=== PATIENT | female | born 1945 ===

== ENCOUNTER 2020-02-24 16:09 | Outpatient (REF) | payer MEDICARE, SELFPAY | END 2020-02-24 16:10 | disposition home or self-care (01) | LOC: HO.LAB 16:09 | PROVIDERS: PCP Internal Medicine; Visit Provider Internal Medicine | DX: Z20.828 Contact with and (suspected) exposure to other viral communicable diseases (principal) | CPT/HCPCS: U0003 ==

== ENCOUNTER 2020-03-01 10:38 | Outpatient (REF) | payer MEDICARE, SELFPAY ==
[2020-03-01 11:53] LABS: MANUAL DIFF FLAG NO
[2020-03-01 12:01] LABS: Basophils Percent Auto 0.2 % (0-2); Eosinophils Absolute Auto 0.1 X10*3/uL (0.0-0.4); Hematocrit 40.3 % (37-47); Hemoglobin 12.7 g/dl (12.0-16.0); Imm Gran Abs Auto 0.02 X10*3/uL (0.00-0.03); Imm Gran Pct Auto 0.4 % (0.0-0.4); Lymphocytes Absolute Auto 1.1 X10*3/uL (1.2-4.9); Lymphocytes Percent Auto 22.3 % (20-40); Mean Corpuscular HGB Conc 31.5 g/dl (31.0-35.0); Mean Corpuscular Hemoglobin 28.8 pg (27.0-33.0); Mean Corpuscular Volume 91.4 fL (80-98); Monocytes Absolute Auto 0.5 X10*3/uL (0.1-1.2); Monocytes Percent Auto 10.5 % (2-11); Neutrophils Absolute Auto 3.2 X10*3/uL (2.0-8.3); Neutrophils Percent Auto 65.6 % (45-73); Platelet Count 231 X10*3/uL (160-400); Red Blood Count 4.41 X10*6/uL (4.20-5.50); Red Cell Distribution Width 14.6 % (11.0-16.0); White Blood Count 4.9 X10*3/uL (4.8-10.8)
[2020-03-01 12:32] LABS: Alanine Aminotransferase 20 U/L (0-31); Albumin Level 4.2 g/dL (3.5-5.0); Alkaline Phosphatase 101 U/L (39-117); Anion Gap 11 (12-20); Aspartate Amino Transferase 21 U/L (5-31); Bilirubin Total 0.3 mg/dL (0.0-1.0); Blood Urea Nitrogen 26 mg/dL (9-16); C Reactive Protein 0.32 mg/dL (< or = 0.50); Calcium 9.2 mg/dL (8.4-10.2); Carbon Dioxide 29 mmol/L (22-29); Chloride 103 mmol/L (96-108); Estimated Glomerular Filt Rate 36; Glucose Random 77 mg/dL (60-115); Potassium 4.9 mmol/l (3.3-5.1); Sodium 138 mmol/L (135-145); Total Protein 7.8 g/dL (6.5-8.0)
[2020-03-01 12:57] LABS: Erythrocyte Sedimentation Rate 30 MM/HR (0-20)
[2020-03-02 11:56] LABS: Complement C3 107 mg/dL (83-193)
[2020-03-02 16:36] LABS: IgA 487 mg/dL (70-320); IgG 1626 mg/dL (600-1540); IgM 116 mg/dL (50-300)
[2020-03-03 08:47] LABS: Prot Elec - Albumin 3.9 g/dL (3.8-4.8); Prot Elec - Alpha1 0.3 g/dL (0.2-0.3); Prot Elec - Alpha2 0.7 g/dL (0.5-0.9); Prot Elec - Beta 1 0.5 g/dL (0.4-0.6); Prot Elec - Beta 2 0.5 g/dL (0.2-0.5); Prot Elec - Gamma 1.5 g/dL (0.8-1.7); Prot Elec - Total Protein 7.3 g/dL (6.1-8.1)
[2020-03-03 09:11] LABS: Anti DNA DS Antibody 3 IU/mL
== END 2020-03-01 10:39 | disposition home or self-care (01) ==
LOC: HO.LAB 10:38
PROVIDERS: PCP Internal Medicine; Visit Provider Student in an Organized Health Care Education/Training Program
DX: M35.00 Sjogren syndrome, unspecified (principal); R76.8 Other specified abnormal immunological findings in serum; I73.00 Raynaud's syndrome without gangrene
CPT/HCPCS: 36415; 80053; 82784; 84155; 84165; 85025; 85652; 86140; 86160; 86225; 86334

== ENCOUNTER → 2020-03-04 09:54 | Outpatient (BNVA) | payer MEDICARE, SELFPAY | PROVIDERS: PCP Internal Medicine; Referring Provider Internal Medicine; Visit Provider Student in an Organized Health Care Education/Training Program | DX: M35.00 Sjogren syndrome, unspecified (principal); R76.8 Other specified abnormal immunological findings in serum; I73.00 Raynaud's syndrome without gangrene | CPT/HCPCS: 99212 ==

== ENCOUNTER 2020-03-12 13:02 | Outpatient (REF) | payer MEDICARE, SELFPAY | END 2020-03-12 13:03 | disposition home or self-care (01) | LOC: HO.LAB 13:02 | PROVIDERS: Visit Provider Internal Medicine | DX: Z20.828 Contact with and (suspected) exposure to other viral communicable diseases (principal) | CPT/HCPCS: C9803; U0003 ==

== ENCOUNTER 2020-03-22 10:27 | Outpatient (REF) | payer MEDICARE, SELFPAY ==
[2020-03-22 11:58] LABS: MANUAL DIFF FLAG NO
[2020-03-22 12:00] LABS: Basophils Percent Auto 0.2 % (0-2); Eosinophils Absolute Auto 0.1 X10*3/uL (0.0-0.4); Hematocrit 38.7 % (37-47); Hemoglobin 12.2 g/dl (12.0-16.0); Imm Gran Abs Auto 0.01 X10*3/uL (0.00-0.03); Imm Gran Pct Auto 0.2 % (0.0-0.4); Lymphocytes Percent Auto 19.6 % (20-40); Mean Corpuscular HGB Conc 31.5 g/dl (31.0-35.0); Mean Corpuscular Hemoglobin 28.6 pg (27.0-33.0); Mean Corpuscular Volume 90.6 fL (80-98); Mean Platelet Volume 11.2 fL (9.4-12.3); Monocytes Absolute Auto 0.5 X10*3/uL (0.1-1.2); Monocytes Percent Auto 9.4 % (2-11); Neutrophils Absolute Auto 3.4 X10*3/uL (2.0-8.3); Neutrophils Percent Auto 69.6 % (45-73); Platelet Count 228 X10*3/uL (160-400); Red Blood Count 4.27 X10*6/uL (4.20-5.50); Red Cell Distribution Width 13.9 % (11.0-16.0); White Blood Count 4.9 X10*3/uL (4.8-10.8)
[2020-03-22 12:24] LABS: Alanine Aminotransferase 15 U/L (0-31); Albumin Level 3.9 g/dL (3.5-5.0); Alkaline Phosphatase 81 U/L (39-117); Anion Gap 13 (12-20); Aspartate Amino Transferase 21 U/L (5-31); Bilirubin Total 0.4 mg/dL (0.0-1.0); Blood Urea Nitrogen 24 mg/dL (9-16); C Reactive Protein 0.32 mg/dL (< or = 0.50); Calcium 9.1 mg/dL (8.4-10.2); Carbon Dioxide 28 mmol/L (22-29); Chloride 102 mmol/L (96-108); Estimated Glomerular Filt Rate 42; Glucose Random 78 mg/dL (60-115); Potassium 4.8 mmol/l (3.3-5.1); Sodium 138 mmol/L (135-145); Total Protein 7.6 g/dL (6.5-8.0)
[2020-03-22 12:48] LABS: Glucose Urine UA NEG (NEG); Leukocyte Esterase Urine NEG (NEG); Nitrite Urine NEG (NEG); Specific Gravity - Urine <= 1.005 (1.005-1.025); Urine Blood NEG (NEG); Urine Ketones NEG (NEG); Urine Protein NEG (NEG-TRACE)
[2020-03-22 12:49] LABS: Appearance Urine CLEAR; Color Urine YELLOW
[2020-03-22 12:56] LABS: Erythrocyte Sedimentation Rate 31 MM/HR (0-20)
[2020-03-22 13:00] LABS: Mucus Urine TRACE /LPF; RBC Urine 0 /HPF (0); Squamous Epithelial Cell Urine 2+ /LPF; WBC Urine 0 /HPF (0-4)
[2020-03-23 12:08] LABS: Complement C3 115 mg/dL (83-193)
[2020-03-23 12:33] LABS: Anti DNA DS Antibody 3 IU/mL
== END 2020-03-22 10:28 | disposition home or self-care (01) ==
LOC: HO.LAB 10:27
PROVIDERS: PCP Internal Medicine; Visit Provider Student in an Organized Health Care Education/Training Program
DX: M35.00 Sjogren syndrome, unspecified (principal)
CPT/HCPCS: 36415; 80053; 81001; 85025; 85652; 86140; 86160; 86225

== ENCOUNTER → 2020-03-25 09:08 | Outpatient (BNVA) | payer MEDICARE, SELFPAY | PROVIDERS: PCP Internal Medicine; Referring Provider Internal Medicine; Visit Provider Student in an Organized Health Care Education/Training Program | DX: M17.11 Unilateral primary osteoarthritis, right knee (principal) | CPT/HCPCS: 20610; 99211 ==

== ENCOUNTER → 2020-06-09 08:39 | Outpatient (BNVA) | payer MEDICARE, SELFPAY | PROVIDERS: PCP Internal Medicine; Referring Provider Internal Medicine; Visit Provider Student in an Organized Health Care Education/Training Program | DX: M35.00 Sjogren syndrome, unspecified (principal); R76.8 Other specified abnormal immunological findings in serum; I73.00 Raynaud's syndrome without gangrene; M70.61 Trochanteric bursitis, right hip | CPT/HCPCS: 20610; 99212 ==

== ENCOUNTER 2020-06-28 10:07 | Outpatient (REF) | payer MEDICARE, SELFPAY ==
[2020-06-28 10:40] LABS: MANUAL DIFF FLAG NO
[2020-06-28 10:57] LABS: Basophils Percent Auto 0.2 % (0-2); Eosinophils Percent Auto 0.6 % (0-4); Hematocrit 39.2 % (37-47); Hemoglobin 12.3 g/dl (12.0-16.0); Imm Gran Abs Auto 0.01 X10*3/uL (0.00-0.03); Imm Gran Pct Auto 0.2 % (0.0-0.4); Lymphocytes Absolute Auto 1.3 X10*3/uL (1.2-4.9); Lymphocytes Percent Auto 24.6 % (20-40); Mean Corpuscular HGB Conc 31.4 g/dl (31.0-35.0); Mean Corpuscular Hemoglobin 28.1 pg (27.0-33.0); Mean Corpuscular Volume 89.5 fL (80-98); Mean Platelet Volume 10.6 fL (9.4-12.3); Monocytes Absolute Auto 0.7 X10*3/uL (0.1-1.2); Monocytes Percent Auto 12.2 % (2-11); Neutrophils Absolute Auto 3.4 X10*3/uL (2.0-8.3); Neutrophils Percent Auto 62.2 % (45-73); Platelet Count 226 X10*3/uL (160-400); Red Blood Count 4.38 X10*6/uL (4.20-5.50); Red Cell Distribution Width 13.7 % (11.0-16.0); White Blood Count 5.4 X10*3/uL (4.8-10.8)
[2020-06-28 11:59] LABS: Erythrocyte Sedimentation Rate 30 MM/HR (0-20)
[2020-06-28 12:16] LABS: Alanine Aminotransferase 17 U/L (0-31); Albumin Level 4.1 g/dL (3.5-5.0); Alkaline Phosphatase 104 U/L (39-117); Anion Gap 12 (12-20); Aspartate Amino Transferase 19 U/L (5-31); Bilirubin Total 0.4 mg/dL (0.0-1.0); Blood Urea Nitrogen 26 mg/dL (9-16); C Reactive Protein 0.17 mg/dL (< or = 0.50); Calcium 9.4 mg/dL (8.4-10.2); Carbon Dioxide 29 mmol/L (22-29); Chloride 101 mmol/L (96-108); Estimated Glomerular Filt Rate 39; Glucose Random 76 mg/dL (60-115); Potassium 5.3 mmol/L (3.3-5.1); Sodium 137 mmol/L (135-145); Total Protein 7.7 g/dL (6.5-8.0)
== END 2020-06-28 10:08 | disposition home or self-care (01) ==
LOC: HO.LAB 10:07
PROVIDERS: PCP Internal Medicine; Visit Provider Student in an Organized Health Care Education/Training Program
DX: M35.00 Sjogren syndrome, unspecified (principal)
CPT/HCPCS: 36415; 80053; 85025; 85652; 86140

== ENCOUNTER → 2020-06-29 12:04 | Outpatient (BNVA) | payer MEDICARE, SELFPAY | PROVIDERS: PCP Internal Medicine; Visit Provider Internal Medicine Cardiovascular Disease | DX: I10 Essential (primary) hypertension (principal); I49.1 Atrial premature depolarization; Z79.899 Other long term (current) drug therapy | CPT/HCPCS: 99212 ==

== ENCOUNTER 2020-09-08 11:26 | Outpatient (REF) | payer MEDICARE, SELFPAY | END 2020-09-08 11:27 | disposition home or self-care (01) | LOC: HO.LAB 11:26 | PROVIDERS: Visit Provider Internal Medicine | DX: Z20.822 Contact with and (suspected) exposure to COVID-19 (principal) | CPT/HCPCS: C9803; U0003; U0005 ==

== ENCOUNTER 2020-10-18 06:42 | Day surgery (SDC) | payer MEDICARE, SELFPAY ==
[2020-10-11 14:37] VITALS: BMI 34.8
--- NOTE | 2020-10-14 07:46 | MHC.SHP ---
Pre-Procedural Eval Section A The patient is an INPATIENT: No The History & Physical has been completed within 30 days and I have reviewed it.: Yes Section B Chief Complaint: Cataract Left eye Allergies: Allergies Allergy/AdvReac Type Severity Reaction Status Date / Time Penicillins [PENICILLINS] Allergy Intermediate rash Verified 10/12/20 08:43 senna Allergy Intermediate rash Verified 10/12/20 08:43 amoxicillin Allergy Hives Verified 10/12/20 08:43 lisinopril Allergy Swelling Verified 10/12/20 08:43 hydroxychloroquine AdvReac Blurry Verified 10/12/20 08:43 [From Plaquenil] Vision Plan Diagnosis/Plan: Unchanged I have reviewed the history and physical and performed a pertinent physical examination on my patient. No changes have occurred unless specified.
--- NOTE | 2020-10-18 07:30 | HO.ANESPROP2 ---
[facility] Active Problems Active Problems: All Active Problems (Updated 10/12/20 @ 08:28 by Shyla Orellana) Sjogrens syndrome (Acute) Primary osteoarthritis of right knee (Acute) Trochanteric bursitis, right hip (Acute) PAC (premature atrial contraction) (Acute) HTN (hypertension) (Acute) Past Medical History Medical History (Updated 10/12/20 @ 08:28 by Shyla Orellana) SAMARA positive Breast cancer CKD (chronic kidney disease) Connective tissue disease COVID-19 vaccine series completed GERD (gastroesophageal reflux disease) HTN (hypertension) Hypothyroid Interstitial lung disease Osteoarthritis Osteopenia PAC (premature atrial contraction) Raynauds disease Sjogrens syndrome Family History Family History Father Cancer Emphysema of lung Brother Emphysema of lung Mother Arthritis Bone cancer Surgical History Surgical History (Updated 10/12/20 @ 08:28 by Shyla Orellana) H/O lumpectomy History of back surgery Hx of cholecystectomy Social History Social History Are you a primary acute care nursing assistant to a significant other at home: No Do you presently have visiting nurse or other home services: No Alcohol intake: never Patient Tobacco Use Status: Never used Tobacco Use of substances other than those prescribed or required for medical reasons: No Have you been hit, kicked, punched, or otherwise hurt by someone within the past year? If so, by whom?: No Are you DNR?: No Advance Directives: No Advance Directives Information Provided: No Advance Directives on File: No Recently lost weight without trying: No Eating poorly because of decreased appetite: No Nutrition Risks: No Nutritional Risk Patient : No Meds Allergies Allergy/AdvReac Type Severity Reaction Status Date / Time Penicillins [PENICILLINS] Allergy Intermediate rash Verified 10/12/20 08:43 senna Allergy Intermediate rash Verified 10/12/20 08:43 amoxicillin Allergy Hives Verified 10/12/20 08:43 lisinopril Allergy Swelling Verified 10/12/20 08:43 hydroxychloroquine AdvReac Blurry Verified 10/12/20 08:43 [From Plaquenil] Vision Active Medications: Current Medications Generic Name Dose Route Start Last Admin Trade Name Freq PRN Reason Stop Dose Admin Povidone Iodine 1 appl 10/18/20 07:06 Povidone Iodine 5 % Ophth Soln 30 Ml Bottle EYE-LEFT PREOP PRN Pre-Op Surgical Implant Prophy Home Medications Medication Instructions Recorded Confirmed Last Taken Type amlodipine 10 mg tablet 10 mg PO DAILY 03/04/20 10/11/20 Unknown History bisacodyl 5 mg tablet,delayed 5 mg PO BEDTIME 03/04/20 10/11/20 Unknown History release calcitriol 0.5 mcg capsule 0.5 mcg PO 3XW 03/04/20 10/11/20 Unknown History docusate sodium 100 mg capsule 100 mg PO BID 03/04/20 10/11/20 Unknown History folic acid 1 mg tablet 1 mg PO DAILY 03/04/20 10/11/20 Unknown History levothyroxine 125 mcg tablet 125 mcg PO DAILY 03/04/20 10/11/20 Unknown History omeprazole 20 mg capsule,delayed 20 mg PO DAILY 03/04/20 10/11/20 Unknown History release spironolactone 25 mg tablet 25 mg PO DAILY 06/29/20 10/11/20 Unknown History Exam Exam Date and Time: October 18, 2020 0730 Height,Weight and Vital Signs: Height 5 ft 10 in Weight 110.223 kg Airway Mallampati Class: II TM Dist: >3cm Denture: Upper Partial: Upper Heart: rrr Lungs: cta Assessment and Plan Assessment Anesthesia Assessment: Anesthesia Plan Discussed and Chart Reviewed Final Anesthetic Review NPO: Yes ASA Class: III Final Preanesthetic Review: No Changes in Pt Med Stat and Consent Obtained/Reviewed Patient Risk: Intermediate Procedure Risk: Intermediate Anesthetic Plan Anesthetic Plan: MAC: Disposition: Standard PACU
[2020-10-18 07:31] VITALS: BP 151/51; PULSE 64; RESP 16; TEMP 36.4; O2SAT 98
[2020-10-18] MEDS: Tetracaine HCl/PF 0.5% Oph Sol 4 ML DROPS 1 DROP EYE-LEFT (07:44)
[2020-10-18] MEDS: Tropicamide 1 % Ophth Sol 3 ML BTL 1 DROP EYE-LEFT ×3 (07:46→07:53)
[2020-10-18] MEDS: Phenylephrine HCL 2.5% Oph SoL 2 ML BOTTLE 1 DROP EYE-LEFT ×3 (07:48→07:55)
[2020-10-18] MEDS: Lactated Ringers 500 ML 50 ML IV (07:56)
--- NOTE | 2020-10-18 08:51 | HO.PNOPHT ---
Ophthalmology Procedure Procedure Date of Service: 10/18/20 Ophthalmology Viscoelastic: Healon Duet Dual Pack Pro Ophthalmology Lenses: TECSHAYY [id number] (22) Procedure Notes: PREOPERATIVE DIAGNOSIS: Decreased visual acuity left eye secondary to cataract POSTOPERATIVE DIAGNOSIS: Same PROCEDURE: Left cataract extraction with intraocular lens insertion SURGEON: Angus Jennings M.D. ANESTHESIA: Topical/MAC ESTIMATED BLOOD LOSS: None COMPLICATIONS: None After obtaining informed consent, the patient was brought to the operation room suite and placed in the supine position. After adequate sedation per anesthesia, topical drops of Tetracaine were given to the left eye. The eye was then prepped and draped in the usual sterile fashion. The operating room microscope was then positioned over the operative eye and a lid speculum placed. A paracentesis was created. Viscoelastic was then instilled into the anterior chamber. A three plane incision was then created temporally, utilizing a 2.85 mm keratome. Capsulotomy forceps were then utilized to create a circular tear capsulotomy. Hydrodissection and hydrodelineation were carried out until adequate mobilization of the nucleus occurred. Phacoemulsification was then utilized to remove the dense central nucleus followed by removal of the cortical material utilizing the automated aspiration irrigation unit. Viscoat elastic was instilled into the posterior capsular bag followed by placement of a posterior chamber intraocular lens without difficulty. The residual Viscoat elastic was then removed utilizing the automated IA machine. The wound was check and found to be watertight. The patient tolerated the procedure well and the lid speculum was removed. Intracameral injection of Vigamox 0.1 mL followed by a subtenon injection of Kenalog-40 0.2 mL were administered. The patient will be seen in the a.m.
[2020-10-18 09:21] VITALS: BP 164/60; PULSE 53; RESP 16; TEMP 36.2; O2SAT 98
[2020-10-18] MEDS: Acetaminophen 325 MG TABLET 650 MG PO (09:25)
== END 2020-10-18 09:29 | disposition home or self-care (01) ==
PROVIDERS: PCP Internal Medicine; Visit Provider Ophthalmology
PROC: (CPT 66985; principal; 2020-10-18 08:40)
DX: H25.12 Age-related nuclear cataract, left eye (principal); H52.4 Presbyopia; I10 Essential (primary) hypertension; E03.9 Hypothyroidism, unspecified; M06.9 Rheumatoid arthritis, unspecified; C50.912 Malignant neoplasm of unspecified site of left female breast; Z79.810 Long term (current) use of selective estrogen receptor modulators (SERMs); Z79.899 Other long term (current) drug therapy; Z88.0 Allergy status to penicillin
CPT/HCPCS: 66984; J2250; J3010; J3300; V2632

== ENCOUNTER 2020-10-22 15:30 | Outpatient (REF) | payer MEDICARE, SELFPAY ==
[2020-10-22 16:33] LABS: MANUAL DIFF FLAG NO
[2020-10-22 16:37] LABS: Basophils Percent Auto 0.2 % (0-2); Eosinophils Absolute Auto 0.1 X10*3/uL (0.0-0.4); Eosinophils Percent Auto 1.4 % (0-4); Hematocrit 36.9 % (37-47); Hemoglobin 11.8 g/dl (12.0-16.0); Imm Gran Abs Auto 0.02 X10*3/uL (0.00-0.03); Imm Gran Pct Auto 0.4 % (0.0-0.4); Lymphocytes Absolute Auto 1.3 X10*3/uL (1.2-4.9); Lymphocytes Percent Auto 27.2 % (20-40); Mean Corpuscular Hemoglobin 28.9 pg (27.0-33.0); Mean Corpuscular Volume 90.2 fL (80-98); Mean Platelet Volume 10.6 fL (9.4-12.3); Monocytes Absolute Auto 0.5 X10*3/uL (0.1-1.2); Monocytes Percent Auto 9.5 % (2-11); Neutrophils Percent Auto 61.3 % (45-73); Platelet Count 225 X10*3/uL (160-400); Red Blood Count 4.09 X10*6/uL (4.20-5.50); Red Cell Distribution Width 13.6 % (11.0-16.0); White Blood Count 4.9 X10*3/uL (4.8-10.8)
[2020-10-22 16:47] LABS: Glucose Urine UA NEG (NEG); Leukocyte Esterase Urine 1+ (NEG); Nitrite Urine NEG (NEG); Specific Gravity - Urine <= 1.005 (1.005-1.025); Urine Blood NEG (NEG); Urine Ketones NEG (NEG); Urine Protein NEG (NEG-TRACE)
[2020-10-22 16:48] LABS: Appearance Urine CLEAR; Color Urine YELLOW
[2020-10-22 16:55] LABS: Bacteria Urine TRACE /LPF; RBC Urine 0-2 /HPF (0); Squamous Epithelial Cell Urine TRACE /LPF
[2020-10-22 17:06] LABS: Alanine Aminotransferase 39 U/L (0-31); Albumin Level 4.1 g/dL (3.5-5.0); Alkaline Phosphatase 97 U/L (39-117); Anion Gap 12 (12-20); Aspartate Amino Transferase 31 U/L (5-31); Bilirubin Total 0.4 mg/dL (0.0-1.0); Blood Urea Nitrogen 27 mg/dL (9-16); C Reactive Protein 0.19 mg/dL (< or = 0.50); Calcium 9.7 mg/dL (8.4-10.2); Carbon Dioxide 29 mmol/L (22-29); Chloride 100 mmol/L (96-108); Estimated Glomerular Filt Rate 44; Glucose Random 78 mg/dL (60-115); Potassium 5.3 mmol/L (3.3-5.1); Sodium 136 mmol/L (135-145); Total Protein 8.1 g/dL (6.5-8.0)
[2020-10-22 17:15] LABS: Erythrocyte Sedimentation Rate 40 MM/HR (0-20)
[2020-10-26 10:42] LABS: Complement C3 61 mg/dL (83-193)
[2020-10-27 15:27] LABS: Anti DNA DS Antibody 4 IU/mL
== END 2020-10-22 15:31 | disposition home or self-care (01) ==
LOC: HO.LAB 15:30
PROVIDERS: PCP Internal Medicine; Visit Provider Student in an Organized Health Care Education/Training Program
DX: M35.00 Sjogren syndrome, unspecified (principal); Z79.899 Other long term (current) drug therapy; R76.8 Other specified abnormal immunological findings in serum; I73.00 Raynaud's syndrome without gangrene; M54.41 Lumbago with sciatica, right side
CPT/HCPCS: 36415; 80053; 81001; 85025; 85652; 86140; 86160; 86225; 99212

== ENCOUNTER → 2020-11-01 07:44 | Day surgery (SDC) | payer MEDICARE, SELFPAY ==
[2020-10-11 14:42] VITALS: BMI 34.8
--- NOTE | 2020-10-28 07:43 | MHC.SHP ---
Pre-Procedural Eval Section A Date of Service: 10/28/20 The patient is an INPATIENT: No The History & Physical has been completed within 30 days and I have reviewed it.: Yes Section B Chief Complaint: Cataract Right Eye Allergies: Allergies Allergy/AdvReac Type Severity Reaction Status Date / Time Penicillins [PENICILLINS] Allergy Intermediate rash Verified 10/22/20 15:34 senna Allergy Intermediate rash Verified 10/22/20 15:34 amoxicillin Allergy Hives Verified 10/22/20 15:34 lisinopril Allergy Swelling Verified 10/22/20 15:34 hydroxychloroquine AdvReac Blurry Verified 10/22/20 15:34 [From Plaquenil] Vision Plan Diagnosis/Plan: Unchanged I have reviewed the history and physical and performed a pertinent physical examination on my patient. No changes have occurred unless specified.
--- NOTE | 2020-10-29 09:54 | P.CONAN_ITS ---
Documented by User: Dawn Trammell 10/29/20 10:05 HPI - Anesthesia Eval Consult details Narrative: 75yo F for Right Cataract Extraction IOL Insertion PCP cleared Left eye 10/18: Fent 25, Midaz 1 PMFSH Active Problems Active Problems: All Active Problems (Updated 10/22/20 @ 15:38 by Barb Parry MD) Low back pain with right-sided sciatica (Acute) Sjogrens syndrome (Acute) Primary osteoarthritis of right knee (Acute) Trochanteric bursitis, right hip (Acute) PAC (premature atrial contraction) (Acute) HTN (hypertension) (Acute) Past Medical History Medical History SAMARA positive Breast cancer CKD (chronic kidney disease) Connective tissue disease COVID-19 vaccine series completed GERD (gastroesophageal reflux disease) HTN (hypertension) Hypothyroid Interstitial lung disease Osteoarthritis Osteopenia PAC (premature atrial contraction) Raynauds disease Sjogrens syndrome Family History Family History Father Cancer Emphysema of lung Brother Emphysema of lung Mother Arthritis Bone cancer Surgical History Surgical History H/O lumpectomy History of back surgery Hx of cholecystectomy Social History Social History Are you a primary childcare provider to a significant other at home: No Do you presently have visiting nurse or other home services: No Alcohol intake: never Patient Tobacco Use Status: Never used Tobacco Use of substances other than those prescribed or required for medical reasons: No Have you been hit, kicked, punched, or otherwise hurt by someone within the past year? If so, by whom?: No Are you DNR?: No Advance Directives: No Advance Directives Information Provided: No Advance Directives on File: No Recently lost weight without trying: No Eating poorly because of decreased appetite: No Nutrition Risks: No Nutritional Risk Patient : No Meds Allergies Allergy/AdvReac Type Severity Reaction Status Date / Time Penicillins [PENICILLINS] Allergy Intermediate rash Verified 10/22/20 15:34 senna Allergy Intermediate rash Verified 10/22/20 15:34 amoxicillin Allergy Hives Verified 10/22/20 15:34 lisinopril Allergy Swelling Verified 10/22/20 15:34 hydroxychloroquine AdvReac Blurry Verified 10/22/20 15:34 [From Plaquenil] Vision Home Medications Medication Instructions Recorded Confirmed Last Taken Type amlodipine 10 mg tablet 10 mg PO DAILY 03/04/20 10/11/20 11/01/20 History bisacodyl 5 mg tablet,delayed 5 mg PO BEDTIME 03/04/20 10/11/20 Unknown History release calcitriol 0.5 mcg capsule 0.5 mcg PO 3XW 03/04/20 10/11/20 Unknown History docusate sodium 100 mg capsule 100 mg PO BID 03/04/20 10/11/20 Unknown History folic acid 1 mg tablet 1 mg PO DAILY 03/04/20 10/11/20 Unknown History levothyroxine 125 mcg tablet 125 mcg PO DAILY 03/04/20 10/11/20 Unknown History omeprazole 20 mg capsule,delayed 20 mg PO DAILY 03/04/20 10/11/20 11/01/20 History release spironolactone 25 mg tablet 25 mg PO DAILY 06/29/20 10/11/20 Unknown History Exam Exam Date and Time: October 29, 2020 0954 Height,Weight and Vital Signs: Height 5 ft 10 in Weight 110.223 kg Assessment and Plan Assessment Anesthesia Assessment: Chart Reviewed Documented by User: Drake Chow 11/01/20 09:01 [facility] Past Medical History Medical History SAMARA positive Breast cancer CKD (chronic kidney disease) Connective tissue disease COVID-19 vaccine series completed GERD (gastroesophageal reflux disease) HTN (hypertension) Hypothyroid Interstitial lung disease Osteoarthritis Osteopenia PAC (premature atrial contraction) Raynauds disease Sjogrens syndrome Family History Family History Father Cancer Emphysema of lung Brother Emphysema of lung Mother Arthritis Bone cancer Surgical History Surgical History H/O lumpectomy History of back surgery Hx of cholecystectomy Social History Social History Are you a primary childcare provider to a significant other at home: No Do you presently have visiting nurse or other home services: No Alcohol intake: never Patient Tobacco Use Status: Never used Tobacco Use of substances other than those prescribed or required for medical reasons: No Have you been hit, kicked, punched, or otherwise hurt by someone within the past year? If so, by whom?: No Are you DNR?: No Advance Directives: No Advance Directives Information Provided: No Advance Directives on File: No Recently lost weight without trying: No Eating poorly because of decreased appetite: No Nutrition Risks: No Nutritional Risk Patient : No Meds Allergies Allergy/AdvReac Type Severity Reaction Status Date / Time Penicillins [PENICILLINS] Allergy Intermediate rash Verified 10/22/20 15:34 senna Allergy Intermediate rash Verified 10/22/20 15:34 amoxicillin Allergy Hives Verified 10/22/20 15:34 lisinopril Allergy Swelling Verified 10/22/20 15:34 hydroxychloroquine AdvReac Blurry Verified 10/22/20 15:34 [From Plaquenil] Vision Home Medications Medication Instructions Recorded Confirmed Last Taken Type amlodipine 10 mg tablet 10 mg PO DAILY 03/04/20 10/11/20 11/01/20 History bisacodyl 5 mg tablet,delayed 5 mg PO BEDTIME 03/04/20 10/11/20 Unknown History release calcitriol 0.5 mcg capsule 0.5 mcg PO 3XW 03/04/20 10/11/20 Unknown History docusate sodium 100 mg capsule 100 mg PO BID 03/04/20 10/11/20 Unknown History folic acid 1 mg tablet 1 mg PO DAILY 03/04/20 10/11/20 Unknown History levothyroxine 125 mcg tablet 125 mcg PO DAILY 03/04/20 10/11/20 Unknown History omeprazole 20 mg capsule,delayed 20 mg PO DAILY 03/04/20 10/11/20 11/01/20 History release spironolactone 25 mg tablet 25 mg PO DAILY 06/29/20 10/11/20 Unknown History Exam Airway Mallampati Class: II TM Dist: >3cm Neck ROM: Full Partial: Upper and Lower Heart: rrr+[id number] Lungs: cta b/l Assessment and Plan Assessment Anesthesia Assessment: Anesthesia Plan Discussed, PAT Visit and Chart Reviewed Final Anesthetic Review NPO: Yes ASA Class: III Final Preanesthetic Review: No Changes in Pt Med Stat, Meds/Allgs Chart Reviewed, Consent Obtained/Reviewed and Anes Risks/Benef Reviewed Patient Risk: Intermediate Procedure Risk: Low Assessment/Block/Sedation in SS: Assess/Block/Sedation-SS Anesthetic Plan Anesthetic Plan: MAC: and Agree w/ Assess. and Plan Disposition: Standard PACU
[2020-11-01 08:51] VITALS: BP 164/75; PULSE 58; RESP 18; TEMP 36.6; O2SAT 96
[2020-11-01] MEDS: Tetracaine HCl/PF 0.5% Oph Sol 4 ML DROPS 1 DROP EYE-RIGHT (08:54)
[2020-11-01] MEDS: Phenylephrine HCL 2.5% Oph SoL 2 ML BOTTLE 1 DROP EYE-RIGHT ×3 (08:54→08:56)
[2020-11-01] MEDS: Tropicamide 1 % Ophth Sol 3 ML BTL 1 DROP EYE-RIGHT ×3 (08:54→08:56)
[2020-11-01] MEDS: Lactated Ringers 500 ML 50 ML IV (08:57)
--- NOTE | 2020-11-01 10:30 | P.PCNO_ITS ---
Ophthalmology Procedure Procedure Date of Service: 11/01/20 Ophthalmology Viscoelastic: Healon Duet Dual Pack Pro Ophthalmology Lenses: TECSHAYY [id number] (22) Procedure Notes: PREOPERATIVE DIAGNOSIS: Decreased visual acuity right eye secondary to cataract POSTOPERATIVE DIAGNOSIS: Same PROCEDURE: Right cataract extraction with intraocular lens insertion and Vitrectomy SURGEON: Angus Jennings M.D. ANESTHESIA: Topical/MAC ESTIMATED BLOOD LOSS: None COMPLICATIONS: Capsular Rupture After obtaining informed consent, the patient was brought to the operating room suite and placed in the supine position. After adequate sedation per anesthesia, topical drops of Tetracaine were given to the right eye. The eye was then prepped and draped in the usual sterile fashion. The operating room microscope was then positioned over the operative eye and a lid speculum placed. A paracentesis was created. Viscoelastic was then instilled into the anterior chamber. A three plane incision was then created temporally, utilizing a 2.85 mm keratome. Capsulotomy forceps were then utilized to create a circular tear capsulotomy. Hydrodissection and hydrodelineation were carried out until adequate mobilization of the nucleus occurred. Phacoemulsification was then utilized to remove the dense central nucleus. A Capsular Rupture was moted. Phacoemulsafication was halted. Viscoaelastic weas placed and the nuclus was noted to be unstable. Lidocaine was given subcon junctivally followed by creating a sclerostomy 2.5 mm posterior to the limbus. The vitrector was used to remove the remaining lens material.Viscoelastic was instilled ifollowed by placement of a posterior chamber intraocular lens into the sulcus.The residual Viscoelastic was then removed utilizing the vitrector.machine. The wound was checked and found to be watertight. The sclerostomy and conunctiva was closed with 9-0 Vicryl suture.The patient tolerated the procedure well and the lid speculum was removed. Intracameral injection of Vigamox 0.1 mL followed by a subtenon injection of Kenalog-40 0.2 mL were administered. The patient will be seen in the a.m.
[2020-11-01 11:51] VITALS: BP 149/57; PULSE 53; RESP 16; TEMP 36.3; O2SAT 98
[2020-11-01 12:05] VITALS: BP 157/55; PULSE 51; RESP 16; O2SAT 98
[2020-11-01] MEDS: Acetaminophen 325 MG TABLET 650 MG PO (12:06)
== END | disposition home or self-care (01) ==
PROVIDERS: PCP Internal Medicine; Visit Provider Ophthalmology
PROC: (CPT 66985; principal; 2020-11-01 10:30)
DX: H25.11 Age-related nuclear cataract, right eye (principal); H59.211 Accidental puncture and laceration of right eye and adnexa during an ophthalmic procedure; H54.7 Unspecified visual loss; I12.9 Hypertensive chronic kidney disease with stage 1 through stage 4 chronic kidney disease, or unspecified chronic kidney disease; N18.30 Chronic kidney disease, stage 3 unspecified; I49.1 Atrial premature depolarization; E03.9 Hypothyroidism, unspecified; M19.90 Unspecified osteoarthritis, unspecified site; M35.00 Sjogren syndrome, unspecified; I73.00 Raynaud's syndrome without gangrene; Z79.899 Other long term (current) drug therapy; Z88.0 Allergy status to penicillin; Z88.8 Allergy status to other drugs, medicaments and biological substances; Y65.8 Other specified misadventures during surgical and medical care; Y92.234 Operating room of hospital as the place of occurrence of the external cause
CPT/HCPCS: 66984; 67036; J3010; J3300; V2632

== ENCOUNTER → 2020-11-15 12:59 | Outpatient (BNVA) | payer MEDICARE, SELFPAY | PROVIDERS: PCP Internal Medicine; Visit Provider Internal Medicine | DX: M54.41 Lumbago with sciatica, right side (principal) | CPT/HCPCS: 99202 ==

== ENCOUNTER → 2020-12-17 11:36 | Outpatient (BNVA) | payer MEDICARE, SELFPAY | PROVIDERS: PCP Internal Medicine; Visit Provider Internal Medicine | DX: M96.1 Postlaminectomy syndrome, not elsewhere classified (principal) | CPT/HCPCS: 99212 ==

== ENCOUNTER 2021-01-12 06:41 | Outpatient (REF) | payer MEDICARE, SELFPAY ==
--- NOTE | ~2021-01-12 | FL_ITS ---
EXAMINATION: XR FLUOROSCOPY WITH IMAGES CLINICAL INFORMATION: Post laminectomy syndrome. COMPARISON: None TECHNIQUE: Fluoroscopy performed by Taylor Swain. Fluoroscopy time: 0.7 minutes DAP: 8.17 Gycm2 Images: 5 FINDINGS: There is a needle placement along the posterior sacral foramina with a tiny catheter extending into the right epidural space and opacity in the right S1 and S2 epidural space along the nerve root. There is extension of contrast in the right L5 -S1 epidural space. FL/FL guidance in treatment room IMPRESSION: Fluoroscopy was provided to the referring physician for pain management.
== END 2021-01-12 06:42 | disposition home or self-care (01) ==
LOC: HO.RADIR 06:41
PROVIDERS: Visit Provider Internal Medicine
DX: M96.1 Postlaminectomy syndrome, not elsewhere classified (principal); M54.41 Lumbago with sciatica, right side
CPT/HCPCS: 62323; J1040; Q9967

== ENCOUNTER → 2021-02-11 09:05 | Outpatient (BNVA) | payer MEDICARE, SELFPAY | PROVIDERS: PCP Internal Medicine; Visit Provider Internal Medicine | DX: M96.1 Postlaminectomy syndrome, not elsewhere classified (principal); M85.80 Other specified disorders of bone density and structure, unspecified site; I12.9 Hypertensive chronic kidney disease with stage 1 through stage 4 chronic kidney disease, or unspecified chronic kidney disease; I73.00 Raynaud's syndrome without gangrene; M35.00 Sjogren syndrome, unspecified | CPT/HCPCS: 99212 ==

== ENCOUNTER 2021-03-16 06:04 | Outpatient (REF) | payer MEDICARE, SELFPAY ==
--- NOTE | ~2021-03-16 | FL_ITS ---
EXAMINATION: XR FLUOROSCOPY WITH IMAGES CLINICAL INFORMATION: M54.41 - Lumbago with sciatica, right side COMPARISON: Outside MR lumbar spine 12/09/2020 ([facility]). TECHNIQUE: Fluoroscopy performed by Dr. Jon Deluna. Fluoroscopy time: 0.6 minutes DAP: 5.56 Gycm2 Images: 1 FINDINGS: There there is a spinal needle overlying the outer right L4 neural foramen. There is contrast seen in the respective nerve sheath along with transforaminal epidural extension. No visible vascular communication. There are degenerative changes lumbosacral spine with multilevel vertebral spurring. Disc narrowing present L4-L5 and L5-S1. FL/FL guidance in treatment room IMPRESSION: Fluoroscopy for pain management procedures.
== END 2021-03-16 06:05 | disposition home or self-care (01) ==
LOC: HO.RADIR 06:04
PROVIDERS: Visit Provider Internal Medicine
DX: M54.41 Lumbago with sciatica, right side (principal); Z79.899 Other long term (current) drug therapy
CPT/HCPCS: 64483; J1100; Q9967

== ENCOUNTER → 2021-05-09 15:19 | Outpatient (BNVA) | payer MEDICARE, SELFPAY | PROVIDERS: PCP Internal Medicine; Visit Provider Internal Medicine | DX: M96.1 Postlaminectomy syndrome, not elsewhere classified (principal); Z98.890 Other specified postprocedural states | CPT/HCPCS: 99212 ==

== ENCOUNTER 2021-05-10 13:16 | Outpatient (REF) | payer MEDICARE, SELFPAY ==
[2021-05-10 15:53] LABS: Binax Now Covid-19 Ag Negative (Negative)
[2021-05-10 15:54] LABS: Binax Internal Control QC Valid
== END 2021-05-10 13:17 | disposition home or self-care (01) ==
LOC: HO.LAB 13:16
PROVIDERS: Visit Provider Internal Medicine
DX: Z20.822 Contact with and (suspected) exposure to COVID-19 (principal)
CPT/HCPCS: C9803

== ENCOUNTER 2021-06-22 06:02 | Outpatient (REF) | payer MEDICARE, SELFPAY ==
--- NOTE | ~2021-06-22 | FL_ITS ---
EXAMINATION: XR FLUOROSCOPY WITH IMAGES CLINICAL INFORMATION: Right-sided pain post laminectomy syndrome. COMPARISON: 03/16/2021 TECHNIQUE: Fluoroscopy performed by Dr. Kate Mckinney Fluoroscopy time: 0.4 minutes DAP: 6.06 Gy-cm2 Images: 5 FINDINGS: Needle placement for what appears to be foraminal epidural injection is seen at L4 and L5. Contrast injected appears to be in the epidural space. FL/FL guidance in treatment room IMPRESSION: Spot films and fluoroscopy provided for pain management procedure. Please see the full operative report of Dr. Kate Mckinney for details.
== END 2021-06-22 06:03 | disposition home or self-care (01) ==
LOC: HO.RADIR 06:02
PROVIDERS: Visit Provider Internal Medicine
DX: M47.816 Spondylosis without myelopathy or radiculopathy, lumbar region (principal); M54.41 Lumbago with sciatica, right side; M96.1 Postlaminectomy syndrome, not elsewhere classified
CPT/HCPCS: 64493; 64494; Q9967

== ENCOUNTER → 2021-06-24 10:52 | Outpatient (BNVA) | payer MEDICARE, SELFPAY | PROVIDERS: PCP Internal Medicine; Visit Provider Internal Medicine | DX: M47.816 Spondylosis without myelopathy or radiculopathy, lumbar region (principal) | CPT/HCPCS: 99212 ==

== ENCOUNTER → 2021-07-04 10:06 | Outpatient (BNVA) | payer MEDICARE, SELFPAY | PROVIDERS: PCP Internal Medicine; Referring Provider Internal Medicine; Visit Provider Internal Medicine Cardiovascular Disease | DX: I49.1 Atrial premature depolarization (principal); I10 Essential (primary) hypertension | CPT/HCPCS: 93005; 99212 ==

== ENCOUNTER 2021-08-31 06:01 | Outpatient (REF) | payer OTHER, SELFPAY ==
--- NOTE | ~2021-08-31 | FL_ITS ---
EXAMINATION: XR FLUOROSCOPY WITH IMAGES CLINICAL INFORMATION: M47.816 - Spondylosis without myelopathy or radiculopathy COMPARISON: Fluoroscopic spot views 06/22/2021 TECHNIQUE: Fluoroscopy performed by Dr. Jon Deluna. Fluoroscopy time: 0.2 minutes DAP: 2.63 Gycm2 Images: 2 FINDINGS: There are spinal needles overlying the outer right L3, L4, and L5 neural foramen. There is contrast seen in the respective nerve sheaths. Some early transforaminal epidural extension is suggested. No visible vascular communication. There are multilevel degenerative disc changes and vertebral body spurring again seen. FL/FL guidance in treatment room IMPRESSION: Fluoroscopy for pain management procedures.
== END 2021-08-31 06:02 | disposition home or self-care (01) ==
LOC: HO.RADIR 06:01
PROVIDERS: Visit Provider Internal Medicine
DX: M47.816 Spondylosis without myelopathy or radiculopathy, lumbar region (principal)
CPT/HCPCS: 64493; 64494; J2795; Q9967

== ENCOUNTER → 2021-09-05 11:25 | Outpatient (BNVA) | payer OTHER, SELFPAY | PROVIDERS: PCP Internal Medicine; Visit Provider Internal Medicine | DX: Z48.89 Encounter for other specified surgical aftercare (principal); M96.1 Postlaminectomy syndrome, not elsewhere classified | CPT/HCPCS: 99212 ==

== ENCOUNTER 2022-02-20 08:29 | Outpatient (REF) | payer OTHER, SELFPAY ==
[2022-02-20 08:44] LABS: MANUAL DIFF FLAG NO
[2022-02-20 09:18] LABS: Basophils Percent Auto 0.2 % (0-2); Eosinophils Absolute Auto 0.1 X10*3/uL (0.0-0.4); Eosinophils Percent Auto 2.3 % (0-4); Hemoglobin 11.7 g/dl (12.0-16.0); Imm Gran Abs Auto 0.02 X10*3/uL (0.00-0.03); Imm Gran Pct Auto 0.4 % (0.0-0.4); Lymphocytes Absolute Auto 1.3 X10*3/uL (1.2-4.9); Lymphocytes Percent Auto 27.6 % (20-40); Mean Corpuscular HGB Conc 31.6 g/dl (31.0-35.0); Mean Corpuscular Hemoglobin 28.1 pg (27.0-33.0); Mean Corpuscular Volume 88.7 fL (80.0-98.0); Mean Platelet Volume 10.3 fL (9.4-12.3); Monocytes Absolute Auto 0.4 X10*3/uL (0.1-1.2); Neutrophils Percent Auto 61.5 % (45-73); Platelet Count 297 X10*3/uL (160-400); Red Blood Count 4.17 X10*6/uL (4.20-5.50); Red Cell Distribution Width 14.5 % (11.0-16.0); White Blood Count 4.9 X10*3/uL (4.8-10.8)
[2022-02-20 09:23] LABS: Appearance Urine Clear; Color Urine Yellow; Glucose Urine UA Negative (Negative); Leukocyte Esterase Urine Moderate (2+) (Negative); Nitrite Urine Negative (Negative); PH 5.5 (5.0-9.0); Specific Gravity - Urine 1.015 (1.005-1.025); UMIC TRIGGER UACC YES; Urine Blood Negative (Negative); Urine Ketones Negative (Negative); Urine Protein Negative (Neg-Trace)
[2022-02-20 09:26] LABS: Estimated Average Glucose 108 mg/dL; Hemoglobin A1c % 5.4 %
[2022-02-20 09:35] LABS: Bacteria Urine None Seen (None Seen); Hyaline Casts Urine 0-2 /LPF (0-2); RBC Urine 0-2 /HPF (0-2); UACC Culture Trigger YES
[2022-02-20 09:57] LABS: Alanine Aminotransferase 13 U/L (0-31); Alkaline Phosphatase 97 U/L (39-117); Anion Gap 15 (12-20); Aspartate Amino Transferase 20 U/L (5-31); Bilirubin Total 0.3 mg/dL (0.0-1.0); Blood Urea Nitrogen 27 mg/dL (9-16); Carbon Dioxide 28 mmol/L (22-29); Chloride 103 mmol/L (96-108); Cholesterol 169 mg/dL; Estimated Glomerular Filt Rate 41; Glucose Fasting 91 mg/dL (60-99); HDL Cholesterol 40 mg/dL; LDL Cholesterol Calculated 95 mg/dl; Potassium 5.3 mmol/L (3.3-5.1); Sodium 141 mmol/L (135-145); Total Protein 8.4 g/dL (6.5-8.0); Triglycerides 171 mg/dL
[2022-02-20 10:11] LABS: Free T4 (Free Thyroxine) 1.11 ng/dL (0.71-1.85); Thyroid Stimulating Hormone 1.45 uIU/mL (0.32-4.0); Vitamin D 25-OH Total 49.7 ng/mL (>30)
== END 2022-02-20 08:30 | disposition home or self-care (01) ==
LOC: HO.LAB 08:29
PROVIDERS: PCP Internal Medicine; Visit Provider Internal Medicine
DX: Z00.00 Encounter for general adult medical examination without abnormal findings (principal); E78.00 Pure hypercholesterolemia, unspecified; I10 Essential (primary) hypertension; E03.9 Hypothyroidism, unspecified; E55.9 Vitamin D deficiency, unspecified; R73.01 Impaired fasting glucose
CPT/HCPCS: 36415; 80053; 80061; 81001; 82306; 83036; 84439; 84443; 85025; 87086

== ENCOUNTER 2022-02-22 11:08 | Day surgery (SDC) | payer OTHER, SELFPAY ==
[2022-02-17 14:05] VITALS: BMI 34.4
--- NOTE | 2022-02-21 09:30 | P.CONAN_ITS ---
Documented by User: Dawn Trammell NP 02/21/22 09:34 HPI - Anesthesia Eval Consult details Narrative: 76yo F for Lumbar Spinal Cord Stimulation Trial stable at 06/2021 yearly cardiology visit [facility] Active Problems Active Problems: All Active Problems (Updated 02/19/22 @ 03:05 by Truong Colon MD) Obesity (BMI 30-39.9) (Acute) Gastritis (Acute) Benign essential hypertension (Acute) Annual physical exam (Acute) GERD without esophagitis (Acute) Acquired hypothyroidism (Acute) Constipation (Acute) Thrombophlebitis of right leg (Acute) Lumbar spondylosis (Acute) Post laminectomy syndrome (Acute) Low back pain with right-sided sciatica (Acute) Sjogrens syndrome (Acute) Primary osteoarthritis of right knee (Acute) Trochanteric bursitis, right hip (Acute) PAC (premature atrial contraction) (Acute) HTN (hypertension) (Acute) Past Medical History Medical History (Updated 02/19/22 @ 03:05 by Truong Colon MD) Acquired hypothyroidism SAMARA positive Benign essential hypertension Breast cancer CKD (chronic kidney disease) Connective tissue disease Constipation COVID-19 vaccine series completed Gastritis GERD (gastroesophageal reflux disease) GERD without esophagitis HTN (hypertension) Hypothyroid Interstitial lung disease Lumbar spondylosis Obesity (BMI 30-39.9) Osteoarthritis Osteopenia PAC (premature atrial contraction) Post laminectomy syndrome Raynauds disease Sjogrens syndrome Family History Family History Father Cancer Emphysema of lung Brother Emphysema of lung Mother Arthritis Bone cancer Surgical History Surgical History H/O lumpectomy History of back surgery Hx of cholecystectomy Social History Social History Are you a primary family member caretaker to a significant other at home: No Do you presently have visiting nurse or other home services: No Alcohol intake: never Patient Tobacco Use Status: Never used Tobacco Use of substances other than those prescribed or required for medical reasons: No Are you DNR?: No Advance Directives: No Advance Directives Information Provided: Yes Meds Allergies Allergy/AdvReac Type Severity Reaction Status Date / Time Penicillins [PENICILLINS] Allergy Intermediate rash Verified 02/17/22 17:00 senna Allergy Intermediate rash Verified 02/17/22 17:00 Home Medications Medication Instructions Recorded Confirmed Last Taken Type calcitriol 0.5 mcg capsule 0.5 mcg PO 3XW 03/04/20 02/17/22 Unknown History multivitamin 1 tab PO DAILY 11/15/20 02/17/22 Unknown History Exam Exam Date and Time: February 21, 2022 0930 Height,Weight and Vital Signs: Height 5 ft 10 in Weight 108.862 kg Pertinent Lab Results Pertinent Lab Results: Laboratory Tests 02/20/22 02/20/22 08:42 08:42 WBC 4.9 Hgb 11.7 L Hct 37.0 Plt Count 297 Sodium 141 Potassium 5.3 H Chloride 103 Carbon Dioxide 28 BUN 27 H Creatinine 1.25 Narrative Narrative: EKG 06/2021 normal sinus rhythm with PACs with no significant ST T wave changes Assessment and Plan Assessment Anesthesia Assessment: Chart Reviewed Documented by User: Holli Rashid MD 02/22/22 12:00 [facility] Past Medical History Medical History (Updated 02/19/22 @ 03:05 by Truong Colon MD) Acquired hypothyroidism SAMARA positive Benign essential hypertension Breast cancer CKD (chronic kidney disease) Connective tissue disease Constipation COVID-19 vaccine series completed Gastritis GERD (gastroesophageal reflux disease) GERD without esophagitis HTN (hypertension) Hypothyroid Interstitial lung disease Lumbar spondylosis Obesity (BMI 30-39.9) Osteoarthritis Osteopenia PAC (premature atrial contraction) Post laminectomy syndrome Raynauds disease Sjogrens syndrome Family History Family History Father Cancer Emphysema of lung Brother Emphysema of lung Mother Arthritis Bone cancer Family history of problems with anesthesia: No Surgical History Surgical History H/O lumpectomy History of back surgery Hx of cholecystectomy History of Problems with Anesthesia: No Social History Social History Are you a primary family member caretaker to a significant other at home: No Do you presently have visiting nurse or other home services: No Alcohol intake: never Patient Tobacco Use Status: Never used Tobacco Use of substances other than those prescribed or required for medical reasons: No Are you DNR?: No Advance Directives: No Advance Directives Information Provided: Yes Meds Allergies Allergy/AdvReac Type Severity Reaction Status Date / Time Penicillins [PENICILLINS] Allergy Intermediate rash Verified 02/17/22 17:00 senna Allergy Intermediate rash Verified 02/17/22 17:00 Home Medications Medication Instructions Recorded Confirmed Last Taken Type calcitriol 0.5 mcg capsule 0.5 mcg PO 3XW 03/04/20 02/17/22 Unknown History multivitamin 1 tab PO DAILY 11/15/20 02/17/22 Unknown History Exam Airway Mallampati Class: II TM Dist: >3cm Neck ROM: Full Heart: rrr Lungs: cta Assessment and Plan Assessment Anesthesia Assessment: Anesthesia Plan Discussed and Chart Reviewed Final Anesthetic Review Family History of Problems with Anesthesia: No History of Problems with Anesthesia: No NPO: Yes ASA Class: III Final Preanesthetic Review: No Changes in Pt Med Stat, Meds/Allgs Chart Reviewed and Consent Obtained/Reviewed Patient Risk: Intermediate Procedure Risk: Intermediate Anesthetic Plan Anesthetic Plan: MAC: Disposition: Standard PACU
--- NOTE | ~2022-02-22 | FL_ITS ---
EXAMINATION: XR FLUOROSCOPY WITH IMAGES CLINICAL INFORMATION: Lumbar spinal cord stimulator trial. COMPARISON: Fluoroscopic spot views 08/31/2021 TECHNIQUE: Fluoroscopy performed by Dr. Jon Deluna. Fluoroscopy time: 5.9 minutes. Cumulative Dose: 234 mGy. DAP: 27.5 Gycm2. Images: 2. FINDINGS: There are 2 spinal stimulator electrodes seen ascending the posterior spinal canal. The electrode tips are at level of mid thoracic spine. Exact level of the electrode tips is difficult given the small [id number]. There is no visible kinking or defect of the leads. There are multilevel degenerative changes thoracic spine with bridging osteophytes. FL/FL guidance in OR IMPRESSION: Fluoroscopy for pain management procedure.
[2022-02-22 11:53] VITALS: BP 151/71; PULSE 71; RESP 18; TEMP 36.9; O2SAT 97
[2022-02-22] MEDS: Lactated Ringers 1,000 ML 100 ML IVCONT (12:02)
--- NOTE | 2022-02-22 12:33 | P.OP_ITS ---
Operative Note Operative Note Date of Service: 02/22/22 Narrative: Percutaneous Spinal Cord Stimulator Trial, Lumbar After obtaining written consent, pre-procedure blood pressure and heart rate were recorded and are in the nursing record for review. A peripheral IV was started. Antibiotics, cefazolin 2 gram, were given intraoperatively. The patient was placed in a prone position.? The patient was sedated by the anesthesiologist. The thoracolumbar area was widely prepped with ChloraPrep, allowed to dry and draped in sterile fashion. Fluoroscopy was used to identify the T12/L1 interlaminar spaces and appropriate needle insertion sites. The skin and subcutaneous tissue was anesthetized with 0.5% lidocaine. Two separate 14 gauge Tuohy epidural needles were then advanced from this point in a paramedian approach to the epidural space opening at T12/L1 interspace, where lost of resistance was found using air. No paresthesias were elicited with needle placement. No CSF or heme was present upon needle placement. A guide wire was then used to confirm placement into the epidural space at each level under live fluoroscopy. The 1x8 stimulator lead wire was then threaded to the top of T8 in the left parasagittal position and top of of T9 in the right parasagittal posit ion under live fluoroscopy. The leads advanced midline and posteriorly.? The Tuohy needles were then completely removed under live fluoroscopy. The stimulator wires were then secured with 2-0 Tycron sutures to the skin, and reinforced with sterile strips and gauze and tegaderm for skin dressing. The patient tolerated the procedure well and no complications were encountered. Following the procedure the patient's vital signs were stable. The patient was discharged home in good condition after being given discharge instructions. Time Out: Immediately prior to the procedure, the following was verbally confirmed that there is a signed consent form and that the correct patient, planned procedure, site and side are consistent with documentation and that necessary equipment and/or blood products are available prior to the start of the case. Complications: none EBL: <2 cc
--- NOTE | 2022-02-22 12:33 | P.BOP_ITS ---
Brief Operative Note Date of Service: 02/22/22 Pre-op diagnosis: Lumbar postlaminectomy syndrome Post-op diagnosis: same Procedure: Lumbar spinal cord stimulation trial Implants: Nevro HFX spinal cord stimulator leads Surgeon: Jon Deluna MD Anesthesia: MAC Was an Technical Business Analyst used for this Procedure?: No Estimated blood loss (mL): 3 Pathology: none sent Condition: stable Disposition: PACU
--- NOTE | 2022-02-22 12:33 | MHC.SHP ---
Pre-Procedural Eval Section A Date of Service: 02/22/22 The patient is an INPATIENT: No Changes since office visit: Yes Patient answered all questions The History & Physical has been completed within 30 days and I have reviewed it.: No Section B Chief Complaint: Postlaminectomy syndrome, not elsewhere classified Relevant Family History (Specify if Yes): No Relevant Social History: None Present Medications: None Medical History: No relevant PMH History of Previous Operations: Relevant previous surgery/procedure and date(s) (back surgery) Allergies: Allergies Allergy/AdvReac Type Severity Reaction Status Date / Time Penicillins [PENICILLINS] Allergy Intermediate rash Verified 02/17/22 17:00 senna Allergy Intermediate rash Verified 02/17/22 17:00 Review of Systems Sugical H&P ROS: Negative: Constitution, Cardiovascular and Respiratory Exam Surgical H&P Exam: Normal: HEENT, Normal: Heart and Normal: Lungs Plan Diagnosis/Plan: Unchanged I have reviewed the history and physical and performed a pertinent physical examination on my patient. No changes have occurred unless specified.
[2022-02-22 13:46] LABS: MRSA Nasal PCR POSITIVE (Negative); SA Nasal PCR POSITIVE (Negative)
[2022-02-22 14:47] VITALS: BP 143/56; PULSE 53; RESP 16; TEMP 36.2; O2SAT 96
[2022-02-22 15:02] VITALS: BP 114/97; PULSE 49; RESP 16; TEMP 36.1; O2SAT 96
[2022-02-22 15:17] VITALS: BP 158/61; PULSE 48; RESP 18; TEMP 36.1; O2SAT 96
== END 2022-02-22 16:13 | disposition home or self-care (01) ==
PROVIDERS: Nurse Practitioner Family; PCP Internal Medicine; Visit Provider Internal Medicine
PROC: (CPT 63650; principal; 2022-02-22 12:30)
DX: M96.1 Postlaminectomy syndrome, not elsewhere classified (principal); M47.816 Spondylosis without myelopathy or radiculopathy, lumbar region; M85.80 Other specified disorders of bone density and structure, unspecified site; M19.90 Unspecified osteoarthritis, unspecified site; M35.00 Sjogren syndrome, unspecified; I12.9 Hypertensive chronic kidney disease with stage 1 through stage 4 chronic kidney disease, or unspecified chronic kidney disease; N18.30 Chronic kidney disease, stage 3 unspecified; Z79.899 Other long term (current) drug therapy; Z88.0 Allergy status to penicillin; Z88.8 Allergy status to other drugs, medicaments and biological substances
CPT/HCPCS: 63650 ×2; 87640; 87641; C1897; J2250; J2405; J2795; J3010; Q9965

== ENCOUNTER → 2022-02-28 09:18 | Outpatient (BNVA) | payer OTHER, SELFPAY | PROVIDERS: PCP Internal Medicine; Visit Provider Nurse Practitioner Family | DX: M47.816 Spondylosis without myelopathy or radiculopathy, lumbar region (principal); M96.1 Postlaminectomy syndrome, not elsewhere classified; M54.41 Lumbago with sciatica, right side | CPT/HCPCS: 99212 ==

== ENCOUNTER 2022-06-05 13:20 | Outpatient (REF) | payer OTHER, SELFPAY ==
[2022-06-05 14:33] LABS: Alanine Aminotransferase 14 U/L (0-31); Albumin Level 3.8 g/dL (3.5-5.0); Alkaline Phosphatase 103 U/L (39-117); Anion Gap 12 (12-20); Aspartate Amino Transferase 18 U/L (5-31); Bilirubin Total 0.5 mg/dL (0.0-1.0); Blood Urea Nitrogen 19 mg/dL (9-16); Calcium 9.5 mg/dL (8.4-10.2); Carbon Dioxide 27 mmol/L (22-29); Chloride 105 mmol/L (96-108); Estimated Glomerular Filt Rate 48; Glucose Random 72 mg/dL (60-115); Potassium 5.2 mmol/L (3.3-5.1); Sodium 139 mmol/L (135-145); Total Protein 7.4 g/dL (6.5-8.0)
== END 2022-06-05 13:21 | disposition home or self-care (01) ==
LOC: HO.LAB 13:20
PROVIDERS: PCP Internal Medicine; Visit Provider Internal Medicine
DX: I12.9 Hypertensive chronic kidney disease with stage 1 through stage 4 chronic kidney disease, or unspecified chronic kidney disease (principal); N18.32 Chronic kidney disease, stage 3b
CPT/HCPCS: 36415; 80053

== ENCOUNTER → 2022-08-14 14:52 | Outpatient (BNVA) | payer OTHER, SELFPAY | PROVIDERS: PCP Internal Medicine; Referring Provider Internal Medicine; Visit Provider Internal Medicine Cardiovascular Disease | DX: I49.1 Atrial premature depolarization (principal); I10 Essential (primary) hypertension | CPT/HCPCS: 93005; 99212 ==

== ENCOUNTER 2022-09-25 14:03 | Outpatient (AMB) | payer OTHER, SELFPAY ==
[2022-09-25 14:24] VITALS: BP 142/78; PULSE 54; O2SAT 97; BMI 33.9
--- NOTE | 2022-09-25 14:24 | MHC.PC.OV ---
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 Allergies Penicillins [PENICILLINS] Allergy (Intermediate, Verified 01/10/23 11:27) rash senna Allergy (Intermediate, Verified 01/10/23 11:27) rash Medication List - Last Reconciled 09/25/22 by Truong Colon MD amlodipine 10 mg PO DAILY bisacodyl 5 mg PO BEDTIME 90 days calcitriol 0.5 mcg PO 3XW carvedilol 12.5 mg PO BID 90 days [Commode As directed] docusate sodium 100 mg PO DAILY PRN 90 days levothyroxine 125 mcg PO DAILY 90 days multivitamin 1 tab PO DAILY omeprazole 40 mg PO DAILY 90 days topiramate 25 mg PO BEDTIME 30 days Tobacco use date assessed: 05/29/22 Fall risk assessment: No Falls in past year Last assessed Fall Risk: 09/25/22 HPI hypothyroidism, HTN HPI Details Patient comes in today for her follow up visit States that she continues to have trouble with her mobility - she feels very unsteady often when she is walking and moving about and is often afraid that she will fall and end up getting hurt badly She was previously referred to physical therapy but states that she was never contacted regarding this nor scheduled for an appointment Still has on and off dizziness and headaches lately Also relates experiencing symptoms of dry mouth and dry eyes often lately She denies any sore throat but reports experiencing some problems with swallowing lately - is not sure if these are related to her dry mouth or not Denies any chest pains, no SOB No nausea/vomiting, no abdominal pain or any increase in reflux symptoms or heartburns lately No change in bowel habits noted Had some follow up labs done a few months ago - to discuss her results [facility] Medical History (Updated 01/30/23 @ 19:34 by Truong Colon MD) Chronic kidney disease, stage III (moderate) Obesity (BMI 30-39.9) Gastritis Benign essential hypertension GERD without esophagitis Acquired hypothyroidism Constipation Lumbar spondylosis Post laminectomy syndrome Connective tissue disease CKD (chronic kidney disease) Interstitial lung disease Osteopenia COVID-19 vaccine series completed PAC (premature atrial contraction) Sjogrens syndrome GERD (gastroesophageal reflux disease) Hypothyroid Breast cancer Osteoarthritis Raynauds disease SAMARA positive HTN (hypertension) Surgical History H/O lumpectomy Hx of cholecystectomy History of back surgery Family History (Updated 01/10/23 @ 11:31 by MARIANO Okeefe) Father Cancer Emphysema of lung Brother Emphysema of lung Mother Bone cancer Other Arthritis Social History (Updated 01/10/23 @ 11:32 by MARIANO Okeefe) Household Members: Spouse and Children Are you a primary insurance healthcare consultant to a significant other at home: No Do you presently have visiting nurse or other home services: No Alcohol intake: never Patient Tobacco Use Status: Never used Tobacco Current occupational status: retired Cognitive needs: No Hearing needs: No Vision needs: No Questionnaire Thrive Questionnaire Date Thrive assessed: 05/29/22 AUDIT C Alcohol Use Questionnaire (AUDIT-C) 1. How often do you have a drink containing alcohol?: Never Total Score: 0 Score Reviewed/Action Taken: Yes MO-7 AMB Questionnaire MO-7 Date MO - 7 assessed: 05/29/22 Source: Developed by Drs. Timoteo Covington, Lucy Arndt, Guevara Jewell and colleagues, with an educational tere from [employer]. Review of Systems Const Denies chills, Denies fatigue, Denies fever(s) and Reports headache(s) (recurrent) Eyes Reports dry eyes ENT Reports dysphagia (reports (+) problems with swallowing at times lately), Reports dizziness (on and off), Reports dry mouth, Denies otalgia, Reports headache(s) (recurrent), Denies neck pain, Denies odynophagia and Denies sore throat Card Denies chest pain, Denies rapid heart rate, Denies irregular heart rhythm, Denies palpitations and Denies dyspnea Resp Denies chest congestion, Denies cough, Denies dyspnea and Denies wheezing GI Denies abdominal pain, Denies constipation, Reports dysphagia (reports (+) problems with swallowing at times lately), Denies diarrhea, Denies nausea, Denies odynophagia and Denies vomiting Denies hematuria, Denies urinary frequency, Denies dysuria and Denies urinary urgency Musc Reports abnormal gait (unsteady), Reports back pain (over the lower back - chronic), Denies arthralgias, Denies muscle weakness and Denies neck pain Skin/Breast Denies rash Neuro Reports abnormal gait (unsteady), Reports dizziness (on and off), Reports headache(s) (recurrent) and Denies paresthesias Psych Denies anxiety Endo Denies fatigue and Denies palpitations Rogelio/Lymph Denies easy bruising Aller/Immun Denies wheezing Physical exam (Primary Care) Vital Signs: Last Vital Signs Pulse 54 09/25/22 14:24 BP 142/78 H 09/25/22 14:24 Pulse Ox 97 09/25/22 14:24 Oxygen Delivery Method Room Air 09/25/22 14:24 BMI result Body Mass Index 33.9 Tobacco/Smoking Status: Tobacco use Status Tobacco use date assessed 05/29/22 09/25/22 14:30 Patient Tobacco Use Status Never used Tobacco 09/25/22 14:30 Thrive Assessment: Date of Thrive Assessment Date Thrive assessed 05/29/22 09/25/22 14:30 Const General: no acute distress and alert HENMT Ears: TM's normal bilaterally and EAC's normal Throat: Yes posterior oropharynx normal and Yes tonsils normal (no TP congestion) Neck Neck: Yes no lymphadenopathy and Yes supple Thyroid: Thyroid normal Resp Auscultation: clear to auscultation bilaterally, no rales and no wheezes Cardio Rate: regular rate Rhythm: regular rhythm Heart sounds: no murmurs GI Palpation (GI): Soft to palpation and nontender Auscultation: normal bowel sounds Back/Spine/Pelvis Thoracic/Lumbar Spine: lumbar spinal tenderness Skin Rashes: no rashes Extrem General: Yes no clubbing, cyanosis or edema Results Reviewed Results Reviewed: Laboratory Tests 06/05/22 13:27 Sodium 139 Potassium 5.2 H Creatinine 1.10 Estimated GFR 48 Random Glucose 72 Calcium 9.5 AST 18 ALT 14 Assessment and Plan Assessment & Plan (1) Gait instability: Code(s): R26.81 - Unsteadiness on feet Plan: Will refer her to neurology for further evaluation and management of her gait instability and recurrent dizziness Was referred for physical therapy evaluation and intervention a few months ago but states that she was never seen or scheduled for an appointment by PT (2) Dizziness of unknown etiology: Code(s): R42 - Dizziness and giddiness Plan: Will refer her to neurology for further evaluation and management (3) Frequent headaches: Code(s): R51.9 - Headache, unspecified Plan: Suspect either tension headaches or migraine She was started on a trial of low dose Topiramate 25 mg Q HS for headache prophylaxis a few months ago that she states did not help and she self-discontinued taking the medication after a while Will refer her now to neurology for further evaluation and management (4) Benign essential hypertension: Code(s): I10 - Essential (primary) hypertension Plan: Reinforced low sodium diet - goal is systolic BP of at least 130 to 140 mm or less Continue Amlodipine 10 mg QD and Carvedilol 12.5 mg BID Results of her labs done back in May 2022 reviewed and discussed with patient (5) Acquired hypothyroidism: Code(s): E03.9 - Hypothyroidism, unspecified Plan: TFTs were normal on her most recent labs Continue Levothyroxine 125 mcg QD Will have patient recheck her labs in 4 months for follow up (6) Gastritis: Code(s): K29.70 - Gastritis, unspecified, without bleeding Qualifiers: Chronicity: chronic Gastritis bleeding: without bleeding Gastritis type: unspecified gastritis Qualified Code(s): K29.50 - Unspecified chronic gastritis without bleeding Plan: Dietary restrictions reinforced Continue Omeprazole 40 mg QD Follow up with GI as scheduled (7) Chronic kidney disease, stage III (moderate): Code(s): N18.30 - Chronic kidney disease, stage 3 unspecified Qualifiers: Chronic kidney disease stage 3 subtype: stage 3b (GFR 30-44) Qualified Code(s): N18.32 - Chronic kidney disease, stage 3b Plan: Will continue to monitor her renal function closely Follow up with nephrology (Dr. Meza) as scheduled (8) Sjogrens syndrome: Code(s): M35.00 - Sjogren syndrome, unspecified Qualifiers: Sjogren's organ involvement: without extraglandular involvement Qualified Code(s): M35.00 - Sicca syndrome, unspecified Plan: Will refer her back to rheumatology for further evaluation and management (9) Dysphagia: Code(s): R13.10 - Dysphagia, unspecified Qualifiers: Dysphagia type: unspecified Qualified Code(s): R13.10 - Dysphagia, unspecified Plan: Will send her for a barium swallow ÁNGEL for further evaluation (10) Constipation: Code(s): K59.00 - Constipation, unspecified Qualifiers: Constipation type: unspecified constipation type Qualified Code(s): K59.00 - Constipation, unspecified Plan: Reinforced increased oral fluids and dietary fiber Continue Bisacodyl 5 mg QD PRN (11) Lumbar spondylosis: Code(s): M47.816 - Spondylosis without myelopathy or radiculopathy, lumbar region Plan: Reinforced activity and weight-lifting restrictions Has failed back injections in the past Was successfully trialed on SCS a couple of months ago and she is now awaiting scheduling for a permanent SCS implantation Follow up with Pain Management as scheduled (12) Primary osteoarthritis of right knee: Code(s): M17.11 - Unilateral primary osteoarthritis, right knee Plan: Continue Acetaminophen ER 650 mg Q 12 hours PRN Follow up with orthopedics as scheduled (13) Obesity (BMI 30-39.9): Code(s): E66.9 - Obesity, unspecified Plan: Reinforced diet/exercise as tolerated/lose weight (14) Cervical cancer screening: Code(s): Z12.4 - Encounter for screening for malignant neoplasm of cervix Plan: Will refer her to gynecology for 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 intern exam and pap smear Plan Follow up in 4 months Orders: Orders FL barium swallow 09/25/22 R13.10 - Dysphagia, unspecified, R09.89 - Other specified symptoms and signs involving the circulatory and respiratory systems Free T4 (Free Thyroxine) 4 Months E03.9 - Hypothyroidism, unspecified Vitamin D 25-OH Total 4 Months E55.9 - Vitamin D deficiency, unspecified UA CC w/rflx Micro + Cult 4 Months R30.0 - Dysuria Erythrocyte Sedimentation Rate 4 Months I73.00 - Raynaud's syndrome without gangrene, M35.00 - Sjogren syndrome, unspecified C Reactive Protein 4 Months I73.00 - Raynaud's syndrome without gangrene, M35.00 - Sjogren syndrome, unspecified Complete Blood Count Auto Diff 4 Months I10 - Essential (primary) hypertension Lipid Panel 4 Months E78.00 - Pure hypercholesterolemia, unspecified Comprehensive [place]. Panel Fast 4 Months E78.00 - Pure hypercholesterolemia, unspecified Thyroid Stimulating Hormone 4 Months E03.9 - Hypothyroidism, unspecified Vitamin B12 and Folate 4 Months E53.8 - Deficiency of other specified B group vitamins Referrals Neurology Referral R26.81 - Unsteadiness on feet, R42 - Dizziness and giddiness, R51.9 - Headache, unspecified Rheumatology Referral M35.00 - Sjogren syndrome, unspecified, I73.00 - Raynaud's syndrome without gangrene SEO MANAGER Referral Z12.4 - Encounter for screening for malignant neoplasm of cervix Coding Level of Care Code Est Pt Level 4 (44446) Diagnoses Gait instability R26.81 Dizziness of unknown etiology R42 Frequent headaches R51.9 Benign essential hypertension I10 Acquired hypothyroidism E03.9 Chronic gastritis without bleeding, unspecified gastritis type K29.50 Chronicity: chronic Gastritis bleeding: without bleeding Gastritis type: unspecified gastritis Stage 3b chronic kidney disease N18.32 Chronic kidney disease stage 3 subtype: stage 3b (GFR 30-44) Sjogren's syndrome without extraglandular involvement M35.00 Sjogren's organ involvement: without extraglandular involvement Dysphagia, unspecified type R13.10 Dysphagia type: unspecified Constipation, unspecified constipation type K59.00 Constipation type: unspecified constipation type Lumbar spondylosis M47.816 Primary osteoarthritis of right knee M17.11 Obesity (BMI 30-39.9) E66.9 Cervical cancer screening Z12.4
== END 2022-09-25 14:59 | disposition home or self-care (01) ==
LOC: HO.HMGH 14:03
PROVIDERS: PCP Internal Medicine; Visit Provider Internal Medicine
DX: I12.9 Hypertensive chronic kidney disease with stage 1 through stage 4 chronic kidney disease, or unspecified chronic kidney disease (principal); N18.32 Chronic kidney disease, stage 3b; M35.00 Sjogren syndrome, unspecified; R26.81 Unsteadiness on feet; R42 Dizziness and giddiness; R51.9 Headache, unspecified; E03.9 Hypothyroidism, unspecified; K29.50 Unspecified chronic gastritis without bleeding; R13.10 Dysphagia, unspecified; K59.00 Constipation, unspecified; M47.816 Spondylosis without myelopathy or radiculopathy, lumbar region; M17.11 Unilateral primary osteoarthritis, right knee
CPT/HCPCS: 99214

== ENCOUNTER 2022-12-20 09:46 | Outpatient (REF) | payer OTHER, SELFPAY ==
--- NOTE | ~2022-12-20 | FL_ITS ---
EXAMINATION: FL BARIUM SWALLOW CLINICAL INFORMATION: Dysphagia. COMPARISON: None available. TECHNIQUE: Barium swallow examination is performed using fluoroscopic evaluation in addition to multiple fluoroscopic spot views. The patient is imaged both upright and prone and using both thick and thin sulfate along with effervescent granules. Fluoroscopy time: 1.7 minutes DAP: 7.929 Gycm2 Images: 54 FINDINGS: Patient swallowed thin and thick barium without difficulty. No nasopharyngeal reflux or tracheal aspiration was identified. No Zenker's diverticulum. No cricopharyngeal hypertrophy. There is noted to be distention of the distal half of the thoracic esophagus without mucosal abnormality identified. Half-inch diameter barium tablet lodged at the gastroesophageal junction for approximately 10 minutes before passing including with multiples swallows of water and barium. No long stricture is appreciated. No tertiary contractions were identified. No hiatal hernia was identified. No gastroesophageal reflux was elicited including with water siphon test. There is noted to be essentially nonmotility of the esophagus while prone. 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
== END 2022-12-20 09:47 | disposition home or self-care (01) ==
LOC: HO.XRAY 09:46
PROVIDERS: PCP Internal Medicine; Visit Provider Internal Medicine
DX: R13.10 Dysphagia, unspecified (principal); R09.89 Other specified symptoms and signs involving the circulatory and respiratory systems
CPT/HCPCS: 74220

== ENCOUNTER → 2022-12-20 09:48 | Outpatient (BNV) | payer OTHER, SELFPAY | PROVIDERS: PCP Internal Medicine; Visit Provider Radiology Diagnostic Radiology | DX: K22.0 Achalasia of cardia (principal) | CPT/HCPCS: 74221 ==

== ENCOUNTER 2023-01-10 10:48 | Outpatient (AMB) | payer OTHER, SELFPAY ==
--- NOTE | 2023-01-10 11:04 | A.OFFVIS_ITS ---
Intake Vital Signs 01/10/23 11:22 Height 5 ft 10 in Weight 236 lb 1.841 oz BMI 33.9 BP 124/66 Blood Pressure Location Lt brachial Position Sitting Pulse 72 Pulse Source Pulse Oximeter Temp 98 F Temp Source Skin Comment unable to obtain o2, fingers too cold Intake Visit Reasons: SS/Raynauds Intake Note: New patient/established patient here for Raynaud's and SS. Recreation Technician Required: Yes Recreation Technician Language: Bit Sharpener Name: Donte Titus Information Interpreted: clinical only Accompanied by: Son Allergies Penicillins [PENICILLINS] Allergy (Intermediate, Verified 01/10/23 11:27) rash senna Allergy (Intermediate, Verified 01/10/23 11:27) rash HPI HPI Comments History of Present Illness Details The patient presents for evaluation of widespread pain. Her son accompanies her. We utilized the [employer] service to facilitate the visit. Basically she says she has pain all over her body. It has been going on for 10 years. Most problematic in terms of walking has been knee pain, particularly the right knee. There is also lower back pain when she is standing. The back is only occasionally bothersome at night. It is definitely worse with more physical activity. She has had injections of corticosteroid apparently in the back and in the knee with transient benefit. She says she can not walk very far because of the pain. She takes acetaminophen, as much as 1500 mg at a time without much improvement. NSAIDs have been avoided because she has mild CKD and hypertension. Her chart here is reviewed. She has a Sjogren's antibody and with the sicca symptoms was thought to have Sjogren's syndrome but she never had any inflammatory arthritis symptoms or signs. No other extra granular manifestations of Sjogren's have been detected. [facility] Medical History (Updated 01/10/23 @ 13:38 by Gutierrez Duke MD) Chronic kidney disease, stage III (moderate) Obesity (BMI 30-39.9) Gastritis Benign essential hypertension GERD without esophagitis Acquired hypothyroidism Constipation Lumbar spondylosis Post laminectomy syndrome Connective tissue disease CKD (chronic kidney disease) Interstitial lung disease Osteopenia COVID-19 vaccine series completed PAC (premature atrial contraction) Sjogrens syndrome GERD (gastroesophageal reflux disease) Hypothyroid Breast cancer Osteoarthritis Raynauds disease SAMARA positive HTN (hypertension) Surgical History H/O lumpectomy Hx of cholecystectomy History of back surgery Family History (Updated 01/10/23 @ 11:31 by MARIANO Okeefe) Father Cancer Emphysema of lung Brother Emphysema of lung Mother Bone cancer Other Arthritis Social History (Updated 01/10/23 @ 11:32 by MARIANO Okeefe) Household Members: Spouse and Children Are you a primary pharmacy customer care specialist to a significant other at home: No Do you presently have visiting nurse or other home services: No Alcohol intake: never Patient Tobacco Use Status: Never used Tobacco Current occupational status: retired Cognitive needs: No Hearing needs: No Vision needs: No Review of Systems Const Details: Negative for appetite change, weight change, fever, chills, malaise and fatigue Eyes Details: Dry eyes. Some itchiness in the eyes as well. Occasional headache. Negative for vision change, and dizziness ENT Details: Some oral dryness, helped with Biotene. She has difficulty swallowing solids at times. Her chart indicates she was on pilocarpine in the past but does not think it helped much. She had in that showed some esophageal dysmotility. Negative for hearing change, tinnitus, oral ulcer, nose bleeds Card Details: Negative chest pain, edema and syncope Resp Details: Negative for SOB, cough and wheezing GI Details: Negative indigestion/heartburn, nausea, abdominal pain, bowel changes, diarrhea, constipation and bloody stool. Details: Negative for dysuria, hematuria, nocturia, decreased force/flow and genital discharge Skin/Breast Details: She does have purplish color changes in the fingers when it is cold. No cutaneous ulcerations. Negative for itching, rash, hives, sun sensitivity, and skin cancer Neuro Details: Negative for epilepsy, palsy, stroke, changes in speech, tingling and weakness Psych Details: Trouble sleeping at night. Negative for anxiety, depression and stress Endo Details: Negative for polyuria and polydypsia Rogelio/Lymph Details: Negative for excessive bruising or bleeding. Physical Exam Vital Signs: Last Vital Signs Temp 98 F 01/10/23 11:22 Pulse 72 01/10/23 11:22 BP 124/66 01/10/23 11:22 BMI result Body Mass Index 33.9 APPEARANCE: Patient in no acute distress EYES no redness, pupils equal and reactive to light, eyelids normal EARS: External ear normal, canal clear and tympanic membrane normal. NOSE/SINUS: Airflow through both nares, no nasal discharge, no bleeding THROAT: Oral mucosa moist, no ulcerations NECK: No thyromegaly or masses, no adenopathy, trachea midline. HEART: Regulrar rhythm, S1-S2 heard, no murmurs, rubs or gallops. LUNG: Clear to percussion and auscultation ABD: Normal bowel sounds, no organomegaly, masses or tenderness. EXTREMITIES: No edema, no calf tenderness, normal peripheral pulses. NEURO: Oriented and alert x3. No focal weakness. Reflexes symmetric. She walks slowly. SKIN: No inflammatory or neoplastic lesions. Normal color and turgor JOINT EXAM:.?? Cervical Spine:.? Full range of motion without pain; no tenderness. Thoracic Spine:.? No scoliosis.? No tenderness on palpation. Lumbar Spine:.? Alignment normal.? Mild to moderate pain with flexion of 45 degrees with some paraspinal muscle tenderness. Chest Wall:.? No tenderness, swelling, increased warmth or erythema. Hands:. Right:? Normal pain-free range of motion with some slight swelling at the MCPs 1 through 3 but these are not tender. There is some slight bony thickening at the thumb IP but it is not tender. There is no flexor tendon triggering or tenderness, there is no tenderness in the PIP joints. There is no thenar atrophy or sensory loss. Left: Normal pain-free range of motion. Slight thickening at the 1st 2 MCP joints without tenderness. Mild nontender bony enlargement at the thumb IP. Elsewhere there is no tenderness, swelling, increased warmth or erythema. There is no flexor tendon triggering, thenar atrophy or sensory loss. Wrists: Left: There is normal pain-free range of motion without tenderness. There is a firm soft tissue lump on the dorsum of the hand consistent with a ganglion cyst. It is not tender. Right:? Normal pain-free range of motion without tenderness, swelling, increased warmth or erythema. Elbows:. Normal pain-free range of motion without tenderness, swelling, increased warmth or erythema. Shoulders:.?? Full range of motion with mild discomfort at the extremes of normal range of motion. There is mild anterior and trapezial tenderness without adenopathy, weakness, swelling, increased warmth or erythema. Hips:.? Right: Lumbar, lateral, and groin pain with full flexion. There is similar discomfort at the extremes of internal or external rotation. Left: Slight lumbar pain with extremes of rotation. No groin pain with motion.. Hip bursa:.? Mild bilateral trochanteric tenderness. Knees:.? Right: Mild pain with extremes of flexion or extension. There is [id number] medial and slight lateral tenderness. There is mild patellofemoral crepitus without redness, warmth or effusion. Left: Slight pain with extremes of flexion or extension with some minimal medial compartment tenderness but no effusion, redness or warmth. There is mild patellofemoral crepitus. Ankles:.? Normal pain-free range of motion without tenderness, swelling, increased warmth or erythema. Feet:.? Normal pain-free range of motion with some mild tenderness over the instep with there is a bony prominence it. There is also some 1st MTP bony enlargement, tenderness, hallux valgus deformity bilaterally. Other areas are without tenderness, swelling, increased warmth or erythema. Tender points: Mild tenderness to digital palpation at the occiput, trapezius, second rib, lateral epicondyle, knees, greater trochanter and gluteal area bilaterally. ? Results Reviewed Results Reviewed: Laboratory Tests 10/22/20 10/22/20 02/20/22 16:02 16:02 08:42 Hgb 11.7 L ESR 40 H Creatinine C-Reactive Protein 0.19 06/05/22 13:27 Hgb ESR Creatinine 1.10 C-Reactive Protein Laboratory Tests 10/22/20 16:02 Double Strand DNA Ab 4 Complement C3 61 L Complement C4 12 L Assessment & Plan Assessment & Plan (1) Raynauds disease: Code(s): I73.00 - Raynaud's syndrome without gangrene Qualifiers: Raynaud?s-associated gangrene presence: without gangrene Qualified Code(s): I73.00 - Raynaud's syndrome without gangrene (2) Primary osteoarthritis of right knee: Code(s): M17.11 - Unilateral primary osteoarthritis, right knee (3) Sjogrens syndrome: Code(s): M35.00 - Sjogren syndrome, unspecified Qualifiers: Sjogren's organ involvement: without extraglandular involvement Qualified Code(s): M35.00 - Sicca syndrome, unspecified (4) Fibromyalgia: Code(s): M79.7 - Fibromyalgia Plan The patient has longstanding and widespread pains. There are no signs of an active inflammatory arthritis presently. However with her age she certainly has evidence for osteoarthritis in the knees, LS spine, and likely the hands. She does have a Sjogren's antibody and sicca symptoms so probably does have some degree of Sjogren's disease. I do not find any extraglandular manifestations. Most likely with all the tender points and longstanding pains her symptoms are enhanced also by fibromyalgia. I told her she had fibromyalgia and osteoarthritis. I gave her some written information on those disorders to review. At this point she will stay with the acetaminophen. I will check markers of inflammation, further serologic studies for SLE and Sjogren's disease, right knee x-ray and LS spine films. We will review possible treatment options when she returns although there is a limited amount of options for her. Review of her old chart, today's history, exam took 52 minutes. Orders: Orders Anti DNA DS Antibody Today I73.00 - Raynaud's syndrome without gangrene, M17.11 - Unilateral primary osteoarthritis, right knee Anti Extractable Nuclear Ag Today I73.00 - Raynaud's syndrome without gangrene, M17.11 - Unilateral primary osteoarthritis, right knee Complete Blood Count Auto Diff Today I73.00 - Raynaud's syndrome without gangrene, M17.11 - Unilateral primary osteoarthritis, right knee C Reactive Protein Today I73.00 - Raynaud's syndrome without gangrene, M17.11 - Unilateral primary osteoarthritis, right knee Sjogren's Antibodies Today I73.00 - Raynaud's syndrome without gangrene, M17.11 - Unilateral primary osteoarthritis, right knee XR lumbar spine 2-3V Today M17.11 - Unilateral primary osteoarthritis, right knee, M54.50 - Low back pain, unspecified XR knee RT 3V Today M17.11 - Unilateral primary osteoarthritis, right knee Erythrocyte Sedimentation Rate Today I73.00 - Raynaud's syndrome without gangrene, M17.11 - Unilateral primary osteoarthritis, right knee Comprehensive Met. Panel Today I73.00 - Raynaud's syndrome without gangrene, M17.11 - Unilateral primary osteoarthritis, right knee Rheumatoid Factor Today I73.00 - Raynaud's syndrome without gangrene Cyclic Citrullinated Peptide Today I73.00 - Raynaud's syndrome without gangrene Coding Level of Care Code Est Pt Level 5 (99755) Diagnoses Raynaud's disease without gangrene I73.00 Raynaud?s-associated gangrene presence: without gangrene Primary osteoarthritis of right knee M17.11 Sjogren's syndrome without extraglandular involvement M35.00 Sjogren's organ involvement: without extraglandular involvement Fibromyalgia M79.7
[2023-01-10 11:22] VITALS: BP 124/66; PULSE 72; TEMP 36.6; BMI 33.9
== END 2023-01-10 11:50 | disposition home or self-care (01) ==
PROVIDERS: PCP Internal Medicine; Visit Provider Internal Medicine Rheumatology
DX: I73.00 Raynaud's syndrome without gangrene (principal); M17.11 Unilateral primary osteoarthritis, right knee; M35.00 Sjogren syndrome, unspecified; M79.7 Fibromyalgia
CPT/HCPCS: 99215

== ENCOUNTER → 2023-01-10 10:48 | Outpatient (BNVA) | payer OTHER, SELFPAY | PROVIDERS: PCP Internal Medicine; Visit Provider Internal Medicine Rheumatology | DX: I73.00 Raynaud's syndrome without gangrene (principal); M35.00 Sjogren syndrome, unspecified; M17.11 Unilateral primary osteoarthritis, right knee; M79.7 Fibromyalgia | CPT/HCPCS: 99212 ==

== ENCOUNTER 2023-01-29 11:35 | Outpatient (REF) | payer OTHER, SELFPAY ==
--- NOTE | ~2023-01-29 | XR_ITS ---
EXAMINATION: XR KNEE, RIGHT CLINICAL INFORMATION: Right knee osteoarthritis. COMPARISON: Radiographs dated 08/14/2018. TECHNIQUE: AP, lateral and sunrise views of the right knee are submitted. FINDINGS: Bony alignment and mineralization are normal. The lateral and medial joint space compartments are well-maintained. There is mild peripheral osteophyte formation of the lateral joint space compartment. There is marked narrowing of the patellofemoral compartment laterally. There is chondrocalcinosis. No fracture, dislocation or significant joint effusion is seen. There is no foreign body. XR/XR knee RT 3V IMPRESSION: 1. There is marked osteoarthritic change of the right patellofemoral compartment, and mild osteoarthritic change is seen of the lateral joint space compartment. The appearance is similar to 08/14/2018. 2. No fracture, dislocation or significant joint effusion is seen. 3. There is chondrocalcinosis, which can be associated with CPPD.
--- NOTE | ~2023-01-29 | XR_ITS ---
EXAMINATION: XR LUMBOSACRAL SPINE CLINICAL INFORMATION: Lower back pain. COMPARISON: Portions of the MRI lumbar spine dated 12/09/2020. TECHNIQUE: AP and lateral views of the lumbar spine and lateral view of the lumbosacral junction. FINDINGS: There is bony demineralization. At L2-L3 through L5-S1, there is moderate disc space narrowing, with vacuum disc phenomenon. The remaining disc spaces are relatively well-maintained. No acute fracture or spondylolisthesis seen. There is multi-level mild to moderate lumbar spondylosis. There is facet arthropathy, most pronounced at L4-L5 and L5-S1. The paravertebral soft tissues are unremarkable. There is retained contrast within colonic diverticula. There are right upper quadrant surgical clips. XR/XR lumbar spine 2-3V IMPRESSION: 1. There is moderately severe degenerative disc disease extending from L2-L3 through L5-S1, with spondylosis. 2. There is lumbar facet arthropathy, most pronounced at L4-L5 and L5-S1.
[2023-01-29 12:41] LABS: Alanine Aminotransferase 11 U/L (0-31); Albumin Level 3.9 g/dL (3.5-5.0); Alkaline Phosphatase 95 U/L (39-117); Anion Gap 15 (12-20); Aspartate Amino Transferase 21 U/L (5-31); Bilirubin Total 0.4 mg/dL (0.0-1.0); Blood Urea Nitrogen 22 mg/dL (9-16); C Reactive Protein 0.37 mg/dL (< or = 0.50); Calcium 9.9 mg/dL (8.4-10.2); Carbon Dioxide 26 mmol/L (22-29); Chloride 105 mmol/L (96-108); Cholesterol 165 mg/dL (<200); Estimated Glomerular Filt Rate 51; Glucose Fasting 84 mg/dL (60-99); Glucose Random 84 mg/dL (60-115); HDL Cholesterol 38 mg/dL (>40); LDL Cholesterol Calculated 89 mg/dL (<100); Potassium 4.6 mmol/L (3.3-5.1); Sodium 141 mmol/L (135-145); Triglycerides 191 mg/dL (<150)
[2023-01-29 12:56] LABS: Free T4 (Free Thyroxine) 1.11 ng/dL (0.71-1.85); Thyroid Stimulating Hormone 0.59 uIU/mL (0.32-4.0); Vitamin D 25-OH Total 46.9 ng/mL (>30)
== END 2023-01-29 11:36 | disposition home or self-care (01) ==
LOC: HO.LAB 11:35
PROVIDERS: PCP Internal Medicine; Visit Provider Internal Medicine Rheumatology
DX: M17.11 Unilateral primary osteoarthritis, right knee (principal); M54.50 Low back pain, unspecified; I73.00 Raynaud's syndrome without gangrene; E55.9 Vitamin D deficiency, unspecified; E53.8 Deficiency of other specified B group vitamins; E03.9 Hypothyroidism, unspecified; E78.00 Pure hypercholesterolemia, unspecified; R30.0 Dysuria
CPT/HCPCS: 36415; 72100; 73562; 80053; 80061; 81001; 82306; 82607; 82746; 84439; 84443; 85025; 85652; 86140; 86200; 86225; 86235; 86431; 87086

== ENCOUNTER 2023-02-01 08:44 | Outpatient (AMB) | payer OTHER, SELFPAY ==
--- NOTE | 2023-02-01 08:47 | A.OFFVIS_ITS ---
Intake Vital Signs 02/01/23 08:56 Height 5 ft 10 in Weight 239 lb 6.752 oz BMI 34.3 BP 120/68 Blood Pressure Location Lt brachial Position Sitting Pulse 84 Pulse Source Pulse Oximeter Temp 97.2 F Temp Source Skin Pulse Oximetry (%) 97 Oxygen Delivery Method Room Air Intake Visit Reasons: fm.OA Intake Note: Patient presents today to follow up on OA and fibromyalgia. c/o right low back pain radiating down leg causing trouble walking and waking her up at night. Feels that the hip gives out. Platform Loader Required: Yes Platform Loader Language: Lecturer Of Portuguese Name: Zahida [id number] Information Interpreted: clinical only Accompanied by: Son Allergies Penicillins [PENICILLINS] Allergy (Intermediate, Verified 02/01/23 08:57) rash senna Allergy (Intermediate, Verified 02/01/23 08:57) rash Medication List - Last Reconciled 02/01/23 by Gutierrez Duke MD amlodipine 10 mg PO DAILY ammonium lactate 12% 1 appl topical BID bisacodyl 5 mg PO BEDTIME 90 days bisacodyl 10 mg PO QAM calcitriol 1 mcg orally weekly; administer after dialysis on dialysis days carvedilol 12.5 mg PO BID 90 days [Commode As directed] [DISPOSABLE BED PADS Use as directed ONCE A DAY] [DISPOSABLE GLOVES - LARGE (1 box/month) Use as directed] docusate sodium 100 mg PO DAILY PRN 90 days levothyroxine 125 mcg PO DAILY 90 days multivitamin 1 tab PO DAILY omeprazole 20 mg PO DAILY HPI HPI Comments History of Present Illness Details The patient presents with her son for evaluation of multiple joint complaints. We use the [employer] translating service to facilitate the visit. She reports continued problems with low back pain, mostly on the right. At times the pain radiates to the right buttock down into the right thigh and posterior knee. When that occurs it is extremely disabling and she has trouble walking. She has not had any falls but feels unsteady on her feet at times. She has a positive SAMARA with slightly low complements but other serologies were negative including anti DNA and anti LEAH. She did have recent lumbar spine and knee x-ra ys. She takes acetaminophen currently for her symptoms. [facility] Medical History (Updated 01/30/23 @ 19:34 by Truong Colon MD) Chronic kidney disease, stage III (moderate) Obesity (BMI 30-39.9) Gastritis Benign essential hypertension GERD without esophagitis Acquired hypothyroidism Constipation Lumbar spondylosis Post laminectomy syndrome Connective tissue disease CKD (chronic kidney disease) Interstitial lung disease Osteopenia COVID-19 vaccine series completed PAC (premature atrial contraction) Sjogrens syndrome GERD (gastroesophageal reflux disease) Hypothyroid Breast cancer Osteoarthritis Raynauds disease SAMARA positive HTN (hypertension) Surgical History H/O lumpectomy Hx of cholecystectomy History of back surgery Family History Father Cancer Emphysema of lung Brother Emphysema of lung Mother Bone cancer Other Arthritis Social History Household Members: Spouse and Children Are you a primary geriatric care manager to a significant other at home: No Do you presently have visiting nurse or other home services: No Alcohol intake: never Patient Tobacco Use Status: Never used Tobacco Current occupational status: retired Cognitive needs: No Hearing needs: No Vision needs: No Review of Systems Const Details: Negative for appetite change, weight change, fever, chills, malaise and fatigue Eyes Details: Negative for vision change, dry eyes,headaches and dizziness ENT Details: Negative for hearing change, tinnitus, oral ulcer, nose bleeds and oral dryness. Card Details: Negative chest pain, edema and syncope Resp Details: Negative for SOB, cough and wheezing GI Details: Negative indigestion/heartburn, nausea, abdominal pain, bowel changes, diarrhea, constipation and bloody stool. Skin/Breast Details: Negative for itching, rash, hives, Raynaud's symptoms, sun sensitivity, and skin cancer Neuro Details: Negative for epilepsy, palsy, stroke, changes in speech, tingling and weakness Psych Details: Negative for anxiety, depression and stress Rogelio/Lymph Details: Negative for excessive bruising or bleeding. Physical Exam Vital Signs: Last Vital Signs Temp 97.2 F 02/01/23 08:56 Pulse 84 02/01/23 08:56 BP 120/68 02/01/23 08:56 Pulse Ox 97 02/01/23 08:56 Oxygen Delivery Method Room Air 02/01/23 08:56 BMI result Body Mass Index 34.3 APPEARANCE: Patient looks very uncomfortable moving about the room and lying down. She complains of back pain that radiates down the right leg. EYES no redness, pupils equal and reactive to light, eyelids normal. No temporal artery tenderness, redness or swelling. EXTREMITIES: No edema, no calf tenderness, normal peripheral pulses. NEURO: Oriented and alert x3. No focal weakness. Reflexes symmetric. JOINT EXAM: Cervical Spine:.? Full range of motion without pain; no tenderness. Thoracic Spine:.? No scoliosis.? No tenderness on palpation. Lumbar Spine:.? Alignment normal.? Moderate pain with flexion of 45 degrees with some paraspinal muscle tenderness. Chest Wall:.? No tenderness, swelling, increased warmth or erythema. Hands:. Right:? Normal pain-free range of motion with some slight swelling at the MCPs 1 through 3 but these are not tender. There is some slight bony thickening at the thumb IP but it is not tender. There is no flexor tendon triggering or tenderness, there is no tenderness in the PIP joints. There is no thenar atrophy or sensory loss. Left: Normal pain-free range of motion. S light thickening at the 1st 2 MCP joints without tenderness. Mild nontender bony enlargement at the thumb IP. Elsewhere there is no tenderness, swelling, increased warmth or erythema. There is no flexor tendon triggering, thenar atrophy or sensory loss. Wrists: Left: There is normal pain-free range of motion without tenderness. There is a firm soft tissue lump on the dorsum of the hand consistent with a ganglion cyst. It is not tender. Right:? Normal pain-free range of motion without tenderness, swelling, increased warmth or erythema. Elbows:. Normal pain-free range of motion without tenderness, swelling, increased warmth or erythema. Shoulders: Left: Mild pain with extremes of normal range of motion. Mild anterior tenderness with questionable abductor weakness but no adenopathy or swelling. Right:?? Full range of motion with mild discomfort at the extremes of normal range of motion. There is mild anterior and trapezial tenderness without adenopathy, weakness, swelling, increased warmth or erythema. Hips:.? Right: Lumbar, lateral, and groin pain with full flexion or more than 10 degrees of internal or external rotation.. Left: Slight lumbar pain with extremes of rotation. No groin pain with motion.. Hip bursa:.? Mild bilateral trochanteric tenderness. Knees:.? Right: Mild pain with extremes of flexion or extension. There is mild medial and slight lateral tenderness. There is mild patellofemoral crepitus wit hout redness, warmth or effusion. Left: Slight pain with extremes of flexion or extension with some minimal medial compartment tenderness but no effusion, redness or warmth. There is mild patellofemoral crepitus. Ankles:.? Normal pain-free range of motion without tenderness, swelling, increased warmth or erythema. Feet:.? Normal pain-free range of motion with some mild tenderness over the instep with there is a bony prominence it. There is also some 1st MTP bony enlargement, tenderness, hallux valgus deformity bilaterally. Other areas are without tenderness, swelling, increased warmth or erythema. Tender points: Mild tenderness to digital palpation at the occiput, trapezius, second rib, lateral epicondyle, knees, greater trochanter and gluteal area bilaterally. ? Results Reviewed Results Reviewed: Laboratory Tests 01/29/23 11:51 WBC 4.8 Hgb 12.0 ESR 50 H Creatinine 1.04 C-Reactive Protein 0.37 January 29 x-rays of the lumbar spine and knees show mild OA in the knees with some chondrocalcinosis. There is lumbar osteoarthritis at multiple levels. Assessment & Plan Assessment & Plan (1) Low back pain with right-sided sciatica: Code(s): M54.41 - Lumbago with sciatica, right side (2) Primary osteoarthritis of right knee: Code(s): M17.11 - Unilateral primary osteoarthritis, right knee Plan I do not see significant signs of any active inflammatory arthritis. The exam is consistent with osteoarthritis in the lumbar spine in the knees. Clearly the lower back issues are uncomfortable for her currently. She has been helped in the past with surgery and then some corticosteroid injection so I think she should go back to Pain Management to have another procedure considered. I will start her on some gabapentin at 100 mg at night to be increased slowly up to 300 mg as tolerated. This may help with some of the sciatica. She also has widely scattered tender points consistent with some fibromyalgia but the overwhelming symptoms at present look like they are mostly due to osteoarthritis. Follow-up in 4 months or so was recommended. Orders: Referrals Pain Management Referral M54.41 - Lumbago with sciatica, right side Medications: New gabapentin one at night for a week, then two at night for a week then 3 at night 90 caps 1RF M54.41 - Lumbago with sciatica, right side cane As directed - use when walking 1 ea 0RF M17.11 - Unilateral primary osteoarthritis, right knee Coding Level of Care Code Est Pt Level 3 (15192) Diagnoses Low back pain with right-sided sciatica M54.41 Primary osteoarthritis of right knee M17.11
[2023-02-01 08:56] VITALS: BP 120/68; PULSE 84; TEMP 36.2; O2SAT 97; BMI 34.3
== END 2023-02-01 09:21 | disposition home or self-care (01) ==
PROVIDERS: PCP Internal Medicine; Visit Provider Internal Medicine Rheumatology
DX: M54.41 Lumbago with sciatica, right side (principal); M17.11 Unilateral primary osteoarthritis, right knee
CPT/HCPCS: 99213

== ENCOUNTER → 2023-02-01 08:44 | Outpatient (BNVA) | payer OTHER, SELFPAY | PROVIDERS: PCP Internal Medicine; Visit Provider Internal Medicine Rheumatology | DX: M54.41 Lumbago with sciatica, right side (principal); M17.11 Unilateral primary osteoarthritis, right knee | CPT/HCPCS: 99212 ==

== ENCOUNTER 2023-02-06 10:27 | Outpatient (AMB) | payer OTHER, SELFPAY ==
--- NOTE | 2023-02-06 10:35 | A.OFFVIS_ITS ---
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 She also exeperiences transient pain in her right anterior thigh. Pain increases with walking, bending and movements. Denies any recent trauma, injury or falls. She was last seen in our office last February, with plans to proceed with SCS Implant but decided not to. She denies any injections since then and asking to repeat injections for her right leg pain. She also endorses significant pain in her lumbar and sacral regions. Patient reports she was recently prescribed gabapentin by Program Arranger but this causes her drowsiness and provides only mild benefit. Recent lumbar spine xray showed advanced degenerative disc disease extending from L2-L3 through L5-S1, with spondylosis and lumbar facet arthropathy, most pronounced at L4-L5 and L5-S1. Denies any recent cough, cold, infection, fever or other significant changes in medical history since last office visit. Patient denies any bladder or bowel incontinence or saddle anesthesia. Reports right lower exremity weakness. She was provided with script for cane on 01/29/23 but had no time yet to stop at [employer]. PRIOR 02/28/22: Patient is a pleasant 76 years old Khmer speaking female s/p Nevro HFX spinal cord stimulator trial on 02/22/[address] Deluna for post-laminectomy syndrome. She presents today for removal of her trial leads. Patient reports 100% pain relief for the first 5 days. She reports her right lower back pain with right lateral leg pain started to return on the 6th day with ongoing 30% pain relief today. Patient reports significant improvement in her mobility, functioning, social interaction, quality of life and better sleep during the first 5 days. Patient would like to discuss with her family the next steps for permanent SCS implant. The wound dressing was removed and the wound cleansed with ChloraPrep. The wounds are clean, no pathological discharge, no redness and no swelling. The sutures were removed today. There is no erythema or local temperature. Site dressed with bacitracin and Tegaderm following lead removal. Nohemi Seymour was present during today's encounter. Past Procedures: 02/22/22: Nevro HFX spinal cord stimulat or trial-100% pain relief for 5 days 08/31/21: Right Diagnostic L3-L4 and L4-L 5 MBBs ? No relief. 06/22/21: Right L3-L4-L5 MBBs ? 70% back p ain relief. No change in leg pain. 03/16/21: Right L4 TFESI ? 60% relief. L eg pain resolved. Back pain persisting. 01/12/21: Bilateral Caudal RAMONE with Katherine ter ? No relief. Addendum 03/20/23: Patient is interested to proceed with lumbar SCS implant after discussing this with her family and reaching out to Nohemi King for more questions. Patient reports she has noticed significant difference and increase in pain after SCS trial was completed and temporary leads were removed. The trialed and failed therapy has been reviewed with the patient and her family. The risks, consequences, alternatives, and benefits of various treatment options were discussed with the patient in great detail, including conservative management, injections and procedures. Plan to proceed with the SCS implant with the Nevro system under sedation and fluoroscopy. [facility] Medical History Chronic kidney disease, stage III (moderate) Obesity (BMI 30-39.9) Gastritis Benign essential hypertension GERD without esophagitis Acquired hypothyroidism Constipation Lumbar spondylosis Post laminectomy syndrome Connective tissue disease CKD (chronic kidney disease) Interstitial lung disease Osteopenia COVID-19 vaccine series completed PAC (premature atrial contraction) Sjogrens syndrome GERD (gastroesophageal reflux disease) Hypothyroid Breast cancer Osteoarthritis Raynauds disease SAMARA positive HTN (hypertension) Surgical History H/O lumpectomy Hx of cholecystectomy History of back surgery Family History Father Cancer Emphysema of lung Brother Emphysema of lung Mother Bone cancer Other Arthritis Social History Household Members: Spouse and Children Are you a primary date night caregiver to a significant other at home: No Do you presently have visiting nurse or other home services: No Alcohol intake: never Patient Tobacco Use Status: Never used Tobacco Current occupational status: retired Cognitive needs: No Hearing needs: No Vision needs: No Review of Systems Const All systems reviewed & are unremarkable except as noted in HPI and below Physical Exam Vital Signs: Last Vital Signs Pulse 66 02/06/23 10:41 BP 159/72 H 02/06/23 10:41 Pulse Ox 97 02/06/23 10:41 Oxygen Delivery Method Room Air 02/06/23 10:41 BMI result Body Mass Index 34.1 General: Appears afebrile. Alert and oriented. Mood and affect appropriate. Follows and participates in conversation appropriately. Respiratory effort is unlabored. Able to transition from sit to stand unassisted. Antalgic, slow gait. Ambulates with bilaterally normal heel strike and toe off, reports unsteadiness on the right. Low-Back: Extension and flexion reproduces pain. Seated SLR test positive on the right, pain worsened with dorsiflexion. Results Reviewed Results Reviewed: XR LUMBOSACRAL SPINE 01/29/23 CLINICAL INFORMATION: Lower back pain. COMPARISON: Portions of the MRI lumbar spine dated 12/09/2020. TECHNIQUE: AP and lateral views of the lumbar spine and lateral view of the lumbosacral junction. FINDINGS: There is bony demineralization. At L2-L3 through L5-S1, there is moderate disc space narrowing, with vacuum disc phenomenon. The remaining disc spaces are relatively well-maintained. No acute fracture or spondylolisthesis seen. There is multi-level mild to moderate lumbar spondylosis. There is facet arthropathy, most pronounced at L4-L5 and L5-S1. The paravertebral soft tissues are unremarkable. There is retained contrast within colonic diverticula. There are right upper quadrant surgical clips. IMPRESSION: 1. There is moderately severe degenerative disc disease extending from L2-L3 through L5-S1, with spondylosis. 2. There is lumbar facet arthropathy, most pronounced at L4-L5 and L5-S1. Assessment & Plan Assessment & Plan (1) Post laminectomy syndrome: Comment: Hx Spinal Cord Stimulator Trial 02/22/2022 Code(s): M96.1 - Postlaminectomy syndrome, not elsewhere classified (2) Low back pain with right-sided sciatica: Code(s): M54.41 - Lumbago with sciatica, right side (3) Lumbar spondylosis: Code(s): M47.816 - Spondylosis without myelopathy or radiculopathy, lumbar region Plan Schedule Right L4-L5 TFESI with local and fluoroscopy. Patient is not interested to proceed with SCS implant for post-laminectomy pain syndrome. Patient not on anticoagulant. All questions were answered and the patient is in agreement of plan. Follow-up after injections and sooner as needed. Justification for interventional therapy: ? Patient with average pain > 6/10 ? Patient has exhausted conservative therapy ? Patient unable to tolerate physical therapy due to pain The risks, consequences, alternatives, and benefits of various treatment options were discussed with the patient in great detail, including conservative management, injections and procedures. Patient is aware of hyperglycemic effects of steroids. Coding Level of Care Code Est Pt Level 4 (08442) Diagnoses Post laminectomy syndrome M96.1 Low back pain with right-sided sciatica M54.41 Lumbar spondylosis M47.816
[2023-02-06 10:41] VITALS: BP 159/72; PULSE 66; O2SAT 97; BMI 34.1
== END 2023-02-06 10:53 | disposition home or self-care (01) ==
PROVIDERS: PCP Internal Medicine; Visit Provider Nurse Practitioner Family
DX: M96.1 Postlaminectomy syndrome, not elsewhere classified (principal); M54.41 Lumbago with sciatica, right side; M47.816 Spondylosis without myelopathy or radiculopathy, lumbar region
CPT/HCPCS: 99214

== ENCOUNTER → 2023-02-06 10:27 | Outpatient (BNVA) | payer OTHER, SELFPAY | PROVIDERS: PCP Internal Medicine; Visit Provider Nurse Practitioner Family | DX: M54.41 Lumbago with sciatica, right side (principal); M96.1 Postlaminectomy syndrome, not elsewhere classified; M47.816 Spondylosis without myelopathy or radiculopathy, lumbar region | CPT/HCPCS: 99212 ==

== ENCOUNTER 2023-02-06 14:27 | Outpatient (AMB) | payer OTHER, SELFPAY ==
--- NOTE | 2023-02-06 14:29 | MHC.PC.OV ---
Vital Signs 02/06/23 14:30 Height 5 ft 10 in Weight 238 lb 8 oz BMI 34.2 BP 142/78 H Blood Pressure Location Lt brachial Position Sitting Pulse 78 Pulse Source Pulse Oximeter Pulse Oximetry (%) 98 Oxygen Delivery Method Room Air Intake Visit Reasons: hypothy,HTN,gaitinstability,Sjogren'ssyndrome,CKD Acquisitions Assistant Required: No Accompanied by: Self / Same As Patient Allergies Penicillins [PENICILLINS] Allergy (Intermediate, Verified 06/06/24 13:48) rash senna Allergy (Intermediate, Verified 06/06/24 13:48) rash Medication List - Last Reconciled 02/06/23 by Truong Colon MD amlodipine 10 mg PO DAILY ammonium lactate 12% 1 appl topical BID bisacodyl 5 mg PO BEDTIME 90 days bisacodyl 10 mg PO QAM calcitriol 1 mcg orally weekly; administer after dialysis on dialysis days cane As directed - use when walking carvedilol 12.5 mg PO BID 90 days [Commode As directed] [DISPOSABLE BED PADS Use as directed ONCE A DAY] [DISPOSABLE GLOVES - LARGE (1 box/month) Use as directed] docusate sodium 100 mg PO DAILY PRN 90 days gabapentin one at night for a week, then two at night for a week then 3 at night levothyroxine 125 mcg PO DAILY 90 days multivitamin 1 tab PO DAILY omeprazole 20 mg PO DAILY Tobacco use date assessed: 02/06/23 Fall risk assessment: No Falls in past year Last assessed Fall Risk: 02/06/23 Dental Screening Dental Screen Date: 02/06/23 Did you have a dental visit in the last 12 months?: Yes Did you have a dental problem in the last 6 months where you did not have access to dental care?: No Was dental information given to patient?: Patient has dentist HPI hypothy,HTN,gaitinstability,Sjogren'ssyndrome,CKD HPI Details Patient comes in today for her follow-up visit States that she has been experiencing a persistent ringing in both of her ears x 3 to 4 months at least She has an appt with neurology on 02/20/23 in [place] for further evaluation of this issue as well as for her recurrent headaches and dizziness Patient also continues to experience increased pain over her lower back and over multiple joints She is scheduled to see pain management for a trial of back injection in a couple weeks She denies any chest pains, no increased shortness of breath No nausea/vomiting, no abdominal pain No change in bowel habits noted She had her follow-up labs done last week - to discuss her results [facility] Medical History Ambulates with cane Difficulty swallowing Osteoarthritis of right knee BPV (benign positional vertigo) Gait instability Cervicogenic headache Cervicalgia Vertigo Chronic kidney disease, stage III (moderate) Obesity (BMI 30-39.9) Gastritis Benign essential hypertension GERD without esophagitis Acquired hypothyroidism Constipation Lumbar spondylosis Post laminectomy syndrome Connective tissue disease Interstitial lung disease Osteopenia PAC (premature atrial contraction) Sjogrens syndrome Hypothyroid Breast cancer Raynauds disease SAMARA positive Surgical History 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) Hx of colonoscopy Hx of tubal ligation H/O varicose vein stripping History of cataract surgery H/O lumpectomy Hx of cholecystectomy History of back surgery Family History Father Emphysema of lung Cancer Brother Emphysema of lung Mother Bone cancer Son PONV (postoperative nausea and vomiting) Other Arthritis Social History Household Members: Significant Other and Children Housing: Apartment Are you a primary wound care specialist to a significant other at home: No Do you presently have visiting nurse or other home services: No Alcohol intake: former Comment: pt reports this is her baseline pain Patient Tobacco Use Status: Never used Tobacco e-Cigarette/Vaping Use: Never Used Second Hand Smoke Exposure: No service: No Current occupational status: retired Cognitive needs: No Hearing needs: No Vision needs: Yes (Glasses) Questionnaire PHQ-9 Over the last 2 weeks, how often have you been bothered by any of the following problems? 1. Little interest or pleasure in doing things: not at all 2. Feeling down, depressed, or hopeless: not at all 3. Trouble falling or staying asleep, or sleeping too much: not at all 4. Feeling tired or having little energy: not at all 5. Poor appetite or overeating: not at all 6. Feeling bad about yourself - or that you are a failure or have let yourself or your family down: not at all 7. Trouble concentrating on things, such as reading the newspaper or watching television: not at all 8. Moving or speaking so slowly that other people could have noticed. Or the opposite - being so fidgety or restless that you have been moving around a lot more than usual: not at all 9. Thoughts that you would be better off or of hurting yourself in some way: not at all Total score: 0 Depression Screening Interpretation: Negative Depression Screening Done: Yes 18605 - PHQ-9 Billing: Yes Source: Developed by Drs. Timoteo Covington, Lucy Arndt, Guevara Jewell and colleagues, with an educational tere from [employer] ([employer] Thrive Questionnaire Date Thrive assessed: 02/06/23 I am a: Patient What is your living situation today?: I have a steady place to live Within the past 12 months, did the food you bought not last and you didn't have the money to get more?: Never true Within the past 12 months, did you worry whether your food would run out before you got money to buy more?: Never true Do you have trouble paying for medicines?: No Do you have trouble getting transportation to medical appointments?: No Do you have trouble paying your heating and electricity bill?: No Do you have trouble taking care of your child, family member or friend?: No Do you have trouble with day-to-day activities such as bathing, preparing meals, shopping, managing finances, etc.?: No Are you currently unemployed and looking for a job?: No Are you interested in more education?: No Please select the resources that you would like help with: None Currently or been in a relationship where the following occur: no concerns reported AUDIT C Alcohol Use Questionnaire (AUDIT-C) 1. How often do you have a drink containing alcohol?: Never Total Score: 0 Score Reviewed/Action Taken: Yes MO-7 AMB Questionnaire MO-7 Date MO - 7 assessed: 02/06/23 Feeling nervous, anxious, or on edge: 0 = Not at all Not being able to stop or control worryin = Not at all Worrying too much about different things: 0 = Not at all Trouble relaxin = Not at all Being so restless that it is hard to sit still: 0 = Not at all Becoming easily annoyed or irritable: 0 = Not at all Feeling afraid as if something awful might happen: 0 = Not at all Total MO-7 score (0-4 normal; 5-9 mild; 10-14 moderate; 15-21 severe): 0 Source: Developed by Drs. Timoteo Covington, Lucy Arndt, Guevara Jewell and colleagues, with an educational tere from [employer] ([employer] Physical exam (Primary Care) Vital Signs: Last Vital Signs Pulse 78 02/06/23 14:30 BP 142/78 H 02/06/23 14:30 Pulse Ox 98 02/06/23 14:30 Oxygen Delivery Method Room Air 02/06/23 14:30 BMI result Body Mass Index 34.2 Tobacco/Smoking Status: Tobacco use Status Tobacco use date assessed 02/06/23 02/06/23 14:37 Patient Tobacco Use Status Never used Tobacco 02/06/23 14:37 PHQ-9: PHQ-9 Score PHQ-9: Total score 0 02/06/23 15:04 Depression Screening Interpretation: Negative Thrive Assessment: Date of Thrive Assessment Date Thrive assessed 02/06/23 02/06/23 14:37 Currently or been in a relationship where the following occur: no concerns reported Results Reviewed Results Reviewed: Laboratory Tests 01/29/23 11:51 WBC 4.8 Hgb 12.0 Hct 37.8 Plt Count 212 D Sodium 141 Potassium 4.6 Creatinine 1.04 Estimated GFR 51 Fasting Glucose 84 Calcium 9.9 AST 21 ALT 11 Triglycerides 191 H Cholesterol 165 LDL Cholesterol, Calc 89 HDL Cholesterol 38 L Vitamin B12 385 25-OH Vitamin D Total 46.9 TSH 0.59 Free T4 1.11 Coding Level of Care Code Est Pt Level 4 (93505) Diagnoses Frequent headaches R51.9 Dizziness of unknown etiology R42 Tinnitus, bilateral H93.13 Benign essential hypertension I10 Acquired hypothyroidism E03.9 Chronic gastritis without bleeding, unspecified gastritis type K29.50 Gastritis type: unspecified gastritis Chronicity: chronic Gastritis bleeding: without bleeding Stage 3b chronic kidney disease N18.32 Chronic kidney disease stage 3 subtype: stage 3b (GFR 30-44) Sjogren's syndrome without extraglandular involvement M35.00 Sjogren's organ involvement: without extraglandular involvement Constipation, unspecified constipation type K59.00 Constipation type: unspecified constipation type Lumbar spondylosis M47.816 Primary osteoarthritis of right knee M17.11 Obesity (BMI 30-39.9) E66.9
[2023-02-06 14:30] VITALS: BP 142/78; PULSE 78; O2SAT 98; BMI 34.2
== END 2023-02-06 15:12 | disposition home or self-care (01) ==
PROVIDERS: PCP Internal Medicine; Visit Provider Internal Medicine
DX: R51.9 Headache, unspecified (principal); R42 Dizziness and giddiness; H93.13 Tinnitus, bilateral; I10 Essential (primary) hypertension; E03.9 Hypothyroidism, unspecified; K29.50 Unspecified chronic gastritis without bleeding; N18.32 Chronic kidney disease, stage 3b; M35.00 Sjogren syndrome, unspecified; K59.00 Constipation, unspecified; M47.816 Spondylosis without myelopathy or radiculopathy, lumbar region; M17.11 Unilateral primary osteoarthritis, right knee; E66.9 Obesity, unspecified
CPT/HCPCS: 99499

== ENCOUNTER 2023-02-20 14:26 | Outpatient (AMB) | payer OTHER, SELFPAY ==
--- NOTE | 2023-02-20 14:39 | MHC.OFFVIS ---
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 She is here with her son, Stanley. Pt reports she has been having dizzy spells and balance issues for about a year now. She also c/o ringing in both ears that is constant and she feels is contributing to her balance issues. She denies having ENT evaluation. Net Lead Architect Required: No Allergies Penicillins [PENICILLINS] Allergy (Intermediate, Verified 02/20/23 14:39) rash senna Allergy (Intermediate, Verified 02/20/23 14:39) rash Medication List - Last Reconciled 02/20/23 by Anna Gabriel MD amlodipine 10 mg PO DAILY ammonium lactate 12% 1 appl topical BID bisacodyl 5 mg PO BEDTIME 90 days bisacodyl 10 mg PO QAM calcitriol 1 mcg orally weekly; administer after dialysis on dialysis days cane As directed - use when walking carvedilol 12.5 mg PO BID 90 days [Commode As directed] [DISPOSABLE BED PADS Use as directed ONCE A DAY] [DISPOSABLE GLOVES - LARGE (1 box/month) Use as directed] docusate sodium 100 mg PO DAILY PRN 90 days gabapentin one at night for a week, then two at night for a week then 3 at night levothyroxine 125 mcg PO DAILY 90 days multivitamin 1 tab PO DAILY omeprazole 20 mg PO DAILY HPI HPI Comments History of Present Illness Details 77y/o female comes for evaluation of dizziness, feeling off balance, tinnitus, headaches and neck pain. She describes the dizziness as a spinning sensation and sensation of falling . This started about 1 year ago. It was mild initially but it is more frequent now. It is more when she turns her head. she also has tinnitus . she denies hearing problems or double vision. she denies any speech issues or weakness or swallowing issues. she also has frontal headaches for past 1 year which she describes as pressure. It is more when she wakes up at night and in the morning.she denies any nausea, light or noise sensitivity. The headaches lasts 4-5 hrs and she takes tylenol she has about 3-4 headaches a week. [facility] Medical History (Updated 02/20/23 @ 15:12 by Anna Gabriel MD) Gait instability Cervicogenic headache Cervicalgia Vertigo Gait instability Chronic kidney disease, stage III (moderate) Obesity (BMI 30-39.9) Gastritis Benign essential hypertension GERD without esophagitis Acquired hypothyroidism Constipation Lumbar spondylosis Post laminectomy syndrome Connective tissue disease CKD (chronic kidney disease) Interstitial lung disease Osteopenia COVID-19 vaccine series completed PAC (premature atrial contraction) Sjogrens syndrome GERD (gastroesophageal reflux disease) Hypothyroid Breast cancer Osteoarthritis Raynauds disease SAMARA positive HTN (hypertension) Surgical History H/O varicose vein stripping History of cataract surgery H/O lumpectomy Hx of cholecystectomy History of back surgery Family History Father Cancer Emphysema of lung Brother Emphysema of lung Mother Bone cancer Other Arthritis Social History Household Members: Spouse and Children Are you a primary resident caregiver to a significant other at home: No Do you presently have visiting nurse or other home services: No Alcohol intake: never Patient Tobacco Use Status: Never used Tobacco Current occupational status: retired Cognitive needs: No Hearing needs: No Vision needs: No Review of Systems Const Denies chills, Denies fatigue, Denies fever(s) and Reports headache(s) (recurrent) Eyes Reports dry eyes ENT Reports dysphagia (reports (+) problems with swallowing at times lately), Reports dizziness (on and off), Reports dry mouth, Denies otalgia, Reports headache(s) (recurrent), Denies neck pain, Denies odynophagia and Denies sore throat Card Denies chest pain, Denies rapid heart rate, Denies irregular heart rhythm, Denies palpitations and Denies dyspnea Resp Denies chest congestion, Denies cough, Denies dyspnea and Denies wheezing GI Denies abdominal pain, Denies constipation, Reports dysphagia (reports (+) problems with swallowing at times lately), Denies diarrhea, Denies nausea, Denies odynophagia and Denies vomiting Denies hematuria, Denies urinary frequency, Denies dysuria and Denies urinary urgency Musc Reports abnormal gait (unsteady), Reports back pain (over the lower back - chronic), Denies arthralgias, Denies muscle weakness and Denies neck pain Skin/Breast Denies rash Neuro Reports abnormal gait (unsteady), Reports dizziness (on and off), Reports headache(s) (recurrent) and Denies paresthesias Psych Denies anxiety Endo Denies fatigue and Denies palpitations Rogelio/Lymph Denies easy bruising Aller/Immun Denies wheezing Physical Exam Vital Signs: Last Vital Signs Pulse 68 02/20/23 14:40 Resp 17 02/20/23 14:40 BP 144/62 H 02/20/23 14:40 Pulse Ox 97 02/20/23 14:40 Oxygen Delivery Method Room Air 02/20/23 14:40 BMI result Body Mass Index 34.2 Const General: cooperative, healthy appearing and comfortable Nutritional Appearance: overweight Orientation/consciousness: patient oriented x3 Eyes Pupils: Equal, round and reactive pupils present Neuro Other: neck- restricted range of motion with tightness in bilateral splenius levator and posterior cervical muscles . Nystagmus and vertigo on lateral gaxe General: patient oriented x3, tone normal, moves all extremities and no focal motor deficits Cranial nerves: Yes Facial sensation intact/muscles of mastication intact, Yes Equal, round and reactive pupils present, No Bilaterally intact EOM present, Yes Normal facial strength present, Yes Midline tongue present and Yes Symmetric palate elevation present Cognition (Neuro): normal cognition Gait exam (Neuro): Antalgic gait present Motor exam (neuro): 5/5 motor strength present throughout and Normal motor muscle tone present throughout Deep tendon reflexes (DTR's): Right triceps reflex intensity grade: 1+, Left triceps reflex intensity grade: 1+, Rt Biceps (C5, C6): 1+, Left biceps reflex intensity grade: 1+, Right brachioradialis reflex intensity grade: 1+, Left brachioradialis reflex intensity grade: 1+, Right patellar reflex intensity grade: 1+ and Left patellar reflex intensity grade: 1+ Coordination: [id number] test normal Assessment & Plan Assessment & Plan (1) Vertigo: Comment: BPV Code(s): R42 - Dizziness and giddiness (2) Cervicalgia: Code(s): M54.2 - Cervicalgia (3) Cervicogenic headache: Code(s): G44.86 - Cervicogenic headache (4) Gait instability: Comment: musculoskeletal and related to vertigo Code(s): R26.81 - Unsteadiness on feet Plan I will trial her on flexeril 10mg qhs and refer her to PT for myofacsial release and gait training. D/C gabapentin Vestibular therapy for vertigo Orders: Orders PT Evaluation and Treatment Today G44.86 - Cervicogenic headache, M54.2 - Cervicalgia, R26.81 - Unsteadiness on feet, R42 - Dizziness and giddiness Medications: New cyclobenzaprine 10 mg PO BEDTIME 30 tabs 3RF Coding Level of Care Code Est Pt Level 4 (09516) Diagnoses Vertigo R42 Cervicalgia M54.2 Cervicogenic headache G44.86 Gait instability R26.81
[2023-02-20 14:40] VITALS: BP 144/62; PULSE 68; RESP 17; O2SAT 97; BMI 34.2
== END 2023-02-20 15:25 | disposition home or self-care (01) ==
PROVIDERS: PCP Internal Medicine; Visit Provider Psychiatry & Neurology Neurology
DX: R42 Dizziness and giddiness (principal); M54.2 Cervicalgia; G44.86 Cervicogenic headache; R26.81 Unsteadiness on feet
CPT/HCPCS: 99214

== ENCOUNTER → 2023-02-20 14:26 | Outpatient (BNVA) | payer OTHER, SELFPAY | PROVIDERS: PCP Internal Medicine; Visit Provider Psychiatry & Neurology Neurology | DX: M54.2 Cervicalgia (principal); R42 Dizziness and giddiness; G44.89 Other headache syndrome; R26.81 Unsteadiness on feet | CPT/HCPCS: 99212 ==

== ENCOUNTER 2023-02-22 10:31 | Outpatient (AMB) | payer OTHER, SELFPAY ==
[2023-02-22 10:35] VITALS: BP 138/76; BMI 34.2
--- NOTE | 2023-02-22 10:35 | MHC.OFFVIS ---
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 ingrown hair in pelvic area. Last colonoscopy 1 yr ago,normal per patient. Last pap 2 yrs ago,normal per patient. Experimental Assembler Required: Yes Experimental Assembler Language: South Sudanese Information Interpreted: non-clinical & clinical Wordpress Developer: Wordpress Developer Present Accompanied by: Self / Same As Patient Allergies Penicillins [PENICILLINS] Allergy (Intermediate, Verified 02/22/23 10:36) rash senna Allergy (Intermediate, Verified 02/22/23 10:36) rash Medication List - Last Reconciled 02/22/23 by Barbara Fried CNM amlodipine 10 mg PO DAILY bisacodyl 5 mg PO BEDTIME 90 days calcitriol 1 mcg orally weekly; administer after dialysis on dialysis days cane As directed - use when walking carvedilol 12.5 mg PO BID 90 days [Commode As directed] cyclobenzaprine 10 mg PO BEDTIME [DISPOSABLE BED PADS Use as directed ONCE A DAY] [DISPOSABLE GLOVES - LARGE (1 box/month) Use as directed] docusate sodium 100 mg PO DAILY PRN 90 days levothyroxine 125 mcg PO DAILY 90 days multivitamin 1 tab PO DAILY omeprazole 20 mg PO DAILY Post menopausal: Yes HPI 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 She used to go to [facility]. She said she had breast cancer in 2013 she had radiation therapy and the lumpectomy. She says that she had a Pap smear done last year with her doctor [facility] who said that she still should get checked for uterine ovarian and cervical cancer and did a Pap smear. She has not been sexually active for the last 20 years because of her 's health issues. She does have issues with her back and arthritis and if she slouches it really hurts her back. She has urinary incontinence and wears a pad for it. REPLACED BY [facility] Medical History (Updated 02/22/23 @ 11:41 by Barbara Fried CNM) Gait instability Cervicogenic headache Cervicalgia Vertigo Gait instability Chronic kidney disease, stage III (moderate) Obesity (BMI 30-39.9) Gastritis Benign essential hypertension GERD without esophagitis Acquired hypothyroidism Constipation Lumbar spondylosis Post laminectomy syndrome Connective tissue disease CKD (chronic kidney disease) Interstitial lung disease Osteopenia COVID-19 vaccine series completed PAC (premature atrial contraction) Sjogrens syndrome GERD (gastroesophageal reflux disease) Hypothyroid Breast cancer Osteoarthritis Raynauds disease SAMARA positive HTN (hypertension) Surgical History (Updated 02/22/23 @ 10:40 by Daphne Webster CMA) Hx of tubal ligation H/O varicose vein stripping History of cataract surgery H/O lumpectomy Hx of cholecystectomy History of back surgery Family History Father Cancer Emphysema of lung Brother Emphysema of lung Mother Bone cancer Other Arthritis Social History Household Members: Spouse and Children Are you a primary personal care service provider to a significant other at home: No Do you presently have visiting nurse or other home services: No Alcohol intake: never Patient Tobacco Use Status: Never used Tobacco Current occupational status: retired Cognitive needs: No Hearing needs: No Vision needs: No Female Reproductive History Menstrual control method: permanent sterilization Menopause type: natural Total pregnancies: 2 Full term: 2 Number of Living Children: 2 Physical Exam Vital Signs: Last Vital Signs BP 138/76 02/22/23 10:35 BMI result Body Mass Index 34.2 Const Other: PE findings consistent with postmenopausal female age 77. 5 ft 10. Scar from breast surgery no masses palpable scar from . Patient is not able to maneuver right leg out because of knee problems so speculum exam challenging vagina is pink and moist cervix multiparous high in vaginal vault uterus difficult to feel nontender absolutely no prolapse noted. Nontender exam patient not able to do a Kegel during the exam. (she says she is able to do it at home). Atrophic vaginal mucosa but no dryness. General: healthy appearing, comfortable, no acute distress, well developed and alert Nutritional Appearance: average body habitus Orientation/consciousness: patient oriented x3 Limitations: no limitations HEENT Head: Yes normocephalic Neck Neck: Yes normal visual inspection Chest Chest palpation & inspection: normal inspection of the chest Breast/axilla inspection: normal inspection of the breasts and normal inspection of the axillae Breast/axilla palpation: normal palpation of the breasts and normal palpation of the axillae Resp Effort & Inspection: normal respiratory effort GI Inspection: Yes normal to inspection, No Abdominal wall edema and No distended Palpation (GI): Soft to palpation and nontender General: Yes bladder normal to palpation External Female Exam: normal external appearance and normal appearance of the urethra Speculum Exam - Vagina: normal appearance of the vagina, normal palpation and normal vaginal discharge Speculum Exam - Cervix: normal appearance of the cervix, normal palpation and nontender Bimanual exam- vagina & uterus: normal bimanual exam, normal palpation, uterine size normal, bladder normal to palpation, consistency normal, normal palpation, uterine mobility normal, uterine shape normal, No Cervical tenderness present, non-tender and no cervical motion tenderness Bimanual Exam- Adnexa, other: normal adnexae, no masses, normal and No adnexal tenderness Neuro General: patient oriented x3 Assessment & Plan Assessment & Plan (1) Women's annual routine gynecological examination: Code(s): Z01.419 - Encounter for gynecological examination (general) (routine) without abnormal findings (2) Urinary incontinence: Comment: Declines PT referral for now states she had stable to do the Kegel's better at home. Given instructions en espanol. Code(s): R32 - Unspecified urinary incontinence Plan -----Discussed in this visit the following: healthy balanced diet, regular and consistent exercise, getting recommended health screens, doing the best she can for her particular health concerns, kegel exercises, pap smear screening and followup recommendations, mammography screening and SBE, normal changes in cycles in her life stage--- Discussed that Pap smears and not normally done after age 65. She states she has no history of abnormals. 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 Patient gets her mammograms yearly and has though scheduled already. I did offer her a PT referral for pelvic floor relaxation for her incontinence but she declined it for now but she did except Kegel instructions in [place]ese which I gave her to take home to clarified that she is doing the Kegel's correctly. I also told her she could discuss this with her primary care provider as well. RTC 1 year. . Coding Level of Care Code New Pt Prev Care >65yr (23144) Diagnoses Women's annual routine gynecological examination Z01.419 Urinary incontinence R32
== END 2023-02-22 11:42 | disposition home or self-care (01) ==
PROVIDERS: PCP Internal Medicine; Visit Provider Advanced Practice Midwife
DX: Z01.419 Encounter for gynecological examination (general) (routine) without abnormal findings (principal); R32 Unspecified urinary incontinence
CPT/HCPCS: 99387

== ENCOUNTER → 2023-02-22 10:31 | Outpatient (BNVA) | payer OTHER, SELFPAY | PROVIDERS: PCP Internal Medicine; Visit Provider Advanced Practice Midwife ==

== ENCOUNTER 2023-03-14 06:02 | Outpatient (REF) | payer OTHER, SELFPAY ==
--- NOTE | ~2023-03-14 | FL_ITS ---
EXAMINATION: XR FLUOROSCOPY WITH IMAGES CLINICAL INFORMATION: Lumbago with sciatica, right side. COMPARISON: None available. TECHNIQUE: Fluoroscopy Supervised By: Dr. Jon Deluna. Fluoroscopy Time: 0.3 minutes. Cumulative Dose: 15.8 mGy. DAP: 1.77 Gycm2. Images: 2. FINDINGS: Images demonstrate needle placement contrast adjacent to the right lateral L4 vertebrae FL/FL guidance in treatment room IMPRESSION: Fluoroscopy guidance for pain management procedure.
== END 2023-03-14 06:03 | disposition home or self-care (01) ==
LOC: CF 06:02
PROVIDERS: Visit Provider Internal Medicine
DX: M54.41 Lumbago with sciatica, right side (principal); G89.29 Other chronic pain
CPT/HCPCS: 64483; 64484; J1100; J2795; Q9967

== ENCOUNTER 2023-03-14 10:05 | Outpatient (AMB) | payer OTHER, SELFPAY ==
[2023-03-14 11:00] VITALS: BP 134/80; PULSE 80; RESP 16; O2SAT 97; BMI 34.1
--- NOTE | 2023-03-14 11:00 | MHC.OFFVIS ---
Intake Vital Signs 03/14/23 11:00 03/14/23 11:01 Height 5 ft 10 in 5 ft 10 in Weight 238 lb 238 lb BMI 34.1 34.1 BP 134/80 130/80 Blood Pressure Location Lt brachial Lt brachial Position Sitting Sitting Respiration 16 18 Pulse 80 88 Pulse Source Pulse Oximeter Pulse Oximeter Pulse Oximetry (%) 97 98 Oxygen Delivery Method Room Air Room Air Comment Pre-Op Post-Op Intake Visit Reasons: Right L4-L5 TFESI Allergies Penicillins [PENICILLINS] Allergy (Intermediate, Verified 02/22/23 10:36) rash senna Allergy (Intermediate, Verified 02/22/23 10:36) rash HPI Right L4-L5 TFESI HPI Details Patient presents for scheduled procedure. Denies any recent cough, cold, infection, fever or other significant changes in medical history since last office visit. [facility] Medical History (Updated 03/14/23 @ 17:09 by Jon Deluna MD) Gait instability Cervicogenic headache Cervicalgia Vertigo Gait instability Chronic kidney disease, stage III (moderate) Obesity (BMI 30-39.9) Gastritis Benign essential hypertension GERD without esophagitis Acquired hypothyroidism Constipation Lumbar spondylosis Post laminectomy syndrome Connective tissue disease CKD (chronic kidney disease) Interstitial lung disease Osteopenia COVID-19 vaccine series completed PAC (premature atrial contraction) Sjogrens syndrome GERD (gastroesophageal reflux disease) Hypothyroid Breast cancer Osteoarthritis Raynauds disease SAMARA positive HTN (hypertension) Surgical History (Updated 02/22/23 @ 10:40 by Daphne Webster CMA) Hx of tubal ligation H/O varicose vein stripping History of cataract surgery H/O lumpectomy Hx of cholecystectomy History of back surgery Family History Father Cancer Emphysema of lung Brother Emphysema of lung Mother Bone cancer Other Arthritis Household Members: Spouse and Children Are you a primary healthcare administrative assistant to a significant other at home: No Do you presently have visiting nurse or other home services: No Alcohol intake: never Patient Tobacco Use Status: Never used Tobacco Current occupational status: retired Cognitive needs: No Hearing needs: No Vision needs: No Physical Exam Vital Signs: Last Vital Signs Pulse 88 03/14/23 11:01 Resp 18 03/14/23 11:01 BP 130/80 03/14/23 11:01 Pulse Ox 98 03/14/23 11:01 Oxygen Delivery Method Room Air 03/14/23 11:01 BMI result Body Mass Index 34.1 Office Procedures Details: Transforaminal epidural steroid injection, right L4-5 After obtaining written consent, pre-procedure blood pressure and heart rate were stable and recorded in the nursing record. The patient was placed in the prone position on the fluoroscopy table. The lumbosacral area was prepped with chloraprep, allowed to dry and draped in sterile fashion. Using fluoroscopy, the skin overlying our target was anesthetized with 0.5% lidocaine. A 22 gauge 3.5 inch spinal needle was advanced to the safe triangle in the upper pole of the right L4 foramen. No paresthesias were elicited with needle placement and aspiration was negative for blood and CSF. Correct needle position was confirmed with approximately 1 ml contrast dye (Omnipaque 180 mg/ml) injected under real-time fluoroscopy. No evidence of vascular or intrathecal uptake was seen and there was both epidural and peripheral spread of the contrast agent. 10 mg dexamethasone plus 1 ml containing 0.5% lidocaine was slowly injected. The needle was flushed and removed. The skin was cleansed and a sterile bandages were applied. The patient tolerated the procedure well and no complications were encountered. Following the procedure the patient's vital signs were stable. The patient was discharged home in good condition with post-procedural instructions. Time Out: Immediately prior to the procedure, the following was verbally confirmed that there is a signed consent form and that the correct patient, planned procedure, site and side are consistent with documentation and that necessary equipment and/or blood products are available prior to the start of the case. Complications: none EBL: <5 cc [address]6481 - Lumbar/Sacral Procedure code (CPT) selection complete Assessment & Plan Assessment & Plan (1) Low back pain with right-sided sciatica: Code(s): M54.41 - Lumbago with sciatica, right side Qualifiers: Chronicity: chronic Back pain laterality: right Qualified Code(s): M54.41 - Lumbago with sciatica, right side; G89.29 - Other chronic pain Plan Patient is status post right L4-5 TFESI. Patient tolerated procedure well and was discharged home in stable condition with discharge instructions. All questions were answered. We will follow-up via telephone or in clinic to assess response to therapy. A follow-up appointment was made during today's visit. Orders: Orders FL guidance in treatment room Today M54.41 - Lumbago with sciatica, right side Coding Level of Care Code Procedure Only Diagnoses Chronic right-sided low back pain with right-sided sciatica M54.41; G89.29 Chronicity: chronic Back pain laterality: right CPT Codes Transforaminal Epidural Steroid Inj - TESI 3: 22709 - Lumbar/Sacral ([id number])
[2023-03-14 11:01] VITALS: BP 130/80; PULSE 88; RESP 18; O2SAT 98; BMI 34.1
== END 2023-03-14 11:04 | disposition home or self-care (01) ==
LOC: HO.PMCPRC 10:05
PROVIDERS: PCP Internal Medicine; Visit Provider Internal Medicine
DX: M54.41 Lumbago with sciatica, right side (principal); G89.29 Other chronic pain
CPT/HCPCS: 64483; 64484

== ENCOUNTER 2023-04-13 08:29 | Outpatient (AMB) | payer OTHER, SELFPAY ==
--- NOTE | 2023-04-13 08:35 | A.OFFVIS_ITS ---
Intake Vital Signs 04/13/23 08:36 Height 5 ft 10 in Weight 237 lb BMI 34.0 Blood Pressure Location Lt brachial Position Sitting Respiration 12 Pulse 88 Pulse Source Pulse Oximeter Intake Visit Reasons: s/p Right L4-L5 TFESI/lvm Electronic Warfare Linguist Required: Yes Electronic Warfare Linguist Name: Yessi #[id number] Allergies Penicillins [PENICILLINS] Allergy (Intermediate, Verified 04/13/23 08:38) rash senna Allergy (Intermediate, Verified 04/13/23 08:38) rash Medication List - Last Reconciled 04/13/23 by Sondra Ewing LPN amlodipine 10 mg PO DAILY bisacodyl 5 mg PO BEDTIME 90 days calcitriol 1 mcg orally weekly; administer after dialysis on dialysis days cane As directed - use when walking carvedilol 12.5 mg PO BID 90 days [Commode As directed] cyclobenzaprine 10 mg PO BEDTIME [DISPOSABLE BED PADS Use as directed ONCE A DAY] [DISPOSABLE GLOVES - LARGE (1 box/month) Use as directed] docusate sodium 100 mg PO DAILY PRN 90 days levothyroxine 125 mcg PO DAILY 90 days multivitamin 1 tab PO DAILY omeprazole 20 mg PO DAILY HPI s/p Right L4-L5 TFESI/lvm HPI Details 77-year-old female who presents today to the office for a status post right L4-L5 TFESI. A certified rail operator was present during the visit. The patient reports 90% relief following the procedure that lasted for two days. The patient is amenable to proceed with SCS implant. She had a trial of SCS last year, which provided excellent relief during the trial. Past procedure: 03/14/23: Transforaminal epidural steroi d injection, right L4-5: % relief. 02/22/22: Nevro HFX spinal cord stimulat or trial-100% pain relief for 5 days 08/31/21: Right Diagnostic L3-L4 and L4-L 5 MBBs ? No relief. 06/22/21: Right L3-L4-L5 MBBs ? 70% back p ain relief. No change in leg pain. 03/16/21: Right L4 TFESI ? 60% relief. L eg pain resolved. Back pain persisting. 01/12/21: Bilateral Caudal RAMONE with [facility] ter ? No relief. [facility] Medical History (Updated 03/14/23 @ 17:09 by Jon Deluna MD) Gait instability Cervicogenic headache Cervicalgia Vertigo Gait instability Chronic kidney disease, stage III (moderate) Obesity (BMI 30-39.9) Gastritis Benign essential hypertension GERD without esophagitis Acquired hypothyroidism Constipation Lumbar spondylosis Post laminectomy syndrome Connective tissue disease CKD (chronic kidney disease) Interstitial lung disease Osteopenia COVID-19 vaccine series completed PAC (premature atrial contraction) Sjogrens syndrome GERD (gastroesophageal reflux disease) Hypothyroid Breast cancer Osteoarthritis Raynauds disease SAMARA positive HTN (hypertension) Surgical History (Updated 02/22/23 @ 10:40 by Daphne Webster CMA) Hx of tubal ligation H/O varicose vein stripping History of cataract surgery H/O lumpectomy Hx of cholecystectomy History of back surgery Family History Father Cancer Emphysema of lung Brother Emphysema of lung Mother Bone cancer Other Arthritis Social History Household Members: Spouse and Children Are you a primary palliative care physician to a significant other at home: No Do you presently have visiting nurse or other home services: No Alcohol intake: never Comment: pt reports this is her baseline pain Patient Tobacco Use Status: Never used Tobacco Current occupational status: retired Cognitive needs: No Hearing needs: No Vision needs: No Review of Systems Const All systems reviewed & are unremarkable except as noted in HPI and below Physical Exam Vital Signs: Last Vital Signs Pulse 88 04/13/23 08:36 Resp 12 04/13/23 08:36 BMI result Body Mass Index 34.0 General: Appears afebrile. Alert and oriented. Mood and affect appropriate. Follows and participates in conversation appropriately. Respiratory effort is unlabored. Able to transition from sit to stand unassisted. Ambulates with bilaterally normal heel strike and toe off. Results Reviewed Results Reviewed: Plain film showing L4 laminectomy defect. Assessment & Plan Assessment & Plan (1) Post laminectomy syndrome: Comment: Hx Spinal Cord Stimulator Trial 02/22/2022 Code(s): M96.1 - Postlaminectomy syndrome, not elsewhere classified (2) Low back pain with right-sided sciatica: Code(s): M54.41 - Lumbago with sciatica, right side Qualifiers: Chronicity: chronic Back pain laterality: right Qualified Code(s): M54.41 - Lumbago with sciatica, right side; G89.29 - Other chronic pain Plan Will schedule her for a Nevro spinal cord stimulator implant. She did a trial of Nevro SCS implant on 02/22/22, which provided 100% pain relief for 5 days. Discussed the risks and benefits of the procedure with the patient in detail. All questions were answered. The patient is on board with the plan. Justification for interventional therapy: ? Patient with average pain > 6/10 ? Patient has exhausted conservative therapy ? Patient unable to tolerate physical therapy due to pain. Scribed for Dr. Deluna by Josh Rodrigues, medical office technician, on 04/13/2023. I, Dr. Deluna, have personally reviewed and agree with the information entered by the scribe. Coding Level of Care Code Est Pt Level 4 (88160) Diagnoses Post laminectomy syndrome M96.1 Chronic right-sided low back pain with right-sided sciatica M54.41; G89.29 Chronicity: chronic Back pain laterality: right
[2023-04-13 08:36] VITALS: PULSE 88; RESP 12; BMI 34.0
== END 2023-04-13 09:03 | disposition home or self-care (01) ==
PROVIDERS: PCP Internal Medicine; Visit Provider Internal Medicine
DX: M96.1 Postlaminectomy syndrome, not elsewhere classified (principal); M54.41 Lumbago with sciatica, right side; G89.29 Other chronic pain
CPT/HCPCS: 99214

== ENCOUNTER → 2023-04-13 08:29 | Outpatient (BNVA) | payer OTHER, SELFPAY | PROVIDERS: PCP Internal Medicine; Visit Provider Internal Medicine | DX: M96.1 Postlaminectomy syndrome, not elsewhere classified (principal); M54.41 Lumbago with sciatica, right side; G89.29 Other chronic pain | CPT/HCPCS: 99212 ==

== ENCOUNTER 2023-05-29 13:08 | Outpatient (AMB) | payer OTHER, SELFPAY ==
--- NOTE | 2023-05-29 13:11 | MHC.OFFVIS ---
Intake Vital Signs 05/29/23 13:18 Height 5 ft 10 in Weight 239 lb BMI 34.3 BP 134/70 Blood Pressure Location Lt brachial Position Sitting Pulse 73 Pulse Source Pulse Oximeter Pulse Oximetry (%) 93 Oxygen Delivery Method Room Air Intake Visit Reasons: 2m f/u for Unsteady feet/Dizzi&giddiness per MD-Co Intake Note: Patient presents for 2 month f/u still walking unsteady having trouble balancing and has a ringing to her ears still. Allergies Penicillins [PENICILLINS] Allergy (Intermediate, Verified 05/29/23 13:17) rash senna Allergy (Intermediate, Verified 05/29/23 13:17) rash HPI HPI Comments History of Present Illness Details 77 y/o female comes for evaluation of dizziness, feeling off balance, tinnitus, headaches and neck pain. Pt reports the neck pain has improved with flexiril 10 mg. Pt still has tinnitus, and it usually causes headache. She walks fine when she sees straight but feels off balance when she turns her head. Denies room spinning sensation, no falls reported. Pt referred to physical therapy for neck pain, and gait training. Pt tried to schedule physical therapy, but her insurance does not cover the physical therapy place. Pt continues to have pressure headache with tinnitus, light and sound sensitivity. It is more when she wakes up at night and in the morning. [facility] Medical History (Updated 05/22/23 @ 12:31 by Anna Gabriel MD) BPV (benign positional vertigo) Gait instability Cervicogenic headache Cervicalgia Vertigo Gait instability Chronic kidney disease, stage III (moderate) Obesity (BMI 30-39.9) Gastritis Benign essential hypertension GERD without esophagitis Acquired hypothyroidism Constipation Lumbar spondylosis Post laminectomy syndrome Connective tissue disease CKD (chronic kidney disease) Interstitial lung disease Osteopenia COVID-19 vaccine series completed PAC (premature atrial contraction) Sjogrens syndrome GERD (gastroesophageal reflux disease) Hypothyroid Breast cancer Osteoarthritis Raynauds disease SAMARA positive HTN (hypertension) Surgical History Hx of tubal ligation H/O varicose vein stripping History of cataract surgery H/O lumpectomy Hx of cholecystectomy History of back surgery Family History Father Cancer Emphysema of lung Brother Emphysema of lung Mother Bone cancer Other Arthritis Social History Household Members: Spouse and Children Are you a primary pet care worker to a significant other at home: No Do you presently have visiting nurse or other home services: No Alcohol intake: never Comment: pt reports this is her baseline pain Patient Tobacco Use Status: Never used Tobacco Current occupational status: retired Cognitive needs: No Hearing needs: No Vision needs: No Review of Systems Const All systems reviewed & are unremarkable except as noted in HPI and below Physical Exam Vital Signs: Last Vital Signs Pulse 73 05/29/23 13:18 BP 134/70 05/29/23 13:18 Pulse Ox 93 05/29/23 13:18 Oxygen Delivery Method Room Air 05/29/23 13:18 BMI result Body Mass Index 34.3 Const General: cooperative, healthy appearing and comfortable Nutritional Appearance: overweight Orientation/consciousness: patient oriented x3 Eyes Pupils: Equal, round and reactive pupils present Neuro Other: neck- restricted range of motion with tightness in bilateral splenius levator and posterior cervical muscles . Nystagmus and vertigo on lateral gaxe General: patient oriented x3, tone normal, moves all extremities and no focal motor deficits Cranial nerves: Yes Facial sensation intact/muscles of mastication intact, Yes Equal, round and reactive pupils present, No Bilaterally intact EOM present, Yes Normal facial strength present, Yes Midline tongue present and Yes Symmetric palate elevation present Cognition (Neuro): normal cognition Gait exam (Neuro): Antalgic gait present Motor exam (neuro): 5/5 motor strength present throughout and Normal motor muscle tone present throughout Deep tendon reflexes (DTR's): Right triceps reflex intensity grade: 1+, Left triceps reflex intensity grade: 1+, Rt Biceps (C5, C6): 1+, Left biceps reflex intensity grade: 1+, Right brachioradialis reflex intensity grade: 1+, Left brachioradialis reflex intensity grade: 1+, Right patellar reflex intensity grade: 1+ and Left patellar reflex intensity grade: 1+ Coordination: [id number] test normal Assessment & Plan Assessment & Plan (1) Vertigo: Comment: BPV Code(s): R42 - Dizziness and giddiness (2) Cervicalgia: Code(s): M54.2 - Cervicalgia (3) Cervicogenic headache: Code(s): G44.86 - Cervicogenic headache (4) Gait instability: Comment: musculoskeletal and related to vertigo Code(s): R26.81 - Unsteadiness on feet Plan Continue to take flexeril 10mg qhs and try magnesium 400 mg qHS. PT for myofacsial release and gait training. Physical therapy order given to patient. Advised patient to call her insurance to find the place that her insurance cover it. Vestibular therapy for vertigo. Monitor the headache frequency and intensity. Medications: New magnesium oxide 400 mg PO DAILY 30 days 30 tabs 6RF Coding Level of Care Code Est Pt Level 4 (54086) Diagnoses Vertigo R42 Cervicalgia M54.2 Cervicogenic headache G44.86 Gait instability R26.81
[2023-05-29 13:18] VITALS: BP 134/70; PULSE 73; O2SAT 93; BMI 34.3
== END 2023-05-29 13:46 | disposition home or self-care (01) ==
PROVIDERS: PCP Internal Medicine; Visit Provider Nurse Practitioner Family
DX: R42 Dizziness and giddiness (principal); M54.2 Cervicalgia; G44.86 Cervicogenic headache; R26.81 Unsteadiness on feet
CPT/HCPCS: 99214

== ENCOUNTER → 2023-05-29 13:08 | Outpatient (BNVA) | payer OTHER, SELFPAY | PROVIDERS: PCP Internal Medicine; Visit Provider Nurse Practitioner Family | DX: G44.86 Cervicogenic headache (principal); R42 Dizziness and giddiness; M54.2 Cervicalgia; R26.81 Unsteadiness on feet | CPT/HCPCS: 99212 ==

== ENCOUNTER 2023-06-19 14:24 | Outpatient (AMB) | payer OTHER, SELFPAY ==
[2023-06-19 14:27] VITALS: BP 122/70; PULSE 70; O2SAT 100; BMI 33.9
--- NOTE | 2023-06-19 14:27 | MHC.PC.OV ---
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 Environmental Scientists: Present Allergies Penicillins [PENICILLINS] Allergy (Intermediate, Verified 06/19/23 14:59) rash senna Allergy (Intermediate, Verified 06/19/23 14:59) rash Medication List - Last Reconciled 06/19/23 by Truong Colon MD amlodipine 10 mg PO DAILY bisacodyl 5 mg PO BEDTIME 90 days calcitriol 1 mcg orally weekly; administer after dialysis on dialysis days cane As directed - use when walking carvedilol 12.5 mg PO BID 90 days [Commode As directed] cyclobenzaprine 10 mg PO BEDTIME [DISPOSABLE BED PADS Use as directed ONCE A DAY] [DISPOSABLE GLOVES - LARGE (1 box/month) Use as directed] docusate sodium 100 mg PO DAILY PRN 90 days levothyroxine 125 mcg PO DAILY 90 days magnesium oxide 400 mg PO DAILY 30 days multivitamin 1 tab PO DAILY omeprazole 40 mg PO DAILY 30 days Tobacco use date assessed: 06/19/23 Fall risk assessment: No Falls in past year Last assessed Fall Risk: 06/19/23 Dental Screening Dental Screen Date: 06/19/23 Did you have a dental visit in the last 12 months?: Yes Did you have a dental problem in the last 6 months where you did not have access to dental care?: No Was dental information given to patient?: Patient has dentist HPI 4 month f/u HPI Details Patient comes in today for her follow up visit States that she continues to struggle with chronic low back pain Has been going to pain management next door and underwent right L4-L5 TFESI a couple of months ago with (+) symptomatic relief States that she feels okay otherwise Still has on and off headaches and dizziness but states that these have not gotten significantly worse lately She denies any chest pains, no increased SOB No nausea/vomiting, no abdominal pain No change in bowel habits noted Needs to get her Bed Pads and Disposable Gloves Rx refilled She was not able to get her follow up labs done prior to her appt today [facility] Medical History BPV (benign positional vertigo) Gait instability Cervicogenic headache Cervicalgia Vertigo Gait instability Chronic kidney disease, stage III (moderate) Obesity (BMI 30-39.9) Gastritis Benign essential hypertension GERD without esophagitis Acquired hypothyroidism Constipation Lumbar spondylosis Post laminectomy syndrome Connective tissue disease CKD (chronic kidney disease) Interstitial lung disease Osteopenia COVID-19 vaccine series completed PAC (premature atrial contraction) Sjogrens syndrome GERD (gastroesophageal reflux disease) Hypothyroid Breast cancer Osteoarthritis Raynauds disease SAMARA positive HTN (hypertension) Surgical History Hx of tubal ligation H/O varicose vein stripping History of cataract surgery H/O lumpectomy Hx of cholecystectomy History of back surgery Family History Father Cancer Emphysema of lung Brother Emphysema of lung Mother Bone cancer Other Arthritis Social History Household Members: Spouse and Children Are you a primary technical healthcare consultant to a significant other at home: No Do you presently have visiting nurse or other home services: No Alcohol intake: never Comment: pt reports this is her baseline pain Patient Tobacco Use Status: Never used Tobacco Current occupational status: retired Cognitive needs: No Hearing needs: No Vision needs: Yes Questionnaire PHQ-9 Over the last 2 weeks, how often have you been bothered by any of the following problems? 1. Little interest or pleasure in doing things: not at all 2. Feeling down, depressed, or hopeless: not at all 3. Trouble falling or staying asleep, or sleeping too much: not at all 4. Feeling tired or having little energy: not at all 5. Poor appetite or overeating: not at all 6. Feeling bad about yourself - or that you are a failure or have let yourself or your family down: not at all 7. Trouble concentrating on things, such as reading the newspaper or watching television: not at all 8. Moving or speaking so slowly that other people could have noticed. Or the opposite - being so fidgety or restless that you have been moving around a lot more than usual: not at all 9. Thoughts that you would be better off or of hurting yourself in some way: not at all Total score: 0 Depression Screening Interpretation: Negative Depression Screening Done: Yes 49481 - PHQ-9 Billing: Yes Source: Developed by Drs. Timoteo Covington, Lucy Arndt, Guevara Jewell and colleagues, with an educational tere from [employer]. Thrive Questionnaire Date Thrive assessed: 06/19/23 I am a: Patient What is your living situation today?: I have a steady place to live Within the past 12 months, did the food you bought not last and you didn't have the money to get more?: Never true Within the past 12 months, did you worry whether your food would run out before you got money to buy more?: Never true Do you have trouble paying for medicines?: No Do you have trouble getting transportation to medical appointments?: No Do you have trouble paying your heating and electricity bill?: No Do you have trouble taking care of your child, family member or friend?: No Do you have trouble with day-to-day activities such as bathing, preparing meals, shopping, managing finances, etc.?: No Are you currently unemployed and looking for a job?: No Are you interested in more education?: No Please select the resources that you would like help with: None Currently or been in a relationship where the following occur: no concerns reported THRIVE Score: 0 AUDIT C Alcohol Use Questionnaire (AUDIT-C) 1. How often do you have a drink containing alcohol?: Never Total Score: 0 Score Reviewed/Action Taken: Yes MO-7 AMB Questionnaire MO-7 Date MO - 7 assessed: 06/19/23 Feeling nervous, anxious, or on edge: 0 = Not at all Not being able to stop or control worryin = Not at all Worrying too much about different things: 0 = Not at all Trouble relaxin = Not at all Being so restless that it is hard to sit still: 0 = Not at all Becoming easily annoyed or irritable: 0 = Not at all Feeling afraid as if something awful might happen: 0 = Not at all Total MO-7 score (0-4 normal; 5-9 mild; 10-14 moderate; 15-21 severe): 0 Source: Developed by Drs. Timoteo Covington, Lucy Arndt, Guevara Jewell and colleagues, with an educational tere from [employer]. Review of Systems Const Denies chills, Denies fatigue, Denies fever(s) and Reports headache(s) (on and off) Eyes Reports dry eyes ENT Reports dysphagia (reports (+) problems with swallowing at times lately), Reports dizziness (on and off), Reports dry mouth, Denies otalgia, Reports headache(s) (on and off), Denies neck pain, Denies odynophagia and Denies sore throat Card Denies chest pain, Denies rapid heart rate, Denies irregular heart rhythm, Denies palpitations and Denies dyspnea Resp Denies chest congestion, Denies cough, Denies dyspnea and Denies wheezing GI Denies abdominal pain, Denies constipation, Reports dysphagia (reports (+) problems with swallowing at times lately), Denies diarrhea, Denies nausea, Denies odynophagia and Denies vomiting Denies hematuria, Denies urinary frequency, Denies dysuria and Denies urinary urgency Musc Reports abnormal gait (unsteady), Reports back pain (over the lower back - chronic), Denies arthralgias, Denies muscle weakness and Denies neck pain Skin/Breast Denies rash Neuro Reports abnormal gait (unsteady), Reports dizziness (on and off), Reports headache(s) (on and off) and Denies paresthesias Psych Denies anxiety Endo Denies fatigue and Denies palpitations Rogelio/Lymph Denies easy bruising Aller/Immun Denies wheezing Physical exam (Primary Care) Vital Signs: Last Vital Signs Pulse 70 06/19/23 14:27 BP 122/70 06/19/23 14:27 Pulse Ox 100 06/19/23 14:27 Oxygen Delivery Method Room Air 06/19/23 14:27 BMI result Body Mass Index 33.9 Tobacco/Smoking Status: Tobacco use Status Tobacco use date assessed 06/19/23 06/19/23 14:28 Patient Tobacco Use Status Never used Tobacco 06/19/23 14:28 PHQ-9: PHQ-9 Score PHQ-9: Total score 0 06/19/23 14:28 Depression Screening Interpretation: Negative Thrive Assessment: Date of Thrive Assessment Date Thrive assessed 06/19/23 06/19/23 14:28 Currently or been in a relationship where the following occur: no concerns reported Const General: no acute distress and alert HENMT Ears: TM's normal bilaterally and EAC's normal Throat: Yes posterior oropharynx normal and Yes tonsils normal (no TP congestion) Neck Neck: Yes no lymphadenopathy and Yes supple Thyroid: Thyroid normal Resp Auscultation: clear to auscultation bilaterally, no rales and no wheezes Cardio Rate: regular rate Rhythm: regular rhythm Heart sounds: no murmurs GI Palpation (GI): Soft to palpation and nontender Auscultation: normal bowel sounds General: Yes no CVA tenderness Back/Spine/Pelvis Back: no CVA tenderness Thoracic/Lumbar Spine: lumbar spinal tenderness (chronic) Skin Rashes: no rashes Extrem General: Yes no clubbing, cyanosis or edema Assessment and Plan Assessment & Plan (1) Frequent headaches: Code(s): R51.9 - Headache, unspecified Plan: Suspect either tension headaches or migraine She was started on a trial of low dose Topiramate 25 mg Q HS for headache prophylaxis a few months ago that she states did not help and she self-discontinued taking the medication after a while Follow up with neurology as scheduled (2) Dizziness of unknown etiology: Code(s): R42 - Dizziness and giddiness Plan: Patient was referred to neurology for further evaluation and she was seen a few weeks ago Was sent for PT and vestibular training and gait training at this time (3) Benign essential hypertension: Code(s): I10 - Essential (primary) hypertension Plan: Reinforced low sodium diet - goal is systolic BP of at least 130 to 140 mm or less Continue Amlodipine 10 mg QD and Carvedilol 12.5 mg BID She was not able to get her follow up labs done prior to her visit today (4) Acquired hypothyroidism: Code(s): E03.9 - Hypothyroidism, unspecified Plan: Continue Levothyroxine 125 mcg QD Will have patient recheck her labs in 4 months for follow up - will just have her use her current orders (updated) for her next lab draw (5) Gastritis: Code(s): K29.70 - Gastritis, unspecified, without bleeding Qualifiers: Gastritis type: unspecified gastritis Chronicity: chronic Gastritis bleeding: without bleeding Qualified Code(s): K29.50 - Unspecified chronic gastritis without bleeding Plan: Dietary restrictions reinforced Continue Omeprazole 40 mg QD Follow up with GI as scheduled (6) Chronic kidney disease, stage III (moderate): Code(s): N18.30 - Chronic kidney disease, stage 3 unspecified Qualifiers: Chronic kidney disease stage 3 subtype: stage 3b (GFR 30-44) Qualified Code(s): N18.32 - Chronic kidney disease, stage 3b Plan: Will continue to monitor her renal function closely Follow up with nephrology (Dr. Meza) as scheduled (7) Sjogrens syndrome: Code(s): M35.00 - Sjogren syndrome, unspecified Qualifiers: Sjogren's organ involvement: without extraglandular involvement Qualified Code(s): M35.00 - Sicca syndrome, unspecified Plan: She seen by rheumatology a few months ago for positive Sjogren's antibody and with sicca symptoms She was initially thought to have Sjogren's syndrome but patient has never had any inflammatory arthritis symptoms or signs and no other extraglandular manifestations of Sjogren's have been detected - was advised that her symptoms are more due to osteoarthritis and that she DOES NOT HAVE SJOGREN'S SYNDROME Follow up with rhuematology as scheduled (8) Dysphagia: Code(s): R13.10 - Dysphagia, unspecified Qualifiers: Dysphagia type: unspecified Qualified Code(s): R13.10 - Dysphagia, unspecified Plan: Her barium swallow done a few months ago came back showing findings consistent with achalasia / lower esophageal sphincter spasm with associated nonmotility Will refer her to GI for further evaluation and management (9) Constipation: Code(s): K59.00 - Constipation, unspecified Qualifiers: Constipation type: unspecified constipation type Qualified Code(s): K59.00 - Constipation, unspecified Plan: Reinforced increased oral fluids and dietary fiber Continue Bisacodyl 5 mg QD PRN (10) Lumbar spondylosis: Code(s): M47.816 - Spondylosis without myelopathy or radiculopathy, lumbar region Plan: Reinforced activity and weight-lifting restrictions Has failed back injections in the past Was successfully trialed on SCS a couple of months ago and she is now awaiting scheduling for a permanent SCS implantation Follow up with Pain Management as scheduled (11) Primary osteoarthritis of right knee: Code(s): M17.11 - Unilateral primary osteoarthritis, right knee Plan: Continue Acetaminophen ER 650 mg Q 12 hours PRN Follow up with orthopedics as scheduled (12) Obesity (BMI 30-39.9): Code(s): E66.9 - Obesity, unspecified Plan: Reinforced diet/exercise as tolerated/lose weight Plan Follow up in 4 months Orders: Referrals Gastroenterology Referral K22.0 - Achalasia of cardia, R13.10 - Dysphagia, unspecified Medications: Refilled [DISPOSABLE BED PADS] Use as directed ONCE A DAY 30 ea 5RF M96.1 - Postlaminectomy syndrome, not elsewhere classified, R32 - Unspecified urinary incontinence [DISPOSABLE GLOVES - LARGE (1 box/month)] Use as directed 1 ea 5RF M96.1 - Postlaminectomy syndrome, not elsewhere classified, R32 - Unspecified urinary incontinence Coding Level of Care Code Est Pt Level 4 (26051) Diagnoses Frequent headaches R51.9 Dizziness of unknown etiology R42 Benign essential hypertension I10 Acquired hypothyroidism E03.9 Chronic gastritis without bleeding, unspecified gastritis type K29.50 Gastritis type: unspecified gastritis Chronicity: chronic Gastritis bleeding: without bleeding Stage 3b chronic kidney disease N18.32 Chronic kidney disease stage 3 subtype: stage 3b (GFR 30-44) Sjogren's syndrome without extraglandular involvement M35.00 Sjogren's organ involvement: without extraglandular involvement Dysphagia, unspecified type R13.10 Dysphagia type: unspecified Constipation, unspecified constipation type K59.00 Constipation type: unspecified constipation type Lumbar spondylosis M47.816 Primary osteoarthritis of right knee M17.11 Obesity (BMI 30-39.9) E66.9
== END 2023-06-19 15:17 | disposition home or self-care (01) ==
PROVIDERS: PCP Internal Medicine; Visit Provider Internal Medicine
DX: R51.9 Headache, unspecified (principal); R42 Dizziness and giddiness; I12.9 Hypertensive chronic kidney disease with stage 1 through stage 4 chronic kidney disease, or unspecified chronic kidney disease; N18.32 Chronic kidney disease, stage 3b; E03.9 Hypothyroidism, unspecified; K29.50 Unspecified chronic gastritis without bleeding; R13.10 Dysphagia, unspecified; K59.00 Constipation, unspecified; M47.816 Spondylosis without myelopathy or radiculopathy, lumbar region; M17.11 Unilateral primary osteoarthritis, right knee; E66.9 Obesity, unspecified
CPT/HCPCS: 99214

== ENCOUNTER 2023-07-03 10:50 | Outpatient (AMB) | payer OTHER, SELFPAY ==
--- NOTE | 2023-07-03 11:06 | A.OFFVIS_ITS ---
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 Duke, presents today for follow up and test results. Reports back pain that radiates down right leg. Right hip/low back injection administered by Pain management without relief. Reports Tylenol has not helped. Patient did try Tramadol from one of her children which helped. Patient reports she had Tramadol in the past which she took PRN but was discontinued. Logistics Operations Manager Required: Yes Logistics Operations Manager Language: Senior Cytogenetic Technologist Name: Daughter Information Interpreted: non-clinical & clinical Accompanied by: Daughter Allergies Penicillins [PENICILLINS] Allergy (Intermediate, Verified 07/03/23 11:09) rash senna Allergy (Intermediate, Verified 07/03/23 11:09) rash Medication List - Last Reconciled 07/03/23 by LONNIE Esquivel- amlodipine 10 mg PO DAILY bisacodyl 5 mg PO BEDTIME 90 days calcitriol 1 mcg orally weekly; administer after dialysis on dialysis days cane As directed - use when walking carvedilol 12.5 mg PO BID 90 days clotrimazole 1% 1 appl topical BID 2 weeks [Commode As directed] [DISPOSABLE BED PADS Use as directed ONCE A DAY] [DISPOSABLE GLOVES - LARGE (1 box/month) Use as directed] docusate sodium 100 mg PO DAILY PRN 90 days levothyroxine 125 mcg PO DAILY 90 days magnesium oxide 400 mg PO DAILY 30 days multivitamin 1 tab PO DAILY omeprazole 40 mg PO DAILY 30 days valacyclovir (Valtrex) 500 mg PO BID 7 days HPI HPI Comments History of Present Illness Details Ms. Blancas 77yoF, accompanied by her daughter's partner Carmelita, presents with her follow-p evaluation of multiple joint complaints. She reports continued problems with low back pain, mostly on the right and sciatica. At crystal es the pain radiates to the right buttock down into the right thigh and posterior knee. When that occurs it is extremely disabling and she has trouble walking. She has not had any falls but feels unsteady on her feet at times. She has a positive SAMARA with slightly low complements but other serologies were negative including anti DNA and anti LEAH. She did have recent lumbar spine and knee x-rays. She takes acetaminophen currently for her symptoms. She is seeing Pain management and has had injections to the lower back. She was to be evaluated for a stimulator but was not contacted. She has seen multiple rheumatologists where she received tramadol, PFSH Medical History BPV (benign positional vertigo) Gait instability Cervicogenic headache Cervicalgia Vertigo Gait instability Chronic kidney disease, stage III (moderate) Obesity (BMI 30-39.9) Gastritis Benign essential hypertension GERD without esophagitis Acquired hypothyroidism Constipation Lumbar spondylosis Post laminectomy syndrome Connective tissue disease CKD (chronic kidney disease) Interstitial lung disease Osteopenia COVID-19 vaccine series completed PAC (premature atrial contraction) Sjogrens syndrome GERD (gastroesophageal reflux disease) Hypothyroid Breast cancer Osteoarthritis Raynauds disease SAMARA positive HTN (hypertension) Surgical History Hx of tubal ligation H/O varicose vein stripping History of cataract surgery H/O lumpectomy Hx of cholecystectomy History of back surgery Family History Father Cancer Emphysema of lung Brother Emphysema of lung Mother Bone cancer Other Arthritis Social History Household Members: Spouse and Children Are you a primary animal care technician to a significant other at home: No Do you presently have visiting nurse or other home services: No Alcohol intake: never Comment: pt reports this is her baseline pain Patient Tobacco Use Status: Never used Tobacco Current occupational status: retired Cognitive needs: No Hearing needs: No Vision needs: Yes Review of Systems Const All systems reviewed & are unremarkable except as noted in HPI and below Physical Exam Vital Signs: Last Vital Signs Temp 97.4 F 07/03/23 11:07 Pulse 66 07/03/23 11:07 BP 128/70 07/03/23 11:07 Pulse Ox 96 07/03/23 11:07 Oxygen Delivery Method Room Air 07/03/23 11:07 BMI result Body Mass Index 34.0 APPEARANCE: No acute distress, groomed, nourished EYES no redness, eyelids normal. No temporal artery tenderness, redness or swelling. HEART:? Regular rhythm, S1-S2 heard, no murmurs, rubs or gallops. LUNG:? Clear to percussion and auscultation EXTREMITIES: No edema, no calf tenderness, normal peripheral pulses. NEURO: Oriented and alert x3. No focal weakness. JOINT EXAM: Cervical Spine:.? Full range of motion without pain; no tenderness. Thoracic Spine:.? No scoliosis.? No tenderness on palpation. Lumbar Spine:.? Alignment normal.? Moderate pain with flexion of 45 degrees with some paraspinal muscle tenderness. Chest Wall:.? No tenderness, swelling, increased warmth or erythema. Hands:. Right:? Normal pain-free range of motion with some slight swelling at the MCPs 1 through 3 but these are not tender. There is some slight bony thickening at the thumb IP but it is not tender. There is no flexor tendon triggering or tenderness, there is no tenderness in the PIP joints. There is no thenar atrophy or sensory loss. Left: Normal pain-free range of motion. Slight thickening at the 1st 2 MCP joints without tenderness. Mild nontender bony enlargement at the thumb IP. Elsewhere there is no tenderness, swelling, increased warmth or erythema. There is no flexor tendon triggering, thenar atrophy or sensory loss. Wrists: Left: There is normal pain-free range of motion without tenderness. There is a firm soft tissue lump on the dorsum of the hand consistent with a ganglion cyst. It is not tender. Right:? Normal pain-free range of motion without tenderness, swelling, increased warmth or erythema. Elbows:. Normal pain-free range of motion without tenderness, swelling, increased warmth or erythema. Shoulders: Left: Mild pain with extremes of normal range of motion. Mild anterior tenderness with questionable abductor weakness but no adenopathy or swelling. Right:?? Full range of motion with mild discomfort at the extremes of normal range of motion. There is mild anterior and trapezial tenderness without adenopathy, weakness, swelling, increased warmth or erythema. Hips:.? Right: Lumbar, lateral, and groin pain with full flexion or more than 10 degrees of internal or external rotation.. Left: Slight lumbar pain with extremes of rotation. No groin pain with motion.. Hip bursa:.? Mild bilateral trochanteric tenderness. Knees:.? Right: Mild pain with extremes of flexion or extension. There is mild medial and slight lateral tenderness. There is mild patellofemoral crepitus without redness, warmth or effusion. Left: Slight pain with extremes of flexion or extension with some minimal medial compartment tenderness but no effusion, redness or warmth. There is mild patellofemoral crepitus. Ankles:.? Normal pain-free range of motion without tenderness, swelling, increased warmth or erythema. Feet:.? Normal pain-free range of motion with some mild tenderness over the instep with there is a bony prominence it. There is also some 1st MTP bony enlargement, tenderness, hallux valgus deformity bilaterally. Other areas are without tenderness, swelling, increased warmth or erythema. Tender points: Mild tenderness to digital palpation at the occiput, trapezius, second rib, lateral epicondyle, knees, greater trochanter and gluteal area bilaterally. ? Office Procedures Joint Injection/Drain Joint Injection/Drain Details: right knee injection Primary Site: right knee Prep: site was prepped using aseptic technique Injected: 40 mg of, Kenalog, with 1 mL of and 1% plain lidocaine Approach Used: anterolateral Procedure: The patient tolerated the procedure well Coding 27844 - Large joint Procedure code (CPT) selection complete Results Reviewed Results Reviewed: Laboratory Tests 01/29/23 11:51 WBC 4.8 Hgb 12.0 ESR 50 H Creatinine 1.04 C-Reactive Protein 0.37 January 29 x-rays of the lumbar spine and knees show mild OA in the knees with some chondrocalcinosis. There is lumbar osteoarthritis at multiple levels. Laboratory Tests 08/14/18 01/29/23 15:08 11:51 Rheumatoid Factor < 13.0 Cycl Citrul Peptide IgG <16 SAMARA Titer 1:80 H SS-A/Ro Antibody >8.0 POS A SS-B/La Antibody <1.0 NEG Sm (Em) Antibody <1.0 NEG SM/VIRTUAL OFFICE ASSISTANT IgG Antibody <1.0 NEG Double Strand DNA Ab 3 Thyroglobulin Antibody 33 H Thyroid Peroxidase Ab 2 Assessment & Plan Assessment & Plan (1) Low back pain with right-sided sciatica: Code(s): M54.41 - Lumbago with sciatica, right side Qualifiers: Back pain laterality: right Chronicity: chronic Qualified Code(s): M54.41 - Lumbago with sciatica, right side; G89.29 - Other chronic pain (2) Primary osteoarthritis of right knee: Code(s): M17.11 - Unilateral primary osteoarthritis, right knee Plan #Low Back Pain: Ms. Blancas is here to inquire if she can be treated for pain. The patient has been seeing pain management and is somewhat dissatisfied with the pace of her treatment. I recommend that she go back and inquire about back stimulator that was discussed. She did not start the gabapentin that ws prescribed by and seem unaware that it was sent to the pharmacy. I recommend that if gabapentin can be helpful that this can be managed by PCP. This may help with some of the sciatica. She also has widely scattered tender points consistent with some fibromyalgia but the overwhelming symptoms at present look like they are mostly due to osteoarthritis. She should also follow-thru with the PT prescribed. #Right Knee pain: I do not see significant signs of any active inflammatory arthritis. The exam is consistent with osteoarthritis in the the knees. I will give an injection at this visit and see if that helps. Follow-up in 6 months or so was recommended. I spent 35 minutes reviewing chart, evaluating and examining patient and documenting. Coding Level of Care Code Est Pt Level 4 (57531) Diagnoses Chronic right-sided low back pain with right-sided sciatica M54.41; G89.29 Back pain laterality: right Chronicity: chronic Primary osteoarthritis of right knee M17.11 CPT Codes Coding - 32856 Large joint: 11502 - Large joint ([id number])
[2023-07-03 11:07] VITALS: BP 128/70; PULSE 66; TEMP 36.3; O2SAT 96; BMI 34.0
== END 2023-07-03 12:06 | disposition home or self-care (01) ==
PROVIDERS: PCP Internal Medicine; Visit Provider Nurse Practitioner Family
DX: M54.41 Lumbago with sciatica, right side (principal); G89.29 Other chronic pain; M17.11 Unilateral primary osteoarthritis, right knee
CPT/HCPCS: 20610; 99214

== ENCOUNTER → 2023-07-03 10:50 | Outpatient (BNVA) | payer OTHER, SELFPAY | PROVIDERS: PCP Internal Medicine; Visit Provider Nurse Practitioner Family | DX: M17.11 Unilateral primary osteoarthritis, right knee (principal); M54.41 Lumbago with sciatica, right side; G89.29 Other chronic pain | CPT/HCPCS: 20610; 99212 ==

== ENCOUNTER 2023-09-26 08:08 | Outpatient (REF) | payer OTHER, SELFPAY ==
[2023-09-26 08:19] LABS: MANUAL DIFF FLAG NO
[2023-09-26 08:48] LABS: Basophils Percent Auto 0.2 % (0-2); Eosinophils Absolute Auto 0.1 X10*3/uL (0.0-0.4); Eosinophils Percent Auto 2.5 % (0-4); Hematocrit 41.5 % (37.0-47.0); Hemoglobin 13.1 g/dl (12.0-16.0); Imm Gran Abs Auto 0.01 X10*3/uL (0.00-0.03); Imm Gran Pct Auto 0.2 % (0.0-0.4); Lymphocytes Absolute Auto 1.6 X10*3/uL (1.2-4.9); Lymphocytes Percent Auto 36.8 % (20-40); Mean Corpuscular HGB Conc 31.6 g/dl (31.0-35.0); Mean Corpuscular Hemoglobin 28.1 pg (27.0-33.0); Mean Corpuscular Volume 89.1 fL (80.0-98.0); Mean Platelet Volume 10.4 fL (9.4-12.3); Monocytes Absolute Auto 0.5 X10*3/uL (0.1-1.2); Neutrophils Absolute Auto 2.1 x10*3/uL (2.0-8.3); Neutrophils Percent Auto 49.3 % (45-73); Platelet Count 252 X10*3/uL (160-400); Red Blood Count 4.66 X10*6/uL (4.20-5.50); Red Cell Distribution Width 13.9 % (11.0-16.0); White Blood Count 4.4 X10*3/uL (4.8-10.8)
[2023-09-26 09:18] LABS: Alanine Aminotransferase 14 U/L (0-31); Alkaline Phosphatase 101 U/L (39-117); Anion Gap 12 (12-20); Aspartate Amino Transferase 22 U/L (5-31); Bilirubin Total 0.3 mg/dL (0.0-1.0); Blood Urea Nitrogen 29 mg/dL (9-16); Calcium 10.2 mg/dL (8.4-10.2); Carbon Dioxide 29 mmol/L (22-29); Chloride 105 mmol/L (96-108); Cholesterol 180 mg/dL (<200); Estimated Glomerular Filt Rate 43; Glucose Fasting 85 mg/dL (60-99); HDL Cholesterol 41 mg/dL (>40); LDL Cholesterol Calculated 90 mg/dL (<100); Potassium 5.4 mmol/L (3.3-5.1); Sodium 141 mmol/L (135-145); Total Protein 8.2 g/dL (6.5-8.0); Triglycerides 246 mg/dL (<150)
[2023-09-26 09:37] LABS: Free T4 (Free Thyroxine) 1.06 ng/dL (0.71-1.85); Thyroid Stimulating Hormone 1.44 uIU/mL (0.32-4.0); Vitamin D 25-OH Total 37.7 ng/mL (>30)
[2023-09-26 09:46] LABS: Appearance Urine Clear; Color Urine Yellow; Glucose Urine UA Negative (Negative); Leukocyte Esterase Urine Moderate (2+) (Negative); Nitrite Urine Negative (Negative); PH 5.5 (5.0-9.0); Specific Gravity - Urine 1.015 (1.005-1.025); UMIC TRIGGER UACC YES; Urine Blood Negative (Negative); Urine Ketones Negative (Negative); Urine Protein Negative (Neg-Trace)
[2023-09-26 09:53] LABS: Bacteria Urine None Seen (None Seen); Hyaline Casts Urine 0-2 /LPF (0-2); RBC Urine 0-2 /HPF (0-2); UACC Culture Trigger YES
== END 2023-09-26 08:09 | disposition home or self-care (01) ==
LOC: HO.LAB 08:08
PROVIDERS: PCP Internal Medicine; Visit Provider Internal Medicine
DX: E03.9 Hypothyroidism, unspecified (principal); E55.9 Vitamin D deficiency, unspecified; R30.0 Dysuria; I10 Essential (primary) hypertension; E78.00 Pure hypercholesterolemia, unspecified
CPT/HCPCS: 36415; 80053; 80061; 81001; 82306; 84439; 84443; 85025; 87086

== ENCOUNTER 2023-10-01 14:28 | Outpatient (AMB) | payer OTHER, SELFPAY ==
--- NOTE | 2023-10-01 14:42 | MHC.PC.OV ---
Vital Signs 10/01/23 14:46 Height 5 ft 10 in Weight 233 lb 8 oz BMI 33.5 BP 112/62 Blood Pressure Location Lt brachial Position Sitting Pulse 52 Pulse Source Pulse Oximeter Pulse Oximetry (%) 95 Oxygen Delivery Method Room Air Intake Visit Reasons: 4mth f/u Intake Note: Patient is here to follow up on HTN, HLD, GERD, Hypothyroidism, Postlaminectomy syndrome. Visitor Information Assistant Required: Yes Visitor Information Assistant Language: Boom Stick Man Name: Carmelita (layla ramirez) Information Interpreted: non-clinical & clinical Central Supply Tech: Present Accompanied by: layla ramirez Allergies Penicillins [PENICILLINS] Allergy (Intermediate, Verified 10/01/23 15:32) rash senna Allergy (Intermediate, Verified 10/01/23 15:32) rash Medication List - Last Reconciled 10/01/23 by Truong Colon MD amlodipine 10 mg PO DAILY bisacodyl 5 mg PO BEDTIME 90 days calcitriol 1 mcg orally weekly; administer after dialysis on dialysis days cane As directed - use when walking carvedilol 12.5 mg PO BID 90 days clotrimazole 1% 1 appl topical BID 2 weeks [Commode As directed] [DISPOSABLE BED PADS Use as directed ONCE A DAY] [DISPOSABLE GLOVES - LARGE (1 box/month) Use as directed] docusate sodium 100 mg PO DAILY PRN 90 days [incontinent wipes As directed] levothyroxine 125 mcg PO DAILY 90 days magnesium oxide 400 mg PO DAILY 30 days multivitamin 1 tab PO DAILY omeprazole 40 mg PO DAILY 30 days valacyclovir (Valtrex) 500 mg PO BID 7 days Tobacco use date assessed: 10/01/23 Fall risk assessment: No Falls in past year Last assessed Fall Risk: 10/01/23 Dental Screening Dental Screen Date: 06/19/23 HPI 4mth f/u HPI Details Patient comes in today for her follow up visit States that she continues to struggle with chronic low back pain Has been going to pain management next door and underwent right L4-L5 TFESI a few months ago with (+) symptomatic relief She was recommended for a spinal cord stimulator implant but has not yet gone through the clearance that she needed prior to approval of the procedure States that pain management keeps sending her referral to the wrong place and she has to put up a co-pay before she will be seen States that she has checked with her insurance regarding this and was advised that pain management needs to send her referral through [facility] and they will make sure this gets processed to their facility of choice and she will not be charged a co-pay when it is reportedly processed this way States that she still has on and off headaches and dizziness but states that these have not gotten significantly worse lately She was seen by neurology a few months ago and sent for physical and vestibular therapy but patient did not get these done States that she was also tried on some Magnesium supplements but she felt that these did not help and she stopped taking them after a while She denies any chest pains, no increased SOB No nausea/vomiting, no abdominal pain No change in bowel habits noted Needs to get her Feminine Pads and Incontinent wipes Rx refilled and sent over to [facility] She had her follow up labs done a few days ago - to discuss her results [facility] Medical History BPV (benign positional vertigo) Gait instability Cervicogenic headache Cervicalgia Vertigo Gait instability Chronic kidney disease, stage III (moderate) Obesity (BMI 30-39.9) Gastritis Benign essential hypertension GERD without esophagitis Acquired hypothyroidism Constipation Lumbar spondylosis Post laminectomy syndrome Connective tissue disease CKD (chronic kidney disease) Interstitial lung disease Osteopenia COVID-19 vaccine series completed PAC (premature atrial contraction) Sjogrens syndrome GERD (gastroesophageal reflux disease) Hypothyroid Breast cancer Osteoarthritis Raynauds disease SAMARA positive HTN (hypertension) Surgical History Hx of tubal ligation H/O varicose vein stripping History of cataract surgery H/O lumpectomy Hx of cholecystectomy History of back surgery Family History Father Cancer Emphysema of lung Brother Emphysema of lung Mother Bone cancer Other Arthritis Social History Household Members: Spouse and Children Housing: Apartment Are you a primary health care facilities inspector to a significant other at home: No Do you presently have visiting nurse or other home services: No Alcohol intake: never Comment: pt reports this is her baseline pain Patient Tobacco Use Status: Never used Tobacco e-Cigarette/Vaping Use: Never Used Second Hand Smoke Exposure: No service: No Current occupational status: retired Cognitive needs: No Hearing needs: No Vision needs: Yes (Glasses) Questionnaire Thrive Questionnaire Date Thrive assessed: 06/19/23 MO-7 AMB Questionnaire MO-7 Date MO - 7 assessed: 06/19/23 Source: Developed by Drs. Timoteo Covington, Lucy Arndt, uGevara Jewell and colleagues, with an educational tere from [employer]. Review of Systems Const Denies chills, Denies fatigue, Denies fever(s) and Reports headache(s) (on and off) Eyes Reports dry eyes ENT Reports dysphagia (reports (+) problems with swallowing at times ), Reports dizziness (on and off), Reports dry mouth, Denies otalgia, Reports headache(s) (on and off), Denies neck pain, Denies odynophagia and Denies sore throat Card Denies chest pain, Denies rapid heart rate, Denies irregular heart rhythm, Denies palpitations and Denies dyspnea Resp Denies chest congestion, Denies cough, Denies dyspnea and Denies wheezing GI Denies abdominal pain, Denies constipation, Reports dysphagia (reports (+) problems with swallowing at times ), Denies diarrhea, Denies nausea, Denies odynophagia and Denies vomiting Denies hematuria, Denies urinary frequency, Denies dysuria and Denies urinary urgency Musc Reports abnormal gait (unsteady), Reports back pain (over the lower back - chronic), Denies arthralgias, Denies muscle weakness and Denies neck pain Skin/Breast Denies rash Neuro Reports abnormal gait (unsteady), Reports dizziness (on and off), Reports headache(s) (on and off) and Denies paresthesias Psych Denies anxiety Endo Denies fatigue and Denies palpitations Rogelio/Lymph Denies easy bruising Aller/Immun Denies wheezing Physical exam (Primary Care) Vital Signs: Last Vital Signs Pulse 52 10/01/23 14:46 BP 112/62 10/01/23 14:46 Pulse Ox 95 10/01/23 14:46 Oxygen Delivery Method Room Air 10/01/23 14:46 BMI result Body Mass Index 33.5 Tobacco/Smoking Status: Tobacco use Status Tobacco use date assessed 10/01/23 10/01/23 14:53 Patient Tobacco Use Status Never used Tobacco 10/01/23 14:53 e-Cigarette/Vaping Use Never Used 10/01/23 14:53 Thrive Assessment: Date of Thrive Assessment Date Thrive assessed 06/19/23 10/01/23 14:53 Const General: no acute distress and alert HENMT Ears: TM's normal bilaterally and EAC's normal Throat: Yes posterior oropharynx normal and Yes tonsils normal (no TP congestion) Neck Neck: Yes no lymphadenopathy and Yes supple Thyroid: Thyroid normal Resp Auscultation: clear to auscultation bilaterally, no rales and no wheezes Cardio Rate: regular rate Rhythm: regular rhythm Heart sounds: no murmurs GI Palpation (GI): Soft to palpation and nontender Auscultation: normal bowel sounds General: Yes no CVA tenderness Back/Spine/Pelvis Back: no CVA tenderness Thoracic/Lumbar Spine: lumbar spinal tenderness (chronic) Skin Rashes: no rashes Extrem General: Yes no clubbing, cyanosis or edema Results Reviewed Results Reviewed: Laboratory Tests 09/26/23 09/26/23 08:14 08:17 WBC 4.4 L Hgb 13.1 Hct 41.5 Plt Count 252 Sodium 141 Potassium 5.4 H Creatinine 1.20 Estimated GFR 43 Fasting Glucose 85 Calcium 10.2 AST 22 ALT 14 Triglycerides 246 H Cholesterol 180 LDL Cholesterol, Calc 90 HDL Cholesterol 41 25-OH Vitamin D Total 37.7 TSH 1.44 Free T4 1.06 Ur Specific [place] 1.015 Urine Protein Negative Urine Glucose (UA) Negative Urine Blood Negative Urine Nitrite Negative Ur Leukocyte Esterase Moderate (2+) H Assessment and Plan Assessment & Plan (1) Frequent headaches: Code(s): R51.9 - Headache, unspecified Plan: Suspect migraine headaches She was started on a trial of low dose Topiramate 25 mg Q HS for headache prophylaxis a few months ago that she states did not help and she self-discontinued taking the medication after a while She was also trialed on oral Magnesium supplements, which she states do not help as well Follow up with neurology as scheduled - her next appt is sometime in early January 2024 (2) Dizziness of unknown etiology: Code(s): R42 - Dizziness and giddiness Plan: Patient was referred to neurology for further evaluation and she was sent for vestibular therapy, which patient states did not help Follow up with neurology as scheduled (3) Benign essential hypertension: Code(s): I10 - Essential (primary) hypertension Plan: Reinforced low sodium diet - goal is systolic BP of at least 130 to 140 mm or less Continue Amlodipine 10 mg QD and Carvedilol 12.5 mg BID Results of her labs done a few days ago reviewed and discussed with patient (4) Acquired hypothyroidism: Code(s): E03.9 - Hypothyroidism, unspecified Plan: Her TFTs were normal on her recent labs done a few days ago Continue Levothyroxine 125 mcg QD Will have patient recheck her labs in 4 months for follow up (5) Gastritis: Code(s): K29.70 - Gastritis, unspecified, without bleeding Qualifiers: Gastritis type: unspecified gastritis Chronicity: chronic Gastritis bleeding: without bleeding Qualified Code(s): K29.50 - Unspecified chronic gastritis without bleeding Plan: Dietary restrictions reinforced Continue Omeprazole 40 mg QD Follow up with GI as scheduled (6) Chronic kidney disease, stage III (moderate): Code(s): N18.30 - Chronic kidney disease, stage 3 unspecified Qualifiers: Chronic kidney disease stage 3 subtype: stage 3b (GFR 30-44) Qualified Code(s): N18.32 - Chronic kidney disease, stage 3b Plan: Will continue to monitor her renal function closely Follow up with nephrology (Dr. Meza) as scheduled (7) Sjogrens syndrome: Code(s): M35.00 - Sjogren syndrome, unspecified Qualifiers: Sjogren's organ involvement: without extraglandular involvement Qualified Code(s): M35.00 - Sicca syndrome, unspecified Plan: She seen by rheumatology a few months ago for positive Sjogren's antibody and with sicca symptoms She was initially thought to have Sjogren's syndrome but patient has never had any inflammatory arthritis symptoms or signs and no other extraglandular manifestations of Sjogren's have been detected - was advised that her symptoms are more due to osteoarthritis and that she DOES NOT HAVE SJOGREN'S SYNDROME Follow up with rhuematology as scheduled (8) Dysphagia: Code(s): R13.10 - Dysphagia, unspecified Qualifiers: Dysphagia type: unspecified Qualified Code(s): R13.10 - Dysphagia, unspecified Plan: Her barium swallow done a few months ago came back showing findings consistent with achalasia / lower esophageal sphincter spasm with associated nonmotility Follow up with GI as scheduled (9) Constipation: Code(s): K59.00 - Constipation, unspecified Qualifiers: Constipation type: unspecified constipation type Qualified Code(s): K59.00 - Constipation, unspecified Plan: Reinforced increased oral fluids and dietary fiber Continue Bisacodyl 5 mg QD PRN (10) Lumbar spondylosis: Code(s): M47.816 - Spondylosis without myelopathy or radiculopathy, lumbar region Plan: Reinforced activity and weight-lifting restrictions Has failed back injections in the past Was successfully trialed on SCS a couple of months ago and she is now awaiting scheduling for a permanent SCS implantation Follow up with Pain Management as scheduled (11) Primary osteoarthritis of right knee: Code(s): M17.11 - Unilateral primary osteoarthritis, right knee Plan: Continue Acetaminophen ER 650 mg Q 12 hours PRN Follow up with orthopedics as scheduled (12) Obesity (BMI 30-39.9): Code(s): E66.9 - Obesity, unspecified Plan: Reinforced diet/exercise as tolerated/lose weight Plan Follow up in 4 months Orders: Orders Thyroid Stimulating Hormone 4 Months E03.9 - Hypothyroidism, unspecified Comprehensive [place]. Panel Fast 4 Months E78.00 - Pure hypercholesterolemia, unspecified Complete Blood Count Auto Diff 4 Months D64.9 - Anemia, unspecified Lipid Panel 4 Months E78.00 - Pure hypercholesterolemia, unspecified Free T4 (Free Thyroxine) 4 Months E03.9 - Hypothyroidism, unspecified Medications: New [FEMININE PADS] As directed 6 ea 12RF R32 - Unspecified urinary incontinence Refilled [MEDICATED INCONTINENCE WIPES] As directed 100 ea 12RF R32 - Unspecified urinary incontinence Coding Level of Care Code Est Pt Level 4 (34191) Diagnoses Frequent headaches R51.9 Dizziness of unknown etiology R42 Benign essential hypertension I10 Acquired hypothyroidism E03.9 Chronic gastritis without bleeding, unspecified gastritis type K29.50 Gastritis type: unspecified gastritis Chronicity: chronic Gastritis bleeding: without bleeding Stage 3b chronic kidney disease N18.32 Chronic kidney disease stage 3 subtype: stage 3b (GFR 30-44) Sjogren's syndrome without extraglandular involvement M35.00 Sjogren's organ involvement: without extraglandular involvement Dysphagia, unspecified type R13.10 Dysphagia type: unspecified Constipation, unspecified constipation type K59.00 Constipation type: unspecified constipation type Lumbar spondylosis M47.816 Primary osteoarthritis of right knee M17.11 Obesity (BMI 30-39.9) E66.9
[2023-10-01 14:46] VITALS: BP 112/62; PULSE 52; O2SAT 95; BMI 33.5
== END 2023-10-01 15:50 | disposition home or self-care (01) ==
PROVIDERS: PCP Internal Medicine; Visit Provider Internal Medicine
DX: I12.9 Hypertensive chronic kidney disease with stage 1 through stage 4 chronic kidney disease, or unspecified chronic kidney disease (principal); N18.32 Chronic kidney disease, stage 3b; R51.9 Headache, unspecified; M35.00 Sjogren syndrome, unspecified; R42 Dizziness and giddiness; E03.9 Hypothyroidism, unspecified; K29.50 Unspecified chronic gastritis without bleeding; R13.10 Dysphagia, unspecified; K59.00 Constipation, unspecified; M47.816 Spondylosis without myelopathy or radiculopathy, lumbar region; M17.11 Unilateral primary osteoarthritis, right knee; E66.9 Obesity, unspecified
CPT/HCPCS: 99214

== ENCOUNTER 2023-12-05 09:38 | Outpatient (AMB) | payer OTHER, SELFPAY ==
--- NOTE | 2023-12-05 09:43 | A.OFFVIS_ITS ---
Vital Signs 12/05/23 09:48 Height 5 ft 9 in Weight 232 lb BMI 34.3 BP 137/64 Blood Pressure Location Lt brachial Position Sitting Pulse 62 Intake Visit Reasons: Dysphagia Intake Note: Patient new consult for Dysphagia. Patient cc: difficulty to swallow sticky food as rice and bread, acid reflex with burning on esophagus, and constipation Field Marketing Team Leader Required: No Accompanied by: Son Allergies Penicillins [PENICILLINS] Allergy (Intermediate, Verified 12/05/23 09:43) rash senna Allergy (Intermediate, Verified 12/05/23 09:43) rash HPI Comments Details: 78 y.o F with PMH of who is here for difficulty swallowing. Pt accompanied by her son Stanley. Reports difficulty swallowing ongoing for almost 5 years at this point. Able to swallow thick liquids such as soups but has difficulty with solids or sticky textures such as rice or beans and has to gianna it with sips of water or juice. Sometimes also notices choking with water. No significant weight loss reported. Also has ? hx of sjogrens like sx such as sicca - see rheum note 2022 but pt not on therapy. Last EGD 2015 with HH - pt was not symptomatic at that time. Pt also reports constipation and has to take dulcolax to relieve this but when she does take it, has explosive diarrhea. Taking 10mg BID at present. Minimal fiber intake. Pt ambulatory. Last colo 2016 normal and repeat not recommended due to age. [facility] Medical History BPV (benign positional vertigo) Gait instability Cervicogenic headache Cervicalgia Vertigo Gait instability Chronic kidney disease, stage III (moderate) Obesity (BMI 30-39.9) Gastritis Benign essential hypertension GERD without esophagitis Acquired hypothyroidism Constipation Lumbar spondylosis Post laminectomy syndrome Connective tissue disease CKD (chronic kidney disease) Interstitial lung disease Osteopenia COVID-19 vaccine series completed PAC (premature atrial contraction) Sjogrens syndrome GERD (gastroesophageal reflux disease) Hypothyroid Breast cancer Osteoarthritis Raynauds disease SAMARA positive HTN (hypertension) Surgical History Hx of tubal ligation H/O varicose vein stripping History of cataract surgery H/O lumpectomy Hx of cholecystectomy History of back surgery Family History Father Cancer Emphysema of lung Brother Emphysema of lung Mother Bone cancer Other Arthritis Social History Household Members: Spouse and Children Housing: Apartment Are you a primary critical care transport nurse to a significant other at home: No Do you presently have visiting nurse or other home services: No Alcohol intake: never Comment: pt reports this is her baseline pain Patient Tobacco Use Status: Never used Tobacco e-Cigarette/Vaping Use: Never Used Second Hand Smoke Exposure: No service: No Current occupational status: retired Cognitive needs: No Hearing needs: No Vision needs: Yes (Glasses) Review of Systems Const All systems reviewed & are unremarkable except as noted in HPI and below Physical Exam Vital Signs: Last Vital Signs Pulse 62 12/05/23 09:48 BP 137/64 12/05/23 09:48 BMI result Body Mass Index 34.3 No apparent distress Nonicteric Abdomen soft, nondistended Alert and oriented x3, normal gait Gen appear: NAD HEENT: nonicteric, no cervical lymphadenopathy Chest: CTA CVS: Regular S1/S2 Abd: soft, nontender, nondistended, bowel sounds + Ext: no peripheral edema Neuro: A/Ox3, noted to move all extremities spontaneously Psych: interacting appropriately Results Reviewed Results Reviewed: Most recent imaging barium swalloq from 2022 was personally reviewed; and does not show typical ballooned up eso from achalasia but does have mild narrowing at LES. 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 Dysphagia Ddx include esop stricture, dysmotility, EoE, ring/web. Plan: - EGD - CT chest to r/o pseudoachalasia given her age - Decision for HREM contingent on results from above 2. CIC: No red flags to warrant colo at this time. Plan: - Increase hydration - Add fiber supplementation - Pt educated on judicious use of stimulant laxatives and to reduce amount and frequency Follow up after EGD Orders: Orders CT chest w IV con Today K22.0 - Achalasia of cardia Patient Instructions: - We are scheduling you for upper endoscopy to evaluate difficulty swallowing - A ct chest is also being ordered for the same reason - For constipation, take 1 tbsp of fiber (such as psyllium, citrucel, metamucil - can use generic versions as well) mixed in 8 oz of water or juice daily - If no BM for 3 days, take 2 tabs of dulcolax ONCE a day. Pls do not take this med on a daily basis. Coding Level of Care Code New Pt Level 4 (20987) Diagnoses Achalasia K22.0 Chronic idiopathic constipation K59.04
[2023-12-05 09:48] VITALS: BP 137/64; PULSE 62; BMI 34.3
== END 2023-12-05 10:14 | disposition home or self-care (01) ==
PROVIDERS: PCP Internal Medicine; Visit Provider Internal Medicine
DX: K22.0 Achalasia of cardia (principal); K59.04 Chronic idiopathic constipation
CPT/HCPCS: 99204

== ENCOUNTER → 2023-12-05 09:38 | Outpatient (BNVA) | payer OTHER, SELFPAY | PROVIDERS: PCP Internal Medicine; Visit Provider Internal Medicine | DX: K21.9 Gastro-esophageal reflux disease without esophagitis (principal); K22.0 Achalasia of cardia; K59.04 Chronic idiopathic constipation; R13.10 Dysphagia, unspecified | CPT/HCPCS: 99202 ==

== ENCOUNTER 2024-01-04 10:01 | Outpatient (AMB) | payer OTHER, SELFPAY ==
--- NOTE | 2024-01-04 10:02 | MHC.OFFVIS ---
Vital Signs 01/04/24 10:06 Height 5 ft 9 in Weight 230 lb BMI 34.0 BP 152/68 H Blood Pressure Location Lt brachial Position Sitting Pulse 63 Pulse Source Pulse Oximeter Pulse Oximetry (%) 96 Oxygen Delivery Method Room Air Intake Visit Reasons: F/U Back pain Intake Note: Pain today 01/30 Range Management Specialist Required: Yes Range Management Specialist Language: Paper Stripper Name: Adolfo Accompanied by: Self / Same As Patient Allergies Penicillins [PENICILLINS] Allergy (Intermediate, Verified 01/04/24 10:07) rash senna Allergy (Intermediate, Verified 01/04/24 10:07) rash HPI Comments Details: Patient presents today for follow up for increasing low back pain with radiation into her right lower extremity in L4-L5 distribution with intermittent weakness and heaviness.Denies any recent trauma, injury or falls.Pain increases with walking, bending and movements. Patient had good results with right L4-L5 TFESI last year in February and would like to repeat this. She is also interested to proceed with SCS implant but is not able to cover co-pay for [facility] behavioral assessment due to significant outpocket costs. Patient requests referral to [facility] for this. Denies any fever or chills, abdominal or groin pain, bladder or bowel dysfunction or saddle anesthesia. Reports right lower extremity weakness. Utilizes cane at home and has pending follow-up with her PCP to obtain walker with seat. PRIOR 04/13/23 Dr. Deluna: 77-year-old female who presents today to the office for a status post right L4-L5 TFESI. A certified vessel manager was present during the visit. The patient reports 90% relief following the procedure that lasted for two days. The patient is amenable to proceed with SCS implant. She had a trial of SCS last year, which provided excellent relief during the trial. Past procedure: 03/14/23: Transforaminal epidural steroid injection, right L4-5:90% relief. 02/22/22: Nevro HFX spinal cord stimulator trial-100% pain relief for 5 days 08/31/21: Right Diagnostic L3-L4 and L4-L5 MBBs ? No relief. 06/22/21: Right L3-L4-L5 MBBs ? 70% back pain relief. No change in leg pain. 03/16/21: Right L4 TFESI ? 60% relief. Leg pain resolved. Back pain persisting. 01/12/21: Bilateral Caudal RAMONE with Catheter ? No relief. PFSH Medical History BPV (benign positional vertigo) Gait instability Cervicogenic headache Cervicalgia Vertigo Gait instability Chronic kidney disease, stage III (moderate) Obesity (BMI 30-39.9) Gastritis Benign essential hypertension GERD without esophagitis Acquired hypothyroidism Constipation Lumbar spondylosis Post laminectomy syndrome Connective tissue disease CKD (chronic kidney disease) Interstitial lung disease Osteopenia COVID-19 vaccine series completed PAC (premature atrial contraction) Sjogrens syndrome GERD (gastroesophageal reflux disease) Hypothyroid Breast cancer Osteoarthritis Raynauds disease SAMARA positive HTN (hypertension) Surgical History Hx of tubal ligation H/O varicose vein stripping History of cataract surgery H/O lumpectomy Hx of cholecystectomy History of back surgery Family History Father Cancer Emphysema of lung Brother Emphysema of lung Mother Bone cancer Other Arthritis Social History Household Members: Spouse and Children Housing: Apartment Are you a primary clinical manager home care to a significant other at home: No Do you presently have visiting nurse or other home services: No Alcohol intake: never Comment: pt reports this is her baseline pain Patient Tobacco Use Status: Never used Tobacco e-Cigarette/Vaping Use: Never Used Second Hand Smoke Exposure: No service: No Current occupational status: retired Cognitive needs: No Hearing needs: No Vision needs: Yes (Glasses) Review of Systems Const All systems reviewed & are unremarkable except as noted in HPI and below Physical Exam Vital Signs: Last Vital Signs Pulse 63 01/04/24 10:06 BP 152/68 H 01/04/24 10:06 Pulse Ox 96 01/04/24 10:06 Oxygen Delivery Method Room Air 01/04/24 10:06 BMI result Body Mass Index 34.0 General: Appears afebrile. Alert and oriented. Mood and affect appropriate. Follows and participates in conversation appropriately. Respiratory effort is unlabored. Able to transition from sit to stand unassisted. Antalgic, slow gait. Ambulates with bilaterally normal heel strike and toe off, reports unsteadiness and weakness on the right. Low-Back: Extension and flexion reproduces pain. Seated SLR test positive on the right, pain worsened with dorsiflexion. Assessment & Plan Assessment & Plan (1) Low back pain with right-sided sciatica: Code(s): M54.41 - Lumbago with sciatica, right side Category: Medical Qualifiers: Chronicity: chronic Back pain laterality: right Qualified Code(s): M54.41 - Lumbago with sciatica, right side; G89.29 - Other chronic pain (2) Post laminectomy syndrome: Comment: Hx Spinal Cord Stimulator Trial 02/22/2022 Code(s): M96.1 - Postlaminectomy syndrome, not elsewhere classified Category: Medical (3) Chronic pain syndrome: Code(s): G89.4 - Chronic pain syndrome Category: Medical (4) Lumbar spondylosis: Code(s): M47.816 - Spondylosis without myelopathy or radiculopathy, lumbar region Category: Medical Plan Schedule repeat Right L4-L5 TFESI with local and fluoroscopy. Patient is interested to proceed with SCS implant for post-laminectomy pain syndrome once she passes Behavioral evaluation. Patient not on anticoagulant. All questions were answered and the patient is in agreement of plan. Follow-up after injections and sooner as needed. Justification for interventional therapy: ? Patient with average pain > 6/10 ? Patient has exhausted conservative therapy ? Patient unable to tolerate physical therapy due to pain The risks, consequences, alternatives, and benefits of various treatment options were discussed with the patient in great detail, including conservative management, injections and procedures. Patient is aware of hyperglycemic effects of steroids. Orders: Referrals Behavioral Health Referral G89.29 - Other chronic pain, G89.4 - Chronic pain syndrome, M54.41 - Lumbago with sciatica, right side, M96.1 - Postlaminectomy syndrome, not elsewhere classified Coding Level of Care Code Est Pt Level 4 (78609) Complex EM visit Add On G2211 Diagnoses Chronic right-sided low back pain with right-sided sciatica M54.41; G89.29 Chronicity: chronic Back pain laterality: right Post laminectomy syndrome M96.1 Chronic pain syndrome G89.4 Lumbar spondylosis M47.816
[2024-01-04 10:06] VITALS: BP 152/68; PULSE 63; O2SAT 96; BMI 34.0
== END 2024-01-04 10:19 | disposition home or self-care (01) ==
PROVIDERS: PCP Internal Medicine; Visit Provider Nurse Practitioner Family
DX: M54.41 Lumbago with sciatica, right side (principal); G89.29 Other chronic pain; M96.1 Postlaminectomy syndrome, not elsewhere classified; G89.4 Chronic pain syndrome; M47.816 Spondylosis without myelopathy or radiculopathy, lumbar region
CPT/HCPCS: 99214; G2211

== ENCOUNTER → 2024-01-04 10:01 | Outpatient (BNVA) | payer OTHER, SELFPAY | PROVIDERS: PCP Internal Medicine; Visit Provider Nurse Practitioner Family | DX: M54.41 Lumbago with sciatica, right side (principal); M96.1 Postlaminectomy syndrome, not elsewhere classified; G89.4 Chronic pain syndrome; M47.816 Spondylosis without myelopathy or radiculopathy, lumbar region | CPT/HCPCS: 99212 ==

== ENCOUNTER 2024-01-22 09:07 | Outpatient (REF) | payer OTHER, SELFPAY ==
[2024-01-22 09:35] LABS: MANUAL DIFF FLAG NO
[2024-01-22 10:00] LABS: Basophils Percent Auto 0.2 % (0-2); Eosinophils Absolute Auto 0.1 X10*3/uL (0.0-0.4); Eosinophils Percent Auto 2.3 % (0-4); Hematocrit 38.1 % (37.0-47.0); Imm Gran Abs Auto 0.02 X10*3/uL (0.00-0.03); Imm Gran Pct Auto 0.5 % (0.0-0.4); Lymphocytes Absolute Auto 1.2 X10*3/uL (1.2-4.9); Lymphocytes Percent Auto 26.1 % (20-40); Mean Corpuscular HGB Conc 31.5 g/dl (31.0-35.0); Mean Corpuscular Hemoglobin 28.3 pg (27.0-33.0); Mean Corpuscular Volume 89.9 fL (80.0-98.0); Mean Platelet Volume 10.9 fL (9.4-12.3); Monocytes Absolute Auto 0.4 X10*3/uL (0.1-1.2); Monocytes Percent Auto 9.2 % (2-11); Neutrophils Absolute Auto 2.7 x10*3/uL (2.0-8.3); Neutrophils Percent Auto 61.7 % (45-73); Platelet Count 210 X10*3/uL (160-400); Red Blood Count 4.24 X10*6/uL (4.20-5.50); Red Cell Distribution Width 13.2 % (11.0-16.0); White Blood Count 4.4 X10*3/uL (4.8-10.8)
[2024-01-22 10:54] LABS: Alanine Aminotransferase 21 U/L (0-31); Alkaline Phosphatase 106 U/L (39-117); Anion Gap 11 (12-20); Aspartate Amino Transferase 22 U/L (5-31); Bilirubin Total 0.4 mg/dL (0.0-1.0); Blood Urea Nitrogen 26 mg/dL (9-16); Carbon Dioxide 28 mmol/L (22-29); Chloride 108 mmol/L (96-108); Cholesterol 173 mg/dL (<200); Estimated Glomerular Filt Rate 46; Glucose Fasting 93 mg/dL (60-99); HDL Cholesterol 38 mg/dL (>40); LDL Cholesterol Calculated 96 mg/dL (<100); Potassium 5.1 mmol/L (3.3-5.1); Sodium 142 mmol/L (135-145); Total Protein 8.2 g/dL (6.5-8.0); Triglycerides 197 mg/dL (<150)
[2024-01-22 11:03] LABS: Free T4 (Free Thyroxine) 1.14 ng/dL (0.71-1.85)
[2024-01-22 11:14] LABS: Thyroid Stimulating Hormone 1.02 uIU/mL (0.32-4.0)
[2024-01-23 12:06] LABS: Iron 71 mcg/dL (30-160); Percent Iron Saturation 32 % (15-50); Total Iron Binding Capacity 223 mcg/dL (228-428); Unsaturated Iron Binding 152 ug/dL
[2024-01-23 12:20] LABS: Ferritin 281 ng/mL (10-250); Vitamin D 25-OH Total 54.3 ng/mL (>30)
== END 2024-01-22 09:08 | disposition home or self-care (01) ==
LOC: HO.LAB 09:07
PROVIDERS: Internal Medicine; PCP Internal Medicine; Referring Provider Physician Assistant; Visit Provider Internal Medicine
DX: E78.00 Pure hypercholesterolemia, unspecified (principal); E03.9 Hypothyroidism, unspecified; D64.9 Anemia, unspecified; I11.9 Hypertensive heart disease without heart failure; I73.9 Peripheral vascular disease, unspecified; N18.32 Chronic kidney disease, stage 3b; D63.1 Anemia in chronic kidney disease; K22.0 Achalasia of cardia
CPT/HCPCS: 36415; 80053; 80061; 82306; 82728; 83540; 84439; 84443; 85025

== ENCOUNTER 2024-01-28 14:03 | Outpatient (REF) | payer OTHER, SELFPAY ==
--- NOTE | ~2024-01-28 | CT_ITS ---
EXAMINATION: CT CHEST WITH CONTRAST CLINICAL INFORMATION: Achalasia COMPARISON: Barium swallow 12/20/2022 CT abdomen pelvis 07/20/2011 TECHNIQUE: Multidetector volumetric CT imaging of the chest was obtained after the administration of 65 mL of Omnipaque 350 intravenous contrast without immediate adverse reactions. Axial MIP volume rendering provided. Sagittal and coronal reformatted images were obtained. This CT examination was performed using dose optimization techniques as appropriate, variously including the following: *Automated exposure control *Adjustment of mA and/or kV according to patient size (this includes techniques or standardized protocols for targeted exams where dose is matched to indication/reason for exam; i.e. extremities or head) *Use of iterative reconstruction technique DLP: 149 mGy-cm FINDINGS: LUNGS: Some minimal emphysematous changes are seen. Suture line present at the left lung base. 3.3 cm ovoid pneumatocele/bolus left lower lobe. Calcified granuloma seen at the right lung base along with a calcified right infrahilar lymph node ( a Ghon Complex). Groundglass infiltrates seen in the right middle lobe and at the left lung base. In the right lower lobe, there are 2 areas of airspace opacity and cystic changes the largest measuring 2.5 x 1.8 cm (5:167). There is a nodular opacity in the posterior medial right costophrenic sulcus measuring 7.5 mm (9:67) unchanged from 2012 (prior 103:6). MEDIASTINUM: There is an anterior mediastinal mass seen measuring 2.1 x 1.2 x 2.6 cm. This measures 57 Hounsfield units. No other sizable mediastinal lymph nodes are seen. Heart size upper limits of normal. The esophagus contains air but is not unusually dilated. No significant fluid level is seen in the esophagus. PLEURA: There is no pleural effusion. No pleural mass or thickening. AXILLA: No lymphadenopathy. UPPER ABDOMEN: There is bilateral renal scarring. Patient status post cholecystectomy. There is colonic diverticulosis without diverticulitis. OSSEOUS STRUCTURES: Unremarkable. CT/CT chest w IV con IMPRESSION: 1. Anterior mediastinal mass. Differential diagnosis would include thymoma, lymphoma or germ cell tumor. Unfortunately, there are no prior chest CTs for comparison. 2. Groundglass infiltrates in the right middle lobe and left lung base. 3. Right lower lobe airspace opacities with cystic changes. 4. Long-term stability of 7.5 mm right lower lobe nodule. 5. Evidence of prior granulomatous disease. 6. Other incidental findings as described above. Fleischner guidelines were followed. Electronically signed by: Leonardo Louie MD 01/28/2024 05:20 PM EDT RP
[2024-01-28] MEDS: iohexoL 350 MG/ML 100 ML INFUS..BTL 65 ML IV (15:27)
== END 2024-01-28 14:04 | disposition home or self-care (01) ==
LOC: HO.CT 14:03
PROVIDERS: PCP Internal Medicine; Visit Provider Internal Medicine
DX: K22.0 Achalasia of cardia (principal)
CPT/HCPCS: 71260; Q9967

== ENCOUNTER 2024-01-30 13:48 | Outpatient (AMB) | payer OTHER, SELFPAY ==
[2024-01-30 13:51] VITALS: BP 122/64; PULSE 70; O2SAT 98; BMI 33.7
--- NOTE | 2024-01-30 13:51 | MHC.OFFVIS ---
Vital Signs 01/30/24 13:51 Height 5 ft 10 in Weight 235 lb BMI 33.7 BP 122/64 Blood Pressure Location Rt brachial Position Sitting Pulse 70 Pulse Source Doppler Pulse Oximetry (%) 98 Oxygen Delivery Method Room Air Intake Visit Reasons: Abnormal CT scan General Service Technician Required: Yes General Service Technician Name: Nikki Tab Sims Allergies Penicillins [PENICILLINS] Allergy (Intermediate, Verified 01/30/24 13:57) rash senna Allergy (Intermediate, Verified 01/30/24 13:57) rash HPI HPI Abnormal CT scan: Details: 78-year-old lady, nonsmoker who has had an incidental finding of anterior mediastinal substernal 2.[address] noted on [address] chest obtained for workup of achalasia. Patient denies any pulmonary related concerns or complaints. She denies family history of lung disease. [facility] Medical History (Updated 01/31/24 @ 08:25 by Heide Keller PA-C) BPV (benign positional vertigo) Gait instability Cervicogenic headache Cervicalgia Vertigo Chronic kidney disease, stage III (moderate) Obesity (BMI 30-39.9) Gastritis Benign essential hypertension GERD without esophagitis Acquired hypothyroidism Constipation Lumbar spondylosis Post laminectomy syndrome Connective tissue disease CKD (chronic kidney disease) Interstitial lung disease Osteopenia COVID-19 vaccine series completed PAC (premature atrial contraction) Sjogrens syndrome Hypothyroid Breast cancer Osteoarthritis Raynauds disease SAMARA positive Surgical History Hx of tubal ligation H/O varicose vein stripping History of cataract surgery H/O lumpectomy Hx of cholecystectomy History of back surgery Family History Father Cancer Emphysema of lung Brother Emphysema of lung Mother Bone cancer Other Arthritis Social History Household Members: Spouse and Children Housing: Apartment Are you a primary career advisor to a significant other at home: No Do you presently have visiting nurse or other home services: No Alcohol intake: never Comment: pt reports this is her baseline pain Patient Tobacco Use Status: Never used Tobacco e-Cigarette/Vaping Use: Never Used Second Hand Smoke Exposure: No service: No Current occupational status: retired Cognitive needs: No Hearing needs: No Vision needs: Yes (Glasses) Review of Systems Const Denies daytime sleepiness, Denies excessive sweating, Denies fatigue, Denies fever(s), Denies lethargy, Denies malaise, Denies night sweats, Denies snoring and Denies weight loss Eyes Denies blurry vision and Denies itchy eyes ENT Denies nasal congestion, Denies post nasal drip, Denies sinus pain, Denies sinus pressure and Denies other ( Thrush) Card Denies chest pain, Denies pedal edema, Denies dyspnea, Denies orthopnea and Denies paroxysmal nocturnal dyspnea Resp Denies cough, Denies hemoptysis, Denies excessive phlegm production, Denies dyspnea, Denies snoring and Denies wheezing GI Denies abdominal pain and Denies heartburn Musc Denies myalgias, Denies arthralgias and Denies joint swelling Skin/Breast Denies rash Neuro Denies memory loss and Denies seizure-like activity Psych Denies abnormal sleep pattern, Denies anxiety and Denies memory loss Endo Denies excessive sweating, Denies fatigue and Denies heat intolerance Rogelio/Lymph Denies easy bruising Aller/Immun Denies itchy eyes, Denies seasonal rhinorrhea and Denies wheezing Physical Exam Vital Signs: Last Vital Signs Pulse 70 01/30/24 13:51 BP 122/64 01/30/24 13:51 Pulse Ox 98 01/30/24 13:51 Oxygen Delivery Method Room Air 01/30/24 13:51 BMI result Body Mass Index 33.7 Const General: no acute distress and alert Nutritional Appearance: not obese Orientation/consciousness: Other orientation findings ( oriented) HEENT Head: Yes atraumatic Eyes General: appearance normal, both eyes and all related structures Sclerae: sclerae normal EOM: EOMs intact bilaterally Neck Neck: Yes supple Lymphatic: no lymphadenopathy noted Resp Effort & Inspection: normal respiratory effort and no use of accessory muscles Auscultation: clear to auscultation bilaterally Cardio Rate: regular rate Rhythm: regular rhythm Heart sounds: no gallops, no murmurs and no rubs Skin General skin exam: other ( warm) Extrem General: No clubbing, No cyanosis and No edema Assessment & Plan Assessment & Plan (1) Mediastinal mass: Code(s): J98.59 - Other diseases of mediastinum, not elsewhere classified Category: Medical Plan: Mediastinal mass, will refer to thoracic surgery. Orders: Referrals Thoracic/General Surgery Referral J98.59 - Other diseases of mediastinum, not elsewhere classified Coding Level of Care Code New Pt Level 3 (87572) Diagnoses 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
== END 2024-01-30 14:17 | disposition home or self-care (01) ==
PROVIDERS: PCP Internal Medicine; Referring Provider Internal Medicine; Visit Provider Internal Medicine Pulmonary Disease
DX: J98.59 Other diseases of mediastinum, not elsewhere classified (principal)
CPT/HCPCS: 99203

== ENCOUNTER → 2024-01-30 13:48 | Outpatient (BNVA) | payer OTHER, SELFPAY | PROVIDERS: PCP Internal Medicine; Referring Provider Internal Medicine; Visit Provider Internal Medicine Pulmonary Disease | DX: J98.59 Other diseases of mediastinum, not elsewhere classified (principal) | CPT/HCPCS: 99202 ==

== ENCOUNTER 2024-02-04 13:20 | Outpatient (AMB) | payer OTHER, SELFPAY ==
[2024-02-04 13:21] VITALS: BP 140/80; PULSE 76; O2SAT 97; BMI 33.3
--- NOTE | 2024-02-04 13:21 | MHC.PC.OV ---
Vital Signs 02/04/24 13:21 Height 5 ft 10 in Weight 232 lb 6 oz BMI 33.3 BP 140/80 H Blood Pressure Location Lt brachial Position Sitting Pulse 76 Pulse Source Pulse Oximeter Pulse Oximetry (%) 97 Oxygen Delivery Method Room Air Intake Visit Reasons: 4mof\u Hr Advisor Required: No Accompanied by: Self / Same As Patient Allergies Penicillins [PENICILLINS] Allergy (Intermediate, Verified 06/06/24 13:48) rash senna Allergy (Intermediate, Verified 06/06/24 13:48) rash Medication List - Last Reconciled 02/04/24 by Truong Colon MD amlodipine 10 mg PO DAILY bisacodyl 5 mg PO BEDTIME 90 days calcitriol 1 mcg orally weekly; administer after dialysis on dialysis days cane As directed - use when walking carvedilol 12.5 mg PO BID 90 days clotrimazole 1% 1 appl topical BID 2 weeks [Commode As directed] [DISPOSABLE BED PADS Use as directed ONCE A DAY] [DISPOSABLE GLOVES - LARGE (1 box/month) Use as directed] docusate sodium 100 mg PO DAILY PRN 90 days [FEMININE PADS As directed] levothyroxine 125 mcg PO DAILY 90 days magnesium oxide 400 mg PO DAILY [MEDICATED INCONTINENCE WIPES As directed] multivitamin 1 tab PO DAILY omeprazole TAKE 1 CAPSULE BY MOUTH EVERY DAY valacyclovir (Valtrex) 500 mg PO BID 7 days Tobacco use date assessed: 02/04/24 Fall risk assessment: No Falls in past year Last assessed Fall Risk: 02/04/24 Dental Screening Dental Screen Date: 02/04/24 Did you have a dental visit in the last 12 months?: Yes Did you have a dental problem in the last 6 months where you did not have access to dental care?: No Was dental information given to patient?: Patient has dentist HPI 4mof\u HPI Details Patient comes in today for her follow up visit States that she continues to experience increased pain over her lower back and she is scheduled to have back injections with pain management in a few days She is also still experiencing recurrent headaches and dizziness She was sent for physical therapy but has not been able to do so because her insurance does not cover physical therapy and she has to pay out a co-pay for each session She denies any chest pains, no shortness of breath No nausea/vomiting, no abdominal pain No change in bowel habits noted She had her follow up labs done a couple of weeks ago - to discuss her results [facility] Medical History Ambulates with cane Difficulty swallowing Osteoarthritis of right knee BPV (benign positional vertigo) Gait instability Cervicogenic headache Cervicalgia Vertigo Chronic kidney disease, stage III (moderate) Obesity (BMI 30-39.9) Gastritis Benign essential hypertension GERD without esophagitis Acquired hypothyroidism Constipation Lumbar spondylosis Post laminectomy syndrome Connective tissue disease Interstitial lung disease Osteopenia PAC (premature atrial contraction) Sjogrens syndrome Hypothyroid Breast cancer Raynauds disease SAMARA positive Surgical History 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) Hx of colonoscopy Hx of tubal ligation H/O varicose vein stripping History of cataract surgery H/O lumpectomy Hx of cholecystectomy History of back surgery Family History Father Emphysema of lung Cancer Brother Emphysema of lung Mother Bone cancer Son PONV (postoperative nausea and vomiting) Other Arthritis Social History Household Members: Significant Other and Children Housing: Apartment Are you a primary transitions rn care coordinator to a significant other at home: No Do you presently have visiting nurse or other home services: No Alcohol intake: former Comment: pt reports this is her baseline pain Patient Tobacco Use Status: Never used Tobacco e-Cigarette/Vaping Use: Never Used Second Hand Smoke Exposure: No service: No Current occupational status: retired Cognitive needs: No Hearing needs: No Vision needs: Yes (Glasses) Questionnaire PHQ-9 Over the last 2 weeks, how often have you been bothered by any of the following problems? 1. Little interest or pleasure in doing things: not at all 2. Feeling down, depressed, or hopeless: not at all 3. Trouble falling or staying asleep, or sleeping too much: not at all 4. Feeling tired or having little energy: not at all 5. Poor appetite or overeating: not at all 6. Feeling bad about yourself - or that you are a failure or have let yourself or your family down: not at all 7. Trouble concentrating on things, such as reading the newspaper or watching television: not at all 8. Moving or speaking so slowly that other people could have noticed. Or the opposite - being so fidgety or restless that you have been moving around a lot more than usual: not at all 9. Thoughts that you would be better off or of hurting yourself in some way: not at all Total score: 0 Depression Screening Interpretation: Negative Depression Screening Done: Yes 25845 - PHQ-9 Billing: Yes Source: Developed by Drs. Timoteo Covington, Lucy Arndt, Guevara Jewell and colleagues, with an educational tere from [employer]. Thrive Questionnaire Date Thrive assessed: 02/04/24 I am a: Patient What is your living situation today?: I have a steady place to live Within the past 12 months, did the food you bought not last and you didn't have the money to get more?: Never true Within the past 12 months, did you worry whether your food would run out before you got money to buy more?: Never true Do you have trouble paying for medicines?: No Do you have trouble getting transportation to medical appointments?: No Do you have trouble paying your heating and electricity bill?: No Do you have trouble taking care of your child, family member or friend?: No Do you have trouble with day-to-day activities such as bathing, preparing meals, shopping, managing finances, etc.?: No Are you currently unemployed and looking for a job?: No Are you interested in more education?: No Please select the resources that you would like help with: None Currently or been in a relationship where the following occur: No concerns reported THRIVE Score: 0 AUDIT C Alcohol Use Questionnaire (AUDIT-C) 1. How often do you have a drink containing alcohol?: Never Total Score: 0 Score Reviewed/Action Taken: Yes MO-7 AMB Questionnaire MO-7 Date MO - 7 assessed: 02/04/24 Feeling nervous, anxious, or on edge: 0 = Not at all Not being able to stop or control worryin = Not at all Worrying too much about different things: 0 = Not at all Trouble relaxin = Not at all Being so restless that it is hard to sit still: 0 = Not at all Becoming easily annoyed or irritable: 0 = Not at all Feeling afraid as if something awful might happen: 0 = Not at all Total MO-7 score (0-4 normal; 5-9 mild; 10-14 moderate; 15-21 severe): 0 Source: Developed by Drs. Timoteo Covington, Lucy Arndt, Guevara Jewell and colleagues, with an educational tere from [employer]. Review of Systems Const Denies chills, Denies fatigue, Denies fever(s) and Denies headache(s) ENT Reports dysphagia (reports (+) problems with swallowing at times ), Reports dizziness (on and off), Denies otalgia, Denies headache(s), Denies neck pain, Denies odynophagia and Denies sore throat Card Denies chest pain, Denies rapid heart rate, Denies irregular heart rhythm, Denies palpitations and Denies dyspnea Resp Denies chest congestion, Denies cough and Denies dyspnea GI Denies abdominal pain, Denies constipation, Reports dysphagia (reports (+) problems with swallowing at times ), Denies diarrhea, Denies nausea, Denies odynophagia and Denies vomiting Denies hematuria, Denies urinary frequency, Denies dysuria and Denies urinary urgency Musc Reports abnormal gait (unsteady), Reports back pain (over the lower back - chronic), Denies arthralgias and Denies neck pain Skin/Breast Denies rash Neuro Reports abnormal gait (unsteady), Reports dizziness (on and off), Denies headache(s) and Denies paresthesias Psych Reports anxiety (increasing) Endo Denies fatigue and Denies palpitations Rogelio/Lymph Denies easy bruising Physical exam (Primary Care) Vital Signs: Last Vital Signs Pulse 76 02/04/24 13:21 BP 140/80 H 02/04/24 13:21 Pulse Ox 97 02/04/24 13:21 Oxygen Delivery Method Room Air 02/04/24 13:21 BMI result Body Mass Index 33.3 Tobacco/Smoking Status: Tobacco use Status Tobacco use date assessed 02/04/24 02/04/24 13:26 Patient Tobacco Use Status Never used Tobacco 02/04/24 13:26 e-Cigarette/Vaping Use Never Used 02/04/24 13:26 PHQ-9: PHQ-9 Score PHQ-9: Total score 0 02/04/24 13:44 Depression Screening Interpretation: Negative Thrive Assessment: Date of Thrive Assessment Date Thrive assessed 02/04/24 02/04/24 13:26 Currently or been in a relationship where the following occur: No concerns reported Const General: no acute distress and alert HENMT Ears: TM's normal bilaterally and EAC's normal Throat: Yes posterior oropharynx normal and Yes tonsils normal (no TP congestion) Neck Neck: Yes supple and No lymphadenopathy Thyroid: Thyroid normal Resp Auscultation: clear to auscultation bilaterally (although there is some dullness noted at the left lung base), no rales and no wheezes Cardio Rate: regular rate Rhythm: regular rhythm Heart sounds: no murmurs GI Palpation (GI): Soft to palpation and nontender Auscultation: normal bowel sounds General: Yes no CVA tenderness Back/Spine/Pelvis Back: no CVA tenderness Thoracic/Lumbar Spine: lumbar spinal tenderness (chronic) Skin Rashes: no rashes Extrem General: Yes no clubbing, cyanosis or edema Right lower extremity: knee Details: tenderness; no swelling Results Reviewed Results Reviewed: Laboratory Tests 01/22/24 09:34 WBC 4.4 L Hgb 12.0 Hct 38.1 Plt Count 210 Sodium 142 Potassium 5.1 Creatinine 1.13 Estimated GFR 46 Fasting Glucose 93 Calcium 10.0 Iron 71 TIBC 223 L % Saturation 32 Unsat Iron Binding 152 Ferritin 281 H AST 22 ALT 21 Triglycerides 197 H Cholesterol 173 LDL Cholesterol, Calc 96 HDL Cholesterol 38 L 25-OH Vitamin D Total 54.3 TSH 1.02 Free T4 1.14 Coding Level of Care Code Est Pt Level 4 (44519) Diagnoses Benign essential hypertension I10 Cervicogenic headache G44.86 Vertigo R42 Acquired hypothyroidism E03.9 Stage 3b chronic kidney disease N18.32 Chronic kidney disease stage 3 subtype: stage 3b (GFR 30-44) Sjogren's syndrome without extraglandular involvement M35.00 Sjogren's organ involvement: without extraglandular involvement GERD without esophagitis K21.9 Dysphagia, unspecified type R13.10 Dysphagia type: unspecified Chronic idiopathic constipation K59.04 Lumbar spondylosis M47.816 Primary osteoarthritis of right knee M17.11 Obesity (BMI 30-39.9) E66.9 Assessment & Plan Assessment & Plan (1) Benign essential hypertension: Code(s): I10 - Essential (primary) hypertension Category: Medical Plan: Reinforced low sodium diet - goal is systolic BP of at least 130 to 140 mm or less Continue Amlodipine 10 mg QD and Carvedilol 12.5 mg BID (2) Cervicogenic headache: Code(s): G44.86 - Cervicogenic headache Category: Medical Plan: Patient was seen by Neurology a few months ago and was advised that her headaches are most likely related to her frequent neck pain She was sent for physical therapy further evaluation and management and myofascial release but patient did not go as her insurance does not cover physical therapy sessions and she has to pay a co-pay each time she goes She was also started on cyclobenzaprine at bedtime by Neurology, which patient states did not really help (3) Vertigo: Comment: BPV Code(s): R42 - Dizziness and giddiness Category: Medical Plan: Patient was also referred to physical therapy for canalith repositioning but she did not pursue this as her insurance did not cover physical therapy sessions Patient states that her dizziness seems to have subsided somewhat lately (4) Acquired hypothyroidism: Code(s): E03.9 - Hypothyroidism, unspecified Category: Medical Plan: Results of her labs done a couple of weeks ago reviewed and discussed with patient - her TFTs were normal on her recent labs Continue Levothyroxine 125 mcg QD Will have patient recheck her labs in 4 months for follow up (5) Chronic kidney disease, stage III (moderate): Code(s): N18.30 - Chronic kidney disease, stage 3 unspecified Category: Medical Qualifiers: Chronic kidney disease stage 3 subtype: stage 3b (GFR 30-44) Qualified Code(s): N18.32 - Chronic kidney disease, stage 3b Plan: Patient's renal function appears stable on her recent labs Ww will continue to monitor her renal function closely Follow up with nephrology (Dr. Meza) as scheduled (6) Sjogrens syndrome: Code(s): M35.00 - Sjogren syndrome, unspecified Category: Medical Qualifiers: Sjogren's organ involvement: without extraglandular involvement Qualified Code(s): M35.00 - Sicca syndrome, unspecified Plan: She seen by rheumatology for positive Sjogren's antibody and with sicca symptoms She was initially thought to have Sjogren's syndrome but patient has never had any inflammatory arthritis symptoms or signs and no other extraglandular manifestations of Sjogren's have been detected - was advised that her symptoms are more due to osteoarthritis and that she DOES NOT HAVE SJOGREN'S SYNDROME Follow up with rhuematology as scheduled (7) GERD without esophagitis: Code(s): K21.9 - Gastro-esophageal reflux disease without esophagitis Category: Medical Plan: Dietary restrictions reinforced Continue Omeprazole 40 mg QD Follow up with GI as scheduled (8) Dysphagia: Code(s): R13.10 - Dysphagia, unspecified Category: Medical Qualifiers: Dysphagia type: unspecified Qualified Code(s): R13.10 - Dysphagia, unspecified Plan: Her barium swallow done last year showed findings consistent with achalasia / lower esophageal sphincter spasm with associated nonmotility She was sent for a chest CT by GI for further evaluation, which she had done last week - 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 and she is being sent for additional workups for this Patient states that her symptoms of dysphagia have improved somewhat, likely from her PPI Rx Follow up with GI as scheduled (9) Chronic idiopathic constipation: Code(s): K59.04 - Chronic idiopathic constipation Category: Medical Plan: Reinforced increased oral fluids and dietary fiber Continue Bisacodyl 5 mg QD PRN (10) Lumbar spondylosis: Code(s): M47.816 - Spondylosis without myelopathy or radiculopathy, lumbar region Category: Medical Plan: Reinforced activity and weight-lifting restrictions Patient has failed back injections in the past She is scheduled to see pain management again in a few days for a Right L4-L5 TFESI trial (11) Primary osteoarthritis of right knee: Code(s): M17.11 - Unilateral primary osteoarthritis, right knee Category: Medical Plan: Continue Acetaminophen ER 650 mg Q 12 hours PRN Follow up with orthopedics as scheduled (12) Obesity (BMI 30-39.9): Code(s): E66.9 - Obesity, unspecified Category: Medical Plan: Reinforced diet; exercise and weight loss are not realistic at this time due to patient's chronic low back pain and physical issues Plan Follow up in 4 months Orders: Orders Comprehensive [place]. Panel Fast 4 Months E78.00 - Pure hypercholesterolemia, unspecified Complete Blood Count Auto Diff 4 Months D64.9 - Anemia, unspecified Lipid Panel 4 Months E78.00 - Pure hypercholesterolemia, unspecified Medications: New [ROLLATOR] As directed 1 ea 0RF M17.11 - Unilateral primary osteoarthritis, right knee, M54.41 - Lumbago with sciatica, right side, G89.29 - Other chronic pain, M70.61 - Trochanteric bursitis, right hip
== END 2024-02-04 14:03 | disposition home or self-care (01) ==
PROVIDERS: PCP Internal Medicine; Visit Provider Internal Medicine
DX: I10 Essential (primary) hypertension (principal); G44.86 Cervicogenic headache; R42 Dizziness and giddiness; E03.9 Hypothyroidism, unspecified; N18.32 Chronic kidney disease, stage 3b; M35.00 Sjogren syndrome, unspecified; K21.9 Gastro-esophageal reflux disease without esophagitis; R13.10 Dysphagia, unspecified; K59.04 Chronic idiopathic constipation; M47.816 Spondylosis without myelopathy or radiculopathy, lumbar region; M17.11 Unilateral primary osteoarthritis, right knee; E66.9 Obesity, unspecified

== ENCOUNTER → 2024-02-04 13:20 | Outpatient (BNVA) | payer OTHER, SELFPAY | PROVIDERS: PCP Internal Medicine; Visit Provider Internal Medicine ==

== ENCOUNTER 2024-02-07 06:03 | Outpatient (REF) | payer OTHER, SELFPAY | END 2024-02-07 06:04 | disposition home or self-care (01) | LOC: CF 06:03 | PROVIDERS: Visit Provider Internal Medicine | DX: M54.16 Radiculopathy, lumbar region (principal); G89.29 Other chronic pain | CPT/HCPCS: 64483; J1100; J2003; Q9967 ==

== ENCOUNTER 2024-02-07 09:43 | Outpatient (AMB) | payer OTHER, SELFPAY ==
--- NOTE | 2024-02-07 09:44 | MHC.OFFVIS ---
Vital Signs 02/07/24 09:48 02/07/24 10:37 BP 137/67 144/72 H Blood Pressure Location Lt brachial Lt brachial Position Sitting Sitting Pulse 64 75 Pulse Source Pulse Oximeter Pulse Oximeter Pulse Oximetry (%) 100 98 Oxygen Delivery Method Room Air Room Air Intake Visit Reasons: Right L4-L5 TFESI Allergies Penicillins [PENICILLINS] Allergy (Intermediate, Verified 02/04/24 13:42) rash senna Allergy (Intermediate, Verified 02/04/24 13:42) rash HPI HPI Right L4-L5 TFESI: Details: Patient presents for scheduled procedure. Denies any recent cough, cold, infection, fever or other significant changes in medical history since last office visit. [facility] Medical History (Updated 02/07/24 @ 13:17 by Jon Deluna MD) BPV (benign positional vertigo) Gait instability Cervicogenic headache Cervicalgia Vertigo Chronic kidney disease, stage III (moderate) Obesity (BMI 30-39.9) Gastritis Benign essential hypertension GERD without esophagitis Acquired hypothyroidism Constipation Lumbar spondylosis Post laminectomy syndrome Connective tissue disease CKD (chronic kidney disease) Interstitial lung disease Osteopenia COVID-19 vaccine series completed PAC (premature atrial contraction) Sjogrens syndrome Hypothyroid Breast cancer Osteoarthritis Raynauds disease SAMARA positive Surgical History Hx of tubal ligation H/O varicose vein stripping History of cataract surgery H/O lumpectomy Hx of cholecystectomy History of back surgery Family History Father Cancer Emphysema of lung Brother Emphysema of lung Mother Bone cancer Other Arthritis Social History Household Members: Spouse and Children Housing: Apartment Are you a primary health care facilities inspector to a significant other at home: No Do you presently have visiting nurse or other home services: No Alcohol intake: never Comment: pt reports this is her baseline pain Patient Tobacco Use Status: Never used Tobacco e-Cigarette/Vaping Use: Never Used Second Hand Smoke Exposure: No service: No Current occupational status: retired Cognitive needs: No Hearing needs: No Vision needs: Yes (Glasses) Physical Exam Vital Signs: Last Vital Signs Pulse 75 02/07/24 10:37 BP 144/72 H 02/07/24 10:37 Pulse Ox 98 02/07/24 10:37 Oxygen Delivery Method Room Air 02/07/24 10:37 Office Procedures Details: Transforaminal epidural steroid injection, Right L4/5 After obtaining written consent, pre-procedure blood pressure and heart rate were stable and recorded in the nursing record. The patient was placed in the prone position on the fluoroscopy table. The lumbosacral area was prepped with chloraprep, allowed to dry and draped in sterile fashion. Using fluoroscopy, the skin overlying our target was anesthetized with 0.5% lidocaine. A 22 gauge 3.5 inch spinal needle was advanced to the safe triangle in the upper pole of the right L4/5 foramen. No paresthesias were elicited with needle placement and aspiration was negative for blood and CSF. Correct needle position was confirmed with approximately 1 ml contrast dye (Omnipaque 180 mg/ml) injected under real-time fluoroscopy. No evidence of vascular or intrathecal uptake was seen and there was both epidural and peripheral spread of the contrast agent. 10 mg dexamethasone plus 1 ml containing 0.5% lidocaine was slowly injected. The needle was flushed and removed. The skin was cleansed and a sterile bandages were applied. The patient tolerated the procedure well and no complications were encountered. Following the procedure the patient's vital signs were stable. The patient was discharged home in good condition with post-procedural instructions. Time Out: Immediately prior to the procedure, the following was verbally confirmed that there is a signed consent form and that the correct patient, planned procedure, site and side are consistent with documentation and that necessary equipment and/or blood products are available prior to the start of the case. Complications: none EBL: <5 cc 91872 - Lumbar/Sacral Procedure code (CPT) selection complete Assessment & Plan Assessment & Plan (1) Lumbar radiculopathy: Code(s): M54.16 - Radiculopathy, lumbar region Category: Medical Plan Patient is status post right L4-5 TFESI. Patient tolerated procedure well and was discharged home in stable condition with discharge instructions. All questions were answered. We will follow-up via telephone or in clinic to assess response to therapy. A follow-up appointment was made during today's visit. Orders: Orders FL guidance in treatment room Today G89.29 - Other chronic pain, M54.41 - Lumbago with sciatica, right side Coding Level of Care Code Procedure Only Diagnoses Lumbar radiculopathy M54.16 CPT Codes Transforaminal Epidural Steroid Inj - TESI 3: 77889 - Lumbar/Sacral ([id number])
[2024-02-07 09:48] VITALS: BP 137/67; PULSE 64; O2SAT 100
[2024-02-07 10:37] VITALS: BP 144/72; PULSE 75; O2SAT 98
== END 2024-02-07 10:39 | disposition home or self-care (01) ==
LOC: HO.PMCPRC 09:43
PROVIDERS: PCP Internal Medicine; Visit Provider Internal Medicine
DX: M54.16 Radiculopathy, lumbar region (principal)
CPT/HCPCS: 64483

== ENCOUNTER → 2024-02-15 13:21 | Outpatient (BNV) | payer OTHER, SELFPAY | PROVIDERS: PCP Internal Medicine; Referring Provider Internal Medicine; Visit Provider Internal Medicine Medical Oncology | DX: J98.59 Other diseases of mediastinum, not elsewhere classified (principal) | CPT/HCPCS: 99204 ==

== ENCOUNTER 2024-02-18 10:06 | Outpatient (AMB) | payer OTHER, SELFPAY ==
--- NOTE | 2024-02-18 10:08 | MHC.OFFVIS ---
Vital Signs 02/18/24 10:13 Height 5 ft 10 in Weight 232 lb BMI 33.3 BP 141/63 H Blood Pressure Location Lt brachial Pulse 72 Intake Visit Reasons: Mediastinal mass Intake Note: Patient referred by Dr. Ardon for anterior mediastinal mass. Patient c/o: difficulty swallowing. On and off Rt chest pain that spreads to back but only lasts an hour or so. Chest CT; 01-28-2024. 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 She herself has no specific symptoms regarding this. She was being worked out for her esophageal symptoms. Patient has been seen by Oncology as well regarding this. Patient has no symptoms suggestive of myasthenia gravis. Chart was reviewed and patient evaluated [facility] Medical History BPV (benign positional vertigo) Gait instability Cervicogenic headache Cervicalgia Vertigo Chronic kidney disease, stage III (moderate) Obesity (BMI 30-39.9) Gastritis Benign essential hypertension GERD without esophagitis Acquired hypothyroidism Constipation Lumbar spondylosis Post laminectomy syndrome Connective tissue disease CKD (chronic kidney disease) Interstitial lung disease Osteopenia COVID-19 vaccine series completed PAC (premature atrial contraction) Sjogrens syndrome Hypothyroid Breast cancer Osteoarthritis Raynauds disease SAMARA positive Surgical History Hx of tubal ligation H/O varicose vein stripping History of cataract surgery H/O lumpectomy Hx of cholecystectomy History of back surgery Family History Father Cancer Emphysema of lung Brother Emphysema of lung Mother Bone cancer Other Arthritis Social History Household Members: Spouse and Children Housing: Apartment Are you a primary health care liaison to a significant other at home: No Do you presently have visiting nurse or other home services: No Alcohol intake: never Comment: pt reports this is her baseline pain Patient Tobacco Use Status: Never used Tobacco e-Cigarette/Vaping Use: Never Used Second Hand Smoke Exposure: No service: No Current occupational status: retired Cognitive needs: No Hearing needs: No Vision needs: Yes (Glasses) Physical Exam Vital Signs: Last Vital Signs Pulse 72 02/18/24 10:13 BP 141/63 H 02/18/24 10:13 BMI result Body Mass Index 33.3 HEENT Other: No obvious cervical, periclavicular, or axillary adenopathy bilaterally. Chest Other: Chest breath sounds bilaterally, HS 1 in 2 GI Other: Abdomen soft, benign Assessment & Plan Assessment & Plan (1) Mediastinal mass: Code(s): J98.59 - Other diseases of mediastinum, not elsewhere classified Category: Medical Plan I discussed with the patient various options which would include surveillance with periodic (six-month) CT scan follow-up, IR biopsy ( although I do not think this is amenable to IR biopsy because of its site and size), or last surgical excision. Will discuss with IR. Joao we will run it by his attending to see if it is amenable to biopsy or not. Coding Level of Care Code New Pt Level 5 (38278) Diagnoses 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
[2024-02-18 10:13] VITALS: BP 141/63; PULSE 72; BMI 33.3
== END 2024-02-18 10:30 | disposition home or self-care (01) ==
PROVIDERS: PCP Internal Medicine; Referring Provider Internal Medicine Pulmonary Disease; Visit Provider Surgery
DX: J98.59 Other diseases of mediastinum, not elsewhere classified (principal)
CPT/HCPCS: 99205

== ENCOUNTER → 2024-02-18 10:06 | Outpatient (BNVA) | payer OTHER, SELFPAY | PROVIDERS: PCP Internal Medicine; Referring Provider Internal Medicine Pulmonary Disease; Visit Provider Surgery | DX: J98.59 Other diseases of mediastinum, not elsewhere classified (principal) | CPT/HCPCS: 99202 ==

== ENCOUNTER 2024-02-19 14:04 | Outpatient (AMB) | payer OTHER, SELFPAY ==
[2024-02-19 14:06] VITALS: BP 138/76; PULSE 67; O2SAT 100; BMI 33.1
--- NOTE | 2024-02-19 14:06 | MHC.OFFVIS ---
Vital Signs 02/19/24 14:06 Height 5 ft 10 in Weight 231 lb BMI 33.1 BP 138/76 Blood Pressure Location Lt brachial Position Sitting Pulse 67 Pulse Source Pulse Oximeter Pulse Oximetry (%) 100 Oxygen Delivery Method Room Air Intake Visit Reasons: OA Right knee/CM Intake Note: Patient presents today for follow up on osteoarthritis in her right knee. She was last seen in the office by Veronica Beaver on 07/03/23. She states she has pain in her right hip, down her whole leg, she had injection, they helped, but did not take her pain away. Airport Ramp Attendant Required: Yes Airport Ramp Attendant Services: Airport Ramp Attendant Offered & Declined Airport Ramp Attendant Name: Daughter in law interpreting. Accompanied by: Family/Other Allergies Penicillins [PENICILLINS] Allergy (Intermediate, Verified 02/19/24 14:14) rash senna Allergy (Intermediate, Verified 02/19/24 14:14) rash Medication List - Last Reconciled 02/19/24 by Sravanthi Berger MD amlodipine 10 mg PO DAILY bisacodyl 5 mg PO BEDTIME 90 days calcitriol 1 mcg orally weekly; administer after dialysis on dialysis days cane As directed - use when walking carvedilol 12.5 mg PO BID 90 days [Commode As directed] [DISPOSABLE BED PADS Use as directed ONCE A DAY] [DISPOSABLE GLOVES - LARGE (1 box/month) Use as directed] docusate sodium 100 mg PO DAILY PRN [FEMININE PADS As directed] levothyroxine 125 mcg PO DAILY 90 days [MEDICATED INCONTINENCE WIPES As directed] multivitamin 1 tab PO DAILY omeprazole TAKE 1 CAPSULE BY MOUTH EVERY DAY [ROLLATOR As directed] HPI Comments Details: Patient is an 78-year-old female with hypertension, hypothyroidism, fibromyalgia and OA Interval History: Patient last seen 07/03/2023. At that time she was complaining of low back pain mostly on the right and sciatica. Today she complains of widespread pain particularly her right outer hip, right knee, left upper back and bilateral lower back. Patient denies inflammatory type back pain with prolonged morning stiffness. She denies sicca symptoms stating that she has a lot of tears. Rheumatologic History: Patient presented to this institution back in 2019. Was seen by Dermatology in June 2018 for a rash that developed in a photodistribution pattern. Rash developed approx 6 months prior to her Derm visit. Had a skin biopsy done and was started on a Prednisone taper which improved her symptoms. 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 She was previously on Plaquenil but self-discontinued. And has not restarted. Carries a diagnosis of Sjogren's on a background of positive SSA and sicca symptoms. Her main symptoms however have been osteoarthritis related. And since she never had any objective evidence of inflammatory arthritis or evidence of extraglandular Sjogren's the diagnosis was put into question. When she last saw Dr. Gutierrez Duke 02/01/2023 she was started on gabapentin and given a pain management referral for her sciatica. Unsure of when the gabapentin was stopped but at her follow-up visit in 07/11/2023 she was no longer on gabapentin. Likely self discontinued. They were again was no evidence of inflammatory arthritis and she had no evidence of sicca symptoms at that time. As of now she does not fully current diagnosis of Sjogren's. She mainly follows with Rheumatology for fibromyalgia and osteoarthritis. Current Rheumatology Medication(s): [facility] Medical History BPV (benign positional vertigo) Gait instability Cervicogenic headache Cervicalgia Vertigo Chronic kidney disease, stage III (moderate) Obesity (BMI 30-39.9) Gastritis Benign essential hypertension GERD without esophagitis Acquired hypothyroidism Constipation Lumbar spondylosis Post laminectomy syndrome Connective tissue disease CKD (chronic kidney disease) Interstitial lung disease Osteopenia COVID-19 vaccine series completed PAC (premature atrial contraction) Sjogrens syndrome Hypothyroid Breast cancer Osteoarthritis Raynauds disease SAMARA positive Surgical History Hx of tubal ligation H/O varicose vein stripping History of cataract surgery H/O lumpectomy Hx of cholecystectomy History of back surgery Family History Father Cancer Emphysema of lung Brother Emphysema of lung Mother Bone cancer Other Arthritis Social History Household Members: Spouse and Children Housing: Apartment Are you a primary customer care assistant to a significant other at home: No Do you presently have visiting nurse or other home services: No Alcohol intake: never Comment: pt reports this is her baseline pain Patient Tobacco Use Status: Never used Tobacco e-Cigarette/Vaping Use: Never Used Second Hand Smoke Exposure: No service: No Current occupational status: retired Cognitive needs: No Hearing needs: No Vision needs: Yes (Glasses) Review of Systems Const Details: Review of Systems Constitutional: Denies fever, chills, weight loss ENT: Denies vision changes, eye pain or eye redness, dental caries, dry mouth GI: Denies nausea, vomiting, diarrhea, abdominal pain, change in BM Pulm: Denies SOB, SHARIF, hemoptysis, wheezing Cards: Denies chest pain, palpitations Skin: Denies Raynaud's, rash, nail changes, photosensitivity, EXPORT PACKER: Denies headaches, weakness, paresthesias, recurrent falls MSK: as per HPI All other systems reviewed and are unremarkable except noted above Physical Exam Vital Signs: Last Vital Signs Pulse 67 02/19/24 14:06 BP 138/76 02/19/24 14:06 Pulse Ox 100 02/19/24 14:06 Oxygen Delivery Method Room Air 02/19/24 14:06 BMI result Body Mass Index 33.1 APPEARANCE: No acute distress, groomed, nourished EYES no redness, eyelids normal. No temporal artery tenderness, redness or swelling. HEART:? Regular rhythm, S1-S2 heard, no murmurs, rubs or gallops. LUNG:? Clear to percussion and auscultation EXTREMITIES: No edema, no calf tenderness, normal peripheral pulses. NEURO: Oriented and alert x3. No focal weakness. JOINT EXAM: Cervical Spine:.? Full range of motion without pain; no tenderness. Thoracic Spine:.? No scoliosis.? No tenderness on palpation. Lumbar Spine:.? Alignment normal.? Moderate pain with flexion of 45 degrees with some paraspinal muscle tenderness. Chest Wall:.? No tenderness, swelling, increased warmth or erythema. Hands:. Right:? Normal pain-free range of motion with some slight swelling at the MCPs 1 through 3 but these are not tender. There is some slight bony thickening at the thumb IP but it is not tender. There is no flexor tendon triggering or tenderness, there is no tenderness in the PIP joints. There is no thenar atrophy or sensory loss. Left: Normal pain-free range of motion. Slight thickening at the 1st 2 MCP joints without tenderness. Mild nontender bony enlargement at the thumb IP. Elsewhere there is no tenderness, swelling, increased warmth or erythema. There is no flexor tendon triggering, thenar atrophy or sensory loss. Wrists: Left: There is normal pain-free range of motion without tenderness. There is a firm soft tissue lump on the dorsum of the hand consistent with a ganglion cyst. It is not tender. Right:? Normal pain-free range of motion without tenderness, swelling, increased warmth or erythema. Elbows:. Normal pain-free range of motion without tenderness, swelling, increased warmth or erythema. Shoulders: Left: Mild pain with extremes of normal range of motion. Mild anterior tenderness with questionable abductor weakness but no adenopathy or swelling. Right:?? Full range of motion with mild discomfort at the extremes of normal range of motion. There is mild anterior and trapezial tenderness without adenopathy, weakness, swelling, increased warmth or erythema. Hips:.? Right: Lumbar, lateral, and groin pain with full flexion or more than 10 degrees of internal or external rotation.. Left: Slight lumbar pain with extremes of rotation. No groin pain with motion.. Hip bursa:.? Mild bilateral trochanteric tenderness. Right worse than left Knees:.? Right: Mild pain with extremes of flexion or extension. There is mild medial and slight lateral tenderness. There is mild patellofemoral crepitus without redness, warmth or effusion. Left: Slight pain with extremes of flexion or extension with some minimal medial compartment tenderness but no effusion, redness or warmth. There is mild patellofemoral crepitus. Ankles:.? Normal pain-free range of motion without tenderness, swelling, increased warmth or erythema. Feet:.? Normal pain-free range of motion with some mild tenderness over the instep with there is a bony prominence it. There is also some 1st MTP bony enlargement, tenderness, hallux valgus deformity bilaterally. Other areas are without tenderness, swelling, increased warmth or erythema. Tender points: Mild tenderness to digital palpation at the occiput, trapezius, second rib, lateral epicondyle, knees, greater trochanter and gluteal area bilaterally. ? Office Procedures Joint Injection/Aspiration Joint Injection/Aspiration Details: Procedure was explained to the patient and consent was obtained. ? The area of interest was identified and confirmed with patient. ?This was subsequently cleaned with chlorhexidine x3. ? The area was then anesthetized using ethyl chloride spray. 80 mg Kenalog with 1 cc 1% lidocaine was injected without issue. ?Minimal to no bleeding. ?Patient tolerated procedure. Primary Site: right knee Prep: site was prepped using aseptic technique and ethochloride spray was applied Injected: 80 mg of, Kenalog, with 1 mL of and 1% plain lidocaine Approach Used: medial parapatellar Procedure: The patient tolerated the procedure well Coding 92829 - Large joint Procedure code (CPT) selection complete Joint Injection/Aspiration Joint Injection/Aspiration Details: Procedure was explained to the patient and consent was obtained. ? The area of interest was identified and confirmed with patient. ?This was subsequently cleaned with chlorhexidine x3. ? The area was then anesthetized using ethyl chloride spray. 40 mg Kenalog with 1 cc 1% lidocaine was injected without issue. ?Minimal to no bleeding. ?Patient tolerated procedure. Primary Site: other (Right greater trochanter) Prep: site was prepped using aseptic technique and ethochloride spray was applied Injected: 40 mg of, Kenalog, with 1 mL of and 1% plain lidocaine Approach Used: other (At site of maximum tenderness) Procedure: The patient tolerated the procedure well Coding 87411 - Glenohumeral/Tronchanteric Bursa/Intraarticular Procedure code (CPT) selection complete Results Reviewed Results Reviewed: Laboratory Tests 10/22/20 01/29/23 16:02 11:51 Rheumatoid Factor < 13.0 Cycl Citrul Peptide IgG <16 SS-A/Ro Antibody >8.0 POS A SS-B/La Antibody <1.0 NEG Sm (Em) Antibody <1.0 NEG SM/PROCESS CONTROLLER IgG Antibody <1.0 NEG Double Strand DNA Ab 3 Complement C3 61 L Complement C4 12 L Assessment & Plan Assessment & Plan (1) Fibromyalgia: Code(s): M79.7 - Fibromyalgia Category: Medical Plan: #Fibromyalgia Positive tender points today consistent with fibromyalgia. Started on pregabalin we will reassess its efficacy in 6 months. (2) Trochanteric bursitis, right hip: Code(s): M70.61 - Trochanteric bursitis, right hip Category: Medical Plan: #Trochanteric bursitis Status post injection today (3) Low back pain with right-sided sciatica: Code(s): M54.41 - Lumbago with sciatica, right side Category: Medical Qualifiers: Chronicity: chronic Back pain laterality: right Qualified Code(s): M54.41 - Lumbago with sciatica, right side; G89.29 - Other chronic pain Plan: #Low back pain Continue follow up with pain management (4) Osteoarthritis of right knee: Code(s): M17.11 - Unilateral primary osteoarthritis, right knee Category: Medical Qualifiers: Osteoarthritis type: primary Qualified Code(s): M17.11 - Unilateral primary osteoarthritis, right knee Plan: #Knee OA Status post injection to the right knee today. Plan I spent 20 minutes reviewing the record and labs, seeing the patient, discussing the treatment plan and documenting in the medical record ? For next visit: Review efficacy of pregabalin Orders: Orders AMB Joint Injection/Aspiration Today M17.11 - Unilateral primary osteoarthritis, right knee AMB Joint Injection/Aspiration Today G89.29 - Other chronic pain, M54.41 - Lumbago with sciatica, right side Medications: New pregabalin 50 mg PO BEDTIME 90 days 90 caps 1RF M79.7 - Fibromyalgia Coding Level of Care Code Est Pt Level 3 (07523) Diagnoses Fibromyalgia M79.7 Trochanteric bursitis, right hip M70.61 Chronic right-sided low back pain with right-sided sciatica M54.41; G89.29 Chronicity: chronic Back pain laterality: right Primary osteoarthritis of right knee M17.11 Osteoarthritis type: primary CPT Codes Coding - 09658 Large joint: 18753 - Large joint ([id number]) Coding - Joint 7: 60040 - Glenohumeral/Tronchanteric Bursa/Intraarticular ([id number])
== END 2024-02-19 15:08 | disposition home or self-care (01) ==
LOC: HO.RHE 14:05
PROVIDERS: PCP Internal Medicine; Visit Provider Student in an Organized Health Care Education/Training Program
DX: M79.7 Fibromyalgia (principal); M70.61 Trochanteric bursitis, right hip; M54.41 Lumbago with sciatica, right side; G89.29 Other chronic pain; M17.11 Unilateral primary osteoarthritis, right knee
CPT/HCPCS: 20610; 99213

== ENCOUNTER → 2024-02-19 14:04 | Outpatient (BNVA) | payer OTHER, SELFPAY | PROVIDERS: PCP Internal Medicine; Visit Provider Student in an Organized Health Care Education/Training Program | DX: M79.7 Fibromyalgia (principal); M70.61 Trochanteric bursitis, right hip; M54.41 Lumbago with sciatica, right side; G89.29 Other chronic pain; M17.11 Unilateral primary osteoarthritis, right knee | CPT/HCPCS: 20610; 99212 ==

== ENCOUNTER → 2024-02-28 11:18 | Outpatient (BNV) | payer OTHER, SELFPAY | PROVIDERS: PCP Internal Medicine; Visit Provider Internal Medicine Cardiovascular Disease | DX: R00.1 Bradycardia, unspecified (principal) | CPT/HCPCS: 93010 ==

== ENCOUNTER 2024-03-03 13:17 | Outpatient (REF) | payer OTHER, SELFPAY ==
[2024-03-03 14:09] LABS: Blood Urea Nitrogen 27 mg/dL (9-16); Estimated Glomerular Filt Rate 45
== END 2024-03-03 13:18 | disposition home or self-care (01) ==
LOC: HO.LAB 13:17
PROVIDERS: PCP Internal Medicine; Visit Provider Internal Medicine
DX: K22.0 Achalasia of cardia (principal); N18.32 Chronic kidney disease, stage 3b
CPT/HCPCS: 36415; 82565; 84520

== ENCOUNTER 2024-03-05 09:28 | Outpatient (AMB) | payer OTHER, SELFPAY ==
--- NOTE | 2024-03-05 09:37 | A.OFFVIS_ITS ---
Vital Signs 03/05/24 09:39 Height 5 ft 10 in Weight 231 lb BMI 33.1 BP 152/70 H Blood Pressure Location Lt brachial Position Sitting Respiration 15 Pulse 75 Pulse Source Pulse Oximeter Pulse Oximetry (%) 99 Oxygen Delivery Method Room Air Intake Visit Reasons: s/p Right L4-L5 TFESI Electrical & Instrumentation Supervisor Required: Yes Electrical & Instrumentation Supervisor Name: Yessi Allergies Penicillins [PENICILLINS] Allergy (Intermediate, Verified 03/17/24 10:57) rash senna Allergy (Intermediate, Verified 03/17/24 10:57) rash Medication List - Last Reconciled 03/05/24 by Sondra Ewing LPN amlodipine 10 mg PO DAILY bisacodyl 5 mg PO BEDTIME 90 days calcitriol 1 mcg orally weekly; administer after dialysis on dialysis days cane As directed - use when walking carvedilol 12.5 mg PO BID 90 days [Commode As directed] [DISPOSABLE BED PADS Use as directed ONCE A DAY] [DISPOSABLE GLOVES - LARGE (1 box/month) Use as directed] docusate sodium 100 mg PO DAILY PRN [FEMININE PADS As directed] levothyroxine 125 mcg PO DAILY 90 days [MEDICATED INCONTINENCE WIPES As directed] multivitamin 1 tab PO DAILY omeprazole TAKE 1 CAPSULE BY MOUTH EVERY DAY pregabalin 50 mg PO BEDTIME 90 days [ROLLATOR As directed] HPI HPI s/p Right L4-L5 TFESI: Details: A certified joy operator was present during the visit. 78-year-old female who presents today to the office for a status post right L4- L5 TFESI. The patient reports no relief following the procedure. She reports mild improvement in the back; however, denies any improvement in the neck. She states she saw rheumatology here recently, and was prescribed medication. She reports she has issues getting an assessment done and is being held off on the SCS implant. She is now interested in proceeding with the SCS implant. She is currently not following up with a therapist. Past procedure: 02/23/24: Percutaneous Spinal Cord Stimulator Trial, Lumbar: % relief. 02/07/24: Transforaminal epidural steroid injection, Right L4/5: % relief. 03/14/23: Transforaminal epidural steroid injection, right L4-5: 90% relief. 02/22/22: Nevro HFX spinal cord stimulator trial-100% pain relief for 5 days 08/31/21: Right Diagnostic L3-L4 and L4-L5 MBBs ? No relief. 06/22/21: Right L3-L4-L5 MBBs ? 70% back pain relief. No change in leg pain. 03/16/21: Right L4 TFESI ? 60% relief. Leg pain resolved. Back pain persisting. 01/12/21: Bilateral Caudal RAMONE with Catheter ? No relief. [facility] Medical History Ambulates with cane Osteoarthritis Difficulty swallowing Balance problem Osteoarthritis of right knee BPV (benign positional vertigo) Gait instability Cervicogenic headache Cervicalgia Vertigo Chronic kidney disease, stage III (moderate) Obesity (BMI 30-39.9) Gastritis Benign essential hypertension GERD without esophagitis Acquired hypothyroidism Constipation Lumbar spondylosis Post laminectomy syndrome Connective tissue disease CKD (chronic kidney disease) Interstitial lung disease Osteopenia COVID-19 vaccine series completed PAC (premature atrial contraction) Sjogrens syndrome Hypothyroid Breast cancer Osteoarthritis Raynauds disease SAMARA positive Surgical History Hx of colonoscopy Hx of tubal ligation H/O varicose vein stripping History of cataract surgery H/O lumpectomy Hx of cholecystectomy History of back surgery Family History Father Emphysema of lung Cancer Brother Emphysema of lung Mother Bone cancer Son PONV (postoperative nausea and vomiting) Other Arthritis Social History Household Members: Significant Other and Children Housing: Apartment Are you a primary customer care professional to a significant other at home: No Do you presently have visiting nurse or other home services: No Alcohol intake: former Comment: pt reports this is her baseline pain Patient Tobacco Use Status: Never used Tobacco Smoked in Last 30 Days: No e-Cigarette/Vaping Use: Never Used Second Hand Smoke Exposure: No Use of substances other than those prescribed or required for medical reasons: No Advance Directives: No Advance Directives Information Provided: Yes Do you have a plan to hurt others: No Plan service: No Current occupational status: retired Cognitive needs: No Hearing needs: No Vision needs: Yes (Glasses) Review of Systems Const All systems reviewed & are unremarkable except as noted in HPI and below Physical Exam Vital Signs: Last Vital Signs Pulse 75 03/05/24 09:39 Resp 15 03/05/24 09:39 BP 152/70 H 03/05/24 09:39 Pulse Ox 99 03/05/24 09:39 Oxygen Delivery Method Room Air 03/05/24 09:39 BMI result Body Mass Index 33.1 General: Appears afebrile. Alert and oriented. Mood and affect appropriate. Follows and participates in conversation appropriately. Respiratory effort is unlabored. Able to transition from sit to stand unassisted. Ambulates with bilaterally normal heel strike and toe off. Results Reviewed Results Reviewed: 01/29/23: XR LUMBOSACRAL SPINE FINDINGS: There is bony demineralization. At L2-L3 through L5-S1, there is moderate disc space narrowing, with vacuum disc phenomenon. The remaining disc spaces are relatively well-maintained. No acute fracture or spondylolisthesis seen. There is multi-level mild to moderate lumbar spondylosis. There is facet arthropathy, most pronounced at L4-L5 and L5-S1. The paravertebral soft tissues are unremarkable. There is retained contrast within colonic diverticula. There are right upper quadrant surgical clips. IMPRESSION: 1. There is moderately severe degenerative disc disease extending from L2-L3 through L5-S1, with spondylosis. 2. There is lumbar facet arthropathy, most pronounced at L4-L5 and L5-S1. Assessment & Plan Assessment & Plan (1) Post laminectomy syndrome: Comment: Hx Spinal Cord Stimulator Trial 02/22/2022 Code(s): M96.1 - Postlaminectomy syndrome, not elsewhere classified Category: Medical Plan Previously had a successful trial with 100% relief for five days and had previously been approved for an SCS implant. At the time, she decided not to proceed with the implant. But she now wants to undergo the SCS implant surgery. We will request insurance authorization to be renewed for this procedure and inform her accordingly. She has previously cleared psychologic clearance for her trial. She has had no changes in her mental or social status since the last evaluation. She denies any new symptoms or psychological symptoms related to uncontrolled depression, anxiety, or psychosis. I believe she is a good candidate to proceed with an implant given the history of prior successful trial psychologic certification and no recent changes in her mental health. Scribed for Dr. Deluna by Karl certified court/medical interpreter, on 03/05/2024. I, Dr. Deluna, have personally reviewed and agree with the information entered by the scribe. Coding Level of Care Code Est Pt Level 3 (51952) Diagnoses Post laminectomy syndrome M96.1
[2024-03-05 09:39] VITALS: BP 152/70; PULSE 75; RESP 15; O2SAT 99; BMI 33.1
== END 2024-03-05 10:02 | disposition home or self-care (01) ==
PROVIDERS: PCP Internal Medicine; Visit Provider Internal Medicine
DX: M96.1 Postlaminectomy syndrome, not elsewhere classified (principal)
CPT/HCPCS: 99213

== ENCOUNTER → 2024-03-05 09:28 | Outpatient (BNVA) | payer OTHER, SELFPAY | PROVIDERS: PCP Internal Medicine; Visit Provider Internal Medicine | DX: M96.1 Postlaminectomy syndrome, not elsewhere classified (principal) | CPT/HCPCS: 99212 ==

== ENCOUNTER 2024-03-13 10:33 | Outpatient (BNV) | payer OTHER, SELFPAY | END 2024-03-14 07:00 | PROVIDERS: Admitting Provider Surgery; PCP Internal Medicine; Visit Provider Radiology Diagnostic Radiology | DX: J98.59 Other diseases of mediastinum, not elsewhere classified (principal) | CPT/HCPCS: 71045 ==

== ENCOUNTER 2024-03-13 10:33 | Outpatient (BNV) | payer OTHER, SELFPAY | END 2024-03-13 11:00 | PROVIDERS: Admitting Provider Surgery; PCP Internal Medicine; Visit Provider Radiology Diagnostic Radiology | DX: J98.59 Other diseases of mediastinum, not elsewhere classified (principal) | CPT/HCPCS: 71045 ==

== ENCOUNTER 2024-03-13 10:33 | Inpatient (IN) | payer OTHER, SELFPAY ==
--- NOTE | 2024-02-28 | ECG_ITS ---
Test Reason : pre op Blood Pressure : / mmHG Vent. Rate : 050 BPM Atrial Rate : 050 BPM P-R Int : 182 ms QRS Dur : 106 ms QT Int : 434 ms P-R-T Axes : 074 -16 065 degrees QTc Int : 395 ms Sinus bradycardia Minimal voltage criteria for LVH, may be normal variant ( [place] product ) Borderline ECG When compared with ECG of 24-MAY-2017 18:17, QT has shortened Referred By: Dawn Trammell Electronically Signed By:RONI KNIGHT MD
[2024-02-28 10:28] VITALS: BP 123/59; PULSE 69; RESP 16; O2SAT 99; BMI 33.2
--- NOTE | 2024-02-28 10:52 | P.CONAN_ITS ---
Documented by User: Dawn Trammell NP 03/12/24 09:51 HPI - Anesthesia Eval Consult details Narrative: 78yo F for Thoracoscopy w/Video Assist,Excision Anterior Mediastinal Mass, 03/13/24 No recent illness No CP/SOB with minimal activity, walking grocery store GERD: ppi controls CKD: Follows nephro Rheum: follows for fibromyalgia and OA, questionable hx sjogren's PACs: Follows [facility] [place] Cardiology. Stable at 2022 office visit with 2 year f/u. + STOP bang moderate risk PMFSH Active Problems Active Problems: All Active Problems Mediastinal mass (Acute) Lumbar radiculopathy (Acute) Mediastinal mass (Acute) Chronic pain syndrome (Acute) Chronic idiopathic constipation (Acute) Achalasia (Acute) Tinnitus, bilateral (Acute) Cervical cancer screening (Acute) Fibromyalgia (Acute) Low back pain (Acute) Urinary incontinence (Acute) Dysphagia (Acute) Thrombophlebitis of right leg (Acute) Low back pain with right-sided sciatica (Acute) Trochanteric bursitis, right hip (Acute) Primary osteoarthritis of right knee (Acute) Sjogrens syndrome (Acute) Osteoarthritis of right knee (Acute) BPV (benign positional vertigo) (Acute) Gait instability (Acute) Cervicogenic headache (Acute) Cervicalgia (Acute) Vertigo (Acute) Raynauds disease (Acute) Chronic kidney disease, stage III (moderate) (Acute) Obesity (BMI 30-39.9) (Acute) Benign essential hypertension (Acute) GERD without esophagitis (Acute) Acquired hypothyroidism (Acute) Lumbar spondylosis (Acute) Post laminectomy syndrome (Acute) PAC (premature atrial contraction) (Acute) Past Medical History Medical History Ambulates with cane Osteoarthritis Difficulty swallowing Balance problem Osteoarthritis of right knee BPV (benign positional vertigo) Gait instability Cervicogenic headache Cervicalgia Vertigo Chronic kidney disease, stage III (moderate) Obesity (BMI 30-39.9) Gastritis Benign essential hypertension GERD without esophagitis Acquired hypothyroidism Constipation Lumbar spondylosis Post laminectomy syndrome Connective tissue disease CKD (chronic kidney disease) Interstitial lung disease Osteopenia COVID-19 vaccine series completed PAC (premature atrial contraction) Sjogrens syndrome Hypothyroid Breast cancer Osteoarthritis Raynauds disease SAMARA positive Family History Family History Father Emphysema of lung Cancer Brother Emphysema of lung Mother Bone cancer Son PONV (postoperative nausea and vomiting) Other Arthritis Family history of problems with anesthesia: No (Son vomits) Surgical History Surgical History Hx of colonoscopy Hx of tubal ligation H/O varicose vein stripping History of cataract surgery H/O lumpectomy Hx of cholecystectomy History of back surgery History of Problems with Anesthesia: No Social History Social History Household Members: Spouse and Children Housing: Apartment Are you a primary lawn care specialist to a significant other at home: No Do you presently have visiting nurse or other home services: Yes (PERIODONTAL ASSISTANT 30 hours/bi-weekly) Alcohol intake: never Comment: pt reports this is her baseline pain Patient Tobacco Use Status: Never used Tobacco e-Cigarette/Vaping Use: Never Used Second Hand Smoke Exposure: No service: No Current occupational status: retired Cognitive needs: No Hearing needs: No Vision needs: Yes (Glasses) Meds Allergies Allergy/AdvReac Type Severity Reaction Status Date / Time Penicillins [PENICILLINS] Allergy Intermediate rash Verified 03/13/24 06:29 senna Allergy Intermediate rash Verified 03/13/24 06:29 Home Medications ?Medication ?Instructions ?Recorded ?Confirmed ?Last Taken ?Type multivitamin 1 tab PO DAILY 11/15/20 03/13/24 03/12/24 History calcitriol 0.5 mcg capsule 1 mcg PO .COMPLEX 01/10/23 03/13/24 03/12/24 History Exam Height,Weight and Vital Signs: Height 5 ft 10 in Weight 105.1 kg Last Vital Signs Pulse 69 02/28/24 10:28 Resp 16 02/28/24 10:28 BP 123/59 L 02/28/24 10:28 Pulse Ox 99 02/28/24 10:28 O2 Del Method Room Air 02/28/24 10:28 Pertinent Lab Results Pertinent Lab Results: Lab Results 02/28/24 Range/Units 11:35 Blood Type O Negative Antibody Screen NEGATIVE Laboratory Tests 02/15/24 14:08 WBC 5.4 Hgb 11.7 L Hct 37.1 Plt Count 215 Sodium 140 Potassium 5.1 Chloride 106 Carbon Dioxide 27 BUN 28 H Creatinine 1.33 Narrative Narrative: EKG 02/2024 Vent. Rate : 050 BPM Atrial Rate : 050 BPM P-R Int : 182 ms QRS Dur : 106 ms QT Int : 434 ms P-R-T Axes : 074 -16 065 degrees QTc Int : 395 ms Sinus bradycardia Minimal voltage criteria for LVH, may be normal variant ( [place] product ) Borderline ECG When compared with ECG of 24-MAY-2017 18:17, QT has shortened Airway Mallampati Class: II TM Dist: >3cm Neck ROM: Full Partial: Upper and Lower Heart: RRR Lungs: CTAB Assessment and Plan Assessment Anesthesia Assessment: Anesthesia Plan Discussed and PAT Visit Final Anesthetic Review Family History of Problems with Anesthesia: No (Son vomits) History of Problems with Anesthesia: No Documented by User: Gisselle Avelar MD 03/13/24 08:55 [facility] Active Problems Active Problems: All Active Problems Mediastinal mass (Acute) Lumbar radiculopathy (Acute) Mediastinal mass (Acute) Chronic pain syndrome (Acute) Chronic idiopathic constipation (Acute) Achalasia (Acute) Tinnitus, bilateral (Acute) Cervical cancer screening (Acute) Fibromyalgia (Acute) Low back pain (Acute) Urinary incontinence (Acute) Dysphagia (Acute) Thrombophlebitis of right leg (Acute) Low back pain with right-sided sciatica (Acute) Trochanteric bursitis, right hip (Acute) Primary osteoarthritis of right knee (Acute) Sjogrens syndrome (Acute) Osteoarthritis of right knee (Acute) BPV (benign positional vertigo) (Acute) Gait instability (Acute) Cervicogenic headache (Acute) Cervicalgia (Acute) Vertigo (Acute) Raynauds disease (Acute) Chronic kidney disease, stage III (moderate) (Acute) Obesity (BMI 30-39.9) (Acute) Benign essential hypertension (Acute) GERD without esophagitis (Acute) Acquired hypothyroidism (Acute) Lumbar spondylosis (Acute) Post laminectomy syndrome (Acute) PAC (premature atrial contraction) (Acute) Change in voice Denies SOB, orthopnea, ALYSA, wheezing Past Medical History Medical History Ambulates with cane Osteoarthritis Difficulty swallowing Balance problem Osteoarthritis of right knee BPV (benign positional vertigo) Gait instability Cervicogenic headache Cervicalgia Vertigo Chronic kidney disease, stage III (moderate) Obesity (BMI 30-39.9) Gastritis Benign essential hypertension GERD without esophagitis Acquired hypothyroidism Constipation Lumbar spondylosis Post laminectomy syndrome Connective tissue disease CKD (chronic kidney disease) Interstitial lung disease Osteopenia COVID-19 vaccine series completed PAC (premature atrial contraction) Sjogrens syndrome Hypothyroid Breast cancer Osteoarthritis Raynauds disease SAMARA positive Family History Family History Father Emphysema of lung Cancer Brother Emphysema of lung Mother Bone cancer Son PONV (postoperative nausea and vomiting) Other Arthritis Family history of problems with anesthesia: No Surgical History Surgical History Hx of colonoscopy Hx of tubal ligation H/O varicose vein stripping History of cataract surgery H/O lumpectomy Hx of cholecystectomy History of back surgery History of Problems with Anesthesia: No Social History Social History Household Members: Spouse and Children Housing: Apartment Are you a primary lawn care specialist to a significant other at home: No Do you presently have visiting nurse or other home services: Yes (PERIODONTAL ASSISTANT 30 hours/bi-weekly) Alcohol intake: never Comment: pt reports this is her baseline pain Patient Tobacco Use Status: Never used Tobacco e-Cigarette/Vaping Use: Never Used Second Hand Smoke Exposure: No service: No Current occupational status: retired Cognitive needs: No Hearing needs: No Vision needs: Yes (Glasses) Meds Allergies Allergy/AdvReac Type Severity Reaction Status Date / Time Penicillins [PENICILLINS] Allergy Intermediate rash Verified 03/13/24 06:29 senna Allergy Intermediate rash Verified 03/13/24 06:29 Home Medications ?Medication ?Instructions ?Recorded ?Confirmed ?Last Taken ?Type multivitamin 1 tab PO DAILY 11/15/20 03/13/24 03/12/24 History calcitriol 0.5 mcg capsule 1 mcg PO .COMPLEX 0903/13/24 03/12/24 History Exam Height,Weight and Vital Signs: Height 5 ft 10 in Weight 105.1 kg Last Vital Signs Pulse 69 02/28/24 10:28 Resp 16 02/28/24 10:28 BP 123/59 L 02/28/24 10:28 Pulse Ox 99 02/28/24 10:28 O2 Del Method Room Air 02/28/24 10:28 Vital Signs Temp Pulse Resp BP Pulse Ox O2 Del Method 03/13/24 06:42 98.3 F 70 16 148/74 H 98 Room Air Pertinent Lab Results Pertinent Lab Results: Lab Results 02/28/24 Range/Units 11:35 Blood Type O Negative Antibody Screen NEGATIVE Laboratory Tests 02/15/24 14:08 WBC 5.4 Hgb 11.7 L Hct 37.1 Plt Count 215 Sodium 140 Potassium 5.1 Chloride 106 Carbon Dioxide 27 BUN 28 H Creatinine 1.33 Lab Results 02/28/24 Range/Units 11:35 Blood Type O Negative Antibody Screen NEGATIVE Crossmatch See Detail Airway Mallampati Class: II TM Dist: >3cm Neck ROM: Full Partial: Upper and Lower Loose/Missing/Broken Teeth: Yes (Partials top and bottom. Denies broken or loose teeth) Heart: RRR Lungs: CTAB Assessment and Plan Assessment Anesthesia Assessment: Anesthesia Plan Discussed, PAT Visit and Chart Reviewed Final Anesthetic Review Family History of Problems with Anesthesia: No History of Problems with Anesthesia: No NPO: Yes ASA Class: III Final Preanesthetic Review: No Changes in Pt Med Stat, Meds/Allgs Chart Reviewed, Consent Obtained/Reviewed and Anes Risks/Benef Reviewed Patient Risk: Intermediate Procedure Risk: Intermediate Assessment/Block/Sedation in SS: Assess/Block/Sedation- Anesthetic Plan Anesthetic Plan: GA and Other (arterial line) Disposition: Standard PACU
--- NOTE | 2024-03-12 08:23 | MHC.SHP ---
Pre-Procedural Eval Section A - 24 Hr Update-Section A only Date of Service: 03/13/24 The patient is an INPATIENT: Yes Changes since office visit: No Cold of Flu in the past 2 weeks, No New Medical Problems, No Changes in Medication and No Patient answered all questions Section B - Complete if H&P > 30 days Chief Complaint: Other diseases of mediastinum, Allergies: Allergies Allergy/AdvReac Type Severity Reaction Status Date / Time Penicillins [PENICILLINS] Allergy Intermediate rash Verified 03/05/24 09:40 senna Allergy Intermediate rash Verified 03/05/24 09:40 Review of Systems Sugical H&P ROS: Negative: Constitution, Cardiovascular, Respiratory, Neurological, Psychiatric, Hem-Onc, Allergic/Immunologic, Gastrointestinal, Genitourinary, Musculoskeletal, Integumentary, Endocrine and Eyes/Ears/Nose/Throat Exam Surgical H&P Exam: Normal: HEENT, Normal: Heart, Normal: Lungs, Normal: Extremities, Normal: Abdomen, Normal: Skin and Normal: Neurological Plan I have reviewed the history and physical and performed a pertinent physical examination on my patient. No changes have occurred unless specified. Time Spent With Patient Time: Total time managing care of this patient today ____ minutes.
[2024-03-13] VITALS (17 sets, daily range): BP systolic 136–170; BP diastolic 51–76; PULSE 48–70; RESP 12–18; TEMP 36.1–37.1; O2SAT 97–99; BMI 33.1; BMI 36.3
--- NOTE | ~2024-03-13 | XR_ITS ---
EXAMINATION: XR CHEST CLINICAL INFORMATION: s/p left VATS COMPARISON: X-ray dated March 13, 2024. TECHNIQUE: Frontal view of the chest was obtained. FINDINGS: Meniscal shaped opacity left lower hemithorax. Linear opacity right lower hemithorax. Left-sided chest tube remains in the medial upper left hemithorax. No gross pneumothorax. Bilateral pulmonary reticular pattern. Cardiomediastinal silhouette is normal in size with a round apex. Calcified plaque aortic arch. Multilevel thoracic spondylosis. XR/XR chest 1V IMPRESSION: Increased left-sided pleural effusion, moderate volume. No gross pneumothorax. Electronically signed by: Peña Reis MD 03/14/2024 08:12 AM EST
--- NOTE | ~2024-03-13 | XR_ITS ---
EXAMINATION: XR CHEST PORTABLE X2 CLINICAL INFORMATION: Status post thymectomy. Left chest tube COMPARISON: Previous days exam. TECHNIQUE: 2 portable views at 11:16 AM and 5:55 AM FINDINGS: Sequential radiographs demonstrate initially the left apical directed chest tube in place and a moderate to large left-sided pleural effusion. No gross pneumothorax. Subsequent exam demonstrates decreasing now moderate to large left-sided pleural effusion and removal of the chest tube. There appears to be a left apical 03 small pneumothorax. Right lung clear. No other change. XR/XR chest 1V IMPRESSION: Moderate to large left-sided pleural effusion status post chest tube removal. Small left apical pneumothorax. Reading called at approximately 1:09 PM on the date of exam. Electronically signed by: Jerry Vital MD 03/15/2024 01:09 PM [facility]
--- NOTE | ~2024-03-13 | XR_ITS ---
EXAMINATION: XR CHEST PORTABLE X2 CLINICAL INFORMATION: Status post thymectomy. Left chest tube COMPARISON: Previous days exam. TECHNIQUE: 2 portable views at 11:16 AM and 5:55 AM FINDINGS: Sequential radiographs demonstrate initially the left apical directed chest tube in place and a moderate to large left-sided pleural effusion. No gross pneumothorax. Subsequent exam demonstrates decreasing now moderate to large left-sided pleural effusion and removal of the chest tube. There appears to be a left apical 03 small pneumothorax. Right lung clear. No other change. XR/XR chest 1V IMPRESSION: Moderate to large left-sided pleural effusion status post chest tube removal. Small left apical pneumothorax. Reading called at approximately 1:09 PM on the date of exam. Electronically signed by: Jerry Vital MD 03/15/2024 01:09 PM [facility]
--- NOTE | ~2024-03-13 | XR_ITS ---
EXAMINATION: XR CHEST CLINICAL INFORMATION: Status post vats thymectomy COMPARISON: X-ray dated May 24, 2017. Correlated to CT chest dated January 28, 2024. TECHNIQUE: Frontal view of the chest was obtained. FINDINGS: Left-sided chest tube tip ends in the upper medial left hemithorax. No gross pneumothorax. Linear opacity left lower hemithorax. Cardiomediastinal silhouette is normal in size. XR/XR chest 1V IMPRESSION: Left-sided chest tube placement at the upper medial left hemithorax without gross pneumothorax. Electronically signed by: Peña Reis MD 03/13/2024 11:48 AM EST
[2024-03-13] MEDS: Lactated Ringers 1,000 ML 100 ML IVCONT (06:44)
--- NOTE | 2024-03-13 10:37 | P.OP_ITS ---
Operative Note Operative Note Date of Service: 03/13/24 Narrative: Preoperative diagnosis: [] Anterior mediastinal mass/question thymoma Postop diagnosis: [] The same Procedure [] vats anterior mediastinal mass excision/thymectomy, bronchoscopy, pneumonolysis, intercostal nerve block with Exparel Surgeon: [] [employer] Representative: [] Eliana Banks Type of Anesthesia: [] Double-lumen general Indication for surgery: [] Anterior mediastinal cystic mass measuring roughly 2.5 cm in maximum diameter of ill-defined etiology. Bronchoscopy demonstrated no gross endoluminal pathology and was also used to assist anesthesia and placement of the double-lumen tube. Patient had an isolated anterior mediastinal mass/cyst type process along with significant hyperplasia of the thymic gland/thymic fat. All was excised and sent to pathology for permanent specimen . Adhesions of the left lung to the anterior mediastinum necessitated pneumonolysis to allow access to the upper mediastinum. Findings: [] Patient brought to the operating room, placed on operative table supine position, after an adequate level of double-lumen in greasy was induced, patient underwent bronchoscopy with findings as noted above. Patient was appropriately positioned with a left-sided shoulder roll, left arm position above the patient and secured and the left chest and abdomen were prepped and draped in usual sterile fashion. Commencing with an anterior left axillary line 6th intercostal space , 10 port placed under direct vision, posterior axillary line 4th interspace and subxiphoid working ports were placed under direct vision. Low-level CO2 insufflation was then undertaken. Findings were as noted above. Left upper lobe lung adhesions to the mediastinum were taken down using ligature device to allow access to the upper mediastinum. Dissection commenced along the left side where the left phrenic nerve was identified and the pleura entered and extended in the cephalad manner well away from the left phrenic nerve up to the substernal area. Neck substernal pleural plane was developed across to the right side. Mediastinal fat/thymic mass was sequentially taken off the pericardium using ligature. Next the right and left superior horns were swept into the field and taken down using ligature device. Several tributaries of the thymic mass to the left innominate vein were identified, clipped proximally x2, and transected using ligature. The mass /thymic process was then dissected free and sent to pathology for permanent specimen after being placed in the retrieval bag and removed. . Anterior mediastinal fat/thymic residual tissue was also excised from the anterior pe ricardium and sent to pathology in similar manner. Right phrenic nerve did not into the surgical field. At Completion of the procedure, chest cavity was irrigated and secured hemostasis. Through the camera port, 24 Greek straight chest tube was placed under direct vision and secured to the skin using 0 silk suture. Remaining ports were closed in the following manner; subxiphoid wound had its fascia reapproximated using [id number] 0 Vicryl suture. Working ports were then closed using deep followed by dermal interrupted 2-0 and 3-0 Vicryl sutures respectively. Chest tube was connected to Pleur-evac and lung re-expanded with no significant air leak appreciated. Steri-Strips and sterile dressings were applied. Intercostal nerve block at each working/port site was performed using Exparel. Sponge, needle, and instrument counts were reported correct. Patient tolerated the procedure well and emerged from anesthesia stable condition. EBL minimal
[2024-03-13] MEDS: HYDROmorphone HCl 0.5 MG/0.5 ML SYRINGE 0.25 MG IVPUSH ×4 (10:45→11:40)
--- NOTE | 2024-03-13 12:21 | PHA.MEDREC ---
Pharmacy Consult ? Medication Reconciliation Pharmacy has reviewed the medication reconciliation completed by nursing.
[2024-03-13] MEDS: Lactated Ringers 1,000 ML 50 ML IVCONT (13:21)
--- NOTE | 2024-03-13 13:56 | HO.PM.IMCN ---
History of Present Illness Data of Consult Service Date: 03/13/24 Requesting physician: Carlos Enrique Membreno Primary Care Provider: Truong Colon MD HPI Reason for consult: medical consult Patient is an 78 year old female with a past medical history significant for GERD, stage IIIB CKD followed by Nephrology, OA, ? Sjogren's, stable PACs followed by Cardiology, breast cancer status post lumpectomy and radiation in 2013, hypothyroidism and hypertension, status post left VATS anterior mediastinal mass excision and thymectomy, bronchoscopy, pneumolysis with intercostal nerve block today. She is having some chest pain but not worsened since arriving to the floor. No shortness of breath, abdominal pain, nausea or vomiting. No urine output yet. Review of Systems Constitutional: Constitutional: Denies chills, Denies fatigue, Denies fever(s) and Denies headache(s) Eyes: Eyes: Denies change in vision ENT: Denies headache(s), Denies nasal congestion, Denies nasal discharge and Denies sore throat Cardiovascular: Cardiovascular: Reports chest pain (post-op), Denies rapid heart rate and Denies dyspnea Respiratory: Respiratory: Denies dyspnea and Denies wheezing Gastrointestinal: Gastrointestinal: Denies diarrhea, Denies nausea and Denies vomiting Integumentary/Breasts: Skin/Breast: Denies rash Neurologic: Denies confusion and Denies headache(s) Psychiatric: Psychiatric: Denies confusion Endocrine: Endocrine: Denies fatigue Allergic/Immunologic: Allergic/Immunologic: Denies wheezing [facility] Medical History Ambulates with cane Osteoarthritis Difficulty swallowing Balance problem Osteoarthritis of right knee BPV (benign positional vertigo) Gait instability Cervicogenic headache Cervicalgia Vertigo Chronic kidney disease, stage III (moderate) Obesity (BMI 30-39.9) Gastritis Benign essential hypertension GERD without esophagitis Acquired hypothyroidism Constipation Lumbar spondylosis Post laminectomy syndrome Connective tissue disease CKD (chronic kidney disease) Interstitial lung disease Osteopenia COVID-19 vaccine series completed PAC (premature atrial contraction) Sjogrens syndrome Hypothyroid Breast cancer Osteoarthritis Raynauds disease SAMARA positive Family History Father Emphysema of lung Cancer Brother Emphysema of lung Mother Bone cancer Son PONV (postoperative nausea and vomiting) Other Arthritis Surgical History Hx of colonoscopy Hx of tubal ligation H/O varicose vein stripping History of cataract surgery H/O lumpectomy Hx of cholecystectomy History of back surgery Social History Household Members: Significant Other and Children Housing: Apartment Are you a primary child care team lead to a significant other at home: No Do you presently have visiting nurse or other home services: No Alcohol intake: never Comment: pt reports this is her baseline pain Patient Tobacco Use Status: Never used Tobacco Smoked in Last 30 Days: No e-Cigarette/Vaping Use: Never Used Patient Interested in Nicotine Replacement: No Patient Given Instructions on How to Stop Smoking: No Second Hand Smoke Exposure: No Use of substances other than those prescribed or required for medical reasons: No Currently Displaying Signs/Symptoms of Drug Intoxication Withdrawal: No Any prior treatment program specific to substance use: No Have you been hit, kicked, punched, or otherwise hurt by someone within the past year? If so, by whom?: No Do you feel safe in your current relationship?: Yes Is there a partner from a previous relationship who is making you feel unsafe now?: No Are you made to feel afraid or neglected: No Are you DNR?: No Advance Directives: No Advance Directives Information Provided: Yes Advance Directives on File: No Do you have a plan to hurt others: No Plan Recently lost weight without trying: No Eating poorly because of decreased appetite: No Nutrition Risks: No Nutritional Risk Patient : No : No Poor oral hygiene: No service: No Current occupational status: retired Cognitive needs: No Hearing needs: No Vision needs: Yes (Glasses) Meds Allergies Allergy/AdvReac Type Severity Reaction Status Date / Time Penicillins [PENICILLINS] Allergy Intermediate rash Verified 03/13/24 06:29 senna Allergy Intermediate rash Verified 03/13/24 06:29 Active Medications: Current Medications Amlodipine Besylate (Amlodipine Besylate 10 Mg Tablet) 10 mg PO DAILY MARYA; Protocol Calcium Carbonate (Calcium Carbonate 750 Mg Tab.Chew) 750 mg PO Q4H PRN PRN Reason: Heartburn Carvedilol (Carvedilol 12.5 Mg Tablet) 12.5 mg PO BID MARYA; Protocol Docusate Sodium (Docusate Sodium 100 Mg Capsule) 100 mg PO BID [facility] Hydromorphone HCl (Hydromorphone Hcl 0.5 Mg/0.5 Ml Syringe) 0.5 mg IVPUSH Q4H PRN; Protocol PRN Reason: Pain, Severe (Pain Scale 7-10) Acetaminophen (Ofirmev) 1,000 mg in 100 mls @ 400 mls/hr IV Q6H [facility] Lactated Ringer's (Lr) 1,000 mls @ 50 mls/hr IVCONT .Q20H [facility] Last Admin: 03/13/24 13:21 Dose: 50 mls/hr Levothyroxine Sodium (Levothyroxine Sodium 125 Mcg Tablet) 125 mcg PO DAILY@0600 [facility] Magnesium Hydroxide (Milk Of Magnesia 30 Ml Oral.Susp) 30 ml PO DAILY PRN PRN Reason: Constipation Melatonin (Melatonin 3 Mg Tablet) 6 mg PO BEDTIME PRN PRN Reason: Insomnia Omeprazole (Omeprazole 40 Mg Capsule.Dr) 40 mg PO DAILY@0630 [facility] Ondansetron HCl (Ondansetron Hcl 4 Mg/2 Ml Vial) 4 mg IVPUSH Q6H PRN PRN Reason: Nausea and Vomiting Oxycodone HCl (Oxycodone Hcl Immed Release 5 Mg Tablet) 5 mg PO Q4H PRN PRN Reason: Pain, Moderate(Pain Scale 4-6) Pregabalin (Pregabalin 50 Mg Capsule) 50 mg PO BEDTIME [facility] Sodium Chloride (0.9 % Sodium Chloride Flush 3 Ml Syringe) 3 ml IVFLUSH QSHIFT [facility] Home Medications ?Medication ?Instructions ?Recorded ?Confirmed ?Last Taken ?Type multivitamin 1 tab PO DAILY 11/15/20 03/13/24 03/12/24 History calcitriol 0.5 mcg capsule 1 mcg PO WE@1645 01/10/23 03/13/24 03/12/24 History levothyroxine 125 mcg tablet 125 mcg PO DAILY@0600 03/13/24 03/13/24 03/13/24 History omeprazole 40 mg capsule,delayed 40 mg PO DAILY@0630 03/13/24 03/13/24 03/13/24 History release Physical Exam Vital Signs and Narrative: Vital Signs: Last Vital Signs Temp 97.2 F 03/13/24 13:30 Pulse 53 03/13/24 13:30 Resp 18 03/13/24 13:30 BP 170/76 H 03/13/24 13:30 Pulse Ox 99 03/13/24 13:30 O2 Del Method Nasal Cannula 03/13/24 13:30 O2 Flow Rate 2.0 03/13/24 13:30 BMI result Body Mass Index 36.3 General: AOx3, no acute distress Resp: CTA bilaterally, exam limited due to pain with inspiration CVS: S1, S2, RRR GI: +BS, NT, no distention Skin: Warm, dry Extremities: No edema, pneumoboots on Psych: Appropriate affect Const: General: No confusion Orientation/consciousness: No confusion Neuro: General: No confusion Results Labs Labs: Laboratory Results - last 24 hr 02/28/24 11:35 Blood Type O Negative Antibody Screen NEGATIVE Crossmatch See Detail Imaging Radiologist's Impressions: Impressions Chest X-Ray 03/13/24 11:00 IMPRESSION: Left-sided chest tube placement at the upper medial left hemithorax without gross pneumothorax. Electronically signed by: Peña Reis MD 03/13/2024 11:48 AM [facility] Assessment and Plan (1) S/P thymectomy: Status: Acute Plan Patient is an 78 year old female with a past medical history significant for GERD, stage IIIB CKD followed by Nephrology, OA, ? Sjogren's, stable PACs followed by Cardiology, breast cancer status post lumpectomy and radiation in 2013, hypothyroidism and hypertension, status post left VATS anterior mediastinal mass excision and thymectomy, bronchoscopy, pneumolysis with intercostal nerve block today. s/p left VATS anterior mediastinal mass excision and thymectomy, bronchoscopy, pneumolysis - plan per surgery GERD - continue omeprazole Stage III CKD - followed by nephro, no acute MASHA hypothyroid - continue levothyroxine HTN - continue home meds: amlodipine, carvidelol full code VTE prophy: pneumoboots Thank you for allowing me to participate in the pt's care. Please contact the medical team if any questions or concerns.
--- NOTE | 2024-03-13 14:14 | PC.NURSE ---
Admission completed with Law from deaf interpreter services
[2024-03-13] MEDS: HYDROmorphone HCl 0.5 MG/0.5 ML SYRINGE IVPUSH (16:54)
[2024-03-13] MEDS: oxyCODONE HCl Immed Release 5 MG TABLET PO (19:57)
[2024-03-13] MEDS: Docusate Sodium 100 MG CAPSULE PO (21:42)
[2024-03-13] MEDS: Pregabalin 50 MG CAPSULE PO (21:42)
[2024-03-13] MEDS: carvediloL 12.5 MG TABLET PO (21:42)
[2024-03-13] MEDS: Acetaminophen 1,000 MG/100 ML PIGGYBACK 400 MG IV (21:43)
[2024-03-13] MEDS: Melatonin 3 MG TABLET 6 MG PO (21:43)
[2024-03-14 04:00] VITALS: BP 153/67; PULSE 55; RESP 16; TEMP 36.8; O2SAT 98
[2024-03-14] MEDS: Acetaminophen 1,000 MG/100 ML PIGGYBACK 400 MG IV ×4 (04:25→22:10)
[2024-03-14] MEDS: Levothyroxine Sodium 125 MCG TABLET PO (06:04)
[2024-03-14] MEDS: Omeprazole 40 MG CAPSULE.DR PO (06:04)
[2024-03-14 06:45] LABS: MANUAL DIFF FLAG NO
[2024-03-14 06:58] LABS: Anion Gap 13 (12-20); Blood Urea Nitrogen 14 mg/dL (9-16); Calcium 8.7 mg/dL (8.4-10.2); Carbon Dioxide 24 mmol/L (22-29); Chloride 106 mmol/L (96-108); Creatinine Clr Calc Pharmacy 67.7; Estimated Glomerular Filt Rate 59; Glucose Fasting 88 mg/dL (60-99); Potassium 4.1 mmol/L (3.3-5.1); Sodium 139 mmol/L (135-145)
[2024-03-14] MEDS: Docusate Sodium 100 MG CAPSULE PO ×2 (07:00→21:07)
[2024-03-14] MEDS: oxyCODONE HCl Immed Release 5 MG TABLET PO ×4 (07:00→22:17)
[2024-03-14] MEDS: amLODIPine Besylate 10 MG TABLET PO (07:01)
[2024-03-14] MEDS: carvediloL 12.5 MG TABLET PO ×2 (07:01→21:07)
[2024-03-14] MEDS: Lactated Ringers 1,000 ML 50 ML IVCONT (07:03)
[2024-03-14 07:07] LABS: Basophils Percent Auto 0.2 % (0-2); Eosinophils Absolute Auto 0.1 X10*3/uL (0.0-0.4); Eosinophils Percent Auto 1.1 % (0-4); Hematocrit 32.6 % (37.0-47.0); Hemoglobin 10.2 g/dl (12.0-16.0); Imm Gran Abs Auto 0.02 X10*3/uL (0.00-0.03); Imm Gran Pct Auto 0.4 % (0.0-0.4); Lymphocytes Percent Auto 19.2 % (20-40); Mean Corpuscular HGB Conc 31.3 g/dl (31.0-35.0); Mean Corpuscular Hemoglobin 28.3 pg (27.0-33.0); Mean Corpuscular Volume 90.3 fL (80.0-98.0); Mean Platelet Volume 11.3 fL (9.4-12.3); Monocytes Absolute Auto 0.6 X10*3/uL (0.1-1.2); Monocytes Percent Auto 10.5 % (2-11); Neutrophils Absolute Auto 3.6 x10*3/uL (2.0-8.3); Neutrophils Percent Auto 68.6 % (45-73); Platelet Count 156 X10*3/uL (160-400); Red Blood Count 3.61 X10*6/uL (4.20-5.50); Red Cell Distribution Width 14.6 % (11.0-16.0); White Blood Count 5.3 X10*3/uL (4.8-10.8)
[2024-03-14 07:30] VITALS: BP 167/77; PULSE 67; RESP 16; TEMP 36.4; O2SAT 97
[2024-03-14] MEDS: HYDROmorphone HCl 0.5 MG/0.5 ML SYRINGE IVPUSH ×2 (08:22→16:08)
--- NOTE | 2024-03-14 10:20 | PM.PNTS ---
Subjective Subjective Date of Service: 03/14/24 Interval history: Some mild incisional discomfort. OOB and ambulating to bathroom. Tolerating solid diet. Physical Exam Vital Signs: Vital Signs: Last Vital Signs Temp 97.6 F 03/14/24 07:30 Pulse 67 03/14/24 07:30 Resp 16 03/14/24 07:30 BP 167/77 H 03/14/24 07:30 Pulse Ox 97 03/14/24 07:30 O2 Del Method Nasal Cannula 03/14/24 07:30 O2 Flow Rate 2.0 03/14/24 07:30 BMI result Body Mass Index 36.3 Const: General: comfortable, no acute distress and alert Orientation/consciousness: patient oriented x3 Chest: Other: left chest tube in place, some serosanguineous output in pleurvac, small air leak VATS dressings intact Resp: Effort & Inspection: normal respiratory effort, able to speak in complete sentences, no respiratory distress and no use of accessory muscles Skin: General skin exam: no rashes or lesions noted Neuro: General: patient oriented x3 and moves all extremities Procedures Date of Service Date of Service: 03/14/24 Progress Note: A&P Assessment and plan (1) S/P thymectomy: Status: Acute (2) Mediastinal mass: Status: Acute Plan POD #1 s/p vats anterior mediastinal mass excision/thymectomy, bronchoscopy, pneumonolysis, intercostal nerve block with Exparel. Doing well post op. Hemodynamically stable. Dressings clean and intact, chest tube with some serosanguineous output and small air leak. CXR this am- no pneumo, small amt of fluid. Cont chest tube to water seal. Hopefully remove tomorrow. Increase ambulation. Time Spent With Patient Time: Total time managing care of this patient today ____ minutes. Quality Stroke Does the patient have a stroke diagnosis?: No VTE Prior VTE?: No VTE Risk Level:: Surgical - low VTE Device Contraindication: N/A - Device Ordered VTE Drug Contraindication: Treatment Not Indicated
--- NOTE | 2024-03-14 13:46 | HO.POSTANES ---
Post Anesthesia Evaluation Post Anesthesia Evaluation Date of Service: 03/13/24 Vital Signs: Vital Signs Temp Pulse Resp BP Pulse Ox O2 Del Method O2 Flow Rate 03/14/24 07:30 97.6 F 67 16 167/77 H 97 Nasal Cannula 2.0 03/14/24 04:00 98.2 F 55 16 153/67 H 98 Nasal Cannula 2 Anesthesia: General Endotracheal-GETA Mental Status: Awake Pain Control: Satisfactory Nausea/Vomiting: None Hydration: Adequate Anesthesia-Related Issues: No Anes. Related Issues
--- NOTE | 2024-03-14 14:15 | MHC.CM.PN ---
CM ASSESSMENT COMPLETED W/ [employer] INSURANCE CLAIM EXAMINER. IMM DELIVERED. PATIENT LIVES IN AN APARTMENT W/ AND SON. AMBULATES W/ A CANE. HAS A DAILY INDUSTRIAL ENG TO ASSIST W/ ADL'S. PCP ABRAN GALICIA MD NO HCP. CM PROVIDED EDUCATION AND OFFERED ASSISTANCE. PATIENT DECLINED. DP: PER , LIKELY DC TOMORROW W/ NEW [facility] FOR EVERY OTHER DAY DRESSING CHANGES POST CHEST TUBE REMOVAL. FAMILY TRANSPORT. CM WILL CONTINUE TO FOLLOW.
--- OUTSIDE RECORDS SUMMARY | 2024-03-14 14:42 | XMS_ITS ---
Author Organization [facility] Address [address] [address] Care Team Providers Care Media Buyer Name Role Phone Isaiah DURAN, [place] Primary Care Provider Boby Laguerre Unavailable [phone] Allergies Allergen (clinical drug ingredient) Drug/Non Drug Allergy documented on EMR Reaction Allergy Type Onset Date Status sennosides, ALF Senna rash and machado Drug Allergy Active Penicillin rash Drug Allergy Active REASON FOR VISIT At Risk Footcare, Painful Nail(s) aggravated by shoes and causing difficulty standing/walking., Wart(s), Skin problem(s) Medications Medication SIG (Take, Route, Frequency, Duration) Notes Start Date End Date Status Triamcinolone Acetonide Not-Taking Sulfamethoxazole-TMP DS Not-Taking Silver sulfADIAZINE Not-Taking Propranolol HCl ER N ot-Taking ProAir HFA Not-Takin g Lisinopril Not-Takin g Lidocaine Not-Taking Fluticasone Propionate Not-Taking Flovent HFA Not-Taki ng Ibuprofen Not-Taking Azithromycin Not-Cruz ing traMADol HCl Not-Cruz ing Losartan Potassium N ot-Taking [facility] Gentle Laxative Not-Taking [facility]S Calcium Not-Taki ng Ammonium Lactate 12 % 1 application Externally Twice a day for 30 days Active Orthopedic Extra Depth Shoes With Custom Heat Molded Multidensity Innersoles 1 Pair shoes with 3 Pair custom heat molded innersoles Wear Daily for 365 days 01/25/2023 Active Tamoxifen Citrate No t-Taking Omeprazole 20 MG 1 tablet Orally Once a day Active Mapap Not-Taking Ammonium Lactate 12 % 1 application to affected area Externally Twice a day to dry areas of skin on feet except between toes for 30 days 01/24/2024 Active hydroCHLOROthiazide Active Folic Acid Not-Takin g Docusate Sodium Acti ve Levothyroxine Sodium Not-Taking Carvedilol Active Calcitriol 0.5 MCG 1 capsule Orally Once a day Active Bisacodyl Active Aspirin 81 MG 1 tablet Orally Once a day Not-Taking amLODIPine Besylate Active zzzCompression Stockings 20-30mm Hg . . . for . Active Social History Tobacco Use: Social History Observation Description Date Details (start date - stop date) Never Smoker NA - NA Tobacco Use/Smoking Question Answer Notes Are you a: nonsmoker Additional Findings: Tobacco Non-User Current no n-smoker Alcohol Screen Question Answer Notes Did you have a drink containing alcohol in the p ast year? No Points 0 Interpretation Negative Tobacco use other than smoking: Question Answer Notes Are you an other tobacco user? No Procedures Procedure Date Ordered Date Performed Result Body Sit e 89199-DAOQAZC NAIL, 6 OR MORE 01/24/2024 N/A 06229-Ldgk Destruction, 1-14 01/24/2024 N/A 89733-JXVL SKIN LESIONS, OVER 4 01/24/2024 N/A Encounters Encounter Location Date Provider Diagnosis [facility] [address] [address] 01/24/2024 Boby Chapman Atherosclerosis of [place] artery of both lower extremities, with unspecified presence of clinical manifestation I70.203 ; Plantar wart B07.0 ; Tinea unguium B35.1 ; Pain in right toe(s) M79.674 ; Pain in left toe(s) M79.675 ; Left foot pain M79.672 and Xerosis of skin L85.3 Assessments Encounter Date Diagnosis (ICD Code) Assessment Notes Treat ment Notes Treatment Clinical Notes 01/24/2024 Atherosclerosis of [place] artery of both lower extremities, with unspecified presence of clinical manifestation (ICD-10 - I70.203) 01/24/2024 Plantar wart (ICD-10 - B07.0) 01/24/2024 Tinea unguium (ICD-1 0 - B35.1) 01/24/2024 Pain in right toe(s) (ICD-10 - M79.674) 01/24/2024 Pain in left toe(s) (ICD-10 - M79.675) 01/24/2024 Left foot pain (ICD- 10 - M79.672) 01/24/2024 Xerosis of skin (ICD-10 - L85.3) Plan Of Treatment Medication Medication Name Sig Start Date Stop Date Notes Ammonium Lactate 12 % 1 application to a ffected area Externally Twice a day to dry areas of skin on feet except between toes for 30 days 01/24/2024 Pending Test Test Name Order Date 09635-[id number] NAIL, 6 OR MORE 01/24/2024 09709-Rkqy Destruction, 1-14 01/24/2024 49055-EWXZ SKIN LESIONS, OVER 4 01/24/20 24 Next Appt Details Follow Up: 2 Months, Reason: Provider Name:Boby Chapman , 05/05/2024 01:45:00 PM, [address], [address], [place], [address], Procedure Notes * Category Sub-Category Detail Notes Wart Treatment Procedure Verrucae were de brided to pin-point bleeding margins with sterile 15 surgical blade, silver nitrate chemocautery applied, recomm. immune-boosting meds such as zinc, recomm. follow up with topical chemosurgical agents, Pt defers any other forms of tx - 68554 Debride Nail 6-10 Nail debridement Performance o f this nail treatment by a nonprofessional would put this patients foot and overall health at risk. Therefore, nail debridement was performed extensively to reduce/remove overall nail length, girth, thickness, subungual debris, and necrotic tissue, by manual and/or electrical means through the use of a nail nipper and/or dremel-type stand grinder, to a more viable healthy nail plate or bed tissue 6-10. Silver nitrate used for any petechial bleeding as necessary. Definitive antifungal treatment options have been reviewed and discussed with the patient. The patient chooses, no pharmaceutical tx - 84956 Keratoma Treatment Parring or Cutting o f Benign Hyperkeratotic Lesion(s) (-57) More than 4 Lesions - The Benign hyperkeratotic lesions, as described above were pared, and/or cut utilizing a sterile 15 blade, tissue nippers, and/or dremel - 38306 , Q8 Progress Notes * Tommie BLANCASOB:[birth year] (78 yo F)Acc No.[id number]:01/24/2024 Progress Note Patient:?Jacinda Blancsa Provider:?Boby Chapman DPM :1945???Age:78 Y???Sex:Female D ate:01/24/2024 Address:[address] [place] [address], [id number] Pcp:Truong Colon MD Subjective: * Chief Complaints: * ???At Risk FootcarePainful N ail(s) aggravated by shoes and causing difficulty standing/walking.Wart(s)Skin problem(s) * HPI: ???At Risk footcare:?Pt States Last PCP Visit:?Date?10/15/2023 ???Skin problems:?Treatments:?medication ( AM Lactin ).? * ROS:?General/Constitutional:?Nausea?denies.?Vomiting?admits.?Hunger Thirst?admits.?Loss appetite?denies, denies.?Chills?denies, denies.?Fatigue?denies, denies.?Fever?denies, denies.?Night Sweats?admits.?Unexplained weight loss?admits, loss .?Ophthalmologic:?Blurred vision?denies, denies.?Red eye?denies, denies.?HEENTM:?Dentures?denies.?Dizziness?admits.?Glasses/contacts?admits.?Retinopathy?de nies.?Blurred/double vision?admits-double vision.?TMJ?denies.?Discharge/drainage?denies, denies.?Implants?denies. Hard of hearing ?denies.?Difficulty chewing/swallowing/speaking?admits - swallowing.?Nose bleeds?denies.?Sore mouth?denies.?Swollen glands?denies.?Respiratory:?On Oxygen?denies.?Pneumonia/pleurisy?denies, denies.?Bronchitis?denies, denies.?Emphysema?denies, denies.?Coughing?denies.?Cough blood?denies.?Shortness of breath?admits.?Wheezing?denies.?Cardiovascular:?Pacemaker?denies.?MVP?denies.?WPW?denies.?CHF?denies, denies.?Heart attack?denies.?Septal defect?denies.?Rapid beat?denies.?Chest pain ?denies.?Atrial Fib.?denies, denies.?Murmur/Palpitations?denies.?Gastrointestinal:?Hemorrhoids?denies.?Stomach/Abdominal pain?admits.?Dark blood stool?denies.?Irritable bowel ?denies.?Constipation?admits.?Diarrhea?admits.?Vomiting?denies.?Hematology:?Swelling?admits.?Bruising?admits, on aspirin.?Bleeding problem?admits, on anticoagulants.?Genitourinary:?Blood urine?admits.?Frequent/Painfu/urination/bladder control?admits.?Kidney stones?denies.?Infection (UTI)?denies, denies.?Nephropathy?denies, denies.?Musculoskeletal:?Hammertoes?admits.?Bunions?admits.?Scoliosis/kyphosis?denies.?Muscle cramps / walking?admits.?Generalized aches and pains?denies.?Weakness?admits.?Integ.:?Machado?denies, denies.?Scars?denies, denies.?Corns/calluses?admits.?Ingrown nails?admits.?Painful nails?admits.?Rashes?denies, denies.?Neurologic:?Difficulty sleeping?admits.?Bipolar?admits.?Brain disorder?denies.?Balance trouble?admits.?Confusion?denies.?Fainting/blackouts?denies.?Headache?denies.?Tr emors?denies.? * Medical History:? * Surgical History:?gall bladd er 12/11/2014Unspecified Right Hand SX 03/13/17 * Hospitalization/Major Diagno stic Procedure:?Denies Past Hospitalization * Family History:?Mother: dece ased, diagnosed with Family history of arthritis, Other malignant neoplasm of unspecified site.?Father: , diagnosed with Other malignant neoplasm of unspecified site. Daughter(s): alive.?Son(s): alive.?Spouse: alive.?1 son(s) , 1 daughter(s) - healthy. .? * Social History:?Tobacco Use:?Tobacco Use/Smoking?Are you a:?nonsmoker ?Additional Findings: Tobacco Non-User?Current non-smoker ?Tobacco use other than smoking?Are you an other tobacco user??No ???Drugs/Alcohol:?Drugs?Have you used drugs other than those for medical reasons in the past 12 months??No ?Alcohol Screen?Did you have a drink containing alcohol in the past year??No ?Points?0 ?Interpretation?Negative ???Miscellaneous:?Caffeine: 2-3 cups per day. ?Children: yes, 2. ?no Exercise. ?Marital status: . ?Occupation: Retired. * Medications:?TakingzzzCompre ssion Stockings 20-30mm Hg 1 pair closed toe- knee high . . .amLODIPine Besylate Bisacodyl Calcitriol 0.5 MCG Capsule 1 capsule Orally Once a dayCarvedilol Docusate Sodium hydroCHLOROthiazide Omeprazole 20 MG Capsule Delayed Release 1 tablet Orally Once a dayOrthopedic Extra Depth Shoes With Custom Heat Molded Multidensity Innersoles 1 Pair shoes with 3 Pair custom heat molded innersoles Wear DailyAmmonium Lactate 12 % Cream 1 application Externally Twice a dayTaking zzzCompression Stockings 20-30mm Hg 1 pair closed toe- knee high . . .Taking amLODIPine Besylate Taking Bisacodyl Taking Calcitriol 0.5 MCG Capsule 1 capsule Orally Once a dayTaking Carvedilol Taking Docusate Sodium Taking hydroCHLOROthiazide Taking Omeprazole 20 MG Capsule Delayed Release 1 tablet Orally Once a dayTaking Orthopedic Extra Depth Shoes With Custom Heat Molded Multidensity Innersoles 1 Pair shoes with 3 Pair custom heat molded innersoles Wear DailyTaking Ammonium Lactate 12 % Cream 1 application Externally Twice a dayNot-Taking/PRNAspirin 81 MG Tablet 1 tablet Orally Once a dayFolic Acid Levothyroxine Sodium Mapap Tamoxifen Citrate CVS Calcium CVS Gentle Laxative Losartan Potassium traMADol HCl Azithromycin Ibuprofen Flovent HFA Fluticasone Propionate Lidocaine Lisinopril ProAir HFA Propranolol HCl ER Silver sulfADIAZINE Sulfamethoxazole-TMP DS Triamcinolone Acetonide Medication List reviewed and reconciled with the patientNot-Taking/PRN Aspirin 81 MG Tablet 1 tablet Orally Once a dayNot-Taking/PRN Folic Acid Not-Taking/PRN Levothyroxine Sodium Not-Taking/PRN Mapap Not-Taking/PRN Tamoxifen Citrate Not-Taking/PRN CVS Calcium Not-Taking/PRN CVS Gentle Laxative Not-Taking/PRN Losartan Potassium Not- Taking/PRN traMADol HCl Not-Taking/PRN Azithromycin Not-Taking/PRN Ibuprofen Not-Taking/PRN Flovent HFA Not-Taking/PRN Fluticasone Propionate Not-Taking/PRN Lidocaine Not-Taking/PRN Lisinopril Not-Taking/PRN ProAir HFA Not-Taking/PRN Propranolol HCl ER Not-Taking/PRN Silver sulfADIAZINE Not-Taking/PRN Sulfamethoxazole-TMP DS Not-Taking/PRN Triamcinolone Acetonide Medication List reviewed and reconciled with the patient * Allergies:?Senna: rash and b urnsPenicillin: rashyes[Allergies Verified] Objective: * Examination: ???Vascular: ?DP PULSES(B):? 1/4, B/L.?PT PULSES(B):? 0/4, B/L.?CAPILLARY FILL TIME:? delayed, all digits, B/L.?TROPHIC CONDITION-TEXTURE/ELASTICITY/TURGOR/HAIR GROWTH(B):? decreased, with sparse to absent hair growth, B/L.?TEMPERTURE GRADIENT(C):? decreased, cool to cool, proximal to distal, B/L.?PIGMENTATION:? mottled, B/L.?EDEMA(C):?1/4, non-pitting, without aching pain, B/L, Leg(s), Ankle(s).?CLAUDICATION(C):?denies, B/L.?REST PAIN:?denies, B/L.?Nails: ?NAILS are:?Elongated, overgrown, dystrophic, lytic, greater than 3mm thick, discolored and friable with crumbly malodorous subungual debris, with pain on palpation, TA, T1, T3, T4, T5, T6, T9, remaining nails are elongated, overgrown, dystrophic.?Dermatologic: ?SKIN FINDINGS:?Skin exam reveals Keratotic lesion(s) located at, Dorsal, PIPJ, T6, Dorsal, PIPJ, T8, SUB MTH (s), 1, Right, SUB MTH (s), 5, B/L , Dorsal, MTH (s), 5, B/L, Heel(s), B/L , Skin shows approximately 60-70% LESS, sign(s) of, dryness, scaling, in a stocking fashion, no fissure(s) present, B/L.?VERRUCA:? STILL, Reveals a Single , multi-loculated , mosaically patterned, round, raised, flat-topped, petechial bleeding papule(s), with cauliflower appearance and interruption of skin lines, pain to lateral compression, and size estimated at NOW, 2-3mm diameter, plantar Forefoot, LEFT.? Assessment: * Assessment: 1.?Plantar wart - B07.0 (Malka ngozi), LEFT?2.?Atherosclerosis of [place] artery of both lower extremities, with unspecified presence of clinical manifestation - I70.203?3.?Tinea unguium - B35.1?4.?Pain in right toe(s) - M79.674?5.?Pain in left toe(s) - M79.675?6.?Left foot pain - M79.672?7.?Xerosis of skin - L85.3, Acute problem, Stable (1=3),Response to treatment - Improvement? Plan: * Treatment: 2.?Atherosclerosis of [place] artery of both lower extremities, with unspecified presence of clinical manifestation?Procedure: 67190-PUDO SKIN LESIONS, OVER 4 3.?Tinea unguium?Procedure: 12089-NFMKLHJ NAIL, 6 OR MORE 4.?Xerosis of skin? Start Ammonium Lactate Cream, 12 %, 1 application to affected area, Externally, Twice a day to dry areas of skin on feet except between toes, 30 days, 140, Refills 2.?? * Procedures:?Debride Nail 6-10:?Nail debridement?Performance of this nail treatment by a nonprofessional would put this patients foot and overall health at risk. Therefore, nail debridement was performed extensively to reduce/remove overall nail length, girth, thickness, subungual debris, and necrotic tissue, by manual and/or electrical means through the use of a nail nipper and/or dremel-type stand grinder, to a more viable healthy nail plate or bed tissue 6-10. Silver nitrate used for any petechial bleeding as necessary. Definitive antifungal treatment options have been reviewed and discussed with the patient. The patient chooses, no pharmaceutical tx - 26542.?Keratoma Treatment:?Parring or Cutting of Benign Hyperkeratotic Lesion(s)?(-57) More than 4 Lesions - The Benign hyperkeratotic lesions, as described above were pared, and/or cut utilizing a sterile 15 blade, tissue nippers, and/or dremel - 93826 , Q8.?Wart Treatment:?Procedure?Verrucae were debrided to pin-point bleeding margins with sterile 15 surgical blade, silver nitrate chemocautery applied, recomm. immune-boosting meds such as zinc, recomm. follow up with topical chemosurgical agents, Pt defers any other forms of tx - 27054.? * Procedure Codes:?35164 DEBRI DE NAIL, 6 OR MORE, Modifiers: XS 51632 Wart Destruction, 1-14, Modifiers: XS 02019 TRIM SKIN LESIONS, OVER 4, Modifiers: XS , Q8 * Preventive Medicine:? ??Counseling:?Discussion:?-12: Office or other outpatient visit for the evaluation and management of an established patient, which required a medically appropriate history and/or examination and STRAIGHTFORWARD level of MEDICAL DECISION MAKING, 1 SELF-LIMITED OR MINOR PROBLEM, MINIMAL- NO AMOUNT/COMPLEXITY OF DATA TO BE REVIEWED/ANALYZED, AND MINIMAL RISK OF COMPLICATION/MORBIDITY. The visit on the day of the encounter encompassed interpreting the data and educating the patient as to the nature of their condition, treatment options available according to their individual PMH, meds, allergies, and overall health/living conditions, as well as any potential risks or complications that may occur from a failure to adhere to, and participate in, the recommended course of therapy. The discussion included a complete verbal, and/or written explanation of the examination results, any x-rays taken, the proposed diagnosis, and outline of the treatment plan. A schedule for future care needs was also explained. The patient verbalized an understanding of the instructions at this time and agreed to be an active participant in their treatment. If the patient should think of any questions or concerns after the visit, I have encouraged the patient to call the office.?Xerosis:?Given recent successful results to treatment, The patient is to cont the rx cream as directed.? * Follow Up:?2 Months * Images: * Sign off status: Completed true * Provider:?Boyb Chapman DPM Date:?2023 Generated for Yovanny toussaint/Leah/eTransmitting on:?03/14/2024 02:42 PM EST History and Physical Notes * HPI (History of Present Illness) Category Sub-Category Detail Notes Skin problems Treatments: medication ( AM Lactin ) At Risk footcare Pt States Last PCP Visit: Date: 10/14 Examination Category Sub-Category Detail Notes Dermatologic SKIN FINDINGS: Skin exam reveal s Keratotic lesion(s) located at, Dorsal, PIPJ, T6, Dorsal, PIPJ, T8, SUB MTH (s), 1, Right, SUB MTH (s), 5, B/L , Dorsal, MTH (s), 5, B/L, Heel(s), B/L , Skin shows approximately 60-70% LESS, sign(s) of, dryness, scaling, in a stocking fashion, no fissure(s) present, B/L VERRUCA: STILL, Reveals a Sin gle , multi-loculated , mosaically patterned, round, raised, flat-topped, petechial bleeding papule(s), with cauliflower appearance and interruption of skin lines, pain to lateral compression, and size estimated at NOW, 2-3mm diameter, plantar Forefoot, LEFT Vascular DP PULSES(B): 1/4, B/L PT PULSES(B): 0/4, B/L CAPILLARY FILL TIME: delayed, all digits , B/L TEMPERTURE GRADIENT(C): decreased, cool to cool, proximal to distal, B/L TROPHIC CONDITION-TEXTURE/ELASTICITY/TURGOR/HAIR GROWTH(B): decreased, with sparse to absent hair gr owth, B/L EDEMA(C): 1/4, non-pitting, wi thout aching pain, B/L, Leg(s), Ankle(s) CLAUDICATION(C): denies, B/L REST PAIN: denies, B/L PIGMENTATION: mottled, B/L Nails NAILS are: Elongated, overg rown, dystrophic, lytic, greater than 3mm thick, discolored and friable with crumbly malodorous subungual debris, with pain on palpation, TA, T1, T3, T4, T5, T6, T9, remaining nails are elongated, overgrown, dystrophic
--- OUTSIDE RECORDS SUMMARY | 2024-03-14 14:42 | XMS_ITS ---
Demographics Address [address] [facility] [address] [place] [address] Mobile Preferred Language Unknown Marital Status Scientology Affiliation Unknown Race Ethnic Group or Author Organization [facility] Jaylan sampson Bashir Address [address] [facility] [place] [address] Care Team Providers Care Physical Meteorologist Name Role Phone Isaiah DURAN, [place] Primary Care Provider Boby Laguerre Unavailable [phone] Allergies Allergen (clinical drug ingredient) Drug/Non Drug Allergy documented on EMR Reaction Allergy Type Onset Date Status sennosides, MCFP Senna rash and machado Drug Allergy Active Penicillin rash Drug Allergy Active REASON FOR VISIT At Risk Footcare, Painful Nail(s) aggravated by shoes and causing difficulty standing/walking., Ingrown nail(s), Wart(s), Skin problem(s) Medications Medication SIG (Take, Route, Frequency, Duration) Notes Start Date End Date Status Docusate Sodium Acti ve Carvedilol Active Calcitriol 0.5 MCG 1 capsule Orally Once a day Active hydroCHLOROthiazide Active Folic Acid Active Bisacodyl Active Aspirin 81 MG 1 tablet Orally Once a day Active amLODIPine Besylate Active zzzCompression Stockings 20-30mm Hg . . . for . Active Ammonium Lactate 12 % 1 application Externally Twice a day for 30 days Active Triamcinolone Acetonide Not-Taking Sulfamethoxazole-TMP DS Not-Taking Silver sulfADIAZINE Not-Taking Propranolol HCl ER N ot-Taking ProAir HFA Not-Takin g Lisinopril Not-Takin g Lidocaine Not-Taking Fluticasone Propionate Not-Taking Flovent HFA Not-Taki ng Ibuprofen Not-Taking traMADol HCl Not-Cruz ing Losartan Potassium N ot-Taking [facility] Gentle Laxative Not-Taking [facility] Calcium Not-Taki ng Azithromycin Not-Cruz ing Orthopedic Extra Depth Shoes With Custom Heat Molded Multidensity Innersoles 1 Pair shoes with 3 Pair custom heat molded innersoles Wear Daily for 365 days 01/25/2023 Active Tamoxifen Citrate Ac tive Omeprazole 20 MG 1 tablet Orally Once a day Active Mapap Active Levothyroxine Sodium Active Social History Tobacco Use: Social History [...] Are you an other tobacco user? No Vital Signs Height 5 ft 9in in 11/08/2023 Weight 233 lbs 11/08/2023 BMI 34.4 kg/m2 11/08/2023 Procedures Procedure Date Ordered Date Performed Result Body Sit e 01555-YFTIWMP NAIL, 6 OR MORE 11/08/2023 N/A 52178-Kzlu Destruction, 1-14 11/08/2023 N/A 53047-Dbbwpsyo Plate 11/08/2023 N/A 85593-Kifxrkjr Plate Each Additional 11/08/2023 N/A 25094-YXWP SKIN LESIONS, OVER 4 11/08/2023 N/A Encounters Encounter Location Date Provider Diagnosis [facility] [address] [address] 11/08/2023 Boby Chapman Atherosclerosis of greenville artery of both lower extremities, with unspecified presence of clinical manifestation I70.203 ; Plantar wart B07.0 ; Tinea unguium B35.1 ; Pain in right toe(s) M79.674 ; Pain in left toe(s) M79.675 ; Ingrown nail L60.0 ; Left foot pain M79.672 and Xerosis of skin L85.3 Assessments Encounter Date Diagnosis (ICD Code) Assessment Notes Treat ment Notes Treatment Clinical Notes 11/08/2023 Atherosclerosis of greenville artery of both lower extremities, with unspecified presence of clinical manifestation (ICD-10 - I70.203) 11/08/2023 Plantar wart (ICD-10 - B07.0) 11/08/2023 Tinea unguium (ICD-1 0 - B35.1) 11/08/2023 Pain in right toe(s) (ICD-10 - M79.674) 11/08/2023 Pain in left toe(s) (ICD-10 - M79.675) 11/08/2023 Ingrown nail (ICD-10 - L60.0) 11/08/2023 Left foot pain (ICD- 10 - M79.672) 11/08/2023 Xerosis of skin (ICD-10 - L85.3) Plan Of Treatment Medication Medication Name Sig Start Date Stop Date Notes Ammonium Lactate 12 % 1 application Exte rnally Twice a day for 30 days Pending Test Test Name Order Date 61633-YDGCFOE NAIL, 6 OR MORE 11/08/2023 35406-Tnjb Destruction, 1-14 11/08/2023 61013-Rkhdgrej Plate 11/08/2023 74654-Xjiifcds Plate Each Additional 31010-SKQA SKIN LESIONS, OVER 4 11/08/19 24 Next Appt Details Follow Up: 2 Months, Reason: Provider Name:Boby Chapman , 05/05/2024 01:45:00 PM, [address] [facility], [address], [place], [address], Procedure Notes * Category Sub-Category Detail Notes Wart Treatment Procedure Verrucae(s) were debrided to pin-point bleeding margins with sterile surgical blade, silver nitrate chemocautery applied, recomm. immune-boosting meds such as zinc, recomm. follow up with topical chemosurgical agents, Pt STILL defers any other forms of tx (44578), CONT, recomm. Wartstick 40% Salicylic acid application under occlusion as directed, CIRCULATION: Any more invasive procedure to wart deferred due to circulation risk Nail Avulsion Procedure A fine sterile e levator was placed between the eponychium, nail fold, and nail plate to separate the the structures. A sterile nail splitter, and/or sterile #316 blade, was then used to longitudinally section the nail along its entire length through the eponychium to the area under the nail fold. The offending portion of nail was from the nail bed with a rolling action and then removed with a hemostat. No underlying bone was identified. A bacitracin sterile dressing was applied. Local wound aftercare instructions were discussed and dispensed. The patient was informed of both conservative and future surgical procedures to prevent recurrence (00502/32), CIRCULATION: Pt was advised as to the risk of delayed or nonhealing due to circulation. Pt is to call the office with any questions, concerns, or complications, CIRCULATION: Matricectomy deferred due to compromised circulation risk Anesthesia was accomplished TOP ICALLY with Lidocaine Hydrochloride Jelly 2%, to each toe Location Medial nail border, TA, T5 Debride Nail 6-10 Nail debridement Nail debridem ent performed extensively to reduce/remove overall nail length, girth, thickness, subungual debris, and necrotic tissue, by manual and electrical means through the use of a nail nipper and/or dremel, to more viable healthy nail plate or bed tissue 1-5. Silver nitrate used for any petechial bleeding as necessary. Patient chooses, no pharmaceutical tx (66720) Keratoma Treatment Parring or Cutting o f Benign Hyperkeratotic Lesion(s) 92704 ( >4 Lesions) - The Benign hyperkeratotic lesions, as described above were pared, and/or cut utilizing a sterile #15 blade, tissue nippers, and/or dremel, Q8 Progress Notes * Tommie BLANCASOB:[birth year] (78 yo F)Acc No.[id number]:11/08/2023 Progress Note Patient:?Jacinda Blancas Provider:?Boby Chapman DPM :1945???Age:78 Y???Sex:Female D ate:11/08/2023 Address:[address] [place], [place] [id number] Pcp:Truong Colon MD Subjective: * Chief Complaints: * ???At Risk FootcarePainful N ail(s) aggravated by shoes and causing difficulty standing/walking.Ingrown nail(s)Wart(s)Skin problem(s) * HPI: ???At Risk footcare:?Pt States Last PCP Visit:?Date?10/15/2023 ???Skin problems:?Nature:?dryness , scaling.?Location:?B/L .?Duration:?several days.?Course:?worse.? * ROS:?General/Constitutional:?Nausea?denies.?Vomiting?admits.?Hunger Thirst?admits.?Loss appetite?denies, denies.?Chills?denies, denies.?Fatigue?denies, denies.?Fever?denies, [...] toe- knee high . . .amLODIPine Besylate Aspirin 81 MG Tablet 1 tablet Orally Once a dayBisacodyl Calcitriol 0.5 MCG Capsule 1 capsule Orally Once a dayCarvedilol Docusate Sodium Folic Acid hydroCHLOROthiazide Levothyroxine Sodium Mapap Omeprazole 20 MG Capsule Delayed Release 1 tablet Orally Once a dayTamoxifen Citrate Orthopedic Extra Depth Shoes With Custom Heat Molded Multidensity Innersoles 1 Pair shoes with 3 Pair custom heat molded innersoles Wear DailyTaking zzzCompression Stockings 20-30mm Hg 1 pair closed toe- knee high . . .Taking amLODIPine Besylate Taking Aspirin 81 MG Tablet 1 tablet Orally Once a dayTaking Bisacodyl Taking Calcitriol 0.5 MCG Capsule 1 capsule Orally Once a dayTaking Carvedilol Taking Docusate Sodium Taking Folic Acid Taking hydroCHLOROthiazide Taking Levothyroxine Sodium Taking Mapap Taking Omeprazole 20 MG Capsule Delayed Release 1 tablet Orally Once a dayTaking Tamoxifen Citrate Taking Orthopedic Extra Depth Shoes With Custom Heat Molded Multidensity Innersoles 1 Pair shoes with 3 Pair custom heat molded innersoles Wear DailyNot-Taking/PRNCVS Calcium CVS Gentle Laxative Losartan Potassium traMADol HCl Azithromycin Ibuprofen Flovent HFA Fluticasone Propionate Lidocaine Lisinopril ProAir HFA Propranolol HCl ER Silver sulfADIAZINE Sulfamethoxazole-TMP DS Triamcinolone Acetonide Medication List reviewed and reconciled with the patientNot-Taking/PRN CVS Calcium Not-Taking/PRN CVS Gentle Laxative Not-Taking/PRN Losartan Potassium Not-Taking/PRN traMADol HCl Not- Taking/PRN Azithromycin Not-Taking/PRN Ibuprofen Not-Taking/PRN Flovent HFA Not-Taking/PRN Fluticasone Propionate Not-Taking/PRN Lidocaine Not-Taking/PRN Lisinopril Not-Taking/PRN ProAir HFA Not-Taking/PRN Propranolol HCl ER Not-Taking/PRN Silver sulfADIAZINE Not-Taking/PRN Sulfamethoxazole-TMP DS Not-Taking/PRN Triamcinolone Acetonide Medication List reviewed and reconciled with the patient * Allergies:?Senna: rash and b urnsPenicillin: rashyes[Allergies Verified] Objective: * Vitals:?Ht: 5 ft 9in, Wt: 23 3, BMI: 34.4, Shoe size: 11W, Ht-cm: 175.26 cm, Wt- k.69 kg. * Examination: ???Vascular: ?DP PULSES:? 04/26, B/L.?PT PULSES:? 0, B/L.?CAPILLARY FILL TIME:? delayed, all digits, B/L.?SKIN TEMPERTURE GRADIENT OF THE LOWER EXTERMITIES:? decreased, cool to cool, proximal to distal, B/L.?HAIR GROWTH/TEXTURE/ELASTICITY/TURGOR:? decreased, B/L.?PIGMENTATION:? mottled, B/L.?EDEMA:?04/26, non-pitting, without aching pain, B/L, Leg(s), Ankle(s).?CLAUDICATION:?denies, B/L.?REST PAIN:?denies, B/L.?Nails: ?NAILS are:?Elongated, overgrown, dystrophic, lytic, greater than 3mm thick, discolored and friable with crumbly malodorous subungual debris, with pain on palpation, TA, T1, T3, T4, T5, T6, T9, remaining nails are elongated, overgrown, dystrophic.?Ingrown Nail: ?INSPECTION:?Reveals nail incurvation, pain on palpation, groove hypertrophy, Medial nail border, TA, T5.?Dermatologic: ?SKIN FINDINGS:?Skin exam reveals Keratotic lesion(s) located at, Dorsal, PIPJ, T6, Dorsal, PIPJ, T8, SUB MTH (s), 1, Right, SUB MTH (s), 5, B/L , Dorsal, MTH (s), 5, B/L, Heel(s), B/L , Skin shows sign(s) of, dryness, scaling, in a stocking fashion, no fissure(s) present, B/L.?VERRUCA:? STILL, Reveals a Single , multi-loculated , mosaically patterned, round, raised, flat-topped, petechial bleeding papulae(s), with cauliflower appearance and interrruption of skin lines, pain to lateral compression, and size estimated at 5-6mm diameter, plantar Forefoot, LEFT.? Assessment: * Assessment: 1.?Plantar wart - B07.0 (Malka ngozi), LEFT?2.?Atherosclerosis of greenville artery of both lower extremities, with unspecified presence of clinical manifestation - I70.203?3.?Tinea unguium - B35.1?4.?Pain in right toe(s) - M79.674?5.?Pain in left toe(s) - M79.675?6.?Ingrown nail - L60.0, Medial nail border, TA, T5?7.?Left foot pain - M79.672?8.?Xerosis of skin - L85.3, Acute problem, Uncomplicated (3),Rx Management (4)? Plan: * Treatment: 2.?Atherosclerosis of greenville artery of both lower extremities, with unspecified presence of clinical manifestation?Procedure: 91217-KJXU SKIN LESIONS, OVER 4 3.?Tinea unguium?Procedure: 83736-ABQZXOZ NAIL, 6 OR MORE 4.?Ingrown nail?Procedure: 89449-Pxqiyvfy Plate ?Procedure: 55871-Pkddbvvq Plate Each Additional 5.?Xerosis of skin? Start Ammonium Lactate Cream, 12 %, 1 application, Externally, Twice a day, 30 days, 60, Refills 2.?? * Procedures:?Debride Nail 6-10:?Nail debridement?Nail debridement performed extensively to reduce/remove overall nail length, girth, thickness, subungual debris, and necrotic tissue, by manual and electrical means through the use of a nail nipper and/or dremel, to more viable healthy nail plate or bed tissue 1-5. Silver nitrate used for any petechial bleeding as necessary. Patient chooses, no pharmaceutical tx (28896).?Keratoma Treatment:?Parring or Cutting of Benign Hyperkeratotic Lesion(s)?65944 ( >4 Lesions) - The Benign hyperkeratotic lesions, as described above were pared, and/or cut utilizing a sterile #15 blade, tissue nippers, and/or dremel, Q8.?Nail Avulsion:?Location?Medial nail border, TA, T5 .?Anesthesia?was accomplished TOPICALLY with Lidocaine Hydrochloride Jelly 2%, to each toe.?Procedure?A fine sterile elevator was placed between the eponychium, nail fold, and nail plate to separate the the structures. A sterile nail splitter, and/or sterile #316 blade, was then used to longitudinally section the nail along its entire length through the eponychium to the area under the nail fold. The offending portion of nail was from the nail bed with a rolling action and then removed with a hemostat. No underlying bone was identified. A bacitracin sterile dressing was applied. Local wound aftercare instructions were discussed and dispensed. The patient was informed of both conservative and future surgical procedures to prevent recurrence (33501/32), CIRCULATION: Pt was advised as to the risk of delayed or nonhealing due to circulation. Pt is to call the office with any questions, concerns, or complications, CIRCULATION: Matricectomy deferred due to compromised circulation risk.?Wart Treatment:?Procedure?Verrucae(s) were debrided to pin-point bleeding margins with sterile surgical blade, silver nitrate chemocautery applied, recomm. immune-boosting meds such as zinc, recomm. follow up with topical chemosurgical agents, Pt STILL defers any other forms of tx (81859), CONT, recomm. Wartstick 40% Salicylic acid application under occlusion as directed, CIRCULATION: Any more invasive procedure to wart deferred due to circulation risk.? * Procedure Codes:?26404 DEBRI DE NAIL, 6 OR MORE, Modifiers: XS 05358 Avulsion Plate, Modifiers: XS , [id number] Wart Destruction, 1-14, Modifiers: XS 95096 Avulsion Plate Each Additional, Modifiers: XS , [id number] TRIM SKIN LESIONS, OVER 4, Modifiers: XS , Q8 * Preventive Medicine:? ??Counseling:?Discussion:?-13: Office or other outpatient visit for the evaluation and management of an established patient, which required a medically appropriate history and/or examination and LOW level of DECISION MAKING for: 1 STABLE ACUTE UNCOMPLICATED PROBLEM, 2 OR MORE MINOR PROBLEMS, OR 1 STABLE CHRONIC PROBLEM, THAT POSE(S) A LOW RISK FOR MORBIDITY/MORTALITY. The visit on the day of the [...] have encouraged the patient to call the office.?Xerosis:?The patient was counseled on the diagnosis, potential etiologies, and treatment options for their skin condition. We discussed the risks and benefits of each option from performing no treatment, to utilizing OTC topical skin creams/ointments, to utilizing prescription topical creams/ointments, to utilizing customized compounded topical medications and use of nocturnal occlusion with any/all previously detailed therapies. We discussed the advantages and disadvantages of each possible treatment and importance for adherence to all the recommended therapies for optimum success and avoid potential complications such as open sore/infection/possible hospitalization. We discussed the potential effectiveness of each topical preparation as well as each ones possible side effects and/or patient medication interactions. Patient questions re: use, dosage, successful outcomes, and application consistency were reviewed and the patient verbalized that all answers were clearly understood. The patient has decided to apply Rx skin creams to their feet save the interspaces while paying special attention to the heels. Such was sent to their pharmacy at the time of visit.? * Follow Up:?2 Months * Images: * Sign off status: Completed Addendum: * ? true * Provider:?Boby Chapman DPM Date:?2023 Generated for Yovanny toussaint/Leah/Lois on:?03/14/2024 02:42 PM EST History and Physical Notes * HPI (History of Present Illness) Category Sub-Category Detail Notes Skin problems Nature: dryness , scalin g Location: B/L Duration: several days Course: worse At Risk footcare Pt States Last PCP Visit: Date: 10/14 Examination Category Sub-Category Detail Notes Ingrown Nail INSPECTION: Reveals nail inc urvation, pain on palpation, groove hypertrophy, Medial nail border, TA, T5 Dermatologic SKIN FINDINGS: Skin exam reveal s Keratotic lesion(s) located at, Dorsal, PIPJ, T6, Dorsal, PIPJ, T8, SUB MTH (s), 1, Right, SUB MTH (s), 5, B/L , Dorsal, MTH (s), 5, B/L, Heel(s), B/L , Skin shows sign(s) of, dryness, scaling, in a stocking fashion, no fissure(s) present, B/L VERRUCA: STILL, Reveals a Sin gle , multi-loculated , mosaically patterned, round, raised, flat-topped, petechial bleeding papulae(s), with cauliflower appearance and interrruption of skin lines, pain to lateral compression, and size estimated at 5-6mm diameter, plantar Forefoot, LEFT Vascular DP PULSES(B): 1/4, B/L PT PULSES(B): 0/4, B/L CAPILLARY FILL TIME: delayed, all digits , B/L TEMPERTURE GRADIENT(C): decreased, cool to cool, proximal to distal, B/L TROPHIC CONDITION-TEXTURE/ELASTICITY/TURGOR/HAIR GROWTH(B): decreased, B/L EDEMA(C): 1/4, non-pitting, wi thout aching [...]
--- OUTSIDE RECORDS SUMMARY | 2024-03-14 14:42 | XMS_ITS | Continuity of Care Document ---
Author Organization [facility] ter Address [address] [place] [address]- Care Team Providers Care Jewel Bearing Facer Name Role Phone María Lemus MD Primary Care Physician Encounter [facility] Date(s): 11/10/20 - 11/10/[address] [address]- Discharge Disposition: A-D/C Home Attending Physician: Tristin Fuentes MD Admitting Physician: Tristin Fuentes MD Referring Physician: Tristin Fuentes MD Allergies, Adverse Reactions, Alerts Substance Reaction Severity Status penicillins rash bruising Active Medications amLODIPine 5 mg oral tablet 5 mg, 1, tablet, By Mouth, Daily, # 30 tablet, Refills 0, Maintenance, 09/14/17 7:57:00 EDT Start Date: 09/14/17 Status: Ordered benzoyl peroxide 2.5% topical gel 1 application, Topically, 2 times a day, # 60 Gm, 0 Refills, Maintenance, 02/15/16 13:25:51, Gel, 1application Topically 2 times a day,x14 days Start Date: 02/15/16 Stop Date: 02/29/16 Status: Ordered calcitriol 0.5 mcg oral capsule 2 capsule = 1 mcg, By Mouth, Every , # 10 capsule, 11 Refills, Maintenance, 07/14/14 8:11:44, Capsule, 2 capsule By Mouth Every ,x30 days Start Date: 07/14/14 Stop Date: 07/09/15 Status: Ordered carvedilol 3.125 mg oral tablet 3.125 mg, 1, tablet, By Mouth, 2 times a day, # 60 tablet, Refills 0, Maintenance, 09/14/17 7:57:09EDT Start Date: 09/14/17 Status: Ordered Doc-Q-Lace sodium 100 mg oral capsule 1 capsule = 100 mg, By Mouth, 2 times a day, 0 Refills, Maintenance, 05/18/14 10:17:05 Start Date: 05/18/14 Status: Ordered Multivitamin By Mouth, Daily, 0 Refills, Maintenance, 10/12/15 16:51:01 Start Date: 10/12/15 Status: Ordered Prilosec OTC 20, mg, By Mouth, Daily, 0, 0, 08/26/07 11:25:36, Print BEATRIS Number, [id number], Constant Indicator Start Date: 08/26/07 Status: Ordered Synthroid 0.112 mg oral tablet 1 tablet = 112 mcg, By Mouth, Daily, 0 Refills, Maintenance Start Date: 02/07/12 Status: Ordered Problem List Condition Effective Dates Status Health Status Inform ant Anemia(Confirmed) Active Arthritis(Confirmed) Active CKD stage 3(Confirmed) Active GERD - Gastro-esophageal ref lux disease(Confirmed) Active HTN - Hypertension(Confirmed) Active Hypothyroid(Confirmed) Active Breast cancer, left(Confirmed) Active Urinary incontinence(Confirmed) Active Vitamin D Deficiency(Confirmed) Active Vital Signs Most recent to oldest [Reference Range]: 1 2 3 Weight 107.2 kg (11/10/20 3:43 PM) Oxygen Saturation [94-100 %] 81 % *L* (11/10/20 5:00 PM) 68 % *L* (11/10/20 4:45 PM) 56 % *L* (11/10/20 4:30 PM) Pulse Rate [55-90 bpm] 62 bpm (11/10/20 3:43 PM) Blood Pressure [90-138/55-84 mm Hg] 150/65mm Hg *H* (11/10/20 5:00 PM) 133/63mm Hg (11/10/20 4:45 PM) 136/74mm Hg (11/10/20 4:30 PM) Respiratory Rate [16-30 br/min] 11 br/min *L* (11/10/20 5:00 PM) 15 br/min *L* (11/10/20 4:45 PM) 50 br/min *H* (11/10/20 4:30 PM) Temperature [96.8-100.4 DegF] 98.5 DegF (11/10/20 4:45 PM) 98 DegF (11/10/20 4:30 PM) 98.2 DegF (11/10/20 3:43 PM) Mode of Delivery (Oxygen) Room air (11/10/20 5:00 PM) Room air (11/10/20 4:45 PM) Room air (11/10/20 4:30 PM) Blood pressure sites Arm, right (11/10/20 3:43 PM) Temperature Route Temporal (11/10/20 4:45 PM) Temporal (11/10/20 4:30 PM) Temporal (11/10/20 3:43 PM) Dry Weight 107.2 kg (11/10/20 3:43 PM) Weight Obtained Via Standing scale (11/10/20 3:43 PM) Dry Weight Obtained Via Standing scale (11/10/20 3:43 PM) Social History Social History Type Response Smoking Status Never smoker entered on: 02/15/15 Sex
--- OUTSIDE RECORDS SUMMARY | 2024-03-14 14:43 | XMS_ITS | Patient Health Record ---
Author Organization [facility] [place] Address [address] [place] [address] Care Team Providers Care Director Of Vendor Management Name Role Phone Isaiah DURAN, [place] Primary Care Provider Boby Laguerre Unavailable [phone] Allergies Allergen (clinical drug ingredient) Drug/Non Drug Allergy documented on EMR Reaction Allergy Type Onset Date Status sennosides, HALFWAY Senna rash and machado Drug Allergy Active Penicillin rash Drug Allergy Active Reason For Referral No Information Medications Medication SIG (Take, Route, Frequency, Duration) Notes Start Date End Date Status hydroCHLOROthiazide Active Folic Acid Not-Takin g Docusate Sodium Acti ve Sulfamethoxazole-TMP DS Not-Taking Triamcinolone Acetonide Not-Taking [facility] Gentle Laxative Not-Taking [facility] Calcium Not-Taki [...] Orally Once a day Active Mapap Not-Taking Levothyroxine Sodium Not-Taking traMADol HCl Not-Cruz ing Losartan Potassium N ot-Taking Azithromycin Not-Cruz ing Ammonium Lactate 12 % 1 application to affected area Externally Twice a day to dry areas of skin on feet except between toes for 30 days 01/24/2024 Active Carvedilol Active Silver sulfADIAZINE Not-Taking Calcitriol 0.5 MCG 1 capsule Orally Once a day Active Propranolol HCl ER N ot-Taking Bisacodyl Active ProAir HFA Not-Takin g Aspirin 81 MG 1 tablet Orally Once a day Not-Taking Lisinopril Not-Takin g amLODIPine Besylate Active Lidocaine Not-Taking zzzCompression Stockings 20-30mm Hg . . . for . Active Fluticasone Propionate Not-Taking Flovent HFA Not-Taki ng Ibuprofen Not-Taking Immunizations Vaccine Route Administration Date Status Comme nts COVID-19 Moderna Vaccine Unknown 07/20/2020 Administere d COVID-19 Moderna Vaccine Unknown 08/17/2020 Administere d Influenza Unknown 03/20/2018 Administered Influenza Unknown 03/20/2019 Administered Social History Tobacco Use: Social History Observation [...] Are you an other tobacco user? No Problems Problem Type SNOMED Code ICD Code Onset Dates Problem Status W/U Status Risk Notes Problem Acquired hammer toe of right foot (7238008163154707 ) Other hammer toe(s) (acquired), right foot (M20.41) Active confirmed Response to treatment, Improvemen t Problem Acquired hammer toe of left foot (5118420036920737 ) Other hammer toe(s) (acquired), left foot (M20.42) Active confirmed Response to treatment, Improvemen t Problem Plantar wart (10138071) Plantar wart (B07.0) Active confirmed Chronic Problem [id number] Atherosclerosis of torres [place]inez artery of both lower extremities, with unspecified presence of clinical manifestation (I70.203) Active confirmed Vital Signs Height 5 ft 9in in 11/08/2023 Weight 233 lbs 11/08/2023 BMI 34.4 kg/m2 11/08/2023 Procedures Procedure Date Ordered Date Performed Result Body Sit e 60194-ACIAMVD NAIL, 6 OR MORE 04/11/2023 N/A 71621-Ebef Destruction, 1-14 04/11/2023 N/A 83535-Gymueonn Plate 04/11/2023 N/A 09984-Sopmgroq Plate Each Additional 04/11/2023 N/A 42225-QXBZ SKIN LESIONS, OVER 4 04/11/2023 N/A 29844-THPOQZU NAIL, 6 OR MORE 06/27/2023 N/A 10804-Qxhj Destruction, 1-14 06/27/2023 N/A 84885-Uuetortl Plate 06/27/2023 N/A 04399-Pvilhlkr Plate Each Additional 06/27/2023 N/A 28094-KFDD SKIN LESIONS, OVER 4 06/27/2023 N/A 11557-PHLPAWE NAIL, 6 OR MORE 08/30/2023 N/A 39512-Zhwe Destruction, 1-14 08/30/2023 N/A 07866-Nkmbyzsc Plate 08/30/2023 N/A 48033-Rndgibdo Plate Each Additional 08/30/2023 N/A 87775-WIHE SKIN LESIONS, OVER 4 08/30/2023 N/A 20693-AWIBQOX NAIL, 6 OR MORE 11/08/2023 N/A 01359-Taoa Destruction, 1-14 11/08/2023 N/A 70400-Khabongy Plate 11/08/2023 N/A 27419-Fhfqtiyq Plate Each Additional 11/08/2023 N/A 62936-TKFC SKIN LESIONS, OVER 4 11/08/2023 N/A 96558-NHHPBSX NAIL, 6 OR MORE 01/24/2024 N/A 51535-Qhjj Destruction, 1-14 01/24/2024 N/A 03907-KQXG SKIN LESIONS, OVER 4 01/24/2024 N/A Encounters Encounter Location Date Provider Diagnosis [address] [address] 04/11/2023 Boby Chapman Atherosclerosis of torres martinez artery of both lower extremities, with unspecified presence of clinical manifestation I70.203 ; Ingrowing nail L60.0 ; Tinea unguium B35.1 ; Pain in right toe(s) M79.674 ; Pain in left toe(s) M79.675 ; Plantar wart B07.0 and Pain in left foot M79.[address] [address] 06/27/2023 Boby Chapman Atherosclerosis of torres martinez artery of both lower extremities, with unspecified presence of clinical manifestation I70.203 ; Plantar wart B07.0 ; Tinea unguium B35.1 ; Pain in right toe(s) M79.674 ; Pain in left toe(s) M79.675 ; Ingrown nail L60.0 ; Left foot pain M79.672 ; Other hammer toe(s) (acquired), right foot M20.41 and Other hammer toe(s) (acquired), left foot M20.[address] [address] 08/30/2023 Boby Chapman Atherosclerosis of torres [place]inez artery of both lower extremities, with unspecified presence of clinical manifestation I70.203 ; Plantar wart B07.0 ; Tinea unguium B35.1 ; Pain in right toe(s) M79.674 ; Pain in left toe(s) M79.675 ; Ingrown nail L60.0 and Left foot pain M79.[address] [address] 11/08/2023 Boby Chapman Atherosclerosis of torres [place]inez artery of both lower extremities, with unspecified presence of clinical manifestation I70.203 ; Plantar wart B07.0 ; Tinea unguium B35.1 ; Pain in right toe(s) M79.674 ; Pain in left toe(s) M79.675 ; Ingrown nail L60.0 ; Left foot pain M79.672 and Xerosis of skin L85.[address] [address] 01/24/2024 Boby Chapman Atherosclerosis of torres [place]inez artery of both lower extremities, with unspecified presence of clinical manifestation I70.203 ; Plantar wart B07.0 ; Tinea unguium B35.1 ; Pain in right toe(s) M79.674 ; Pain in left toe(s) M79.675 ; Left foot pain M79.672 and Xerosis of skin L85.3 Assessments Encounter Date Diagnosis (ICD Code) Assessment Notes Treat ment Notes Treatment Clinical Notes 04/11/2023 Ingrowing nail (ICD- 10 - L60.0) 04/11/2023 Atherosclerosis of torres martinez artery of both lower extremities, with unspecified presence of clinical manifestation (ICD-10 - I70.203) 06/27/2023 Plantar wart (ICD-10 - B07.0) 06/27/2023 Atherosclerosis of tor[place]inez artery of both lower extremities, with unspecified presence of clinical manifestation (ICD-10 - I70.203) 08/30/2023 Plantar wart (ICD-10 - B07.0) 08/30/2023 Atherosclerosis of tor[place] artery of both lower extremities, with unspecified presence of clinical manifestation (ICD-10 - I70.203) 11/08/2023 Plantar wart (ICD-10 - B07.0) 11/08/2023 Atherosclerosis of tor[place] artery of both lower extremities, with unspecified presence of clinical manifestation (ICD-10 - I70.203) 01/24/2024 Plantar wart (ICD-10 - B07.0) 01/24/2024 Atherosclerosis of torres [place] artery of both lower extremities, with unspecified presence of clinical manifestation (ICD-10 - I70.203) 01/24/2024 Tinea unguium (ICD-1 0 - B35.1) 11/08/2023 Tinea unguium (ICD-1 0 - B35.1) 08/30/2023 Tinea unguium (ICD-1 0 - B35.1) 06/27/2023 Tinea unguium (ICD-1 0 - B35.1) 04/11/2023 Tinea unguium (ICD-1 0 - B35.1) 04/11/2023 Pain in right toe(s) (ICD-10 - M79.674) 06/27/2023 Pain in right toe(s) (ICD-10 - M79.674) 08/30/2023 Pain in right toe(s) (ICD-10 - M79.674) 11/08/2023 Pain in right toe(s) (ICD-10 - M79.674) 01/24/2024 Pain in right toe(s) (ICD-10 - M79.674) 01/24/2024 Pain in left toe(s) (ICD-10 - M79.675) 11/08/2023 Pain in left toe(s) (ICD-10 - M79.675) 06/27/2023 Pain in left toe(s) (ICD-10 - M79.675) 08/30/2023 Pain in left toe(s) (ICD-10 - M79.675) 04/11/2023 Pain in left toe(s) (ICD-10 - M79.675) 04/11/2023 Plantar wart (ICD-10 - B07.0) 08/30/2023 Ingrown nail (ICD-10 - L60.0) 06/27/2023 Ingrown nail (ICD-10 - L60.0) 11/08/2023 Ingrown nail (ICD-10 - L60.0) 01/24/2024 Left foot pain (ICD- 10 - M79.672) 11/08/2023 Left foot pain (ICD- 10 - M79.672) 01/24/2024 Xerosis of skin (ICD-10 - L85.3) 06/27/2023 Left foot pain (ICD- 10 - M79.672) 08/30/2023 Left foot pain (ICD- 10 - M79.672) 04/11/2023 Pain in left foot (ICD-10 - M79.672) 06/27/2023 Other hammer toe(s) (acquired), right foot (ICD-10 - M20.41) Response to treatment,Improve ment 06/27/2023 Other hammer toe(s) (acquired), left foot (ICD-10 - M20.42) Response to treatment,Improve ment 11/08/2023 Xerosis of skin (ICD-10 - L85.3) Plan Of Treatment Pending Test Test Name Order Date 87636-KZMHCOD NAIL, 6 OR MORE 03/21/2017 15485-HXFZIJJ NAIL, 6 OR MORE 05/30/2017 08077-EIKOOEK NAIL, 6 OR MORE 08/06/2017 97342-WEATOML NAIL, 6 OR MORE 10/25/2017 64264-WYULEAL NAIL, 6 OR MORE 03/20/2018 58528-BXKAJNX NAIL, 6 OR MORE 06/13/2018 61398-IMFXHJL NAIL, 6 OR MORE 01/07/2018 63072-POGHNIY NAIL, 6 OR MORE 08/14/2018 93986-NXMAMVO NAIL, 6 OR MORE 10/17/2018 17387-JQZVNRW NAIL, 6 OR MORE 01/16/2019 05106-BPWIVQE NAIL, 6 OR MORE 04/03/2019 99554-IFTAODK NAIL, 6 OR MORE 06/16/2019 02658-IPUZUAQ NAIL, 6 OR MORE 08/27/2019 80957-KHAUZEL NAIL, 6 OR MORE 12/18/2019 40404-IRKMIPB NAIL, 6 OR MORE 05/06/2020 63943-QYPBCAV NAIL, 6 OR MORE 07/15/2020 42502-BNDGVAV NAIL, 6 OR MORE 09/29/2020 65155-EDLDJBN NAIL, 6 OR MORE 12/02/2020 04325-YBIFYVP NAIL, 6 OR MORE 02/17/2021 63626-TSJQEOS NAIL, 6 OR MORE 06/16/2021 45185-RLSVYCS NAIL, 6 OR MORE 08/29/2021 89248-NUCNGKV NAIL, 6 OR MORE 11/10/2021 28095-VKKUYZI NAIL, 6 OR MORE 01/19/2022 86581-XBXSUFA NAIL, 6 OR MORE 04/05/2022 65227-EGUFBKU NAIL, 6 OR MORE 06/15/2022 85484-IOUPNAE NAIL, 6 OR MORE 08/24/2022 38564-QAPLJJM NAIL, 6 OR MORE 11/16/2022 24696-LGFVQOB NAIL, 6 OR MORE 01/25/2023 08595-BLOVSIO NAIL, 6 OR MORE 04/11/2023 51160-JPVCVFT NAIL, 6 OR MORE 06/27/2023 64605-UFNGOFX NAIL, 6 OR MORE 08/30/2023 42348-IMOPOBC NAIL, 6 OR MORE 11/08/2023 34658-TTCGGKF NAIL, 6 OR MORE 01/24/2024 22952-JXBWFHB NAIL, 1-5 11/01/2016 65859-IHDRAEX NAIL, -5 01/03/2017 09889-DLCNZVU NAIL, -5 11/15/2015 70765-VIOIHNR NAIL, -5 01/24/2016 87891-UJQWJSN NAIL, -5 04/05/2016 33381-JRGQGOF NAIL, -06/14/2016 96866-YQIJKBD NAIL, -08/23/2016 84853-Mnmo Destruction, -11/01/2016 00144-Vzop Destruction, 05-0601/03/2017 21208-Vnqb Destruction, 05-0603/21/2017 47303-Hdxj Destruction, 05-0605/30/2017 47496-Ztaq Destruction, 05-0608/06/2017 48396-Rdhk Destruction, 05-0605/06/2020 20450-Qihg Destruction, 05-0612/18/2019 03175-Lrzb Destruction, 05-0608/27/2019 69094-Crkr Destruction, 05-0606/16/2019 36447-Zfla Destruction, 05-0604/03/2019 26739-Euxw Destruction, 05-0601/16/2019 97827-Yvfq Destruction, 05-0610/17/2018 57737-Ynbb Destruction, 05-0608/14/2018 76498-Mhur Destruction, 05-0606/13/2018 24047-Gkcy Destruction, 05-0610/25/2017 08881-Jjkj Destruction, 05-0601/07/2018 75342-Kboe Destruction, 05-0608/30/2023 30126-Fffy Destruction, 05-0606/27/2023 04842-Qquq Destruction, 05-0604/11/2023 06090-Bjtn Destruction, 05-0601/25/2023 02781-Dhdw Destruction, 05-0611/16/2022 47002-Rmuw Destruction, 05-0608/24/2022 11435-Rgur Destruction, 05-0606/15/2022 19416-Zguh Destruction, 05-0604/05/2022 68296-Fdbg Destruction, 05-0601/19/2022 97046-Oerv Destruction, 05-0606/16/2021 70763-Puii Destruction, 05-0603/20/2018 58926-Qmmt Destruction, 05-0611/10/2021 34449-Ircz Destruction, 05-0608/29/2021 42734-Qevg Destruction, 05-0602/17/2021 68552-Mibk Destruction, 05-0612/02/2020 53783-Kvkh Destruction, 05-0609/29/2020 71435-Hxcp Destruction, 05-0607/15/2020 52460-Vnak Destruction, 1-14 01/24/2024 62256-Muqz Destruction, 1-11/08/2023 72608-Chakxnhr Plate 11/08/2023 63250-Hfqmkcez Plate 09/29/2020 92225-Kpyzkyzu Plate 12/02/2020 52696-Yaccyqan Plate 02/17/2021 91475-Ahiadlhw Plate 06/16/2021 05887-Blvaglvo Plate 08/29/2021 94637-Myvpleal Plate 11/10/2021 68723-Cglksbur Plate 01/19/2022 83481-Zlmexzee Plate 04/05/2022 46525-Zvltnehr Plate 06/15/2022 22830-Ozcebovq Plate 08/24/2022 98092-Klexglov Plate 11/16/2022 20745-Opovudeo Plate 01/25/2023 83238-Pjlceomt Plate 04/11/2023 20305-Fllxckjf Plate 06/27/2023 33967-Sxjwokdl Plate 08/30/2023 06786-Wnirpjfu Plate 12/18/2019 63774-Ullcavro Plate 05/06/2020 68778-Uwlwmqnw Plate 07/15/2020 76082-Hnesusmx Plate 11/01/2016 20205-Knxcgiev Plate Each Additional 12/2023 86007-Jpdeeiui Plate Each Additional 09/2023 41093-Lqnzhoaf Plate Each Additional 57698-Pmzfcabs Plate Each Additional 08/2022 07325-Szkpvtol Plate Each Additional 47006-Ookzlhcn Plate Each Additional 07/2022 23474-Ajhywfxf Plate Each Additional 00207-Udgpjmgi Plate Each Additional 02925-Aqfagsxd Plate Each Additional 60910-Qcjfqgfk Plate Each Additional 77579-PQEF SKIN LESIONS, OVER 4 11/08/19 49344-ROWN SKIN LESIONS, OVER 4 01/24/20 91676-BOIO SKIN LESIONS, OVER 4 06/16/19 75773-AGEA SKIN LESIONS, OVER 4 01/20/20 74631-ZGZY SKIN LESIONS, OVER 4 11/11/19 84962-DJWD SKIN LESIONS, OVER 4 08/30/19 54251-RGLH SKIN LESIONS, OVER 4 02/18/20 21 49645-VYKW SKIN LESIONS, OVER 4 12/03/19 83336-BCVY SKIN LESIONS, OVER 4 09/30/19 21 82287-JFPJ SKIN LESIONS, OVER 4 07/16/19 75160-XNVI SKIN LESIONS, OVER 4 04/05/20 58080-ZLTO SKIN LESIONS, OVER 4 06/15/19 61185-NQRI SKIN LESIONS, OVER 4 08/25/19 06920-EYUS SKIN LESIONS, OVER 4 11/17/19 23 02233-KTTS SKIN LESIONS, OVER 4 01/26/20 53471-HSMI SKIN LESIONS, OVER 4 04/11/20 30483-NYWG SKIN LESIONS, OVER 4 06/27/19 24 13639-CSCA SKIN LESIONS, OVER 4 08/30/19 35329-ARNH SKIN LESIONS, OVER 4 03/21/20 17 33399-SQDA SKIN LESIONS, OVER 4 01/04/20 17 92880-HAFI SKIN LESIONS, OVER 4 10/26/19 18 60781-UWFI SKIN LESIONS, OVER 4 08/07/19 18 44538-FVYQ SKIN LESIONS, OVER 4 05/30/19 18 02778-LQXV SKIN LESIONS, OVER 4 11/02/19 17 47463-HKZU SKIN LESIONS, OVER 4 06/14/19 17 85074-SCNA SKIN LESIONS, OVER 4 04/05/20 16 12502-ROTO SKIN LESIONS, OVER 4 08/24/19 17 99669-BUDA SKIN LESIONS, OVER 4 01/24/20 16 18595-GORS SKIN LESIONS, OVER 4 11/15/19 16 68982-ZAZI SKIN LESIONS, OVER 4 08/16/19 16 18902-JIAM SKIN LESIONS, OVER 4 05/06/19 21 63542-BDJD SKIN LESIONS, OVER 4 12/18/19 20 07930-AJBE SKIN LESIONS, OVER 4 08/27/19 18922-GXNY SKIN LESIONS, OVER 4 04/03/20 01590-UZIN SKIN LESIONS, OVER 4 06/16/19 20 80891-NFMO SKIN LESIONS, OVER 4 01/08/20 18 70848-HJJI SKIN LESIONS, OVER 4 06/13/19 19 30759-XHZH SKIN LESIONS, OVER 4 08/15/19 17679-CYGI SKIN LESIONS, OVER 4 03/20/20 18 63858-MDBX SKIN LESIONS, OVER 4 06/27/20 19 39701-VCXI SKIN LESIONS, OVER 4 01/17/20 19 I7262-QLGBMXNR DYSTROPHIC NAILS ANY # X7458-JTZCEYGW DYSTROPHIC NAILS ANY # L0627-NEEAVCPV DYSTROPHIC NAILS ANY # A9980-ZBAAHDTK DYSTROPHIC NAILS ANY # V0201-LUEPOEPN DYSTROPHIC NAILS ANY # H3277-INXILXRY DYSTROPHIC NAILS ANY # X7084-ZXHBWKYS DYSTROPHIC NAILS ANY # Z5232-HKKMZLDB DYSTROPHIC NAILS ANY # Next Appt Details Provider Name:Boby Chapman , 05/05/2024 01:45:00 PM, [address] [facility], [facility] [address], [place], [address], Insurance Providers Payer Name Payer Address Payer Phone Subscriber Number Group Number Insured Name Patient Relationship to Insured Coverage Start Date Coverage End Date [facility] [employer] Claims [address] [place] [id number] Jacinda Benavidez Self - patient is the insured Medical (General) History Medical History History ICD Code Anemia Anxiety Arthritis Back,Hip,and Knee pain Cataracts High blood pressure Liver disease Reflux Thyroid disorder Surgical History Surgery Date(Month/Year) gall bladder 12/11/2014 Unspecified Right Hand SX 03/13/17
--- OUTSIDE RECORDS SUMMARY | 2024-03-14 14:43 | XMS_ITS ---
Author Organization [facility] Address [address] [facility] [place] [address] Care Team Providers Care Lead Loader Name Role Phone Isaiah DURAN, [place] Primary Care Provider Boby Laguerre Unavailable [phone] Allergies Allergen (clinical drug ingredient) Drug/Non Drug Allergy documented on EMR Reaction Allergy Type Onset Date Status sennosides, MCC Senna rash and machado Drug Allergy Active Penicillin rash Drug Allergy Active REASON FOR VISIT At Risk Footcare, Painful Nail(s) aggrevated by shoes and causing difficulty standing/walking., Ingrown nail(s), Wart(s) Medications Medication SIG (Take, Route, Frequency, Duration) Notes Start Date End Date Status Flovent HFA Not-Taki ng Fluticasone Propionate Not-Taking Lidocaine Not-Taking Lisinopril Not-Takin g ProAir HFA Not-Takin g Ibuprofen Not-Taking [facility] Gentle Laxative Not-Taking Losartan Potassium N ot-Taking traMADol HCl Not-Cruz ing Azithromycin Not-Cruz ing Omeprazole 20 MG 1 tablet Orally Once a day Active Tamoxifen Citrate Ac tive Ammonium Lactate 12 % 1 application to affected area Externally to feet Twice a day for 30 days Active Orthopedic Extra Depth Shoes With Custom Heat Molded Multidensity Innersoles 1 Pair shoes with 3 Pair custom heat molded innersoles Wear Daily for 365 days 01/25/2023 Active [facility] Calcium Not-Taki ng Levothyroxine Sodium Active Mapap Active Docusate Sodium Acti ve Folic Acid Active hydroCHLOROthiazide Active amLODIPine Besylate Active Aspirin 81 MG 1 tablet Orally Once a day Active Bisacodyl Active Calcitriol 0.5 MCG 1 capsule Orally Once a day Active Carvedilol Active zzzCompression Stockings 20-30mm Hg . . . for . Active Propranolol HCl ER N ot-Taking Silver sulfADIAZINE Not-Taking Sulfamethoxazole-TMP DS Not-Taking Triamcinolone Acetonide Not-Taking Social History Tobacco Use: Social History Observation [...] user? No Vital Signs Height 5 ft 10 in in 08/30/2023 Weight 238 lbs 08/30/2023 BMI 34.15 kg/m2 08/30/2023 Procedures Procedure Date Ordered Date Performed Result Body Sit e 41541-QHUYHMC NAIL, 6 OR MORE 08/30/2023 N/A 88770-Cfah Destruction, 1-14 08/30/2023 N/A 84889-Ontetoxr Plate 08/30/2023 N/A 09560-Pcgelieg Plate Each Additional 08/30/2023 N/A 94859-MEVU SKIN LESIONS, OVER 4 08/30/2023 N/A Encounters Encounter Location Date Provider Diagnosis [facility] [address] [address] 08/30/2023 Boby Chapman Atherosclerosis of nak[place] artery of both lower extremities, with unspecified presence of clinical manifestation I70.203 ; Plantar wart B07.0 ; Tinea unguium B35.1 ; Pain in right toe(s) M79.674 ; Pain in left toe(s) M79.675 ; Ingrown nail L60.0 and Left foot pain M79.672 Assessments Encounter Date Diagnosis (ICD Code) Assessment Notes Treat ment Notes Treatment Clinical Notes 08/30/2023 Atherosclerosis of nak[place] artery of both lower extremities, with unspecified presence of clinical manifestation (ICD-10 - I70.203) 08/30/2023 Plantar wart (ICD-10 - B07.0) 08/30/2023 Tinea unguium (ICD-1 0 - B35.1) 08/30/2023 Pain in right toe(s) (ICD-10 - M79.674) 08/30/2023 Pain in left toe(s) (ICD-10 - M79.675) 08/30/2023 Ingrown nail (ICD-10 - L60.0) 08/30/2023 Left foot pain (ICD- 10 - M79.672) Plan Of Treatment Pending Test Test Name Order Date 15821-PVTNWTW NAIL, 6 OR MORE 08/30/2023 94079-Iuqz Destruction, 1-14 08/30/2023 68134-Yurkwckh Plate 08/30/2023 72219-Ujdfosuv Plate Each Additional 12/2023 81835-ZUEQ SKIN LESIONS, OVER 4 08/30/19 24 Next Appt Details Follow Up: 2 Months, Reason: Provider Name:Boby Chapman , 05/05/2024 01:45:00 PM, [address] [facility], [address], [place], [address], Procedure Notes * Category Sub-Category Detail Notes Wart Treatment Procedure Verrucae(s) were debrided to pin-point bleeding margins with sterile surgical blade, silver nitrate chemocautery applied, recomm. immune-boosting meds such as zinc, recomm. follow up with topical chemosurgical agents, Pt STILL defers any other forms of tx (96611), CONT, recomm. Wartstick 40% Salicylic acid application [...] and future surgical procedures to prevent recurrence (59571/32), CIRCULATION: Pt was advised as to the [...] as necessary. Patient chooses, no pharmaceutical tx (73438) Keratoma Treatment Parring or Cutting o f Benign Hyperkeratotic Lesion(s) 97941 ( >4 Lesions) - The Benign hyperkeratotic lesions, as described above were pared, and/or cut utilizing a sterile #15 blade, tissue nippers, and/or dremel, Q8 Progress Notes * Tommie BLANCASOB:[birth year] (77 yo F)Acc No.[id number]:08/30/2023 Progress Note Patient:?Jacinda Blancas Provider:?Boby Chapman DPM :1945???Age:77 Y???Sex:Female D ate:08/30/2023 Address:[address] [place], [place] [id number] Pcp:Truong Colon MD Subjective: * Chief Complaints: * ???At Risk FootcarePainful N ail(s) aggrevated by shoes and causing difficulty standing/walking.Ingrown nail(s)Wart(s) * HPI: ???At Risk footcare:?Pt States Last PCP Visit:?Date?06/21/2023 * ROS:?General/Constitutional:?Nausea?denies.?Vomiting?admits.?Hunger Thirst?admits.?Loss appetite?denies, denies.?Chills?denies, denies.?Fatigue?denies, denies.?Fever?denies, [...] Hand SX 03/13/17 * Hospitalization/Major Diagno stic Procedure:?No Hospitalization History. * Family History:?Mother: dece ased, diagnosed with [...] 1 tablet Orally Once a dayTamoxifen Citrate Ammonium Lactate 12 % Cream 1 application to affected area Externally to feet Twice a dayOrthopedic Extra Depth Shoes With Custom [...] Orally Once a dayTaking Tamoxifen Citrate Taking Ammonium Lactate 12 % Cream 1 application to affected area Externally to feet Twice a dayTaking Orthopedic Extra Depth Shoes With [...] Laxative Not-Taking/PRN Losartan Potassium Not-Taking/PRN traMADol HCl Not-Taking/PRN Azithromycin Not-Taking/PRN Ibuprofen Not-Taking/PRN Flovent HFA Not-Taking/PRN Fluticasone Propionate Not-Taking/PRN Lidocaine Not-Taking/PRN Lisinopril Not-Taking/PRN ProAir HFA Not-Taking/PRN Propranolol HCl ER Not-Taking/PRN Silver sulfADIAZINE Not-Taking/PRN Sulfamethoxazole-TMP DS Not-Taking/PRN Triamcinolone Acetonide Medication List reviewed and reconciled with the patient * Allergies:?Senna: rash and b urnsPenicillin: rashyes[Allergies Verified] Objective: * Vitals:?Ht: 5 ft 10 in, Wt:2 38, BMI: 34.15, Shoe size:11W, Wt-k.95 kg. * Examination: ???Vascular: ?DP PULSES:? 1, B/L.?PT PULSES:? 04, B/L.?CAPILLARY FILL TIME:? delayed, all digits, B/L.?SKIN TEMPERTURE GRADIENT OF THE LOWER EXTERMITIES:? decreased, cool to cool, proximal to distal, B/L.?HAIR GROWTH/TEXTURE/ELASTICITY/TURGOR:? decreased, B/L.?PIGMENTATION:? mottled, B/L.?EDEMA:?1/, non-pitting, without aching pain, B/L, Leg(s), Ankle(s).?CLAUDICATION:?denies, [...] , Dorsal, MTH (s), 5, B/L, Heel(s), B/L.?VERRUCA:? STILL, Reveals a Single , multi-loculated , mosaically patterned, round, raised, flat-topped, petechial bleeding papulae(s), with cauliflower appearance and interrruption of skin lines, pain to lateral compression, and size estimated at 5-6mm diameter, plantar Forefoot, LEFT.? Assessment: * Assessment: 1.?Plantar wart - B07.0 (Malka ngozi), LEFT?2.?Atherosclerosis of naknek artery of both lower extremities, with unspecified presence of clinical manifestation - I70.203?3.?Tinea unguium - B35.1?4.?Pain in right toe(s) - M79.674?5.?Pain in left toe(s) - M79.675?6.?Ingrown nail - L60.0, Medial nail border, TA, T5?7.?Left foot pain - M79.672? Plan: * Treatment: 2.?Atherosclerosis of naknek artery of both lower extremities, with unspecified presence of clinical manifestation?Procedure: 53816-YDNH SKIN LESIONS, OVER 4 3.?Tinea unguium?Procedure: 77889-OLBPCBI NAIL, 6 OR MORE 4.?Ingrown nail?Procedure: 84164-Coqyazmd Plate ?Procedure: 63098-Fgkvupcm Plate Each Additional * Procedures:?Debride Nail 6-10:?Nail debridement?Nail debridement performed extensively to reduce/remove overall nail length, girth, thickness, subungual debris, and necrotic tissue, by manual and electrical means through the use of a nail nipper and/or dremel, to more viable healthy nail plate or bed tissue 1-5. Silver nitrate used for any petechial bleeding as necessary. Patient chooses, no pharmaceutical tx (01318).?Keratoma Treatment:?Parring or Cutting of Benign Hyperkeratotic Lesion(s)?32128 ( >4 Lesions) - The Benign hyperkeratotic [...] and future surgical procedures to prevent recurrence (09095/32), CIRCULATION: Pt was advised as to the [...] STILL defers any other forms of tx (84093), CONT, recomm. Wartstick 40% Salicylic acid application under occlusion as directed, CIRCULATION: Any more invasive procedure to wart deferred due to circulation risk.? * Procedure Codes:?79099 DEBRI DE NAIL, 6 OR MORE, Modifiers: XS 75498 Avulsion Plate, Modifiers: XS , [id number] Wart Destruction, 1-14, Modifiers: XS 93519 Avulsion Plate Each Additional, Modifiers: XS , [id number] TRIM SKIN LESIONS, OVER 4, Modifiers: XS , Q8 * Follow Up:?2 Months * Images: * Sign off status: Completed Addendum: * ? true * Provider:?Boby Chapman DPM Date:?2023 Generated for Yovanny toussaint/Leah/Lois on:?03/14/2024 02:42 PM EST History and Physical Notes * HPI (History of Present Illness) Category Sub-Category Detail Notes At Risk footcare Pt States Last PCP Visit: Date: Examination Category Sub-Category Detail Notes Ingrown Nail INSPECTION: Reveals nail inc urvation, pain on palpation, groove hypertrophy, Medial nail border, TA, T5 Dermatologic SKIN FINDINGS: Skin exam reveal s Keratotic lesion(s) located at, Dorsal, PIPJ, T6, Dorsal, PIPJ, T8, SUB MTH (s), 1, Right, SUB MTH (s), 5, B/L , Dorsal, MTH (s), 5, B/L, Heel(s), B/L VERRUCA: STILL, Reveals a Sin gle [...]
[2024-03-14] MEDS: 0.9 % Sodium Chloride Flush 3 ML SYRINGE IVFLUSH ×2 (15:37→21:08)
[2024-03-14 15:56] VITALS: BP 165/73; PULSE 66; RESP 14; TEMP 36.9; O2SAT 96
[2024-03-14 19:44] VITALS: BP 154/68; PULSE 77; RESP 20; TEMP 36.4; O2SAT 94
[2024-03-14 21:07] VITALS: BP 152/70; PULSE 78
[2024-03-14] MEDS: Pregabalin 50 MG CAPSULE PO (21:07)
[2024-03-14] MEDS: Melatonin 3 MG TABLET 6 MG PO (21:10)
[2024-03-15 03:39] VITALS: BP 127/57; PULSE 67; RESP 20; TEMP 36.4; O2SAT 92
[2024-03-15] MEDS: Acetaminophen 1,000 MG/100 ML PIGGYBACK 400 MG IV (03:48)
[2024-03-15] MEDS: oxyCODONE HCl Immed Release 5 MG TABLET PO (03:52)
[2024-03-15] MEDS: Omeprazole 40 MG CAPSULE.DR PO (05:44)
[2024-03-15] MEDS: Levothyroxine Sodium 125 MCG TABLET PO (05:44)
[2024-03-15 08:00] VITALS: BP 144/65; PULSE 64; RESP 18; TEMP 36.9; O2SAT 97
[2024-03-15] MEDS: Docusate Sodium 100 MG CAPSULE PO (09:00)
[2024-03-15] MEDS: carvediloL 12.5 MG TABLET PO (09:00)
[2024-03-15] MEDS: amLODIPine Besylate 10 MG TABLET PO (09:00)
[2024-03-15] MEDS: 0.9 % Sodium Chloride Flush 3 ML SYRINGE IVFLUSH (09:00)
--- NOTE | 2024-03-15 10:49 | P.PNGS_ITS ---
Subjective Subjective Date of Service: 03/15/24 Interval history: Uneventful evening. Some incisional discomfort. Chest tube minimal output. No air leak demonstrated. Physical Exam 2 Vital Signs: Vital Signs: Last Vital Signs Temp 98.5 F 03/15/24 08:00 Pulse 64 03/15/24 08:00 Resp 18 03/15/24 08:00 BP 144/65 H 03/15/24 08:00 Pulse Ox 97 03/15/24 08:00 O2 Del Method Nasal Cannula 03/15/24 08:00 O2 Flow Rate 2.0 03/15/24 08:00 BMI result Body Mass Index 36.3 Chest: Other: Dressings all clean dry and intact. Chest tube uneventfully removed with occlusive dressing. Well tolerated. Objective Data Active Medications Amlodipine Besylate (Amlodipine Besylate 10 Mg Tablet) 10 mg PO DAILY [facility]; Protocol Last Admin: 03/15/24 09:00 Dose: 10 mg Documented By: NIMCO Calcium Carbonate (Calcium Carbonate 750 Mg Tab.Chew) 750 mg PO Q4H PRN PRN Reason: Heartburn Carvedilol (Carvedilol 12.5 Mg Tablet) 12.5 mg PO BID [facility]; Protocol Last Admin: 03/15/24 09:00 Dose: 12.5 mg Documented By: NIMCO Docusate Sodium (Docusate Sodium 100 Mg Capsule) 100 mg PO BID [facility] Last Admin: 03/15/24 09:00 Dose: 100 mg Documented By: NIMCO Hydromorphone HCl (Hydromorphone Hcl 0.5 Mg/0.5 Ml Syringe) 0.5 mg IVPUSH Q4H PRN; Protocol PRN Reason: Pain, Severe (Pain Scale 7-10) Last Admin: 03/14/24 16:08 Dose: 0.5 mg Documented By: WENDY Acetaminophen (Ofirmev) 1,000 mg in 100 mls @ 400 mls/hr IV Q6H [facility] Last Infusion: 03/15/24 04:06 Dose: Infused Documented By: DEENA Levothyroxine Sodium (Levothyroxine Sodium 125 Mcg Tablet) 125 mcg PO DAILY@0600 [facility] Last Admin: 03/15/24 05:44 Dose: 125 mcg Documented By: DEENA Magnesium Hydroxide (Milk Of Magnesia 30 Ml Oral.Susp) 30 ml PO DAILY PRN PRN Reason: Constipation Melatonin (Melatonin 3 Mg Tablet) 6 mg PO BEDTIME PRN PRN Reason: Insomnia Last Admin: 03/14/24 21:10 Dose: 6 mg Documented By: DEENA Omeprazole (Omeprazole 40 Mg Capsule.) 40 mg PO DAILY@0630 [facility] Last Admin: 03/15/24 05:44 Dose: 40 mg Documented By: DEENA Ondansetron HCl (Ondansetron Hcl 4 Mg/2 Ml Vial) 4 mg IVPUSH Q6H PRN PRN Reason: Nausea and Vomiting Oxycodone HCl (Oxycodone Hcl Immed Release 5 Mg Tablet) 5 mg PO Q4H PRN PRN Reason: Pain, Moderate(Pain Scale 4-6) Last Admin: 03/15/24 03:52 Dose: 5 mg Documented By: DEENA Pregabalin (Pregabalin 50 Mg Capsule) 50 mg PO BEDTIME [facility] Last Admin: 03/14/24 21:07 Dose: 50 mg Documented By: DEENA Sodium Chloride (0.9 % Sodium Chloride Flush 3 Ml Syringe) 3 ml IVFLUSH [facility] Last Admin: 03/15/24 09:00 Dose: 3 ml Documented By: WILLISK [facility] 03/14/24 05:34 03/14/24 05:34 Procedures Date of Service Date of Service: 03/15/24 Progress Note: A&P Assessment and plan (1) S/P thymectomy: Status: Acute Plan Post chest tube removal x-ray pending. If all goes well, plan to discharge patient home. I call the patient's daughter and also discussed discharge instructions with her. All questions answered. Time Spent With Patient Time: Total time managing care of this patient today ____ minutes. Quality Stroke Does the patient have a stroke diagnosis?: No VTE Prior VTE?: No VTE Risk Level:: Surgical - low VTE Device Contraindication: N/A - Device Ordered VTE Drug Contraindication: Treatment Not Indicated
--- NOTE | 2024-03-15 12:13 | P.F2F_ITS ---
Service Date Service Date: 03/15/24 Encounter Date of encounter: 03/15/24 Reasons for Services Signs and symptoms assessed: incisional pain, incision appearance, chest tube removal, PO tolerance Reason for prison: wound care and postoperative assessment and/or care Homebound: Leaving the home is medically contraindicated at this time without the asist of a device and/or another person due th the listed conditions above and below. Reason homebound: weakness related to hospital stay and unable to drive Homebound supporting statement: Ms. Blancas had left VATs mediastinal mass excision. her chest tube was removed 03/15. She will need VNA services for every other day dressing changes with xeroform, 4x4 dressing and tape. Certification: Based on the above findings, I certify that this patient is confined to the home and needs intermittent prison care, physical therapy and/or speech therapy, or continues to need occupational therapy. The patient is under my care, and I have initiated the establishment of the plan of care. The patient will be followed by a physician who will periodically review the plan of care. Time Spent With Patient Time: Total time managing care of this patient today ____ minutes.
--- NOTE | 2024-03-15 12:57 | PM.DS ---
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 Her postoperative course has been exemplary. He has been afebrile stable vital signs. She had chest tube which was uneventfully removed on postoperative day 2. Postprocedure x-ray was within normal limits. Patient was a small effusion which is expected postoperatively. Her incisions were all clean dry and intact. She is tolerating a diet. Having regular bowel habits. She is ambulating with minimal assistance. Current plan is discharge patient home with follow-up with me in a proximally 1 week's time. She had has been given discharge instructions. Patient will also have VNA services. I spoke with her daughter and reviewed discharge instructions with her as well. All questions answered. Status at Discharge Functional status at discharge: independent ambulation Overall status at discharge: patient is progressing back to baseline Time Attestation Discharge Coordination Time (in mins): 35 Quality: Safe Use of Opioids Does Pt have an Active Cancer Diagnosis on the Problem List?: No Quality: Stroke Does the patient have a stroke diagnosis?: No Physical Exam Vital Signs: Vital Signs: Last Vital Signs Temp 98.5 F 03/15/24 08:00 Pulse 64 03/15/24 08:00 Resp 18 03/15/24 08:00 BP 144/65 H 03/15/24 08:00 Pulse Ox 97 03/15/24 08:00 O2 Del Method Nasal Cannula 03/15/24 08:00 O2 Flow Rate 2.0 03/15/24 08:00 BMI result Body Mass Index 36.3 Chest: Other: Chest breath sounds bilaterally. Incisions clean dry and intact. Chest tube site clean dry and intact DS: Data Data Completed and Pending Pending studies at discharge: Pending at discharge 03/13/24 09:46 Surgical [PTH] Stat Discharge Plan Discharge Anticipated Discharge Date/Time: 03/15/24 11:52 Patient Disposition: Home Health Service Discharge Diagnosis: mediastinal mass, s/p VATs Referrals: Anahi TERRELL [Outside] Truong Colon MD [Primary Care Provider] - 1 Week Carlos Enrique Membreno MD [Physician] - 1 Week Discharge Medications: New oxycodone 5 mg tablet 5 mg PO Q4H PRN (Reason: pain (scale score 7-10)) Qty: 24 0RF Rx Instructions: Partial Fill upon patient request. Continued (DME) Commode See Rx Instructions .Route .MEDSUPPLY Qty: 1 0RF Rx Instructions: As directed (DME) DISPOSABLE GLOVES - LARGE (1 box/month) LARGE See Rx Instructions .Route .MEDSUPPLY Qty: 1 5RF Rx Instructions: Use as directed (DME) DISPOSABLE BED PADS See Rx Instructions .Route .MEDSUPPLY Qty: 30 5RF Rx Instructions: Use as directed ONCE A DAY amlodipine 10 mg tablet 10 mg PO DAILY Qty: 90 3RF carvedilol 12.5 mg tablet 12.5 mg PO BID 90 Days Qty: 180 3RF docusate sodium 100 mg capsule 100 mg PO DAILY PRN (Reason: for constipation) Qty: 90 0RF bisacodyl 5 mg tablet,delayed release (DR/EC) 5 mg PO BEDTIME 90 Days Qty: 90 1RF omeprazole 40 mg capsule,delayed release(DR/EC) 40 mg PO DAILY@0630 Rx Instructions: TAKE 1 CAPSULE BY MOUTH EVERY DAY levothyroxine 125 mcg tablet 125 mcg PO DAILY@0600 (DME) FEMININE PADS See Rx Instructions .Route .MEDSUPPLY Qty: 6 12RF Rx Instructions: As directed (DME) MEDICATED INCONTINENCE WIPES See Rx Instructions .Route .MEDSUPPLY Qty: 100 12RF Rx Instructions: As directed multivitamin Tablet 1 tab PO DAILY calcitriol 0.5 mcg capsule 1 mcg PO WE@1645 Rx Instructions: 1 mcg orally weekly; administer after dialysis on dialysis days (DME) cane Device See Rx Instructions .Route Qty: 1 0RF Rx Instructions: As directed - use when walking pregabalin 50 mg capsule 50 mg PO BEDTIME 90 Days Qty: 90 1RF (DME) ROLLATOR See Rx Instructions .Route .MEDSUPPLY Qty: 1 0RF Rx Instructions: As directed Discharge Orders: Discharge Order (Routine); Ordered 03/15/24 Ordered By: Carlos Enrique Membreno Diet: Advance to usual diet Activity on Discharge: No heavy lifting Stand Alone Forms: Patient Portal Discharge page Print Language: Belarusian Activity Restrictions/Additional Instructions: Apply an ice pack for short intervals (20 minutes on, followed by at least 20 minutes off) for the first 2 days. Do not apply heat. Do not use creams, lotions, or topical antibiotics. These can cause infection or allergic reaction. Ok to shower 48 hours after your surgery. You have steri strips (small white cloth strips) covering your incision- these will fall off ~1 week. Xeroform and 4x4 to chest tube site, change every other day. Follow up in office with Dr. Membreno in 1 week. ([phone]) No heavy lifting (>10lbs) or strenuous activity! Call Your Doctor If: -Your temperature exceeds 101.5? F -You experience excessive pain or swelling -You have an unexpected reaction to medication -You have excessive bleeding -You experience continued vomiting/nausea -Your incision begins to separate -Your incision shows signs of infection such as increased redness, swelling, excessive pain, drainage (light blood or clear fluid is normal) or heat Care Plan Goals: Return to baseline health and resume normal activities following recovery period. Health Concerns: mediastinal mass CKD3 HTN Plan of Treatment: s/p VATs excision of mediastinal mass Assessment: Doing well post op.
--- NOTE | 2024-03-15 14:02 | MHC.CM.PN ---
PT TO DC HOME TODAY WITH [facility] FOR DRESSING CHANGES [facility] WILL PROVIDE SOC TOMORROW AND THEN SEE PT EVERY OTHER DAY SURGEON AWARE AND IN AGREEMENT WITH PLAN FAMILY PROVIDING TRANSPORT
== END 2024-03-15 13:44 | disposition home health service (06) | DRG 165 ==
LOC: HO.SSSA 10:39 → HO.S3 12:22
PROVIDERS: Pathology Anatomic Pathology & Clinical Pathology; Physician Assistant Surgical; Admitting Provider Surgery; PCP Internal Medicine; Visit Provider Surgery
PROC: 07TM4ZZ Resection of Thymus, Percutaneous Endoscopic Approach (ICD-10-PCS; principal; 2024-03-13 07:30)
DX: J98.59 Other diseases of mediastinum, not elsewhere classified (principal); D49.89 Neoplasm of unspecified behavior of other specified sites; N18.32 Chronic kidney disease, stage 3b; K21.9 Gastro-esophageal reflux disease without esophagitis; I49.1 Atrial premature depolarization; Z79.890 Hormone replacement therapy; Z79.899 Other long term (current) drug therapy
CPT/HCPCS: 36415; 71045; 80048; 85025; 86850; 86900; 86901; 86923; 88184; 88185; 88305; 88329; 93005; A7041; C9290; J0131; J0736; J1171; J1596; J2003; J2598; J2704; J2795; J3010; J7120

== ENCOUNTER → 2024-03-13 10:33 | Outpatient (BNV) | payer OTHER, SELFPAY | PROVIDERS: Admitting Provider Surgery; PCP Internal Medicine; Visit Provider Physician Assistant Surgical | DX: J98.59 Other diseases of mediastinum, not elsewhere classified (principal); Z09 Encounter for follow-up examination after completed treatment for conditions other than malignant neoplasm | CPT/HCPCS: 32662; 99024; G0180 ==

== ENCOUNTER → 2024-03-13 10:33 | Outpatient (BNV) | payer OTHER, SELFPAY | PROVIDERS: Admitting Provider Surgery; PCP Internal Medicine; Visit Provider Physician Assistant | DX: R07.9 Chest pain, unspecified (principal); N18.30 Chronic kidney disease, stage 3 unspecified; Z90.89 Acquired absence of other organs; E03.9 Hypothyroidism, unspecified | CPT/HCPCS: 99222 ==

== ENCOUNTER 2024-03-17 10:53 | Emergency (ER) | payer OTHER, SELFPAY ==
--- NOTE | ~2024-03-17 | XR_ITS ---
EXAMINATION: XR CHEST CLINICAL INFORMATION: Shortness of breath. COMPARISON: 03/15/2024 TECHNIQUE: AP upright portable chest of 03/17/2024 11:39 AM. FINDINGS: Tiny left apical pneumothorax redemonstrated. Persistent cjhnpzty-up-[id number] left pleural effusion with associated consolidation. Cardiomediastinal silhouette difficult to evaluate due to the persistent effusion/consolidation. No significant right pleural effusion appreciated. XR/XR chest 1V IMPRESSION: Tiny left apical pneumothorax redemonstrated. Persistent drapqred-eq-cudjb left pleural effusion with associated consolidation. This study was presented today March 17, 2024 for interpretation. Stat results provided at this time as requested by referring provider. Electronically signed by: Rica Odonnell MD 03/17/2024 01:14 PM ERIC MYRICK
[2024-03-17 10:57] VITALS: BP 126/45; PULSE 72; RESP 18; TEMP 36.6; O2SAT 95; BMI 33.9
--- NOTE | 2024-03-17 11:00 | ECG_ITS ---
Test Reason : SOB Blood Pressure : / mmHG Vent. Rate : 067 BPM Atrial Rate : 067 BPM P-R Int : 176 ms QRS Dur : 106 ms QT Int : 400 ms P-R-T Axes : 065 -38 046 degrees QTc Int : 422 ms Normal sinus rhythm with sinus arrhythmia Left axis deviation Minimal voltage criteria for LVH, may be normal variant ( Amaury product ) Nonspecific T wave abnormality Abnormal ECG When compared with ECG of 28-FEB-2024 11:18, No significant change was found Referred By: Generic ED Physician Electronically Signed By:ANTONIO MEHTA
[2024-03-17 11:49] VITALS: BP 127/52; PULSE 66; RESP 14; O2SAT 93
[2024-03-17 11:57] LABS: MANUAL DIFF FLAG NO
[2024-03-17 11:59] LABS: Basophils Percent Auto 0.3 % (0-2); Eosinophils Absolute Auto 0.2 X10*3/uL (0.0-0.4); Eosinophils Percent Auto 3.2 % (0-4); Hematocrit 32.2 % (37.0-47.0); Hemoglobin 10.4 g/dl (12.0-16.0); Imm Gran Abs Auto 0.03 X10*3/uL (0.00-0.03); Imm Gran Pct Auto 0.5 % (0.0-0.4); Mean Corpuscular HGB Conc 32.3 g/dl (31.0-35.0); Mean Corpuscular Hemoglobin 29.3 pg (27.0-33.0); Mean Corpuscular Volume 90.7 fL (80.0-98.0); Mean Platelet Volume 9.6 fL (9.4-12.3); Monocytes Absolute Auto 0.5 X10*3/uL (0.1-1.2); Monocytes Percent Auto 8.5 % (2-11); Neutrophils Absolute Auto 4.3 x10*3/uL (2.0-8.3); Neutrophils Percent Auto 71.5 % (45-73); Platelet Count 199 X10*3/uL (160-400); Red Blood Count 3.55 X10*6/uL (4.20-5.50); Red Cell Distribution Width 14.3 % (11.0-16.0)
[2024-03-17 12:15] LABS: Anion Gap 12 (12-20); Blood Urea Nitrogen 18 mg/dL (9-16); Calcium 9.6 mg/dL (8.4-10.2); Carbon Dioxide 27 mmol/L (22-29); Chloride 104 mmol/L (96-108); Creatinine Clr Calc Pharmacy 55.5; Estimated Glomerular Filt Rate 49; Glucose Random 105 mg/dL (60-115); Potassium 4.7 mmol/L (3.3-5.1); Sodium 138 mmol/L (135-145)
[2024-03-17 12:23] LABS: Troponin-I High Sensitivity 27.1 ng/L (<3.5-17.0)
--- NOTE | 2024-03-17 12:33 | ED_ITS ---
HPI - General Adult General Chief complaint: Dyspnea Stated complaint: CP Diff Beathing Lung Surgery 03/13/24 Time Seen by Provider: 03/17/24 12:02 Source: patient and family Mode of arrival: ambulatory Limitations: no limitations History of Present Illness ED Provider: Dr. Taylor Rawls HPI narrative: Patient comes to the emergency room complaining of chest pain and shortness of breath with coughing. 2 days ago patient was discharged from the hospital, patient was here seen by thoracic surgery for an elective thorascopic surgery of anterior mediastinal mass/thymectomy. Patient states that before she left the hospital, patient had the same symptoms that she is presenting today. Patient states that when she walks she feels well, it is just when she coughs that she feels uncomfortable. Patient states that the surgical wounds are healing well. Denies any infection or drainage. patient states that she is taking Tylenol and oxycodone for pain control, believes it is not working well. Related Data Home Medications ?Medication ?Instructions ?Recorded ?Confirmed multivitamin 1 tab PO DAILY 11/15/20 03/13/24 calcitriol 0.5 mcg capsule 1 mcg PO WE@1645 01/10/23 03/13/24 levothyroxine 125 mcg tablet 125 mcg PO DAILY@0600 03/13/24 03/13/24 omeprazole 40 mg capsule,delayed 40 mg PO DAILY@0630 03/13/24 03/13/24 release Previous Rx's ?Medication ?Instructions ?Recorded Commode #1 ea 05/11/22 cane #1 ea 02/01/23 DISPOSABLE BED PADS #30 ea 07/12/23 DISPOSABLE GLOVES - LARGE (1 #1 ea 07/12/23 box/month) FEMININE PADS #6 ea 10/01/23 MEDICATED INCONTINENCE WIPES #100 ea 10/01/23 amlodipine 10 mg tablet 10 mg PO DAILY #90 tabs 11/08/23 carvedilol 12.5 mg tablet 12.5 mg PO BID 90 days #180 tabs 11/27/23 ROLLATOR #1 ea 02/04/24 docusate sodium 100 mg capsule 100 mg PO DAILY PRN for 02/09/24 constipation #90 caps pregabalin 50 mg capsule 50 mg PO BEDTIME 90 days #90 caps 02/19/24 bisacodyl 5 mg tablet,delayed 5 mg PO BEDTIME 90 days #90 tabs 02/24/24 release oxycodone 5 mg tablet 5 mg PO Q4H PRN pain (scale score 03/14/24 7-10) #24 tabs azithromycin 250 mg tablet 250 mg PO DAILY 4 days #4 tabs 03/17/24 cefuroxime axetil 500 mg tablet 500 mg PO BID #9 tabs 03/17/24 Allergies Allergy/AdvReac Type Severity Reaction Status Date / Time Penicillins [PENICILLINS] Allergy Intermediate rash Verified 03/17/24 10:57 senna Allergy Intermediate rash Verified 03/17/24 10:57 Review of Systems 2 Review of Systems: Constitutional : No Weight loss, No Fever, No Chills, No Night Sweats, No Fatigue, No Malaise ENT/Mouth : No Hearing loss, No Ear Pain, No Nasal Congestion, No Sinus Pain, No Hoarseness, No sore throat, No Rhinorrhea, No Swallowing Difficulty Eyes: No Eye Pain, No Swelling, No Redness, No Foreign Body, No Discharge, No Vision Changes Cardiovascular : No Chest Pain, No SOB, No Dyspnea on Exertion, No Orthopnea, No Edema, No Palpitations Respiratory : complaining of left-sided chest pain and shortness of breath only with coughing Gastrointestinal : No Nausea, No Vomiting, No Diarrhea, No Constipation, No abdominal Pain, No Hematochezia, No Melena Genitourinary : no irregular bleeding, No Dysuria, No Urinary Frequency, No Hematuria, No Urinary Incontinence, No Urgency, No Flank Pain, No Urinary Flow Changes, No Hesitancy Musculoskeletal : No joint pain, No Myalgias, No Joint Swelling Skin : No Skin Lesions, No rash Neuro : No Weakness, No Numbness, No Paresthesias, No Loss of Consciousness, No Dizziness, No Headache Psych : No Anxiety/Panic, No Depression, No SI/HI/AH/VH, No Social Issues, Heme/Lymph: No Bruising, No Bleeding,No Lymphadenopathy Endocrine : No Polyuria, No Polydipsia, No Temperature Intolerance PMFSH Past Medical History Medical History Ambulates with cane Osteoarthritis Difficulty swallowing Balance problem Osteoarthritis of right knee BPV (benign positional vertigo) Gait instability Cervicogenic headache Cervicalgia Vertigo Chronic kidney disease, stage III (moderate) Obesity (BMI 30-39.9) Gastritis Benign essential hypertension GERD without esophagitis Acquired hypothyroidism Constipation Lumbar spondylosis Post laminectomy syndrome Connective tissue disease CKD (chronic kidney disease) Interstitial lung disease Osteopenia COVID-19 vaccine series completed PAC (premature atrial contraction) Sjogrens syndrome Hypothyroid Breast cancer Osteoarthritis Raynauds disease SAMARA positive Surgical History Hx of colonoscopy Hx of tubal ligation H/O varicose vein stripping History of cataract surgery H/O lumpectomy Hx of cholecystectomy History of back surgery Family History Family History Father Emphysema of lung Cancer Brother Emphysema of lung Mother Bone cancer Son PONV (postoperative nausea and vomiting) Other Arthritis Social History Social History Household Members: Significant Other and Children Housing: Apartment Are you a primary career resource specialist to a significant other at home: No Do you presently have visiting nurse or other home services: No Alcohol intake: former Comment: pt reports this is her baseline pain Patient Tobacco Use Status: Never used Tobacco Smoked in Last 30 Days: No e-Cigarette/Vaping Use: Never Used Second Hand Smoke Exposure: No Use of substances other than those prescribed or required for medical reasons: No Advance Directives: No Advance Directives Information Provided: Yes Do you have a plan to hurt others: No Plan service: No Current occupational status: retired Cognitive needs: No Hearing needs: No Vision needs: Yes (Glasses) Physical Exam ED Vital Signs: Vital Signs - 24 hr 03/17/24 10:57 03/17/24 11:49 Temperature 97.9 F Pulse Rate 72 66 Respiratory Rate 18 14 Blood Pressure 126/45 L 127/52 L Pulse Oximetry 95 93 Oxygen Delivery Method Room Air Room Air BMI result Body Mass Index 33.9 Const Other: Appearance: Alert. Oriented X3. No acute distress. Eyes: Pupils equal, round and reactive to light. ENT: Pharynx normal. Neck: Normal inspection. Neck supple. No lymph nodes noted. No crepitus CVS: Normal heart rate and rhythm. Pulses normal. Normal S1 and S2 Respiratory: No respiratory distress. Breath sounds normal. No Wheezing. No rales Abdomen: Soft and nontender. No rigidity. No distention. Skin: Skin warm and dry. Normal skin color. Normal skin turgor. surgical sites look clean, ecchymosis in the sternal area and under the left breast. no drainage Extremities: No lower extremity edema. No Lacerations. No Rash Neuro: Oriented X 3. No motor deficit. No sensory deficit. Moving all extremities. No slurred speech. CN 2 through 12 grossly intact Psych: calm, cooperative, normal affect Medical Decision Making Medical Decision Making [facility] Narrative: my interpretation of labs: Patient's hematology at baseline, chemistry within normal limits, troponin slightly bumped at 27.1 - my interpretation of chest x-ray, there is a moderate left-sided pleural effusion. seems a bit more prominent than previous x-ray on March 15. Radiology report pending. - Patient's vitals within normal limits, oxygen saturation 93% on room air. - with an ambulation trial, patient's oxygen saturation remained 91% and above, no chest pain or shortness of breath - chest x-ray report: Tiny left apical pneumothorax we demonstrated, persistent moderate to large left pleural effusion with associated consolidation. - Patient is not requiring additional supplemental oxygen, no O2 desaturations. Patient was given p.o. azithromycin and cefuroxime in the emergency room. - patient's vitals stable, no episodes of hypotension, no fever no tachycardia, sepsis not suspected - I discussed the patient with Dr. Membreno from thoracic surgery we evaluated the patient at bedside. Patient looks fairly well, can return home. Patient has a follow-up appointment pending. - Was discussed with the patient that if she has any new or worsening symptoms, to return to the emergency room. Differential Diagnosis Differential Diagnoses: The differential diagnosis associated with the presentation includes ( Pleural effusion, pneumonia, pneumothorax) Admission/Observation Consideration of admission/observation: Escalation of care including admission/observation considered Consult Healthcare Provider Management of the patient was discussed with: It Help Desk Manager Lab Data [facility] Lab Attestation statement: I reviewed the patient's lab results. 03/17/24 11:53 03/17/24 11:53 Labs: Lab Results 03/17/24 Range/Units 11:53 WBC 6.0 (4.8-10.8) X10*3/uL RBC 3.55 L (4.20-5.50) X10*6/uL Hgb 10.4 L (12.0-16.0) g/dl Hct 32.2 L (37.0-47.0) % MCV 90.7 (80.0-98.0) fL MCH 29.3 (27.0-33.0) pg MCHC 32.3 (31.0-35.0) g/dl RDW 14.3 (11.0-16.0) % Plt Count 199 D (160-400) X10*3/uL MPV 9.6 (9.4-12.3) fL Immature Gran % (Auto) 0.5 H (0.0-0.4) % Neut % (Auto) 71.5 (45-73) % Lymph % (Auto) 16.0 L (20-40) % Sterling % (Auto) 8.5 (2-11) % Eos % (Auto) 3.2 (0-4) % Baso % (Auto) 0.3 (0-2) % Lymph # (Auto) 1.0 L (1.2-4.9) X10*3/uL Sterling # (Auto) 0.5 (0.1-1.2) X10*3/uL Eos # (Auto) 0.2 (0.0-0.4) X10*3/uL Baso # (Auto) 0.0 (0.0-0.2) X10*3/uL Abs Immat Gran (auto) 0.03 (0.00-0.03) X10*3/uL Absolute Neuts (auto) 4.3 (2.0-8.3) x10*3/uL Absolute Nucleated RBC 0.000 (0.0-0.012) X10*3/uL Nucleated RBC % (auto) 0.0 (0.0-0.2) /100WBC Sodium 138 (135-145) mmol/L Potassium 4.7 (3.3-5.1) mmol/L Chloride 104 (96-108) mmol/L Carbon Dioxide 27 (22-29) mmol/L Anion Gap 12 (12-20) BUN 18 H (9-16) mg/dL Creatinine 1.07 (0.5-1.4) mg/dL Estim Creat Clear Calc 55.5 Estimated GFR 49 Random Glucose 105 (60-115) mg/dL Calcium 9.6 D (8.4-10.2) mg/dL Troponin I High Sens 27.1 H (<3.5-17.0) ng/L Independent Interpretation I performed an independent interpretation of an: Plain X-Ray Interpretation: Tiny left apical pneumothorax redemonstrated. Persistent faceifbm-ep-qwpil left pleural effusion with associated consolidation. Cardiomediastinal silhouette difficult to evaluate due to the persistent effusion/consolidation. No significant right pleural effusion appreciated. XR/XR chest 1V IMPRESSION: Tiny left apical pneumothorax redemonstrated. Persistent amnolrmn-wr-sknda left pleural effusion with associated consolidation. This study was presented today March 17, 2024 for interpretation. Stat results provided at this time as requested by referring provider. Critical Care Time Critical Care Time Critical Care Time: Yes Total Critical Care Time: 45 Attestation: I have personally provided critical care time. Time includes review of lab data, radiology results, discussion with consultants, and monitoring for potential decompensation. Intervention performed as documented. Discharge Plan Discharge Clinical Impression: Pleural effusion, Pneumonia Patient Disposition: Home, Self-Care Instructions: Pleural Effusion (ED), Pneumonia (ED) Additional Instructions: Please follow-up with your primary care physician tomorrow. If you have any worsening or new symptoms, please return to the emergency room or call 911 Prescriptions: New cefuroxime axetil 500 mg tablet 500 mg PO BID Qty: 9 0RF azithromycin 250 mg tablet 250 mg PO DAILY 4 Days Qty: 4 0RF Rx Instructions: start on day 2 of therapy No Action (DME) Commode See Rx Instructions .Route .MEDSUPPLY Qty: 1 0RF Rx Instructions: As directed (DME) DISPOSABLE GLOVES - LARGE (1 box/month) LARGE See Rx Instructions .Route .MEDSUPPLY Qty: 1 5RF Rx Instructions: Use as directed (DME) DISPOSABLE BED PADS See Rx Instructions .Route .MEDSUPPLY Qty: 30 5RF Rx Instructions: Use as directed ONCE A DAY amlodipine 10 mg tablet 10 mg PO DAILY Qty: 90 3RF carvedilol 12.5 mg tablet 12.5 mg PO BID 90 Days Qty: 180 3RF docusate sodium 100 mg capsule 100 mg PO DAILY PRN (Reason: for constipation) Qty: 90 0RF bisacodyl 5 mg tablet,delayed release (DR/EC) 5 mg PO BEDTIME 90 Days Qty: 90 1RF omeprazole 40 mg capsule,delayed release(DR/EC) 40 mg PO DAILY@0630 Rx Instructions: TAKE 1 CAPSULE BY MOUTH EVERY DAY levothyroxine 125 mcg tablet 125 mcg PO DAILY@0600 oxycodone 5 mg tablet 5 mg PO Q4H PRN (Reason: pain (scale score 7-10)) Qty: 24 0RF Rx Instructions: Partial Fill upon patient request. (DME) FEMININE PADS See Rx Instructions .Route .MEDSUPPLY Qty: 6 12RF Rx Instructions: As directed (DME) MEDICATED INCONTINENCE WIPES See Rx Instructions .Route .MEDSUPPLY Qty: 100 12RF Rx Instructions: As directed multivitamin Tablet 1 tab PO DAILY calcitriol 0.5 mcg capsule 1 mcg PO WE@1645 Rx Instructions: 1 mcg orally weekly; administer after dialysis on dialysis days (DME) cane Device See Rx Instructions .Route Qty: 1 0RF Rx Instructions: As directed - use when walking pregabalin 50 mg capsule 50 mg PO BEDTIME 90 Days Qty: 90 1RF (DME) ROLLATOR See Rx Instructions .Route .MEDSUPPLY Qty: 1 0RF Rx Instructions: As directed Print Language: Korean
--- NOTE | 2024-03-17 13:21 | PC.NURSE ---
Walking trial completed- sating between 95-99% on RA. No sob observed
--- NOTE | 2024-03-17 13:34 | MHC.CM.ED ---
Received notification from [facility] that patient is active with their agency. Return referral made in [facility] so they can follow for d/c needs.
[2024-03-17] MEDS: Azithromycin 500 MG TABLET PO (13:58)
[2024-03-17] MEDS: cefuroxime axetiL 500 MG TABLET PO (13:58)
[2024-03-17 14:02] VITALS: BP 127/52; PULSE 66; RESP 18; TEMP 36.6; O2SAT 98
== END 2024-03-17 14:04 | disposition home or self-care (01) ==
PROVIDERS: Emergency Provider Emergency Medicine; PCP Internal Medicine
DX: J18.9 Pneumonia, unspecified organism (principal); J90 Pleural effusion, not elsewhere classified; R05.9 Cough, unspecified; I12.9 Hypertensive chronic kidney disease with stage 1 through stage 4 chronic kidney disease, or unspecified chronic kidney disease; N18.30 Chronic kidney disease, stage 3 unspecified; Z79.899 Other long term (current) drug therapy
CPT/HCPCS: 36415; 71045; 80048; 84484; 85025; 93005; 99283; 99284

== ENCOUNTER → 2024-03-17 11:00 | Outpatient (BNV) | payer OTHER, SELFPAY | PROVIDERS: Emergency Provider Emergency Medicine; PCP Internal Medicine; Visit Provider Internal Medicine | DX: R06.02 Shortness of breath (principal); R94.31 Abnormal electrocardiogram [ECG] [EKG]; I44.4 Left anterior fascicular block | CPT/HCPCS: 93010 ==

== ENCOUNTER 2024-03-24 09:43 | Outpatient (AMB) | payer OTHER, SELFPAY ==
--- NOTE | 2024-03-24 09:44 | MHC.OFFVIS ---
Intake Visit Reasons: S/P VATS exc. anterior mediastinal mass Intake Note: Patient here s/p vats anterior mediastinal mass excision/thymectomy, bronchoscopy, pneumonolysis, intercostal nerve block with Exparel. Reports incision healing well. Patient c/o:mild pain tylenol helps. 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 Aside from incisional discomfort which is markedly improvement, patient was doing well. She has no respiratory issues. She is tolerating a diet. He is having regular bowel habits. She is slowly but steadily increasing her activity level. Pathology is benign [facility] Medical History (Updated 03/23/24 @ 00:02 by Lewis Foss) Ambulates with cane Osteoarthritis Difficulty swallowing Balance problem Osteoarthritis of right knee BPV (benign positional vertigo) Gait instability Cervicogenic headache Cervicalgia Vertigo Chronic kidney disease, stage III (moderate) Obesity (BMI 30-39.9) Gastritis Benign essential hypertension GERD without esophagitis Acquired hypothyroidism Constipation Lumbar spondylosis Post laminectomy syndrome Connective tissue disease CKD (chronic kidney disease) Interstitial lung disease Osteopenia COVID-19 vaccine series completed PAC (premature atrial contraction) Sjogrens syndrome Hypothyroid Breast cancer Osteoarthritis Raynauds disease SAMARA positive Surgical History (Updated 03/24/24 @ 09:58 by Carlos Enrique Membreno MD) 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) Hx of colonoscopy Hx of tubal ligation H/O varicose vein stripping History of cataract surgery H/O lumpectomy Hx of cholecystectomy History of back surgery Family History Father Emphysema of lung Cancer Brother Emphysema of lung Mother Bone cancer Son PONV (postoperative nausea and vomiting) Other Arthritis Social History Household Members: Significant Other and Children Housing: Apartment Are you a primary home child care provider to a significant other at home: No Do you presently have visiting nurse or other home services: No Alcohol intake: former Comment: pt reports this is her baseline pain Patient Tobacco Use Status: Never used Tobacco e-Cigarette/Vaping Use: Never Used Second Hand Smoke Exposure: No service: No Current occupational status: retired Cognitive needs: No Hearing needs: No Vision needs: Yes (Glasses) Physical Exam Chest Other: Chest breath sounds bilaterally, diminished left base. Incisions all clean dry and intact healing well Assessment & Plan Assessment & Plan (1) S/P thymectomy: Onset Date: 03/13/24 Comment: Dr. Haseeb Monaco Code(s): Z90.89 - Acquired absence of other organs Category: Surgical Plan Will obtain a chest x-ray to follow-up regarding the status of the left pleural effusion. Patient was also encouraged to follow-up with her oncologist, Dr. Knight as well and will follow-up with me p.r.n.. All questions answered. If there is an issue with the pleural effusion, patient will be contacted. Orders: Orders XR chest 2V Today Z90.89 - Acquired absence of other organs Coding Level of Care Code Global (29706) Diagnoses S/P thymectomy Z90.89
== END 2024-03-24 09:52 | disposition home or self-care (01) ==
PROVIDERS: PCP Internal Medicine; Visit Provider Surgery
DX: Z90.89 Acquired absence of other organs (principal)
CPT/HCPCS: 99024

== ENCOUNTER → 2024-03-24 09:43 | Outpatient (BNVA) | payer OTHER, SELFPAY | PROVIDERS: PCP Internal Medicine; Visit Provider Surgery | DX: J18.1 Lobar pneumonia, unspecified organism (principal); J90 Pleural effusion, not elsewhere classified; Z90.89 Acquired absence of other organs | CPT/HCPCS: 96127; 99212; 99495 ==

== ENCOUNTER 2024-03-24 16:54 | Outpatient (AMB) | payer OTHER, SELFPAY ==
--- NOTE | 2024-03-24 17:01 | MHC.PC.OV ---
Vital Signs 03/24/24 17:05 Height 5 ft 10 in Weight 233 lb BMI 33.4 BP 122/76 Blood Pressure Location Lt brachial Position Sitting Pulse 80 Pulse Source Pulse Oximeter Pulse Oximetry (%) 96 Oxygen Delivery Method Room Air Intake Visit Reasons: TCM [facility]MC removal L lung 03/13 [employer] Required: No Accompanied by: Self / Same As Patient Allergies Penicillins [PENICILLINS] Allergy (Intermediate, Verified 03/24/24 17:57) rash senna Allergy (Intermediate, Verified 03/24/24 17:57) rash Medication List - Last Reconciled 03/24/24 by Truong Colon MD amlodipine 10 mg PO DAILY bisacodyl 5 mg PO BEDTIME 90 days calcitriol 1 mcg PO WE@1645 cane As directed - use when walking carvedilol 12.5 mg PO BID 90 days [Commode As directed] [DISPOSABLE BED PADS Use as directed ONCE A DAY] [DISPOSABLE GLOVES - LARGE (1 box/month) Use as directed] docusate sodium 100 mg PO DAILY PRN [FEMININE PADS As directed] levothyroxine 125 mcg PO DAILY@0600 [MEDICATED INCONTINENCE WIPES As directed] multivitamin 1 tab PO DAILY omeprazole 40 mg PO DAILY@0630 pregabalin 50 mg PO BEDTIME 90 days [ROLLATOR As directed] Tobacco use date assessed: 03/24/24 Fall risk assessment: No Falls in past year Last assessed Fall Risk: 03/24/24 Dental Screening Dental Screen Date: 03/24/24 Did you have a dental visit in the last 12 months?: No Did you have a dental problem in the last 6 months where you did not have access to dental care?: No Was dental information given to patient?: Patient has dentist HPI TCM HMC removal L lung 03/13 HPI Details Patient comes in today for her HDF/TCM follow up visit She underwent elective thorascopic surgery for an anterior mediastinal mass/thymectomy with Dr. Membreno back on 03/13/2024 Her surgery reportedly went well and she had a relatively uncomplicated post op course except for a small pleural effusion, which was supposedly expected She was discharged home a couple of days after her surgery with instructions to follow up with her surgeon in a week's time but patient presented to the ER with symptoms of some chest pains and SOB that were more noticeable especially when she coughs She also reports feeling uncomfortable at the time of presentation to the ER Chest x-rays done at the ER revealed a moderate left-sided pleural effusion that appears to be more prominent that her x-ray findings a couple of days prior; there were also some consolidations noted suggestive of perhaps a pneumonic process Her labs came out okay with no acute abnormalities Patient at the time appears stable with oxygen saturation of around 93% on room air, with no symptoms of increasing SOB She was eventually discharged home with empiric Abx Tx including Cefuroxime 500 mg BID and Azithromycin, both for 4 to 5 days in total, and was instructed to follow up with surgery and with her PCP as scheduled in the next few days Patient states that she currently feels okay She denies any headaches or dizziness Denies any chest pains, no increased SOB No nausea/vomiting, no abdominal pain No change in bowel habits noted She was also seen earlier today by Dr. Membreno for follow up and is being sent for repeat chest x-rays to verify improvement or resolution of her pleural effusion TCM TCM Information Date of Discharge 03/17/24 Discharged From [facility] Interactive Contact Date (Reference documentation from this date) 03/18/24 [facility] Medical History Ambulates with cane Osteoarthritis Difficulty swallowing Balance problem Osteoarthritis of right knee BPV (benign positional vertigo) Gait instability Cervicogenic headache Cervicalgia Vertigo Chronic kidney disease, stage III (moderate) Obesity (BMI 30-39.9) Gastritis Benign essential hypertension GERD without esophagitis Acquired hypothyroidism Constipation Lumbar spondylosis Post laminectomy syndrome Connective tissue disease CKD (chronic kidney disease) Interstitial lung disease Osteopenia COVID-19 vaccine series completed PAC (premature atrial contraction) Sjogrens syndrome Hypothyroid Breast cancer Osteoarthritis Raynauds disease SAMARA positive Surgical History 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) Hx of colonoscopy Hx of tubal ligation H/O varicose vein stripping History of cataract surgery H/O lumpectomy Hx of cholecystectomy History of back surgery Family History Father Emphysema of lung Cancer Brother Emphysema of lung Mother Bone cancer Son PONV (postoperative nausea and vomiting) Other Arthritis Social History Household Members: Significant Other and Children Housing: Apartment Are you a primary childcare attendant to a significant other at home: No Do you presently have visiting nurse or other home services: No Alcohol intake: former Comment: pt reports this is her baseline pain Patient Tobacco Use Status: Never used Tobacco e-Cigarette/Vaping Use: Never Used Second Hand Smoke Exposure: No service: No Current occupational status: retired Cognitive needs: No Hearing needs: No Vision needs: Yes (Glasses) Questionnaire PHQ-9 Over the last 2 weeks, how often have you been bothered by any of the following problems? 1. Little interest or pleasure in doing things: not at all 2. Feeling down, depressed, or hopeless: not at all 3. Trouble falling or staying asleep, or sleeping too much: not at all 4. Feeling tired or having little energy: not at all 5. Poor appetite or overeating: not at all 6. Feeling bad about yourself - or that you are a failure or have let yourself or your family down: not at all 7. Trouble concentrating on things, such as reading the newspaper or watching television: not at all 8. Moving or speaking so slowly that other people could have noticed. Or the opposite - being so fidgety or restless that you have been moving around a lot more than usual: not at all 9. Thoughts that you would be better off or of hurting yourself in some way: not at all Total score: 0 Depression Screening Interpretation: Negative Depression Screening Done: Yes 89499 - PHQ-9 Billing: Yes Source: Developed by Drs. Timoteo Covington, Lucy Arndt, Guevara Jewell and colleagues, with an educational tere from [employer]. Thrive Questionnaire Date Thrive assessed: 03/24/24 I am a: Patient What is your living situation today?: I have a steady place to live Within the past 12 months, did the food you bought not last and you didn't have the money to get more?: Never true Within the past 12 months, did you worry whether your food would run out before you got money to buy more?: Never true Do you have trouble paying for medicines?: No Do you have trouble getting transportation to medical appointments?: No Do you have trouble paying your heating and electricity bill?: No Do you have trouble taking care of your child, family member or friend?: No Do you have trouble with day-to-day activities such as bathing, preparing meals, shopping, managing finances, etc.?: No Are you currently unemployed and looking for a job?: No Are you interested in more education?: No Please select the resources that you would like help with: None Currently or been in a relationship where the following occur: No concerns reported THRIVE Score: 0 AUDIT C Alcohol Use Questionnaire (AUDIT-C) 1. How often do you have a drink containing alcohol?: Never Total Score: 0 Score Reviewed/Action Taken: Yes MO-7 AMB Questionnaire MO-7 Date MO - 7 assessed: 03/24/24 Feeling nervous, anxious, or on edge: 0 = Not at all Not being able to stop or control worryin = Not at all Worrying too much about different things: 0 = Not at all Trouble relaxin = Not at all Being so restless that it is hard to sit still: 0 = Not at all Becoming easily annoyed or irritable: 0 = Not at all Feeling afraid as if something awful might happen: 0 = Not at all Total MO-7 score (0-4 normal; 5-9 mild; 10-14 moderate; 15-21 severe): 0 Source: Developed by Drs. Timoteo Covington, Lucy Arndt, Guevara Jewell and colleagues, with an educational tere from [employer]. Review of Systems Const Denies chills, Denies fatigue, Denies fever(s) and Denies headache(s) ENT Denies dysphagia, Denies dizziness, Denies otalgia, Denies headache(s), Denies neck pain, Denies odynophagia and Denies sore throat Card Denies chest pain, Denies irregular heart rhythm, Denies palpitations, Denies dyspnea and Denies dyspnea on exertion Resp Denies chest congestion, Denies cough, Denies dyspnea and Denies dyspnea on exertion GI Denies abdominal pain, Denies constipation, Denies dysphagia, Denies diarrhea, Denies nausea, Denies odynophagia and Denies vomiting Denies urinary frequency, Denies dysuria and Denies urinary urgency Musc Reports abnormal gait (unsteady), Reports back pain (over the lower back - chronic), Denies arthralgias and Denies neck pain Skin/Breast Denies rash Neuro Reports abnormal gait (unsteady), Denies dizziness, Denies headache(s) and Denies paresthesias Psych Denies anxiety Endo Denies fatigue and Denies palpitations Rogelio/Lymph Denies easy bruising Physical exam (Primary Care) Vital Signs: Last Vital Signs Pulse 80 03/24/24 17:05 BP 122/76 03/24/24 17:05 Pulse Ox 96 03/24/24 17:05 Oxygen Delivery Method Room Air 03/24/24 17:05 BMI result Body Mass Index 33.4 Tobacco/Smoking Status: Tobacco use Status Tobacco use date assessed 03/24/24 03/24/24 17:18 Patient Tobacco Use Status Never used Tobacco 03/24/24 17:01 e-Cigarette/Vaping Use Never Used 03/24/24 17:01 PHQ-9: PHQ-9 Score PHQ-9: Total score 0 03/24/24 21:51 Depression Screening Interpretation: Negative Thrive Assessment: Date of Thrive Assessment Date Thrive assessed 03/24/24 03/24/24 17:18 Currently or been in a relationship where the following occur: No concerns reported Const General: no acute distress and alert HENMT Throat: Yes posterior oropharynx normal and Yes tonsils normal (no TP congestion) Neck Neck: Yes no lymphadenopathy and Yes supple Thyroid: Thyroid normal Resp Auscultation: clear to auscultation bilaterally (although there is some dullness noted at the left lung base), no rales and no wheezes Cardio Rate: regular rate Rhythm: regular rhythm Heart sounds: no murmurs GI Palpation (GI): Soft to palpation and nontender Auscultation: normal bowel sounds General: Yes no CVA tenderness Back/Spine/Pelvis Back: no CVA tenderness Thoracic/Lumbar Spine: lumbar spinal tenderness (chronic) Skin Rashes: no rashes Extrem General: Yes no clubbing, cyanosis or edema Coding Level of Care Code TCM Mod MDM <= 7 Days Diagnoses Pleural effusion, left J90 Lung consolidation J18.1 S/P thymectomy Z90.89 Additional Codes PHQ-9 - 83879 - PHQ-9 Billing: Yes ([id number]) Assessment & Plan Assessment & Plan (1) Pleural effusion, left: Code(s): J90 - Pleural effusion, not elsewhere classified Category: Medical Plan: Patient apparently developed a moderate left-sided pleural effusion post-op - had elective thorascopic surgery for an anterior mediastinal mass/thymectomy with Dr. Membreno back on 03/13/2024 She currently has no significant symptoms of shortness of breath and does not appear hypoxic She will have her chest x-rays repeated tomorrow for follow-up to ensure resolution of her pleural effusion (2) Lung consolidation: Code(s): J18.1 - Lobar pneumonia, unspecified organism Category: Medical Plan: This was also noted on her recent chest x-rays and she has been started empirically on oral cefuroxime and azithromycin, which patient is still finishing up (3) S/P thymectomy: Onset Date: 03/13/24 Comment: Dr. Haseeb Monaco Code(s): Z90.89 - Acquired absence of other organs Category: Surgical Plan: Patient underwent elective thorascopic surgery for an anterior mediastinal mass/thymectomy with Dr. Membreno back on 03/13/2024 Her postop course was mostly uneventful until she recently developed a left-sided pleural effusion She was seen by surgery for follow-up earlier today and was advised to get her repeat chest x-rays done [facility] Plan Follow up as scheduled in May 2024 Orders: Orders XR chest 2V 03/24/24 Z90.89 - Acquired absence of other organs
[2024-03-24 17:05] VITALS: BP 122/76; PULSE 80; O2SAT 96; BMI 33.4
== END 2024-03-24 17:35 | disposition home or self-care (01) ==
PROVIDERS: PCP Internal Medicine; Visit Provider Internal Medicine
DX: J18.1 Lobar pneumonia, unspecified organism (principal); J90 Pleural effusion, not elsewhere classified; Z90.89 Acquired absence of other organs

== ENCOUNTER 2024-03-25 10:08 | Outpatient (REF) | payer OTHER, SELFPAY ==
--- NOTE | ~2024-03-25 | XR_ITS ---
EXAMINATION: XR CHEST CLINICAL INFORMATION: Z90.89 - Acquired absence of other organs. COMPARISON: 03/17/2024. TECHNIQUE: 2 views of the chest were obtained. FINDINGS: There is no gross pneumothorax. Persistent moderate left pleural effusion and left mid to lower lung opacity with decreased consolidative component and decreased pleural effusion. Imaged portion of cardiomediastinal silhouette appears stable. XR/XR chest 2V IMPRESSION: Persistent moderate left pleural effusion and left mid to lower lung opacity with decreased consolidative component and decreased pleural effusion. This study was presented today, March 25, 2024, for interpretation. Stat results provided at this time as requested by referring provider. Electronically signed by: Rica Odonnell MD 03/25/2024 12:46 PM [facility]
== END 2024-03-25 10:09 | disposition home or self-care (01) ==
LOC: HO.XRAY 10:08
PROVIDERS: PCP Internal Medicine; Visit Provider Internal Medicine
DX: Z90.89 Acquired absence of other organs (principal)
CPT/HCPCS: 71046

== ENCOUNTER 2024-04-02 11:09 | Outpatient (AMB) | payer OTHER, SELFPAY ==
--- NOTE | 2024-04-02 11:17 | A.OFFVIS_ITS ---
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 No complaints. Last Pap/HPV was many years ago no history of abnormal Pap smears Last Mammogram was in 07/14 [address] [facility] Last Colonoscopy was 5 years ago, the recommendation according to the patient was to repeat in 10 years, no reports available No previous screening DEXA scan PFSH Medical History Ambulates with cane Osteoarthritis Difficulty swallowing Balance problem Osteoarthritis of right knee BPV (benign positional vertigo) Gait instability Cervicogenic headache Cervicalgia Vertigo Chronic kidney disease, stage III (moderate) Obesity (BMI 30-39.9) Gastritis Benign essential hypertension GERD without esophagitis Acquired hypothyroidism Constipation Lumbar spondylosis Post laminectomy syndrome Connective tissue disease CKD (chronic kidney disease) Interstitial lung disease Osteopenia COVID-19 vaccine series completed PAC (premature atrial contraction) Sjogrens syndrome Hypothyroid Breast cancer Osteoarthritis Raynauds disease SAMARA positive Surgical History 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) Hx of colonoscopy Hx of tubal ligation H/O varicose vein stripping History of cataract surgery H/O lumpectomy Hx of cholecystectomy History of back surgery Family History Father Emphysema of lung Cancer Brother Emphysema of lung Mother Bone cancer Son PONV (postoperative nausea and vomiting) Other Arthritis Social History Household Members: Significant Other and Children Housing: Apartment Are you a primary care professionals to a significant other at home: No Do you presently have visiting nurse or other home services: No Alcohol intake: former Comment: pt reports this is her baseline pain Patient Tobacco Use Status: Never used Tobacco e-Cigarette/Vaping Use: Never Used Second Hand Smoke Exposure: No service: No Current occupational status: retired Cognitive needs: No Hearing needs: No Vision needs: Yes (Glasses) Female Reproductive History Menstrual Total pregnancies: 2 Full term: 2 Date of Mammogram: 06/25/23 (bi rad 2) Review of Systems Const All systems reviewed & are unremarkable except as noted in HPI and below Card Reports as per HPI Resp Reports as per HPI GI Reports as per HPI and Reports no additional complaints Reports as per HPI Physical Exam Vital Signs: Last Vital Signs BP 138/78 04/02/24 11:19 BMI result Body Mass Index 32.0 Const General: cooperative, healthy appearing and comfortable Chest Chest palpation & inspection: normal inspection of the chest and normal palpation of entire chest wall Breast/axilla inspection: normal inspection of the breasts and normal inspection of the axillae Breast/axilla palpation: normal palpation of the breasts, normal palpation of the axillae and no axillary lymphadenopathy Resp Effort & Inspection: normal respiratory effort Auscultation: clear to auscultation bilaterally Percussion: percussion normal Cardio Palpation: normal PMI Rate: regular rate Rhythm: regular rhythm Heart sounds: no murmurs and no rubs Peripheral pulses: Peripheral pulses 2+ throughout GI Inspection: Yes normal to inspection Palpation (GI): Soft to palpation, nontender, no guarding, not rigid and No hepatosplenomegaly present Percussion: Yes normal to percussion Auscultation: normal bowel sounds Rectal Exam - Female: deferred General: Yes bladder normal to palpation External Female Exam: No lesion Speculum Exam - Vagina: normal appearance of the vagina, normal palpation, normal vaginal discharge and not erythematous Speculum Exam - Cervix: normal appearance of the cervix and normal palpation Bimanual exam- vagina & uterus: normal bimanual exam, normal palpation, uterine size normal, bladder normal to palpation, consistency normal and normal palpation Bimanual Exam- Adnexa, other: normal adnexae, no masses and no tenderness Assessment & Plan Assessment & Plan (1) Well woman exam: Code(s): Z01.419 - Encounter for gynecological examination (general) (routine) without abnormal findings Category: Medical Plan: Co testing not indicated since the patient 's age is above 65 with no history of abnormal Pap smears last 25 years. Counseled the patient about the recommended dietary allowance of 1200 mg of Calcium & 800 IU of vitamin D. Instructions given the patient to schedule next screening Mammogram in 07/15. Will order DEXA scan . The patient was instructed to perform monthly self-breast exams and to schedule a 2 week DEXA scan follow-up appointment and an annual exam in a year; All questions answered and the patient verbalized understanding. Orders: Orders XR DEXA axial skeleton Today Z78.0 - Asymptomatic menopausal state Coding Level of Care Code New Pt Prev Care >65yr (00066) Diagnoses Well woman exam Z01.419
[2024-04-02 11:19] VITALS: BP 138/78; BMI 32.0
--- OUTSIDE RECORDS SUMMARY | 2024-04-03 01:31 | XMS_ITS ---
Author Organization [facility] [facility] Address [address] [facility] [place] [place] [address] Care Team Providers Care Gore Maker Name Role Phone Isaiah DURAN, [place] Primary Care Provider Boby Laguerre Unavailable [phone] Allergies Allergen (clinical drug ingredient) Drug/Non Drug Allergy documented on EMR Reaction Allergy Type Onset Date Status sennosides, FCI Senna rash and machado Drug Allergy Active [...] Ordered Date Performed Result Body Sit e 43915-SZPJSUS NAIL, 6 OR MORE 01/24/2024 N/A 12778-Qymp Destruction, 1-14 01/24/2024 N/A 20224-IXBN SKIN LESIONS, OVER 4 01/24/2024 N/A Encounters Encounter Location Date Provider Diagnosis [facility] [address] [address] 01/24/2024 Boby Chapman Atherosclerosis of nulato artery of both lower extremities, with unspecified presence of clinical manifestation I70.203 ; Plantar wart B07.0 ; Tinea unguium B35.1 ; Pain in right toe(s) M79.674 ; Pain in left toe(s) M79.675 ; Left foot pain M79.672 and Xerosis of skin L85.3 Assessments Encounter Date Diagnosis (ICD Code) Assessment Notes Treatment Notes Treatment Clinical Notes Section Notes 01/24/2024 Atherosclerosis of nulato artery of both lower extremities, with unspecified presence of clinical manifestation (ICD-10 - I70.203) 01/24/2024 Plantar wart (ICD-10 - B07.0) 01/24/2024 Tinea unguium (ICD-10 - B35.1) 01/24/2024 Pain in right toe(s) (ICD-10 - M79.674) 01/24/2024 Pain in left toe(s) (ICD-10 - M79.675) 01/24/2024 Left foot pain (ICD-10 - M79.672) 01/24/2024 Xerosis of skin (ICD-10 - L85.3) Plan Of Treatment Medication Medication Name Sig Start Date Stop Date Notes Ammonium Lactate 12 % 1 application to a ffected area Externally Twice a day to dry areas of skin on feet except between toes for 30 days 01/24/2024 Pending Test Test Name Order Date 21106-MSLVFQK NAIL, 6 OR MORE 01/24/2024 85697-Zndx Destruction, 1-14 01/24/2024 53518-MHVA SKIN LESIONS, OVER 4 01/24/20 24 Next Appt Details Follow Up: 2 Months, Reason: Provider Name:Boby Chapman , 05/05/2024 01:45:00 PM, [address], [address], [place], [address], Procedure Notes * Category Sub-Category Detail Notes Wart Treatment Procedure Verrucae were de brided to pin-point bleeding margins with sterile 15 surgical blade, silver nitrate chemocautery applied, recomm. immune-boosting meds such as zinc, recomm. follow up with topical chemosurgical agents, Pt defers any other forms of tx - 71051 Debride Nail 6-10 Nail debridement Performance o f this nail treatment by a nonprofessional would put this patients foot and overall health at risk. Therefore, nail debridement was performed extensively to reduce/remove overall nail length, girth, thickness, subungual debris, and necrotic tissue, by manual and/or electrical means through the use of a nail nipper and/or dremel-type stopper grinder, to a more viable healthy nail plate or bed tissue 6-10. Silver nitrate used for any petechial bleeding as necessary. Definitive antifungal treatment options have been reviewed and discussed with the patient. The patient chooses, no pharmaceutical tx - 73276 Keratoma Treatment Parring or Cutting o f Benign Hyperkeratotic Lesion(s) (-57) More than 4 Lesions - The Benign hyperkeratotic lesions, as described above were pared, and/or cut utilizing a sterile 15 blade, tissue nippers, and/or dremel - 92816 , Q8 Progress Notes * Tommie BLANCASOB:[birth year] (78 yo F)Acc No.[id number]:01/24/2024 Progress Note Patient:?Jacinda Blancas Provider:?Boby Chapman DPM :1945???Age:78 Y???Sex:Female D ate:01/24/2024 Address:[address] [place] [phone] Pcp:Truong Colon MD Subjective: * Chief Complaints: [...] wart - B07.0 (Malka ngozi), LEFT?2.?Atherosclerosis of nulato artery of both lower extremities, with unspecified presence of clinical manifestation - I70.203?3.?Tinea unguium - B35.1?4.?Pain in right toe(s) - M79.674?5.?Pain in left toe(s) - M79.675?6.?Left foot pain - M79.672?7.?Xerosis of skin - L85.3, Acute problem, Stable (1=3),Response to treatment - Improvement? Plan: * Treatment: 2.?Atherosclerosis of nulato artery of both lower extremities, with unspecified presence of clinical manifestation?Procedure: 48706-YUMP SKIN LESIONS, OVER 4 3.?Tinea unguium?Procedure: 60912-GVIJDYE NAIL, 6 OR MORE 4.?Xerosis of skin? [...] use of a nail nipper and/or dremel-type stopper grinder, to a more viable healthy nail plate or bed tissue 6-10. Silver nitrate used for any petechial bleeding as necessary. Definitive antifungal treatment options have been reviewed and discussed with the patient. The patient chooses, no pharmaceutical tx - 64855.?Keratoma Treatment:?Parring or Cutting of Benign Hyperkeratotic Lesion(s)?(-57) More than 4 Lesions - The Benign hyperkeratotic lesions, as described above were pared, and/or cut utilizing a sterile 15 blade, tissue nippers, and/or dremel - 91254 , Q8.?Wart Treatment:?Procedure?Verrucae were debrided to pin-point bleeding margins with sterile 15 surgical blade, silver nitrate chemocautery applied, recomm. immune-boosting meds such as zinc, recomm. follow up with topical chemosurgical agents, Pt defers any other forms of tx - 72366.? * Procedure Codes:?78587 DEBRI DE NAIL, 6 OR MORE, Modifiers: XS 27070 Wart Destruction, 1-14, Modifiers: XS 55918 TRIM SKIN LESIONS, OVER 4, Modifiers: XS [...] * Sign off status: Completed true * Provider:?Boby Chapman DPM Date:?2023 Generated for Yovanny toussaint/Leah/eTransmitting on:?04/03/2024 01:31 AM EST History and Physical Notes * HPI (History of Present Illness) Category Sub-Category Detail Notes Category Not es Skin problems Treatments: medication ( AM Lactin ) At Risk footcare Pt States Last PCP Visit: Date: 4 Examination Category Sub-Category Detail Notes Category Not es Dermatologic SKIN FINDINGS: Skin exam reveal s [...]
--- OUTSIDE RECORDS SUMMARY | 2024-04-03 01:32 | XMS_ITS | Patient Health Record ---
Author Organization [facility] [place] Address [address] [facility] [place] [address] Care Team Providers Care Forklift Technician Name Role Phone Isaiah DURAN, [place] Primary Care Provider Boby Laguerre Unavailable [phone] Allergies Allergen (clinical drug ingredient) Drug/Non Drug Allergy documented on EMR Reaction Allergy Type Onset Date Status sennosides, LONG TERM Senna rash and machado Drug Allergy Active [...] Problem Acquired hammer toe of right foot (3125646796415857 ) Other hammer toe(s) (acquired), right foot (M20.41) Active confirmed Response to treatment, Improvemen t Problem Acquired hammer toe of left foot (3883270832830577 ) Other hammer toe(s) (acquired), left foot (M20.42) Active confirmed Response to treatment, Improvemen t Problem Plantar wart (83418061) Plantar wart (B07.0) Active confirmed Chronic Problem [id number] Atherosclerosis of [place] artery of both lower extremities, with unspecified presence of clinical manifestation (I70.203) Active confirmed Vital Signs Height 5 ft 9in in 11/08/2023 Weight 233 lbs 11/08/2023 BMI 34.4 kg/m2 11/08/2023 Procedures Procedure Date Ordered Date Performed Result Body Sit e 79385-EGNJMQP NAIL, 6 OR MORE 04/11/2023 N/A 15240-Hlwz Destruction, 1-14 04/11/2023 N/A 04769-Elioswst Plate 04/11/2023 N/A 81898-Klwvoeeh Plate Each Additional 04/11/2023 N/A 08650-IWAR SKIN LESIONS, OVER 4 04/11/2023 N/A 58029-MTDXDUZ NAIL, 6 OR MORE 06/27/2023 N/A 70150-Ebcv Destruction, 1-14 06/27/2023 N/A 07294-Raddretn Plate 06/27/2023 N/A 59884-Awnrpdrc Plate Each Additional 06/27/2023 N/A 77362-SBJR SKIN LESIONS, OVER 4 06/27/2023 N/A 66570-BSEVPLC NAIL, 6 OR MORE 08/30/2023 N/A 49782-Uvfe Destruction, 1-14 08/30/2023 N/A 46173-Lpguapzf Plate 08/30/2023 N/A 82417-Nfjkfrwf Plate Each Additional 08/30/2023 N/A 14091-EPDB SKIN LESIONS, OVER 4 08/30/2023 N/A 90784-UAMUYCA NAIL, 6 OR MORE 11/08/2023 N/A 15150-Efdt Destruction, 1-14 11/08/2023 N/A 38066-Fzvxooun Plate 11/08/2023 N/A 11830-Jfnrkscg Plate Each Additional 11/08/2023 N/A 44022-HDTC SKIN LESIONS, OVER 4 11/08/2023 N/A 42493-IMFWREX NAIL, 6 OR MORE 01/24/2024 N/A 85360-Fenf Destruction, 1-14 01/24/2024 N/A 99227-YYTJ SKIN LESIONS, OVER 4 01/24/2024 N/A Encounters Encounter Location Date Provider Diagnosis [address] [address] 04/11/2023 Boby Chapman Atherosclerosis of [place] artery of both lower extremities, with unspecified presence of clinical manifestation I70.203 ; Ingrowing nail L60.0 ; Tinea unguium B35.1 ; Pain in right toe(s) M79.674 ; Pain in left toe(s) M79.675 ; Plantar wart B07.0 and Pain in left foot M79.[address] [address] 06/27/2023 Boby Chapman Atherosclerosis of [place] artery of both lower extremities, with unspecified presence of clinical manifestation I70.203 ; Plantar wart B07.0 ; Tinea unguium B35.1 ; Pain in right toe(s) M79.674 ; Pain in left toe(s) M79.675 ; Ingrown nail L60.0 ; Left foot pain M79.672 ; Other hammer toe(s) (acquired), right foot M20.41 and Other hammer toe(s) (acquired), left foot M20.[address] [address] 08/30/2023 Boby Chapman Atherosclerosis of [place] artery of both lower extremities, with unspecified presence of clinical manifestation I70.203 ; Plantar wart B07.0 ; Tinea unguium B35.1 ; Pain in right toe(s) M79.674 ; Pain in left toe(s) M79.675 ; Ingrown nail L60.0 and Left foot pain M79.[address] [address] 11/08/2023 Boby Chapman Atherosclerosis of [place] artery of both lower extremities, with unspecified presence of clinical manifestation I70.203 ; Plantar wart B07.0 ; Tinea unguium B35.1 ; Pain in right toe(s) M79.674 ; Pain in left toe(s) M79.675 ; Ingrown nail L60.0 ; Left foot pain M79.672 and Xerosis of skin L85.[address] [address] 01/24/2024 Boby Chapman Atherosclerosis of [place] artery of both lower extremities, with unspecified presence of clinical manifestation I70.203 ; Plantar wart B07.0 ; Tinea unguium B35.1 ; Pain in right toe(s) M79.674 ; Pain in left toe(s) M79.675 ; Left foot pain M79.672 and Xerosis of skin L85.3 Assessments Encounter Date Diagnosis (ICD Code) Assessment Notes Treatment Notes Treatment Clinical Notes Section Notes 04/11/2023 Ingrowing nail (ICD-10 - L60.0) 04/11/2023 Atherosclerosis of [place] artery of both lower extremities, with unspecified presence of clinical manifestation (ICD-10 - I70.203) 06/27/2023 Plantar wart (ICD-10 - B07.0) 06/27/2023 Atherosclerosis of [place] artery of both lower extremities, with unspecified presence of clinical manifestation (ICD-10 - I70.203) 08/30/2023 Plantar wart (ICD-10 - B07.0) 08/30/2023 Atherosclerosis of [place] artery of both lower extremities, with unspecified presence of clinical manifestation (ICD-10 - I70.203) 11/08/2023 Plantar wart (ICD-10 - B07.0) 11/08/2023 Atherosclerosis of [place] artery of both lower extremities, with unspecified presence of clinical manifestation (ICD-10 - I70.203) 01/24/2024 Plantar wart (ICD-10 - B07.0) 01/24/2024 Atherosclerosis of [place] artery of both lower extremities, with unspecified presence of clinical manifestation (ICD-10 - I70.203) 01/24/2024 Tinea unguium (ICD-10 - B35.1) 11/08/2023 Tinea unguium (ICD-10 - B35.1) 08/30/2023 Tinea unguium (ICD-10 - B35.1) 06/27/2023 Tinea unguium (ICD-10 - B35.1) 04/11/2023 Tinea unguium (ICD-10 - B35.1) 04/11/2023 Pain in right toe(s) [...] (ICD-10 - L60.0) 01/24/2024 Left foot pain (ICD-10 - M79.672) 11/08/2023 Left foot pain (ICD-10 - M79.672) 01/24/2024 Xerosis of skin (ICD-10 - L85.3) 06/27/2023 Left foot pain (ICD-10 - M79.672) 08/30/2023 Left foot pain (ICD-10 - M79.672) 04/11/2023 Pain in left foot (ICD-10 - M79.672) 06/27/2023 Other hammer toe(s) (acquired), right foot (ICD-10 - M20.41) Response to treatment,Impr ovement 06/27/2023 Other hammer toe(s) (acquired), left foot (ICD-10 - M20.42) Response to treatment,Impr ovement 11/08/2023 Xerosis of skin (ICD-10 - L85.3) Plan Of Treatment Pending Test Test Name Order Date 59844-EEXZJKD NAIL, 6 OR MORE 03/21/2017 55851-LWVKIJL NAIL, 6 OR MORE 05/30/2017 49261-QCQHRMO NAIL, 6 OR MORE 08/06/2017 31331-NJRCERF NAIL, 6 OR MORE 10/25/2017 51191-MXHGUIF NAIL, 6 OR MORE 03/20/2018 68853-GFPZEYI NAIL, 6 OR MORE 06/13/2018 96275-GIIYGEL NAIL, 6 OR MORE 01/07/2018 05393-MMUTZYW NAIL, 6 OR MORE 08/14/2018 00103-OGPSVOA NAIL, 6 OR MORE 10/17/2018 36460-DXFKZUA NAIL, 6 OR MORE 01/16/2019 61779-PIUJAPX NAIL, 6 OR MORE 04/03/2019 91829-BACVANP NAIL, 6 OR MORE 06/16/2019 52734-DLGGMEU NAIL, 6 OR MORE 08/27/2019 90285-PRMBAIG NAIL, 6 OR MORE 12/18/2019 48649-QKHZVSX NAIL, 6 OR MORE 05/06/2020 39534-YQNQWLP NAIL, 6 OR MORE 07/15/2020 10435-AMPDLAE NAIL, 6 OR MORE 09/29/2020 16091-EVCAYAR NAIL, 6 OR MORE 12/02/2020 39836-MXOPRIZ NAIL, 6 OR MORE 02/17/2021 70773-CBMRZVU NAIL, 6 OR MORE 06/16/2021 13196-VKUALVV NAIL, 6 OR MORE 08/29/2021 52727-PYMUOOM NAIL, 6 OR MORE 11/10/2021 82699-UONHGFM NAIL, 6 OR MORE 01/19/2022 70882-OJMRGMH NAIL, 6 OR MORE 04/05/2022 46637-RHOSCCV NAIL, 6 OR MORE 06/15/2022 60780-MOVJNOQ NAIL, 6 OR MORE 08/24/2022 51776-IZDQXXZ NAIL, 6 OR MORE 11/16/2022 21578-XTVNXMH NAIL, 6 OR MORE 01/25/2023 46939-PEVWVJH NAIL, 6 OR MORE 04/11/2023 11493-XVVWZWF NAIL, 6 OR MORE 06/27/2023 49637-YWDASCA NAIL, 6 OR MORE 08/30/2023 73563-EXZSWKB NAIL, 6 OR MORE 11/08/2023 20551-RSUYOOO NAIL, 6 OR MORE 01/24/2024 45705-ATELNTB NAIL, 1-5 11/01/2016 11789-EYASRRY NAIL, -5 01/03/2017 57738-WRYDYDR NAIL, -5 11/15/2015 72553-CGVQVHD NAIL, -5 01/24/2016 51050-IOETGRH NAIL, -5 04/05/2016 40124-VLWNLSP NAIL, -5 06/14/2016 46422-GWTRTLA NAIL, -5 08/23/2016 91052-Cxgx Destruction, -11/01/2016 76384-Cxmv Destruction, 05-0601/03/2017 18849-Rgge Destruction, 05-0603/21/2017 27852-Ojne Destruction, 05-0605/30/2017 22863-Zxiw Destruction, 05-0608/06/2017 23989-Gbsw Destruction, 05-0605/06/2020 14150-Kyzu Destruction, 05-0612/18/2019 91195-Hyqk Destruction, 05-0608/27/2019 71681-Izbj Destruction, 05-0606/16/2019 48765-Qubw Destruction, 05-0604/03/2019 11870-Crmm Destruction, 05-0601/16/2019 10144-Haef Destruction, 05-0610/17/2018 50397-Blbw Destruction, 05-0608/14/2018 20950-Dehm Destruction, 05-0606/13/2018 98648-Gvrs Destruction, 05-0610/25/2017 80833-Wtah Destruction, 05-0601/07/2018 69960-Scma Destruction, 05-0608/30/2023 93388-Mpbp Destruction, 05-0606/27/2023 99955-Ycpi Destruction, 05-0604/11/2023 71781-Ylzr Destruction, 05-0601/25/2023 05582-Lepr Destruction, 05-0611/16/2022 13074-Cboe Destruction, 05-0608/24/2022 79322-Fqzf Destruction, 05-0606/15/2022 78871-Igzt Destruction, 05-0604/05/2022 05986-Puid Destruction, 05-0601/19/2022 66359-Sagx Destruction, 05-0606/16/2021 87576-Pvta Destruction, 05-0603/20/2018 13850-Rxvn Destruction, 05-0611/10/2021 41900-Mrew Destruction, 05-0608/29/2021 15583-Rtnd Destruction, 05-0602/17/2021 13904-Dhyz Destruction, 05-0612/02/2020 32291-Nvet Destruction, 05-0609/29/2020 13281-Ylqz Destruction, 05-0607/15/2020 26428-Tmsb Destruction, 1-14 01/24/2024 92489-Rswu Destruction, 1-11/08/2023 53593-Mvedagdf Plate 11/08/2023 51553-Qwyasahd Plate 09/29/2020 65244-Dbpchkya Plate 12/02/2020 45005-Opxiqoqe Plate 02/17/2021 36387-Eaodgaus Plate 06/16/2021 52252-Ghetjozr Plate 08/29/2021 33705-Odnmsozr Plate 11/10/2021 09319-Lbqkhscw Plate 01/19/2022 53334-Kxyriitc Plate 04/05/2022 10843-Ymljelxm Plate 06/15/2022 17199-Bufoonri Plate 08/24/2022 79310-Kparmhmy Plate 11/16/2022 54209-Smqbzmvl Plate 01/25/2023 37814-Tocwcmky Plate 04/11/2023 51189-Igalzinf Plate 06/27/2023 68903-Scihweld Plate 08/30/2023 59321-Knmuhbdp Plate 12/18/2019 25515-Odxdocag Plate 05/06/2020 61559-Uuhcwiov Plate 07/15/2020 47347-Lhodjgom Plate 11/01/2016 84777-Xvqvhtwd Plate Each Additional 12/2023 05748-Puesvdax Plate Each Additional 09/2023 52492-Heslzjjf Plate Each Additional 97895-Bhzqqdhc Plate Each Additional 08/2022 03930-Fhlspbfq Plate Each Additional 26764-Zhlmzksj Plate Each Additional 07/2022 80019-Gwmyhlht Plate Each Additional 89183-Fnrulvoz Plate Each Additional 14766-Cfavinhr Plate Each Additional 62038-Puqkzkme Plate Each Additional 76264-VPHD SKIN LESIONS, OVER 4 11/08/19 75902-ZOII SKIN LESIONS, OVER 4 01/24/20 44802-DAOR SKIN LESIONS, OVER 4 06/16/19 65563-INAQ SKIN LESIONS, OVER 4 01/20/20 61286-LXTJ SKIN LESIONS, OVER 4 11/11/19 41563-EJCL SKIN LESIONS, OVER 4 08/30/19 06418-ILPK SKIN LESIONS, OVER 4 02/18/20 73922-KYIA SKIN LESIONS, OVER 4 12/03/19 79021-DJQW SKIN LESIONS, OVER 4 09/30/19 03321-HHCM SKIN LESIONS, OVER 4 07/16/19 66855-VANR SKIN LESIONS, OVER 4 04/05/20 53541-CWAL SKIN LESIONS, OVER 4 06/15/19 23 35631-EALX SKIN LESIONS, OVER 4 08/25/19 58960-NOIE SKIN LESIONS, OVER 4 11/17/19 23 17346-WKWC SKIN LESIONS, OVER 4 01/26/20 14256-KZAQ SKIN LESIONS, OVER 4 04/11/20 75810-OGKN SKIN LESIONS, OVER 4 06/27/19 43468-VRWP SKIN LESIONS, OVER 4 08/30/19 19471-XFGI SKIN LESIONS, OVER 4 03/21/20 17 97346-YATX SKIN LESIONS, OVER 4 01/04/20 17 20441-NYOX SKIN LESIONS, OVER 4 10/26/19 18 01728-VOLI SKIN LESIONS, OVER 4 08/07/19 18 19423-FJNY SKIN LESIONS, OVER 4 05/30/19 18 79029-NZED SKIN LESIONS, OVER 4 11/02/19 17 17856-QRUQ SKIN LESIONS, OVER 4 06/14/19 17 55517-BUSM SKIN LESIONS, OVER 4 04/05/20 16 15917-IATF SKIN LESIONS, OVER 4 08/24/19 17 88139-SXYQ SKIN LESIONS, OVER 4 01/24/20 16 19593-WPMA SKIN LESIONS, OVER 4 11/15/19 16 22494-FFST SKIN LESIONS, OVER 4 08/16/19 16 43046-NLNU SKIN LESIONS, OVER 4 05/06/19 21 46934-RNRH SKIN LESIONS, OVER 4 12/18/19 20 99248-IWOA SKIN LESIONS, OVER 4 08/27/19 06576-YIIL SKIN LESIONS, OVER 4 04/03/20 10022-NJNZ SKIN LESIONS, OVER 4 06/16/19 20 30253-IWMP SKIN LESIONS, OVER 4 01/08/20 18 78945-OFOI SKIN LESIONS, OVER 4 06/13/19 19 82869-ZWHI SKIN LESIONS, OVER 4 08/15/19 19 11615-DCOW SKIN LESIONS, OVER 4 03/20/20 18 30144-LTGB SKIN LESIONS, OVER 4 10/18/19 19 69329-QUIK SKIN LESIONS, OVER 4 01/17/20 19 S1269-EVWJQCYL DYSTROPHIC NAILS ANY # W4703-REHXDBMM DYSTROPHIC NAILS ANY # A6611-UMJDGTOX DYSTROPHIC NAILS ANY # F4056-PBPNHAOV DYSTROPHIC NAILS ANY # K7631-REAZTJPC DYSTROPHIC NAILS ANY # J3062-MECARNMM DYSTROPHIC NAILS ANY # K2131-VHFQFBVO DYSTROPHIC NAILS ANY # Z1238-TWORFMEE DYSTROPHIC NAILS ANY # Next Appt Details Provider Name:Boby Chapman , 05/05/2024 01:45:00 PM, [address] [facility] [facility] [address], [place], [address], Insurance Providers Payer Name Payer Address Payer Phone Subscriber Number Group Number Insured Name Patient Relationship to Insured Coverage Start Date Coverage End Date [facility] [employer] Claims [address] [place] [id number] Jacinda Benavidez Self - patient is the insured Medical (General) History Medical History History ICD Code Anemia Anxiety Arthritis Back,Hip,and Knee pain Cataracts High blood pressure Liver disease Reflux Thyroid disorder Surgical History Surgery Date(Month/Year) gall bladder 12/11/2014 Unspecified Right Hand SX 03/13/17
--- OUTSIDE RECORDS SUMMARY | 2024-04-03 01:32 | XMS_ITS ---
Author Organization [facility] Address [address] [place] [address] Care Team Providers Care Shampoo Person Name Role Phone Isaiah DURAN, [place] Primary Care Provider Boby Laguerre Unavailable [phone] Allergies Allergen (clinical drug ingredient) Drug/Non Drug [...] Ordered Date Performed Result Body Sit e 19631-NFKAVSC NAIL, 6 OR MORE 08/30/2023 N/A 86361-Zjtl Destruction, 1-14 08/30/2023 N/A 79830-Ppdwnayc Plate 08/30/2023 N/A 04179-Xhdgbbnl Plate Each Additional 08/30/2023 N/A 29363-MJVR SKIN LESIONS, OVER 4 08/30/2023 N/A Encounters Encounter Location Date Provider Diagnosis [facility] [address] [address] 08/30/2023 Boby Chapman Atherosclerosis of [place] artery of both lower extremities, with unspecified presence of clinical manifestation I70.203 ; Plantar wart B07.0 ; Tinea unguium B35.1 ; Pain in right toe(s) M79.674 ; Pain in left toe(s) M79.675 ; Ingrown nail L60.0 and Left foot pain M79.672 Assessments Encounter Date Diagnosis (ICD Code) Assessment Notes Treatment Notes Treatment Clinical Notes Section Notes 08/30/2023 Atherosclerosis of [place] artery of both lower extremities, with unspecified presence of clinical manifestation (ICD-10 - I70.203) 08/30/2023 Plantar wart (ICD-10 - B07.0) 08/30/2023 Tinea unguium (ICD-10 - B35.1) 08/30/2023 Pain in right toe(s) (ICD-10 - M79.674) 08/30/2023 Pain in left toe(s) (ICD-10 - M79.675) 08/30/2023 Ingrown nail (ICD-10 - L60.0) 08/30/2023 Left foot pain (ICD-10 - M79.672) Plan Of Treatment Pending Test Test Name Order Date 50897-TMVLTAE NAIL, 6 OR MORE 08/30/2023 65976-Xpay Destruction, 1-14 08/30/2023 50386-Bpzkggem Plate 08/30/2023 25315-Zuvaokmg Plate Each Additional 12/2023 49971-BYAD SKIN LESIONS, OVER 4 08/30/19 24 Next Appt Details Follow Up: 2 Months, Reason: Provider Name:Boby Chapman , 05/05/2024 01:45:00 PM, [address], [address], [place], [address], Procedure Notes * Category Sub-Category Detail Notes Wart Treatment Procedure Verrucae(s) were debrided to pin-point bleeding margins with sterile surgical blade, silver nitrate chemocautery applied, recomm. immune-boosting meds such as zinc, recomm. follow up with topical chemosurgical agents, Pt STILL defers any other forms of tx (84663), CONT, recomm. Wartstick 40% Salicylic acid application [...] and future surgical procedures to prevent recurrence (13321/32), CIRCULATION: Pt was advised as to the [...] as necessary. Patient chooses, no pharmaceutical tx (13942) Keratoma Treatment Parring or Cutting o f Benign Hyperkeratotic Lesion(s) 89702 ( >4 Lesions) - The Benign hyperkeratotic lesions, as described above were pared, and/or cut utilizing a sterile #15 blade, tissue nippers, and/or dremel, Q8 Progress Notes * Tommie BLANCASOB:[birth year] (77 yo F)Acc No.[id number]:08/30/2023 Progress Note Patient:?Jacinda Blancas Provider:?Boby Chapman DPM :1945???Age:77 Y???Sex:Female D ate:08/30/2023 Address:[address] [place], [place] [address] Pcp:Truong Colon MD Subjective: * Chief Complaints: [...] wart - B07.0 (Malka ngozi), LEFT?2.?Atherosclerosis of [place] artery of both lower extremities, with unspecified presence of clinical manifestation - I70.203?3.?Tinea unguium - B35.1?4.?Pain in right toe(s) - M79.674?5.?Pain in left toe(s) - M79.675?6.?Ingrown nail - L60.0, Medial nail border, TA, T5?7.?Left foot pain - M79.672? Plan: * Treatment: 2.?Atherosclerosis of [place] artery of both lower extremities, with unspecified presence of clinical manifestation?Procedure: 59895-YWLJ SKIN LESIONS, OVER 4 3.?Tinea unguium?Procedure: 40284-XGQQSAN NAIL, 6 OR MORE 4.?Ingrown nail?Procedure: 87660-Nxcoaons Plate ?Procedure: 69456-Lghfhbvp Plate Each Additional * Procedures:?Debride Nail 6-10:?Nail debridement?Nail debridement performed extensively to reduce/remove overall nail length, girth, thickness, subungual debris, and necrotic tissue, by manual and electrical means through the use of a nail nipper and/or dremel, to more viable healthy nail plate or bed tissue 1-5. Silver nitrate used for any petechial bleeding as necessary. Patient chooses, no pharmaceutical tx (06376).?Keratoma Treatment:?Parring or Cutting of Benign Hyperkeratotic Lesion(s)?33019 ( >4 Lesions) - The Benign hyperkeratotic [...] and future surgical procedures to prevent recurrence (66588/32), CIRCULATION: Pt was advised as to the [...] STILL defers any other forms of tx (62686), CONT, recomm. Wartstick 40% Salicylic acid application under occlusion as directed, CIRCULATION: Any more invasive procedure to wart deferred due to circulation risk.? * Procedure Codes:?41966 DEBRI DE NAIL, 6 OR MORE, Modifiers: XS 87396 Avulsion Plate, Modifiers: XS , [id number] Wart Destruction, 1-14, Modifiers: XS 98790 Avulsion Plate Each Additional, Modifiers: XS , [id number] TRIM SKIN LESIONS, OVER 4, Modifiers: XS , Q8 * Follow Up:?2 Months * Images: * Sign off status: Completed Addendum: * ? true * Provider:?Boby Chapman DPM Date:?2023 Generated for Yovanny toussaint/Leah/Lois on:?04/03/2024 01:31 AM EST History and Physical Notes * HPI (History of Present Illness) Category Sub-Category Detail Notes Category Not es At Risk footcare Pt States Last PCP Visit: Date: Examination Category Sub-Category Detail Notes Category Not es Ingrown Nail INSPECTION: Reveals nail inc urvation, [...]
--- OUTSIDE RECORDS SUMMARY | 2024-04-03 01:32 | XMS_ITS | Continuity of Care Document ---
Author Organization [facility] Address [address] [place] [address] Phone Care Team Providers Care Comic Illustrator Name Role Phone Amanuel DURAN FACS RVT [...] Providers Copied on Encounter [facility], [address] [address], [id number], [place] tel:[phone] [place] No Information 3 Amanuel DURAN FACS T SIMÓN Pinto. [address], [address], [place], [address], [place]. [phone] Referring Provider: Truong Colon MD, [address], [place], [address]. tel:[phone] Office/Outpt E&M Established 25 Mins [facility], [address] [place] [address] Dr [address], [id number], [place] tel:[phone] [place] Body mass index (BMI) 34.0-34.9, adultVenous insufficiency (chronic) (peripheral) 3 Amanuel DURAN FACS Yoni Pinto. [address] [place] [address], [place] [address], [place], [address], [place]. [phone] Referring Provider: Truong Colon MD, [address], [place], [address]. 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 [address] [place] [address], [address], [place], [address], [place]. [phone] Referring Provider: Truong Colon MD, [address], [place], [address]. 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 [facility] [facility] [address], [address], [place], [address], [place]. tel:[phone] Referring Provider: Truong Colon MD, [address], [place], [address]. tel:[phone] [place] [facility], [address] [place] [address] [address] [address], [id number], [place] tel:[phone] [place] Encntr for f/u exam aft trtmt for cond oth than malig neoplmVenous insufficiency (chronic) (peripheral) 3 Amanuel DURAN FACS RVT SIMÓN Pinto. [address], [facility] [address], [place], [address], [place]. tel:[phone] Referring Provider: Truong Colon MD, [address] [place] [address] Dr [address], [place], [address]. 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 [address], [facility] [address], [place], [address], [place]. [phone] Referring Provider: Truong Colon MD, [address] [place] [address] Dr [address], [place], [address]. 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 [address], [facility] [address], [place], [address], [place]. tel:[phone] Referring Provider: Truong Colon MD, [address], [place], [address]. tel:[phone] Family History Family Member Type Diagnosis Age At Onset No Information Payers Payer name Insurance type Covered constitution party ID Josefina haynes(s) [facility] [id number] Social History Type Description Quantity Date Captured [...] Information Instructions Date Instruction Additional Infor mation Patient education booklet given Related to Venous Insufficiency (Chronic / Peripheral) Diet education Related to Body mass index [BMI] 34.0-34.9, adult Giving Encouragement to Exercise Related to Body mass index [BMI] 34.0-34.9, adult Assessments Type Assessment Date No Information Patient Care Teams Name Effective Dates (start - stop) Status Members No Information
--- OUTSIDE RECORDS SUMMARY | 2024-04-03 01:32 | XMS_ITS ---
Author Organization [facility] [place] Address [address] [place] [address] Care Team Providers Care Coat Examiner Name Role Phone Isaiah DURAN, [place] Primary Care Provider Boby Laguerre Unavailable [phone] Allergies Allergen (clinical drug ingredient) Drug/Non Drug Allergy documented on EMR Reaction Allergy Type Onset Date Status sennosides, SENIOR CARE Senna rash and machado Drug Allergy Active [...] Ordered Date Performed Result Body Sit e 17518-LUXDZWA NAIL, 6 OR MORE 11/08/2023 N/A 13929-Nheb Destruction, 1-14 11/08/2023 N/A 27952-Vcjvaatt Plate 11/08/2023 N/A 68205-Lpsfvbec Plate Each Additional 11/08/2023 N/A 14743-YHDC SKIN LESIONS, OVER 4 11/08/2023 N/A Encounters Encounter Location Date Provider Diagnosis [facility] [address] [address] 11/08/2023 Boby Chapman Atherosclerosis of [place] artery of both lower extremities, with unspecified presence of clinical manifestation I70.203 ; Plantar wart B07.0 ; Tinea unguium B35.1 ; Pain in right toe(s) M79.674 ; Pain in left toe(s) M79.675 ; Ingrown nail L60.0 ; Left foot pain M79.672 and Xerosis of skin L85.3 Assessments Encounter Date Diagnosis (ICD Code) Assessment Notes Treatment Notes Treatment Clinical Notes Section Notes 11/08/2023 Atherosclerosis of [place] artery of both lower extremities, with unspecified presence of clinical manifestation (ICD-10 - I70.203) 11/08/2023 Plantar wart (ICD-10 - B07.0) 11/08/2023 Tinea unguium (ICD-10 - B35.1) 11/08/2023 Pain in right toe(s) (ICD-10 - M79.674) 11/08/2023 Pain in left toe(s) (ICD-10 - M79.675) 11/08/2023 Ingrown nail (ICD-10 - L60.0) 11/08/2023 Left foot pain (ICD-10 - M79.672) 11/08/2023 Xerosis of skin (ICD-10 - L85.3) Plan Of Treatment Medication Medication Name Sig Start Date Stop Date Notes Ammonium Lactate 12 % 1 application Exte rnally Twice a day for 30 days Pending Test Test Name Order Date 01942-OBTCXGY NAIL, 6 OR MORE 11/08/2023 53592-Yokh Destruction, 1-14 11/08/2023 10444-Mvdctwuv Plate 11/08/2023 97689-Nfmnbhgd Plate Each Additional 73186-KUDI SKIN LESIONS, OVER 4 11/08/19 24 Next Appt Details Follow Up: 2 Months, Reason: Provider Name:Boby Chapman , 05/05/2024 01:45:00 PM, [address], [address], [place], [address], Procedure Notes * Category Sub-Category Detail Notes Wart Treatment Procedure Verrucae(s) were debrided to pin-point bleeding margins with sterile surgical blade, silver nitrate chemocautery applied, recomm. immune-boosting meds such as zinc, recomm. follow up with topical chemosurgical agents, Pt STILL defers any other forms of tx (77028), CONT, recomm. Wartstick 40% Salicylic acid application [...] and future surgical procedures to prevent recurrence (36920/32), CIRCULATION: Pt was advised as to the [...] as necessary. Patient chooses, no pharmaceutical tx (73558) Keratoma Treatment Parring or Cutting o f Benign Hyperkeratotic Lesion(s) 43666 ( >4 Lesions) - The Benign hyperkeratotic lesions, as described above were pared, and/or cut utilizing a sterile #15 blade, tissue nippers, and/or dremel, Q8 Progress Notes * Tommie BLANCASOB:[birth year] (78 yo F)Acc No.[id number]:11/08/2023 Progress Note Patient:?Jacinda Blancas Provider:?Boby Chapman DPM :1945???Age:78 Y???Sex:Female D ate:11/08/2023 Address:[address] [place], [place] [address] Pcp:Truong Colon MD Subjective: * Chief Complaints: [...] wart - B07.0 (Malka ngozi), LEFT?2.?Atherosclerosis of [place] artery of both lower extremities, with unspecified presence of clinical manifestation - I70.203?3.?Tinea unguium - B35.1?4.?Pain in right toe(s) - M79.674?5.?Pain in left toe(s) - M79.675?6.?Ingrown nail - L60.0, Medial nail border, TA, T5?7.?Left foot pain - M79.672?8.?Xerosis of skin - L85.3, Acute problem, Uncomplicated (3),Rx Management (4)? Plan: * Treatment: 2.?Atherosclerosis of [place] artery of both lower extremities, with unspecified presence of clinical manifestation?Procedure: 14091-HKDN SKIN LESIONS, OVER 4 3.?Tinea unguium?Procedure: 14142-ULJUBMC NAIL, 6 OR MORE 4.?Ingrown nail?Procedure: 01535-Fbodmtui Plate ?Procedure: 90315-Sdknfkwp Plate Each Additional 5.?Xerosis of skin? Start [...] as necessary. Patient chooses, no pharmaceutical tx (58145).?Keratoma Treatment:?Parring or Cutting of Benign Hyperkeratotic Lesion(s)?54935 ( >4 Lesions) - The Benign hyperkeratotic [...] and future surgical procedures to prevent recurrence (99040/32), CIRCULATION: Pt was advised as to the [...] STILL defers any other forms of tx (83432), CONT, recomm. Wartstick 40% Salicylic acid application under occlusion as directed, CIRCULATION: Any more invasive procedure to wart deferred due to circulation risk.? * Procedure Codes:?92390 DEBRI DE NAIL, 6 OR MORE, Modifiers: XS 38022 Avulsion Plate, Modifiers: XS , [id number] Wart Destruction, 1-14, Modifiers: XS 35914 Avulsion Plate Each Additional, Modifiers: XS , [id number] TRIM SKIN LESIONS, OVER 4, Modifiers: XS [...] Detail Notes Category Not es Skin problems Nature: dryness , scaling Location: B/L Duration: several days Course: worse [...]
== END 2024-04-02 12:30 | disposition home or self-care (01) ==
LOC: HO.HWS 11:09
PROVIDERS: PCP Internal Medicine; Visit Provider Obstetrics & Gynecology
DX: Z01.419 Encounter for gynecological examination (general) (routine) without abnormal findings (principal)
CPT/HCPCS: 99387

== ENCOUNTER → 2024-04-02 11:09 | Outpatient (BNVA) | payer OTHER, SELFPAY | PROVIDERS: PCP Internal Medicine; Visit Provider Obstetrics & Gynecology | DX: Z01.419 Encounter for gynecological examination (general) (routine) without abnormal findings (principal); Z78.0 Asymptomatic menopausal state | CPT/HCPCS: 99387 ==

== ENCOUNTER 2024-04-24 13:19 | Outpatient (REF) | payer OTHER, SELFPAY ==
[2024-04-24 13:43] LABS: MANUAL DIFF FLAG NO
[2024-04-24 14:11] LABS: Basophils Percent Auto 0.2 % (0-2); Eosinophils Absolute Auto 0.1 X10*3/uL (0.0-0.4); Eosinophils Percent Auto 1.9 % (0-4); Hemoglobin 11.6 g/dl (12.0-16.0); Imm Gran Abs Auto 0.02 X10*3/uL (0.00-0.03); Imm Gran Pct Auto 0.5 % (0.0-0.4); Lymphocytes Absolute Auto 1.1 X10*3/uL (1.2-4.9); Lymphocytes Percent Auto 26.7 % (20-40); Mean Corpuscular HGB Conc 31.4 g/dl (31.0-35.0); Mean Corpuscular Hemoglobin 28.3 pg (27.0-33.0); Mean Corpuscular Volume 90.2 fL (80.0-98.0); Mean Platelet Volume 10.7 fL (9.4-12.3); Monocytes Absolute Auto 0.6 X10*3/uL (0.1-1.2); Monocytes Percent Auto 13.5 % (2-11); Neutrophils Absolute Auto 2.4 x10*3/uL (2.0-8.3); Neutrophils Percent Auto 57.2 % (45-73); Platelet Count 199 X10*3/uL (160-400); Red Cell Distribution Width 13.9 % (11.0-16.0); White Blood Count 4.2 X10*3/uL (4.8-10.8)
--- OUTSIDE RECORDS SUMMARY | 2024-04-24 14:29 | XMS_ITS | Continuity of Care Document ---
Author Organization [facility] Address [address] [place] [address] Phone Care Team Providers Care Freezing Machine Operator Name Role Phone Amanuel DURAN FACS RVT [...] Providers Copied on Encounter [facility], [address] [address], [id number], [place] tel:[phone] [place] No Information 3 Amanuel DURAN FACS T SIMÓN Pinto. [address], [address], [place], [address], [place]. [phone] Referring Provider: Truong Colon MD, [address], [place], [address]. tel:[phone] Office/Outpt E&M Established 25 Mins [facility], [address] [place] [address] Dr [address] [address] [place], [id number], [place] tel:[phone] [place] Body mass index (BMI) 34.0-34.9, adultVenous insufficiency (chronic) (peripheral) 3 Amanuel DURAN FACS Yoni Pinto. [address] [place] [address], [place] [address], [place], [address], [place]. [phone] Referring Provider: Truong Colon MD, [address], [place], [address]. 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 [address] [place] [address], [address], [place], [address], [place]. [phone] Referring Provider: Truong Colon MD, [address], [place], [address]. 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 [facility] [facility], [place], [address], [place]. tel:[phone] Referring Provider: Truong Colon MD, [address], [place], [address]. tel:[phone] [place] [facility], [address] [place] [address] [address] [address] [place], [id number], [place] tel:[phone] [place] Encntr for f/u exam aft trtmt for cond oth than malig neoplmVenous insufficiency (chronic) (peripheral) 3 Amanuel DURAN FACS RVT SIMÓN Pinto. [address], [facility] [address], [place], [address], [place]. [phone] Referring Provider: Truong Colon MD, [address] [place] [address] Dr [address], [place], [address]. 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 [address], [facility] [address], [place], [address], [place]. [phone] Referring Provider: Truong Colon MD, [address] [place] [address] Dr [address], [place], [address]. 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 [address], [facility] [address], [place], [address], [place]. tel:[phone] Referring Provider: Truong Colon MD, [address], [place], [address]. tel:[phone] Family History Family Member Type Diagnosis Age At Onset No Information Payers Payer name Insurance type Covered democrat ID Josefina haynes(s) [facility] [id number] Social History Type Description Quantity Date Captured [...]
--- OUTSIDE RECORDS SUMMARY | 2024-04-24 14:29 | XMS_ITS ---
Author Organization [facility] Jaylan Crenshawley Address [address] [facility] [place] [address] Care Team Providers Care Backup Operator Name Role Phone Isaiah DURAN, [place] Primary Care Provider Boby Laguerre Unavailable [phone] Allergies Allergen (clinical drug ingredient) Drug/Non Drug Allergy documented on EMR Reaction Allergy Type Onset Date Status sennosides, [facility] Senna rash and machado Drug Allergy Active [...] Ordered Date Performed Result Body Sit e 73864-QXBBEEF NAIL, 6 OR MORE 11/08/2023 N/A 43776-Xwjb Destruction, 1-14 11/08/2023 N/A 27137-Sdkkiqzd Plate 11/08/2023 N/A 56009-Nftsanrk Plate Each Additional 11/08/2023 N/A 81155-YFLN SKIN LESIONS, OVER 4 11/08/2023 N/A Encounters Encounter Location Date Provider Diagnosis [facility] [address] [address] 11/08/2023 Boby Chapman Atherosclerosis of wrang[place] artery of both lower extremities, with unspecified [...] Clinical Notes Section Notes 11/08/2023 Atherosclerosis of wrang[place] artery of both lower extremities, with unspecified [...] days Pending Test Test Name Order Date 46354-DDWDOES NAIL, 6 OR MORE 11/08/2023 81671-Ieeq Destruction, 1-14 11/08/2023 89750-Okpncdma Plate 11/08/2023 18162-Sphvmpbe Plate Each Additional 71198-SKWD SKIN LESIONS, OVER 4 11/08/19 24 Next Appt Details Follow Up: 2 Months, Reason: Provider Name:Boby Chapman , 05/05/2024 01:45:00 PM, [address] [facility], [address], [place], [address], Procedure Notes * Category Sub-Category Detail Notes Wart Treatment Procedure Verrucae(s) were debrided to pin-point bleeding margins with sterile surgical blade, silver nitrate chemocautery applied, recomm. immune-boosting meds such as zinc, recomm. follow up with topical chemosurgical agents, Pt STILL defers any other forms of tx (17354), CONT, recomm. Wartstick 40% Salicylic acid application [...] and future surgical procedures to prevent recurrence (35246/32), CIRCULATION: Pt was advised as to the [...] as necessary. Patient chooses, no pharmaceutical tx (44882) Keratoma Treatment Parring or Cutting o f Benign Hyperkeratotic Lesion(s) 18973 ( >4 Lesions) - The Benign hyperkeratotic lesions, as described above were pared, and/or cut utilizing a sterile #15 blade, tissue nippers, and/or dremel, Q8 Progress Notes * Tommie BLANCASOB:[birth year] (78 yo F)Acc No.[id number]:11/08/2023 Progress Note Patient:?Jacinda Blancas Provider:?Boby Chapman DPM :1945???Age:78 Y???Sex:Female D ate:11/08/2023 Address:[address] [place], [place] [address] Pcp:Truong Colon MD Subjective: * Chief Complaints: [...] wart - B07.0 (Malka ngozi), LEFT?2.?Atherosclerosis of wrangell artery of both lower extremities, with unspecified presence of clinical manifestation - I70.203?3.?Tinea unguium - B35.1?4.?Pain in right toe(s) - M79.674?5.?Pain in left toe(s) - M79.675?6.?Ingrown nail - L60.0, Medial nail border, TA, T5?7.?Left foot pain - M79.672?8.?Xerosis of skin - L85.3, Acute problem, Uncomplicated (3),Rx Management (4)? Plan: * Treatment: 2.?Atherosclerosis of wrang[place] artery of both lower extremities, with unspecified presence of clinical manifestation?Procedure: 43663-AANO SKIN LESIONS, OVER 4 3.?Tinea unguium?Procedure: 07694-BWPMPPP NAIL, 6 OR MORE 4.?Ingrown nail?Procedure: 86897-Nnxaoryj Plate ?Procedure: 09923-Vjfqueoi Plate Each Additional 5.?Xerosis of skin? Start [...] as necessary. Patient chooses, no pharmaceutical tx (97762).?Keratoma Treatment:?Parring or Cutting of Benign Hyperkeratotic Lesion(s)?69872 ( >4 Lesions) - The Benign hyperkeratotic [...] and future surgical procedures to prevent recurrence (04717/32), CIRCULATION: Pt was advised as to the [...] STILL defers any other forms of tx (49689), CONT, recomm. Wartstick 40% Salicylic acid application under occlusion as directed, CIRCULATION: Any more invasive procedure to wart deferred due to circulation risk.? * Procedure Codes:?13649 DEBRI DE NAIL, 6 OR MORE, Modifiers: XS 16658 Avulsion Plate, Modifiers: XS , [id number] Wart Destruction, 1-14, Modifiers: XS 55045 Avulsion Plate Each Additional, Modifiers: XS , [id number] TRIM SKIN LESIONS, OVER 4, Modifiers: XS [...] Chapman DPM Date:?2023 Generated for Yovanny toussaint/Leah/Lois on:?04/24/2024 02:28 PM EST History and Physical Notes * [...] 5-6mm diameter, plantar Forefoot, LEFT Vascular DP PULSES (B): 1/4, B/L PT PULSES (B): 0/4, B/L CAPILLARY FILL TIME: delayed, all digits , B/L TEMPERTURE GRADIENT (C): decreased, cool to cool, proximal to distal, B/L TROPHIC CONDITION-TEXTURE/ELASTICITY/TURGOR/HAIR GROWTH (B): decreased, B/L EDEMA (C): 1/4, non-pitting, wi thout aching pain, B/L, Leg(s), Ankle(s) CLAUDICATION (C): denies, B/L REST PAIN: denies, B/L PIGMENTATION: mottled, B/L Nails NAILS are: Elongated, overg rown, dystrophic, lytic, greater than 3mm thick, discolored and friable with crumbly malodorous subungual debris, with pain on palpation, TA, T1, T3, T4, T5, T6, T9, remaining nails are elongated, overgrown, dystrophic
--- OUTSIDE RECORDS SUMMARY | 2024-04-24 14:29 | XMS_ITS ---
Author Organization [facility] Jaylan [facility] Address [address] [facility] [place] [address] Care Team Providers Care Carpet Floor Layer Apprentice Name Role Phone Isaiah DURAN, [place] Primary Care Provider Boby Laguerre Unavailable [phone] Allergies Allergen (clinical drug ingredient) Drug/Non Drug Allergy documented on EMR Reaction Allergy Type Onset Date Status sennosides, [facility] Senna rash and machado Drug Allergy Active [...] Ordered Date Performed Result Body Sit e 38563-YUCNWAH NAIL, 6 OR MORE 08/30/2023 N/A 60406-Nttl Destruction, 1-14 08/30/2023 N/A 47374-Ddkqfrjs Plate 08/30/2023 N/A 46527-Eynindym Plate Each Additional 08/30/2023 N/A 35135-QGUN SKIN LESIONS, OVER 4 08/30/2023 N/A Encounters Encounter Location Date Provider Diagnosis [facility] [address] [address] 08/30/2023 Boby Chapman Atherosclerosis of [place] artery of both lower extremities, with unspecified presence of clinical manifestation I70.203 ; Plantar wart B07.0 ; Tinea unguium B35.1 ; Pain in right toe(s) M79.674 ; Pain in left toe(s) M79.675 ; Ingrown nail L60.0 and Left foot pain M79.672 Assessments Encounter Date Diagnosis (ICD Code) Assessment Notes Treatment Notes Treatment Clinical Notes Section Notes 08/30/2023 Atherosclerosis of [place] artery of both lower extremities, with unspecified [...] Treatment Pending Test Test Name Order Date 31315-LVZNPFS NAIL, 6 OR MORE 08/30/2023 52264-Clmo Destruction, 1-14 08/30/2023 85482-Izmwntmr Plate 08/30/2023 87329-Dxoenniy Plate Each Additional 12/2023 51720-EVYB SKIN LESIONS, OVER 4 08/30/19 24 Next Appt Details Follow Up: 2 Months, Reason: Provider Name:Boby Chapman , 05/05/2024 01:45:00 PM, [address] [facility], [address], [place], [address], Procedure Notes * Category Sub-Category Detail Notes Wart Treatment Procedure Verrucae(s) were debrided to pin-point bleeding margins with sterile surgical blade, silver nitrate chemocautery applied, recomm. immune-boosting meds such as zinc, recomm. follow up with topical chemosurgical agents, Pt STILL defers any other forms of tx (48170), CONT, recomm. Wartstick 40% Salicylic acid application [...] and future surgical procedures to prevent recurrence (80664/32), CIRCULATION: Pt was advised as to the [...] as necessary. Patient chooses, no pharmaceutical tx (22848) Keratoma Treatment Parring or Cutting o f Benign Hyperkeratotic Lesion(s) 67109 ( >4 Lesions) - The Benign hyperkeratotic lesions, as described above were pared, and/or cut utilizing a sterile #15 blade, tissue nippers, and/or dremel, Q8 Progress Notes * Tommie BLANCASOB:[birth year] (77 yo F)Acc No.[id number]:08/30/2023 Progress Note Patient:?Jacinda Blancas Provider:?Boby Chapman DPM :1945???Age:77 Y???Sex:Female D ate:08/30/2023 Address:[address] [place], [place] [address] Pcp:Truong Colon MD Subjective: * Chief Complaints: [...] wart - B07.0 (Malka ngozi), LEFT?2.?Atherosclerosis of [place]om[place] artery of both lower extremities, with unspecified presence of clinical manifestation - I70.203?3.?Tinea unguium - B35.1?4.?Pain in right toe(s) - M79.674?5.?Pain in left toe(s) - M79.675?6.?Ingrown nail - L60.0, Medial nail border, TA, T5?7.?Left foot pain - M79.672? Plan: * Treatment: 2.?Atherosclerosis of menom[place] artery of both lower extremities, with unspecified presence of clinical manifestation?Procedure: 69289-VXQQ SKIN LESIONS, OVER 4 3.?Tinea unguium?Procedure: 65769-HRHEPPB NAIL, 6 OR MORE 4.?Ingrown nail?Procedure: 67274-Wgvnaipd Plate ?Procedure: 03922-Bowjpthc Plate Each Additional * Procedures:?Debride Nail 6-10:?Nail debridement?Nail debridement performed extensively to reduce/remove overall nail length, girth, thickness, subungual debris, and necrotic tissue, by manual and electrical means through the use of a nail nipper and/or dremel, to more viable healthy nail plate or bed tissue 1-5. Silver nitrate used for any petechial bleeding as necessary. Patient chooses, no pharmaceutical tx (60216).?Keratoma Treatment:?Parring or Cutting of Benign Hyperkeratotic Lesion(s)?17381 ( >4 Lesions) - The Benign hyperkeratotic [...] and future surgical procedures to prevent recurrence (42902/32), CIRCULATION: Pt was advised as to the [...] STILL defers any other forms of tx (38802), CONT, recomm. Wartstick 40% Salicylic acid application under occlusion as directed, CIRCULATION: Any more invasive procedure to wart deferred due to circulation risk.? * Procedure Codes:?79840 DEBRI DE NAIL, 6 OR MORE, Modifiers: XS 50368 Avulsion Plate, Modifiers: XS , [id number] Wart Destruction, 1-14, Modifiers: XS 56981 Avulsion Plate Each Additional, Modifiers: XS , [id number] TRIM SKIN LESIONS, OVER 4, Modifiers: XS , Q8 * Follow Up:?2 Months * Images: * Sign off status: Completed Addendum: * ? true * Provider:?Boby Chapman DPM Date:?2023 Generated for Yovanny toussaint/Leah/Lois on:?04/24/2024 02:29 PM EST History and Physical Notes * [...]
--- OUTSIDE RECORDS SUMMARY | 2024-04-24 14:29 | XMS_ITS | Patient Health Record ---
Author Organization [facility] [place] Address [address] [facility] [place] [address] Care Team Providers Care Literacy Consultant Name Role Phone Isaiah DURAN, [place] Primary Care Provider Boby Laguerre Unavailable [phone] Allergies Allergen (clinical drug ingredient) Drug/Non Drug Allergy documented on EMR Reaction Allergy Type Onset Date Status sennosides, [facility] Senna rash and machado Drug Allergy Active [...] Problem Acquired hammer toe of right foot (0289623133489605 ) Other hammer toe(s) (acquired), right foot (M20.41) Active confirmed Response to treatment, Improvemen t Problem Acquired hammer toe of left foot (7916614123655590 ) Other hammer toe(s) (acquired), left foot (M20.42) Active confirmed Response to treatment, Improvemen t Problem Plantar wart (27016875) Plantar wart (B07.0) Active confirmed Chronic Problem [id number] Atherosclerosis of [place] artery of both lower extremities, with unspecified presence of clinical manifestation (I70.203) Active confirmed Vital Signs Height 5 ft 9in in 11/08/2023 Weight 233 lbs 11/08/2023 BMI 34.4 kg/m2 11/08/2023 Procedures Procedure Date Ordered Date Performed Result Body Sit e 63840-JNXPRLI NAIL, 6 OR MORE 06/27/2023 N/A 41454-Rfir Destruction, 1-14 06/27/2023 N/A 64125-Ruzxdyvn Plate 06/27/2023 N/A 10611-Evktivch Plate Each Additional 06/27/2023 N/A 46598-QLNC SKIN LESIONS, OVER 4 06/27/2023 N/A 23712-ABAKSED NAIL, 6 OR MORE 08/30/2023 N/A 59220-Udsv Destruction, 1-14 08/30/2023 N/A 54116-Gzyzetna Plate 08/30/2023 N/A 63784-Fwqhijex Plate Each Additional 08/30/2023 N/A 76603-XAGL SKIN LESIONS, OVER 4 08/30/2023 N/A 89735-UWPATDO NAIL, 6 OR MORE 11/08/2023 N/A 47678-Vaps Destruction, 1-14 11/08/2023 N/A 72754-Uzbjxzwa Plate 11/08/2023 N/A 14953-Xondeazz Plate Each Additional 11/08/2023 N/A 83699-VNQG SKIN LESIONS, OVER 4 11/08/2023 N/A 29706-FFQPBEL NAIL, 6 OR MORE 01/24/2024 N/A 65529-Gdgl Destruction, 1-14 01/24/2024 N/A 01082-NCWD SKIN LESIONS, OVER 4 01/24/2024 N/A Encounters Encounter Location Date Provider Diagnosis [facility] [address] 06/27/2023 Boby Chapman Atherosclerosis of [place] artery of both lower extremities, with unspecified presence of clinical manifestation I70.203 ; Plantar wart B07.0 ; Tinea unguium B35.1 ; Pain in right toe(s) M79.674 ; Pain in left toe(s) M79.675 ; Ingrown nail L60.0 ; Left foot pain M79.672 ; Other hammer toe(s) (acquired), right foot M20.41 and Other hammer toe(s) (acquired), left foot M20.42 [facility] [address] 08/30/2023 Boby Chapman Atherosclerosis of [place] artery of both lower extremities, with unspecified presence of clinical manifestation I70.203 ; Plantar wart B07.0 ; Tinea unguium B35.1 ; Pain in right toe(s) M79.674 ; Pain in left toe(s) M79.675 ; Ingrown nail L60.0 and Left foot pain M79.672 [facility] [address] [address] 11/08/2023 Boby Adela Atherosclerosis of [place] artery of both lower extremities, with unspecified presence of clinical manifestation I70.203 ; Plantar wart B07.0 ; Tinea unguium B35.1 ; Pain in right toe(s) M79.674 ; Pain in left toe(s) M79.675 ; Ingrown nail L60.0 ; Left foot pain M79.672 and Xerosis of skin L85.3 [place] [address] [address] 01/24/2024 Boby Adela Atherosclerosis of [place] artery of both lower extremities, with unspecified presence of clinical manifestation I70.203 ; Plantar wart B07.0 ; Tinea unguium B35.1 ; Pain in right toe(s) M79.674 ; Pain in left toe(s) M79.675 ; Left foot pain M79.672 and Xerosis of skin L85.3 Assessments Encounter Date Diagnosis (ICD Code) Assessment Notes Treatment Notes Treatment Clinical Notes Section Notes 06/27/2023 Plantar wart (ICD-10 - B07.0) 06/27/2023 Atherosclerosis of [place] artery of both lower extremities, with unspecified presence of clinical manifestation (ICD-10 - I70.203) 08/30/2023 Plantar wart (ICD-10 - B07.0) 08/30/2023 Atherosclerosis of [place] artery of both lower extremities, with unspecified presence of clinical manifestation (ICD-10 - I70.203) 11/08/2023 Plantar wart (ICD-10 - B07.0) 11/08/2023 Atherosclerosis of [place] artery of both lower extremities, with unspecified presence of clinical manifestation (ICD-10 - I70.203) 01/24/2024 Plantar wart (ICD-10 - B07.0) 01/24/2024 Atherosclerosis of [place] artery of both lower extremities, with unspecified presence of clinical manifestation (ICD-10 - I70.203) 01/24/2024 Tinea unguium (ICD-10 - B35.1) 11/08/2023 Tinea unguium (ICD-10 - B35.1) 08/30/2023 Tinea unguium (ICD-10 - B35.1) 06/27/2023 Tinea unguium (ICD-10 - B35.1) 06/27/2023 Pain in right toe(s) (ICD-10 - [...] M79.675) 08/30/2023 Ingrown nail (ICD-10 - L60.0) 06/27/2023 Ingrown nail (ICD-10 - L60.0) 11/08/2023 Ingrown nail (ICD-10 - L60.0) 01/24/2024 Left foot pain (ICD-10 - M79.672) 11/08/2023 Left foot pain (ICD-10 - M79.672) 01/24/2024 Xerosis of skin (ICD-10 - L85.3) 06/27/2023 Left foot pain (ICD-10 - M79.672) 08/30/2023 Left foot pain (ICD-10 - M79.672) 06/27/2023 Other hammer toe(s) (acquired), right foot (ICD-10 - M20.41) Response to treatment,Impr ovement 06/27/2023 Other hammer toe(s) (acquired), left foot (ICD-10 - M20.42) Response to treatment,Impr ovement 11/08/2023 Xerosis of skin (ICD-10 - L85.3) Plan Of Treatment Pending Test Test Name Order Date 26082-DHQIBWZ NAIL, 6 OR MORE 03/21/2017 80796-WDYTEHN NAIL, 6 OR MORE 05/30/2017 79811-WJGWUDT NAIL, 6 OR MORE 08/06/2017 30333-TXIJYTQ NAIL, 6 OR MORE 10/25/2017 45629-RPCIKWJ NAIL, 6 OR MORE 03/20/2018 43720-QXQCJLS NAIL, 6 OR MORE 06/13/2018 79121-QPYZREI NAIL, 6 OR MORE 01/07/2018 00040-OOOQMPM NAIL, 6 OR MORE 08/14/2018 22838-DUJCZCT NAIL, 6 OR MORE 10/17/2018 16512-TMOOLCT NAIL, 6 OR MORE 01/16/2019 21329-LWLPODU NAIL, 6 OR MORE 04/03/2019 58020-UYYJKSO NAIL, 6 OR MORE 06/16/2019 40144-NHLVSIX NAIL, 6 OR MORE 08/27/2019 86590-FEOWFKL NAIL, 6 OR MORE 12/18/2019 82233-LOTCBDF NAIL, 6 OR MORE 05/06/2020 82775-XJPTRFE NAIL, 6 OR MORE 07/15/2020 45182-LJISDHH NAIL, 6 OR MORE 09/29/2020 86022-IIGCTSI NAIL, 6 OR MORE 12/02/2020 52190-ECNRDDZ NAIL, 6 OR MORE 02/17/2021 72963-MAETXPH NAIL, 6 OR MORE 06/16/2021 82797-CLYAKGY NAIL, 6 OR MORE 08/29/2021 06887-ABWAOUC NAIL, 6 OR MORE 11/10/2021 45368-JODMTMD NAIL, 6 OR MORE 01/19/2022 96056-MDPNJOR NAIL, 6 OR MORE 04/05/2022 89785-PMPLFLM NAIL, 6 OR MORE 06/15/2022 71475-FWWNTPM NAIL, 6 OR MORE 08/24/2022 06416-CGUPSVZ NAIL, 6 OR MORE 11/16/2022 33760-HSRCLCS NAIL, 6 OR MORE 01/25/2023 49371-KZIRABI NAIL, 6 OR MORE 04/11/2023 11975-RZIGHLZ NAIL, 6 OR MORE 06/27/2023 15077-MPGCIHH NAIL, 6 OR MORE 08/30/2023 94331-SVAFNFM NAIL, 6 OR MORE 11/08/2023 83347-ARYLCIU NAIL, 6 OR MORE 01/24/2024 65399-EDEHLKP NAIL, -5 11/01/2016 13552-JQVTBZI NAIL, -01/03/2017 63696-QPFBXCV NAIL, -11/15/2015 46610-CZHBSQR NAIL, -5 01/24/2016 12406-VMGQRDO NAIL, -5 04/05/2016 97524-GAPZPYA NAIL, -06/14/2016 71405-QXIXVUK NAIL, -08/23/2016 55378-Bhij Destruction, 05-0611/01/2016 06073-Wluq Destruction, 05-0601/03/2017 06752-Ucvw Destruction, 05-0603/21/2017 26719-Blgi Destruction, 05-0605/30/2017 29806-Jhqe Destruction, 05-0608/06/2017 52817-Itca Destruction, 05-0605/06/2020 10248-Lorc Destruction, 05-0612/18/2019 87530-Ywsp Destruction, 05-0608/27/2019 05925-Zcfd Destruction, 05-0606/16/2019 03423-Uutd Destruction, 05-0604/03/2019 81320-Brnt Destruction, 05-0601/16/2019 37591-Lidk Destruction, 05-0610/17/2018 16552-Dsxj Destruction, 05-0608/14/2018 45604-Aepo Destruction, 05-0606/13/2018 02307-Idmz Destruction, 05-0610/25/2017 42379-Hqrb Destruction, 05-0601/07/2018 51448-Vjzk Destruction, 05-0608/30/2023 43423-Gtjn Destruction, 05-0606/27/2023 79297-Kcyj Destruction, 05-0604/11/2023 94658-Pmum Destruction, 05-0601/25/2023 45640-Nkpd Destruction, 05-0611/16/2022 92180-Zhec Destruction, 05-0608/24/2022 27171-Nqtv Destruction, 05-0606/15/2022 76271-Gtbb Destruction, 05-0604/05/2022 29658-Ladm Destruction, 05-0601/19/2022 92537-Gqzq Destruction, 1-14 06/16/2021 29131-Gmmc Destruction, 1-14 03/20/2018 79511-Kqcg Destruction, -14 11/10/2021 47423-Wypo Destruction, -14 08/29/2021 43957-Pqku Destruction, 1-14 02/17/2021 13597-Nsyj Destruction, 1-14 12/02/2020 61059-Uhuz Destruction, 1-14 09/29/2020 23623-Vkpg Destruction, 1-14 07/15/2020 67032-Ufqq Destruction, -14 01/24/2024 47719-Pdfd Destruction, -14 11/08/2023 18460-Rsserzbi Plate 11/08/2023 92490-Ivwqfurk Plate 09/29/2020 85814-Zzlamrgk Plate 12/02/2020 69392-Jyttqmus Plate 02/17/2021 10135-Qfxdckoo Plate 06/16/2021 18607-Jfahuxoq Plate 08/29/2021 64674-Ugbvcciq Plate 11/10/2021 53219-Qlxnxrem Plate 01/19/2022 28932-Sbzgnjea Plate 04/05/2022 07582-Myyestyi Plate 06/15/2022 34028-Zjoxgazh Plate 08/24/2022 54156-Iedxdvhw Plate 11/16/2022 55315-Oekhnxia Plate 01/25/2023 77614-Ifmiprlq Plate 04/11/2023 09698-Jyuvlply Plate 06/27/2023 59772-Wctjenrk Plate 08/30/2023 10405-Xswqhhmm Plate 12/18/2019 24420-Emtpyxrx Plate 05/06/2020 12201-Ddcsdcxl Plate 07/15/2020 71261-Porzdlqj Plate 11/01/2016 23324-Jnfcbxkl Plate Each Additional 12/2023 43298-Adiobstw Plate Each Additional 09/2023 53109-Ayrlczje Plate Each Additional 23409-Qienfhvu Plate Each Additional 08/2022 73714-Hznwsksx Plate Each Additional 84772-Sefxmlcq Plate Each Additional 07/2022 50323-Djxtsfit Plate Each Additional 57892-Jinzhlui Plate Each Additional 34626-Vduotpgx Plate Each Additional 42108-Gmkxhzvd Plate Each Additional 50274-TYUL SKIN LESIONS, OVER 4 11/08/19 88501-RDUJ SKIN LESIONS, OVER 4 01/24/20 21938-KAEM SKIN LESIONS, OVER 4 06/16/19 96193-IXGC SKIN LESIONS, OVER 4 01/20/20 55437-GGIU SKIN LESIONS, OVER 4 11/11/19 02931-SCIM SKIN LESIONS, OVER 4 08/30/19 98756-YBMI SKIN LESIONS, OVER 4 02/18/20 96867-IWUJ SKIN LESIONS, OVER 4 12/03/19 56181-FKRJ SKIN LESIONS, OVER 4 09/30/19 98621-EMBI SKIN LESIONS, OVER 4 07/16/19 37200-RLMO SKIN LESIONS, OVER 4 04/05/20 32095-QUZX SKIN LESIONS, OVER 4 06/15/19 45975-KDTZ SKIN LESIONS, OVER 4 08/25/19 23 81177-TTOT SKIN LESIONS, OVER 4 11/17/19 23 26124-PMLB SKIN LESIONS, OVER 4 01/26/20 73544-ZUTQ SKIN LESIONS, OVER 4 04/11/20 23 49997-QXQY SKIN LESIONS, OVER 4 06/27/19 24 10993-QGNA SKIN LESIONS, OVER 4 08/30/19 24 19602-HXRX SKIN LESIONS, OVER 4 03/21/20 17 75187-WDRK SKIN LESIONS, OVER 4 01/04/20 17 15772-HAXJ SKIN LESIONS, OVER 4 10/26/19 18 87066-KVBN SKIN LESIONS, OVER 4 08/07/19 18 17120-KKGF SKIN LESIONS, OVER 4 05/30/19 18 10697-GGKH SKIN LESIONS, OVER 4 11/02/19 17 07928-EBIQ SKIN LESIONS, OVER 4 06/14/19 17 32377-IVEV SKIN LESIONS, OVER 4 04/05/20 16 13518-OBYZ SKIN LESIONS, OVER 4 08/24/19 17 73375-HJFW SKIN LESIONS, OVER 4 01/24/20 16 91370-HPFN SKIN LESIONS, OVER 4 11/15/19 16 29403-HEBH SKIN LESIONS, OVER 4 08/16/19 16 73132-UGOY SKIN LESIONS, OVER 4 01/14/20 21 37338-LRYR SKIN LESIONS, OVER 4 12/18/19 20 94314-DNLX SKIN LESIONS, OVER 4 08/27/19 20 64750-CCPY SKIN LESIONS, OVER 4 04/03/20 19 98145-MGNJ SKIN LESIONS, OVER 4 06/16/19 20 13989-DBFI SKIN LESIONS, OVER 4 01/08/20 18 11581-YEHL SKIN LESIONS, OVER 4 06/13/19 19 74833-YURK SKIN LESIONS, OVER 4 08/15/19 19 13083-XTQL SKIN LESIONS, OVER 4 03/20/20 18 37971-PEBS SKIN LESIONS, OVER 4 10/18/19 19 97725-DNXX SKIN LESIONS, OVER 4 01/17/20 19 R3189-DMJNPZBZ DYSTROPHIC NAILS ANY # R0967-JRBKWQMX DYSTROPHIC NAILS ANY # Q3608-YALFMPUL DYSTROPHIC NAILS ANY # Y7546-XZOTZNWB DYSTROPHIC NAILS ANY # U2630-BSPSTDUT DYSTROPHIC NAILS ANY # A1586-QRKYFIGL DYSTROPHIC NAILS ANY # L1160-XLCKQWXK DYSTROPHIC NAILS ANY # H1790-GHDPURVQ DYSTROPHIC NAILS ANY # Next Appt Details Provider Name:Boby Chapman , 05/05/2024 01:45:00 PM, [address] [place] [address], [place] [address], [place], [address], Insurance Providers Payer Name Payer Address Payer Phone Subscriber Number Group Number Insured Name Patient Relationship to Insured Coverage Start Date Coverage End Date [facility] [employer] Claims [address] [place] [id number] Jacinda Benavidez Self - patient is the insured Medical (General) History Medical History History ICD Code Anemia Anxiety Arthritis Back,Hip,and Knee pain Cataracts High blood pressure Liver disease Reflux Thyroid disorder Surgical History Surgery Date(Month/Year) gall bladder 12/11/2014 Unspecified Right Hand SX 03/13/17
--- OUTSIDE RECORDS SUMMARY | 2024-04-24 14:29 | XMS_ITS ---
Author Organization [facility] Jaylan [facility] Address [address] [place] [address] Care Team Providers Care A P Manager Name Role Phone Isaiah DURAN, Senath Primary Care Provider Boby Laguerre Unavailable [phone] Allergies Allergen (clinical drug ingredient) Drug/Non Drug Allergy documented on EMR Reaction Allergy Type Onset Date Status sennosides, DETENTION Senna rash and machado Drug Allergy Active [...] Ordered Date Performed Result Body Sit e 79806-[id number] NAIL, 6 OR MORE 01/24/2024 N/A 22520-Ymhh Destruction, 1-14 01/24/2024 N/A 07108-FLIU SKIN LESIONS, OVER 4 01/24/2024 N/A Encounters Encounter Location Date Provider Diagnosis [facility] [address] [address] 01/24/2024 Boby Chapman Atherosclerosis of muscogee artery of both lower extremities, with unspecified presence of clinical manifestation I70.203 ; Plantar wart B07.0 ; Tinea unguium B35.1 ; Pain in right toe(s) M79.674 ; Pain in left toe(s) M79.675 ; Left foot pain M79.672 and Xerosis of skin L85.3 Assessments Encounter Date Diagnosis (ICD Code) Assessment Notes Treatment Notes Treatment Clinical Notes Section Notes 01/24/2024 Atherosclerosis of muscogee artery of both lower extremities, with unspecified [...] 01/24/2024 Pending Test Test Name Order Date 45404-[id number] NAIL, 6 OR MORE 01/24/2024 71425-Ylzp Destruction, 1-14 01/24/2024 49654-HNQY SKIN LESIONS, OVER 4 01/24/20 24 Next Appt Details Follow Up: 2 Months, Reason: Provider Name:Boby Chapman , 05/05/2024 01:45:00 PM, [address], [address], [place], [address], Procedure Notes * Category Sub-Category Detail Notes Wart Treatment Procedure Verrucae were de brided to pin-point bleeding margins with sterile 15 surgical blade, silver nitrate chemocautery applied, recomm. immune-boosting meds such as zinc, recomm. follow up with topical chemosurgical agents, Pt defers any other forms of tx - 00347 Debride Nail 6-10 Nail debridement Performance o f this nail treatment by a nonprofessional would put this patients foot and overall health at risk. Therefore, nail debridement was performed extensively to reduce/remove overall nail length, girth, thickness, subungual debris, and necrotic tissue, by manual and/or electrical means through the use of a nail nipper and/or dremel-type grinder outside diameter, to a more viable healthy nail plate or bed tissue 6-10. Silver nitrate used for any petechial bleeding as necessary. Definitive antifungal treatment options have been reviewed and discussed with the patient. The patient chooses, no pharmaceutical tx - 75218 Keratoma Treatment Parring or Cutting o f Benign Hyperkeratotic Lesion(s) (-57) More than 4 Lesions - The Benign hyperkeratotic lesions, as described above were pared, and/or cut utilizing a sterile 15 blade, tissue nippers, and/or dremel - 80994 , Q8 Progress Notes * Tommie BLANCASOB:[birth year] (78 yo F)Acc No.[id number]:01/24/2024 Progress Note Patient:?Jacinda Blancas Provider:?Boby Chapman DPM :1945???Age:78 Y???Sex:Female D ate:01/24/2024 Address:[address] [place] [address] Pcp:Truong Colon MD Subjective: * Chief Complaints: [...] wart - B07.0 (Malka ngozi), LEFT?2.?Atherosclerosis of muscogee artery of both lower extremities, with unspecified presence of clinical manifestation - I70.203?3.?Tinea unguium - B35.1?4.?Pain in right toe(s) - M79.674?5.?Pain in left toe(s) - M79.675?6.?Left foot pain - M79.672?7.?Xerosis of skin - L85.3, Acute problem, Stable (1=3),Response to treatment - Improvement? Plan: * Treatment: 2.?Atherosclerosis of muscogee artery of both lower extremities, with unspecified presence of clinical manifestation?Procedure: 65857-XIPV SKIN LESIONS, OVER 4 3.?Tinea unguium?Procedure: 95583-FHMRAPD NAIL, 6 OR MORE 4.?Xerosis of skin? [...] use of a nail nipper and/or dremel-type grinder outside diameter, to a more viable healthy nail plate or bed tissue 6-10. Silver nitrate used for any petechial bleeding as necessary. Definitive antifungal treatment options have been reviewed and discussed with the patient. The patient chooses, no pharmaceutical tx - 33083.?Keratoma Treatment:?Parring or Cutting of Benign Hyperkeratotic Lesion(s)?(-57) More than 4 Lesions - The Benign hyperkeratotic lesions, as described above were pared, and/or cut utilizing a sterile 15 blade, tissue nippers, and/or dremel - 86377 , Q8.?Wart Treatment:?Procedure?Verrucae were debrided to pin-point bleeding margins with sterile 15 surgical blade, silver nitrate chemocautery applied, recomm. immune-boosting meds such as zinc, recomm. follow up with topical chemosurgical agents, Pt defers any other forms of tx - 39989.? * Procedure Codes:?69569 DEBRI DE NAIL, 6 OR MORE, Modifiers: XS 81361 Wart Destruction, 1-14, Modifiers: XS 68317 TRIM SKIN LESIONS, OVER 4, Modifiers: XS [...] Chapman DPM Date:?2023 Generated for Yovanny toussaint/Leah/eTransmitting on:?04/24/2024 02:28 PM EST History and Physical [...] 2-3mm diameter, plantar Forefoot, LEFT Vascular DP PULSES (B): 1/4, B/L PT PULSES (B): 0/4, B/L CAPILLARY FILL TIME: delayed, all digits , B/L TEMPERTURE GRADIENT (C): decreased, cool to cool, proximal to distal, B/L TROPHIC CONDITION-TEXTURE/ELASTICITY/TURGOR/HAIR GROWTH (B): decreased, with sparse to absent hair gr owth, B/L EDEMA (C): 1/4, non-pitting, wi thout [...]
[2024-04-24 14:40] LABS: Anion Gap 11 (12-20); Blood Urea Nitrogen 26 mg/dL (9-16); Calcium 9.3 mg/dL (8.4-10.2); Carbon Dioxide 28 mmol/L (22-29); Chloride 105 mmol/L (96-108); Estimated Glomerular Filt Rate 45; Iron 84 mcg/dL (30-160); Percent Iron Saturation 35 % (15-50); Potassium 5.3 mmol/L (3.3-5.1); Sodium 139 mmol/L (135-145); Total Iron Binding Capacity 242 mcg/dL (228-428); Unsaturated Iron Binding 158 ug/dL
[2024-04-24 14:54] LABS: Ferritin 287 ng/mL (10-250)
== END 2024-04-24 13:20 | disposition home or self-care (01) ==
LOC: HO.LAB 13:19
PROVIDERS: Absent Provider Internal Medicine; PCP Internal Medicine; Visit Provider Internal Medicine Nephrology
DX: N18.31 Chronic kidney disease, stage 3a (principal); D63.1 Anemia in chronic kidney disease; D50.9 Iron deficiency anemia, unspecified
CPT/HCPCS: 36415; 80051; 82310; 82565; 82728; 83540; 84520; 85025

== ENCOUNTER 2024-05-13 10:22 | Outpatient (REF) | payer OTHER, SELFPAY ==
--- NOTE | ~2024-05-13 | MM_ITS ---
EXAMINATION: DXA BONE DENSITY AXIAL HISTORY: Estrogen deficiency TECHNIQUE: Happy Metrix Dual energy absorptiometry (DEXA) of the lumbar spine, total left hip, and femoral neck was performed. COMPARISON: There are no prior studies for comparison. FINDINGS: The bone mineral density of the lumbar spine is 1.306 with a T-score of 1.0, and a Z-score of 1.7. The bone mineral density of the left total hip is 0.903 with a T-score of -0.8, and a Z-score of 0.4. The bone mineral density of the left femoral neck is 0.910 with a T-score of -0.9, and a Z-score of 0.5. FRACTURE RISK: The FRAX index suggests a risk of major osteoporotic fracture of 82%, and of hip fracture 1.6%. MM/XR DEXA axial skeleton IMPRESSION: Based on bone mineral density, and according to World Health Organization (WHO) criteria, the diagnosis is consistent with normal bone mineral density. All bone density values are in grams per centimeter squared (g/cm2). Statistically, 68% of repeat scans fall within 1 SD (+/- 0.010 g/cm2 for AP spine L1-L4) and 1 SD (+/- 0.012 g/cm2 for femur total) Electronically signed by: Timoteo Levine MD 05/13/2024 01:05 PM ERIC
--- OUTSIDE RECORDS SUMMARY | 2024-05-13 11:42 | XMS_ITS | Encounter Summary ---
Author Organization [facility] Address [address] [place] [address] Phone Care Team Providers Care Cut Out Machine Operator Name Role Phone Truong Colon MD Primary Care Provider [phone]- [phone] Encounter Details Date Type Department Care Team (Late st Contact Info) Description 04/29/2024 Documentation Only [facility] [address] [place] [address] Britt Sol [address] [place] [address] Social History Tobacco Use Types Packs/Day Years Used Date Smoking Tobacco: Never Alcohol Use Standard Drinks/Week Comments No 0 (1 standard drink = 0.6 oz pur e alcohol) Comments Unknown Sex and Gender Information Value Date Recorded Sex Assigned at Not on file Legal Sex Female 4:33 PM EST Gender Identity Not on file Sexual Orientation Not on file documented as of this encounter Plan of Treatment Upcoming Encounters Date Type Department Care Team (Late Contact Info) Description 07/16/2024 3:45 PM EDT Office Visit [facility] [address] [place] [address] Dimitris Suarez PA [address] [place] [address] documented as of this encounter Visit Diagnoses Not on filedocumented in this encounter Care Teams Cut Out Machine Operator Relationship Specialty Start Date End Date Truong Colon MD [address] [place] [address] PCP - General Internal Medicine 03/06/23 documented as of this encounter
--- OUTSIDE RECORDS SUMMARY | 2024-05-13 11:42 | XMS_ITS | Clinical Summary ---
Author Organization [facility] [place] [address] Care Team Providers Care Blueprint Maker Name Role Phone Truong Colon MD Primary Care Provider Allergies Active Allergy Reactions Criticality Noted Date Comments Penicillins Rash Low 03/27/2017 Medications Medication Sig Dispensed Refills Start Date End Date Status acetaminophen (TYLENOL 8 HOUR) 650 mg 8 hr tablet Take 1 tablet (650 mg total) by mouth every 8 (eight) hours as needed for pain. Active amLODIPine (NORVASC) 5 mg tablet Take 2 tablets (10 mg total) by mouth 1 (one) time each day. Active bisacodyL 5 mg tablet Take 1 tablet (5 mg total) by mouth daily as needed for constipation. Active calcitrioL (ROCALTROL) 0.5 mcg capsule Take 1 capsule (0.5 mcg total) by mouth once a week. Active carvediloL (COREG) 3.125 mg tablet Take 4 tablets (12.5 mg total) by mouth 2 (two) times a day with meals. Active docusate sodium (COLACE) 100 mg capsule Take 1 capsule (100 mg total) by mouth 2 (two) times a day. Active apixaban (Eliquis) 2.5 mg tablet TAKE 1 TABLET BY MOUTH TWICE A DAY IN THE MORNING AND EVENING UNTIL DISCONTINUED 04/28/2022 Active ERGOCALCIFEROL, VITAMIN D2, ORAL Take by mouth. Acti ve levothyroxine (SYNTHROID, LEVOTHROID) 112 mcg tablet Take 1 tablet (112 mcg total) by mouth every morning on an empty stomach. Active omeprazole (PriLOSEC) [address] capsule Take 1 capsule (20 mg total) by mouth 1 (one) time each day. Active multivit-min/iron/fo lic acid/K (ADULTS MULTIVITAMIN ORAL) Take by mouth. 10/12/2015 Ac tive Active Problems Problem Noted Date Diagnosed Date Malignant neoplasm of upper- outer quadrant of left breast in female, estrogen receptor positive 07/03/2023 Iron deficiency anemia 05/18/2022 Acquired hypothyroidism 03/28/2017 Gastroesophageal reflux disease without esophagi tis 03/28/2017 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 Surgical History Surgery Date Site/Laterality Comments LUMBAR DISC SURGERY PROCEDURE:LUMBAR DISC SURGERY Medical History Medical History Date Comments Malignant neoplasm of upper- outer quadrant of left female breast (CMS/HCC) DX:Malignant neoplasm of upper-outer quadrant of left female breast (HCC) Hypertension DX:Hypertension Vitamin D deficiency DX:Vitamin D deficiency Hypothyroidism DX:Hypothyroidis m Social History Tobacco Use Types Packs/Day Years Used Date Smoking Tobacco: Never Smokeless Tobacco: Never Alcohol Use Standard Drinks/Week Comments No 0 (1 standard drink = 0.6 oz pur e alcohol) Sex and Gender Information Value Date Recorded Sex Assigned at Not on file Gender Identity Not on file Sexual Orientation Not on file Obstetrics History Last Filed Vital Signs Vital Sign Reading Time Taken Comments Blood Pressure 120/56 10/03/2023 11:30 AM EDT Sitting Left arm Pulse 62 10/03/2023 11:30 AM EDT Temperature - - Respiratory Rate - - Oxygen Saturation - - Inhaled Oxygen Concentration - - Weight 106 kg (233 lb 12.8 oz) 10/03/2023 11:30 AM EDT Height 177.8 cm (5' 10 ) 10/03/2023 11: 30 AM EDT Body Mass Index 33.55 10/03/2023 11:30 AM EDT Plan of Treatment Upcoming Encounters Date Type Department Care Team (Late st Contact Info) Description 10/02/2024 11:00 AM EDT Office Visit [facility] Hematology Oncology [address] [place] [id number] Jillian-Jennifer Gonzalez MD [address] [place] [id number] Health Maintenance Due Date Last Done Comments Zoster Vaccines (1 of 2) 03/23/2014 01/26/2014 RSV Immunization Patients 60+ Years Old (1 - 1-dose 75+ series) 08/30/2018 COVID-19 Vaccine (3 - Moderna risk series) 09/14/2020 08/17/2020, 07/20/2020 Cholesterol Screening (Lipid Panel) 03/31/2022 Colorectal Cancer Screening: Colonoscopy 03/31/2022 Depression Screening 03/31/2022 Falls Risk Assessment 03/31/2022 Social Influencers of Health Screening 03/31/2022 Hypertension/CHF/CAD Annual BMP Blood Test 04/07/2022 Influenza Vaccine (#1) 2023 2, 03/18/2019, 01/26/2014, Additional history exists DTaP,Tdap,and Td Vaccines (2 - Td or Tdap) 05/10/2031 05/10/2021 Osteoporosis Screening (Bone Density Screening) 10/08/2031 10/07/2021, 05/05/2019 Pneumococcal Vaccine: 65+ Years Completed 03/18/2019, 04/07/2016, 02/13/2014, Additional history exists HIB Vaccines Aged Out No longer eligi ble based on patient's age to complete this topic HPV Vaccines Aged Out No longer eligi ble based on patient's age to complete this topic Hepatitis A Vaccines Aged Out No long er eligible based on patient's age to complete this topic Hepatitis B Vaccines Aged Out No long er eligible based on patient's age to complete this topic IPV Vaccines Aged Out No longer eligi ble based on patient's age to complete this topic MMR Vaccines Aged Out No longer eligi ble based on patient's age to complete this topic Meningococcal ACWY Vaccine Aged Out N o longer eligible based on patient's age to complete this topic RSV Immunization Patients Under 20 months Aged Out No longer eligible based on patient's age to complete this topic Varicella Vaccines Aged Out No longer eligible based on patient's age to complete this topic Procedures Procedure Name Priority Date/Time Associated Diagnosis Comments DXA BONE DENSITY STUDY 1+ SITS AXIAL SKEL Routine 10/07/2021 10:23 AM EDT Other specified disorders of bone density and structure, left thigh from Last 3 Months or Most Recently Relevant to Health Maintenance Results * DXA BONE DENSITY STUDY 1+ SITS AXIAL SKEL (10/07/2021 10:23 AM EDT) Anatomical Region Laterality Modality Bone Densitometr y 05/10/2021 11:5 1 AM EST Narrative 10/07/2021 4:32 PM EDT Clinical history: other osteoporosis Scans of the lumbar spine and hips were performed on a [employer] fan beam bone densitometer. ? Bone mineral density measurements and associated T and Z scores respectively are as follows: Left Proximal Femur: Neck BMD: 0.736 g/cm2 ? T-Score: -1.0 ?? Z-Score: 1.0 Total BMD: 0.975 g/cm2 ? T-Score: 0.3 ?Z-Score: 2.1 Compared with the prior study the mean BMD reading in the total left hip has increased which is not statistically significant Compared with standards for the young adult, lowest measured bone density places the patient in the W.H.O. normal range. IMPRESSION: IMPRESSION: Normal bone density. The NOF guidelines recommend that FDA approved medical therapies be considered in postmenopausal women and men age >50 years with a: i. Hip or vertebral (clinical or morphometric) fracture ii. T score of < -2.5 at the spine or hip iii. 10 year fracture probability by FRAX of >3% for hip fracture, or >20% for major osteoporotic fracture PLEASE NOTE: ?? W.H.O. classification is based on lowest measured density at the spine, femoral neck, or total hip.This classification has prognostic significance when applied to post menopausal women and older men. 1) ??The World Health Organization defines low BMD as follows: ?T-score ? Normal ? at or > -1 Osteopenia ? < -1 and ??> - 2.5 Osteoporosis ? at or < -2.5 without fractures Established osteoporosis ? < -2.5 with fractures Procedure Note Pérez Ulloa MD - 04/11/2022 Clinical history: other osteoporosis Scans of the lumbar spine and hips were performed on a [employer] beam bone densitometer. Bone mineral density measurements and associated T and Z scoresrespectively are as follows: Left Proximal Femur: Neck BMD: 0.736 g/cm2 T-Score: -1.0 Z-Score: 1.0 Total BMD: 0.975 g/cm2 T-Score: 0.3 Z-Score: 2.1 Compared with the prior study the mean BMD reading in the total left hiphas increased which is not statistically significant Compared with standards for the young adult, lowest measured bone densityplaces the patient in the W.H.O. normal range. IMPRESSION: IMPRESSION: Normal bone density. The NOF guidelines recommend that FDA approved medical therapies beconsidered in postmenopausal women and men age >50 years with a: i. Hip or vertebral (clinical or morphometric) fracture ii. T score of < -2.5 at the spine or hip iii. 10 year fracture probability by FRAX of >3% for hip fracture, or >20%for major osteoporotic fracture PLEASE NOTE: W.H.O. classification is based on lowest measured density at the spine,femoral neck, or total hip.This classification has prognostic significance when applied to postmenopausal women and older men. 1) The World Health Organization defines low BMD as follows: T-score Normal at or > -1 Osteopenia < -1 and > -2.5 Osteoporosis at or < -2.5 withoutfractures Established osteoporosis < -2.5 with fractures Lorraine RODRIGUEZ DXA PROCEDURES from Last 3 Months or Most Recently Relevant to Health Maintenance Care Teams Blueprint Maker Relationship Specialty Start Date End Date Truong Colon MD [address] [place], [place] PCP - General 05/19/22
--- OUTSIDE RECORDS SUMMARY | 2024-05-13 11:42 | XMS_ITS | Encounter Summary ---
Author Organization [facility] Address [address] [place] [address] Phone Care Team Providers Care Mechanical Intern Name Role Phone Truong Colon MD Primary Care Provider [phone] Encounter Details Date Type Department Care Team (Late Contact Info) Description 04/10/2024 Documentation Only [facility] [address] [place] [address] Kylie Gabriel [address] [place] [address] Social History Tobacco Use Types [...] Visit [facility] [address] [place] [address] Dimitris Suarez PA [address] [place] [place] [address] documented as of this encounter Visit Diagnoses Not on filedocumented in this encounter Care Teams Mechanical Intern Relationship Specialty Start Date End Date Truong Colon MD [address] [place] [address] PCP - General Internal Medicine 03/06/23 documented as of this encounter
--- OUTSIDE RECORDS SUMMARY | 2024-05-13 11:42 | XMS_ITS | Continuity of Care Document ---
Author Organization [facility] Address [address] [place] [address] Phone Care Team Providers Care Dermatopathologist Name Role Phone Amanuel DURAN FACS RVT [...] Providers Copied on Encounter [facility], [address], [id number], [place] tel:[phone] [facility] [place] No Information 3 Amanuel DURAN FACS T SIMÓN Pinto. [address], [address], [place], [address], [place]. [phone] Referring Provider: Truong Colon MD, [address], [place], [address]. tel:[phone] Office/Outpt E&M Established 25 Mins [facility], [address] [place] [address] Dr [address] [place], [id number], [place] tel:[phone] [facility] [place] Body mass index (BMI) 34.0-34.9, adultVenous insufficiency (chronic) (peripheral) 3 Amanuel DURAN FACS Yoni Pinto. [address] [place] [address], [place] [address], [place], [address], [place]. [phone] Referring Provider: Truong Colon MD, [address], [place], [address]. 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 [address] [place] [address], [address], [place], [address], [place]. [phone] Referring Provider: Truong Colon MD, [address], [place], [address]. 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 [facility], [place], [address], [place]. tel:[phone] Referring Provider: Truong Colon MD, [address], [place], [address]. tel:[phone] [facility], [address] [place] [address] [address] [place], [id number], [place] tel:[phone] [facility] [place] Encntr for f/u exam aft trtmt for cond oth than malig neoplmVenous insufficiency (chronic) (peripheral) 3 Amanuel DURAN FACS RVT SIMÓN Pinto. [address], [place], [address], [place]. tel:[phone] Referring Provider: Truong Colon MD, [address] [place] [address] Dr [address], [place], [address]. 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 [address], [place], [address], [place]. [phone] Referring Provider: Truong Colon MD, [address] [place] [address] Dr [address], [place], [address]. 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 [address], [place], [address], [place]. tel:[phone] Referring Provider: Truong Colon MD, [address], [place], [address]. tel:[phone] Family History Family Member Type Diagnosis Age At Onset No Information Payers Payer name Insurance type Covered green party ID Josefina haynes(s) [facility] [id number] Social History Type Description Quantity Date Captured [...]
--- OUTSIDE RECORDS SUMMARY | 2024-05-13 11:42 | XMS_ITS | Encounter Summary ---
Author Organization [facility], Address [address] [place] [address] Phone Care Team Providers Care Water Gas Operator Name Role Phone Truong Colon MD Primary Care Provider [phone] Reason for Visit * Reason Onset Date Comments [facility] trying to schedule Retacrit injections 04/21 Encounter Details Date Type Department Care Team (Late Contact Info) Description 04/21/2024 Telephone [facility] - [facility] [address] [place] [address] [place] [address] Deisi Wakefield, RN [address] [place] [address] [place] [address] [facility] trying to schedule Retacrit injections Social History Tobacco Use Types Packs/Day Years [...] on file documented as of this encounter Miscellaneous Notes * Telephone Encounter - Deisi Wakefield, RN - 04/21/2024 12:51 PM EST [facility] called pt 3+ times to schedule Retacrit injections without success (no answer and no call back). I spoke to Jacinda and she will answer phone today for [facility] infusion to make Retacrit appointments. Luba at [facility] sent message via [employer]. documented in this encounter Plan of Treatment Upcoming Encounters Date Type Department Care Team (Late Contact Info) Description 07/16/2024 3:45 PM EDT Office Visit [facility], [address] [place] [address] Dimitris Suarez PA [address] [place] [address] documented as of this encounter Visit Diagnoses Not on filedocumented in this encounter Care Teams Water Gas Operator Relationship Specialty Start Date End Date Truong Colon MD [address] [place] [address] PCP - General Internal Medicine 03/06/23 documented as of this encounter
--- OUTSIDE RECORDS SUMMARY | 2024-05-13 11:42 | XMS_ITS ---
Author Organization [facility] [place], Address [address] [place] [address] [place] [address] Phone Care Team Providers Care Watch Leader Name Role Phone Truong Colon MD Primary Care Provider +1- [phone] Active Problems Problem Noted Date Diagnosed Date Peripheral vascular disease 05/02/2022 Iron deficiency anemia, not otherwise specified 04/07/2022 Stage 3b chronic kidney disease 01/26/2021 Renal osteodystrophy 09/16/2020 Anemia in chronic kidney disease 05/14/2019 Hypertensive heart disease without congestive he art failure 05/14/2019 Essential hypertension Current Oncology Plans No current plan information found. Past Plans Radiation Treatments * No radiation treatments are documented for this patient in [facility]. Treatments may have been administered in another system. 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
--- OUTSIDE RECORDS SUMMARY | 2024-05-13 11:42 | XMS_ITS | Encounter Summary ---
Author Organization [facility] Address [address] [place] [address] Phone Care Team Providers Care Life Insurance Salesperson Name Role Phone Truong Colon MD Primary Care Provider +1- [phone] Encounter Details Date Type Department Care Team (Late Contact Info) Description 04/24/2024 Documentation Only [facility] [address] [place] [address] Kylie Gabriel [address] [place] [address] Social History Tobacco Use Types [...] Visit [facility] [address] [place] [address] Dimitris Suarez PA [address] [place] [address] documented as of this encounter Visit Diagnoses Not on filedocumented in this encounter Care Teams Life Insurance Salesperson Relationship Specialty Start Date End Date Truong Colon MD [address] [place] [address] PCP - General Internal Medicine 03/06/23 documented as of this encounter
--- OUTSIDE RECORDS SUMMARY | 2024-05-13 11:42 | XMS_ITS | Clinical Summary ---
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 Medications acetaminophen (MAPAP ARTHRITIS PAIN) 650 MG 8 hr tablet Comments: Filled Date: Aug 08 2016 12:00AM Duration: 10 Active tamoxifen (NOLVADEX) 20 MG chemo tablet Comments: Filled Date: May 02 2016 12:00AM Patient Notes: TOME ASIA TABLETA POR VIA ORAL TODOS LOS TREVINO Duration: 90 03/22/20 16 Active amLODIPine (NORVASC) 10 MG tablet Take 10 mg by mouth 1 (one) time each day 03/25/20 20 Active carvedilol (COREG) 6.25 MG tablet Take 12.5 mg by mouth 2 (two) times a day with meals as directed 03/22/20 20 Active docusate sodium (COLACE) 100 MG capsule TOME ASIA C PSULA DOS VECES AL D A 02/25/20 20 Active levothyroxine (SYNTHROID, LEVOTHROID) 125 MCG tablet Take 125 mcg by mouth 1 (one) time each day 03/29/20 20 Active pregabalin (LYRICA) 75 MG capsule TOME 1 C PSULA POR V A ORAL AL ACOSTARSE 11/16/19 21 Active Eliquis 2.5 MG tablet TAKE 1 TABLET TWICE DAILY IN THE AM + EVENING START DAY BEFORE PROCEDURE +CONTINUE FOR 1 MONTH AFTER 10/13/19 22 Active omeprazole (PriLOSEC) [address] capsule TAKE 1 CAPSULE BY MOUTH DAILY FOR 180 DAYS. 10/25/19 22 Active magnesium oxide 400 (240 Mg) MG tablet Take 1 tablet by mouth 1 (one) time each day 08/24/19 24 Active valACYclovir (VALTREX) 500 MG tablet Take 500 mg by mouth in the morning and 500 mg in the evening. TWICE A DAY FOR 7 DAYS. 06/19/19 24 Active calcitriol (ROCALTROL) 0.5 MCG capsule TAKE 2 CAPSULES BY MOUTH CADA SEMANA 24 capsule 14 05/13/19 25 Active calcitriol (ROCALTROL) 0.5 MCG capsule TAKE 2 CAPSULES BY MOUTH CADA SEMANA 24 capsule 14 03/16/20 23 025 Discontinued Active Problems Problem Noted Date Diagnosed Date Peripheral vascular disease 05/02/2022 Iron deficiency anemia, not otherwise specified 04/07/2022 Stage 3b chronic kidney disease 01/26/2021 Renal osteodystrophy 09/16/2020 Anemia in chronic kidney disease 05/14/2019 Hypertensive heart disease without congestive he art failure 05/14/2019 Essential hypertension Resolved Problems Problem Noted Date Diagnosed Date Resolved Date Stage 3a chronic kidney disease 05/14/2019 09/20/2021 Overview (04/26/2020): Update for Diagnosis Load 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 05/14/2019 09/15/2020 Acquired hypothyroidism 03/28/201708/22 Gastro-esophageal reflux dis ease without esophagitis 03/28/2017 09/15/2020 Lipoma of forearm 03/28/2017 09/15/2020 Malignant neoplasm of upper- outer quadrant of left female breast 03/28/2017 09/15/2020 Encounters Date Type Department Care Team Description 05/11/2024 Refill [facility] [place], [address] [place] [address] Eligio Meza MD 04/29/2024 Documentation Only [facility] [address] [place] [address] Britt Sol 04/24/2024 Documentation Only [facility] [address] [place] [address] HarveyKylie tavarez 04/21/2024 Telephone [facility] [address] [place] [address] Deisi Wakefield, RN [facility] trying to schedule Retacrit injections 04/10/2024 Documentation Only [facility] [address] [place] [address] Harvey, Kylie 04/10/2024 Documentation Only [facility] [address] [place] [address] Harvey, Kylie 04/10/2024 Documentation Only [facility] [address] [place] [address] HarveyKylie tavarez Retacrit 04/09/2024 Office Communication [facility] [address] [place] [address] Deisi Wakefield, ROGELIO 04/04/2024 Documentation Only [facility] [address] [place] [address] Jasmin Dumont 04/04/2024 Office Communication [facility] [address] [place] [address] Harvey, Kylie 04/03/2024 Office Communication [facility] [address] [place] [address] Jasmin Dumont from Last 3 Months Immunizations Name Administration Dates Next Due Hepatitis B 08/30/2015,04/05/2015,03/01/2015 Influenza (IM) Preservative Free 03/20/2019,02/22 Influenza Split High Dose Pr eservative Free IM 03/18/2019,04/28/2015,01/21/2015 Influenza TIV (IM) 01/26/2014,02/04/2013 Influenza, MDCK, Quadrivalen t, with preservative 01/25/2018 Influenza, Recombinant, Quadrivalent, Pf 022,01/29/2020 Influenza, Unspecified 01/29/2020 Moderna SARS-COV-2 08/17/2020,07/20/2020 Pneumococcal Conjugate 13-Valent 04/07/2016 Pneumococcal Polysaccharide 03/18/2019, 4,02/25/2007 Zoster 01/26/2014 Family History Medical History Relation Comments Cancer Mother Relation Status Comments Father Mother Social History Tobacco Use Types Packs/Day Years Used Date Smoking Tobacco: Never Tobacco Cessation:Counseling Given: Not Answered Alcohol Use Standard Drinks/Week Comments No 0 (1 standard drink = 0.6 oz pur e alcohol) Comments Unknown Sex and Gender Information Value Date Recorded Sex Assigned at Not on file Legal Sex Female 4:33 PM EST Gender Identity Not on file Sexual Orientation Not on file Last Filed Vital Signs Vital Sign Reading Time Taken Comments Blood Pressure 122/67 10/17/2023 5:27 PM EDT Pulse 74 05/15/2019 3:54 PM EST Temperature - - Respiratory Rate 16 05/15/2019 3:54 PM EST Oxygen Saturation - - Inhaled Oxygen Concentration - - Weight 106 kg (234 lb 6.4 oz) 09/12/2023 2:52 PM EDT Height 175.3 cm (5' 9 ) 09/12/2023 2:52 PM EDT Body Mass Index 34.61 09/12/2023 2:52 PM EDT Plan of Treatment Upcoming Encounters Date Type Department Care Team (Late st Contact Info) Description 07/16/2024 3:45 PM EDT Office Visit [facility] [place], [address] [place] [address] Dimitris Suarez PA [address] [place] [address] Health Maintenance Due Date Last Done Comments Influenza Vaccine (#1) 2023 2, 05/10/2021, 01/29/2020, Additional history exists Hepatitis B Vaccine Aged Out 08/30/2015, 04/05/2015, 03/01/2015 No longer eligible based on patient's age to complete this topic Pneumococcal Vaccine: 65+ Years Completed 03/18/2019, 04/07/2016, 02/13/2014, Additional history exists Procedures Procedure Name Priority Date/Time Associated Diagnosis Comments POCT HEMOGLOBIN Routine 10/17/2023 5:28 PM EDT Stage 3a chronic kidney disease (HCC) Anemia in chronic kidney disease from Last 3 Months or Most Recently Relevant to Health Maintenance Results * POCT hemoglobin (10/17/2023 5:28 PM EDT) Hemoglobin 11.9 Blood 10/17/2023 5:28 PM EDT Eligio Meza MD POINT OF CARE TEST ORDERABLES Fi nal Result from Last 3 Months or Most Recently Relevant to Health Maintenance Insurance [facility] CARE DUAL SNP ([id number]) [place] [id number] Care Teams Station Cleaning Porter Relationship Specialty Start Date End Date Truong Colon MD [address] [place] [address] PCP - General Internal Medicine 03/06/23
--- OUTSIDE RECORDS SUMMARY | 2024-05-13 11:42 | XMS_ITS | Encounter Summary ---
Author Organization [facility] Address [address] [place] [address] Phone Care Team Providers Care Collar Turner Name Role Phone Truong Colon MD Primary Care Provider +1- [phone] Reason for Visit * Reason Comments Med Refill Encounter Details Date Type Department Care Team (Late Contact Info) Description 05/11/2024 Refill [facility] [address] [place] [address] Eligio Meza MD [address] [place] [address] [place] [address] Social History Tobacco Use Types Packs/Day Years [...] Visit [facility] [address] [place] [address] Dimitris Suarez PA [address] [place] [address] [place] [address] documented as of this encounter Visit Diagnoses Not on filedocumented in this encounter Care Teams Collar Turner Relationship Specialty Start Date End Date Truong Colon MD [address] [place], [place] [id number] PCP - General Internal Medicine 03/06/23 documented as of this encounter
--- OUTSIDE RECORDS SUMMARY | 2024-05-13 11:43 | XMS_ITS | Encounter Summary ---
Author Organization [facility] [place], Address [address] [place] [address] Phone Care Team Providers Care High Pressure Boiler Operator Name Role Phone Truong Colon MD Primary Care Provider +1- [phone] Encounter Details Date Type Department Care Team (Late st Contact Info) Description 01/21/2024 Orders Only [facility] [address] [place] [address] Dimitris Suarez PA [address] [place] [address] Stage 3a chronic kidney disease (HCC); Essential hypertension; Peripheral vascular disease (HCC); Renal osteodystrophy Social History Tobacco Use Types Packs/Day Years [...] Visit [facility] [address] [place] [address] Dimitris Suarez PA [address] [place] [address] documented as of this encounter Visit Diagnoses Diagnosis Stage 3a chronic kidney disease (HCC) Essential hypertension Peripheral vascular disease (HCC) Peripheral vascular disease Renal osteodystrophy documented in this encounter Care Teams High Pressure Boiler Operator Relationship Specialty Start Date End Date Truong Colon MD [address] [place] [address] PCP - General Internal Medicine 03/06/23 documented as of this encounter
--- OUTSIDE RECORDS SUMMARY | 2024-05-13 11:43 | XMS_ITS | Encounter Summary ---
Author Organization [facility] Address [address] [place] [address] Phone Care Team Providers Care Tax Clerk Name Role Phone Truong Colon MD Primary Care Provider +1- [phone] Encounter Details Date Type Department Care Team (Late st Contact Info) Description 01/23/2024 Telephone [facility] [place], [address] [place] [address] Rachel Garcia [address] [place] [address] Social History Tobacco Use Types [...] encounter Miscellaneous Notes * Telephone Encounter - Kylie Gabriel - 04/10/2024 1:50 PM EST Labs were collected 03/17/24. Report scanned to media. * Telephone Encounter - Kylie Gabriel - 01/23/2024 1:04 PM EDT Patients hemoglobin is 12.0, she is too high for a injection. * Telephone Encounter - Rachel Garcia - 01/23/2024 11:20 AM EDT Hi Kylie, pt called last week to inquire about procrit visit-- she had labs drawn yesterday [place] [facility] and I faxed over our order for add on. Please advise- thanks! documented in this encounter Plan of Treatment Upcoming Encounters Date Type Department Care Team (Late st Contact Info) Description 07/16/2024 3:45 PM EDT Office Visit [facility] [place], [address] [place] [address] Dimitris Suarez, LANA [address] [place] [address] documented as of this encounter Visit Diagnoses Not on filedocumented in this encounter Care Teams Tax Clerk Relationship Specialty Start Date End Date Truong Colon MD [address] [place] [address] [address] [place] [address] PCP - General Internal Medicine 03/06/23 documented as of this encounter
--- OUTSIDE RECORDS SUMMARY | 2024-05-13 11:43 | XMS_ITS | Encounter Summary ---
Author Organization [facility] Address [address] [place] [address] Phone Care Team Providers Care Armature Winder Repair Name Role Phone Truong Colon MD Primary Care Provider +1- [phone] Encounter Details Date Type Department Care Team (Late Contact Info) Description 04/04/2024 Documentation Only [facility] [address] [place] [address] [place] [address] Social History Tobacco Use Types Packs/Day [...] Visit [facility] [address] [place] [address] Dimitris Suarez PA [address] [place] [address] [place] [address] documented as of this encounter Visit Diagnoses Not on filedocumented in this encounter Care Teams Armature Winder Repair Relationship Specialty Start Date End Date rTuong Colon MD [address] [place] [address] PCP - General Internal Medicine 03/06/23 documented as of this encounter
--- OUTSIDE RECORDS SUMMARY | 2024-05-13 11:43 | XMS_ITS | Encounter Summary ---
Author Organization [facility] [place], Address [address] [place] [address] Phone Care Team Providers Care Line And Frame Poler Name Role Phone Truong Colon MD Primary Care Provider +1- [phone] Encounter Details Date Type Department Care Team (Late st Contact Info) Description 11/09/2021 Documentation Only [facility] [address] [place] [address] Dimitris Suarez PA [address] [place] [address] Social History Tobacco Use Types Packs/Day Years [...] Visit [facility] [address] [place] [address] Dimitris Suarez PA [address] [place] [address] documented as of this encounter Visit Diagnoses Not on filedocumented in this encounter Care Teams Line And Frame Poler Relationship Specialty Start Date End Date Truong Colon MD [address] [place], [place] [id number] PCP - General Internal Medicine 03/06/23 documented as of this encounter
--- OUTSIDE RECORDS SUMMARY | 2024-05-13 11:43 | XMS_ITS | Encounter Summary ---
Author Organization [facility] Address [address] [place] [address] Phone Care Team Providers Care Pari Mutuel Ticket Seller Name Role Phone Truong Colon MD Primary Care Provider +1- [phone] Encounter Details Date Type Department Care Team (Late Contact Info) Description 10/26/2023 Documentation Only [facility] [address] [place] [address] Kylie Gabriel [address] [place] [address] Social History Tobacco Use Types [...] Visit [facility] [address] [place] [address] Dimitris Suarez PA [address] [place] [address] documented as of this encounter Visit Diagnoses Not on filedocumented in this encounter Care Teams Pari Mutuel Ticket Seller Relationship Specialty Start Date End Date Truong Colon MD [address] [place] [address] PCP - General Internal Medicine 03/06/23 documented as of this encounter
--- OUTSIDE RECORDS SUMMARY | 2024-05-13 11:43 | XMS_ITS | Encounter Summary ---
Author Organization [facility] [place], Address [address] [place] [address] Phone Care Team Providers Care Collet Maker Name Role Phone Truong Colon MD Primary Care Provider +1- [phone] Encounter Details Date Type Department Care Team (Late st Contact Info) Description 12/21/2021 Documentation Only [facility] [address] [place] [address] Dimitris Suarez PA [address] [place] [address] Social History Tobacco Use Types [...] Visit [facility] [address] [place] [address] Dimitris Suarez PA [address] [place] [address] documented as of this encounter Visit Diagnoses Not on filedocumented in this encounter Care Teams Collet Maker Relationship Specialty Start Date End Date Truong Colon MD [address] [place], [place] [id number] PCP - General Internal Medicine 03/06/23 documented as of this encounter
--- OUTSIDE RECORDS SUMMARY | 2024-05-13 11:43 | XMS_ITS | Encounter Summary ---
Author Organization [facility] Address [address] [place] [address] Phone Care Team Providers Care Professor Of Industrial Technology Name Role Phone Truong Colon MD Primary Care Provider +1- [phone] Encounter Details Date Type Department Care Team (Late Contact Info) Description 01/31/2024 Documentation Only [facility] [address] [place] [address] Kylie Gabriel [address] [place] [address] Social History Tobacco Use Types [...] Visit [facility] [address] [place] [address] Dimitris Suarez PA [address] [place] [address] documented as of this encounter Visit Diagnoses Not on filedocumented in this encounter Care Teams Professor Of Industrial Technology Relationship Specialty Start Date End Date Truong Colon MD [address] [place] [address] PCP - General Internal Medicine 03/06/23 documented as of this encounter
--- OUTSIDE RECORDS SUMMARY | 2024-05-13 11:43 | XMS_ITS | Encounter Summary ---
Author Organization [facility] Address [address] [place] [address] Phone Care Team Providers Care Applied Computer Science Professor Name Role Phone Truong Colon MD Primary Care Provider +1- [phone] Encounter Details Date Type Department Care Team (Late Contact Info) Description 04/11/2022 Documentation Only [facility] [address] [place] [address] Kylie Gabriel [address] [place] [address] Social History Tobacco Use Types [...] Visit [facility] [address] [place] [address] Dimitris Suarez PA [address] [place] [address] documented as of this encounter Visit Diagnoses Not on filedocumented in this encounter Care Teams Applied Computer Science Professor Relationship Specialty Start Date End Date Truong Colon MD [address] [place] [address] PCP - General Internal Medicine 03/06/23 documented as of this encounter
--- OUTSIDE RECORDS SUMMARY | 2024-05-13 11:43 | XMS_ITS | Encounter Summary ---
Author Organization [facility] Address [address] [place] [address] Phone Care Team Providers Care Metal Furniture Panel Coverer Name Role Phone Truong Colon MD Primary Care Provider +1- [phone] Encounter Details Date Type Department Care Team (Late Contact Info) Description 04/10/2024 Documentation Only [facility] [address] [place] [address] Kylie Gabriel [address] [place] [address] Social History Tobacco Use Types [...] Visit [facility] [address] [place] [address] Dimitris Suarez PA [address] [place] [address] documented as of this encounter Visit Diagnoses Not on filedocumented in this encounter Care Teams Metal Furniture Panel Coverer Relationship Specialty Start Date End Date Truong Colon MD [address] [place] [address] PCP - General Internal Medicine 03/06/23 documented as of this encounter
--- OUTSIDE RECORDS SUMMARY | 2024-05-13 11:43 | XMS_ITS | Encounter Summary ---
Author Organization [facility] [place], Address [address] [place] [address] Phone Care Team Providers Care Superintendent Quarry Name Role Phone Truong Colon MD Primary Care Provider +1- [phone] Encounter Details Date Type Department Care Team (Late st Contact Info) Description 01/14/2024 Documentation Only [facility] [address] [place] [address] [place] [address] [place] [address] Social History Tobacco Use Types [...] Visit [facility] [address] [place] [address] Dimitris Suarez PA [address] [place] [address] [place] [address] documented as of this encounter Visit Diagnoses Not on filedocumented in this encounter Care Teams Superintendent Quarry Relationship Specialty Start Date End Date Truong Colon MD [address] [place] [address] PCP - General Internal Medicine 03/06/23 documented as of this encounter
--- OUTSIDE RECORDS SUMMARY | 2024-05-13 11:43 | XMS_ITS | Encounter Summary ---
Author Organization [facility] Address [address] [place] [address] Phone Care Team Providers Care Boom Operator Name Role Phone Truong Colon MD Primary Care Provider +1- [phone] Encounter Details Date Type Department Care Team (Late Contact Info) Description 10/26/2023 Documentation Only [facility] [address] [place] [address] Kylie Gabriel [address] [place] [address] Social History Tobacco Use Types [...] Visit [facility] [address] [place] [id number] Dimitris Suarez PA [address] [place] [address] documented as of this encounter Visit Diagnoses Not on filedocumented in this encounter Care Teams Boom Operator Relationship Specialty Start Date End Date Truong Colon MD [address] [place] [address] PCP - General Internal Medicine 03/06/23 documented as of this encounter
--- OUTSIDE RECORDS SUMMARY | 2024-05-13 11:43 | XMS_ITS | Encounter Summary ---
Author Organization [facility], Address [address] [place] [address] Phone Care Team Providers Care Genetic Technologist Name Role Phone Truong Colon MD Primary Care Provider +1- [phone] Encounter Details Date Type Department Care Team (Late st Contact Info) Description 01/23/2024 Documentation Only [facility], - Gloria BOONE [address] [place] [phone] Jasmin Dumont [address] [place] [address] Social History Tobacco Use Types [...] Visit [facility], [address] [place] [address] Dimitris Suarez PA [address] [place] [address] documented as of this encounter Visit Diagnoses Not on filedocumented in this encounter Care Teams Genetic Technologist Relationship Specialty Start Date End Date Truong Colon MD [address] [place] [address] PCP - General Internal Medicine 03/06/23 documented as of this encounter
--- OUTSIDE RECORDS SUMMARY | 2024-05-13 11:43 | XMS_ITS | Encounter Summary ---
Author Organization [facility] Address [address] [place] [address] Phone Care Team Providers Care Architectural Project Captain Name Role Phone Truong Colon MD Primary Care Provider +1- [phone] Encounter Details Date Type Department Care Team (Late Contact Info) Description 10/29/2023 Documentation Only [facility] [address] [place] [address] Kylie Gabriel [address] [place] [address] Social History Tobacco Use Types [...] Visit [facility] [address] [place] [phone] Dimitris Suarez PA [address] [place] [address] documented as of this encounter Visit Diagnoses Not on filedocumented in this encounter Care Teams Architectural Project Captain Relationship Specialty Start Date End Date Truong Colon MD [address] [place] [address] PCP - General Internal Medicine 03/06/23 documented as of this encounter
--- OUTSIDE RECORDS SUMMARY | 2024-05-13 11:43 | XMS_ITS | Encounter Summary ---
Author Organization [facility] Address [address] [place] [address] Phone Care Team Providers Care Director Private Music Therapy Agency Name Role Phone Truong Colon MD Primary Care Provider +1- [phone] Encounter Details Date Type Department Care Team (Late Contact Info) Description 05/04/2022 Documentation Only [facility] [address] [place] [address] Kylie Gabriel [address] [place] [address] Social History Tobacco Use Types [...] Visit [facility] [address] [place] [address] Dimitris Suarez PA [address] [place] [address] documented as of this encounter Visit Diagnoses Not on filedocumented in this encounter Care Teams Director Private Music Therapy Agency Relationship Specialty Start Date End Date Truong Colon MD [address] [place] [address] PCP - General Internal Medicine 03/06/23 documented as of this encounter
--- OUTSIDE RECORDS SUMMARY | 2024-05-13 11:43 | XMS_ITS | Encounter Summary ---
Author Organization [facility], Address [address] [place] [address] Phone Care Team Providers Care Pickling Solution Maker Name Role Phone Truong Colon MD Primary Care Provider +1- [phone] Encounter Details Date Type Department Care Team (Late st Contact Info) Description 05/12/2021 Documentation Only [facility] [address] [place] [place] [address] Eligio Meza MD [address] [place] [address] [place] [address] Social History Tobacco Use Types [...] Visit [facility] [address] [place] [place] [address] Dimitris Suarez PA [address] [place] [address] [place] [address] documented as of this encounter Visit Diagnoses Not on filedocumented in this encounter Care Teams Pickling Solution Maker Relationship Specialty Start Date End Date Truong Colon MD [address] [place] [address] PCP - General Internal Medicine 03/06/23 documented as of this encounter
--- OUTSIDE RECORDS SUMMARY | 2024-05-13 11:43 | XMS_ITS | Encounter Summary ---
Author Organization [facility] [place] [facility], Address [address] [place] [address] Phone Care Team Providers Care Gold Layer Name Role Phone Truong Colon MD Primary Care Provider +1- [phone] Encounter Details Date Type Department Care Team (Late st Contact Info) Description 04/14/2022 Documentation Only [facility] [address] [place] [address] Eligio Meza MD [address] [place] [address] [place] [address] Social History Tobacco Use Types [...] Visit [facility] [address] [place] [address] Dimitris Suarez PA [address] [place] [address] [place] [address] documented as of this encounter Visit Diagnoses Not on filedocumented in this encounter Care Teams Gold Layer Relationship Specialty Start Date End Date Truong Colon MD [address] [place] [address] PCP - General Internal Medicine 03/06/23 documented as of this encounter
== END 2024-05-13 10:23 | disposition home or self-care (01) ==
LOC: HO.MAMMO 10:22
PROVIDERS: PCP Internal Medicine; Visit Provider Obstetrics & Gynecology
DX: Z13.820 Encounter for screening for osteoporosis (principal); Z78.0 Asymptomatic menopausal state
CPT/HCPCS: 77080

== ENCOUNTER → 2024-05-13 10:30 | Outpatient (BNV) | payer OTHER, SELFPAY | PROVIDERS: PCP Internal Medicine; Visit Provider Radiology Diagnostic Radiology | DX: Z78.0 Asymptomatic menopausal state (principal) | CPT/HCPCS: 77080 ==

== ENCOUNTER 2024-06-06 13:26 | Outpatient (AMB) | payer OTHER, SELFPAY ==
[2024-06-06 13:28] VITALS: BP 120/76; BMI 33.0
--- NOTE | 2024-06-06 13:28 | MHC.PC.OV ---
Vital Signs 06/06/24 13:28 Height 5 ft 10 in Weight 230 lb BMI 33.0 BP 120/76 Blood Pressure Location Lt brachial Position Sitting Pulse Source Pulse Oximeter Oxygen Delivery Method Room Air Intake Visit Reasons: 4mt f/u Case Operator Required: No Accompanied by: Daughter Allergies Penicillins [PENICILLINS] Allergy (Intermediate, Verified 06/06/24 13:48) rash senna Allergy (Intermediate, Verified 06/06/24 13:48) rash Medication List - Last Reconciled 06/06/24 by Truong Colon MD amlodipine 10 mg PO DAILY bisacodyl 5 mg PO BEDTIME 90 days calcitriol 1 mcg PO WE@1645 cane As directed - use when walking carvedilol 12.5 mg PO BID 90 days [Commode As directed] [DISPOSABLE BED PADS Use as directed ONCE A DAY] [DISPOSABLE GLOVES - LARGE (1 box/month) Use as directed] docusate sodium 100 mg PO DAILY PRN [FEMININE PADS As directed] levothyroxine 125 mcg PO DAILY@0600 [MEDICATED INCONTINENCE WIPES As directed] multivitamin 1 tab PO DAILY omeprazole 40 mg PO DAILY@0630 pregabalin 50 mg PO BEDTIME 90 days [ROLLATOR As directed] Tobacco use date assessed: 06/06/24 Fall risk assessment: No Falls in past year Last assessed Fall Risk: 06/06/24 Dental Screening Dental Screen Date: 06/06/24 Did you have a dental visit in the last 12 months?: No Did you have a dental problem in the last 6 months where you did not have access to dental care?: No Was dental information given to patient?: No HPI 4mt f/u HPI Details Patient comes in today for her follow up visit Stats that she has been experiencing increased anxiety lately as one of her son is undergoing surgery next week for stage 3 gastric cancer and she is worried about how her son will do She would like to get something that she can take when needed to help calm her down as her daughter states that her anxiety has been bothering her a lot lately that she can hardly get any sleep at night at times She denies any headaches but still reports recurrent dizziness, especially after she takes her BP meds Notes that the dizziness tend to last for at least an hour or so before it will slowly subside She denies any chest pains, no increased SOB No nausea/vomiting, no abdominal pain but still reports that she is experiencing trouble swallowing often Describes that she often feels like whatever she swallows gets stuck in her chest for a while She was seeing Dr. Adam for this and is supposedly getting an EGD done in July 2024 although there does not appear to be anything scheduled in July at this time No change in bowel habits noted She had her follow up labs done last month - to discuss her results She is also asking for Rx for a Rollator as she continues to struggle with mobility - she has unsteady gait and has OA of the knees and is currently using a cane to help her move around [facility] Medical History Ambulates with cane Difficulty swallowing Osteoarthritis of right knee BPV (benign positional vertigo) Gait instability Cervicogenic headache Cervicalgia Vertigo Chronic kidney disease, stage III (moderate) Obesity (BMI 30-39.9) Gastritis Benign essential hypertension GERD without esophagitis Acquired hypothyroidism Constipation Lumbar spondylosis Post laminectomy syndrome Connective tissue disease Interstitial lung disease Osteopenia PAC (premature atrial contraction) Sjogrens syndrome Hypothyroid Breast cancer Raynauds disease SAMARA positive Surgical History 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) Hx of colonoscopy Hx of tubal ligation H/O varicose vein stripping History of cataract surgery H/O lumpectomy Hx of cholecystectomy History of back surgery Family History Father Emphysema of lung Cancer Brother Emphysema of lung Mother Bone cancer Son PONV (postoperative nausea and vomiting) Other Arthritis Social History Household Members: Significant Other and Children Housing: Apartment Are you a primary acute care occupational therapist to a significant other at home: No Do you presently have visiting nurse or other home services: No Alcohol intake: former Comment: pt reports this is her baseline pain Patient Tobacco Use Status: Never used Tobacco e-Cigarette/Vaping Use: Never Used Second Hand Smoke Exposure: No service: No Current occupational status: retired Cognitive needs: No Hearing needs: No Vision needs: Yes (Glasses) Questionnaire PHQ-9 Over the last 2 weeks, how often have you been bothered by any of the following problems? 1. Little interest or pleasure in doing things: not at all 2. Feeling down, depressed, or hopeless: not at all 3. Trouble falling or staying asleep, or sleeping too much: not at all 4. Feeling tired or having little energy: not at all 5. Poor appetite or overeating: not at all 6. Feeling bad about yourself - or that you are a failure or have let yourself or your family down: not at all 7. Trouble concentrating on things, such as reading the newspaper or watching television: not at all 8. Moving or speaking so slowly that other people could have noticed. Or the opposite - being so fidgety or restless that you have been moving around a lot more than usual: not at all 9. Thoughts that you would be better off or of hurting yourself in some way: not at all Total score: 0 Depression Screening Interpretation: Negative Depression Screening Done: Yes 11693 - PHQ-9 Billing: Yes Source: Developed by Drs. Timoteo Covington, Lucy Arndt, Guevara Jewell and colleagues, with an educational tere from [employer]. Thrive Questionnaire Date Thrive assessed: 06/06/24 I am a: Patient What is your living situation today?: I have a steady place to live Within the past 12 months, did the food you bought not last and you didn't have the money to get more?: Never true Within the past 12 months, did you worry whether your food would run out before you got money to buy more?: Never true Do you have trouble paying for medicines?: No Do you have trouble getting transportation to medical appointments?: No Do you have trouble paying your heating and electricity bill?: No Do you have trouble taking care of your child, family member or friend?: No Do you have trouble with day-to-day activities such as bathing, preparing meals, shopping, managing finances, etc.?: No Are you currently unemployed and looking for a job?: No Are you interested in more education?: No Please select the resources that you would like help with: None Currently or been in a relationship where the following occur: No concerns reported THRIVE Score: 0 AUDIT C Alcohol Use Questionnaire (AUDIT-C) 1. How often do you have a drink containing alcohol?: Never 3. How often do you have six or more drinks on one occasion?: Never Total Score: 0 Score Reviewed/Action Taken: Yes MO-7 AMB Questionnaire MO-7 Date MO - 7 assessed: 06/06/24 Feeling nervous, anxious, or on edge: 0 = Not at all Not being able to stop or control worryin = Not at all Worrying too much about different things: 0 = Not at all Trouble relaxin = Not at all Being so restless that it is hard to sit still: 0 = Not at all Becoming easily annoyed or irritable: 0 = Not at all Feeling afraid as if something awful might happen: 0 = Not at all Total MO-7 score (0-4 normal; 5-9 mild; 10-14 moderate; 15-21 severe): 0 Source: Developed by Drs. Timoteo Covington, Lucy Arndt, Guevara Jewell and colleagues, with an educational tere from [employer]. Review of Systems Const Denies chills, Denies fatigue, Denies fever(s) and Denies headache(s) ENT Reports dysphagia (reports (+) problems with swallowing at times ), Reports dizziness (on and off), Denies otalgia, Denies headache(s), Denies neck pain, Denies odynophagia and Denies sore throat Card Denies chest pain, Denies rapid heart rate, Denies irregular heart rhythm, Denies palpitations and Denies dyspnea Resp Denies chest congestion, Denies cough and Denies dyspnea GI Denies abdominal pain, Denies constipation, Reports dysphagia (reports (+) problems with swallowing at times ), Denies diarrhea, Denies nausea, Denies odynophagia and Denies vomiting Denies hematuria, Denies urinary frequency, Denies dysuria and Denies urinary urgency Musc Reports abnormal gait (unsteady), Reports back pain (over the lower back - chronic), Denies arthralgias and Denies neck pain Skin/Breast Denies rash Neuro Reports abnormal gait (unsteady), Reports dizziness (on and off), Denies headache(s) and Denies paresthesias Psych Reports anxiety (increasing) Endo Denies fatigue and Denies palpitations Rogelio/Lymph Denies easy bruising Physical exam (Primary Care) Vital Signs: Last Vital Signs BP 120/76 06/06/24 13:28 Oxygen Delivery Method Room Air 06/06/24 13:28 BMI result Body Mass Index 33.0 Tobacco/Smoking Status: Tobacco use Status Tobacco use date assessed 06/06/24 06/06/24 13:32 Patient Tobacco Use Status Never used Tobacco 06/06/24 13:32 e-Cigarette/Vaping Use Never Used 06/06/24 13:32 PHQ-9: PHQ-9 Score PHQ-9: Total score 0 06/06/24 13:58 Depression Screening Interpretation: Negative Thrive Assessment: Date of Thrive Assessment Date Thrive assessed 06/06/24 06/06/24 13:32 Currently or been in a relationship where the following occur: No concerns reported Const General: no acute distress and alert HENMT Ears: TM's normal bilaterally and EAC's normal Throat: Yes posterior oropharynx normal and Yes tonsils normal (no TP congestion) Neck Neck: Yes supple and No lymphadenopathy Thyroid: Thyroid normal Resp Auscultation: clear to auscultation bilaterally (although there is some dullness noted at the left lung base), no rales and no wheezes Cardio Rate: regular rate Rhythm: regular rhythm Heart sounds: no murmurs GI Palpation (GI): Soft to palpation and nontender Auscultation: normal bowel sounds General: Yes no CVA tenderness Back/Spine/Pelvis Back: no CVA tenderness Thoracic/Lumbar Spine: lumbar spinal tenderness (chronic) Skin Rashes: no rashes Extrem General: Yes no clubbing, cyanosis or edema Right lower extremity: knee Details: tenderness; no swelling Results Reviewed Results Reviewed: Laboratory Tests 01/22/24 05/07/24 09:34 09:56 WBC 4.4 L 4.1 L Hgb 12.0 12.2 Hct 38.1 38.5 Plt Count 210 189 Sodium 142 142 Potassium 5.1 5.4 H Creatinine 1.13 1.13 Estimated GFR 46 46 Fasting Glucose 93 89 Calcium 10.0 9.8 Ferritin 281 H AST 22 22 ALT 21 12 Triglycerides 197 H 178 H Cholesterol 173 187 LDL Cholesterol, Calc 96 109 H HDL Cholesterol 38 L 43 25-OH Vitamin D Total 54.3 TSH 1.02 Free T4 1.14 Coding Level of Care Code Est Pt Level 4 (07102) Diagnoses Benign essential hypertension I10 Cervicogenic headache G44.86 Vertigo R42 Acquired hypothyroidism E03.9 Stage 3b chronic kidney disease N18.32 Chronic kidney disease stage 3 subtype: stage 3b (GFR 30-44) Sjogren's syndrome without extraglandular involvement M35.00 Sjogren's organ involvement: without extraglandular involvement GERD without esophagitis K21.9 Dysphagia, unspecified type R13.10 Dysphagia type: unspecified 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 Chronic idiopathic constipation K59.04 Fibromyalgia M79.7 Lumbar spondylosis M47.816 Primary osteoarthritis of right knee M17.11 Anxiety F41.9 Obesity (BMI 30-39.9) E66.9 Additional Codes PHQ-9 - 22384 - PHQ-9 Billing: Yes ([id number]) Assessment & Plan Assessment & Plan (1) Benign essential hypertension: Code(s): I10 - Essential (primary) hypertension Category: Medical Plan: Reinforced low sodium diet - goal is systolic BP of at least 130 to 140 mm or less Continue Amlodipine 10 mg QD and Carvedilol 12.5 mg BID (2) Cervicogenic headache: Code(s): G44.86 - Cervicogenic headache Category: Medical Plan: Patient was seen by Neurology a few months ago and was advised that her headaches are most likely related to her frequent neck pain She was sent for physical therapy further evaluation and management and myofascial release but patient did not go to therapy as her insurance does not cover physical therapy sessions and she has to pay out a co-pay each time she goes She was also started on cyclobenzaprine at bedtime by Neurology, which patient states did not really help (3) Vertigo: Comment: BPV Code(s): R42 - Dizziness and giddiness Category: Medical Plan: Patient was also referred to physical therapy for canalith repositioning but she did not pursue this as her insurance did not cover physical therapy sessions Patient states that her dizziness seems to have subsided significantly recently (4) Acquired hypothyroidism: Code(s): E03.9 - Hypothyroidism, unspecified Category: Medical Plan: Results of her labs done last month reviewed and discussed with patient - her TFTs were normal on her recent labs Continue Levothyroxine 125 mcg QD Will have patient recheck her labs in 4 months for follow up (5) Chronic kidney disease, stage III (moderate): Code(s): N18.30 - Chronic kidney disease, stage 3 unspecified Category: Medical Qualifiers: Chronic kidney disease stage 3 subtype: stage 3b (GFR 30-44) Qualified Code(s): N18.32 - Chronic kidney disease, stage 3b Plan: Patient's renal function appears stable on her recent labs Ww will continue to monitor her renal function closely Follow up with nephrology (Dr. Meza) as scheduled (6) Sjogrens syndrome: Code(s): M35.00 - Sjogren syndrome, unspecified Category: Medical Qualifiers: Sjogren's organ involvement: without extraglandular involvement Qualified Code(s): M35.00 - Sicca syndrome, unspecified Plan: She seen by rheumatology for positive Sjogren's antibody and with sicca symptoms She was initially thought to have Sjogren's syndrome but patient has never had any inflammatory arthritis symptoms or signs and no other extraglandular manifestations of Sjogren's have been detected - was advised that her symptoms are more due to osteoarthritis and that she DOES NOT HAVE SJOGREN'S SYNDROME Follow up with rhuematology as scheduled (7) GERD without esophagitis: Code(s): K21.9 - Gastro-esophageal reflux disease without esophagitis Category: Medical Plan: Dietary restrictions reinforced Continue Omeprazole 40 mg QD Follow up with GI as scheduled (8) Dysphagia: Code(s): R13.10 - Dysphagia, unspecified Category: Medical Qualifiers: Dysphagia type: unspecified Qualified Code(s): R13.10 - Dysphagia, unspecified Plan: Her barium swallow done a couple of years ago showed findings consistent with achalasia / lower esophageal sphincter spasm with associated nonmotility She was sent for a chest CT by GI last year for further evaluation, which then revealed the 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 Membreno Code(s): J98.59 - Other diseases of mediastinum, not elsewhere classified Category: Medical Plan: Patient underwent elective thorascopic surgery for an anterior mediastinal mass/thymectomy with Dr. Membreno back on 03/13/2024 Her postop course was mostly uneventful except for a left-sided pleural effusion, which eventually resolved Her pathology came back benign - thymus gland with no malignancy noted (10) Chronic idiopathic constipation: Code(s): K59.04 - Chronic idiopathic constipation Category: Medical Plan: Reinforced increased oral fluids and dietary fiber Continue Bisacodyl 5 mg QD PRN (11) Fibromyalgia: Code(s): M79.7 - Fibromyalgia Category: Medical Plan: Patient was started on Pregabalin 50 mg daily at bedtime by rheumatology a few months ago Follow-up with rheumatology as scheduled (12) Lumbar spondylosis: Code(s): M47.816 - Spondylosis without myelopathy or radiculopathy, lumbar region Category: Medical Plan: Reinforced activity and weight-lifting restrictions Patient has failed back injections in the past She was successfully trialed on SCS a few months ago and she is now being planned for a permanent SCS implantation Follow up with Pain Management as scheduled Per request, a prescription for a Rollator was provided to the patient (13) Primary osteoarthritis of right knee: Code(s): M17.11 - Unilateral primary osteoarthritis, right knee Category: Medical Plan: Continue Acetaminophen ER 650 mg Q 12 hours PRN Follow up with orthopedics as scheduled (14) Anxiety: Code(s): F41.9 - Anxiety disorder, unspecified Category: Medical Plan: Will try starting her for now on Hydroxyzine 25 mg BID PRN to help with her anxiety (15) Obesity (BMI 30-39.9): Code(s): E66.9 - Obesity, unspecified Category: Medical Plan: Reinforced diet/exercise as tolerated/lose weight Plan Follow up in 4 months Orders: Orders Complete Blood Count Auto Diff 4 Months D64.9 - Anemia, unspecified Lipid Panel 4 Months E78.00 - Pure hypercholesterolemia, unspecified Vitamin D 25-OH Total 4 Months E55.9 - Vitamin D deficiency, unspecified UA CC w/rflx Micro + Cult 4 Months R30.0 - Dysuria Comprehensive [place]. Panel Fast 4 Months E78.00 - Pure hypercholesterolemia, unspecified Thyroid Stimulating Hormone 4 Months E03.9 - Hypothyroidism, unspecified Free T4 (Free Thyroxine) 4 Months E03.9 - Hypothyroidism, unspecified Medications: New hydroxyzine HCl 25 mg PO BID PRN 30 tabs 1RF anxiety [ROLLATOR] As directed 1 ea 0RF M17.11 - Unilateral primary osteoarthritis, right knee, M47.816 - Spondylosis without myelopathy or radiculopathy, lumbar region, M54.50 - Low back pain, unspecified, M96.1 - Postlaminectomy syndrome, not elsewhere classified, R26.81 - Unsteadiness on feet Changed From amlodipine 10 mg PO DAILY 90 tabs 3RF To amlodipine 5 mg PO DAILY 90 days 90 tabs 0RF
--- OUTSIDE RECORDS SUMMARY | 2024-06-06 13:36 | XMS_ITS | Encounter Summary ---
Author Organization [facility] Address [address] [place] [address] Phone Care Team Providers Care Sales And Support Center Agent Name Role Phone Truong Colon MD Primary Care Provider [phone] Reason for Visit * Reason Comments Med Refill Encounter Details Date Type Department Care Team (Late Contact Info) Description 05/11/2024 Refill [facility] [address] [place] [address] Eligio Meza MD [address] [place] [address] [place] [address] Social History Tobacco Use Types [...] Visit [facility] [address] [place] [address] Romero Jimenez MD [address] [place] [address] documented as of this encounter Visit Diagnoses Not on filedocumented in this encounter Care Teams Sales And Support Center Agent Relationship Specialty Start Date End Date Truong Colon MD [address] [place], [place] [id number] PCP - General Internal Medicine 03/06/23 documented as of this encounter
--- OUTSIDE RECORDS SUMMARY | 2024-06-06 13:37 | XMS_ITS ---
Author Organization [facility] Address [address] [place] [address] Care Team Providers Care Air Sealing Technician Name Role Phone Isaiah DURAN, [place] Primary Care Provider Boby Laguerre Unavailable [phone] Allergies Allergen (clinical drug ingredient) Drug/Non Drug Allergy documented on EMR Reaction Allergy Type Onset Date Status sennosides, SNF Senna rash and machado Drug Allergy Active [...] Ordered Date Performed Result Body Sit e 39831-SLWPKAT NAIL, 6 OR MORE 01/24/2024 N/A 30901-Fnek Destruction, 1-14 01/24/2024 N/A 61486-QYGC SKIN LESIONS, OVER 4 01/24/2024 N/A Encounters Encounter Location Date Provider Diagnosis [facility] [address] [address] 01/24/2024 Boby Chapman Atherosclerosis of ute artery of both lower extremities, with unspecified presence of clinical manifestation I70.203 ; Plantar wart B07.0 ; Tinea unguium B35.1 ; Pain in right toe(s) M79.674 ; Pain in left toe(s) M79.675 ; Left foot pain M79.672 and Xerosis of skin L85.3 Assessments Encounter Date Diagnosis (ICD Code) Assessment Notes Treatment Notes Treatment Clinical Notes Section Notes 01/24/2024 Atherosclerosis of ute artery of both lower extremities, with unspecified [...] 01/24/2024 Pending Test Test Name Order Date 38526-SAVXTEE NAIL, 6 OR MORE 01/24/2024 78971-Gvch Destruction, 1-14 01/24/2024 94190-FOXE SKIN LESIONS, OVER 4 01/24/20 24 Next Appt Details Follow Up: 2 Months, Reason: Provider Name:Boby Chapman , 07/31/2024 02:00:00 PM, [address] [facility], [address], [place], [address], Procedure Notes * Category Sub-Category Detail Notes Wart Treatment Procedure Verrucae were de brided to pin-point bleeding margins with sterile 15 surgical blade, silver nitrate chemocautery applied, recomm. immune-boosting meds such as zinc, recomm. follow up with topical chemosurgical agents, Pt defers any other forms of tx - 88965 Debride Nail 6-10 Nail debridement Performance o f this nail treatment by a nonprofessional would put this patients foot and overall health at risk. Therefore, nail debridement was performed extensively to reduce/remove overall nail length, girth, thickness, subungual debris, and necrotic tissue, by manual and/or electrical means through the use of a nail nipper and/or dremel-type inner diameter grinder tool, to a more viable healthy nail plate or bed tissue 6-10. Silver nitrate used for any petechial bleeding as necessary. Definitive antifungal treatment options have been reviewed and discussed with the patient. The patient chooses, no pharmaceutical tx - 46888 Keratoma Treatment Parring or Cutting o f Benign Hyperkeratotic Lesion(s) (-57) More than 4 Lesions - The Benign hyperkeratotic lesions, as described above were pared, and/or cut utilizing a sterile 15 blade, tissue nippers, and/or dremel - 25489 , Q8 Progress Notes * Tommie BLANCASOB:[birth year] (78 yo F)Acc No.[id number]:01/24/2024 Progress Note Patient:?Jacinda BLANCAS Provider:?Boby Chapman DPM :1945???Age:78 Y???Sex:Female D ate:01/24/2024 [address]:[address] [place] [address] Pcp:Truong Colon MD Subjective: * Chief Complaints: [...] trouble?admits.?Confusion?denies.?Fainting/blackouts?denies.?Headache?denies.?Tr emors?denies.? * Medical History:? * Surgical History:?monika bladd er 12/11/2014Unspecified Right Hand SX 03/13/17 [...] 2-3 cups per day. ?Children: yes, 2. ?Exercise: no. ?Marital status: . ?Occupation: Retired. * Medications:?TakingzzzCompre ssion Stockings 20-30mm Hg 1 pair closed toe- knee high . . . amLODIPine Besylate Bisacodyl Calcitriol 0.5 MCG Capsule 1 capsule Orally Once a day Carvedilol Docusate Sodium hydroCHLOROthiazide Omeprazole 20 MG Capsule Delayed Release 1 tablet Orally Once a day Orthopedic Extra Depth Shoes With Custom Heat Molded Multidensity Innersoles 1 Pair shoes with 3 Pair custom heat molded innersoles Wear Daily Ammonium Lactate 12 % Cream 1 application Externally Twice a day Taking zzzCompression Stockings 20-30mm Hg 1 pair closed toe- knee high . . . Taking amLODIPine Besylate Taking Bisacodyl Taking Calcitriol 0.5 MCG Capsule 1 capsule Orally Once a day Taking Carvedilol Taking Docusate Sodium Taking hydroCHLOROthiazide Taking Omeprazole 20 MG Capsule Delayed Release 1 tablet Orally Once a day Taking Orthopedic Extra Depth Shoes With Custom Heat Molded Multidensity Innersoles 1 Pair shoes with 3 Pair custom heat molded innersoles Wear Daily Taking Ammonium Lactate 12 % Cream 1 application Externally Twice a day Not-Taking/PRNAspirin 81 MG Tablet 1 tablet Orally Once a day Folic Acid Levothyroxine Sodium Mapap Tamoxifen Citrate CVS Calcium CVS Gentle Laxative Losartan Potassium traMADol HCl Azithromycin Ibuprofen Flovent HFA Fluticasone Propionate Lidocaine Lisinopril ProAir HFA Propranolol HCl ER Silver sulfADIAZINE Sulfamethoxazole-TMP DS Triamcinolone Acetonide Medication List reviewed and reconciled with the patientNot-Taking/PRN Aspirin 81 MG Tablet 1 tablet Orally Once a day Not-Taking/PRN Folic Acid Not-Taking/PRN Levothyroxine Sodium Not-Taking/PRN Mapap [...] and b urnsPenicillin: rashyes[Allergies Verified] Objective: * Vitals:? * Examination: ???Vascular: ?DP PULSES (B):? 1/4, B/L.?PT PULSES (B):? 0/4, B/L.?CAPILLARY FILL TIME:? delayed, all digits, B/L.?TROPHIC CONDITION-TEXTURE/ELASTICITY/TURGOR/HAIR GROWTH (B):? decreased, with sparse to absent hair growth, B/L.?TEMPERTURE GRADIENT (C):? decreased, cool to cool, proximal to distal, B/L.?PIGMENTATION:? mottled, B/L.?EDEMA (C):?1/4, non-pitting, without aching pain, B/L, Leg(s), Ankle(s).?CLAUDICATION (C):?denies, B/L.?REST PAIN:?denies, B/L.?Nails: ?NAILS are:?Elongated, overgrown, dystrophic, [...] * Assessment: 1.?Plantar wart - B07.0 (Malka ngozi)???Specify :LEFT???2.?Atherosclerosis of ute artery of both lower extremities, with unspecified presence of clinical manifestation - I70.203???3.?Tinea unguium - B35.1???4.?Pain in right toe(s) - M79.674???5.?Pain in left toe(s) - M79.675???6.?Left foot pain - M79.672???7.?Xerosis of skin - L85.3???Specify :Acute problem, Stable (1=3),Response to treatment - Improvement??? Plan: * Treatment: 2.?Atherosclerosis of ute artery of both lower extremities, with unspecified presence of clinical manifestation?Procedure: 26956-ZZHN SKIN LESIONS, OVER 4 3.?Tinea unguium?Procedure: 55607-WTKJEXZ NAIL, 6 OR MORE 4.?Xerosis of skin? [...] use of a nail nipper and/or dremel-type inner diameter grinder tool, to a more viable healthy nail plate or bed tissue 6-10. Silver nitrate used for any petechial bleeding as necessary. Definitive antifungal treatment options have been reviewed and discussed with the patient. The patient chooses, no pharmaceutical tx - 82715.?Keratoma Treatment:?Parring or Cutting of Benign Hyperkeratotic Lesion(s)?(-57) More than 4 Lesions - The Benign hyperkeratotic lesions, as described above were pared, and/or cut utilizing a sterile 15 blade, tissue nippers, and/or dremel - 96342 , Q8.?Wart Treatment:?Procedure?Verrucae were debrided to pin-point bleeding margins with sterile 15 surgical blade, silver nitrate chemocautery applied, recomm. immune-boosting meds such as zinc, recomm. follow up with topical chemosurgical agents, Pt defers any other forms of tx - 04000.? * Procedure Codes:?08065 DEBRI DE NAIL, 6 OR MORE, Modifiers: XS 77137 Wart Destruction, 1-14, Modifiers: XS 88043 TRIM SKIN LESIONS, OVER 4, Modifiers: XS [...] to cont the rx cream as directed.? ??Screening/Special Tests:?Fall Risk?Screening:?No falls in the past year ?FALLS: Screening for Future Fall Risk?Have you had any falls with injury in the past year??No * Follow Up:?2 Months * Images: * Sign off status: Completed true * Provider:?Boby Chapman DPM Date:?2023 Generated for Yovanny toussaint/Leah/eTrannadeen on:?06/06/2024 01:36 PM EST History and Physical Notes * [...]
--- OUTSIDE RECORDS SUMMARY | 2024-06-06 13:37 | XMS_ITS | Encounter Summary ---
Author Organization [facility] Address [address] [place] [address] Phone Care Team Providers Care Hospice Registered Nurse Name Role Phone Truong Colon MD Primary Care Provider +1- [phone] Encounter Details Date Type Department Care Team (Late Contact Info) Description 10/29/2023 Documentation Only [facility] [address] [place] [address] Kylie Gabriel [address] [place] [address] Social History Tobacco Use Types [...] Visit [facility] [address] [place] [address] Romero Jimenez MD [address] [place] [address] [place] [address] documented as of this encounter Visit Diagnoses Not on filedocumented in this encounter Care Teams Hospice Registered Nurse Relationship Specialty Start Date End Date Truong Colon MD [address] [place] [address] PCP - General Internal Medicine 03/06/23 documented as of this encounter
--- OUTSIDE RECORDS SUMMARY | 2024-06-06 13:37 | XMS_ITS | Encounter Summary ---
Author Organization [facility] Address [address] [place] [address] Phone Care Team Providers Care Proposal Review Analyst Name Role Phone Truong Colon MD Primary Care Provider +1- [phone] Encounter Details Date Type Department Care Team (Late st Contact Info) Description 04/14/2022 Documentation Only [facility] [address] [place] [address] Eligio Meza MD [address] [place] [address] [place] [address] Social History Tobacco Use Types [...] Visit [facility] [address] [place] [address] Romero Jimenez MD [address] [place] [address] documented as of this encounter Visit Diagnoses Not on filedocumented in this encounter Care Teams Proposal Review Analyst Relationship Specialty Start Date End Date Truong Colon MD [address] [place] [address] PCP - General Internal Medicine 03/06/23 documented as of this encounter
--- OUTSIDE RECORDS SUMMARY | 2024-06-06 13:37 | XMS_ITS | Encounter Summary ---
Author Organization [facility] Address [address] [place] [address] Phone Care Team Providers Care Gas Booster Engineer Name Role Phone Truong Colon MD Primary Care Provider +1- [phone] Encounter Details Date Type Department Care Team (Late st Contact Info) Description 05/16/2024 Orders Only [facility] [address] [place] [address] Kylie Gabriel [address] [place] [address] Anemia in chronic kidney disease; Stage 3b chronic kidney disease (HCC); Iron deficiency anemia, not otherwise specified Social History Tobacco Use Types Packs/Day Years [...] Visit [facility] [address] [place] [address] Romero Jimenez MD [address] [place] [address] [place] [address] documented as of this encounter Visit Diagnoses Diagnosis Anemia in chronic kidney disease Stage 3b chronic kidney disease (HCC) Iron deficiency anemia, not otherwise specified documented in this encounter Care Teams Gas Booster Engineer Relationship Specialty Start Date End Date Truong Colon MD [address] [place] [address] PCP - General Internal Medicine 03/06/23 documented as of this encounter
--- OUTSIDE RECORDS SUMMARY | 2024-06-06 13:37 | XMS_ITS | Encounter Summary ---
Author Organization [facility] Address [address] [place] [address] Phone Care Team Providers Care Media Analyst Name Role Phone Truong Colon MD Primary Care Provider +1- [phone] Encounter Details Date Type Department Care Team (Late Contact Info) Description 06/03/2024 Documentation Only [facility] [address] [place] [address] Kylie Gabriel [address] [place] [address] Social History Tobacco Use Types [...] Visit [facility] [address] [place] [address] Romero Jimenez MD [address] [place] [address] [place] [address] documented as of this encounter Visit Diagnoses Not on filedocumented in this encounter Care Teams Media Analyst Relationship Specialty Start Date End Date Truong Colon MD [address] [place] [address] PCP - General Internal Medicine 03/06/23 documented as of this encounter
--- OUTSIDE RECORDS SUMMARY | 2024-06-06 13:37 | XMS_ITS | Patient Health Record ---
Author Organization [facility] [place] Address [address] [place] [address] Care Team Providers Care Gas Meter Mechanic Name Role Phone Isaiah DURAN, [place] Primary Care Provider Boby Laguerre Unavailable [phone] Allergies Allergen (clinical drug ingredient) Drug/Non Drug Allergy documented on EMR Reaction Allergy Type Onset Date Status sennosides, HALFWAY Senna rash and machado Drug Allergy Active Penicillin rash Drug Allergy Active Reason For Referral No Information Medications Medication SIG (Take, Route, Frequency, Duration) Notes Start Date End Date Status Aspirin 81 MG 1 tablet Orally Once a day Not-Taking Folic Acid Not-Takin g zzzCompression Stockings 20-30mm Hg . . . for . Not-Taking Orthopedic Extra Depth Shoes With Custom Heat Molded Multidensity Innersoles 1 Pair shoes with 3 Pair custom heat molded innersoles Wear Daily for 365 days Active Tamoxifen Citrate No t-Taking [facility] Calcium Not-Taki ng Levothyroxine Sodium Not-Taking Mapap Not-Taking [facility] Gentle Laxative Not-Taking Sulfamethoxazole-TMP DS Not-Taking Ammonium Lactate 12 % 1 application to affected area Externally Twice a day to dry areas of skin on feet except between toes for 30 days 01/24/2024 Active Triamcinolone Acetonide Not-Taking Silver sulfADIAZINE Not-Taking Flovent HFA Not-Taki ng amLODIPine Besylate Active Fluticasone Propionate Not-Taking Azithromycin Not-Cruz ing Ibuprofen Not-Taking Carvedilol Active ProAir HFA Not-Takin g Docusate Sodium Acti ve Propranolol HCl ER N ot-Taking Bisacodyl Active Lidocaine Not-Taking Calcitriol 0.5 MCG 1 capsule Orally Once a day Active Lisinopril Not-Takin g hydroCHLOROthiazide Active Omeprazole 20 MG 1 tablet Orally Once a day Active Losartan Potassium N ot-Taking traMADol HCl Not-Cruz ing Immunizations Vaccine Route Administration Date Status Comme nts COVID-19 Moderna Vaccine Unknown 07/20/2020 Administere d COVID-19 Moderna Vaccine Unknown 08/17/2020 Administere d Influenza Unknown 03/20/2018 Administered Influenza Unknown 03/20/2019 Administered Social History Tobacco Use: Social History Observation Description Date Details (start date - stop date) Never Smoker NA - NA Alcohol Screen Question Answer Notes Did you have a drink containing alcohol in the p ast year? No Points 0 Interpretation Negative Tobacco use other than smoking: Question Answer Notes Are you an other tobacco user? No Tobacco Control (Standard) Question Answer Notes Tobacco use: Nonsmoker Additional Findings: Tobacco non-user Current no nsmoker Problems Problem Type SNOMED Code ICD Code Onset Dates Problem Status W/U Status Risk Notes Problem Acquired hammer toe of right foot (4349836406893837 ) Other hammer toe(s) (acquired), right foot (M20.41) Active confirmed Response to treatment, Improvemen t Problem Acquired hammer toe of left foot (1163777761455551 ) Other hammer toe(s) (acquired), left foot (M20.42) Active confirmed Response to treatment, Improvemen t Problem [id number] Atherosclerosis of [place] artery of both lower extremities, with unspecified presence of clinical manifestation (I70.203) Active confirmed Vital Signs Blood pressure diastolic 77 mm Hg 05/05/2024 Height 5 ft 9in in 05/05/2024 Blood pressure systolic 126 mm Hg 05/05/2024 Weight 233 lbs 05/05/2024 BMI 34.4 kg/m2 05/05/2024 Procedures Procedure Date Ordered Date Performed Result Body Sit e 87055-XKSOZKF NAIL, 6 OR MORE 06/27/2023 N/A 21718-Ladz Destruction, 1-14 06/27/2023 N/A 29781-Gjwyuqaz Plate 06/27/2023 N/A 29914-Hdvfwhef Plate Each Additional 06/27/2023 N/A 17394-GPTX SKIN LESIONS, OVER 4 06/27/2023 N/A 39053-JCBQYJY NAIL, 6 OR MORE 08/30/2023 N/A 78527-Bgzx Destruction, 1-14 08/30/2023 N/A 23450-Dncoozcx Plate 08/30/2023 N/A 74273-Zlxukxdt Plate Each Additional 08/30/2023 N/A 87892-YLQP SKIN LESIONS, OVER 4 08/30/2023 N/A 26646-JQQYXOU NAIL, 6 OR MORE 11/08/2023 N/A 62367-Vbfu Destruction, 1-14 11/08/2023 N/A 88675-Icpuwhxx Plate 11/08/2023 N/A 21250-Jzqsohbr Plate Each Additional 11/08/2023 N/A 67250-CIEL SKIN LESIONS, OVER 4 11/08/2023 N/A 79448-LQXCPBM NAIL, 6 OR MORE 01/24/2024 N/A 57487-Uyrp Destruction, 1-14 01/24/2024 N/A 47360-PTBA SKIN LESIONS, OVER 4 01/24/2024 N/A 33849-XTLOYXQ NAIL, 6 OR MORE 05/05/2024 N/A 78106-DWWH SKIN LESIONS, OVER 4 05/05/2024 N/A Encounters Encounter Location Date Provider Diagnosis [address] [address] 06/27/2023 Boby Chapman Atherosclerosis of [place] artery of both lower extremities, with unspecified presence of clinical manifestation I70.203 ; Plantar wart B07.0 ; Tinea unguium B35.1 ; Pain in right toe(s) M79.674 ; Pain in left toe(s) M79.675 ; Ingrown nail L60.0 ; Left foot pain M79.672 ; Other hammer toe(s) (acquired), right foot M20.41 and Other hammer toe(s) (acquired), left foot M20.[address] [address] 08/30/2023 Boby Chapman Atherosclerosis of [place] artery of both lower extremities, with unspecified presence of clinical manifestation I70.203 ; Plantar wart B07.0 ; Tinea unguium B35.1 ; Pain in right toe(s) M79.674 ; Pain in left toe(s) M79.675 ; Ingrown nail L60.0 and Left foot pain M79.[address] [address] 11/08/2023 Boby Chapman Atherosclerosis of [place] artery of both lower extremities, with unspecified presence of clinical manifestation I70.203 ; Plantar wart B07.0 ; Tinea unguium B35.1 ; Pain in right toe(s) M79.674 ; Pain in left toe(s) M79.675 ; Ingrown nail L60.0 ; Left foot pain M79.672 and Xerosis of skin L85.[address] [address] 01/24/2024 Boby Chapman Atherosclerosis of [place] artery of both lower extremities, with unspecified presence of clinical manifestation I70.203 ; Plantar wart B07.0 ; Tinea unguium B35.1 ; Pain in right toe(s) M79.674 ; Pain in left toe(s) M79.675 ; Left foot pain M79.672 and Xerosis of skin L85.[address] [address] 05/05/2024 Boby Chapman Atherosclerosis of [place] artery of both lower extremities, with unspecified presence of clinical manifestation I70.203 ; Tinea unguium B35.1 ; Pain in right toe(s) M79.674 ; Pain in left toe(s) M79.675 ; Other hammer toe(s) (acquired), right foot M20.41 and Other hammer toe(s) (acquired), left foot M20.42 Assessments Encounter Date Diagnosis (ICD Code) Assessment Notes Treatment Notes Treatment Clinical Notes Section Notes 06/27/2023 Plantar wart (ICD-10 - B07.0) 06/27/2023 Atherosclerosis of [place] artery of both lower extremities, with unspecified presence of clinical manifestation (ICD-10 - I70.203) 08/30/2023 Plantar wart (ICD-10 - B07.0) 08/30/2023 Atherosclerosis of [place] artery of both lower extremities, with unspecified presence of clinical manifestation (ICD-10 - I70.203) 11/08/2023 Plantar wart (ICD-10 - B07.0) 11/08/2023 Atherosclerosis of [place] artery of both lower extremities, with unspecified presence of clinical manifestation (ICD-10 - I70.203) 01/24/2024 Plantar wart (ICD-10 - B07.0) 01/24/2024 Atherosclerosis of [place] artery of both lower extremities, with unspecified presence of clinical manifestation (ICD-10 - I70.203) 05/05/2024 Tinea unguium (ICD-10 - B35.1) 05/05/2024 Atherosclerosis of [place] artery of both lower extremities, with unspecified presence of clinical manifestation (ICD-10 - I70.203) 05/05/2024 Pain in right toe(s) (ICD-10 - M79.674) 01/24/2024 Tinea unguium (ICD-10 - B35.1) 11/08/2023 Tinea unguium (ICD-10 - B35.1) 08/30/2023 Tinea unguium (ICD-10 - B35.1) 06/27/2023 Tinea unguium (ICD-10 - B35.1) 06/27/2023 Pain in right toe(s) (ICD-10 - M79.674) 08/30/2023 Pain in right toe(s) (ICD-10 - M79.674) 11/08/2023 Pain in right toe(s) (ICD-10 - M79.674) 01/24/2024 Pain in right toe(s) (ICD-10 - M79.674) 05/05/2024 Pain in left toe(s) (ICD-10 - M79.675) 05/05/2024 Other hammer toe(s) (acquired), right foot (ICD-10 - M20.41) 01/24/2024 Pain in left toe(s) (ICD-10 - M79.675) 11/08/2023 Pain in left toe(s) (ICD-10 - M79.675) 06/27/2023 Pain in left toe(s) (ICD-10 - M79.675) 08/30/2023 Pain in left toe(s) (ICD-10 - M79.675) 08/30/2023 Ingrown nail (ICD-10 - L60.0) 06/27/2023 Ingrown nail (ICD-10 - L60.0) 11/08/2023 Ingrown nail (ICD-10 - L60.0) 05/05/2024 Other hammer toe(s) (acquired), left foot (ICD-10 - M20.42) 01/24/2024 Left foot pain (ICD-10 - M79.672) [...] Treatment Pending Test Test Name Order Date 52061-GDHMOQO NAIL, 6 OR MORE 03/21/2017 29030-YWDEACU NAIL, 6 OR MORE 05/30/2017 70041-MQKMJBD NAIL, 6 OR MORE 08/06/2017 15260-YEENTYR NAIL, 6 OR MORE 10/25/2017 92223-JUCSXMG NAIL, 6 OR MORE 03/20/2018 22286-BSLFEXX NAIL, 6 OR MORE 06/13/2018 30560-TQDHRTD NAIL, 6 OR MORE 01/07/2018 78235-GTZBOQC NAIL, 6 OR MORE 08/14/2018 98841-LRPGTXR NAIL, 6 OR MORE 10/17/2018 60358-DUTVOTI NAIL, 6 OR MORE 01/16/2019 94029-IMEAUIU NAIL, 6 OR MORE 04/03/2019 57073-VUVXHHG NAIL, 6 OR MORE 06/16/2019 36369-XLQAOCX NAIL, 6 OR MORE 08/27/2019 30199-SMDSRTN NAIL, 6 OR MORE 12/18/2019 78452-VAHKMZL NAIL, 6 OR MORE 05/06/2020 41980-ZVKVCHB NAIL, 6 OR MORE 07/15/2020 96094-HXHZBDH NAIL, 6 OR MORE 09/29/2020 26242-XAOOMTQ NAIL, 6 OR MORE 12/02/2020 61267-BXFBSYB NAIL, 6 OR MORE 02/17/2021 69774-QSDSBLB NAIL, 6 OR MORE 06/16/2021 06740-EOYTSJX NAIL, 6 OR MORE 08/29/2021 10098-KNECCNE NAIL, 6 OR MORE 11/10/2021 67357-CFDOWAL NAIL, 6 OR MORE 01/19/2022 01784-BWHCCGZ NAIL, 6 OR MORE 04/05/2022 59723-EZTYDBG NAIL, 6 OR MORE 06/15/2022 05999-JOADAXD NAIL, 6 OR MORE 08/24/2022 23216-AJYFFAN NAIL, 6 OR MORE 11/16/2022 33667-NSJSVZQ NAIL, 6 OR MORE 01/25/2023 79984-JZOTSON NAIL, 6 OR MORE 04/11/2023 84046-SLFBPOB NAIL, 6 OR MORE 06/27/2023 30521-DSBYHNF NAIL, 6 OR MORE 08/30/2023 17061-SMFEVGS NAIL, 6 OR MORE 11/08/2023 79646-ZKLCCFR NAIL, 6 OR MORE 01/24/2024 32790-RSCYVDD NAIL, 6 OR MORE 05/05/2024 24639-SEQZWZM NAIL, 1-5 11/01/2016 88732-RWLIFWM NAIL, -5 01/03/2017 24314-KELDCFI NAIL, -5 11/15/2015 04851-QOZZNPU NAIL, -5 01/24/2016 97186-ZMKFMRK NAIL, -5 04/05/2016 36394-FIZOOFA NAIL, -5 06/14/2016 62781-YQIBGDK NAIL, -08/23/2016 96771-Lwlc Destruction, -14 11/01/2016 01574-Bovf Destruction, -14 01/03/2017 40702-Gjfk Destruction, -03/21/2017 56719-Cxoj Destruction, -05/30/2017 78530-Vtck Destruction, 05-0608/06/2017 31916-Zcfa Destruction, 05-0605/06/2020 06862-Vfaq Destruction, 05-0612/18/2019 08079-Dmvy Destruction, 05-0608/27/2019 76164-Lsdf Destruction, 05-0606/16/2019 14097-Ggwx Destruction, 05-0604/03/2019 53687-Ggqk Destruction, 05-0601/16/2019 42157-Kiqf Destruction, 05-0610/17/2018 44781-Wyfc Destruction, 05-0608/14/2018 61660-Vhav Destruction, 05-0606/13/2018 04296-Lgfi Destruction, 05-0610/25/2017 68191-Xdjf Destruction, 05-0601/07/2018 01620-Hdsh Destruction, 05-0608/30/2023 01776-Rhsj Destruction, 05-0606/27/2023 92164-Svhv Destruction, 05-0604/11/2023 02836-Bqfi Destruction, 05-0601/25/2023 76175-Kdfa Destruction, 05-0611/16/2022 52802-Vwfi Destruction, 05-0608/24/2022 78281-Thun Destruction, 05-0606/15/2022 42217-Rdjv Destruction, 05-0604/05/2022 91254-Cbvf Destruction, 05-0601/19/2022 13183-Aijv Destruction, 05-0606/16/2021 33018-Gqgb Destruction, 05-0603/20/2018 10022-Vqth Destruction, 05-0611/10/2021 53485-Zxcc Destruction, 05-0608/29/2021 27151-Uadu Destruction, 05-0602/17/2021 64611-Hlus Destruction, 05-0612/02/2020 01261-Vlbg Destruction, 05-0609/29/2020 09970-Gwty Destruction, 05-0607/15/2020 81858-Hadl Destruction, 05-0601/24/2024 92102-Ebaq Destruction, 05-0611/08/2023 98139-Xsfkwzcg Plate 11/08/2023 31496-Dnfyfdlh Plate 09/29/2020 49418-Meqxujiw Plate 12/02/2020 90065-Hieueuhb Plate 02/17/2021 99227-Ocgttbyo Plate 06/16/2021 21598-Nqhobqgl Plate 08/29/2021 64120-Sosqlwxp Plate 11/10/2021 88744-Otdwtdnc Plate 01/19/2022 31990-Noixxlyu Plate 04/05/2022 68969-Tnzytsid Plate 06/15/2022 34166-Kvyjeyjz Plate 08/24/2022 13400-Dtpppdxu Plate 11/16/2022 79048-Bnldqqhr Plate 01/25/2023 89253-Pkhzyobj Plate 04/11/2023 26759-Snkggouj Plate 06/27/2023 20349-Pidthpsf Plate 08/30/2023 36662-Ogdzmvip Plate 12/18/2019 77517-Kgaayemi Plate 05/06/2020 24904-Xwaanhsm Plate 07/15/2020 33463-Whewlepk Plate 11/01/2016 83737-Gauvzkpp Plate Each Additional 12/2023 77213-Canqgmve Plate Each Additional 09/2023 74230-Cogwlgsr Plate Each Additional 02593-Hdfutfyz Plate Each Additional 08/2022 12117-Ujkobpum Plate Each Additional 88319-Hncwtuqg Plate Each Additional 07/2022 09979-Kpiswtom Plate Each Additional 43982-Kqeuhaet Plate Each Additional 78881-Frtpfwcc Plate Each Additional 04345-Oiiyreof Plate Each Additional 63664-KISI SKIN LESIONS, OVER 4 11/08/19 99179-ILXE SKIN LESIONS, OVER 4 01/24/20 17104-RBFF SKIN LESIONS, OVER 4 05/05/19 84782-GPAQ SKIN LESIONS, OVER 4 06/16/19 77694-LCFC SKIN LESIONS, OVER 4 01/20/20 36306-NOSG SKIN LESIONS, OVER 4 11/11/19 07714-JABH SKIN LESIONS, OVER 4 08/30/19 39126-YFZB SKIN LESIONS, OVER 4 02/18/20 69047-TEEM SKIN LESIONS, OVER 4 12/03/19 56278-ELXB SKIN LESIONS, OVER 4 09/30/19 21 62719-DNBF SKIN LESIONS, OVER 4 07/16/19 21 14284-RRNN SKIN LESIONS, OVER 4 04/05/20 22 52310-KTSM SKIN LESIONS, OVER 4 06/15/19 23 04167-NHEE SKIN LESIONS, OVER 4 08/25/19 24477-FLAP SKIN LESIONS, OVER 4 11/17/19 23 59034-CGHF SKIN LESIONS, OVER 4 01/26/20 02765-MQVW SKIN LESIONS, OVER 4 04/11/20 23 76942-QOMH SKIN LESIONS, OVER 4 06/27/19 24 29861-TWHU SKIN LESIONS, OVER 4 08/30/19 24 49553-ZHLW SKIN LESIONS, OVER 4 03/21/20 17 76493-QOFB SKIN LESIONS, OVER 4 01/04/20 17 61343-DJEU SKIN LESIONS, OVER 4 10/26/19 18 41248-TGRH SKIN LESIONS, OVER 4 08/07/19 18 07076-OOJI SKIN LESIONS, OVER 4 05/30/19 18 61064-YTTH SKIN LESIONS, OVER 4 11/02/19 17 51601-BHPL SKIN LESIONS, OVER 4 06/14/19 17 01451-DRIQ SKIN LESIONS, OVER 4 04/05/20 16 50492-PKRX SKIN LESIONS, OVER 4 08/24/19 17 89252-OTYT SKIN LESIONS, OVER 4 01/24/20 16 90000-WRJN SKIN LESIONS, OVER 4 11/15/19 16 24940-EWJG SKIN LESIONS, OVER 4 08/16/19 16 32430-DPBI SKIN LESIONS, OVER 4 05/06/19 21 97627-JISE SKIN LESIONS, OVER 4 12/18/19 20 46422-AKCS SKIN LESIONS, OVER 4 08/27/19 20 36584-BNBS SKIN LESIONS, OVER 4 04/03/20 19 23112-VDEZ SKIN LESIONS, OVER 4 06/16/19 20 33102-GHOX SKIN LESIONS, OVER 4 01/08/20 18 08679-OFZJ SKIN LESIONS, OVER 4 06/13/19 19 65122-JLCL SKIN LESIONS, OVER 4 08/15/19 19 30653-ZENL SKIN LESIONS, OVER 4 03/20/20 18 17818-YGUP SKIN LESIONS, OVER 4 10/18/19 19 78076-IFUY SKIN LESIONS, OVER 4 01/17/20 19 Y3772-KNDRSEGV DYSTROPHIC NAILS ANY # R0219-GPMLYGPO DYSTROPHIC NAILS ANY # H5237-VQANPSFN DYSTROPHIC NAILS ANY # X3072-XKQTAONA DYSTROPHIC NAILS ANY # L0433-SADETRHN DYSTROPHIC NAILS ANY # G1063-RWRVTHAN DYSTROPHIC NAILS ANY # I6125-UDRYQWHD DYSTROPHIC NAILS ANY # A6273-JKBCTFKN DYSTROPHIC NAILS ANY # Next Appt Details Provider Name:Boby Gwendolyn Chapman , 07/31/2024 02:00:00 PM, [address], [address], [place], [address], Insurance Providers Payer Name Payer Address Payer Phone Subscriber Number Group Number Insured Name Patient Relationship to Insured Coverage Start Date Coverage End Date [facility] [employer] Claims [address] [place] [id number] Jacinda Benavidez Self - patient is the insured Medical (General) History Medical History History ICD Code Anemia Anxiety Arthritis Back,Hip,and Knee pain Cataracts High blood pressure Liver disease Reflux Thyroid disorder Surgical History Surgery Date(Month/Year) gall bladder 12/11/2014 Unspecified Right Hand SX 03/13/17
--- OUTSIDE RECORDS SUMMARY | 2024-06-06 13:37 | XMS_ITS | Encounter Summary ---
Author Organization [facility] Address [address] [place] [address] Phone Care Team Providers Care Child And Youth Program Assistant Name Role Phone Truong Colon MD Primary Care Provider +1- [phone] Encounter Details Date Type Department Care Team (Late Contact Info) Description 05/04/2022 Documentation Only [facility] [address] [place] [address] Kylie Gabriel [address] [place] [address] Social History Tobacco Use Types [...] Visit [facility] [address] [place] [address] Romero Jimenez MD [address] [place] [address] [place] [address] documented as of this encounter Visit Diagnoses Not on filedocumented in this encounter Care Teams Child And Youth Program Assistant Relationship Specialty Start Date End Date Truong Colon MD [address] [place] [address] PCP - General Internal Medicine 03/06/23 documented as of this encounter
--- OUTSIDE RECORDS SUMMARY | 2024-06-06 13:37 | XMS_ITS | Encounter Summary ---
Author Organization [facility] Address [address] [place] [address] Phone Care Team Providers Care Learning Support Resource Room Teacher Name Role Phone Truong Colon MD Primary Care Provider +1- [phone] Encounter Details Date Type Department Care Team (Late Contact Info) Description 05/27/2024 Documentation Only [facility] [address] [place] [address] Kylie Gabriel [address] [place] [address] Social History Tobacco Use Types [...] Visit [facility] [address] [place] [address] Romero Jimenez MD [address] [place] [address] [place] [address] documented as of this encounter Visit Diagnoses Not on filedocumented in this encounter Care Teams Learning Support Resource Room Teacher Relationship Specialty Start Date End Date Truong Colon MD [address] [place] [address] PCP - General Internal Medicine 03/06/23 documented as of this encounter
--- OUTSIDE RECORDS SUMMARY | 2024-06-06 13:37 | XMS_ITS | Encounter Summary ---
Author Organization [facility] Address [address] [place] [address] Phone Care Team Providers Care Plumbing Manager Name Role Phone Truong Colon MD Primary Care Provider +1- [phone] Encounter Details Date Type Department Care Team (Late st Contact Info) Description 05/31/2024 Office Communication [facility] [address] [place] [address] Deisi Wakefield RN [address] [place] [address] Social History Tobacco Use Types [...] Miscellaneous Notes * Telephone Encounter - Deisi Wakefield RN - 05/31/2024 12:06 PM EST Does [facility] have standing orders for lab drawn for Jacinda? I did fax orders today. documented in this encounter Plan of Treatment Upcoming Encounters Date Type Department Care Team (Late st Contact Info) Description 07/16/2024 3:45 PM EDT Office Visit [facility], [address] [place] [address] Romero Jimenez MD [address] [address] documented as of this encounter Visit Diagnoses Not on filedocumented in this encounter Care Teams Plumbing Manager Relationship Specialty Start Date End Date Truong Colon MD [address] [place] [address] [address] [place] [address] PCP - General Internal Medicine 03/06/23 documented as of this encounter
--- OUTSIDE RECORDS SUMMARY | 2024-06-06 13:37 | XMS_ITS | Encounter Summary ---
Author Organization [facility] Address [address] [place] [address] Phone Care Team Providers Care Robotics Mechanic Name Role Phone Truong Colon MD Primary Care Provider +1- [phone] Encounter Details Date Type Department Care Team (Late Contact Info) Description 10/26/2023 Documentation Only [facility] [address] [place] [address] Kylie Gabriel [address] [place] [address] Social History Tobacco Use Types [...] Visit [facility] [address] [place] [address] Romero Jimenez MD [address] [place] [address] [place] [address] documented as of this encounter Visit Diagnoses Not on filedocumented in this encounter Care Teams Robotics Mechanic Relationship Specialty Start Date End Date Truong Colon MD [address] [place] [address] PCP - General Internal Medicine 03/06/23 documented as of this encounter
--- OUTSIDE RECORDS SUMMARY | 2024-06-06 13:37 | XMS_ITS ---
Author Organization [facility] Address [address] [id number] Care Team Providers Care Occupational Therapy Teacher Name Role Phone Truong Colon MD Primary Care Provider +1- [phone] Active Problems Problem Noted Date Diagnosed Date Iron deficiency anemia 05/18/2022 Malignant neoplasm of upper- outer quadrant of left breast in female, estrogen receptor positive 03/28/2017 Gastroesophageal reflux disease without esophagi tis 03/28/2017 Acquired hypothyroidism 03/28/2017 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 Current Oncology Plans No current plan information found. Past Plans Radiation Treatments * No radiation treatments are documented for this patient in [facility]. Treatments may have been administered in another system.
--- OUTSIDE RECORDS SUMMARY | 2024-06-06 13:37 | XMS_ITS ---
Author Organization [facility] Address [address] [facility] [place] [address] Care Team Providers Care Load Manager Name Role Phone Isaiah DURAN, Truong Primary Care Provider Boby Laguerre Unavailable [phone] Allergies Allergen (clinical drug ingredient) Drug/Non Drug Allergy documented on EMR Reaction Allergy Type Onset Date Status sennosides, FPC Senna rash and machado Drug Allergy Active Penicillin rash Drug Allergy Active REASON FOR VISIT At Risk Footcare, Painful Nail(s) aggrevated by shoes and causing difficulty standing/walking., ToeIrritation Medications Medication SIG (Take, Route, Frequency, Duration) Notes Start Date End Date Status Flovent HFA Not-Taki ng Fluticasone Propionate Not-Taking Azithromycin Not-Cruz ing Ibuprofen Not-Taking traMADol HCl Not-Cruz ing Orthopedic Extra Depth Shoes With Custom Heat Molded Multidensity Innersoles 1 Pair shoes with 3 Pair custom heat molded innersoles Wear Daily for 365 days Active Tamoxifen Citrate No t-Taking [facility] Calcium Not-Taki ng [facility] Gentle Laxative Not-Taking Losartan Potassium N ot-Taking Aspirin 81 MG 1 tablet Orally Once a day Not-Taking Folic Acid Not-Takin g zzzCompression Stockings 20-30mm Hg . . . for . Not-Taking Levothyroxine Sodium Not-Taking Mapap Not-Taking Carvedilol Active Docusate Sodium Acti ve hydroCHLOROthiazide Active Omeprazole 20 MG 1 tablet Orally Once a day Active Ammonium Lactate 12 % 1 application to affected area Externally Twice a day to dry areas of skin on feet except between toes for 30 days 01/24/2024 Active amLODIPine Besylate Active Bisacodyl Active Calcitriol 0.5 MCG 1 capsule Orally Once a day Active Sulfamethoxazole-TMP DS Not-Taking Triamcinolone Acetonide Not-Taking ProAir HFA Not-Takin g Propranolol HCl ER N ot-Taking Lidocaine Not-Taking Lisinopril Not-Takin g Silver sulfADIAZINE Not-Taking Social History Tobacco Use: Social History [...] Additional Findings: Tobacco non-user Current no nsmoker Vital Signs Height 5 ft 9in in 05/05/2024 Weight 233 lbs 05/05/2024 BMI 34.4 kg/m2 05/05/2024 Blood pressure systolic 126 mm Hg 05/05/19 25 Blood pressure diastolic 77 mm Hg 025 Procedures Procedure Date Ordered Date Performed Result Body Sit e 99833-ZCRJNIJ NAIL, 6 OR MORE 05/05/2024 N/A 76243-HTUL SKIN LESIONS, OVER 4 05/05/2024 N/A Encounters Encounter Location Date Provider Diagnosis [facility] [address] [address] 05/05/2024 Boby Chapman Atherosclerosis of [place] artery of both lower extremities, with unspecified presence of clinical manifestation I70.203 ; Tinea unguium B35.1 ; Pain in right toe(s) M79.674 ; Pain in left toe(s) M79.675 ; Other hammer toe(s) (acquired), right foot M20.41 and Other hammer toe(s) (acquired), left foot M20.42 Assessments Encounter Date Diagnosis (ICD Code) Assessment Notes Treatment Notes Treatment Clinical Notes Section Notes 05/05/2024 Atherosclerosis of [place] artery of both lower extremities, with unspecified presence of clinical manifestation (ICD-10 - I70.203) 05/05/2024 Tinea unguium (ICD-10 - B35.1) 05/05/2024 Pain in right toe(s) (ICD-10 - M79.674) 05/05/2024 Pain in left toe(s) (ICD-10 - M79.675) 05/05/2024 Other hammer toe(s) (acquired), right foot (ICD-10 - M20.41) 05/05/2024 Other hammer toe(s) (acquired), left foot (ICD-10 - M20.42) Plan Of Treatment Medication Medication Name Sig Start Date Stop Date Notes Orthopedic Extra Depth Shoes With Custom Heat Molded Multidensity Innersoles 1 Pair shoes with 3 Pair custom heat molded innersoles Wear Daily for 365 days Pending Test Test Name Order Date 64852-GHNEXHM NAIL, 6 OR MORE 05/05/2024 54389-QGNU SKIN LESIONS, OVER 4 05/05/19 25 Next Appt Details Follow Up: 2 Months, Reason: Provider Name:Boby Chapman , 07/31/2024 02:00:00 PM, [address] [facility], [address], [place], [address], Procedure Notes * Category Sub-Category Detail Notes Debride Nail 6-10 Nail debridement Due to the cl inical pathology outlined in the exam findings, performance of this nail treatment is medically necessary as its management by an unskilled/untrained nonprofessional would put this patients foot and overall health at risk. Therefore, debridement to affected nail(s), as described in exam ( TA, T1, T3, T4, T5, T6, T9), was performed exclusively by the physician of record to reduce/remove overall nail length, girth, thickness, subungual debris, and necrotic tissue, by manual and/or electrical means through the use of a nail nipper and/or dremel-type grinder mill operator, to a more viable healthy nail plate or bed tissue 6-10 nails in total. Silver nitrate was used for any petechial bleeding as necessary. Definitive antifungal treatment options, both pharmaceutical and surgical, have been reviewed and discussed with the patient. The patient solely prefers the use of intermittent/as needed professional debridement services for their nail condition and understands the need for additional periodic treatments to maintain effectiveness in symptomatic relief - 51628 Keratoma Treatment Parring or Cutting o f Benign Hyperkeratotic Lesion(s) (-57) More than 4 Lesions - Due to the at risk nature of the patients medical condition as documented in the exam findings, performance of this keratoderma treatment is medically necessary as its management by an unskilled/untrained nonprofessional would put this patients foot and overall health at risk. Therefore, the benign hyperkeratotic lesions, ( 9) in total, locations as stated and described in the exam ( Dorsal, PIPJ, T6, Dorsal, PIPJ, T8, SUB MTH (s), 1, Right, SUB MTH (s), 5, B/L , Dorsal, MTH (s), 5, B/L, Plantar, Heel(s), B/L), were pared, and/or cut utilizing a sterile 15 blade, tissue nippers, and/or power dremel instrumentation by the physician of record - 99155, Q8 Progress Notes * Tommie BLANCASOB:[birth year] (78 yo F)Acc No.[id number]:05/05/2024 Progress Note Patient:?Jacinda BLANCAS Provider:?Boby Chapman DPM :1945???Age:78 Y???Sex:Female D ate:05/05/2024 Address:[address] [place], [place] [id number] Pcp:Truong Colon MD Subjective: * Chief Complaints: * ???At Risk FootcarePainful N ail(s) aggrevated by shoes and causing difficulty standing/walking.Toe Irritation * HPI: ???At Risk footcare:?Pt States Last PCP Visit:?Date?02/15/2024 ???Toe pain:?Location:?B/L feet.?Duration:?several years.?Course:?worse.?Aggravated by:?shoes, any pressure.?Treatments:?change in shoes.? * ROS:?General/Constitutional:?Nausea?denies.?Vomiting?admits.?Hunger Thirst?admits.?Loss appetite?denies, denies.?Chills?denies, denies.?Fatigue?denies, denies.?Fever?denies, [...] * Family History:?Mother: dece ased, diagnosed with Other malignant neoplasm of unspecified site, Family history of arthritis.?Father: , diagnosed with Other malignant neoplasm of unspecified site. Daughter(s): alive.?Son(s): alive.?Spouse: alive.?1 son(s) , 1 daughter(s) - healthy. .? * Social History:?Tobacco Use:?Tobacco use other than smoking?Are you an other tobacco user??No ?Tobacco Control (Standard)?Tobacco use:?Nonsmoker ?Additional Findings: Tobacco non-user?Current nonsmoker ???Drugs/Alcohol:?Drugs?Have you used drugs other than those for medical reasons in the past 12 months??No ?Alcohol Screen?Did you have a drink containing alcohol in the past year??No ?Points?0 ?Interpretation?Negative ???Miscellaneous:?Caffeine: 2-3 cups per day. ?Children: yes, 2. ?Exercise: no. ?Marital status: . ?Occupation: Retired. * Medications:?TakingamLODIPin e Besylate Bisacodyl Calcitriol 0.5 MCG Capsule 1 capsule Orally Once a day Carvedilol Docusate Sodium hydroCHLOROthiazide Omeprazole 20 MG Capsule Delayed Release 1 tablet Orally Once a day Ammonium Lactate 12 % Cream 1 application to affected area Externally Twice a day to dry areas of skin on feet except between toes Orthopedic Extra Depth Shoes With Custom Heat Molded Multidensity Innersoles 1 Pair shoes with 3 Pair custom heat molded innersoles Wear Daily Taking amLODIPine Besylate Taking Bisacodyl Taking Calcitriol 0.5 MCG Capsule 1 capsule Orally Once a day Taking Carvedilol Taking Docusate Sodium Taking hydroCHLOROthiazide Taking Omeprazole 20 MG Capsule Delayed Release 1 tablet Orally Once a day Taking Ammonium Lactate 12 % Cream 1 application to affected area Externally Twice a day to dry areas of skin on feet except between toes Taking Orthopedic Extra Depth Shoes With Custom Heat Molded Multidensity Innersoles 1 Pair shoes with 3 Pair custom heat molded innersoles Wear Daily Not-Taking/PRNzzzCompression Stockings 20-30mm Hg 1 pair closed toe- knee high . . . Aspirin 81 MG Tablet 1 tablet Orally Once a day Folic Acid Levothyroxine Sodium Mapap Tamoxifen Citrate CVS Calcium CVS Gentle Laxative Losartan Potassium traMADol HCl Azithromycin Ibuprofen Flovent HFA Fluticasone Propionate Lidocaine Lisinopril ProAir HFA Propranolol HCl ER Silver sulfADIAZINE Sulfamethoxazole-TMP DS Triamcinolone Acetonide Medication List reviewed and reconciled with the patientNot-Taking/PRN zzzCompression Stockings 20-30mm Hg 1 pair closed toe- knee high . . . Not-Taking/PRN Aspirin 81 MG Tablet 1 tablet Orally Once a day Not-Taking/PRN Folic Acid Not-Taking/PRN Levothyroxine Sodium Not- Taking/PRN Mapap Not-Taking/PRN Tamoxifen Citrate Not-Taking/PRN CVS Calcium Not-Taking/PRN CVS Gentle Laxative Not-Taking/PRN Losartan Potassium Not-Taking/PRN traMADol HCl Not-Taking/PRN Azithromycin Not-Taking/PRN Ibuprofen Not-Taking/PRN Flovent HFA Not-Taking/PRN Fluticasone Propionate Not-Taking/PRN Lidocaine Not-Taking/PRN Lisinopril Not-Taking/PRN ProAir HFA Not-Taking/PRN Propranolol HCl ER Not- Taking/PRN Silver sulfADIAZINE Not-Taking/PRN Sulfamethoxazole-TMP DS Not-Taking/PRN Triamcinolone Acetonide Medication List reviewed and reconciled with the patient * Allergies:?Senna: rash and b urnsPenicillin: rashyes[Allergies Verified] Objective: * Vitals:?Ht: 5 ft 9in, Wt: 23 3, BMI: 34.4, Shoe size: 11W, BP: 126/77 mm Hg, Ht- cm: 175.26 cm, Wt-k.69 kg. * Examination: ???Vascular: ?DP PULSES (B):? 1/4, [...] TA, T1, T3, T4, T5, T6, T9, all other nails not described with characteristics as possessing mycosis are elongated, overgrown, and dystrophic.?Dermatologic: ?SKIN FINDINGS:?Skin exam reveals Keratotic lesion(s) located at, Dorsal, PIPJ, T6, Dorsal, PIPJ, T8, SUB MTH (s), 1, Right, SUB MTH (s), 5, B/L , Dorsal, MTH (s), 5, B/L, Plantar, Heel(s), B/L.?VERRUCA:?NOW NO FURTHER SIGN of mosaic papule(s) with skin lines now evident and visible, plantar Forefoot, LEFT.?Orthopedic: ?MUSCLE STRENGTH:?5/5 all groups in a symmetrical fashion, B/L.?DIGITAL DEFORMITIES:?Digital contracture, PIPJ, 2-5 B/L, incompl- nonreducible to push-up test, medial under lapping - T3, T4, with evidence of shoe producing skin irritation.?FOOTWEAR:?worn, OT were inspected and noted to be severely worn , in poor condition not giving proper support at the present time, shoe gear properties exacerbate patients foot/toe deformity.?Neurological: ?SENSORY:?Neurological exam reveals intact sensorium, pain sensation normal, vibration sensation intact, pinprick sensation is normal in the lower extremities, Pt denies, anesthesia, burning, paresthesia, tingling, B/L.?General Examination: ?GENERAL APPEARANCE:?Reveals a pleasant, alert, well nourished, well- developed, well hydrated individual, who demonstrates proper attention to hygiene/body habitus, and is in no acute distress , Pt accompanied by , , who serves as , Drawer Fitter/Coremaker , additional Historian , and/who is physically present in exam room at time of visit.?ORIENTED:?person, place, and time.?FOOT EXAM:?Footwear Evaluation? Assessment: * Assessment: 1.?Tinea unguium - B35.1???2 .?Atherosclerosis of [place] artery of both lower extremities, with unspecified presence of clinical manifestation - I70.203 (Primary)???3.?Pain in right toe(s) - M79.674???4.?Pain in left toe(s) - M79.675 ??5.?Other hammer toe(s) (acquired), right foot - M20.41???Specify :Chronic problem, Worse (4),Rx Management (4)???6.?Other hammer toe(s) (acquired), left foot - M20.42???Specify :Chronic problem, Worse (4),Rx Management (4)??? Plan: * Treatment: 2.?Tinea unguium?Procedure: 21300-MYYRHXJ NAIL, 6 OR MORE 3.?Other hammer toe(s) (acqu ired), right foot? Start Orthopedic Extra Depth Shoes, With Custom Heat Molded Multidensity Innersoles, 1 Pair shoes with 3 Pair custom heat molded innersoles, Wear, Daily, 365 days, 2, Refills 0.?? * Procedures:?Debride Nail 6-10:?Nail debridement?Due to the clinical pathology outlined in the exam findings, performance of this nail treatment is medically necessary as its management by an unskilled/untrained nonprofessional would put this patients foot and overall health at risk. Therefore, debridement to affected nail(s), as described in exam (?TA,?T1,?T3,?T4,?T5,?T6,?T9), was performed exclusively by the physician of record to reduce/remove overall nail length, girth, thickness, subungual debris, and necrotic tissue, by manual and/or electrical means through the use of a nail nipper and/or dremel-type grinder mill operator, to a more viable healthy nail plate or bed tissue 6- 10 nails in total. Silver nitrate was used for any petechial bleeding as necessary. Definitive antifungal treatment options, both pharmaceutical and surgical, have been reviewed and discussed with the patient. The patient solely prefers the use of intermittent/as needed professional debridement services for their nail condition and understands the need for additional periodic treatments to maintain effectiveness in symptomatic relief - 24964.?Keratoma Treatment:?Parring or Cutting of Benign Hyperkeratotic Lesion(s)?(-57) More than 4 Lesions - Due to the at risk nature of the patients medical condition as documented in the exam findings, performance of this keratoderma treatment is medically necessary as its management by an unskilled/untrained nonprofessional would put this patients foot and overall health at risk. Therefore, the benign hyperkeratotic lesions, ( 9) in total, locations as stated and described in the exam (?Dorsal,?PIPJ,?T6,?Dorsal,?PIPJ,?T8,?SUB MTH (s),?1,?Right,?SUB MTH (s),?5,?B/L?,?Dorsal,?MTH (s),?5,?B/L,?Plantar,?Heel(s),?B/L), were pared, and/or cut utilizing a sterile 15 blade, tissue nippers, and/or power dremel instrumentation by the physician of record - 92797, Q8.? * Procedure Codes:?62001 DEBRI DE NAIL, 6 OR MORE, Modifiers: XS 36889 TRIM SKIN LESIONS, OVER 4, Modifiers: XS , Q8 * Preventive Medicine:? ??Counseling:?Discussion:?-14: Office or other outpatient visit for the evaluation and management of an established patient, which required a medically appropriate history and/or examination and MODERATE level of DECISION MAKING for: 1 OR MORE CHRONIC PROBLEM(S) THATS WORSENING, 2 STABLE CHRONIC PROBLEMS, A NEWLY DIAGNOSED PROBLEM WITH UNCERTAIN PROGNOSIS, AN ACUTE COMPLICATED INJURY WITH MULTIPLE TREATMENT OPTIONS, OR AN ACUTE PROBLEM WITH ACCOMPANYING SYSTEMIC SYMPTOMS, THAT POSE(S) A MODERATE RISK OF MORBIDITY. THIS CONDITION MAY ALSO INCLUDE RX DRUG MANAGEMENT, OR A DECISON FOR MINOR SURGERY. The visit on the day of the [...] have encouraged the patient to call the office.?Digital Surgery:?Digital surgery was discussed with the patient, We elected to try conservative treatment at the present time, due to the patients medical history and increased asssociated post-operative risks.?Digital Treatment:?HT- I explained to the patient the possible etiologies of Hammertoes, including genetics/foot type/shoegear/activity level/exercise routine and the risks/benefits of all the different treatment options for their pain including: No treatment at all, Rest, Ice, New/supportive/wider/deeper Shoegear, Digital Padding/Strapping/Taping/Bracing/Gel protective sleeves, Foot/Ankle AFO Bracing, Stretching exercises, Deep Tissue Massage, Arch support/shoe inserts with splay metatarsal padding, and Custom orthoses. I insisted that any digital devices be removed daily and not worn overnight for safety. The patient is to carefully examine the toes daily for any skin irritation while using any splinting or padding device. The advantages and disadvantages of each option were discussed and the patients questions re: shoegear, padding, custom vs prefabricated inserts, activity level, and consistency in home treatment regimens for optimal success were answered to their verbally confirmed satisfaction.?Shoe Gear Counseling:?SHOE Rx - The patient was counseled in great detail on their muscoloskeletal foot and toe deformities which coincided with the dermatological presentations visualized on exam. We discussed how their deformities put the integrity of their feet at risk for potential pedal complications which makes the accomidative diabetic shoes and cutomizable inserts medically necessary. We discussed the different shoe and insert treatment types and options, as well as the important advantages for adhering to regularly wearing these accomidative devices daily. The patient was made aware of the fact that a failure to abide by these recommedations may be deleterious to their foot health as they are able to prevent many pedal complications such as skin irritation, skin ulceration, infection, and even loss of toe/foot/leg/or life. Time was also spent with the patient dispensing and discussing proper diabetic footcare techniques including daily skin moisturization, daily foot inspection for any interruption in skin integrity including open lesions, or sign of infection such as redness/malodor/drainage/swelling. Also discussed and recommended were procedures regarding daily shoe inspection for the presence of internal foreign bodies as well as any visualized irregular shoe or insert wear. Patient questions re: shoes, inserts, and self foot inspections were answered to their satisfaction as the patient verbally confirmed a full understanding of the above information. A Rx for Extra Depth Orthopedic Shoes with 3 pair of custom heat-molded inserts was dispensed.? ??Screening/Special Tests:?Fall Risk?Screening:?No falls in the past year ?FALLS: Screening for Future Fall Risk?Have you had any falls with injury in the past year??No * Follow Up:?2 Months * Images: * Sign off status: Completed true * Provider:?Boby Chapman DPM Date:?2024 Generated for Yovanny toussaint/Leah/Lois on:?06/06/2024 01:37 PM EST History and Physical Notes * HPI (History of Present Illness) Category Sub-Category Detail Notes Category Not es Toe pain Location: B/L feet Duration: several years Course: worse Aggravated by: shoes, any pressure Treatments: change in shoes At Risk footcare Pt States Last PCP Visit: Date: 4 Examination Category Sub-Category Detail Notes Category Not es Neurological SENSORY: Neurological exa m reveals intact sensorium, pain sensation normal, vibration sensation intact, pinprick sensation is normal in the lower extremities, Pt denies, anesthesia, burning, paresthesia, tingling, B/L Dermatologic SKIN FINDINGS: Skin exam reveal s Keratotic lesion(s) located at, Dorsal, PIPJ, T6, Dorsal, PIPJ, T8, SUB MTH (s), 1, Right, SUB MTH (s), 5, B/L , Dorsal, MTH (s), 5, B/L, Plantar, Heel(s), B/L VERRUCA: NOW NO FURTHER SIGN of mosaic papule(s) with skin lines now evident and visible, plantar Forefoot, LEFT Orthopedic FOOTWEAR: worn, OT were in spected and noted to be severely worn , in poor condition not giving proper support at the present time, shoe gear properties exacerbate patients foot/toe deformity DIGITAL DEFORMITIES: Digital contracture , PIPJ, 2-5 B/L, incompl-nonreducible to push-up test, medial under lapping - T3, T4, with evidence of shoe producing skin irritation MUSCLE STRENGTH: 5/5 all groups in a symmetrical fashion, B/L General Examination GENERAL APPEARANCE: Reveals a pleasant, alert, well nourished, well-developed, well hydrated individual, who demonstrates proper attention to hygiene/body habitus, and is in no acute distress , Pt accompanied by , , who serves as , Drawer Fitter/Coremaker , additional Historian , and/who is physically present in exam room at time of visit FOOT EXAM: Lower Extremity Neurological Exa m performed:: Yes Visual exam of foot performed:: Yes Date: 05/05/2024 ORIENTED: person, place, and t tank Footwear Evaluation Footwear Evaluation performe d:: Yes Vascular DP PULSES (B): 1/4, B/L PT [...] TA, T1, T3, T4, T5, T6, T9, all other nails not described with characteristics as possessing mycosis are elongated, overgrown, and dystrophic
--- OUTSIDE RECORDS SUMMARY | 2024-06-06 13:37 | XMS_ITS | Encounter Summary ---
Author Organization [facility] Address [address] [place] [address] Phone Care Team Providers Care Competitive Athlete Name Role Phone Truong Colon MD Primary Care Provider [phone] Encounter Details Date Type Department Care Team (Late st Contact Info) Description 05/12/2021 Documentation Only [facility] [address] [place] [address] Eligio Meza MD [address] [place] [address] [place] [address] Social History Tobacco Use Types [...] Visit [facility] [address] [place] [address] Romero Jimenez MD [address] [facility] [place] [address] documented as of this encounter Visit Diagnoses Not on filedocumented in this encounter Care Teams Competitive Athlete Relationship Specialty Start Date End Date Truong Colon MD [address] [place] [address] PCP - General Internal Medicine 03/06/23 documented as of this encounter
--- OUTSIDE RECORDS SUMMARY | 2024-06-06 13:37 | XMS_ITS | Encounter Summary ---
Author Organization [facility] Address [address] [place] [address] Phone Care Team Providers Care Web Worker Name Role Phone Truong Colon MD Primary Care Provider [phone] Encounter Details Date Type Department Care Team (Late st Contact Info) Description 12/21/2021 Documentation Only [facility] [address] [place] [address] Dimitris Suarez PA Social History Tobacco Use Types Packs/Day Years [...] Visit [facility] [address] [place] [address] Romero Jimenez MD [address] [place] [address] [place] [id number] documented as of this encounter Visit Diagnoses Not on filedocumented in this encounter Care Teams Web Worker Relationship Specialty Start Date End Date Truong Colon MD [address] [place], [place] [id number] PCP - General Internal Medicine 03/06/23 documented as of this encounter
--- OUTSIDE RECORDS SUMMARY | 2024-06-06 13:37 | XMS_ITS | Continuity of Care Document ---
Author Organization [facility] Address [address] [place] [address] Phone Care Team Providers Care Administrative Medical Director Name Role Phone Amanuel DURAN FACS RVT [...] Providers Copied on Encounter [facility], [address]Jose [place], [id number], [place] tel:[phone] [place] - [place] No Information 3 Amanuel DURAN FACS T SIMÓN Pinto. [address] [facility], [address], [place], [address], [place]. [phone] Referring Provider: Truong Colon MD, [address], [place], [address]. tel:[phone] Office/Outpt E&M Established 25 Mins [facility], [address] [place] [address] Dr [address] [place], [id number], [place] tel:[phone] [place] Body mass index (BMI) 34.0-34.9, adultVenous insufficiency (chronic) (peripheral) 3 Amanuel DURAN FACS Yoni Pinto. [address] [place] [address], [place] [address], [place], [address], [place]. [phone] Referring Provider: Truong Colon MD, [address], [place], [address]. tel:[phone] 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 [address] [place] [address], [address], [place], [address], [place]. [phone] Referring Provider: Truong Colon MD, [address], [place], [address]. tel:[phone] 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 [facility], [address], [place], [address], [place]. tel:[phone] Referring Provider: Truong Colon MD, [address], [place], [address]. tel:[phone] [facility], [address] [place] [address] [address]Jose [place], [id number], [place] tel:[phone] [place] Encntr for f/u exam aft trtmt for cond oth than malig neoplmVenous insufficiency (chronic) (peripheral) 3 Amanuel DURAN FACS RVT SIMÓN Pinto. [address] [facility], [facility] [address], [place], [address], [place]. tel:[phone] Referring Provider: Truong Colon MD, [address] [place] [address] Dr [address], [place], [address]. tel:[phone] 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 [address] [facility], [facility] [address], [place], [address], [place]. [phone] Referring Provider: Truong Colon MD, [address] [place] [address] Dr [address], [place], [address]. tel:[phone] 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 [address] [facility], [facility] [address], [place], [address], [place]. tel:[phone] Referring Provider: Truong Colon MD, [address], [place], [address]. tel:[phone] Family History Family Member Type Diagnosis Age At Onset No Information Payers Payer name Insurance type Covered libertarian ID Josefina haynes(s) [facility] [id number] Social History Type Description Quantity Date Captured [...]
--- OUTSIDE RECORDS SUMMARY | 2024-06-06 13:37 | XMS_ITS | Encounter Summary ---
Author Organization [facility] [place], Address [address] [place] [address] Phone Care Team Providers Care Cupola Liner Name Role Phone Truong Colon MD Primary Care Provider +1- [phone] Encounter Details Date Type Department Care Team (Late st Contact Info) Description 01/14/2024 Documentation Only [facility] [address] [place] [address] Pricilla De [place], [place] [address] [place] [address] Social History Tobacco Use Types [...] Visit [facility] [address] [place] [address] Romero Jimenez MD [address] [place] [address] [place] [address] documented as of this encounter Visit Diagnoses Not on filedocumented in this encounter Care Teams Cupola Liner Relationship Specialty Start Date End Date Truong Colon MD [address] [place] [address] PCP - General Internal Medicine 03/06/23 documented as of this encounter
--- OUTSIDE RECORDS SUMMARY | 2024-06-06 13:37 | XMS_ITS | Encounter Summary ---
Author Organization [facility] Address [address] [place] [address] Phone Care Team Providers Care Refrigeration Engineer Name Role Phone Truong Colon MD Primary Care Provider +1- [phone] Encounter Details Date Type Department Care Team (Late st Contact Info) Description 01/21/2024 Orders Only [facility] [address] [place] [address] Dimitris Suarez PA Stage 3a chronic kidney disease (HCC); Essential [...] Visit [facility] [address] [place] [address] Romero Jimenez MD [address] [place] [address] [place] [address] documented as of this encounter Visit Diagnoses Diagnosis Stage 3a chronic kidney disease (HCC) Essential hypertension Peripheral vascular disease (HCC) Peripheral vascular disease Renal osteodystrophy documented in this encounter Care Teams Refrigeration Engineer Relationship Specialty Start Date End Date Truong Colon MD [address] [place] [address] PCP - General Internal Medicine 03/06/23 documented as of this encounter
--- OUTSIDE RECORDS SUMMARY | 2024-06-06 13:37 | XMS_ITS | Encounter Summary ---
Author Organization [facility], Address [address] [place] [address] Phone Care Team Providers Care Nutrition Services Manager Name Role Phone Truong Colon MD Primary Care Provider +1- [phone] Reason for Visit * Reason Onset Date Comments reminder for labs 06/05/2024 Encounter Details Date Type Department Care Team (Late Contact Info) Description 06/05/2024 Telephone [facility] [address] [place] [address] Deisi Wakefield RN [address] [place] [address] reminder for labs Social History Tobacco Use Types Packs/Day Years [...] Telephone Encounter - Deisi Wakefield RN - 06/05/2024 5:02 PM EST I spoke with pt granddaughter explaining pt needs to get her labs drawn q 28 days. I also told her pt has to remember this as her Retacrit appts have been canceled due to no current labs. Pt has standing orders at [facility]. Pt will go this week. documented in this encounter Plan of Treatment Upcoming Encounters Date Type Department Care Team (Late Contact Info) Description 07/16/2024 3:45 PM EDT Office Visit [facility] [place], [address] [place] [address] Romero Jimenez MD [address] [place] [id number] documented as of this encounter Visit Diagnoses Not on filedocumented in this encounter Care Teams Nutrition Services Manager Relationship Specialty Start Date End Date Truong Colon MD [address] [place] [address] DR[address] [place] [address] PCP - General Internal Medicine 03/06/23 documented as of this encounter
--- OUTSIDE RECORDS SUMMARY | 2024-06-06 13:37 | XMS_ITS | Encounter Summary ---
Author Organization [facility] Address [address] [place] [address] Phone Care Team Providers Care Heating Element Repairer Name Role Phone Truong Colon MD Primary Care Provider +1- [phone] Encounter Details Date Type Department Care Team (Late Contact Info) Description 04/11/2022 Documentation Only [facility] [address] [place] [address] Kylie Gabriel [address] [place] [address] Social History Tobacco Use Types [...] Visit [facility] [address] [place] [address] Romero Jimenez MD [address] [place] [address] [place] [address] documented as of this encounter Visit Diagnoses Not on filedocumented in this encounter Care Teams Heating Element Repairer Relationship Specialty Start Date End Date Truong Colon MD [address] [place] [address] PCP - General Internal Medicine 03/06/23 documented as of this encounter
--- OUTSIDE RECORDS SUMMARY | 2024-06-06 13:37 | XMS_ITS | Clinical Summary ---
Author Organization [facility] Address [address] [place] [address] Care Team Providers Care Truer Pinion And Wheel Name Role Phone Truong Colon MD Primary Care Provider +1- [phone] Allergies Active Allergy Reactions Criticality Noted Date Comments Penicillins Rash Low 03/27/2017 Medications Medication Sig Dispensed Refills Start Date End Date Status omeprazole (PRILOSEC) 20 MG capsule Take 1 capsule (20 mg total) by mouth daily. 0 Active Ergocalciferol (CALCIFEROL PO) Take by mouth. 0 Activ e levothyroxine (SYNTHROID) tablet 112 mcg Take 1 tablet (112 mcg total) by mouth every morning on an empty stomach. 0 Active amLODIPine (NORVASC) tablet 5 mg Take 2 tablets (10 mg total) by mouth daily. 0 Active carvedilol (COREG) 3.125 MG tablet Take 4 tablets (12.5 mg total) by mouth 2 (two) times a day with meals. 0 Active bisacodyl (DULCOLAX) 5 MG EC tablet Take 1 tablet (5 mg total) by mouth daily as needed for constipation. 0 Active docusate sodium (COLACE) 100 MG capsule Take 1 capsule (100 mg total) by mouth 2 (two) times a day. 0 Active acetaminophen (TYLENOL) 650 MG CR tablet Take 1 tablet (650 mg total) by mouth every 8 (eight) hours as needed for pain. 0 Active calcitriol (ROCALTROL) 0.5 MCG capsule Take 1 capsule (0.5 mcg total) by mouth once a week. 0 Active Eliquis 2.5 MG TABS tablet 0 04/28/2022 Active Multiple Vitamin (MULTIVITAMIN ADULT PO) Take by mouth. 0 10/12/2015 Active Active Problems Problem Noted Date Diagnosed Date Iron deficiency anemia 05/18/2022 Malignant neoplasm of upper- outer quadrant of left breast in female, estrogen receptor positive 03/28/2017 Gastroesophageal reflux disease without esophagi tis 03/28/2017 Acquired hypothyroidism 03/28/2017 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 Social History Tobacco Use Types Packs/Day Years Used Date Smoking Tobacco: Never Smokeless Tobacco: Never Alcohol Use Standard Drinks/Week Comments No 0 (1 standard drink = 0.6 oz pur e alcohol) Sex and Gender Information Value Date Recorded Sex Assigned at Not on file Gender Identity Not on file Sexual Orientation Not on file Job Start Date Occupation Industry Not on file Not on file Not on file Last Filed Vital Signs Vital Sign Reading Time Taken Comments Blood Pressure 120/56 10/03/2023 11:30 AM EDT Pulse 62 10/03/2023 11:30 AM EDT Temperature 36.8 ??C (98.2 ??F) 10/03/2023 1 1:30 AM EDT Respiratory Rate 20 05/19/2022 2:40 PM EST Oxygen Saturation 97% 10/03/2023 11: 30 AM EDT Inhaled Oxygen Concentration - - Weight 106.1 kg (233 lb 12.8 oz) 2023 11:30 AM EDT Height 177.8 cm (5' 10 ) 10/03/2023 11: 30 AM EDT Body Mass Index 33.55 10/03/2023 11:30 AM EDT Plan of Treatment Health Maintenance Due Date Last Done Comments COVID-19 Vaccine (#1) 08/30/1950 Depression Screening 1957 Preventative Health Evaluation 08/30/1961 DTap / Tdap / Td (1 - Tdap) 08/30/1962 Shingrix-Zoster Vaccine (1 of 2) 08/30/1962 Fall Risk Assessment 08/30/2008 Osteoporosis Screening (DEXA Scan) 08/30/2008 RSV Adult > 60+ Yrs or (1 - 1-dose 75+ series) 08/30/2018 Influenza Vaccine (#1) 2023 2, 05/10/2021, 01/29/2020, Additional history exists Hepatitis B Vaccines Completed 08/30/2015, 04/05/2015, 03/01/2015 Pneumococcal Vaccine Completed 03/18/2019, 04/07/2016, 02/13/2014, Additional history exists RSV Ped < 20 months Aged Out No longe r eligible based on patient's age to complete this topic Care Teams Truer Pinion And Wheel Relationship Specialty Start Date End Date Truong Colon MD [address] Parekh [facility] [place] [id number] PCP - General Internal Medicine 05/19/22
--- OUTSIDE RECORDS SUMMARY | 2024-06-06 13:37 | XMS_ITS | Encounter Summary ---
Author Organization [facility] Address [address] [place] [address] Phone Care Team Providers Care National Secretary Name Role Phone Truong Colon MD Primary Care Provider +1- [phone] Encounter Details Date Type Department Care Team (Late Contact Info) Description 01/31/2024 Documentation Only [facility] [address] [place] [address] Kylie Gabriel [address] [place] [address] Social History Tobacco Use Types [...] Visit [facility] [address] [place] [address] Romero Jimenez MD [address] [place] [address] [place] [address] documented as of this encounter Visit Diagnoses Not on filedocumented in this encounter Care Teams National Secretary Relationship Specialty Start Date End Date Truong Colon MD [address] [place] [address] PCP - General Internal Medicine 03/06/23 documented as of this encounter
--- OUTSIDE RECORDS SUMMARY | 2024-06-06 13:37 | XMS_ITS | Encounter Summary ---
Author Organization [facility] [place], Address [address] [place] [address] Phone Care Team Providers Care Media Planner Name Role Phone Truong Colon MD Primary Care Provider +1- [phone] Encounter Details Date Type Department Care Team (Late st Contact Info) Description 05/31/2024 Telephone [facility] [address] [place] [address] Deisi Wakefield RN [address] [place] [address] Social History Tobacco Use Types [...] Encounter - Deisi Wakefield RN - 05/31/2024 12:04 PM EST Pt Retacrit injection canceled due to not having labs drawn. I left VM reminding pt to get labs drawn. Lab orders faxed to [facility]. documented in this encounter Plan of Treatment Upcoming Encounters Date Type Department Care Team (Late st Contact Info) Description 07/16/2024 3:45 PM EDT Office Visit [facility], [address] [place] [address] Romero Jimenez MD [address] [place] [address] documented as of this encounter Visit Diagnoses Not on filedocumented in this encounter Care Teams Media Planner Relationship Specialty Start Date End Date Truong Colon MD [address] [place] [address] [address] [place], [place] [id number] PCP - General Internal Medicine 03/06/23 documented as of this encounter
--- OUTSIDE RECORDS SUMMARY | 2024-06-06 13:38 | XMS_ITS | Encounter Summary ---
Author Organization [facility] Address [address] [place] [address] Phone Care Team Providers Care 2Nd Pressman Name Role Phone Truong Colon MD Primary Care Provider +1- [phone] Encounter Details Date Type Department Care Team (Late Contact Info) Description 10/26/2023 Documentation Only [facility] [address] [place] [address] Kylie Gabriel [address] [place] [address] Social History Tobacco Use Types [...] Visit [facility] [address] [place] [address] Romero Jimenez MD [address] [place] [address] [place] [address] documented as of this encounter Visit Diagnoses Not on filedocumented in this encounter Care Teams 2Nd Pressman Relationship Specialty Start Date End Date Truong Colon MD [address] [place] [address] PCP - General Internal Medicine 03/06/23 documented as of this encounter
--- OUTSIDE RECORDS SUMMARY | 2024-06-06 13:38 | XMS_ITS | Encounter Summary ---
Author Organization [facility] Address [address] [place] [address] Phone Care Team Providers Care Plate Developer Name Role Phone Truong Colon MD Primary Care Provider +1- [phone] Encounter Details Date Type Department Care Team (Late Contact Info) Description 04/04/2024 Documentation Only [facility] [address] [place] [address] [place] [address] Social History Tobacco Use Types Packs/Day [...] Visit [facility] [address] [place] [address] Romero Jimenez MD [address] [place] [address] [place] [address] documented as of this encounter Visit Diagnoses Not on filedocumented in this encounter Care Teams Plate Developer Relationship Specialty Start Date End Date Truong Colon MD [address] [place] [address] PCP - General Internal Medicine 03/06/23 documented as of this encounter
--- OUTSIDE RECORDS SUMMARY | 2024-06-06 13:38 | XMS_ITS | Encounter Summary ---
Author Organization [facility] Address [address] [place] [address] Phone Care Team Providers Care Staff Nuclear Weapons Officer Name Role Phone Truong Colon MD Primary Care Provider +1- [phone] Encounter Details Date Type Department Care Team (Late Contact Info) Description 04/29/2024 Documentation Only [facility] [address] [place] [address] Britt Sol [address] [place] [address] Social History Tobacco Use Types [...] Visit [facility] [address] [place] [address] Romero Jimenez MD [address] [place] [address] [place] [address] documented as of this encounter Visit Diagnoses Not on filedocumented in this encounter Care Teams Staff Nuclear Weapons Officer Relationship Specialty Start Date End Date Truong Colon MD [address] [place] [address] PCP - General Internal Medicine 03/06/23 documented as of this encounter
--- OUTSIDE RECORDS SUMMARY | 2024-06-06 13:38 | XMS_ITS ---
Author Organization [facility] [place], Address [address] [place] [address] [place] [address] Phone Care Team Providers Care Prompt Care Rn Name Role Phone Truong Colon MD Primary Care Provider +1- [phone] Active Problems Problem Noted Date Diagnosed Date [...] treatments are documented for this patient in [facility]. Treatments may have been administered [...]
--- OUTSIDE RECORDS SUMMARY | 2024-06-06 13:38 | XMS_ITS | Clinical Summary ---
Author Organization [facility] [place], Address [address] [place] [address] [address] [place] [address] Phone Care Team Providers Care Environmental Science Instructor Name Role Phone Truong Colon MD Primary Care Provider +1- [phone] Allergies Active Allergy Reactions Criticality Noted Date [...] Encounters Date Type Department Care Team Description 06/05/2024 Telephone [facility] [address] [place] [address] Deisi Wakefield, RN reminder for labs 06/03/2024 Documentation Only [facility] [place], [address] [place] [address] Harvey, Kylie 05/31/2024 Office Communication [facility] [address] [place] [address] Deisi Wakefield, ROGELIO 05/31/2024 Telephone [facility] [address] [place] [address] Deisi Wakefield, RN 05/27/2024 Documentation Only [facility] [address] [place] [address] Harvey, Kylie 05/16/2024 Orders Only [facility] [address] [place] [address] Harvey, Kylie Anemia in chronic kidney disease; Stage 3b chronic kidney disease (HCC); Iron deficiency anemia, not otherwise specified 05/11/2024 Refill [facility] [address] [place] [address] Eligio Meza MD 04/29/2024 Documentation Only [facility] [address] [place] [address] Britt Sol 04/24/2024 Documentation Only [facility] [address] [place] [address] Harvey, Kylie 04/21/2024 Telephone [facility] [address] [place] [address] Deisi Wakefield, RN [facility] trying to schedule Retacrit injections 04/10/2024 Documentation Only [facility] [address] [address] Harvey, Kylie 04/10/2024 Documentation Only [facility] [address] [place] [address] Harvey, Kylie 04/10/2024 Documentation Only [facility] [address] [place] [address] Kylie Gabriel 04/09/2024 Office Communication [facility] [place] [facility] [address] [place] [address] Deisi Wakefield RN 04/04/2024 Documentation Only [facility] [address] [place] [address] Jasmin Dumont 04/04/2024 Office Communication [facility] [address] [place] [address] Kyile Gabriel 04/03/2024 Office Communication [facility] [address] [place] [address] Jasmin Dumont from Last 3 Months Immunizations [...] Visit [facility] [place], [address] [place] [address] Romero Jimenez MD [address] [facility] [place] [address] Health Maintenance Due Date Last Done Comments [...] Hemoglobin 11.9 Blood 10/17/2023 5:28 PM EDT us Eligio Meza MD POINT OF CARE TEST ORDERABLES Fi nal Result from Last 3 Months or Most Recently Relevant to Health Maintenance Insurance [facility] ONE CARE DUAL SNP ([id number]) [place] [id number] Care Teams Environmental Science Instructor Relationship Specialty Start Date End Date Truong Colon MD [address] [place] [address] PCP - General Internal Medicine 03/06/23
--- OUTSIDE RECORDS SUMMARY | 2024-06-06 13:38 | XMS_ITS | Encounter Summary ---
Author Organization [facility] Address [address] [place] [address] Phone Care Team Providers Care Wood Heel Flap Inserter Name Role Phone Truong Colon MD Primary Care Provider +1- [phone] Encounter Details Date Type Department Care Team (Late st Contact Info) Description 11/09/2021 Documentation Only [facility] [address] [place] [address] Dimitris Suarez PA Social History [...] Visit [facility] [address] [place] [address] Romero Jimenez MD [address] [place] [address] [place] [address] documented as of this encounter Visit Diagnoses Not on filedocumented in this encounter Care Teams Wood Heel Flap Inserter Relationship Specialty Start Date End Date Truong Colon MD [address] [place], [place] [id number] PCP - General Internal Medicine 03/06/23 documented as of this encounter
--- OUTSIDE RECORDS SUMMARY | 2024-06-06 13:38 | XMS_ITS | Clinical Summary ---
Author Organization [facility] [place] [address] Care Team Providers Care Insecticide Sprayer Name Role Phone Truong Colon MD Primary Care Provider Allergies Active Allergy Reactions Criticality Noted Date Comments Penicillins Rash Low 03/27/2017 Medications acetaminophen (TYLENOL 8 HOUR) 650 mg 8 [...] IN THE MORNING AND EVENING UNTIL DISCONTINUED 3 Active ERGOCALCIFEROL, VITAMIN D2, ORAL Take by mouth. Active levothyroxine (SYNTHROID, LEVOTHROID) 112 mcg tablet Take 1 tablet (112 mcg total) by mouth every morning on an empty stomach. Active omeprazole (PriLOSEC) [address] capsule Take 1 capsule (20 mg total) by mouth 1 (one) time each day. Active multivit-min/iro n/folic acid/K (ADULTS MULTIVITAMIN ORAL) Take by mouth. 6 Active Active Problems Problem Noted Date Diagnosed [...] at Not on file Legal Sex Female 7:32 PM EST Gender Identity Not on file [...] Description 10/02/2024 11:00 AM EDT Office Visit [facility] Hematology Oncology [address] [place] [address] Jillian-Jennifer Gonzalez MD [address] [place] [id number] Health Maintenance Due Date Last Done Comments [...] Density Screening) 10/08/2031 10/07/2021, 05/05/2019 Pneumococcal Vaccine: 50+ Years Completed 03/18/2019, 04/07/2016, 02/13/2014, Additional history [...] patient's age to complete this topic Meningococcal B Vacine Aged Out No lo nger eligible based on patient's age to complete [...] Maintenance Results * DXA BONE DENSITY STUDY Lisette+ LYLA DURON (10/07/2021 10:23 AM EDT) Anatomical Region Laterality Modality Bone Densitometr y 05/10/2021 11:5 1 AM EST Narrative 10/07/2021 4:32 PM EDT Clinical history: other osteoporosis Scans of the lumbar spine and hips were performed on a [employer] fan beam bone densitometer. ? Bone mineral [...] spine and hips were performed on a Teamer.netfan beam bone densitometer. Bone mineral density measurements [...] Established osteoporosis < -2.5 with fractures Lorraine SCHWARTZ IMG DXA PROCEDURES Final Resu lt from Last 3 Months or Most Recently Relevant to Health Maintenance Insurance [facility] Member Subscriber Plan / Payer (Ef fective 2024-Present) Name:Jacinda Blancas Relation to Subscriber:Spouse Name:JACINDA BLANCAS Date of :1943 (Home) Address: [address] [place] [address] Payer ID:[id number] Group ID:[id number] Type:Not on file Address: [place] [address] [place] [address] Care Teams Insecticide Sprayer Relationship Specialty Start Date End Date Truong Colon MD 2 [facility] [address] [place] [address] PCP - General 05/19/22
--- OUTSIDE RECORDS SUMMARY | 2024-06-06 13:38 | XMS_ITS | Encounter Summary ---
Author Organization [facility] Address [address] [place] [address] Phone Care Team Providers Care Switchboard Operator Name Role Phone Truong Colon MD Primary Care Provider +1- [phone] Encounter Details Date Type Department Care Team (Late st Contact Info) Description 01/23/2024 Telephone [facility] [place], [address] [place] [address] Rachel Garcia [address] [place] [address] Social History Tobacco Use Types [...] to media. * Telephone Encounter - Kylie aGbriel - 01/23/2024 1:04 PM EDT Patients hemoglobin is 12.0, she is too high for a injection. * Telephone Encounter - Rachel aGrcia - 01/23/2024 11:20 AM EDT Aston Espinal pt called last week to inquire about procrit visit-- she had labs drawn yesterday a [facility] and I faxed over our order for add on. Please advise- thanks! documented in this encounter Plan of Treatment Upcoming Encounters Date Type Department Care Team (Late st Contact Info) Description 07/16/2024 3:45 PM EDT Office Visit [facility] [place], [address] [place] [address] Romero Jimenez MD [address] [facility] [place] [phone] documented as of this encounter Visit Diagnoses Not on filedocumented in this encounter Care Teams Switchboard Operator Relationship Specialty Start Date End Date Truong Colon MD [address] [place], [place] [phone] PCP - General Internal Medicine 03/06/23 documented as of this encounter
--- OUTSIDE RECORDS SUMMARY | 2024-06-06 13:38 | XMS_ITS | Encounter Summary ---
Author Organization [facility] Address [address] [place] [address] Phone Care Team Providers Care Events Associate Name Role Phone Truong Colon MD Primary Care Provider +1- [phone] Encounter Details Date Type Department Care Team (Late Contact Info) Description 04/10/2024 Documentation Only [facility] [address] [place] [address] Kylie Gabriel [address] [place] [address] Social History Tobacco Use Types [...] Visit [facility] [address] [place] [address] Romero Jimenez MD [address] [place] [address] [place] [address] documented as of this encounter Visit Diagnoses Not on filedocumented in this encounter Care Teams Events Associate Relationship Specialty Start Date End Date Truong Colon MD [address] [place] [address] PCP - General Internal Medicine 03/06/23 documented as of this encounter
--- OUTSIDE RECORDS SUMMARY | 2024-06-06 13:38 | XMS_ITS | Encounter Summary ---
Author Organization [facility] Address [address] [place] [address] Phone Care Team Providers Care Systems Auditor Name Role Phone Truong Colon MD Primary Care Provider +1- [phone] Encounter Details Date Type Department Care Team (Late Contact Info) Description 04/24/2024 Documentation Only [facility] [address] [place] [address] Kylie Gabriel [address] [place] [address] Social History Tobacco Use Types [...] Visit [facility] [address] [place] [address] Romero Jimenez MD [address] [place] [address] [place] [address] documented as of this encounter Visit Diagnoses Not on filedocumented in this encounter Care Teams Systems Auditor Relationship Specialty Start Date End Date Truong Colon MD [address] [place] [address] PCP - General Internal Medicine 03/06/23 documented as of this encounter
--- OUTSIDE RECORDS SUMMARY | 2024-06-06 13:38 | XMS_ITS | Encounter Summary ---
Author Organization [facility] Address [address] [place] [address] Phone Care Team Providers Care Manager Technology Name Role Phone Truong Cloon MD Primary Care Provider +1- [phone] Encounter Details Date Type Department Care Team (Late Contact Info) Description 04/10/2024 Documentation Only [facility] [address] [place] [address] Kylie Gabriel [address] [place] [address] Social History Tobacco Use Types [...] Visit [facility] [address] [place] [address] Romero Jimenez MD [address] [place] [address] [place] [address] documented as of this encounter Visit Diagnoses Not on filedocumented in this encounter Care Teams Manager Technology Relationship Specialty Start Date End Date Truong Colon MD [address] [place] [address] PCP - General Internal Medicine 03/06/23 documented as of this encounter
--- OUTSIDE RECORDS SUMMARY | 2024-06-06 13:38 | XMS_ITS ---
Author Organization [facility] Jaylan sampson [place] Address [address] [facility] [place] [address] Care Team Providers Care Test Examiner Name Role Phone Isaiah DURAN, Ozan Primary Care Provider Boby Laguerre Unavailable [phone] Allergies Allergen (clinical drug ingredient) Drug/Non Drug Allergy documented on EMR Reaction Allergy Type Onset Date Status sennosides, RETIREMENT Senna rash and machado Drug Allergy Active [...] Ordered Date Performed Result Body Sit e 03670-QLTCYSH NAIL, 6 OR MORE 11/08/2023 N/A 87807-Esxm Destruction, 1-14 11/08/2023 N/A 95866-Aqyurbgt Plate 11/08/2023 N/A 29680-Uwcpskey Plate Each Additional 11/08/2023 N/A 14933-QQPW SKIN LESIONS, OVER 4 11/08/2023 N/A Encounters Encounter Location Date Provider Diagnosis [facility] [address] [address] 11/08/2023 Boby Chapman Atherosclerosis of [place] [...] days Pending Test Test Name Order Date 07023-METOCKL NAIL, 6 OR MORE 11/08/2023 99369-Yarp Destruction, 1-14 11/08/2023 11626-Jrzmnqrf Plate 11/08/2023 27880-Ixubfdpx Plate Each Additional 00322-GWSP SKIN LESIONS, OVER 4 11/08/19 24 Next Appt Details Follow Up: 2 Months, Reason: Provider Name:Boby Chapman , 07/31/2024 02:00:00 PM, [address] [facility], [address], [place], [address], Procedure Notes * Category Sub-Category Detail Notes Wart Treatment Procedure Verrucae(s) were debrided to pin-point bleeding margins with sterile surgical blade, silver nitrate chemocautery applied, recomm. immune-boosting meds such as zinc, recomm. follow up with topical chemosurgical agents, Pt STILL defers any other forms of tx (24633), CONT, recomm. Wartstick 40% Salicylic acid application [...] and future surgical procedures to prevent recurrence (54058/32), CIRCULATION: Pt was advised as to the [...] as necessary. Patient chooses, no pharmaceutical tx (76291) Keratoma Treatment Parring or Cutting o f Benign Hyperkeratotic Lesion(s) 73069 ( >4 Lesions) - The Benign hyperkeratotic lesions, as described above were pared, and/or cut utilizing a sterile #15 blade, tissue nippers, and/or dremel, Q8 Progress Notes * Tommie BLANCASOB:[birth year] (78 yo F)Acc No.[id number]:11/08/2023 Progress Note Patient:?Jacinda Blancas Provider:?Boby Chapman DPM :1945???Age:78 Y???Sex:Female D ate:11/08/2023 Address:[address] [place], [place] [address] Pcp:Truogn Colon MD Subjective: * Chief Complaints: * [...] denies.?Nephropathy?denies, denies.?Musculoskeletal:?Hammertoes?admits.?Bunions?admits.?Scoliosis/kyphosis?denies.?Muscle cramps / walking?admits.?Generalized aches and pains?denies.?Weakness?admits.?Integ.:?[place]?denies, denies.?Scars?denies, denies.?Corns/calluses?admits.?Ingrown nails?admits.?Painful nails?admits.?Rashes?denies, denies.?Neurologic:?Difficulty sleeping?admits.?Bipolar?admits.?Brain disorder?denies.?Balance [...] extremities, with unspecified presence of clinical manifestation?Procedure: 09873-EDNQ SKIN LESIONS, OVER 4 3.?Tinea unguium?Procedure: 72279-VJOMXMR NAIL, 6 OR MORE 4.?Ingrown nail?Procedure: 87666-Swqdxkyp Plate ?Procedure: 43079-Tvayhthw Plate Each Additional 5.?Xerosis of skin? Start [...] as necessary. Patient chooses, no pharmaceutical tx (61760).?Keratoma Treatment:?Parring or Cutting of Benign Hyperkeratotic Lesion(s)?30952 ( >4 Lesions) - The Benign hyperkeratotic [...] and future surgical procedures to prevent recurrence (96208/32), CIRCULATION: Pt was advised as to the [...] STILL defers any other forms of tx (46718), CONT, recomm. Wartstick 40% Salicylic acid application under occlusion as directed, CIRCULATION: Any more invasive procedure to wart deferred due to circulation risk.? * Procedure Codes:?72053 DEBRI DE NAIL, 6 OR MORE, Modifiers: XS 40142 Avulsion Plate, Modifiers: XS , [id number] Wart Destruction, 1-14, Modifiers: XS 95223 Avulsion Plate Each Additional, Modifiers: XS , [id number] TRIM SKIN LESIONS, OVER 4, Modifiers: XS [...] Chapman DPM Date:?2023 Generated for Yovanny toussaint/Leah/Lois on:?06/06/2024 01:38 PM EST History and Physical Notes * [...]
--- OUTSIDE RECORDS SUMMARY | 2024-06-06 13:38 | XMS_ITS | Encounter Summary ---
Author Organization [facility], Address [address] [place] [address] Phone Care Team Providers Care Fabric Normalizer Name Role Phone Truong Colon MD Primary Care Provider +1- [phone] Encounter Details Date Type Department Care Team (Late st Contact Info) Description 01/23/2024 Documentation Only [facility], - [address] [place] [address] Jasmin Dumont [address] [place] [address] Social History Tobacco Use Types [...] Visit [facility] [place], [address] [facility] [place] [address] Romero Jimenez MD [address] [facility] [place] [address] documented as of this encounter Visit Diagnoses Not on filedocumented in this encounter Care Teams Fabric Normalizer Relationship Specialty Start Date End Date Truong Colon MD [address] [place] [address] PCP - General Internal Medicine 03/06/23 documented as of this encounter
== END 2024-06-06 14:17 | disposition home or self-care (01) ==
PROVIDERS: PCP Internal Medicine; Visit Provider Internal Medicine
DX: I10 Essential (primary) hypertension (principal); G44.86 Cervicogenic headache; R42 Dizziness and giddiness; E03.9 Hypothyroidism, unspecified; N18.32 Chronic kidney disease, stage 3b; M35.00 Sjogren syndrome, unspecified; K21.9 Gastro-esophageal reflux disease without esophagitis; R13.10 Dysphagia, unspecified; J98.59 Other diseases of mediastinum, not elsewhere classified; K59.04 Chronic idiopathic constipation; M79.7 Fibromyalgia; M47.816 Spondylosis without myelopathy or radiculopathy, lumbar region; M17.11 Unilateral primary osteoarthritis, right knee; F41.9 Anxiety disorder, unspecified; E66.9 Obesity, unspecified

== ENCOUNTER → 2024-06-06 13:26 | Outpatient (BNVA) | payer OTHER, SELFPAY | PROVIDERS: PCP Internal Medicine; Visit Provider Internal Medicine | DX: I10 Essential (primary) hypertension (principal); G44.86 Cervicogenic headache; R42 Dizziness and giddiness; E03.9 Hypothyroidism, unspecified; N18.32 Chronic kidney disease, stage 3b; M35.00 Sjogren syndrome, unspecified; K21.9 Gastro-esophageal reflux disease without esophagitis; R13.10 Dysphagia, unspecified; J98.59 Other diseases of mediastinum, not elsewhere classified; K59.04 Chronic idiopathic constipation; M79.7 Fibromyalgia; M47.816 Spondylosis without myelopathy or radiculopathy, lumbar region; M17.11 Unilateral primary osteoarthritis, right knee; F41.9 Anxiety disorder, unspecified; E66.9 Obesity, unspecified | CPT/HCPCS: 96127; 99212 ==

== ENCOUNTER 2024-06-25 15:11 | Outpatient (REF) | payer OTHER, SELFPAY ==
[2024-06-25 15:27] LABS: MANUAL DIFF FLAG NO
[2024-06-25 17:20] LABS: Basophils Percent Auto 0.2 % (0-2); Eosinophils Percent Auto 0.9 % (0-4); Hematocrit 37.7 % (37.0-47.0); Imm Gran Abs Auto 0.01 X10*3/uL (0.00-0.03); Imm Gran Pct Auto 0.2 % (0.0-0.4); Lymphocytes Absolute Auto 1.5 X10*3/uL (1.2-4.9); Lymphocytes Percent Auto 31.6 % (20-40); Mean Corpuscular HGB Conc 31.8 g/dl (31.0-35.0); Mean Corpuscular Hemoglobin 28.3 pg (27.0-33.0); Mean Corpuscular Volume 88.9 fL (80.0-98.0); Mean Platelet Volume 11.5 fL (9.4-12.3); Monocytes Absolute Auto 0.5 X10*3/uL (0.1-1.2); Monocytes Percent Auto 10.9 % (2-11); Neutrophils Absolute Auto 2.6 x10*3/uL (2.0-8.3); Neutrophils Percent Auto 56.2 % (45-73); Platelet Count 213 X10*3/uL (160-400); Red Blood Count 4.24 X10*6/uL (4.20-5.50); Red Cell Distribution Width 13.8 % (11.0-16.0); White Blood Count 4.7 X10*3/uL (4.8-10.8)
[2024-06-25 18:23] LABS: Anion Gap 11 (12-20); Blood Urea Nitrogen 21 mg/dL (9-16); Calcium 9.4 mg/dL (8.4-10.2); Carbon Dioxide 26 mmol/L (22-29); Chloride 106 mmol/L (96-108); Estimated Glomerular Filt Rate 47; Iron 81 mcg/dL (30-160); Percent Iron Saturation 35 % (15-50); Potassium 5.1 mmol/L (3.3-5.1); Sodium 138 mmol/L (135-145); Total Iron Binding Capacity 230 mcg/dL (228-428); Unsaturated Iron Binding 149 ug/dL
--- OUTSIDE RECORDS SUMMARY | 2024-06-25 18:25 | XMS_ITS | Encounter Summary ---
Author Organization [facility] Address [address] [place] [address] Phone Care Team Providers Care Watershed Program Manager Name Role Phone Truong Colon MD Primary Care Provider +1- [phone] Encounter Details Date Type Department Care Team (Late st Contact Info) Description 05/16/2024 Orders Only [facility] [address] [place] [address] Kylie Gabriel [address] [place] [address] Anemia in chronic kidney disease; [...] Visit [facility] [address] [place] [address] Romero Jimenez MD [address] [place] [address] [place] [address] documented as of this encounter Visit Diagnoses Diagnosis Anemia in chronic kidney disease Stage 3b chronic kidney disease (HCC) Iron deficiency anemia, not otherwise specified documented in this encounter Care Teams Watershed Program Manager Relationship Specialty Start Date End Date Truong Colon MD [address] [address] [place] [address] PCP - General Internal Medicine 03/06/23 documented as of this encounter
--- OUTSIDE RECORDS SUMMARY | 2024-06-25 18:25 | XMS_ITS | Clinical Summary ---
Author Organization [facility] Address [address] [place] [address] Care Team Providers Care Manager Training And Development Name Role Phone Truong Colon MD Primary Care Provider +1- [phone] Allergies Active Allergy Reactions Criticality Noted Date [...] age to complete this topic Care Teams Manager Training And Development Relationship Specialty Start Date End Date Truong Colon MD [address] [facility] [address] Parekh [facility] [place] [id number] PCP - General Internal Medicine 05/19/22
--- OUTSIDE RECORDS SUMMARY | 2024-06-25 18:25 | XMS_ITS | Encounter Summary ---
Author Organization [facility] Address [address] [place] [address] Phone Care Team Providers Care Tubing Mill Setter Name Role Phone Truong Colon MD Primary Care Provider +1- [phone] Encounter Details Date Type Department Care Team (Late Contact Info) Description 05/27/2024 Documentation Only [facility] [address] [place] [address] Kylie Gabriel [address] [place] [address] Social History Tobacco Use Types [...] Visit [facility] [address] [place] [address] Romero Jmienez MD [address] [place] [address] [place] [address] documented as of this encounter Visit Diagnoses Not on filedocumented in this encounter Care Teams Tubing Mill Setter Relationship Specialty Start Date End Date Truong Colon MD [address] [place] [address] PCP - General Internal Medicine 03/06/23 documented as of this encounter
--- OUTSIDE RECORDS SUMMARY | 2024-06-25 18:25 | XMS_ITS ---
Author Organization [facility] Address [address] [place] [address] Care Team Providers Care Brand Specialist Name Role Phone Isaiah DURAN, [place] Primary Care Provider Boby Laguerre Unavailable [phone] Allergies Allergen (clinical drug ingredient) Drug/Non Drug [...] Ordered Date Performed Result Body Sit e 13540-GTKKNFL NAIL, 6 OR MORE 01/24/2024 N/A 74155-Sskb Destruction, 1-14 01/24/2024 N/A 40674-KNEZ SKIN LESIONS, OVER 4 01/24/2024 N/A Encounters Encounter Location Date Provider Diagnosis [facility] [address] [address] 01/24/2024 Boby Chapman Atherosclerosis of pamunkey artery of both lower extremities, with unspecified presence of clinical manifestation I70.203 ; Plantar wart B07.0 ; Tinea unguium B35.1 ; Pain in right toe(s) M79.674 ; Pain in left toe(s) M79.675 ; Left foot pain M79.672 and Xerosis of skin L85.3 Assessments Encounter Date Diagnosis (ICD Code) Assessment Notes Treatment Notes Treatment Clinical Notes Section Notes 01/24/2024 Atherosclerosis of pamunkey artery of both lower extremities, with unspecified [...] 01/24/2024 Pending Test Test Name Order Date 30206-RGRNGTY NAIL, 6 OR MORE 01/24/2024 98429-Zasn Destruction, 1-14 01/24/2024 71474-NCFB SKIN LESIONS, OVER 4 01/24/20 24 Next Appt Details Follow Up: 2 Months, Reason: Provider Name:Boby Chapman , 07/31/2024 02:00:00 PM, [address] [facility], [address], [place], [address], Procedure Notes * Category Sub-Category Detail Notes Wart Treatment Procedure Verrucae were de brided to pin-point bleeding margins with sterile 15 surgical blade, silver nitrate chemocautery applied, recomm. immune-boosting meds such as zinc, recomm. follow up with topical chemosurgical agents, Pt defers any other forms of tx - 24831 Debride Nail 6-10 Nail debridement Performance o f this nail treatment by a nonprofessional would put this patients foot and overall health at risk. Therefore, nail debridement was performed extensively to reduce/remove overall nail length, girth, thickness, subungual debris, and necrotic tissue, by manual and/or electrical means through the use of a nail nipper and/or dremel-type shot grinder operator, to a more viable healthy nail plate or bed tissue 6-10. Silver nitrate used for any petechial bleeding as necessary. Definitive antifungal treatment options have been reviewed and discussed with the patient. The patient chooses, no pharmaceutical tx - [address]5311 Keratoma Treatment Parring or Cutting o f Benign Hyperkeratotic Lesion(s) (-57) More than 4 Lesions - The Benign hyperkeratotic lesions, as described above were pared, and/or cut utilizing a sterile 15 blade, tissue nippers, and/or dremel - 72109 , Q8 Progress Notes * Tommie BLANCASOB:[birth year] (78 yo F)Acc No.[id number]:01/24/2024 Progress Note Patient:?Jacinda BLANCAS Provider:?Boby Chapman DPM :1945???Age:78 Y???Sex:Female D ate:01/24/2024 Address:[address] [place] [address] Pcp:Truong Colon MD Subjective: * Chief Complaints: [...] wart - B07.0 (Malka ngozi)???Specify :LEFT???2.?Atherosclerosis of pamunkey artery of both lower extremities, with unspecified presence of clinical manifestation - I70.203???3.?Tinea unguium - B35.1???4.?Pain in right toe(s) - M79.674???5.?Pain in left toe(s) - M79.675???6.?Left foot pain - M79.672???7.?Xerosis of skin - L85.3???Specify :Acute problem, Stable (1=3),Response to treatment - Improvement??? Plan: * Treatment: 2.?Atherosclerosis of pamunkey artery of both lower extremities, with unspecified presence of clinical manifestation?Procedure: 01450-ELPA SKIN LESIONS, OVER 4 3.?Tinea unguium?Procedure: 49350-BCJTSQR NAIL, 6 OR MORE 4.?Xerosis of skin? [...] use of a nail nipper and/or dremel-type shot grinder operator, to a more viable healthy nail plate or bed tissue 6-10. Silver nitrate used for any petechial bleeding as necessary. Definitive antifungal treatment options have been reviewed and discussed with the patient. The patient chooses, no pharmaceutical tx - 15108.?Keratoma Treatment:?Parring or Cutting of Benign Hyperkeratotic Lesion(s)?(-57) More than 4 Lesions - The Benign hyperkeratotic lesions, as described above were pared, and/or cut utilizing a sterile 15 blade, tissue nippers, and/or dremel - 48646 , Q8.?Wart Treatment:?Procedure?Verrucae were debrided to pin-point bleeding margins with sterile 15 surgical blade, silver nitrate chemocautery applied, recomm. immune-boosting meds such as zinc, recomm. follow up with topical chemosurgical agents, Pt defers any other forms of tx - 90276.? * Procedure Codes:?11195 DEBRI DE NAIL, 6 OR MORE, Modifiers: XS 43494 Wart Destruction, 1-14, Modifiers: XS 76760 TRIM SKIN LESIONS, OVER 4, Modifiers: XS [...] Chapman DPM Date:?2023 Generated for Yovanny toussaint/Leah/Lois on:?06/25/2024 06:25 PM EST History and Physical Notes * [...]
--- OUTSIDE RECORDS SUMMARY | 2024-06-25 18:25 | XMS_ITS ---
Author Organization [facility] Address [address] [place] [address] Care Team Providers Care Cook Cold Meat Name Role Phone Truong Colon MD Primary Care Provider +1- [phone] Active Problems Problem Noted Date Diagnosed Date Iron deficiency anemia 05/18/2022 Malignant neoplasm of upper- outer quadrant of left breast in female, estrogen receptor positive 03/28/2017 Gastroesophageal reflux disease without esophagi tis 03/28/2017 Acquired hypothyroidism 03/28/2017 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 Current Oncology Plans No current plan information found. Past Plans Radiation Treatments * No radiation treatments are documented for this patient in [facility]. Treatments may have been administered in another system.
--- OUTSIDE RECORDS SUMMARY | 2024-06-25 18:26 | XMS_ITS | Encounter Summary ---
Author Organization [facility] Address [address] [place] [address] Phone Care Team Providers Care Analysis Specialist Name Role Phone Truong Colon MD Primary Care Provider +1- [phone] Encounter Details Date Type Department Care Team (Late Contact Info) Description 10/26/2023 Documentation Only [facility] [address] [place] [address] Kylie Gabriel [address] [place] [address] Social History Tobacco Use Types [...] Visit [facility] [address] [place] [address] Romero Jimenez MD [address] [place] [address] [place] [address] documented as of this encounter Visit Diagnoses Not on filedocumented in this encounter Care Teams Analysis Specialist Relationship Specialty Start Date End Date Truong Colon MD [address] [place] [address] PCP - General Internal Medicine 03/06/23 documented as of this encounter
--- OUTSIDE RECORDS SUMMARY | 2024-06-25 18:26 | XMS_ITS | Encounter Summary ---
Author Organization [facility] Address [address] [place] [address] Phone Care Team Providers Care Polymerization Supervisor Name Role Phone Truong Colon MD Primary Care Provider +1- [phone] Encounter Details Date Type Department Care Team (Late st Contact Info) Description 04/14/2022 Documentation Only [facility] [address] [place] [address] Eligio Meza MD [address] [place] [address] [place] [address] Social History Tobacco Use Types [...] Visit [facility] [address] [place] [address] Romero Jimenez MD [address] [facility] [place] [place] [address] documented as of this encounter Visit Diagnoses Not on filedocumented in this encounter Care Teams Polymerization Supervisor Relationship Specialty Start Date End Date Truong Colon MD [address] [place] [address] PCP - General Internal Medicine 03/06/23 documented as of this encounter
--- OUTSIDE RECORDS SUMMARY | 2024-06-25 18:26 | XMS_ITS | Encounter Summary ---
Author Organization [facility] Address [address] [place] [address] Phone Care Team Providers Care Fitness Assistant Name Role Phone Truong Colon MD Primary Care Provider +1- [phone] Encounter Details Date Type Department Care Team (Late Contact Info) Description 06/03/2024 Documentation Only [facility] [address] [place] [address] Kylie Gabriel [address] [place] [address] Social History Tobacco Use Types [...] Visit [facility] [address] [place] [address] Romero Jimenez MD [address] [place] [address] [place] [address] documented as of this encounter Visit Diagnoses Not on filedocumented in this encounter Care Teams Fitness Assistant Relationship Specialty Start Date End Date Truong Colon MD [address] [place] [address] PCP - General Internal Medicine 03/06/23 documented as of this encounter
--- OUTSIDE RECORDS SUMMARY | 2024-06-25 18:26 | XMS_ITS | Encounter Summary ---
Author Organization [facility] Address [address] [place] [address] Phone Care Team Providers Care Exhauster Engineer Name Role Phone Truong Colon MD Primary Care Provider +1- [phone] Encounter Details Date Type Department Care Team (Late Contact Info) Description 10/29/2023 Documentation Only [facility] [address] [place] [address] Kylie Gabriel [address] [place] [address] Social History Tobacco Use Types [...] Visit [facility] [address] [place] [address] Romero Jimenez MD [address] [place] [address] [place] [address] documented as of this encounter Visit Diagnoses Not on filedocumented in this encounter Care Teams Exhauster Engineer Relationship Specialty Start Date End Date Truong Colon MD [address] [place] [address] PCP - General Internal Medicine 03/06/23 documented as of this encounter
--- OUTSIDE RECORDS SUMMARY | 2024-06-25 18:26 | XMS_ITS | Encounter Summary ---
Author Organization [facility] Address [address] [place] [address] Phone Care Team Providers Care Shell Assembler Name Role Phone Truong Colon MD Primary Care Provider +1- [phone] Encounter Details Date Type Department Care Team (Late st Contact Info) Description 01/14/2024 Documentation Only [facility] [address] [place] [address] [place] [address] [place] [address] Social History Tobacco Use Types [...] [facility] [address] [place] [address] Romero Jimenez MD [address] [place] [address] [place] [address] documented as of this encounter Visit Diagnoses Not on filedocumented in this encounter Care Teams Shell Assembler Relationship Specialty Start Date End Date Truong Colon MD [address] [place] [address] PCP - General Internal Medicine 03/06/23 documented as of this encounter
--- OUTSIDE RECORDS SUMMARY | 2024-06-25 18:26 | XMS_ITS | Encounter Summary ---
Author Organization [facility] Address [address] [place] [address] Phone Care Team Providers Care Mathematical Technician Name Role Phone Truong Colon MD Primary Care Provider +1- [phone] Encounter Details Date Type Department Care Team (Late Contact Info) Description 04/10/2024 Documentation Only [facility] [address] [place] [address] Kylie Gabriel [address] [place] [address] Social History Tobacco Use [...] Visit [facility] [address] [place] [address] Romero Jimenez MD [address] [place] [address] [place] [address] documented as of this encounter Visit Diagnoses Not on filedocumented in this encounter Care Teams Mathematical Technician Relationship Specialty Start Date End Date Truong Colon MD [address] [place] [address] PCP - General Internal Medicine 03/06/23 documented as of this encounter
--- OUTSIDE RECORDS SUMMARY | 2024-06-25 18:26 | XMS_ITS ---
Author Organization [facility] Address [address] [facility] [place] [address] Care Team Providers Care Manager Balance Name Role Phone Isaiah DURAN, Truong Primary Care Provider Boby Laguerre Unavailable [phone] Allergies Allergen (clinical drug ingredient) Drug/Non Drug [...] Ordered Date Performed Result Body Sit e 50760-MIFZAHQ NAIL, 6 OR MORE 05/05/2024 N/A 55149-SHAT SKIN LESIONS, OVER 4 05/05/2024 N/A Encounters Encounter Location Date Provider Diagnosis [facility] [address] [address] 05/05/2024 Boby Chapman Atherosclerosis of klamath artery of both lower extremities, with unspecified presence of clinical manifestation I70.203 ; Tinea unguium B35.1 ; Pain in right toe(s) M79.674 ; Pain in left toe(s) M79.675 ; Other hammer toe(s) (acquired), right foot M20.41 and Other hammer toe(s) (acquired), left foot M20.42 Assessments Encounter Date Diagnosis (ICD Code) Assessment Notes Treatment Notes Treatment Clinical Notes Section Notes 05/05/2024 Atherosclerosis of klamath artery of both lower extremities, with unspecified [...] days Pending Test Test Name Order Date 80013-WCEFYJP NAIL, 6 OR MORE 05/05/2024 76812-YGQO SKIN LESIONS, OVER 4 05/05/19 25 Next Appt Details Follow Up: 2 Months, Reason: Provider Name:Boby Chapman , 07/31/2024 02:00:00 PM, [address] [facility], [address], [place], [address], Procedure Notes * Category Sub-Category Detail Notes [...] use of a nail nipper and/or dremel-type mud grinder, to a more viable healthy nail [...] to maintain effectiveness in symptomatic relief - 71359 Keratoma Treatment Parring or Cutting o f [...] instrumentation by the physician of record - 13495, Q8 Progress Notes * Tommie BLANCASOB:[birth year] (78 yo F)Acc No.[id number]:05/05/2024 Progress Note Patient:?Jacinda BLANCAS Provider:?Boby Chapman DPM :1945???Age:78 Y???Sex:Female D ate:05/05/2024 Address:[address] [place], [place] [address] Pcp:Truong Colon MD Subjective: * Chief Complaints: [...] by , , who serves as , Contract Programmer/Jewelry Making Instructor , additional Historian , and/who is physically present in exam room at time of visit.?ORIENTED:?person, place, and time.?FOOT EXAM:?Lower Extremity Neurological Exam performed:?Yes ?Visual exam of foot performed:?Yes ?Date?05/05/2024 ?Footwear Evaluation?Footwear Evaluation performed:?Yes??? Assessment: * Assessment: 1.?Tinea unguium - B35.1???2 .?Atherosclerosis of klamath artery of both lower extremities, with unspecified presence of clinical manifestation - I70.203 (Primary)???3.?Pain in right toe(s) - M79.674???4.?Pain in left toe(s) - M79.675 ??5.?Other hammer toe(s) (acquired), right foot - M20.41???Specify :Chronic problem, Worse (4),Rx Management (4)???6.?Other hammer toe(s) (acquired), left foot - M20.42???Specify :Chronic problem, Worse (4),Rx Management (4)??? Plan: * Treatment: 2.?Tinea unguium?Procedure: 83602-CNTTFUK NAIL, 6 OR MORE 3.?Other hammer toe(s) [...] use of a nail nipper and/or dremel-type mud grinder, to a more viable healthy nail [...] to maintain effectiveness in symptomatic relief - 74215.?Keratoma Treatment:?Parring or Cutting of Benign Hyperkeratotic Lesion(s)?(-57) [...] instrumentation by the physician of record - 75000, Q8.? * Procedure Codes:?05525 DEBRI DE NAIL, 6 OR MORE, Modifiers: XS 40086 TRIM SKIN LESIONS, OVER 4, Modifiers: XS [...] Chapman DPM Date:?2024 Generated for Yovanny toussaint/Leah/Lois on:?06/25/2024 06:26 PM EST History and Physical Notes * [...] by , , who serves as , Contract Programmer/Jewelry Making Instructor , additional Historian , and/who is physically [...]
--- OUTSIDE RECORDS SUMMARY | 2024-06-25 18:26 | XMS_ITS | Patient Health Record ---
Author Organization [facility] [place] Address [address] [facility] [place] [address] Care Team Providers Care Set Off Press Operator Name Role Phone Isaiah DURAN, Lyndon Primary Care Provider Boby Laguerre Unavailable [phone] Allergies Allergen (clinical drug ingredient) Drug/Non Drug Allergy documented on EMR Reaction Allergy Type Onset Date Status sennosides, RESIDENTIAL Senna rash and machado Drug Allergy Active [...] Problem Acquired hammer toe of right foot (1850192649297243 ) Other hammer toe(s) (acquired), right foot (M20.41) Active confirmed Response to treatment, Improvemen t Problem Acquired hammer toe of left foot (9510032510938578 ) Other hammer toe(s) (acquired), left foot (M20.42) Active confirmed Response to treatment, Improvemen t Problem [id number] Atherosclerosis of cherokee artery of both lower extremities, with unspecified presence of clinical manifestation (I70.203) Active confirmed Vital Signs Blood pressure diastolic 77 mm Hg 05/05/2024 Height 5 ft 9in in 05/05/2024 Blood pressure systolic 126 mm Hg 05/05/2024 Weight 233 lbs 05/05/2024 BMI 34.4 kg/m2 05/05/2024 Procedures Procedure Date Ordered Date Performed Result Body Sit e 25175-WMCTHGB NAIL, 6 OR MORE 06/27/2023 N/A 62473-Chvv Destruction, 1-14 06/27/2023 N/A 76934-Serjsvtt Plate 06/27/2023 N/A 92227-Kieboxtf Plate Each Additional 06/27/2023 N/A 17449-NBWR SKIN LESIONS, OVER 4 06/27/2023 N/A 34588-EOPKOCB NAIL, 6 OR MORE 08/30/2023 N/A 19744-Kfln Destruction, 1-14 08/30/2023 N/A 02979-Sifqnpjy Plate 08/30/2023 N/A 26097-Scwvfdgx Plate Each Additional 08/30/2023 N/A 98676-BMUN SKIN LESIONS, OVER 4 08/30/2023 N/A 98708-EFBKKAP NAIL, 6 OR MORE 11/08/2023 N/A 84439-Tkue Destruction, 1-14 11/08/2023 N/A 81395-Vfjnzlpu Plate 11/08/2023 N/A 94788-Fsarobcd Plate Each Additional 11/08/2023 N/A 03822-WZHW SKIN LESIONS, OVER 4 11/08/2023 N/A 81271-RFTEUXW NAIL, 6 OR MORE 01/24/2024 N/A 40253-Nhgb Destruction, 1-14 01/24/2024 N/A 63875-DOCE SKIN LESIONS, OVER 4 01/24/2024 N/A 02455-HHMKIMQ NAIL, 6 OR MORE 05/05/2024 N/A 28506-YUKO SKIN LESIONS, OVER 4 05/05/2024 N/A Encounters Encounter Location Date Provider Diagnosis [address] [address] 06/27/2023 Boby Chapman Atherosclerosis of cherokee artery of both lower extremities, with unspecified presence of clinical manifestation I70.203 ; Plantar wart B07.0 ; Tinea unguium B35.1 ; Pain in right toe(s) M79.674 ; Pain in left toe(s) M79.675 ; Ingrown nail L60.0 ; Left foot pain M79.672 ; Other hammer toe(s) (acquired), right foot M20.41 and Other hammer toe(s) (acquired), left foot M20.[address] [address] 08/30/2023 Boby Chapman Atherosclerosis of cherokee artery of both lower extremities, with unspecified presence of clinical manifestation I70.203 ; Plantar wart B07.0 ; Tinea unguium B35.1 ; Pain in right toe(s) M79.674 ; Pain in left toe(s) M79.675 ; Ingrown nail L60.0 and Left foot pain M79.[address] [address] 11/08/2023 Boby Chapman Atherosclerosis of cherokee artery of both lower extremities, with unspecified presence of clinical manifestation I70.203 ; Plantar wart B07.0 ; Tinea unguium B35.1 ; Pain in right toe(s) M79.674 ; Pain in left toe(s) M79.675 ; Ingrown nail L60.0 ; Left foot pain M79.672 and Xerosis of skin L85.[address] [address] 01/24/2024 Boby Chapman Atherosclerosis of cherokee artery of both lower extremities, with unspecified presence of clinical manifestation I70.203 ; Plantar wart B07.0 ; Tinea unguium B35.1 ; Pain in right toe(s) M79.674 ; Pain in left toe(s) M79.675 ; Left foot pain M79.672 and Xerosis of skin L85.[address] [address] 05/05/2024 Boby Chapman Atherosclerosis of cherokee artery of both lower extremities, with unspecified [...] wart (ICD-10 - B07.0) 06/27/2023 Atherosclerosis of cherokee artery of both lower extremities, with unspecified presence of clinical manifestation (ICD-10 - I70.203) 08/30/2023 Plantar wart (ICD-10 - B07.0) 08/30/2023 Atherosclerosis of cherokee artery of both lower extremities, with unspecified presence of clinical manifestation (ICD-10 - I70.203) 11/08/2023 Plantar wart (ICD-10 - B07.0) 11/08/2023 Atherosclerosis of cherokee artery of both lower extremities, with unspecified presence of clinical manifestation (ICD-10 - I70.203) 01/24/2024 Plantar wart (ICD-10 - B07.0) 01/24/2024 Atherosclerosis of cherokee artery of both lower extremities, with unspecified presence of clinical manifestation (ICD-10 - I70.203) 05/05/2024 Tinea unguium (ICD-10 - B35.1) 05/05/2024 Atherosclerosis of cherokee artery of both lower extremities, with unspecified [...] Treatment Pending Test Test Name Order Date 49548-KDUVYWV NAIL, 6 OR MORE 03/21/2017 06122-VNVMRES NAIL, 6 OR MORE 05/30/2017 76079-FYZWNYJ NAIL, 6 OR MORE 08/06/2017 86926-DCPZNDI NAIL, 6 OR MORE 10/25/2017 36664-YHDPXIH NAIL, 6 OR MORE 03/20/2018 27070-IPDOLVQ NAIL, 6 OR MORE 06/13/2018 83175-HWPEKIW NAIL, 6 OR MORE 01/07/2018 87279-KDFRFVU NAIL, 6 OR MORE 08/14/2018 82098-NWKCJSV NAIL, 6 OR MORE 10/17/2018 74572-PICOKAF NAIL, 6 OR MORE 01/16/2019 55658-XMVHCKL NAIL, 6 OR MORE 04/03/2019 98090-YCVEXKX NAIL, 6 OR MORE 06/16/2019 32834-WHFFDWA NAIL, 6 OR MORE 08/27/2019 00475-NJYHFNM NAIL, 6 OR MORE 12/18/2019 15244-VCZYTFL NAIL, 6 OR MORE 05/06/2020 97194-QBRLDQY NAIL, 6 OR MORE 07/15/2020 88839-FYBTYAO NAIL, 6 OR MORE 09/29/2020 13587-MDMAMRT NAIL, 6 OR MORE 12/02/2020 19741-PBIPFPY NAIL, 6 OR MORE 02/17/2021 40604-EQBEMSQ NAIL, 6 OR MORE 06/16/2021 85644-MBODZEH NAIL, 6 OR MORE 08/29/2021 47437-MFETTQX NAIL, 6 OR MORE 11/10/2021 68150-VFPIPPV NAIL, 6 OR MORE 01/19/2022 89244-ENRRTQE NAIL, 6 OR MORE 04/05/2022 05515-LCOLVYV NAIL, 6 OR MORE 06/15/2022 44869-SIXOPMX NAIL, 6 OR MORE 08/24/2022 12392-WPPUBHV NAIL, 6 OR MORE 11/16/2022 01316-TNHQRJB NAIL, 6 OR MORE 01/25/2023 14714-PEFXLNM NAIL, 6 OR MORE 04/11/2023 78379-FRCQJJP NAIL, 6 OR MORE 06/27/2023 50952-ZYUCVCM NAIL, 6 OR MORE 08/30/2023 05714-OXOMWGP NAIL, 6 OR MORE 11/08/2023 17551-YGAOALP NAIL, 6 OR MORE 01/24/2024 84981-CFSEURJ NAIL, 6 OR MORE 05/05/2024 78440-GLKHIDK NAIL, 1-5 11/01/2016 40954-RNBHPMB NAIL, -5 01/03/2017 86156-MQKZLCE NAIL, -5 11/15/2015 41221-XARJMRC NAIL, -5 01/24/2016 80601-VEECYPJ NAIL, -5 04/05/2016 11357-NLEAKIE NAIL, -5 06/14/2016 51725-GFWZICF NAIL, -08/23/2016 01153-Aoqt Destruction, -14 11/01/2016 22931-Xyyb Destruction, -14 01/03/2017 76241-Rcyz Destruction, -03/21/2017 21029-Zcor Destruction, -05/30/2017 48790-Mkix Destruction, 05-0608/06/2017 24581-Wxay Destruction, 05-0605/06/2020 68599-Zadw Destruction, 05-0612/18/2019 01106-Audt Destruction, 05-0608/27/2019 47237-Xccm Destruction, 05-0606/16/2019 81232-Urjd Destruction, 05-0604/03/2019 26813-Vhtv Destruction, 05-0601/16/2019 24455-Dfnw Destruction, 05-0610/17/2018 23620-Pdrc Destruction, 05-0608/14/2018 40509-Adkp Destruction, 05-0606/13/2018 67904-Grgk Destruction, 05-0610/25/2017 17709-Ugmd Destruction, 05-0601/07/2018 59734-Kcfd Destruction, 05-0608/30/2023 29767-Axpd Destruction, 05-0606/27/2023 78449-Xqua Destruction, 05-0604/11/2023 65770-Wkdt Destruction, 05-0601/25/2023 49513-Eemo Destruction, 05-0611/16/2022 85332-Lfvp Destruction, 05-0608/24/2022 76385-Pkra Destruction, 05-0606/15/2022 19953-Zkgy Destruction, 05-0604/05/2022 76522-Lrto Destruction, 05-0601/19/2022 85473-Wpjt Destruction, 05-0606/16/2021 26541-Fhxf Destruction, 05-0603/20/2018 73979-Gzau Destruction, 05-0611/10/2021 73001-Wrtl Destruction, 05-0608/29/2021 76921-Ddjw Destruction, 05-0602/17/2021 13337-Fxwv Destruction, 05-0612/02/2020 91598-Iwbh Destruction, 05-0609/29/2020 55635-Cana Destruction, 05-0607/15/2020 36593-Akqr Destruction, 05-0601/24/2024 03033-Qppl Destruction, 05-0611/08/2023 90200-Phprpykp Plate 11/08/2023 48183-Aswgugbc Plate 09/29/2020 91053-Hhkpdjpb Plate 12/02/2020 20922-Kgbgczdd Plate 02/17/2021 97127-Llssbkas Plate 06/16/2021 85126-Ardtpvdu Plate 08/29/2021 71775-Jcpmvdog Plate 11/10/2021 98611-Ibwiutob Plate 01/19/2022 16872-Nnnqejwi Plate 04/05/2022 20463-Elpwprzv Plate 06/15/2022 13975-Rxvodyba Plate 08/24/2022 48980-Ajejsevo Plate 11/16/2022 90641-Nrckwwss Plate 01/25/2023 66896-Wraobrpv Plate 04/11/2023 17150-Hxajgjtz Plate 06/27/2023 76090-Gmfsbqpg Plate 08/30/2023 45550-Fjdunckc Plate 12/18/2019 33040-Wypmkjgo Plate 05/06/2020 11215-Qcthlamu Plate 07/15/2020 65633-Cjwjqbct Plate 11/01/2016 56052-Euzwbpvl Plate Each Additional 12/2023 94807-Ebrdewwx Plate Each Additional 09/2023 89138-Knkfkhyq Plate Each Additional 29745-Yhhjarxp Plate Each Additional 08/2022 74755-Aatarvot Plate Each Additional 80006-Iosloace Plate Each Additional 07/2022 45045-Ntvcddju Plate Each Additional 20090-Iqfpxvci Plate Each Additional 75334-Zdckdyqx Plate Each Additional 99343-Amtekaid Plate Each Additional 67784-RZBJ SKIN LESIONS, OVER 4 11/08/19 76399-KVWA SKIN LESIONS, OVER 4 01/24/20 98201-ZLGY SKIN LESIONS, OVER 4 05/05/19 51899-OMIU SKIN LESIONS, OVER 4 06/16/19 87413-SMUM SKIN LESIONS, OVER 4 01/20/20 00617-ZMTU SKIN LESIONS, OVER 4 11/11/19 64909-GAHM SKIN LESIONS, OVER 4 08/30/19 90674-RQGT SKIN LESIONS, OVER 4 02/18/20 78500-WBOX SKIN LESIONS, OVER 4 12/03/19 37394-UPCH SKIN LESIONS, OVER 4 09/30/19 21 22910-CGFH SKIN LESIONS, OVER 4 07/16/19 21 09439-AJDE SKIN LESIONS, OVER 4 04/05/20 22 97477-SCKY SKIN LESIONS, OVER 4 06/15/19 23 02079-PYEU SKIN LESIONS, OVER 4 08/25/19 81309-YKBH SKIN LESIONS, OVER 4 11/17/19 23 41432-GRBN SKIN LESIONS, OVER 4 01/26/20 30384-CXPW SKIN LESIONS, OVER 4 04/11/20 23 91577-WIIR SKIN LESIONS, OVER 4 06/27/19 24 90394-TZJE SKIN LESIONS, OVER 4 08/30/19 24 30963-WSET SKIN LESIONS, OVER 4 03/21/20 17 88698-ZKHJ SKIN LESIONS, OVER 4 01/04/20 17 40398-VHYU SKIN LESIONS, OVER 4 10/26/19 18 74164-JGWI SKIN LESIONS, OVER 4 08/07/19 18 88903-NDQN SKIN LESIONS, OVER 4 05/30/19 18 93431-YNVP SKIN LESIONS, OVER 4 11/02/19 17 00705-JEJF SKIN LESIONS, OVER 4 06/14/19 17 61814-LBXT SKIN LESIONS, OVER 4 04/05/20 16 85635-YAFP SKIN LESIONS, OVER 4 08/24/19 17 60325-CBBP SKIN LESIONS, OVER 4 01/24/20 16 09721-WVRX SKIN LESIONS, OVER 4 11/15/19 16 41495-EXGL SKIN LESIONS, OVER 4 08/16/19 16 65018-QBYD SKIN LESIONS, OVER 4 05/06/19 21 98852-ZEJV SKIN LESIONS, OVER 4 12/18/19 20 98722-JSOX SKIN LESIONS, OVER 4 08/27/19 20 41917-OCPG SKIN LESIONS, OVER 4 04/03/20 19 78202-ASCU SKIN LESIONS, OVER 4 06/16/19 20 02643-XPWV SKIN LESIONS, OVER 4 01/08/20 18 81865-RCIN SKIN LESIONS, OVER 4 06/13/19 19 74387-SPWL SKIN LESIONS, OVER 4 08/15/19 19 94197-WFBE SKIN LESIONS, OVER 4 03/20/20 18 21194-HSZY SKIN LESIONS, OVER 4 10/18/19 19 14835-SCVT SKIN LESIONS, OVER 4 01/17/20 19 P1210-ZQRQWSAO DYSTROPHIC NAILS ANY # I6209-FTRYUUAU DYSTROPHIC NAILS ANY # F0915-XKYNHWPQ DYSTROPHIC NAILS ANY # T7075-QMZOPXHD DYSTROPHIC NAILS ANY # P1286-OOBANLXD DYSTROPHIC NAILS ANY # K1433-CUUEDBHC DYSTROPHIC NAILS ANY # A8606-RXIKNOWP DYSTROPHIC NAILS ANY # Y7836-FHAWIVYN DYSTROPHIC NAILS ANY # Next Appt Details Provider Name:Boby Gwendolyn Chapman , 07/31/2024 02:00:00 PM, [address] [facility], [address], [place], [address], Insurance Providers Payer Name Payer Address Payer Phone Subscriber Number Group Number Insured Name Patient Relationship to Insured Coverage Start Date Coverage End Date [facility] [employer] Claims [address] [place] [phone] [id number] Jacinda Benavidez Self - patient is the insured Medical (General) History Medical History History ICD Code Anemia Anxiety Arthritis Back,Hip,and Knee pain Cataracts High blood pressure Liver disease Reflux Thyroid disorder Surgical History Surgery Date(Month/Year) gall bladder 12/11/2014 Unspecified Right Hand SX 03/13/17
--- OUTSIDE RECORDS SUMMARY | 2024-06-25 18:26 | XMS_ITS | Encounter Summary ---
Author Organization [facility] Address [address] [place] [address] Phone Care Team Providers Care Irrigation Tax Assessor Collector Name Role Phone Truong Colon MD Primary Care Provider +1- [phone] Encounter Details Date Type Department Care Team (Late st Contact Info) Description 05/12/2021 Documentation Only [facility] [address] [place] [address] Eligio Meza MD [address] [place] [address] [place] [address] Social History Tobacco Use Types [...] [facility] [address] [place] [address] Romero Jimenez MD [address] [facility] [place] [address] documented as of this encounter Visit Diagnoses Not on filedocumented in this encounter Care Teams Irrigation Tax Assessor Collector Relationship Specialty Start Date End Date Truong Colon MD [address] [place] [address] PCP - General Internal Medicine 03/06/23 documented as of this encounter
--- OUTSIDE RECORDS SUMMARY | 2024-06-25 18:26 | XMS_ITS | Encounter Summary ---
Author Organization [facility] [place] [address] Care Team Providers Care Oil Lease Operator Name Role Phone Truong Colon MD Primary Care Provider +1- [phone] Reason for Referral * Imaging (Routine) - Authorized Specialty Diagnoses / Procedures Referred By Contac t Referred To Contact Radiology Diagnoses Encounter for screening mammogram for malignant neoplasm of breast Procedures MG Mammo Digital Screening bilat Jennifer Ca MD [address] [place] [phone] Phone: tel: fax: [address] [address] Phone: tel: Referral ID Status Reason Start Date Expiration Date V isits Requested Visits Authorized [id number] Authorized 06/09/2024 06/09/2025 1 1 Encounter Details Date Type Department Care Team (Late st Contact Info) Description 06/09/2024 Telephone [facility] Hematology Oncology [address] [place] [address] Jennifer Ca MD [address] [place] [phone] Social History Tobacco Use Types Packs/Day Years [...] on file documented as of this encounter Progress Notes * Jennifer Ca MD - 06/09/2024 3:08 PM EST I ordered it please let her know * Albania Norris - 06/09/2024 1:56 PM EST Patient is requesting order for mammogram documented in this encounter Plan of Treatment Upcoming Encounters Date Type Department Care Team (Late st Contact Info) Description 07/17/2024 11:00 AM EDT [facility]oint[facility] [address] [phone] 10/02/2024 11:00 AM EDT Office Visit [facility] Hematology Oncology [address] [place] [phone] Jennifer Ca MD [address] [place] [phone] Scheduled Orders Name Type Priority Associated Diagnoses Orde r Schedule MG Mammo Digital Screening bilat Imaging Routine Encounter for screening mammogram for malignant neoplasm of breast Expected: 06/16/2024, Expires: 06/09/2025 documented as of this encounter Visit Diagnoses Diagnosis Encounter for screening for osteoporosis- Primary Encounter for screening mammogram for malignant neoplasm of breast documented in this encounter Care Teams Oil Lease Operator Relationship Specialty Start Date End Date Truong Colon MD [address] [place] [address] Dr [address] [place] PCP - General 05/19/22 documented as of this encounter
--- OUTSIDE RECORDS SUMMARY | 2024-06-25 18:26 | XMS_ITS | Encounter Summary ---
Author Organization [facility] [place], Address [address] [place] [address] Phone Care Team Providers Care Medical Collections Specialist Name Role Phone Truong Colon MD Primary Care Provider +1- [phone] Encounter Details Date Type Department Care Team (Late st Contact Info) Description 05/31/2024 Telephone [facility] [address] [address] Deisi Wakefield RN [address] [place] [address] Social History Tobacco Use Types [...] get labs drawn. Lab orders faxed to [facility]. documented in this encounter Plan of Treatment Upcoming Encounters Date Type Department Care Team (Late st Contact Info) Description 07/16/2024 3:45 PM EDT Office Visit [facility], [address] [place] [address] Romero Jimenez MD [address] [place] [address] documented as of this encounter Visit Diagnoses Not on filedocumented in this encounter Care Teams Medical Collections Specialist Relationship Specialty Start Date End Date Truong Colon MD [address] [place] [address] [address] [place], [place] [phone] PCP - General Internal Medicine 03/06/23 documented as of this encounter
--- OUTSIDE RECORDS SUMMARY | 2024-06-25 18:26 | XMS_ITS | Encounter Summary ---
Author Organization [facility] Address [address] [place] [address] Phone Care Team Providers Care Head Mixer Name Role Phone Truong Colon MD Primary Care Provider +1- [phone] Encounter Details Date Type Department Care Team (Late st Contact Info) Description 01/21/2024 Orders Only [facility] [address] [place] [address] Dimitris Suarez PA Stage 3a [...] Visit [facility] [address] [place] [address] Romero Jimenez MD [address] [place] [address] [place] [address] documented as of this encounter Visit Diagnoses Diagnosis Stage 3a chronic kidney disease (HCC) Essential hypertension Peripheral vascular disease (HCC) Peripheral vascular disease Renal osteodystrophy documented in this encounter Care Teams Head Mixer Relationship Specialty Start Date End Date Truong Colon MD [address] [place] [address] PCP - General Internal Medicine 03/06/23 documented as of this encounter
--- OUTSIDE RECORDS SUMMARY | 2024-06-25 18:26 | XMS_ITS | Encounter Summary ---
Author Organization [facility] Address [address] [place] [address] Phone Care Team Providers Care Rough Carpenter Name Role Phone Truong Colon MD Primary Care Provider +1- [phone] Encounter Details Date Type Department Care Team (Late st Contact Info) Description 12/21/2021 Documentation Only [facility] [address] [place] [address] Dimitris Suarez PA Social History [...] Visit [facility] [address] [place] [address] Romero Jimenez MD [address] [place] [address] [place] [phone] documented as of this encounter Visit Diagnoses Not on filedocumented in this encounter Care Teams Rough Carpenter Relationship Specialty Start Date End Date Truong Colon MD [address] [place], [place] [phone] PCP - General Internal Medicine 03/06/23 documented as of this encounter
--- OUTSIDE RECORDS SUMMARY | 2024-06-25 18:26 | XMS_ITS | Encounter Summary ---
Author Organization [facility] [place], Address [address] [place] [address] Phone Care Team Providers Care Black Top Machine Operator Name Role Phone Truong Colon MD Primary Care Provider +1- [phone] Encounter Details Date Type Department Care Team (Late st Contact Info) Description 01/23/2024 Documentation Only [facility] [place], - Gloria [address] [place] [address] Jasmin Dumont [address] [place] [address] Social History Tobacco Use Types [...] Visit [facility] [place], [address] [facility] [place] [address] Romero Jimenez MD [address] [facility] [place] [address] documented as of this encounter Visit Diagnoses Not on filedocumented in this encounter Care Teams Black Top Machine Operator Relationship Specialty Start Date End Date Truong Colon MD [address] [place] [address] PCP - General Internal Medicine 03/06/23 documented as of this encounter
--- OUTSIDE RECORDS SUMMARY | 2024-06-25 18:26 | XMS_ITS | Encounter Summary ---
Author Organization [facility] Address [address] [place] [address] Phone Care Team Providers Care Housing Specialist Name Role Phone Truong Colon MD Primary Care Provider +1- [phone] Encounter Details Date Type Department Care Team (Late Contact Info) Description 04/04/2024 Documentation Only [facility] [address] [place] [address] [place] [address] Social History Tobacco Use Types Packs/Day [...] Visit [facility] [address] [place] [address] Romero Jimenez MD [address] [place] [address] [place] [address] documented as of this encounter Visit Diagnoses Not on filedocumented in this encounter Care Teams Housing Specialist Relationship Specialty Start Date End Date Truong Colon MD [address] [place] [address] PCP - General Internal Medicine 03/06/23 documented as of this encounter
--- OUTSIDE RECORDS SUMMARY | 2024-06-25 18:26 | XMS_ITS | Encounter Summary ---
Author Organization [facility] Address [address] [place] [address] Phone Care Team Providers Care Drive In Teller Name Role Phone Truong Colon MD Primary Care Provider +1- [phone] Encounter Details Date Type Department Care Team (Late Contact Info) Description 04/11/2022 Documentation Only [facility] [address] [place] [address] Kylie Gabriel [address] [place] [address] Social History Tobacco Use Types [...] Visit [facility] [address] [place] [address] Romero Jimenez MD [address] [place] [address] [place] [address] documented as of this encounter Visit Diagnoses Not on filedocumented in this encounter Care Teams Drive In Teller Relationship Specialty Start Date End Date Truong Colon MD [address] [place] [address] PCP - General Internal Medicine 03/06/23 documented as of this encounter
--- OUTSIDE RECORDS SUMMARY | 2024-06-25 18:26 | XMS_ITS | Encounter Summary ---
Author Organization [facility] Address [address] [place] [address] Phone Care Team Providers Care Purchasing Internship Name Role Phone Truong Colon MD Primary Care Provider +1- [phone] Encounter Details Date Type Department Care Team (Late Contact Info) Description 04/10/2024 Documentation Only [facility] [address] [place] [address] Kylie Gabriel [address] [place] [address] Social History Tobacco Use Types [...] Visit [facility] [address] [place] [address] Romero Jimenez MD [address] [place] [address] [place] [address] documented as of this encounter Visit Diagnoses Not on filedocumented in this encounter Care Teams Purchasing Internship Relationship Specialty Start Date End Date Truong Colon MD [address] [place] [address] PCP - General Internal Medicine 03/06/23 documented as of this encounter
--- OUTSIDE RECORDS SUMMARY | 2024-06-25 18:26 | XMS_ITS | Encounter Summary ---
Author Organization [facility] Address [address] [place] [address] Phone Care Team Providers Care Blow Down Helper Name Role Phone Truong Colon MD Primary Care Provider +1- [phone] Encounter Details Date Type Department Care Team (Late Contact Info) Description 05/04/2022 Documentation Only [facility] [address] [place] [address] Kylie Gabriel [address] [place] [address] Social History Tobacco Use Types [...] Visit [facility] [address] [place] [address] Romero Jimenez MD [address] [place] [address] [place] [address] documented as of this encounter Visit Diagnoses Not on filedocumented in this encounter Care Teams Blow Down Helper Relationship Specialty Start Date End Date Truong Colon MD [address] [place] [address] PCP - General Internal Medicine 03/06/23 documented as of this encounter
--- OUTSIDE RECORDS SUMMARY | 2024-06-25 18:26 | XMS_ITS | Encounter Summary ---
Author Organization [facility], Address [address] [place] [address] Phone Care Team Providers Care Motorized Squad Commanding Officer Name Role Phone Truong Colon MD Primary Care Provider +1- [phone] Reason for Visit * Reason Onset Date Comments reminder for labs 06/05/2024 Encounter Details Date Type Department Care Team (Late Contact Info) Description 06/05/2024 Telephone [facility] [address] [place] [address] Deisi Wakefield RN [address] [facility] [place] [address] reminder for labs Social History [...] current labs. Pt has standing orders at [facility]. Pt will go this week. documented in this encounter Plan of Treatment Upcoming Encounters Date Type Department Care Team (Late Contact Info) Description 07/16/2024 3:45 PM EDT Office Visit [facility] [place], [address] [place] [address] Romero Jimenez MD [address] [facility] [place] [phone] documented as of this encounter Visit Diagnoses Not on filedocumented in this encounter Care Teams Motorized Squad Commanding Officer Relationship Specialty Start Date End Date Truong Colon MD [address] [place] [address] [address] [place] [address] PCP - General Internal Medicine 03/06/23 documented as of this encounter
--- OUTSIDE RECORDS SUMMARY | 2024-06-25 18:26 | XMS_ITS | Encounter Summary ---
Author Organization [facility] Address [address] [place] [address] Phone Care Team Providers Care Dermatology Nurse Practitioner Name Role Phone Truong Colon MD Primary Care Provider +1- [phone] Encounter Details Date Type Department Care Team (Late Contact Info) Description 04/24/2024 Documentation Only [facility] [address] [place] [address] Kylie Gabriel [address] [place] [address] Social History Tobacco Use Types [...] Visit [facility] [address] [place] [address] Romero Jimenez MD [address] [place] [address] [place] [address] documented as of this encounter Visit Diagnoses Not on filedocumented in this encounter Care Teams Dermatology Nurse Practitioner Relationship Specialty Start Date End Date Truong Colon MD [address] [place] [address] PCP - General Internal Medicine 03/06/23 documented as of this encounter
--- OUTSIDE RECORDS SUMMARY | 2024-06-25 18:26 | XMS_ITS | Encounter Summary ---
Author Organization [facility] Address [address] [place] [address] Phone Care Team Providers Care Sand Mixer Operator Name Role Phone Truong Colon MD Primary Care Provider +1- [phone] Encounter Details Date Type Department Care Team (Late st Contact Info) Description 11/09/2021 Documentation Only [facility] [address] [place] [address] Dimitris Suarez PA Social History [...] Visit [facility] [address] [place] [address] Romero Jimenez MD [address] [place] [address] [place] [address] documented as of this encounter Visit Diagnoses Not on filedocumented in this encounter Care Teams Sand Mixer Operator Relationship Specialty Start Date End Date Truong Colon MD [address] [place], [place] [id number] PCP - General Internal Medicine 03/06/23 documented as of this encounter
--- OUTSIDE RECORDS SUMMARY | 2024-06-25 18:26 | XMS_ITS | Encounter Summary ---
Author Organization [facility] Address [address] [place] [address] Phone Care Team Providers Care Rn Otolaryngology Name Role Phone Truong Colon MD Primary Care Provider +1- [phone] Encounter Details Date Type Department Care Team (Late Contact Info) Description 01/31/2024 Documentation Only [facility] [address] [place] [address] Kylie Gabriel [address] [place] [address] Social History Tobacco Use [...] [facility] [address] [place] [address] Romero Jimenez MD [address] [place] [address] [place] [address] documented as of this encounter Visit Diagnoses Not on filedocumented in this encounter Care Teams Rn Otolaryngology Relationship Specialty Start Date End Date Truong Colon MD [address] [place] [address] PCP - General Internal Medicine 03/06/23 documented as of this encounter
--- OUTSIDE RECORDS SUMMARY | 2024-06-25 18:26 | XMS_ITS | Encounter Summary ---
Author Organization [facility] Address [address] [place] [address] Phone Care Team Providers Care Ventilating Expert Name Role Phone Truong Colon MD Primary Care Provider +1- [phone] Encounter Details Date Type Department Care Team (Late st Contact Info) Description 01/23/2024 Telephone [facility] [place], [address] [place] [address] Rachel Garcia [address] [place] [address] Social History Tobacco Use Types [...] Rachel Garcia - 01/23/2024 11:20 AM EDT Aston Espinal pt called last week to inquire about procrit visit-- she had labs drawn yesterday a [facility] and I faxed over our order for add on. Please advise- thanks! documented in this encounter Plan of Treatment Upcoming Encounters Date Type Department Care Team (Late st Contact Info) Description 07/16/2024 3:45 PM EDT Office Visit [facility] [place], [address] [place] [address] Romero Jimenez MD [address] [facility] [place] [address] documented as of this encounter Visit Diagnoses Not on filedocumented in this encounter Care Teams Ventilating Expert Relationship Specialty Start Date End Date Truong Colon MD [address] [place], [place] [phone] PCP - General Internal Medicine 03/06/23 documented as of this encounter
--- OUTSIDE RECORDS SUMMARY | 2024-06-25 18:26 | XMS_ITS | Encounter Summary ---
Author Organization [facility] Address [address] [place] [address] Phone Care Team Providers Care Mason Tender Restoration Labor Name Role Phone Truong Colon MD Primary Care Provider +1- [phone] Encounter Details Date Type Department Care Team (Late st Contact Info) Description 05/31/2024 Office Communication [facility] [address] [place] [address] Deisi Wakefield RN [address] [place] [address] Social History Tobacco Use Types [...] RN - 05/31/2024 12:06 PM EST Does [facility] have standing orders for lab drawn for Jacinda? I did fax orders today. documented in this encounter Plan of Treatment Upcoming Encounters Date Type Department Care Team (Late st Contact Info) Description 07/16/2024 3:45 PM EDT Office Visit [facility], [address] [place] [address] Romero Jimenez MD [address] [place] [address] documented as of this encounter Visit Diagnoses Not on filedocumented in this encounter Care Teams Mason Tender Restoration Labor Relationship Specialty Start Date End Date Truong Colon MD [address] [place] [address] [address] [place] [address] PCP - General Internal Medicine 03/06/23 documented as of this encounter
--- OUTSIDE RECORDS SUMMARY | 2024-06-25 18:27 | XMS_ITS | Encounter Summary ---
Author Organization [facility] Address [address] [place] [address] Phone Care Team Providers Care Bariatric Coordinator Name Role Phone Truong Colon MD Primary Care Provider +1- [phone] Encounter Details Date Type Department Care Team (Late st Contact Info) Description 06/13/2024 Orders Only [facility] [address] [place] [address] Kylie Gabriel [address] [place] [address] Anemia in chronic kidney disease; [...] Visit [facility] [address] [place] [address] Romero Jimenez MD [address] [place] [address] [place] [address] documented as of this encounter Visit Diagnoses Diagnosis Anemia in chronic kidney disease Stage 3b chronic kidney disease (HCC) Iron deficiency anemia, not otherwise specified documented in this encounter Care Teams Bariatric Coordinator Relationship Specialty Start Date End Date Truong Colon MD [address] [place] [address] PCP - General Internal Medicine 03/06/23 documented as of this encounter
--- OUTSIDE RECORDS SUMMARY | 2024-06-25 18:27 | XMS_ITS | Clinical Summary ---
Author Organization [facility] [place] [facility], Address [address] [place] [address] [place] [address] Phone Care Team Providers Care Web Design Instructor Name Role Phone Truong Colon MD Primary Care Provider +1- [phone] Allergies Active Allergy Reactions Criticality Noted Date [...] VIA ORAL TODOS LOS TREVINO Duration: 90 6 Active amLODIPine (NORVASC) 10 MG tablet Take 10 mg by mouth 1 (one) time each day 0 Active carvedilol (COREG) 6.25 MG tablet Take 12.5 mg by mouth 2 (two) times a day with meals as directed 0 Active docusate sodium (COLACE) 100 MG capsule TOME ASIA C PSULA DOS VECES AL D A 0 Active levothyroxine (SYNTHROID, LEVOTHROID) 125 MCG tablet Take 125 mcg by mouth 1 (one) time each day 0 Active pregabalin (LYRICA) 75 MG capsule TOME 1 C PSULA POR V A ORAL AL ACOSTARSE 1 Active Eliquis 2.5 MG tablet TAKE 1 TABLET TWICE DAILY IN THE AM + EVENING START DAY BEFORE PROCEDURE +CONTINUE FOR 1 MONTH AFTER 2 Active omeprazole (PriLOSEC) [address] capsule TAKE 1 CAPSULE BY MOUTH DAILY FOR 180 DAYS. 2 Active magnesium oxide 400 (240 Mg) MG tablet Take 1 tablet by mouth 1 (one) time each day 4 Active valACYclovir (VALTREX) 500 MG tablet Take 500 mg by mouth in the morning and 500 mg in the evening. TWICE A DAY FOR 7 DAYS. 4 Active calcitriol (ROCALTROL) 0.5 MCG capsule TAKE 2 CAPSULES BY MOUTH CADA SEMANA 24 capsule 14 5 Active Active Problems Problem Noted Date Diagnosed [...] Encounters Date Type Department Care Team Description 06/13/2024 Orders Only [facility] [address] [place] [address] Kylie Gabriel Anemia in chronic kidney disease; Stage 3b chronic kidney disease (HCC); Iron deficiency anemia, not otherwise specified 06/05/2024 Telephone [facility] [address] [place] [address] Deisi Wakefield, RN reminder for labs 06/03/2024 Documentation Only [facility] [address] [place] [address] HarveyKylie johnson 05/31/2024 Office Communication [facility] [address] [place] [address] Deisi Wakefield, ROGELIO 05/31/2024 Telephone [facility] [address] [place] [address] Deisi Wakefield, ROGELIO 05/27/2024 Documentation Only [facility] [address] [place] [address] HarveyKylie johnson 05/16/2024 Orders Only [facility] [address] [place] [address] Kylie Gabriel Anemia in chronic kidney disease; Stage 3b chronic kidney disease (HCC); Iron deficiency anemia, not otherwise specified 05/11/2024 Refill [facility] [address] [place] [address] Eligio Meza MD 04/29/2024 Documentation Only [facility] [address] [place] [address] Britt Sol 04/24/2024 Documentation Only [facility] [address] [place] [place] [address] HarveyKylie johnson 04/21/2024 Telephone [facility] [address] [place] [address] Deisi [place], RN [facility] trying to schedule Retacrit injections 04/10/2024 Documentation Only [facility] [address] [place] [place] [address] HarveyKylie johnson 04/10/2024 Documentation Only [facility] [address] [place] [address] Kylie Gabriel 04/10/2024 Documentation Only [facility] [address] [place] [address] Kylie Gabriel 04/09/2024 Office Communication [facility] [place] - [address] [place] [address] Deisi Wakefield, ROGELIO 04/04/2024 Documentation Only [facility] [address] [place] [address] Jasmin Dumont 04/04/2024 Office Communication [facility] [address] [place] [address] Kylie Gabriel 04/03/2024 Office Communication [facility] [address] [place] [address] Jasmin Dumont from Last 3 Months [...] Visit [facility] [place], [address] [place] [address] Romero Jimenez MD [address] [facility] [place] [address] Health Maintenance Due Date Last Done Comments [...] Most Recently Relevant to Health Maintenance Insurance * Guarantor: Jacinda Blancas Account Type Relation to Patient Date of Phone Billing Address Personal/Family Self [address] [facility] DUAL SNP ([id number]) [address] Care Teams Web Design Instructor Relationship Specialty Start Date End Date Truong Colon MD [address] [place] [address] PCP - General Internal Medicine 03/06/23
--- OUTSIDE RECORDS SUMMARY | 2024-06-25 18:27 | XMS_ITS ---
Author Organization [facility] [place], Address [address] [place] [address] [place] [address] Phone Care Team Providers Care Superintendent Measurement Name Role Phone Truong Colon MD Primary Care Provider +1- [phone] Active Problems Problem Noted Date Diagnosed Date [...] treatments are documented for this patient in [facility]. Treatments may have been administered [...]
--- OUTSIDE RECORDS SUMMARY | 2024-06-25 18:27 | XMS_ITS | Encounter Summary ---
Author Organization [facility] Address [address] [place] [address] Phone Care Team Providers Care Dish Person Name Role Phone Truong Colon MD Primary Care Provider +1- [phone] Encounter Details Date Type Department Care Team (Late Contact Info) Description 04/29/2024 Documentation Only [facility] [address] [place] [address] Britt Sol [address] [place] [address] Social History Tobacco Use Types [...] Visit [facility] [address] [place] [address] Romero Jimenez MD [address] [place] [address] [place] [address] documented as of this encounter Visit Diagnoses Not on filedocumented in this encounter Care Teams Dish Person Relationship Specialty Start Date End Date Truong Colon MD [address] [place] [address] PCP - General Internal Medicine 03/06/23 documented as of this encounter
--- OUTSIDE RECORDS SUMMARY | 2024-06-25 18:27 | XMS_ITS ---
Author Organization [facility] Jaylan sampson Bashir Address [address] [facility] [place] [address] Care Team Providers Care Spinning Lathe Operator Hydraulic Name Role Phone Isaiah DURAN, [place] Primary Care Provider Boby Laguerre Unavailable [phone] Allergies Allergen (clinical drug ingredient) Drug/Non Drug [...] Ordered Date Performed Result Body Sit e 30986-HYNCMFV NAIL, 6 OR MORE 11/08/2023 N/A 06815-Heid Destruction, 1-14 11/08/2023 N/A 62303-Aqjnaozg Plate 11/08/2023 N/A 97148-Leolrnvs Plate Each Additional 11/08/2023 N/A 15912-LKYY SKIN LESIONS, OVER 4 11/08/2023 N/A Encounters Encounter Location Date Provider Diagnosis [facility] [address] [address] 11/08/2023 Boby Chapman 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, with unspecified [...] Clinical Notes Section Notes 11/08/2023 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, with unspecified [...] days Pending Test Test Name Order Date 79330-MKALTSA NAIL, 6 OR MORE 11/08/2023 00806-Qsok Destruction, 1-14 11/08/2023 35243-Oxdboxju Plate 11/08/2023 65142-Cvsstzeu Plate Each Additional 39901-YVFK SKIN LESIONS, OVER 4 11/08/19 24 Next Appt Details Follow Up: 2 Months, Reason: Provider Name:Boby Chapman , 07/31/2024 02:00:00 PM, [address] [facility], [address], [place], [address], Procedure Notes * Category Sub-Category Detail Notes Wart Treatment Procedure Verrucae(s) were debrided to pin-point bleeding margins with sterile surgical blade, silver nitrate chemocautery applied, recomm. immune-boosting meds such as zinc, recomm. follow up with topical chemosurgical agents, Pt STILL defers any other forms of tx (64436), CONT, recomm. Wartstick 40% Salicylic acid application [...] and future surgical procedures to prevent recurrence (59633/32), CIRCULATION: Pt was advised as to the [...] as necessary. Patient chooses, no pharmaceutical tx (76286) Keratoma Treatment Parring or Cutting o f Benign Hyperkeratotic Lesion(s) 16444 ( >4 Lesions) - The Benign hyperkeratotic lesions, as described above were pared, and/or cut utilizing a sterile #15 blade, tissue nippers, and/or dremel, Q8 Progress Notes * Tommie BLANCASOB:[birth year] (78 yo F)Acc No.[id number]:11/08/2023 Progress Note Patient:?Jacinda Blancas Provider:?Boby Chapman DPM :1945???Age:78 Y???Sex:Female D ate:11/08/2023 Address:[address] [place], [place] [address] Pcp:Truong Colon MD Subjective: * Chief Complaints: [...] wart - B07.0 (Malka ngozi), LEFT?2.?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 Start [...] as necessary. Patient chooses, no pharmaceutical tx (68194).?Keratoma Treatment:?Parring or Cutting of Benign Hyperkeratotic Lesion(s)?16406 ( >4 Lesions) - The Benign hyperkeratotic [...] and future surgical procedures to prevent recurrence (65344/32), CIRCULATION: Pt was advised as to the [...] STILL defers any other forms of tx (12725), CONT, recomm. Wartstick 40% Salicylic acid application under occlusion as directed, CIRCULATION: Any more invasive procedure to wart deferred due to circulation risk.? * Procedure Codes:?56782 DEBRI DE NAIL, 6 OR MORE, Modifiers: XS 79253 Avulsion Plate, Modifiers: XS , [id number] Wart Destruction, 1-14, Modifiers: XS 59625 Avulsion Plate Each Additional, Modifiers: XS , [id number] TRIM SKIN LESIONS, OVER 4, Modifiers: XS [...] DPM Date:?2023 Generated for Yovanny toussaint/Leah/Lois on:?06/25/2024 06:26 PM [...]
--- OUTSIDE RECORDS SUMMARY | 2024-06-25 18:27 | XMS_ITS | Encounter Summary ---
Author Organization [facility] Address [address] [place] [address] Phone Care Team Providers Care Internet Sales Representative Name Role Phone Truong Colon MD Primary Care Provider +1- [phone] Encounter Details Date Type Department Care Team (Late Contact Info) Description 10/26/2023 Documentation Only [facility] [address] [place] [address] Kylie Gabriel [address] [place] [address] Social History Tobacco Use Types [...] Visit [facility] [address] [place] [address] Romero Jimenez MD [address] [place] [address] [place] [address] documented as of this encounter Visit Diagnoses Not on filedocumented in this encounter Care Teams Internet Sales Representative Relationship Specialty Start Date End Date Truong Colon MD [address] [place] [address] PCP - General Internal Medicine 03/06/23 documented as of this encounter
--- OUTSIDE RECORDS SUMMARY | 2024-06-25 18:27 | XMS_ITS | Clinical Summary ---
Author Organization [facility] Address [address] [place] [address] Phone Care Team Providers Care Installation Engineer Name Role Phone Truong Colon MD [...] tis 03/28/2017 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 Encounters Date Type Department Care Team Description 06/09/2024 Telephone [facility] Hematology Oncology [address] [place] [address] Jillian-Jennifer Gonzalez MD from Last 3 Months Surgical History Surgery Date Site/Laterality Comments LUMBAR [...] AM EDT Appointment [facility] [address] [place] [phone] 10/02/2024 11:00 AM EDT Office Visit [facility] Hematology Oncology [address] [place] [address] Jennifer Ca MD [address] [place] [address] Health Maintenance Due Date Last Done Comments [...] spine and hips were performed on a [employer] fan beam bone densitometer. ? Bone mineral [...] spine and hips were performed on a [employer] beam bone densitometer. Bone mineral density measurements [...] Most Recently Relevant to Health Maintenance Insurance [facility] Member Subscriber Plan / Payer (Ef fective 2024-Present) Name:Yonny Jacinda Relation to Subscriber:Spouse Name:YONNYDANIELITOJACINDA Date of :1945 (Home) Address: [address] [place] [address] Payer ID:[id number] Group ID:[id number] Type:Not on file Address: [place] [address] [place] [address] Care Teams Installation Engineer Relationship Specialty Start Date End Date Truong Colon MD [address] [place] [address] [place] [address] PCP - General 05/19/22
[2024-06-25 18:42] LABS: Ferritin 350 ng/mL (10-250)
== END 2024-06-25 15:12 | disposition home or self-care (01) ==
LOC: HO.LAB 15:11
PROVIDERS: PCP Internal Medicine; Visit Provider Internal Medicine Nephrology
DX: N18.32 Chronic kidney disease, stage 3b (principal); D50.9 Iron deficiency anemia, unspecified; D63.1 Anemia in chronic kidney disease
CPT/HCPCS: 36415; 80051; 82310; 82565; 82728; 83540; 84520; 85025

== ENCOUNTER 2024-06-26 08:50 | Outpatient (AMB) | payer OTHER, SELFPAY ==
--- NOTE | 2024-06-26 09:03 | MHC.OFFVIS ---
Intake Visit Reasons: DEXA results Pro Shop Attendant Required: Yes Pro Shop Attendant Language: Mosaic Tile Maker Services: Pro Shop Attendant Present (in person) Pro Shop Attendant Name: Daphne QUINTANA Information Interpreted: non-clinical & clinical Sodium Chlorite Operator: Sodium Chlorite Operator Present (Daphne Webster MARIANO) Accompanied by: Self / Same As Patient Allergies Penicillins [PENICILLINS] Allergy (Intermediate, Verified 06/26/24 09:04) rash senna Allergy (Intermediate, Verified 06/26/24 09:04) rash HPI Comments Details: The patient is presenting for follow up regarding DEXA scan results. T score @ spine and femoral Neck respectively were=+1 /-0.9 and 10 year FRAX risk = 8.2/1.6 % for severe osteoporosis and fracture. [facility] Medical History (Updated 06/26/24 @ 09:16 by Miguel Amin MD) Ambulates with cane Difficulty swallowing Osteoarthritis of right knee BPV (benign positional vertigo) Gait instability Cervicogenic headache Cervicalgia Vertigo Chronic kidney disease, stage III (moderate) Obesity (BMI 30-39.9) Gastritis Benign essential hypertension GERD without esophagitis Acquired hypothyroidism Constipation Lumbar spondylosis Post laminectomy syndrome Connective tissue disease Interstitial lung disease Osteopenia PAC (premature atrial contraction) Sjogrens syndrome Hypothyroid Breast cancer Raynauds disease SAMARA positive Surgical History 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) Hx of colonoscopy Hx of tubal ligation H/O varicose vein stripping History of cataract surgery H/O lumpectomy Hx of cholecystectomy History of back surgery Family History Father Emphysema of lung Cancer Brother Emphysema of lung Mother Bone cancer Son PONV (postoperative nausea and vomiting) Other Arthritis Social History Household Members: Significant Other and Children Housing: Apartment Are you a primary acute care clinical nurse specialist to a significant other at home: No Do you presently have visiting nurse or other home services: No Alcohol intake: former Comment: pt reports this is her baseline pain Patient Tobacco Use Status: Never used Tobacco e-Cigarette/Vaping Use: Never Used Second Hand Smoke Exposure: No service: No Current occupational status: retired Cognitive needs: No Hearing needs: No Vision needs: Yes (Glasses) Review of Systems Const All systems reviewed & are unremarkable except as noted in HPI and below Reports as per HPI and Reports no additional complaints GI Reports no additional complaints Reports no additional complaints Assessment & Plan Assessment & Plan (1) Osteopenia: Code(s): M85.80 - Other specified disorders of bone density and structure, unspecified site Category: Medical Plan: Discussed with the patient the DEXA results and FRAX risk. FRAX risk and T score showed no evidence of osteoporosis. Discussed with the patient all the options for osteoporosis prevention including lifestyle modifications including Ca+D supplements 1200 mg po qd/800 MIU, Weight bearing exercises and proteine supplements. The patient verbalized understanding and agreed plan will repeat DEXA in 2 years. DEXA scan report states that FRAX risk is 82% for major osteoporosis, review of the technical sheet states 8.2%, message to the radiology commissioned defence force officer was sent to ask the radiologist to correct the report. Coding Level of Care Code Est Pt Level 3 (50074) Diagnoses Osteopenia M85.80
--- OUTSIDE RECORDS SUMMARY | 2024-06-26 09:32 | XMS_ITS ---
Author Organization [employer] [facility] Address [address] [id number] Care Team Providers Care Sumac Tanner Name Role Phone Truong Colon MD Primary Care Provider +1- [phone] Active Problems Problem Noted Date Diagnosed Date Iron deficiency anemia 05/18/2022 Malignant neoplasm of upper- outer quadrant of left breast in female, estrogen receptor positive 03/28/2017 Gastroesophageal reflux disease without esophagi tis 03/28/2017 Acquired hypothyroidism 03/28/2017 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 Current Oncology Plans No current plan information found. Past Plans Radiation Treatments * No radiation treatments are documented for this patient in [facility]. Treatments may have been administered in another system.
--- OUTSIDE RECORDS SUMMARY | 2024-06-26 09:32 | XMS_ITS | Encounter Summary ---
Author Organization [facility] Address [address] [place] [address] Phone Care Team Providers Care Structural Technician Name Role Phone Truong Colon MD Primary Care Provider +1- [phone] Encounter Details Date Type Department Care Team (Late Contact Info) Description 05/27/2024 Documentation Only [facility] [address] [place] [address] Kylie Gabriel [address] [place] [address] Social History Tobacco Use Types [...] [facility] [address] [place] [address] Romero Jimenez MD [address] [place] [address] [place] [address] documented as of this encounter Visit Diagnoses Not on filedocumented in this encounter Care Teams Structural Technician Relationship Specialty Start Date End Date Truong Colon MD [address] [place] [address] PCP - General Internal Medicine 03/06/23 documented as of this encounter
--- OUTSIDE RECORDS SUMMARY | 2024-06-26 09:32 | XMS_ITS | Encounter Summary ---
Author Organization [facility] Address [address] [place] [address] Phone Care Team Providers Care Country Printer Name Role Phone Truong Colon MD Primary Care Provider +1- [phone] Encounter Details Date Type Department Care Team (Late st Contact Info) Description 05/12/2021 Documentation Only [facility] [address] [place] [address] Eligio Meza MD [address] [place] [address] [place] [address] Social History Tobacco Use Types [...] [facility] [address] [place] [address] Romero Jimenez MD [address] [facility] [place] [address] documented as of this encounter Visit Diagnoses Not on filedocumented in this encounter Care Teams Country Printer Relationship Specialty Start Date End Date Truong Colon MD [address] [place] [address] PCP - General Internal Medicine 03/06/23 documented as of this encounter
--- OUTSIDE RECORDS SUMMARY | 2024-06-26 09:32 | XMS_ITS | Encounter Summary ---
Author Organization [facility] Address [address] [place] [address] Care Team Providers Care Architectural Design Professor Name Role Phone Truong Colon MD Primary Care Provider +1- [phone] Reason for Referral * Imaging (Routine) - Authorized Specialty Diagnoses / Procedures Referred By Contac t Referred To Contact Radiology Diagnoses Encounter for screening mammogram for malignant neoplasm of breast Procedures MG Mammo Digital Screening bilat Jennifer Ca MD [address] [place] [address] Phone: tel: fax: [address] [address] Phone: tel: Referral ID Status Reason Start Date Expiration Date V isits Requested Visits Authorized [id number] Authorized 06/09/2024 06/09/2025 1 1 Encounter Details Date Type Department Care Team (Late st Contact Info) Description 06/09/2024 Telephone [facility] Hematology Oncology [address] [place] [address] Jennifer Ca MD [address] [place] [address] Social History Tobacco Use Types Packs/Day [...] AM EDT Appointment [facility] [address] [address] 10/02/2024 11:00 AM EDT Office Visit [facility] Hematology Oncology [address] [place] [address] Jennifer Ca MD [address] [place] [address] Scheduled Orders Name Type Priority Associated Diagnoses Orde r Schedule MG Mammo Digital Screening bilat Imaging Routine Encounter for screening mammogram for malignant neoplasm of breast Expected: 06/16/2024, Expires: 06/09/2025 documented as of this encounter Visit Diagnoses Diagnosis Encounter for screening for osteoporosis- Primary Encounter for screening mammogram for malignant neoplasm of breast documented in this encounter Care Teams Architectural Design Professor Relationship Specialty Start Date End Date Truong Colon MD [address] [place] [address] [address] [place] PCP - General 05/19/22 documented as of this encounter
--- OUTSIDE RECORDS SUMMARY | 2024-06-26 09:32 | XMS_ITS | Encounter Summary ---
Author Organization [facility] Address [address] [place] [address] Phone Care Team Providers Care Senior Administrative Assistant Name Role Phone Truong Colon MD Primary Care Provider +1- [phone] Encounter Details Date Type Department Care Team (Late st Contact Info) Description 05/16/2024 Orders Only [facility] [address] [address] Kylie Gabriel [address] [place] [address] Anemia in chronic kidney disease; [...] Visit [facility] [address] [place] [place] [address] Romero Jimenez MD [address] [place] [address] [place] [address] documented as of this encounter Visit Diagnoses Diagnosis Anemia in chronic kidney disease Stage 3b chronic kidney disease (HCC) Iron deficiency anemia, not otherwise specified documented in this encounter Care Teams Senior Administrative Assistant Relationship Specialty Start Date End Date Truong Colon MD [address] [place] [address] PCP - General Internal Medicine 03/06/23 documented as of this encounter
--- OUTSIDE RECORDS SUMMARY | 2024-06-26 09:32 | XMS_ITS | Clinical Summary ---
Author Organization [facility] Address [address] [place] [address] Care Team Providers Care Paleology Professor Name Role Phone Truong Colon MD Primary Care Provider +1- [phone] Allergies Active Allergy Reactions Criticality Noted Date [...] age to complete this topic Care Teams Paleology Professor Relationship Specialty Start Date End Date Truong Colon MD [address] [facility] [address] [facility] [place] [id number] PCP - General Internal Medicine 05/19/22
--- OUTSIDE RECORDS SUMMARY | 2024-06-26 09:32 | XMS_ITS ---
Author Organization [facility] Address [address] [place] [address] Care Team Providers Care Dietary Worker Name Role Phone Isaiah DURAN, [place] Primary Care Provider Boby Laguerre Unavailable [phone] Allergies Allergen (clinical drug ingredient) Drug/Non Drug [...] Ordered Date Performed Result Body Sit e 99200-ADZVUVN NAIL, 6 OR MORE 01/24/2024 N/A 58046-Qcxm Destruction, 1-14 01/24/2024 N/A 38232-DMZE SKIN LESIONS, OVER 4 01/24/2024 N/A Encounters Encounter Location Date Provider Diagnosis [facility] [address] [address] 01/24/2024 Boby Chapman Atherosclerosis of fed[place] indians [place] artery of both lower extremities, with unspecified presence of clinical manifestation I70.203 ; Plantar wart B07.0 ; Tinea unguium B35.1 ; Pain in right toe(s) M79.674 ; Pain in left toe(s) M79.675 ; Left foot pain M79.672 and Xerosis of skin L85.3 Assessments Encounter Date Diagnosis (ICD Code) Assessment Notes Treatment Notes Treatment Clinical Notes Section Notes 01/24/2024 Atherosclerosis of federated indians [place] artery of both lower extremities, with unspecified [...] 01/24/2024 Pending Test Test Name Order Date 08043-RGCMHNY NAIL, 6 OR MORE 01/24/2024 84317-Zrof Destruction, 1-14 01/24/2024 16033-CGEI SKIN LESIONS, OVER 4 01/24/20 24 Next Appt Details Follow Up: 2 Months, Reason: Provider Name:Boby Chapman , 07/31/2024 02:00:00 PM, [address] [facility], [address], [place], [address], Procedure Notes * Category Sub-Category Detail Notes Wart Treatment Procedure Verrucae were de brided to pin-point bleeding margins with sterile 15 surgical blade, silver nitrate chemocautery applied, recomm. immune-boosting meds such as zinc, recomm. follow up with topical chemosurgical agents, Pt defers any other forms of tx - 52310 Debride Nail 6-10 Nail debridement Performance o f this nail treatment by a nonprofessional would put this patients foot and overall health at risk. Therefore, nail debridement was performed extensively to reduce/remove overall nail length, girth, thickness, subungual debris, and necrotic tissue, by manual and/or electrical means through the use of a nail nipper and/or dremel-type napper grinder, to a more viable healthy nail plate or bed tissue 6-10. Silver nitrate used for any petechial bleeding as necessary. Definitive antifungal treatment options have been reviewed and discussed with the patient. The patient chooses, no pharmaceutical tx - 31491 Keratoma Treatment Parring or Cutting o f Benign Hyperkeratotic Lesion(s) (-57) More than 4 Lesions - The Benign hyperkeratotic lesions, as described above were pared, and/or cut utilizing a sterile 15 blade, tissue nippers, and/or dremel - 94794 , Q8 Progress Notes * Tommie BLANCASOB:[birth year] (78 yo F)Acc No.[id number]:01/24/2024 Progress Note Patient:?Jacinda BLANCAS Provider:?Boby Chapman DPM :1945???Age:78 Y???Sex:Female D ate:01/24/2024 Address:[address] [place] [address] Pcp:Truong Colon MD Subjective: * Chief Complaints: [...] wart - B07.0 (Malka ngozi)???Specify :LEFT???2.?Atherosclerosis of [place] artery of both lower extremities, with unspecified presence of clinical manifestation - I70.203???3.?Tinea unguium - B35.1???4.?Pain in right toe(s) - M79.674???5.?Pain in left toe(s) - M79.675???6.?Left foot pain - M79.672???7.?Xerosis of skin - L85.3???Specify :Acute problem, Stable (1=3),Response to treatment - Improvement??? Plan: * Treatment: 2.?Atherosclerosis of fed[place] ind[place] artery of both lower extremities, with unspecified presence of clinical manifestation?Procedure: 66793-CBPX SKIN LESIONS, OVER 4 3.?Tinea unguium?Procedure: 54757-YXBQSQG NAIL, 6 OR MORE 4.?Xerosis of skin? [...] use of a nail nipper and/or dremel-type napper grinder, to a more viable healthy nail plate or bed tissue 6-10. Silver nitrate used for any petechial bleeding as necessary. Definitive antifungal treatment options have been reviewed and discussed with the patient. The patient chooses, no pharmaceutical tx - 41046.?Keratoma Treatment:?Parring or Cutting of Benign Hyperkeratotic Lesion(s)?(-57) More than 4 Lesions - The Benign hyperkeratotic lesions, as described above were pared, and/or cut utilizing a sterile 15 blade, tissue nippers, and/or dremel - 78189 , Q8.?Wart Treatment:?Procedure?Verrucae were debrided to pin-point bleeding margins with sterile 15 surgical blade, silver nitrate chemocautery applied, recomm. immune-boosting meds such as zinc, recomm. follow up with topical chemosurgical agents, Pt defers any other forms of tx - 33416.? * Procedure Codes:?74372 DEBRI DE NAIL, 6 OR MORE, Modifiers: XS 72261 Wart Destruction, 1-14, Modifiers: XS 17520 TRIM SKIN LESIONS, OVER 4, Modifiers: XS [...] Chapman DPM Date:?2023 Generated for Yovanny toussaint/Leah/eTrannadeen on:?06/26/2024 09:32 AM EST History and Physical Notes * [...]
--- OUTSIDE RECORDS SUMMARY | 2024-06-26 09:33 | XMS_ITS | Encounter Summary ---
Author Organization [facility] Address [address] [place] [address] Phone Care Team Providers Care Drilling Superintendent Name Role Phone Truong Colon MD Primary Care Provider +1- [phone] Encounter Details Date Type Department Care Team (Late st Contact Info) Description 01/14/2024 Documentation Only [facility] [address] [place] [address] Pricilla De LeonG[place]BY, [place] [address] [place] [address] Social History Tobacco Use Types [...] [facility] [address] [place] [address] Romero Jimenez MD [address] [place] [address] [place] [address] documented as of this encounter Visit Diagnoses Not on filedocumented in this encounter Care Teams Drilling Superintendent Relationship Specialty Start Date End Date Truong Colon MD [address] [place] [address] PCP - General Internal Medicine 03/06/23 documented as of this encounter
--- OUTSIDE RECORDS SUMMARY | 2024-06-26 09:33 | XMS_ITS | Encounter Summary ---
Author Organization [facility] Address [address] [place] [address] Phone Care Team Providers Care Coyote Hunter Name Role Phone Truong Colon MD Primary Care Provider +1- [phone] Encounter Details Date Type Department Care Team (Late st Contact Info) Description 12/21/2021 Documentation Only [facility] [address] [place] [address] Dimitris Suarez PA Social History [...] Visit [facility] [address] [place] [address] Romero Jimenez MD [address] [place] [address] [place] [address] documented as of this encounter Visit Diagnoses Not on filedocumented in this encounter Care Teams Coyote Hunter Relationship Specialty Start Date End Date Truong Colon MD [address] [place], [place] [id number] PCP - General Internal Medicine 03/06/23 documented as of this encounter
--- OUTSIDE RECORDS SUMMARY | 2024-06-26 09:33 | XMS_ITS | Encounter Summary ---
Author Organization [facility] Address [address] [place] [address] Phone Care Team Providers Care Outside Operator Name Role Phone Truong Colon MD Primary Care Provider +1- [phone] Encounter Details Date Type Department Care Team (Late Contact Info) Description 01/31/2024 Documentation Only [facility] [address] [place] [address] Kylie Gabriel [address] [place] [address] Social History Tobacco Use Types [...] Visit [facility] [address] [place] [address] Romero Jimenez MD [address] [place] [address] [place] [address] documented as of this encounter Visit Diagnoses Not on filedocumented in this encounter Care Teams Outside Operator Relationship Specialty Start Date End Date Truong Colon MD [address] [place] [address] PCP - General Internal Medicine 03/06/23 documented as of this encounter
--- OUTSIDE RECORDS SUMMARY | 2024-06-26 09:33 | XMS_ITS | Encounter Summary ---
Author Organization [facility] Address [address] [place] [address] Phone Care Team Providers Care Flotation Tender Name Role Phone Truong Colon MD Primary Care Provider +1- [phone] Encounter Details Date Type Department Care Team (Late st Contact Info) Description 01/23/2024 Telephone [facility] [place], [address] [place] [address] Rachel Garcia [address] [place] [address] Social History Tobacco Use Types [...] visit-- she had labs drawn yesterday a [facility] and I faxed over our order for add on. Please advise- thanks! documented in this encounter Plan of Treatment Upcoming Encounters Date Type Department Care Team (Late st Contact Info) Description 07/16/2024 3:45 PM EDT Office Visit [facility] [place], [address] [address] [address] Romero Jimenez MD [address] [facility] [place] [address] documented as of this encounter Visit Diagnoses Not on filedocumented in this encounter Care Teams Flotation Tender Relationship Specialty Start Date End Date Truong Colon MD [address] [place], [place] [id number] PCP - General Internal Medicine 03/06/23 documented as of this encounter
--- OUTSIDE RECORDS SUMMARY | 2024-06-26 09:33 | XMS_ITS | Encounter Summary ---
Author Organization [facility] Address [address] [place] [address] Phone Care Team Providers Care Pot Filler Name Role Phone Truong Colon MD Primary Care Provider +1- [phone] Encounter Details Date Type Department Care Team (Late Contact Info) Description 04/04/2024 Documentation Only [facility] [address] [place] [address] [place] [address] Social History Tobacco Use Types Packs/Day [...] Visit [facility] [address] [place] [address] Romero Jimenez MD [address] [place] [address] [place] [address] documented as of this encounter Visit Diagnoses Not on filedocumented in this encounter Care Teams Pot Filler Relationship Specialty Start Date End Date Truong Colon MD [address] [place] [address] PCP - General Internal Medicine 03/06/23 documented as of this encounter
--- OUTSIDE RECORDS SUMMARY | 2024-06-26 09:33 | XMS_ITS | Encounter Summary ---
Author Organization [facility] Address [address] [place] [address] Phone Care Team Providers Care Retail Advertising Sales Manager Name Role Phone Truong Colon MD Primary Care Provider +1- [phone] Encounter Details Date Type Department Care Team (Late st Contact Info) Description 04/14/2022 Documentation Only [facility] [address] [place] [address] Eligio Meza MD [address] [place] [address] [place] [address] Social History Tobacco Use Types [...] [facility] [address] [place] [address] Romero Jimenez MD [address] [facility] [place] [address] documented as of this encounter Visit Diagnoses Not on filedocumented in this encounter Care Teams Retail Advertising Sales Manager Relationship Specialty Start Date End Date Truong Colon MD [address] [place] [address] PCP - General Internal Medicine 03/06/23 documented as of this encounter
--- OUTSIDE RECORDS SUMMARY | 2024-06-26 09:33 | XMS_ITS | Encounter Summary ---
Author Organization [facility] Address [address] [place] [address] Phone Care Team Providers Care Agronomist Name Role Phone Truong Colon MD Primary Care Provider +1- [phone] Encounter Details Date Type Department Care Team (Late Contact Info) Description 06/03/2024 Documentation Only [facility] [address] [place] [address] Kylie Gabriel [address] [place] [address] Social History Tobacco Use Types [...] Visit [facility] [address] [place] [address] Romero Jimenez MD [address] [place] [address] [place] [address] documented as of this encounter Visit Diagnoses Not on filedocumented in this encounter Care Teams Agronomist Relationship Specialty Start Date End Date Truong Colon MD [address] [place] [address] PCP - General Internal Medicine 03/06/23 documented as of this encounter
--- OUTSIDE RECORDS SUMMARY | 2024-06-26 09:33 | XMS_ITS | Encounter Summary ---
Author Organization [facility] Address [address] [place] [address] Phone Care Team Providers Care Optical Goods Drilling Machine Operator Name Role Phone Truong Colon MD Primary Care Provider +1- [phone] Encounter Details Date Type Department Care Team (Late Contact Info) Description 04/10/2024 Documentation Only [facility] [address] [place] [address] Kylie Gabriel [address] [place] [address] Social History Tobacco Use Types [...] Visit [facility] [address] [place] [address] Romero Jimenez MD [address] [place] [address] [place] [address] documented as of this encounter Visit Diagnoses Not on filedocumented in this encounter Care Teams Optical Goods Drilling Machine Operator Relationship Specialty Start Date End Date Truong Colon MD [address] [place] [address] PCP - General Internal Medicine 03/06/23 documented as of this encounter
--- OUTSIDE RECORDS SUMMARY | 2024-06-26 09:33 | XMS_ITS | Encounter Summary ---
Author Organization [facility] Address [address] [place] [address] Phone Care Team Providers Care Freight Inspector Name Role Phone Truong Colon MD Primary Care Provider +1- [phone] Encounter Details Date Type Department Care Team (Late Contact Info) Description 04/11/2022 Documentation Only [facility] [address] [place] [address] Kylie Gabriel [address] [place] [address] Social History Tobacco Use Types [...] Visit [facility] [address] [place] [address] Romero Jimenez MD [address] [place] [address] [place] [address] documented as of this encounter Visit Diagnoses Not on filedocumented in this encounter Care Teams Freight Inspector Relationship Specialty Start Date End Date Truong Colon MD [address] [place] [address] PCP - General Internal Medicine 03/06/23 documented as of this encounter
--- OUTSIDE RECORDS SUMMARY | 2024-06-26 09:33 | XMS_ITS ---
Author Organization [facility] Address [address] [facility] [place] [address] Care Team Providers Care Liquor Bridge Operator Helper Name Role Phone Isaiah DURAN, Truong Primary Care Provider Boby Laguerre Unavailable [phone] Allergies Allergen (clinical drug ingredient) Drug/Non Drug [...] Ordered Date Performed Result Body Sit e 35389-IRGDGVU NAIL, 6 OR MORE 05/05/2024 N/A 74736-SJUA SKIN LESIONS, OVER 4 05/05/2024 N/A Encounters Encounter Location Date Provider Diagnosis [facility] [address] [address] 05/05/2024 Boby Champan Atherosclerosis of [place] artery of both lower extremities, with unspecified presence of clinical manifestation I70.203 ; Tinea unguium B35.1 ; Pain in right toe(s) M79.674 ; Pain in left toe(s) M79.675 ; Other hammer toe(s) (acquired), right foot M20.41 and Other hammer toe(s) (acquired), left foot M20.42 Assessments Encounter Date Diagnosis (ICD Code) Assessment Notes Treatment Notes Treatment Clinical Notes Section Notes 05/05/2024 Atherosclerosis of [place] artery of both lower extremities, with unspecified [...] days Pending Test Test Name Order Date 35961-ECZXQIH NAIL, 6 OR MORE 05/05/2024 94273-FCJC SKIN LESIONS, OVER 4 05/05/19 25 Next Appt Details Follow Up: 2 Months, Reason: Provider Name:Boby Chapman , 07/31/2024 02:00:00 PM, [address] [facility], [address], [place], [address], Procedure Notes * Category Sub-Category Detail Notes [...] use of a nail nipper and/or dremel-type rubber grinder, to a more viable healthy nail [...] to maintain effectiveness in symptomatic relief - 85686 Keratoma Treatment Parring or Cutting o f [...] instrumentation by the physician of record - 87080, Q8 Progress Notes * Tommie BLANCASOB:[birth year] (78 yo F)Acc No.[id number]:05/05/2024 Progress Note Patient:?Jacinda BLANCAS Provider:?Boby Chapman DPM :1945???Age:78 Y???Sex:Female D ate:05/05/2024 Address:[address] [place], [place] [address] Pcp:Truong Colon MD Subjective: * Chief Complaints: [...] by , , who serves as , Waste Recycler/Claims Support Specialist , additional Historian , and/who is physically present in exam room at time of visit.?ORIENTED:?person, place, and time.?FOOT EXAM:?Lower Extremity Neurological Exam performed:?Yes ?Visual exam of foot performed:?Yes ?Date?05/05/2024 ?Footwear Evaluation?Footwear Evaluation performed:?Yes??? Assessment: * Assessment: 1.?Tinea unguium - B35.1???2 .?Atherosclerosis of [place] artery of both lower extremities, with unspecified presence of clinical manifestation - I70.203 (Primary)???3.?Pain in right toe(s) - M79.674???4.?Pain in left toe(s) - M79.675 ??5.?Other hammer toe(s) (acquired), right foot - M20.41???Specify :Chronic problem, Worse (4),Rx Management (4)???6.?Other hammer toe(s) (acquired), left foot - M20.42???Specify :Chronic problem, Worse (4),Rx Management (4)??? Plan: * Treatment: 2.?Tinea unguium?Procedure: 27292-XHRADOK NAIL, 6 OR MORE 3.?Other hammer toe(s) [...] use of a nail nipper and/or dremel-type rubber grinder, to a more viable healthy nail [...] to maintain effectiveness in symptomatic relief - 87813.?Keratoma Treatment:?Parring or Cutting of Benign Hyperkeratotic Lesion(s)?(-57) [...] instrumentation by the physician of record - 50014, Q8.? * Procedure Codes:?81403 DEBRI DE NAIL, 6 OR MORE, Modifiers: XS 74309 TRIM SKIN LESIONS, OVER 4, Modifiers: XS [...] Chapman DPM Date:?2024 Generated for Yovanny toussaint/Leah/Lois on:?06/26/2024 09:32 AM EST History and Physical [...] by , , who serves as , Waste Recycler/Claims Support Specialist , additional Historian , and/who is physically [...]
--- OUTSIDE RECORDS SUMMARY | 2024-06-26 09:33 | XMS_ITS | Encounter Summary ---
Author Organization [facility], Address [address] [place] [address] Phone Care Team Providers Care Gear Repairer Name Role Phone Truong Colon MD Primary Care Provider +1- [phone] Encounter Details Date Type Department Care Team (Late st Contact Info) Description 01/23/2024 Documentation Only [facility], - Gloria [address] [place] [address] Jasmin Dumont [address] [place] [address] Social History Tobacco Use Types [...] Visit [facility], [address] [facility] [facility] [place] [address] Romero Jimenez MD [address] [facility] [place] [address] documented as of this encounter Visit Diagnoses Not on filedocumented in this encounter Care Teams Gear Repairer Relationship Specialty Start Date End Date Truong Colon MD [address] [place] [address] PCP - General Internal Medicine 03/06/23 documented as of this encounter
--- OUTSIDE RECORDS SUMMARY | 2024-06-26 09:33 | XMS_ITS | Encounter Summary ---
Author Organization [facility] Address [address] [place] [address] Phone Care Team Providers Care Councilman Name Role Phone Truong Colon MD Primary Care Provider +1- [phone] Encounter Details Date Type Department Care Team (Late st Contact Info) Description 05/31/2024 Office Communication [facility] [address] [place] [address] Deisi Wakefield RN [address] [facility] [place] [address] Social History Tobacco Use Types [...] RN - 05/31/2024 12:06 PM EST Does [facility] have standing orders for lab drawn for Jacinda? I did fax orders today. documented in this encounter Plan of Treatment Upcoming Encounters Date Type Department Care Team (Late st Contact Info) Description 07/16/2024 3:45 PM EDT Office Visit [facility], [address] [place] [address] Romero Jimenez MD [address] [facility] [place] [address] documented as of this encounter Visit Diagnoses Not on filedocumented in this encounter Care Teams Councilman Relationship Specialty Start Date End Date Truong Colon MD [address] [place] [address] [address] [place] [address] PCP - General Internal Medicine 03/06/23 documented as of this encounter
--- OUTSIDE RECORDS SUMMARY | 2024-06-26 09:33 | XMS_ITS | Encounter Summary ---
Author Organization [facility], Address [address] [place] [address] Phone Care Team Providers Care Toolroom Helper Name Role Phone Truong Colon MD Primary Care Provider +1- [phone] Reason for Visit * Reason Onset Date Comments reminder for labs 06/05/2024 Encounter Details Date Type Department Care Team (Late Contact Info) Description 06/05/2024 Telephone [facility] [address] [place] [address] Deisi Wakefield RN [address] [facility] [address] [place] [address] reminder for labs Social History [...] labs. Pt has standing orders at [facility]. Pt will go this week. documented in this encounter Plan of Treatment Upcoming Encounters Date Type Department Care Team (Late Contact Info) Description 07/16/2024 3:45 PM EDT Office Visit [facility] [place], [address] [facility] [address] [place] [address] Romero Jimenez MD [address] [facility] [place] [id number] documented as of this encounter Visit Diagnoses Not on filedocumented in this encounter Care Teams Toolroom Helper Relationship Specialty Start Date End Date Truong Colon MD [address] [place] [address] [address] [place] [address] PCP - General Internal Medicine 03/06/23 documented as of this encounter
--- OUTSIDE RECORDS SUMMARY | 2024-06-26 09:33 | XMS_ITS | Encounter Summary ---
Author Organization [facility] Address [address] [place] [address] Phone Care Team Providers Care Branch Service Representative Name Role Phone Truong Colon MD Primary Care Provider +1- [phone] Encounter Details Date Type Department Care Team (Late Contact Info) Description 10/29/2023 Documentation Only [facility] [address] [place] [address] Kylie Gabriel [address] [place] [address] Social History Tobacco Use Types [...] Visit [facility] [address] [place] [address] Romero Jimenez MD [address] [place] [address] [place] [address] documented as of this encounter Visit Diagnoses Not on filedocumented in this encounter Care Teams Branch Service Representative Relationship Specialty Start Date End Date Truong Colon MD [address] [place] [address] PCP - General Internal Medicine 03/06/23 documented as of this encounter
--- OUTSIDE RECORDS SUMMARY | 2024-06-26 09:33 | XMS_ITS | Encounter Summary ---
Author Organization [facility] Address [address] [place] [address] Phone Care Team Providers Care Plant Chief Name Role Phone Truong Colon MD Primary Care Provider +1- [phone] Encounter Details Date Type Department Care Team (Late st Contact Info) Description 11/09/2021 Documentation Only [facility] [address] [place] [address] Dimitris Suarez PA Social History [...] Visit [facility] [address] [place] [address] Romero Jimenez MD [address] [place] [address] [place] [address] documented as of this encounter Visit Diagnoses Not on filedocumented in this encounter Care Teams Plant Chief Relationship Specialty Start Date End Date Truong Colon MD [address] [place], [place] [id number] PCP - General Internal Medicine 03/06/23 documented as of this encounter
--- OUTSIDE RECORDS SUMMARY | 2024-06-26 09:33 | XMS_ITS | Patient Health Record ---
Author Organization [facility] [place] Address [address] [facility] [place] [address] Care Team Providers Care Clinical Laboratory Director Name Role Phone Isaiah DURAN, [place] Primary Care Provider Boby Laguerre Unavailable [phone] Allergies Allergen (clinical drug ingredient) Drug/Non Drug Allergy documented on EMR Reaction Allergy Type Onset Date Status sennosides, HALF-WAY Senna rash and machado Drug Allergy Active [...] Problem Acquired hammer toe of right foot ([id number] ) Other hammer toe(s) (acquired), right foot (M20.41) Active confirmed Response to treatment, Improvemen t Problem Acquired hammer toe of left foot ([id number] ) Other hammer toe(s) (acquired), left foot (M20.42) Active confirmed Response to treatment, Improvemen t Problem [id number] Atherosclerosis of hamilton artery of both lower extremities, with unspecified presence of clinical manifestation (I70.203) Active confirmed Vital Signs Blood pressure diastolic 77 mm Hg 05/05/2024 Height 5 ft 9in in 05/05/2024 Blood pressure systolic 126 mm Hg 05/05/2024 Weight 233 lbs 05/05/2024 BMI 34.4 kg/m2 05/05/2024 Procedures Procedure Date Ordered Date Performed Result Body Sit e 20502-HOQZPIJ NAIL, 6 OR MORE 06/27/2023 N/A 25738-Uuky Destruction, 1-14 06/27/2023 N/A 73679-Uiajjzgh Plate 06/27/2023 N/A 61570-Coytvkvq Plate Each Additional 06/27/2023 N/A 65636-OXBF SKIN LESIONS, OVER 4 06/27/2023 N/A 80566-JEVULHY NAIL, 6 OR MORE 08/30/2023 N/A 92091-Oeox Destruction, 1-14 08/30/2023 N/A 24049-Bczkzqwj Plate 08/30/2023 N/A 66549-Fhrgmmou Plate Each Additional 08/30/2023 N/A 92956-LJWU SKIN LESIONS, OVER 4 08/30/2023 N/A 48828-KUJCPIR NAIL, 6 OR MORE 11/08/2023 N/A 43242-Uvwp Destruction, 1-14 11/08/2023 N/A 15716-Gvwskkat Plate 11/08/2023 N/A 27291-Lkognivm Plate Each Additional 11/08/2023 N/A 74095-PGLT SKIN LESIONS, OVER 4 11/08/2023 N/A 14360-PAIPRDA NAIL, 6 OR MORE 01/24/2024 N/A 68527-Pabl Destruction, 1-14 01/24/2024 N/A 97607-WMPD SKIN LESIONS, OVER 4 01/24/2024 N/A 12108-PJMLJBI NAIL, 6 OR MORE 05/05/2024 N/A 50638-BAMT SKIN LESIONS, OVER 4 05/05/2024 N/A Encounters Encounter Location Date Provider Diagnosis [address] [address] 06/27/2023 Boby Chapman Atherosclerosis of hamilton artery of both lower extremities, with unspecified presence of clinical manifestation I70.203 ; Plantar wart B07.0 ; Tinea unguium B35.1 ; Pain in right toe(s) M79.674 ; Pain in left toe(s) M79.675 ; Ingrown nail L60.0 ; Left foot pain M79.672 ; Other hammer toe(s) (acquired), right foot M20.41 and Other hammer toe(s) (acquired), left foot M20.[address] [address] 08/30/2023 Boby Chapman Atherosclerosis of hamilton artery of both lower extremities, with unspecified presence of clinical manifestation I70.203 ; Plantar wart B07.0 ; Tinea unguium B35.1 ; Pain in right toe(s) M79.674 ; Pain in left toe(s) M79.675 ; Ingrown nail L60.0 and Left foot pain M79.[address] [address] 11/08/2023 Boby Chapman Atherosclerosis of hamilton artery of both lower extremities, with unspecified presence of clinical manifestation I70.203 ; Plantar wart B07.0 ; Tinea unguium B35.1 ; Pain in right toe(s) M79.674 ; Pain in left toe(s) M79.675 ; Ingrown nail L60.0 ; Left foot pain M79.672 and Xerosis of skin L85.[address] [address] 01/24/2024 Boby Chapman Atherosclerosis of hamilton artery of both lower extremities, with unspecified presence of clinical manifestation I70.203 ; Plantar wart B07.0 ; Tinea unguium B35.1 ; Pain in right toe(s) M79.674 ; Pain in left toe(s) M79.675 ; Left foot pain M79.672 and Xerosis of skin L85.[address] [address] 05/05/2024 Boby Chapman Atherosclerosis of hamilton artery of both lower extremities, with unspecified [...] wart (ICD-10 - B07.0) 06/27/2023 Atherosclerosis of hamilton artery of both lower extremities, with unspecified presence of clinical manifestation (ICD-10 - I70.203) 08/30/2023 Plantar wart (ICD-10 - B07.0) 08/30/2023 Atherosclerosis of hamilton artery of both lower extremities, with unspecified presence of clinical manifestation (ICD-10 - I70.203) 11/08/2023 Plantar wart (ICD-10 - B07.0) 11/08/2023 Atherosclerosis of hamilton artery of both lower extremities, with unspecified presence of clinical manifestation (ICD-10 - I70.203) 01/24/2024 Plantar wart (ICD-10 - B07.0) 01/24/2024 Atherosclerosis of hamilton artery of both lower extremities, with unspecified presence of clinical manifestation (ICD-10 - I70.203) 05/05/2024 Tinea unguium (ICD-10 - B35.1) 05/05/2024 Atherosclerosis of hamilton artery of both lower extremities, with unspecified [...] Treatment Pending Test Test Name Order Date 99397-RFSWVBU NAIL, 6 OR MORE 03/21/2017 76821-FBDEHUG NAIL, 6 OR MORE 05/30/2017 54565-ZMJYNGM NAIL, 6 OR MORE 08/06/2017 97433-XDYTHTY NAIL, 6 OR MORE 10/25/2017 67196-GLADDIW NAIL, 6 OR MORE 03/20/2018 92105-QNQXJNI NAIL, 6 OR MORE 06/13/2018 69125-AICLGZA NAIL, 6 OR MORE 01/07/2018 30045-WSCYOZK NAIL, 6 OR MORE 08/14/2018 55159-AVCJRCZ NAIL, 6 OR MORE 10/17/2018 95790-FNJKAGH NAIL, 6 OR MORE 01/16/2019 18899-EBNPUCQ NAIL, 6 OR MORE 04/03/2019 77540-PGMSXQQ NAIL, 6 OR MORE 06/16/2019 47792-TPKXMKT NAIL, 6 OR MORE 08/27/2019 25244-CMPESZZ NAIL, 6 OR MORE 12/18/2019 75639-VBWDRJK NAIL, 6 OR MORE 05/06/2020 44241-UUOZEZM NAIL, 6 OR MORE 07/15/2020 42312-FYVMOVN NAIL, 6 OR MORE 09/29/2020 65169-UYFVKEX NAIL, 6 OR MORE 12/02/2020 80828-WVJDOQV NAIL, 6 OR MORE 02/17/2021 29056-AVXHSSN NAIL, 6 OR MORE 06/16/2021 44327-OEIOLNN NAIL, 6 OR MORE 08/29/2021 26222-IIVVJDB NAIL, 6 OR MORE 11/10/2021 20586-PJLMGHL NAIL, 6 OR MORE 01/19/2022 48433-LPSATGU NAIL, 6 OR MORE 04/05/2022 08274-BXRODZR NAIL, 6 OR MORE 06/15/2022 27751-FQPLYZP NAIL, 6 OR MORE 08/24/2022 12106-EOGDKQY NAIL, 6 OR MORE 11/16/2022 22632-UOKIAON NAIL, 6 OR MORE 01/25/2023 83198-YPNFIIO NAIL, 6 OR MORE 04/11/2023 51134-MXVOJYH NAIL, 6 OR MORE 06/27/2023 00773-VXWLUJA NAIL, 6 OR MORE 08/30/2023 47128-CPERNPL NAIL, 6 OR MORE 11/08/2023 49119-CHXWTRI NAIL, 6 OR MORE 01/24/2024 23206-HCLFITJ NAIL, 6 OR MORE 05/05/2024 83980-HLOEMHR NAIL, 1-5 11/01/2016 45761-UFKFZDR NAIL, -5 01/03/2017 29605-JUCTPTD NAIL, -5 11/15/2015 19919-OGJRHYM NAIL, -5 01/24/2016 57418-SNTKEOW NAIL, -5 04/05/2016 57476-LECWUGV NAIL, -5 06/14/2016 94398-QHZZYJX NAIL, -08/23/2016 53312-Gzmu Destruction, -14 11/01/2016 33672-Uuwg Destruction, -14 01/03/2017 17172-Jpff Destruction, -03/21/2017 13171-Jwvm Destruction, -05/30/2017 35204-Pcyc Destruction, 05-0608/06/2017 12096-Zoqr Destruction, 05-0605/06/2020 07938-Bszd Destruction, 05-0612/18/2019 43539-Ejld Destruction, 05-0608/27/2019 16931-Inpb Destruction, 05-0606/16/2019 81444-Enyn Destruction, 05-0604/03/2019 73045-Yslc Destruction, 05-0601/16/2019 85151-Bdpz Destruction, 05-0610/17/2018 82515-Hgwk Destruction, 05-0608/14/2018 80763-Nllc Destruction, 05-0606/13/2018 90040-Drnm Destruction, 05-0610/25/2017 60156-Gtdy Destruction, 05-0601/07/2018 36812-Sggj Destruction, 05-0608/30/2023 80897-Iprf Destruction, 05-0606/27/2023 98291-Ipnx Destruction, 05-0604/11/2023 93884-Ohoh Destruction, 05-0601/25/2023 80519-Ipfq Destruction, 05-0611/16/2022 11680-Vlxo Destruction, 05-0608/24/2022 92980-Vghp Destruction, 05-0606/15/2022 40282-Xhur Destruction, 05-0604/05/2022 78604-Mnlm Destruction, 05-0601/19/2022 47566-Fwpb Destruction, 05-0606/16/2021 86923-Hdfo Destruction, 05-0603/20/2018 76535-Jhqv Destruction, 05-0611/10/2021 57730-Ktls Destruction, 05-0608/29/2021 77642-Caav Destruction, 05-0602/17/2021 28167-Rpex Destruction, 05-0612/02/2020 60559-Xwhs Destruction, 05-0609/29/2020 17309-Hicj Destruction, 05-0607/15/2020 64253-Jqcf Destruction, 05-0601/24/2024 26498-Srvp Destruction, 05-0611/08/2023 75549-Etkjmcjd Plate 11/08/2023 56508-Eclhkdry Plate 09/29/2020 98093-Gixdvtfu Plate 12/02/2020 86346-Tpxdsetb Plate 02/17/2021 76035-Fpyerzgs Plate 06/16/2021 96852-Acgaqcxw Plate 08/29/2021 87316-Dtudfsmb Plate 11/10/2021 84635-Zflkhfso Plate 01/19/2022 22630-Vspdihgd Plate 04/05/2022 39964-Fusaagzt Plate 06/15/2022 97873-Bjeuugkx Plate 08/24/2022 44871-Mhsbdvcn Plate 11/16/2022 41376-Obibftmj Plate 01/25/2023 77720-Hktsjmbe Plate 04/11/2023 92964-Oyvgivhf Plate 06/27/2023 78714-Lddsnbki Plate 08/30/2023 07216-Fhbhakvv Plate 12/18/2019 16214-Vcxuhmde Plate 05/06/2020 95203-Sqqyuldx Plate 07/15/2020 09274-Haticygn Plate 11/01/2016 37527-Ldkstkhg Plate Each Additional 12/2023 73169-Paggqpiy Plate Each Additional 09/2023 81072-Vpunvxmi Plate Each Additional 02704-Jwtqqrqm Plate Each Additional 08/2022 98250-Fygmzvbc Plate Each Additional 41738-Feigsmmc Plate Each Additional 07/2022 43705-Kbxxymis Plate Each Additional 73605-Jldjvlsc Plate Each Additional 16994-Sdscgmdf Plate Each Additional 49329-Ofeowmdg Plate Each Additional 85581-RQAK SKIN LESIONS, OVER 4 11/08/19 01855-KHWX SKIN LESIONS, OVER 4 01/24/20 97223-SSGD SKIN LESIONS, OVER 4 05/05/19 73225-ZMTQ SKIN LESIONS, OVER 4 06/16/19 52634-LYEK SKIN LESIONS, OVER 4 01/20/20 49037-FBKN SKIN LESIONS, OVER 4 11/11/19 39186-OPUN SKIN LESIONS, OVER 4 08/30/19 29321-JPUG SKIN LESIONS, OVER 4 02/18/20 10499-XNGZ SKIN LESIONS, OVER 4 12/03/19 00266-EVZP SKIN LESIONS, OVER 4 09/30/19 21 47643-GYEV SKIN LESIONS, OVER 4 07/16/19 21 85219-IEHD SKIN LESIONS, OVER 4 04/05/20 22 35691-EBPX SKIN LESIONS, OVER 4 06/15/19 23 37366-HBRJ SKIN LESIONS, OVER 4 08/25/19 11894-NLMW SKIN LESIONS, OVER 4 11/17/19 23 43257-TWVA SKIN LESIONS, OVER 4 01/26/20 26393-GHQB SKIN LESIONS, OVER 4 04/11/20 23 38342-JTUE SKIN LESIONS, OVER 4 06/27/19 24 95316-OAHP SKIN LESIONS, OVER 4 08/30/19 24 26815-PYWA SKIN LESIONS, OVER 4 03/21/20 17 44460-YYHQ SKIN LESIONS, OVER 4 01/04/20 17 27765-JAMM SKIN LESIONS, OVER 4 10/26/19 18 16940-UJII SKIN LESIONS, OVER 4 08/07/19 18 82299-EWPA SKIN LESIONS, OVER 4 05/30/19 18 15121-RVCB SKIN LESIONS, OVER 4 11/02/19 17 80218-MHEA SKIN LESIONS, OVER 4 06/14/19 17 25930-VYPN SKIN LESIONS, OVER 4 04/05/20 16 78030-UHIA SKIN LESIONS, OVER 4 08/24/19 17 56418-HCJR SKIN LESIONS, OVER 4 01/24/20 16 81811-BATB SKIN LESIONS, OVER 4 11/15/19 16 01029-SFAI SKIN LESIONS, OVER 4 08/16/19 16 35878-LXLL SKIN LESIONS, OVER 4 05/06/19 21 63349-VWIQ SKIN LESIONS, OVER 4 12/18/19 20 81386-DGOC SKIN LESIONS, OVER 4 08/27/19 20 10373-YXAO SKIN LESIONS, OVER 4 04/03/20 19 34504-PCIG SKIN LESIONS, OVER 4 06/16/19 20 15737-ZVFJ SKIN LESIONS, OVER 4 01/08/20 18 51595-RCGQ SKIN LESIONS, OVER 4 06/13/19 19 18879-HMUY SKIN LESIONS, OVER 4 08/15/19 19 14626-CKZD SKIN LESIONS, OVER 4 03/20/20 18 77784-VCHY SKIN LESIONS, OVER 4 10/18/19 19 24095-NCUX SKIN LESIONS, OVER 4 01/17/20 19 O5452-VOMXORPO DYSTROPHIC NAILS ANY # A7701-QGLLPAWQ DYSTROPHIC NAILS ANY # Y1534-JARCMVZC DYSTROPHIC NAILS ANY # R7864-LLUHGYNW DYSTROPHIC NAILS ANY # W4503-RJDKGRIN DYSTROPHIC NAILS ANY # J0788-JMWOYPAC DYSTROPHIC NAILS ANY # T5198-YELIOQTZ DYSTROPHIC NAILS ANY # M6306-RIGWLNNX DYSTROPHIC NAILS ANY # Next Appt Details Provider Name:Boby Gwendolyn Chapman , 07/31/2024 02:00:00 PM, [address] [facility], [address], [place], [address], Insurance Providers Payer Name Payer Address Payer Phone Subscriber Number Group Number Insured Name Patient Relationship to Insured Coverage Start Date Coverage End Date [facility] [employer] Claims [address] [place] [id number] Jacinda Benavidez Self - patient is the insured Medical (General) History Medical History History ICD Code Anemia Anxiety Arthritis Back,Hip,and Knee pain Cataracts High blood pressure Liver disease Reflux Thyroid disorder Surgical History Surgery Date(Month/Year) gall bladder 12/11/2014 Unspecified Right Hand SX 03/13/17
--- OUTSIDE RECORDS SUMMARY | 2024-06-26 09:33 | XMS_ITS | Encounter Summary ---
Author Organization [facility] Address [address] [place] [address] Phone Care Team Providers Care Communications Superintendent Name Role Phone Truong Colon MD Primary Care Provider +1- [phone] Encounter Details Date Type Department Care Team (Late Contact Info) Description 04/10/2024 Documentation Only [facility] [address] [place] [address] Kylie Gabriel [address] [place] [address] Social History Tobacco Use Types [...] Visit [facility] [address] [place] [address] Romero Jimenez MD [address] [place] [address] [place] [address] documented as of this encounter Visit Diagnoses Not on filedocumented in this encounter Care Teams Communications Superintendent Relationship Specialty Start Date End Date Truong Colon MD [address] [place] [address] PCP - General Internal Medicine 03/06/23 documented as of this encounter
--- OUTSIDE RECORDS SUMMARY | 2024-06-26 09:33 | XMS_ITS | Encounter Summary ---
Author Organization [facility] Address [address] [place] [address] Phone Care Team Providers Care Top Lift Scourer Name Role Phone Truong Colon MD Primary Care Provider +1- [phone] Encounter Details Date Type Department Care Team (Late st Contact Info) Description 01/21/2024 Orders Only [facility] [address] [place] [address] Dimitris Suarez PA Stage 3a [...] Visit [facility] [address] [place] [address] Romero Jimenez MD [address] [place] [address] [place] [address] documented as of this encounter Visit Diagnoses Diagnosis Stage 3a chronic kidney disease (HCC) Essential hypertension Peripheral vascular disease (HCC) Peripheral vascular disease Renal osteodystrophy documented in this encounter Care Teams Top Lift Scourer Relationship Specialty Start Date End Date Truong Colon MD [address] [place] [address] PCP - General Internal Medicine 03/06/23 documented as of this encounter
--- OUTSIDE RECORDS SUMMARY | 2024-06-26 09:33 | XMS_ITS | Encounter Summary ---
Author Organization [facility] Address [address] [place] [address] Phone Care Team Providers Care Button Puncher Name Role Phone Truong Colon MD Primary Care Provider +1- [phone] Encounter Details Date Type Department Care Team (Late Contact Info) Description 04/24/2024 Documentation Only [facility] [address] [place] [address] Kylie Gabriel [address] [place] [address] Social History Tobacco Use Types [...] [facility] [address] [place] [address] Romero Jimenez MD [address] [place] [address] [place] [address] documented as of this encounter Visit Diagnoses Not on filedocumented in this encounter Care Teams Button Puncher Relationship Specialty Start Date End Date Truong Colon MD [address] [place] [address] PCP - General Internal Medicine 03/06/23 documented as of this encounter
--- OUTSIDE RECORDS SUMMARY | 2024-06-26 09:33 | XMS_ITS | Encounter Summary ---
Author Organization [facility] Address [address] [place] [address] Phone Care Team Providers Care Guide Dog Instructor Name Role Phone Truong Colon MD Primary Care Provider +1- [phone] Encounter Details Date Type Department Care Team (Late Contact Info) Description 05/04/2022 Documentation Only [facility] [address] [place] [address] Kylie Gabriel [address] [place] [address] Social History Tobacco Use Types [...] Visit [facility] [address] [place] [address] Romero Jimenez MD [address] [place] [address] [place] [address] documented as of this encounter Visit Diagnoses Not on filedocumented in this encounter Care Teams Guide Dog Instructor Relationship Specialty Start Date End Date Truong Colon MD [address] [place] [address] PCP - General Internal Medicine 03/06/23 documented as of this encounter
--- OUTSIDE RECORDS SUMMARY | 2024-06-26 09:33 | XMS_ITS | Encounter Summary ---
Author Organization [facility] Address [address] [place] [address] Phone Care Team Providers Care Tub Wash Operator Name Role Phone Truong Colon MD Primary Care Provider +1- [phone] Encounter Details Date Type Department Care Team (Late Contact Info) Description 10/26/2023 Documentation Only [facility] [address] [place] [address] Kylie Gabriel [address] [place] [address] Social History Tobacco Use Types [...] Visit [facility] [address] [place] [address] Romero Jimenez MD [address] [place] [address] [place] [address] documented as of this encounter Visit Diagnoses Not on filedocumented in this encounter Care Teams Tub Wash Operator Relationship Specialty Start Date End Date Truong Colon MD [address] [place] [address] PCP - General Internal Medicine 03/06/23 documented as of this encounter
--- OUTSIDE RECORDS SUMMARY | 2024-06-26 09:33 | XMS_ITS | Encounter Summary ---
Author Organization [facility] [place], Address [address] [place] [address] Phone Care Team Providers Care Biofuels Technology Manager Name Role Phone Truong Colon MD Primary Care Provider +1- [phone] Encounter Details Date Type Department Care Team (Late st Contact Info) Description 05/31/2024 Telephone [facility] [address] [place] [address] Deisi Wakefield RN [address] [place] [address] Social History Tobacco Use Types [...] get labs drawn. Lab orders faxed to [facility]. documented in this encounter Plan of Treatment Upcoming Encounters Date Type Department Care Team (Late st Contact Info) Description 07/16/2024 3:45 PM EDT Office Visit [facility], [address] [place] [address] Romero Jimenez MD [address] [place] [address] documented as of this encounter Visit Diagnoses Not on filedocumented in this encounter Care Teams Biofuels Technology Manager Relationship Specialty Start Date End Date Truong Colon MD [address] [place] [address] [address] [place], [place] [id number] PCP - General Internal Medicine 03/06/23 documented as of this encounter
--- OUTSIDE RECORDS SUMMARY | 2024-06-26 09:34 | XMS_ITS | Clinical Summary ---
Author Organization [facility], Address [address] [place] [address] [place] [address] Phone Care Team Providers Care Assembly Line Leader Name Role Phone Truong Colon MD Primary Care Provider +1- [phone] Allergies Active Allergy Reactions Criticality Noted Date [...] Only [facility] [address] [place] [address] Kylie Gabriel Anemia in chronic kidney disease; Stage 3b chronic kidney disease (HCC); Iron deficiency anemia, not otherwise specified 06/05/2024 Telephone [facility] [address] [place] [address] Deisi [place], RN reminder for labs 06/03/2024 Documentation Only [facility] [address] [place] [address] HarveyKylie johnson 05/31/2024 Office Communication [facility] [address] [place] [address] Deisi Wakefield, ROGELIO 05/31/2024 Telephone [facility] [address] [place] [address] Deisi Wakefield, ROGELIO 05/27/2024 Documentation Only [facility] [address] [place] [address] HarveyKylie johnson 05/16/2024 Orders Only [facility] [address] [place] [address] Kylie Gabriel Anemia in chronic kidney disease; Stage 3b chronic kidney disease (HCC); Iron deficiency anemia, not otherwise specified 05/11/2024 Refill [facility] [address] [place] [address] Eligio Meza MD 04/29/2024 Documentation Only [facility] [address] [place] [place] [address] Britt Sol 04/24/2024 Documentation Only [facility] [address] [place] [address] HarveyKylie johnson 04/21/2024 Telephone [facility] [address] [place] [address] Deisi Wakefield, RN [facility] trying to schedule Retacrit injections 04/10/2024 Documentation Only [facility] [address] [place] [place] [address] HarveyKylie johnson 04/10/2024 Documentation Only [facility] [address] [place] [address] Kylie Gabriel 04/10/2024 Documentation Only [facility] [address] [place] [address] Kylie Gabriel 04/09/2024 Office Communication [facility] - [address] [place] [address] Deisi Wake[place], ROGELIO 04/04/2024 Documentation Only [facility] [address] [place] [address] Jasmin Dumont 04/04/2024 Office Communication [facility] [address] [place] [address] Kylie Garbiel 04/03/2024 Office Communication [facility] [address] [place] [address] Jasmin Dumont from Last 3 Months [...] Visit [facility], [address] [place] [address] Romero Jimenez MD [address] [facility] [place] [phone] Health Maintenance Due Date Last Done Comments [...] Phone Billing Address Personal/Family Self [address] [facility] DUAL SNP ([id number]) [address] Care Teams Assembly Line Leader Relationship Specialty Start Date End Date Truong Colon MD [address] [place] [address] PCP - General Internal Medicine 03/06/23
--- OUTSIDE RECORDS SUMMARY | 2024-06-26 09:34 | XMS_ITS | Encounter Summary ---
Author Organization [facility] Address [address] [place] [address] Phone Care Team Providers Care Site Acquisition Specialist Name Role Phone Truong Colon MD Primary Care Provider +1- [phone] Encounter Details Date Type Department Care Team (Late st Contact Info) Description 06/13/2024 Orders Only [facility] [address] [place] [address] Kylie Gabriel [address] [place] [address] Anemia in chronic kidney disease; [...] [facility] [address] [place] [address] Romero Jimenez MD [address] [place] [address] [place] [address] documented as of this encounter Visit Diagnoses Diagnosis Anemia in chronic kidney disease Stage 3b chronic kidney disease (HCC) Iron deficiency anemia, not otherwise specified documented in this encounter Care Teams Site Acquisition Specialist Relationship Specialty Start Date End Date Truong Colon MD [address] [place] [address] PCP - General Internal Medicine 03/06/23 documented as of this encounter
--- OUTSIDE RECORDS SUMMARY | 2024-06-26 09:34 | XMS_ITS ---
Author Organization [facility], Address [address] [place] [address] [place] [address] Phone Care Team Providers Care Laundry Machine Operator Name Role Phone Truong Colon MD Primary Care Provider +1- [phone] Active Problems Problem Noted Date Diagnosed Date [...] treatments are documented for this patient in [facility]. Treatments may have been administered in another [...]
--- OUTSIDE RECORDS SUMMARY | 2024-06-26 09:34 | XMS_ITS | Encounter Summary ---
Author Organization [facility] Address [address] [place] [address] Phone Care Team Providers Care Box Shook Patcher Name Role Phone Truong Colon MD Primary Care Provider +1- [phone] Encounter Details Date Type Department Care Team (Late Contact Info) Description 10/26/2023 Documentation Only [facility] [address] [place] [address] Kylie Gabriel [address] [place] [address] Social History Tobacco Use Types [...] [facility] [address] [place] [address] Romero Jimenez MD [address] [place] [address] [place] [address] documented as of this encounter Visit Diagnoses Not on filedocumented in this encounter Care Teams Box Shook Patcher Relationship Specialty Start Date End Date Truong Colon MD [address] [place] [address] PCP - General Internal Medicine 03/06/23 documented as of this encounter
--- OUTSIDE RECORDS SUMMARY | 2024-06-26 09:34 | XMS_ITS ---
Author Organization [facility] Jaylan sampson Rittman Address [address] [place] [address] Care Team Providers Care Team Primary Care Physician Name Role Phone Isaiah DURAN, [place] Primary Care Provider Boby Laguerre Unavailable [phone] Allergies Allergen (clinical drug ingredient) Drug/Non Drug Allergy documented on EMR Reaction Allergy Type Onset Date Status Senna rash and machado Drug Allergy Ac tive Penicillin rash Drug Allergy Active REASON FOR [...] Ordered Date Performed Result Body Sit e 68948-OSZUJHI NAIL, 6 OR MORE 11/08/2023 N/A 89275-Pusp Destruction, 1-14 11/08/2023 N/A 04015-Zxsfvgms Plate 11/08/2023 N/A 42963-Qezoiyvt Plate Each Additional 11/08/2023 N/A 90430-IHMI SKIN LESIONS, OVER 4 11/08/2023 N/A Encounters Encounter Location Date Provider Diagnosis [facility] [address] [place] [address] 11/08/2023 Boby Chapman Atherosclerosis of muscogee artery of [...] Clinical Notes Section Notes 11/08/2023 Atherosclerosis of muscogee artery of both lower [...] days Pending Test Test Name Order Date 08321-EMCUPKF NAIL, 6 OR MORE 11/08/2023 99116-Cswx Destruction, 1-14 11/08/2023 28176-Tbiqlznm Plate 11/08/2023 84704-Ogeeuikt Plate Each Additional 35634-ZWZA SKIN LESIONS, OVER 4 11/08/19 24 Next Appt Details Follow Up: 2 Months, Reason: Provider Name:Boby Chapman , 07/31/2024 02:00:00 PM, [address], [address], [place], [address], Procedure Notes * Category Sub-Category Detail Notes Wart Treatment Procedure Verrucae(s) were debrided to pin-point bleeding margins with sterile surgical blade, silver nitrate chemocautery applied, recomm. immune-boosting meds such as zinc, recomm. follow up with topical chemosurgical agents, Pt STILL defers any other forms of tx (35815), CONT, recomm. Wartstick 40% Salicylic acid application [...] and future surgical procedures to prevent recurrence (29565/32), CIRCULATION: Pt was advised as to the [...] as necessary. Patient chooses, no pharmaceutical tx (86731) Keratoma Treatment Parring or Cutting o f Benign Hyperkeratotic Lesion(s) 20609 ( >4 Lesions) - The Benign hyperkeratotic lesions, as described above were pared, and/or cut utilizing a sterile #15 blade, tissue nippers, and/or dremel, Q8 Progress Notes * Tommie BLANCASOB:[birth year] (78 yo F)Acc No.[id number]:11/08/2023 Progress Note Patient:?Jacinda Blancas Provider:?Boby Chapman DPM :1945???Age:78 Y???Sex:Female D ate:11/08/2023 Address:[address] [place], [place] [address] Pcp:Turong Colon MD Subjective: * Chief Complaints: * [...] Management (4)? 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 Start [...] as necessary. Patient chooses, no pharmaceutical tx (29372).?Keratoma Treatment:?Parring or Cutting of Benign Hyperkeratotic Lesion(s)?68334 ( >4 Lesions) - The Benign hyperkeratotic [...] and future surgical procedures to prevent recurrence (51714/32), CIRCULATION: Pt was advised as to the [...] STILL defers any other forms of tx (77487), CONT, recomm. Wartstick 40% Salicylic acid application under occlusion as directed, CIRCULATION: Any more invasive procedure to wart deferred due to circulation risk.? * Procedure Codes:?45715 DEBRI DE NAIL, 6 OR MORE, Modifiers: XS 75678 Avulsion Plate, Modifiers: XS , [id number] Wart Destruction, 1-14, Modifiers: XS 13986 Avulsion Plate Each Additional, Modifiers: XS , [id number] TRIM SKIN LESIONS, OVER 4, Modifiers: XS [...] Chapman DPM Date:?2023 Generated for Yovanny toussaint/Leah/Lois on:?06/26/2024 09:33 AM EST History and Physical Notes * [...]
--- OUTSIDE RECORDS SUMMARY | 2024-06-26 09:34 | XMS_ITS | Clinical Summary ---
Author Organization [facility] Address [address] [place] [address] Phone Care Team Providers Care Educational Aide Name Role Phone Truong Colon MD Primary Care Provider [phone] Allergies Active Allergy Reactions Criticality Noted Date [...] Type Department Care Team Description 06/09/2024 Telephone [facility] Hematology Oncology [address] [place] [address] Jlilian-Jennifer Gonzalez MD from Last 3 Months Surgical [...] AM EDT Appointment [facility] [address] [place] [phone] 10/02/2024 11:00 AM EDT Office Visit [facility] Hematology Oncology [address] [place] [phone] Jennifer Ca MD [address] [place] [phone] Health Maintenance Due Date Last Done Comments [...] spine and hips were performed on a TIME PLUS Q/Rong360 fan beam bone densitometer. ? Bone mineral [...] spine and hips were performed on a TIME PLUS Q/Rong360fan beam bone densitometer. Bone mineral density measurements [...] Most Recently Relevant to Health Maintenance Insurance [facility] Member Subscriber Plan / Payer (Ef fective 2024-Present) Name:Yonny Jacinda Relation to Subscriber:Spouse Name:YONNYDANIELITOJACINDA Date of :1945 (Home) Address: [address] [place] [address] Payer ID:[id number] Group ID:[id number] Type:Not on file Address: [place] [address] [place] [address] Care Teams Educational Aide Relationship Specialty Start Date End Date Truong Colon MD [address] [place] [address] [place] [address] PCP - General 05/19/22
--- OUTSIDE RECORDS SUMMARY | 2024-06-26 09:34 | XMS_ITS | Encounter Summary ---
Author Organization [facility] Address [address] [place] [address] Phone Care Team Providers Care Sales Representative Supervisor Name Role Phone Truong Colon MD Primary Care Provider +1- [phone] Encounter Details Date Type Department Care Team (Late Contact Info) Description 04/29/2024 Documentation Only [facility] [address] [place] [address] Britt Sol [address] [place] [address] Social History Tobacco Use Types [...] Visit [facility] [address] [place] [address] Romero Jimenez MD [address] [place] [address] [place] [address] documented as of this encounter Visit Diagnoses Not on filedocumented in this encounter Care Teams Sales Representative Supervisor Relationship Specialty Start Date End Date Truong Colon MD [address] [place] [address] PCP - General Internal Medicine 03/06/23 documented as of this encounter
== END 2024-06-26 09:23 | disposition home or self-care (01) ==
LOC: HO.HWS 08:50
PROVIDERS: PCP Internal Medicine; Visit Provider Obstetrics & Gynecology
DX: M85.80 Other specified disorders of bone density and structure, unspecified site (principal)
CPT/HCPCS: 99213

== ENCOUNTER → 2024-06-26 08:50 | Outpatient (BNVA) | payer OTHER, SELFPAY | PROVIDERS: PCP Internal Medicine; Visit Provider Obstetrics & Gynecology | DX: M85.80 Other specified disorders of bone density and structure, unspecified site (principal) | CPT/HCPCS: 99212 ==

== ENCOUNTER 2024-08-01 11:32 | Outpatient (AMB) | payer OTHER, SELFPAY ==
--- NOTE | 2024-08-01 11:40 | MHC.OFFVIS ---
Vital Signs 08/01/24 11:46 Height 5 ft 10 in BP 150/67 H Blood Pressure Location Lt brachial Position Sitting Respiration 16 Pulse 88 Pulse Source Pulse Oximeter Pulse Oximetry (%) 97 Oxygen Delivery Method Room Air Intake Visit Reasons: FU back pain radiating to her legs Bindery Operator Required: Yes Bindery Operator Services: Bindery Operator Present Bindery Operator Name: [id number] Allergies Penicillins [PENICILLINS] Allergy (Intermediate, Verified 08/01/24 11:48) rash senna Allergy (Intermediate, Verified 08/01/24 11:48) rash Medication List - Last Reconciled 08/01/24 by Sondra Ewing LPN amlodipine 5 mg PO DAILY 90 days bisacodyl 5 mg PO BEDTIME 90 days calcitriol 1 mcg PO WE@1645 cane As directed - use when walking carvedilol 12.5 mg PO BID 90 days [Commode As directed] [DISPOSABLE BED PADS Use as directed ONCE A DAY] [DISPOSABLE GLOVES - LARGE (1 box/month) Use as directed] docusate sodium 100 mg PO DAILY PRN [FEMININE PADS As directed] hydroxyzine HCl 25 mg PO BID PRN levothyroxine 125 mcg PO DAILY@0600 [MEDICATED INCONTINENCE WIPES As directed] multivitamin 1 tab PO DAILY omeprazole 40 mg PO DAILY@0630 pregabalin 50 mg PO BEDTIME 90 days [ROLLATOR As directed] [ROLLATOR As directed] HPI HPI FU back pain radiating to her legs: Details: History of Present Illness The patient is an 78-year-old female presenting with chronic hip and leg pain. The pain originates in the right hip and radiates down the leg, impacting her ability to sleep and necessitating the use of a walker due to severe pain when standing or walking. An injection in January previously provided only brief relief. The symptoms are indicative of right lumbar radiculopathy and existing MRI findings from 2020 showed moderate to severe spinal stenosis at the L2-3 level. The patient has not had success with a spinal cord stimulator trial due to unresolved approval issues following a psychological assessment. She expresses difficulty tolerating a closed MRI and requires further assessment with an open MRI to reassess any progression of her spinal condition. Pain Description - Onset: Chronic; initially treated with injections in January with minimal relief. - Quality: Persistent severe pain. - Primary Location: Right hip. - Radiation: Down the entire right leg. - Exacerbating Factors: Standing, walking. - Relieving Factors: None identified; previous injection offered three days of relief. - Interference: Impairs sleep strongly; requires use of a walker. Physical Exam - Appears afebrile. - Alert and oriented. - Mood and affect appropriate. - Follows and participates in conversation appropriately. - Respiratory effort is unlabored. - Able to transition from sit to stand unassisted. - Ambulates with bilaterally normal heel strike and toe off. - Able to stand and walk on toes and heels. Results - MRI (2020): Moderate to severe spinal stenosis at L2-3. Pain Management - Affect: Pain severely impacts sleep; causes weakness and need for a walker. - Analgesia: Previous injection provided only brief relief. - Adverse Effects: Not specified. - Activities of Daily Living: Impaired due to severe pain and leg weakness; requires use of a walker. - Aberrant Drug Related Behaviors: None mentioned. [facility] Medical History (Updated 06/26/24 @ 09:16 by Miguel Amin MD) Ambulates with cane Difficulty swallowing Osteoarthritis of right knee BPV (benign positional vertigo) Gait instability Cervicogenic headache Cervicalgia Vertigo Chronic kidney disease, stage III (moderate) Obesity (BMI 30-39.9) Gastritis Benign essential hypertension GERD without esophagitis Acquired hypothyroidism Constipation Lumbar spondylosis Post laminectomy syndrome Connective tissue disease Interstitial lung disease Osteopenia PAC (premature atrial contraction) Sjogrens syndrome Hypothyroid Breast cancer Raynauds disease SAMARA positive Surgical History 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) Hx of colonoscopy Hx of tubal ligation H/O varicose vein stripping History of cataract surgery H/O lumpectomy Hx of cholecystectomy History of back surgery Family History Father Emphysema of lung Cancer Brother Emphysema of lung Mother Bone cancer Son PONV (postoperative nausea and vomiting) Other Arthritis Social History Household Members: Significant Other and Children Housing: Apartment Are you a primary campground caretaker to a significant other at home: No Do you presently have visiting nurse or other home services: No Alcohol intake: former Comment: pt reports this is her baseline pain Patient Tobacco Use Status: Never used Tobacco e-Cigarette/Vaping Use: Never Used Second Hand Smoke Exposure: No service: No Current occupational status: retired Cognitive needs: No Hearing needs: No Vision needs: Yes (Glasses) Physical Exam Vital Signs: Last Vital Signs Pulse 88 08/01/24 11:46 Resp 16 08/01/24 11:46 BP 150/67 H 08/01/24 11:46 Pulse Ox 97 08/01/24 11:46 Oxygen Delivery Method Room Air 08/01/24 11:46 Assessment & Plan Assessment & Plan (1) Lumbar radiculopathy: Code(s): M54.16 - Radiculopathy, lumbar region Category: Medical Plan Plan An open MRI will be scheduled to further assess the spinal stenosis at the L2-3 and the progression of her lumbar condition. Following the MRI, the patient will be referred to a surgeon to explore surgical options such as decompression surgery. If surgery does not alleviate the symptoms, reconsideration for a spinal cord stimulator might be necessary. We will ensure all options are thoroughly considered to optimize her care plan, alleviating her persistent pain symptoms. Patient was informed and verbally consented to the use of an ambient scribe for clinic note documentation during this visit. Discussion Notes During this visit, we discussed the patient?s ongoing severe pain and the inadequate relief from previous interventions, including injections and consideration of a spinal cord stimulator. I outlined the benefits and rationale for performing an updated open MRI to evaluate the progression of her lumbar stenosis. We reviewed the possibility of surgical intervention and its potential benefits versus risks. Surgical decompression was proposed as a likely course of action post-MRI. The necessity for follow-up post-imaging and the assessment for potential surgery was also communicated. The patient understands and agrees to the outlined steps. Patient Instructions - Await scheduling for an open MRI to evaluate spinal stenosis. - Anticipate a call to schedule an MRI in [place]. - Inform the surgeon?s office that an MRI is pending and book any potential consultations post-MRI completion. - Use a walker to aid mobility and reduce pain while awaiting further evaluation. - Contact the office or seek care if pain worsens significantly or new symptoms arise. Orders: Referrals Neurosurgery Referral M54.16 - Radiculopathy, lumbar region Coding Level of Care Code Est Pt Level 4 (13673) Diagnoses Lumbar radiculopathy M54.16
[2024-08-01 11:46] VITALS: BP 150/67; PULSE 88; RESP 16; O2SAT 97
--- OUTSIDE RECORDS SUMMARY | 2024-08-01 12:34 | XMS_ITS | Clinical Summary ---
Author Organization [facility] Address [address] [place] [address] Care Team Providers Care Loading Supervisor Name Role Phone Truong Colon MD Primary Care Provider +1- [phone] Allergies Active Allergy Reactions Criticality Noted Date [...] age to complete this topic Care Teams Loading Supervisor Relationship Specialty Start Date End Date Truong Colon MD [address] [facility] [place] [id number] PCP - General Internal Medicine 05/19/22
--- OUTSIDE RECORDS SUMMARY | 2024-08-01 12:34 | XMS_ITS | Encounter Summary ---
Author Organization [facility] Address [address] [place] [address] Phone Care Team Providers Care Sales Analytics Manager Name Role Phone Truong Colon MD Primary Care Provider +1- [phone] Encounter Details Date Type Department Care Team (Late Contact Info) Description 05/16/2024 Orders Only [facility] [address] [place] [address] Kylie Gabriel [address] [place] [address] Anemia in chronic kidney disease; [...] Care Team (Late st Contact Info) Description 08/13/2024 1:00 PM EDT Office Visit [facility] [address] [place] [address] Romero Jimenez MD [address] [place] [address] documented as of this encounter Visit Diagnoses Diagnosis Anemia in chronic kidney disease Stage 3b chronic kidney disease (HCC) Iron deficiency anemia, not otherwise specified documented in this encounter Care Teams Sales Analytics Manager Relationship Specialty Start Date End Date Truong Colon MD [address] [place] [address] PCP - General Internal Medicine 03/06/23 documented as of this encounter
--- OUTSIDE RECORDS SUMMARY | 2024-08-01 12:34 | XMS_ITS ---
Author Organization [facility] [facility] Address [address] [place] [address] Care Team Providers Care Jacket Changer Name Role Phone Truong Colon MD Primary Care Provider +1- [phone] Active Problems Problem Noted Date Diagnosed Date Iron deficiency anemia 05/18/2022 Malignant neoplasm of upper- outer quadrant of left breast in female, estrogen receptor positive 03/28/2017 Gastroesophageal reflux disease without esophagi tis 03/28/2017 Acquired hypothyroidism 03/28/2017 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 Current Oncology Plans No current plan information found. Past Plans Radiation Treatments * No radiation treatments are documented for this patient in [facility]. Treatments may have been administered in another system.
--- OUTSIDE RECORDS SUMMARY | 2024-08-01 12:34 | XMS_ITS | Encounter Summary ---
Author Organization [facility] Address [address] [place] [address] Phone Care Team Providers Care Malt Roaster Name Role Phone Truong Colon MD Primary Care Provider [phone] Encounter Details Date Type Department Care Team (Late Contact Info) Description 06/03/2024 Documentation Only [facility] [address] [place] [address] Kylie Gabriel [address] [place] [address] Social History Tobacco Use Types [...] Department Care Team (Late Contact Info) Description 08/13/2024 1:00 PM EDT Office Visit [facility] [address] [place] [address] Romero Jimenez MD [address] [place] [address] [place] [address] documented as of this encounter Visit Diagnoses Not on filedocumented in this encounter Care Teams Malt Roaster Relationship Specialty Start Date End Date Truong Colon MD [address] [place] [address] PCP - General Internal Medicine 03/06/23 documented as of this encounter
--- OUTSIDE RECORDS SUMMARY | 2024-08-01 12:34 | XMS_ITS | Patient Health Record ---
Author Organization [facility] [place] Address [address] [facility] [place] [address] Care Team Providers Care Principal Architectural Firm Name Role Phone Isaiah DURAN, Dewitt Primary Care Provider Boby Laguerre Unavailable [phone] Allergies Allergen (clinical drug ingredient) Drug/Non Drug Allergy documented on EMR Reaction Allergy Type Onset Date Status Senna rash and machado Drug Allergy Ac tive Penicillin rash Drug Allergy Active Reason For Referral No Information Medications Medication SIG (Take, Route, Frequency, Duration) Notes Start Date End Date Status Mapap Not-Taking Levothyroxine Sodium Not-Taking [facility] Calcium Not-Taki ng Tamoxifen Citrate No t-Taking zzzCompression Stockings 20-30mm Hg . . . for . Not-Taking Ammonium Lactate 12 % 1 application to affected area Externally Twice a day to dry areas of skin on feet except between toes for 30 days 01/24/2024 Active Folic Acid Not-Takin g Aspirin 81 MG 1 tablet Orally Once a day Not-Taking Silver sulfADIAZINE Not-Taking Propranolol HCl ER N ot-Taking Omeprazole 20 MG 1 tablet Orally Once a day Active Triamcinolone Acetonide Not-Taking hydroCHLOROthiazide Active Sulfamethoxazole-TMP DS Not-Taking Docusate Sodium Acti ve Bisacodyl Active Lisinopril Not-Takin g amLODIPine Besylate Active Lidocaine Not-Taking Carvedilol Active Calcitriol 0.5 MCG 1 capsule Orally Once a day Active ProAir HFA Not-Takin g Ibuprofen Not-Taking Azithromycin Not-Cruz ing Orthopedic Extra Depth Shoes With Custom Heat Molded Multidensity Innersoles 1 Pair shoes with 3 Pair custom heat molded innersoles Wear Daily for 365 days Active Fluticasone Propionate Not-Taking Flovent HFA Not-Taki ng [facility] Gentle Laxative Not-Taking traMADol HCl Not-Cruz ing Losartan Potassium N ot-Taking Immunizations Vaccine Route Administration Date Status Comme [...] Problem Acquired hammer toe of right foot ([id number] ) Other hammer toe(s) (acquired), right foot (M20.41) Active confirmed Response to treatment, Improvemen t Problem Acquired hammer toe of left foot (7086938174614965 ) Other hammer toe(s) (acquired), left foot (M20.42) Active confirmed Response to treatment, Improvemen t Problem Atherosclerosis of [place] arteries of the extremities (367325290126045) Atherosclerosis of [place] artery of both lower extremities, with unspecified presence of clinical manifestation (I70.203) Active confirmed Vital Signs Blood pressure diastolic 64 mm Hg 07/31/2024 Height 5 ft 9in in 07/31/2024 Blood pressure systolic 127 mm Hg 07/31/2024 Weight 233 lbs 07/31/2024 BMI 34.4 kg/m2 07/31/2024 Procedures Procedure Date Ordered Date Performed Result Body Sit e 27514-YKJZVGP NAIL, 6 OR MORE 08/30/2023 N/A 32880-Gghf Destruction, 1-14 08/30/2023 N/A 43423-Climzzar Plate 08/30/2023 N/A 43065-Dlagrscn Plate Each Additional 08/30/2023 N/A 37859-DCJA SKIN LESIONS, OVER 4 08/30/2023 N/A 96556-QCJMMQR NAIL, 6 OR MORE 11/08/2023 N/A 36691-Nlru Destruction, 1-14 11/08/2023 N/A 70441-Uqaugrbt Plate 11/08/2023 N/A 89591-Gnidgqev Plate Each Additional 11/08/2023 N/A 58259-XJQJ SKIN LESIONS, OVER 4 11/08/2023 N/A 80276-NTGEHRX NAIL, 6 OR MORE 01/24/2024 N/A 06124-Wdgq Destruction, 1-14 01/24/2024 N/A 46701-ZSSH SKIN LESIONS, OVER 4 01/24/2024 N/A 91395-OZOXVFN NAIL, 6 OR MORE 05/05/2024 N/A 61216-CMUB SKIN LESIONS, OVER 4 05/05/2024 N/A 51168-EBWPSMJ NAIL, 6 OR MORE 07/31/2024 N/A 31171-GFRA SKIN LESIONS, OVER 4 07/31/2024 N/A Encounters Encounter Location Date Provider Diagnosis [address] [address] 08/30/2023 Boby Chapman Atherosclerosis of [place] artery of both lower extremities, with unspecified presence of clinical manifestation I70.203 ; Plantar wart B07.0 ; Tinea unguium B35.1 ; Pain in right toe(s) M79.674 ; Pain in left toe(s) M79.675 ; Ingrown nail L60.0 and Left foot pain M79.[address] [address] 11/08/2023 Boby Chapman Atherosclerosis of [place] artery of both lower extremities, with unspecified presence of clinical manifestation I70.203 ; Plantar wart B07.0 ; Tinea unguium B35.1 ; Pain in right toe(s) M79.674 ; Pain in left toe(s) M79.675 ; Ingrown nail L60.0 ; Left foot pain M79.672 and Xerosis of skin L85.[address] [address] 01/24/2024 Boby Chapman Atherosclerosis of [place] artery of both lower extremities, with unspecified presence of clinical manifestation I70.203 ; Plantar wart B07.0 ; Tinea unguium B35.1 ; Pain in right toe(s) M79.674 ; Pain in left toe(s) M79.675 ; Left foot pain M79.672 and Xerosis of skin L85.[address] [address] 05/05/2024 Boby Chapman Atherosclerosis of [place] artery of both lower extremities, with unspecified presence of clinical manifestation I70.203 ; Tinea unguium B35.1 ; Pain in right toe(s) M79.674 ; Pain in left toe(s) M79.675 ; Other hammer toe(s) (acquired), right foot M20.41 and Other hammer toe(s) (acquired), left foot M20.[address] [address] 07/31/2024 Boby Chapman Atherosclerosis of [place] artery of both lower extremities, with unspecified presence of clinical manifestation I70.203 ; Tinea unguium B35.1 ; Pain in right toe(s) M79.674 ; Pain in left toe(s) M79.675 ; Other hammer toe(s) (acquired), right foot M20.41 and Other hammer toe(s) (acquired), left foot M20.42 Assessments Encounter Date Diagnosis (ICD Code) Assessment Notes Treatment Notes Treatment Clinical Notes Section Notes 08/30/2023 Plantar wart (ICD-10 - B07.0) 08/30/2023 Atherosclerosis of [place] artery of both lower extremities, with unspecified presence of clinical manifestation (ICD-10 - I70.203) 11/08/2023 Plantar wart (ICD-10 - B07.0) 11/08/2023 Atherosclerosis of [place] artery of both lower extremities, with unspecified presence of clinical manifestation (ICD-10 - I70.203) 01/24/2024 Plantar wart (ICD-10 - B07.0) 01/24/2024 Atherosclerosis of [place] artery of both lower extremities, with unspecified presence of clinical manifestation (ICD-10 - I70.203) 05/05/2024 Tinea unguium (ICD-10 - B35.1) 05/05/2024 Atherosclerosis of [place] artery of both lower extremities, with unspecified presence of clinical manifestation (ICD-10 - I70.203) 07/31/2024 Tinea unguium (ICD-10 - B35.1) 07/31/2024 Atherosclerosis of [place] artery of both lower extremities, with unspecified presence of clinical manifestation (ICD-10 - I70.203) 05/05/2024 Pain in right toe(s) (ICD-10 - M79.674) 07/31/2024 Pain in right toe(s) (ICD-10 - M79.674) 01/24/2024 Tinea unguium (ICD-10 - B35.1) 11/08/2023 Tinea unguium (ICD-10 - B35.1) 08/30/2023 Tinea unguium (ICD-10 - B35.1) 08/30/2023 Pain in right toe(s) (ICD-10 - M79.674) 11/08/2023 Pain in right toe(s) (ICD-10 - M79.674) 01/24/2024 Pain in right toe(s) (ICD-10 - M79.674) 05/05/2024 Pain in left toe(s) (ICD-10 - M79.675) 07/31/2024 Pain in left toe(s) (ICD-10 - M79.675) 07/31/2024 Other hammer toe(s) (acquired), right foot (ICD-10 - M20.41) 05/05/2024 Other hammer toe(s) (acquired), right foot (ICD-10 - M20.41) 01/24/2024 Pain in left toe(s) (ICD-10 - M79.675) 11/08/2023 Pain in left toe(s) (ICD-10 - M79.675) 08/30/2023 Pain in left toe(s) (ICD-10 - M79.675) 08/30/2023 Ingrown nail (ICD-10 - L60.0) 11/08/2023 Ingrown nail (ICD-10 - L60.0) 05/05/2024 Other hammer toe(s) (acquired), left foot (ICD-10 - M20.42) 01/24/2024 Left foot pain (ICD-10 - M79.672) 07/31/2024 Other hammer toe(s) (acquired), left foot (ICD-10 - M20.42) 11/08/2023 Left foot pain (ICD-10 - M79.672) 01/24/2024 Xerosis of skin (ICD-10 - L85.3) 08/30/2023 Left foot pain (ICD-10 - M79.672) 11/08/2023 Xerosis of skin (ICD-10 - L85.3) Plan Of Treatment Pending Test Test Name Order Date 83569-YEVMOMI NAIL, 6 OR MORE 03/21/2017 30402-RMAAIMX NAIL, 6 OR MORE 05/30/2017 14158-ODRVBGA NAIL, 6 OR MORE 08/06/2017 07258-UCVCVYV NAIL, 6 OR MORE 10/25/2017 89542-XZOQUED NAIL, 6 OR MORE 03/20/2018 19675-XGEHZDN NAIL, 6 OR MORE 06/13/2018 12132-VPYKVNH NAIL, 6 OR MORE 01/07/2018 55718-JTYNYYY NAIL, 6 OR MORE 08/14/2018 56465-QPBWCQX NAIL, 6 OR MORE 10/17/2018 31686-KJQDRZE NAIL, 6 OR MORE 01/16/2019 25936-VFNYQDE NAIL, 6 OR MORE 04/03/2019 73450-OSEHGSO NAIL, 6 OR MORE 06/16/2019 75773-YCQGMBD NAIL, 6 OR MORE 08/27/2019 83145-TYFVWVA NAIL, 6 OR MORE 12/18/2019 45538-ZPOUPAE NAIL, 6 OR MORE 05/06/2020 00889-NNCAKPG NAIL, 6 OR MORE 07/15/2020 59948-SDLVQQL NAIL, 6 OR MORE 09/29/2020 31826-IJDZWAG NAIL, 6 OR MORE 12/02/2020 32409-NHIIJSJ NAIL, 6 OR MORE 02/17/2021 49387-RBZDAAM NAIL, 6 OR MORE 06/16/2021 27217-OPIOMVE NAIL, 6 OR MORE 08/29/2021 64422-RSZCEHZ NAIL, 6 OR MORE 11/10/2021 16843-OQFRKEN NAIL, 6 OR MORE 01/19/2022 74065-KEPALCX NAIL, 6 OR MORE 04/05/2022 09701-RWBMFIJ NAIL, 6 OR MORE 06/15/2022 19990-VLNWEIL NAIL, 6 OR MORE 08/24/2022 68501-ZINUFFW NAIL, 6 OR MORE 11/16/2022 79536-JRKALEW NAIL, 6 OR MORE 01/25/2023 50372-PNNJDAK NAIL, 6 OR MORE 04/11/2023 71030-KYTMBZQ NAIL, 6 OR MORE 06/27/2023 74639-INJXFFE NAIL, 6 OR MORE 08/30/2023 47540-HYWRIBD NAIL, 6 OR MORE 11/08/2023 85460-VQUVCJG NAIL, 6 OR MORE 01/24/2024 24844-ETRJINU NAIL, 6 OR MORE 05/05/2024 23982-YEBWTOD NAIL, 6 OR MORE 07/31/2024 13921-JPADEFZ NAIL, 1-5 11/01/2016 59542-JLBFGLH NAIL, 1-5 01/03/2017 71957-CFFRTBT NAIL, 1-5 11/15/2015 08964-UDZUMQN NAIL, 1-5 01/24/2016 49136-STCDPTR NAIL, 1-5 04/05/2016 85063-NJPWYKS NAIL, 1-5 06/14/2016 26694-CNMFGLT NAIL, -5 08/23/2016 57608-Jncu Destruction, -14 11/01/2016 85349-Hndj Destruction, -14 01/03/2017 42587-Klla Destruction, -14 03/21/2017 91186-Rpgv Destruction, -14 05/30/2017 06034-Dnal Destruction, -14 08/06/2017 52314-Kicp Destruction, -14 05/06/2020 49751-Uwyj Destruction, -14 12/18/2019 34334-Rypx Destruction, 05-0608/27/2019 67235-Jetn Destruction, 05-0606/16/2019 89574-Hmkq Destruction, -14 04/03/2019 27465-Zoan Destruction, -14 01/16/2019 68628-Igls Destruction, -14 10/17/2018 16346-Xqog Destruction, 05-0608/14/2018 53377-Xnqo Destruction, 05-0606/13/2018 84896-Vcsx Destruction, 05-0610/25/2017 51896-Ibsq Destruction, 05-0601/07/2018 04595-Dobf Destruction, 05-0608/30/2023 03013-Xfft Destruction, 05-0606/27/2023 48651-Umti Destruction, 05-0604/11/2023 54681-Knzc Destruction, 05-0601/25/2023 56930-Oous Destruction, 05-0611/16/2022 81326-Tdau Destruction, 05-0608/24/2022 47493-Xluf Destruction, 05-0606/15/2022 63277-Zedi Destruction, 05-0604/05/2022 58369-Mnzi Destruction, 05-0601/19/2022 64680-Bjxk Destruction, 05-0606/16/2021 80257-Qrcf Destruction, 05-0603/20/2018 78696-Wymn Destruction, 05-0611/10/2021 32229-Brvq Destruction, 05-0608/29/2021 38229-Tync Destruction, 05-0602/17/2021 43372-Qdxh Destruction, 05-0612/02/2020 19106-Jrmx Destruction, 05-0609/29/2020 07465-Uttq Destruction, 05-0607/15/2020 08802-Vwrf Destruction, 05-0601/24/2024 25222-Atqn Destruction, 05-0611/08/2023 35812-Jjklbmfg Plate 11/08/2023 97925-Kljixfte Plate 09/29/2020 69582-Vruxwuvq Plate 12/02/2020 38773-Ogqnlwzy Plate 02/17/2021 33515-Zaxztonf Plate 06/16/2021 48817-Ohnqnjkj Plate 08/29/2021 87264-Bibcwfsp Plate 11/10/2021 59013-Qktatxqu Plate 01/19/2022 96752-Vnlzniuv Plate 04/05/2022 10161-Frggravw Plate 06/15/2022 17521-Bgjlyotr Plate 08/24/2022 45757-Ukpcqnfs Plate 11/16/2022 21680-Uiradqjr Plate 01/25/2023 75872-Lkcnotzx Plate 04/11/2023 58760-Njwcdvle Plate 06/27/2023 66530-Nztyvpei Plate 08/30/2023 52653-Cxyhkaep Plate 12/18/2019 08840-Jvfddcwu Plate 05/06/2020 03684-Oldxesqq Plate 07/15/2020 53150-Alabogko Plate 11/01/2016 06664-Slurgpht Plate Each Additional 12/2023 95106-Mqfqmqnl Plate Each Additional 09/2023 49050-Obuphoal Plate Each Additional 25252-Acrbvdot Plate Each Additional 08/2022 33467-Pasqtrle Plate Each Additional 50179-Thoaconp Plate Each Additional 07/2022 37870-Swzzdyho Plate Each Additional 51353-Drtfqwxb Plate Each Additional 76843-Hgpesicc Plate Each Additional 92571-Esqcfeaj Plate Each Additional 08355-SNXC SKIN LESIONS, OVER 4 11/08/19 24 65464-NDIQ SKIN LESIONS, OVER 4 01/24/20 24 73284-NMQO SKIN LESIONS, OVER 4 05/05/19 05910-LARH SKIN LESIONS, OVER 4 08/01/19 21430-GNNN SKIN LESIONS, OVER 4 06/16/19 13440-HYKE SKIN LESIONS, OVER 4 01/20/20 99253-WNKH SKIN LESIONS, OVER 4 11/11/19 98589-EMJC SKIN LESIONS, OVER 4 08/30/19 58218-WBNT SKIN LESIONS, OVER 4 02/18/20 21 49230-PMFP SKIN LESIONS, OVER 4 12/03/19 43707-IOKW SKIN LESIONS, OVER 4 09/30/19 21 07463-LFFH SKIN LESIONS, OVER 4 07/16/19 82064-ODPT SKIN LESIONS, OVER 4 04/05/20 79741-NCCN SKIN LESIONS, OVER 4 06/15/19 23 18183-ZAMO SKIN LESIONS, OVER 4 08/25/19 60555-OBEI SKIN LESIONS, OVER 4 11/17/19 23 95083-MBJD SKIN LESIONS, OVER 4 01/26/20 44635-YPOJ SKIN LESIONS, OVER 4 12/20/20 23 02823-YNXV SKIN LESIONS, OVER 4 06/27/19 24 09291-LLUU SKIN LESIONS, OVER 4 08/30/19 24 26824-CZPD SKIN LESIONS, OVER 4 03/21/20 17 76765-MJCZ SKIN LESIONS, OVER 4 01/04/20 17 31486-LQJV SKIN LESIONS, OVER 4 10/26/19 18 65956-DPGT SKIN LESIONS, OVER 4 08/07/19 18 34022-RFMC SKIN LESIONS, OVER 4 05/30/19 18 26935-JTKB SKIN LESIONS, OVER 4 11/02/19 17 34009-FHGP SKIN LESIONS, OVER 4 06/14/19 17 42210-AWST SKIN LESIONS, OVER 4 04/05/20 16 22031-CTTR SKIN LESIONS, OVER 4 08/24/19 17 59557-ERDN SKIN LESIONS, OVER 4 01/24/20 16 77585-FAOY SKIN LESIONS, OVER 4 11/15/19 16 43656-BRLP SKIN LESIONS, OVER 4 08/16/19 16 69552-TBUF SKIN LESIONS, OVER 4 05/06/19 21 26802-DSID SKIN LESIONS, OVER 4 12/18/19 20 18512-RYWE SKIN LESIONS, OVER 4 08/27/19 20 39957-BDQX SKIN LESIONS, OVER 4 04/03/20 19 65895-JRNX SKIN LESIONS, OVER 4 06/16/19 20 88556-DKGP SKIN LESIONS, OVER 4 01/08/20 18 14833-PMMI SKIN LESIONS, OVER 4 06/13/19 19 47988-RVGV SKIN LESIONS, OVER 4 08/15/19 19 50547-LNGK SKIN LESIONS, OVER 4 03/20/20 18 77443-EDZN SKIN LESIONS, OVER 4 10/18/19 19 97240-NRZM SKIN LESIONS, OVER 4 01/17/20 19 H6305-CFJJNWYR DYSTROPHIC NAILS ANY # U9824-MSFKBDFU DYSTROPHIC NAILS ANY # Y3674-UXGGZMKO DYSTROPHIC NAILS ANY # K4185-NNXGPSGP DYSTROPHIC NAILS ANY # Z5311-NOVXGUMP DYSTROPHIC NAILS ANY # H3427-TPTJMRGL DYSTROPHIC NAILS ANY # B8063-HIJKVJEB DYSTROPHIC NAILS ANY # F3916-QLCJASNT DYSTROPHIC NAILS ANY # Next Appt Details Provider Name:Boby Chapman , 10/30/2024 02:45:00 PM, [address] [facility], [address], [place], [address], Insurance Providers Payer Name Payer Address Payer Phone Subscriber Number Group Number Insured Name Patient Relationship to Insured Coverage Start Date Coverage End Date [facility] [employer] Claims [address] [place] [address] [phone] [id number] Jacinda Benavidez Self - patient is the insured Medical (General) History Medical History History ICD Code Anemia Anxiety Arthritis Back,Hip,and Knee pain Cataracts High blood pressure Liver disease Reflux Thyroid disorder Surgical History Surgery Date(Month/Year) gall bladder 12/11/2014 Unspecified Right Hand SX 03/13/17
--- OUTSIDE RECORDS SUMMARY | 2024-08-01 12:34 | XMS_ITS ---
Author Organization [facility] Address [address] [facility] [place] [address] Care Team Providers Care Dining Room Busser Name Role Phone Isaiah DURAN, Truong Primary Care Provider Boby Laguerre Unavailable [phone] Allergies Allergen (clinical drug ingredient) Drug/Non Drug Allergy documented on EMR Reaction Allergy Type Onset Date Status Senna rash and machado Drug Allergy Ac tive Penicillin rash Drug Allergy Active REASON FOR VISIT At Risk Footcare, Painful Nail(s) aggrevated by shoes and causing difficulty standing/walking., ToeIrritation Medications Medication SIG (Take, Route, Frequency, Duration) Notes Start Date End Date Status ProAir HFA Not-Takin g Silver sulfADIAZINE Not-Taking Propranolol HCl ER N ot-Taking Triamcinolone Acetonide Not-Taking Sulfamethoxazole-TMP DS Not-Taking Lisinopril Not-Takin g Lidocaine Not-Taking Ibuprofen Not-Taking Fluticasone Propionate Not-Taking Flovent HFA Not-Taki ng [facility] Calcium Not-Taki ng Azithromycin Not-Cruz ing [facility] Gentle Laxative Not-Taking traMADol HCl Not-Cruz ing Losartan Potassium N ot-Taking Mapap Not-Taking Levothyroxine Sodium Not-Taking Tamoxifen Citrate No t-Taking Folic Acid Not-Takin g Aspirin 81 MG 1 tablet Orally Once a day Not-Taking Docusate Sodium Acti ve zzzCompression Stockings 20-30mm Hg . . . for . Not-Taking Ammonium Lactate 12 % 1 application to affected area Externally Twice a day to dry areas of skin on feet except between toes for 30 days 01/24/2024 Active Omeprazole 20 MG 1 tablet Orally Once a day Active hydroCHLOROthiazide Active Bisacodyl Active amLODIPine Besylate Active Carvedilol Active Calcitriol 0.5 MCG 1 capsule Orally Once a day Active Orthopedic Extra Depth Shoes With Custom Heat Molded Multidensity Innersoles 1 Pair shoes with 3 Pair custom heat molded innersoles Wear Daily for 365 days Active Social History Tobacco Use: Social History [...] Vital Signs Height 5 ft 9in in 07/31/2024 Weight 233 lbs 07/31/2024 BMI 34.4 kg/m2 07/31/2024 Blood pressure systolic 127 mm Hg 08/01/19 25 Blood pressure diastolic 64 mm Hg 025 Procedures Procedure Date Ordered Date Performed Result Body Sit e 77701-VEWSSQF NAIL, 6 OR MORE 07/31/2024 N/A 64192-TLEG SKIN LESIONS, OVER 4 07/31/2024 N/A Encounters Encounter Location Date Provider Diagnosis [facility] [address] [address] 07/31/2024 Boby Chapman Atherosclerosis of chilkoot artery of both lower extremities, with unspecified presence of clinical manifestation I70.203 ; Tinea unguium B35.1 ; Pain in right toe(s) M79.674 ; Pain in left toe(s) M79.675 ; Other hammer toe(s) (acquired), right foot M20.41 and Other hammer toe(s) (acquired), left foot M20.42 Assessments Encounter Date Diagnosis (ICD Code) Assessment Notes Treatment Notes Treatment Clinical Notes Section Notes 07/31/2024 Atherosclerosis of chilkoot artery of both lower extremities, with unspecified presence of clinical manifestation (ICD-10 - I70.203) 07/31/2024 Tinea unguium (ICD-10 - B35.1) 07/31/2024 Pain in right toe(s) (ICD-10 - M79.674) 07/31/2024 Pain in left toe(s) (ICD-10 - M79.675) 07/31/2024 Other hammer toe(s) (acquired), right foot (ICD-10 - M20.41) 07/31/2024 Other hammer toe(s) (acquired), left foot (ICD-10 - M20.42) Plan Of Treatment Pending Test Test Name Order Date 54743-UDRKYEO NAIL, 6 OR MORE 07/31/2024 63996-NFDI SKIN LESIONS, OVER 4 08/01/19 25 Next Appt Details Follow Up: 2 Months, Reason: Provider Name:Boby Chapman , 10/30/2024 02:45:00 PM, [address], [place], [address], Procedure Notes * Category Sub-Category Detail Notes [...] ( TA, T1, T3, T4, T5, T6, T9 ), was performed exclusively by the physician of [...] to maintain effectiveness in symptomatic relief - Keratoma Treatment Parring or Cutting o f [...] MTH (s), 5, B/L, Plantar, Heel(s), B/L ), were pared, and/or cut utilizing a sterile 15 blade, tissue nippers, and/or power dremel instrumentation by the physician of record - 16492, Q8 Progress Notes * Tommie BLANCASOB:[birth year] (78 yo F)Acc No.[id number]:07/31/2024 Progress Note Patient:?Jacinda BLANCAS Provider:?Boby Chapman DPM :1945???Age:78 Y???Sex:Female D ate:07/31/2024 Address:[address] [place], [place] [address] Pcp:Truong Colon MD Subjective: * Chief Complaints: * ???At Risk FootcarePainful N ail(s) aggrevated by shoes and causing difficulty standing/walking.Toe Irritation * HPI: ???At Risk footcare:?Pt States Last PCP Visit:?Date?05/19/2024 ???Toe pain:?Treatments:?Rx shoes.? * ROS:?General/Constitutional:?Nausea?denies.?Vomiting?admits.?Hunger Thirst?admits.?Loss appetite?denies, denies.?Chills?denies, denies.?Fatigue?denies, [...] no. ?Marital status: . ?Occupation: Retired. * Medications:?TakingOrthopedi c Extra Depth Shoes With Custom Heat Molded Multidensity Innersoles 1 Pair shoes with 3 Pair custom heat molded innersoles Wear Daily amLODIPine Besylate Bisacodyl Calcitriol 0.5 MCG Capsule [...] of skin on feet except between toes Not-Taking/PRNzzzCompression Stockings 20- 30mm Hg 1 pair closed toe- knee high [...] 3, BMI: 34.4, Shoe size: 11W, BP: 127/64 mm Hg, Ht- cm: 175.26 cm, Wt-k.69 kg. * Examination: ???Vascular: ?DP PULSES (B):? 1/4, B/L.?PT PULSES (B):? 0/4, B/L.?CAPILLARY FILL TIME:? delayed, all digits, B/L.?TROPHIC CONDITION-TEXTURE/ELASTICITY/TURGOR/HAIR GROWTH (B):? decreased, with sparse to absent hair growth, B/L.?TEMPERTURE GRADIENT (C):? decreased, cool to cool, proximal to distal, B/L.?PIGMENTATION:? mottled, B/L.?EDEMA (C):?1/, non-pitting, without aching pain, B/L, Leg(s), Ankle(s).?CLAUDICATION [...] Dorsal, MTH (s), 5, B/L, Plantar, Heel(s), B/L.?Orthopedic: ?DIGITAL DEFORMITIES:?Digital contracture, PIPJ, 2-5 B/L, incompl- nonreducible to push-up test, medial under lapping - T3, T4, no longer, with evidence of shoe producing skin irritation.?FOOTWEAR EVALUATION:?good condition, exhibit proper fit and accommodation for pedal deformities. OT were inspected and noted to be worn, but in good condition giving proper support at the present time.? Assessment: * Assessment: 1.?Tinea unguium - B35.1???2 .?Atherosclerosis of chilkoot artery of both lower extremities, with unspecified presence of clinical manifestation - I70.203 (Primary)???Specify :Q8???3.?Pain in right toe(s) - M79.674???4.?Pain in left toe(s) - M79.675???5.?Other hammer toe(s) (acquired), right foot - M20.41???Specify :Chronic problem, Stable (1=3,2=4), Response to treatment - Improvement???6.?Other hammer toe(s) (acquired), left foot - M20.42???Specify :Chronic problem, Stable (1=3,2=4), Response to treatment - Improvement??? Plan: * Treatment: 2.?Tinea unguium?Procedure: 56212-OIPDVKK NAIL, 6 OR MORE * Procedures:?Debride Nail 6-10:?Nail debridement?Due to the clinical pathology outlined in the exam findings, performance of this nail treatment is medically necessary as its management by an unskilled/untrained nonprofessional would put this patients foot and overall health at risk. Therefore, debridement to affected nail(s), as described in exam (?TA,?T1,?T3,?T4,?T5,?T6,?T9?), was performed exclusively by the physician of [...] to maintain effectiveness in symptomatic relief - 32654.?Keratoma Treatment:?Parring or Cutting of Benign Hyperkeratotic Lesion(s)?(-57) [...] the exam (?Dorsal,?PIPJ,?T6,?Dorsal,?PIPJ,?T8,?SUB MTH (s),?1,?Right,?SUB MTH (s),?5,?B/L?,?Dorsal,?MTH (s),?5,?B/L,?Plantar,?Heel(s),?B/L?), were pared, and/or cut utilizing a sterile 15 blade, tissue nippers, and/or power dremel instrumentation by the physician of record - 32097, Q8.? * Procedure Codes:?40499 DEBRI DE NAIL, 6 OR MORE, Modifiers: XS 72222 TRIM SKIN LESIONS, OVER 4, Modifiers: XS [...] have encouraged the patient to call the office.?Shoe Gear Counseling:?A thorough inspection of the patients Rxed shoegear and inserts was performed and findings communicated. We reviewed the many important medical advantages for adhering to regularly wearing these shoe and insert accomidative devices daily as well as reviewed the fact that a failure in accepting these recommedations may be deleterious, unable to prevent, and disadvantagely result in, many pedal complications such as skin irritation, skin ulceration, infection, and even loss of toe/foot/leg/or even their life. Time was also spent reviewing the proper footcare techniques including daily skin moisturization, daily foot inspection for any interruption in skin integrity, open lesions, or sign of infection such as redness/malodor/drainage/swelling as well as daily shoe inspection for the presence of internal foreign bodies and shoe as well as insert wear. Patient questions re: shoes, inserts, and self foot inspections were answered to their satisfaction as the patient verbally confirmed a full understanding of the above information.? ??Screening/Special Tests:?Fall Risk?Screening:?No falls in the past year ?FALLS: Screening for Future Fall Risk?Have you had any falls with injury in the past year??No * Follow Up:?2 Months * Images: * Sign off status: Completed true * Provider:?Boby Chapman DPM Date:?2024 Generated for Yovanny toussaint/Leah/eTcalderon on:?08/01/2024 12:34 PM EDT History and Physical Notes * HPI (History of Present Illness) Category Sub-Category Detail Notes Category Not es Toe pain Treatments: Rx shoes At Risk footcare Pt States Last PCP Visit: Date: Examination Category Sub-Category Detail Notes Category Not es Dermatologic SKIN FINDINGS: Skin exam reveal s Keratotic lesion(s) located at, Dorsal, PIPJ, T6, Dorsal, PIPJ, T8, SUB MTH (s), 1, Right, SUB MTH (s), 5, B/L , Dorsal, MTH (s), 5, B/L, Plantar, Heel(s), B/L Orthopedic FOOTWEAR EVALUATION: good condit ion, exhibit proper fit and accommodation for pedal deformities. OT were inspected and noted to be worn, but in good condition giving proper support at the present time DIGITAL DEFORMITIES: Digital contracture , PIPJ, 2-5 B/L, incompl-nonreducible to push-up test, medial under lapping - T3, T4, no longer, with evidence of shoe producing skin irritation Vascular DP PULSES (B): 1/4, B/L PT [...]
--- OUTSIDE RECORDS SUMMARY | 2024-08-01 12:34 | XMS_ITS | Encounter Summary ---
Author Organization [facility] Address [address] [place] [address] Phone Care Team Providers Care Chef Broiler Or Fry Name Role Phone Truong Colon MD Primary Care Provider [phone] Encounter Details Date Type Department Care Team (Late Contact Info) Description 05/12/2021 Documentation Only [facility] [address] [place] [address] Eligio Meza MD [address] [place] [address] [place] [address] Social History Tobacco Use Types [...] Visit [facility] [address] [place] [address] Romero Jimenez MD [address] [place] [address] documented as of this encounter Visit Diagnoses Not on filedocumented in this encounter Care Teams Chef Broiler Or Fry Relationship Specialty Start Date End Date Truong Colon MD [address] [place] [address] PCP - General Internal Medicine 03/06/23 documented as of this encounter
--- OUTSIDE RECORDS SUMMARY | 2024-08-01 12:34 | XMS_ITS | Encounter Summary ---
Author Organization [facility] Address [address] [place] [address] Phone Care Team Providers Care Patient Representative Name Role Phone Truong Colon MD Primary Care Provider [phone]- [phone] Encounter Details Date Type Department Care Team (Late Contact Info) Description 05/27/2024 Documentation Only [facility] [address] [place] [address] Kylie Gabriel [address] [place] [address] Social History Tobacco Use Types [...] [facility] [address] [place] [address] Romero Jimenez MD [address] [place] [address] [place] [address] documented as of this encounter Visit Diagnoses Not on filedocumented in this encounter Care Teams Patient Representative Relationship Specialty Start Date End Date Truong Colon MD [address] [place] [address] PCP - General Internal Medicine 03/06/23 documented as of this encounter
--- OUTSIDE RECORDS SUMMARY | 2024-08-01 12:34 | XMS_ITS ---
Author Organization [facility] Address [address] [facility] [address] Care Team Providers Care Solar Photovoltaic Installer Name Role Phone Isaiah DURAN, [place] Primary Care Provider Boby Laguerre Unavailable [phone] Allergies Allergen (clinical drug ingredient) Drug/Non Drug [...] Ordered Date Performed Result Body Sit e 81287-RSUPIER NAIL, 6 OR MORE 01/24/2024 N/A 56758-Newz Destruction, 1-14 01/24/2024 N/A 87047-MJJV SKIN LESIONS, OVER 4 01/24/2024 N/A Encounters Encounter Location Date Provider Diagnosis [facility] [place] [address] [place] [address] 01/24/2024 Boby Chapman Atherosclerosis of [place] artery of both lower extremities, with unspecified presence of clinical manifestation I70.203 ; Plantar wart B07.0 ; Tinea unguium B35.1 ; Pain in right toe(s) M79.674 ; Pain in left toe(s) M79.675 ; Left foot pain M79.672 and Xerosis of skin L85.3 Assessments Encounter Date Diagnosis (ICD Code) Assessment Notes Treatment Notes Treatment Clinical Notes Section Notes 01/24/2024 Atherosclerosis of [place] artery of both lower extremities, with unspecified [...] 01/24/2024 Pending Test Test Name Order Date 51310-IZOERMY NAIL, 6 OR MORE 01/24/2024 40199-Oxnc Destruction, 1-14 01/24/2024 96801-LGPV SKIN LESIONS, OVER 4 01/24/20 24 Next Appt Details Follow Up: 2 Months, Reason: Provider Name:Boby Chapman , 10/30/2024 02:45:00 PM, [address], [place], [address], Procedure Notes * Category Sub-Category Detail Notes Wart Treatment Procedure Verrucae were de brided to pin-point bleeding margins with sterile 15 surgical blade, silver nitrate chemocautery applied, recomm. immune-boosting meds such as zinc, recomm. follow up with topical chemosurgical agents, Pt defers any other forms of tx - 41210 Debride Nail 6-10 Nail debridement Performance o f this nail treatment by a nonprofessional would put this patients foot and overall health at risk. Therefore, nail debridement was performed extensively to reduce/remove overall nail length, girth, thickness, subungual debris, and necrotic tissue, by manual and/or electrical means through the use of a nail nipper and/or dremel-type outer diameter grinder tool, to a more viable healthy nail plate or bed tissue 6-10. Silver nitrate used for any petechial bleeding as necessary. Definitive antifungal treatment options have been reviewed and discussed with the patient. The patient chooses, no pharmaceutical tx - 14201 Keratoma Treatment Parring or Cutting o f Benign Hyperkeratotic Lesion(s) (-57) More than 4 Lesions - The Benign hyperkeratotic lesions, as described above were pared, and/or cut utilizing a sterile 15 blade, tissue nippers, and/or dremel - 83151 , Q8 Progress Notes * Tommie BLANCASOB:[birth year] (78 yo F)Acc No.[id number]:01/24/2024 Progress Note Patient:?Jacinda BLANCAS Provider:?Boby Chapman DPM :1945???Age:78 Y???Sex:Female D ate:01/24/2024 Address:[address] [place] [address] Pcp:Truong Colon MD Subjective: * Chief Complaints: [...] Vitals:? * Examination: ???Vascular: ?DP PULSES (B):? 04/26, B/L.?PT PULSES (B):? 0/4, B/L.?CAPILLARY FILL TIME:? [...] wart - B07.0 (Malka ngozi)???Specify :LEFT???2.?Atherosclerosis of yering[place] artery of both lower extremities, with unspecified presence of clinical manifestation - I70.203???3.?Tinea unguium - B35.1???4.?Pain in right toe(s) - M79.674???5.?Pain in left toe(s) - M79.675???6.?Left foot pain - M79.672???7.?Xerosis of skin - L85.3???Specify :Acute problem, Stable (1=3),Response to treatment - Improvement??? Plan: * Treatment: 2.?Atherosclerosis of [place]ering[place] artery of both lower extremities, with unspecified presence of clinical manifestation?Procedure: 01563-SNTA SKIN LESIONS, OVER 4 3.?Tinea unguium?Procedure: 94796-TJBLZFA NAIL, 6 OR MORE 4.?Xerosis of skin? [...] use of a nail nipper and/or dremel-type outer diameter grinder tool, to a more viable healthy nail plate or bed tissue 6-10. Silver nitrate used for any petechial bleeding as necessary. Definitive antifungal treatment options have been reviewed and discussed with the patient. The patient chooses, no pharmaceutical tx - 58090.?Keratoma Treatment:?Parring or Cutting of Benign Hyperkeratotic Lesion(s)?(-57) More than 4 Lesions - The Benign hyperkeratotic lesions, as described above were pared, and/or cut utilizing a sterile 15 blade, tissue nippers, and/or dremel - 20781 , Q8.?Wart Treatment:?Procedure?Verrucae were debrided to pin-point bleeding margins with sterile 15 surgical blade, silver nitrate chemocautery applied, recomm. immune-boosting meds such as zinc, recomm. follow up with topical chemosurgical agents, Pt defers any other forms of tx - 43203.? * Procedure Codes:?61395 DEBRI DE NAIL, 6 OR MORE, Modifiers: XS 50522 Wart Destruction, 1-14, Modifiers: XS 54176 TRIM SKIN LESIONS, OVER 4, Modifiers: XS [...] Chapman DPM Date:?2023 Generated for Yovanny toussaint/Leah/Lois on:?08/01/2024 12:33 PM EDT History and Physical Notes * [...]
--- OUTSIDE RECORDS SUMMARY | 2024-08-01 12:35 | XMS_ITS | Encounter Summary ---
Author Organization [facility] Address [address] [place] [address] Phone Care Team Providers Care Spray Drier Name Role Phone Truong Colon MD Primary Care Provider [phone] Encounter Details Date Type Department Care Team (Late Contact Info) Description 01/14/2024 Documentation Only [facility] [address] [place] [place] [address] [place] [address] [place] [address] Social History Tobacco Use Types Packs/Day [...] Visit [facility] [address] [place] [place] [address] Romero Jimenez MD [address] [place] [address] documented as of this encounter Visit Diagnoses Not on filedocumented in this encounter Care Teams Spray Drier Relationship Specialty Start Date End Date Truong Colon MD [address] [place] [address] PCP - General Internal Medicine 03/06/23 documented as of this encounter
--- OUTSIDE RECORDS SUMMARY | 2024-08-01 12:35 | XMS_ITS | Continuity of Care Document ---
Author Organization [facility] Address [address] [place] [address] Phone Care Team Providers Care Pediatric Sports Medicine Specialist Name Role Phone Amanuel DURAN FACS RVT [...] Providers Copied on Encounter [facility], [address] [address], [id number], [place] tel:[phone] [facility] [place] No Information 3 Amanuel DURAN FACS T SIMÓN Pinto. [address] [facility] [address], [address], [place], [address], [place]. [phone] Referring Provider: Truong Colon MD, [address], [place], [address]. tel:[phone] Office/Outpt E&M Established 25 Mins [facility], [address] [place] [address] Dr [address] [address] [place], [id number], [place] tel:[phone] [facility] [place] Body mass index (BMI) 34.0-34.9, adultVenous insufficiency (chronic) (peripheral) 3 Amanuel DURAN FACS Yoni Pinto. [address] [place] [address], [place] [address], [place], [address], [place]. [phone] Referring Provider: Truong Colon MD, [address], [place], [address]. 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 [address] [place] [address], [address], [place], [address], [place]. [phone] Referring Provider: Truong Colon MD, [address], [place], [address]. 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 [facility] [facility], [address], [place], [address], [place]. tel:[phone] Referring Provider: Truong Colon MD, [address], [place], [address]. tel:[phone] [facility], [address] [place] [address] [address] [place], [id number], [place] tel:[phone] [facility] [place] Encntr for f/u exam aft trtmt for cond oth than malig neoplmVenous insufficiency (chronic) (peripheral) 3 Amanuel DURAN FACS RVT SIMÓN Pinto. [address] [facility] [address] [facility], [facility] [address], [place], [address], [place]. tel:[phone] Referring Provider: Truong Colon MD, [address] [place] [address] Dr [address], [place], [address]. 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 [address] [facility], [facility] [address], [place], [address], [place]. [phone] Referring Provider: Truong Colon MD, [address] [place] [address] Dr [address], [place], [address]. 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 [address] [facility], [facility] [address], [place], [address], [place]. tel:[phone] Referring Provider: Truong Colon MD, [address], [place], [address]. tel:[phone] Family History Family Member Type Diagnosis Age At Onset No Information Payers Payer name Insurance type Covered democrat ID Josefina haynes(s) [facility] [id number] Social History Type Description Quantity Date Captured [...]
--- OUTSIDE RECORDS SUMMARY | 2024-08-01 12:35 | XMS_ITS | Encounter Summary ---
Author Organization [facility] Address [address] [place] [address] Phone Care Team Providers Care Fountain Waitress/Waiter Name Role Phone Truong Colon MD Primary Care Provider +1- [phone] Encounter Details Date Type Department Care Team (Late Contact Info) Description 07/02/2024 Documentation Only [facility] [address] [place] [address] [place] [address] [place] [address] Social History Tobacco Use Types Packs/Day [...] [facility] [address] [place] [address] Romero Jimenez MD [address] [place] [address] [place] [address] documented as of this encounter Visit Diagnoses Not on filedocumented in this encounter Care Teams Fountain Waitress/Waiter Relationship Specialty Start Date End Date Truong Colon MD [address] [place] [address] PCP - General Internal Medicine 03/06/23 documented as of this encounter
--- OUTSIDE RECORDS SUMMARY | 2024-08-01 12:35 | XMS_ITS | Encounter Summary ---
Author Organization [facility] Address [address] [place] [address] Phone Care Team Providers Care Armed Custom Protection Officer Name Role Phone Truong Colon MD Primary Care Provider +1- [phone] Encounter Details Date Type Department Care Team (Late Contact Info) Description 06/13/2024 Orders Only [facility] [address] [place] [address] Kylie Gabriel [address] [place] [address] Anemia in chronic kidney disease; [...] Visit [facility] [address] [place] [address] Romero Jimenez MD [address] [facility] [address] [place] [address] documented as of this encounter Visit Diagnoses Diagnosis Anemia in chronic kidney disease Stage 3b chronic kidney disease (HCC) Iron deficiency anemia, not otherwise specified documented in this encounter Care Teams Armed Custom Protection Officer Relationship Specialty Start Date End Date Truong Colon MD [address] [place] [address] PCP - General Internal Medicine 03/06/23 documented as of this encounter
--- OUTSIDE RECORDS SUMMARY | 2024-08-01 12:35 | XMS_ITS ---
Author Organization [facility], Address [address] [place] [address] [place] [address] Phone Care Team Providers Care Door Maker Name Role Phone Truong Colon MD Primary Care Provider +1- [phone] Active Problems Problem Noted Date Diagnosed Date Peripheral vascular disease 05/02/2022 Iron deficiency anemia, not otherwise specified 04/07/2022 Stage 3b chronic kidney disease 01/26/2021 Renal osteodystrophy 09/16/2020 Anemia in chronic kidney disease 05/14/2019 Hypertensive heart disease without congestive he art failure 05/14/2019 Essential hypertension Current Treatment and Therapy Plans No current plan information found. Past Treatment and Therapy Plans Resolved Problems Problem Noted Date Diagnosed Date [...]
--- OUTSIDE RECORDS SUMMARY | 2024-08-01 12:35 | XMS_ITS | Encounter Summary ---
Author Organization [facility] Address [address] [place] [address] Phone Care Team Providers Care Clin Nurse Name Role Phone Truong Colon MD Primary Care Provider +1- [phone] Encounter Details Date Type Department Care Team (Late Contact Info) Description 10/26/2023 Documentation Only [facility] [address] [place] [address] Kylie Gabriel [address] [place] [address] Social History Tobacco Use Types [...] Visit [facility] [address] [place] [address] Romero Jimenez MD [address] [place] [address] [place] [address] documented as of this encounter Visit Diagnoses Not on filedocumented in this encounter Care Teams Clin Nurse Relationship Specialty Start Date End Date Truong Colon MD [address] [place] [address] PCP - General Internal Medicine 03/06/23 documented as of this encounter
--- OUTSIDE RECORDS SUMMARY | 2024-08-01 12:35 | XMS_ITS | Clinical Summary ---
Author Organization [facility] [place], Address [address] [place] [address] [place] [address] Phone Care Team Providers Care Home Visitor Home Base Head Start Name Role Phone Truong Colon MD Primary Care Provider +1- [phone] Allergies Active Allergy Reactions Criticality Noted Date [...] CADA SEMANA 24 capsule 14 5 Active gabapentin (Neurontin) 100 MG capsule Take 1 capsule (100 mg total) by mouth 1 (one) time each day 30 capsule 5 Active Active Problems Problem Noted Date [...] Encounters Date Type Department Care Team Description 07/31/2024 Documentation Only [facility] [address] [place] [address] Kylie Gabriel 07/31/2024 Office Communication [facility] [place] [facility] [address] [place] [address] Deisi Wakefield, RN 07/16/2024 3:45 PM EDT Office Visit [facility] [address] [place] [address] Romero Jimenez MD Stage 3b chronic kidney disease (HCC) (Primary Dx) 07/11/2024 Orders Only [facility] [address] [place] [address] Kylie Gabriel Anemia in chronic kidney disease; Stage 3b chronic kidney disease (HCC); Iron deficiency anemia, not otherwise specified 07/02/2024 Documentation Only [facility] [address] [place] [address] Sabrina Membreno MA 06/13/2024 Orders Only [facility] [address] [place] [address] Kylie Gabriel Anemia in chronic kidney disease; Stage 3b chronic kidney disease (HCC); Iron deficiency anemia, not otherwise specified 06/05/2024 Telephone [facility] [address] [place] [address] Deisi Wakefield, RN reminder for labs 06/03/2024 Documentation Only [facility] [address] [place] [address] Kylie Gabriel 05/31/2024 Office Communication [facility] [address] [address] Deisi Wakefield, RN 05/31/2024 Telephone [facility] [address] [address] Deisi Wakefield, RN 05/27/2024 Documentation Only [facility] [address] [place] [address] Kylie Gabriel 05/16/2024 Orders Only [facility] [address] [place] [address] Kylie Gabriel Anemia in chronic kidney disease; Stage 3b chronic kidney disease (HCC); Iron deficiency anemia, not otherwise specified 05/11/2024 Refill [facility] [address] [place] [address] Eligio Meza MD from Last 3 Months Immunizations Immunization Administration Dates Next Due Hepatitis B 08/30/2015,04/05/2015,03/01/2015 [...] Visit [facility] [place], [address] [place] [address] Romero Jimenez MD [address] [facility] [place] [address] Health Maintenance Due Date Last Done Comments Influenza Vaccine (Season Ended) 2024 02/27/2022, 05/10/2021, 01/29/2020, Additional history exists Hepatitis B Vaccine Aged Out 08/30/2015, 04/05/2015, 03/01/2015 No longer eligible based on patient's age to complete this topic Pneumococcal Vaccine: 50+ Years Completed 03/18/2019, 04/07/2016, 02/13/2014, Additional history exists Pneumococcal Vaccine: Peds (0 to 5 Years) and At-Risk Patients (6 to 49 Years) Discontinued 03/18/2019, 04/07/2016, 02/13/2014, Additional history exists Procedures [...] Most Recently Relevant to Health Maintenance Insurance [employer] Dual SNP ([id number]) [place] [id number] Care Teams Home Visitor Home Base Head Start Relationship Specialty Start Date End Date Truong Colon MD [address] [place] [address] PCP - General Internal Medicine 03/06/23
--- OUTSIDE RECORDS SUMMARY | 2024-08-01 12:35 | XMS_ITS | Encounter Summary ---
Author Organization [facility] Address [address] [place] [address] Phone Care Team Providers Care Special Needs Librarian Name Role Phone Truong Colon MD Primary Care Provider +1- [phone] Encounter Details Date Type Department Care Team (Late Contact Info) Description 05/04/2022 Documentation Only [facility] [address] [place] [address] Kylie Gabriel [address] [place] [address] Social History Tobacco Use Types [...] Visit [facility] [address] [place] [address] Romero Jimenez MD [address] [place] [address] [place] [address] documented as of this encounter Visit Diagnoses Not on filedocumented in this encounter Care Teams Special Needs Librarian Relationship Specialty Start Date End Date Truong Colon MD [address] [place] [address] PCP - General Internal Medicine 03/06/23 documented as of this encounter
--- OUTSIDE RECORDS SUMMARY | 2024-08-01 12:35 | XMS_ITS | Encounter Summary ---
Author Organization [facility] Address [address] [place] [address] Phone Care Team Providers Care Corporate Quality Assurance Manager Name Role Phone Truong Colon MD Primary Care Provider +1- [phone] Encounter Details Date Type Department Care Team (Late Contact Info) Description 10/26/2023 Documentation Only [facility] [address] [place] [address] Kylie Gabriel [address] [place] [address] Social History Tobacco Use Types [...] [facility] [address] [place] [address] Romero Jimenez MD [address] [place] [address] [place] [address] documented as of this encounter Visit Diagnoses Not on filedocumented in this encounter Care Teams Corporate Quality Assurance Manager Relationship Specialty Start Date End Date Truong Colon MD [address] [place] [address] PCP - General Internal Medicine 03/06/23 documented as of this encounter
--- OUTSIDE RECORDS SUMMARY | 2024-08-01 12:35 | XMS_ITS | Encounter Summary ---
Author Organization [facility] Address [address] [place] [address] Phone Care Team Providers Care Bench Repair Technician Name Role Phone Truong Colon MD Primary Care Provider +1- [phone] Encounter Details Date Type Department Care Team (Late Contact Info) Description 01/31/2024 Documentation Only [facility] [address] [place] [address] Kylie Gabriel [address] [place] [address] Social History Tobacco Use Types [...] [facility] [address] [place] [address] Romero Jimenez MD [address] [place] [address] [place] [address] documented as of this encounter Visit Diagnoses Not on filedocumented in this encounter Care Teams Bench Repair Technician Relationship Specialty Start Date End Date Truong Colon MD [address] [place] [address] PCP - General Internal Medicine 03/06/23 documented as of this encounter
--- OUTSIDE RECORDS SUMMARY | 2024-08-01 12:35 | XMS_ITS | Encounter Summary ---
Author Organization [facility] Address [address] [place] [address] Phone Care Team Providers Care Communications Tower Technician Name Role Phone Truong Colon MD Primary Care Provider +1- [phone] Encounter Details Date Type Department Care Team (Late Contact Info) Description 04/29/2024 Documentation Only [facility] [address] [place] [address] Britt Sol [address] [place] [address] Social History Tobacco Use Types [...] [facility] [address] [place] [address] Romero Jimenez MD [address] [place] [address] [place] [address] documented as of this encounter Visit Diagnoses Not on filedocumented in this encounter Care Teams Communications Tower Technician Relationship Specialty Start Date End Date Truong Colon MD [address] [place] [address] PCP - General Internal Medicine 03/06/23 documented as of this encounter
--- OUTSIDE RECORDS SUMMARY | 2024-08-01 12:35 | XMS_ITS | Encounter Summary ---
Author Organization [facility] Address [address] [place] [address] Phone Care Team Providers Care Hvac Technician Residential Name Role Phone Truong Colon MD Primary Care Provider +1- [phone] Encounter Details Date Type Department Care Team (Late Contact Info) Description 04/10/2024 Documentation Only [facility] [address] [place] [address] Kylie Gabriel [address] [place] [address] Social History Tobacco Use Types [...] [facility] [address] [place] [address] Romero Jimenez MD [address] [place] [address] [place] [address] documented as of this encounter Visit Diagnoses Not on filedocumented in this encounter Care Teams Hvac Technician Residential Relationship Specialty Start Date End Date Truong Colon MD [address] [place] [address] PCP - General Internal Medicine 03/06/23 documented as of this encounter
--- OUTSIDE RECORDS SUMMARY | 2024-08-01 12:35 | XMS_ITS | Encounter Summary ---
Author Organization [facility] Address [address] [place] [address] Phone Care Team Providers Care Assistant Vice President Name Role Phone Truong Colon MD Primary Care Provider +1- [phone] Encounter Details Date Type Department Care Team (Late Contact Info) Description 04/14/2022 Documentation Only [facility] [address] [place] [address] Eligio Meza MD [address] [place] [address] [place] [address] Social History Tobacco Use Types [...] Visit [facility] [address] [place] [address] Romero Jimenez MD [address] [facility] [place] [address] documented as of this encounter Visit Diagnoses Not on filedocumented in this encounter Care Teams Assistant Vice President Relationship Specialty Start Date End Date Truong Colon MD [address] [place] [address] PCP - General Internal Medicine 03/06/23 documented as of this encounter
--- OUTSIDE RECORDS SUMMARY | 2024-08-01 12:35 | XMS_ITS | Encounter Summary ---
Author Organization [facility] Address [address] [place] [address] Phone Care Team Providers Care Store Assistant Name Role Phone Truong Colon MD Primary Care Provider +1- [phone] Encounter Details Date Type Department Care Team (Late Contact Info) Description 04/04/2024 Documentation Only [facility] [address] [place] [address] Jasmin Dumont [address] [place] [address] Social History Tobacco Use Types [...] Visit [facility] [address] [place] [address] Romero Jimenez MD [address] [place] [address] [place] [address] documented as of this encounter Visit Diagnoses Not on filedocumented in this encounter Care Teams Store Assistant Relationship Specialty Start Date End Date Truong Colon MD [address] [place] [address] PCP - General Internal Medicine 03/06/23 documented as of this encounter
--- OUTSIDE RECORDS SUMMARY | 2024-08-01 12:35 | XMS_ITS | Encounter Summary ---
Author Organization [facility] Address [address] [place] [address] Phone Care Team Providers Care Guide Dog Trainer Name Role Phone Truong Colon MD Primary Care Provider +1- [phone] Encounter Details Date Type Department Care Team (Late Contact Info) Description 10/29/2023 Documentation Only [facility] [address] [place] [address] Kylie Gabriel [address] [place] [address] Social History Tobacco Use Types [...] Visit [facility] [address] [place] [address] Romero Jimenez MD [address] [place] [address] [place] [address] documented as of this encounter Visit Diagnoses Not on filedocumented in this encounter Care Teams Guide Dog Trainer Relationship Specialty Start Date End Date Truong Colon MD [address] [place] [address] PCP - General Internal Medicine 03/06/23 documented as of this encounter
--- OUTSIDE RECORDS SUMMARY | 2024-08-01 12:35 | XMS_ITS | Encounter Summary ---
Author Organization [facility] Address [address] [place] [address] Phone Care Team Providers Care Starch Dumper Name Role Phone Truong Colon MD Primary Care Provider +1- [phone] Encounter Details Date Type Department Care Team (Late Contact Info) Description 04/10/2024 Documentation Only [facility] [address] [place] [address] Kylie Gabriel [address] [place] [address] Social History Tobacco Use Types [...] [facility] [address] [place] [address] Romero Jimenez MD [address] [place] [address] [place] [address] documented as of this encounter Visit Diagnoses Not on filedocumented in this encounter Care Teams Starch Dumper Relationship Specialty Start Date End Date Truong Colon MD [address] [place] [address] PCP - General Internal Medicine 03/06/23 documented as of this encounter
--- OUTSIDE RECORDS SUMMARY | 2024-08-01 12:35 | XMS_ITS | Encounter Summary ---
Author Organization [facility], Address [address] [place] [address] Phone Care Team Providers Care Logistics Director Name Role Phone Truong Colon MD Primary Care Provider +1- [phone] Encounter Details Date Type Department Care Team (Late st Contact Info) Description 07/31/2024 Office Communication [facility] - [address] [place] [address] Deisi Wakefield, ROGELIO [address] [place] [address] [place] [address] Social History Tobacco Use Types [...] * Telephone Encounter - Kylie Gabriel - 08/01/2024 10:28 AM EDT Faxed letter to medical records asking for latest labs to be faxed to the office. * Telephone Encounter - Deisi Wakefield RN - 07/31/2024 11:12 AM EDT Can u check [facility] for labs that should have been drawn 07/21 please? documented in this encounter Plan of Treatment Upcoming Encounters Date Type Department Care Team (Late st Contact Info) Description 08/13/2024 1:00 PM EDT Office Visit [facility] [address] [place] [address] Romero Jimenez MD [address] [place] [address] [place] [address] documented as of this encounter Visit Diagnoses Not on filedocumented in this encounter Care Teams Logistics Director Relationship Specialty Start Date End Date Truong Colon MD [address] [place] [address] [address] [place] [address] PCP - General Internal Medicine 03/06/23 documented as of this encounter
--- OUTSIDE RECORDS SUMMARY | 2024-08-01 12:35 | XMS_ITS ---
Author Organization [facility] Address [address] [facility] [place] [address] Care Team Providers Care Arabic Teacher Name Role Phone Isaiah DURAN, Truong Primary Care Provider Boby Laguerre Unavailable [phone] Allergies Allergen (clinical drug ingredient) Drug/Non Drug [...] Ordered Date Performed Result Body Sit e 32039-ZNRMOYF NAIL, 6 OR MORE 05/05/2024 N/A 30190-REHL SKIN LESIONS, OVER 4 05/05/2024 N/A Encounters Encounter Location Date Provider Diagnosis [facility] [address] [address] 05/05/2024 Boby Chapman Atherosclerosis of cherokee artery [...] Clinical Notes Section Notes 05/05/2024 Atherosclerosis of cherokee artery of both [...] days Pending Test Test Name Order Date 37774-URYABPR NAIL, 6 OR MORE 05/05/2024 84163-VRYU SKIN LESIONS, OVER 4 05/05/19 25 Next Appt Details Follow Up: 2 Months, Reason: Provider Name:Boby Chapman , 10/30/2024 02:45:00 PM, [address], [place], [address], Procedure Notes * Category Sub-Category Detail Notes [...] use of a nail nipper and/or dremel-type surface grinder tender, to a more viable healthy nail plate [...] to maintain effectiveness in symptomatic relief - 10317 Keratoma Treatment Parring or Cutting o f [...] instrumentation by the physician of record - 36395, Q8 Progress Notes * Tommie BLANCASOB:[birth year] (78 yo F)Acc No.[id number]:05/05/2024 Progress Note Patient:?Jacinda BLANCAS Provider:?Boby Chapman DPM :1945???Age:78 Y???Sex:Female D ate:05/05/2024 Address:[address] [place], [place] [address] Pcp:Truong Colon MD Subjective: * Chief Complaints: [...] by , , who serves as , Plate Shear Operator/Seismograph Chief , additional Historian , and/who is physically present in exam room at time of visit.?ORIENTED:?person, place, and time.?FOOT EXAM:?Lower Extremity Neurological Exam performed:?Yes ?Visual exam of foot performed:?Yes ?Date?05/05/2024 ?Footwear Evaluation?Footwear Evaluation performed:?Yes??? Assessment: * Assessment: 1.?Tinea unguium - B35.1???2 .?Atherosclerosis of cherokee artery of both lower extremities, with unspecified presence of clinical manifestation - I70.203 (Primary)???3.?Pain in right toe(s) - M79.674???4.?Pain in left toe(s) - M79.675 ??5.?Other hammer toe(s) (acquired), right foot - M20.41???Specify :Chronic problem, Worse (4),Rx Management (4)???6.?Other hammer toe(s) (acquired), left foot - M20.42???Specify :Chronic problem, Worse (4),Rx Management (4)??? Plan: * Treatment: 2.?Tinea unguium?Procedure: 58531-HENEBES NAIL, 6 OR MORE 3.?Other hammer toe(s) [...] use of a nail nipper and/or dremel-type surface grinder tender, to a more viable healthy nail plate [...] to maintain effectiveness in symptomatic relief - 12540.?Keratoma Treatment:?Parring or Cutting of Benign Hyperkeratotic Lesion(s)?(-57) [...] instrumentation by the physician of record - 99528, Q8.? * Procedure Codes:?49583 DEBRI DE NAIL, 6 OR MORE, Modifiers: XS 06714 TRIM SKIN LESIONS, OVER 4, Modifiers: XS [...] Chapman DPM Date:?2024 Generated for Yovanny toussaint/Leah/Lois on:?08/01/2024 12:34 PM EDT History and Physical [...] evident and visible, plantar Forefoot, LEFT Orthopedic FOOTWEAR EVALUATION: worn, OT we re inspected and noted to be severely worn [...] by , , who serves as , Plate Shear Operator/Seismograph Chief , additional Historian , and/who is physically [...]
--- OUTSIDE RECORDS SUMMARY | 2024-08-01 12:35 | XMS_ITS | Encounter Summary ---
Author Organization [facility] Address [address] [place] [address] Phone Care Team Providers Care Manager Retirement Name Role Phone Truong Colon MD Primary Care Provider +1- [phone] Encounter Details Date Type Department Care Team (Late Contact Info) Description 07/31/2024 Documentation Only [facility] [address] [place] [address] Kylie Gabriel [address] [place] [address] Social History Tobacco Use Types [...] Visit [facility] [address] [place] [address] Romero Jimenez MD [address] [place] [address] [place] [address] documented as of this encounter Visit Diagnoses Not on filedocumented in this encounter Care Teams Manager Retirement Relationship Specialty Start Date End Date Truong Colon MD [address] [place] [address] PCP - General Internal Medicine 03/06/23 documented as of this encounter
--- OUTSIDE RECORDS SUMMARY | 2024-08-01 12:35 | XMS_ITS | Encounter Summary ---
Author Organization [facility] Address [address] [place] [address] Phone Care Team Providers Care Solid Waste Disposal Manager Name Role Phone Truong Colon MD Primary Care Provider +1- [phone] Encounter Details Date Type Department Care Team (Late Contact Info) Description 04/11/2022 Documentation Only [facility] [address] [place] [address] Kylie Gabriel [address] [place] [address] Social History Tobacco Use Types [...] Visit [facility] [address] [place] [address] Romero Jimenez MD [address] [place] [address] [place] [address] documented as of this encounter Visit Diagnoses Not on filedocumented in this encounter Care Teams Solid Waste Disposal Manager Relationship Specialty Start Date End Date Truong Colon MD [address] [place] [address] PCP - General Internal Medicine 03/06/23 documented as of this encounter
--- OUTSIDE RECORDS SUMMARY | 2024-08-01 12:35 | XMS_ITS | Encounter Summary ---
Author Organization [facility] Address [address] [place] [address] Phone Care Team Providers Care Account Development Associate Name Role Phone Truong Colon MD Primary Care Provider +1- [phone] Encounter Details Date Type Department Care Team (Late Contact Info) Description 12/21/2021 Documentation Only [facility] [address] [place] [address] Dimitris Suarez PA Social History [...] Upcoming Encounters Date Type Department Care Team ([facility] Contact Info) Description 08/13/2024 1:00 PM EDT Office Visit [facility] [address] [place] [address] Romero Jimenez MD [address] [place] [address] [place] [address] documented as of this encounter Visit Diagnoses Not on filedocumented in this encounter Care Teams Account Development Associate Relationship Specialty Start Date End Date Truong Colon MD [address] [place], [place] [id number] PCP - General Internal Medicine 03/06/23 documented as of this encounter
--- OUTSIDE RECORDS SUMMARY | 2024-08-01 12:35 | XMS_ITS | Encounter Summary ---
Author Organization [facility] Address [address] [place] [address] Phone Care Team Providers Care Musician Instrumental Name Role Phone Truong Colon MD Primary Care Provider +1- [phone] Encounter Details Date Type Department Care Team (Late Contact Info) Description 11/09/2021 Documentation Only [facility] [address] [place] [address] Dimitris Suarez PA Social History [...] Upcoming Encounters Date Type Department Care Team ([facility] Contact Info) Description 08/13/2024 1:00 PM EDT Office Visit [facility] [address] [place] [address] Romero Jimenez MD [address] [place] [address] [place] [address] documented as of this encounter Visit Diagnoses Not on filedocumented in this encounter Care Teams Musician Instrumental Relationship Specialty Start Date End Date Truong Colon MD [address] [place], [place] [id number] PCP - General Internal Medicine 03/06/23 documented as of this encounter
--- OUTSIDE RECORDS SUMMARY | 2024-08-01 12:35 | XMS_ITS | Encounter Summary ---
Author Organization [facility] Address [address] [place] [address] Phone Care Team Providers Care Automotive Repair Technician Name Role Phone Truong Colon MD Primary Care Provider +1- [phone] Encounter Details Date Type Department Care Team (Late Contact Info) Description 04/24/2024 Documentation Only [facility] [address] [place] [address] Kylie Gabriel [address] [place] [address] Social History Tobacco Use Types [...] [facility] [address] [place] [address] Romero Jimenez MD [address] [place] [address] [place] [address] documented as of this encounter Visit Diagnoses Not on filedocumented in this encounter Care Teams Automotive Repair Technician Relationship Specialty Start Date End Date Truong Colon MD [address] [place] [address] PCP - General Internal Medicine 03/06/23 documented as of this encounter
--- OUTSIDE RECORDS SUMMARY | 2024-08-01 12:35 | XMS_ITS | Encounter Summary ---
Author Organization [facility] Address [address] [place] [address] Phone Care Team Providers Care Processing Supervisor Name Role Phone Truong Colon MD Primary Care Provider +1- [phone] Encounter Details Date Type Department Care Team (Late Contact Info) Description 07/11/2024 Orders Only [facility] [address] [place] [address] Kylie Gabriel [address] [place] [address] Anemia in chronic kidney disease; [...] Visit [facility] [address] [place] [address] Romero Jimenez MD [address] [place] [address] documented as of this encounter Visit Diagnoses Diagnosis Anemia in chronic kidney disease Stage 3b chronic kidney disease (HCC) Iron deficiency anemia, not otherwise specified documented in this encounter Care Teams Processing Supervisor Relationship Specialty Start Date End Date Truong Colon MD [address] [place] [address] PCP - General Internal Medicine 03/06/23 documented as of this encounter
--- OUTSIDE RECORDS SUMMARY | 2024-08-01 12:35 | XMS_ITS | Encounter Summary ---
Author Organization [facility] Address [address] [place] [address] Phone Care Team Providers Care Expanded Duty Dental Assistant Name Role Phone Truong Colon MD Primary Care Provider +1- [phone] Encounter Details Date Type Department Care Team (Late Contact Info) Description 01/21/2024 Orders Only [facility] [address] [place] [address] Dimitris Suarez PA Stage 3a [...] [facility] [address] [place] [address] Romero Jimenez MD [address] [place] [address] [place] [address] documented as of this encounter Visit Diagnoses Diagnosis Stage 3a chronic kidney disease (HCC) Essential hypertension Peripheral vascular disease (HCC) Peripheral vascular disease Renal osteodystrophy documented in this encounter Care Teams Expanded Duty Dental Assistant Relationship Specialty Start Date End Date Truong Colon MD [address] [place] [address] PCP - General Internal Medicine 03/06/23 documented as of this encounter
--- OUTSIDE RECORDS SUMMARY | 2024-08-01 12:35 | XMS_ITS | Clinical Summary ---
Author Organization [facility] Address [address] [place] [address] Phone Care Team Providers Care Casino Assistant Manager Name Role Phone Truong Colon MD Primary Care Provider +1 [phone] Allergies Active Allergy Reactions Criticality Noted Date [...] left breast in female, estrogen receptor positive ([facility] V24, [facility] V28) 07/03/2023 Iron deficiency anemia 05/18/2022 Acquired hypothyroidism 03/28/2017 Gastroesophageal reflux disease without esophagi tis 03/28/2017 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 Encounters Date Type Department Care Team Description 07/17/2024 10:53 AM EDT - 07/17/2024 11:59 PM EDT Hospital [facility] [address] [id number] Encounter for screening mammogram for malignant neoplasm of breast Discharge Disposition: Home or Self Care 06/09/2024 Telephone [facility] Hematology Oncology [address] [place] [place] [phone] Jillian-Jennifer Brooks MD from Last 3 Months Surgical History Surgery Date Site/Laterality Comments LUMBAR DISC SURGERY PROCEDURE:LUMBAR DISC SURGERY Medical History Medical History Date Comments Malignant neoplasm of upper- outer quadrant of left female breast ([facility] V24, [facility] V28) DX:Malignant neoplasm of upp er-outer quadrant of left female breast (HCC) Hypertension DX:Hypertension Vitamin D deficiency DX:Vitamin D deficiency Hypothyroidism DX:Hypothyroidis m Family History Medical History Relation Name Comments Breast cancer Mother Relation Name Status Comments Mother Social History Tobacco Use Types Packs/Day Years Used Date Smoking Tobacco: Never Smokeless Tobacco: Never Alcohol Use Standard Drinks/Week Comments No 0 (1 standard drink = 0.6 oz pur e alcohol) Comments No Sex and Gender Information Value Date Recorded Sex Assigned at Not on file Legal Sex Female 7:32 PM EST Gender Identity Not on file Sexual Orientation Not on file Obstetrics History Para Term AB IAB SAB Ectopic Multiple Livin g Live Births 2 Last Filed Vital Signs Vital Sign Reading Time Taken Comments Blood Pressure 120/56 10/03/2023 11:30 AM EDT Sitting Left arm Pulse 62 10/03/2023 11:30 AM EDT Temperature - - Respiratory Rate - - Oxygen Saturation - - Inhaled Oxygen Concentration - - Weight 106 kg (233 lb) 07/17/2024 11:09 AM EDT Height 177.8 cm (5' 10 ) 07/17/2024 11: 09 AM EDT Body Mass Index 33.43 07/17/2024 11:09 AM EDT Plan of Treatment Upcoming Encounters Date Type Department Care Team (Late st Contact Info) Description 10/02/2024 11:00 AM EDT Office Visit [facility] Hematology Oncology [address] [place] [address] Jillian-Jennifer Gonzalez MD [address] [place] [address] Health Maintenance Due Date Last Done Comments Zoster Vaccines (1 of 2) 03/23/2014 01/26/2014 RSV Immunization Adult Patients (1 - 1-dose 75+ series) 08/30/2018 COVID-19 Vaccine (3 - Moderna risk series) 09/14/2020 08/17/2020, 07/20/2020 Cholesterol Screening (Lipid Panel) 03/31/2022 Colorectal Cancer Screening: Colonoscopy 03/31/2022 Depression Screening 03/31/2022 Falls Risk Assessment 03/31/2022 Medicare Annual Wellness Visit 03/31/2022 Social Influencers of Health Screening 03/31/2022 Hypertension/CHF/CAD Annual BMP Blood Test 04/07/2022 Influenza Vaccine (Season Ended) 2024 02/27/2022, 05/10/2021, 01/29/2020, Additional history exists DTaP,Tdap,and Td Vaccines (2 - Td or Tdap) 05/10/2031 05/10/2021 Osteoporosis Screening (Bone Density Screening) 10/08/2031 10/07/2021, 05/05/2019 Hepatitis B Vaccines Completed 08/30/2015, 04/05/2015, 03/01/2015 Pneumococcal Vaccine: 50+ Years Completed 03/18/2019, 04/07/2016, [...] age to complete this topic Meningococcal B Vaccine Aged Out No l onger eligible based on patient's age to complete this topic RSV Immunization Patients Under 20 months Aged Out No longer eligible based on patient's age to complete this topic Varicella Vaccines Aged Out No longer eligible based on patient's age to complete this topic Procedures Procedure Name Priority Date/Time Associated Diagnosis Comments MG MAMMO DIGITAL SCREENING W RODGER BILAT Routine 07/17/2024 11:15 AM EDT Encounter for screening mammogram for malignant neoplasm of breast DXA BONE DENSITY STUDY 1+ SITS AXIAL SKEL Routine 10/07/2021 10:23 AM EDT Other specified disorders of bone density and structure, left thigh from Last 3 Months or Most Recently Relevant to Health Maintenance Results * MG Mammo Digital Screening w Rodger bilat (07/17/2024 11:15 AM EDT) Anatomical Region Laterality Modality Breast Bilateral Mammography 07/22/2024 4:10 PM EDT Impressions 07/22/2024 4:14 PM EDT No evidence of breast malignancy. BI-RADS CATEGORY: 1 - NEGATIVE RECOMMENDATION: Screening bilateral mammogram is recommended in 1 year. Mammo Location: [facility], [address] [place] [address], [address], . -------- FINAL REPORT -------- Dictated By: Lilly Ayala Dictated Date: 07/22/2024 16:10 ET Assigned Physician: Lilly Ayala Reviewed and Electronically Signed By: Lilly Ayala Signed Date: 07/22/2024 16:14 ET Workstation ID: [id number] Transcribed By: Self Edit Transcribed Date: 07/22/2024 16:10 ET Narrative 07/22/2024 4:14 PM EDT CLINICAL: 78 years old, Female, routine annual exam. COMPARISON: 06/25/2023, 06/22/2022, 06/20/2021, 06/17/2020, 06/16/2019 ?? TECHNIQUE: Bilateral MLO and CC views were obtained digitally with 3-D mammogram (digital breast tomosynthesis). Computer-aided detection was utilized in evaluation of this exam (CAD). FINDINGS: There is no evidence of suspicious mass or architectural distortion. ??No worrisome calcifications are evident. ??There has been no significant change from prior exam(s). ? Stable postsurgical scar in the left breast. BREAST DENSITY: A - The breasts are almost entirely fatty. Procedure Note Lilly Ayala MD - 07/22/2024 CLINICAL: 78 years old, Female, routine annual exam. COMPARISON: 06/25/2023, 06/22/2022, 06/20/2021, 06/17/2020, 06/16/2019 TECHNIQUE: Bilateral MLO and CC views were obtained digitally with 3-Dmammogram (digital breast tomosynthesis). Computer-aided detection wasutilized in evaluation of this exam (CAD). FINDINGS: There is no evidence of suspicious mass or architectural distortion. Noworrisome calcifications are evident. There has been no significantchange from prior exam(s). Stable postsurgical scar in the leftbreast. BREAST DENSITY: A - The breasts are almost entirely fatty. IMPRESSION: No evidence of breast malignancy. BI-RADS CATEGORY: 1 - NEGATIVE RECOMMENDATION: Screening bilateral mammogram is recommended in 1 year. Mammo Location: [facility], [address] [place] [address], [address], . -------- FINAL REPORT -------- Dictated By: Lilly Ayala Dictated Date: 07/22/2024 16:10 ET Assigned Physician: Lilly Ayala Reviewed and Electronically Signed By: Lilly Ayala Signed Date: 07/22/2024 16:14 ET Workstation ID: [id number] Transcribed By: Self Edit Transcribed Date: 07/22/2024 16:10 ET Jennifer Ca MD IMG BI PROCEDURES F inal Result * DXA BONE DENSITY STUDY 1+ LYLA MANN SKEL (10/07/2021 10:23 AM EDT) Anatomical Region Laterality Modality Bone Densitometr y 05/10/2021 11:5 1 AM EST Narrative 10/07/2021 4:32 PM EDT Clinical history: other osteoporosis Scans of the lumbar spine and hips were performed on a Everyday.me/Eyeota fan beam bone densitometer. ? Bone mineral [...] spine and hips were performed on a Everyday.me/Eyeotafan beam bone densitometer. Bone mineral density measurements [...] Most Recently Relevant to Health Maintenance Insurance MEDICAID - [place] [employer] MEDICARE Member Subscriber Plan / Payer (Ef fective 2012-Present) Name:Jacinda Blancas Relation to Subscriber:Self Name:Jacinda Blancas Payer ID:[id number] Group ID:[id number] Type:Not on file Address: [address] [place] [address] Care Teams Casino Assistant Manager Relationship Specialty Start Date End Date Truong Colon MD [address] [place] [address] [address] [place], [place] PCP - General 05/19/22
--- OUTSIDE RECORDS SUMMARY | 2024-08-01 12:35 | XMS_ITS | Encounter Summary ---
Author Organization [facility], Address [address] [place] [address] Phone Care Team Providers Care Bushler Name Role Phone Truong Colon MD Primary Care Provider +1- [phone] Encounter Details Date Type Department Care Team (Late Contact Info) Description 01/23/2024 Documentation Only [facility], - [place] [address] [place] [address] Jasmin Dumont [address] [place] [address] Social History Tobacco Use Types Packs/Day [...] Visit [facility], [address] [place] [address] Romero Jimenez MD [address] [place] [address] documented as of this encounter Visit Diagnoses Not on filedocumented in this encounter Care Teams Bushler Relationship Specialty Start Date End Date Truong Colon MD [address] [place] [address] PCP - General Internal Medicine 03/06/23 documented as of this encounter
== END 2024-08-01 12:25 | disposition home or self-care (01) ==
LOC: HO.PMC 11:33
PROVIDERS: PCP Internal Medicine; Visit Provider Internal Medicine
DX: M54.16 Radiculopathy, lumbar region (principal)
CPT/HCPCS: 99214

== ENCOUNTER → 2024-08-01 11:32 | Outpatient (BNVA) | payer OTHER, SELFPAY | PROVIDERS: PCP Internal Medicine; Visit Provider Internal Medicine | DX: M54.16 Radiculopathy, lumbar region (principal) | CPT/HCPCS: 99212 ==

== ENCOUNTER 2024-08-11 12:13 | Outpatient (REF) | payer OTHER, SELFPAY ==
--- OUTSIDE RECORDS SUMMARY | 2024-08-11 12:19 | XMS_ITS | Clinical Summary ---
Author Organization [facility] Address [address] [place] [address] Care Team Providers Care Electric System Operator Name Role Phone Truong Colon MD Primary Care Provider +1- [phone] Allergies Active Allergy Reactions Criticality Noted Date [...] age to complete this topic Care Teams Electric System Operator Relationship Specialty Start Date End Date rTuong Colon MD [address] [place] [id number] PCP - General Internal Medicine 05/19/22
--- OUTSIDE RECORDS SUMMARY | 2024-08-11 12:19 | XMS_ITS | Encounter Summary ---
Author Organization [facility] Address [address] [place] [address] Phone Care Team Providers Care Rn Review Name Role Phone Truong Colon MD Primary Care Provider +1- [phone] Encounter Details Date Type Department Care Team (Late Contact Info) Description 06/03/2024 Documentation Only [facility] [address] [place] [address] Kylie Gabriel [address] [place] [address] Social History Tobacco Use Types [...] Department Care Team (Late Contact Info) Description 08/12/2024 1:30 PM EDT Office Visit [facility] [address] [place] [address] Romero Jimenez MD [address] [place] [address] [place] [address] documented as of this encounter Visit Diagnoses Not on filedocumented in this encounter Care Teams Rn Review Relationship Specialty Start Date End Date Truong Colon MD [address] [place] [address] PCP - General Internal Medicine 03/06/23 documented as of this encounter
--- OUTSIDE RECORDS SUMMARY | 2024-08-11 12:19 | XMS_ITS ---
Author Organization [facility] Address [address] [place] [address] Care Team Providers Care Cell Room Supervisor Name Role Phone Truong Colon MD Primary Care Provider +1- [phone] Active Problems Problem Noted Date Diagnosed Date Iron deficiency anemia 05/18/2022 Malignant neoplasm of upper- outer quadrant of left breast in female, estrogen receptor positive 03/28/2017 Gastroesophageal reflux disease without esophagi tis 03/28/2017 Acquired hypothyroidism 03/28/2017 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 Current Oncology Plans No current plan information found. Past Plans Radiation Treatments * No radiation treatments are documented [facility] this [facility]. Treatments may have been administered in another system.
--- OUTSIDE RECORDS SUMMARY | 2024-08-11 12:19 | XMS_ITS | Encounter Summary ---
Author Organization [facility] Address [address] [place] [address] Phone Care Team Providers Care Mortar Carrier Name Role Phone Truong Colon MD Primary Care Provider +1- [phone] Encounter Details Date Type Department Care Team (Late Contact Info) Description 05/27/2024 Documentation Only [facility] [address] [place] [address] Kylie Gabriel [address] [place] [address] Social History Tobacco Use Types [...] [facility] [address] [place] [address] Romero Jimenez MD [address] [place] [address] [place] [address] documented as of this encounter Visit Diagnoses Not on filedocumented in this encounter Care Teams Mortar Carrier Relationship Specialty Start Date End Date Truong Colon MD [address] [place] [address] PCP - General Internal Medicine 03/06/23 documented as of this encounter
--- OUTSIDE RECORDS SUMMARY | 2024-08-11 12:19 | XMS_ITS ---
Author Organization [facility] Address [address] [place] [address] Care Team Providers Care Railroad Brake Operator Name Role Phone Isaiah DURAN, [place] Primary Care Provider Boby Laguerre Unavailable [phone] Allergies Allergen (clinical drug ingredient) Drug/Non Drug [...] Ordered Date Performed Result Body Sit e 23810-FOQTSGE NAIL, 6 OR MORE 01/24/2024 N/A 40624-Bkzm Destruction, 1-14 01/24/2024 N/A 99371-XXTP SKIN LESIONS, OVER 4 01/24/2024 N/A Encounters Encounter Location Date Provider Diagnosis [facility] [place] [address] [place] [address] 01/24/2024 Boby Chapman Atherosclerosis of [place] artery of both lower extremities, with unspecified presence of clinical manifestation I70.203 ; Plantar wart B07.0 ; Tinea unguium B35.1 ; Pain in right toe(s) M79.674 ; Pain in left toe(s) M79.675 ; Left foot pain M79.672 and Xerosis of skin L85.3 Assessments Encounter Date Diagnosis (ICD Code) Assessment Notes Treatment Notes Treatment Clinical Notes Section Notes 01/24/2024 Atherosclerosis of [place] artery of both lower extremities, with unspecified [...] 01/24/2024 Pending Test Test Name Order Date 34759-EHSEOSJ NAIL, 6 OR MORE 01/24/2024 28999-Imhu Destruction, 1-14 01/24/2024 69201-AGRG SKIN LESIONS, OVER 4 01/24/20 24 Next Appt Details Follow Up: 2 Months, Reason: Provider Name:Boby Chapman , 10/30/2024 02:45:00 PM, [address], [place], [address], Procedure Notes * Category Sub-Category Detail Notes Wart Treatment Procedure Verrucae were de brided to pin-point bleeding margins with sterile 15 surgical blade, silver nitrate chemocautery applied, recomm. immune-boosting meds such as zinc, recomm. follow up with topical chemosurgical agents, Pt defers any other forms of tx - 08868 Debride Nail 6-10 Nail debridement Performance o f this nail treatment by a nonprofessional would put this patients foot and overall health at risk. Therefore, nail debridement was performed extensively to reduce/remove overall nail length, girth, thickness, subungual debris, and necrotic tissue, by manual and/or electrical means through the use of a nail nipper and/or dremel-type broach grinder, to a more viable healthy nail plate or bed tissue 6-10. Silver nitrate used for any petechial bleeding as necessary. Definitive antifungal treatment options have been reviewed and discussed with the patient. The patient chooses, no pharmaceutical tx - 91191 Keratoma Treatment Parring or Cutting o f Benign Hyperkeratotic Lesion(s) (-57) More than 4 Lesions - The Benign hyperkeratotic lesions, as described above were pared, and/or cut utilizing a sterile 15 blade, tissue nippers, and/or dremel - 19550 , Q8 Progress Notes * Tommie BLANCASOB:[birth year] (78 yo F)Acc No.[id number]:01/24/2024 Progress Note Patient:?Jacinda BLANCAS Provider:?Boby Chapman DPM :1945???Age:78 Y???Sex:Female D ate:01/24/2024 Address:[address] [place] [phone] Pcp:Truong Colon MD Subjective: * Chief Complaints: [...] wart - B07.0 (Malka ngozi)???Specify :LEFT???2.?Atherosclerosis of n[place] artery of both lower extremities, with unspecified presence of clinical manifestation - I70.203???3.?Tinea unguium - B35.1???4.?Pain in right toe(s) - M79.674???5.?Pain in left toe(s) - M79.675???6.?Left foot pain - M79.672???7.?Xerosis of skin - L85.3???Specify :Acute problem, Stable (1=3),Response to treatment - Improvement??? Plan: * Treatment: 2.?Atherosclerosis of [place] artery of both lower extremities, with unspecified presence of clinical manifestation?Procedure: 33896-VUMS SKIN LESIONS, OVER 4 3.?Tinea unguium?Procedure: 44476-XZRCYOV NAIL, 6 OR MORE 4.?Xerosis of skin? [...] use of a nail nipper and/or dremel-type broach grinder, to a more viable healthy nail plate or bed tissue 6-10. Silver nitrate used for any petechial bleeding as necessary. Definitive antifungal treatment options have been reviewed and discussed with the patient. The patient chooses, no pharmaceutical tx - 54251.?Keratoma Treatment:?Parring or Cutting of Benign Hyperkeratotic Lesion(s)?(-57) More than 4 Lesions - The Benign hyperkeratotic lesions, as described above were pared, and/or cut utilizing a sterile 15 blade, tissue nippers, and/or dremel - 19806 , Q8.?Wart Treatment:?Procedure?Verrucae were debrided to pin-point bleeding margins with sterile 15 surgical blade, silver nitrate chemocautery applied, recomm. immune-boosting meds such as zinc, recomm. follow up with topical chemosurgical agents, Pt defers any other forms of tx - 82270.? * Procedure Codes:?25144 DEBRI DE NAIL, 6 OR MORE, Modifiers: XS 11225 Wart Destruction, 1-14, Modifiers: XS 67219 TRIM SKIN LESIONS, OVER 4, Modifiers: XS [...] Chapman DPM Date:?2023 Generated for Yovanny toussaint/Leah/Lois on:?08/11/2024 12:19 PM EDT History and Physical Notes * [...]
--- OUTSIDE RECORDS SUMMARY | 2024-08-11 12:19 | XMS_ITS | Encounter Summary ---
Author Organization [facility] Address [address] [place] [address] Phone Care Team Providers Care Center Mgr Name Role Phone Truong Colon MD Primary Care Provider [phone] Encounter Details Date Type Department Care Team (Late Contact Info) Description 05/16/2024 Orders Only [facility] [address] [address] Kylie Gabriel [address] [place] [address] Anemia in chronic kidney disease; [...] Care Team (Late st Contact Info) Description 08/12/2024 1:30 PM EDT Office Visit [facility] [address] [place] [address] Romero Jimenez MD [address] [place] [address] documented as of this encounter Visit Diagnoses Diagnosis Anemia in chronic kidney disease Stage 3b chronic kidney disease (HCC) Iron deficiency anemia, not otherwise specified documented in this encounter Care Teams Center Mgr Relationship Specialty Start Date End Date Truong Colon MD [address] [place] [address] PCP - General Internal Medicine 03/06/23 documented as of this encounter
--- OUTSIDE RECORDS SUMMARY | 2024-08-11 12:19 | XMS_ITS | Encounter Summary ---
Author Organization [facility] Address [address] [place] [address] Phone Care Team Providers Care Business Practices Supervisor Name Role Phone Truong Colon MD Primary Care Provider [phone]- [phone] Encounter Details Date Type Department Care Team (Late Contact Info) Description 05/12/2021 Documentation Only [facility] [address] [place] [address] Eligio Meza MD [address] [place] [address] [place] [address] Social History Tobacco Use Types [...] [facility] [address] [place] [address] Romero Jimenez MD [address] [place] [address] documented as of this encounter Visit Diagnoses Not on filedocumented in this encounter Care Teams Business Practices Supervisor Relationship Specialty Start Date End Date Truong Colon MD [address] [place] [address] PCP - General Internal Medicine 03/06/23 documented as of this encounter
--- OUTSIDE RECORDS SUMMARY | 2024-08-11 12:19 | XMS_ITS | Patient Health Record ---
Author Organization [facility] [place] Address [address] [place] [address] Care Team Providers Care Property Adjuster Name Role Phone Isaiah DURAN, [place] Primary Care Provider Boby Laguerre Unavailable [phone] Allergies Allergen (clinical drug ingredient) Drug/Non Drug [...] Problem Acquired hammer toe of right foot (9293259829420232 ) Other hammer toe(s) (acquired), right foot (M20.41) Active confirmed Response to treatment, Improvemen t Problem Acquired hammer toe of left foot (3344879904411756 ) Other hammer toe(s) (acquired), left foot (M20.42) Active confirmed Response to treatment, Improvemen t Problem Atherosclerosis of [place] arteries of the extremities (208855741065573) Atherosclerosis of [place] artery of both lower extremities, with unspecified presence of clinical manifestation (I70.203) Active confirmed Vital Signs Blood pressure diastolic 64 mm Hg 07/31/2024 Height 5 ft 9in in 07/31/2024 Blood pressure systolic 127 mm Hg 07/31/2024 Weight 233 lbs 07/31/2024 BMI 34.4 kg/m2 07/31/2024 Procedures Procedure Date Ordered Date Performed Result Body Sit e 29088-VZCNFHS NAIL, 6 OR MORE 08/30/2023 N/A 25476-Kyys Destruction, 1-14 08/30/2023 N/A 23079-Drmkefgd Plate 08/30/2023 N/A 40818-Vgytsbkb Plate Each Additional 08/30/2023 N/A 10873-DDMD SKIN LESIONS, OVER 4 08/30/2023 N/A 05739-YENKRJR NAIL, 6 OR MORE 11/08/2023 N/A 03657-Ndnl Destruction, 1-14 11/08/2023 N/A 76619-[place] Plate 11/08/2023 N/A 57577-Jwwahruf Plate Each Additional 11/08/2023 N/A 08375-NMNP SKIN LESIONS, OVER 4 11/08/2023 N/A 11641-CURZMPA NAIL, 6 OR MORE 01/24/2024 N/A 73597-Izmx Destruction, 1-14 01/24/2024 N/A 76614-TNRB SKIN LESIONS, OVER 4 01/24/2024 N/A 00845-KDTPCWS NAIL, 6 OR MORE 05/05/2024 N/A 22408-EBQF SKIN LESIONS, OVER 4 05/05/2024 N/A 80704-ITISYOZ NAIL, 6 OR MORE 07/31/2024 N/A 61023-HCBK SKIN LESIONS, OVER 4 07/31/2024 N/A Encounters Encounter Location Date Provider Diagnosis [address] [address] 08/30/2023 Boby Chapman Atherosclerosis of [place] artery of both lower extremities, with unspecified presence of clinical manifestation I70.203 ; Plantar wart B07.0 ; Tinea unguium B35.1 ; Pain in right toe(s) M79.674 ; Pain in left toe(s) M79.675 ; Ingrown nail L60.0 and Left foot pain M79.[address] [address] 11/08/2023 Boby Chapman Atherosclerosis of [place] artery of both lower extremities, with unspecified presence of clinical manifestation I70.203 ; Plantar wart B07.0 ; Tinea unguium B35.1 ; Pain in right toe(s) M79.674 ; Pain in left toe(s) M79.675 ; Ingrown nail L60.0 ; Left foot pain M79.672 and Xerosis of skin L85.[address] [address] 01/24/2024 Boby Chapman Atherosclerosis of [place] artery of both lower extremities, with unspecified presence of clinical manifestation I70.203 ; Plantar wart B07.0 ; Tinea unguium B35.1 ; Pain in right toe(s) M79.674 ; Pain in left toe(s) M79.675 ; Left foot pain M79.672 and Xerosis of skin L85.[address] [address] 05/05/2024 Boby Chapman Atherosclerosis of [place] artery of both lower extremities, with unspecified presence of clinical manifestation I70.203 ; Tinea unguium B35.1 ; Pain in right toe(s) M79.674 ; Pain in left toe(s) M79.675 ; Other hammer toe(s) (acquired), right foot M20.41 and Other hammer toe(s) (acquired), left foot M20.[address] [address] 07/31/2024 Boby Chapman Atherosclerosis of [place] artery of both lower extremities, with unspecified [...] wart (ICD-10 - B07.0) 08/30/2023 Atherosclerosis of [place] artery of both lower extremities, with unspecified presence of clinical manifestation (ICD-10 - I70.203) 11/08/2023 Plantar wart (ICD-10 - B07.0) 11/08/2023 Atherosclerosis of [place] artery of both lower extremities, with unspecified presence of clinical manifestation (ICD-10 - I70.203) 01/24/2024 Plantar wart (ICD-10 - B07.0) 01/24/2024 Atherosclerosis of [place] artery of both lower extremities, with unspecified presence of clinical manifestation (ICD-10 - I70.203) 05/05/2024 Tinea unguium (ICD-10 - B35.1) 05/05/2024 Atherosclerosis of [place] artery of both lower extremities, with unspecified presence of clinical manifestation (ICD-10 - I70.203) 07/31/2024 Tinea unguium (ICD-10 - B35.1) 07/31/2024 Atherosclerosis of [place] artery of both lower extremities, with unspecified [...] Treatment Pending Test Test Name Order Date 47517-YLWIZPG NAIL, 6 OR MORE 03/21/2017 32100-BQRHKME NAIL, 6 OR MORE 05/30/2017 24627-KJCLWPK NAIL, 6 OR MORE 08/06/2017 18106-FTRNBBB NAIL, 6 OR MORE 10/25/2017 13821-TAGWHMX NAIL, 6 OR MORE 03/20/2018 85225-HHKMCLL NAIL, 6 OR MORE 06/13/2018 82673-FQLPRPR NAIL, 6 OR MORE 01/07/2018 45265-NLOHFAJ NAIL, 6 OR MORE 08/14/2018 89982-UXVHBTK NAIL, 6 OR MORE 10/17/2018 03649-HTEBRAD NAIL, 6 OR MORE 01/16/2019 41400-XRGWRXC NAIL, 6 OR MORE 04/03/2019 94566-DIBISIO NAIL, 6 OR MORE 06/16/2019 59120-FRMUZIB NAIL, 6 OR MORE 08/27/2019 35964-VVLQHNQ NAIL, 6 OR MORE 12/18/2019 14649-OGSGYCO NAIL, 6 OR MORE 05/06/2020 02860-BEIEHNW NAIL, 6 OR MORE 07/15/2020 77053-DWVPYFV NAIL, 6 OR MORE 09/29/2020 56965-OXEZEJA NAIL, 6 OR MORE 12/02/2020 13189-LOBNEVU NAIL, 6 OR MORE 02/17/2021 73551-JWCVJIA NAIL, 6 OR MORE 06/16/2021 48051-KMUEKYN NAIL, 6 OR MORE 08/29/2021 02397-VPOHXRF NAIL, 6 OR MORE 11/10/2021 37727-GDZCECA NAIL, 6 OR MORE 01/19/2022 72670-QFXPUZH NAIL, 6 OR MORE 04/05/2022 26535-XNEGPXE NAIL, 6 OR MORE 06/15/2022 76926-ZRYGYSX NAIL, 6 OR MORE 08/24/2022 92501-TINEFKP NAIL, 6 OR MORE 11/16/2022 95340-SYKIUZE NAIL, 6 OR MORE 01/25/2023 62625-VUKNIRE NAIL, 6 OR MORE 04/11/2023 86897-FTAHBPB NAIL, 6 OR MORE 06/27/2023 28005-UBUJDCN NAIL, 6 OR MORE 08/30/2023 59473-IFSZRBD NAIL, 6 OR MORE 11/08/2023 51187-NBTBXLB NAIL, 6 OR MORE 01/24/2024 22934-JQMKCQJ NAIL, 6 OR MORE 05/05/2024 23094-OIAPLPX NAIL, 6 OR MORE 07/31/2024 00699-CHXKYRT NAIL, 1-5 11/01/2016 27471-ZDUPKSA NAIL, 1-5 01/03/2017 94214-FSRGTOA NAIL, 1-5 11/15/2015 22068-YHBBSOL NAIL, 1-5 01/24/2016 56501-SXSPIDJ NAIL, 1-5 04/05/2016 13708-UXVWLVJ NAIL, 1-5 06/14/2016 21717-HASJXTX NAIL, -5 08/23/2016 08393-Cyqu Destruction, -14 11/01/2016 28637-Mjtr Destruction, -14 01/03/2017 27956-Qbse Destruction, -14 03/21/2017 91923-Cxxj Destruction, -14 05/30/2017 22332-Zcmd Destruction, -14 08/06/2017 63709-Rsqn Destruction, -14 05/06/2020 72103-Xmcm Destruction, -14 12/18/2019 46579-Jkry Destruction, 05-0608/27/2019 04183-Vwqe Destruction, 05-0606/16/2019 74782-Avem Destruction, -14 04/03/2019 27805-Tqlf Destruction, -14 01/16/2019 73453-Lobt Destruction, -14 10/17/2018 76287-Npyt Destruction, 05-0608/14/2018 63679-Pbya Destruction, 05-0606/13/2018 15599-Rcpd Destruction, 05-0610/25/2017 80387-Tybx Destruction, 05-0601/07/2018 71733-Mlzr Destruction, 05-0608/30/2023 66244-Msrk Destruction, 05-0606/27/2023 98067-Xabm Destruction, 05-0604/11/2023 96277-Kmxx Destruction, 05-0601/25/2023 85259-Ruld Destruction, 05-0611/16/2022 65291-Yhmc Destruction, 05-0608/24/2022 63967-Voce Destruction, 05-0606/15/2022 65672-Lqod Destruction, 05-0604/05/2022 20741-Vysi Destruction, 05-0601/19/2022 53647-Srpr Destruction, 05-0606/16/2021 14583-Hhjh Destruction, 05-0603/20/2018 84182-Lflw Destruction, 05-0611/10/2021 49265-Enhz Destruction, 05-0608/29/2021 12675-Urpe Destruction, 05-0602/17/2021 47677-Arfx Destruction, 05-0612/02/2020 86053-Iewy Destruction, 05-0609/29/2020 21418-Jyxc Destruction, 05-0607/15/2020 74207-Assc Destruction, 05-0601/24/2024 44811-Zlbv Destruction, 05-0611/08/2023 44765-Qhpwcjpa Plate 11/08/2023 77467-Xtqeaowj Plate 09/29/2020 49698-Aexacnsa Plate 12/02/2020 55657-Hzoomjrr Plate 02/17/2021 71904-Hypmekzl Plate 06/16/2021 04474-Hnfgeief Plate 08/29/2021 49328-Qdpxbuxh Plate 11/10/2021 97709-Einezemv Plate 01/19/2022 29265-Oytasein Plate 04/05/2022 84023-Cjdjszaq Plate 06/15/2022 43103-Ibpuyyyf Plate 08/24/2022 63425-Lkfgivjr Plate 11/16/2022 70814-Gtqdzhrl Plate 01/25/2023 93698-Dvpovspk Plate 04/11/2023 50577-Mmnljgkm Plate 06/27/2023 69071-Vkwgyimr Plate 08/30/2023 18941-Qtemtcev Plate 12/18/2019 27339-Bpgblraq Plate 05/06/2020 20878-Wuwwdmln Plate 07/15/2020 30901-Lwfroreo Plate 11/01/2016 00861-Tnbhkbbp Plate Each Additional 12/2023 34734-Ftjlxqel Plate Each Additional 09/2023 08564-Jrdpeimo Plate Each Additional 02003-Spleecty Plate Each Additional 08/2022 03391-Ixrmsccs Plate Each Additional 77500-Ymtvrnzj Plate Each Additional 07/2022 22227-Zgnutuim Plate Each Additional 66335-Pcobclxl Plate Each Additional 86328-Hmduwubv Plate Each Additional 80054-Qjwjfvpu Plate Each Additional 99519-ZFRD SKIN LESIONS, OVER 4 11/08/19 24 12493-YHXF SKIN LESIONS, OVER 4 01/24/20 24 28942-MHJW SKIN LESIONS, OVER 4 05/05/19 38938-CDUD SKIN LESIONS, OVER 4 08/01/19 50168-AVDO SKIN LESIONS, OVER 4 06/16/19 95617-KZTX SKIN LESIONS, OVER 4 01/20/20 57104-KEBS SKIN LESIONS, OVER 4 11/11/19 11673-IOPR SKIN LESIONS, OVER 4 08/30/19 88451-WPNX SKIN LESIONS, OVER 4 02/18/20 21 87204-ZVUY SKIN LESIONS, OVER 4 12/03/19 68324-QNXK SKIN LESIONS, OVER 4 09/30/19 21 65463-MDVE SKIN LESIONS, OVER 4 07/16/19 64911-SCLF SKIN LESIONS, OVER 4 04/05/20 50643-ORZB SKIN LESIONS, OVER 4 06/15/19 23 12191-BMXV SKIN LESIONS, OVER 4 08/25/19 92061-VWXR SKIN LESIONS, OVER 4 11/17/19 23 10291-QJYC SKIN LESIONS, OVER 4 01/26/20 71084-OYWY SKIN LESIONS, OVER 4 12/20/20 23 73834-WSRC SKIN LESIONS, OVER 4 06/27/19 24 35708-GLPM SKIN LESIONS, OVER 4 08/30/19 24 54283-SOIA SKIN LESIONS, OVER 4 03/21/20 17 38758-XKLG SKIN LESIONS, OVER 4 01/04/20 17 11683-WHJG SKIN LESIONS, OVER 4 10/26/19 18 65412-UJVB SKIN LESIONS, OVER 4 08/07/19 18 14793-JIET SKIN LESIONS, OVER 4 05/30/19 18 61787-OYSP SKIN LESIONS, OVER 4 11/02/19 17 44733-EJTI SKIN LESIONS, OVER 4 06/14/19 17 35306-XQDA SKIN LESIONS, OVER 4 04/05/20 16 95227-KKEY SKIN LESIONS, OVER 4 08/24/19 17 45890-QZTK SKIN LESIONS, OVER 4 01/24/20 16 59031-GGIP SKIN LESIONS, OVER 4 11/15/19 16 04879-POJM SKIN LESIONS, OVER 4 08/16/19 16 25762-ZWTJ SKIN LESIONS, OVER 4 05/06/19 21 57194-RLGY SKIN LESIONS, OVER 4 12/18/19 20 35874-IOFO SKIN LESIONS, OVER 4 08/27/19 20 22132-VQQW SKIN LESIONS, OVER 4 04/03/20 19 70197-BCWP SKIN LESIONS, OVER 4 06/16/19 20 33690-MMUC SKIN LESIONS, OVER 4 01/08/20 18 44570-IHKX SKIN LESIONS, OVER 4 06/13/19 19 20583-XJUA SKIN LESIONS, OVER 4 08/15/19 19 41758-UFEN SKIN LESIONS, OVER 4 03/20/20 18 69549-JHGF SKIN LESIONS, OVER 4 10/18/19 19 00112-CBFS SKIN LESIONS, OVER 4 01/17/20 19 T1835-OXARSPTJ DYSTROPHIC NAILS ANY # I8623-LRYGOGJD DYSTROPHIC NAILS ANY # G5602-KAMWRYSM DYSTROPHIC NAILS ANY # L1218-VFVQTVWX DYSTROPHIC NAILS ANY # E6607-XMWSLWXW DYSTROPHIC NAILS ANY # R7163-PXKSCBAV DYSTROPHIC NAILS ANY # J1827-HZHMFXZE DYSTROPHIC NAILS ANY # D5616-IANPVQST DYSTROPHIC NAILS ANY # Next Appt Details Provider Name:Boby Chapman , 10/30/2024 02:45:00 PM, [address], [address], [place], [address], Insurance Providers Payer Name Payer Address Payer Phone Subscriber Number Group Number Insured Name Patient Relationship to Insured Coverage Start Date Coverage End Date [facility] [employer] Claims [address] [place] [phone] [id number] Jacinda Benavidez Self - patient is the insured Medical (General) History Medical History History ICD Code Anemia Anxiety Arthritis Back,Hip,and Knee pain Cataracts High blood pressure Liver disease Reflux Thyroid disorder Surgical History Surgery Date(Month/Year) gall bladder 12/11/2014 Unspecified Right Hand SX 03/13/17
--- OUTSIDE RECORDS SUMMARY | 2024-08-11 12:20 | XMS_ITS | Continuity of Care Document ---
Author Organization [facility] Address [address] [place] [address] Phone Care Team Providers Care Printing Pressman Name Role Phone Amanuel DURAN FACS RVT [...] Providers Copied on Encounter [facility], [address], [id number], [place] tel:[phone] [place] No Information 3 Amanuel DURAN FACS T SIMÓN Pinto. [address], [address], [place], [address], [place]. [phone] Referring Provider: Truong Colon MD, [address], [place], [address]. tel:[phone] Office/Outpt E&M Established 25 Mins [facility], [address] [place] [address] [address] [place], [id number], [place] tel:[phone] [place] Body mass index (BMI) 34.0-34.9, adultVenous insufficiency (chronic) (peripheral) 3 Amanuel DURAN FACS Yoni Pinto. [address] [place] [address], [place] [address], [place], [address], [place]. [phone] Referring Provider: Truong Colon MD, [address], [place], [address]. 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 [address] [place] [address], [address], [place], [address], [place]. [phone] Referring Provider: Truong Colon MD, [address], [place], [address]. 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 [facility], [address], [place], [address], [place]. tel:[phone] Referring Provider: Truong Colon MD, [address], [place], [address]. tel:[phone] [facility], [address] [place] [address] [address] [place], [id number], [place] tel:[phone] [place] Encntr for f/u exam aft trtmt for cond oth than malig neoplmVenous insufficiency (chronic) (peripheral) 3 Amanuel DURAN FACS RVT SIMÓN Pinto. [address] [facility] [address], [place], [address], [place]. tel:[phone] Referring Provider: Truong Colon MD, [address] [place] [address] Dr [address], [place], [address]. 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 [address], [facility] [address], [place], [address], [place]. [phone] Referring Provider: Truong Colon MD, [address] [place] [address] Dr [address], [place], [address]. 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 [address], [facility] [address], [place], [address], [place]. tel:[phone] Referring Provider: Truong Colon MD, [address], [place], [address]. tel:[phone] Family History Family Member Type Diagnosis Age At Onset No Information Payers Payer name Insurance type Covered libertarian ID Josefina haynes(s) [facility] [id number] Social History Type Description Quantity Date Captured [...]
--- OUTSIDE RECORDS SUMMARY | 2024-08-11 12:20 | XMS_ITS ---
Author Organization [facility] Address [address] [facility] [place] [address] Care Team Providers Care Side Puller Name Role Phone Isaiah DURAN, Truong Primary Care Provider Boby Laguerre Unavailable [phone] Allergies Allergen (clinical drug ingredient) Drug/Non Drug [...] Tobacco non-user Current no nsmoker Vital Signs Blood pressure systolic 127 mm Hg 08/01/19 25 Blood pressure diastolic 64 mm Hg 025 Height 5 ft 9in in 07/31/2024 Weight 233 lbs 07/31/2024 BMI 34.4 kg/m2 07/31/2024 Procedures Procedure Date Ordered Date Performed Result Body Sit e 05036-IKHOXEI NAIL, 6 OR MORE 07/31/2024 N/A 68207-XLEH SKIN LESIONS, OVER 4 07/31/2024 N/A Encounters Encounter Location Date Provider Diagnosis [facility] [address] [address] 07/31/2024 Boby Chapman Atherosclerosis of peoria artery of both lower extremities, with unspecified presence of clinical manifestation I70.203 ; Tinea unguium B35.1 ; Pain in right toe(s) M79.674 ; Pain in left toe(s) M79.675 ; Other hammer toe(s) (acquired), right foot M20.41 and Other hammer toe(s) (acquired), left foot M20.42 Assessments Encounter Date Diagnosis (ICD Code) Assessment Notes Treatment Notes Treatment Clinical Notes Section Notes 07/31/2024 Atherosclerosis of peoria artery of both lower extremities, with unspecified [...] Treatment Pending Test Test Name Order Date 21774-FAMGSIT NAIL, 6 OR MORE 07/31/2024 59223-UHHG SKIN LESIONS, OVER 4 08/01/19 25 Next Appt Details Follow Up: 2 Months, Reason: Provider Name:Boby Chapman , 10/30/2024 02:45:00 PM, [address] , [address], [place], [address], Procedure Notes * Category Sub-Category Detail Notes [...] use of a nail nipper and/or dremel-type clay grinder, to a more viable healthy nail [...] instrumentation by the physician of record - 13699, Q8 Progress Notes * Tommie BLANCASOB:[birth year] (78 yo F)Acc No.[id number]:07/31/2024 Progress Note Patient:?Jacinda BLANCAS Provider:?Boby Chapman DPM :1945???Age:78 Y???Sex:Female D ate:07/31/2024 Address:[address] [place], [place] [address] Pcp:Truong Colon MD Subjective: * Chief Complaints: [...] Assessment: 1.?Tinea unguium - B35.1???2 .?Atherosclerosis of peoria artery of both lower extremities, with unspecified presence of clinical manifestation - I70.203 (Primary)???Specify :Q8???3.?Pain in right toe(s) - M79.674???4.?Pain in left toe(s) - M79.675???5.?Other hammer toe(s) (acquired), right foot - M20.41???Specify :Chronic problem, Stable (1=3,2=4), Response to treatment - Improvement???6.?Other hammer toe(s) (acquired), left foot - M20.42???Specify :Chronic problem, Stable (1=3,2=4), Response to treatment - Improvement??? Plan: * Treatment: 2.?Tinea unguium?Procedure: 59716-KBOGNKB NAIL, 6 OR MORE * Procedures:?Debride Nail [...] use of a nail nipper and/or dremel-type clay grinder, to a more viable healthy nail [...] to maintain effectiveness in symptomatic relief - 04706.?Keratoma Treatment:?Parring or Cutting of Benign Hyperkeratotic Lesion(s)?(-57) [...] instrumentation by the physician of record - 94925, Q8.? * Procedure Codes:?02900 DEBRI DE NAIL, 6 OR MORE, Modifiers: XS 50428 TRIM SKIN LESIONS, OVER 4, Modifiers: XS [...] Provider:?Boby Chapman DPM Date:?2024 Generated for Yovanny toussaint/Leah/eTransmitting on:?08/11/2024 12:19 PM EDT History and Physical [...]
--- OUTSIDE RECORDS SUMMARY | 2024-08-11 12:20 | XMS_ITS | Encounter Summary ---
Author Organization [facility] Address [address] [place] [address] Phone Care Team Providers Care Livestock Exhibitor Name Role Phone Truong Colon MD Primary Care Provider +1- [phone] Encounter Details Date Type Department Care Team (Late Contact Info) Description 11/09/2021 Documentation Only [facility] [address] [place] [address] Dimitris Suarez PA Social History [...] [facility] [address] [place] [address] Romero Jimenez MD [address] [place] [address] [place] [address] documented as of this encounter Visit Diagnoses Not on filedocumented in this encounter Care Teams Livestock Exhibitor Relationship Specialty Start Date End Date Truong Colon MD [address] [place], [place] [id number] PCP - General Internal Medicine 03/06/23 documented as of this encounter
--- OUTSIDE RECORDS SUMMARY | 2024-08-11 12:20 | XMS_ITS | Clinical Summary ---
Author Organization [facility] Address [address] [place] [address] Phone Care Team Providers Care Residential Support Specialist Name Role Phone Troung Colon MD Primary Care Provider +1 [phone] Allergies Active Allergy Reactions Criticality Noted Date [...] left breast in female, estrogen receptor positive ([facility] V24, 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 Encounters Date Type Department Care Team Description 07/17/2024 10:53 AM EDT - 07/17/2024 11:59 PM EDT Hospital [facility] [address] [id number] Encounter for screening mammogram for malignant neoplasm of breast Discharge Disposition: Home or Self Care 06/09/2024 Telephone [facility] Hematology Oncology [address] [place] [phone] Jillian-Jennifer Brooks MD from Last 3 Months Surgical History Surgery Date Site/Laterality Comments LUMBAR DISC SURGERY PROCEDURE:LUMBAR DISC SURGERY Medical History Medical History Date Comments Malignant neoplasm of upper- outer quadrant of left female breast ([facility] V24, [facility] V28) DX:Malignant neoplasm of upp er-outer quadrant [...] Description 10/02/2024 11:00 AM EDT Office Visit [facility] Hematology Oncology [address] [place] [address] Jillian-Jennifer Gonzalez MD [address] [place] [address] Health Maintenance Due Date Last [...] year. Mammo Location: [facility], [address] [place] [address], [address], . -------- FINAL REPORT -------- Dictated By: Lilly Ayala Dictated Date: 07/22/2024 16:10 ET Assigned Physician: Lilly Ayala Reviewed and Electronically Signed By: Lilly Ayala Signed Date: 07/22/2024 16:14 ET Workstation ID: [id number] Transcribed By: Self Edit Transcribed Date: 07/22/2024 [...] year. Mammo Location: [facility], [address] [place] [address], [address], . -------- FINAL REPORT -------- Dictated By: Lilly Ayala Dictated Date: 07/22/2024 16:10 ET Assigned Physician: Lilly Ayala Reviewed and Electronically Signed By: Lilly Ayala Signed Date: 07/22/2024 16:14 ET Workstation ID: [id number] Transcribed By: Self Edit Transcribed Date: 07/22/2024 16:10 ET Jennifer Ca MD IMG BI PROCEDURES F inal Result * DXA BONE DENSITY STUDY 1+ LYLA MANN SKEL (10/07/2021 10:23 AM EDT) Anatomical Region Laterality Modality Bone Densitometr y 05/10/2021 11:5 1 AM EST Narrative 10/07/2021 4:32 PM EDT Clinical history: other osteoporosis Scans of the lumbar spine and hips were performed on a [employer] fan beam bone densitometer. ? Bone mineral [...] spine and hips were performed on a [employer] beam bone densitometer. Bone mineral density measurements [...] Group ID:[id number] Type:Not on file Address: [address] [place] [address] Care Teams Residential Support Specialist Relationship Specialty Start Date End Date Truong Colon MD [address] [place] [address] [address] [place], [place] PCP - General 05/19/22
--- OUTSIDE RECORDS SUMMARY | 2024-08-11 12:20 | XMS_ITS | Encounter Summary ---
Author Organization [facility] Address [address] [place] [address] Phone Care Team Providers Care Stockbroking Dealer Name Role Phone Truong Colon MD Primary Care Provider +1- [phone] Encounter Details Date Type Department Care Team (Late Contact Info) Description 01/31/2024 Documentation Only [facility] [address] [place] [address] Kylie Gabriel [address] [place] [address] Social History Tobacco Use Types [...] [facility] [address] [place] [address] Romero Jimenez MD [address] [place] [address] [place] [address] documented as of this encounter Visit Diagnoses Not on filedocumented in this encounter Care Teams Stockbroking Dealer Relationship Specialty Start Date End Date Truong Colon MD [address] [place] [address] PCP - General Internal Medicine 03/06/23 documented as of this encounter
--- OUTSIDE RECORDS SUMMARY | 2024-08-11 12:20 | XMS_ITS | Encounter Summary ---
Author Organization [facility] Address [address] [place] [address] Phone Care Team Providers Care Salvage Supervisor Name Role Phone Truong Colon MD Primary Care Provider +1- [phone] Encounter Details Date Type Department Care Team (Late Contact Info) Description 04/11/2022 Documentation Only [facility] [address] [place] [address] Kylie Gabriel [address] [place] [address] Social History Tobacco Use Types [...] [facility] [address] [place] [address] Romero Jimenez MD [address] [place] [address] [place] [address] documented as of this encounter Visit Diagnoses Not on filedocumented in this encounter Care Teams Salvage Supervisor Relationship Specialty Start Date End Date Truong Colon MD [address] [place] [address] PCP - General Internal Medicine 03/06/23 documented as of this encounter
--- OUTSIDE RECORDS SUMMARY | 2024-08-11 12:20 | XMS_ITS | Encounter Summary ---
Author Organization [facility] Address [address] [place] [address] Phone Care Team Providers Care Millstone Cleaner Name Role Phone Truong Colon MD Primary Care Provider +1- [phone] Encounter Details Date Type Department Care Team (Late Contact Info) Description 04/04/2024 Documentation Only [facility] [address] [place] [address] Jasmin Dumont [address] [place] [address] Social History Tobacco Use [...] Visit [facility] [address] [place] [address] Romero Jimenez MD [address] [place] [address] [place] [address] documented as of this encounter Visit Diagnoses Not on filedocumented in this encounter Care Teams Millstone Cleaner Relationship Specialty Start Date End Date Truong Colon MD [address] [place] [address] PCP - General Internal Medicine 03/06/23 documented as of this encounter
--- OUTSIDE RECORDS SUMMARY | 2024-08-11 12:20 | XMS_ITS | Encounter Summary ---
Author Organization [facility] Address [address] [place] [address] Phone Care Team Providers Care Salesperson Flowers Name Role Phone Truong Colon MD Primary Care Provider +1- [phone] Encounter Details Date Type Department Care Team (Late Contact Info) Description 01/21/2024 Orders Only [facility] [address] [place] [address] Dimitris Suarez PA Stage 3a [...] Visit [facility] [address] [place] [address] Romero Jimenez MD [address] [place] [address] [place] [address] documented as of this encounter Visit Diagnoses Diagnosis Stage 3a chronic kidney disease (HCC) Essential hypertension Peripheral vascular disease (HCC) Peripheral vascular disease Renal osteodystrophy documented in this encounter Care Teams Salesperson Flowers Relationship Specialty Start Date End Date Truong Colon MD [address] [place] [address] PCP - General Internal Medicine 03/06/23 documented as of this encounter
--- OUTSIDE RECORDS SUMMARY | 2024-08-11 12:20 | XMS_ITS | Encounter Summary ---
Author Organization [facility] Address [address] [place] [address] Phone Care Team Providers Care Chucking And Sawing Machine Operator Name Role Phone Truong Colon MD Primary Care Provider +1- [phone] Encounter Details Date Type Department Care Team (Late Contact Info) Description 04/24/2024 Documentation Only [facility] [address] [place] [address] Kylie Gabriel [address] [place] [address] Social History Tobacco Use Types [...] [facility] [address] [place] [address] Romero Jimenez MD [address] [place] [address] [place] [address] documented as of this encounter Visit Diagnoses Not on filedocumented in this encounter Care Teams Chucking And Sawing Machine Operator Relationship Specialty Start Date End Date Truong Colon MD [address] [place] [address] PCP - General Internal Medicine 03/06/23 documented as of this encounter
--- OUTSIDE RECORDS SUMMARY | 2024-08-11 12:20 | XMS_ITS | Encounter Summary ---
Author Organization [facility] Address [address] [place] [address] Phone Care Team Providers Care Brand Planner Name Role Phone Truong Colon MD Primary Care Provider +1- [phone] Encounter Details Date Type Department Care Team (Late Contact Info) Description 04/10/2024 Documentation Only [facility] [address] [place] [address] Kylie Gabriel [address] [place] [address] Social History Tobacco Use Types [...] [facility] [address] [place] [address] Romero Jimenez MD [address] [place] [address] [place] [address] documented as of this encounter Visit Diagnoses Not on filedocumented in this encounter Care Teams Brand Planner Relationship Specialty Start Date End Date Truong Colon MD [address] [place] [address] PCP - General Internal Medicine 03/06/23 documented as of this encounter
--- OUTSIDE RECORDS SUMMARY | 2024-08-11 12:20 | XMS_ITS | Encounter Summary ---
Author Organization [facility] Address [address] [place] [address] Phone Care Team Providers Care Check Writer Name Role Phone Truong Colon MD Primary Care Provider +1- [phone] Encounter Details Date Type Department Care Team (Late Contact Info) Description 10/29/2023 Documentation Only [facility] [address] [place] [address] Kylie Gabriel [address] [place] [address] Social History Tobacco Use Types [...] [facility] [address] [place] [address] Romero Jimenez MD [address] [place] [address] [place] [address] documented as of this encounter Visit Diagnoses Not on filedocumented in this encounter Care Teams Check Writer Relationship Specialty Start Date End Date Truong Colon MD [address] [place] [address] PCP - General Internal Medicine 03/06/23 documented as of this encounter
--- OUTSIDE RECORDS SUMMARY | 2024-08-11 12:20 | XMS_ITS ---
Author Organization [facility] Address [address] [facility] [place] [address] Care Team Providers Care Applied Exercise Physiologist Name Role Phone Isaiah DURAN, Truong Primary Care Provider Boby Laguerre Unavailable [phone] Allergies Allergen (clinical drug ingredient) Drug/Non Drug [...] no nsmoker Vital Signs Blood pressure systolic 126 mm Hg 05/05/19 25 Blood pressure diastolic 77 mm Hg 025 Height 5 ft 9in in 05/05/2024 Weight 233 lbs 05/05/2024 BMI 34.4 kg/m2 05/05/2024 Procedures Procedure Date Ordered Date Performed Result Body Sit e 90060-RCFEIYE NAIL, 6 OR MORE 05/05/2024 N/A 47952-XKUJ SKIN LESIONS, OVER 4 05/05/2024 N/A Encounters Encounter Location Date Provider Diagnosis [facility] [address] [address] 05/05/2024 Boby Chapman Atherosclerosis of citizen [place] artery of both lower extremities, with unspecified presence of clinical manifestation I70.203 ; Tinea unguium B35.1 ; Pain in right toe(s) M79.674 ; Pain in left toe(s) M79.675 ; Other hammer toe(s) (acquired), right foot M20.41 and Other hammer toe(s) (acquired), left foot M20.42 Assessments Encounter Date Diagnosis (ICD Code) Assessment Notes Treatment Notes Treatment Clinical Notes Section Notes 05/05/2024 Atherosclerosis of citizen [place] artery of both lower extremities, with unspecified [...] days Pending Test Test Name Order Date 48257-YICIPZC NAIL, 6 OR MORE 05/05/2024 46162-GVMO SKIN LESIONS, OVER 4 05/05/19 25 Next Appt Details Follow Up: 2 Months, Reason: Provider Name:Boby Chapman , 10/30/2024 02:45:00 PM, [address], [place], [address], Procedure Notes * Category Sub-Category Detail Notes [...] use of a nail nipper and/or dremel-type cutlery grinder, to a more viable healthy nail [...] to maintain effectiveness in symptomatic relief - 87266 Keratoma Treatment Parring or Cutting o f [...] instrumentation by the physician of record - 24710, Q8 Progress Notes * Tommie BLANCASOB:[birth year] (78 yo F)Acc No.[id number]:05/05/2024 Progress Note Patient:?Jacinda BLANCAS Provider:?Boby Chapman DPM :1945???Age:78 Y???Sex:Female D ate:05/05/2024 Address:[address] [place], [place] [address] Pcp:Truong Colon MD Subjective: * Chief Complaints: [...] by , , who serves as , High School Math Tutor/Middle School Pe Teacher , additional Historian , and/who is physically present in exam room at time of visit.?ORIENTED:?person, place, and time.?FOOT EXAM:?Lower Extremity Neurological Exam performed:?Yes ?Visual exam of foot performed:?Yes ?Date?05/05/2024 ?Footwear Evaluation?Footwear Evaluation performed:?Yes??? Assessment: * Assessment: 1.?Tinea unguium - B35.1???2 .?Atherosclerosis of citizen [place] artery of both lower extremities, with unspecified presence of clinical manifestation - I70.203 (Primary)???3.?Pain in right toe(s) - M79.674???4.?Pain in left toe(s) - M79.675 ??5.?Other hammer toe(s) (acquired), right foot - M20.41???Specify :Chronic problem, Worse (4),Rx Management (4)???6.?Other hammer toe(s) (acquired), left foot - M20.42???Specify :Chronic problem, Worse (4),Rx Management (4)??? Plan: * Treatment: 2.?Tinea unguium?Procedure: 25111-QWLQDDW NAIL, 6 OR MORE 3.?Other hammer toe(s) [...] use of a nail nipper and/or dremel-type cutlery grinder, to a more viable healthy nail [...] to maintain effectiveness in symptomatic relief - 02653.?Keratoma Treatment:?Parring or Cutting of Benign Hyperkeratotic Lesion(s)?(-57) [...] instrumentation by the physician of record - 32474, Q8.? * Procedure Codes:?02119 DEBRI DE NAIL, 6 OR MORE, Modifiers: XS 88879 TRIM SKIN LESIONS, OVER 4, Modifiers: XS [...] Chapman DPM Date:?2024 Generated for Yovanny toussaint/Leah/Lois on:?08/11/2024 12:20 PM EDT History and Physical Notes * [...] by , , who serves as , High School Math Tutor/Middle School Pe Teacher , additional Historian , and/who is physically [...]
--- OUTSIDE RECORDS SUMMARY | 2024-08-11 12:20 | XMS_ITS | Encounter Summary ---
Author Organization [facility] Address [address] [place] [address] Phone Care Team Providers Care Art Educator Name Role Phone Truong Colon MD Primary Care Provider +1- [phone] Encounter Details Date Type Department Care Team (Late Contact Info) Description 10/26/2023 Documentation Only [facility] [address] [place] [address] Kylie Gabriel [address] [place] [address] Social History Tobacco Use Types [...] [facility] [address] [place] [address] Romero Jimenez MD [address] [place] [address] [place] [address] documented as of this encounter Visit Diagnoses Not on filedocumented in this encounter Care Teams Art Educator Relationship Specialty Start Date End Date Truong Colon MD [address] [place] [address] PCP - General Internal Medicine 03/06/23 documented as of this encounter
--- OUTSIDE RECORDS SUMMARY | 2024-08-11 12:20 | XMS_ITS | Encounter Summary ---
Author Organization [facility] Address [address] [place] [address] Phone Care Team Providers Care Technology Analyst Name Role Phone Truong Colon MD Primary Care Provider +1- [phone] Encounter Details Date Type Department Care Team (Late Contact Info) Description 10/26/2023 Documentation Only [facility] [address] [place] [address] Kylie Gabriel [address] [place] [address] Social History Tobacco Use Types [...] Visit [facility] [address] [place] [address] Romero Jimenez MD [address] [place] [address] [place] [address] documented as of this encounter Visit Diagnoses Not on filedocumented in this encounter Care Teams Technology Analyst Relationship Specialty Start Date End Date Truong Colon MD [address] [place] [address] PCP - General Internal Medicine 03/06/23 documented as of this encounter
--- OUTSIDE RECORDS SUMMARY | 2024-08-11 12:20 | XMS_ITS | Encounter Summary ---
Author Organization [facility] Address [address] [place] [address] Phone Care Team Providers Care Brass Pourer Name Role Phone Truong Colon MD Primary Care Provider +1- [phone] Encounter Details Date Type Department Care Team (Late Contact Info) Description 07/02/2024 Documentation Only [facility] [address] [place] [address] [place] [address] [place] [address] Social History Tobacco Use Types Packs/Day [...] [facility] [address] [place] [address] Romero Jimenez MD [address] [place] [address] [place] [address] documented as of this encounter Visit Diagnoses Not on filedocumented in this encounter Care Teams Brass Pourer Relationship Specialty Start Date End Date Truong Colon MD [address] [place] [address] PCP - General Internal Medicine 03/06/23 documented as of this encounter
--- OUTSIDE RECORDS SUMMARY | 2024-08-11 12:20 | XMS_ITS | Encounter Summary ---
Author Organization [facility] Address [address] [place] [address] Phone Care Team Providers Care Supervisor Instrument Repair Name Role Phone Truong Colon MD Primary Care Provider +1- [phone] Encounter Details Date Type Department Care Team (Late Contact Info) Description 04/10/2024 Documentation Only [facility] [address] [place] [address] Kylie Gabriel [address] [place] [address] Social History Tobacco Use Types [...] [facility] [address] [place] [address] Romero Jimenez MD [address] [place] [address] [place] [address] documented as of this encounter Visit Diagnoses Not on filedocumented in this encounter Care Teams Supervisor Instrument Repair Relationship Specialty Start Date End Date Truong Colon MD [address] [place] [address] PCP - General Internal Medicine 03/06/23 documented as of this encounter
--- OUTSIDE RECORDS SUMMARY | 2024-08-11 12:20 | XMS_ITS | Encounter Summary ---
Author Organization [facility] Address [address] [place] [address] Phone Care Team Providers Care Family Court Counsellor Name Role Phone Truong Colon MD Primary Care Provider +1- [phone] Encounter Details Date Type Department Care Team (Late Contact Info) Description 04/14/2022 Documentation Only [facility] [address] [place] [address] Eligio Meza MD [address] [place] [address] [place] [address] Social History Tobacco Use Types [...] Visit [facility] [address] [address] Romero Jimenez MD [address] [facility] [place] [address] documented as of this encounter Visit Diagnoses Not on filedocumented in this encounter Care Teams Family Court Counsellor Relationship Specialty Start Date End Date Truong Colon MD [address] [place] [address] PCP - General Internal Medicine 03/06/23 documented as of this encounter
--- OUTSIDE RECORDS SUMMARY | 2024-08-11 12:20 | XMS_ITS | Encounter Summary ---
Author Organization [facility] Address [address] [place] [address] Phone Care Team Providers Care Inspector Printed Circuit Boards Name Role Phone Truong Colon MD Primary Care Provider +1- [phone] Encounter Details Date Type Department Care Team (Late Contact Info) Description 08/08/2024 Orders Only [facility] [address] [place] [address] Kylie Gabriel [address] [place] [address] Anemia in chronic kidney disease; [...] Visit [facility] [address] [place] [address] Romero Jimenez MD [address] [facility] [place] [address] documented as of this encounter Visit Diagnoses Diagnosis Anemia in chronic kidney disease Stage 3b chronic kidney disease (HCC) Iron deficiency anemia, not otherwise specified documented in this encounter Care Teams Inspector Printed Circuit Boards Relationship Specialty Start Date End Date Truong Colon MD [address] [place] [address] PCP - General Internal Medicine 03/06/23 documented as of this encounter
--- OUTSIDE RECORDS SUMMARY | 2024-08-11 12:20 | XMS_ITS | Encounter Summary ---
Author Organization [facility] [place], Address [address] [place] [address] Phone Care Team Providers Care Identification Technician Name Role Phone Truong Colon MD Primary Care Provider +1- [phone] Encounter Details Date Type Department Care Team (Late Contact Info) Description 01/23/2024 Documentation Only [facility] [place], - [place] [address] [place] [address] Jasmin Dumont [address] [place] [address] Social History Tobacco Use Types Packs/Day [...] Visit [facility] [place], [address] [place] [address] Romero Jimenez MD [address] [facility] [place] [address] documented as of this encounter Visit Diagnoses Not on filedocumented in this encounter Care Teams Identification Technician Relationship Specialty Start Date End Date Truong Colon MD [address] [place] [address] PCP - General Internal Medicine 03/06/23 documented as of this encounter
--- OUTSIDE RECORDS SUMMARY | 2024-08-11 12:20 | XMS_ITS | Encounter Summary ---
Author Organization [facility] Address [address] [place] [address] Phone Care Team Providers Care Line Tender Flakeboard Name Role Phone Truong Colon MD Primary Care Provider +1- [phone] Encounter Details Date Type Department Care Team (Late Contact Info) Description 08/04/2024 Documentation Only [facility] [address] [place] [address] Kylie Gabriel [address] [place] [address] Social History Tobacco Use Types [...] [facility] [address] [place] [address] Romero Jimenez MD [address] [place] [address] [place] [address] documented as of this encounter Visit Diagnoses Not on filedocumented in this encounter Care Teams Line Tender Flakeboard Relationship Specialty Start Date End Date Truong Colon MD [address] [place] [address] PCP - General Internal Medicine 03/06/23 documented as of this encounter
--- OUTSIDE RECORDS SUMMARY | 2024-08-11 12:20 | XMS_ITS | Encounter Summary ---
Author Organization [facility] Address [address] [place] [address] Phone Care Team Providers Care Foot Drill Operator Name Role Phone Truong Colon MD Primary Care Provider +1- [phone] Encounter Details Date Type Department Care Team (Late Contact Info) Description 05/04/2022 Documentation Only [facility] [address] [place] [address] Kylie Gabriel [address] [place] [address] Social History Tobacco Use Types [...] [facility] [address] [place] [address] Romero Jimenez MD [address] [place] [address] [place] [address] documented as of this encounter Visit Diagnoses Not on filedocumented in this encounter Care Teams Foot Drill Operator Relationship Specialty Start Date End Date Truong Colon MD [address] [place] [address] PCP - General Internal Medicine 03/06/23 documented as of this encounter
--- OUTSIDE RECORDS SUMMARY | 2024-08-11 12:20 | XMS_ITS | Encounter Summary ---
Author Organization [facility] Address [address] [place] [address] Phone Care Team Providers Care Gear Cutter Name Role Phone Truong Colon MD Primary Care Provider +1- [phone] Encounter Details Date Type Department Care Team (Late Contact Info) Description 06/13/2024 Orders Only [facility] [address] [place] [address] Kylie Gabriel [address] [place] [address] Anemia in chronic kidney disease; [...] Visit [facility] [address] [place] [address] Romero Jimenez MD [address] [facility] [place] [address] documented as of this encounter Visit Diagnoses Diagnosis Anemia in chronic kidney disease Stage 3b chronic kidney disease (HCC) Iron deficiency anemia, not otherwise specified documented in this encounter Care Teams Gear Cutter Relationship Specialty Start Date End Date Truong Colon MD [address] [place] [address] PCP - General Internal Medicine 03/06/23 documented as of this encounter
--- OUTSIDE RECORDS SUMMARY | 2024-08-11 12:20 | XMS_ITS | Encounter Summary ---
Author Organization [facility] Address [address] [place] [address] Phone Care Team Providers Care Etl Database Developer Name Role Phone Truong Colon MD Primary Care Provider +1- [phone] Encounter Details Date Type Department Care Team (Late Contact Info) Description 07/31/2024 Documentation Only [facility] [address] [place] [address] Kylie Gabriel [address] [place] [address] Social History Tobacco Use Types [...] [facility] [address] [place] [address] Romero Jimenez MD [address] [place] [address] [place] [address] documented as of this encounter Visit Diagnoses Not on filedocumented in this encounter Care Teams Etl Database Developer Relationship Specialty Start Date End Date Truong Colon MD [address] [place] [address] PCP - General Internal Medicine 03/06/23 documented as of this encounter
--- OUTSIDE RECORDS SUMMARY | 2024-08-11 12:20 | XMS_ITS | Encounter Summary ---
Author Organization [facility] Address [address] [place] [address] Phone Care Team Providers Care Supervisor Wood Room Name Role Phone Truong Colon MD Primary Care Provider +1- [phone] Encounter Details Date Type Department Care Team (Late Contact Info) Description 01/14/2024 Documentation Only [facility] [address] [place] [address] [place] [address] [place] [address] Social History Tobacco Use Types Packs/Day [...] Visit [facility] [address] [place] [address] Romero Jimenez MD [address] [facility] [address] [place] [address] documented as of this encounter Visit Diagnoses Not on filedocumented in this encounter Care Teams Supervisor Wood Room Relationship Specialty Start Date End Date Truong Colon MD [address] [place] [address] PCP - General Internal Medicine 03/06/23 documented as of this encounter
--- OUTSIDE RECORDS SUMMARY | 2024-08-11 12:20 | XMS_ITS | Encounter Summary ---
Author Organization [facility] Address [address] [place] [address] Phone Care Team Providers Care Lighting Engineer Name Role Phone Truong Colon MD Primary Care Provider +1- [phone] Encounter Details Date Type Department Care Team (Late Contact Info) Description 12/21/2021 Documentation Only [facility] [address] [place] [address] Dimitris Suarez PA Social History [...] Upcoming Encounters Date Type Department Care Team ([facility] Contact Info) Description 08/12/2024 1:30 PM EDT Office Visit [facility] [address] [place] [address] Romero Jimenez MD [address] [place] [address] [place] [address] documented as of this encounter Visit Diagnoses Not on filedocumented in this encounter Care Teams Lighting Engineer Relationship Specialty Start Date End Date Truong Colon MD [address] [place], [place] [address] PCP - General Internal Medicine 03/06/23 documented as of this encounter
--- OUTSIDE RECORDS SUMMARY | 2024-08-11 12:20 | XMS_ITS | Encounter Summary ---
Author Organization [facility] [place], Address [address] [place] [address] Phone Care Team Providers Care Emergency Management Consultant Name Role Phone Truong Colon MD Primary Care Provider +1- [phone] Reason for Visit * Reason Onset Date Comments labs overdue 08/06/2024 Encounter Details Date Type Department Care Team (Late st Contact Info) Description 08/06/2024 Documentation Only [facility] [address] [place] [address] Deisi [place], RN [address] [place] [address] [place] [address] labs overdue Social History Tobacco Use Types Packs/Day Years [...] as of this encounter Progress Notes * Deisi [place], RN - 08/06/2024 2:05 PM EDT Pt was due for lab work on 07/26/24. I phoned pt to remind her she needs to get her blood drawn now and every 28 days (Calli Maravilla interpreted). Standing orders are in place at [facility]. Pt stated she understood and will get blood drawn. documented in this encounter Plan of Treatment Upcoming Encounters Date Type Department Care Team (Late st Contact Info) Description 08/12/2024 1:30 PM EDT Office Visit [facility] [place], [address] [place] [address] Romero Jimenez MD [address] [facility] [place] [address] documented as of this encounter Visit Diagnoses Not on filedocumented in this encounter Care Teams Emergency Management Consultant Relationship Specialty Start Date End Date Truong Colon MD [address] [place] [address] [address] [place] [address] PCP - General Internal Medicine 03/06/23 documented as of this encounter
--- OUTSIDE RECORDS SUMMARY | 2024-08-11 12:21 | XMS_ITS ---
Author Organization [facility] [place], Address [address] [place] [address] [place] [address] Phone Care Team Providers Care Facilities Administrator Name Role Phone Truong Colon MD Primary Care Provider +1- [phone] Active Problems Problem Noted Date Diagnosed Date [...]
--- OUTSIDE RECORDS SUMMARY | 2024-08-11 12:21 | XMS_ITS | Encounter Summary ---
Author Organization [facility] Address [address] [place] [address] Phone Care Team Providers Care Cafe Aide Name Role Phone Truong Colon MD Primary Care Provider +1- [phone] Encounter Details Date Type Department Care Team (Late Contact Info) Description 04/29/2024 Documentation Only [facility] [address] [place] [address] Britt Sol [address] [place] [address] Social History Tobacco Use Types [...] [facility] [address] [place] [address] Romero Jimenez MD [address] [place] [address] [place] [address] documented as of this encounter Visit Diagnoses Not on filedocumented in this encounter Care Teams Cafe Aide Relationship Specialty Start Date End Date Truong Colon MD [address] [place] [address] PCP - General Internal Medicine 03/06/23 documented as of this encounter
--- OUTSIDE RECORDS SUMMARY | 2024-08-11 12:21 | XMS_ITS | Encounter Summary ---
Author Organization [facility] Address [address] [place] [address] Phone Care Team Providers Care Lion Tamer Name Role Phone Truong Colon MD Primary Care Provider +1- [phone] Encounter Details Date Type Department Care Team (Late Contact Info) Description 07/11/2024 Orders Only [facility] [address] [place] [address] Kylie Gabriel [address] [place] [address] Anemia in chronic kidney disease; [...] Visit [facility] [address] [place] [place] [address] Romero Jimenez MD [address] [facility] [place] [address] documented as of this encounter Visit Diagnoses Diagnosis Anemia in chronic kidney disease Stage 3b chronic kidney disease (HCC) Iron deficiency anemia, not otherwise specified documented in this encounter Care Teams Lion Tamer Relationship Specialty Start Date End Date Truong Colon MD [address] [place] [address] PCP - General Internal Medicine 03/06/23 documented as of this encounter
--- OUTSIDE RECORDS SUMMARY | 2024-08-11 12:21 | XMS_ITS | Clinical Summary ---
Author Organization [facility] [place], Address [address] [place] [address] [place] [address] Phone Care Team Providers Care School Custodian Name Role Phone Truong Colon MD Primary Care Provider +1- [phone] Allergies Active Allergy Reactions Criticality Noted Date [...] Encounters Date Type Department Care Team Description 08/08/2024 Orders Only [facility] [address] [place] [address] Kylie Gabriel Anemia in chronic kidney disease; Stage 3b chronic kidney disease (HCC); Iron deficiency anemia, not otherwise specified 08/06/2024 Documentation Only [facility] [address] [address] Deisi Wakefield, RN labs overdue 08/04/2024 Documentation Only [facility] [address] [place] [address] Harvey, Kylie 07/31/2024 Documentation Only [facility] [address] [place] [address] Harvey, Kylie 07/31/2024 Office Communication [facility] [address] [place] [address] Deisi Wakefield, ROGELIO 07/16/2024 3:45 PM EDT Office Visit [facility] [address] [place] [address] Romero Jimenez MD Stage 3b chronic kidney disease (HCC) (Primary Dx) 07/11/2024 Orders Only [facility] [address] [place] [address] Harvey, Kylie Anemia in chronic kidney disease; Stage 3b chronic kidney disease (HCC); Iron deficiency anemia, not otherwise specified 07/02/2024 Documentation Only [facility] [address] [place] [address] Sabrina Membreno [place] 06/13/2024 Orders Only [facility] [address] [place] [address] Harvey, Kylie Anemia in chronic kidney disease; Stage 3b chronic kidney disease (HCC); Iron deficiency anemia, not otherwise specified 06/05/2024 Telephone [facility] [address] [place] [address] Deisi Wakefield, RN reminder for labs 06/03/2024 Documentation Only [facility] [address] [place] [address] Kylie Gabriel 05/31/2024 Office Communication [facility] [address] [place] [address] Deisi Wakefield, ROGELIO 05/31/2024 Telephone [facility] [address] [place] [address] Deisi Wakefield, RN 05/27/2024 Documentation Only [facility] [address] [place] [address] Kylie Gabriel 05/16/2024 Orders Only [facility] [address] [place] [address] Kylie Gabriel Anemia in chronic kidney disease; Stage 3b chronic kidney disease (HCC); Iron deficiency anemia, not otherwise specified from Last 3 Months Immunizations Immunization Administration [...] Visit [facility] [place], [address] [place] [address] Romero Jimenez MD [address] [place] [address] [place] [address] Health Maintenance Due Date Last Done Comments [...] Phone Billing Address Personal/Family Self [address] [employer] ([id number]) Care Teams School Custodian Relationship Specialty Start Date End Date Truong Colon MD [address] [place] [address] PCP - General Internal Medicine 03/06/23
[2024-08-11 12:30] LABS: MANUAL DIFF FLAG NO
[2024-08-11 12:51] LABS: Basophils Percent Auto 0.4 % (0-2); Eosinophils Absolute Auto 0.1 X10*3/uL (0.0-0.4); Eosinophils Percent Auto 2.4 % (0-4); Hematocrit 36.1 % (37.0-47.0); Hemoglobin 11.4 g/dl (12.0-16.0); Imm Gran Abs Auto 0.01 X10*3/uL (0.00-0.03); Imm Gran Pct Auto 0.2 % (0.0-0.4); Lymphocytes Absolute Auto 1.2 X10*3/uL (1.2-4.9); Lymphocytes Percent Auto 25.7 % (20-40); Mean Corpuscular HGB Conc 31.6 g/dl (31.0-35.0); Mean Corpuscular Volume 88.7 fL (80.0-98.0); Mean Platelet Volume 10.8 fL (9.4-12.3); Monocytes Absolute Auto 0.5 X10*3/uL (0.1-1.2); Monocytes Percent Auto 9.8 % (2-11); Neutrophils Absolute Auto 2.8 x10*3/uL (2.0-8.3); Neutrophils Percent Auto 61.5 % (45-73); Platelet Count 199 X10*3/uL (160-400); Red Blood Count 4.07 X10*6/uL (4.20-5.50); Red Cell Distribution Width 13.8 % (11.0-16.0); White Blood Count 4.6 X10*3/uL (4.8-10.8)
[2024-08-11 13:25] LABS: Anion Gap 12 (12-20); Blood Urea Nitrogen 23 mg/dL (9-16); Calcium 9.4 mg/dL (8.4-10.2); Carbon Dioxide 27 mmol/L (22-29); Chloride 105 mmol/L (96-108); Estimated Glomerular Filt Rate 42; Iron 81 mcg/dL (30-160); Percent Iron Saturation 35 % (15-50); Potassium 5.4 mmol/L (3.3-5.1); Sodium 139 mmol/L (135-145); Total Iron Binding Capacity 232 mcg/dL (228-428); Unsaturated Iron Binding 151 ug/dL
[2024-08-11 13:38] LABS: Ferritin 293 ng/mL (10-250)
== END 2024-08-11 12:14 | disposition home or self-care (01) ==
LOC: HO.LAB 12:13
PROVIDERS: PCP Internal Medicine; Visit Provider Internal Medicine Nephrology
DX: N18.32 Chronic kidney disease, stage 3b (principal); D63.1 Anemia in chronic kidney disease; D50.9 Iron deficiency anemia, unspecified
CPT/HCPCS: 36415; 80051; 82310; 82565; 82728; 83540; 84520; 85025

== ENCOUNTER 2024-08-13 15:29 | Emergency (ER) | payer OTHER, SELFPAY ==
--- NOTE | ~2024-08-13 | CT_ITS ---
CLINICAL HISTORY: fall c o pain to the lower back and bilateral hip CT of the abdomen and pelvis without contrast. No comparison. Findings: The liver is mildly lobulated. Cholecystectomy. No definite solid organ injury is seen. No abdominal aortic aneurysm. There is severe diverticulosis with moderate stool in the colon. No diverticulitis is identified. Mildly increased gas and fluid in the bowel is nonspecific. Bladder nondilated. No hemoperitoneum. Patchy densities in the lower lungs most likely represent scarring or atelectasis. There is a minimally displaced fracture through the lower portion of the sacrum. Impression: No definite solid organ injury. Fracture of the lower sacrum. This document has been electronically signed by: Surya Stanley MD on 08/13/2024 19:31:53
--- NOTE | ~2024-08-13 | CT_ITS ---
CLINICAL HISTORY: fall head injury CT of the head without contrast. No comparison. Findings: No acute hemorrhage or infarct is seen. There is no hydrocephalus or mass effect. There is a probable small arachnoid cyst in the right middle cranial fossa. Impression: No acute hemorrhage. This document has been electronically signed by: Surya Stanley MD on 08/13/2024 20:27:33
--- NOTE | ~2024-08-13 | XR_ITS ---
CLINICAL HISTORY: pain Three views of the right shoulder. Findings: No suspicious bony lesions are seen. There is moderate acromioclavicular and mild glenohumeral DJD. No dislocation. Impression: [id number] degenerative changes. This document has been electronically signed by: Suray Stanley MD on 08/13/2024 18:42:37
--- NOTE | ~2024-08-13 | CT_ITS ---
CLINICAL HISTORY: fall neck pain CT of the cervical spine without contrast. No comparison. Findings: No acute fractures are seen. There is no significant malalignment. There are multilevel degenerative changes. Impression: No acute fractures. This document has been electronically signed by: Surya Stanley MD on 08/13/2024 20:26:33
[2024-08-13 16:07] VITALS: BP 163/77; BP 168/82; PULSE 57; PULSE 68; RESP 18; TEMP 36.8; O2SAT 100; O2SAT 98; BMI 33.5
--- NOTE | 2024-08-13 17:03 | ED.GENADULT ---
HPI - General Adult General Chief complaint: General Medical Stated complaint: Fall w/ HS, cc of headache, -thinners Time Seen by Provider: 08/13/24 16:42 History of Present Illness HPI narrative: Patient is an 78-year-old female with a history of chronic back pain chronic hip pain baseline walks with a walker presented today after a fall. Patient had an MRI of her lower back done at another facility earlier. Complaining of pain persistent. Was using a walker when she slipped. There was no dizziness lightheadedness prior. Kit her head. But not on thinners. No nausea no vomiting. Complaining of pain to bilateral hip area. Back. Patient from home. There is no bowel urinary incontinence. There is no fever no chills. Related Data Home Medications ?Medication ?Instructions ?Recorded ?Confirmed multivitamin 1 tab PO DAILY 11/15/20 08/01/24 calcitriol 0.5 mcg capsule 1 mcg PO WE@1645 01/10/23 08/01/24 Previous Rx's ?Medication ?Instructions ?Recorded Commode #1 ea 05/11/22 cane #1 ea 02/01/23 DISPOSABLE BED PADS #30 ea 07/12/23 DISPOSABLE GLOVES - LARGE (1 #1 ea 07/12/23 box/month) FEMININE PADS #6 ea 10/01/23 MEDICATED INCONTINENCE WIPES #100 ea 10/01/23 carvedilol 12.5 mg tablet 12.5 mg PO BID 90 days #180 tabs 11/27/23 ROLLATOR #1 ea 02/04/24 docusate sodium 100 mg capsule 100 mg PO DAILY PRN for 02/09/24 constipation #90 caps pregabalin 50 mg capsule 50 mg PO BEDTIME 90 days #90 caps 02/19/24 bisacodyl 5 mg tablet,delayed 5 mg PO BEDTIME 90 days #90 tabs 02/24/24 release levothyroxine 125 mcg tablet 125 mcg PO DAILY@0600 #90 tabs 03/23/24 omeprazole 40 mg capsule,delayed 40 mg PO DAILY@0630 #90 caps 05/17/24 release ROLLATOR #1 ea 06/06/24 amlodipine 5 mg tablet 5 mg PO DAILY 90 days #90 tabs 06/06/24 hydroxyzine HCl 25 mg tablet 25 mg PO BID PRN anxiety #30 tabs 08/12/24 Allergies Allergy/AdvReac Type Severity Reaction Status Date / Time Penicillins [PENICILLINS] Allergy Intermediate rash Verified 08/13/24 16:08 senna Allergy Intermediate rash Verified 08/13/24 16:08 Review of Systems Review of Systems: Positive back pain positive hip pain positive head injury Yes all other systems are reviewed and are negative [facility] Past Medical History Attestation statement: The following information was validated with the patient. Medical History Ambulates with cane Difficulty swallowing Osteoarthritis of right knee BPV (benign positional vertigo) Gait instability Cervicogenic headache Cervicalgia Vertigo Chronic kidney disease, stage III (moderate) Obesity (BMI 30-39.9) Gastritis Benign essential hypertension GERD without esophagitis Acquired hypothyroidism Constipation Lumbar spondylosis Post laminectomy syndrome Connective tissue disease Interstitial lung disease Osteopenia PAC (premature atrial contraction) Sjogrens syndrome Hypothyroid Breast cancer Raynauds disease SAMARA positive Surgical History 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) Hx of colonoscopy Hx of tubal ligation H/O varicose vein stripping History of cataract surgery H/O lumpectomy Hx of cholecystectomy History of back surgery Family History Family History Father Emphysema of lung Cancer Brother Emphysema of lung Mother Bone cancer Son PONV (postoperative nausea and vomiting) Other Arthritis Social History Social History Household Members: Significant Other and Children Housing: Apartment Are you a primary summer child caregiver to a significant other at home: No Do you presently have visiting nurse or other home services: No Alcohol intake: never Comment: pt reports this is her baseline pain Patient Tobacco Use Status: Never used Tobacco e-Cigarette/Vaping Use: Never Used Second Hand Smoke Exposure: No Use of substances other than those prescribed or required for medical reasons: No Advance Directives: No Advance Directives Information Provided: No Do you have a plan to hurt others: No Plan service: No Current occupational status: retired Cognitive needs: No Hearing needs: No Vision needs: Yes (Glasses) Physical Exam ED Vital Signs: Vital Signs - 24 hr 08/13/24 16:07 08/13/24 18:00 Temperature 98.2 F 98.2 F Pulse Rate 57 57 Respiratory Rate 18 18 Blood Pressure 163/77 H 163/77 H Pulse Oximetry 100 100 Oxygen Delivery Method Room Air Room Air BMI result Body Mass Index 33.5 Appearance: Alert. Oriented X3. No acute distress. Eyes: Pupils equal, round and reactive to light. ENT: Pharynx normal. Neck: Normal inspection. Neck supple. No lymph nodes noted. No crepitus CVS: Normal heart rate and rhythm. Pulses normal. Normal S1 and S2 Respiratory: No respiratory distress. Breath sounds normal. No Wheezing. No rales Abdomen: Soft and nontender. No rigidity. No distention. good BS x4 Skin: Skin warm and dry. Normal skin color. Normal skin turgor. Extremities: No lower extremity edema. Neurovascular intact to all extremities. No Lacerations. No Rash Neuro: Oriented X 3. No motor deficit. No sensory deficit. Moving all extermities. No slurred speech Medications Administered Discontinued Medications Generic Name Dose Route Start Last Admin Trade Name Freq PRN Reason Stop Dose Admin Acetaminophen 975 mg 08/13/24 17:04 08/13/24 17:16 Acetaminophen 325 Mg Tablet PO 08/13/24 17:05 975 mg ONCE ONE Administration Medical Decision Making Medical Decision Making MDM Narrative: Patient is status post fall. There is no focal weakness. There is no bowel urinary incontinence suggest patient has cauda equinus syndrome. Patient fell when her legs give way. Complaining of pain to both hips and lower back. Question head injury. CT scan of the head was done my interpretation showed no acute fracture I reviewed radiology's reading of the CT head CT C-spine which were both grossly negative. I reviewed radiology's reading of the CT abdomen pelvis which was positive for a sacral fracture. There is a minimally displaced lower sacral fracture noted. It did not involve foramina it was in the level of the S5. The finding was discussed with orthopedic at [facility] felt it is beyond the capability of a hospital for sacral fracture. Patient's case discussed with orthopedics at [facility] in the setting of no signs of cauda equinus syndrome able to ambulate having a sacral fracture that is in the S5 area without any foramina involvement feel comfortable with patient following up on an outpatient basis. Patient is in stable condition. Differential Diagnosis Differential Diagnoses: The differential diagnosis associated with the presentation includes Sacral fracture Admission/Observation Consideration of admission/observation: Escalation of care including admission/observation considered Lab Data MDM Lab Attestation statement: I reviewed the patient's lab results. 08/13/24 17:14 08/13/24 17:14 Labs: Lab Results 08/13/24 Range/Units 17:14 WBC 11.2 H (4.8-10.8) X10*3/uL RBC 4.22 (4.20-5.50) X10*6/uL Hgb 11.8 L (12.0-16.0) g/dl Hct 36.7 L (37.0-47.0) % MCV 87.0 (80.0-98.0) fL MCH 28.0 (27.0-33.0) pg MCHC 32.2 (31.0-35.0) g/dl RDW 13.7 (11.0-16.0) % Plt Count 197 (160-400) X10*3/uL MPV 10.8 (9.4-12.3) fL Immature Gran % (Auto) 1.2 H (0.0-0.4) % Neut % (Auto) 87.2 H (45-73) % Lymph % (Auto) 8.0 L (20-40) % [facility] % (Auto) 2.9 (2-11) % Eos % (Auto) 0.5 (0-4) % Baso % (Auto) 0.2 (0-2) % Lymph # (Auto) 0.9 L (1.2-4.9) X10*3/uL [facility] # (Auto) 0.3 (0.1-1.2) X10*3/uL Eos # (Auto) 0.1 (0.0-0.4) X10*3/uL Baso # (Auto) 0.0 (0.0-0.2) X10*3/uL Abs Immat Gran (auto) 0.14 H (0.00-0.03) X10*3/uL Absolute Neuts (auto) 9.8 H (2.0-8.3) x10*3/uL Absolute Nucleated RBC 0.000 (0.0-0.012) X10*3/uL Nucleated RBC % (auto) 0.0 (0.0-0.2) /100WBC Sodium 137 (135-145) mmol/L Potassium 5.4 H (3.3-5.1) mmol/L Chloride 103 (96-108) mmol/L Carbon Dioxide 27 (22-29) mmol/L Anion Gap 12 (12-20) BUN 23 H (9-16) mg/dL Creatinine 1.08 (0.5-1.4) mg/dL Estim Creat Clear Calc 54.7 Estimated GFR 49 Random Glucose 103 (60-115) mg/dL Calcium 9.9 (8.4-10.2) mg/dL Independent Interpretation I performed an independent interpretation of an: CT Scan (CT head was negative) Radiology Impression Discussion of test interpretation with radiology: I have reviewed the radiologist's reading. External Record Review External record reviewed: Inpatient record Social Determinants Patient?s care significantly limited by Social Determinants of Health including: Problems related to primary support group Discharge Plan Discharge Clinical Impression: Sacral fracture Patient Disposition: Home, Self-Care Instructions: Sacral Fracture (ED) Prescriptions: No Action (DME) Commode See Rx Instructions .Route .MEDSUPPLY Qty: 1 0RF Rx Instructions: As directed (DME) DISPOSABLE GLOVES - LARGE (1 box/month) LARGE See Rx Instructions .Route .MEDSUPPLY Qty: 1 5RF Rx Instructions: Use as directed (DME) DISPOSABLE BED PADS See Rx Instructions .Route .MEDSUPPLY Qty: 30 5RF Rx Instructions: Use as directed ONCE A DAY carvedilol 12.5 mg tablet 12.5 mg PO BID 90 Days Qty: 180 3RF docusate sodium 100 mg capsule 100 mg PO DAILY PRN (Reason: for constipation) Qty: 90 0RF bisacodyl 5 mg tablet,delayed release (DR/EC) 5 mg PO BEDTIME 90 Days Qty: 90 1RF levothyroxine 125 mcg tablet 125 mcg PO DAILY@0600 Qty: 90 1RF omeprazole 40 mg capsule,delayed release(DR/EC) 40 mg PO DAILY@0630 Qty: 90 1RF Rx Instructions: TAKE 1 CAPSULE BY MOUTH EVERY DAY hydroxyzine HCl 25 mg tablet 25 mg PO BID PRN (Reason: anxiety) Qty: 30 1RF (DME) FEMININE PADS See Rx Instructions .Route .MEDSUPPLY Qty: 6 12RF Rx Instructions: As directed (DME) MEDICATED INCONTINENCE WIPES See Rx Instructions .Route .MEDSUPPLY Qty: 100 12RF Rx Instructions: As directed multivitamin Tablet 1 tab PO DAILY calcitriol 0.5 mcg capsule 1 mcg PO WE@1645 Rx Instructions: 1 mcg orally weekly; administer after dialysis on dialysis days (DME) cane Device See Rx Instructions .Route Qty: 1 0RF Rx Instructions: As directed - use when walking pregabalin 50 mg capsule 50 mg PO BEDTIME 90 Days Qty: 90 1RF amlodipine 5 mg tablet 5 mg PO DAILY 90 Days Qty: 90 0RF (DME) ROLLATOR See Rx Instructions .Route .MEDSUPPLY Qty: 1 0RF Rx Instructions: As directed (DME) ROLLATOR See Rx Instructions .Route .MEDSUPPLY Qty: 1 0RF Rx Instructions: As directed Referrals: Sg Mccann MD [Physician] - 08/18/24 Print Language: Portuguese
[2024-08-13] MEDS: Acetaminophen 325 MG TABLET 975 MG PO (17:16)
[2024-08-13 17:19] LABS: MANUAL DIFF FLAG NO
[2024-08-13 17:21] LABS: Basophils Percent Auto 0.2 % (0-2); Eosinophils Absolute Auto 0.1 X10*3/uL (0.0-0.4); Eosinophils Percent Auto 0.5 % (0-4); Hematocrit 36.7 % (37.0-47.0); Hemoglobin 11.8 g/dl (12.0-16.0); Imm Gran Abs Auto 0.14 X10*3/uL (0.00-0.03); Imm Gran Pct Auto 1.2 % (0.0-0.4); Lymphocytes Absolute Auto 0.9 X10*3/uL (1.2-4.9); Mean Corpuscular HGB Conc 32.2 g/dl (31.0-35.0); Mean Platelet Volume 10.8 fL (9.4-12.3); Monocytes Absolute Auto 0.3 X10*3/uL (0.1-1.2); Monocytes Percent Auto 2.9 % (2-11); Neutrophils Absolute Auto 9.8 x10*3/uL (2.0-8.3); Neutrophils Percent Auto 87.2 % (45-73); Platelet Count 197 X10*3/uL (160-400); Red Blood Count 4.22 X10*6/uL (4.20-5.50); Red Cell Distribution Width 13.7 % (11.0-16.0); White Blood Count 11.2 X10*3/uL (4.8-10.8)
[2024-08-13 17:33] LABS: Anion Gap 12 (12-20); Blood Urea Nitrogen 23 mg/dL (9-16); Calcium 9.9 mg/dL (8.4-10.2); Carbon Dioxide 27 mmol/L (22-29); Chloride 103 mmol/L (96-108); Creatinine Clr Calc Pharmacy 54.7; Estimated Glomerular Filt Rate 49; Glucose Random 103 mg/dL (60-115); Potassium 5.4 mmol/L (3.3-5.1); Sodium 137 mmol/L (135-145)
[2024-08-13 18:00] VITALS: BP 163/77; PULSE 57; RESP 18; TEMP 36.8; O2SAT 100
--- OUTSIDE RECORDS SUMMARY | 2024-08-13 18:29 | XMS_ITS | Encounter Summary ---
Author Organization [facility] Address [address] [place] [address] Phone Care Team Providers Care Rehab Liaison Name Role Phone Truong Colon MD Primary Care Provider [phone]- [phone] Encounter Details Date Type Department Care Team (Late Contact Info) Description 05/27/2024 Documentation Only [facility] [address] [place] [address] Kylie Gabriel [address] [place] [address] Social History Tobacco Use Types [...] Department Care Team (Late Contact Info) Description 12/02/2024 1:40 PM EDT Office Visit [facility] [address] [place] [address] Romero Jimenez MD [address] [place] [address] [place] [address] documented as of this encounter Visit Diagnoses Not on filedocumented in this encounter Care Teams Rehab Liaison Relationship Specialty Start Date End Date Truong Colon MD [address] [place] [address] PCP - General Internal Medicine 03/06/23 documented as of this encounter
--- OUTSIDE RECORDS SUMMARY | 2024-08-13 18:29 | XMS_ITS | Continuity of Care Document ---
Author Organization [facility] Address [address] [place] [address] Phone Care Team Providers Care Plastic Press Molder Name Role Phone Amanuel DURAN FACS RVT [...] Providers Copied on Encounter [facility], [address] [address], [id number], [place] tel:[phone] [place] No Information 3 Amanuel DURAN FACS T SIMÓN Pinto. [address], [address], [place], [address], [place]. [phone] Referring Provider: Truong Colon MD, [address], [place], [address]. tel:[phone] Office/Outpt E&M Established 25 Mins [facility], [address] [place] [address] Dr [address] [address] [place], [id number], [place] tel:[phone] [facility] Body mass index (BMI) 34.0-34.9, adultVenous insufficiency (chronic) (peripheral) 3 Amanuel DURAN FACS Yoni Pinto. [address] [place] [address], [place] [address], [place], [address], [place]. [phone] Referring Provider: Truong Colon MD, [address], [place], [address]. 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 [address] [place] [address], [address], [place], [address], [place]. [phone] Referring Provider: Truong Colon MD, [address], [place], [address]. 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 [facility], [address], [place], [address], [place]. tel:[phone] Referring Provider: Truong Colon MD, [address], [place], [address]. tel:[phone] [place] [facility], [address] [place] [address] [address] [place], [id number], [place] tel:[phone] [facility] Encntr for f/u exam aft trtmt for cond oth than malig neoplmVenous insufficiency (chronic) (peripheral) 3 Amanuel DURAN FACS RVT SIMÓN Pinto. [address], [address], [place], [address], [place]. tel:[phone] Referring Provider: Truong Colon MD, [address] [place] [address] Dr [address], [place], [address]. 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 [address], [facility] [address], [place], [address], [place]. [phone] Referring Provider: Truong Colon MD, [address] [place] [address] Dr [address], [place], [address]. 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 [address], [facility] [address], [place], [address], [place]. tel:[phone] Referring Provider: Truong Colno MD, [address], [place], [address]. tel:[phone] Family History Family Member Type Diagnosis Age At Onset No Information Payers Payer name Insurance type Covered constitution party ID Josefina haynes(s) [facility] [id number] Social History Type Description Quantity Date Captured [...]
--- OUTSIDE RECORDS SUMMARY | 2024-08-13 18:29 | XMS_ITS | Encounter Summary ---
Author Organization [facility] Address [address] [place] [address] Phone Care Team Providers Care Plastics Patternmaker Name Role Phone Truong Colon MD Primary Care Provider [phone]- [phone] Encounter Details Date Type Department Care Team (Late Contact Info) Description 08/12/2024 Documentation Only [facility] [address] [place] [address] [place] [address] [place] [address] Social History Tobacco Use Types Packs/Day [...] Services Of [address] [place] [address] Romero Jimenez MD [address] [place] [address] [place] [address] documented as of this encounter Visit Diagnoses Not on filedocumented in this encounter Care Teams Plastics Patternmaker Relationship Specialty Start Date End Date Truong Colon MD [address] [place] [address] PCP - General Internal Medicine 03/06/23 documented as of this encounter
--- OUTSIDE RECORDS SUMMARY | 2024-08-13 18:29 | XMS_ITS ---
Author Organization [facility] Address [address] [address] Care Team Providers Care Hide Inspector And Sorter Name Role Phone Isaiah DURAN, [place] Primary Care Provider Boby Laguerre Unavailable [phone] Allergies Allergen (clinical drug ingredient) Drug/Non Drug [...] Ordered Date Performed Result Body Sit e 31148-PGZWNYR NAIL, 6 OR MORE 01/24/2024 N/A 52365-Dzao Destruction, 1-14 01/24/2024 N/A 83966-WPFE SKIN LESIONS, OVER 4 01/24/2024 N/A Encounters Encounter Location Date Provider Diagnosis [facility] [place] [address] [place] [address] 01/24/2024 Boby Chapman Atherosclerosis of [place] artery of both lower extremities, with unspecified presence of clinical manifestation I70.203 ; Plantar wart B07.0 ; Tinea unguium B35.1 ; Pain in right toe(s) M79.674 ; Pain in left toe(s) M79.675 ; Left foot pain M79.672 and Xerosis of skin L85.3 Assessments Encounter Date Diagnosis (ICD Code) Assessment Notes Treatment Notes Treatment Clinical Notes Section Notes 01/24/2024 Atherosclerosis of [place] artery of both lower extremities, with unspecified [...] 01/24/2024 Pending Test Test Name Order Date 58343-GUQMWAN NAIL, 6 OR MORE 01/24/2024 96305-Hmce Destruction, 1-14 01/24/2024 07919-DOAA SKIN LESIONS, OVER 4 01/24/20 24 Next Appt Details Follow Up: 2 Months, Reason: Provider Name:Boby Chapman , 10/30/2024 02:45:00 PM, [address], [place], [address], Procedure Notes * Category Sub-Category Detail Notes Wart Treatment Procedure Verrucae were de brided to pin-point bleeding margins with sterile 15 surgical blade, silver nitrate chemocautery applied, recomm. immune-boosting meds such as zinc, recomm. follow up with topical chemosurgical agents, Pt defers any other forms of tx - 21000 Debride Nail 6-10 Nail debridement Performance o f this nail treatment by a nonprofessional would put this patients foot and overall health at risk. Therefore, nail debridement was performed extensively to reduce/remove overall nail length, girth, thickness, subungual debris, and necrotic tissue, by manual and/or electrical means through the use of a nail nipper and/or dremel-type precision jig grinder, to a more viable healthy nail plate or bed tissue 6-10. Silver nitrate used for any petechial bleeding as necessary. Definitive antifungal treatment options have been reviewed and discussed with the patient. The patient chooses, no pharmaceutical tx - 96285 Keratoma Treatment Parring or Cutting o f Benign Hyperkeratotic Lesion(s) (-57) More than 4 Lesions - The Benign hyperkeratotic lesions, as described above were pared, and/or cut utilizing a sterile 15 blade, tissue nippers, and/or dremel - 94597 , Q8 Progress Notes * Tommie BLANCASOB:[birth year] (78 yo F)Acc No.[id number]:01/24/2024 Progress Note Patient:?Jacinda BLANCAS Provider:?Boby Chapman DPM :1945???Age:78 Y???Sex:Female D ate:01/24/2024 Address:[address] [place] [phone] Pcp:Truong Colon MD Subjective: * Chief Complaints: [...] wart - B07.0 (Malka ngozi)???Specify :LEFT???2.?Atherosclerosis of [place] artery of both lower extremities, with unspecified presence of clinical manifestation - I70.203???3.?Tinea unguium - B35.1???4.?Pain in right toe(s) - M79.674???5.?Pain in left toe(s) - M79.675???6.?Left foot pain - M79.672???7.?Xerosis of skin - L85.3???Specify :Acute problem, Stable (1=3),Response to treatment - Improvement??? Plan: * Treatment: 2.?Atherosclerosis of [place] artery of both lower extremities, with unspecified presence of clinical manifestation?Procedure: 03175-DXPY SKIN LESIONS, OVER 4 3.?Tinea unguium?Procedure: 15450-BBFUZOG NAIL, 6 OR MORE 4.?Xerosis of skin? [...] use of a nail nipper and/or dremel-type precision jig grinder, to a more viable healthy nail plate or bed tissue 6-10. Silver nitrate used for any petechial bleeding as necessary. Definitive antifungal treatment options have been reviewed and discussed with the patient. The patient chooses, no pharmaceutical tx - 43824.?Keratoma Treatment:?Parring or Cutting of Benign Hyperkeratotic Lesion(s)?(-57) More than 4 Lesions - The Benign hyperkeratotic lesions, as described above were pared, and/or cut utilizing a sterile 15 blade, tissue nippers, and/or dremel - 89832 , Q8.?Wart Treatment:?Procedure?Verrucae were debrided to pin-point bleeding margins with sterile 15 surgical blade, silver nitrate chemocautery applied, recomm. immune-boosting meds such as zinc, recomm. follow up with topical chemosurgical agents, Pt defers any other forms of tx - 81325.? * Procedure Codes:?91545 DEBRI DE NAIL, 6 OR MORE, Modifiers: XS 62769 Wart Destruction, 1-14, Modifiers: XS 03228 TRIM SKIN LESIONS, OVER 4, Modifiers: XS [...] Chapman DPM Date:?2023 Generated for Yovanny toussaint/Leah/Lois on:?08/13/2024 06:29 PM EDT History and Physical Notes * [...]
--- OUTSIDE RECORDS SUMMARY | 2024-08-13 18:29 | XMS_ITS | Clinical Summary ---
Author Organization [facility] Address [address] [place] [address] Care Team Providers Care Marble Cleaner Name Role Phone Truong Colon MD Primary Care Provider +1- [phone] Allergies Active Allergy Reactions Criticality Noted Date [...] age to complete this topic Care Teams Marble Cleaner Relationship Specialty Start Date End Date Truong Colon MD [address] [place] [id number] PCP - General Internal Medicine 05/19/22
--- OUTSIDE RECORDS SUMMARY | 2024-08-13 18:29 | XMS_ITS | Encounter Summary ---
Author Organization [facility] Address [address] [place] [address] Phone Care Team Providers Care Brush Polisher Name Role Phone Truong Colon MD Primary Care Provider [phone]- [phone] Encounter Details Date Type Department Care Team (Late Contact Info) Description 05/12/2021 Documentation Only [facility] [address] [place] [address] Eligio Meza MD [address] [place] [address] [place] [address] Social History Tobacco Use Types [...] Visit [facility] [address] [place] [address] Romero Jimenez MD [address] [place] [address] documented as of this encounter Visit Diagnoses Not on filedocumented in this encounter Care Teams Brush Polisher Relationship Specialty Start Date End Date Truong Colon MD [address] [place] [address] PCP - General Internal Medicine 03/06/23 documented as of this encounter
--- OUTSIDE RECORDS SUMMARY | 2024-08-13 18:29 | XMS_ITS ---
Author Organization [facility] Address [address] [place] [address] Care Team Providers Care Speeder Worker Name Role Phone Truong Colon MD Primary Care Provider +1- [phone] Active Problems Problem Noted Date Diagnosed Date Iron deficiency anemia 05/18/2022 Malignant neoplasm of upper- outer quadrant of left breast in female, estrogen receptor positive 03/28/2017 Gastroesophageal reflux disease without esophagi tis 03/28/2017 Acquired hypothyroidism 03/28/2017 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 Current Oncology Plans No current plan information found. Past Plans Radiation Treatments * No radiation treatments are documented for this patient in [facility]. Treatments may have been administered in another system.
--- OUTSIDE RECORDS SUMMARY | 2024-08-13 18:29 | XMS_ITS | Encounter Summary ---
Author Organization [facility] Address [address] [place] [address] Phone Care Team Providers Care Assembly Line Supervisor Name Role Phone Truong Colon MD Primary Care Provider +1- [phone] Encounter Details Date Type Department Care Team (Late Contact Info) Description 05/16/2024 Orders Only [facility] [address] [place] [address] Kylie Gabriel [address] [place] [address] Anemia in chronic kidney disease; [...] Care Team (Late st Contact Info) Description 12/02/2024 1:40 PM EDT Office Visit [facility] [address] [place] [address] Romero Jimenez MD [address] [place] [address] documented as of this encounter Visit Diagnoses Diagnosis Anemia in chronic kidney disease Stage 3b chronic kidney disease (HCC) Iron deficiency anemia, not otherwise specified documented in this encounter Care Teams Assembly Line Supervisor Relationship Specialty Start Date End Date Turong Colon MD [address] [place] [address] PCP - General Internal Medicine 03/06/23 documented as of this encounter
--- OUTSIDE RECORDS SUMMARY | 2024-08-13 18:30 | XMS_ITS | Encounter Summary ---
Author Organization [facility] [place], Address [address] [place] [address] Phone Care Team Providers Care Lease Out Worker Name Role Phone Truong Colon MD Primary Care Provider +1- [phone] Encounter Details Date Type Department Care Team (Late Contact Info) Description 01/23/2024 Documentation Only [facility] [place], - [place] [address] [place] [address] Jasmin Dumont [address] [place] [address] Social History Tobacco Use Types Packs/Day [...] Visit [facility] [place], [address] [place] [address] Romero Jimenez MD [address] [place] [address] documented as of this encounter Visit Diagnoses Not on filedocumented in this encounter Care Teams Lease Out Worker Relationship Specialty Start Date End Date Truong Colon MD [address] [place] [address] PCP - General Internal Medicine 03/06/23 documented as of this encounter
--- OUTSIDE RECORDS SUMMARY | 2024-08-13 18:30 | XMS_ITS | Encounter Summary ---
Author Organization [facility] Address [address] [place] [address] Phone Care Team Providers Care Working Supervisor Name Role Phone Truong Colon MD Primary Care Provider +1- [phone] Encounter Details Date Type Department Care Team (Late Contact Info) Description 05/04/2022 Documentation Only [facility] [address] [place] [address] Kylie Gabriel [address] [place] [address] Social History Tobacco Use Types [...] [facility] [address] [place] [address] Romero Jimenez MD [address] [place] [address] [place] [address] documented as of this encounter Visit Diagnoses Not on filedocumented in this encounter Care Teams Working Supervisor Relationship Specialty Start Date End Date Truong Colon MD [address] [place] [address] PCP - General Internal Medicine 03/06/23 documented as of this encounter
--- OUTSIDE RECORDS SUMMARY | 2024-08-13 18:30 | XMS_ITS | Encounter Summary ---
Author Organization [facility] Address [address] [place] [address] Phone Care Team Providers Care Solder Making Supervisor Name Role Phone Truong Colon MD Primary Care Provider +1- [phone] Encounter Details Date Type Department Care Team (Late Contact Info) Description 04/04/2024 Documentation Only [facility] [address] [place] [address] Jasmin Dumont [address] [place] [address] Social History Tobacco Use Types [...] Visit [facility] [address] [place] [address] Romero Jimenez MD [address] [place] [address] [place] [address] documented as of this encounter Visit Diagnoses Not on filedocumented in this encounter Care Teams Solder Making Supervisor Relationship Specialty Start Date End Date Truong Colon MD [address] [place] [address] PCP - General Internal Medicine 03/06/23 documented as of this encounter
--- OUTSIDE RECORDS SUMMARY | 2024-08-13 18:30 | XMS_ITS | Encounter Summary ---
Author Organization [facility] Address [address] [place] [address] Phone Care Team Providers Care Flight Communications Officer Name Role Phone Truong Colon MD Primary Care Provider +1- [phone] Encounter Details Date Type Department Care Team (Late Contact Info) Description 01/14/2024 Documentation Only [facility] [address] [place] [address] [place] [address] [place] [address] Social History Tobacco Use Types Packs/Day [...] [facility] [address] [place] [address] Romero Jimenez MD [address] [place] [address] documented as of this encounter Visit Diagnoses Not on filedocumented in this encounter Care Teams Flight Communications Officer Relationship Specialty Start Date End Date Truong Colon MD [address] [place] [address] PCP - General Internal Medicine 03/06/23 documented as of this encounter
--- OUTSIDE RECORDS SUMMARY | 2024-08-13 18:30 | XMS_ITS | Encounter Summary ---
Author Organization [facility] Address [address] [place] [address] Phone Care Team Providers Care Pickle Solution Maker Name Role Phone Truong Colon MD Primary Care Provider +1- [phone] Encounter Details Date Type Department Care Team (Late Contact Info) Description 01/31/2024 Documentation Only [facility] [address] [place] [address] Kylie Gabriel [address] [place] [address] Social History Tobacco Use [...] [facility] [address] [place] [address] Romero Jimenez MD [address] [place] [address] [place] [address] documented as of this encounter Visit Diagnoses Not on filedocumented in this encounter Care Teams Pickle Solution Maker Relationship Specialty Start Date End Date Truong Colon MD [address] [place] [address] PCP - General Internal Medicine 03/06/23 documented as of this encounter
--- OUTSIDE RECORDS SUMMARY | 2024-08-13 18:30 | XMS_ITS | Encounter Summary ---
Author Organization [facility] Address [address] [place] [address] Phone Care Team Providers Care Reinforcing Steel Machine Operator Name Role Phone Truong Colon MD Primary Care Provider +1- [phone] Encounter Details Date Type Department Care Team (Late Contact Info) Description 04/24/2024 Documentation Only [facility] [address] [place] [address] Kylie Gabriel [address] [place] [address] Social History Tobacco Use Types [...] Visit [facility] [address] [place] [address] Romero Jimenez MD [address] [place] [address] [place] [address] documented as of this encounter Visit Diagnoses Not on filedocumented in this encounter Care Teams Reinforcing Steel Machine Operator Relationship Specialty Start Date End Date Truong Colon MD [address] [place] [address] PCP - General Internal Medicine 03/06/23 documented as of this encounter
--- OUTSIDE RECORDS SUMMARY | 2024-08-13 18:30 | XMS_ITS ---
Author Organization [facility] Address [address] [facility] [facility] [address] [place] [address] Care Team Providers Care Telephone Service Adviser Name Role Phone Isaiah DURAN, Truong Primary Care Provider Boby Laguerre Unavailable [phone] Allergies Allergen (clinical drug ingredient) Drug/Non Drug [...] Ordered Date Performed Result Body Sit e 52766-ZJKUCKK NAIL, 6 OR MORE 05/05/2024 N/A 77300-VDAQ SKIN LESIONS, OVER 4 05/05/2024 N/A Encounters Encounter Location Date Provider Diagnosis [facility] [address] [address] 05/05/2024 Boby Chapman Atherosclerosis of [place] artery of both lower extremities, with unspecified presence of clinical manifestation I70.203 ; Tinea unguium B35.1 ; Pain in right toe(s) M79.674 ; Pain in left toe(s) M79.675 ; Other hammer toe(s) (acquired), right foot M20.41 and Other hammer toe(s) (acquired), left foot M20.42 Assessments Encounter Date Diagnosis (ICD Code) Assessment Notes Treatment Notes Treatment Clinical Notes Section Notes 05/05/2024 Atherosclerosis of [place] artery of both lower extremities, with unspecified [...] days Pending Test Test Name Order Date 06255-[id number] NAIL, 6 OR MORE 05/05/2024 62591-WJDQ SKIN LESIONS, OVER 4 05/05/19 25 Next Appt Details Follow Up: 2 Months, Reason: Provider Name:Boby Chapman , 10/30/2024 02:45:00 PM, [address], [place], [address], Procedure Notes * Category Sub-Category Detail Notes [...] use of a nail nipper and/or dremel-type tankage grinder, to a more viable healthy nail [...] to maintain effectiveness in symptomatic relief - 58410 Keratoma Treatment Parring or Cutting o f [...] instrumentation by the physician of record - 92301, Q8 Progress Notes * Tommie BLANCASOB:[birth year] (78 yo F)Acc No.[id number]:05/05/2024 Progress Note Patient:?Jacinda BLANCAS Provider:?Boby Chapman DPM :1945???Age:78 Y???Sex:Female D ate:05/05/2024 Address:[address] [place], [place] [address] Pcp:Truong Colon MD Subjective: * Chief Complaints: [...] by , , who serves as , Bin Operator/Color Artist , additional Historian , and/who is physically present in exam room at time of visit.?ORIENTED:?person, place, and time.?FOOT EXAM:?Lower Extremity Neurological Exam performed:?Yes ?Visual exam of foot performed:?Yes ?Date?05/05/2024 ?Footwear Evaluation?Footwear Evaluation performed:?Yes??? Assessment: * Assessment: 1.?Tinea unguium - B35.1???2 .?Atherosclerosis of [place] artery of both lower extremities, with unspecified presence of clinical manifestation - I70.203 (Primary)???3.?Pain in right toe(s) - M79.674???4.?Pain in left toe(s) - M79.675 ??5.?Other hammer toe(s) (acquired), right foot - M20.41???Specify :Chronic problem, Worse (4),Rx Management (4)???6.?Other hammer toe(s) (acquired), left foot - M20.42???Specify :Chronic problem, Worse (4),Rx Management (4)??? Plan: * Treatment: 2.?Tinea unguium?Procedure: 43910-NWXTFBK NAIL, 6 OR MORE 3.?Other hammer toe(s) [...] use of a nail nipper and/or dremel-type tankage grinder, to a more viable healthy nail [...] to maintain effectiveness in symptomatic relief - 13037.?Keratoma Treatment:?Parring or Cutting of Benign Hyperkeratotic Lesion(s)?(-57) [...] instrumentation by the physician of record - 19585, Q8.? * Procedure Codes:?21491 DEBRI DE NAIL, 6 OR MORE, Modifiers: XS 09809 TRIM SKIN LESIONS, OVER 4, Modifiers: XS [...] Chapman DPM Date:?2024 Generated for Yovanny toussaint/Leah/Lois on:?08/13/2024 04:37 PM EDT History and Physical Notes * [...] by , , who serves as , Bin Operator/Color Artist , additional Historian , and/who is physically [...]
--- OUTSIDE RECORDS SUMMARY | 2024-08-13 18:30 | XMS_ITS | Encounter Summary ---
Author Organization [facility] [place], Address [address] [place] [address] Phone Care Team Providers Care Dredge Lever Operator Name Role Phone Truong Colon MD Primary Care Provider +1- [phone] Encounter Details Date Type Department Care Team (Late st Contact Info) Description 08/12/2024 1:30 PM EDT Office Visit [facility], [address] [place] [address] Romero Jimenez MD [address] [place] [address] [place] [address] Stage 3b chronic kidney disease (HCC) (Primary Dx) Social History Tobacco Use Types Packs/Day Years [...] as of this encounter Progress Notes * Romero Jimenez MD - 08/12/2024 1:30 PM EDT Images from the original note were not included. PATIENT: Jacinda Blancas : 1945 ENCOUNTER: 08/12/2024 PCP: Truong Colon MD HPI: Jacinda Blancas is a 78 y.o. 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 Her chief complaint is persistent back pain, which has not improved since her last visit. The patient reports that she still experiences significant back pain. She is scheduled for a scan to further evaluate this issue, after which her doctors will determine the next steps for pain management. At her previous visit, she was prescribed gabapentin 100mg daily for pain relief. However, shereports that this low dose doesn't do anything for her pain. She has been taking the medication as prescribed without any problems or unusual side effects. The patient denies feeling sleepy from the medication, which was a potential concern. In terms of overall health status, the patient reports good energy levels and adequate sleep. Her appetite appears to be stable. She has not experienced any new or concerning symptoms related to her chronic kidney disease. Medications and Supplements - Gabapentin 200 mg by mouth once daily at night - Recently started - No side effects reported - Patient reports it doesn't do anything ROS: Constitutional: No fever. Respiratory: No shortness of breath. Cardiovascular: No chest pain. Gastrointestinal: No abdominal pain, nausea or vomiting. Genitourinary: No hematuria. All other systems reviewed and are negative. PAST MEDICAL HISTORY: Patient Active Problem List Diagnosis Date Noted Peripheral vascular disease (HCC) 05/02/2022 Iron deficiency anemia, not otherwise specified 04/07/2022 Essential hypertension Stage 3b chronic kidney disease (HCC) 01/26/2021 Renal osteodystrophy 09/16/2020 Anemia in chronic kidney disease 05/14/2019 Hypertensive heart disease without congestive heart failure 05/14/2019 PAST SURGICAL HISTORY: Past Surgical History: Procedure Laterality Date BACK SURGERY BREAST LUMPECTOMY 05/2013 COLONOSCOPY 07/22/2004 ESOPHAGOGASTRODUODENOSCOPY 12/26/2007 GALLBLADDER SURGERY SOCIAL HISTORY: Social History Tobacco Use Smoking status: Never Smokeless tobacco: Not on file Substance Use Topics Alcohol use: No FAMILY HISTORY: Family History Problem Relation Age of Onset Cancer Mother MEDICATIONS: Outpatient Encounter Medications as of 08/12/2024 Medication Sig Dispense Refill acetaminophen (MAPAP ARTHRITIS PAIN) 650 MG 8 hr tablet Comments: Filled Date: Aug 08 2016 12:00AM Duration: 10 amLODIPine (NORVASC) 10 MG tablet Take 10 mg by mouth 1 (one) time each day calcitriol (ROCALTROL) 0.5 MCG capsule TAKE 2 CAPSULES BY MOUTH CADA SEMANA 24 capsule 14 carvedilol (COREG) 6.25 MG tablet Take 12.5 mg by mouth 2 (two) times a day with meals as directed docusate sodium (COLACE) 100 MG capsule TOME ASIA C PSULA DOS VECES AL D A Eliquis 2.5 MG tablet TAKE 1 TABLET TWICE DAILY IN THE AM + EVENING START DAY BEFORE PROCEDURE +CONTINUE FOR 1 MONTH AFTER gabapentin (Neurontin) 100 MG capsule Take 1 capsule (100 mg total) by mouth 1 (one) time each day 30 capsule 0 levothyroxine (SYNTHROID, LEVOTHROID) 125 MCG tablet Take 125 mcg by mouth 1 (one) time each day magnesium oxide 400 (240 Mg) MG tablet Take 1 tablet by mouth 1 (one) time each day omeprazole (PriLOSEC) [address] capsule TAKE 1 CAPSULE BY MOUTH DAILY FOR 180 DAYS. pregabalin (LYRICA) 75 MG capsule TOME 1 C PSULA POR V A ORAL AL ACOSTARSE tamoxifen (NOLVADEX) 20 MG chemo tablet Comments: Filled Date: May 02 2016 12:00AM Patient Notes: TOME ASIA TABLETA POR VIA ORAL TODOS LOS TREVINO Duration: 90 valACYclovir (VALTREX) 500 MG tablet Take 500 mg by mouth in the morning and 500 mg in the evening.TWICE A DAY FOR 7 DAYS. No facility-administered encounter medications on file as of 08/12/2024. MEDICATION REVIEW: I have reviewed the patient's current medications. ALLERGIES: is allergic to guaifenesin-codeine, penicillins, hydroxychloroquine, lisinopril, and senna. PHYSICAL EXAM: Vital Signs - Blood Pressure: 145/70 mmHg Laboratory, Imaging, and Diagnostic Test Results - Date: July 2024 - Creatinine: 1.23 mg/dL (normal < 1.0) - CBC: WBC normal, Hemoglobin normal, Platelets normal - Previous results: - Creatinine: ~1.3 mg/dL Constitutional: No apparent distress Cardiovascular: No friction rub. Pulmonary/Chest: No rales. Abdominal: Soft and non-tender. Extremities: Edema None LABS: Chemistry Lab Units 10/17/23 1728 10/15/23 1115 09/12/23 1651 09/10/23 1148 08/15/23 1456 06/20/23 1524 05/01/23 1341 05/01/23 1302 03/06/23 1104 03/06/23 1043 01/16/23 1430 01/16/23 1203 10/16/22 1130 10/16/22 1059 CREATININE mg/dL -- 1.36* -- 1.54* -- -- -- 1.0 -- -- -- 1.1* -- 1.3* BUN mg/dL -- 22 -- 28* -- -- -- 17 -- -- -- 22 -- 30* POTASSIUM mmol/L -- 4.9 -- 5.6* -- -- -- 5.1 -- -- -- 5.6* -- 5.2 SODIUM mmol/L -- 136 -- 138 -- -- -- 140 -- -- -- 137 -- 135 CO2 mmol/L -- 24 -- 24 -- -- -- 28 -- -- -- 29 -- 26 CHLORIDE mmol/L -- 100 -- 99 -- -- -- 103 -- -- -- 102 -- 100 ALBUMIN g/dL -- 4.0 -- 4.1 -- -- -- 4.1 -- -- -- 3.9 -- 4.0 EGFRNAFR ML/MIN/1.73 M2 -- -- -- -- -- -- -- 57 -- -- -- 51 -- 43 WBC AUTO x10E3/uL -- 4.5 -- 5.2 -- -- -- 5.5 -- 5.6 -- 4.4 -- 5.7 HEMATOCRIT % -- 37.0 -- 40.0 -- -- -- 37.5 -- 36.1 -- 36.9 -- 34.8* HEMOGLOBIN 11.9 12.0 11.2 12.4 11.9 10.3 < > 11.5* < > 11.3* < > 11.1* < > 10.7* PLATELETS AUTO x10E3/uL -- 195 -- 222 -- -- -- 218 -- 214 -- 229 -- 261 < > = values in this interval not displayed. Bone Mineral Lab Units 10/15/23 1115 09/10/23 1148 05/01/23 1302 01/16/23 1203 10/16/22 1059 CALCIUM mg/dL 9.5 10.0 9.6 9.6 9.7 PHOSPHORUS mg/dL 4.0 4.4* 4.1 4.0 4.2 PTH PG/ML -- -- -- 36 -- VITAMIN D NG/ML -- -- -- 35.4 -- LABORATORY REVIEW: I have reviewed the labs noted above as well as in the chart, in [facility] and in Care Everywhere. DOCUMENTATION REVIEW: I have reviewed the applicable outside notes located in the chart, in [facility]IS and in Care Everywhere. ASSESSMENT: 1. Stage 3b chronic kidney disease (HCC) Delightful lady with a history of longstanding CKD and baseline serum creatinine of 1 to 1.5 further evaluation of her stage IIIb CKD. At this point her current medical issues include 1. CKD- Patient's kidney function remains stable with a creatinine of 1.23 mg/dL in July, consistent with levels over the past 5 years. While not within normal range, this level of kidney function is reassuring and does not indicate a need for dialysis or transplant in the foreseeable future. Plan: - Continue current management - Reassess kidney function with labs in December-January Chronic Back Pain Assessment: Patient reports ongoing significant back pain. Previously prescribed gabapentin 100 mg daily has not provided adequate relief. Patient denies any adverse effects from the current dose. Plan: - Increase gabapentin to 300 mg PO daily, preferably at night - Titrate dose upwards every 1-2 weeks as tolerated - Follow up in 1 week to assess pain control and medication efficacy - Patient to undergo imaging scan (type not specified) for further evaluation Hypertension Assessment: Blood pressure elevated today at 145/70 mmHg. Patient reports occasional symptoms suggestive of hypotension at home, but measurements have been normal. Plan: - Patient to monitor blood pressure at home 2-3 times over the next week - Target blood pressure < 140 mmHg systolic - Follow up in 1 week to review home blood pressure readin No orders of the defined types were placed in this encounter. documented in this encounter Plan of Treatment Upcoming Encounters Date Type Department Care Team (Late st Contact Info) Description 12/02/2024 1:40 PM EDT Office Visit [facility] [place], [address] [place] [address] Romero Jimenez MD [address] [place] [address] documented as of this encounter Visit Diagnoses Diagnosis Stage 3b chronic kidney disease (HCC)- Primary documented in this encounter Care Teams Dredge Lever Operator Relationship Specialty Start Date End Date Truong Colon MD [address] [facility] [address] [place] [address] PCP - General Internal Medicine 03/06/23 documented as of this encounter
--- OUTSIDE RECORDS SUMMARY | 2024-08-13 18:30 | XMS_ITS | Encounter Summary ---
Author Organization [facility] Address [address] [place] [address] Phone Care Team Providers Care Saw Filer Name Role Phone Truong Colon MD Primary Care Provider +1- [phone] Encounter Details Date Type Department Care Team (Late Contact Info) Description 10/26/2023 Documentation Only [facility] [address] [place] [address] Kylie Gabriel [address] [place] [address] Social History Tobacco Use Types [...] [facility] [address] [place] [address] Romero Jimenez MD [address] [place] [address] [place] [address] documented as of this encounter Visit Diagnoses Not on filedocumented in this encounter Care Teams Saw Filer Relationship Specialty Start Date End Date Truong Colon MD [address] [place] [address] PCP - General Internal Medicine 03/06/23 documented as of this encounter
--- OUTSIDE RECORDS SUMMARY | 2024-08-13 18:30 | XMS_ITS | Encounter Summary ---
Author Organization [facility] Address [address] [place] [address] Phone Care Team Providers Care Slot Machine Mechanic Name Role Phone Truong Colon MD Primary Care Provider +1- [phone] Encounter Details Date Type Department Care Team (Late Contact Info) Description 04/14/2022 Documentation Only [facility] [address] [place] [address] Eligio Meza MD [address] [place] [address] [place] [address] Social History Tobacco Use Types [...] Visit [facility] [address] [place] [address] Romero Jimenez MD [address] [place] [address] documented as of this encounter Visit Diagnoses Not on filedocumented in this encounter Care Teams Slot Machine Mechanic Relationship Specialty Start Date End Date Truong Colon MD [address] [place] [address] PCP - General Internal Medicine 03/06/23 documented as of this encounter
--- OUTSIDE RECORDS SUMMARY | 2024-08-13 18:30 | XMS_ITS | Encounter Summary ---
Author Organization [facility] Address [address] [place] [address] Phone Care Team Providers Care Magazine Worker Name Role Phone Truong Colon MD Primary Care Provider +1- [phone] Encounter Details Date Type Department Care Team (Late Contact Info) Description 01/21/2024 Orders Only [facility] [address] [place] [address] Dimitris Suarez PA Stage 3a [...] [facility] [address] [place] [address] Romero Jimenez MD [address] [place] [address] [place] [address] documented as of this encounter Visit Diagnoses Diagnosis Stage 3a chronic kidney disease (HCC) Essential hypertension Peripheral vascular disease (HCC) Peripheral vascular disease Renal osteodystrophy documented in this encounter Care Teams Magazine Worker Relationship Specialty Start Date End Date Truong Colon MD [address] [place] [address] PCP - General Internal Medicine 03/06/23 documented as of this encounter
--- OUTSIDE RECORDS SUMMARY | 2024-08-13 18:30 | XMS_ITS | Encounter Summary ---
Author Organization [facility] Address [address] [place] [address] Phone Care Team Providers Care Tube Laser Operator Name Role Phone Truong Colon MD Primary Care Provider +1- [phone] Encounter Details Date Type Department Care Team (Late Contact Info) Description 08/04/2024 Documentation Only [facility] [address] [place] [address] Kylie Gabriel [address] [place], [...] Visit [facility] [address] [place] [address] Romero Jimenez MD [address] [place] [address] [place] [address] documented as of this encounter Visit Diagnoses Not on filedocumented in this encounter Care Teams Tube Laser Operator Relationship Specialty Start Date End Date Truong Colon MD [address] [place] [address] PCP - General Internal Medicine 03/06/23 documented as of this encounter
--- OUTSIDE RECORDS SUMMARY | 2024-08-13 18:30 | XMS_ITS | Encounter Summary ---
Author Organization [facility] Address [address] [place] [address] Phone Care Team Providers Care Correctional Supervisor Name Role Phone Truong Colon MD Primary Care Provider +1- [phone] Encounter Details Date Type Department Care Team (Late Contact Info) Description 04/11/2022 Documentation Only [facility] [address] [place] [address] Kylie Gabriel [address] [place] [address] Social History Tobacco Use Types [...] [facility] [address] [place] [address] Romero Jimenez MD [address] [place] [address] [place] [address] documented as of this encounter Visit Diagnoses Not on filedocumented in this encounter Care Teams Correctional Supervisor Relationship Specialty Start Date End Date Truong Colon MD [address] [place] [address] PCP - General Internal Medicine 03/06/23 documented as of this encounter
--- OUTSIDE RECORDS SUMMARY | 2024-08-13 18:30 | XMS_ITS | Encounter Summary ---
Author Organization [facility] Address [address] [place] [address] Phone Care Team Providers Care Tool Analyst Name Role Phone Truong Colon MD Primary Care Provider +1- [phone] Encounter Details Date Type Department Care Team (Late Contact Info) Description 06/13/2024 Orders Only [facility] [address] [place] [address] Kylie Gabriel [address] [place] [address] Anemia in chronic kidney disease; [...] Visit [facility] [address] [place] [address] Romero Jimenez MD [address] [place] [address] documented as of this encounter Visit Diagnoses Diagnosis Anemia in chronic kidney disease Stage 3b chronic kidney disease (HCC) Iron deficiency anemia, not otherwise specified documented in this encounter Care Teams Tool Analyst Relationship Specialty Start Date End Date Truong Colon MD [address] [place] [address] PCP - General Internal Medicine 03/06/23 documented as of this encounter
--- OUTSIDE RECORDS SUMMARY | 2024-08-13 18:30 | XMS_ITS | Encounter Summary ---
Author Organization [facility], Address [address] [place] [address] Phone Care Team Providers Care Patrol Judge Name Role Phone Truong Colon MD Primary Care Provider +1- [phone] Encounter Details Date Type Department Care Team (Late Contact Info) Description 08/11/2024 Office Communication [facility] [address] [place] [address] Deisi Wakefield, ROGELIO [address] [place] [address] Social History Tobacco Use Types [...] Telephone Encounter - Deisi Wakefield RN - 08/11/2024 2:36 PM EDT Please get lab results from [facility]. She was supposed to go last week. Thank you documented in this encounter Plan of Treatment Upcoming Encounters Date Type Department Care Team (Late Contact Info) Description 12/02/2024 1:40 PM EDT Office Visit [facility], [address] [place] [address] Romero Jimenez MD [address] [place] [id number] documented as of this encounter Visit Diagnoses Not on filedocumented in this encounter Care Teams Patrol Judge Relationship Specialty Start Date End Date Truong Colon MD [address] [place] [address] PCP - General Internal Medicine 03/06/23 documented as of this encounter
--- OUTSIDE RECORDS SUMMARY | 2024-08-13 18:30 | XMS_ITS | Patient Health Record ---
Author Organization [facility] camilla Broomall Address [address] [facility] [place] [address] Care Team Providers Care Risk Control Manager Name Role Phone Isaiah DURAN, [place] Primary Care Provider Boby Laguerre Unavailable [phone] Allergies Allergen (clinical drug ingredient) Drug/Non Drug [...] Problem Acquired hammer toe of right foot (5025620637338219 ) Other hammer toe(s) (acquired), right foot (M20.41) Active confirmed Response to treatment, Improvemen t Problem Acquired hammer toe of left foot (7522708543235363 ) Other hammer toe(s) (acquired), left foot (M20.42) Active confirmed Response to treatment, Improvemen t Problem Atherosclerosis of [place] arteries of the extremities ([id number]) Atherosclerosis of [place] artery of both lower extremities, with unspecified presence of clinical manifestation (I70.203) Active confirmed Vital Signs Blood pressure diastolic 64 mm Hg 07/31/2024 Height 5 ft 9in in 07/31/2024 Blood pressure systolic 127 mm Hg 07/31/2024 Weight 233 lbs 07/31/2024 BMI 34.4 kg/m2 07/31/2024 Procedures Procedure Date Ordered Date Performed Result Body Sit e 89675-AEZSZKB NAIL, 6 OR MORE 08/30/2023 N/A 74285-Hpbq Destruction, 1-14 08/30/2023 N/A 79590-Xmjxfswo Plate 08/30/2023 N/A 81335-Mzgxmilb Plate Each Additional 08/30/2023 N/A 05573-KDJF SKIN LESIONS, OVER 4 08/30/2023 N/A 75277-AHEAZBE NAIL, 6 OR MORE 11/08/2023 N/A 91677-Cjed Destruction, 1-14 11/08/2023 N/A 23175-Cxhzhvic Plate 11/08/2023 N/A 47059-Cyhswkrz Plate Each Additional 11/08/2023 N/A 28498-YYAE SKIN LESIONS, OVER 4 11/08/2023 N/A 60829-DSOOPYF NAIL, 6 OR MORE 01/24/2024 N/A 29659-Fkan Destruction, 1-14 01/24/2024 N/A 79674-BKLZ SKIN LESIONS, OVER 4 01/24/2024 N/A 30362-WZTAJFN NAIL, 6 OR MORE 05/05/2024 N/A 17782-GIBT SKIN LESIONS, OVER 4 05/05/2024 N/A 44584-BJDOAHB NAIL, 6 OR MORE 07/31/2024 N/A 82815-PMCQ SKIN LESIONS, OVER 4 07/31/2024 N/A Encounters Encounter Location Date Provider Diagnosis [address] [address] 08/30/2023 Boby Chapman Atherosclerosis of [place] artery of both lower extremities, with unspecified presence of clinical manifestation I70.203 ; Plantar wart B07.0 ; Tinea unguium B35.1 ; Pain in right toe(s) M79.674 ; Pain in left toe(s) M79.675 ; Ingrown nail L60.0 and Left foot pain M79.[address] [address] 11/08/2023 Boby Chapman Atherosclerosis of [place] artery of both lower extremities, with unspecified presence of clinical manifestation I70.203 ; Plantar wart B07.0 ; Tinea unguium B35.1 ; Pain in right toe(s) M79.674 ; Pain in left toe(s) M79.675 ; Ingrown nail L60.0 ; Left foot pain M79.672 and Xerosis of skin L85.[address] [address] 01/24/2024 Boby Chapman Atherosclerosis of [place] artery of both lower extremities, with unspecified presence of clinical manifestation I70.203 ; Plantar wart B07.0 ; Tinea unguium B35.1 ; Pain in right toe(s) M79.674 ; Pain in left toe(s) M79.675 ; Left foot pain M79.672 and Xerosis of skin L85.[address] [address] 05/05/2024 Boby Chapman Atherosclerosis of [place] artery of both lower extremities, with unspecified presence of clinical manifestation I70.203 ; Tinea unguium B35.1 ; Pain in right toe(s) M79.674 ; Pain in left toe(s) M79.675 ; Other hammer toe(s) (acquired), right foot M20.41 and Other hammer toe(s) (acquired), left foot M20.[address] [address] 07/31/2024 Boby Chapman Atherosclerosis of [place] artery of both lower extremities, [...] wart (ICD-10 - B07.0) 08/30/2023 Atherosclerosis of [place] artery of both lower extremities, with unspecified presence of clinical manifestation (ICD-10 - I70.203) 11/08/2023 Plantar wart (ICD-10 - B07.0) 11/08/2023 Atherosclerosis of [place] artery of both lower extremities, with unspecified presence of clinical manifestation (ICD-10 - I70.203) 01/24/2024 Plantar wart (ICD-10 - B07.0) 01/24/2024 Atherosclerosis of [place] artery of both lower extremities, with unspecified presence of clinical manifestation (ICD-10 - I70.203) 05/05/2024 Tinea unguium (ICD-10 - B35.1) 05/05/2024 Atherosclerosis of [place] artery of both lower extremities, with unspecified presence of clinical manifestation (ICD-10 - I70.203) 07/31/2024 Tinea unguium (ICD-10 - B35.1) 07/31/2024 Atherosclerosis of [place] artery of both lower extremities, [...] Treatment Pending Test Test Name Order Date 52619-BXELEDC NAIL, 6 OR MORE 03/21/2017 60297-KLQCKGV NAIL, 6 OR MORE 05/30/2017 32681-IUDOKGL NAIL, 6 OR MORE 08/06/2017 99034-CIFDYDA NAIL, 6 OR MORE 10/25/2017 01646-NUASFMM NAIL, 6 OR MORE 03/20/2018 72579-CBZPKXG NAIL, 6 OR MORE 06/13/2018 98125-IDHQDEO NAIL, 6 OR MORE 01/07/2018 50061-CCPVOAU NAIL, 6 OR MORE 08/14/2018 98635-QFAEYUO NAIL, 6 OR MORE 10/17/2018 90955-VJMYAJW NAIL, 6 OR MORE 01/16/2019 57587-ROTMNPI NAIL, 6 OR MORE 04/03/2019 68058-YBYYZSO NAIL, 6 OR MORE 06/16/2019 26261-VFXPGRW NAIL, 6 OR MORE 08/27/2019 26203-SHKUDSI NAIL, 6 OR MORE 12/18/2019 24668-JVMZUUJ NAIL, 6 OR MORE 05/06/2020 30143-MBHBTXL NAIL, 6 OR MORE 07/15/2020 64198-YLJLALN NAIL, 6 OR MORE 09/29/2020 88344-QIOALYX NAIL, 6 OR MORE 12/02/2020 36809-KQKNJEQ NAIL, 6 OR MORE 02/17/2021 41909-ZALHXJQ NAIL, 6 OR MORE 06/16/2021 58908-RFEWRZK NAIL, 6 OR MORE 08/29/2021 16662-PEZDSBO NAIL, 6 OR MORE 11/10/2021 73739-HAVVWDC NAIL, 6 OR MORE 01/19/2022 04315-XRVFGFZ NAIL, 6 OR MORE 04/05/2022 38119-QNZMDJT NAIL, 6 OR MORE 06/15/2022 64289-QITWMKU NAIL, 6 OR MORE 08/24/2022 27083-KMLZGHZ NAIL, 6 OR MORE 11/16/2022 43889-IXOZWCC NAIL, 6 OR MORE 01/25/2023 85318-BRCXIPH NAIL, 6 OR MORE 04/11/2023 75751-CRZXGYP NAIL, 6 OR MORE 06/27/2023 11101-NJRASOG NAIL, 6 OR MORE 08/30/2023 24486-GAGOGTO NAIL, 6 OR MORE 11/08/2023 46637-IRPJIKX NAIL, 6 OR MORE 01/24/2024 81911-ENGHUPQ NAIL, 6 OR MORE 05/05/2024 19844-DQFCIDG NAIL, 6 OR MORE 07/31/2024 07606-FQCLROC NAIL, 1-5 11/01/2016 78801-ACIHCLO NAIL, 1-5 01/03/2017 87698-QFOTTBR NAIL, 1-5 11/15/2015 33509-FFEZZWY NAIL, 1-5 01/24/2016 13000-KUXNTUZ NAIL, 1-5 04/05/2016 87289-JMPPWVD NAIL, 1-5 06/14/2016 12717-BQQOHLA NAIL, -5 08/23/2016 64424-Iyil Destruction, -14 11/01/2016 28298-Gjhn Destruction, -14 01/03/2017 85544-Seva Destruction, -14 03/21/2017 33789-Pjoe Destruction, -14 05/30/2017 40708-Tafn Destruction, -14 08/06/2017 84522-Gblh Destruction, -14 05/06/2020 13568-Vejh Destruction, -14 12/18/2019 28344-Shgs Destruction, 05-0608/27/2019 25623-Qhng Destruction, 05-0606/16/2019 39828-Umkg Destruction, -14 04/03/2019 64718-Odzv Destruction, -14 01/16/2019 80213-Jdlf Destruction, -14 10/17/2018 16433-Fkpp Destruction, 05-0608/14/2018 18786-Qrqu Destruction, 05-0606/13/2018 14998-Lofa Destruction, 05-0610/25/2017 68439-Tqal Destruction, 05-0601/07/2018 77093-Pyeo Destruction, 05-0608/30/2023 97654-Xzwm Destruction, 05-0606/27/2023 05123-Ygbu Destruction, 05-0604/11/2023 41984-Zkgm Destruction, 05-0601/25/2023 39424-Dpcm Destruction, 05-0611/16/2022 97679-Djzc Destruction, 05-0608/24/2022 90228-Rsky Destruction, 05-0606/15/2022 63984-Xkiv Destruction, 05-0604/05/2022 03818-Uyxq Destruction, 05-0601/19/2022 54323-Xnbi Destruction, 05-0606/16/2021 70654-Dqla Destruction, 05-0603/20/2018 39521-Lsiz Destruction, 05-0611/10/2021 34405-Nwnk Destruction, 05-0608/29/2021 09927-Uvrm Destruction, 05-0602/17/2021 81345-Dzpq Destruction, 05-0612/02/2020 03079-Uhze Destruction, 05-0609/29/2020 57741-Qqfc Destruction, 05-0607/15/2020 09954-Nefu Destruction, 05-0601/24/2024 05702-Jiic Destruction, 05-0611/08/2023 61969-Vkphtify Plate 11/08/2023 88278-Rurrkevi Plate 09/29/2020 66903-Rhyjuaeq Plate 12/02/2020 03305-Bbiegjep Plate 02/17/2021 85034-Gcjdvswj Plate 06/16/2021 54120-Jiyvvdkl Plate 08/29/2021 27295-Hzszazct Plate 11/10/2021 99948-Mljealgq Plate 01/19/2022 27583-Rhpikwup Plate 04/05/2022 50892-Qlrlaseh Plate 06/15/2022 02731-Tigruvsp Plate 08/24/2022 20535-Dfvnhbmz Plate 11/16/2022 22972-Vdpjzhlv Plate 01/25/2023 20596-Ojwadjvn Plate 04/11/2023 49545-Ohbvzpzv Plate 06/27/2023 71403-Gpcxfcvj Plate 08/30/2023 77488-Mchwkjcy Plate 12/18/2019 32061-Otqnbnbg Plate 05/06/2020 02324-Uqmhbhei Plate 07/15/2020 94457-Gzvyqtls Plate 11/01/2016 72888-Cmlzukxc Plate Each Additional 12/2023 75603-Mwgayobz Plate Each Additional 09/2023 32594-Wyrpyyab Plate Each Additional 04395-Euflncgz Plate Each Additional 08/2022 09232-Xhgqzmya Plate Each Additional 05689-Zntttflr Plate Each Additional 07/2022 03782-Vkvxipco Plate Each Additional 20317-Vwerumrd Plate Each Additional 47880-Evjpeyfz Plate Each Additional 10175-Wumdhydj Plate Each Additional 82521-ZSJR SKIN LESIONS, OVER 4 11/08/19 24 67366-RWAW SKIN LESIONS, OVER 4 01/24/20 24 31953-ZHVD SKIN LESIONS, OVER 4 05/05/19 67762-DVYF SKIN LESIONS, OVER 4 08/01/19 18359-YCFK SKIN LESIONS, OVER 4 06/16/19 63189-YBPS SKIN LESIONS, OVER 4 01/20/20 44328-RBGU SKIN LESIONS, OVER 4 11/11/19 40486-YPAX SKIN LESIONS, OVER 4 08/30/19 47559-ZBVX SKIN LESIONS, OVER 4 02/18/20 21 64345-SBKG SKIN LESIONS, OVER 4 12/03/19 42465-ORHH SKIN LESIONS, OVER 4 09/30/19 21 36949-XWIG SKIN LESIONS, OVER 4 07/16/19 20970-TDZD SKIN LESIONS, OVER 4 04/05/20 01292-DAIT SKIN LESIONS, OVER 4 06/15/19 23 39171-HGPU SKIN LESIONS, OVER 4 08/25/19 14364-ALAO SKIN LESIONS, OVER 4 11/17/19 23 07123-FHIN SKIN LESIONS, OVER 4 01/26/20 16340-OMKX SKIN LESIONS, OVER 4 12/20/20 23 50458-SHRH SKIN LESIONS, OVER 4 06/27/19 24 09267-IHJZ SKIN LESIONS, OVER 4 08/30/19 24 54594-QMZZ SKIN LESIONS, OVER 4 03/21/20 17 74356-IWUO SKIN LESIONS, OVER 4 01/04/20 17 47440-PLWI SKIN LESIONS, OVER 4 10/26/19 18 46817-VUZQ SKIN LESIONS, OVER 4 08/07/19 18 79176-DIDH SKIN LESIONS, OVER 4 05/30/19 18 84609-LVIH SKIN LESIONS, OVER 4 11/02/19 17 23120-PZJP SKIN LESIONS, OVER 4 06/14/19 17 46057-ZCBU SKIN LESIONS, OVER 4 04/05/20 16 65161-FZEE SKIN LESIONS, OVER 4 08/24/19 17 38786-LIXJ SKIN LESIONS, OVER 4 01/24/20 16 25635-AWDZ SKIN LESIONS, OVER 4 11/15/19 16 47600-JXUK SKIN LESIONS, OVER 4 08/16/19 16 17879-IPDW SKIN LESIONS, OVER 4 05/06/19 21 21364-TBRU SKIN LESIONS, OVER 4 12/18/19 20 87616-PRQX SKIN LESIONS, OVER 4 08/27/19 20 77532-GHKW SKIN LESIONS, OVER 4 04/03/20 19 55779-FSQW SKIN LESIONS, OVER 4 06/16/19 20 64421-WVCD SKIN LESIONS, OVER 4 01/08/20 18 07081-XLHB SKIN LESIONS, OVER 4 06/13/19 19 63227-STZR SKIN LESIONS, OVER 4 08/15/19 19 87108-AHVW SKIN LESIONS, OVER 4 03/20/20 18 98007-REMF SKIN LESIONS, OVER 4 10/18/19 19 60199-DLJL SKIN LESIONS, OVER 4 01/17/20 19 C0065-ZUEWNQXC DYSTROPHIC NAILS ANY # N5950-FAKOQBTA DYSTROPHIC NAILS ANY # G2362-ILAEYAQQ DYSTROPHIC NAILS ANY # T0962-NNXIZACR DYSTROPHIC NAILS ANY # A7735-QDNRUWPH DYSTROPHIC NAILS ANY # G0895-NCWBFLIM DYSTROPHIC NAILS ANY # Y1081-XNCJORQF DYSTROPHIC NAILS ANY # W6753-GFOLVQMZ DYSTROPHIC NAILS ANY # Next Appt Details Provider Name:Boby Chapman , 10/30/2024 02:45:00 PM, [address] [facility], [address], [place], [address], Insurance Providers Payer Name Payer Address Payer Phone Subscriber Number Group Number Insured Name Patient Relationship to Insured Coverage Start Date Coverage End Date [facility] [employer] Claims [address] [place] [address] [phone] [id number] Jacinda Benavidez Self - patient is the insured Medical (General) History Medical History History ICD Code Anemia Anxiety Arthritis Back,Hip,and Knee pain Cataracts High blood pressure Liver disease Reflux Thyroid disorder Surgical History Surgery Date(Month/Year) gall bladder 12/11/2014 Unspecified Right Hand SX 03/13/17
--- OUTSIDE RECORDS SUMMARY | 2024-08-13 18:30 | XMS_ITS | Encounter Summary ---
Author Organization [facility] Address [address] [place] [address] Phone Care Team Providers Care Mutual Fund Sales Agent Name Role Phone Truong Colon MD Primary Care Provider +1- [phone] Encounter Details Date Type Department Care Team (Late Contact Info) Description 11/09/2021 Documentation Only [facility] [address] [place] [address] Dimitris Suarez PA Social History [...] Upcoming Encounters Date Type Department Care Team ([facility] Contact Info) Description 12/02/2024 1:40 PM EDT Office Visit [facility] [address] [place] [address] Romero Jimenez MD [address] [place] [address] [place] [address] documented as of this encounter Visit Diagnoses Not on filedocumented in this encounter Care Teams Mutual Fund Sales Agent Relationship Specialty Start Date End Date Truong Colon MD [address] [place], [place] [id number] PCP - General Internal Medicine 03/06/23 documented as of this encounter
--- OUTSIDE RECORDS SUMMARY | 2024-08-13 18:30 | XMS_ITS | Encounter Summary ---
Author Organization [facility] Address [address] [place] [address] Phone Care Team Providers Care Service Mechanic Name Role Phone Truong Colon MD Primary Care Provider +1- [phone] Encounter Details Date Type Department Care Team (Late Contact Info) Description 06/03/2024 Documentation Only [facility] [address] [place] [address] Kylie Gabriel [address] [place] [address] Social History Tobacco Use Types [...] Visit [facility] [address] [place] [address] Romero Jimenez MD [address] [place] [address] [place] [address] documented as of this encounter Visit Diagnoses Not on filedocumented in this encounter Care Teams Service Mechanic Relationship Specialty Start Date End Date Truong Colon MD [address] [place] [address] PCP - General Internal Medicine 03/06/23 documented as of this encounter
--- OUTSIDE RECORDS SUMMARY | 2024-08-13 18:30 | XMS_ITS | Encounter Summary ---
Author Organization [facility] Address [address] [place] [address] Phone Care Team Providers Care Lab Animal Technologist Name Role Phone Truong Colon MD Primary Care Provider +1- [phone] Encounter Details Date Type Department Care Team (Late Contact Info) Description 12/21/2021 Documentation Only [facility] [address] [place] [address] Dimitris Suarez PA Social History [...] Upcoming Encounters Date Type Department Care Team ([facility] Contact Info) Description 12/02/2024 1:40 PM EDT Office Visit [facility] [address] [place] [address] Romero Jimenez MD [address] [place] [address] [place] [address] documented as of this encounter Visit Diagnoses Not on filedocumented in this encounter Care Teams Lab Animal Technologist Relationship Specialty Start Date End Date Truong Colon MD [address] [place], [place] [id number] PCP - General Internal Medicine 03/06/23 documented as of this encounter
--- OUTSIDE RECORDS SUMMARY | 2024-08-13 18:30 | XMS_ITS | Encounter Summary ---
Author Organization [facility] Address [address] [place] [address] Phone Care Team Providers Care Chemical Economist Name Role Phone Truong Colon MD Primary Care Provider +1- [phone] Encounter Details Date Type Department Care Team (Late Contact Info) Description 08/08/2024 Orders Only [facility] [address] [place] [address] Kylie Gabriel [address] [place] [address] Anemia in chronic kidney disease; [...] Visit [facility] [address] [place] [address] Romero Jimenez MD [address] [place] [address] documented as of this encounter Visit Diagnoses Diagnosis Anemia in chronic kidney disease Stage 3b chronic kidney disease (HCC) Iron deficiency anemia, not otherwise specified documented in this encounter Care Teams Chemical Economist Relationship Specialty Start Date End Date Truong Colon MD [address] [place] [address] PCP - General Internal Medicine 03/06/23 documented as of this encounter
--- OUTSIDE RECORDS SUMMARY | 2024-08-13 18:30 | XMS_ITS | Encounter Summary ---
Author Organization [facility] Address [address] [place] [address] Phone Care Team Providers Care Mud Analysis Operator Name Role Phone Truong Colon MD Primary Care Provider +1- [phone] Encounter Details Date Type Department Care Team (Late Contact Info) Description 04/10/2024 Documentation Only [facility] [address] [place] [address] Kylie Gabriel [address] [place] [address] Social History Tobacco Use Types [...] Visit [facility] [address] [place] [address] Romero Jimenez MD [address] [place] [address] [place] [address] documented as of this encounter Visit Diagnoses Not on filedocumented in this encounter Care Teams Mud Analysis Operator Relationship Specialty Start Date End Date Truong Colon MD [address] [place] [address] PCP - General Internal Medicine 03/06/23 documented as of this encounter
--- OUTSIDE RECORDS SUMMARY | 2024-08-13 18:30 | XMS_ITS | Clinical Summary ---
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 Encounters Date Type Department Care Team Description 07/17/2024 10:53 AM EDT - 07/17/2024 11:59 PM EDT Hospital [facility] [address] [id number] Encounter for screening mammogram for malignant neoplasm of breast Discharge Disposition: Home or Self Care 06/09/2024 Telephone [facility] Hematology Oncology [address] [place] [phone] Jillian-Jennifer Brooks MD from Last 3 Months Surgical History Surgery Date Site/Laterality Comments LUMBAR DISC SURGERY PROCEDURE:LUMBAR DISC SURGERY Medical History Medical History Date Comments Malignant neoplasm of upper- outer quadrant of left female breast ([facility] V24, [facility] V28) DX:Malignant neoplasm of upp er-outer quadrant [...] Description 10/02/2024 11:00 AM EDT Office Visit [facility] Hematology Oncology [address] [place] [address] Jillian-Jennifer Gonzalez MD [address] [place] [address] Health Maintenance Due Date Last [...] year. Mammo Location: [facility], [address] [place] [address], [address], . -------- FINAL REPORT -------- Dictated By: Lilly Ayala Dictated Date: 07/22/2024 16:10 ET Assigned Physician: Lilly Ayala Reviewed and Electronically Signed By: Lilly Ayala Signed Date: 07/22/2024 16:14 ET Workstation ID: [id number] Transcribed By: Self Edit Transcribed Date: 07/22/2024 [...] year. Mammo Location: [facility], [address] [place] [address], [address], . -------- FINAL REPORT -------- Dictated By: Lilly Ayala Dictated Date: 07/22/2024 16:10 ET Assigned Physician: Lilly Ayala Reviewed and Electronically Signed By: Lilly Ayala Signed Date: 07/22/2024 16:14 ET Workstation ID: [id number] Transcribed By: Self Edit Transcribed Date: 07/22/2024 16:10 ET Jennifer Ca MD IMG BI PROCEDURES F inal Result * DXA BONE DENSITY STUDY 1+ LYLA MANN SKEL (10/07/2021 10:23 AM EDT) Anatomical Region Laterality Modality Bone Densitometr y 05/10/2021 11:5 1 AM EST Narrative 10/07/2021 4:32 PM EDT Clinical history: other osteoporosis Scans of the lumbar spine and hips were performed on a [employer]ARED fan beam bone densitometer. ? Bone mineral [...] spine and hips were performed on a [employer]AREDfan beam bone densitometer. Bone mineral density measurements [...] Group ID:[id number] Type:Not on file Address: [address] [place] [address] Care Teams Jig Boring Machine Set Up Operator Relationship Specialty Start Date End Date Truong Colon MD [address] [place] [address] [address] [place], [place] PCP - General 05/19/22
--- OUTSIDE RECORDS SUMMARY | 2024-08-13 18:30 | XMS_ITS | Encounter Summary ---
Author Organization [facility] Address [address] [place] [address] Phone Care Team Providers Care Passenger Conductor Name Role Phone Truong Colon MD Primary Care Provider +1- [phone] Encounter Details Date Type Department Care Team (Late Contact Info) Description 10/26/2023 Documentation Only [facility] [address] [place] [address] Kylie Gabriel [address] [place] [address] Social History Tobacco Use Types [...] Visit [facility] [address] [place] [address] Romero Jimenez MD [address] [place] [address] [place] [address] documented as of this encounter Visit Diagnoses Not on filedocumented in this encounter Care Teams Passenger Conductor Relationship Specialty Start Date End Date Truong Colon MD [address] [place] [address] PCP - General Internal Medicine 03/06/23 documented as of this encounter
--- OUTSIDE RECORDS SUMMARY | 2024-08-13 18:30 | XMS_ITS ---
Author Organization [facility] Address [address] [facility] [place] [address] Care Team Providers Care Invasive Manager Name Role Phone Isaiah DURAN, Truong Primary Care Provider Boby Laguerre Unavailable [phone] Allergies Allergen (clinical drug ingredient) Drug/Non Drug [...] Ordered Date Performed Result Body Sit e 91983-YNVPXOO NAIL, 6 OR MORE 07/31/2024 N/A 40036-QOLO SKIN LESIONS, OVER 4 07/31/2024 N/A Encounters Encounter Location Date Provider Diagnosis [facility] [address] [address] 07/31/2024 Boby Chapman Atherosclerosis of [place] artery of both lower extremities, with unspecified presence of clinical manifestation I70.203 ; Tinea unguium B35.1 ; Pain in right toe(s) M79.674 ; Pain in left toe(s) M79.675 ; Other hammer toe(s) (acquired), right foot M20.41 and Other hammer toe(s) (acquired), left foot M20.42 Assessments Encounter Date Diagnosis (ICD Code) Assessment Notes Treatment Notes Treatment Clinical Notes Section Notes 07/31/2024 Atherosclerosis of [place] artery of both lower extremities, with unspecified [...] Treatment Pending Test Test Name Order Date 81937-MJOXRVD NAIL, 6 OR MORE 07/31/2024 73675-WNHU SKIN LESIONS, OVER 4 08/01/19 25 Next Appt Details Follow Up: 2 Months, Reason: Provider Name:Boby Chapman , 10/30/2024 02:45:00 PM, [address], [place], [address], Procedure Notes * Category Sub-Category Detail Notes [...] use of a nail nipper and/or dremel-type swing frame grinder operator, to a more viable healthy [...] instrumentation by the physician of record - 34355, Q8 Progress Notes * Tommie BLANCASOB:[birth year] (78 yo F)Acc No.[id number]:07/31/2024 Progress Note Patient:?Jacinda BLANCAS Provider:?Boby Chapman DPM :1945???Age:78 Y???Sex:Female D ate:07/31/2024 Address:[address] [place], [place] [address] Pcp:Truong Colon MD Subjective: * Chief Complaints: [...] Assessment: 1.?Tinea unguium - B35.1???2 .?Atherosclerosis of [place] artery of both lower extremities, with unspecified presence of clinical manifestation - I70.203 (Primary)???Specify :Q8???3.?Pain in right toe(s) - M79.674???4.?Pain in left toe(s) - M79.675???5.?Other hammer toe(s) (acquired), right foot - M20.41???Specify :Chronic problem, Stable (1=3,2=4), Response to treatment - Improvement???6.?Other hammer toe(s) (acquired), left foot - M20.42???Specify :Chronic problem, Stable (1=3,2=4), Response to treatment - Improvement??? Plan: * Treatment: 2.?Tinea unguium?Procedure: 05124-SVKFGHO NAIL, 6 OR MORE * Procedures:?Debride Nail [...] use of a nail nipper and/or dremel-type swing frame grinder operator, to a more viable healthy [...] to maintain effectiveness in symptomatic relief - 73868.?Keratoma Treatment:?Parring or Cutting of Benign Hyperkeratotic Lesion(s)?(-57) [...] instrumentation by the physician of record - 20429, Q8.? * Procedure Codes:?26319 DEBRI DE NAIL, 6 OR MORE, Modifiers: XS 22152 TRIM SKIN LESIONS, OVER 4, Modifiers: XS [...] Chapman DPM Date:?2024 Generated for Yovanny toussaint/Leah/eTcalderon on:?08/13/2024 04:37 PM EDT History and Physical [...]
--- OUTSIDE RECORDS SUMMARY | 2024-08-13 18:30 | XMS_ITS | Encounter Summary ---
Author Organization [facility] Address [address] [place] [address] Phone Care Team Providers Care Warehouse Receiver Name Role Phone Truong Colon MD Primary Care Provider +1- [phone] Encounter Details Date Type Department Care Team (Late Contact Info) Description 07/02/2024 Documentation Only [facility] [address] [place] [address] [place] [address] [place] [address] Social History Tobacco Use Types Packs/Day [...] [facility] [address] [place] [address] Romero Jimenez MD [address] [place] [address] [place] [address] documented as of this encounter Visit Diagnoses Not on filedocumented in this encounter Care Teams Warehouse Receiver Relationship Specialty Start Date End Date Truong Colon MD [address] [place] [address] PCP - General Internal Medicine 03/06/23 documented as of this encounter
--- OUTSIDE RECORDS SUMMARY | 2024-08-13 18:30 | XMS_ITS | Encounter Summary ---
Author Organization [facility] Address [address] [place] [address] Phone Care Team Providers Care Doweling Machine Operator Name Role Phone Truong Colon MD Primary Care Provider +1- [phone] Encounter Details Date Type Department Care Team (Late Contact Info) Description 04/10/2024 Documentation Only [facility] [address] [place] [address] Kylie Gabriel [address] [place] [address] Social History Tobacco Use Types [...] [facility] [address] [place] [place] [address] Romero Jimenez MD [address] [place] [address] [place] [address] documented as of this encounter Visit Diagnoses Not on filedocumented in this encounter Care Teams Doweling Machine Operator Relationship Specialty Start Date End Date Truong Colon MD [address] [place] [address] PCP - General Internal Medicine 03/06/23 documented as of this encounter
--- OUTSIDE RECORDS SUMMARY | 2024-08-13 18:30 | XMS_ITS | Encounter Summary ---
Author Organization [facility] Address [address] [place] [address] Phone Care Team Providers Care Wedding Makeup Artist Name Role Phone Truong Colon MD Primary Care Provider +1- [phone] Encounter Details Date Type Department Care Team (Late Contact Info) Description 10/29/2023 Documentation Only [facility] [address] [place] [place] [address] Kylie Gabriel [address] [place] [address] Social History Tobacco Use Types [...] Visit [facility] [address] [place] [address] Romero Jimenez MD [address] [place] [address] [place] [address] documented as of this encounter Visit Diagnoses Not on filedocumented in this encounter Care Teams Wedding Makeup Artist Relationship Specialty Start Date End Date Truong Colon MD [address] [place] [address] PCP - General Internal Medicine 03/06/23 documented as of this encounter
--- OUTSIDE RECORDS SUMMARY | 2024-08-13 18:30 | XMS_ITS | Encounter Summary ---
Author Organization [facility] Address [address] [place] [address] Phone Care Team Providers Care Window Treatment Installer Name Role Phone Truong Colon MD Primary Care Provider +1- [phone] Encounter Details Date Type Department Care Team (Late Contact Info) Description 07/31/2024 Documentation Only [facility] [address] [place] [address] Kylie Gabriel [address] [place] [address] Social History Tobacco Use Types [...] [facility] [address] [place] [address] Romero Jimenez MD [address] [place] [address] [place] [address] documented as of this encounter Visit Diagnoses Not on filedocumented in this encounter Care Teams Window Treatment Installer Relationship Specialty Start Date End Date Truong Colon MD [address] [place] [address] PCP - General Internal Medicine 03/06/23 documented as of this encounter
--- OUTSIDE RECORDS SUMMARY | 2024-08-13 18:31 | XMS_ITS | Clinical Summary ---
Author Organization [facility], Address [address] [place] [address] [place] [address] Phone Care Team Providers Care Mail Rider Name Role Phone Truong Colon MD Primary Care Provider +1- [phone] Allergies Active Allergy Reactions Criticality Noted Date [...] SEMANA 24 capsule 14 05/13/19 25 Active gabapentin (NEURONTIN) 300 MG capsule Take 1 capsule (300 mg total) by mouth 1 (one) time each day 30 capsule 3 08/13/19 25 Active gabapentin (Neurontin) 100 MG capsule Take 1 capsule (100 mg total) by mouth 1 (one) time each day 30 capsule 07/17/19 25 025 Discontinued Active Problems Problem Noted Date [...] Encounters Date Type Department Care Team Description 08/12/2024 1:30 PM EDT Office Visit [facility], [address] [place] [address] Romero Jimenez MD Stage 3b chronic kidney disease (HCC) (Primary Dx) 08/12/2024 Documentation Only [facility] [address] [place] [address] Sabrina Membreno [place] 08/11/2024 Office Communication [facility] [address] [place] [address] Deisi [place], RN 08/08/2024 Orders Only [facility] [address] [place] [address] Kylie Gabriel Anemia in chronic kidney disease; Stage 3b chronic kidney disease (HCC); Iron deficiency anemia, not otherwise specified 08/06/2024 Documentation Only [facility] [address] [place] [address] Deisi [place], RN labs overdue 08/04/2024 Documentation Only [facility] [address] [place] [address] Kylie Gabriel 07/31/2024 Documentation Only [facility] [address] [place] [address] Kylie Gabriel 07/31/2024 Office Communication [facility] [address] [place] [address] Deisi [place], RN 07/16/2024 3:45 PM EDT Office Visit [facility] [address] [place] [address] Romero Jimenez MD Stage 3b chronic kidney disease (HCC) (Primary Dx) 07/11/2024 Orders Only [facility] [address] [place] [address] Kylie Gabriel Anemia in chronic kidney disease; Stage 3b chronic kidney disease (HCC); Iron deficiency anemia, not otherwise specified 07/02/2024 Documentation Only [facility] [address] [place] [address] Sabrina Membreno [place] 06/13/2024 Orders Only [facility] [address] [place] [address] Kylie Gabriel Anemia in chronic kidney disease; Stage 3b chronic kidney disease (HCC); Iron deficiency anemia, not otherwise specified 06/05/2024 Telephone [facility] [address] [place] [address] Deisi [place], RN reminder for labs 06/03/2024 Documentation Only [facility] [address] [place] [address] Kylie Gabriel 05/31/2024 Office Communication [facility] [address] [place] [address] Deisi [place], RN 05/31/2024 Telephone [facility] [address] [place] [address] Deisi [place], RN 05/27/2024 Documentation Only [facility] [address] [place] [address] Kylie Gabriel 05/16/2024 Orders Only [facility] [address] [place] [address] Kylie Gabriel Anemia in chronic kidney disease; [...] Visit [facility], [address] [place] [address] Romero Jimenez MD [address] [place] [address] Health Maintenance Due Date Last Done Comments [...] Most Recently Relevant to Health Maintenance Insurance [facility] One [employer] Dual SNP ([id number]) Care Teams Mail Rider Relationship Specialty Start Date End Date Truong Colon MD [address] [place] [address] PCP - General Internal Medicine 03/06/23
--- OUTSIDE RECORDS SUMMARY | 2024-08-13 18:31 | XMS_ITS ---
Author Organization [facility], Address [address] [place] [address] [place] [address] Phone Care Team Providers Care Sales Incentive Analyst Name Role Phone Truong Colon MD Primary Care Provider +1- [phone] Active Problems Problem Noted Date Diagnosed Date [...]
--- OUTSIDE RECORDS SUMMARY | 2024-08-13 18:31 | XMS_ITS | Encounter Summary ---
Author Organization [facility] Address [address] [place] [address] Phone Care Team Providers Care Field Underwriter Name Role Phone Truong Colon MD Primary Care Provider +1- [phone] Encounter Details Date Type Department Care Team (Late Contact Info) Description 04/29/2024 Documentation Only [facility] [address] [place] [address] Britt Sol [address] [place] [address] Social History Tobacco Use [...] Visit [facility] [address] [place] [address] Romero Jimenez MD [address] [place] [address] [place] [address] documented as of this encounter Visit Diagnoses Not on filedocumented in this encounter Care Teams Field Underwriter Relationship Specialty Start Date End Date Truong Colon MD [address] [place] [address] PCP - General Internal Medicine 03/06/23 documented as of this encounter
--- OUTSIDE RECORDS SUMMARY | 2024-08-13 18:31 | XMS_ITS | Encounter Summary ---
Author Organization [facility] Address [address] [place] [address] Phone Care Team Providers Care Tape Recording Machine Operator Name Role Phone Truong Colon MD Primary Care Provider +1- [phone] Encounter Details Date Type Department Care Team (Late Contact Info) Description 07/11/2024 Orders Only [facility] [address] [facility] [address] [address] Kylie Gabriel [address] [place] [address] Anemia in chronic kidney disease; [...] Visit [facility] [address] [facility] [address] [place] [address] Romero Jimenez MD [address] [facility] [address] [place] [address] documented as of this encounter Visit Diagnoses Diagnosis Anemia in chronic kidney disease Stage 3b chronic kidney disease (HCC) Iron deficiency anemia, not otherwise specified documented in this encounter Care Teams Tape Recording Machine Operator Relationship Specialty Start Date End Date Truong Colon MD [address] [place] [address] PCP - General Internal Medicine 03/06/23 documented as of this encounter
[2024-08-13 20:00] VITALS: BP 163/77; PULSE 57; RESP 18; TEMP 36.8; O2SAT 100
[2024-08-13 21:21] VITALS: BP 163/77; PULSE 57; RESP 18; TEMP 36.8; O2SAT 100
== END 2024-08-13 21:22 | disposition home or self-care (01) ==
PROVIDERS: Emergency Provider Emergency Medicine Emergency Medical Services; PCP Internal Medicine
DX: S32.10XA Unspecified fracture of sacrum, initial encounter for closed fracture (principal); S09.90XA Unspecified injury of head, initial encounter; W18.30XA Fall on same level, unspecified, initial encounter; Y93.89 Activity, other specified; Y92.9 Unspecified place or not applicable; Y99.9 Unspecified external cause status; M25.559 Pain in unspecified hip; I12.9 Hypertensive chronic kidney disease with stage 1 through stage 4 chronic kidney disease, or unspecified chronic kidney disease; N18.30 Chronic kidney disease, stage 3 unspecified; Z79.899 Other long term (current) drug therapy
CPT/HCPCS: 36415; 70450; 72125; 73030; 74176; 80048; 85025; 99284

== ENCOUNTER → 2024-08-13 17:03 | Outpatient (BNV) | payer OTHER, SELFPAY | PROVIDERS: Emergency Provider Emergency Medicine Emergency Medical Services; PCP Internal Medicine; Visit Provider Radiology Diagnostic Radiology | DX: M25.511 Pain in right shoulder (principal); M54.2 Cervicalgia; S09.90XA Unspecified injury of head, initial encounter; W19.XXXA Unspecified fall, initial encounter; M54.50 Low back pain, unspecified; M16.0 Bilateral primary osteoarthritis of hip | CPT/HCPCS: 70450; 72125; 73030; 74176 ==

== ENCOUNTER 2024-08-19 13:29 | Outpatient (AMB) | payer OTHER, SELFPAY ==
--- NOTE | 2024-08-19 13:38 | A.OFFVIS_ITS ---
Vital Signs 08/19/24 13:39 Height 5 ft 10 in Weight 226 lb 10.163 oz BMI 32.5 BP 150/68 H Blood Pressure Location Lt brachial Position Sitting Respiration 18 Pulse 61 Pulse Source Pulse Oximeter Pulse Oximetry (%) 95 Oxygen Delivery Method Room Air Intake Visit Reasons: follow up Intake Note: Patient presents for follow up on fibromyalgia today. Patient thinks she may have arthritis, she had x-ray and MRI done so the doctor can look it over for her . She has paperwork from [facility] in [place]. Twisting Frame Changer Name: [id number] Kee Allergies Penicillins [PENICILLINS] Allergy (Intermediate, Verified 08/13/24 16:08) rash senna Allergy (Intermediate, Verified 08/13/24 16:08) rash Medication List - Last Reconciled 08/19/24 by Sravanthi Berger MD amlodipine 5 mg PO DAILY 90 days bisacodyl 5 mg PO BEDTIME 90 days calcitriol 1 mcg PO WE@1645 cane As directed - use when walking carvedilol 12.5 mg PO BID 90 days [Commode As directed] [DISPOSABLE BED PADS Use as directed ONCE A DAY] [DISPOSABLE GLOVES - LARGE (1 box/month) Use as directed] docusate sodium 100 mg PO DAILY PRN [FEMININE PADS As directed] hydroxyzine HCl 25 mg PO BID PRN levothyroxine 125 mcg PO DAILY@0600 [MEDICATED INCONTINENCE WIPES As directed] multivitamin 1 tab PO DAILY omeprazole 40 mg PO DAILY@0630 pregabalin 50 mg PO BEDTIME 90 days [ROLLATOR As directed] [ROLLATOR As directed] HPI Comments Details: Patient is an 78-year-old female with hypertension, hypothyroidism, fibromyalgia and OA Interval History: Patient last seen 02/19/2024 with me. At that time she was complaining of w idespread pain particularly her right outer hip, right knee, left upper back and bilateral lower back. She received a right knee injection and was started on pregabalin for fibromyalgia Since that visit patient stated that the injection did not help with her pain Had a fall 1 week ago but scans have been normal Had MRI of the lumbar spine 07/2024 which showed progression of her degenerative spondylolisthesis. However, the pregabalin has been helpful. Does not make her sleepy Rheumatologic History: Patient presented to this institution back in 2019. Was seen by Dermatology in June 2018 for a rash that developed in a photodistribution pattern. Rash developed approx 6 months prior to her Derm visit. Had a skin biopsy done and was started on a Prednisone taper which improved her symptoms. 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 She was previously on Plaquenil but self-discontinued. And has not restarted. Carries a diagnosis of Sjogren's on a background of positive SSA and sicca symptoms. Her main symptoms however have been osteoarthritis related. And since she never had any objective evidence of inflammatory arthritis or evidence of extraglandular Sjogren's the diagnosis was put into question. When she last saw Dr. Gutierrez Duke 02/01/2023 she was started on gabapentin and given a pain management referral for her sciatica. Unsure of when the gabapentin was stopped but at her follow-up visit in 07/11/2023 she was no longer on gabapentin. Likely self discontinued. They were again was no evidence of inflammatory arthritis and she had no evidence of sicca symptoms at that time. As of now she does not fully current diagnosis of Sjogren's. She mainly follows with Rheumatology for fibromyalgia and osteoarthritis. Current Rheumatology Medication(s): Pregabalin 50mg nightly PFSH Medical History Ambulates with cane Difficulty swallowing Osteoarthritis of right knee BPV (benign positional vertigo) Gait instability Cervicogenic headache Cervicalgia Vertigo Chronic kidney disease, stage III (moderate) Obesity (BMI 30-39.9) Gastritis Benign essential hypertension GERD without esophagitis Acquired hypothyroidism Constipation Lumbar spondylosis Post laminectomy syndrome Connective tissue disease Interstitial lung disease Osteopenia PAC (premature atrial contraction) Sjogrens syndrome Hypothyroid Breast cancer Raynauds disease SAMARA positive Surgical History 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) Hx of colonoscopy Hx of tubal ligation H/O varicose vein stripping History of cataract surgery H/O lumpectomy Hx of cholecystectomy History of back surgery Family History Father Emphysema of lung Cancer Brother Emphysema of lung Mother Bone cancer Son PONV (postoperative nausea and vomiting) Other Arthritis Social History Household Members: Significant Other and Children Housing: Apartment Are you a primary resident care aid to a significant other at home: No Do you presently have visiting nurse or other home services: No Alcohol intake: never Comment: pt reports this is her baseline pain Patient Tobacco Use Status: Never used Tobacco e-Cigarette/Vaping Use: Never Used Second Hand Smoke Exposure: No service: No Current occupational status: retired Cognitive needs: No Hearing needs: No Vision needs: Yes (Glasses) Review of Systems Const Details: Review of Systems Constitutional: Denies fever, chills, weight loss ENT: Denies vision changes, eye pain or eye redness, dental caries, dry mouth GI: Denies nausea, vomiting, diarrhea, abdominal pain, change in BM Pulm: Denies SOB, SHARIF, hemoptysis, wheezing Cards: Denies chest pain, palpitations Skin: Denies Raynaud's, rash, nail changes, photosensitivity, CAR SHAGGER: Denies headaches, weakness, paresthesias, recurrent falls MSK: as per HPI All other systems reviewed and are unremarkable except noted above Physical Exam Vital Signs: Last Vital Signs Pulse 61 08/19/24 13:39 Resp 18 08/19/24 13:39 BP 150/68 H 08/19/24 13:39 Pulse Ox 95 08/19/24 13:39 Oxygen Delivery Method Room Air 08/19/24 13:39 BMI result Body Mass Index 32.5 Vital signs reviewed Physical Examination CONSTITUITIONAL Patient alert and cooperative. Well appearing and in no apparent painful distress HEENT Conjunctiva and sclera clear. ?Pupils equal round and reactive to light. ?No lymphadenopathy. ? CHEST/RESPIRATORY SYSTEM Normal respiratory effort and able to speak in complete sentences. ?Clear to auscultation bilaterally. ?No crackles, rales, rhonchi, wheezes heard. CARDIAC SYSTEM Regular rate and rhythm. ?S1 and S2 heard no murmurs. ?Radial pulses intact bilaterally MSK Hands: ?Able to make a fist. No synovitis noted to the MCPs, PIPs or DIPs. ?No tenderness to palpation of these joints. No deformities noted. ? Wrists: ?Full range of motion at the wrists without pain. ?No tenderness to palpation or synovitis noted to the wrists. Elbows: Full range of motion without pain. No tenderness, weakness, swelling, increased warmth or erythema. Shoulders: Full range of active range of motion without pain. No tenderness, weakness, swelling, increased warmth or erythema. Knees: ?Full range of motion. Pain with ROM of the left knee but?No tenderness, swelling, increased warmth or erythema.?No effusion or crepitations Ankles: Full range of motion. ?No tenderness, swelling, increased warmth or erythema.? Feet: ?Negative squeeze test. ?No tenderness to palpation or swelling of the MTPs. Tender points:?Tenderness to palpation of the bilateral trapezius, supraspinatus, greater trochanters, anterior costochondral junctions, bilateral gluteal areas, bilateral suboccipital muscle insertions SKIN Skin intact without rashes. Results Reviewed Results Reviewed: Laboratory Tests 08/13/24 17:14 WBC 11.2 H RBC 4.22 Hgb 11.8 L Hct 36.7 L Plt Count 197 Sodium 137 Potassium 5.4 H Chloride 103 Carbon Dioxide 27 BUN 23 H Creatinine 1.08 Immunology labs 10/22/20 01/29/23 16:02 11:51 Rheumatoid Factor < 13.0 Cycl Citrul Peptide IgG <16 SS-A/Ro Antibody >8.0 POS A SS-B/La Antibody <1.0 NEG Sm (Em) Antibody <1.0 NEG SM/WARPING MACHINE OPERATOR IgG Antibody <1.0 NEG Double Strand DNA Ab 3 Complement C3 61 L Complement C4 12 L Assessment & Plan Assessment & Plan (1) Fibromyalgia: Code(s): M79.7 - Fibromyalgia Category: Medical Plan: #Fibromyalgia Patient is an 78-year-old female with fibromyalgia here today for follow up. Had improvement on the pregabalin 50 mg without drowsiness or any other side effects. We will slightly increase it to 75 to see if we can get more benefit. Plan - Pregabalin 75mg nightly - RTC 6 months (2) Low back pain with right-sided sciatica: Code(s): M54.41 - Lumbago with sciatica, right side Category: Medical Qualifiers: Chronicity: chronic Back pain laterality: right Qualified Code(s): M54.41 - Lumbago with sciatica, right side; G89.29 - Other chronic pain Plan: #Low back pain Continue follow up with pain management Plan I spent 20 minutes reviewing the record and labs, seeing the patient, discussing the treatment plan and documenting in the medical record Medications: Changed From pregabalin 50 mg PO BEDTIME 90 days 90 caps 1RF M79.7 - Fibromyalgia To pregabalin 75 mg PO BEDTIME 90 days 90 caps 1RF M79.7 - Fibromyalgia Coding Level of Care Code Est Pt Level 3 (19491) Diagnoses Fibromyalgia M79.7 Chronic right-sided low back pain with right-sided sciatica M54.41; G89.29 Chronicity: chronic Back pain laterality: right
[2024-08-19 13:39] VITALS: BP 150/68; PULSE 61; RESP 18; O2SAT 95; BMI 32.5
--- OUTSIDE RECORDS SUMMARY | 2024-08-19 15:31 | XMS_ITS ---
Author Organization [facility] Address [address] [place] [address] Care Team Providers Care Household Appliance Repairer Name Role Phone Isaiah DURAN, [place] Primary Care Provider Boby Laguerre Unavailable [phone] Allergies Allergen (clinical drug ingredient) Drug/Non Drug [...] Ordered Date Performed Result Body Sit e 10542-IMRZHDN NAIL, 6 OR MORE 01/24/2024 N/A 67177-Jmyq Destruction, 1-14 01/24/2024 N/A 21757-BHHW SKIN LESIONS, OVER 4 01/24/2024 N/A Encounters Encounter Location Date Provider Diagnosis [facility] [place] [address] [place] [id number] 01/24/2024 Boby Chapman Atherosclerosis of cherokee artery [...] Clinical Notes Section Notes 01/24/2024 Atherosclerosis of cherokee artery of both [...] 01/24/2024 Pending Test Test Name Order Date 58111-MQEDAME NAIL, 6 OR MORE 01/24/2024 64373-Ejhj Destruction, 1-14 01/24/2024 34980-PNNT SKIN LESIONS, OVER 4 01/24/20 24 Next Appt Details Follow Up: 2 Months, Reason: Provider Name:Boby Chapman , 10/30/2024 02:45:00 PM, [address], [place], [address], Procedure Notes * Category Sub-Category Detail Notes Wart Treatment Procedure Verrucae were de brided to pin-point bleeding margins with sterile 15 surgical blade, silver nitrate chemocautery applied, recomm. immune-boosting meds such as zinc, recomm. follow up with topical chemosurgical agents, Pt defers any other forms of tx - 12130 Debride Nail 6-10 Nail debridement Performance o f this nail treatment by a nonprofessional would put this patients foot and overall health at risk. Therefore, nail debridement was performed extensively to reduce/remove overall nail length, girth, thickness, subungual debris, and necrotic tissue, by manual and/or electrical means through the use of a nail nipper and/or dremel-type roll grinder operator, to a more viable healthy nail plate or bed tissue 6-10. Silver nitrate used for any petechial bleeding as necessary. Definitive antifungal treatment options have been reviewed and discussed with the patient. The patient chooses, no pharmaceutical tx - 83828 Keratoma Treatment Parring or Cutting o f Benign Hyperkeratotic Lesion(s) (-57) More than 4 Lesions - The Benign hyperkeratotic lesions, as described above were pared, and/or cut utilizing a sterile 15 blade, tissue nippers, and/or dremel - 07596 , Q8 Progress Notes * Tommie BLANCASOB:[birth year] (78 yo F)Acc No.[id number]:01/24/2024 Progress Note Patient:?Jacinda BLANCAS Provider:?Boby Chapman DPM :1945???Age:78 Y???Sex:Female D ate:01/24/2024 [facility] [place] [id number] Pcp:Truong Colon MD Subjective: * Chief Complaints: [...] wart - B07.0 (Malka ngozi)???Specify :LEFT???2.?Atherosclerosis of cherokee artery of both lower extremities, with unspecified presence of clinical manifestation - I70.203???3.?Tinea unguium - B35.1???4.?Pain in right toe(s) - M79.674???5.?Pain in left toe(s) - M79.675???6.?Left foot pain - M79.672???7.?Xerosis of skin - L85.3???Specify :Acute problem, Stable (1=3),Response to treatment - Improvement??? Plan: * Treatment: 2.?Atherosclerosis of cherokee artery of both lower extremities, with unspecified presence of clinical manifestation?Procedure: 72975-SPJI SKIN LESIONS, OVER 4 3.?Tinea unguium?Procedure: 71440-YMFKTLU NAIL, 6 OR MORE 4.?Xerosis of skin? [...] use of a nail nipper and/or dremel-type roll grinder operator, to a more viable healthy nail plate or bed tissue 6-10. Silver nitrate used for any petechial bleeding as necessary. Definitive antifungal treatment options have been reviewed and discussed with the patient. The patient chooses, no pharmaceutical tx - 11836.?Keratoma Treatment:?Parring or Cutting of Benign Hyperkeratotic Lesion(s)?(-57) More than 4 Lesions - The Benign hyperkeratotic lesions, as described above were pared, and/or cut utilizing a sterile 15 blade, tissue nippers, and/or dremel - 49078 , Q8.?Wart Treatment:?Procedure?Verrucae were debrided to pin-point bleeding margins with sterile 15 surgical blade, silver nitrate chemocautery applied, recomm. immune-boosting meds such as zinc, recomm. follow up with topical chemosurgical agents, Pt defers any other forms of tx - 90617.? * Procedure Codes:?89518 DEBRI DE NAIL, 6 OR MORE, Modifiers: XS 66680 Wart Destruction, 1-14, Modifiers: XS 32510 TRIM SKIN LESIONS, OVER 4, Modifiers: XS [...] Chapman DPM Date:?2023 Generated for Yovanny toussaint/Leah/Lois on:?08/19/2024 03:31 PM EDT History and Physical Notes * [...]
--- OUTSIDE RECORDS SUMMARY | 2024-08-19 15:31 | XMS_ITS | Encounter Summary ---
Author Organization [facility] Address [address] [place] [address] Phone Care Team Providers Care Chiropractic Doctor Name Role Phone Truong Cloon MD Primary Care Provider +1- [phone] Encounter Details Date Type Department Care Team (Late Contact Info) Description 05/27/2024 Documentation Only [facility] [address] [place] [address] Kylie Gabriel [address] [place] [address] Social History Tobacco Use Types [...] [facility] [address] [place] [address] Romero Jimenez MD [address] [place] [address] [place] [address] documented as of this encounter Visit Diagnoses Not on filedocumented in this encounter Care Teams Chiropractic Doctor Relationship Specialty Start Date End Date Truong Colon MD [address] [place] [address] PCP - General Internal Medicine 03/06/23 documented as of this encounter
--- OUTSIDE RECORDS SUMMARY | 2024-08-19 15:31 | XMS_ITS | Encounter Summary ---
Author Organization [facility] Address [address] [place] [address] Phone Care Team Providers Care Cleaning Associate Name Role Phone Truong Colon MD Primary Care Provider +1- [phone] Encounter Details Date Type Department Care Team (Late Contact Info) Description 05/12/2021 Documentation Only [facility] [address] [place] [address] Eligio Meza MD [address] [place] [address] [place] [address] Social History Tobacco Use Types [...] Visit [facility] [address] [place] [address] Romero Jimenez MD [address] [place] [address] documented as of this encounter Visit Diagnoses Not on filedocumented in this encounter Care Teams Cleaning Associate Relationship Specialty Start Date End Date Truong Colon MD [address] [place] [address] PCP - General Internal Medicine 03/06/23 documented as of this encounter
--- OUTSIDE RECORDS SUMMARY | 2024-08-19 15:31 | XMS_ITS | Clinical Summary ---
Author Organization [facility] Address [address] [place] [address] Care Team Providers Care Broomcorn Press Feeder Name Role Phone Truong Colon MD Primary Care Provider +1- [phone] Allergies Active Allergy Reactions Criticality Noted Date [...] age to complete this topic Care Teams Broomcorn Press Feeder Relationship Specialty Start Date End Date Truong Colon MD [address] [facility] [place] [id number] PCP - General Internal Medicine 05/19/22
--- OUTSIDE RECORDS SUMMARY | 2024-08-19 15:31 | XMS_ITS | Encounter Summary ---
Author Organization [facility] Address [address] [place] [address] Phone Care Team Providers Care Keymodule Assembly Machine Tender Name Role Phone Truong Colon MD Primary Care Provider +1- [phone] Encounter Details Date Type Department Care Team (Late Contact Info) Description 08/12/2024 Documentation Only [facility] [address] [place] [address] [place] [address] [place] [address] Social History Tobacco Use Types Packs/Day [...] [facility] [address] [place] [address] Romero Jimenez MD [address] [place] [address] [place] [address] documented as of this encounter Visit Diagnoses Not on filedocumented in this encounter Care Teams Keymodule Assembly Machine Tender Relationship Specialty Start Date End Date Truong Colon MD [address] [place] [address] PCP - General Internal Medicine 03/06/23 documented as of this encounter
--- OUTSIDE RECORDS SUMMARY | 2024-08-19 15:31 | XMS_ITS | Encounter Summary ---
Author Organization [facility] Address [address] [place] [address] Phone Care Team Providers Care Home Health Assistant Name Role Phone Truong Colon MD Primary Care Provider +1- [phone] Encounter Details Date Type Department Care Team (Late Contact Info) Description 05/16/2024 Orders Only [facility] [address] [place] [address] Kylie Gabriel [address] [place] [address] Anemia in chronic kidney disease; [...] Visit [facility] [address] [place] [address] Romero Jimenez MD [address] [place] [address] documented as of this encounter Visit Diagnoses Diagnosis Anemia in chronic kidney disease Stage 3b chronic kidney disease (HCC) Iron deficiency anemia, not otherwise specified documented in this encounter Care Teams Home Health Assistant Relationship Specialty Start Date End Date Truong Colon MD [address] [place] [address] PCP - General Internal Medicine 03/06/23 documented as of this encounter
--- OUTSIDE RECORDS SUMMARY | 2024-08-19 15:31 | XMS_ITS ---
Author Organization [employer] [facility] Address [address] [id number] Care Team Providers Care Welt Drawer Name Role Phone Truong Colon MD Primary Care Provider +1- [phone] Active Problems Problem Noted Date Diagnosed Date [...]
--- OUTSIDE RECORDS SUMMARY | 2024-08-19 15:32 | XMS_ITS | Encounter Summary ---
Author Organization [facility] Address [address] [place] [address] Phone Care Team Providers Care Special Needs Teacher Name Role Phone Truong Colon MD Primary Care Provider +1- [phone] Encounter Details Date Type Department Care Team (Late Contact Info) Description 12/21/2021 Documentation Only [facility] [address] [place] [address] Dimitris Suarez PA Social History [...] Upcoming Encounters Date Type Department Care Team ([facility] Contact Info) Description 12/02/2024 1:40 PM EDT Office Visit [facility] [address] [place] [address] Romero Jimenez MD [address] [place] [address] [place] [address] documented as of this encounter Visit Diagnoses Not on filedocumented in this encounter Care Teams Special Needs Teacher Relationship Specialty Start Date End Date Truong Colon MD [address] [place], [place] [id number] PCP - General Internal Medicine 03/06/23 documented as of this encounter
--- OUTSIDE RECORDS SUMMARY | 2024-08-19 15:32 | XMS_ITS | Encounter Summary ---
Author Organization [facility] Address [address] [place] [address] Phone Care Team Providers Care Screen Printing Paster Name Role Phone Truong Colon MD Primary Care Provider +1- [phone] Encounter Details Date Type Department Care Team (Late Contact Info) Description 10/26/2023 Documentation Only [facility] [address] [place] [address] Kylie Gabriel [address] [place] [address] Social History Tobacco Use Types [...] [facility] [address] [place] [address] Romero Jimenez MD [address] [place] [address] [place] [address] documented as of this encounter Visit Diagnoses Not on filedocumented in this encounter Care Teams Screen Printing Paster Relationship Specialty Start Date End Date Truong Colon MD [address] [place] [address] PCP - General Internal Medicine 03/06/23 documented as of this encounter
--- OUTSIDE RECORDS SUMMARY | 2024-08-19 15:32 | XMS_ITS | Encounter Summary ---
Author Organization [facility] Address [address] [place] [address] Phone Care Team Providers Care Scale Operator Name Role Phone Truong Colon MD Primary Care Provider +1- [phone] Encounter Details Date Type Department Care Team (Late Contact Info) Description 01/31/2024 Documentation Only [facility] [address] [place] [address] Kylie Gabriel [address] [place] [address] Social History Tobacco Use Types [...] [facility] [address] [place] [address] Romero Jimenez MD [address] [place] [address] [place] [address] documented as of this encounter Visit Diagnoses Not on filedocumented in this encounter Care Teams Scale Operator Relationship Specialty Start Date End Date Truong Colon MD [address] [place] [address] PCP - General Internal Medicine 03/06/23 documented as of this encounter
--- OUTSIDE RECORDS SUMMARY | 2024-08-19 15:32 | XMS_ITS | Encounter Summary ---
Author Organization [facility] Address [address] [place] [address] Phone Care Team Providers Care Duck Farmer Name Role Phone Truong Colon MD Primary Care Provider +1- [phone] Encounter Details Date Type Department Care Team (Late Contact Info) Description 04/11/2022 Documentation Only [facility] [address] [place] [address] Kylie Gabriel [address] [place] [address] Social History Tobacco Use Types [...] [facility] [address] [place] [address] Romero Jimenez MD [address] [place] [address] [place] [address] documented as of this encounter Visit Diagnoses Not on filedocumented in this encounter Care Teams Duck Farmer Relationship Specialty Start Date End Date Truong Colon MD [address] [place] [address] PCP - General Internal Medicine 03/06/23 documented as of this encounter
--- OUTSIDE RECORDS SUMMARY | 2024-08-19 15:32 | XMS_ITS | Encounter Summary ---
Author Organization [facility] Address [address] [place] [address] Phone Care Team Providers Care Online Producer Name Role Phone Truong Colon MD Primary Care Provider +1- [phone] Encounter Details Date Type Department Care Team (Late Contact Info) Description 10/26/2023 Documentation Only [facility] [address] [place] [address] Kylie Gabriel [address] [place], [place] [...] [facility] [address] [place] [address] Romero Jimenez MD [address] [place] [address] [place] [address] documented as of this encounter Visit Diagnoses Not on filedocumented in this encounter Care Teams Online Producer Relationship Specialty Start Date End Date Truong Colon MD [address] [place] [address] PCP - General Internal Medicine 03/06/23 documented as of this encounter
--- OUTSIDE RECORDS SUMMARY | 2024-08-19 15:32 | XMS_ITS | Encounter Summary ---
Author Organization [facility] Address [address] [place] [address] Phone Care Team Providers Care Instructor Modeling Name Role Phone Truong Colon MD Primary Care Provider +1- [phone] Encounter Details Date Type Department Care Team (Late Contact Info) Description 01/23/2024 Documentation Only [facility], - [address] [place] [address] Jasmin Dumont [address] [place] [address] Social History Tobacco Use Types Packs/Day [...] Visit [facility], [address] [place] [address] Romero Jimenez MD [address] [facility] [place] [address] documented as of this encounter Visit Diagnoses Not on filedocumented in this encounter Care Teams Instructor Modeling Relationship Specialty Start Date End Date Truong Colon MD [address] [place] [address] PCP - General Internal Medicine 03/06/23 documented as of this encounter
--- OUTSIDE RECORDS SUMMARY | 2024-08-19 15:32 | XMS_ITS | Encounter Summary ---
Author Organization [facility] Address [address] [place] [address] Phone Care Team Providers Care Child'S Nurse Name Role Phone Truong Colon MD Primary Care Provider +1- [phone] Encounter Details Date Type Department Care Team (Late Contact Info) Description 04/10/2024 Documentation Only [facility] [address] [place] [address] Kylie Gabriel [address] [place] [address] Social History Tobacco Use Types [...] [facility] [address] [place] [address] Romero Jimenez MD [address] [place] [address] [place] [address] documented as of this encounter Visit Diagnoses Not on filedocumented in this encounter Care Teams Child'S Nurse Relationship Specialty Start Date End Date Truong Colon MD [address] [place] [address] PCP - General Internal Medicine 03/06/23 documented as of this encounter
--- OUTSIDE RECORDS SUMMARY | 2024-08-19 15:32 | XMS_ITS ---
Author Organization [facility] Address [address] [place] [address] Care Team Providers Care Data Migration Lead Name Role Phone Isaiah DURAN, Truong Primary Care Provider Boby Laguerre Unavailable [phone] Allergies Allergen (clinical drug ingredient) Drug/Non Drug [...] Ordered Date Performed Result Body Sit e 08571-YOQZONR NAIL, 6 OR MORE 07/31/2024 N/A 88718-QEPI SKIN LESIONS, OVER 4 07/31/2024 N/A Encounters Encounter Location Date Provider Diagnosis [facility] [address] [address] 07/31/2024 Bboy Chapman Atherosclerosis of [place] artery [...] Clinical Notes Section Notes 07/31/2024 Atherosclerosis of [place] artery [...] Treatment Pending Test Test Name Order Date 96443-TFDVJDY NAIL, 6 OR MORE 07/31/2024 71239-LANF SKIN LESIONS, OVER 4 08/01/19 25 Next Appt Details Follow Up: 2 Months, Reason: Provider Name:Boby Chapman , 10/30/2024 02:45:00 PM, [address], [place], [address], Procedure Notes * Category Sub-Category Detail Notes [...] of a nail nipper and/or dremel-type precision lens grinder apprentice, to a more viable healthy nail plate [...] instrumentation by the physician of record - 53356, Q8 Progress Notes * Tommie BLANCASOB:[birth year] (78 yo F)Acc No.[id number]:07/31/2024 Progress Note Patient:?Jacinda BLANCAS Provider:?Boby Chapman DPM :1945???Age:78 Y???Sex:Female D ate:07/31/2024 Address:[address] [place], [place] [address] Pcp:Truong Colon MD Subjective: * Chief Complaints: [...] Assessment: 1.?Tinea unguium - B35.1???2 .?Atherosclerosis of [place] artery of both [...] - Improvement??? Plan: * Treatment: 2.?Tinea unguium?Procedure: 67286-JUVDVBL NAIL, 6 OR MORE * Procedures:?Debride Nail [...] of a nail nipper and/or dremel-type precision lens grinder apprentice, to a more viable healthy nail plate [...] to maintain effectiveness in symptomatic relief - 26794.?Keratoma Treatment:?Parring or Cutting of Benign Hyperkeratotic Lesion(s)?(-57) [...] instrumentation by the physician of record - 81410, Q8.? * Procedure Codes:?66089 DEBRI DE NAIL, 6 OR MORE, Modifiers: XS 44150 TRIM SKIN LESIONS, OVER 4, Modifiers: XS [...] Chapman DPM Date:?2024 Generated for Yovanny toussaint/Leah/eTcalderon on:?08/19/2024 03:32 PM EDT History and Physical Notes * [...]
--- OUTSIDE RECORDS SUMMARY | 2024-08-19 15:32 | XMS_ITS | Patient Health Record ---
Author Organization [facility] [place] Address [address] [place] [address] Care Team Providers Care Emergency Room Orderly Name Role Phone Isaiah DURAN, [place] Primary Care Provider Boby Laguerre Unavailable [phone] Allergies Allergen (clinical drug ingredient) Drug/Non Drug [...] Problem Acquired hammer toe of right foot ([id number] ) Other hammer toe(s) (acquired), right foot (M20.41) Active confirmed Response to treatment, Improvemen t Problem Acquired hammer toe of left foot ([id number] ) Other hammer toe(s) (acquired), left foot (M20.42) Active confirmed Response to treatment, Improvemen t Problem Atherosclerosis of twenty[place]nine [place] arteries of the extremities ([id number]) Atherosclerosis of [place]nine [place] artery of both lower extremities, with unspecified presence of clinical manifestation (I70.203) Active confirmed Vital Signs Blood pressure diastolic 64 mm Hg 07/31/2024 Height 5 ft 9in in 07/31/2024 Blood pressure systolic 127 mm Hg 07/31/2024 Weight 233 lbs 07/31/2024 BMI 34.4 kg/m2 07/31/2024 Procedures Procedure Date Ordered Date Performed Result Body Sit e 59892-GMJILQH NAIL, 6 OR MORE 08/30/2023 N/A 20810-Xthc Destruction, 1-14 08/30/2023 N/A 39350-Mwaniyev Plate 08/30/2023 N/A 67473-Soonzqbt Plate Each Additional 08/30/2023 N/A 40726-ZSPR SKIN LESIONS, OVER 4 08/30/2023 N/A 19237-YTOVFUK NAIL, 6 OR MORE 11/08/2023 N/A 93355-Mxbh Destruction, 1-14 11/08/2023 N/A 65136-Wdqvafqz Plate 11/08/2023 N/A 27637-Mqnqinbu Plate Each Additional 11/08/2023 N/A 72394-XYPE SKIN LESIONS, OVER 4 11/08/2023 N/A 61853-LIHRUXX NAIL, 6 OR MORE 01/24/2024 N/A 19411-Zfda Destruction, 1-14 01/24/2024 N/A 70471-MGXZ SKIN LESIONS, OVER 4 01/24/2024 N/A 92990-GHAHDQD NAIL, 6 OR MORE 05/05/2024 N/A 71733-XFRX SKIN LESIONS, OVER 4 05/05/2024 N/A 97626-WRIJPDK NAIL, 6 OR MORE 07/31/2024 N/A 81687-TEOY SKIN LESIONS, OVER 4 07/31/2024 N/A Encounters Encounter Location Date Provider Diagnosis [address] [address] 08/30/2023 Boby Chapman Atherosclerosis of [place] artery of both lower extremities, with unspecified presence of clinical manifestation I70.203 ; Plantar wart B07.0 ; Tinea unguium B35.1 ; Pain in right toe(s) M79.674 ; Pain in left toe(s) M79.675 ; Ingrown nail L60.0 and Left foot pain M79.[address] [address] 11/08/2023 Boby Chapman Atherosclerosis of [place] artery of both lower extremities, with unspecified presence of clinical manifestation I70.203 ; Plantar wart B07.0 ; Tinea unguium B35.1 ; Pain in right toe(s) M79.674 ; Pain in left toe(s) M79.675 ; Ingrown nail L60.0 ; Left foot pain M79.672 and Xerosis of skin L85.[address] [address] 01/24/2024 Boby Chapman Atherosclerosis of [place] artery of both lower extremities, with unspecified presence of clinical manifestation I70.203 ; Plantar wart B07.0 ; Tinea unguium B35.1 ; Pain in right toe(s) M79.674 ; Pain in left toe(s) M79.675 ; Left foot pain M79.672 and Xerosis of skin L85.[address] [address] 05/05/2024 Boby Chapman Atherosclerosis of [place] artery of both lower extremities, with unspecified presence of clinical manifestation I70.203 ; Tinea unguium B35.1 ; Pain in right toe(s) M79.674 ; Pain in left toe(s) M79.675 ; Other hammer toe(s) (acquired), right foot M20.41 and Other hammer toe(s) (acquired), left foot M20.[address] [address] 07/31/2024 Boby Chapman Atherosclerosis of [place] artery of both lower extremities, with unspecified [...] wart (ICD-10 - B07.0) 08/30/2023 Atherosclerosis of [place] artery of both lower extremities, with unspecified presence of clinical manifestation (ICD-10 - I70.203) 11/08/2023 Plantar wart (ICD-10 - B07.0) 11/08/2023 Atherosclerosis of [place]nine [place] artery of both lower extremities, with unspecified presence of clinical manifestation (ICD-10 - I70.203) 01/24/2024 Plantar wart (ICD-10 - B07.0) 01/24/2024 Atherosclerosis of [place] artery of both lower extremities, with unspecified presence of clinical manifestation (ICD-10 - I70.203) 05/05/2024 Tinea unguium (ICD-10 - B35.1) 05/05/2024 Atherosclerosis of [place]nine [place] artery of both lower extremities, with unspecified presence of clinical manifestation (ICD-10 - I70.203) 07/31/2024 Tinea unguium (ICD-10 - B35.1) 07/31/2024 Atherosclerosis of [place] artery of both lower extremities, with unspecified [...] Treatment Pending Test Test Name Order Date 73381-OOWQIQT NAIL, 6 OR MORE 03/21/2017 16987-BYPWAGM NAIL, 6 OR MORE 05/30/2017 46193-DPNYIZT NAIL, 6 OR MORE 08/06/2017 91633-QZJYYVG NAIL, 6 OR MORE 10/25/2017 94401-XBWCWAF NAIL, 6 OR MORE 03/20/2018 89930-WMPFDLP NAIL, 6 OR MORE 06/13/2018 27742-OQBBWBD NAIL, 6 OR MORE 01/07/2018 21476-TLPSKBD NAIL, 6 OR MORE 08/14/2018 88714-MRBZSUP NAIL, 6 OR MORE 10/17/2018 24092-MJDHUAY NAIL, 6 OR MORE 01/16/2019 79164-VTZEDPA NAIL, 6 OR MORE 04/03/2019 02475-ZNTPOQZ NAIL, 6 OR MORE 06/16/2019 06622-YGGIBMO NAIL, 6 OR MORE 08/27/2019 87017-DVYPIRG NAIL, 6 OR MORE 12/18/2019 46095-JQSRGRE NAIL, 6 OR MORE 05/06/2020 96122-UJRERWT NAIL, 6 OR MORE 07/15/2020 75898-FEUAOPR NAIL, 6 OR MORE 09/29/2020 95265-BLGZLWB NAIL, 6 OR MORE 12/02/2020 47416-WYHKKSF NAIL, 6 OR MORE 02/17/2021 81041-OIZAEWX NAIL, 6 OR MORE 06/16/2021 06839-HYXIOBI NAIL, 6 OR MORE 08/29/2021 85590-ULXGESX NAIL, 6 OR MORE 11/10/2021 81023-BJJAKOK NAIL, 6 OR MORE 01/19/2022 77095-VRZDDPX NAIL, 6 OR MORE 04/05/2022 84335-WMFQZMK NAIL, 6 OR MORE 06/15/2022 65654-OYJWSPT NAIL, 6 OR MORE 08/24/2022 51195-OMMVAEE NAIL, 6 OR MORE 11/16/2022 51129-EJEBZEE NAIL, 6 OR MORE 01/25/2023 13373-YFFGFWK NAIL, 6 OR MORE 04/11/2023 38179-XPWWXZK NAIL, 6 OR MORE 06/27/2023 53634-MHCQQWL NAIL, 6 OR MORE 08/30/2023 33131-HUPSWAO NAIL, 6 OR MORE 11/08/2023 56615-CWKXCAJ NAIL, 6 OR MORE 01/24/2024 52031-HYGFKYO NAIL, 6 OR MORE 05/05/2024 00577-VZLDXNW NAIL, 6 OR MORE 07/31/2024 83855-ANJQFWU NAIL, 1-5 11/01/2016 76969-WAEBSJD NAIL, 1-5 01/03/2017 44972-ASXRDBJ NAIL, 1-5 11/15/2015 22635-LLUMERQ NAIL, 1-5 01/24/2016 66148-XKMFLNM NAIL, 1-5 04/05/2016 27077-QVOAZSF NAIL, 1-5 06/14/2016 24309-RLPNLWG NAIL, -5 08/23/2016 71728-Yssq Destruction, -14 11/01/2016 72021-Rdvi Destruction, -14 01/03/2017 20566-Dapv Destruction, -14 03/21/2017 14127-Whcf Destruction, -14 05/30/2017 14783-Hiep Destruction, -14 08/06/2017 90422-Asvs Destruction, -14 05/06/2020 73622-Gxms Destruction, -14 12/18/2019 84147-Pwot Destruction, 05-0608/27/2019 39150-Jukh Destruction, 05-0606/16/2019 99388-Fatb Destruction, -14 04/03/2019 43209-Pxiw Destruction, -14 01/16/2019 11380-Mxvh Destruction, -14 10/17/2018 85098-Hezc Destruction, 05-0608/14/2018 22764-Cgsb Destruction, 05-0606/13/2018 71253-Oylk Destruction, 05-0610/25/2017 00164-Ynsi Destruction, 05-0601/07/2018 94807-Xbrn Destruction, 05-0608/30/2023 20713-Tdzt Destruction, 05-0606/27/2023 08476-Guwm Destruction, 05-0604/11/2023 72628-Knkt Destruction, 05-0601/25/2023 21157-Xllb Destruction, 05-0611/16/2022 70086-Razw Destruction, 05-0608/24/2022 98708-Lssg Destruction, 05-0606/15/2022 18745-Prmt Destruction, 05-0604/05/2022 67409-Pmuo Destruction, 05-0601/19/2022 95313-Gvxc Destruction, 05-0606/16/2021 94517-Lfyp Destruction, 05-0603/20/2018 18583-Hkqn Destruction, 05-0611/10/2021 06822-Amxl Destruction, 05-0608/29/2021 36070-Ehcx Destruction, 05-0602/17/2021 87645-Ryzr Destruction, 05-0612/02/2020 20315-Owze Destruction, 05-0609/29/2020 59840-Xssj Destruction, 05-0607/15/2020 52560-Nxyb Destruction, 05-0601/24/2024 63541-Nind Destruction, 05-0611/08/2023 98519-Rmctymut Plate 11/08/2023 49291-Wczpcxlz Plate 09/29/2020 59413-Uqstchjk Plate 12/02/2020 15690-Hmlhnrqw Plate 02/17/2021 61515-Isqhpcao Plate 06/16/2021 18625-Hdoxrmro Plate 08/29/2021 93978-Wzqgxzee Plate 11/10/2021 89981-Pizhatiw Plate 01/19/2022 65072-Ucqjmzij Plate 04/05/2022 75037-Snitfnqt Plate 06/15/2022 53898-Bmvjjhbb Plate 08/24/2022 26597-Otagoffw Plate 11/16/2022 77414-Njqsrtds Plate 01/25/2023 63910-Vhqbblpp Plate 04/11/2023 32393-Reizqhzo Plate 06/27/2023 40630-Ddpskdxu Plate 08/30/2023 46860-Vmlezisj Plate 12/18/2019 16907-Wgkgothd Plate 05/06/2020 26698-Pjjyjaba Plate 07/15/2020 43620-Gbxlmqxb Plate 11/01/2016 85172-Jervbcqg Plate Each Additional 12/2023 24580-Seylykry Plate Each Additional 09/2023 35373-Iihepywo Plate Each Additional 51212-Bgevonav Plate Each Additional 08/2022 12701-Lolwvyvv Plate Each Additional 65570-Ogcsgxgy Plate Each Additional 07/2022 81344-Radptgtc Plate Each Additional 91393-Dqvhjols Plate Each Additional 96668-Mfzkfntk Plate Each Additional 68181-Swaboczg Plate Each Additional 93855-ONEO SKIN LESIONS, OVER 4 11/08/19 24 43476-SQNB SKIN LESIONS, OVER 4 01/24/20 24 29868-KRVX SKIN LESIONS, OVER 4 05/05/19 79386-LXHQ SKIN LESIONS, OVER 4 08/01/19 23181-EHLG SKIN LESIONS, OVER 4 06/16/19 36870-GJBA SKIN LESIONS, OVER 4 01/20/20 55881-HTUK SKIN LESIONS, OVER 4 11/11/19 12281-THJJ SKIN LESIONS, OVER 4 08/30/19 93310-BCOV SKIN LESIONS, OVER 4 02/18/20 21 43867-OLHN SKIN LESIONS, OVER 4 12/03/19 28021-HUMV SKIN LESIONS, OVER 4 09/30/19 21 71098-RJEA SKIN LESIONS, OVER 4 07/16/19 82288-YIDD SKIN LESIONS, OVER 4 04/05/20 68547-WBQS SKIN LESIONS, OVER 4 06/15/19 23 47086-QXMW SKIN LESIONS, OVER 4 08/25/19 98227-BAOJ SKIN LESIONS, OVER 4 11/17/19 23 03232-SABK SKIN LESIONS, OVER 4 01/26/20 17352-AMCP SKIN LESIONS, OVER 4 12/20/20 23 89159-YZYF SKIN LESIONS, OVER 4 06/27/19 24 97489-VTHS SKIN LESIONS, OVER 4 08/30/19 24 26341-CONW SKIN LESIONS, OVER 4 03/21/20 17 72985-UHWV SKIN LESIONS, OVER 4 01/04/20 17 68465-VXYF SKIN LESIONS, OVER 4 10/26/19 18 37685-OTRN SKIN LESIONS, OVER 4 08/07/19 18 84308-LIYA SKIN LESIONS, OVER 4 05/30/19 18 99293-HACM SKIN LESIONS, OVER 4 11/02/19 17 40859-DELL SKIN LESIONS, OVER 4 06/14/19 17 06977-FJFZ SKIN LESIONS, OVER 4 04/05/20 16 78917-ULAU SKIN LESIONS, OVER 4 08/24/19 17 30433-ESIH SKIN LESIONS, OVER 4 01/24/20 16 68406-FBCF SKIN LESIONS, OVER 4 11/15/19 16 31043-DVGL SKIN LESIONS, OVER 4 08/16/19 16 00271-GKJN SKIN LESIONS, OVER 4 05/06/19 21 30883-TCIT SKIN LESIONS, OVER 4 12/18/19 20 81288-NRUV SKIN LESIONS, OVER 4 08/27/19 20 93643-FWPW SKIN LESIONS, OVER 4 04/03/20 19 65459-IWYC SKIN LESIONS, OVER 4 06/16/19 20 43466-OQGW SKIN LESIONS, OVER 4 01/08/20 18 35957-VBBD SKIN LESIONS, OVER 4 06/13/19 19 94899-TWEF SKIN LESIONS, OVER 4 08/15/19 19 57684-FWXO SKIN LESIONS, OVER 4 03/20/20 18 13872-UTVQ SKIN LESIONS, OVER 4 10/18/19 19 34135-FMPP SKIN LESIONS, OVER 4 01/17/20 19 P5422-YGUKEHVJ DYSTROPHIC NAILS ANY # G2503-BDTMQWBN DYSTROPHIC NAILS ANY # Q5836-QAWSTZMO DYSTROPHIC NAILS ANY # A3559-TQIZQHNY DYSTROPHIC NAILS ANY # K7183-STKBXKZV DYSTROPHIC NAILS ANY # T4828-LBSYMBPI DYSTROPHIC NAILS ANY # F2828-TWCXNPAW DYSTROPHIC NAILS ANY # K6554-XHPYTEEQ DYSTROPHIC NAILS ANY # Next Appt Details Provider Name:Boby Chapman , 10/30/2024 02:45:00 PM, [address], [address], [place], [address], Insurance Providers Payer Name Payer Address Payer Phone Subscriber Number Group Number Insured Name Patient Relationship to Insured Coverage Start Date Coverage End Date [facility] [employer] Claims [address] [place] [address] [phone] [id number] Jacinda Benavidez Self - patient is the insured Medical (General) History Medical History History ICD Code Anemia Anxiety Arthritis Back,Hip,and Knee pain Cataracts High blood pressure Liver disease Reflux Thyroid disorder Surgical History Surgery Date(Month/Year) gall bladder 12/11/2014 Unspecified Right Hand SX 03/13/17
--- OUTSIDE RECORDS SUMMARY | 2024-08-19 15:32 | XMS_ITS | Encounter Summary ---
Author Organization [facility] Address [address] [place] [address] Phone Care Team Providers Care Conservator Artifacts Name Role Phone Truong Colon MD Primary Care Provider +1- [phone] Encounter Details Date Type Department Care Team (Late Contact Info) Description 01/14/2024 Documentation Only [facility] [address] [place] [address] [place] [address] [place] [address] Social History Tobacco Use Types Packs/Day [...] [facility] [address] [place] [address] Romero Jimenez MD [address] [place] [address] documented as of this encounter Visit Diagnoses Not on filedocumented in this encounter Care Teams Conservator Artifacts Relationship Specialty Start Date End Date Truong Colon MD [address] [place] [address] PCP - General Internal Medicine 03/06/23 documented as of this encounter
--- OUTSIDE RECORDS SUMMARY | 2024-08-19 15:32 | XMS_ITS | Encounter Summary ---
Author Organization [facility] Address [address] [place] [address] Phone Care Team Providers Care Fur Scraper Name Role Phone Truong Colon MD Primary Care Provider +1- [phone] Encounter Details Date Type Department Care Team (Late Contact Info) Description 04/14/2022 Documentation Only [facility] [address] [place] [address] Eligio Meza MD [address] [place] [address] [place] [address] Social History Tobacco Use Types [...] Visit [facility] [address] [place] [address] Romero Jimenez MD [address] [place] [address] documented as of this encounter Visit Diagnoses Not on filedocumented in this encounter Care Teams Fur Scraper Relationship Specialty Start Date End Date Truong Colon MD [address] [place] [address] PCP - General Internal Medicine 03/06/23 documented as of this encounter
--- OUTSIDE RECORDS SUMMARY | 2024-08-19 15:32 | XMS_ITS ---
Author Organization [facility] Address [address] [facility] [place] [address] Care Team Providers Care Microwave Engineer Name Role Phone Isaiah DURAN, Truong Primary Care Provider Boby Laguerre Unavailable [phone] Allergies Allergen (clinical drug ingredient) Drug/Non Drug [...] Ordered Date Performed Result Body Sit e 26962-HODEJXS NAIL, 6 OR MORE 05/05/2024 N/A 05307-GCXQ SKIN LESIONS, OVER 4 05/05/2024 N/A Encounters Encounter Location Date Provider Diagnosis [facility] [address] [address] 05/05/2024 Boby Chapman Atherosclerosis of lummi artery of both lower extremities, with unspecified presence of clinical manifestation I70.203 ; Tinea unguium B35.1 ; Pain in right toe(s) M79.674 ; Pain in left toe(s) M79.675 ; Other hammer toe(s) (acquired), right foot M20.41 and Other hammer toe(s) (acquired), left foot M20.42 Assessments Encounter Date Diagnosis (ICD Code) Assessment Notes Treatment Notes Treatment Clinical Notes Section Notes 05/05/2024 Atherosclerosis of lummi artery of both lower extremities, with unspecified [...] days Pending Test Test Name Order Date [id number] NAIL, 6 OR MORE 05/05/2024 [id number] SKIN LESIONS, OVER 4 05/05/19 25 Next Appt Details Follow Up: 2 Months, Reason: Provider Name:Boby Chapman , 10/30/2024 02:45:00 PM, [address], [place], [address], Procedure Notes * Category Sub-Category Detail Notes [...] use of a nail nipper and/or dremel-type instrument lens grinder, to a more viable healthy nail [...] to maintain effectiveness in symptomatic relief - 83691 Keratoma Treatment Parring or Cutting o f [...] instrumentation by the physician of record - 90105, Q8 Progress Notes * Tommie BLANCASOB:[birth year] (78 yo F)Acc No.[id number]:05/05/2024 Progress Note Patient:?Jacinda BLANCAS Provider:?Boby Chapman DPM :1945???Age:78 Y???Sex:Female D ate:05/05/2024 Address:[address] [place], [place] [address] Pcp:Truong Colon MD Subjective: * Chief Complaints: [...] by , , who serves as , Garment Presser/Activity Manager , additional Historian , and/who is physically present in exam room at time of visit.?ORIENTED:?person, place, and time.?FOOT EXAM:?Lower Extremity Neurological Exam performed:?Yes ?Visual exam of foot performed:?Yes ?Date?05/05/2024 ?Footwear Evaluation?Footwear Evaluation performed:?Yes??? Assessment: * Assessment: 1.?Tinea unguium - B35.1???2 .?Atherosclerosis of lummi artery of both lower extremities, with unspecified presence of clinical manifestation - I70.203 (Primary)???3.?Pain in right toe(s) - M79.674???4.?Pain in left toe(s) - M79.675 ??5.?Other hammer toe(s) (acquired), right foot - M20.41???Specify :Chronic problem, Worse (4),Rx Management (4)???6.?Other hammer toe(s) (acquired), left foot - M20.42???Specify :Chronic problem, Worse (4),Rx Management (4)??? Plan: * Treatment: 2.?Tinea unguium?Procedure: 30205-HNGNYFV NAIL, 6 OR MORE 3.?Other hammer toe(s) [...] use of a nail nipper and/or dremel-type instrument lens grinder, to a more viable healthy nail [...] to maintain effectiveness in symptomatic relief - 47839.?Keratoma Treatment:?Parring or Cutting of Benign Hyperkeratotic Lesion(s)?(-57) [...] instrumentation by the physician of record - 36366, Q8.? * Procedure Codes:?93924 DEBRI DE NAIL, 6 OR MORE, Modifiers: XS 93063 TRIM SKIN LESIONS, OVER 4, Modifiers: XS [...] Chapman DPM Date:?2024 Generated for Yovanny toussaint/Leah/Lois on:?08/19/2024 03:32 PM EDT History and Physical [...] by , , who serves as , Garment Presser/Activity Manager , additional Historian , and/who is physically [...]
--- OUTSIDE RECORDS SUMMARY | 2024-08-19 15:32 | XMS_ITS | Encounter Summary ---
Author Organization [facility] Address [address] [place] [address] Phone Care Team Providers Care Towerman Name Role Phone Truong Colon MD Primary Care Provider +1- [phone] Encounter Details Date Type Department Care Team (Late Contact Info) Description 06/03/2024 Documentation Only [facility] [address] [place] [address] Kylie Gabriel [address] [place] [address] Social History Tobacco Use Types [...] [facility] [address] [place] [address] Romero Jimenez MD [address] [place] [address] [place] [address] documented as of this encounter Visit Diagnoses Not on filedocumented in this encounter Care Teams Towerman Relationship Specialty Start Date End Date Truong Colon MD [address] [place] [address] PCP - General Internal Medicine 03/06/23 documented as of this encounter
--- OUTSIDE RECORDS SUMMARY | 2024-08-19 15:32 | XMS_ITS | Encounter Summary ---
Author Organization [facility] Address [address] [place] [address] Phone Care Team Providers Care Shot Coat Tender Name Role Phone Truong Colon MD Primary Care Provider +1- [phone] Encounter Details Date Type Department Care Team (Late Contact Info) Description 11/09/2021 Documentation Only [facility] [address] [place] [address] Dimitris Suarez PA Social History [...] Upcoming Encounters Date Type Department Care Team ([facility] Contact Info) Description 12/02/2024 1:40 PM EDT Office Visit [facility] [address] [place] [address] Romero Jimenez MD [address] [place] [address] [place] [address] documented as of this encounter Visit Diagnoses Not on filedocumented in this encounter Care Teams Shot Coat Tender Relationship Specialty Start Date End Date Truong Colon MD [address] [place], [place] [address] PCP - General Internal Medicine 03/06/23 documented as of this encounter
--- OUTSIDE RECORDS SUMMARY | 2024-08-19 15:32 | XMS_ITS | Encounter Summary ---
Author Organization [facility] Address [address] [place] [address] Phone Care Team Providers Care Php Engineer Name Role Phone Truong Colon MD Primary Care Provider +1- [phone] Encounter Details Date Type Department Care Team (Late Contact Info) Description 04/24/2024 Documentation Only [facility] [address] [place] [address] Kylie Gabriel [address] [place] [address] Social History Tobacco Use Types [...] [facility] [address] [place] [address] Romero Jimenez MD [address] [place] [address] [place] [address] documented as of this encounter Visit Diagnoses Not on filedocumented in this encounter Care Teams Php Engineer Relationship Specialty Start Date End Date Truong Colon MD [address] [place] [address] PCP - General Internal Medicine 03/06/23 documented as of this encounter
--- OUTSIDE RECORDS SUMMARY | 2024-08-19 15:32 | XMS_ITS | Encounter Summary ---
Author Organization [facility] Address [address] [place] [address] Phone Care Team Providers Care Light Truck Driver Name Role Phone Truong Colon MD Primary Care Provider +1- [phone] Encounter Details Date Type Department Care Team (Late Contact Info) Description 10/29/2023 Documentation Only [facility] [address] [place] [address] Kylie Gabriel [address] [place] [address] Social History Tobacco Use Types [...] [facility] [address] [place] [address] Romero Jimenez MD [address] [place] [address] [place] [address] documented as of this encounter Visit Diagnoses Not on filedocumented in this encounter Care Teams Light Truck Driver Relationship Specialty Start Date End Date Truong Colon MD [address] [place] [address] PCP - General Internal Medicine 03/06/23 documented as of this encounter
--- OUTSIDE RECORDS SUMMARY | 2024-08-19 15:32 | XMS_ITS | Encounter Summary ---
Author Organization [facility] Address [address] [place] [address] Phone Care Team Providers Care Tube Cleaning Operator Name Role Phone Truong Colon MD Primary Care Provider +1- [phone] Encounter Details Date Type Department Care Team (Late Contact Info) Description 04/10/2024 Documentation Only [facility] [address] [place] [address] Kylie Gabriel [address] [place] [address] Social History Tobacco Use Types [...] Visit [facility] [address] [place] [place] [address] Romero Jimenez MD [address] [place] [address] [place] [address] documented as of this encounter Visit Diagnoses Not on filedocumented in this encounter Care Teams Tube Cleaning Operator Relationship Specialty Start Date End Date Truong Colon MD [address] [place] [address] PCP - General Internal Medicine 03/06/23 documented as of this encounter
--- OUTSIDE RECORDS SUMMARY | 2024-08-19 15:32 | XMS_ITS | Encounter Summary ---
Author Organization [facility] Address [address] [place] [address] Phone Care Team Providers Care Completion Supervisor Name Role Phone Truong Colon MD Primary Care Provider +1- [phone] Encounter Details Date Type Department Care Team (Late Contact Info) Description 04/04/2024 Documentation Only [facility] [address] [place] [address] Jasmin Dumont [address] [place] [address] Social History Tobacco Use Types [...] [facility] [address] [place] [address] Romero Jimenez MD [address] [place] [address] [place] [address] documented as of this encounter Visit Diagnoses Not on filedocumented in this encounter Care Teams Completion Supervisor Relationship Specialty Start Date End Date Truong Colon MD [address] [place] [address] PCP - General Internal Medicine 03/06/23 documented as of this encounter
--- OUTSIDE RECORDS SUMMARY | 2024-08-19 15:32 | XMS_ITS | Encounter Summary ---
Author Organization [facility] Address [address] [place] [address] Phone Care Team Providers Care Broodmare Foreman Name Role Phone Truong Colon MD Primary Care Provider +1- [phone] Encounter Details Date Type Department Care Team (Late Contact Info) Description 01/21/2024 Orders Only [facility] [address] [place] [address] Dimitris Suarez PA Stage 3a [...] [facility] [address] [place] [address] Romero Jimenez MD [address] [place] [address] [place] [address] documented as of this encounter Visit Diagnoses Diagnosis Stage 3a chronic kidney disease (HCC) Essential hypertension Peripheral vascular disease (HCC) Peripheral vascular disease Renal osteodystrophy documented in this encounter Care Teams Broodmare Foreman Relationship Specialty Start Date End Date Truong Colon MD [address] [place] [address] PCP - General Internal Medicine 03/06/23 documented as of this encounter
--- OUTSIDE RECORDS SUMMARY | 2024-08-19 15:32 | XMS_ITS | Encounter Summary ---
Author Organization [facility] Address [address] [place] [address] Phone Care Team Providers Care Automatic Cigar Wrapper Tender Name Role Phone Truong Colon MD Primary Care Provider +1- [phone] Encounter Details Date Type Department Care Team (Late Contact Info) Description 05/04/2022 Documentation Only [facility] [address] [place] [address] Kylie Gabriel [address] [place] [address] Social History Tobacco Use Types [...] [facility] [address] [place] [address] Roemro Jimenez MD [address] [place] [address] [place] [address] documented as of this encounter Visit Diagnoses Not on filedocumented in this encounter Care Teams Automatic Cigar Wrapper Tender Relationship Specialty Start Date End Date Truong Colon MD [address] [place] [address] PCP - General Internal Medicine 03/06/23 documented as of this encounter
--- OUTSIDE RECORDS SUMMARY | 2024-08-19 15:33 | XMS_ITS | Encounter Summary ---
Author Organization [facility] Address [address] [place] [address] Phone Care Team Providers Care Sql Server Developer Name Role Phone Truong Colon MD Primary Care Provider +1- [phone] Encounter Details Date Type Department Care Team (Late Contact Info) Description 04/29/2024 Documentation Only [facility] [address] [place] [address] Britt Sol [address] [place] [address] Social History Tobacco Use Types [...] [facility] [address] [place] [address] Romero Jimenez MD [address] [place] [address] [place] [address] documented as of this encounter Visit Diagnoses Not on filedocumented in this encounter Care Teams Sql Server Developer Relationship Specialty Start Date End Date Truong Colon MD [address] [place] [address] PCP - General Internal Medicine 03/06/23 documented as of this encounter
--- OUTSIDE RECORDS SUMMARY | 2024-08-19 15:33 | XMS_ITS ---
Author Organization [facility], Address [address] [place] [address] [place] [address] Phone Care Team Providers Care Cube Machine Tender Name Role Phone Truong Colon MD Primary Care Provider +1- [phone] Active Problems Problem Noted Date Diagnosed Date [...]
--- OUTSIDE RECORDS SUMMARY | 2024-08-19 15:33 | XMS_ITS | Encounter Summary ---
Author Organization [facility] Address [address] [place] [address] Phone Care Team Providers Care Solutions Consultant Name Role Phone Truong Colon MD Primary Care Provider +1- [phone] Encounter Details Date Type Department Care Team (Late Contact Info) Description 07/31/2024 Documentation Only [facility] [address] [place] [address] Kylie Gabriel [address] [place] [address] Social History Tobacco Use Types [...] [facility] [address] [place] [address] Romero Jimenez MD [address] [place] [address] [place] [address] documented as of this encounter Visit Diagnoses Not on filedocumented in this encounter Care Teams Solutions Consultant Relationship Specialty Start Date End Date Truong Colon MD [address] [place] [address] PCP - General Internal Medicine 03/06/23 documented as of this encounter
--- OUTSIDE RECORDS SUMMARY | 2024-08-19 15:33 | XMS_ITS | Encounter Summary ---
Author Organization [facility] Address [address] [place] [address] Phone Care Team Providers Care Block And Case Maker Name Role Phone Truong Colon MD Primary Care Provider +1- [phone] Encounter Details Date Type Department Care Team (Late Contact Info) Description 08/04/2024 Documentation Only [facility] [address] [place] [address] Kylie Gabriel [address] [place] [address] Social History Tobacco Use Types [...] [facility] [address] [place] [address] Romero Jimenez MD [address] [place] [address] [place] [address] documented as of this encounter Visit Diagnoses Not on filedocumented in this encounter Care Teams Block And Case Maker Relationship Specialty Start Date End Date Truong Colon MD [address] [place] [address] PCP - General Internal Medicine 03/06/23 documented as of this encounter
--- OUTSIDE RECORDS SUMMARY | 2024-08-19 15:33 | XMS_ITS | Clinical Summary ---
Author Organization [facility] Address [address] [place] [address] Phone Care Team Providers Care Parer Name Role Phone Truong Colon MD Primary Care Provider +1 [phone] Allergies Active Allergy Reactions Criticality Noted Date [...] left breast in female, estrogen receptor positive ([facility] V24, [facility] V28) 07/03/2023 Iron deficiency anemia 05/18/2022 Acquired hypothyroidism 03/28/2017 Gastroesophageal reflux disease without esophagi tis 03/28/2017 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 Encounters Date Type Department Care Team Description 07/17/2024 10:53 AM EDT - 07/17/2024 11:59 PM EDT Hospital En[facility] [address] [id number] Encounter for screening mammogram for malignant neoplasm of breast Discharge Disposition: Home or Self Care 06/09/2024 Telephone [facility] Hematology Oncology [address] [place] [phone] Jillian-Jennifer Brooks MD from Last 3 Months Surgical History Surgery Date Site/Laterality Comments LUMBAR DISC SURGERY PROCEDURE:LUMBAR DISC SURGERY Medical History Medical History Date Comments Malignant neoplasm of upper- outer quadrant of left female breast ([facility] V24, [facility] V28) DX:Malignant neoplasm of upp er-outer quadrant [...] Description 10/02/2024 11:00 AM EDT Office Visit [facility] Hematology Oncology [address] [place] [address] Jillian-Jennifer Gonzalez MD [address] [place] [address] Health Maintenance Due Date Last [...] year. Mammo Location: [facility], [address] [place] [address], [address], . -------- FINAL REPORT -------- Dictated By: Lilly Ayala Dictated Date: 07/22/2024 16:10 ET Assigned Physician: Lilly Ayala Reviewed and Electronically Signed By: Lilly Ayala Signed Date: 07/22/2024 16:14 ET Workstation ID: [id number] Transcribed By: Self Edit Transcribed Date: 07/22/2024 [...] year. Mammo Location: [facility], [address] [place] [address], [address], . -------- FINAL REPORT -------- Dictated By: Lilly Ayala Dictated Date: 07/22/2024 16:10 ET Assigned Physician: Lilly Ayala Reviewed and Electronically Signed By: Lilly Ayala Signed Date: 07/22/2024 16:14 ET Workstation ID: [id number] Transcribed By: Self Edit Transcribed Date: 07/22/2024 16:10 ET Jennifer Ca MD IMG BI PROCEDURES F inal Result * DXA BONE DENSITY STUDY 1+ LYLA MANN SKEL (10/07/2021 10:23 AM EDT) Anatomical Region Laterality Modality Bone Densitometr y 05/10/2021 11:5 1 AM EST Narrative 10/07/2021 4:32 PM EDT Clinical history: other osteoporosis Scans of the lumbar spine and hips were performed on a [employer] fan beam bone densitometer. ? Bone mineral [...] spine and hips were performed on a [employer] beam bone densitometer. Bone mineral density measurements [...] Group ID:[id number] Type:Not on file Address: [address] [place] [address] Care Teams Parer Relationship Specialty Start Date End Date Truong Colon MD [address] [place] [address] [address] [place], [place] PCP - General 05/19/22
--- OUTSIDE RECORDS SUMMARY | 2024-08-19 15:33 | XMS_ITS | Encounter Summary ---
Author Organization [facility] Address [address] [place] [address] Phone Care Team Providers Care Freezer Laboratory Technician Name Role Phone Truong Colon MD Primary Care Provider +1- [phone] Encounter Details Date Type Department Care Team (Late Contact Info) Description 07/02/2024 Documentation Only [facility] [address] [place] [address] [place] [address] [place] [address] Social History Tobacco Use Types Packs/Day [...] [facility] [address] [place] [address] Romero Jimenez MD [address] [place] [address] [place] [address] documented as of this encounter Visit Diagnoses Not on filedocumented in this encounter Care Teams Freezer Laboratory Technician Relationship Specialty Start Date End Date Truong Colon MD [address] [place] [address] PCP - General Internal Medicine 03/06/23 documented as of this encounter
--- OUTSIDE RECORDS SUMMARY | 2024-08-19 15:33 | XMS_ITS | Encounter Summary ---
Author Organization [facility] Address [address] [place] [address] Phone Care Team Providers Care Riveter Helper Name Role Phone Truong Colon MD Primary Care Provider +1- [phone] Encounter Details Date Type Department Care Team (Late Contact Info) Description 07/11/2024 Orders Only [facility] [address] [place] [address] Kylie Gabriel [address] [place] [address] Anemia in chronic kidney disease; [...] Visit [facility] [address] [place] [address] Romero Jimenez MD [address] [place] [address] documented as of this encounter Visit Diagnoses Diagnosis Anemia in chronic kidney disease Stage 3b chronic kidney disease (HCC) Iron deficiency anemia, not otherwise specified documented in this encounter Care Teams Riveter Helper Relationship Specialty Start Date End Date Truong Colon MD [address] [place] [address] PCP - General Internal Medicine 03/06/23 documented as of this encounter
--- OUTSIDE RECORDS SUMMARY | 2024-08-19 15:33 | XMS_ITS | Encounter Summary ---
Author Organization [facility] Address [address] [place] [address] Phone Care Team Providers Care Log Pond Worker Name Role Phone Truong Colon MD Primary Care Provider +1- [phone] Encounter Details Date Type Department Care Team (Late Contact Info) Description 08/08/2024 Orders Only [facility] [address] [place] [address] Kylie Gabriel [address] [place] [address] Anemia in chronic kidney disease; [...] Visit [facility] [address] [place] [address] Romero Jimenez MD [address] [place] [address] documented as of this encounter Visit Diagnoses Diagnosis Anemia in chronic kidney disease Stage 3b chronic kidney disease (HCC) Iron deficiency anemia, not otherwise specified documented in this encounter Care Teams Log Pond Worker Relationship Specialty Start Date End Date Truong Colon MD [address] [place] [address] PCP - General Internal Medicine 03/06/23 documented as of this encounter
--- OUTSIDE RECORDS SUMMARY | 2024-08-19 15:33 | XMS_ITS | Encounter Summary ---
Author Organization [facility] Address [address] [place] [address] Phone Care Team Providers Care Bearing Machine Operator Name Role Phone Truong Colon MD Primary Care Provider +1- [phone] Encounter Details Date Type Department Care Team (Late Contact Info) Description 06/13/2024 Orders Only [facility] [address] [place] [address] Kylei Gabriel [address] [place] [address] Anemia in chronic kidney disease; [...] Visit [facility] [address] [place] [address] Romero Jimenez MD [address] [place] [address] documented as of this encounter Visit Diagnoses Diagnosis Anemia in chronic kidney disease Stage 3b chronic kidney disease (HCC) Iron deficiency anemia, not otherwise specified documented in this encounter Care Teams Bearing Machine Operator Relationship Specialty Start Date End Date Truong Colon MD [address] [place] [address] PCP - General Internal Medicine 03/06/23 documented as of this encounter
--- OUTSIDE RECORDS SUMMARY | 2024-08-19 15:33 | XMS_ITS | Clinical Summary ---
Author Organization [facility], Address [address] [place] [address] [place] [address] Phone Care Team Providers Care Gelatin Dynamite Packing Operator Name Role Phone Truong Colon MD Primary Care Provider +1- [phone] Allergies Active Allergy Reactions Criticality Noted Date [...] ASIA TABLETA POR VIA ORAL TODOS LOS TREVION Duration: 90 03/22/20 16 Active amLODIPine (NORVASC) [...] Visit [facility], [address] [place] [address] Romero Jimenez MD Stage 3b chronic kidney disease (HCC) (Primary Dx) 08/12/2024 Documentation Only [facility] [address] [place] [address] Sabrina Membreno [place] 08/11/2024 Office Communication [facility] [address] [place] [address] Deisi [place]field, RN 08/08/2024 Orders Only [facility] [address] [place] [address] Kylie Gabriel Anemia in chronic kidney disease; Stage 3b chronic kidney disease (HCC); Iron deficiency anemia, not otherwise specified 08/06/2024 Documentation Only [facility] [address] [place] [address] Deisi Wakefield, RN labs overdue 08/04/2024 Documentation Only [facility] [address] [place] [address] Kylie Gabriel 07/31/2024 Documentation Only [facility] [address] [place] [address] Kylie Gabriel 07/31/2024 Office Communication [facility] [address] [place] [address] Deisi Wakefield, RN 07/16/2024 3:45 PM EDT Office Visit [facility] [address] [place] [place] [address] Romero Jimenez MD Stage 3b chronic kidney disease (HCC) (Primary Dx) 07/11/2024 Orders Only [facility] [address] [place] [address] Kylie Gabriel Anemia in chronic kidney disease; Stage 3b chronic kidney disease (HCC); Iron deficiency anemia, not otherwise specified 07/02/2024 Documentation Only [facility] [address] [place] [address] Sabrina Membreno [place] 06/13/2024 Orders Only [facility] [address] [place] [address] Kylie Gabriel Anemia in chronic kidney disease; Stage 3b chronic kidney disease (HCC); Iron deficiency anemia, not otherwise specified 06/05/2024 Telephone [facility] [address] [place] [address] Deisi Wakefield, RN reminder for labs 06/03/2024 Documentation Only [facility] [address] [place] [address] Kylie Gabriel 05/31/2024 Office Communication [facility] [address] [place] [address] Deisi Wakefield, ROGELIO 05/31/2024 Telephone [facility] [address] [place] [address] Deisi Wakefield, RN 05/27/2024 Documentation Only [facility] [address] [place] [address] Kylie Gabriel from Last 3 Months Immunizations Immunization Administration [...] Visit [facility], [address] [place] [address] Romero Jimenez MD [address] [place] [address] Health Maintenance Due Date Last Done Comments [...] Most Recently Relevant to Health Maintenance Insurance [facility] Care Dual SNP ([id number]) Care Teams Gelatin Dynamite Packing Operator Relationship Specialty Start Date End Date Truong Colon MD [address] [place] [address] PCP - General Internal Medicine 03/06/23
== END 2024-08-19 14:08 | disposition home or self-care (01) ==
LOC: HO.RHE 13:29
PROVIDERS: PCP Internal Medicine; Visit Provider Student in an Organized Health Care Education/Training Program
DX: M79.7 Fibromyalgia (principal); M54.41 Lumbago with sciatica, right side; G89.29 Other chronic pain
CPT/HCPCS: 99213

== ENCOUNTER → 2024-08-19 13:29 | Outpatient (BNVA) | payer OTHER, SELFPAY | PROVIDERS: PCP Internal Medicine; Visit Provider Student in an Organized Health Care Education/Training Program | DX: I49.1 Atrial premature depolarization (principal); I10 Essential (primary) hypertension; R00.1 Bradycardia, unspecified; M79.7 Fibromyalgia; M54.41 Lumbago with sciatica, right side; G89.29 Other chronic pain | CPT/HCPCS: 93005; 99212 ==

== ENCOUNTER 2024-08-19 14:55 | Outpatient (AMB) | payer OTHER, SELFPAY ==
--- NOTE | 2024-08-19 14:58 | A.OFFVIS_ITS ---
Vital Signs 08/19/24 14:59 Height 5 ft 10 in Weight 227 lb 1.218 oz BMI 32.6 BP 120/74 Blood Pressure Location Lt brachial Position Sitting Pulse 57 Intake Visit Reasons: 2 yrs followup w/ekg dx: htn Intake Note: 2 year follow-up with ekg dx htn hearts doing ok Chef'S Assistant Required: Yes Chef'S Assistant Services: Chef'S Assistant Present Chef'S Assistant Name: christiano Shearer Allergies Penicillins [PENICILLINS] Allergy (Intermediate, Verified 08/13/24 16:08) rash senna Allergy (Intermediate, Verified 08/13/24 16:08) rash Medication List - Last Reconciled 08/19/24 by Salomon Merrill MD amlodipine 5 mg PO DAILY 90 days bisacodyl 5 mg PO BEDTIME 90 days calcitriol 1 mcg PO WE@1645 cane As directed - use when walking carvedilol 12.5 mg PO BID 90 days [Commode As directed] [DISPOSABLE BED PADS Use as directed ONCE A DAY] [DISPOSABLE GLOVES - LARGE (1 box/month) Use as directed] docusate sodium 100 mg PO DAILY PRN [FEMININE PADS As directed] hydroxyzine HCl 25 mg PO BID PRN levothyroxine 125 mcg PO DAILY@0600 [MEDICATED INCONTINENCE WIPES As directed] multivitamin 1 tab PO DAILY omeprazole 40 mg PO DAILY@0630 pregabalin 75 mg PO BEDTIME 90 days [ROLLATOR As directed] [ROLLATOR As directed] HPI Comments Details: Jacinda comes for follow-up. History was obtained with help of doweling machine operator over the telephone. Since I saw 2 years ago she had a fall and currently walk with a walker. With a walker she was not had any significant fall issues. The fall was due to lack of balance. She has not had any. Denies any exertional chest pain or shortness of breath. Denies any orthopnea, PND, leg edema. No palpitations or prolonged irregular heartbeat or fast heart rate. REPLACED BY [facility] Medical History Ambulates with cane Difficulty swallowing Osteoarthritis of right knee BPV (benign positional vertigo) Gait instability Cervicogenic headache Cervicalgia Vertigo Chronic kidney disease, stage III (moderate) Obesity (BMI 30-39.9) Gastritis Benign essential hypertension GERD without esophagitis Acquired hypothyroidism Constipation Lumbar spondylosis Post laminectomy syndrome Connective tissue disease Interstitial lung disease Osteopenia PAC (premature atrial contraction) Sjogrens syndrome Hypothyroid Breast cancer Raynauds disease SAMARA positive Surgical History 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) Hx of colonoscopy Hx of tubal ligation H/O varicose vein stripping History of cataract surgery H/O lumpectomy Hx of cholecystectomy History of back surgery Family History Father Emphysema of lung Cancer Brother Emphysema of lung Mother Bone cancer Son PONV (postoperative nausea and vomiting) Other Arthritis Social History Household Members: Significant Other and Children Housing: Apartment Are you a primary child care cook to a significant other at home: No Do you presently have visiting nurse or other home services: No Alcohol intake: never Comment: pt reports this is her baseline pain Patient Tobacco Use Status: Never used Tobacco e-Cigarette/Vaping Use: Never Used Second Hand Smoke Exposure: No service: No Current occupational status: retired Cognitive needs: No Hearing needs: No Vision needs: Yes (Glasses) Review of Systems Const Denies chills, Denies fatigue, Denies fever(s), Denies frequent falls, Denies we akness, Denies weight gain and Denies weight loss ENT Denies dizziness Card Denies chest pain, Denies leg edema, Denies lightheadedness, Denies palpit ations, Denies dyspnea, Denies dyspnea on exertion, Denies orthopnea and Denies other (loss of consciousness) Resp Denies cough, Denies dyspnea and Denies dyspnea on exertion GI Denies hematochezia and Denies change in stool character Musc Denies abnormal gait, Denies muscle weakness, Denies numbness, Denies radiating pain into limb and Denies tingling Neuro Denies abnormal gait, Denies dizziness, Denies frequent falls, Denies numbness, Denies tingling and Denies weakness Endo Denies fatigue and Denies palpitations Physical Exam Vital Signs: Last Vital Signs Pulse 57 08/19/24 14:59 BP 120/74 08/19/24 14:59 BMI result Body Mass Index 32.6 Const General: cooperative, comfortable, no acute distress, alert and awake Nutritional Appearance: obese Orientation/consciousness: patient oriented x3 Limitations: no limitations Neck Neck: Yes trachea midline, Yes supple and Yes no JVD Resp Effort & Inspection: normal respiratory effort Auscultation: clear to auscultation bilaterally Cardio Jugular venous distension: no JVD Palpation: normal PMI Rate: regular rate Rhythm: regular rhythm Heart sounds: S1 normal heart sound present and S2 normal heart sound present Skin General skin exam: no rashes or lesions noted Neuro General: patient oriented x3 and no focal motor deficits Extrem General: Yes no clubbing, cyanosis or edema Psych Appearance: grossly normal Office Procedures EKG Details: EKG shows sinus rhythm with sinus arrhythmias 57 beats per minute 60829-Ejpqdugpwtqatpjhr, Complete Assessment & Plan Assessment & Plan (1) PAC (premature atrial contraction): Comment: Sees Dr. Merrill Code(s): I49.1 - Atrial premature depolarization Category: Medical Plan: Patient with prior cardiac arrhythmias with mostly PACs. No prolonged symptoms suggestive of atrial fibrillation. Risk of this was discussed. Advised to avoid stimulants. Continue carvedilol therapy. No other pharmacotherapy is recommended at this point time. (2) Benign essential hypertension: Code(s): I10 - Essential (primary) hypertension Category: Medical Plan: Blood pressure which has been very well controlled on current therapy with amlodipine and carvedilol. Has done well with blood pressure control. Importance of good blood pressure control was discussed. Importance of compliance with medication was discussed. She understands agrees. Low-salt diet was discussed. Advised to monitor blood pressure at home maintain a log. Will follow up in the clinic in 2 years time, sooner p.r.n.. Thank you for allowing me to partake in her care Coding Level of Care Code Est Pt Level 4 (49960) Complex EM visit Add On G2211 Diagnoses PAC (premature atrial contraction) I49.1 Benign essential hypertension I10 CPT Codes EKG - CPT: 35162-Yiappokqfxtlfzkoo, Complete ([id number])
[2024-08-19 14:59] VITALS: BP 120/74; PULSE 57; BMI 32.6
== END 2024-08-19 15:28 | disposition home or self-care (01) ==
LOC: HO.HCS 14:56
PROVIDERS: PCP Internal Medicine; Visit Provider Internal Medicine Cardiovascular Disease
DX: I49.1 Atrial premature depolarization (principal); I10 Essential (primary) hypertension
CPT/HCPCS: 93010; 99214; G2211

== ENCOUNTER 2024-08-29 10:17 | Outpatient (REF) | payer OTHER, SELFPAY ==
--- NOTE | ~2024-08-29 | XR_ITS ---
CLINICAL HISTORY: M54.50 - Low back pain, unspecified --- Additional Notes or Special Instructions: S tanding, AP and lateral with flexion-extension views Exam: AP, lateral, flexion lateral, and extension lateral views of the lumbar spine. Comparison: CT abdomen and pelvis August 13, 2024. Findings: Alignment is anatomic on the AP view. Neutral lateral view demonstrates 2 mm of anterolisthesis of L3 on L4. This is not significantly change with flexion or extension. No acute fracture. Multilevel degenerative disc disease and degenerative facet disease is not appreciably changed compared to the patient's abdominal CT from less than 1 month prior. There is disc space narrowing with osteophytic ridging and vacuum phenomenon at multiple levels. Impression: Multilevel degenerative change. No abnormal motion. This document has been electronically signed by: Romero Bo MD on 08/31/2024 06:54:16
--- OUTSIDE RECORDS SUMMARY | 2024-08-29 11:15 | XMS_ITS | Encounter Summary ---
Author Organization [facility] Address [address] [place] [address] Phone Care Team Providers Care Information Coder Name Role Phone Truong Colon MD Primary Care Provider +1- [phone] Encounter Details Date Type Department Care Team (Late Contact Info) Description 04/10/2024 Documentation Only [facility] [address] [place] [address] Kylie Gabriel [address] [place] [address] Social History Tobacco Use Types [...] [facility] [address] [place] [address] Romero Jimenez MD [address] [place] [address] [place] [address] documented as of this encounter Visit Diagnoses Not on filedocumented in this encounter Care Teams Information Coder Relationship Specialty Start Date End Date Truong Colon MD [address] [place] [address] PCP - General Internal Medicine 03/06/23 documented as of this encounter
--- OUTSIDE RECORDS SUMMARY | 2024-08-29 11:15 | XMS_ITS | Encounter Summary ---
Author Organization [facility] Address [address] [place] [address] Phone Care Team Providers Care Basketball Referee Name Role Phone Truong Colon MD Primary Care Provider +1- [phone] Encounter Details Date Type Department Care Team (Late Contact Info) Description 12/21/2021 Documentation Only [facility] [address] [place] [address] Dimitris Suarez PA Social History [...] Upcoming Encounters Date Type Department Care Team ([facility] Contact Info) Description 12/02/2024 1:40 PM EDT Office Visit [facility] [address] [place] [address] Romero Jimenez MD [address] [place] [address] [place] [address] documented as of this encounter Visit Diagnoses Not on filedocumented in this encounter Care Teams Basketball Referee Relationship Specialty Start Date End Date Truong Colon MD [address] [place], [place] [id number] PCP - General Internal Medicine 03/06/23 documented as of this encounter
--- OUTSIDE RECORDS SUMMARY | 2024-08-29 11:15 | XMS_ITS | Encounter Summary ---
Author Organization [facility] Address [address] [place] [address] Phone Care Team Providers Care Form Setter/Driver Name Role Phone Truong Colon MD Primary Care Provider +1- [phone] Encounter Details Date Type Department Care Team (Late Contact Info) Description 05/27/2024 Documentation Only [facility] [address] [place] [address] Kylie Gabriel [address] [place] [address] Social History Tobacco Use Types [...] Visit [facility] [address] [place] [address] Romero Jimenez MD [address] [place] [address] [place] [address] documented as of this encounter Visit Diagnoses Not on filedocumented in this encounter Care Teams Form Setter/Driver Relationship Specialty Start Date End Date Truong Colon MD [address] [place] [address] PCP - General Internal Medicine 03/06/23 documented as of this encounter
--- OUTSIDE RECORDS SUMMARY | 2024-08-29 11:15 | XMS_ITS | Clinical Summary ---
Author Organization [facility] Address [address] [place] [address] Care Team Providers Care Cargo Surveyor Name Role Phone Truong Colon MD Primary Care Provider +1- [phone] Allergies Active Allergy Reactions Criticality Noted Date [...] age to complete this topic Care Teams Cargo Surveyor Relationship Specialty Start Date End Date Truong Colon MD [address] [place] [id number] PCP - General Internal Medicine 05/19/22
--- OUTSIDE RECORDS SUMMARY | 2024-08-29 11:15 | XMS_ITS | Encounter Summary ---
Author Organization [facility] Address [address] [place] [address] Phone Care Team Providers Care Bond Broker Name Role Phone Truong Colon MD Primary Care Provider +1- [phone] Encounter Details Date Type Department Care Team (Late Contact Info) Description 05/16/2024 Orders Only [facility] [address] [place] [address] Kylie Gabriel [address] [place] [address] Anemia in chronic kidney disease; [...] Of [facility] [address] [place] [address] Romero Jimenez MD [address] [facility] [place] [address] documented as of this encounter Visit Diagnoses Diagnosis Anemia in chronic kidney disease Stage 3b chronic kidney disease (HCC) Iron deficiency anemia, not otherwise specified documented in this encounter Care Teams Bond Broker Relationship Specialty Start Date End Date Truong Colon MD [address] [place] [address] PCP - General Internal Medicine 03/06/23 documented as of this encounter
--- OUTSIDE RECORDS SUMMARY | 2024-08-29 11:15 | XMS_ITS | Encounter Summary ---
Author Organization [facility] Address [address] [place] [address] Phone Care Team Providers Care Quarry Extraction Worker Name Role Phone Truong Colon MD Primary Care Provider +1- [phone] Encounter Details Date Type Department Care Team (Late Contact Info) Description 06/03/2024 Documentation Only [facility] [address] [place] [address] Kylie Gabriel [address] [place] [address] Social History Tobacco Use Types [...] [facility] [address] [place] [address] Romero Jimenez MD [address] [place] [address] [place] [address] documented as of this encounter Visit Diagnoses Not on filedocumented in this encounter Care Teams Quarry Extraction Worker Relationship Specialty Start Date End Date Truong Colon MD [address] [place] [address] PCP - General Internal Medicine 03/06/23 documented as of this encounter
--- OUTSIDE RECORDS SUMMARY | 2024-08-29 11:15 | XMS_ITS ---
Author Organization [facility] Address [address] [place] [address] Care Team Providers Care Sustainability Project Manager Name Role Phone Truong Colon MD Primary Care Provider +1- [phone] Active Problems Problem Noted Date Diagnosed Date Iron deficiency anemia 05/18/2022 Malignant neoplasm of upper- outer quadrant of left breast in female, estrogen receptor positive 03/28/2017 Gastroesophageal reflux disease without esophagi tis 03/28/2017 Acquired hypothyroidism 03/28/2017 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 Current Oncology Plans No current plan information found. Past Plans Radiation Treatments * No radiation treatments are documented for this patient in [facility]. Treatments may have been administered in another system.
--- OUTSIDE RECORDS SUMMARY | 2024-08-29 11:15 | XMS_ITS | Encounter Summary ---
Author Organization [facility] Address [address] [place] [address] Phone Care Team Providers Care Automation Tester Name Role Phone Truong Colon MD Primary Care Provider +1- [phone] Encounter Details Date Type Department Care Team (Late Contact Info) Description 01/14/2024 Documentation Only [facility] [address] [place] [address] [place] [address] [place] [address] Social History Tobacco Use Types Packs/Day [...] Visit [facility] [address] [place] [address] Romero Jimenez MD [address] [facility] [place] [address] documented as of this encounter Visit Diagnoses Not on filedocumented in this encounter Care Teams Automation Tester Relationship Specialty Start Date End Date Truong Colon MD [address] [place] [address] PCP - General Internal Medicine 03/06/23 documented as of this encounter
--- OUTSIDE RECORDS SUMMARY | 2024-08-29 11:15 | XMS_ITS | Encounter Summary ---
Author Organization [facility] Address [address] [place] [address] Phone Care Team Providers Care Senior Teller Name Role Phone Truong Colon MD Primary Care Provider +1- [phone] Encounter Details Date Type Department Care Team (Late Contact Info) Description 10/26/2023 Documentation Only [facility] [address] [place] [address] Kylie Gabriel [address] [place] [address] Social History Tobacco Use Types [...] [facility] [address] [place] [address] Romero Jimenez MD [address] [place] [address] [place] [address] documented as of this encounter Visit Diagnoses Not on filedocumented in this encounter Care Teams Senior Teller Relationship Specialty Start Date End Date Truong Colon MD [address] [place] [address] PCP - General Internal Medicine 03/06/23 documented as of this encounter
--- OUTSIDE RECORDS SUMMARY | 2024-08-29 11:15 | XMS_ITS | Encounter Summary ---
Author Organization [facility] Address [address] [place] [address] Phone Care Team Providers Care President [employer] Name Role Phone Truong Colon MD Primary Care Provider +1- [phone] Encounter Details Date Type Department Care Team (Late Contact Info) Description 08/12/2024 Documentation Only [facility] [address] [place] [address] [place] [address] [place] [address] Social History Tobacco Use Types Packs/Day [...] [facility] [address] [place] [address] Romero Jimenez MD [address] [place] [address] [place] [address] documented as of this encounter Visit Diagnoses Not on filedocumented in this encounter Care Teams President [place] [employer] Relationship Specialty Start Date End Date Truong Colon MD [address] [place] [address] PCP - General Internal Medicine 03/06/23 documented as of this encounter
--- OUTSIDE RECORDS SUMMARY | 2024-08-29 11:15 | XMS_ITS | Encounter Summary ---
Author Organization [facility] Address [address] [place] [address] Phone Care Team Providers Care Inhalation Therapy Aide Name Role Phone Truong Colon MD Primary Care Provider +1- [phone] Encounter Details Date Type Department Care Team (Late Contact Info) Description 04/11/2022 Documentation Only [facility] [address] [place] [address] Kylie Gabriel [address] [place] [address] Social History Tobacco Use Types [...] [facility] [address] [place] [address] Romero Jimenez MD [address] [place] [address] [place] [address] documented as of this encounter Visit Diagnoses Not on filedocumented in this encounter Care Teams Inhalation Therapy Aide Relationship Specialty Start Date End Date Truong Colon MD [address] [place] [address] PCP - General Internal Medicine 03/06/23 documented as of this encounter
--- OUTSIDE RECORDS SUMMARY | 2024-08-29 11:15 | XMS_ITS | Encounter Summary ---
Author Organization [facility], Address [address] [place] [address] Phone Care Team Providers Care Physical Security Manager Name Role Phone Truong Colon MD Primary Care Provider +1- [phone] Encounter Details Date Type Department Care Team (Late Contact Info) Description 01/23/2024 Documentation Only [facility], - [address] [place] [address] Jasmin Dumont [address] [place] [address] Social History Tobacco Use Types Packs/Day [...] Visit [facility], [address] [place] [address] Romero Jimeenz MD [address] [facility] [place] [address] documented as of this encounter Visit Diagnoses Not on filedocumented in this encounter Care Teams Physical Security Manager Relationship Specialty Start Date End Date Truong Colon MD [address] [place] [address] PCP - General Internal Medicine 03/06/23 documented as of this encounter
--- OUTSIDE RECORDS SUMMARY | 2024-08-29 11:15 | XMS_ITS | Encounter Summary ---
Author Organization [facility] Address [address] [place] [address] Phone Care Team Providers Care Warehouse Sorter Name Role Phone Truong Colon MD Primary Care Provider +1- [phone] Encounter Details Date Type Department Care Team (Late Contact Info) Description 01/31/2024 Documentation Only [facility] [address] [place] [address] Kylie Gabriel [address] [place] [address] Social History Tobacco Use Types [...] [facility] [address] [place] [address] Romero Jimenez MD [address] [place] [address] [place] [address] documented as of this encounter Visit Diagnoses Not on filedocumented in this encounter Care Teams Warehouse Sorter Relationship Specialty Start Date End Date Truong Colon MD [address] [place] [address] PCP - General Internal Medicine 03/06/23 documented as of this encounter
--- OUTSIDE RECORDS SUMMARY | 2024-08-29 11:15 | XMS_ITS | Encounter Summary ---
Author Organization [facility] Address [address] [place] [address] Phone Care Team Providers Care Deckhand Oyster Dredge Name Role Phone Truong Colon MD Primary Care Provider +1- [phone] Encounter Details Date Type Department Care Team (Late Contact Info) Description 10/29/2023 Documentation Only [facility] [address] [place] [address] Kylie Gabriel [address] [place] [address] Social History Tobacco Use Types [...] [facility] [address] [place] [address] Romero Jimenez MD [address] [place] [address] [place] [address] documented as of this encounter Visit Diagnoses Not on filedocumented in this encounter Care Teams Deckhand Oyster Dredge Relationship Specialty Start Date End Date Truong Colon MD [address] [place] [address] PCP - General Internal Medicine 03/06/23 documented as of this encounter
--- OUTSIDE RECORDS SUMMARY | 2024-08-29 11:15 | XMS_ITS | Encounter Summary ---
Author Organization [facility] Address [address] [place] [address] Phone Care Team Providers Care Heel Sprayer Name Role Phone Truong Colon MD Primary Care Provider +1- [phone] Encounter Details Date Type Department Care Team (Late Contact Info) Description 04/24/2024 Documentation Only [facility] [address] [place] [address] Kylie Gabriel [address] [place] [address] Social History Tobacco Use Types [...] [facility] [address] [place] [address] Romero Jimenez MD [address] [place] [address] [place] [address] documented as of this encounter Visit Diagnoses Not on filedocumented in this encounter Care Teams Heel Sprayer Relationship Specialty Start Date End Date Truong Colon MD [address] [place] [address] PCP - General Internal Medicine 03/06/23 documented as of this encounter
--- OUTSIDE RECORDS SUMMARY | 2024-08-29 11:15 | XMS_ITS | Encounter Summary ---
Author Organization [facility] Address [address] [place] [address] Phone Care Team Providers Care Gastroenterology Nurse Name Role Phone Truong Colon MD Primary Care Provider +1- [phone] Encounter Details Date Type Department Care Team (Late Contact Info) Description 05/12/2021 Documentation Only [facility] [address] [place] [address] Eligio Meza MD [address] [place] [address] [place] [address] Social History Tobacco Use [...] Visit [facility] [address] [place] [address] Romero Jimenez MD [address] [place] [address] documented as of this encounter Visit Diagnoses Not on filedocumented in this encounter Care Teams Gastroenterology Nurse Relationship Specialty Start Date End Date Truong Colon MD [address] [place] [address] PCP - General Internal Medicine 03/06/23 documented as of this encounter
--- OUTSIDE RECORDS SUMMARY | 2024-08-29 11:15 | XMS_ITS | Encounter Summary ---
Author Organization [facility] Address [address] [place] [address] Phone Care Team Providers Care Customs Brokerage Agent Name Role Phone Truong Colon MD Primary Care Provider +1- [phone] Encounter Details Date Type Department Care Team (Late Contact Info) Description 01/21/2024 Orders Only [facility] [address] [place] [address] Dimitris Suarez PA Stage 3a [...] [facility] [address] [place] [address] Romero Jimenez MD [address] [place] [address] [place] [address] documented as of this encounter Visit Diagnoses Diagnosis Stage 3a chronic kidney disease (HCC) Essential hypertension Peripheral vascular disease (HCC) Peripheral vascular disease Renal osteodystrophy documented in this encounter Care Teams Customs Brokerage Agent Relationship Specialty Start Date End Date Truong Colon MD [address] [place] [address] PCP - General Internal Medicine 03/06/23 documented as of this encounter
--- OUTSIDE RECORDS SUMMARY | 2024-08-29 11:15 | XMS_ITS | Encounter Summary ---
Author Organization [facility] Address [address] [place] [address] Phone Care Team Providers Care Tongue Stitcher Name Role Phone Truong Colon MD Primary Care Provider +1- [phone] Encounter Details Date Type Department Care Team (Late Contact Info) Description 04/14/2022 Documentation Only [facility] [address] [place] [address] Eligio Meza MD [address] [place] [address] [place] [address] Social History Tobacco Use Types [...] Visit [facility] [address] [place] [address] Romero Jimenez MD [address] [place] [address] documented as of this encounter Visit Diagnoses Not on filedocumented in this encounter Care Teams Tongue Stitcher Relationship Specialty Start Date End Date Truong Colon MD [address] [place] [address] PCP - General Internal Medicine 03/06/23 documented as of this encounter
--- OUTSIDE RECORDS SUMMARY | 2024-08-29 11:15 | XMS_ITS | Encounter Summary ---
Author Organization [facility] Address [address] [place] [address] Phone Care Team Providers Care [employer] Executive Director Name Role Phone Truong Colon MD Primary Care Provider +1- [phone] Encounter Details Date Type Department Care Team (Late Contact Info) Description 05/04/2022 Documentation Only [facility] [address] [place] [address] Kylie Gabriel [address] [place] [address] Social History Tobacco Use Types [...] [facility] [address] [place] [address] Romero Jimenez MD [address] [place] [address] [place] [address] documented as of this encounter Visit Diagnoses Not on filedocumented in this encounter Care Teams [employer] Executive Director Relationship Specialty Start Date End Date Truong Colon MD [address] [place] [address] PCP - General Internal Medicine 03/06/23 documented as of this encounter
--- OUTSIDE RECORDS SUMMARY | 2024-08-29 11:16 | XMS_ITS | Encounter Summary ---
Author Organization [facility] Address [address] [place] [address] Phone Care Team Providers Care Rail Walker Name Role Phone Truong Colon MD Primary Care Provider +1- [phone] Encounter Details Date Type Department Care Team (Late Contact Info) Description 07/31/2024 Documentation Only [facility] [address] [place] [address] Kylie Gabriel [address] [place] [address] Social History Tobacco Use Types [...] [facility] [address] [place] [address] Romero Jimenez MD [address] [place] [address] [place] [address] documented as of this encounter Visit Diagnoses Not on filedocumented in this encounter Care Teams Rail Walker Relationship Specialty Start Date End Date Truong Colon MD [address] [place] [address] PCP - General Internal Medicine 03/06/23 documented as of this encounter
--- OUTSIDE RECORDS SUMMARY | 2024-08-29 11:16 | XMS_ITS | Clinical Summary ---
Author Organization [facility] Address [address] [place] [address] Phone Care Team Providers Care Scrap Drop Operator Name Role Phone Truong Colon MD Primary Care Provider +1 [phone] Allergies Active Allergy Reactions Criticality Noted Date [...] left breast in female, estrogen receptor positive ([facility] V24, [facility] V28) 07/03/2023 Iron deficiency anemia 05/18/2022 Acquired hypothyroidism 03/28/2017 Gastroesophageal reflux disease without esophagi tis 03/28/2017 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 Encounters Date Type Department Care Team Description 07/17/2024 10:53 AM EDT - 07/17/2024 11:59 PM EDT Hospital [facility] [address] [id number] Encounter for screening mammogram for malignant neoplasm of breast Discharge Disposition: Home or Self Care 06/09/[address] [facility] Hematology Oncology [address] [place] [phone] Jillian-Jennifer Brooks MD from Last 3 Months Surgical History Surgery Date Site/Laterality Comments LUMBAR DISC SURGERY PROCEDURE:LUMBAR DISC SURGERY Medical History Medical History Date Comments Malignant neoplasm of upper- outer quadrant of left female breast ([facility] V24, [facility] V28) DX:Malignant neoplasm of upp er-outer quadrant [...] Description 10/02/2024 11:00 AM EDT Office Visit [facility] Hematology Oncology [address] [place] [address] Jillian-Jennifer Gonzalez MD [address] [place] [address] Health Maintenance Due Date Last [...] year. Mammo Location: [facility], [address] [place] [address], [address], . -------- FINAL REPORT -------- Dictated By: Lilly Ayala Dictated Date: 07/22/2024 16:10 ET Assigned Physician: Lilly Ayala Reviewed and Electronically Signed By: Lilly Ayala Signed Date: 07/22/2024 16:14 ET Workstation ID: [id number] Transcribed By: Self Edit Transcribed Date: 07/22/2024 [...] year. Mammo Location: [facility], [address] [place] [address], [address], . -------- FINAL REPORT -------- Dictated By: Lilly Ayala Dictated Date: 07/22/2024 16:10 ET Assigned Physician: Lilly Ayala Reviewed and Electronically Signed By: Lilly Ayala Signed Date: 07/22/2024 16:14 ET Workstation ID: [id number] Transcribed By: Self Edit Transcribed Date: 07/22/2024 16:10 ET Jennifer Ca MD IMG BI PROCEDURES F inal Result * DXA BONE DENSITY STUDY 1+ LYLA MANN SKEL (10/07/2021 10:23 AM EDT) Anatomical Region Laterality Modality Bone Densitometr y 05/10/2021 11:5 1 AM EST Narrative 10/07/2021 4:32 PM EDT Clinical history: other osteoporosis Scans of the lumbar spine and hips were performed on a [employer] fan beam bone densitometer. ? Bone mineral [...] ? < -2.5 with fractures Procedure Note Péerz Ulloa MD - 04/11/2022 Clinical history: other osteoporosis Scans of the lumbar spine and hips were performed on a [employer] beam bone densitometer. Bone mineral density measurements [...] Group ID:SCO Type:Not on file Address: [address] [place] [address] Care Teams Scrap Drop Operator Relationship Specialty Start Date End Date Truong Colon MD [address] [place] [address] [address] [place], [place] PCP - General 05/19/22
--- OUTSIDE RECORDS SUMMARY | 2024-08-29 11:16 | XMS_ITS | Encounter Summary ---
Author Organization [facility] Address [address] [place] [address] Phone Care Team Providers Care Supervisor Steel Division Name Role Phone Truong Colon MD Primary Care Provider +1- [phone] Encounter Details Date Type Department Care Team (Late Contact Info) Description 11/09/2021 Documentation Only [facility] [address] [place] [address] Dimitris Suarez PA Social History [...] Upcoming Encounters Date Type Department Care Team ([facility] Contact Info) Description 12/02/2024 1:40 PM EDT Office Visit [facility] [address] [place] [address] Romero Jimenez MD [address] [place] [address] [place] [address] documented as of this encounter Visit Diagnoses Not on filedocumented in this encounter Care Teams Supervisor Steel Division Relationship Specialty Start Date End Date Truong Colon MD [address] [place], [place] [id number] PCP - General Internal Medicine 03/06/23 documented as of this encounter
--- OUTSIDE RECORDS SUMMARY | 2024-08-29 11:16 | XMS_ITS | Encounter Summary ---
Author Organization [facility] Address [address] [place] [address] Phone Care Team Providers Care Life Skills Worker Name Role Phone Truong Colon MD Primary Care Provider +1- [phone] Encounter Details Date Type Department Care Team (Late Contact Info) Description 04/04/2024 Documentation Only [facility] [address] [place] [address] Jasmin Dumont [address] [place] [address] Social History Tobacco Use Types [...] [facility] [address] [place] [address] Romero Jimenez MD [address] [place] [address] [place] [address] documented as of this encounter Visit Diagnoses Not on filedocumented in this encounter Care Teams Life Skills Worker Relationship Specialty Start Date End Date Truong Colon MD [address] [place] [address] PCP - General Internal Medicine 03/06/23 documented as of this encounter
--- OUTSIDE RECORDS SUMMARY | 2024-08-29 11:16 | XMS_ITS | Encounter Summary ---
Author Organization [facility] Address [address] [place] [address] Phone Care Team Providers Care House Player Name Role Phone Truong Colon MD Primary Care Provider +1- [phone] Encounter Details Date Type Department Care Team (Late Contact Info) Description 04/10/2024 Documentation Only [facility] [address] [place] [place] [address] Kylie Gabriel [address] [place] [address] Social History Tobacco Use Types [...] [facility] [address] [place] [place] [address] Romero Jimenez MD [address] [place] [address] [place] [address] documented as of this encounter Visit Diagnoses Not on filedocumented in this encounter Care Teams House Player Relationship Specialty Start Date End Date Truong Colon MD [address] [place] [address] PCP - General Internal Medicine 03/06/23 documented as of this encounter
--- OUTSIDE RECORDS SUMMARY | 2024-08-29 11:16 | XMS_ITS | Encounter Summary ---
Author Organization [facility] Address [address] [place] [address] Phone Care Team Providers Care Jig And Fixture Repairer Name Role Phone Truong Colon MD Primary Care Provider +1- [phone] Encounter Details Date Type Department Care Team (Late Contact Info) Description 08/08/2024 Orders Only [facility] [address] [address] Kylie Gabriel [address] [place] [address] Anemia in chronic kidney disease; [...] Services Of [facility] [address] [address] Romero Jimenez MD [address] [facility] [address] [place] [address] documented as of this encounter Visit Diagnoses Diagnosis Anemia in chronic kidney disease Stage 3b chronic kidney disease (HCC) Iron deficiency anemia, not otherwise specified documented in this encounter Care Teams Jig And Fixture Repairer Relationship Specialty Start Date End Date Truong Colon MD [address] [place] [address] PCP - General Internal Medicine 03/06/23 documented as of this encounter
--- OUTSIDE RECORDS SUMMARY | 2024-08-29 11:16 | XMS_ITS ---
Author Organization [facility] Address [address] [place] [address] [place] [address] Phone Care Team Providers Care Nurse Recruiter Name Role Phone Truong Colon MD Primary Care Provider +1- [phone] Active Problems Problem Noted Date Diagnosed Date [...]
--- OUTSIDE RECORDS SUMMARY | 2024-08-29 11:16 | XMS_ITS | Continuity of Care Document ---
Author Organization [facility] Address [address] [place] [address] Phone Care Team Providers Care Projection Printer Name Role Phone Amanuel DURAN FACS RVT [...] Providers Copied on Encounter [facility], [address], [id number], [place] tel:[phone] [facility] [place] No Information 3 Amanuel DURAN FACS T SIMÓN Pinto. [address] [facility] [address] [facility], [address], [place], [address], [place]. [phone] Referring Provider: Truong Colon MD, [address], [place], [address]. tel:[phone] Office/Outpt E&M Established 25 Mins [facility], [address] [place] [address] Dr [address], [id number], [place] tel:[phone] [facility] [place] Body mass index (BMI) 34.0-34.9, adultVenous insufficiency (chronic) (peripheral) 3 Amanuel DURAN FACS Yoni Pinto. [address] [place] [address], [place] [address], [place], [address], [place]. [phone] Referring Provider: Truong Colon MD, [address], [place], [address]. 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 [address] [place] [address], [address], [place], [address], [place]. [phone] Referring Provider: Truong Colon MD, [address], [place], [address]. 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 [facility] [facility], [address], [place], [address], [place]. tel:[phone] Referring Provider: Truong Colon MD, [address], [place], [address]. tel:[phone] [facility], [address] [place] [address] [address], [id number], [place] tel:[phone] [facility] [place] Encntr for f/u exam aft trtmt for cond oth than malig neoplmVenous insufficiency (chronic) (peripheral) 3 Amanuel DURAN FACS RVT SIMÓN Pinto. [address] [facility] [facility] [address], [place], [address], [place]. [phone] Referring Provider: Truong Colon MD, [address] [place] [address] Dr [address], [place], [address]. 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 [address] [facility], [facility] [address], [place], [address], [place]. [phone] Referring Provider: Truong Colon MD, [address] [place] [address] Dr [address], [place], [address]. 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 [address] [facility], [facility] [address], [place], [address], [place]. tel:[phone] Referring Provider: Truong Colon MD, [address] [facility] [address] [address], [place], [address]. tel:[phone] Family History Family Member Type Diagnosis Age At Onset No Information Payers Payer name Insurance type Covered constitution party ID Josefina haynes(s) [facility] [id number] Social History Type Description Quantity Date Captured [...]
--- OUTSIDE RECORDS SUMMARY | 2024-08-29 11:16 | XMS_ITS | Encounter Summary ---
Author Organization [facility] Address [address] [place] [address] Phone Care Team Providers Care Utility Division Project Manager Name Role Phone Truong Colon MD Primary Care Provider +1- [phone] Encounter Details Date Type Department Care Team (Late Contact Info) Description 04/29/2024 Documentation Only [facility] [address] [place] [address] Britt Sol [address] [place] [address] Social History Tobacco Use [...] Visit [facility] [address] [place] [address] Romero Jimenez MD [address] [place] [address] [place] [address] documented as of this encounter Visit Diagnoses Not on filedocumented in this encounter Care Teams Utility Division Project Manager Relationship Specialty Start Date End Date Truong Colon MD [address] [place] [address] PCP - General Internal Medicine 03/06/23 documented as of this encounter
--- OUTSIDE RECORDS SUMMARY | 2024-08-29 11:16 | XMS_ITS | Encounter Summary ---
Author Organization [facility] Address [address] [place] [address] Phone Care Team Providers Care Tire Inspector Name Role Phone Truong Colon MD Primary Care Provider +1- [phone] Encounter Details Date Type Department Care Team (Late Contact Info) Description 10/26/2023 Documentation Only [facility] [address] [place] [address] Kylie Gabriel [address] [place] [address] Social History Tobacco Use Types [...] [facility] [address] [place] [place] [address] Romero Jimenez MD [address] [place] [address] [place] [address] documented as of this encounter Visit Diagnoses Not on filedocumented in this encounter Care Teams Tire Inspector Relationship Specialty Start Date End Date Truong Colon MD [address] [place] [address] PCP - General Internal Medicine 03/06/23 documented as of this encounter
--- OUTSIDE RECORDS SUMMARY | 2024-08-29 11:16 | XMS_ITS | Encounter Summary ---
Author Organization [facility] Address [address] [place] [address] Phone Care Team Providers Care Magnetic Tester Name Role Phone Truong Colon MD Primary Care Provider +1- [phone] Encounter Details Date Type Department Care Team (Late Contact Info) Description 07/02/2024 Documentation Only [facility] [address] [place] [address] [place] [address] [place] [address] Social History Tobacco Use Types Packs/Day [...] [facility] [address] [place] [address] Romero Jimenez MD [address] [place] [address] [place] [address] documented as of this encounter Visit Diagnoses Not on filedocumented in this encounter Care Teams Magnetic Tester Relationship Specialty Start Date End Date Truong Colon MD [address] [place] [address] PCP - General Internal Medicine 03/06/23 documented as of this encounter
--- OUTSIDE RECORDS SUMMARY | 2024-08-29 11:16 | XMS_ITS | Encounter Summary ---
Author Organization [facility] Address [address] [place] [address] Phone Care Team Providers Care Horticultural Farmer Name Role Phone Truong Colon MD Primary Care Provider +1- [phone] Encounter Details Date Type Department Care Team (Late Contact Info) Description 06/13/2024 Orders Only [facility] [address] [place] [address] Kylie Gabriel [address] [place] [address] Anemia in chronic kidney disease; [...] Visit [facility] [address] [place] [address] Romero Jimenez MD [address] [facility] [place] [address] documented as of this encounter Visit Diagnoses Diagnosis Anemia in chronic kidney disease Stage 3b chronic kidney disease (HCC) Iron deficiency anemia, not otherwise specified documented in this encounter Care Teams Horticultural Farmer Relationship Specialty Start Date End Date Truong Colon MD [address] [place] [address] PCP - General Internal Medicine 03/06/23 documented as of this encounter
--- OUTSIDE RECORDS SUMMARY | 2024-08-29 11:16 | XMS_ITS | Encounter Summary ---
Author Organization [facility] Address [address] [place] [address] Phone Care Team Providers Care Blind Stitch Machine Operator Name Role Phone Truong Colon MD Primary Care Provider +1- [phone] Encounter Details Date Type Department Care Team (Late Contact Info) Description 07/11/2024 Orders Only [facility] [address] [place] [address] Kylie Gabriel [address] [place] [address] Anemia in chronic kidney disease; [...] Visit [facility] [address] [place] [address] Romero Jimenez MD [address] [place] [address] documented as of this encounter Visit Diagnoses Diagnosis Anemia in chronic kidney disease Stage 3b chronic kidney disease (HCC) Iron deficiency anemia, not otherwise specified documented in this encounter Care Teams Blind Stitch Machine Operator Relationship Specialty Start Date End Date Truong Colon MD [address] [place] [address] PCP - General Internal Medicine 03/06/23 documented as of this encounter
--- OUTSIDE RECORDS SUMMARY | 2024-08-29 11:16 | XMS_ITS | Clinical Summary ---
Author Organization [facility], Address [address] [place] [address] [place] [address] Phone Care Team Providers Care Keypunch Operators Supervisor Name Role Phone Truong Colon MD Primary Care Provider +1- [phone] Allergies Active Allergy Reactions Criticality Noted Date [...] Visit [facility], [address] [place] [address] Romero Jimenez MD Stage 3b chronic kidney disease (HCC) (Primary Dx) 08/12/2024 Documentation Only [facility] [address] [place] [address] Sabrina Membreno [place] 08/11/2024 Office Communication [facility] [address] [place] [address] Deisi Wakefield, RN 08/08/2024 Orders Only [facility] [address] [place] [address] Kylie Gabriel Anemia in chronic kidney disease; Stage 3b chronic kidney disease (HCC); Iron deficiency anemia, not otherwise specified 08/06/2024 Documentation Only [facility] [address] [place] [address] Deisi Wakefield, RN labs overdue 08/04/2024 Documentation Only [facility] [address] [place] [address] Kylie Gabriel 07/31/2024 Documentation Only [facility] [address] [place] [address] Kylie Gabriel 07/31/2024 Office Communication [facility] [address] [address] Deisi Wakefield, RN 07/16/2024 3:45 PM EDT Office Visit [facility] [address] [place] [address] Romero Jimenez MD Stage 3b chronic kidney disease (HCC) (Primary Dx) 07/11/2024 Orders Only [facility] [address] [place] [address] Kylie Gabriel Anemia in chronic kidney disease; Stage 3b chronic kidney disease (HCC); Iron deficiency anemia, not otherwise specified 07/02/2024 Documentation Only [facility] [address] [place] [address] Sabrina Membreno [place] 06/13/2024 Orders Only [facility] [address] [place] [address] Kylie Gabriel Anemia in chronic kidney disease; Stage 3b chronic kidney disease (HCC); Iron deficiency anemia, not otherwise specified 06/05/2024 Telephone [facility] [address] [place] [address] Deisi Wakefield, RN reminder for labs 06/03/2024 Documentation Only [facility] [address] [place] [address] Kylie Gabriel from Last 3 [...] Visit [facility], [address] [place] [address] Romero Jimenez MD [address] [facility] [place] [address] Health Maintenance Due Date Last Done Comments [...] Phone Billing Address Personal/Family Self [address] [facility] One [employer] Dual SNP ([id number]) Care Teams Keypunch Operators Supervisor Relationship Specialty Start Date End Date Truong Colon MD [address] [place] [address] PCP - General Internal Medicine 03/06/23
--- OUTSIDE RECORDS SUMMARY | 2024-08-29 11:16 | XMS_ITS | Encounter Summary ---
Author Organization [facility] Address [address] [place] [address] Phone Care Team Providers Care Cuff Stitcher Name Role Phone Truong Colon MD Primary Care Provider +1- [phone] Encounter Details Date Type Department Care Team (Late Contact Info) Description 08/04/2024 Documentation Only [facility] [address] [place] [address] Kylie Gabriel [address] [place] [address] Social History Tobacco Use Types [...] [facility] [address] [place] [address] Romero Jimenez MD [address] [place] [address] [place] [address] documented as of this encounter Visit Diagnoses Not on filedocumented in this encounter Care Teams Cuff Stitcher Relationship Specialty Start Date End Date Truong Colon MD [address] [place] [address] PCP - General Internal Medicine 03/06/23 documented as of this encounter
== END 2024-08-29 10:18 | disposition home or self-care (01) ==
LOC: HO.HOSX 10:17
PROVIDERS: PCP Internal Medicine; Referring Provider Internal Medicine; Visit Provider Physician Assistant
DX: M54.50 Low back pain, unspecified (principal); M54.16 Radiculopathy, lumbar region
CPT/HCPCS: 72110; 99202

== ENCOUNTER 2024-08-29 10:17 | Outpatient (AMB) | payer OTHER, SELFPAY ==
--- NOTE | 2024-08-29 10:29 | A.SPINEOV_ITS ---
Vital Signs 08/29/24 10:32 Height 5 ft 10 in Weight 233 lb BMI 33.4 Intake Visit Reasons: lumbar radiculopathy Intake Note: Ms. Blancas is here today c/o low back pain. Dobby Looms Pegger Required: Yes Dobby Looms Pegger Services: Dobby Looms Pegger Present Dobby Looms Pegger Name: Ally Awad LM Allergies Penicillins [PENICILLINS] Allergy (Intermediate, Verified 08/29/24 10:36) rash senna Allergy (Intermediate, Verified 08/29/24 10:36) rash Physical Exam Vital Signs: BMI result Body Mass Index 33.4 Assessment & Plan Assessment & Plan (1) Low back pain: Code(s): M54.50 - Low back pain, unspecified Category: Medical (2) Lumbar radiculopathy: Code(s): M54.16 - Radiculopathy, lumbar region Category: Medical Plan Dear Dr Deluna, Thank you for referring Mrs Blancas to our office today. She is a very nice 78-year-old female who presents to the office today for evaluation of chronic low back pain and right lower extremity pain which radiates down into her anterior thigh, posterior thigh going into her calf when she stands and walks. It gets better when she sits down but does not completely go away. She had a previous history of an L3-4, L4-5 laminectomy done in with good results. This most recent pain started a few years ago and has steadily gotten worse. She was seen at your office. She did undergo conservative treatment with injection and was considered for a spinal cord stimulator trial but she tells us that she was not all that interested in the idea of neuromodulation. She takes Tylenol every day to help with the pain. She has had 2 severely limit her ac tivities based on the discomfort. She has previously done physical therapy and has had no success with this whatsoever. She comes in today with an MRI done at [facility] showing advancing central canal stenosis at L2-3 amongst other degenerative changes. PMH: He is reasonably healthy for age, history of hypertension, arthritis. She has some degree of chronic kidney disease, but is followed at the kidney office in [place] in his told she is stable with no worsening of her kidney function in quite some time. 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 Denies any history of heart attacks, strokes, lung diseases, liver disease, bleeding disorders, cancer Social hx: She does not smoke, drink use any recreational drugs Medications: Gabapentin, carvedilol, amlodipine, calcitriol, levothyroxine, omeprazole, Colace, Tylenol Allergies: Penicillin Physical exam: Patient is awake alert oriented x3, I used Ally as my seasonal customer service associate for this visit. The patient is able to stand up on her own, walks in the hallway with a walker slowly, able to do turns with adequate stability. Strength is somewhat limited by pain in her right leg but there is no focal deficits. Reflexes diminished bilaterally at the patella and the Achilles. Imaging review: Lumbar MRI done at [facility] shows advanced degenerative disc disease at multiple levels of the lumbar spine with postsurgical changes at L3-4 and L4-5 with big laminectomy defect. There is advancing stenosis at L2-3 which I would rate as severe. Upright x-rays did not show any evidence of instability or scoliotic curvature. Impression: 78-year-old female presents today for chronic low back pain as well as right leg pain with standing and walking. The pain goes down the front of her thigh and the back of her thigh into her calf. It goes away when she sits down. She has failed conservative treatment as above. She does not wish to be considered for neuromodulation. I reviewed her imaging with Dr. Merino, he believes she would be a good candidate for a right L2-3 decompression. We did have a lengthy conversation about the distinction between back pain and leg pain in the setting of surgery. In order to treat back pain it would require a multilevel fusion in her bone quality is just not strong enough to support this. Therefore, we directed our conversation at improving her leg pain and not the back pain. Dr. Merino believes she would be a good candidate for the decompression, and the patient would like to proceed. Success rate quoted at 90% Pt was given risk and benefits of surgery including but not limited to infection, hematoma , nerve injury,durotomy, weakness,bowel/bladder injury, persistent pain, as well as the option to continue with conservative treatment and patient wishes to proceed with surgery. Pt is aware they should stop their motrin, aspirin 7 days prior to surgery. All questions were answered to the best of our ability. If there is anything about this patients medical history that we have overlooked or concerns you have about us proceeding with surgery we would appreciate any input you can offer. Thank you for allowing us to care for your patient. The total time spent with this visit with this patient was 45 minutes reviewing history, physical exam, lumbar imaging review, and implementation of treatment plan or further diagnostic testing Laith Merino MD,PhD [facility] Orders: Orders XR lumbar spine 4V min Today M54.50 - Low back pain, unspecified Coding Level of Care Code New Pt Level 4 (23829) Diagnoses Low back pain M54.50 Lumbar radiculopathy M54.16
[2024-08-29 10:32] VITALS: BMI 33.4
--- OUTSIDE RECORDS SUMMARY | 2024-08-29 10:45 | XMS_ITS ---
Author Organization [employer] [facility] Address [address] [place] [address] Care Team Providers Care Rasper Machine Operator Name Role Phone Truong Colon MD Primary Care Provider +1- [phone] Active Problems Problem Noted Date Diagnosed Date Iron deficiency anemia 05/18/2022 Malignant neoplasm of upper- outer quadrant of left breast in female, estrogen receptor positive 03/28/2017 Gastroesophageal reflux disease without esophagi tis 03/28/2017 Acquired hypothyroidism 03/28/2017 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 Current Oncology Plans No current plan information found. Past Plans Radiation Treatments * No radiation treatments are documented for this patient in [facility]. Treatments may have been administered in another system.
--- OUTSIDE RECORDS SUMMARY | 2024-08-29 10:45 | XMS_ITS | Encounter Summary ---
Author Organization [facility] Address [address] [place] [address] Phone Care Team Providers Care Cardiograph Operator Name Role Phone Truong Colon MD Primary Care Provider +1- [phone] Encounter Details Date Type Department Care Team (Late Contact Info) Description 10/29/2023 Documentation Only [facility] [address] [place] [address] Kylie Gabriel [address] [place] [address] Social History Tobacco Use Types [...] [facility] [address] [place] [address] Romero Jimenez MD [address] [place] [address] [place] [address] documented as of this encounter Visit Diagnoses Not on filedocumented in this encounter Care Teams Cardiograph Operator Relationship Specialty Start Date End Date Truong Colon MD [address] [place] [address] PCP - General Internal Medicine 03/06/23 documented as of this encounter
--- OUTSIDE RECORDS SUMMARY | 2024-08-29 10:45 | XMS_ITS ---
Author Organization [facility] Address [address] [facility] [place] [address] Care Team Providers Care Tube Coater Name Role Phone Isaiah DURAN, Truong Primary Care Provider Boby Laguerre Unavailable [phone] Allergies Allergen (clinical drug ingredient) Drug/Non Drug [...] Ordered Date Performed Result Body Sit e 31818-HCEMHXO NAIL, 6 OR MORE 05/05/2024 N/A 58916-AVYP SKIN LESIONS, OVER 4 05/05/2024 N/A Encounters Encounter Location Date Provider Diagnosis [facility] [address] [address] 05/05/2024 Boby Chapman Atherosclerosis of andreafski artery of both lower extremities, with unspecified presence of clinical manifestation I70.203 ; Tinea unguium B35.1 ; Pain in right toe(s) M79.674 ; Pain in left toe(s) M79.675 ; Other hammer toe(s) (acquired), right foot M20.41 and Other hammer toe(s) (acquired), left foot M20.42 Assessments Encounter Date Diagnosis (ICD Code) Assessment Notes Treatment Notes Treatment Clinical Notes Section Notes 05/05/2024 Atherosclerosis of andreafski artery of both lower extremities, with unspecified [...] days Pending Test Test Name Order Date 44458-SILFOBW NAIL, 6 OR MORE 05/05/2024 59512-RGLI SKIN LESIONS, OVER 4 05/05/19 25 Next Appt Details Follow Up: 2 Months, Reason: Provider Name:Boby Chapman , 10/30/2024 02:45:00 PM, [address], [place], [address], Procedure Notes * Category Sub-Category Detail Notes [...] use of a nail nipper and/or dremel-type crankshaft grinder, to a more viable healthy nail [...] to maintain effectiveness in symptomatic relief - 37158 Keratoma Treatment Parring or Cutting o f [...] instrumentation by the physician of record - 68014, Q8 Progress Notes * Tommie BLANCASOB:[birth year] (78 yo F)Acc No.[id number]:05/05/2024 Progress Note Patient:?Jacinda BLANCAS Provider:?Boby Chapman DPM :1945???Age:78 Y???Sex:Female D ate:05/05/2024 Address:[address] [place], [place] [address] Pcp:Truong Colon MD Subjective: * Chief Complaints: [...] by , , who serves as , Cnc Programmer/Search Engine Marketing Manager , additional Historian , and/who is physically present in exam room at time of visit.?ORIENTED:?person, place, and time.?FOOT EXAM:?Lower Extremity Neurological Exam performed:?Yes ?Visual exam of foot performed:?Yes ?Date?05/05/2024 ?Footwear Evaluation?Footwear Evaluation performed:?Yes??? Assessment: * Assessment: 1.?Tinea unguium - B35.1???2 .?Atherosclerosis of andreafski artery of both lower extremities, with unspecified presence of clinical manifestation - I70.203 (Primary)???3.?Pain in right toe(s) - M79.674???4.?Pain in left toe(s) - M79.675 ??5.?Other hammer toe(s) (acquired), right foot - M20.41???Specify :Chronic problem, Worse (4),Rx Management (4)???6.?Other hammer toe(s) (acquired), left foot - M20.42???Specify :Chronic problem, Worse (4),Rx Management (4)??? Plan: * Treatment: 2.?Tinea unguium?Procedure: 00287-YKGZKFX NAIL, 6 OR MORE 3.?Other hammer toe(s) [...] use of a nail nipper and/or dremel-type crankshaft grinder, to a more viable healthy nail [...] to maintain effectiveness in symptomatic relief - 44132.?Keratoma Treatment:?Parring or Cutting of Benign Hyperkeratotic Lesion(s)?(-57) [...] instrumentation by the physician of record - 31805, Q8.? * Procedure Codes:?53790 DEBRI DE NAIL, 6 OR MORE, Modifiers: XS 68706 TRIM SKIN LESIONS, OVER 4, Modifiers: XS [...] Chapman DPM Date:?2024 Generated for Yovanny toussaint/Leah/Lois on:?08/29/2024 10:45 AM EDT History and Physical Notes * HPI [...] by , , who serves as , Cnc Programmer/Search Engine Marketing Manager , additional Historian , and/who is [...]
--- OUTSIDE RECORDS SUMMARY | 2024-08-29 10:45 | XMS_ITS | Encounter Summary ---
Author Organization [facility] Address [address] [place] [address] Phone Care Team Providers Care Security Coordinator Name Role Phone Truong Colon MD Primary Care Provider +1- [phone] Encounter Details Date Type Department Care Team (Late Contact Info) Description 01/21/2024 Orders Only [facility] [address] [place] [address] Dimitris Suarez PA Stage 3a [...] Visit [facility] [address] [place] [address] Romero Jimenez MD [address] [place] [address] [place] [address] documented as of this encounter Visit Diagnoses Diagnosis Stage 3a chronic kidney disease (HCC) Essential hypertension Peripheral vascular disease (HCC) Peripheral vascular disease Renal osteodystrophy documented in this encounter Care Teams Security Coordinator Relationship Specialty Start Date End Date Truong Colon MD [address] [place] [address] PCP - General Internal Medicine 03/06/23 documented as of this encounter
--- OUTSIDE RECORDS SUMMARY | 2024-08-29 10:45 | XMS_ITS | Encounter Summary ---
Author Organization [facility] Address [address] [place] [address] Phone Care Team Providers Care Third Miller Name Role Phone Truong Colon MD Primary Care Provider +1- [phone] Encounter Details Date Type Department Care Team (Late Contact Info) Description 04/11/2022 Documentation Only [facility] [address] [place] [address] Kylie Gabriel [address] [place] [address] Social History Tobacco Use Types [...] [facility] [address] [place] [address] Romero Jimenez MD [address] [place] [address] [place] [address] documented as of this encounter Visit Diagnoses Not on filedocumented in this encounter Care Teams Third Miller Relationship Specialty Start Date End Date Truong Colon MD [address] [place] [address] PCP - General Internal Medicine 03/06/23 documented as of this encounter
--- OUTSIDE RECORDS SUMMARY | 2024-08-29 10:45 | XMS_ITS | Encounter Summary ---
Author Organization [facility] Address [address] [place] [address] Phone Care Team Providers Care Sap Bi Developer Name Role Phone Truong Colon MD Primary Care Provider +1- [phone] Encounter Details Date Type Department Care Team (Late Contact Info) Description 05/12/2021 Documentation Only [facility] [address] [place] [address] Eligio Meza MD [address] [place] [address] [place] [address] Social History Tobacco Use Types [...] [facility] [address] [place] [address] Romero Jimenez MD [address] [place] [address] documented as of this encounter Visit Diagnoses Not on filedocumented in this encounter Care Teams Sap Bi Developer Relationship Specialty Start Date End Date Truong Colon MD [address] [place] [address] PCP - General Internal Medicine 03/06/23 documented as of this encounter
--- OUTSIDE RECORDS SUMMARY | 2024-08-29 10:45 | XMS_ITS | Encounter Summary ---
Author Organization [facility] Address [address] [place] [address] Phone Care Team Providers Care Waste Machine Offbearer Name Role Phone Truong Colon MD Primary Care Provider +1- [phone] Encounter Details Date Type Department Care Team (Late Contact Info) Description 05/04/2022 Documentation Only [facility] [address] [place] [address] Kylie Gabriel [address] [place] [address] Social History Tobacco Use Types [...] [facility] [address] [place] [address] Romero Jimenez MD [address] [place] [address] [place] [address] documented as of this encounter Visit Diagnoses Not on filedocumented in this encounter Care Teams Waste Machine Offbearer Relationship Specialty Start Date End Date Truong Colon MD [address] [place] [address] PCP - General Internal Medicine 03/06/23 documented as of this encounter
--- OUTSIDE RECORDS SUMMARY | 2024-08-29 10:45 | XMS_ITS ---
Author Organization [facility] Jaylan sampson [place] Address [address] [place] [address] Care Team Providers Care Manufacturing Tech Name Role Phone Isaiah DURAN, [place] Primary Care Provider Boby Laguerre Unavailable [phone] Allergies Allergen (clinical drug ingredient) Drug/Non Drug [...] Ordered Date Performed Result Body Sit e 11846-VQVNGQB NAIL, 6 OR MORE 01/24/2024 N/A 02090-Phtc Destruction, 1-14 01/24/2024 N/A 83262-OZAK SKIN LESIONS, OVER 4 01/24/2024 N/A Encounters Encounter Location Date Provider Diagnosis [facility] [place] [address] [place] [address] 01/24/2024 Boby Chapman Atherosclerosis of [place] artery of both lower extremities, with unspecified presence of clinical manifestation I70.203 ; Plantar wart B07.0 ; Tinea unguium B35.1 ; Pain in right toe(s) M79.674 ; Pain in left toe(s) M79.675 ; Left foot pain M79.672 and Xerosis of skin L85.3 Assessments Encounter Date Diagnosis (ICD Code) Assessment Notes Treatment Notes Treatment Clinical Notes Section Notes 01/24/2024 Atherosclerosis of [place] artery of both lower extremities, with unspecified [...] 01/24/2024 Pending Test Test Name Order Date 15328-KLQDQIH NAIL, 6 OR MORE 01/24/2024 26060-Dugf Destruction, 1-14 01/24/2024 22942-GVNA SKIN LESIONS, OVER 4 01/24/20 24 Next Appt Details Follow Up: 2 Months, Reason: Provider Name:Boby Chapman , 10/30/2024 02:45:00 PM, [address] , [address], [place], [address], Procedure Notes * Category Sub-Category Detail Notes Wart Treatment Procedure Verrucae were de brided to pin-point bleeding margins with sterile 15 surgical blade, silver nitrate chemocautery applied, recomm. immune-boosting meds such as zinc, recomm. follow up with topical chemosurgical agents, Pt defers any other forms of tx - 20031 Debride Nail 6-10 Nail debridement Performance o f this nail treatment by a nonprofessional would put this patients foot and overall health at risk. Therefore, nail debridement was performed extensively to reduce/remove overall nail length, girth, thickness, subungual debris, and necrotic tissue, by manual and/or electrical means through the use of a nail nipper and/or dremel-type pulp grinder, to a more viable healthy nail plate or bed tissue 6-10. Silver nitrate used for any petechial bleeding as necessary. Definitive antifungal treatment options have been reviewed and discussed with the patient. The patient chooses, no pharmaceutical tx - 59953 Keratoma Treatment Parring or Cutting o f Benign Hyperkeratotic Lesion(s) (-57) More than 4 Lesions - The Benign hyperkeratotic lesions, as described above were pared, and/or cut utilizing a sterile 15 blade, tissue nippers, and/or dremel - 90036 , Q8 Progress Notes * Tommie BLANCASOB:[birth year] (78 yo F)Acc No.[id number]:01/24/2024 Progress Note Patient:?Jacinda BLANCAS Provider:?Boby Chapman DPM :1945???Age:78 Y???Sex:Female D ate:01/24/2024 Address:[address] [place] [address], [phone] Pcp:Truong Colon MD Subjective: * Chief Complaints: [...] wart - B07.0 (Malka ngozi)???Specify :LEFT???2.?Atherosclerosis of [place] artery of both lower extremities, with unspecified presence of clinical manifestation - I70.203???3.?Tinea unguium - B35.1???4.?Pain in right toe(s) - M79.674???5.?Pain in left toe(s) - M79.675???6.?Left foot pain - M79.672???7.?Xerosis of skin - L85.3???Specify :Acute problem, Stable (1=3),Response to treatment - Improvement??? Plan: * Treatment: 2.?Atherosclerosis of [place] artery of both lower extremities, with unspecified presence of clinical manifestation?Procedure: 93693-AYOH SKIN LESIONS, OVER 4 3.?Tinea unguium?Procedure: 49938-GBIDEED NAIL, 6 OR MORE 4.?Xerosis of skin? [...] use of a nail nipper and/or dremel-type pulp grinder, to a more viable healthy nail plate or bed tissue 6-10. Silver nitrate used for any petechial bleeding as necessary. Definitive antifungal treatment options have been reviewed and discussed with the patient. The patient chooses, no pharmaceutical tx - 55374.?Keratoma Treatment:?Parring or Cutting of Benign Hyperkeratotic Lesion(s)?(-57) More than 4 Lesions - The Benign hyperkeratotic lesions, as described above were pared, and/or cut utilizing a sterile 15 blade, tissue nippers, and/or dremel - 65321 , Q8.?Wart Treatment:?Procedure?Verrucae were debrided to pin-point bleeding margins with sterile 15 surgical blade, silver nitrate chemocautery applied, recomm. immune-boosting meds such as zinc, recomm. follow up with topical chemosurgical agents, Pt defers any other forms of tx - 20675.? * Procedure Codes:?82815 DEBRI DE NAIL, 6 OR MORE, Modifiers: XS 25428 Wart Destruction, 1-14, Modifiers: XS 05267 TRIM SKIN LESIONS, OVER 4, Modifiers: XS [...] Chapman DPM Date:?2023 Generated for Yovanny toussaint/Leah/Lois on:?08/29/2024 10:44 AM EDT History and Physical Notes * [...]
--- OUTSIDE RECORDS SUMMARY | 2024-08-29 10:45 | XMS_ITS | Patient Health Record ---
Author Organization [facility] [place] Address [address] [facility] [place] [address] Care Team Providers Care Occ Ther Name Role Phone Isaiah DURAN, [place] Primary Care Provider Boby Laguerre Unavailable [phone] Allergies Allergen (clinical drug ingredient) Drug/Non Drug [...] Problem Acquired hammer toe of right foot (7559303302710411 ) Other hammer toe(s) (acquired), right foot (M20.41) Active confirmed Response to treatment, Improvemen t Problem Acquired hammer toe of left foot (8804711222336098 ) Other hammer toe(s) (acquired), left foot (M20.42) Active confirmed Response to treatment, Improvemen t Problem Atherosclerosis of [place] arteries of the extremities (187631154570758) Atherosclerosis of [place] artery of both lower extremities, with unspecified presence of clinical manifestation (I70.203) Active confirmed Vital Signs Blood pressure diastolic 64 mm Hg 07/31/2024 Height 5 ft 9in in 07/31/2024 Blood pressure systolic 127 mm Hg 07/31/2024 Weight 233 lbs 07/31/2024 BMI 34.4 kg/m2 07/31/2024 Procedures Procedure Date Ordered Date Performed Result Body Sit e 99906-YUEIIIU NAIL, 6 OR MORE 08/30/2023 N/A 84127-Lpvk Destruction, 1-14 08/30/2023 N/A 55019-Nhrhvtdx Plate 08/30/2023 N/A 24487-Fjpnmyvm Plate Each Additional 08/30/2023 N/A 42733-TNTE SKIN LESIONS, OVER 4 08/30/2023 N/A 91735-GDEXKIM NAIL, 6 OR MORE 11/08/2023 N/A 41901-Dtou Destruction, 1-14 11/08/2023 N/A 47926-Apcmdvnh Plate 11/08/2023 N/A 85571-Haezmzxq Plate Each Additional 11/08/2023 N/A 82371-ZXHG SKIN LESIONS, OVER 4 11/08/2023 N/A 04784-CKCPFTD NAIL, 6 OR MORE 01/24/2024 N/A 81046-Gxbf Destruction, 1-14 01/24/2024 N/A 43294-WGEH SKIN LESIONS, OVER 4 01/24/2024 N/A 91349-GQZDHTQ NAIL, 6 OR MORE 05/05/2024 N/A 84147-MSKI SKIN LESIONS, OVER 4 05/05/2024 N/A 08834-EDCCMKO NAIL, 6 OR MORE 07/31/2024 N/A 55297-JTBM SKIN LESIONS, OVER 4 07/31/2024 N/A Encounters Encounter Location Date Provider Diagnosis [address] [address] 08/30/2023 Boby Chapman Atherosclerosis of [place] artery of both lower extremities, with unspecified presence of clinical manifestation I70.203 ; Plantar wart B07.0 ; Tinea unguium B35.1 ; Pain in right toe(s) M79.674 ; Pain in left toe(s) M79.675 ; Ingrown nail L60.0 and Left foot pain M79.[address] [address] 11/08/2023 Boby Chapman Atherosclerosis of [place] artery of both lower extremities, with unspecified presence of clinical manifestation I70.203 ; Plantar wart B07.0 ; Tinea unguium B35.1 ; Pain in right toe(s) M79.674 ; Pain in left toe(s) M79.675 ; Ingrown nail L60.0 ; Left foot pain M79.672 and Xerosis of skin L85.[address] [address] 01/24/2024 Boby Chapman Atherosclerosis of [place] artery of both lower extremities, with unspecified presence of clinical manifestation I70.203 ; Plantar wart B07.0 ; Tinea unguium B35.1 ; Pain in right toe(s) M79.674 ; Pain in left toe(s) M79.675 ; Left foot pain M79.672 and Xerosis of skin L85.[address] [address] 05/05/2024 Boby Chapman Atherosclerosis of [place] artery of both lower extremities, with unspecified presence of clinical manifestation I70.203 ; Tinea unguium B35.1 ; Pain in right toe(s) M79.674 ; Pain in left toe(s) M79.675 ; Other hammer toe(s) (acquired), right foot M20.41 and Other hammer toe(s) (acquired), left foot M20.[address] [address] 07/31/2024 Boby Chapman Atherosclerosis of [place] artery of both lower extremities, with unspecified [...] wart (ICD-10 - B07.0) 08/30/2023 Atherosclerosis of [place] artery of both lower extremities, with unspecified presence of clinical manifestation (ICD-10 - I70.203) 11/08/2023 Plantar wart (ICD-10 - B07.0) 11/08/2023 Atherosclerosis of [place] artery of both lower extremities, with unspecified presence of clinical manifestation (ICD-10 - I70.203) 01/24/2024 Plantar wart (ICD-10 - B07.0) 01/24/2024 Atherosclerosis of [place] artery of both lower extremities, with unspecified presence of clinical manifestation (ICD-10 - I70.203) 05/05/2024 Tinea unguium (ICD-10 - B35.1) 05/05/2024 Atherosclerosis of [place] artery of both lower extremities, with unspecified presence of clinical manifestation (ICD-10 - I70.203) 07/31/2024 Tinea unguium (ICD-10 - B35.1) 07/31/2024 Atherosclerosis of [place] artery of both lower extremities, with unspecified [...] Treatment Pending Test Test Name Order Date 48628-ZQNGDXM NAIL, 6 OR MORE 03/21/2017 24769-IYHQBLR NAIL, 6 OR MORE 05/30/2017 10522-VPPNIER NAIL, 6 OR MORE 08/06/2017 10138-KMCSAFO NAIL, 6 OR MORE 10/25/2017 15194-XKDBBDS NAIL, 6 OR MORE 03/20/2018 36919-PYPZGKO NAIL, 6 OR MORE 06/13/2018 73141-MBEKUUS NAIL, 6 OR MORE 01/07/2018 46594-JOJCKUW NAIL, 6 OR MORE 08/14/2018 88131-TBSXYES NAIL, 6 OR MORE 10/17/2018 64008-UNQAFIA NAIL, 6 OR MORE 01/16/2019 47012-TIPUSDF NAIL, 6 OR MORE 04/03/2019 63492-MKSVYTV NAIL, 6 OR MORE 06/16/2019 28511-UERDWFS NAIL, 6 OR MORE 08/27/2019 66355-JBOVBFV NAIL, 6 OR MORE 12/18/2019 45031-ESRYRGA NAIL, 6 OR MORE 05/06/2020 18338-TZGSYGU NAIL, 6 OR MORE 07/15/2020 84738-STKKMNS NAIL, 6 OR MORE 09/29/2020 48207-CKEFBJO NAIL, 6 OR MORE 12/02/2020 19309-JNLMATE NAIL, 6 OR MORE 02/17/2021 88179-FPSMAKB NAIL, 6 OR MORE 06/16/2021 97959-APVVVXJ NAIL, 6 OR MORE 08/29/2021 69386-RVOZGUV NAIL, 6 OR MORE 11/10/2021 98201-QVOLONL NAIL, 6 OR MORE 01/19/2022 74518-ECKPGIN NAIL, 6 OR MORE 04/05/2022 75631-SWKZNAR NAIL, 6 OR MORE 06/15/2022 73938-FCHMNPN NAIL, 6 OR MORE 08/24/2022 22772-AGHZBKU NAIL, 6 OR MORE 11/16/2022 16214-BXCCGYG NAIL, 6 OR MORE 01/25/2023 95748-THFAHIR NAIL, 6 OR MORE 04/11/2023 82768-BOHAASF NAIL, 6 OR MORE 06/27/2023 67274-FFMEQDS NAIL, 6 OR MORE 08/30/2023 59591-CZLAZRU NAIL, 6 OR MORE 11/08/2023 02175-MJVWIRB NAIL, 6 OR MORE 01/24/2024 28253-OBVXUSX NAIL, 6 OR MORE 05/05/2024 09376-HGUBVML NAIL, 6 OR MORE 07/31/2024 17825-DJDFXSQ NAIL, 1-5 11/01/2016 85068-RAYINNF NAIL, 1-5 01/03/2017 14358-WKXHPDU NAIL, 1-5 11/15/2015 95132-HWRYYVF NAIL, 1-5 01/24/2016 87689-VDBMSPX NAIL, 1-5 04/05/2016 02761-MODVJOP NAIL, 1-5 06/14/2016 66835-DDDUFUG NAIL, -5 08/23/2016 73129-Vtum Destruction, -14 11/01/2016 58488-Less Destruction, -14 01/03/2017 93726-Yxvo Destruction, -14 03/21/2017 30905-Wevv Destruction, -14 05/30/2017 57023-Amfg Destruction, -14 08/06/2017 09630-Xfwt Destruction, -14 05/06/2020 87257-Pnpn Destruction, -14 12/18/2019 88494-Hswt Destruction, 05-0608/27/2019 67475-Qujp Destruction, 05-0606/16/2019 57690-Opnj Destruction, -14 04/03/2019 94454-Liwe Destruction, -14 01/16/2019 38256-Grdy Destruction, -14 10/17/2018 57630-Qrca Destruction, 05-0608/14/2018 05567-Ulhe Destruction, 05-0606/13/2018 51174-Kmms Destruction, 05-0610/25/2017 26245-Jonc Destruction, 05-0601/07/2018 40132-Cwhj Destruction, 05-0608/30/2023 48520-Qxpw Destruction, 05-0606/27/2023 04708-Aqoc Destruction, 05-0604/11/2023 43249-Txoj Destruction, 05-0601/25/2023 59556-Kgap Destruction, 05-0611/16/2022 10845-Bhyf Destruction, 05-0608/24/2022 13231-Lkdm Destruction, 05-0606/15/2022 44721-Tpgl Destruction, 05-0604/05/2022 96901-Xswd Destruction, 05-0601/19/2022 97545-Bswe Destruction, 05-0606/16/2021 56336-Vits Destruction, 05-0603/20/2018 27124-Psjg Destruction, 05-0611/10/2021 99186-Sbhp Destruction, 05-0608/29/2021 09393-Udgj Destruction, 05-0602/17/2021 27943-Atks Destruction, 05-0612/02/2020 68754-Okpw Destruction, 05-0609/29/2020 97173-Jrme Destruction, 05-0607/15/2020 30076-Rgmp Destruction, 05-0601/24/2024 24077-Dnge Destruction, 05-0611/08/2023 33085-Ryzpevfi Plate 11/08/2023 11458-Hlzqtcnd Plate 09/29/2020 37704-Sywgjglx Plate 12/02/2020 62761-Bfhnguhv Plate 02/17/2021 77287-Kexmbdnk Plate 06/16/2021 14218-Depjcrmt Plate 08/29/2021 25182-Lsnikctq Plate 11/10/2021 61192-Yhuhxqff Plate 01/19/2022 82935-Prinnpgs Plate 04/05/2022 56881-Clurfxpa Plate 06/15/2022 11733-Jxhqafhd Plate 08/24/2022 46226-Gvmwgiig Plate 11/16/2022 57767-Xsrknimu Plate 01/25/2023 40343-Bpiqkpkm Plate 04/11/2023 58296-Jcvnenag Plate 06/27/2023 43677-Xnnociqu Plate 08/30/2023 69595-Rlvuvfwu Plate 12/18/2019 46988-Icgpnkzv Plate 05/06/2020 77454-Tlhypxwa Plate 07/15/2020 34712-Knnrbpjx Plate 11/01/2016 35882-Jgbpfyoz Plate Each Additional 12/2023 52890-Pghdnhva Plate Each Additional 09/2023 91152-Hdsfkjan Plate Each Additional 72244-Fijzmlgk Plate Each Additional 08/2022 69707-Oysfbvyd Plate Each Additional 29772-Xkpyjhvr Plate Each Additional 07/2022 94516-Ivdnriwc Plate Each Additional 10991-Fmphbebw Plate Each Additional 59243-Vcevqjop Plate Each Additional 33606-Ojsnrbsi Plate Each Additional 14644-GDQV SKIN LESIONS, OVER 4 11/08/19 24 07599-KWPF SKIN LESIONS, OVER 4 01/24/20 24 51123-AFUY SKIN LESIONS, OVER 4 05/05/19 40431-PXYE SKIN LESIONS, OVER 4 08/01/19 18792-NIGX SKIN LESIONS, OVER 4 06/16/19 90704-TAUI SKIN LESIONS, OVER 4 01/20/20 38962-TNBM SKIN LESIONS, OVER 4 11/11/19 43781-KWTB SKIN LESIONS, OVER 4 08/30/19 61953-ZNSO SKIN LESIONS, OVER 4 02/18/20 21 18260-SYTC SKIN LESIONS, OVER 4 12/03/19 14445-ICCG SKIN LESIONS, OVER 4 09/30/19 21 24094-XOEP SKIN LESIONS, OVER 4 07/16/19 34134-ZRJJ SKIN LESIONS, OVER 4 04/05/20 24578-RYYP SKIN LESIONS, OVER 4 06/15/19 23 38932-ZDAG SKIN LESIONS, OVER 4 08/25/19 13725-IRKY SKIN LESIONS, OVER 4 11/17/19 23 70317-RVTN SKIN LESIONS, OVER 4 01/26/20 94831-WKHR SKIN LESIONS, OVER 4 12/20/20 23 43085-NIQT SKIN LESIONS, OVER 4 06/27/19 24 51739-FBED SKIN LESIONS, OVER 4 08/30/19 24 89761-SBAI SKIN LESIONS, OVER 4 03/21/20 17 72406-TNSE SKIN LESIONS, OVER 4 01/04/20 17 54826-CGKX SKIN LESIONS, OVER 4 10/26/19 18 76160-VOBX SKIN LESIONS, OVER 4 08/07/19 18 48653-NYJY SKIN LESIONS, OVER 4 05/30/19 18 66285-TAOD SKIN LESIONS, OVER 4 11/02/19 17 67753-VEJP SKIN LESIONS, OVER 4 06/14/19 17 65710-LEOR SKIN LESIONS, OVER 4 04/05/20 16 66703-LTDD SKIN LESIONS, OVER 4 08/24/19 17 15603-DTFZ SKIN LESIONS, OVER 4 01/24/20 16 98868-VZUA SKIN LESIONS, OVER 4 11/15/19 16 09970-JEKE SKIN LESIONS, OVER 4 08/16/19 16 73053-SQBZ SKIN LESIONS, OVER 4 05/06/19 21 89992-FCGK SKIN LESIONS, OVER 4 12/18/19 20 45199-UAEB SKIN LESIONS, OVER 4 08/27/19 20 85799-TLJG SKIN LESIONS, OVER 4 04/03/20 19 50197-SRNI SKIN LESIONS, OVER 4 06/16/19 20 66524-EJSX SKIN LESIONS, OVER 4 01/08/20 18 04202-HCIT SKIN LESIONS, OVER 4 06/13/19 19 59777-SSWN SKIN LESIONS, OVER 4 08/15/19 19 44336-RGHU SKIN LESIONS, OVER 4 03/20/20 18 68790-GRVR SKIN LESIONS, OVER 4 10/18/19 19 71999-OWTH SKIN LESIONS, OVER 4 01/17/20 19 I2484-CQZEZGPL DYSTROPHIC NAILS ANY # P9330-RCZRWROL DYSTROPHIC NAILS ANY # E3163-YTAXFCAU DYSTROPHIC NAILS ANY # Z4832-HJWZZUUO DYSTROPHIC NAILS ANY # D3384-SUYMXXOR DYSTROPHIC NAILS ANY # U5794-OKNWKUQD DYSTROPHIC NAILS ANY # X6915-YTHNMPQO DYSTROPHIC NAILS ANY # D7469-PPATHWBZ DYSTROPHIC NAILS ANY # Next Appt Details Provider Name:Boby Chapman , 10/30/2024 02:45:00 PM, [address] [facility], [address], [place], [address], Insurance Providers Payer Name Payer Address Payer Phone Subscriber Number Group Number Insured Name Patient Relationship to Insured Coverage Start Date Coverage End Date [facility] [employer] Claims [address] [place] [id number] [phone] [id number] Jacinda Benavidez Self - patient is the insured Medical (General) History Medical History History ICD Code Anemia Anxiety Arthritis Back,Hip,and Knee pain Cataracts High blood pressure Liver disease Reflux Thyroid disorder Surgical History Surgery Date(Month/Year) gall bladder 12/11/2014 Unspecified Right Hand SX 03/13/17
--- OUTSIDE RECORDS SUMMARY | 2024-08-29 10:45 | XMS_ITS ---
Author Organization [facility] Address [address] [facility] [place] [address] Care Team Providers Care Human Resources Safety Manager Name Role Phone Isaiah DURAN, [place] Primary Care Provider Boby Laguerre Unavailable [phone] Allergies Allergen (clinical drug ingredient) Drug/Non Drug [...] Ordered Date Performed Result Body Sit e 94088-OFHQGYV NAIL, 6 OR MORE 07/31/2024 N/A 76817-DPDA SKIN LESIONS, OVER 4 07/31/2024 N/A Encounters Encounter Location Date Provider Diagnosis [facility] [address] [address] 07/31/2024 Boby Chapman Atherosclerosis of [place] artery of both lower extremities, with unspecified presence of clinical manifestation I70.203 ; Tinea unguium B35.1 ; Pain in right toe(s) M79.674 ; Pain in left toe(s) M79.675 ; Other hammer toe(s) (acquired), right foot M20.41 and Other hammer toe(s) (acquired), left foot M20.42 Assessments Encounter Date Diagnosis (ICD Code) Assessment Notes Treatment Notes Treatment Clinical Notes Section Notes 07/31/2024 Atherosclerosis of [place] artery of both lower extremities, with unspecified [...] Treatment Pending Test Test Name Order Date 50185-DSACSDQ NAIL, 6 OR MORE 07/31/2024 75586-BGGS SKIN LESIONS, OVER 4 08/01/19 25 Next Appt Details Follow Up: 2 Months, Reason: Provider Name:Boby Chapman , 10/30/2024 02:45:00 PM, [address] , [address], [place], [address], Procedure Notes * Category Sub-Category Detail Notes [...] use of a nail nipper and/or dremel-type finish grinder, to a more viable healthy nail [...] instrumentation by the physician of record - 95579, Q8 Progress Notes * Tommie BLANCASOB:[birth year] (78 yo F)Acc No.[id number]:07/31/2024 Progress Note Patient:?Jacinda BLANCAS Provider:?Boby Chapman DPM :1945???Age:78 Y???Sex:Female D ate:07/31/2024 Address:[address] [place], [place] [address] Pcp:Truong Colon MD Subjective: * Chief Complaints: [...] Assessment: 1.?Tinea unguium - B35.1???2 .?Atherosclerosis of [place] artery of both lower extremities, with unspecified presence of clinical manifestation - I70.203 (Primary)???Specify :Q8???3.?Pain in right toe(s) - M79.674???4.?Pain in left toe(s) - M79.675???5.?Other hammer toe(s) (acquired), right foot - M20.41???Specify :Chronic problem, Stable (1=3,2=4), Response to treatment - Improvement???6.?Other hammer toe(s) (acquired), left foot - M20.42???Specify :Chronic problem, Stable (1=3,2=4), Response to treatment - Improvement??? Plan: * Treatment: 2.?Tinea unguium?Procedure: 68607-ISSANCS NAIL, 6 OR MORE * Procedures:?Debride Nail [...] use of a nail nipper and/or dremel-type finish grinder, to a more viable healthy nail [...] to maintain effectiveness in symptomatic relief - 10235.?Keratoma Treatment:?Parring or Cutting of Benign Hyperkeratotic Lesion(s)?(-57) [...] instrumentation by the physician of record - 05787, Q8.? * Procedure Codes:?68604 DEBRI DE NAIL, 6 OR MORE, Modifiers: XS 88144 TRIM SKIN LESIONS, OVER 4, Modifiers: XS [...]
--- OUTSIDE RECORDS SUMMARY | 2024-08-29 10:45 | XMS_ITS | Encounter Summary ---
Author Organization [facility] Address [address] [place] [address] Phone Care Team Providers Care Enzyme Chemist Name Role Phone Truong Colon MD Primary Care Provider [phone]- [phone] Encounter Details Date Type Department Care Team (Late Contact Info) Description 04/14/2022 Documentation Only [facility] [address] [place] [address] Eligio Meza MD [address] [place] [address] [place] [address] Social History Tobacco Use Types [...] Visit [facility] [address] [place] [address] Romero Jimenez MD [address] [place] [address] documented as of this encounter Visit Diagnoses Not on filedocumented in this encounter Care Teams Enzyme Chemist Relationship Specialty Start Date End Date Truong Colon MD [address] [place] [address] PCP - General Internal Medicine 03/06/23 documented as of this encounter
--- OUTSIDE RECORDS SUMMARY | 2024-08-29 10:45 | XMS_ITS | Encounter Summary ---
Author Organization [facility] Address [address] [place] [address] Phone Care Team Providers Care Sawyer Cork Slabs Name Role Phone Truong Colon MD Primary Care Provider +1- [phone] Encounter Details Date Type Department Care Team (Late Contact Info) Description 05/27/2024 Documentation Only [facility] [address] [place] [address] Kylie Gabriel [address] [place] [address] Social History Tobacco Use Types [...] Visit [facility] [address] [place] [address] Romero Jimenez MD [address] [place] [address] [place] [address] documented as of this encounter Visit Diagnoses Not on filedocumented in this encounter Care Teams Sawyer Cork Slabs Relationship Specialty Start Date End Date Truong Colon MD [address] [place] [address] PCP - General Internal Medicine 03/06/23 documented as of this encounter
--- OUTSIDE RECORDS SUMMARY | 2024-08-29 10:45 | XMS_ITS | Encounter Summary ---
Author Organization [facility] Address [address] [place] [address] Phone Care Team Providers Care Bank Operations Officer Name Role Phone Truong Colon MD Primary Care Provider [phone]- [phone] Encounter Details Date Type Department Care Team (Late Contact Info) Description 08/12/2024 Documentation Only [facility] [address] [place] [address] [place] [address] [place] [address] Social History Tobacco Use Types Packs/Day [...] [facility] [address] [place] [address] Romero Jimenez MD [address] [place] [address] [place] [address] documented as of this encounter Visit Diagnoses Not on filedocumented in this encounter Care Teams Bank Operations Officer Relationship Specialty Start Date End Date Truong Colon MD [address] [place] [address] PCP - General Internal Medicine 03/06/23 documented as of this encounter
--- OUTSIDE RECORDS SUMMARY | 2024-08-29 10:45 | XMS_ITS | Encounter Summary ---
Author Organization [facility] Address [address] [place] [address] Phone Care Team Providers Care Color Paste Mixing Supervisor Name Role Phone Truong Colon MD Primary Care Provider +1- [phone] Encounter Details Date Type Department Care Team (Late Contact Info) Description 06/03/2024 Documentation Only [facility] [address] [place] [address] Kylie Gabriel [address] [place] [address] Social History Tobacco Use Types [...] Visit [facility] [address] [place] [address] Romero Jimenez MD [address] [place] [address] [place] [address] documented as of this encounter Visit Diagnoses Not on filedocumented in this encounter Care Teams Color Paste Mixing Supervisor Relationship Specialty Start Date End Date Truong Colon MD [address] [place] [address] PCP - General Internal Medicine 03/06/23 documented as of this encounter
--- OUTSIDE RECORDS SUMMARY | 2024-08-29 10:45 | XMS_ITS | Encounter Summary ---
Author Organization [facility] Address [address] [place] [address] Phone Care Team Providers Care State Trooper Name Role Phone Truong Colon MD Primary Care Provider +1- [phone] Encounter Details Date Type Department Care Team (Late Contact Info) Description 10/26/2023 Documentation Only [facility] [address] [place] [address] Kylie Gabriel [address] [place], [place] [...] [facility] [address] [place] [address] Romero Jimenez MD [address] [place] [address] [place] [address] documented as of this encounter Visit Diagnoses Not on filedocumented in this encounter Care Teams State Trooper Relationship Specialty Start Date End Date Truong Colon MD [address] [place] [address] PCP - General Internal Medicine 03/06/23 documented as of this encounter
--- OUTSIDE RECORDS SUMMARY | 2024-08-29 10:45 | XMS_ITS | Encounter Summary ---
Author Organization [facility] Address [address] [place] [address] Phone Care Team Providers Care Microfilming Document Preparer Name Role Phone Truong Colon MD Primary Care Provider +1- [phone] Encounter Details Date Type Department Care Team (Late Contact Info) Description 05/16/2024 Orders Only [facility] [address] [place] [address] Kylie Gabriel [address] [place] [address] Anemia in chronic kidney disease; [...] Visit [facility] [address] [address] Romero Jimenez MD [address] [facility] [place] [address] documented as of this encounter Visit Diagnoses Diagnosis Anemia in chronic kidney disease Stage 3b chronic kidney disease (HCC) Iron deficiency anemia, not otherwise specified documented in this encounter Care Teams Microfilming Document Preparer Relationship Specialty Start Date End Date Truong Colon MD [address] [place] [address] PCP - General Internal Medicine 03/06/23 documented as of this encounter
--- OUTSIDE RECORDS SUMMARY | 2024-08-29 10:45 | XMS_ITS | Clinical Summary ---
Author Organization [employer] [facility] Address [address] [place] [address] Care Team Providers Care Professor Of Political Science Name Role Phone Truong Colon MD Primary Care Provider +1- [phone] Allergies Active Allergy Reactions Criticality Noted Date [...] age to complete this topic Care Teams Professor Of Political Science Relationship Specialty Start Date End Date Truong Colon MD [address] [facility] [place] [id number] PCP - General Internal Medicine 05/19/22
--- OUTSIDE RECORDS SUMMARY | 2024-08-29 10:45 | XMS_ITS | Encounter Summary ---
Author Organization [facility] Address [address] [place] [address] Phone Care Team Providers Care Nipple Machine Operator Name Role Phone Truong Colon MD Primary Care Provider +1- [phone] Encounter Details Date Type Department Care Team (Late Contact Info) Description 12/21/2021 Documentation Only [facility] [address] [place] [address] Dimitris Suarez PA Social History [...] Type Department Care Team ([facility] Contact Info) Description 12/02/2024 1:40 PM EDT Office Visit [facility] [address] [place] [address] Romero Jimenez MD [address] [place] [address] [place] [address] documented as of this encounter Visit Diagnoses Not on filedocumented in this encounter Care Teams Nipple Machine Operator Relationship Specialty Start Date End Date Truong Colon MD [address] [place], [place] [id number] PCP - General Internal Medicine 03/06/23 documented as of this encounter
--- OUTSIDE RECORDS SUMMARY | 2024-08-29 10:46 | XMS_ITS | Encounter Summary ---
Author Organization [facility] Address [address] [place] [address] Phone Care Team Providers Care Biologics Specialist Name Role Phone Truong Colon MD Primary Care Provider +1- [phone] Encounter Details Date Type Department Care Team (Late Contact Info) Description 06/13/2024 Orders Only [facility] [address] [place] [address] Kylie Gabriel [address] [place] [address] Anemia in chronic kidney disease; [...] [facility] [address] [place] [address] Romero Jimenez MD [address] [facility] [place] [address] documented as of this encounter Visit Diagnoses Diagnosis Anemia in chronic kidney disease Stage 3b chronic kidney disease (HCC) Iron deficiency anemia, not otherwise specified documented in this encounter Care Teams Biologics Specialist Relationship Specialty Start Date End Date Truong Colon MD [address] [place] [address] PCP - General Internal Medicine 03/06/23 documented as of this encounter
--- OUTSIDE RECORDS SUMMARY | 2024-08-29 10:46 | XMS_ITS | Encounter Summary ---
Author Organization [facility] Address [address] [place] [address] Phone Care Team Providers Care Appraisal Coordinator Name Role Phone Truong Colon MD Primary Care Provider +1- [phone] Encounter Details Date Type Department Care Team (Late Contact Info) Description 08/08/2024 Orders Only [facility] [address] [place] [address] Kylie Gabriel [address] [place] [address] Anemia in chronic kidney disease; [...] Visit [facility] [address] [place] [address] Romero Jimenez MD [address] [facility] [place] [address] documented as of this encounter Visit Diagnoses Diagnosis Anemia in chronic kidney disease Stage 3b chronic kidney disease (HCC) Iron deficiency anemia, not otherwise specified documented in this encounter Care Teams Appraisal Coordinator Relationship Specialty Start Date End Date Truong Colon MD [address] [place] [address] PCP - General Internal Medicine 03/06/23 documented as of this encounter
--- OUTSIDE RECORDS SUMMARY | 2024-08-29 10:46 | XMS_ITS | Encounter Summary ---
Author Organization [facility] Address [address] [place] [address] Phone Care Team Providers Care Senior Clinical Data Manager Name Role Phone Truong Colon MD Primary Care Provider +1- [phone] Encounter Details Date Type Department Care Team (Late Contact Info) Description 10/26/2023 Documentation Only [facility] [address] [place] [address] Kylie Gabriel [address] [place] [address] Social History Tobacco Use Types [...] [facility] [address] [place] [address] Romero Jimenez MD [address] [place] [address] [place] [address] documented as of this encounter Visit Diagnoses Not on filedocumented in this encounter Care Teams Senior Clinical Data Manager Relationship Specialty Start Date End Date Truong Colon MD [address] [place] [address] PCP - General Internal Medicine 03/06/23 documented as of this encounter
--- OUTSIDE RECORDS SUMMARY | 2024-08-29 10:46 | XMS_ITS | Encounter Summary ---
Author Organization [facility] Address [address] [place] [address] Phone Care Team Providers Care Roving Carrier Name Role Phone Truong Colon MD Primary Care Provider +1- [phone] Encounter Details Date Type Department Care Team (Late Contact Info) Description 08/04/2024 Documentation Only [facility] [address] [place] [address] Kylie Gabriel [address] [place] [address] Social History Tobacco Use Types [...] Visit [facility] [address] [place] [address] Romero Jimenez MD [address] [place] [address] [place] [address] documented as of this encounter Visit Diagnoses Not on filedocumented in this encounter Care Teams Roving Carrier Relationship Specialty Start Date End Date Truong Colon MD [address] [place] [address] PCP - General Internal Medicine 03/06/23 documented as of this encounter
--- OUTSIDE RECORDS SUMMARY | 2024-08-29 10:46 | XMS_ITS | Encounter Summary ---
Author Organization [facility] Address [address] [place] [address] Phone Care Team Providers Care Telecommunications Administrator Name Role Phone Truong Colon MD Primary Care Provider +1- [phone] Encounter Details Date Type Department Care Team (Late Contact Info) Description 01/14/2024 Documentation Only [facility] [address] [place] [address] [place] [address] [place] [address] Social History Tobacco Use Types Packs/Day [...] Visit [facility] [address] [place] [address] Romero Jimenez MD [address] [facility] [place] [address] documented as of this encounter Visit Diagnoses Not on filedocumented in this encounter Care Teams Telecommunications Administrator Relationship Specialty Start Date End Date Truong Colon MD [address] [place] [address] PCP - General Internal Medicine 03/06/23 documented as of this encounter
--- OUTSIDE RECORDS SUMMARY | 2024-08-29 10:46 | XMS_ITS | Clinical Summary ---
Author Organization [facility], Address [address] [place] [address] [place] [address] Phone Care Team Providers Care Planning Supervisor Name Role Phone Truong Colon MD Primary Care Provider +1- [phone] Allergies Active Allergy Reactions Criticality Noted Date [...] Visit [facility], [address] [facility] [facility] [place] [address] Romero Jimenez MD Stage 3b chronic kidney disease (HCC) (Primary Dx) 08/12/2024 Documentation Only [facility] [address] [facility] [place] [address] Sabrina Membreno [place] 08/11/2024 Office Communication [facility] [address] [facility] [facility] [place] [address] Deisi Wakefield, RN 08/08/2024 Orders Only [facility] [address] [place] [address] Kylie Gabriel Anemia in chronic kidney disease; Stage 3b chronic kidney disease (HCC); Iron deficiency anemia, not otherwise specified 08/06/2024 Documentation Only [facility] [address] [facility] [place] [address] Deisi Wakefield, RN labs overdue 08/04/2024 Documentation Only [facility] [address] [place] [address] Kylie Gabriel 07/31/2024 Documentation Only [facility] [address] [place] [address] Kylie Gabriel 07/31/2024 Office Communication [facility] [address] [facility] [place] [address] Deisi Wakefield, RN 07/16/2024 3:45 PM EDT Office Visit [facility] [address] [facility] [address] [place] [address] Romero Jimenez MD Stage 3b chronic kidney disease (HCC) (Primary Dx) 07/11/2024 Orders Only [facility] [address] [facility] [place] [address] Kylie Gabriel Anemia in chronic kidney disease; Stage 3b chronic kidney disease (HCC); Iron deficiency anemia, not otherwise specified 07/02/2024 Documentation Only [facility] [address] [place] [address] Sabrina Membreno MA 06/13/2024 Orders Only [facility] [address] [place] [address] Kylie Gabriel Anemia in chronic kidney disease; Stage 3b chronic kidney disease (HCC); Iron deficiency anemia, not otherwise specified 06/05/2024 Telephone [facility] [address] [facility] [facility] [facility] [place] [address] Deisi Wakefield, RN reminder for labs 06/03/2024 Documentation Only [facility] [address] [place] [address] Kylie Gabriel from Last 3 Months Immunizations [...] Visit [facility], [address] [place] [address] Romero Jimenez MD [address] [facility] [place] [address] Health Maintenance Due Date Last Done Comments [...] Phone Billing Address Personal/Family Self [address] [facility] One [employer] Dual SNP ([id number]) Care Teams Planning Supervisor Relationship Specialty Start Date End Date Truong Colon MD [address] [place] [address] PCP - General Internal Medicine 03/06/23
--- OUTSIDE RECORDS SUMMARY | 2024-08-29 10:46 | XMS_ITS | Encounter Summary ---
Author Organization [facility] Address [address] [place] [address] Phone Care Team Providers Care Lap Runner Name Role Phone Truong Colon MD Primary Care Provider +1- [phone] Encounter Details Date Type Department Care Team (Late Contact Info) Description 07/11/2024 Orders Only [facility] [address] [place] [address] Kylie Gabriel [address] [place] [address] Anemia in chronic kidney disease; [...] Visit [facility] [address] [place] [address] Romero Jimenez MD [address] [facility] [place] [address] documented as of this encounter Visit Diagnoses Diagnosis Anemia in chronic kidney disease Stage 3b chronic kidney disease (HCC) Iron deficiency anemia, not otherwise specified documented in this encounter Care Teams Lap Runner Relationship Specialty Start Date End Date Truong Colon MD [address] [place] [address] PCP - General Internal Medicine 03/06/23 documented as of this encounter
--- OUTSIDE RECORDS SUMMARY | 2024-08-29 10:46 | XMS_ITS | Clinical Summary ---
Author Organization [facility] Address [address] [place] [address] Phone Care Team Providers Care Photogrammetric Stereo Compiler Name Role Phone Truong Colon MD Primary Care Provider +1 [phone] Allergies Active Allergy Reactions Criticality Noted Date [...] left breast in female, estrogen receptor positive ([facility] V24, [facility] V28) 07/03/2023 Iron deficiency anemia 05/18/2022 Acquired hypothyroidism 03/28/2017 Gastroesophageal reflux disease without esophagi tis 03/28/2017 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 Encounters Date Type Department Care Team Description 07/17/2024 10:53 AM EDT - 07/17/2024 11:59 PM EDT Hospital [facility] [address] [id number] Encounter for screening mammogram for malignant neoplasm of breast Discharge Disposition: Home or Self Care 06/09/2024 Telephone [facility] Hematology Oncology [address] [place] [phone] Jillian-Jennifer Brooks MD from Last 3 Months Surgical History Surgery Date Site/Laterality Comments LUMBAR DISC SURGERY PROCEDURE:LUMBAR DISC SURGERY Medical History Medical History Date Comments Malignant neoplasm of upper- outer quadrant of left female breast ([facility] V24, [facility] V28) DX:Malignant neoplasm of upp [...] Description 10/02/2024 11:00 AM EDT Office Visit [facility] Hematology Oncology [address] [place] [address] Jillian-Jennifer Gonazlez MD [address] [place] [address] Health Maintenance Due Date Last [...] year. Mammo Location: [facility], [address] [place] [address], [address], . -------- FINAL REPORT -------- Dictated By: Lilly Ayala Dictated Date: 07/22/2024 16:10 ET Assigned Physician: Lilly Ayala Reviewed and Electronically Signed By: Lilly Ayala Signed Date: 07/22/2024 16:14 ET Workstation ID: [id number] Transcribed By: Self Edit Transcribed Date: 07/22/2024 [...] year. Mammo Location: [facility], [address] [place] [address], [address], . -------- FINAL REPORT -------- Dictated By: Lilly Ayala Dictated Date: 07/22/2024 16:10 ET Assigned Physician: Lilly Ayala Reviewed and Electronically Signed By: Lilly Ayala Signed Date: 07/22/2024 16:14 ET Workstation ID: [id number] Transcribed By: Self Edit Transcribed Date: 07/22/2024 16:10 ET Jennifer Ca MD IMG BI PROCEDURES F inal Result * DXA BONE DENSITY STUDY 1+ LYLA MANN SKEL (10/07/2021 10:23 AM EDT) Anatomical Region Laterality Modality Bone Densitometr y 05/10/2021 11:5 1 AM EST Narrative 10/07/2021 4:32 PM EDT Clinical history: other osteoporosis Scans of the lumbar spine and hips were performed on a Shout/Atreaon fan beam bone densitometer. ? Bone mineral [...] spine and hips were performed on a Shout/Atreaonfan beam bone densitometer. Bone mineral density measurements [...] Group ID:[id number] Type:Not on file Address: [address] [place] [address] Care Teams Photogrammetric Stereo Compiler Relationship Specialty Start Date End Date Truong Colon MD [address] [place] [address] [address] [place], [place] PCP - General 05/19/22
--- OUTSIDE RECORDS SUMMARY | 2024-08-29 10:46 | XMS_ITS | Encounter Summary ---
Author Organization [facility] Address [address] [place] [address] Phone Care Team Providers Care Flour Blender Helper Name Role Phone Truong Colon MD Primary Care Provider +1- [phone] Encounter Details Date Type Department Care Team (Late Contact Info) Description 04/10/2024 Documentation Only [facility] [address] [place] [address] Kylie Gabriel [address] [place] [address] Social History Tobacco Use Types [...] [facility] [address] [place] [address] Romero Jimenez MD [address] [place] [address] [place] [address] documented as of this encounter Visit Diagnoses Not on filedocumented in this encounter Care Teams Flour Blender Helper Relationship Specialty Start Date End Date Truong Colon MD [address] [place] [address] PCP - General Internal Medicine 03/06/23 documented as of this encounter
--- OUTSIDE RECORDS SUMMARY | 2024-08-29 10:46 | XMS_ITS | Encounter Summary ---
Author Organization [facility] Address [address] [place] [address] Phone Care Team Providers Care Passenger Attendant Name Role Phone Truong Colon MD Primary Care Provider +1- [phone] Encounter Details Date Type Department Care Team (Late Contact Info) Description 04/10/2024 Documentation Only [facility] [address] [place] [address] Kylie Gabriel [address] [place] [address] Social History Tobacco Use Types [...] [facility] [address] [place] [address] Romero Jimenez MD [address] [place] [address] [place] [address] documented as of this encounter Visit Diagnoses Not on filedocumented in this encounter Care Teams Passenger Attendant Relationship Specialty Start Date End Date Truong Colon MD [address] [place] [address] PCP - General Internal Medicine 03/06/23 documented as of this encounter
--- OUTSIDE RECORDS SUMMARY | 2024-08-29 10:46 | XMS_ITS | Encounter Summary ---
Author Organization [facility] Address [address] [place] [address] Phone Care Team Providers Care Band Master Name Role Phone Truong Colon MD Primary Care Provider +1- [phone] Encounter Details Date Type Department Care Team (Late Contact Info) Description 01/31/2024 Documentation Only [facility] [address] [place] [address] Kylie Gabriel [address] [place] [address] Social History Tobacco Use Types [...] [facility] [address] [place] [address] Romero Jimenez MD [address] [place] [address] [place] [address] documented as of this encounter Visit Diagnoses Not on filedocumented in this encounter Care Teams Band Master Relationship Specialty Start Date End Date Truong Colon MD [address] [place] [address] PCP - General Internal Medicine 03/06/23 documented as of this encounter
--- OUTSIDE RECORDS SUMMARY | 2024-08-29 10:46 | XMS_ITS | Encounter Summary ---
Author Organization [facility] Address [address] [place] [address] Phone Care Team Providers Care President Ceo & Founder Name Role Phone Truong Colon MD Primary Care Provider +1- [phone] Encounter Details Date Type Department Care Team (Late Contact Info) Description 07/31/2024 Documentation Only [facility] [address] [place] [address] Kylie Gabriel [address] [place] [address] Social History Tobacco Use Types [...] [facility] [address] [place] [address] Romero Jimenez MD [address] [place] [address] [place] [address] documented as of this encounter Visit Diagnoses Not on filedocumented in this encounter Care Teams President Ceo & Founder Relationship Specialty Start Date End Date Truong Colon MD [address] [place] [address] PCP - General Internal Medicine 03/06/23 documented as of this encounter
--- OUTSIDE RECORDS SUMMARY | 2024-08-29 10:46 | XMS_ITS | Encounter Summary ---
Author Organization [facility] Address [address] [place] [address] Phone Care Team Providers Care Grinder Mill Operator Name Role Phone Truong Colon MD Primary Care Provider +1- [phone] Encounter Details Date Type Department Care Team (Late Contact Info) Description 04/04/2024 Documentation Only [facility] [address] [place] [address] Jasmin Dumont [address] [place] [address] Social History Tobacco [...] [facility] [address] [place] [address] Romero Jimenez MD [address] [place] [address] [place] [address] documented as of this encounter Visit Diagnoses Not on filedocumented in this encounter Care Teams Grinder Mill Operator Relationship Specialty Start Date End Date Truong Colon MD [address] [place] [address] PCP - General Internal Medicine 03/06/23 documented as of this encounter
--- OUTSIDE RECORDS SUMMARY | 2024-08-29 10:46 | XMS_ITS | Encounter Summary ---
Author Organization [facility], Address [address] [place] [address] Phone Care Team Providers Care High Pressure Kettle Operator Name Role Phone Truong Colon MD Primary Care Provider +1- [phone] Encounter Details Date Type Department Care Team (Late Contact Info) Description 01/23/2024 Documentation Only [facility], - [address] [place] [address] Jasmin Dumont [address] [place] [address] Social History Tobacco Use Types Packs/Day [...] Visit [facility], [address] [place] [address] Romero Jimenez MD [address] [place] [address] documented as of this encounter Visit Diagnoses Not on filedocumented in this encounter Care Teams High Pressure Kettle Operator Relationship Specialty Start Date End Date Truong Colon MD [address] [place] [address] PCP - General Internal Medicine 03/06/23 documented as of this encounter
--- OUTSIDE RECORDS SUMMARY | 2024-08-29 10:46 | XMS_ITS | Encounter Summary ---
Author Organization [facility] Address [address] [place] [address] Phone Care Team Providers Care Powertrain Engineer Name Role Phone Truong Colon MD Primary Care Provider +1- [phone] Encounter Details Date Type Department Care Team (Late Contact Info) Description 07/02/2024 Documentation Only [facility] [address] [place] [address] [place] [address] [place] [address] Social History Tobacco Use Types Packs/Day [...] [facility] [address] [place] [address] Romero Jimenez MD [address] [place] [address] [place] [address] documented as of this encounter Visit Diagnoses Not on filedocumented in this encounter Care Teams Powertrain Engineer Relationship Specialty Start Date End Date Truong Colon MD [address] [place] [address] PCP - General Internal Medicine 03/06/23 documented as of this encounter
--- OUTSIDE RECORDS SUMMARY | 2024-08-29 10:46 | XMS_ITS | Encounter Summary ---
Author Organization [facility] Address [address] [place] [address] Phone Care Team Providers Care Online Communications Specialist Name Role Phone Truong Colon MD Primary Care Provider +1- [phone] Encounter Details Date Type Department Care Team (Late Contact Info) Description 11/09/2021 Documentation Only [facility] [address] [place] [address] Dimitris Suarez PA Social History [...] Upcoming Encounters Date Type Department Care Team ([facility] Contact Info) Description 12/02/2024 1:40 PM EDT Office Visit [facility] [address] [place] [address] Romero Jimenez MD [address] [place] [address] [place] [address] documented as of this encounter Visit Diagnoses Not on filedocumented in this encounter Care Teams Online Communications Specialist Relationship Specialty Start Date End Date Truong Colon MD [address] [place], [place] [id number] PCP - General Internal Medicine 03/06/23 documented as of this encounter
--- OUTSIDE RECORDS SUMMARY | 2024-08-29 10:46 | XMS_ITS | Encounter Summary ---
Author Organization [facility] Address [address] [place] [address] Phone Care Team Providers Care Obstetrics Gyn Name Role Phone Truong Colon MD Primary Care Provider +1- [phone] Encounter Details Date Type Department Care Team (Late Contact Info) Description 04/29/2024 Documentation Only [facility] [address] [place] [address] Britt Sol [address] [place] [address] Social History Tobacco Use Types [...] [facility] [address] [place] [address] Romero Jimenez MD [address] [place] [address] [place] [address] documented as of this encounter Visit Diagnoses Not on filedocumented in this encounter Care Teams Obstetrics Gyn Relationship Specialty Start Date End Date Truong Colon MD [address] [place] [address] PCP - General Internal Medicine 03/06/23 documented as of this encounter
--- OUTSIDE RECORDS SUMMARY | 2024-08-29 10:46 | XMS_ITS | Encounter Summary ---
Author Organization [facility] Address [address] [place] [address] Phone Care Team Providers Care Emergency Service Worker Name Role Phone Truong Colon MD Primary Care Provider +1- [phone] Encounter Details Date Type Department Care Team (Late Contact Info) Description 04/24/2024 Documentation Only [facility] [address] [place] [address] Kylie Gabriel [address] [place] [address] Social History Tobacco Use Types [...] [facility] [address] [place] [address] Romero Jimenez MD [address] [place] [address] [place] [address] documented as of this encounter Visit Diagnoses Not on filedocumented in this encounter Care Teams Emergency Service Worker Relationship Specialty Start Date End Date Truong Colon MD [address] [place] [address] PCP - General Internal Medicine 03/06/23 documented as of this encounter
--- OUTSIDE RECORDS SUMMARY | 2024-08-29 10:46 | XMS_ITS ---
Author Organization [facility] [place], Address [address] [place] [address] [place] [address] Phone Care Team Providers Care Jewelry Internship Name Role Phone Truong Colon MD Primary Care Provider +1- [phone] Active Problems Problem Noted Date Diagnosed Date [...]
== END 2024-08-29 11:29 | disposition home or self-care (01) ==
LOC: HO.HNS 10:18
PROVIDERS: PCP Internal Medicine; Referring Provider Internal Medicine; Visit Provider Physician Assistant
DX: M54.50 Low back pain, unspecified (principal); M54.16 Radiculopathy, lumbar region
CPT/HCPCS: 99204

== ENCOUNTER → 2024-08-29 10:52 | Outpatient (BNV) | payer OTHER, SELFPAY | PROVIDERS: PCP Internal Medicine; Referring Provider Internal Medicine; Visit Provider Radiology Diagnostic Radiology | DX: M51.360 Other intervertebral disc degeneration, lumbar region with discogenic back pain only (principal) | CPT/HCPCS: 72110 ==

== ENCOUNTER 2024-10-02 06:28 | Day surgery (SDC) | payer OTHER, SELFPAY ==
--- OUTSIDE RECORDS SUMMARY | 2024-09-02 06:41 | XMS_ITS | Encounter Summary ---
Author Organization [facility] Address [address] [place] [address] Phone Care Team Providers Care Information Writer Name Role Phone Truong Colon MD Primary Care Provider +1- [phone] Encounter Details Date Type Department Care Team (Late Contact Info) Description 05/16/2024 Orders Only [facility] [address] [place] [address] Kylie Gabriel [address] [place] [address] Anemia in chronic kidney disease; [...] Of [facility] [address] [place] [address] Romero Jimenez MD [address] [place] [address] documented as of this encounter Visit Diagnoses Diagnosis Anemia in chronic kidney disease Stage 3b chronic kidney disease (HCC) Iron deficiency anemia, not otherwise specified documented in this encounter Care Teams Information Writer Relationship Specialty Start Date End Date Truong Colon MD [address] [place] [address] PCP - General Internal Medicine 03/06/23 documented as of this encounter
--- OUTSIDE RECORDS SUMMARY | 2024-09-02 06:41 | XMS_ITS ---
Author Organization [facility] Address [address] [place] [address] Care Team Providers Care Flash Oven Operator Name Role Phone Truong Colon MD Primary Care Provider +1- [phone] Active Problems Problem Noted Date Diagnosed Date [...] are documented for this patient in [facility]. Treatments may have been administered in another system.
--- OUTSIDE RECORDS SUMMARY | 2024-09-02 06:41 | XMS_ITS | Clinical Summary ---
Author Organization [facility] Address [address] [place] [address] Care Team Providers Care Crew Leader Gluing Name Role Phone Truong Colon MD Primary Care Provider +1- [phone] Allergies Active Allergy Reactions Criticality Noted Date [...] age to complete this topic Care Teams Crew Leader Gluing Relationship Specialty Start Date End Date Truong Colon MD [address] [place] [id number] PCP - General Internal Medicine 05/19/22
--- OUTSIDE RECORDS SUMMARY | 2024-09-02 06:41 | XMS_ITS ---
Author Organization [facility] Jaylan [facility]pson [place] Address [address] [facility] [place] [address] Care Team Providers Care Lease Broker Name Role Phone Isaiah DURAN, [place] Primary Care Provider Boby Laguerre Unavailable [phone] Allergies Allergen (clinical drug ingredient) Drug/Non Drug [...] Ordered Date Performed Result Body Sit e 44488-DCGONWN NAIL, 6 OR MORE 01/24/2024 N/A 95447-Dtnv Destruction, 1-14 01/24/2024 N/A 79461-KWYW SKIN LESIONS, OVER 4 01/24/2024 N/A Encounters Encounter Location Date Provider Diagnosis [facility] [place] [address] [place] [address] 01/24/2024 Boby Chapman Atherosclerosis of moapa artery [...] Clinical Notes Section Notes 01/24/2024 Atherosclerosis of moapa artery of both [...] 01/24/2024 Pending Test Test Name Order Date 54769-XLJAOYG NAIL, 6 OR MORE 01/24/2024 59550-Xarf Destruction, 1-14 01/24/2024 63876-XJEC SKIN LESIONS, OVER 4 01/24/20 24 Next Appt Details Follow Up: 2 Months, Reason: Provider Name:Boby Chapman , 10/30/2024 02:45:00 PM, [address], [place], [address], Procedure Notes * Category Sub-Category Detail Notes Wart Treatment Procedure Verrucae were de brided to pin-point bleeding margins with sterile 15 surgical blade, silver nitrate chemocautery applied, recomm. immune-boosting meds such as zinc, recomm. follow up with topical chemosurgical agents, Pt defers any other forms of tx - 34796 Debride Nail 6-10 Nail debridement Performance o f this nail treatment by a nonprofessional would put this patients foot and overall health at risk. Therefore, nail debridement was performed extensively to reduce/remove overall nail length, girth, thickness, subungual debris, and necrotic tissue, by manual and/or electrical means through the use of a nail nipper and/or dremel-type roll grinder, to a more viable healthy nail plate or bed tissue 6-10. Silver nitrate used for any petechial bleeding as necessary. Definitive antifungal treatment options have been reviewed and discussed with the patient. The patient chooses, no pharmaceutical tx - 22275 Keratoma Treatment Parring or Cutting o f Benign Hyperkeratotic Lesion(s) (-57) More than 4 Lesions - The Benign hyperkeratotic lesions, as described above were pared, and/or cut utilizing a sterile 15 blade, tissue nippers, and/or dremel - 93658 , Q8 Progress Notes * Tommie BLANCASOB:[birth year] (78 yo F)Acc No.[id number]:01/24/2024 Progress Note Patient:?Jacinda BLANCAS Provider:?Boby Chapman DPM :1945???Age:78 Y???Sex:Female D ate:01/24/2024 Address:[address] [place] [address] Pcp:Truong Colon MD Subjective: * Chief Complaints: [...] wart - B07.0 (Malka ngozi)???Specify :LEFT???2.?Atherosclerosis of moapa artery of both lower extremities, with unspecified presence of clinical manifestation - I70.203???3.?Tinea unguium - B35.1???4.?Pain in right toe(s) - M79.674???5.?Pain in left toe(s) - M79.675???6.?Left foot pain - M79.672???7.?Xerosis of skin - L85.3???Specify :Acute problem, Stable (1=3),Response to treatment - Improvement??? Plan: * Treatment: 2.?Atherosclerosis of moapa artery of both lower extremities, with unspecified presence of clinical manifestation?Procedure: 37891-SKYP SKIN LESIONS, OVER 4 3.?Tinea unguium?Procedure: 60933-SHVLMTH NAIL, 6 OR MORE 4.?Xerosis of skin? [...] of a nail nipper and/or dremel-type roll grinder, to a more viable healthy nail plate or bed tissue 6-10. Silver nitrate used for any petechial bleeding as necessary. Definitive antifungal treatment options have been reviewed and discussed with the patient. The patient chooses, no pharmaceutical tx - 67696.?Keratoma Treatment:?Parring or Cutting of Benign Hyperkeratotic Lesion(s)?(-57) More than 4 Lesions - The Benign hyperkeratotic lesions, as described above were pared, and/or cut utilizing a sterile 15 blade, tissue nippers, and/or dremel - 47281 , Q8.?Wart Treatment:?Procedure?Verrucae were debrided to pin-point bleeding margins with sterile 15 surgical blade, silver nitrate chemocautery applied, recomm. immune-boosting meds such as zinc, recomm. follow up with topical chemosurgical agents, Pt defers any other forms of tx - 72156.? * Procedure Codes:?32695 DEBRI DE NAIL, 6 OR MORE, Modifiers: XS 31999 Wart Destruction, 1-14, Modifiers: XS 36892 TRIM SKIN LESIONS, OVER 4, Modifiers: XS [...] Chapman DPM Date:?2023 Generated for Yovanny toussaint/Leah/Lois on:?09/02/2024 06:41 AM EDT History and Physical Notes * [...]
--- OUTSIDE RECORDS SUMMARY | 2024-09-02 06:41 | XMS_ITS | Encounter Summary ---
Author Organization [facility] Address [address] [place] [address] Phone Care Team Providers Care Horse Show Judge Name Role Phone Truong Colon MD Primary Care Provider +1- [phone] Encounter Details Date Type Department Care Team (Late Contact Info) Description 05/27/2024 Documentation Only [facility] [address] [place] [address] Kylie Gabriel [address] [place] [address] Social History Tobacco Use Types [...] [facility] [address] [place] [address] Romero Jimenez MD [address] [place] [address] [place] [address] documented as of this encounter Visit Diagnoses Not on filedocumented in this encounter Care Teams Horse Show Judge Relationship Specialty Start Date End Date Truong Colon MD [address] [place] [address] PCP - General Internal Medicine 03/06/23 documented as of this encounter
--- OUTSIDE RECORDS SUMMARY | 2024-09-02 06:41 | XMS_ITS | Encounter Summary ---
Author Organization [facility] Address [address] [place] [address] Phone Care Team Providers Care Television Equipment Operator Name Role Phone Truong Colon MD Primary Care Provider +1- [phone] Encounter Details Date Type Department Care Team (Late Contact Info) Description 08/12/2024 Documentation Only [facility] [address] [place] [address] [place] [address] [place] [address] Social History Tobacco Use Types Packs/Day [...] [facility] [address] [place] [address] Romero Jimenez MD [address] [place] [address] [place] [address] documented as of this encounter Visit Diagnoses Not on filedocumented in this encounter Care Teams Television Equipment Operator Relationship Specialty Start Date End Date Truong Colon MD [address] [place] [address] PCP - General Internal Medicine 03/06/23 documented as of this encounter
--- OUTSIDE RECORDS SUMMARY | 2024-09-02 06:42 | XMS_ITS | Encounter Summary ---
Author Organization [facility] Address [address] [place] [address] Phone Care Team Providers Care Cold Press Operator Name Role Phone Truong Colon MD Primary Care Provider +1- [phone] Encounter Details Date Type Department Care Team (Late Contact Info) Description 05/12/2021 Documentation Only [facility] [address] [place] [place] [address] Eligio Meza MD [address] [place] [address] [place] [address] Social History Tobacco Use Types [...] Services [facility] [address] [place] [place] [address] Romero Jimenez MD [address] [facility] [place] [address] documented as of this encounter Visit Diagnoses Not on filedocumented in this encounter Care Teams Cold Press Operator Relationship Specialty Start Date End Date Truong Colon MD [address] [place] [address] PCP - General Internal Medicine 03/06/23 documented as of this encounter
--- OUTSIDE RECORDS SUMMARY | 2024-09-02 06:42 | XMS_ITS | Encounter Summary ---
Author Organization [facility] Address [address] [place] [address] Phone Care Team Providers Care Office Administration Name Role Phone Truong Colon MD Primary Care Provider +1- [phone] Encounter Details Date Type Department Care Team (Late Contact Info) Description 04/24/2024 Documentation Only [facility] [address] [place] [address] Kylie Gabriel [address] [place] [address] Social History Tobacco Use Types [...] [facility] [address] [place] [address] Romero Jimenez MD [address] [place] [address] [place] [address] documented as of this encounter Visit Diagnoses Not on filedocumented in this encounter Care Teams Office Administration Relationship Specialty Start Date End Date Truong Colon MD [address] [place] [address] PCP - General Internal Medicine 03/06/23 documented as of this encounter
--- OUTSIDE RECORDS SUMMARY | 2024-09-02 06:42 | XMS_ITS | Encounter Summary ---
Author Organization [facility] Address [address] [place] [address] Phone Care Team Providers Care Visitor Services Technician Name Role Phone Truong Colon MD Primary Care Provider +1- [phone] Encounter Details Date Type Department Care Team (Late Contact Info) Description 06/13/2024 Orders Only [facility] [address] [place] [address] Kylie Gabriel [address] [place] [address] Anemia in chronic kidney disease; [...] Transplant [facility] [address] [place] [address] Romero Jimenez MD [address] [facility] [place] [address] documented as of this encounter Visit Diagnoses Diagnosis Anemia in chronic kidney disease Stage 3b chronic kidney disease (HCC) Iron deficiency anemia, not otherwise specified documented in this encounter Care Teams Visitor Services Technician Relationship Specialty Start Date End Date Truong Colon MD [address] [place] [address] PCP - General Internal Medicine 03/06/23 documented as of this encounter
--- OUTSIDE RECORDS SUMMARY | 2024-09-02 06:42 | XMS_ITS | Encounter Summary ---
Author Organization [facility] Address [address] [place] [address] Phone Care Team Providers Care Career Transition Specialist Name Role Phone Truong Colon MD Primary Care Provider +1- [phone] Encounter Details Date Type Department Care Team (Late Contact Info) Description 01/31/2024 Documentation Only [facility] [address] [place] [address] Kylie Gabriel [address] [place] [address] Social History Tobacco Use Types [...] [facility] [address] [place] [address] Romero Jimenez MD [address] [place] [address] [place] [address] documented as of this encounter Visit Diagnoses Not on filedocumented in this encounter Care Teams Career Transition Specialist Relationship Specialty Start Date End Date Truong Colon MD [address] [place] [address] PCP - General Internal Medicine 03/06/23 documented as of this encounter
--- OUTSIDE RECORDS SUMMARY | 2024-09-02 06:42 | XMS_ITS | Encounter Summary ---
Author Organization [facility], Address [address] [place] [address] Phone Care Team Providers Care Head Athletic Trainer Name Role Phone Truong Colon MD Primary Care Provider +1- [phone] Encounter Details Date Type Department Care Team (Late Contact Info) Description 01/23/2024 Documentation Only [facility], - [address] [place] [address] Jasmin Dumont [address] [place] [address] Social History Tobacco Use Types Packs/Day [...] Visit [facility], [address] [place] [address] Romero Jimenez MD [address] [facility] [place] [address] documented as of this encounter Visit Diagnoses Not on filedocumented in this encounter Care Teams Head Athletic Trainer Relationship Specialty Start Date End Date Truong Colon MD [address] [place] [address] PCP - General Internal Medicine 03/06/23 documented as of this encounter
--- OUTSIDE RECORDS SUMMARY | 2024-09-02 06:42 | XMS_ITS | Encounter Summary ---
Author Organization [facility] Address [address] [place] [address] Phone Care Team Providers Care Sheet Metal Fabricator Name Role Phone Truong Colon MD Primary Care Provider +1- [phone] Encounter Details Date Type Department Care Team (Late Contact Info) Description 06/03/2024 Documentation Only [facility] [address] [place] [address] Kylie Gabriel [address] [place] [address] Social History Tobacco Use [...] [facility] [address] [place] [address] Romero Jimenez MD [address] [place] [address] [place] [address] documented as of this encounter Visit Diagnoses Not on filedocumented in this encounter Care Teams Sheet Metal Fabricator Relationship Specialty Start Date End Date Truong Colon MD [address] [place] [address] PCP - General Internal Medicine 03/06/23 documented as of this encounter
--- OUTSIDE RECORDS SUMMARY | 2024-09-02 06:42 | XMS_ITS | Encounter Summary ---
Author Organization [facility] Address [address] [place] [address] Phone Care Team Providers Care Hospital Pharmacist Name Role Phone Truong Colon MD Primary Care Provider +1- [phone] Encounter Details Date Type Department Care Team (Late Contact Info) Description 10/26/2023 Documentation Only [facility] [address] [place] [address] Kylie Gabriel [address] [place] [address] Social History Tobacco Use Types [...] [facility] [address] [place] [address] Romero Jimenez MD [address] [place] [address] [place] [address] documented as of this encounter Visit Diagnoses Not on filedocumented in this encounter Care Teams Hospital Pharmacist Relationship Specialty Start Date End Date Truong Colon MD [address] [place] [address] PCP - General Internal Medicine 03/06/23 documented as of this encounter
--- OUTSIDE RECORDS SUMMARY | 2024-09-02 06:42 | XMS_ITS | Encounter Summary ---
Author Organization [facility] Address [address] [place] [address] Phone Care Team Providers Care Tenter Frame Back Tender Name Role Phone Truong Colon MD Primary Care Provider +1- [phone] Encounter Details Date Type Department Care Team (Late Contact Info) Description 01/14/2024 Documentation Only [facility] [address] [place] [address] [place] [address] [place] [address] Social History Tobacco Use Types Packs/Day [...] [facility] [address] [place] [address] Romero Jimenez MD [address] [facility] [place] [address] documented as of this encounter Visit Diagnoses Not on filedocumented in this encounter Care Teams Tenter Frame Back Tender Relationship Specialty Start Date End Date Truong Colon MD [address] [place] [address] PCP - General Internal Medicine 03/06/23 documented as of this encounter
--- OUTSIDE RECORDS SUMMARY | 2024-09-02 06:42 | XMS_ITS | Encounter Summary ---
Author Organization [facility] Address [address] [place] [address] Phone Care Team Providers Care Aerial Gunner Name Role Phone Truong Colon MD Primary Care Provider +1- [phone] Encounter Details Date Type Department Care Team (Late Contact Info) Description 05/04/2022 Documentation Only [facility] [address] [place] [address] Kylie Gabriel [address] [place] [address] Social History Tobacco Use Types [...] [facility] [address] [place] [address] Romero Jimenez MD [address] [place] [address] [place] [address] documented as of this encounter Visit Diagnoses Not on filedocumented in this encounter Care Teams Aerial Gunner Relationship Specialty Start Date End Date Truong Colon MD [address] [place] [address] PCP - General Internal Medicine 03/06/23 documented as of this encounter
--- OUTSIDE RECORDS SUMMARY | 2024-09-02 06:42 | XMS_ITS | Patient Health Record ---
Author Organization [facility] [place] Address [address] [place] [address] Care Team Providers Care Lead Sustainability Specialist Name Role Phone Isaiah DURAN, [place] Primary Care Provider Boby Laguerre Unavailable [phone] Allergies Allergen (clinical drug ingredient) Drug/Non Drug [...] Problem Acquired hammer toe of right foot (8020128419423124 ) Other hammer toe(s) (acquired), right foot (M20.41) Active confirmed Response to treatment, Improvemen t Problem Acquired hammer toe of left foot (7597852440660220 ) Other hammer toe(s) (acquired), left foot (M20.42) Active confirmed Response to treatment, Improvemen t Problem Atherosclerosis of moapa arteries of the extremities (753492119893579) Atherosclerosis of moapa artery of both lower extremities, with unspecified presence of clinical manifestation (I70.203) Active confirmed Vital Signs Blood pressure diastolic 64 mm Hg 07/31/2024 Height 5 ft 9in in 07/31/2024 Blood pressure systolic 127 mm Hg 07/31/2024 Weight 233 lbs 07/31/2024 BMI 34.4 kg/m2 07/31/2024 Procedures Procedure Date Ordered Date Performed Result Body Sit e 92815-BTMIYWO NAIL, 6 OR MORE 11/08/2023 N/A 26040-Abax Destruction, 1-14 11/08/2023 N/A 47392-Dzumffdz Plate 11/08/2023 N/A 44077-Poczxlws Plate Each Additional 11/08/2023 N/A 78360-VJKB SKIN LESIONS, OVER 4 11/08/2023 N/A 27899-YEORSGI NAIL, 6 OR MORE 01/24/2024 N/A 62053-Kevz Destruction, 1-14 01/24/2024 N/A 01758-MKCP SKIN LESIONS, OVER 4 01/24/2024 N/A 81364-JOSBXGJ NAIL, 6 OR MORE 05/05/2024 N/A 50836-UGUL SKIN LESIONS, OVER 4 05/05/2024 N/A 97104-OXWWNMT NAIL, 6 OR MORE 07/31/2024 N/A 25835-OZGB SKIN LESIONS, OVER 4 07/31/2024 N/A Encounters Encounter Location Date Provider Diagnosis [address] [address] 11/08/2023 Boby Chapman Atherosclerosis of moapa artery of both lower extremities, with unspecified presence of clinical manifestation I70.203 ; Plantar wart B07.0 ; Tinea unguium B35.1 ; Pain in right toe(s) M79.674 ; Pain in left toe(s) M79.675 ; Ingrown nail L60.0 ; Left foot pain M79.672 and Xerosis of skin L85.[address] [address] 01/24/2024 Boby Chapman Atherosclerosis of moapa artery of both lower extremities, with unspecified presence of clinical manifestation I70.203 ; Plantar wart B07.0 ; Tinea unguium B35.1 ; Pain in right toe(s) M79.674 ; Pain in left toe(s) M79.675 ; Left foot pain M79.672 and Xerosis of skin L85.[address] [address] 05/05/2024 Boby Chapman Atherosclerosis of moapa artery of both lower extremities, with unspecified presence of clinical manifestation I70.203 ; Tinea unguium B35.1 ; Pain in right toe(s) M79.674 ; Pain in left toe(s) M79.675 ; Other hammer toe(s) (acquired), right foot M20.41 and Other hammer toe(s) (acquired), left foot M20.[address] [place] [address] 07/31/2024 Bobysveta IvoryAdela Atherosclerosis of moapa artery of both lower extremities, with unspecified presence of clinical manifestation I70.203 ; Tinea unguium B35.1 ; Pain in right toe(s) M79.674 ; Pain in left toe(s) M79.675 ; Other hammer toe(s) (acquired), right foot M20.41 and Other hammer toe(s) (acquired), left foot M20.42 Assessments Encounter Date Diagnosis (ICD Code) Assessment Notes Treatment Notes Treatment Clinical Notes Section Notes 11/08/2023 Plantar wart (ICD-10 - B07.0) 11/08/2023 [...] B35.1) 11/08/2023 Tinea unguium (ICD-10 - B35.1) 11/08/2023 [...] M79.675) 11/08/2023 Ingrown nail (ICD-10 - L60.0) 05/05/2024 Other hammer toe(s) (acquired), left foot (ICD-10 - M20.42) 01/24/2024 Left foot pain (ICD-10 - M79.672) 07/31/2024 Other hammer toe(s) (acquired), left foot (ICD-10 - M20.42) 11/08/2023 Left foot pain (ICD-10 - M79.672) 01/24/2024 Xerosis of skin (ICD-10 - L85.3) 11/08/2023 Xerosis of skin (ICD-10 - L85.3) Plan Of Treatment Pending Test Test Name Order Date 02160-RXUCWDS NAIL, 6 OR MORE 03/21/2017 13123-BWLTLLL NAIL, 6 OR MORE 05/30/2017 75905-AJUSFES NAIL, 6 OR MORE 08/06/2017 80071-KDDTKUT NAIL, 6 OR MORE 10/25/2017 44979-FHIDNUO NAIL, 6 OR MORE 03/20/2018 38827-GJSTKYN NAIL, 6 OR MORE 06/13/2018 54948-IOCMDQI NAIL, 6 OR MORE 01/07/2018 12316-DRYSPAY NAIL, 6 OR MORE 08/14/2018 59564-CHBUYZN NAIL, 6 OR MORE 10/17/2018 55065-ERSGSGV NAIL, 6 OR MORE 01/16/2019 06077-CYUYKNL NAIL, 6 OR MORE 04/03/2019 10178-TEWBDPC NAIL, 6 OR MORE 06/16/2019 54863-SPSOIZO NAIL, 6 OR MORE 08/27/2019 26113-TKYMTKS NAIL, 6 OR MORE 12/18/2019 04246-TDIFQUK NAIL, 6 OR MORE 05/06/2020 68380-POFQRXO NAIL, 6 OR MORE 07/15/2020 66603-OOVEJZS NAIL, 6 OR MORE 09/29/2020 97820-NDYRDPQ NAIL, 6 OR MORE 12/02/2020 40682-EWNKSJH NAIL, 6 OR MORE 02/17/2021 95519-HCTETNH NAIL, 6 OR MORE 06/16/2021 64264-YZGSGHN NAIL, 6 OR MORE 08/29/2021 09650-WJIKNYY NAIL, 6 OR MORE 11/10/2021 33644-JIMZKRL NAIL, 6 OR MORE 01/19/2022 09925-GMFZUKR NAIL, 6 OR MORE 04/05/2022 51589-RXZDYLU NAIL, 6 OR MORE 06/15/2022 79883-SRFCKQL NAIL, 6 OR MORE 08/24/2022 24212-GPVGNSU NAIL, 6 OR MORE 11/16/2022 00546-MYUXXKQ NAIL, 6 OR MORE 01/25/2023 56413-IUEBZJT NAIL, 6 OR MORE 04/11/2023 14188-NMWCMCH NAIL, 6 OR MORE 06/27/2023 25501-XYCDEHD NAIL, 6 OR MORE 08/30/2023 72310-APXFPJI NAIL, 6 OR MORE 11/08/2023 93085-UOZTNKB NAIL, 6 OR MORE 01/24/2024 27755-JCEOZKT NAIL, 6 OR MORE 05/05/2024 23711-CMQKFAN NAIL, 6 OR MORE 07/31/2024 44464-FVICKBE NAIL, 1-5 11/01/2016 47092-LFQACBB NAIL, -5 01/03/2017 91503-UEPRVDE NAIL, -5 11/15/2015 93088-DVJZWIC NAIL, -5 01/24/2016 90533-QDKOOLG NAIL, -5 04/05/2016 19768-UFQVLCH NAIL, -06/14/2016 60359-MNXGMJC NAIL, -08/23/2016 36528-Bqsk Destruction, -14 11/01/2016 39014-Xqfe Destruction, -14 01/03/2017 07118-Ktyl Destruction, -03/21/2017 59232-Uyln Destruction, 05-0605/30/2017 63964-Bqtn Destruction, 05-0608/06/2017 85462-Erzt Destruction, 05-0605/06/2020 98607-Okdt Destruction, 05-0612/18/2019 06520-Ejgd Destruction, 05-0608/27/2019 10618-Uukt Destruction, 05-0606/16/2019 87833-Vscv Destruction, 05-0604/03/2019 30434-Sewr Destruction, 05-0601/16/2019 55257-Csqj Destruction, 05-0610/17/2018 39899-Eilv Destruction, 05-0608/14/2018 01082-Scdk Destruction, 05-0606/13/2018 26326-Ymcb Destruction, 05-0610/25/2017 10222-Noww Destruction, 05-0601/07/2018 45592-Wblm Destruction, 05-0608/30/2023 97953-Auly Destruction, 05-0606/27/2023 20148-Gpep Destruction, 05-0604/11/2023 66537-Ouql Destruction, 05-0601/25/2023 79614-Hepn Destruction, 05-0611/16/2022 74382-Lujt Destruction, 05-0608/24/2022 84836-Jhec Destruction, 05-0606/15/2022 96992-Qdun Destruction, 05-0604/05/2022 13124-Tnco Destruction, 05-0601/19/2022 56392-Ysaa Destruction, 05-0606/16/2021 01702-Nfje Destruction, 05-0603/20/2018 37546-Yokr Destruction, 05-0611/10/2021 07704-Qsla Destruction, 05-0608/29/2021 56340-Gbuo Destruction, 05-0602/17/2021 40785-Udnu Destruction, 05-0612/02/2020 28914-Dgzj Destruction, 05-0609/29/2020 36024-Gwhk Destruction, 05-0607/15/2020 05206-Puov Destruction, 05-0601/24/2024 99979-Kelp Destruction, 05-0611/08/2023 87700-Faiscxdg Plate 11/08/2023 37109-Ncmneyzc Plate 09/29/2020 50173-Mcaxtpwl Plate 12/02/2020 70305-Sxwxroyf Plate 02/17/2021 98276-Qkpzfmvf Plate 06/16/2021 24617-Gasxkzqq Plate 08/29/2021 22621-Ohjxmysx Plate 11/10/2021 55001-Wqwpdfmm Plate 01/19/2022 49409-Vbxoifhb Plate 04/05/2022 57659-Izbmdqfo Plate 06/15/2022 90038-Vhvruzgb Plate 08/24/2022 90813-Yalluzdj Plate 11/16/2022 87960-Hizgsxrn Plate 01/25/2023 95127-Pwvjbzgh Plate 04/11/2023 86341-Upxraqkd Plate 06/27/2023 35610-Mzuvysgp Plate 08/30/2023 74984-Qwpmvefi Plate 12/18/2019 22782-Angpukfa Plate 05/06/2020 71514-Shwpwutr Plate 07/15/2020 12432-Kmbunprg Plate 11/01/2016 97913-Xrzkgfbl Plate Each Additional 12/2023 09470-Wskwusqm Plate Each Additional 09/2023 63234-Nwlgcfjj Plate Each Additional 06080-Ewmqmtdt Plate Each Additional 08/2022 34623-Bvdauumj Plate Each Additional 54350-Cflhmncp Plate Each Additional 07/2022 50667-Yxxmyxws Plate Each Additional 41978-Zknvpcow Plate Each Additional 98477-Fdpwcnca Plate Each Additional 24744-Klfmbsqz Plate Each Additional 27046-ZXUY SKIN LESIONS, OVER 4 11/08/19 24 28146-DUHF SKIN LESIONS, OVER 4 01/24/20 24 77642-YOQW SKIN LESIONS, OVER 4 05/05/19 79369-IORB SKIN LESIONS, OVER 4 08/01/19 87749-JOEL SKIN LESIONS, OVER 4 06/16/19 47319-FUQY SKIN LESIONS, OVER 4 01/20/20 13102-BBSU SKIN LESIONS, OVER 4 11/11/19 34627-JZIO SKIN LESIONS, OVER 4 08/30/19 91873-MMOX SKIN LESIONS, OVER 4 02/18/20 83319-PTQI SKIN LESIONS, OVER 4 12/03/19 60310-KYUD SKIN LESIONS, OVER 4 09/30/19 39625-QYAI SKIN LESIONS, OVER 4 07/16/19 15007-YIBG SKIN LESIONS, OVER 4 04/05/20 52073-MNAP SKIN LESIONS, OVER 4 06/15/19 23 50068-DIMY SKIN LESIONS, OVER 4 08/25/19 50481-CFGK SKIN LESIONS, OVER 4 11/17/19 23 09340-MCYU SKIN LESIONS, OVER 4 01/26/20 02570-LMLF SKIN LESIONS, OVER 4 04/11/20 23 14906-TJHD SKIN LESIONS, OVER 4 06/27/19 07108-CREO SKIN LESIONS, OVER 4 08/30/19 24 56145-NGKL SKIN LESIONS, OVER 4 03/21/20 17 91325-RTLW SKIN LESIONS, OVER 4 01/04/20 17 75456-TROG SKIN LESIONS, OVER 4 10/26/19 18 10624-JFSS SKIN LESIONS, OVER 4 08/07/19 18 73601-JIGE SKIN LESIONS, OVER 4 05/30/19 18 11741-RKVZ SKIN LESIONS, OVER 4 11/02/19 17 46148-CZEL SKIN LESIONS, OVER 4 06/14/19 17 28498-DLLQ SKIN LESIONS, OVER 4 04/05/20 16 02683-MCAO SKIN LESIONS, OVER 4 08/24/19 17 94521-AOOM SKIN LESIONS, OVER 4 01/24/20 16 20218-GDYZ SKIN LESIONS, OVER 4 11/15/19 16 12303-JEST SKIN LESIONS, OVER 4 08/16/19 16 08011-FNAJ SKIN LESIONS, OVER 4 05/06/19 21 77902-DKWR SKIN LESIONS, OVER 4 12/18/19 20 76335-FWLD SKIN LESIONS, OVER 4 08/27/19 20 91887-VMMI SKIN LESIONS, OVER 4 04/03/20 19 63023-VAPU SKIN LESIONS, OVER 4 06/16/19 20 12373-RDGF SKIN LESIONS, OVER 4 01/08/20 18 57317-XMXS SKIN LESIONS, OVER 4 06/13/19 19 05160-ZDII SKIN LESIONS, OVER 4 08/15/19 19 86382-WLHY SKIN LESIONS, OVER 4 03/20/20 18 01231-JVQP SKIN LESIONS, OVER 4 10/18/19 19 78775-QCMR SKIN LESIONS, OVER 4 01/17/20 19 N7562-LNCKJFCT DYSTROPHIC NAILS ANY # R7078-XTMLUNCJ DYSTROPHIC NAILS ANY # H9621-JTLZXTZK DYSTROPHIC NAILS ANY # S5418-PELHKFMZ DYSTROPHIC NAILS ANY # A9968-DYTYIXZO DYSTROPHIC NAILS ANY # J6940-UKAUKJOO DYSTROPHIC NAILS ANY # X1251-JMMYYBAA DYSTROPHIC NAILS ANY # M1173-NZMWORFX DYSTROPHIC NAILS ANY # Next Appt Details Provider Name:Boby Chapman , 10/30/2024 02:45:00 PM, [address] [facility] [facility], [address], [place], [address], Insurance Providers Payer Name Payer Address Payer Phone Subscriber Number Group Number Insured Name Patient Relationship to Insured Coverage Start Date Coverage End Date [facility] [employer] Claims [address] [place] [id number] Jacinda Benavidez Self - patient is the insured Medical (General) History Medical History History ICD Code Anemia Anxiety Arthritis Back,Hip,and Knee pain Cataracts High blood pressure Liver disease Reflux Thyroid disorder Surgical History Surgery Date(Month/Year) gall bladder 12/11/2014 Unspecified Right Hand SX 03/13/17
--- OUTSIDE RECORDS SUMMARY | 2024-09-02 06:42 | XMS_ITS | Continuity of Care Document ---
Author Organization [facility] Address [address] [place] [address] Phone Care Team Providers Care Naprapath Name Role Phone Amanuel DURAN FACS RVT [...] Providers Copied on Encounter [facility], [address], [id number], [place] tel:[phone] [place] No Information 3 Amanuel DURAN FACS T SIMÓN Pinto. [address] [facility], [address], [place], [address], [place]. [phone] Referring Provider: Truong Colon MD, [address], [place], [address]. tel:[phone] Office/Outpt E&M Established 25 Mins [facility], [address] [place] [address] Dr [address], [id number], [place] tel:[phone] [facility] Body mass index (BMI) 34.0-34.9, adultVenous insufficiency (chronic) (peripheral) 3 Amanuel DURAN FACS Yoni Pinto. [address] [place] [address], [place] [address], [place], [address], [place]. [phone] Referring Provider: Truong Colon MD, [address], [place], [address]. 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 [address] [place] [address], [address], [place], [address], [place]. [phone] Referring Provider: Truong Colon MD, [address], [place], [address]. 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 [facility] [facility], [address], [place], [address], [place]. tel:[phone] Referring Provider: Truong Colon MD, [address], [place], [address]. tel:[phone] [place] [facility], [address] [place] [address] [address], [id number], [place] tel:[phone] [facility] Encntr for f/u exam aft trtmt for cond oth than malig neoplmVenous insufficiency (chronic) (peripheral) 3 Amanuel DURAN FACS RVT SIMÓN Pinto. [address] [facility], [facility] [address], [place], [address], [place]. tel:[phone] Referring Provider: Truong Colon MD, [address] [place] [address] Dr [address], [place], [address]. 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 [address] [facility], [facility] [address], [place], [address], [place]. [phone] Referring Provider: Truong Colon MD, [address] [place] [address] Dr [address], [place], [address]. 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 [address] [facility], [facility] [address], [place], [address], [place]. tel:[phone] Referring Provider: Truong Colon MD, [address], [place], [address]. tel:[phone] Family History Family Member Type Diagnosis Age At Onset No Information Payers Payer name Insurance type Covered libertarian ID Josefina haynes(s) [facility] [id number] Social History Type Description Quantity Date Captured [...]
--- OUTSIDE RECORDS SUMMARY | 2024-09-02 06:42 | XMS_ITS | Encounter Summary ---
Author Organization [facility] Address [address] [place] [address] Phone Care Team Providers Care Soil Checker Name Role Phone Truong Colon MD Primary Care Provider +1- [phone] Encounter Details Date Type Department Care Team (Late Contact Info) Description 07/31/2024 Documentation Only [facility] [address] [place] [address] Kylie Gabriel [address] [place] [address] Social History Tobacco Use Types [...] [facility] [address] [place] [address] Romero Jimenez MD [address] [place] [address] [place] [address] documented as of this encounter Visit Diagnoses Not on filedocumented in this encounter Care Teams Soil Checker Relationship Specialty Start Date End Date Truong Colon MD [address] [place] [address] PCP - General Internal Medicine 03/06/23 documented as of this encounter
--- OUTSIDE RECORDS SUMMARY | 2024-09-02 06:42 | XMS_ITS | Encounter Summary ---
Author Organization [facility] Address [address] [place] [address] Phone Care Team Providers Care Bottle Filler Name Role Phone Truong Colon MD Primary Care Provider +1- [phone] Encounter Details Date Type Department Care Team (Late Contact Info) Description 10/29/2023 Documentation Only [facility] [address] [place] [address] Kylie Gabriel [address] [place] [address] Social History [...] [facility] [address] [place] [address] Romero Jimenez MD [address] [place] [address] [place] [address] documented as of this encounter Visit Diagnoses Not on filedocumented in this encounter Care Teams Bottle Filler Relationship Specialty Start Date End Date Truong Colon MD [address] [place] [address] PCP - General Internal Medicine 03/06/23 documented as of this encounter
--- OUTSIDE RECORDS SUMMARY | 2024-09-02 06:42 | XMS_ITS | Encounter Summary ---
Author Organization [facility] Address [address] [place] [address] Phone Care Team Providers Care Stud Master/Mistress Name Role Phone Truong Colon MD Primary Care Provider +1- [phone] Encounter Details Date Type Department Care Team (Late Contact Info) Description 04/11/2022 Documentation Only [facility] [address] [place] [address] Kylie Gabriel [address] [place] [address] Social History Tobacco Use Types [...] [facility] [address] [place] [address] Romero Jimenez MD [address] [place] [address] [place] [address] documented as of this encounter Visit Diagnoses Not on filedocumented in this encounter Care Teams Stud Master/Mistress Relationship Specialty Start Date End Date Truong Colon MD [address] [place] [address] PCP - General Internal Medicine 03/06/23 documented as of this encounter
--- OUTSIDE RECORDS SUMMARY | 2024-09-02 06:42 | XMS_ITS | Encounter Summary ---
Author Organization [facility] Address [address] [place] [address] Phone Care Team Providers Care Compensation And Benefits Administrator Name Role Phone Truong Colon MD Primary Care Provider +1- [phone] Encounter Details Date Type Department Care Team (Late Contact Info) Description 10/26/2023 Documentation Only [facility] [address] [place] [address] Kylie Gabriel [address] [place] [address] Social History Tobacco Use Types [...] [facility] [address] [place] [address] Romero Jimenez MD [address] [place] [address] [place] [address] documented as of this encounter Visit Diagnoses Not on filedocumented in this encounter Care Teams Compensation And Benefits Administrator Relationship Specialty Start Date End Date Truong Colon MD [address] [place] [address] PCP - General Internal Medicine 03/06/23 documented as of this encounter
--- OUTSIDE RECORDS SUMMARY | 2024-09-02 06:42 | XMS_ITS | Encounter Summary ---
Author Organization [facility] Address [address] [place] [address] Phone Care Team Providers Care Pediatric Nurse Name Role Phone Truong Colon MD Primary Care Provider +1- [phone] Encounter Details Date Type Department Care Team (Late Contact Info) Description 08/08/2024 Orders Only [facility] [address] [place] [address] Kylie Gabriel [address] [place] [address] Anemia in chronic kidney disease; [...] Visit [facility] [address] [place] [address] Romero Jimenez MD [address] [place] [address] documented as of this encounter Visit Diagnoses Diagnosis Anemia in chronic kidney disease Stage 3b chronic kidney disease (HCC) Iron deficiency anemia, not otherwise specified documented in this encounter Care Teams Pediatric Nurse Relationship Specialty Start Date End Date Truong Colon MD [address] [place] [address] PCP - General Internal Medicine 03/06/23 documented as of this encounter
--- OUTSIDE RECORDS SUMMARY | 2024-09-02 06:42 | XMS_ITS | Encounter Summary ---
Author Organization [facility] Address [address] [place] [address] Phone Care Team Providers Care Cream Ripener Name Role Phone Truong Colon MD Primary Care Provider +1- [phone] Encounter Details Date Type Department Care Team (Late Contact Info) Description 01/21/2024 Orders Only [facility] [address] [place] [address] Dimitris Suarez PA Stage 3a [...] [facility] [address] [place] [address] Romero Jimenez MD [address] [place] [address] [place] [address] documented as of this encounter Visit Diagnoses Diagnosis Stage 3a chronic kidney disease (HCC) Essential hypertension Peripheral vascular disease (HCC) Peripheral vascular disease Renal osteodystrophy documented in this encounter Care Teams Cream Ripener Relationship Specialty Start Date End Date Truong Colon MD [address] [place] [address] PCP - General Internal Medicine 03/06/23 documented as of this encounter
--- OUTSIDE RECORDS SUMMARY | 2024-09-02 06:42 | XMS_ITS | Encounter Summary ---
Author Organization [facility] Address [address] [place] [address] Phone Care Team Providers Care Family Consultant Name Role Phone Truong Colon MD Primary Care Provider +1- [phone] Encounter Details Date Type Department Care Team (Late Contact Info) Description 04/10/2024 Documentation Only [facility] [address] [place] [address] Kylie Gabriel [address] [place] [address] Social History Tobacco Use Types [...] [facility] [address] [place] [address] Romero Jimenez MD [address] [place] [address] [place] [address] documented as of this encounter Visit Diagnoses Not on filedocumented in this encounter Care Teams Family Consultant Relationship Specialty Start Date End Date Truong Colon MD [address] [place] [address] PCP - General Internal Medicine 03/06/23 documented as of this encounter
--- OUTSIDE RECORDS SUMMARY | 2024-09-02 06:42 | XMS_ITS | Encounter Summary ---
Author Organization [facility] Address [address] [place] [address] Phone Care Team Providers Care Street Openings Inspector Name Role Phone Truong Colon MD Primary Care Provider +1- [phone] Encounter Details Date Type Department Care Team (Late Contact Info) Description 04/10/2024 Documentation Only [facility] [address] [place] [address] Kylie Gabriel [address] [...] [facility] [address] [place] [address] Romero Jimenez MD [address] [place] [address] [place] [address] documented as of this encounter Visit Diagnoses Not on filedocumented in this encounter Care Teams Street Openings Inspector Relationship Specialty Start Date End Date Truong Colon MD [address] [place] [address] PCP - General Internal Medicine 03/06/23 documented as of this encounter
--- OUTSIDE RECORDS SUMMARY | 2024-09-02 06:42 | XMS_ITS | Encounter Summary ---
Author Organization [facility] Address [address] [place] [address] Phone Care Team Providers Care Welding Technician Name Role Phone Truong Colon MD Primary Care Provider +1- [phone] Encounter Details Date Type Department Care Team (Late Contact Info) Description 04/04/2024 Documentation Only [facility] [address] [place] [address] Jasmin Dumont [address] [place] [address] Social History Tobacco Use Types [...] [facility] [address] [place] [address] Romero Jimenez MD [address] [place] [address] [place] [address] documented as of this encounter Visit Diagnoses Not on filedocumented in this encounter Care Teams Welding Technician Relationship Specialty Start Date End Date Truong Colon MD [address] [place] [address] PCP - General Internal Medicine 03/06/23 documented as of this encounter
--- OUTSIDE RECORDS SUMMARY | 2024-09-02 06:42 | XMS_ITS | Encounter Summary ---
Author Organization [facility] Address [address] [place] [address] Phone Care Team Providers Care Sales Promotion Representative Name Role Phone Truong Colon MD Primary Care Provider +1- [phone] Encounter Details Date Type Department Care Team (Late Contact Info) Description 08/04/2024 Documentation Only [facility] [address] [place] [address] Kylie Gabriel [address] [place] [address] Social History Tobacco Use Types [...] [facility] [address] [place] [address] Romero Jimenez MD [address] [place] [address] [place] [address] documented as of this encounter Visit Diagnoses Not on filedocumented in this encounter Care Teams Sales Promotion Representative Relationship Specialty Start Date End Date Truong Colon MD [address] [place] [address] PCP - General Internal Medicine 03/06/23 documented as of this encounter
--- OUTSIDE RECORDS SUMMARY | 2024-09-02 06:42 | XMS_ITS | Encounter Summary ---
Author Organization [facility] Address [address] [place] [address] Phone Care Team Providers Care Ux Engineer Name Role Phone Truong Colon MD Primary Care Provider +1- [phone] Encounter Details Date Type Department Care Team (Late Contact Info) Description 12/21/2021 Documentation Only [facility] [address] [place] [address] Dimitris Suarez PA Social History [...] Upcoming Encounters Date Type Department Care Team ([facility] Contact Info) Description 12/02/2024 1:40 PM EDT Office Visit [facility] [address] [place] [address] Romero Jimenez MD [address] [place] [address] [place] [address] documented as of this encounter Visit Diagnoses Not on filedocumented in this encounter Care Teams Ux Engineer Relationship Specialty Start Date End Date Truong Colon MD [address] [place], [place] [id number] PCP - General Internal Medicine 03/06/23 documented as of this encounter
--- OUTSIDE RECORDS SUMMARY | 2024-09-02 06:42 | XMS_ITS | Encounter Summary ---
Author Organization [facility] Address [address] [place] [address] Phone Care Team Providers Care Food Production Machine Operator Name Role Phone Truong Colon MD Primary Care Provider +1- [phone] Encounter Details Date Type Department Care Team (Late Contact Info) Description 04/14/2022 Documentation Only [facility] [address] [place] [address] Eligio Meza MD [address] [place] [address] [place] [address] Social History Tobacco Use Types [...] [facility] [address] [place] [address] Romero Jimenez MD [address] [address] [place] [address] documented as of this encounter Visit Diagnoses Not on filedocumented in this encounter Care Teams Food Production Machine Operator Relationship Specialty Start Date End Date Truong Colon MD [address] [place] [address] PCP - General Internal Medicine 03/06/23 documented as of this encounter
--- OUTSIDE RECORDS SUMMARY | 2024-09-02 06:42 | XMS_ITS | Encounter Summary ---
Author Organization [facility] Address [address] [place] [address] Phone Care Team Providers Care Safety Analyst Name Role Phone Truong Colon MD Primary Care Provider +1- [phone] Encounter Details Date Type Department Care Team (Late Contact Info) Description 11/09/2021 Documentation Only [facility] [address] [place] [address] Dimitris Suarez PA Social History [...] Upcoming Encounters Date Type Department Care Team ([facility] Contact Info) Description 12/02/2024 1:40 PM EDT Office Visit [facility] [address] [place] [address] Romero Jimenez MD [address] [place] [address] [place] [address] documented as of this encounter Visit Diagnoses Not on filedocumented in this encounter Care Teams Safety Analyst Relationship Specialty Start Date End Date Truong Colon MD [address] [place], [place] [address] PCP - General Internal Medicine 03/06/23 documented as of this encounter
--- OUTSIDE RECORDS SUMMARY | 2024-09-02 06:42 | XMS_ITS ---
Author Organization [facility] Address [address] [facility] [place] [address] Care Team Providers Care Mental Health Technician Name Role Phone Isaiah DURAN, Truong Primary Care Provider Boby Laguerre Unavailable [phone] Allergies Allergen (clinical drug ingredient) Drug/Non Drug [...] Ordered Date Performed Result Body Sit e 03903-NVJRCOD NAIL, 6 OR MORE 05/05/2024 N/A 06425-ADEY SKIN LESIONS, OVER 4 05/05/2024 N/A Encounters Encounter Location Date Provider Diagnosis [facility] [address] [address] 05/05/2024 Boby Chapman Atherosclerosis of [place] artery of both lower extremities, with unspecified presence of clinical manifestation I70.203 ; Tinea unguium B35.1 ; Pain in right toe(s) M79.674 ; Pain in left toe(s) M79.675 ; Other hammer toe(s) (acquired), right foot M20.41 and Other hammer toe(s) (acquired), left foot M20.42 Assessments Encounter Date Diagnosis (ICD Code) Assessment Notes Treatment Notes Treatment Clinical Notes Section Notes 05/05/2024 Atherosclerosis of [place] artery of both lower extremities, with unspecified [...] days Pending Test Test Name Order Date 89341-RWGJSFP NAIL, 6 OR MORE 05/05/2024 42605-ARTL SKIN LESIONS, OVER 4 05/05/19 25 Next Appt Details Follow Up: 2 Months, Reason: Provider Name:Boby Chapman , 10/30/2024 02:45:00 PM, [address], [place], [address], Procedure Notes * Category Sub-Category Detail Notes [...] use of a nail nipper and/or dremel-type pigment grinder, to a more viable healthy nail [...] to maintain effectiveness in symptomatic relief - 96435 Keratoma Treatment Parring or Cutting o f [...] instrumentation by the physician of record - 10925, Q8 Progress Notes * Tommie BLANCASOB:[birth year] (78 yo F)Acc No.[id number]:05/05/2024 Progress Note Patient:?Jcainda BLANCAS Provider:?Boby Chapman DPM :1945???Age:78 Y???Sex:Female D ate:05/05/2024 Address:[address] [place], [place] [address] Pcp:Truong Colon MD Subjective: * Chief Complaints: [...] by , , who serves as , Waterproof Bag Sewer/Water Supply Engineer , additional Historian , and/who is physically present in exam room at time of visit.?ORIENTED:?person, place, and time.?FOOT EXAM:?Lower Extremity Neurological Exam performed:?Yes ?Visual exam of foot performed:?Yes ?Date?05/05/2024 ?Footwear Evaluation?Footwear Evaluation performed:?Yes??? Assessment: * Assessment: 1.?Tinea unguium - B35.1???2 .?Atherosclerosis of [place] artery of both lower extremities, with unspecified presence of clinical manifestation - I70.203 (Primary)???3.?Pain in right toe(s) - M79.674???4.?Pain in left toe(s) - M79.675 ??5.?Other hammer toe(s) (acquired), right foot - M20.41???Specify :Chronic problem, Worse (4),Rx Management (4)???6.?Other hammer toe(s) (acquired), left foot - M20.42???Specify :Chronic problem, Worse (4),Rx Management (4)??? Plan: * Treatment: 2.?Tinea unguium?Procedure: 82685-DUJIIZG NAIL, 6 OR MORE 3.?Other hammer toe(s) [...] use of a nail nipper and/or dremel-type pigment grinder, to a more viable healthy nail [...] to maintain effectiveness in symptomatic relief - 98194.?Keratoma Treatment:?Parring or Cutting of Benign Hyperkeratotic Lesion(s)?(-57) [...] instrumentation by the physician of record - 78904, Q8.? * Procedure Codes:?58533 DEBRI DE NAIL, 6 OR MORE, Modifiers: XS 07797 TRIM SKIN LESIONS, OVER 4, Modifiers: XS [...] Provider:?Boby Chapman DPM Date:?2024 Generated for Yovanny toussaint/Leha/Lois on:?09/02/2024 06:42 AM EDT History and Physical Notes * [...] by , , who serves as , Waterproof Bag Sewer/Water Supply Engineer , additional Historian , and/who is physically [...]
--- OUTSIDE RECORDS SUMMARY | 2024-09-02 06:42 | XMS_ITS ---
Author Organization [facility] Address [address] [facility] [place] [address] Care Team Providers Care Director Of Learning Name Role Phone Isaiah DURAN, Truong Primary Care Provider Boby Laguerre Unavailable [phone] Allergies Allergen (clinical drug ingredient) Drug/Non Drug [...] Ordered Date Performed Result Body Sit e 42505-DLOWZWV NAIL, 6 OR MORE 07/31/2024 N/A 62714-AEBE SKIN LESIONS, OVER 4 07/31/2024 N/A Encounters Encounter Location Date Provider Diagnosis [facility] [address] [address] 07/31/2024 Boby Chapman Atherosclerosis of [place] artery of both lower extremities, with unspecified presence of clinical manifestation I70.203 ; Tinea unguium B35.1 ; Pain in right toe(s) M79.674 ; Pain in left toe(s) M79.675 ; Other hammer toe(s) (acquired), right foot M20.41 and Other hammer toe(s) (acquired), left foot M20.42 Assessments Encounter Date Diagnosis (ICD Code) Assessment Notes Treatment Notes Treatment Clinical Notes Section Notes 07/31/2024 Atherosclerosis of [place] artery of both lower extremities, with unspecified [...] Treatment Pending Test Test Name Order Date 23032-OUXWDQC NAIL, 6 OR MORE 07/31/2024 37723-BAMT SKIN LESIONS, OVER 4 08/01/19 25 Next Appt Details Follow Up: 2 Months, Reason: Provider Name:Boby Chapman , 10/30/2024 02:45:00 PM, [address], [place], [address], Procedure Notes * Category Sub-Category Detail Notes [...] use of a nail nipper and/or dremel-type glass grinder, to a more viable healthy nail [...] instrumentation by the physician of record - 97624, Q8 Progress Notes * Tommie BLANCASOB:[birth year] (78 yo F)Acc No.[id number]:07/31/2024 Progress Note Patient:?Jacinda BLANCAS Provider:?Boby Chapman DPM :1945???Age:78 Y???Sex:Female D ate:07/31/2024 Address:[address] [place], [place] [address] Pcp:Truong Colon MD Subjective: * Chief Complaints: [...] Assessment: 1.?Tinea unguium - B35.1???2 .?Atherosclerosis of [place] artery of both lower extremities, with unspecified presence of clinical manifestation - I70.203 (Primary)???Specify :Q8???3.?Pain in right toe(s) - M79.674???4.?Pain in left toe(s) - M79.675???5.?Other hammer toe(s) (acquired), right foot - M20.41???Specify :Chronic problem, Stable (1=3,2=4), Response to treatment - Improvement???6.?Other hammer toe(s) (acquired), left foot - M20.42???Specify :Chronic problem, Stable (1=3,2=4), Response to treatment - Improvement??? Plan: * Treatment: 2.?Tinea unguium?Procedure: 14387-MXXTVJN NAIL, 6 OR MORE * Procedures:?Debride Nail [...] use of a nail nipper and/or dremel-type glass grinder, to a more viable healthy nail [...] to maintain effectiveness in symptomatic relief - 46870.?Keratoma Treatment:?Parring or Cutting of Benign Hyperkeratotic Lesion(s)?(-57) [...] instrumentation by the physician of record - 67958, Q8.? * Procedure Codes:?98136 DEBRI DE NAIL, 6 OR MORE, Modifiers: XS 68450 TRIM SKIN LESIONS, OVER 4, Modifiers: XS [...] Chapman DPM Date:?2024 Generated for Yovanny toussaint/Leah/Lois on:?09/02/2024 06:41 AM [...]
--- OUTSIDE RECORDS SUMMARY | 2024-09-02 06:43 | XMS_ITS | Encounter Summary ---
Author Organization [facility] Address [address] [place] [address] Phone Care Team Providers Care Station Cashier Name Role Phone Truong Colon MD Primary Care Provider +1- [phone] Encounter Details Date Type Department Care Team (Late Contact Info) Description 07/02/2024 Documentation Only [facility] [address] [place] [address] [place] [address] [place] [address] Social History Tobacco Use Types Packs/Day [...] Visit [facility] [address] [place] [address] Romero Jimenez MD [address] [place] [address] [place] [address] documented as of this encounter Visit Diagnoses Not on filedocumented in this encounter Care Teams Station Cashier Relationship Specialty Start Date End Date Truong Colon MD [address] [place] [address] PCP - General Internal Medicine 03/06/23 documented as of this encounter
--- OUTSIDE RECORDS SUMMARY | 2024-09-02 06:43 | XMS_ITS | Clinical Summary ---
Author Organization 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 Encounters Date Type Department Care Team Description 07/17/2024 10:53 AM EDT - 07/17/2024 11:59 PM EDT Hospital Encounter [facility] [address] [id number] Encounter for screening mammogram for malignant neoplasm of breast Discharge Disposition: Home or Self Care 06/09/2024 Telephone [facility]cology [address] [place] [phone] Jillian-Jennifer Brooks MD from Last 3 Months Surgical History Surgery Date Site/Laterality Comments LUMBAR DISC SURGERY PROCEDURE:LUMBAR DISC SURGERY Medical History Medical History Date Comments Malignant neoplasm of upper- outer quadrant of left female breast ([facility] V24, [facility] V28) DX:Malignant neoplasm of upp er-outer quadrant [...] Description 10/02/2024 11:00 AM EDT Office Visit [facility]cology [address] [place] [address] Jillian-Jennifer Gonzalez MD [address] [place] [address] Health Maintenance Due Date Last [...] Diagnosis Comments MG MAMMO DIGITAL SCREENING W RDOGER BILAT Routine 07/17/2024 11:15 AM EDT Encounter [...] year. Mammo Location: [facility], [address] [place] [address], [address], . -------- FINAL REPORT -------- Dictated By: Lilly Ayala Dictated Date: 07/22/2024 16:10 ET Assigned Physician: Lilly Ayala Reviewed and Electronically Signed By: Lilyl Ayala Signed Date: 07/22/2024 16:14 ET Workstation ID: [id number] Transcribed By: Self Edit Transcribed Date: 07/22/2024 [...] year. Mammo Location: [facility], [address] [place] [address], [address], . -------- FINAL REPORT -------- Dictated By: Lilly Ayala Dictated Date: 07/22/2024 16:10 ET Assigned Physician: Lilly Ayala Reviewed and Electronically Signed By: Lilly Ayala Signed Date: 07/22/2024 16:14 ET Workstation ID: [id number] Transcribed By: Self Edit Transcribed Date: 07/22/2024 16:10 ET Jennifer Ca MD IMG BI PROCEDURES F inal Result * DXA BONE DENSITY STUDY 1+ LYLA MANN SKEL (10/07/2021 10:23 AM EDT) Anatomical Region Laterality Modality Bone Densitometr y 05/10/2021 11:5 1 AM EST Narrative 10/07/2021 4:32 PM EDT Clinical history: other osteoporosis Scans of the lumbar spine and hips were performed on a [employer]indie fan beam bone densitometer. ? Bone mineral [...] spine and hips were performed on a [employer] beam bone densitometer. Bone mineral density measurements [...] Group ID:[id number] Type:Not on file Address: [address] [place] [address] Care Teams Rn Office Relationship Specialty Start Date End Date Truong Colon MD [address] [place] [address] [address] [place], [place] PCP - General 05/19/22
--- OUTSIDE RECORDS SUMMARY | 2024-09-02 06:43 | XMS_ITS | Encounter Summary ---
Author Organization [facility] Address [address] [place] [address] Phone Care Team Providers Care Med Care Manager Name Role Phone Truong Colon MD Primary Care Provider +1- [phone] Encounter Details Date Type Department Care Team (Late Contact Info) Description 04/29/2024 Documentation Only [facility] [address] [place] [address] Britt Sol [address] [place] [address] Social History Tobacco Use Types [...] [facility] [address] [place] [address] Romero Jimenez MD [address] [place] [address] [place] [address] documented as of this encounter Visit Diagnoses Not on filedocumented in this encounter Care Teams Med Care Manager Relationship Specialty Start Date End Date Truong Colon MD [address] [place] [address] PCP - General Internal Medicine 03/06/23 documented as of this encounter
--- OUTSIDE RECORDS SUMMARY | 2024-09-02 06:43 | XMS_ITS | Encounter Summary ---
Author Organization [facility] Address [address] [place] [address] Phone Care Team Providers Care Powdered Metal Supervisor Name Role Phone Truong Colon MD Primary Care Provider +1- [phone] Encounter Details Date Type Department Care Team (Late Contact Info) Description 07/11/2024 Orders Only [facility] [address] [place] [address] Kylie Gabriel [address] [place] [address] Anemia in chronic kidney disease; [...] Services Of [facility] [address] [place] [address] Romero Jimenez MD [address] [facility] [place] [address] documented as of this encounter Visit Diagnoses Diagnosis Anemia in chronic kidney disease Stage 3b chronic kidney disease (HCC) Iron deficiency anemia, not otherwise specified documented in this encounter Care Teams Powdered Metal Supervisor Relationship Specialty Start Date End Date Truong Colon MD [address] [place] [address] PCP - General Internal Medicine 03/06/23 documented as of this encounter
--- OUTSIDE RECORDS SUMMARY | 2024-09-02 06:43 | XMS_ITS | Clinical Summary ---
Author Organization [facility], Address [address] [place] [address] [place] [address] Phone Care Team Providers Care Restaurant Inspector Name Role Phone Truong Colon MD Primary Care Provider [phone]- [phone] Allergies Active Allergy Reactions Criticality Noted Date [...] Visit [facility], [address] [place] [place] [address] Romero Jimenez MD Stage 3b chronic kidney disease (HCC) (Primary Dx) 08/12/2024 Documentation Only [facility] [address] [place] [place] [address] Sabrina Membreno MA 08/11/2024 Office Communication [facility] [address] [place] [address] Deisi Wakefield, RN 08/08/2024 Orders Only [facility] [address] [place] [address] Kylie Gabriel Anemia in chronic kidney disease; Stage 3b chronic kidney disease (HCC); Iron deficiency anemia, not otherwise specified 08/06/2024 Documentation Only [facility] [address] [place] [address] Deisi Wakefield, RN labs overdue 08/04/2024 Documentation Only [facility] [address] [place] [address] Kylie Gabriel 07/31/2024 Documentation Only [facility] [address] [place] [address] Kylie Gabriel 07/31/2024 Office Communication [facility] [address] [place] [place] [address] Deisi Wakefield, RN 07/16/2024 3:45 PM EDT Office Visit [facility] [address] [place] [address] Romero Jimenez MD Stage 3b chronic kidney disease (HCC) (Primary Dx) 07/11/2024 Orders Only [facility] [address] [place] [address] Kylie Gabriel Anemia in chronic kidney disease; Stage 3b chronic kidney disease (HCC); Iron deficiency anemia, not otherwise specified 07/02/2024 Documentation Only [facility] [address] [place] [place] [address] Sabrina Membreno MA 06/13/2024 Orders Only [facility] [address] [place] [place] [address] Kylie Gabriel Anemia in chronic kidney disease; Stage 3b chronic kidney disease (HCC); Iron deficiency anemia, not otherwise specified 06/05/2024 Telephone [facility] [address] [place] [place] [address] Deisi Wakefield, RN reminder for labs from Last 3 Months Immunizations Immunization Administration [...] Visit [facility], [address] [place] [address] Romero Jimenez MD [address] [place] [id number] Health Maintenance Due Date Last Done Comments [...] Most Recently Relevant to Health Maintenance Insurance [facility] [employer] ([id number]) [place] [id number] Care Teams Restaurant Inspector Relationship Specialty Start Date End Date Truong Colon MD [address] [place] [id number] PCP - General Internal Medicine 03/06/23
--- OUTSIDE RECORDS SUMMARY | 2024-09-02 06:43 | XMS_ITS ---
Author Organization [facility], Address [address] [place] [address] [place] [address] Phone Care Team Providers Care Customer Counter Representative Name Role Phone Truong Colon MD Primary Care Provider [phone]- [phone] Active Problems Problem Noted Date Diagnosed Date [...]
[2024-09-24 11:49] VITALS: BP 127/60; PULSE 59; RESP 16; O2SAT 99; BMI 32.6
--- NOTE | 2024-09-24 12:13 | P.CONAN_ITS ---
Documented by User: Dawn Trammell NP 09/30/24 15:27 HPI - Anesthesia Eval Consult details Narrative: 79yo F for L2-3 Lumbar Decompression s/p VATS 03/13/24 with GA-ETT 7 - no anesthetic issues per patient Post-op pleural effusion, tx'd with abx and resolution - now SOB resolved, O2 sat 99% RA No recent illness No CP/SOB with minimal activity, ambulates with walker GERD: ppi controls CKD: Follows nephro Rheum: follows for fibromyalgia and OA, questionable hx sjogren's PACs: Follows [facility]. Stable at 07/2024 office visit with 2 year f/u. + STOP bang low/mild risk Last K elevated @ 5.4. Repeat at PAT 09/24/2024: K remains mildly elevated at 5.4. Instruct patient to cut back any high K foods and will repeat draw DOS per LM. PMFSH Active Problems Active Problems: All Active Problems Anxiety (Acute) Well woman exam (Acute) Lung consolidation (Acute) Pleural effusion, left (Acute) Lumbar radiculopathy (Acute) Mediastinal mass (Acute) Chronic pain syndrome (Acute) Chronic idiopathic constipation (Acute) Achalasia (Acute) Tinnitus, bilateral (Acute) Cervical cancer screening (Acute) Fibromyalgia (Acute) Low back pain (Acute) Urinary incontinence (Acute) Dysphagia (Acute) Thrombophlebitis of right leg (Acute) Low back pain with right-sided sciatica (Acute) Trochanteric bursitis, right hip (Acute) Primary osteoarthritis of right knee (Acute) Sjogrens syndrome (Acute) Osteopenia (Acute) S/P thymectomy (Acute 03/13/24) Osteoarthritis of right knee (Acute) BPV (benign positional vertigo) (Acute) Gait instability (Acute) Cervicogenic headache (Acute) Cervicalgia (Acute) Vertigo (Acute) Raynauds disease (Acute) Chronic kidney disease, stage III (moderate) (Acute) Obesity (BMI 30-39.9) (Acute) Benign essential hypertension (Acute) GERD without esophagitis (Acute) Acquired hypothyroidism (Acute) Lumbar spondylosis (Acute) Post laminectomy syndrome (Acute) PAC (premature atrial contraction) (Acute) Past Medical History Medical History Ambulates with cane Difficulty swallowing Osteoarthritis of right knee BPV (benign positional vertigo) Gait instability Cervicogenic headache Cervicalgia Vertigo Chronic kidney disease, stage III (moderate) Obesity (BMI 30-39.9) Gastritis Benign essential hypertension GERD without esophagitis Acquired hypothyroidism Constipation Lumbar spondylosis Post laminectomy syndrome Connective tissue disease Interstitial lung disease Osteopenia PAC (premature atrial contraction) Sjogrens syndrome Hypothyroid Breast cancer Raynauds disease SAMARA positive Family History Family History Father Emphysema of lung Cancer Brother Emphysema of lung Mother Bone cancer Son PONV (postoperative nausea and vomiting) Other Arthritis Family history of problems with anesthesia: No Surgical History Surgical History (Updated 09/24/24 @ 12:05 by Ashely Peters RN) History of video-assisted thoracoscopic surgery (VATS) (03/13/24) 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) Hx of colonoscopy Hx of tubal ligation H/O varicose vein stripping History of cataract surgery H/O lumpectomy Hx of cholecystectomy History of back surgery History of Problems with Anesthesia: No Social History Social History Household Members: Significant Other and Children Housing: Apartment Are you a primary residential child care counselor to a significant other at home: No Do you presently have visiting nurse or other home services: Yes (HEAD WAITER/WAITRESS 4 days a week, 2.5 hours) Alcohol intake: never Comment: pt reports this is her baseline pain Patient Tobacco Use Status: Never used Tobacco e-Cigarette/Vaping Use: Never Used Second Hand Smoke Exposure: No Use of substances other than those prescribed or required for medical reasons: No Have you been hit, kicked, punched, or otherwise hurt by someone within the past year? If so, by whom?: No Are you DNR?: No Advance Directives: No Advance Directives Information Provided: Yes Advance Directives on File: No service: No Current occupational status: retired Cognitive needs: No Hearing needs: No Vision needs: Yes (Glasses) Meds Allergies Allergy/AdvReac Type Severity Reaction Status Date / Time Penicillins [PENICILLINS] Allergy Intermediate rash Verified 08/29/24 10:36 senna Allergy Intermediate rash Verified 08/29/24 10:36 Home Medications ?Medication ?Instructions ?Recorded ?Confirmed ?Last Taken ?Type multivitamin 1 tab PO DAILY 11/15/20 10/02/24 1 Day Ago History ~10/01/24 calcitriol 0.5 mcg capsule 1 mcg PO WE@1645 01/10/23 10/02/24 1 Day Ago History ~10/01/24 Exam Height,Weight and Vital Signs: Height 5 ft 10 in Weight 103 kg Last Vital Signs Pulse 59 09/24/24 11:49 Resp 16 09/24/24 11:49 BP 127/60 09/24/24 11:49 Pulse Ox 99 09/24/24 11:49 O2 Del Method Room Air 09/24/24 11:49 Pertinent Lab Results Pertinent Lab Results: Laboratory Tests 08/13/24 17:14 WBC 11.2 H Hgb 11.8 L Hct 36.7 L Plt Count 197 Sodium 137 Potassium 5.4 H Chloride 103 Carbon Dioxide 27 BUN 23 H Creatinine 1.08 Narrative Narrative: EKG 07/2024 EKG Details: EKG shows sinus rhythm with sinus arrhythmias 57 beats per minute Airway Mallampati Class: II TM Dist: >3cm Neck ROM: Full Partial: Upper and Lower Loose/Missing/Broken Teeth: Yes (Partials top and bottom. Denies broken or loose teeth) Heart: RRR Lungs: CTAB Assessment and Plan Assessment Anesthesia Assessment: Anesthesia Plan Discussed and PAT Visit Final Anesthetic Review Family History of Problems with Anesthesia: No History of Problems with Anesthesia: No Documented by User: Kevyn Gannon MD 10/02/24 08:12 [facility] Past Medical History Medical History Ambulates with cane Difficulty swallowing Osteoarthritis of right knee BPV (benign positional vertigo) Gait instability Cervicogenic headache Cervicalgia Vertigo Chronic kidney disease, stage III (moderate) Obesity (BMI 30-39.9) Gastritis Benign essential hypertension GERD without esophagitis Acquired hypothyroidism Constipation Lumbar spondylosis Post laminectomy syndrome Connective tissue disease Interstitial lung disease Osteopenia PAC (premature atrial contraction) Sjogrens syndrome Hypothyroid Breast cancer Raynauds disease SAMARA positive Functional capacity: uses cane/walker Patient : No Family History Family History Father Emphysema of lung Cancer Brother Emphysema of lung Mother Bone cancer Son PONV (postoperative nausea and vomiting) Other Arthritis Surgical History Surgical History (Updated 09/24/24 @ 12:05 by Ashely Peters RN) History of video-assisted thoracoscopic surgery (VATS) (03/13/24) 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) Hx of colonoscopy Hx of tubal ligation H/O varicose vein stripping History of cataract surgery H/O lumpectomy Hx of cholecystectomy History of back surgery Social History Social History Household Members: Significant Other and Children Housing: Apartment Are you a primary residential child care counselor to a significant other at home: No Do you presently have visiting nurse or other home services: Yes (HEAD WAITER/WAITRESS 4 days a week, 2.5 hours) Alcohol intake: never Comment: pt reports this is her baseline pain Patient Tobacco Use Status: Never used Tobacco e-Cigarette/Vaping Use: Never Used Second Hand Smoke Exposure: No Use of substances other than those prescribed or required for medical reasons: No Have you been hit, kicked, punched, or otherwise hurt by someone within the past year? If so, by whom?: No Are you DNR?: No Advance Directives: No Advance Directives Information Provided: Yes Advance Directives on File: No service: No Current occupational status: retired Cognitive needs: No Hearing needs: No Vision needs: Yes (Glasses) Meds Allergies Allergy/AdvReac Type Severity Reaction Status Date / Time Penicillins [PENICILLINS] Allergy Intermediate rash Verified 08/29/24 10:36 senna Allergy Intermediate rash Verified 08/29/24 10:36 Home Medications ?Medication ?Instructions ?Recorded ?Confirmed ?Last Taken ?Type multivitamin 1 tab PO DAILY 11/15/20 10/02/24 1 Day Ago History ~10/01/24 calcitriol 0.5 mcg capsule 1 mcg PO WE@1645 01/10/23 10/02/24 1 Day Ago History ~10/01/24 Assessment and Plan Final Anesthetic Review ASA Class: III Patient Risk: Intermediate Procedure Risk: Intermediate Anesthetic Plan Anesthetic Plan: GA Disposition: Standard PACU
[2024-09-24 13:20] LABS: Anion Gap 12 (12-20); Carbon Dioxide 29 mmol/L (22-29); Chloride 102 mmol/L (96-108); Potassium 5.4 mmol/L (3.3-5.1); Sodium 138 mmol/L (135-145)
[2024-10-02] VITALS (16 sets, daily range): BP systolic 83–165; BP diastolic 40–86; PULSE 48–64; RESP 10–17; TEMP 36.2–36.4; O2SAT 94–100; BMI 32.4
--- NOTE | ~2024-10-02 | FL_ITS ---
EXAMINATION: FL GUIDANCE ONLY HISTORY: L2-3 Decompression Right COMPARISON: Correlation is made to plain films of the lumbar spine dated 08/29/2024. TECHNIQUE: Fluoroscopy time: Less than 1 minute. Cumulative Dose: 3.30 mGy. DAP: 0.690 mGym2 Images: 2. FINDINGS: Fluoroscopic spot films of the lumbar spine in the lateral projection demonstrate a probe directed toward the L2-3 intervertebral disc space from a posterior approach. FL/FL guidance in OR IMPRESSION: Fluoroscopy during procedure. Please see procedure report for additional information. Electronically signed by: Timoteo Levine MD 10/02/2024 12:29 PM EDT
--- NOTE | 2024-10-02 07:03 | MHC.SHP ---
Pre-Procedural Eval Section A - 24 Hr Update-Section A only Date of Service: 10/02/24 The patient is an INPATIENT: No Changes since office visit: No Cold of Flu in the past 2 weeks, No New Medical Problems, No Changes in Medication and No Patient answered all questions The patient has been examined within 24 hours of the surgical procedure. The History & Physical has been completed within 30 days and I have reviewed it.: No Section B - Complete if H&P > 30 days Chief Complaint: Radiculopathy, lumbar region,low back pain Allergies: Allergies Allergy/AdvReac Type Severity Reaction Status Date / Time Penicillins [PENICILLINS] Allergy Intermediate rash Verified 08/29/24 10:36 senna Allergy Intermediate rash Verified 08/29/24 10:36 Review of Systems Sugical H&P ROS: Negative: Constitution, Cardiovascular, Respiratory, Neurological, Psychiatric, Hem-Onc, Allergic/Immunologic, Gastrointestinal, Genitourinary, Musculoskeletal, Integumentary, Endocrine and Eyes/Ears/Nose/Throat Exam Surgical H&P Exam: Normal: HEENT, Normal: Heart, Normal: Lungs, Normal: Extremities, Normal: Abdomen, Normal: Skin and Normal: Neurological (Awake alert oriented x3) Plan Diagnosis/Plan: Unchanged Right L2-3 decompression Time Spent With Patient Time: Total time managing care of this patient today _ 5 ___ minutes.
--- NOTE | 2024-10-02 07:05 | PM.DS ---
DS: Providers Provider Date of Service: 10/02/24 Date of discharge: 10/02/24 Primary care physician: Truong Colon MD Admitting clinician: Kota Merino DS: Diagnosis Discharge Diagnosis (1) Lumbar radiculopathy: Status: Acute DS: Summary Time Attestation Discharge Coordination Time (in mins): 6 Quality: Safe Use of Opioids Does Pt have an Active Cancer Diagnosis on the Problem List?: No Quality: Stroke Does the patient have a stroke diagnosis?: No Physical Exam Vital Signs: Vital Signs: Last Vital Signs Pulse 59 09/24/24 11:49 Resp 16 09/24/24 11:49 BP 127/60 09/24/24 11:49 Pulse Ox 99 09/24/24 11:49 O2 Del Method Room Air 09/24/24 11:49 BMI result Body Mass Index 32.4 DS: Data Data Completed and Pending Completed studies during hospitalization [Text1]: Procedures Drainage of Left Pleural Cavity with Drainage Device, Percutaneous Endoscopic Approach (03/13/24) Excision of Mediastinum, Percutaneous Endoscopic Approach (03/13/24) Release Left Lung, Percutaneous Endoscopic Approach (03/13/24) Resection of Thymus, Percutaneous Endoscopic Approach (03/13/24) Discharge Plan Discharge Patient Disposition: Home, Self-Care Referrals: Truong Colon MD [Primary Care Provider] - 1 Week Discharge Medications: New docusate sodium [Colace] 100 mg capsule 100 mg PO BID Qty: 20 0RF oxycodone 5 mg tablet 5 mg PO Q6H PRN (Reason: pain) Qty: 20 0RF Rx Instructions: Partial Fill upon patient request. Continued (DME) Commode See Rx Instructions .Route .MEDSUPPLY Qty: 1 0RF Rx Instructions: As directed (DME) DISPOSABLE GLOVES - LARGE (1 box/month) LARGE See Rx Instructions .Route .MEDSUPPLY Qty: 1 5RF Rx Instructions: Use as directed (DME) DISPOSABLE BED PADS See Rx Instructions .Route .MEDSUPPLY Qty: 30 5RF Rx Instructions: Use as directed ONCE A DAY carvedilol 12.5 mg tablet 12.5 mg PO BID 90 Days Qty: 180 3RF omeprazole 40 mg capsule,delayed release(DR/EC) 40 mg PO DAILY@0630 Qty: 90 1RF Rx Instructions: TAKE 1 CAPSULE BY MOUTH EVERY DAY hydroxyzine HCl 25 mg tablet 25 mg PO BID PRN (Reason: anxiety) Qty: 30 1RF docusate sodium 100 mg capsule 100 mg PO DAILY PRN (Reason: for constipation) Qty: 90 0RF bisacodyl 5 mg tablet,delayed release (DR/EC) 5 mg PO BEDTIME 90 Days Qty: 90 1RF (DME) ROLLATOR See Rx Instructions .Route .MEDSUPPLY Qty: 1 0RF Rx Instructions: As directed amlodipine 10 mg tablet 10 mg PO DAILY 90 Days Qty: 90 3RF Rx Instructions: Has been taking 10mg for a while now. levothyroxine 125 mcg tablet 125 mcg PO DAILY@0600 Qty: 90 1RF (DME) FEMININE PADS See Rx Instructions .Route .MEDSUPPLY Qty: 6 12RF Rx Instructions: As directed (DME) MEDICATED INCONTINENCE WIPES See Rx Instructions .Route .MEDSUPPLY Qty: 100 12RF Rx Instructions: As directed multivitamin Tablet 1 tab PO DAILY calcitriol 0.5 mcg capsule 1 mcg PO WE@1645 Rx Instructions: 1 mcg orally weekly; administer after dialysis on dialysis days (DME) cane Device See Rx Instructions .Route Qty: 1 0RF Rx Instructions: As directed - use when walking pregabalin 75 mg capsule 75 mg PO BEDTIME 90 Days Qty: 90 1RF (DME) ROLLATOR See Rx Instructions .Route .MEDSUPPLY Qty: 1 0RF Rx Instructions: As directed Discharge Orders: Discharge Order (Routine); Ordered 10/02/24 Ordered By: Laith Chadwick Diet: Advance to usual diet Activity on Discharge: As tolerated Activity Restrictions/Additional Instructions: After your spinal surgery we ask you to observe the following restrictions/guidelines: Activity: It is normal to feel some discomfort as you increase your activity, but that will improve with time. We ask you avoid heavy lifting or acitivities that cause pain. As a general rule, 8lbs is a safe limit for lifting right after surgery. Walk as much as you feel comfortable but not to exhaustion. You will feel extra tired the first few days after surgery. Stay well hydrated. It is OK to walk up and down stairs You may return to driving when you are off narcotics (such as vicodin, oxycodone, dilaudid, etc), and you are back to normal functional capacity. If you have any concerns please check with office before driving. Return to work is specific to each patient and each surgery, so please speak with your doctor/PA at first follow up. Please bring paperwork such as FMLA at that time if you need it filled out. Medications: For optimum pain control, it is best to start with a combination of 500 mg of Tylenol every 4 hours with 600 mg of Motrin every 8 hours, and use narcotics as needed in between for breakthrough pain. We will give you a short supply of narcotics after surgery (usually one weeks worth). If you need more please call the office but do not use more than prescribed. You will need to give our office 48 hours notice if you need narcotics refilled and we do not fill narcotics on weekends or evenings. If you are on a narcotic, it is a good idea to take a stool softener such as colace or senna to avoid constipation If you take blood thinner such as aspirin, Plavix, Coumadin, Effient, Eliquis etc for conditions such as Afib, DVT, Pulmonary embolus, coronary disease, stents etc please speak with your surgeon about specific details as to when you can resume these medications. You can resume NSAIDs on post op day 1 (eg: Motrin, Naproxen, etc). Follow up: Please call the office, , after surgery to arrange a 3 week follow up for wound check. Wound Care: You may remove your dressing on the first day after surgery. ?You may ?leave open to air. Please do not remove the steri strips underneath. they will fall off on their own in one week. IT IS NORMAL FOR THE WOUND TO OOZE OR BE BLOODY FOR A FEW DAYS AFTER SURGERY. ?IF THIS HAPPENS JUST PLACE NEW DRESSING OVER IT TO AVOID STAINING CLOTHES. You may shower on post op day # 1 We ask that you do not let the water soak the wound. If it does get wet, just towel dry lightly. Please do not scrub your incision or place any type of chemical/ointment on the wound. No tub baths, pools or jacuzzis for one month. If you have any leaking or redness from your wound, or fevers, please call office Print Language: Upper Sorbian
[2024-10-02] MEDS: vancomycin HCL 1,500 MG in 0.9 % Sodium Chloride 500 ML 333.33 MG IV (07:25)
[2024-10-02] MEDS: methocarbamoL 750 MG TABLET PO (07:31)
[2024-10-02] MEDS: Gabapentin 300 MG CAPSULE PO (07:32)
[2024-10-02 07:34] LABS: Anion Gap 11 (12-20); Carbon Dioxide 28 mmol/L (22-29); Chloride 105 mmol/L (96-108); Potassium 5.1 mmol/L (3.3-5.1); Sodium 139 mmol/L (135-145)
[2024-10-02] MEDS: Lactated Ringers 1,000 ML 100 ML IVCONT (07:37)
--- NOTE | 2024-10-02 08:13 | HO.ANESPROP2 ---
[facility] Active Problems Active Problems: All Active Problems Anxiety (Acute) Well woman exam (Acute) Lung consolidation (Acute) Pleural effusion, left (Acute) Lumbar radiculopathy (Acute) Mediastinal mass (Acute) Chronic pain syndrome (Acute) Chronic idiopathic constipation (Acute) Achalasia (Acute) Tinnitus, bilateral (Acute) Cervical cancer screening (Acute) Fibromyalgia (Acute) Low back pain (Acute) Urinary incontinence (Acute) Dysphagia (Acute) Thrombophlebitis of right leg (Acute) Low back pain with right-sided sciatica (Acute) Trochanteric bursitis, right hip (Acute) Primary osteoarthritis of right knee (Acute) Sjogrens syndrome (Acute) Osteopenia (Acute) S/P thymectomy (Acute 03/13/24) Osteoarthritis of right knee (Acute) BPV (benign positional vertigo) (Acute) Gait instability (Acute) Cervicogenic headache (Acute) Cervicalgia (Acute) Vertigo (Acute) Raynauds disease (Acute) Chronic kidney disease, stage III (moderate) (Acute) Obesity (BMI 30-39.9) (Acute) Benign essential hypertension (Acute) GERD without esophagitis (Acute) Acquired hypothyroidism (Acute) Lumbar spondylosis (Acute) Post laminectomy syndrome (Acute) PAC (premature atrial contraction) (Acute) Past Medical History Medical History Ambulates with cane Difficulty swallowing Osteoarthritis of right knee BPV (benign positional vertigo) Gait instability Cervicogenic headache Cervicalgia Vertigo Chronic kidney disease, stage III (moderate) Obesity (BMI 30-39.9) Gastritis Benign essential hypertension GERD without esophagitis Acquired hypothyroidism Constipation Lumbar spondylosis Post laminectomy syndrome Connective tissue disease Interstitial lung disease Osteopenia PAC (premature atrial contraction) Sjogrens syndrome Hypothyroid Breast cancer Raynauds disease SAMARA positive Functional capacity: uses cane/walker Family History Family History Father Emphysema of lung Cancer Brother Emphysema of lung Mother Bone cancer Son PONV (postoperative nausea and vomiting) Other Arthritis Family history of problems with anesthesia: No Surgical History Surgical History (Updated 09/24/24 @ 12:05 by Ashely Peters RN) History of video-assisted thoracoscopic surgery (VATS) (03/13/24) 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) Hx of colonoscopy Hx of tubal ligation H/O varicose vein stripping History of cataract surgery H/O lumpectomy Hx of cholecystectomy History of back surgery History of Problems with Anesthesia: No Social History Social History Household Members: Significant Other and Children Housing: Apartment Are you a primary reproductive healthcare assistant to a significant other at home: No Do you presently have visiting nurse or other home services: Yes ([employer] 4 days a week, 2.5 hours) Alcohol intake: never Comment: pt reports this is her baseline pain Patient Tobacco Use Status: Never used Tobacco e-Cigarette/Vaping Use: Never Used Second Hand Smoke Exposure: No Use of substances other than those prescribed or required for medical reasons: No Have you been hit, kicked, punched, or otherwise hurt by someone within the past year? If so, by whom?: No Are you DNR?: No Advance Directives: No Advance Directives Information Provided: Yes Advance Directives on File: No Patient : No service: No Current occupational status: retired Cognitive needs: No Hearing needs: No Vision needs: Yes (Glasses) Meds Allergies Allergy/AdvReac Type Severity Reaction Status Date / Time Penicillins [PENICILLINS] Allergy Intermediate rash Verified 08/29/24 10:36 senna Allergy Intermediate rash Verified 08/29/24 10:36 Active Medications: Current Medications Lactated Ringer's (Lr) 1,000 mls @ 100 mls/hr IVCONT .Q10H MARYA Last Admin: 10/02/24 07:37 Dose: 100 mls/hr Vancomycin HCl 1,500 mg/ (Sodium Chloride) 500 mls @ 333.333 mls/hr IV ONCE ONE Stop: 10/02/24 08:36 Last Admin: 10/02/24 07:25 Dose: 333.33 mls/hr Home Medications ?Medication ?Instructions ?Recorded ?Confirmed ?Last Taken ?Type multivitamin 1 tab PO DAILY 11/15/20 10/02/24 1 Day Ago History ~10/01/24 calcitriol 0.5 mcg capsule 1 mcg PO WE@1645 01/10/23 10/02/24 1 Day Ago History ~10/01/24 Exam Height,Weight and Vital Signs: Height 5 ft 10 in Weight 102.512 kg Last Vital Signs Pulse 59 09/24/24 11:49 Resp 16 09/24/24 11:49 BP 127/60 09/24/24 11:49 Pulse Ox 99 09/24/24 11:49 O2 Del Method Room Air 09/24/24 11:49 Pertinent Lab Results Pertinent Lab Results: Laboratory Tests 09/24/24 10/02/24 12:35 07:13 Sodium 138 139 Potassium 5.4 H 5.1 Chloride 102 105 Carbon Dioxide 29 28 Anion Gap 12 11 L Airway Mallampati Class: I TM Dist: >3cm Neck ROM: Full Assessment and Plan Assessment Anesthesia Assessment: Anesthesia Plan Discussed and Chart Reviewed Final Anesthetic Review Family History of Problems with Anesthesia: No History of Problems with Anesthesia: No NPO: Yes ASA Class: III Final Preanesthetic Review: No Changes in Pt Med Stat, Meds/Allgs Chart Reviewed, Consent Obtained/Reviewed and Anes Risks/Benef Reviewed Patient Risk: Intermediate Procedure Risk: Intermediate Anesthetic Plan Anesthetic Plan: GA Disposition: Standard PACU
[2024-10-02] MEDS: Acetaminophen 1,000 MG/100 ML PIGGYBACK 400 MG IV (09:30)
--- NOTE | 2024-10-02 09:30 | W.PM.OPN ---
Operative Note Operative Note Date of Service: 10/02/24 Narrative: Preoperative Diagnosis: L2-3 Spinal stenosis/lateral recess stenosis/neural foraminal stenosis Operation: Right L2-3 Laminotomy, Partial facetectomy and foraminotomy with use of microscope Consent Informed Consent was obtained for this operation. I have explained the nature, purpose and benefits of the operation. I have discussed the risks and benefit of the operation including possible complications or adverse events with patient/family. Alternative(s) were discussed with the patient with their relative benefits and risks as well as the consequences of not accepting the operation were included in obtaining consent. Surgeon: MARTHA HERNANDEZ MD, PHD Procedure Assisted By: priya Saldana Description of Procedure This 79-year-old female suffering from right thigh pain. MRI shows severe spinal stenosis L2-3. The patient was offered a decompression of the nervous structures on the right side. The procedure complications were explained. The patient was consented. The patient was brought to the operating room and endotracheally intubated. The patient was turned in prone position on the Irchie frame. Prep and drape was done followed by timeout. Physician mortgage loan assistant provided access. A mid lumbar incision was made followed by release of the paravertebral muscle on the right side to expose the right L2-3 lamina and facet joint. An intraoperative x-ray was obtained to confirm the correct level. The microscope was brought in. I took over the procedure. The high-speed drill was used to do a right L2 laminotomy. #2 Kerrison was used to further remove the lamina towards the L3 foramen. With a nerve hook the medial wall of the L3 pedicle was palpated as well as the beginning of the L3 foramen. The facet joint was partially drilled down after which with a #2 Kerrison the laminotomy was extended near flushed with the pedicle. Significant hypertrophied flavum ligament was resected further to decompress the thecal sac and exiting L3 nerve root. A long nerve hook could be easily passed along the trajectory of the nerve root. The microscope was removed. Hemostasis was done. Incision was closed in 2 layers. Steri-Strips were used to approximate incision. An OpSite with Tegaderm was used to cover the incision. All sponge needle counts were correct. Patient was extubated and transported in stable is to recovery room. Anesthesia: General Estimated Blood Loss (ml): Minimal Duration of Surgery: Under 60 Minutes Postoperative Plan: Discharge to home
[2024-10-02] MEDS: fentaNYL citrate/PF 100 MCG/2 ML VIAL 50 MCG IVPUSH ×3 (10:25→11:10)
[2024-10-02] MEDS: oxyCODONE HCl Immed Release 5 MG TABLET PO (11:00)
== END 2024-10-02 13:17 | disposition home or self-care (01) ==
PROVIDERS: Nurse Practitioner; PCP Internal Medicine; Visit Provider Neurological Surgery
PROC: (CPT 63047; principal; 2024-10-02 08:30)
DX: M48.061 Spinal stenosis, lumbar region without neurogenic claudication (principal); M54.16 Radiculopathy, lumbar region; G89.29 Other chronic pain; M54.50 Low back pain, unspecified; M79.651 Pain in right thigh; I12.9 Hypertensive chronic kidney disease with stage 1 through stage 4 chronic kidney disease, or unspecified chronic kidney disease; N18.9 Chronic kidney disease, unspecified; M35.00 Sjogren syndrome, unspecified; M19.90 Unspecified osteoarthritis, unspecified site; M85.80 Other specified disorders of bone density and structure, unspecified site; I49.1 Atrial premature depolarization; K21.9 Gastro-esophageal reflux disease without esophagitis; E03.9 Hypothyroidism, unspecified; Z79.899 Other long term (current) drug therapy; Z99.89 Dependence on other enabling machines and devices; Z88.0 Allergy status to penicillin; Z88.8 Allergy status to other drugs, medicaments and biological substances
CPT/HCPCS: 63047; 36415; 80051; J0131; J1100; J2003; J2250; J2405; J2704; J3010; J3371

== ENCOUNTER → 2024-10-02 06:28 | Outpatient (BNV) | payer OTHER, SELFPAY | PROVIDERS: PCP Internal Medicine; Visit Provider Neurological Surgery | DX: M54.16 Radiculopathy, lumbar region (principal) | CPT/HCPCS: 63047; 99499 ==

== ENCOUNTER → 2024-10-07 10:10 | Outpatient (BNV) | payer OTHER, SELFPAY | PROVIDERS: Emergency Provider Emergency Medicine Emergency Medical Services; Visit Provider Physician Assistant | DX: Z48.89 Encounter for other specified surgical aftercare (principal) | CPT/HCPCS: 99024 ==

== ENCOUNTER 2024-10-07 10:16 | Emergency (ER) | payer OTHER, SELFPAY ==
[2024-10-07] VITALS (10 sets, daily range): BP systolic 105–135; BP diastolic 37–86; PULSE 69–96; RESP 18; TEMP 36.7–37.2; O2SAT 95–100; BMI 32.0
--- NOTE | ~2024-10-07 | XR_ITS ---
EXAMINATION: XR KNEE, LEFT CLINICAL INFORMATION: pain COMPARISON: August 14, 2018. TECHNIQUE: AP and lateral views of the left knee. FINDINGS: Osteopenia versus osteoporosis. Joint space narrowing involving the medial lateral compartment. Chondrocalcinosis in the medial and lateral compartments/menisci. Exostosis in the posterior superior patella. Joint effusion, moderate volume. No acute cortical disruption or malalignment. No lytic or blastic lesions. XR/XR knee LT 2V IMPRESSION: Consider CPPD. Osteopenia versus osteoporosis. Mild tricompartmental osteoarthrosis. Suprapatellar bursa joint effusion. Electronically signed by: Peña Reis MD 10/07/2024 12:11 PM EDT
--- NOTE | ~2024-10-07 | US_ITS ---
EXAMINATION: US TRIPLEX LOWER EXTREMITY, LEFT CLINICAL INFORMATION: Left leg edema and pain. COMPARISON: None available. TECHNIQUE: Color-flow triplex imaging with spectral analysis and compression Doppler were performed on the left lower extremity. FINDINGS: Respiratory variation, normal compression and augmented flow are noted throughout the left lower extremity. The visualized common femoral vein, superficial femoral vein, profunda femoral vein, popliteal vein and midcalf peroneal and posterior tibial venous segments show no evidence of deep venous thrombosis. There is no Chavez's cyst. US/US venous duplex LE LT IMPRESSION: No evidence of deep venous thrombosis involving the left lower extremity. Electronically signed by: Moi Cast MD 10/07/2024 12:37 PM EDT
--- NOTE | ~2024-10-07 | XR_ITS ---
EXAMINATION: XR HIP, LEFT CLINICAL INFORMATION: pain COMPARISON: No priors are available on PACS system. TECHNIQUE: AP and cross lateral view of the left hip. AP view pelvis. FINDINGS: Subchondral cyst formation and sclerosis along the articular surface of the right and to a lesser extent left coxofemoral joint. Joint space narrowing, right hip. Mild asymmetric joint space narrowing, left hip. Bony pelvis is intact. Multilevel lower lumbar spondylosis. Limited cross lateral view of the left hip. No acute cortical disruption or gross malalignment. Unable to evaluate properly the femoral neck. No acute cortical disruption within the indeterminate the region of the left femur. XR/XR hip LT min 2V IMPRESSION: Moderate osteoarthrosis, left hip. Moderate to severe osteoarthrosis, right hip. No gross acute fracture or dislocation. Electronically signed by: Peña Reis MD 10/07/2024 12:14 PM EDT
--- NOTE | 2024-10-07 11:29 | ED_ITS ---
HPI - General Adult General Chief complaint: General Medical Stated complaint: BLE PAIN/SWELLING S/O BACK SURGERY 10/02 PER EMS Time Seen by Provider: 10/07/24 11:02 History of Present Illness HPI narrative: Right L2-3 Laminotomy, Partial facetectomy and foraminotomy on 10/02. This 79-year-old female suffering from right thigh pain. MRI shows severe spinal stenosis L2-3. The patient was offered a decompression of the nervous structures on the right side. Patient presented today with having pain to the left lower extremity. There is no fever no chills. There is no chest pain there is no shortness of breath there is no diaphoresis unable to bear weight due to the pain over the left knee area. There is swelling noted in the area. Patient is from home. Not on blood thinners. No discharge from the wound noted per patient. History of hypertension. History of back pain. Related Data Home Medications ?Medication ?Instructions ?Recorded ?Confirmed multivitamin 1 tab PO DAILY 11/15/2009/21 calcitriol 0.5 mcg capsule 1 mcg PO WE@1645 01/10/23 0 10/07/24 gabapentin 100 mg capsule 300 mg PO DAILY 10/08/24 Previous Rx's ?Medication ?Instructions ?Recorded Commode #1 ea 05/11/22 cane #1 ea 02/01/23 DISPOSABLE BED PADS #30 ea 07/12/23 DISPOSABLE GLOVES - LARGE (1 #1 ea 07/12/23 box/month) FEMININE PADS #6 ea 10/01/23 MEDICATED INCONTINENCE WIPES #100 ea 10/01/23 carvedilol 12.5 mg tablet 12.5 mg PO BID 90 days #180 tabs 11/27/23 ROLLATOR #1 ea 02/04/24 omeprazole 40 mg capsule,delayed 40 mg PO DAILY@0630 # 90 caps 05/17/24 release pregabalin 75 mg capsule 75 mg PO BEDTIME 90 days #90 caps 08/19/24 ROLLATOR #1 ea 08/21/24 amlodipine 10 mg tablet 10 mg PO DAILY 90 days #90 t abs 08/21/24 bisacodyl 5 mg tablet,delayed 5 mg PO BEDTIME 90 days #90 tabs 08/21/24 release levothyroxine 125 mcg tablet 125 mcg PO DAILY@0600 #90 tabs 09/26/24 docusate sodium 100 mg capsule 100 mg PO BID #20 caps 10/02/24 (Colace) oxycodone 5 mg tablet 5 mg PO Q6H PRN pain #20 tab s 10/02/24 methocarbamol 500 mg tablet 500 mg PO Q8H #30 tabs Allergies Allergy/AdvReac Type Severity Reaction Status Date / Time Penicillins (PENICILLINS) Allergy Intermediate rash Verified 10/07/24 10:33 senna Allergy Intermediate rash Verified 10/07/24 10:33 Review of Systems 2 Review of Systems: Positive back pain. Positive pain to the left lower extremity PMFSH Past Medical History Attestation statement: The following information was validated with the patient. Medical History Ambulates with cane Difficulty swallowing Osteoarthritis of right knee BPV (benign positional vertigo) Gait instability Cervicogenic headache Cervicalgia Vertigo Chronic kidney disease, stage III (moderate) Obesity (BMI 30-39.9) Gastritis Benign essential hypertension GERD without esophagitis Acquired hypothyroidism Constipation Lumbar spondylosis Post laminectomy syndrome Connective tissue disease Interstitial lung disease Osteopenia PAC (premature atrial contraction) Sjogrens syndrome Hypothyroid Breast cancer Raynauds disease SAMARA positive Surgical History History of video-assisted thoracoscopic surgery (VATS) (03/13/24) 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) Hx of colonoscopy Hx of tubal ligation H/O varicose vein stripping History of cataract surgery H/O lumpectomy Hx of cholecystectomy History of back surgery Family History Family History Father Emphysema of lung Cancer Brother Emphysema of lung Mother Bone cancer Son PONV (postoperative nausea and vomiting) Other Arthritis Social History Social History Household Members: Significant Other and Children Housing: Apartment Are you a primary care asst to a significant other at home: No Do you presently have visiting nurse or other home services: Yes (ATTENUATOR 4 days a week, 2.5 hours) Alcohol intake: never Comment: pt reports this is her baseline pain Patient Tobacco Use Status: Never used Tobacco Smoked in Last 30 Days: No e-Cigarette/Vaping Use: Never Used Second Hand Smoke Exposure: No Use of substances other than those prescribed or required for medical reasons: No Advance Directives: No Advance Directives Information Provided: Yes Do you have a plan to hurt others: No Plan service: No Current occupational status: retired Cognitive needs: No Hearing needs: No Vision needs: Yes (Glasses) Physical Exam ED Vital Signs: Vital Signs - 24 hr 10/08/24 12:00 10/08/24 16:00 10/08/24 19:59 Temperature 98.4 F 97.6 F 100.3 F Pulse Rate 78 83 80 Respiratory Rate 16 17 20 Blood Pressure 112/50 L 124/53 L 120/55 L Pulse Oximetry 94 93 95 Oxygen Delivery Method Room Air Room Air Room Air 10/09/24 06:25 10/09/24 08:24 10/09/24 08:26 Temperature 98.6 F 98.2 F Pulse Rate 60 69 Respiratory Rate 18 17 Blood Pressure 106/52 L 122/62 Pulse Oximetry 97 95 Oxygen Delivery Method Room Air Room Air 10/09/24 08:27 Temperature 98.2 F Pulse Rate 69 Respiratory Rate 17 Blood Pressure 122/62 Pulse Oximetry Oxygen Delivery Method BMI result Body Mass Index 32.0 Appearance: Alert. Oriented X3. No acute distress. Eyes: Pupils equal, round and reactive to light. ENT: Pharynx normal. Neck: Normal inspection. Neck supple. No lymph nodes noted. No crepitus CVS: Normal heart rate and rhythm. Pulses normal. Normal S1 and S2 Respiratory: No respiratory distress. Breath sounds normal. No Wheezing. No rales Abdomen: Soft and nontender. No rigidity. No distention. good BS x4 Skin: Skin warm and dry. Normal skin color. Normal skin turgor. Extremities: Positive left lower extremity swelling. There is mild pain on palpation of the area right above the knee. There is swelling in that area. There is no patellar tenderness. No gross joint effusion noted. More distally there is good sensation. There is good movement of the ankle. There is good movement of the toes. There is good pulses distally. Skin is grossly intact. Neuro: Oriented X 3. No motor deficit. No sensory deficit. Moving all extermities. No slurred speech Course Course Course Narrative: 10/08/24 10:13 FREDIS Hamilton: Physician observation continued, nurse reporting that patient feels urge to urinate but has been unable to go. Bladder scan ordered. 10/08/24 1302 FREDIS Hamilton: Patient was straight cathed as bladder scan >400mLs, but this was discontinued midway through procedure as patient stating that she felt she would be able to urinate if she was assisted up to a commode. Patient assisted to commode, but was not able to urinate or have bowel movement. Reached out to Pernell Martins neurosurg LANA to discuss. He notes that patient should be on oxycodone 5 mg Q 4-6 hours for pain. Patient has not had any oxycodone today, only Tylenol and Robaxin. Will order oxycodone as well as enema as patient has not had bowel movement and this may be causing her urinary retention or she may also not be urinating due to pain. 10/08/24 1730 FREDIS Hamilton: Patient medicated with oxycodone and given enema. Still has not urinated independently or had bowel movement. Case discussed with Dr. Lujan, hospitalist, who recommends placement of indwelling urinary catheter [facility], can have voiding trial there, feels her urinary retention is likely due to recent surgery. Unfortunately, patient unable to be transferred to [facility] if she has not had a bowel movement within the last 3 days. Constipation possibly due to oxycodone. Will observe overnight for independent voiding/BM and decision will be made in the am to admit/transfer. 10/09/2024 0800 Sondra Dobbs PA-C: Confirmed the patient had a bowel movement. Patient cleared to go to [facility]. Observation care revealed the the patient does not meet medical necessity for hospitalization. Final disposition discussed with the patient who verbalized understanding and agreement. Patient completed observation care at 0800 on 10/09/2024, total time spent in observation care was 1 day, 18 hours, and 46 minutes. Reevaluation(s) Reevaluation #1: I Cherri Espinoza have accepted care of the patient at signed out to monitor if she urinates and has a bowel movement. The patient has had to be straight catheterized, she continues to retain urine. An enema was given, she had minimal bowel movement. I performed a rectal exam, the patient required disimpaction. Reevaluation #2: [facility], the patient is still has not voided since her disimpaction, we will place a Espinoza. The patient can now be discharged tomorrow to a SNF with her Espinoza. Medications Administered Generic Name Dose Route Start Last Admin Trade Name Freq PRN Reason Stop Dose Admin Amlodipine Besylate 10 mg 10/08/24 09:00 10/09/24 08:31 Amlodipine Besylate 10 Mg Tablet PO 10 mg DAILY MARYA Administration Protocol Bisacodyl 5 mg 10/07/24 21:00 10/08/24 20:20 Bisacodyl 5 Mg Tablet.Dr PO 5 mg BEDTIME MARYA Administration Calcitriol 1 mcg 10/08/24 16:45 10/08/24 17:56 Calcitriol 0.25 Mcg Capsule PO 1 mcg WE@1645 MARYA Administration Carvedilol 12.5 mg 10/07/24 21:00 10/09/24 08:31 Carvedilol 12.5 Mg Tablet PO 12.5 mg BID MARYA Administration Protocol Docusate Sodium 100 mg 10/07/24 21:00 10/09/24 08:31 Docusate Sodium 100 Mg Capsule PO 100 mg BID MARYA Administration Gabapentin 300 mg 10/08/24 17:45 10/09/24 08:31 Gabapentin 300 Mg Capsule PO 300 mg DAILY MARYA Administration Levothyroxine Sodium 125 mcg 10/08/24 06:00 10/09/24 06:11 Levothyroxine Sodium 125 Mcg Tablet PO 125 mcg DAILY@0600 MARYA Administration Methocarbamol 500 mg 10/07/24 21:00 10/08/24 20:20 Methocarbamol 500 Mg Tablet PO 500 mg TID MARYA Administration Multivitamins/Vitamin C 1 tab 10/08/24 09:00 10/09/24 08:31 Multivitamin Tablet PO 1 tab DAILY MARYA Administration Omeprazole 40 mg 10/08/24 06:30 10/09/24 06:11 Omeprazole 40 Mg Capsule. PO 40 mg DAILY@0630 MARYA Administration Oxycodone HCl 5 mg 10/08/24 17:43 10/09/24 08:43 Oxycodone Hcl Immed Release 5 Mg Tablet PO 5 mg Q6H PRN Administration Pain, Severe (Pain Scale 7-10) Discontinued Medications Generic Name Dose Route Start Last Admin Trade Name Conchis PRN Reason Stop Dose Admin Acetaminophen 650 mg 10/08/24 06:04 10/08/24 06:11 Acetaminophen 325 Mg Tablet PO 10/08/24 06:05 650 mg ONCE ONE Administration Hydromorphone HCl 0.5 mg 10/07/24 12:18 10/07/24 12:21 Hydromorphone Hcl 0.5 Mg/0.5 Ml Syringe IVPUSH 10/07/24 12:19 0.5 mg ONCE ONE Administration Protocol Hydromorphone HCl 0.5 mg 10/07/24 16:06 10/07/24 16:16 Hydromorphone Hcl 0.5 Mg/0.5 Ml Syringe IVPUSH 10/07/24 16:07 0.5 mg ONCE ONE Administration Protocol Oxycodone HCl 5 mg 10/08/24 12:59 10/08/24 13:05 Oxycodone Hcl Immed Release 5 Mg Tablet PO 10/08/24 13:00 5 mg ONCE ONE Administration Medical Decision Making Medical Decision Making [facility] Narrative: Patient is 79 years old had a history of back surgery recently. Patient was evaluated by spine. Seymour this is not related. Complaining of pain down to the leg on the left side. Doppler of the left lower extremity showed no acute evidence of PVT. X-ray of the hip x-ray of the knee was grossly negative for any acute evidence of fracture. Physical therapy evaluated the patient felt patient needs additional help recommend the patient to be in a rehab unit. Case management was consulted. Patient's medication ordered. Because it is after 16:00. Can only be placed tomorrow. Currently in no distress. Differential Diagnosis Differential Diagnoses: The differential diagnosis associated with the presentation includes Back pain Admission/Observation Consideration of admission/observation: Escalation of care including admission/observation considered Consult Healthcare Provider Management of the patient was discussed with: Hand Stemmer (Neurosurgery) Lab Data [facility] Lab Attestation statement: I reviewed the patient's lab results. 10/07/24 12:12 10/07/24 12:12 Labs: Lab Results 10/07/24 10/07/24 10/07/24 Range/Units 12:12 14:43 20:32 WBC 11.8 H (4.8-10.8) X10*3/uL RBC 3.28 L D (4.20-5.50) X10*6/uL Hgb 9.4 L D (12.0-16.0) g/dl Hct 28.4 L D (37.0-47.0) % MCV 86.6 (80.0-98.0) fL MCH 28.7 (27.0-33.0) pg MCHC 33.1 (31.0-35.0) g/dl RDW 13.2 (11.0-16.0) % Plt Count 209 (160-400) X10*3/uL MPV 10.5 (9.4-12.3) fL Immature Gran % (Auto) 0.7 H (0.0-0.4) % Neut % (Auto) 83.1 H (45-73) % Lymph % (Auto) 5.4 L (20-40) % Thomas % (Auto) 10.5 (2-11) % Eos % (Auto) 0.1 (0-4) % Baso % (Auto) 0.2 (0-2) % Lymph # (Auto) 0.6 L (1.2-4.9) X10*3/uL Thomas # (Auto) 1.2 (0.1-1.2) X10*3/uL Eos # (Auto) 0.0 (0.0-0.4) X10*3/uL Baso # (Auto) 0.0 (0.0-0.2) X10*3/uL Abs Immat Gran (auto) 0.08 H (0.00-0.03) X10*3/uL Absolute Neuts (auto) 9.8 H (2.0-8.3) x10*3/uL Absolute Nucleated RBC 0.000 (0.0-0.012) X10*3/uL Nucleated RBC % (auto) 0.0 (0.0-0.2) /100WBC APTT 37.8 H (26.0-36.8) SEC Sodium 139 (135-145) mmol/L Potassium 4.5 (3.3-5.1) mmol/L Chloride 104 (96-108) mmol/L Carbon Dioxide 26 (22-29) mmol/L Anion Gap 14 (12-20) BUN 34 H (9-16) mg/dL Creatinine 1.15 (0.5-1.4) mg/dL Estim Creat Clear Calc 50.9 Estimated GFR 45 Random Glucose 126 H (60-115) mg/dL Calcium 9.3 D (8.4-10.2) mg/dL Total Bilirubin 0.7 (0.0-1.0) mg/dL Direct Bilirubin 0.3 (0.0-0.5) mg/dL AST 69 H (5-31) U/L ALT 45 H (0-31) U/L Alkaline Phosphatase 77 (39-117) U/L B-Natriuretic Peptide 348 H (<100) pg/mL Total Protein 7.2 (6.5-8.0) g/dL Albumin 3.5 (3.5-5.0) g/dL Urine Color Yellow Urine Appearance Clear Urine pH 5.5 (5.0-9.0) Ur Specific Ulysses 1.020 (1.005-1.025) Urine Protein 30 (1+) H (Neg-Trace) mg/dL Urine Glucose (UA) Negative (Negative) mg/dL Urine Ketones Negative (Negative) mg/dL Urine Blood Negative (Negative) Urine Nitrite Negative (Negative) Ur Leukocyte Esterase Negative (Negative) Urine RBC 0-2 (0-2) /HPF Urine WBC 0-5 (0-5) /HPF Ur Squamous Epith Cells 0-2 (0-2) /HPF Urine Bacteria None Seen (None Seen) Hyaline Casts 3-5 (0-2) /LPF Influenza Type A (PCR) NEGATIVE (Negative) Influenza Type B (PCR) NEGATIVE (Negative) RSV RNA Qual (PCR) NEGATIVE (Negative) SARS-CoV-2 RNA (RT-PCR) NEGATIVE (Negative) Independent Interpretation I performed an independent interpretation of an: Plain X-Ray Radiology Impression Discussion of test interpretation with radiology: I have reviewed the radiologist's reading. External Record Review External record reviewed: Inpatient record Previous surgical record reviewed Chronic Conditions History of back pain Discharge Plan Discharge Clinical Impression: Back pain, Acute pain of left lower extremity Patient Disposition: Xfer SNF Transfer Details: [facility] Prescriptions: No Action (DME) Commode See Rx Instructions .Route .MEDSUPPLY Qty: 1 0RF Rx Instructions: As directed (DME) DISPOSABLE GLOVES - LARGE (1 box/month) LARGE See Rx Instructions .Route .MEDSUPPLY Qty: 1 5RF Rx Instructions: Use as directed (DME) DISPOSABLE BED PADS See Rx Instructions .Route .MEDSUPPLY Qty: 30 5RF Rx Instructions: Use as directed ONCE A DAY carvedilol 12.5 mg tablet 12.5 mg PO BID 90 Days Qty: 180 3RF omeprazole 40 mg capsule,delayed release(DR/EC) 40 mg PO DAILY@0630 Qty: 90 1RF Rx Instructions: TAKE 1 CAPSULE BY MOUTH EVERY DAY bisacodyl 5 mg tablet,delayed release (DR/EC) 5 mg PO BEDTIME 90 Days Qty: 90 1RF (DME) ROLLATOR See Rx Instructions .Route .MEDSUPPLY Qty: 1 0RF Rx Instructions: As directed amlodipine 10 mg tablet 10 mg PO DAILY 90 Days Qty: 90 3RF Rx Instructions: Has been taking 10mg for a while now. levothyroxine 125 mcg tablet 125 mcg PO DAILY@0600 Qty: 90 1RF methocarbamol 500 mg tablet 500 mg PO Q8H Qty: 30 0RF docusate sodium [Colace] 100 mg capsule 100 mg PO BID Qty: 20 0RF oxycodone 5 mg tablet 5 mg PO Q6H PRN (Reason: pain) Qty: 20 0RF Rx Instructions: Partial Fill upon patient request. gabapentin 100 mg capsule 300 mg PO DAILY (DME) FEMININE PADS See Rx Instructions .Route .MEDSUPPLY Qty: 6 12RF Rx Instructions: As directed (DME) MEDICATED INCONTINENCE WIPES See Rx Instructions .Route .MEDSUPPLY Qty: 100 12RF Rx Instructions: As directed multivitamin Tablet 1 tab PO DAILY calcitriol 0.5 mcg capsule 1 mcg PO WE@1645 Rx Instructions: 1 mcg orally weekly; administer after dialysis on dialysis days (DME) cane Device See Rx Instructions .Route Qty: 1 0RF Rx Instructions: As directed - use when walking pregabalin 75 mg capsule 75 mg PO BEDTIME 90 Days Qty: 90 1RF Patient Comments: pt. states not taking medication (DME) ROLLATOR See Rx Instructions .Route .MEDSUPPLY Qty: 1 0RF Rx Instructions: As directed Referrals: Erica Bailey [Outside] Referral Note: [address] [place] [address] Interventions: ED Discharge Assessment Last Done: 10/09/24 08:27 Print Language: Uruguayan
--- NOTE | 2024-10-07 11:46 | HO.NEUROPN_ITS ---
Neurosurgery Operative Note Date of Service: 10/07/24 Narrative: Operation: Right L2-3 Laminotomy, Partial facetectomy and foraminotomy POD: 5 Jacinda is a pleasant 79 year old female who underwent L2-[address] Alexis on 10/02/24. She presented to the ED via EMS this morning for worsening bilateral lower extremity pain, and inability to ambulate since surgery. She reports that she has had worsening of her R sided anterior / lateral thigh pain since surgery, and also reports that she had some baseline left medial thigh pain that seems to have worsened since the surgery as well. In addition to this since yesterday she developed a edematous area above the left anterior knee, and reports fairly significant pain to touch over this area. She has attempted to utilize the Oxycodone 5mg that we sent in for after surgery, however feel as this is not helping get her pain under control enough to mobilize. Her daughter accompanies her to the ED today who also reports Ms. Blancas has been out of it and having trouble returning to her cognitive baseline since the surgery. She is unsure if this is related to her pain medication. On examination the patient is well appearing in no acute distress lying in hospital bed 14 in the ED. She is conversant and able to express her concerns clearly with the aid of a habitat management coordinator. She has maintained 5/5 strength with dorsiflexion / plantar flexion bilaterally, but is unable to lift her leg off of the examination table against gravity, and reports that it hurts too much to do so. Her Op-site bandage remained in place when examining her back, so I removed it to evaluate her incision. The incision is well approximated, clean, and dry with no notable erythema or edema. No drainage. Jacinda is a pleasant 79 year old female presenting to the emergency department today on POD:5 after L2-3 lumbar decompression. She is overall well appearing in NAD, but does elicit pain to even passive movement of her lower extremities. I spoke with Dr. Hancock who is overseeing her care in the ED at the moment. He is going to order her some basic labs, a knee/hip XR, and an ultrasound of the bilateral lower extremities. In the absence of an acute process such as DVT, I believe this patient would most benefit from a residential rehab transfer. She is likely suffering from some fairly significant postoperative inflammation, and would benefit from daily PT and nursing evaluation / care. She needs to mobilize and get her pain under control in a safe setting where she can be assisted regularly until she is back to baseline. I do not believe any additional spine imaging is of pertinent importance at this time, in the absence of motor deficit that is not pain limited, and profound hypoesthesia. We will discuss further with the ED medical team once her lab work and imaging is complete. This patient's presentation, examination findings, and plan was discussed with the attending Neurosurgeon Dr. Merino who understands and is in agreement. Pernell Merino MD,PhD [facility]
[2024-10-07 12:19] LABS: MANUAL DIFF FLAG NO
[2024-10-07 12:20] LABS: Basophils Percent Auto 0.2 % (0-2); Eosinophils Percent Auto 0.1 % (0-4); Hematocrit 28.4 % (37.0-47.0); Hemoglobin 9.4 g/dl (12.0-16.0); Imm Gran Abs Auto 0.08 X10*3/uL (0.00-0.03); Imm Gran Pct Auto 0.7 % (0.0-0.4); Lymphocytes Absolute Auto 0.6 X10*3/uL (1.2-4.9); Lymphocytes Percent Auto 5.4 % (20-40); Mean Corpuscular HGB Conc 33.1 g/dl (31.0-35.0); Mean Corpuscular Hemoglobin 28.7 pg (27.0-33.0); Mean Corpuscular Volume 86.6 fL (80.0-98.0); Mean Platelet Volume 10.5 fL (9.4-12.3); Monocytes Absolute Auto 1.2 X10*3/uL (0.1-1.2); Monocytes Percent Auto 10.5 % (2-11); Neutrophils Absolute Auto 9.8 x10*3/uL (2.0-8.3); Neutrophils Percent Auto 83.1 % (45-73); Platelet Count 209 X10*3/uL (160-400); Red Blood Count 3.28 X10*6/uL (4.20-5.50); Red Cell Distribution Width 13.2 % (11.0-16.0); White Blood Count 11.8 X10*3/uL (4.8-10.8)
[2024-10-07] MEDS: HYDROmorphone HCl 0.5 MG/0.5 ML SYRINGE IVPUSH ×2 (12:21→16:16)
[2024-10-07 12:32] LABS: Partial Thromboplastin Time 37.8 SEC (26.0-36.8)
[2024-10-07 12:33] LABS: Alanine Aminotransferase 45 U/L (0-31); Albumin Level 3.5 g/dL (3.5-5.0); Alkaline Phosphatase 77 U/L (39-117); Anion Gap 14 (12-20); Aspartate Amino Transferase 69 U/L (5-31); Bilirubin Direct 0.3 mg/dL (0.0-0.5); Bilirubin Total 0.7 mg/dL (0.0-1.0); Blood Urea Nitrogen 34 mg/dL (9-16); Calcium 9.3 mg/dL (8.4-10.2); Carbon Dioxide 26 mmol/L (22-29); Chloride 104 mmol/L (96-108); Creatinine Clr Calc Pharmacy 50.9; Estimated Glomerular Filt Rate 45; Glucose Random 126 mg/dL (60-115); Potassium 4.5 mmol/L (3.3-5.1); Sodium 139 mmol/L (135-145); Total Protein 7.2 g/dL (6.5-8.0)
[2024-10-07 12:38] LABS: B Type Natriuretic Peptide 348 pg/mL (<100)
--- OUTSIDE RECORDS SUMMARY | 2024-10-07 13:50 | XMS_ITS | Encounter Summary ---
Author Organization [facility] Address [address] [place] [address] Phone Care Team Providers Care Drip Molder Name Role Phone Truong Colon MD Primary Care Provider [phone] Encounter Details Date Type Department Care Team (Late Contact Info) Description 08/12/2024 Documentation Only [facility] [address] [place] [address] [place] [address] [place] [id number] Social History Tobacco Use Types Packs/Day [...] [facility] [address] [place] [address] Romero Jimenez MD [address] [place] [address] [place] [address] documented as of this encounter Visit Diagnoses Not on filedocumented in this encounter Care Teams Drip Molder Relationship Specialty Start Date End Date Truong Colon MD [address] [place] [address] PCP - General Internal Medicine 03/06/23 documented as of this encounter
--- NOTE | 2024-10-07 15:33 | MHC.EDTECH ---
pt changed into hospital gown, vitals obtained
[2024-10-07 15:49] LABS: Influenza A PCR NEGATIVE (Negative); Influenza B PCR NEGATIVE (Negative); Resp Syncy Virus RNA Qual PCR NEGATIVE (Negative); SARS COV2 PCR INHOUSE NEGATIVE (Negative)
--- NOTE | 2024-10-07 18:16 | PC.NURSE ---
Informed provider that medication rec. is completed with assistance from daughter., whom is at bedside.
--- NOTE | 2024-10-07 18:50 | MHC.EDTECH ---
pt bladder scanned d/t insufficient urine output. bladder scan measure 467. MD and RN made aware. Pt was advised to try to urinate if possible and if unable to, a catheter may need to be placed according to .
--- NOTE | 2024-10-07 19:34 | PC.NURSE ---
Bladder scan obtained by tech, informed provider, provider informed tech to inform primary RN, that if pt. does not urinated, purewick is in place, pt. may need to be straight cath. Verified medications and the straight cath information with pt. with staff medical photographer january Eddy. aware and okay with cath and certain medications.
[2024-10-07] MEDS: methocarbamoL 500 MG TABLET PO (20:23)
[2024-10-07] MEDS: bisacodyL 5 MG TABLET.DR PO (20:23)
[2024-10-07] MEDS: Docusate Sodium 100 MG CAPSULE PO (20:23)
[2024-10-07 20:46] LABS: Appearance Urine Clear; Color Urine Yellow; Glucose Urine UA Negative (Negative); Leukocyte Esterase Urine Negative (Negative); Nitrite Urine Negative (Negative); PH 5.5 (5.0-9.0); UMIC TRIGGER UACC YES; Urine Blood Negative (Negative); Urine Ketones Negative (Negative); Urine Protein 30 (1+) mg/dL (Neg-Trace)
[2024-10-07 20:48] LABS: Bacteria Urine None Seen (None Seen); RBC Urine 0-2 /HPF (0-2); Squamous Epithelial Cell Urine 0-2 /HPF (0-2); WBC Urine 0-5 /HPF (0-5)
--- NOTE | 2024-10-07 21:14 | PC.NURSE ---
Straight cath urine from providers request, drained 600 of urine and ua sample sent. Notified provider.
--- NOTE | 2024-10-07 21:25 | PC.NURSE ---
Report given to ROGELIO Barros.
[2024-10-08 00:08] VITALS: BP 134/57; PULSE 81; RESP 14; TEMP 36.4; O2SAT 96
--- NOTE | 2024-10-08 02:30 | PC.NURSE ---
Took over care from ROGELIO Harrington, pt placed in hospital bed, pt repositioned for comfort.
[2024-10-08 04:00] VITALS: BP 131/50; PULSE 65; RESP 14; TEMP 36.4; O2SAT 95
[2024-10-08] MEDS: Acetaminophen 325 MG TABLET 650 MG PO (06:11)
[2024-10-08] MEDS: Omeprazole 40 MG CAPSULE.DR PO (06:12)
[2024-10-08] MEDS: Levothyroxine Sodium 125 MCG TABLET PO (06:12)
--- NOTE | 2024-10-08 06:20 | PC.NURSE ---
Medicated per mar, pt repositioned, clean and dry, pure wick in place
[2024-10-08 07:50] VITALS: BP 110/40; PULSE 79; RESP 16; TEMP 36.9; O2SAT 94
--- NOTE | 2024-10-08 08:53 | MHC.CM.ED ---
Patient remains in ER overflow. [facility] is able to offer a bed and is in the process of obtaining ins auth. Continue to monitor for d/c needs.
--- NOTE | 2024-10-08 09:13 | PC.NURSE ---
Report received from ROGELIO Garcia. Taken over care at this time.
[2024-10-08] MEDS: methocarbamoL 500 MG TABLET PO ×3 (09:36→20:20)
[2024-10-08] MEDS: Multivitamin TABLET 1 TAB PO (09:37)
[2024-10-08] MEDS: Docusate Sodium 100 MG CAPSULE PO ×2 (09:37→20:20)
--- NOTE | 2024-10-08 10:19 | PC.NURSE ---
Spoke to Melany provider about pt. unable to urinate and had been cathed last night around 2029. Bladder scan ordered. Will f/u with provider.
--- NOTE | 2024-10-08 11:30 | PHA.MEDREC ---
Pharmacy Consult ? Medication Reconciliation Pharmacy reviewed med rec done by nursing. Spoke with pt and pt daughter at bedside, using shuttle operator (Sherrie Coates) and pt was able to confirm her medications. Pt confirmed she is now taking the Docusate 100mg capsule BID prn instead of QD. Pt and daughter confirmed the pt is not taking the Hydroxyzine anymore due to insurance not covering it anymore, I took that off the med rec. Pt also confirmed she is taking Gabapentin 300mg caps once daily in the morning, that was not on the med rec and looking in claims that was last filled 09/09 for 30 days.
--- NOTE | 2024-10-08 11:37 | PHA.MEDREC ---
Addendum entered by Adri Lantigua RPh 10/08/24 11:54: Reviewed by [facility] Original Note: Pharmacy Consult ? Medication Reconciliation Pharmacy has reviewed the medication reconciliation completed by nurse. Pharmacy spoke with patient and pt daughter at bedside, using product development scientist (Sherrie Coates) to confirm med rec was correct. Pt confirmed she is now taking the Docusate 100mg capsule BID prn instead of QD. Pt and daughter confirmed the pt is not taking the Hydroxyzine anymore due to insurance not covering it anymore, I took that off the med rec. Pt also confirmed she is taking Gabapentin 300mg caps once daily in the morning, I added that since it was not on the med rec and looking in claims that was last filled 09/09 for 30 days. Pt confirmed her Calcitriol 0.5mg cap once a week taken Sundays and confirmed she takes 2 capsules on Sundays. Pt confirmed she is taking the Pregabalin 75mg tab QDHS, I confirmed that since it was left unconfirmed by nursing. Per pt daughter, pt has not had any of her medications since Sunday, I updated that on the med rec.
[2024-10-08 12:00] VITALS: BP 112/50; PULSE 78; RESP 16; TEMP 36.9; O2SAT 94
--- NOTE | 2024-10-08 12:58 | PC.NURSE ---
Per provider Melany, pt. was cath to drain bladder, drained 400 ml of urine, then per provider, attempted to assist pt. to urinate on commode. Pt. was unsuccesful and informed provider of this.
[2024-10-08] MEDS: oxyCODONE HCl Immed Release 5 MG TABLET PO (13:05)
--- NOTE | 2024-10-08 13:50 | PC.NURSE ---
Pt. placed on commode, daughter at bedside.
--- NOTE | 2024-10-08 14:22 | PC.NURSE ---
Pt. unable to provide sample while on commode, pt. daughter does not want pt. to have enema, after talking to provider pt and daughter ookay with enema.
--- NOTE | 2024-10-08 14:36 | PC.NURSE ---
Soap suds enema infusing in pt.
--- NOTE | 2024-10-08 15:11 | PC.NURSE ---
Informed provider Melany that pt. hada small bowel movement prior to starting the enema. Pt. still unable to urinate. Charge made aware.
--- NOTE | 2024-10-08 15:30 | PC.NURSE ---
Report given to Waldo RN, Pt. going to overflow.
[2024-10-08 16:00] VITALS: BP 124/53; PULSE 83; RESP 17; TEMP 36.4; O2SAT 93
[2024-10-08] MEDS: calcitrioL 0.25 MCG CAPSULE 1 MCG PO (17:56)
[2024-10-08] MEDS: Gabapentin 300 MG CAPSULE PO (17:56)
--- NOTE | 2024-10-08 18:36 | PC.NURSE ---
pt on bedpan and attempting to void, also c/o constipation x 1 week, provider notes reviewed and Melany SITE INTERPRETER note at 1730 indicate that a coronado should be placed. coronado will be placed if unable to void
[2024-10-08 19:59] VITALS: BP 120/55; PULSE 80; RESP 20; TEMP 37.9; O2SAT 95
[2024-10-08] MEDS: carvediloL 12.5 MG TABLET PO (20:20)
[2024-10-08] MEDS: bisacodyL 5 MG TABLET.DR PO (20:20)
--- NOTE | 2024-10-09 03:49 | MHC.EVENTN ---
Patient unable to urinate. Patient experiencing issues with constipation, disimpacted by ED provider. Espinoza catheter placed per order obtained. Initially drained 850 ml of yellow urine. Patient sleeping throughout night . Safety measures in place , bed alarm on , call hawkins within reach.
[2024-10-09] MEDS: Levothyroxine Sodium 125 MCG TABLET PO (06:11)
[2024-10-09] MEDS: Omeprazole 40 MG CAPSULE.DR PO (06:11)
[2024-10-09 06:25] VITALS: BP 106/52; PULSE 60; RESP 18; TEMP 37; O2SAT 97
[2024-10-09 08:24] VITALS: BP 122/62; PULSE 69; RESP 17; O2SAT 95
[2024-10-09 08:26] VITALS: TEMP 36.8
[2024-10-09 08:27] VITALS: BP 122/62; PULSE 69; RESP 17; TEMP 36.8
[2024-10-09] MEDS: carvediloL 12.5 MG TABLET PO (08:31)
[2024-10-09] MEDS: Gabapentin 300 MG CAPSULE PO (08:31)
[2024-10-09] MEDS: Docusate Sodium 100 MG CAPSULE PO (08:31)
[2024-10-09] MEDS: Multivitamin TABLET 1 TAB PO (08:31)
[2024-10-09] MEDS: amLODIPine Besylate 10 MG TABLET PO (08:31)
[2024-10-09] MEDS: oxyCODONE HCl Immed Release 5 MG TABLET PO (08:43)
[2024-10-09] MEDS: methocarbamoL 500 MG TABLET PO (09:01)
--- NOTE | 2024-10-09 09:10 | PC.NURSE ---
iv removed. report given to facility. script with EMS. report given to EMS. ecg technician at bedside for assessment and med pass. md was informed of pt's BM yesterday and current pain prior to d/c.
== END 2024-10-09 09:10 | disposition skilled nursing facility (03) ==
PROVIDERS: Emergency Provider Emergency Medicine Emergency Medical Services; PCP Internal Medicine
DX: M79.605 Pain in left leg (principal); M54.9 Dorsalgia, unspecified; M79.89 Other specified soft tissue disorders; R33.9 Retention of urine, unspecified; M48.061 Spinal stenosis, lumbar region without neurogenic claudication; Z03.818 Encounter for observation for suspected exposure to other biological agents ruled out; I10 Essential (primary) hypertension
CPT/HCPCS: 0241U; 36415; 51702; 51798; 73502; 73560; 80048; 80076; 81001; 83880; 85025; 85730; 93971; 96374; 96376; 97162; 97530; 99285; J1171

== ENCOUNTER → 2024-10-07 11:35 | Outpatient (BNV) | payer OTHER, SELFPAY | PROVIDERS: Emergency Provider Emergency Medicine Emergency Medical Services; PCP Internal Medicine; Visit Provider Radiology Diagnostic Radiology | DX: R22.42 Localized swelling, mass and lump, left lower limb (principal); M16.12 Unilateral primary osteoarthritis, left hip; M17.12 Unilateral primary osteoarthritis, left knee | CPT/HCPCS: 73502; 73560; 93971 ==

== ENCOUNTER 2024-10-23 09:22 | Outpatient (AMB) | payer OTHER, SELFPAY ==
--- OUTSIDE RECORDS SUMMARY | 2023-03-07 08:36 | XMS_ITS | Continuity of Care Document ---
Author Organization [facility] Address [address] [place] [address] Phone Care Team Providers Care Well Logging Captain Name Role Phone Amanuel DURAN FACS RVT [...] Providers Copied on Encounter [facility], [address]Jose [place], [id number], [place] tel:[phone] [place] No Information 3 Amanuel DURAN FACS T SIMÓN Pinto. [address] [facility], [address], [place], [address], [place]. [phone] Referring Provider: Truong Colon MD, [address], [place], [address]. tel:[phone] Office/Outpt E&M Established 25 Mins [facility], [address] [place] [address] Dr [address]Jose [place], [id number], [place] tel:[phone] [place] Body mass index (BMI) 34.0-34.9, adultVenous insufficiency (chronic) (peripheral) 3 Amanuel DURAN FACS Yoni Pinto. [address] [place] [address], [place] [address], [place], [address], [place]. [phone] Referring Provider: Truong Colon MD, [address], [place], [address]. 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 [address] [place] [address], [address], [place], [address], [place]. [phone] Referring Provider: Truong Colon MD, [address], [place], [address]. 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 [facility] [facility], [address], [place], [address], [place]. tel:[phone] Referring Provider: Truong Colon MD, [address], [place], [address]. tel:[phone] [place] [facility], [address] [place] [address] [address]Jose [place], [id number], [place] tel:[phone] [place] Encntr for f/u exam aft trtmt for cond oth than malig neoplmVenous insufficiency (chronic) (peripheral) 3 Amanuel DURAN FACS RVT SIMÓN Pinto. [address] [facility], [facility] [address], [place], [address], [place]. [phone] Referring Provider: Truong Colon MD, [address] [place] [address] Dr [address], [place], [address]. 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 [address] [facility], [facility] [address], [place], [address], [place]. [phone] Referring Provider: Truong Colon MD, [address] [place] [address] Dr [address], [place], [address]. 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 [address] [facility], [facility] [address], [place], [address], [place]. tel:[phone] Referring Provider: Truong Colon MD, [address], [place], [address]. tel:[phone] Family History Family Member Type Diagnosis Age At Onset No Information Payers Payer name Insurance type Covered green party ID Josefina haynes(s) [facility] [id number] Social History Type Description Quantity Date Captured [...]
--- NOTE | 2024-10-23 09:29 | HO.SPINEOV ---
Intake Visit Reasons: 1st post op Intake Note: Ms. Blancas is here today for her 1st post op. Financial Associate Required: No Allergies Penicillins (PENICILLINS) Allergy (Intermediate, Verified 10/23/24 09:32) rash senna Allergy (Intermediate, Verified 10/23/24 09:32) rash Assessment & Plan Assessment & Plan (1) Low back pain: Code(s): M54.50 - Low back pain, unspecified Category: Medical Plan Operation: Right L2-3 Laminotomy, Partial facetectomy and foraminotomy Jacinda is a pleasant 79-year-old female who comes in today for her 1st postoperative visit after right-sided L2-3 lumbar decompression completed by Dr. Merino 10/02/24. To recap she had a somewhat complicated postoperative course and presented to the emergency department for worsening pain about 5 days after surgery. She was subsequently discharged to rehabilitation facility for continued pain control, fci services, and physical therapy. She reports that she has done very well since she was transferred to the rehabilitation facility. Over the course of the last week she has been up out of bed, walking around and working with physical therapy. She states that her right lower extremity pain has largely resolved, aside from some intermittent right-sided calf pain. She asked several questions regarding the postoperative healing course, all of which I answered to the best of my ability. No new neurological deficits. The patient was brought in today via big data analytics lead and arrived in a stretcher. Her posterior incision site is closed and well healing. No signs of erythema or drainage. Her bilateral lower extremities have no signs of notable edema pitting her otherwise. There is no change in color of the bilateral lower extremities. No pain elicited to palpation of calf / gastrocnemius. Distal pulses are intact. I would like the patient to follow up with us again in 6 weeks for his 2nd postoperative visit. If she is discharged from her rehabilitation facility before then, she should follow up when discharged. Pernell Merino MD,PhD [facility] Coding Level of Care Code Global (47553) Diagnoses Low back pain M54.50
--- OUTSIDE RECORDS SUMMARY | 2024-10-23 09:39 | XMS_ITS | Patient Health Record ---
Author Organization [facility] [place] Address [address] [facility] [facility] [place] [address] Care Team Providers Care Community Nutrition Educator Name Role Phone Isaiah DURAN, [place] Primary Care Provider Boby Laguerre Unavailable [phone] Allergies Allergen (clinical drug ingredient) Drug/Non Drug [...] t-Taking zzzCompression Stockings 20-30mm Hg . . .; Duration: . Not-Takin g Ammonium Lactate 12 % 1 application to affected area Externally Twice a day to dry areas of skin on feet except between toes; Duration: 30 days 01/24/2024 Active Folic Acid Not-Takin [...] 3 Pair custom heat molded innersoles Wear Daily; Duration: 365 days Active Fluticasone Propionate Not-Taking Flovent [...] Problem Acquired hammer toe of right foot (7511232465307210 ) Other hammer toe(s) (acquired), right foot (M20.41) Active confirmed Response to treatment, Improvemen t Problem Acquired hammer toe of left foot (1169387448554446 ) Other hammer toe(s) (acquired), left foot (M20.42) Active confirmed Response to treatment, Improvemen t Problem Bilateral atherosclerosis of arteries of lower limbs (disorder) (9518201906369213 7) Atherosclerosis of [place] artery of both lower extremities, with unspecified presence of clinical manifestation (I70.203) Active confirmed Vital Signs Blood pressure diastolic 64 mm Hg 07/31/2024 Height 5 ft 9in in 07/31/2024 Blood pressure systolic 127 mm Hg 07/31/2024 Weight 233 lbs 07/31/2024 BMI 34.4 kg/m2 07/31/2024 Procedures Procedure Date Ordered Date Performed Result Body Sit e 76119-IOESTQL NAIL, 6 OR MORE 11/08/2023 N/A 25324-Izdv Destruction, 1-14 11/08/2023 N/A 93424-Wksaadht Plate 11/08/2023 N/A 37211-Ofttsfxg Plate Each Additional 11/08/2023 N/A 07685-DDPJ SKIN LESIONS, OVER 4 11/08/2023 N/A 07313-ENOSQPB NAIL, 6 OR MORE 01/24/2024 N/A 31310-Dyfj Destruction, 1-14 01/24/2024 N/A 02579-QVBF SKIN LESIONS, OVER 4 01/24/2024 N/A 82102-IULRUXO NAIL, 6 OR MORE 05/05/2024 N/A 57061-SBBA SKIN LESIONS, OVER 4 05/05/2024 N/A 64453-APGJQOR NAIL, 6 OR MORE 07/31/2024 N/A 55582-GUPB SKIN LESIONS, OVER 4 07/31/2024 N/A Encounters Encounter Location Date Provider Diagnosis [address] [address] 11/08/2023 Boby Chapman Atherosclerosis of [place] artery of both lower extremities, with unspecified presence of clinical manifestation I70.203 ; Plantar wart B07.0 ; Tinea unguium B35.1 ; Pain in right toe(s) M79.674 ; Pain in left toe(s) M79.675 ; Ingrown nail L60.0 ; Left foot pain M79.672 and Xerosis of skin L85.[address] [address] 01/24/2024 Boby Chapman Atherosclerosis of [place] artery of both lower extremities, with unspecified presence of clinical manifestation I70.203 ; Plantar wart B07.0 ; Tinea unguium B35.1 ; Pain in right toe(s) M79.674 ; Pain in left toe(s) M79.675 ; Left foot pain M79.672 and Xerosis of skin L85.[address] [address] 05/05/2024 Boby Chapman Atherosclerosis of [place] artery of both lower extremities, with unspecified presence of clinical manifestation I70.203 ; Tinea unguium B35.1 ; Pain in right toe(s) M79.674 ; Pain in left toe(s) M79.675 ; Other hammer toe(s) (acquired), right foot M20.41 and Other hammer toe(s) (acquired), left foot M20.42 [facility] [place] [address] [facility] [address] [place] [address] 07/31/2024 Boby Chapman Atherosclerosis of [place] artery of both lower extremities, with unspecified [...] wart (ICD-10 - B07.0) 11/08/2023 Atherosclerosis of [place] artery of both lower extremities, with unspecified presence of clinical manifestation (ICD-10 - I70.203) 01/24/2024 Plantar wart (ICD-10 - B07.0) 01/24/2024 Atherosclerosis of [place] artery of both lower extremities, with unspecified presence of clinical manifestation (ICD-10 - I70.203) 05/05/2024 Tinea unguium (ICD-10 - B35.1) 05/05/2024 Atherosclerosis of [place] artery of both lower extremities, with unspecified presence of clinical manifestation (ICD-10 - I70.203) 07/31/2024 Tinea unguium (ICD-10 - B35.1) 07/31/2024 Atherosclerosis of [place] artery of both lower extremities, with unspecified [...] Treatment Pending Test Test Name Order Date 13957-EQUJSJY NAIL, 6 OR MORE 03/21/2017 67945-SQNILGI NAIL, 6 OR MORE 05/30/2017 39093-RVNLPYX NAIL, 6 OR MORE 08/06/2017 55021-ENPDOPN NAIL, 6 OR MORE 10/25/2017 25112-EWCIWZA NAIL, 6 OR MORE 03/20/2018 49849-GUYNRQC NAIL, 6 OR MORE 06/13/2018 19848-AFMIDYU NAIL, 6 OR MORE 01/07/2018 61171-OXHJRLG NAIL, 6 OR MORE 08/14/2018 14289-EFIEATA NAIL, 6 OR MORE 10/17/2018 32521-RJKCQRN NAIL, 6 OR MORE 01/16/2019 82918-TXUGGIV NAIL, 6 OR MORE 04/03/2019 72207-NSVDGIR NAIL, 6 OR MORE 06/16/2019 81047-LSINTIF NAIL, 6 OR MORE 08/27/2019 37030-TOTMFYP NAIL, 6 OR MORE 12/18/2019 27500-SNEENFJ NAIL, 6 OR MORE 05/06/2020 21718-JBOGFDH NAIL, 6 OR MORE 07/15/2020 17093-NSQXAJI NAIL, 6 OR MORE 09/29/2020 92519-YUTYPDU NAIL, 6 OR MORE 12/02/2020 60312-EJFCHNB NAIL, 6 OR MORE 02/17/2021 33473-RPHYPAY NAIL, 6 OR MORE 06/16/2021 65224-YCAQJDP NAIL, 6 OR MORE 08/29/2021 21558-AWCYEKN NAIL, 6 OR MORE 11/10/2021 40283-ZRTMXOP NAIL, 6 OR MORE 01/19/2022 15022-VPUVDSC NAIL, 6 OR MORE 04/05/2022 83822-KYAYQRX NAIL, 6 OR MORE 06/15/2022 65038-IUCXBLH NAIL, 6 OR MORE 08/24/2022 50322-GKWJRKZ NAIL, 6 OR MORE 11/16/2022 80782-UEPCSJK NAIL, 6 OR MORE 01/25/2023 47594-UPOZPQB NAIL, 6 OR MORE 04/11/2023 04457-DPKEQIO NAIL, 6 OR MORE 06/27/2023 58596-OUPZQEP NAIL, 6 OR MORE 08/30/2023 67481-SBHHCOD NAIL, 6 OR MORE 11/08/2023 67632-VZMOYGQ NAIL, 6 OR MORE 01/24/2024 18378-CSOMXUZ NAIL, 6 OR MORE 05/05/2024 18331-TDNCPZR NAIL, 6 OR MORE 07/31/2024 29123-DNOLBXF NAIL, -5 11/01/2016 34879-MSCAZWU NAIL, -01/03/2017 65390-UNWBKWW NAIL, -5 11/15/2015 73611-PHEQLGJ NAIL, -5 01/24/2016 11953-TZSOHCW NAIL, -04/05/2016 43427-SRZUGRQ NAIL, -06/14/2016 23682-WIHAIYT NAIL, -08/23/2016 23275-Nypq Destruction, -11/01/2016 89907-Pfqd Destruction, -01/03/2017 53680-Plha Destruction, 05-0603/21/2017 59625-Atli Destruction, 05-0605/30/2017 88423-Nzat Destruction, 05-0608/06/2017 45746-Ssph Destruction, 05-0605/06/2020 38937-Vjnc Destruction, 05-0612/18/2019 07651-Zzgn Destruction, 05-0608/27/2019 21079-Muwk Destruction, 05-0606/16/2019 06890-Pmgi Destruction, 05-0604/03/2019 63667-Bqet Destruction, 05-0601/16/2019 95676-Zjgv Destruction, 05-0610/17/2018 63251-Klzj Destruction, 05-0608/14/2018 29142-Rhve Destruction, 05-0606/13/2018 62120-Rigq Destruction, 05-0610/25/2017 16939-Gxds Destruction, 05-0601/07/2018 43803-Cuzv Destruction, 05-0608/30/2023 46050-Yrot Destruction, 05-0606/27/2023 53715-Yvxz Destruction, 05-0604/11/2023 16157-Sdub Destruction, 05-0601/25/2023 87514-Dilu Destruction, 05-0611/16/2022 14996-Eprb Destruction, 05-0608/24/2022 80785-Ogho Destruction, 05-0606/15/2022 47032-Psgb Destruction, 05-0604/05/2022 63220-Oxap Destruction, 05-0601/19/2022 39186-Ukvs Destruction, 05-0606/16/2021 32861-Gcbq Destruction, 05-0603/20/2018 88480-Nwrm Destruction, 05-0611/10/2021 26852-Xzmr Destruction, 05-0608/29/2021 52832-Bnwl Destruction, 05-0602/17/2021 23988-Nvlf Destruction, 05-0612/02/2020 21588-Nfip Destruction, 05-0609/29/2020 73709-Odsk Destruction, 05-0607/15/2020 19784-Utmz Destruction, 05-0601/24/2024 16226-Dwzc Destruction, 1-11/08/2023 51948-Ntqisogn Plate 11/08/2023 01902-Nqfdhabh Plate 09/29/2020 77243-Lcilcwoe Plate 12/02/2020 18636-Cuauzhwc Plate 02/17/2021 34844-Phvccljo Plate 06/16/2021 15929-Uqzsgceq Plate 08/29/2021 43864-Oiiojzbo Plate 11/10/2021 67818-Irxtnmpv Plate 01/19/2022 74135-Nrursigc Plate 04/05/2022 89527-Pgenmzme Plate 06/15/2022 14625-Xgnmqqjn Plate 08/24/2022 99742-Jnhwbpnp Plate 11/16/2022 21003-Wdzxxrhy Plate 01/25/2023 73198-Dkebvpju Plate 04/11/2023 27773-Tveeskdd Plate 06/27/2023 98573-Arkeumul Plate 08/30/2023 94010-Qltkayeu Plate 12/18/2019 01740-Mnzogisd Plate 05/06/2020 05914-Yjbdswar Plate 07/15/2020 34911-Gmwyaxhv Plate 11/01/2016 23648-Ojdxicoj Plate Each Additional 12/2023 87188-Gajfczwx Plate Each Additional 09/2023 43019-Fvztjegv Plate Each Additional 02068-Ugnhgwzx Plate Each Additional 08/2022 94547-Wizcrrct Plate Each Additional 43184-Rcrilxgl Plate Each Additional 07/2022 03413-Vafzueru Plate Each Additional 52204-Pmkrgfhd Plate Each Additional 33733-Mhwqhetd Plate Each Additional 07697-Uofkmsmt Plate Each Additional 72543-BOTR SKIN LESIONS, OVER 4 11/08/19 83129-IAPO SKIN LESIONS, OVER 4 01/24/20 43579-RQBF SKIN LESIONS, OVER 4 05/05/19 63576-FJWX SKIN LESIONS, OVER 4 08/01/19 04245-RACA SKIN LESIONS, OVER 4 06/16/19 91101-WMRL SKIN LESIONS, OVER 4 01/20/20 31320-VCHZ SKIN LESIONS, OVER 4 11/11/19 59605-CXNC SKIN LESIONS, OVER 4 08/30/19 65149-MBKI SKIN LESIONS, OVER 4 02/18/20 35442-YLSZ SKIN LESIONS, OVER 4 12/03/19 77235-AMQS SKIN LESIONS, OVER 4 09/30/19 01993-YQUO SKIN LESIONS, OVER 4 07/16/19 29408-ZLLJ SKIN LESIONS, OVER 4 04/05/20 97279-CWNJ SKIN LESIONS, OVER 4 06/15/19 26716-AQDM SKIN LESIONS, OVER 4 08/25/19 16976-ANGG SKIN LESIONS, OVER 4 11/17/19 23 80214-JNIV SKIN LESIONS, OVER 4 01/26/20 24769-HSGX SKIN LESIONS, OVER 4 04/11/20 99086-BUIU SKIN LESIONS, OVER 4 06/27/19 24 66351-NZXR SKIN LESIONS, OVER 4 08/30/19 24 35010-OFDF SKIN LESIONS, OVER 4 03/21/20 17 43617-ODVP SKIN LESIONS, OVER 4 01/04/20 17 16030-BPKF SKIN LESIONS, OVER 4 10/26/19 18 81155-VWNM SKIN LESIONS, OVER 4 08/07/19 18 13187-CZHI SKIN LESIONS, OVER 4 05/30/19 18 44052-SDEK SKIN LESIONS, OVER 4 11/02/19 17 68649-OQNS SKIN LESIONS, OVER 4 06/14/19 17 88176-OYXM SKIN LESIONS, OVER 4 04/05/20 16 89470-XBUB SKIN LESIONS, OVER 4 08/24/19 17 80487-FNAE SKIN LESIONS, OVER 4 01/24/20 16 63490-YNAK SKIN LESIONS, OVER 4 11/15/19 16 94148-DDXV SKIN LESIONS, OVER 4 08/16/19 16 68319-XFTD SKIN LESIONS, OVER 4 05/06/19 21 19210-AGHO SKIN LESIONS, OVER 4 12/18/19 20 52501-MXOQ SKIN LESIONS, OVER 4 08/27/19 74004-ZCRG SKIN LESIONS, OVER 4 04/03/20 19 88470-AXCC SKIN LESIONS, OVER 4 06/16/19 20 30725-ZVXI SKIN LESIONS, OVER 4 01/08/20 18 59429-JAVR SKIN LESIONS, OVER 4 06/13/19 19 98360-KFVR SKIN LESIONS, OVER 4 08/15/19 19 43480-PKNI SKIN LESIONS, OVER 4 03/20/20 18 22912-XSQT SKIN LESIONS, OVER 4 10/18/19 19 01385-TGGJ SKIN LESIONS, OVER 4 01/17/20 19 S6290-CJYPZQVH DYSTROPHIC NAILS ANY # D1055-LSACXOPK DYSTROPHIC NAILS ANY # V7917-VQPPXYTO DYSTROPHIC NAILS ANY # Z5813-ZTSGNIDE DYSTROPHIC NAILS ANY # X2805-LBRCRRPC DYSTROPHIC NAILS ANY # Z6177-FMPEEKMR DYSTROPHIC NAILS ANY # Y9136-VSCWPUGV DYSTROPHIC NAILS ANY # U9030-BPIIFWRF DYSTROPHIC NAILS ANY # Next Appt Details Provider Name:Boby Chapman , 10/30/2024 02:45:00 PM, [facility] [place] [address], [place], [address], Insurance Providers Payer Name Payer Address Payer Phone Subscriber Number Group Number Insured Name Patient Relationship to Insured Coverage Start Date Coverage End Date [facility] [employer] Claims [address] [place] [id number] Jacinda Benavidez Self - patient is the insured Medical (General) History Medical History History ICD Code Anemia Anxiety Arthritis Back,Hip,and Knee pain Cataracts High blood pressure Liver disease Reflux Thyroid disorder Surgical History Surgery Date(Month/Year) gall bladder 12/11/2014 Unspecified Right Hand SX 03/13/17
--- OUTSIDE RECORDS SUMMARY | 2024-10-23 09:39 | XMS_ITS | Encounter Summary ---
Author Organization [facility] Address [address] [place] [address] Phone Care Team Providers Care Trim Operator Name Role Phone Truong Colon MD Primary Care Provider [phone]- [phone] Encounter Details Date Type Department Care Team (Late Contact Info) Description 08/12/2024 Documentation Only [facility] [address] [place] [address] [place] [address] [place] [address] Social History Tobacco Use Types Packs/Day [...] [facility] [address] [place] [address] Romero Jimenez MD [address] [place] [address] [place] [address] documented as of this encounter Visit Diagnoses Not on filedocumented in this encounter Care Teams Trim Operator Relationship Specialty Start Date End Date Truong Colon MD [address] [place] [address] PCP - General Internal Medicine 03/06/23 documented as of this encounter
--- OUTSIDE RECORDS SUMMARY | 2024-10-23 09:39 | XMS_ITS | Patient Health Record ---
Author Organization [facility] Address [address] [place] [address] Care Team Providers Care Od Grinder Operator Name Role Phone Radha Pena Primary Care Provider Timoteo Schneider Unavailable [phone] Allergies Allergen (clinical drug ingredient) Drug/Non Drug Allergy documented on EMR Reaction Allergy Type Onset Date Status Penicillin Unknown Drug Allergy Active Reason For Referral No Information Medications Medication SIG (Take, Route, Frequency, Duration) Notes Start Date End Date Status Aspir-81 81 MG 1 tablet Orally Once a day Active Omeprazole 20 MG 2 capsules Orally On ce a day Active Levothyroxine Sodium 112 MCG 1 tablet Or ally Once a day Active Calcitriol 0.5 MCG 1 capsule Orally Onc e a day Active Tamoxifen Citrate 20 MG 1 tablet Orally Once a day Active Lisinopril 5 MG 1 tablet Orally Once a day Active Laxative Active Multi Vitamin/Minerals Orally Active traMADol HCl 50 MG Orally A ctive Problems Problem Type SNOMED Code ICD Code Onset Dates Problem Status W/U Status Risk Notes Problem 530098900 Encounter for screening for malignant neoplasm of colon (Z12.11) Active confirmed Problem Screening for malignant neoplasm of rectum (178386070) Encounter for screening for malignant neoplasm of rectum (Z12.12) Active confirmed Problem 853147388 Gastroesophageal reflux disease, esophagitis presence not specified (K21.9) Active confirmed Problem 61727593 Constipation, unspecified constipation type (K59.00) Active confirmed Plan Of Treatment Future Test Test Name Order Date UPPER GI ENDOSCOPY 11/30/2015 COLONOSCOPY 11/30/2015 Insurance Providers Payer Name Payer Address Payer Phone Subscriber Number Group Number Insured Name Patient Relationship to Insured Coverage Start Date Coverage End Date [facility] [address] [place] [address] [id number] NOE SALDIVAR Self - patient is the insured Medical (General) History Medical History History ICD Code Hypertension Kidney disease--mild renal insuffciency- -GFR of 40--Dr. Meza Denies PR,DM,CVA,Lung disease Neg. colonoscopy in 2004 exc ept for diverticulosis and internal hemorrhoids-- Neg. EGD in 2004--Dr. Bear Breast cancer on the left in 2013--lumpe ctomy and XRT Hypothyroidism GERD Surgical History Surgery Date(Month/Year) Cholecystectomy--Dr. Banks 2014 Bladder suspension Left lumpectomy for breast cancer in 4
--- OUTSIDE RECORDS SUMMARY | 2024-10-23 09:39 | XMS_ITS | Clinical Summary ---
Author Organization [facility] [employer] [facility] Address [address] [place] [address] Care Team Providers Care Certified Nurse Name Role Phone Truong Colon MD Primary Care Provider +1- [phone] Allergies Active Allergy Reactions Criticality Noted Date [...] 62 10/03/2023 11:30 AM EDT Temperature 36.8 C (98.2 F) 10/03/2023 11:30 AM EDT Respiratory Rate 20 05/19/2022 2:40 [...] - 1-dose 75+ series) 08/30/2018 Influenza Vaccine (Season Ended) 2024 02/27/2022, 05/10/2021, 01/29/2020, Additional history exists Hepatitis B Vaccines Completed 08/30/2015, 04/05/2015, 03/01/2015 Pneumococcal Vaccine Completed 03/18/2019, 04/07/2016, 02/13/2014, Additional history exists RSV Ped < 20 months Aged Out No longe r eligible based on patient's age to complete this topic Care Teams Certified Nurse Relationship Specialty Start Date End Date Truong Colon MD [address] [place] [address] PCP - General Internal Medicine 05/19/22
--- OUTSIDE RECORDS SUMMARY | 2024-10-23 09:39 | XMS_ITS | Clinical Summary ---
Author Organization [facility] Address [address] [place] [address] Phone Care Team Providers Care Mud Trucker Name Role Phone Truong Colon MD Primary Care Provider [phone] Allergies Active Allergy Reactions Criticality Noted Date [...] left breast in female, estrogen receptor positive ([facility] V24, 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 Encounters Date Type Department Care Team Description 10/22/2024 Lab Requisition [facility] [address] [place] [phone] Ally Castañeda MD Spinal stenosis, site unspecified; Chronic kidney disease, unspecified 10/22/2024 Lab Requisition [facility] [address] [place] [phone] Ally Castañeda MD Essential (primary) hypertension; Anemia, unspecified 10/16/2024 Lab Requisition [facility] [address] [place] [phone] Ally Castañeda MD Spinal stenosis, site unspecified; Chronic kidney disease, unspecified 10/10/2024 Lab Requisition [facility] [address] [place] [phone] Ally Castañeda MD Malignant neoplasm of unspecified site of unspecified female breast ([facility] V24, [facility] V28); Hypothyroidism, unspecified; Vitamin D deficiency, unspecified; Vitamin B12 deficiency anemia, unspecified; Spinal stenosis, site unspecified; Chronic kidney disease, stage 3 unspecified ([facility] V24, [facility] V28) from Last 3 Months Surgical History Surgery Date Site/Laterality Comments LUMBAR DISC SURGERY PROCEDURE:LUMBAR DISC SURGERY Medical History Medical History Date Comments Malignant neoplasm of upper- outer quadrant of left female breast (CMS/HCC V24, CMS/HCC V28) DX:Malignant neoplasm of upp er-outer quadrant [...] Care Team (Late st Contact Info) Description 11/04/2024 10:45 AM EDT Office Visit [facility] Hematology Oncology [address] [place] [phone] Jennifer Ca MD [address] [place] [phone] Health Maintenance Due Date Last Done Comments Zoster Vaccines (1 of 2) 03/23/2014 01/26/2014 RSV Immunization Adult Patients (1 - 1-dose 75+ series) 08/30/2018 COVID-19 Vaccine (3 - Moderna risk series) 09/14/2020 08/17/2020, 07/20/2020 Cholesterol Screening (Lipid Panel) 03/31/2022 Colorectal Cancer Screening: Colonoscopy 03/31/2022 Depression Screening 03/31/2022 Falls Risk Assessment 03/31/2022 Medicare Annual Wellness Visit 03/31/2022 Social Influencers of Health Screening 03/31/2022 Influenza Vaccine (#1) 2024 , 05/10/2021, 01/29/2020, Additional history exists Hypertension/CHF/CAD Annual BMP Blood Test 10/22/2025 10/22/2024, 10/17/2024, 10/10/2024 DTaP,Tdap,and Td Vaccines (2 - Td or [...] Procedure Name Priority Date/Time Associated Diagnosis Comments FERRITIN Routine 10/22/2024 5:26 AM EDT Essential (primary) hypertension Anemia, unspecified BASIC METABOLIC PANEL Routine 10/22/2024 5:26 AM EDT Essential (primary) hypertension Anemia, unspecified COMPLETE BLOOD COUNT Routine 10/22/2024 5:26 AM EDT Essential (primary) hypertension Anemia, unspecified BASIC METABOLIC PANEL Routine 10/17/2024 7:36 AM EDT Spinal stenosis, site unspecified Chronic kidney disease, unspecified COMPLETE BLOOD COUNT Routine 10/17/2024 7:36 AM EDT Spinal stenosis, site unspecified Chronic kidney disease, unspecified VITAMIN D 25 HYDROXY Routine 10/10/2024 5:37 AM EDT Malignant neoplasm of unspecified site of unspecified female breast (CMS/HCC V24, CMS/HCC V28) Hypothyroidism, unspecified Vitamin D deficiency, unspecified Vitamin B12 deficiency anemia, unspecified Spinal stenosis, site unspecified Chronic kidney disease, stage 3 unspecified (CMS/HCC V24, CMS/HCC V28) FOLATE Routine 10/10/2024 5:37 AM EDT Malignant neoplasm of unspecified site of unspecified female breast (CMS/HCC V24, CMS/HCC V28) Hypothyroidism, unspecified Vitamin D deficiency, unspecified Vitamin B12 deficiency anemia, unspecified Spinal stenosis, site unspecified Chronic kidney disease, stage 3 unspecified (CMS/HCC V24, CMS/HCC V28) VITAMIN B12 Routine 10/10/2024 5:37 AM EDT Malignant neoplasm of unspecified site of unspecified female breast (CMS/HCC V24, CMS/HCC V28) Hypothyroidism, unspecified Vitamin D deficiency, unspecified Vitamin B12 deficiency anemia, unspecified Spinal stenosis, site unspecified Chronic kidney disease, stage 3 unspecified (CMS/HCC V24, CMS/HCC V28) THYROID STIMULATING HORMONE WITH REFLEX TO FREE T4 AND FREE T3 Routine 10/10/2024 5:37 AM EDT Malignant neoplasm of unspecified site of unspecified female breast (CMS/HCC V24, CMS/HCC V28) Hypothyroidism, unspecified Vitamin D deficiency, unspecified Vitamin B12 deficiency anemia, unspecified Spinal stenosis, site unspecified Chronic kidney disease, stage 3 unspecified (CMS/HCC V24, CMS/HCC V28) COMPREHENSIVE METABOLIC PANEL Routine 10/10/2024 5:37 AM EDT Malignant neoplasm of unspecified site of unspecified female breast (CMS/HCC V24, CMS/[facility] V28) Hypothyroidism, unspecified Vitamin D deficiency, unspecified Vitamin B12 deficiency anemia, unspecified Spinal stenosis, site unspecified Chronic kidney disease, stage 3 unspecified ([facility] V24, [facility] V28) COMPLETE BLOOD COUNT Routine 10/10/2024 5:37 AM EDT Malignant neoplasm of unspecified site of unspecified female breast ([facility] V24, [facility] V28) Hypothyroidism, unspecified Vitamin D deficiency, unspecified Vitamin B12 deficiency anemia, unspecified Spinal stenosis, site unspecified Chronic kidney disease, stage 3 unspecified ([facility] V24, [facility] V28) DXA BONE DENSITY STUDY 1+ SITS AXIAL SKEL Routine 10/07/2021 10:23 AM EDT Other specified disorders of bone density and structure, left thigh from Last 3 Months or Most Recently Relevant to Health Maintenance Results * (ABNORMAL) Complete blood count (10/22/2024 5:26 AM EDT) Only the most recent of3 resultswithin the time period is included. WBC 5.7 4.8 - 10.8 K/mcL LAB HEMETOLOGY METHOD 10/22/2024 9:09 AM [facility] RBC 3.20(L) 3.80 - 4.80 M/mcL LAB HEMETOLOGY METHOD 10/22/2024 9:09 AM [facility] Hemoglobin 8.6(L) 11.5 - 16.0 g/dL LAB HEMETOLOGY METHOD 10/22/2024 9:09 AM [facility] Hematocrit 28.7(L) 35.0 - 47.0 % LAB HEMETOLOGY METHOD 10/22/2024 9:09 AM [facility] MCV 90.8 79.0 - 98.0 FL LAB HEMETOLOGY METHOD 10/22/2024 9:09 AM [facility] MCH 27.2 27.0 - 32.0 pcg LAB HEMETOLOGY METHOD 10/22/2024 9:09 AM EDT [facility] MCHC 30.0(L) 32.0 - 37.0 g/dL LAB HEMETOLOGY METHOD 10/22/2024 9:09 AM EDT [facility] RDW 13.4 11.0 - 15.0 % LAB HEMETOLOGY METHOD 10/22/2024 9:09 AM EDT [facility] Platelets 383 130 - 400 K/mcL LAB HEMETOLOGY METHOD 10/22/2024 9:09 AM EDT [facility] MPV 10.0 7.0 - 11.0 FL LAB HEMETOLOGY METHOD 10/22/2024 9:09 AM EDT [facility] NRBC 0.0 <1.0 % LAB HEMETOLOGY METHOD 10/22/2024 9:09 AM EDT [facility] NRBC Absolute 0.00 <0.10 K/mcL LAB HEMETOLOGY METHOD 10/22/2024 9:09 AM EDT [facility] Blood Venous blood specimen / Unknown Venipuncture / Unknown 10/22/2024 5:26 AM EDT 10/22/2024 8:36 AM EDT us Ally Castañeda MD LAB BLOOD ORDERABLES Final Resul t [facility] [address] [place] [address], * (ABNORMAL) Ferritin (10/22/2024 5:26 AM EDT) Ferritin 283(H) 8 - 252 ng/mL LAB CHEMISTRY METHOD 10/22/2024 9:41 AM EDT [facility] Blood Venous blood specimen / Unknown Venipuncture / Unknown 10/22/2024 5:26 AM EDT 10/22/2024 8:36 AM EDT us Ally Castañeda MD LAB BLOOD ORDERABLES Final Resul t [facility] [address] [place] [address], [place] [phone] * (ABNORMAL) Basic metabolic panel (10/22/2024 5:26 AM EDT) Only the most recent of2 resultswithin the time period is included. Sodium 140 133 - 145 mmol/L LAB CHEMISTRY METHOD 10/22/2024 9:41 AM [facility] Potassium 5.5 3.5 - 5.5 mmol/L LAB CHEMISTRY METHOD 10/22/2024 9:41 AM [facility] Chloride 107 96 - 110 mmol/L LAB CHEMISTRY METHOD 10/22/2024 9:41 AM [facility] CO2 30 21 - 32 mmol/L LAB CHEMISTRY METHOD 10/22/2024 9:41 AM [facility] Anion Gap 3 3 - 11 LAB CHEMISTRY METHOD 10/22/2024 9:41 AM [facility] Glucose 69(L) 70 - 100 mg/dL LAB CHEMISTRY METHOD 10/22/2024 9:41 AM [facility] BUN 21 5 - 25 mg/dL LAB CHEMISTRY METHOD 10/22/2024 9:41 AM [facility] Creatinine 0.90 0.50 - 1.10 mg/dL LAB CHEMISTRY METHOD 10/22/2024 9:41 AM [facility] eGFR 64 >=60 mL/min/1. 73m2 LAB CHEMISTRY METHOD 10/22/2024 9:41 AM [facility] Comment:Calculation based on the Chronic Kidney Disease Epidemiology Collaboration (CKD-EPI) equation refit without adjustment for race. BUN/Creatinine Ratio 23.3 LAB CHEMISTRY METHOD 10/22/2024 9:41 AM EDT [facility] Calcium 9.0 8.5 - 10.5 mg/dL LAB CHEMISTRY METHOD 10/22/2024 9:41 AM EDT [facility] Blood Venous blood specimen / Unknown Venipuncture / Unknown 10/22/2024 5:26 AM EDT 10/22/2024 8:36 AM EDT us Ally Castañeda MD LAB BLOOD ORDERABLES Final Resul t Performing Organization Address [facility] de Phone Number [facility] [address] [place] [address], [place] [phone] * Thyroid stimulating hormone with reflex to free t4 and free t3 (10/10/2024 5:37 AM EDT) TSH 2.96 0.40 - 4.00 mcIU/mL LAB CHEMISTRY METHOD 10/10/2024 1:01 PM EDT [facility] Blood Venous blood specimen / Unknown Venipuncture / Unknown 10/10/2024 5:37 AM EDT 10/10/2024 9:30 AM EDT us Ally Castañeda MD LAB BLOOD ORDERABLES Final Resul t Performing Organization Address [facility] de Phone Number [facility] [address] [place] [address], [place] [phone] * Vitamin D 25 hydroxy (10/10/2024 5:37 AM EDT) Vit D, 25-Hydroxy 52.0 30.0 - 80.0 ng/mL LAB CHEMISTRY METHOD 10/10/2024 1:00 PM EDT [facility] Blood Venous blood specimen / Unknown Venipuncture / Unknown 10/10/2024 5:37 AM EDT 10/10/2024 9:30 AM EDT us Ally Castañeda MD LAB BLOOD ORDERABLES Final Resul t Performing Organization Address [facility] de Phone Number [facility] [address] [place] [address], [place] [phone] * Folate (10/10/2024 5:37 AM EDT) [facility] Folate 12.9 2.8 - 17.0 ng/ml LAB CHEMISTRY METHOD 10/10/2024 11:35 AM EDT [facility] Blood Venous blood specimen / Unknown Venipuncture / Unknown 10/10/2024 5:37 AM EDT 10/10/2024 9:30 AM EDT us Ally Castañeda MD LAB BLOOD ORDERABLES Final Resul t Performing Organization Address [facility] de Phone Number [facility] [address] [place] [address], [place] [phone] * Vitamin B12 (10/10/2024 5:37 AM EDT) [facility] Vitamin B-12 371 250 - 900 pcg/mL LAB CHEMISTRY METHOD 10/10/2024 11:35 AM EDT [facility] Blood Venous blood specimen / Unknown Venipuncture / Unknown 10/10/2024 5:37 AM EDT 10/10/2024 9:30 AM EDT us Ally Castañeda MD LAB BLOOD ORDERABLES Final Resul t Performing Organization Address [facility]/ZIP Co de Phone Number [facility] [address] [place] [address], [place] [phone] * (ABNORMAL) Comprehensive metabolic panel (10/10/2024 5:37 AM EDT) [facility] Sodium 130(L) 133 - 145 mmol/L LAB CHEMISTRY METHOD 10/10/2024 11:35 AM EDT [facility] Potassium 4.9 3.5 - 5.5 mmol/L LAB CHEMISTRY METHOD 10/10/2024 11:35 AM [facility] Chloride 97 96 - 110 mmol/L LAB CHEMISTRY METHOD 10/10/2024 11:35 AM [facility] CO2 28 21 - 32 mmol/L LAB CHEMISTRY METHOD 10/10/2024 11:35 AM [facility] Anion Gap 5 3 - 11 LAB CHEMISTRY METHOD 10/10/2024 11:35 AM [facility] Glucose 82 70 - 100 mg/dL LAB CHEMISTRY METHOD 10/10/2024 11:35 AM [facility] BUN 37(H) 5 - 25 mg/dL LAB CHEMISTRY METHOD 10/10/2024 11:35 AM [facility] Creatinine 1.16(H) 0.50 - 1.10 mg/dL LAB CHEMISTRY METHOD 10/10/2024 11:35 AM [facility] eGFR 47(L) >=60 mL/min/1. 73m2 LAB CHEMISTRY METHOD 10/10/2024 11:35 AM [facility] Comment:Calculation based on the Chronic Kidney Disease Epidemiology Collaboration (CKD-EPI) equation refit without adjustment for race. BUN/Creatinine Ratio 31.9 LAB CHEMISTRY METHOD 10/10/2024 11:35 AM [facility] Calcium 8.9 8.5 - 10.5 mg/dL LAB CHEMISTRY METHOD 10/10/2024 11:35 AM [facility] AST (SGOT) 42 10 - 42 unit/L LAB CHEMISTRY METHOD 10/10/2024 11:35 AM [facility] ALT (SGPT) 48 10 - 60 unit/L LAB CHEMISTRY METHOD 10/10/2024 11:35 AM [facility] Alkaline Phosphatase 98 42 - 121 unit/L LAB CHEMISTRY METHOD 10/10/2024 11:35 AM [facility] Total Protein 6.3 6.0 - 8.0 g/dL LAB CHEMISTRY METHOD 10/10/2024 11:35 AM EDT [facility] Albumin 2.3(L) 3.2 - 5.0 g/dL LAB CHEMISTRY METHOD 10/10/2024 11:35 AM EDT [facility] Total Bilirubin 0.4 0.0 - 1.4 mg/dL LAB CHEMISTRY METHOD 10/10/2024 11:35 AM EDT [facility] Blood Venous blood specimen / Unknown Venipuncture / Unknown 10/10/2024 5:37 AM EDT 10/10/2024 9:30 AM EDT Ally Castañeda MD LAB BLOOD ORDERABLES Final Resul t [facility] [address] [place] [address], * DXA BONE DENSITY STUDY 1+ SITS AXIAL SKEL (10/07/2021 10:23 AM EDT) Anatomical Region Laterality Modality Bone Densitometr y 05/10/2021 11:5 1 AM EST Narrative 10/07/2021 4:32 PM EDT Clinical history: other osteoporosis Scans of the lumbar spine and hips were performed on a VetDC/Cliptone ProdigUltralife fan beam bone densitometer. Bone mineral density measurements [...] >20% for major osteoporotic fracture PLEASE NOTE: W.H.O. classification is based on lowest measured density at the spine, femoral neck, or total hip.This classification has prognostic significance when applied to post menopausal women and older men. 1) The World Health Organization defines low BMD as follows: T-score Normal at or > -1 Osteopenia < -1 and > -2.5 Osteoporosis at or < -2.5 without fractures Established osteoporosis < -2.5 with fractures Procedure Note Pérez Ulloa MD - 04/11/2022 Clinical history: other osteoporosis Scans of the lumbar spine and hips were performed on a VetDC/DAVIDsTEAfan beam bone densitometer. Bone mineral density measurements [...] withoutfractures Established osteoporosis < -2.5 with fractures us Lorraine SCHWARTZ IMG DXA PROCEDURES Final Resu lt from Last 3 Months or Most Recently Relevant to Health Maintenance Insurance MEDICAID - [place] [employer] MEDICARE Member Subscriber Plan / Payer (Ef fective 2012-Present) Name:Noe Blancas Relation to Subscriber:Self Name:Noe Blancas Payer ID:[id number] Group ID:[id number] Type:Not on file Address: [address] [place] [address] Care Teams Mud Trucker Relationship Specialty Start Date End Date Truong Colon MD [address] [place] [address] [address] [place], [place] PCP - General 05/19/22
== END 2024-10-23 10:21 | disposition home or self-care (01) ==
LOC: HO.HNS 09:22
PROVIDERS: PCP Internal Medicine; Visit Provider Physician Assistant
DX: M54.50 Low back pain, unspecified (principal)
CPT/HCPCS: 99024

== ENCOUNTER → 2024-10-23 09:22 | Outpatient (BNVA) | payer OTHER, SELFPAY | PROVIDERS: PCP Internal Medicine; Visit Provider Physician Assistant | DX: M54.50 Low back pain, unspecified (principal); Z98.890 Other specified postprocedural states | CPT/HCPCS: 99212 ==

== ENCOUNTER 2024-11-10 12:20 | Outpatient (AMB) | payer OTHER, SELFPAY ==
--- OUTSIDE RECORDS SUMMARY | 2023-03-07 08:36 | XMS_ITS | Continuity of Care Document ---
Author Organization [facility] Address [address] [place] [address] Phone Care Team Providers Care Patient Case Manager Name Role Phone Amanuel DURAN FACS RVT [...] Providers Copied on Encounter [facility], [address] [place], [id number], [place] tel:[phone] [place] No Information 3 Amanuel DURAN FACS T SIMÓN Pinto. [address] [facility] [address] [facility], [address], [place], [address], [place]. [phone] Referring Provider: Truong Colon MD, [address], [place], [address]. tel:[phone] Office/Outpt E&M Established 25 Mins [facility], [address] [place] [address] Dr [address]Jose [place], [id number], [place] tel:[phone] [place] Body mass index (BMI) 34.0-34.9, adultVenous insufficiency (chronic) (peripheral) 3 Amanuel DURAN FACS Yoni Pinto. [address] [place] [address], [place] [address], [place], [address], [place]. [phone] Referring Provider: Truong Colon MD, [address], [place], [address]. 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 [address] [place] [address], [address], [place], [address], [place]. [phone] Referring Provider: Truong Colon MD, [address], [place], [address]. 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 [facility] [facility], [address], [place], [address], [place]. tel:[phone] Referring Provider: Truong Colon MD, [address], [place], [address]. tel:[phone] [place] [facility], [address] [place] [address] [address]Jose [place], [id number], [place] tel:[phone] [place] Encntr for f/u exam aft trtmt for cond oth than malig neoplmVenous insufficiency (chronic) (peripheral) 3 Amanuel DURAN FACS RVT SIMÓN Pinto. [address] [facility], [facility] [address], [place], [address], [place]. [phone] Referring Provider: Truong Colon MD, [address] [place] [address] Dr [address], [place], [address]. 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 [address] [facility], [facility] [address], [place], [address], [place]. [phone] Referring Provider: Truong Colon MD, [address] [place] [address] Dr [address], [place], [address]. 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 [address] [facility], [facility] [address], [place], [address], [place]. [phone] Referring Provider: Truong Colon MD, [address], [place], [address]. tel:[phone] Family History Family Member Type Diagnosis Age At Onset No Information Payers Payer name Insurance type Covered alliance party ID Josefina haynes(s) [facility] [id number] Social History Type Description Quantity Date Captured [...]
--- OUTSIDE RECORDS SUMMARY | 2024-10-30 10:45 | XMS_ITS ---
Author Organization [facility] Address [address] [place] [address] Care Team Providers Care Edge Stitcher Name Role Phone Isaiah DURAN, Truong Primary Care Provider UnaBoby Bermudez Unavailable [phone] Encounters Encounter Location Date Provider Diagnosis [facility] [address] [address] 10/30/2024 Boby Chapman Plan Of Treatment Next Appt Details Provider Name:Boby Chapman , 12/15/2024 01:45:00 PM, [address] [facility], [place] [address], [place], [address], Progress Notes * Tommie BLANCASOB:[birth year] (79 yo F)Acc No.[id number]:10/30/2024 Progress Note Patient: Jacinda NUNEZ Provider: Alex Chapman DPM :1945 A ge:79 Y S ex:Female Date:10/30/2024 Address:[address] [place] [address], [place], [place] Pcp:Truong Colon MD Subjective: * Chief Complaints: [...] 10/30/2024 Generated for Yovanny toussaint/Daniel on: 0 11/10/2024 01:07 PM EDT
--- NOTE | 2024-11-10 12:29 | MHC.PC.OV ---
Vital Signs 11/10/24 12:30 Height 5 ft 11 in Weight 225 lb BMI 31.4 BP 148/70 H Blood Pressure Location Lt brachial Position Sitting Pulse 71 Pulse Source Pulse Oximeter Pulse Oximetry (%) 98 Oxygen Delivery Method Room Air Intake Visit Reasons: 4 month f/u, resched Study Abroad Coordinator Required: No Accompanied by: Self / Same As Patient Allergies Penicillins (PENICILLINS) Allergy (Intermediate, Verified 11/10/24 12:48) rash senna Allergy (Intermediate, Verified 11/10/24 12:48) rash Medication List - Last Reconciled 11/10/24 by Truong Colon MD amlodipine 10 mg PO DAILY 90 days bisacodyl 5 mg PO BEDTIME 90 days calcitriol 1 mcg PO WE@1645 cane As directed - use when walking carvedilol 12.5 mg PO BID [Commode As directed] [DISPOSABLE BED PADS Use as directed ONCE A DAY] [DISPOSABLE GLOVES - LARGE (1 box/month) Use as directed] docusate sodium (Colace) 100 mg PO BID [FEMININE PADS As directed] gabapentin 300 mg PO DAILY levothyroxine 125 mcg PO DAILY@0600 [MEDICATED INCONTINENCE WIPES As directed] methocarbamol 500 mg PO Q8H multivitamin 1 tab PO DAILY omeprazole 40 mg PO DAILY@0630 oxycodone 5 mg PO Q6H PRN pregabalin 75 mg PO BEDTIME 90 days [ROLLATOR As directed] [ROLLATOR As directed] Tobacco use date assessed: 11/10/24 Fall risk assessment: 1 Fall in past year Last assessed Fall Risk: 11/10/24 Dental Screening Dental Screen Date: 11/10/24 Did you have a dental visit in the last 12 months?: Yes Did you have a dental problem in the last 6 months where you did not have access to dental care?: No Was dental information given to patient?: Patient has dentist HPI 4 month f/u, resched HPI Details Patient comes in today for her follow up visit States that she currently feels okay She had right L2-L3 decompression surgery with Dr. Smyth last month Reports that she has experienced some relief of her right lower radicular pain from her recent back surgery but has been experiencing on and off swelling of her lower extremities since She is currently receiving home physical therapy twice a week She denies any headaches or dizziness Denies any chest pains, no increased shortness of breath No nausea/vomiting, no abdominal pain No change in bowel habits noted Adds that her right leg has been swollen for the past couple of days and her daughter is concerned about the possibility of a DVT and would like to have patient get a venous Doppler done for further evaluation She has a follow-up labs done last month - to discuss her results States that she also saw oncology for her routine follow-up of breast cancer last week PFS Medical History (Updated 11/17/24 @ 05:18 by Truong Colon MD) Ambulates with cane Difficulty swallowing Osteoarthritis of right knee BPV (benign positional vertigo) Gait instability Cervicogenic headache Cervicalgia Vertigo Chronic kidney disease, stage III (moderate) Obesity (BMI 30-39.9) Gastritis Benign essential hypertension GERD without esophagitis Acquired hypothyroidism Constipation Lumbar spondylosis Post laminectomy syndrome Connective tissue disease Interstitial lung disease Osteopenia PAC (premature atrial contraction) Sjogrens syndrome Hypothyroid Breast cancer Raynauds disease SAMARA positive Surgical History (Updated 11/10/24 @ 12:55 by Truong Colon MD) Status post lumbar spine surgery for decompression of spinal cord History of video-assisted thoracoscopic surgery (VATS) (03/13/24) 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) Hx of colonoscopy Hx of tubal ligation H/O varicose vein stripping History of cataract surgery H/O lumpectomy Hx of cholecystectomy History of back surgery Family History Father Emphysema of lung Cancer Brother Emphysema of lung Mother Bone cancer Son PONV (postoperative nausea and vomiting) Other Arthritis Social History Household Members: Significant Other and Children Housing: Apartment Are you a primary pet caregiver to a significant other at home: No Do you presently have visiting nurse or other home services: Yes (VOCATIONAL TECHNICAL EDUCATION TEACHER 4 days a week, 2.5 hours) Alcohol intake: never Comment: pt reports this is her baseline pain Patient Tobacco Use Status: Never used Tobacco e-Cigarette/Vaping Use: Never Used Second Hand Smoke Exposure: No service: No Current occupational status: retired Cognitive needs: No Hearing needs: No Vision needs: Yes (Glasses) Questionnaire PHQ-9 Over the last 2 weeks, how often have you been bothered by any of the following problems? 1. Little interest or pleasure in doing things: not at all 2. Feeling down, depressed, or hopeless: not at all 3. Trouble falling or staying asleep, or sleeping too much: not at all 4. Feeling tired or having little energy: not at all 5. Poor appetite or overeating: not at all 6. Feeling bad about yourself - or that you are a failure or have let yourself or your family down: not at all 7. Trouble concentrating on things, such as reading the newspaper or watching television: not at all 8. Moving or speaking so slowly that other people could have noticed. Or the opposite - being so fidgety or restless that you have been moving around a lot more than usual: not at all 9. Thoughts that you would be better off or of hurting yourself in some way: not at all Total score: 0 Depression Screening Interpretation: Negative Depression Screening Done: Yes 66735 - PHQ-9 Billing: Yes Source: Developed by Drs. Timoteo Covington, Lucy Arndt, Guevara Jewell and colleagues, with an educational tere from [employer]. Thrive Questionnaire Date Thrive assessed: 11/10/24 I am a: Patient What is your living situation today?: I have a place to live, but I am worried about losing it in the future Within the past 12 months, did the food you bought not last and you didn't have the money to get more?: I choose not to answer this question Within the past 12 months, did you worry whether your food would run out before you got money to buy more?: I choose not to answer this question Do you have trouble paying for medicines?: I choose not to answer this question Do you have trouble getting transportation to medical appointments?: I choose not to answer this question Do you have trouble paying your heating and electricity bill?: I choose not to answer this question Do you have trouble taking care of your child, family member or friend?: I choose not to answer this question Do you have trouble with day-to-day activities such as bathing, preparing meals, shopping, managing finances, etc.?: I choose not to answer this question Are you currently unemployed and looking for a job?: I choose not to answer this question Are you interested in more education?: I choose not to answer this question Please select the resources that you would like help with: None Currently or been in a relationship where the following occur: I choose not to answer THRIVE Score: 1 AUDIT C Alcohol Use Questionnaire (AUDIT-C) 1. How often do you have a drink containing alcohol?: Never 3. How often do you have six or more drinks on one occasion?: Never Total Score: 0 Score Reviewed/Action Taken: Yes MO-7 AMB Questionnaire MO-7 Date MO - 7 assessed: 11/10/24 Feeling nervous, anxious, or on edge: 0 = Not at all Not being able to stop or control worryin = Not at all Worrying too much about different things: 0 = Not at all Trouble relaxin = Not at all Being so restless that it is hard to sit still: 0 = Not at all Becoming easily annoyed or irritable: 0 = Not at all Feeling afraid as if something awful might happen: 0 = Not at all Total MO-7 score (0-4 normal; 5-9 mild; 10-14 moderate; 15-21 severe): 0 Source: Developed by Drs. Timoteo Covington, Lucy Arndt, Guevara Jewell and colleagues, with an educational tere from [employer]. Review of Systems Const Denies chills, Denies fatigue, Denies fever(s) and Denies headache(s) ENT Denies dysphagia, Denies dizziness, Denies otalgia, Denies headache(s), Denies neck pain, Denies odynophagia and Denies sore throat Card Denies chest pain, Denies rapid heart rate, Denies irregular heart rhythm, Denies palpitations and Denies dyspnea Resp Denies chest congestion, Denies cough and Denies dyspnea GI Denies abdominal pain, Denies constipation, Denies dysphagia, Denies diarrhea, Denies nausea, Denies odynophagia and Denies vomiting Denies hematuria, Denies difficulty voiding, Denies nocturia, Denies dysuria and Denies urinary urgency Musc Reports abnormal gait (unsteady), Reports back pain (over the lower back - chronic), Denies arthralgias and Denies neck pain Skin/Breast Denies rash Neuro Reports abnormal gait (unsteady), Denies dizziness, Denies headache(s) and Denies paresthesias Psych Reports anxiety (increasing) Endo Denies fatigue and Denies palpitations Rogelio/Lymph Details: (+) swelling of the right leg recently Denies easy bruising Physical exam (Primary Care) Vital Signs: Last Vital Signs Pulse 71 11/10/24 12:30 BP 148/70 H 11/10/24 12:30 Pulse Ox 98 11/10/24 12:30 Oxygen Delivery Method Room Air 11/10/24 12:30 BMI result Body Mass Index 31.4 Tobacco/Smoking Status: Tobacco use Status Tobacco use date assessed 11/10/24 11/10/24 12:36 Patient Tobacco Use Status Never used Tobacco 11/10/24 12:36 e-Cigarette/Vaping Use Never Used 11/10/24 12:36 PHQ-9: PHQ-9 Score PHQ-9: Total score 0 11/10/24 12:48 Depression Screening Interpretation: Negative Thrive Assessment: Date of Thrive Assessment Date Thrive assessed 11/10/24 11/10/24 12:36 Currently or been in a relationship where the following occur: I choose not to answer Const General: no acute distress and alert HENMT Ears: TM's normal bilaterally and EAC's normal Throat: Yes posterior oropharynx normal and Yes tonsils normal (no TP congestion) Neck Neck: Yes supple and No lymphadenopathy Thyroid: Thyroid normal Resp Auscultation: clear to auscultation bilaterally (although there is some dullness noted at the left lung base), no rales and no wheezes Cardio Rate: regular rate Rhythm: regular rhythm Heart sounds: no murmurs GI Palpation (GI): Soft to palpation and nontender Auscultation: normal bowel sounds General: Yes no CVA tenderness Back/Spine/Pelvis Back: no CVA tenderness Thoracic/Lumbar Spine: lumbar spinal tenderness (chronic) Skin Rashes: no rashes Extrem General: Yes edema (1+ edema of the right lower leg and foot) Right lower extremity: knee Details: tenderness; no swelling Results Reviewed Results Reviewed: Laboratory Tests 10/07/24 12:12 WBC 11.8 H Hgb 9.4 L D Hct 28.4 L D Plt Count 209 Sodium 139 Potassium 4.5 Creatinine 1.15 Estimated GFR 45 Random Glucose 126 H Calcium 9.3 D AST 69 H ALT 45 H Coding Level of Care Code Est Pt Level 4 (58926) Diagnoses Lumbar spondylosis M47.816 Benign essential hypertension I10 Cervicogenic headache G44.86 Acquired hypothyroidism E03.9 Stage 3b chronic kidney disease N18.32 Chronic kidney disease stage 3 subtype: stage 3b (GFR 30-44) Sjogren's syndrome without extraglandular involvement M35.00 Sjogren's organ involvement: without extraglandular involvement GERD without esophagitis K21.9 Dysphagia, unspecified type R13.10 Dysphagia type: unspecified Right leg swelling M79.89 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 Chronic idiopathic constipation K59.04 Fibromyalgia M79.7 Primary osteoarthritis of right knee M17.11 Anxiety F41.9 Obesity (BMI 30-39.9) E66.9 Additional Codes PHQ-9 - 80103 - PHQ-9 Billing: Yes ([id number]) Assessment & Plan Assessment & Plan (1) Lumbar spondylosis: Code(s): M47.816 - Spondylosis without myelopathy or radiculopathy, lumbar region Category: Medical Plan: Reinforced activity and weight-lifting restrictions Patient has failed back injections in the past She was successfully trialed on SCS a few months ago and was being planned for a permanent SCS implantation but she ended up undergoing back surgery (right L2-L3 decompression) with Dr. Merino last month and is now receiving home physical therapy twice a week Follow up with Pain Management as scheduled (2) Benign essential hypertension: Code(s): I10 - Essential (primary) hypertension Category: Medical Plan: Reinforced low sodium diet - goal is systolic BP of at least 130 to 140 mm or less Continue Amlodipine 10 mg QD and Carvedilol 12.5 mg BID (3) Cervicogenic headache: Code(s): G44.86 - Cervicogenic headache Category: Medical Plan: Patient was seen by Neurology a few months ago and was advised that her headaches are most likely related to her frequent neck pain She was sent for physical therapy further evaluation and management and myofascial release but patient did not go to therapy as her insurance does not cover physical therapy sessions and she has to pay out a co-pay each time she goes She was also started on Cyclobenzaprine at bedtime by Neurology, which patient states did not really help (4) Acquired hypothyroidism: Code(s): E03.9 - Hypothyroidism, unspecified Category: Medical Plan: Results of her labs done last month reviewed and discussed with patient but did not include TFTs Continue Levothyroxine 125 mcg QD Will have patient recheck her labs in 4 months for follow up (5) Chronic kidney disease, stage III (moderate): Code(s): N18.30 - Chronic kidney disease, stage 3 unspecified Category: Medical Qualifiers: Chronic kidney disease stage 3 subtype: stage 3b (GFR 30-44) Qualified Code(s): N18.32 - Chronic kidney disease, stage 3b Plan: Patient's renal function appears stable on her recent labs Ww will continue to monitor her renal function closely Follow up with nephrology (Dr. Meza) as scheduled (6) Sjogrens syndrome: Code(s): M35.00 - Sjogren syndrome, unspecified Category: Medical Qualifiers: Sjogren's organ involvement: without extraglandular involvement Qualified Code(s): M35.00 - Sicca syndrome, unspecified Plan: She seen by rheumatology for positive Sjogren's antibody and with sicca symptoms She was initially thought to have Sjogren's syndrome but patient has never had any inflammatory arthritis symptoms or signs and no other extraglandular manifestations of Sjogren's have been detected - was advised that her symptoms are more due to osteoarthritis and that she DOES NOT HAVE SJOGREN'S SYNDROME Follow up with rhuematology as scheduled (7) GERD without esophagitis: Code(s): K21.9 - Gastro-esophageal reflux disease without esophagitis Category: Medical Plan: Dietary restrictions reinforced Continue Omeprazole 40 mg QD Follow up with GI as scheduled (8) Dysphagia: Code(s): R13.10 - Dysphagia, unspecified Category: Medical Qualifiers: Dysphagia type: unspecified Qualified Code(s): R13.10 - Dysphagia, unspecified Plan: Her barium swallow done a couple of years ago showed findings consistent with achalasia / lower esophageal sphincter spasm with associated nonmotility She was sent for a chest CT by GI last year for further evaluation, which then revealed the 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 Membreno Code(s): J98.59 - Other diseases of mediastinum, not elsewhere classified Category: Medical Plan: Patient underwent elective thorascopic surgery for an anterior mediastinal mass/thymectomy with Dr. Membreno back on 03/13/2024 Her postop course was mostly uneventful except for a left-sided pleural effusion, which eventually resolved Her pathology came back benign - thymus gland with no malignancy noted (11) Chronic idiopathic constipation: Code(s): K59.04 - Chronic idiopathic constipation Category: Medical Plan: Reinforced increased oral fluids and dietary fiber Continue Bisacodyl 5 mg QD PRN (12) Fibromyalgia: Code(s): M79.7 - Fibromyalgia Category: Medical Plan: Continue Gabapentin 300 mg BID Follow-up with rheumatology as scheduled (13) Primary osteoarthritis of right knee: Code(s): M17.11 - Unilateral primary osteoarthritis, right knee Category: Medical Plan: Continue Acetaminophen ER 650 mg Q 12 hours PRN Follow up with orthopedics as scheduled (14) Anxiety: Code(s): F41.9 - Anxiety disorder, unspecified Category: Medical Plan: Continue Hydroxyzine 25 mg BID PRN to help with her anxiety (15) Obesity (BMI 30-39.9): Code(s): E66.9 - Obesity, unspecified Category: Medical Plan: Reinforced diet/exercise as tolerated/lose weight Plan Follow up in 4 months Orders: Orders US venous duplex LE RT 11/10/24 M79.661 - Pain in right lower leg, M79.89 - Other specified soft tissue disorders Medications: New gabapentin 300 mg PO BID 60 caps 3RF 30 days Discontinued pregabalin Discontinued Reason: Patient no longer taking 75 mg PO BEDTIME 90 days 90 caps 1RF M79.7 - Fibromyalgia
[2024-11-10 12:30] VITALS: BP 148/70; PULSE 71; O2SAT 98; BMI 31.4
--- OUTSIDE RECORDS SUMMARY | 2024-11-10 13:07 | XMS_ITS | Encounter Summary ---
Author Organization [facility] Address [address] [place] [address] Phone Care Team Providers Care Air Cargo Agent Name Role Phone Truong Colon MD Primary Care Provider [phone] Encounter Details Date Type Department Care Team (Late Contact Info) Description 08/12/2024 Documentation Only [facility] [address] [place] [address] [place] [address] [place] [phone] Social History Tobacco Use Types Packs/Day [...] Visit [facility] [address] [place] [address] Romero Jimenez MD [address] [place] [address] [place] [address] documented as of this encounter Visit Diagnoses Not on filedocumented in this encounter Care Teams Air Cargo Agent Relationship Specialty Start Date End Date Truong Colon MD [address] [place] [address] PCP - General Internal Medicine 03/06/23 documented as of this encounter
--- OUTSIDE RECORDS SUMMARY | 2024-11-10 13:08 | XMS_ITS | Clinical Summary ---
Author Organization [facility] Address [address] [place] [address] Phone Care Team Providers Care Crime Specialist Name Role Phone Truong Colon MD Primary Care Provider [phone] [phone] Allergies Active Allergy Reactions Criticality Noted Date [...] mouth 2 (two) times a day. Active ERGOCALCIFEROL, VITAMIN D2, ORAL Take by mouth. Activ e levothyroxine (SYNTHROID, LEVOTHROID) 112 mcg tablet Take 1 tablet (112 mcg total) by mouth every morning on an empty stomach. Active omeprazole (PriLOSEC) [address] capsule Take 1 capsule (20 mg total) by mouth 1 (one) time each day. Active multivit-min/ir on/folic acid/K (ADULTS MULTIVITAMIN ORAL) Take by mouth. 10/12/19 16 Active apixaban (Eliquis) 2.5 mg tablet TAKE 1 TABLET BY MOUTH TWICE A DAY IN THE MORNING AND EVENING UNTIL DISCONTINUED 04/28/19 23 2024 Discontinued Active Problems Problem Noted Date Diagnosed Date Malignant neoplasm of upper- outer quadrant of left breast in female, estrogen receptor positive ([facility] V24, [facility] V28) 07/03/2023 Iron deficiency anemia 05/18/2022 Acquired hypothyroidism 03/28/2017 Gastroesophageal reflux disease without esophagi tis 03/28/2017 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 Encounters Date Type Department Care Team Description 11/06/2024 Lab Requisition [facility] [address] [place] [phone] Ally Castañeda MD Spinal stenosis, site unspecified; Chronic kidney disease, unspecified 11/04/2024 10:45 AM EDT Office Visit [facility] Hematology Oncology [address] [place] [phone] Jillian-Jennifer Gonzalez MD Malignant neoplasm of upper-outer quadrant of left breast in female, estrogen receptor positive ([facility] V24, [facility] V28) (Primary Dx) 10/30/2024 Lab Requisition [facility] [address] [place] [phone] Ally Castañeda MD Spinal stenosis, site unspecified; Chronic kidney disease, unspecified 10/22/2024 Lab Requisition [facility] [address] [place] [phone] Ally Castañeda MD Spinal stenosis, site unspecified; Chronic kidney disease, unspecified 10/22/2024 Lab Requisition [facility] [address] [place] [phone] Ally Castañeda MD Essential (primary) hypertension; Anemia, unspecified 10/16/2024 Lab Requisition [facility] [address] [place] [address] Ally Catsañeda MD Spinal stenosis, site unspecified; Chronic kidney disease, unspecified 10/10/2024 Lab Requisition [facility] [address] [place] [phone] Ally Castañeda MD Malignant neoplasm of unspecified site of unspecified female breast ([facility] V24, [facility] V28); Hypothyroidism, unspecified; Vitamin D deficiency, unspecified; Vitamin B12 deficiency anemia, unspecified; Spinal stenosis, site unspecified; Chronic kidney disease, stage 3 unspecified ([facility] V24, [facility] V28) from Last 3 Months Surgical History Surgery Date Site/Laterality Comments LUMBAR DISC SURGERY PROCEDURE:LUMBAR DISC SURGERY Medical History Medical History Date Comments Malignant neoplasm of upper- outer quadrant of left female breast ([facility] V24, [facility] V28) DX:Malignant neoplasm of upp er-outer quadrant of left female breast (HCC) Hypertension DX:Hypertension Vitamin D deficiency DX:Vitamin D deficiency Hypothyroidism DX:Hypothyroidis m Family History Medical History Relation Name Comments Breast cancer Mother Relation Name Status Comments Mother Social History Tobacco Use Types Packs/Day Years Used Date Smoking Tobacco: Never Smokeless Tobacco: Never Tobacco Cessation:Counseling Given: Not Answered [...] Sign Reading Time Taken Comments Blood Pressure 130/55 11/04/2024 10:49 AM EDT Pulse 65 11/04/2024 10:49 AM EDT Temperature 36.8 C (98.2 F) 11/04/2024 10:49 AM EDT Respiratory Rate - - Oxygen Saturation - - Inhaled Oxygen Concentration - - Weight 103 kg (228 lb) 11/04/2024 10:49 AM EDT Height 177.8 cm (5' 10 ) 11/04/2024 10:49 AM EDT Body Mass Index 32.71 11/04/2024 10:49 AM EDT Plan of Treatment Upcoming Encounters Date Type Department Care Team (Late st Contact Info) Description 11/04/2025 10:30 AM EDT Office Visit [facility] Hematology Oncology [address] [place] [address] Jennifer Ca MD [address] [place] [address] Health Maintenance Due Date Last Done Comments Zoster Vaccines (1 of 2) 03/23/2014 01/26/2014 RSV Immunization Adult Patients (1 - 1-dose 75+ series) 08/30/2018 COVID-19 Vaccine (3 - Moderna risk series) 09/14/2020 08/17/2020, 07/20/2020 Cholesterol Screening (Lipid Panel) 03/31/2022 Colorectal Cancer Screening: Colonoscopy 03/31/2022 Falls Risk Assessment 03/31/2022 Medicare Annual Wellness Visit 03/31/2022 Social Influencers of Health Screening 03/31/2022 Depression Screening 04/23/2024 Influenza Vaccine (#1) 2024 , 05/10/2021, 01/29/2020, Additional history exists Hypertension/CHF/CAD Annual BMP Blood Test 10/31/2025 10/31/2024, 10/23/2024, 10/22/2024, Additional history exists DTaP,Tdap,and Td Vaccines (2 [...] Procedure Name Priority Date/Time Associated Diagnosis Comments BASIC METABOLIC PANEL Routine 10/31/2024 7:20 AM EDT Spinal stenosis, site unspecified Chronic kidney disease, unspecified COMPLETE BLOOD COUNT Routine 10/31/2024 7:20 AM EDT Spinal stenosis, site unspecified Chronic kidney disease, unspecified BASIC METABOLIC PANEL Routine 10/23/2024 5:09 AM EDT Spinal stenosis, site unspecified Chronic kidney disease, unspecified COMPLETE BLOOD COUNT Routine 10/23/2024 5:09 AM EDT Spinal stenosis, site unspecified Chronic kidney disease, unspecified FERRITIN Routine 10/22/2024 5:26 AM EDT Essential [...] stage 3 unspecified (CMS/HCC V24, CMS/HCC V28) COMPLETE BLOOD COUNT Routine 10/10/2024 5:37 AM EDT Malignant neoplasm of unspecified site of unspecified female breast (CMS/HCC V24, CMS/HCC V28) Hypothyroidism, unspecified Vitamin D deficiency, unspecified Vitamin B12 deficiency anemia, unspecified Spinal stenosis, site unspecified Chronic kidney disease, stage 3 unspecified ([facility] V24, [facility] V28) DXA BONE DENSITY STUDY 1+ SITS AXIAL SKEL Routine 10/07/2021 10:23 AM EDT Other specified disorders of bone density and structure, left thigh from Last 3 Months or Most Recently Relevant to Health Maintenance Results * (ABNORMAL) Complete blood count (10/31/2024 7:20 AM EDT) Only the most recent of5 resultswithin the time period is included. WBC 3.7(L) 4.8 - 10.8 K/mcL LAB HEMETOLOGY METHOD 10/31/2024 10:38 AM [facility] RBC 3.60(L) 3.80 - 4.80 M/mcL LAB HEMETOLOGY METHOD 10/31/2024 10:38 AM [facility] Hemoglobin 9.9(L) 11.5 - 16.0 g/dL LAB HEMETOLOGY METHOD 10/31/2024 10:38 AM [facility] Hematocrit 32.8(L) 35.0 - 47.0 % LAB HEMETOLOGY METHOD 10/31/2024 10:38 AM [facility] MCV 90.6 79.0 - 98.0 FL LAB HEMETOLOGY METHOD 10/31/2024 10:38 AM [facility] MCH 27.3 27.0 - 32.0 pcg LAB HEMETOLOGY METHOD 10/31/2024 10:38 AM [facility] MCHC 30.2(L) 32.0 - 37.0 g/dL LAB HEMETOLOGY METHOD 10/31/2024 10:38 AM [facility] RDW 15.1(H) 11.0 - 15.0 % LAB HEMETOLOGY METHOD 10/31/2024 10:38 AM EDT [facility] Platelets 239 130 - 400 K/mcL LAB HEMETOLOGY METHOD 10/31/2024 10:38 AM EDT [facility] MPV 10.6 7.0 - 11.0 FL LAB HEMETOLOGY METHOD 10/31/2024 10:38 AM EDT [facility] NRBC 0.0 <1.0 % LAB HEMETOLOGY METHOD 10/31/2024 10:38 AM EDT [facility] NRBC Absolute 0.00 <0.10 K/mcL [facility] 10/31/2024 10:38 AM EDT [facility] Blood Venous blood specimen / Unknown Venipuncture / Unknown 10/31/2024 7:20 AM EDT 10/31/2024 10:27 AM EDT Ally Castañeda MD LAB BLOOD ORDERABLES Final Resul t [facility] [address] [place] [address], * Basic metabolic panel (10/31/2024 7:20 AM EDT) Only the most recent of4 resultswithin the time period is included. Sodium 142 133 - 145 mmol/L LAB CHEMISTRY METHOD 10/31/2024 11:08 AM [facility] Potassium 4.7 3.5 - 5.5 mmol/L LAB CHEMISTRY METHOD 10/31/2024 11:08 AM [facility] Chloride 109 96 - 110 mmol/L LAB CHEMISTRY METHOD 10/31/2024 11:08 AM [facility] CO2 30 21 - 32 mmol/L LAB CHEMISTRY METHOD 10/31/2024 11:08 AM EDT [facility] Anion Gap 3 3 - 11 LAB CHEMISTRY METHOD 10/31/2024 11:08 AM [facility] Glucose 78 70 - 100 mg/dL LAB CHEMISTRY METHOD 10/31/2024 11:08 AM [facility] BUN 11 5 - 25 mg/dL LAB CHEMISTRY METHOD 10/31/2024 11:08 AM [facility] Creatinine 0.92 0.50 - 1.10 mg/dL LAB CHEMISTRY METHOD 10/31/2024 11:08 AM [facility] eGFR 63 >=60 mL/min/1. 73m2 LAB CHEMISTRY METHOD 10/31/2024 11:08 AM [facility] Comment:Calculation based on the Chronic Kidney Disease Epidemiology Collaboration (CKD-EPI) equation refit without adjustment for race. BUN/Creatinine Ratio 12.0 LAB CHEMISTRY METHOD 10/31/2024 11:08 AM [facility] Calcium 8.9 8.5 - 10.5 mg/dL LAB CHEMISTRY METHOD 10/31/2024 11:08 AM [facility] Blood Venous blood specimen / Unknown Venipuncture / Unknown 10/31/2024 7:20 AM EDT 10/31/2024 10:27 AM EDT us Ally Castañeda MD LAB BLOOD ORDERABLES Final Resul t [facility] [address] [place] [address], * (ABNORMAL) Ferritin (10/22/2024 5:26 AM EDT) Ferritin 283(H) 8 - 252 ng/mL LAB CHEMISTRY METHOD 10/22/2024 9:41 AM T [facility] Blood Venous blood specimen / Unknown Venipuncture / Unknown 10/22/2024 5:26 AM EDT 10/22/2024 8:36 AM EDT us Ally Castañeda MD LAB BLOOD ORDERABLES Final Resul t Performing Organization Address City/[facility]/ZIP Co de Phone Number [facility] [address] [place] [address], [place] [phone] * Thyroid stimulating hormone with reflex to free t4 and free t3 (10/10/2024 5:37 AM EDT) Pathologist [facility] TSH 2.96 0.40 - 4.00 mcIU/mL LAB CHEMISTRY METHOD 10/10/2024 1:01 PM EDT [facility] Blood Venous blood specimen / Unknown Venipuncture / Unknown 10/10/2024 5:37 AM EDT 10/10/2024 9:30 AM EDT us Ally Castañeda MD LAB BLOOD ORDERABLES Final Resul t Performing Organization Address [facility] de Phone Number [facility] [address] [place] [address], [place] [phone] * Vitamin D 25 hydroxy (10/10/2024 5:37 AM EDT) [facility] Vit D, 25-Hydroxy 52.0 30.0 - 80.0 ng/mL LAB CHEMISTRY METHOD 10/10/2024 1:00 PM EDT [facility] Blood Venous blood specimen / Unknown Venipuncture / Unknown 10/10/2024 5:37 AM EDT 10/10/2024 9:30 AM EDT us Ally Castañeda MD LAB BLOOD ORDERABLES Final Resul t Performing Organization Address [facility] Co de Phone Number [facility] [address] [place] [address], [place] [phone] * Folate (10/10/2024 5:37 AM EDT) [facility] Folate 12.9 2.8 - 17.0 ng/ml LAB CHEMISTRY METHOD 10/10/2024 11:35 AM EDT [facility] Blood Venous blood specimen / Unknown Venipuncture / Unknown 10/10/2024 5:37 AM EDT 10/10/2024 9:30 AM EDT us Ally Castañeda MD LAB BLOOD ORDERABLES Final Resul t [facility] [address] [place] [address], [place] [phone] * Vitamin B12 (10/10/2024 5:37 AM EDT) [facility] Vitamin B-12 371 250 - 900 pcg/mL LAB CHEMISTRY METHOD 10/10/2024 11:35 AM EDT [facility] Blood Venous blood specimen / Unknown Venipuncture / Unknown 10/10/2024 5:37 AM EDT 10/10/2024 9:30 AM EDT us Ally Castañeda MD LAB BLOOD ORDERABLES Final Resul t Performing Organization Address City/[facility]/ZIP Co de Phone Number [facility] [address] [place] [address], [place] [phone] * (ABNORMAL) Comprehensive metabolic panel (10/10/2024 5:37 AM EDT) [facility] Sodium 130(L) 133 - 145 mmol/L LAB CHEMISTRY METHOD 10/10/2024 11:35 AM EDT [facility] Potassium 4.9 3.5 - 5.5 mmol/L LAB CHEMISTRY METHOD 10/10/2024 11:35 AM EDT [facility] Chloride 97 96 - 110 mmol/L LAB CHEMISTRY METHOD 10/10/2024 11:35 AM EDT [facility] CO2 28 21 - 32 mmol/L LAB CHEMISTRY METHOD 10/10/2024 11:35 AM EDT [facility] Anion Gap 5 3 - 11 LAB CHEMISTRY METHOD 10/10/2024 11:35 AM [facility] Glucose 82 70 - 100 mg/dL LAB CHEMISTRY METHOD 10/10/2024 11:35 AM [facility] BUN 37(H) 5 - 25 mg/dL LAB CHEMISTRY METHOD 10/10/2024 11:35 AM [facility] Creatinine 1.16(H) 0.50 - 1.10 mg/dL LAB CHEMISTRY METHOD 10/10/2024 11:35 AM [facility] eGFR 47(L) >=60 mL/min/1. 73m2 LAB CHEMISTRY METHOD 10/10/2024 11:35 AM [facility] Comment:Calculation based on the Chronic Kidney Disease Epidemiology Collaboration (CKD-EPI) equation refit without adjustment for race. BUN/Creatinine Ratio 31.9 LAB CHEMISTRY METHOD 10/10/2024 11:35 AM [facility] Calcium 8.9 8.5 - 10.5 mg/dL LAB CHEMISTRY METHOD 10/10/2024 11:35 AM [facility] AST (SGOT) 42 10 - 42 unit/L LAB CHEMISTRY METHOD 10/10/2024 11:35 AM [facility] ALT (SGPT) 48 10 - 60 unit/L LAB CHEMISTRY METHOD 10/10/2024 11:35 AM [facility] Alkaline Phosphatase 98 42 - 121 unit/L LAB CHEMISTRY METHOD 10/10/2024 11:35 AM [facility] Total Protein 6.3 6.0 - 8.0 g/dL LAB CHEMISTRY METHOD 10/10/2024 11:35 AM [facility] Albumin 2.3(L) 3.2 - 5.0 g/dL LAB CHEMISTRY METHOD 10/10/2024 11:35 AM [facility] Total Bilirubin 0.4 0.0 - 1.4 mg/dL LAB CHEMISTRY METHOD 10/10/2024 11:35 AM EDT [facility] Blood Venous blood specimen / Unknown Venipuncture / Unknown 10/10/2024 5:37 AM EDT 10/10/2024 9:30 AM EDT Ally Castañeda MD LAB BLOOD ORDERABLES Final Resul t [facility] [address] [place] [address], * DXA BONE DENSITY STUDY 1+ SITS AXIAL SKEL (10/07/2021 10:23 AM EDT) Anatomical Region Laterality Modality Bone Densitometr y 05/10/2021 11:5 1 AM EST Narrative 10/07/2021 4:32 PM EDT Clinical history: other osteoporosis Scans of the lumbar spine and hips were performed on a [employer] fan beam bone densitometer. Bone mineral density [...] spine and hips were performed on a [employer] beam bone densitometer. Bone mineral density measurements [...] osteoporosis < -2.5 with fractures Lorraine SCHWARTZ [employer] DXA PROCEDURES Final Resu lt from Last 3 Months or Most Recently Relevant to Health Maintenance Insurance MEDICAID - [place] [employer] MEDICARE Member Subscriber Plan / Payer (Ef fective 2012-Present) Name:Jacinda Blancas Relation to Subscriber:Self Name:Jacinda Blancas Payer ID:[id number] Group ID:[id number] Type:Not on file Address: [address] [place] [address] Care Teams Crime Specialist Relationship Specialty Start Date End Date Truong Colon MD [address] [place] [address] Dr [address] [place] PCP - General 05/19/22
--- OUTSIDE RECORDS SUMMARY | 2024-11-10 13:08 | XMS_ITS | Patient Health Record ---
Author Organization [facility] Address [address] [place] [address] Care Team Providers Care District Administrative Assistant Name Role Phone Radha Pena Primary Care Provider Timoteo Schneider Unavailable [phone] Allergies Allergen (clinical drug ingredient) Drug/Non Drug [...] Problem Status W/U Status Risk Notes Problem [id number] Encounter for screening for malignant neoplasm of colon (Z12.11) Active confirmed Problem Encounter for screening for malignant neoplasm of rectum (Z12.12) Active confirmed Problem [id number] Gastroesophageal reflux disease, esophagitis presence not specified (K21.9) Active confirmed Problem [id number] Constipation, unspecified constipation type (K59.00) Active confirmed Plan Of Treatment Future Test Test Name Order Date UPPER GI ENDOSCOPY 11/30/2015 COLONOSCOPY 11/30/2015 Insurance Providers Payer Name Payer Address Payer Phone Subscriber Number Group Number Insured Name Patient Relationship to Insured Coverage Start Date Coverage End Date [facility] [address] [place] [phone] [phone] [id number] NOE SALDIVAR Self - patient is the insured Medical (General) History Medical History History ICD Code Hypertension Kidney disease--mild renal insuffciency- -GFR of 40--Dr. Meza Denies NE,DM,CVA,Lung disease Neg. colonoscopy in 2004 exc ept for diverticulosis and internal hemorrhoids-- Neg. EGD in 2004--Dr. Bear Breast cancer on the left in 2013--lumpe ctomy and XRT Hypothyroidism GERD Surgical History Surgery Date(Month/Year) Cholecystectomy--Dr. Banks 2015 Bladder suspension Left lumpectomy for breast cancer in 4
--- OUTSIDE RECORDS SUMMARY | 2024-11-10 13:08 | XMS_ITS | Clinical Summary ---
Author Organization [facility] Address [address] [place] [address] [address] [place] [address] Phone Care Team Providers Care Deputy Chief Magistrate Name Role Phone Dimple Vergara MD Primary Care Provider Allergies No known active allergies Immunizations Immunization Administration Dates Next Due Pneumococcal polysaccharide PPSV23 02/13/2014 Social History Tobacco Use Types Packs/Day Years Used Date Smoking Tobacco: Never Assessed Comments Unknown Sex and Gender Information Value Date Recorded Sex Assigned at Not on file Legal Sex Female 7:37 PM EST Gender Identity Not on file Sexual Orientation Not on file Last Filed Vital Signs Vital Sign Reading Time Taken Comments Blood Pressure 150/66 06/12/2014 9:44 AM EST Pulse 65 06/12/2014 9:44 AM EST Temperature 36.7 C (98.1 F) 06/12/2014 9:44 AM EST Respiratory Rate 16 06/12/2014 9:44 AM EST Oxygen Saturation - - Inhaled Oxygen Concentration - - Weight 118.8 kg (262 lb) 06/12/2014 9:44 AM EST Height 177.8 cm (5' 10 ) 06/12/2014 9:44 AM EST Body Mass Index 37.59 06/12/2014 9:44 AM EST Plan of Treatment Not on file Medical Devices Not on file Insurance [facility] MEDICARE REPLACEMENT [facility] RE[facility]ARE REPLACEMENT [facility] REPL[facility] REPL[facility]IC[facility] REPLACEMENT Care Teams Deputy Chief Magistrate Relationship Specialty Start Date End Date Dimple Vergara MD [address] [place] [id number] PCP - General 11/13/13 Additional Source Comments The information contained in this document represents components of the legal health record. It is not the complete legal health record.[facility]
--- OUTSIDE RECORDS SUMMARY | 2024-11-10 13:08 | XMS_ITS | Clinical Summary ---
Author Organization [employer] [facility] Address [address] [place] [address] Care Team Providers Care Reference Services Head Name Role Phone Truong Colon MD Primary Care Provider [phone]- [phone] Allergies Active Allergy Reactions Criticality Noted Date [...] 1-dose 75+ series) 08/30/2018 Influenza Vaccine (#1) 2024 2, 05/10/2021, 01/29/2020, Additional history exists Hepatitis B Vaccines Completed 08/30/2015, 04/05/2015, 03/01/2015 Pneumococcal Vaccine Completed 03/18/2019, 04/07/2016, 02/13/2014, Additional history exists RSV Ped < 20 months Aged Out No longe r eligible based on patient's age to complete this topic Care Teams Reference Services Head Relationship Specialty Start Date End Date Truong Colon MD [address] [place] [address] PCP - General Internal Medicine 05/19/22
== END 2024-11-10 13:17 | disposition home or self-care (01) ==
LOC: HO.HMCH 12:20
PROVIDERS: PCP Internal Medicine; Visit Provider Internal Medicine
DX: I12.9 Hypertensive chronic kidney disease with stage 1 through stage 4 chronic kidney disease, or unspecified chronic kidney disease (principal); N18.32 Chronic kidney disease, stage 3b; M47.816 Spondylosis without myelopathy or radiculopathy, lumbar region; G44.86 Cervicogenic headache; E03.9 Hypothyroidism, unspecified; M35.00 Sjogren syndrome, unspecified; K21.9 Gastro-esophageal reflux disease without esophagitis; R13.10 Dysphagia, unspecified; M79.89 Other specified soft tissue disorders; J98.59 Other diseases of mediastinum, not elsewhere classified; K59.04 Chronic idiopathic constipation; M79.7 Fibromyalgia

== ENCOUNTER → 2024-11-10 12:20 | Outpatient (BNVA) | payer OTHER, SELFPAY | PROVIDERS: PCP Internal Medicine; Visit Provider Internal Medicine | DX: M47.816 Spondylosis without myelopathy or radiculopathy, lumbar region (principal); G44.86 Cervicogenic headache; E03.9 Hypothyroidism, unspecified; I12.9 Hypertensive chronic kidney disease with stage 1 through stage 4 chronic kidney disease, or unspecified chronic kidney disease; N18.2 Chronic kidney disease, stage 2 (mild); M35.00 Sjogren syndrome, unspecified; K21.9 Gastro-esophageal reflux disease without esophagitis; R13.10 Dysphagia, unspecified; M79.89 Other specified soft tissue disorders; J98.59 Other diseases of mediastinum, not elsewhere classified; K59.04 Chronic idiopathic constipation; M79.7 Fibromyalgia; M17.11 Unilateral primary osteoarthritis, right knee; F41.9 Anxiety disorder, unspecified; E66.9 Obesity, unspecified; Z68.31 Body mass index [BMI] 31.0-31.9, adult | CPT/HCPCS: 96127; 99212 ==

== ENCOUNTER 2024-11-10 13:36 | Outpatient (REF) | payer OTHER, SELFPAY ==
--- NOTE | ~2024-11-10 | US_ITS ---
EXAMINATION: US TRIPLEX LOWER EXTREMITY, RIGHT CLINICAL INFORMATION: Right lower extremity pain. COMPARISON: None available. TECHNIQUE: Color-flow triplex imaging with spectral analysis and compression Doppler were performed on the right lower extremity. FINDINGS: Respiratory variation, normal compression and augmented flow are noted throughout the right lower extremity. The visualized common femoral vein, superficial femoral vein, profunda femoral vein, popliteal vein and midcalf posterior tibial venous segments show no evidence of deep venous thrombosis. The peroneal vein could not be visualized. There is no Chavez's cyst. US/US venous duplex LE RT IMPRESSION: No evidence of deep venous thrombosis involving the right lower extremity. Electronically signed by: Moi Cast MD 11/10/2024 04:07 PM EDT
== END 2024-11-10 13:37 | disposition home or self-care (01) ==
LOC: HO.US 13:36
PROVIDERS: PCP Internal Medicine; Visit Provider Internal Medicine
DX: M79.661 Pain in right lower leg (principal); M79.89 Other specified soft tissue disorders
CPT/HCPCS: 93971

== ENCOUNTER → 2024-11-10 13:40 | Outpatient (BNV) | payer OTHER, SELFPAY | PROVIDERS: PCP Internal Medicine; Visit Provider Radiology Diagnostic Radiology | DX: M79.604 Pain in right leg (principal) | CPT/HCPCS: 93971 ==

== ENCOUNTER 2024-11-19 14:57 | Outpatient (AMB) | payer OTHER, SELFPAY ==
--- OUTSIDE RECORDS SUMMARY | 2024-10-30 10:45 | XMS_ITS ---
Author Organization [facility] Address [address] [place] [address] Care Team Providers Care Gluing Machine Operator Electronic Name Role Phone Isiaah DURAN, Truong Primary Care Provider UnaBoby Bermudez Unavailable [phone] Encounters Encounter Location Date Provider Diagnosis [facility] [address] [address] 10/30/2024 Boby Chapman Plan Of Treatment Next Appt Details Provider Name:Boby Chapman , 12/15/2024 01:45:00 PM, [address] [facility], [place] [address], [place], [address], Progress Notes * Tommie BLANCASOB:[birth year] (79 yo F)Acc No.[id number]:10/30/2024 Progress Note Patient: Jacinda NUNEZ Provider: Alex Chapman DPM :1945 A ge:79 Y S ex:Female Date:10/30/2024 Address:[address] [place] [address], [place], [id number] Pcp:Truong Colon MD Subjective: * Chief Complaints: [...] 0 10/30/2024 Generated for Yovanny toussaint/Daniel on: 11/19/2024 03:42 PM EDT
--- NOTE | 2024-11-19 15:17 | HO.SPINEOV ---
Intake Visit Reasons: F/u after Rehab Intake Note: Ms. Blancas is here c/o discoloration of the legs and also for a F/u after Rehab. Supervisor [employer] Accounts Required: Yes Supervisor [employer] Accounts Name: Jessa (Daughter) Allergies Penicillins (PENICILLINS) Allergy (Intermediate, Verified 11/19/24 15:18) rash senna Allergy (Intermediate, Verified 11/19/24 15:18) rash Assessment & Plan Assessment & Plan (1) Lumbar radiculopathy: Code(s): M54.16 - Radiculopathy, lumbar region Category: Medical Plan Dear colleague, On 11/19/2024, I saw postoperative visit Jacinda Blancas. She is an 79-year-old female that underwent a left L2-3 decompression on 10/01/2024. Accordingly, she went to rehab for further recovery. She denies any left-sided symptoms. However, she has a painful swollen, warm and red right lower leg and foot. In a DVT was excluded. She states that the redness has developed in the last few days. The symptoms are suspicious for erysipelas. I notified you and I advised the patient to call your office tomorrow for further evaluation as she does not want to go to the emergency room right now. Thank you for allowing me take care of your patient. Kota Merino MD, PhD Spine Fellowship Trained Neurosurgeon Director, [facility] Coding Level of Care Code Global (92558) Diagnoses Lumbar radiculopathy M54.16
--- OUTSIDE RECORDS SUMMARY | 2024-11-19 15:42 | XMS_ITS | Encounter Summary ---
Author Organization [facility] Address [address] [place] [address] Phone Care Team Providers Care Thermal Cutting Tracer Machine Operator Name Role Phone Truong Colon MD Primary Care Provider [phone] Encounter Details Date Type Department Care Team (Late Contact Info) Description 08/12/2024 Documentation Only [facility] [address] [place] [address] [place] [address] [place] [phone] Social History Tobacco Use Types Packs/Day [...] Visit [facility] [address] [place] [address] Romero Jimenez MD [address] [place] [address] [place] [address] documented as of this encounter Visit Diagnoses Not on filedocumented in this encounter Care Teams Thermal Cutting Tracer Machine Operator Relationship Specialty Start Date End Date Truong Colon MD [address] [place] [address] PCP - General Internal Medicine 03/06/23 documented as of this encounter
--- OUTSIDE RECORDS SUMMARY | 2024-11-19 15:42 | XMS_ITS | Patient Health Record ---
Author Organization [employer] [facility] Address [address] [place] [address] Care Team Providers Care Production Inspector Name Role Phone Radha Pena Primary Care Provider Timoteo Schneider Unavailable [phone] Allergies Allergen (clinical drug ingredient) Drug/Non Drug [...] Problem Status W/U Status Risk Notes Problem [id number] Encounter for screening for malignant neoplasm of colon (Z12.11) Active confirmed Problem Screening for malignant neoplasm of rectum (862984524) Encounter for screening for malignant neoplasm of rectum (Z12.12) Active confirmed Problem [id number] Gastroesophageal reflux disease, esophagitis presence not specified (K21.9) Active confirmed Problem [id number] Constipation, unspecified constipation type (K59.00) Active confirmed Plan Of Treatment Future Test Test Name Order Date UPPER GI ENDOSCOPY 11/30/2015 COLONOSCOPY 11/30/2015 Insurance Providers Payer Name Payer Address Payer Phone Subscriber Number Group Number Insured Name Patient Relationship to Insured Coverage Start Date Coverage End Date [facility] [address] [place] [address] [id number] NOE SALDIVAR Self - patient is the insured Medical (General) History Medical History History ICD Code Hypertension Kidney disease--mild renal insuffciency- -GFR of 40--Dr. Meza Denies IN,DM,CVA,Lung disease Neg. colonoscopy in 2004 exc ept for diverticulosis and internal hemorrhoids-- Neg. EGD in 2004--Dr. Bear Breast cancer on the left in 2013--lumpe ctomy and XRT Hypothyroidism GERD Surgical History Surgery Date(Month/Year) Cholecystectomy--Dr. Banks 2014 Bladder suspension Left lumpectomy for breast cancer in 4
--- OUTSIDE RECORDS SUMMARY | 2024-11-19 15:43 | XMS_ITS | Clinical Summary ---
Author Organization [employer] [facility] Address [address] [place] [address] Care Team Providers Care Tax Form Preparer Name Role Phone Truong Colon MD Primary Care Provider +1- [phone] Allergies Active Allergy Reactions Criticality Noted Date [...] age to complete this topic Care Teams Tax Form Preparer Relationship Specialty Start Date End Date Truong Colon MD [address] [place] [address] PCP - General Internal Medicine 05/19/22
--- OUTSIDE RECORDS SUMMARY | 2024-11-19 15:43 | XMS_ITS | Clinical Summary ---
Author Organization [facility] Address [address] [place] [address] Phone Care Team Providers Care Brick Burner Head Name Role Phone Truong Colon MD Primary Care Provider [phone] Allergies Active Allergy Reactions Criticality Noted Date [...] left breast in female, estrogen receptor positive ([facility] V24, [facility] V28) 07/03/2023 Iron deficiency anemia 05/18/2022 Acquired hypothyroidism 03/28/2017 Gastroesophageal reflux disease without esophagi tis 03/28/2017 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 Encounters Date Type Department Care Team Description 11/06/2024 Lab Requisition [facility] [address] [place] [phone] Ally Castañeda MD Spinal stenosis, site unspecified; Chronic kidney disease, unspecified 11/04/2024 10:45 AM EDT Office Visit [facility] Hematology Oncology [address] [place] [phone] Jillian-Jennifer Gonzalez MD Malignant neoplasm of upper-outer quadrant of left breast in female, estrogen receptor positive ([facility] V24, [facility] V28) (Primary Dx) 10/30/2024 Lab Requisition [facility] [address] [place] [phone] Ally Castañeda MD Spinal stenosis, site unspecified; Chronic kidney disease, unspecified 10/22/2024 Lab Requisition [facility] [address] [place] [phone] Ally Castañeda MD Spinal stenosis, site unspecified; Chronic kidney disease, unspecified 10/22/2024 Lab Requisition [facility] [address] [place] [phone] Ally Castañeda MD Essential (primary) hypertension; Anemia, unspecified 10/16/[address] [facility] [address] [place] [address] Ally Castañeda MD Spinal stenosis, site unspecified; Chronic kidney disease, unspecified 10/10/[address] [facility] [address] [place] [phone] Ally Castañeda MD Malignant neoplasm of unspecified site of unspecified female breast ([facility] V24, [facility] V28); Hypothyroidism, unspecified; Vitamin D deficiency, unspecified; Vitamin B12 deficiency anemia, unspecified; Spinal stenosis, site unspecified; Chronic kidney disease, stage 3 unspecified ([facility], [facility] V28) from Last 3 Months Surgical History Surgery Date Site/Laterality Comments LUMBAR DISC SURGERY PROCEDURE:LUMBAR DISC SURGERY Medical History Medical History Date Comments Malignant neoplasm of upper- outer quadrant of left female breast ([facility] V24, [facility] V28) DX:Malignant neoplasm of upp er-outer [...] Description 11/04/2025 10:30 AM EDT Office Visit [facility] Hematology Oncology [address] [place] [address] Jennifer Ca MD [address] [place] [address] Health Maintenance Due Date Last [...] unspecified Chronic kidney disease, stage 3 unspecified ([facility] V24, [facility] V28) DXA BONE DENSITY STUDY 1+ SITS [...] K/mcL LAB HEMETOLOGY METHOD 10/31/2024 10:38 AM [facility] RBC 3.60(L) 3.80 - 4.80 M/mcL LAB HEMETOLOGY METHOD 10/31/2024 10:38 AM [facility] Hemoglobin 9.9(L) 11.5 - 16.0 g/dL LAB HEMETOLOGY METHOD 10/31/2024 10:38 AM [facility] Hematocrit 32.8(L) 35.0 - 47.0 % LAB HEMETOLOGY METHOD 10/31/2024 10:38 AM [facility] MCV 90.6 79.0 - 98.0 FL LAB HEMETOLOGY METHOD 10/31/2024 10:38 AM [facility] MCH 27.3 27.0 - 32.0 pcg LAB HEMETOLOGY METHOD 10/31/2024 10:38 AM [facility] MCHC 30.2(L) 32.0 - 37.0 g/dL LAB HEMETOLOGY METHOD 10/31/2024 10:38 AM [facility] RDW 15.1(H) 11.0 - 15.0 % LAB HEMETOLOGY METHOD 10/31/2024 10:38 AM EDT [facility] Platelets 239 130 - 400 K/mcL LAB HEMETOLOGY METHOD 10/31/2024 10:38 AM EDT [facility] MPV 10.6 7.0 - 11.0 FL LAB HEMETOLOGY METHOD 10/31/2024 10:38 AM EDT [facility] NRBC 0.0 <1.0 % LAB HEMETOLOGY METHOD 10/31/2024 10:38 AM EDT [facility] NRBC Absolute 0.00 <0.10 K/mcL [facility] 10/31/2024 10:38 AM EDT [facility] Blood Venous blood specimen / Unknown Venipuncture / Unknown 10/31/2024 7:20 AM EDT 10/31/2024 10:27 AM EDT Ally Castañeda MD LAB BLOOD ORDERABLES Final Resul t [facility] [address] [place] [address], * Basic metabolic panel (10/31/2024 7:20 AM EDT) Only the most recent of4 resultswithin the time period is included. Sodium 142 133 - 145 mmol/L LAB CHEMISTRY METHOD 10/31/2024 11:08 AM [facility] Potassium 4.7 3.5 - 5.5 mmol/L LAB CHEMISTRY METHOD 10/31/2024 11:08 AM [facility] Chloride 109 96 - 110 mmol/L LAB CHEMISTRY METHOD 10/31/2024 11:08 AM [facility] CO2 30 21 - 32 mmol/L LAB CHEMISTRY METHOD 10/31/2024 11:08 AM EDT [facility] Anion Gap 3 3 - 11 LAB CHEMISTRY METHOD 10/31/2024 11:08 AM [facility] Glucose 78 70 - 100 mg/dL LAB CHEMISTRY METHOD 10/31/2024 11:08 AM [facility] BUN 11 5 - 25 mg/dL LAB CHEMISTRY METHOD 10/31/2024 11:08 AM [facility] Creatinine 0.92 0.50 - 1.10 mg/dL LAB CHEMISTRY METHOD 10/31/2024 11:08 AM [facility] eGFR 63 >=60 mL/min/1. 73m2 LAB CHEMISTRY METHOD 10/31/2024 11:08 AM [facility] Comment:Calculation based on the Chronic Kidney Disease Epidemiology Collaboration (CKD-EPI) equation refit without adjustment for race. BUN/Creatinine Ratio 12.0 LAB CHEMISTRY METHOD 10/31/2024 11:08 AM [facility] Calcium 8.9 8.5 - 10.5 mg/dL LAB CHEMISTRY METHOD 10/31/2024 11:08 AM [facility] Blood Venous blood specimen / Unknown Venipuncture / Unknown 10/31/2024 7:20 AM EDT 10/31/2024 10:27 AM EDT us Ally Castañeda MD LAB BLOOD ORDERABLES Final Resul t [facility] [address] [place] [address], * (ABNORMAL) Ferritin (10/22/2024 5:26 AM EDT) Ferritin 283(H) 8 - 252 ng/mL LAB CHEMISTRY METHOD 10/22/2024 9:41 AM T [facility] Blood Venous blood specimen / Unknown Venipuncture / Unknown 10/22/2024 5:26 AM EDT 10/22/2024 8:36 AM EDT us Ally Castañeda MD LAB BLOOD ORDERABLES Final Resul t Performing Organization Address City/[facility]/ZIP Co de Phone Number [facility] [address] [place] [address], [place] [phone] * Thyroid stimulating hormone with reflex to free t4 and free t3 (10/10/2024 5:37 AM EDT) Pathologist [facility] TSH 2.96 0.40 - 4.00 mcIU/mL LAB CHEMISTRY METHOD 10/10/2024 1:01 PM EDT [facility] Blood Venous blood specimen / Unknown Venipuncture / Unknown 10/10/2024 5:37 AM EDT 10/10/2024 9:30 AM EDT us Ally Castañeda MD LAB BLOOD ORDERABLES Final Resul t Performing Organization Address [facility] de Phone Number [facility] [address] [place] [address], [place] [phone] * Vitamin D 25 hydroxy (10/10/2024 5:37 AM EDT) [facility] Vit D, 25-Hydroxy 52.0 30.0 - 80.0 ng/mL LAB CHEMISTRY METHOD 10/10/2024 1:00 PM EDT [facility] Blood Venous blood specimen / Unknown Venipuncture / Unknown 10/10/2024 5:37 AM EDT 10/10/2024 9:30 AM EDT us Ally Castañeda MD LAB BLOOD ORDERABLES Final Resul t Performing Organization Address [facility] Co de Phone Number [facility] [address] [place] [address], [place] [phone] * Folate (10/10/2024 5:37 AM EDT) [facility] Folate 12.9 2.8 - 17.0 ng/ml LAB CHEMISTRY METHOD 10/10/2024 11:35 AM EDT [facility] Blood Venous blood specimen / Unknown Venipuncture / Unknown 10/10/2024 5:37 AM EDT 10/10/2024 9:30 AM EDT us Ally Castañeda MD LAB BLOOD ORDERABLES Final Resul t [facility] [address] [place] [address], [place] [phone] * Vitamin B12 (10/10/2024 5:37 AM EDT) [facility] Vitamin B-12 371 250 - 900 pcg/mL LAB CHEMISTRY METHOD 10/10/2024 11:35 AM EDT [facility] Blood Venous blood specimen / Unknown Venipuncture / Unknown 10/10/2024 5:37 AM EDT 10/10/2024 9:30 AM EDT us Ally Castañeda MD LAB BLOOD ORDERABLES Final Resul t Performing Organization Address City/[facility]/ZIP Co de Phone Number [facility] [address] [place] [address], [place] [phone] * (ABNORMAL) Comprehensive metabolic panel (10/10/2024 5:37 AM EDT) [facility] Sodium 130(L) 133 - 145 mmol/L LAB CHEMISTRY METHOD 10/10/2024 11:35 AM EDT [facility] Potassium 4.9 3.5 - 5.5 mmol/L LAB CHEMISTRY METHOD 10/10/2024 11:35 AM EDT [facility] Chloride 97 96 - 110 mmol/L LAB CHEMISTRY METHOD 10/10/2024 11:35 AM EDT [facility] CO2 28 21 - 32 mmol/L LAB CHEMISTRY METHOD 10/10/2024 11:35 AM EDT [facility] Anion Gap 5 3 - 11 LAB CHEMISTRY METHOD 10/10/2024 11:35 AM [facility] Glucose 82 70 - 100 mg/dL LAB CHEMISTRY METHOD 10/10/2024 11:35 AM [facility] BUN 37(H) 5 - 25 mg/dL LAB CHEMISTRY METHOD 10/10/2024 11:35 AM [facility] Creatinine 1.16(H) 0.50 - 1.10 mg/dL LAB CHEMISTRY METHOD 10/10/2024 11:35 AM [facility] eGFR 47(L) >=60 mL/min/1. 73m2 LAB CHEMISTRY METHOD 10/10/2024 11:35 AM [facility] Comment:Calculation based on the Chronic Kidney Disease Epidemiology Collaboration (CKD-EPI) equation refit without adjustment for race. BUN/Creatinine Ratio 31.9 LAB CHEMISTRY METHOD 10/10/2024 11:35 AM [facility] Calcium 8.9 8.5 - 10.5 mg/dL LAB CHEMISTRY METHOD 10/10/2024 11:35 AM [facility] AST (SGOT) 42 10 - 42 unit/L LAB CHEMISTRY METHOD 10/10/2024 11:35 AM [facility] ALT (SGPT) 48 10 - 60 unit/L LAB CHEMISTRY METHOD 10/10/2024 11:35 AM [facility] Alkaline Phosphatase 98 42 - 121 unit/L LAB CHEMISTRY METHOD 10/10/2024 11:35 AM [facility] Total Protein 6.3 6.0 - 8.0 g/dL LAB CHEMISTRY METHOD 10/10/2024 11:35 AM [facility] Albumin 2.3(L) 3.2 - 5.0 g/dL LAB CHEMISTRY METHOD 10/10/2024 11:35 AM [facility] Total Bilirubin 0.4 0.0 - 1.4 mg/dL LAB CHEMISTRY METHOD 10/10/2024 11:35 AM EDT [facility] Blood Venous blood specimen / Unknown Venipuncture / Unknown 10/10/2024 5:37 AM EDT 10/10/2024 9:30 AM EDT Ally Castañeda MD LAB BLOOD ORDERABLES Final Resul t [facility] [address] [place] [address], * DXA BONE DENSITY STUDY 1+ SITS AXIAL SKEL (10/07/2021 10:23 AM EDT) Anatomical Region Laterality Modality Bone Densitometr y 05/10/2021 11:5 1 AM EST Narrative 10/07/2021 4:32 PM EDT Clinical history: other osteoporosis Scans of the lumbar spine and hips were performed on a [employer] fan beam bone densitometer. Bone mineral density [...] spine and hips were performed on a [employer]/B[employer]fan beam bone densitometer. Bone mineral density measurements [...] Group ID:[id number] Type:Not on file Address: [address] [place] [address] Care Teams Brick Burner Head Relationship Specialty Start Date End Date Truong Colon MD [address] [place] [address] Dr [address] [place] PCP - General 05/19/22
--- OUTSIDE RECORDS SUMMARY | 2024-11-19 15:43 | XMS_ITS | Clinical Summary ---
Author Organization [facility] Address [address] [place] [address] [address] [place] [address] Phone Care Team Providers Care Supervisor Microfilm Duplicating Unit Name Role Phone Dimple Vergara MD Primary [...] file Medical Devices Not on file Insurance [facility] MED[employer]ARE REPLACEMENT [facility] [employer]EMENT [facility] [employer] [facility] [facility] [employer] [facility]EMENT [facility] [employer]EMENT [facility] [employer] [facility]PL[employer]EMENT [facility] [employer] REPLACEMENT [facility] [employer] REPLACEMENT [facility] [employer] REPLACEMENT Care Teams Supervisor Microfilm Duplicating Unit Relationship Specialty Start Date End Date Dimple Vergara MD [address] [place] [id number] PCP - General 11/13/13 Additional Source Comments The information contained in this document represents components of the legal health record. It is not the complete legal health record.[facility]
== END 2024-11-19 16:17 | disposition home or self-care (01) ==
LOC: HO.HNS 14:58
PROVIDERS: PCP Internal Medicine; Visit Provider Neurological Surgery
DX: M54.16 Radiculopathy, lumbar region (principal)
CPT/HCPCS: 99024

== ENCOUNTER → 2024-11-19 14:57 | Outpatient (BNVA) | payer OTHER, SELFPAY | PROVIDERS: PCP Internal Medicine; Visit Provider Neurological Surgery | DX: Z09 Encounter for follow-up examination after completed treatment for conditions other than malignant neoplasm (principal); M54.16 Radiculopathy, lumbar region; M79.661 Pain in right lower leg; R22.41 Localized swelling, mass and lump, right lower limb | CPT/HCPCS: 99212 ==

== ENCOUNTER 2024-11-21 16:27 | Outpatient (AMB) | payer OTHER, SELFPAY ==
--- OUTSIDE RECORDS SUMMARY | 2024-10-30 10:45 | XMS_ITS ---
Author Organization [facility] Address [address] [place] [address] Care Team Providers Care Raw Hide Trimmer Name Role Phone Isaiah DURAN, Truong Primary Care Provider UnaBoby Bermudez Unavailable [phone] Encounters Encounter Location Date Provider Diagnosis [facility] [address] [address] 10/30/2024 Boby Chapman Plan Of Treatment Next Appt Details Provider Name:Boby Chapman , 12/15/2024 01:45:00 PM, [address] [facility], [place] [address], [place], [address], Progress Notes * Tommie BLANCASOB:[birth year] (79 yo F)Acc No.[id number]:10/30/2024 Progress Note Patient: Jacinda NUNEZ Provider: Alex Chapman DPM :1945 A ge:79 Y S ex:Female Date:10/30/2024 Address:[address] [place] [address], [place], [id number] Pcp:Truong Colon MD Subjective: * Chief Complaints: [...] 10/30/2024 Generated for Yovanny toussaint/Daniel on: 0 11/21/2024 04:30 PM EDT
--- NOTE | 2024-11-21 16:29 | MHC.PC.OV ---
Vital Signs 11/21/24 16:30 Height 5 ft 11 in Weight 233 lb 11.04 oz BMI 32.6 BP 130/62 Blood Pressure Location Lt brachial Position Sitting Respiration 18 Pulse 67 Pulse Source Pulse Oximeter Temp Source Temporal Artery Scan Pulse Oximetry (%) 94 Oxygen Delivery Method Room Air Intake Visit Reasons: infection in leg Production Utility Worker Required: No Accompanied by: Daughter Allergies Penicillins (PENICILLINS) Allergy (Intermediate, Verified 11/21/24 16:50) rash senna Allergy (Intermediate, Verified 11/21/24 16:50) rash Medication List - Last Reconciled 11/21/24 by GLORIA Mcdermott amlodipine 10 mg PO DAILY 90 days bisacodyl 5 mg PO BEDTIME 90 days calcitriol 1 mcg PO WE@1645 cane As directed - use when walking carvedilol 12.5 mg PO BID [Commode As directed] [DISPOSABLE BED PADS Use as directed ONCE A DAY] [DISPOSABLE GLOVES - LARGE (1 box/month) Use as directed] docusate sodium (Colace) 100 mg PO BID [FEMININE PADS As directed] gabapentin 300 mg PO BID 30 days levothyroxine 125 mcg PO DAILY@0600 [MEDICATED INCONTINENCE WIPES As directed] multivitamin 1 tab PO DAILY omeprazole 40 mg PO DAILY@0630 oxycodone 5 mg PO Q6H PRN [ROLLATOR As directed] [ROLLATOR As directed] tizanidine 2 mg PO TID PRN Tobacco use date assessed: 11/21/24 Fall risk assessment: 1 Fall in past year Dental Screening Dental Screen Date: 11/21/24 Did you have a dental visit in the last 12 months?: Yes Did you have a dental problem in the last 6 months where you did not have access to dental care?: No Was dental information given to patient?: Patient has dentist HPI infection in leg HPI Details The patient is a 79-year-old female with past medical history of benign essential hypertension, osteopenia, primary osteoarthritis of the right knee, Raynaud's disease, chronic kidney disease, acquired hypothyroidism and post laminectomy syndrome. The patient is coming in with concerns of right leg pain. She recently had a right L2-L3 decompression surgery with Dr. Merino. The patient was sent by his office to be evaluated for right leg with concerns of erysipelas infection. Patient right leg is swollen and warm to touch redness in the lower portion of the leg demarcated. Patient complained of pain in the leg and would like to get medication to help her with the swelling in her legs. She was already ruled out for DVT. Initially, ordered naproxen 500 mg b.i.d. p.r.n. for 14 days but after further review of the patient's chart the medication was discontinued and the patient was placed prednisone 20 mg x7 days instead to help with the inflammation. The patient is allergic to penicillin; clindamycin 300 mg q8H x 7 days ordered, with plans for the patient to return in 2 weeks for evaluation. [facility] Medical History Ambulates with cane Difficulty swallowing Osteoarthritis of right knee BPV (benign positional vertigo) Gait instability Cervicogenic headache Cervicalgia Vertigo Chronic kidney disease, stage III (moderate) Obesity (BMI 30-39.9) Gastritis Benign essential hypertension GERD without esophagitis Acquired hypothyroidism Constipation Lumbar spondylosis Post laminectomy syndrome Connective tissue disease Interstitial lung disease Osteopenia PAC (premature atrial contraction) Sjogrens syndrome Hypothyroid Breast cancer Raynauds disease SAMARA positive Surgical History Status post lumbar spine surgery for decompression of spinal cord History of video-assisted thoracoscopic surgery (VATS) (03/13/24) 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) Hx of colonoscopy Hx of tubal ligation H/O varicose vein stripping History of cataract surgery H/O lumpectomy Hx of cholecystectomy History of back surgery Family History Father Emphysema of lung Cancer Brother Emphysema of lung Mother Bone cancer Son PONV (postoperative nausea and vomiting) Other Arthritis Social History Household Members: Significant Other and Children Housing: Apartment Are you a primary acute care nurse to a significant other at home: No Do you presently have visiting nurse or other home services: Yes (ELECTRIC METER REPAIRER 4 days a week, 2.5 hours) Alcohol intake: never Comment: pt reports this is her baseline pain Patient Tobacco Use Status: Never used Tobacco e-Cigarette/Vaping Use: Never Used Second Hand Smoke Exposure: No service: No Current occupational status: retired Cognitive needs: No Hearing needs: No Vision needs: Yes (Glasses) Questionnaire PHQ-9 Over the last 2 weeks, how often have you been bothered by any of the following problems? 1. Little interest or pleasure in doing things: not at all 2. Feeling down, depressed, or hopeless: not at all 3. Trouble falling or staying asleep, or sleeping too much: not at all 4. Feeling tired or having little energy: not at all 5. Poor appetite or overeating: not at all 6. Feeling bad about yourself - or that you are a failure or have let yourself or your family down: not at all 7. Trouble concentrating on things, such as reading the newspaper or watching television: not at all 8. Moving or speaking so slowly that other people could have noticed. Or the opposite - being so fidgety or restless that you have been moving around a lot more than usual: not at all 9. Thoughts that you would be better off or of hurting yourself in some way: not at all Total score: 0 Depression Screening Interpretation: Negative Depression Screening Done: Yes Source: Developed by Drs. Timoteo Covington, Lucy Arndt, Guevara Jewell and colleagues, with an educational tere from [employer]. Thrive Questionnaire Date Thrive assessed: 11/21/24 I am a: Patient What is your living situation today?: I have a place to live, but I am worried about losing it in the future Within the past 12 months, did the food you bought not last and you didn't have the money to get more?: I choose not to answer this question Within the past 12 months, did you worry whether your food would run out before you got money to buy more?: I choose not to answer this question Do you have trouble paying for medicines?: I choose not to answer this question Do you have trouble getting transportation to medical appointments?: I choose not to answer this question Do you have trouble paying your heating and electricity bill?: I choose not to answer this question Do you have trouble taking care of your child, family member or friend?: I choose not to answer this question Do you have trouble with day-to-day activities such as bathing, preparing meals, shopping, managing finances, etc.?: I choose not to answer this question Are you currently unemployed and looking for a job?: I choose not to answer this question Are you interested in more education?: I choose not to answer this question Please select the resources that you would like help with: None Currently or been in a relationship where the following occur: I choose not to answer THRIVE Score: 1 AUDIT C Alcohol Use Questionnaire (AUDIT-C) 1. How often do you have a drink containing alcohol?: Never 3. How often do you have six or more drinks on one occasion?: Never Total Score: 0 Score Reviewed/Action Taken: Yes MO-7 AMB Questionnaire MO-7 Date MO - 7 assessed: 11/21/24 Worrying too much about different things: 1 = Several days Trouble relaxin = Several days Being so restless that it is hard to sit still: 1 = Several days Becoming easily annoyed or irritable: 0 = Not at all Feeling afraid as if something awful might happen: 0 = Not at all Source: Developed by Drs. Timoteo Covington, Lucy Arndt, Guevara Jewell and colleagues, with an educational tere from [employer]. Review of Systems Const Denies body aches, Denies chills, Denies fever(s), Denies headache(s) and Denies poor appetite Eyes Reports no additional complaints ENT Denies dysphagia, Denies dizziness, Denies headache(s) and Denies odynophagia Card Denies chest pain, Denies syncope, Denies edema, Denies irregular heart rhythm, Denies lightheadedness and Denies dyspnea Resp Denies cough and Denies dyspnea GI Denies abdominal pain, Denies constipation, Denies dysphagia, Denies diarrhea, Denies nausea, Denies odynophagia and Denies vomiting Reports no additional complaints Musc Reports no additional complaints and Denies abnormal gait Skin/Breast Reports other (Right leg skin infection) Neuro Denies abnormal gait, Denies dizziness, Denies syncope and Denies headache(s) Psych Reports no additional complaints Physical exam (Primary Care) Vital Signs: Last Vital Signs Pulse 67 11/21/24 16:30 Resp 18 11/21/24 16:30 BP 130/62 11/21/24 16:30 Pulse Ox 94 11/21/24 16:30 Oxygen Delivery Method Room Air 11/21/24 16:30 BMI result Body Mass Index 32.6 Tobacco/Smoking Status: Tobacco use Status Tobacco use date assessed 11/21/24 11/21/24 16:41 Patient Tobacco Use Status Never used Tobacco 11/21/24 16:41 e-Cigarette/Vaping Use Never Used 11/21/24 16:41 PHQ-9: PHQ-9 Score PHQ-9: Total score 0 11/21/24 16:41 Depression Screening Interpretation: Negative Thrive Assessment: Date of Thrive Assessment Date Thrive assessed 11/21/24 11/21/24 16:41 Currently or been in a relationship where the following occur: I choose not to answer Const General: cooperative, healthy appearing, comfortable and no acute distress Orientation/consciousness: patient oriented x3 HENMT Head: Yes normocephalic Ears: hearing grossly normal bilaterally General nose exam: Normal external nose present Eyes General: appearance normal, both eyes and all related structures Conjunctivae: conjunctivae normal Neck Neck: Yes full ROM and Yes no lymphadenopathy Resp Effort & Inspection: normal respiratory effort Auscultation: clear to auscultation bilaterally, no crackles, no rales, no rhonchi and no wheezes Cardio Rate: regular rate Rhythm: regular rhythm Skin General skin exam: erythema Full body images:  1. Right lower leg edematous, erythematous-demarcated and warmth/tender touch Neuro General: patient oriented x3 Gait exam (Neuro): Normal gait present Extrem General: Yes normal to inspection, Yes full ROM and No edema Psych Affect: normal affect Attitude: cooperative Insight: Good insight present (Psych) Judgement: Good judgement present (Psych) Coding Level of Care Code Est Pt Level 3 (09257) Diagnoses Erysipelas of right lower extremity A46 Time Spent (min) 31 Assessment & Plan Assessment & Plan (1) Erysipelas of right lower extremity: Code(s): A46 - Erysipelas Category: Medical Plan: Suspicion due to demarcated redness warmth, pain and swelling in the lower leg. The patient is allergic to penicillin, so clindamycin 300 mg Q 8 hours x7 days ordered. Prednisone 20 mg x 7 days ordered. The patient was encouraged to increase her fluids hydration. Patient to return in 2 weeks for re-evaluation of right lower leg. Medications: New prednisone 20 mg PO DAILY 7 tabs 0RF clindamycin HCl (Cleocin HCl) 300 mg PO Q8H 21 caps 0RF 7 days Discontinued methocarbamol Discontinued Reason: Insurance Denied 500 mg PO Q8H 30 tabs 0RF
[2024-11-21 16:30] VITALS: BP 130/62; PULSE 67; RESP 18; O2SAT 94; BMI 32.6
--- OUTSIDE RECORDS SUMMARY | 2024-11-21 16:30 | XMS_ITS | Patient Health Record ---
Author Organization [facility] Address [address] [place] [address] Care Team Providers Care Optical Glass Sawyer Name Role Phone Radha Pena Primary Care Provider Timoteo Schneider Unavailable [phone] Allergies Allergen (clinical drug ingredient) Drug/Non Drug [...] Problem Status W/U Status Risk Notes Problem 540410088 Encounter for screening for malignant neoplasm of colon (Z12.11) Active confirmed Problem Screening for malignant neoplasm of rectum (621974109) Encounter for screening for malignant neoplasm of rectum (Z12.12) Active confirmed Problem [id number] Gastroesophageal reflux disease, esophagitis presence not specified (K21.9) Active confirmed Problem [id number] Constipation, unspecified constipation type (K59.00) Active confirmed Plan Of Treatment Future Test Test Name Order Date UPPER GI ENDOSCOPY 11/30/2015 COLONOSCOPY 11/30/2015 Insurance Providers Payer Name Payer Address Payer Phone Subscriber Number Group Number Insured Name Patient Relationship to Insured Coverage Start Date Coverage End Date [facility] [address] [place] [address] [id number] NOE SALDIVAR Self - patient is the insured Medical (General) History Medical History History ICD Code Hypertension Kidney disease--mild renal insuffciency- -GFR of 40--Dr. Meza Denies TX,DM,CVA,Lung disease Neg. colonoscopy in 2004 exc ept for diverticulosis and internal hemorrhoids-- Neg. EGD in 2004--Dr. Bear Breast cancer on the left in 2013--lumpe ctomy and XRT Hypothyroidism GERD Surgical History Surgery Date(Month/Year) Cholecystectomy--Dr. Banks 2014 Bladder suspension Left lumpectomy for breast cancer in 4
--- OUTSIDE RECORDS SUMMARY | 2024-11-21 16:30 | XMS_ITS | Clinical Summary ---
Author Organization [facility] Address [address] [place] [address] Phone Care Team Providers Care E Learning Manager Name Role Phone Truong Colon MD Primary Care Provider [phone] Allergies Active Allergy Reactions Criticality Noted Date [...] left breast in female, estrogen receptor positive ([facility] V24, [facility] V28) 07/03/2023 Iron deficiency anemia 05/18/2022 Acquired hypothyroidism 03/28/2017 Gastroesophageal reflux disease without esophagi tis 03/28/2017 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 Encounters Date Type Department Care Team Description 11/06/2024 Lab Requisition [facility] [address] [place] [phone] Ally Castañeda MD Spinal stenosis, site unspecified; Chronic kidney disease, unspecified 11/04/2024 10:45 AM EDT Office Visit [facility] Hematology Oncology [address] [place] [phone] Jillian-Jennifer Gonzalez MD Malignant neoplasm of upper-outer quadrant of left breast in female, estrogen receptor positive ([facility] V24, [facility] V28) (Primary Dx) 10/30/2024 Lab Requisition [facility] [address] [place] [phone] Ally Castañeda MD Spinal stenosis, site unspecified; Chronic kidney disease, unspecified 10/22/2024 Lab Requisition [facility] [address] [place] [phone] Ally Castañeda MD Spinal stenosis, site unspecified; Chronic kidney disease, unspecified 10/22/2024 Lab Requisition [facility] [address] [place] [phone] Ally Castañeda MD Essential (primary) hypertension; Anemia, unspecified 10/16/2024 Lab Requisition [facility] [address] [place] [address] Ally Castañeda MD Spinal stenosis, site unspecified; Chronic kidney disease, unspecified 10/10/2024 Lab Requisition [facility] [address] [place] [phone] Ally Castañeda MD Malignant neoplasm of unspecified site of unspecified female breast ([facility] V24, [facility] V28); Hypothyroidism, unspecified; Vitamin D deficiency, unspecified; Vitamin B12 deficiency anemia, unspecified; Spinal stenosis, site unspecified; Chronic kidney disease, stage 3 unspecified ([facility], [facility] V28) from Last 3 Months Surgical History Surgery Date Site/Laterality Comments LUMBAR DISC SURGERY PROCEDURE:LUMBAR DISC SURGERY Medical History Medical History Date Comments Malignant neoplasm of upper- outer quadrant of left female breast ([facility] V24, [facility] V28) DX:Malignant neoplasm of upp [...] Description 11/04/2025 10:30 AM EDT Office Visit [facility] Hematology Oncology [address] [place] [address] Jennifer Ca MD [address] [place] [address] Health Maintenance Due Date Last [...] unspecified Chronic kidney disease, stage 3 unspecified ([facility] V24, [facility] V28) DXA BONE DENSITY STUDY [...] LAB HEMETOLOGY METHOD 10/31/2024 10:38 AM EDT [facility] Platelets 239 130 - 400 K/mcL LAB HEMETOLOGY METHOD 10/31/2024 10:38 AM EDT [facility] MPV 10.6 7.0 - 11.0 FL LAB HEMETOLOGY METHOD 10/31/2024 10:38 AM EDT [facility] NRBC 0.0 <1.0 % LAB HEMETOLOGY METHOD 10/31/2024 10:38 AM EDT [facility] NRBC Absolute 0.00 <0.10 K/mcL [facility] 10/31/2024 10:38 AM EDT [facility] Blood Venous blood specimen / Unknown Venipuncture / Unknown 10/31/2024 7:20 AM EDT 10/31/2024 10:27 AM EDT Ally Castañeda MD LAB BLOOD ORDERABLES Final Resul t [facility] [address] [place] [address], * Basic metabolic panel (10/31/2024 7:20 AM [...] LAB CHEMISTRY METHOD 10/31/2024 11:08 AM EDT [facility] Anion Gap 3 3 - 11 [...] MD LAB BLOOD ORDERABLES Final Resul t [facility] [address] [place] [address], * (ABNORMAL) Ferritin (10/22/2024 5:26 AM EDT) Ferritin 283(H) 8 - 252 ng/mL LAB CHEMISTRY METHOD 10/22/2024 9:41 AM T [facility] Blood Venous blood specimen / Unknown Venipuncture / Unknown 10/22/2024 5:26 AM EDT 10/22/2024 8:36 AM EDT us Ally Castañeda MD LAB BLOOD ORDERABLES Final Resul t Performing Organization Address City/[facility]/ZIP Co de Phone Number [facility] [address] [place] [address], [place] [phone] * Thyroid stimulating hormone with reflex to free t4 and free t3 (10/10/2024 5:37 AM EDT) Pathologist [facility] TSH 2.96 0.40 - 4.00 mcIU/mL LAB CHEMISTRY METHOD 10/10/2024 1:01 PM EDT [facility] Blood Venous blood specimen / Unknown Venipuncture / Unknown 10/10/2024 5:37 AM EDT 10/10/2024 9:30 AM EDT us Ally Castañeda MD LAB BLOOD ORDERABLES Final Resul t Performing Organization Address [facility] de Phone Number [facility] [address] [place] [address], [place] [phone] * Vitamin D 25 hydroxy (10/10/2024 5:37 AM EDT) [facility] Vit D, 25-Hydroxy 52.0 30.0 - 80.0 ng/mL LAB CHEMISTRY METHOD 10/10/2024 1:00 PM EDT [facility] Blood Venous blood specimen / Unknown Venipuncture / Unknown 10/10/2024 5:37 AM EDT 10/10/2024 9:30 AM EDT us Ally Castañeda MD LAB BLOOD ORDERABLES Final Resul t Performing Organization Address [facility] Co de Phone Number [facility] [address] [place] [address], [place] [phone] * Folate (10/10/2024 5:37 AM EDT) [facility] Folate 12.9 2.8 - 17.0 ng/ml LAB CHEMISTRY METHOD 10/10/2024 11:35 AM EDT [facility] Blood Venous blood specimen / Unknown Venipuncture / Unknown 10/10/2024 5:37 AM EDT 10/10/2024 9:30 AM EDT us Ally Castañeda MD LAB BLOOD ORDERABLES Final Resul t [facility] [address] [place] [address], [place] [phone] * Vitamin B12 (10/10/2024 5:37 AM EDT) [facility] Vitamin B-12 371 250 - 900 pcg/mL LAB CHEMISTRY METHOD 10/10/2024 11:35 AM EDT [facility] Blood Venous blood specimen / Unknown Venipuncture / Unknown 10/10/2024 5:37 AM EDT 10/10/2024 9:30 AM EDT us Ally Castañeda MD LAB BLOOD ORDERABLES Final Resul t Performing Organization Address City/[facility]/ZIP Co de Phone Number [facility] [address] [place] [address], [place] [phone] * (ABNORMAL) Comprehensive metabolic panel (10/10/2024 5:37 AM EDT) [facility] Sodium 130(L) 133 - 145 mmol/L LAB CHEMISTRY METHOD 10/10/2024 11:35 AM EDT [facility] Potassium 4.9 3.5 - 5.5 mmol/L LAB CHEMISTRY METHOD 10/10/2024 11:35 AM EDT [facility] Chloride 97 96 - 110 mmol/L LAB CHEMISTRY METHOD 10/10/2024 11:35 AM EDT [facility] CO2 28 21 - 32 mmol/L LAB CHEMISTRY METHOD 10/10/2024 11:35 AM EDT [facility] Anion Gap 5 3 - 11 [...] LAB CHEMISTRY METHOD 10/10/2024 11:35 AM EDT [facility] Blood Venous blood specimen / Unknown Venipuncture / Unknown 10/10/2024 5:37 AM EDT 10/10/2024 9:30 AM EDT Ally Castañeda MD LAB BLOOD ORDERABLES Final Resul t [facility] [address] [place] [address], * DXA BONE DENSITY STUDY 1+ SITS AXIAL SKEL (10/07/2021 10:23 AM EDT) Anatomical Region Laterality Modality Bone Densitometr y 05/10/2021 11:5 1 AM EST Narrative 10/07/2021 4:32 PM EDT Clinical history: other osteoporosis Scans of the lumbar spine and hips were performed on a [employer] fan beam bone densitometer. Bone mineral density [...] spine and hips were performed on a [employer] beam bone densitometer. Bone mineral density measurements [...] Group ID:[id number] Type:Not on file Address: [address] [place] [address] Care Teams E Learning Manager Relationship Specialty Start Date End Date Truong Colon MD [address] [place] [address] Dr [address] [place] PCP - General 05/19/22
--- OUTSIDE RECORDS SUMMARY | 2024-11-21 16:31 | XMS_ITS | Clinical Summary ---
Author Organization [facility] Address [address] [place] [address] [address] [place] [address] Phone Care Team Providers Care Simplex Operator Name Role Phone Dimple Vergara MD Primary [...] file Medical Devices Not on file Insurance [facility] [employer] [employer] [employer] [facility] [employer] [employer] [employer] [employer] [facility] [employer] [facility] Care Teams Simplex Operator Relationship Specialty Start Date End Date Dimple Vergara MD [address] [place] [address] PCP - General 11/13/13 Additional Source Comments The information contained in this document represents components of the legal health record. It is not the complete legal health record.[facility]
--- OUTSIDE RECORDS SUMMARY | 2024-11-21 16:31 | XMS_ITS | Clinical Summary ---
Author Organization [facility] Address [address] [place] [address] Care Team Providers Care System Technologist Name Role Phone Truong Colon MD Primary Care Provider [phone] Allergies Active Allergy Reactions Criticality Noted Date [...] age to complete this topic Care Teams System Technologist Relationship Specialty Start Date End Date Truong Colon MD [address] [place] [address] PCP - General Internal Medicine 05/19/22
== END 2024-11-21 17:14 | disposition home or self-care (01) ==
LOC: HO.HMCH 16:27
PROVIDERS: PCP Internal Medicine
DX: A46 Erysipelas (principal)

== ENCOUNTER → 2024-11-21 16:27 | Outpatient (BNVA) | payer OTHER, SELFPAY | PROVIDERS: PCP Internal Medicine | DX: A46 Erysipelas (principal); Z13.31 Encounter for screening for depression | CPT/HCPCS: 96127; 99212 ==

== ENCOUNTER 2024-12-05 13:15 | Outpatient (AMB) | payer OTHER, SELFPAY ==
--- OUTSIDE RECORDS SUMMARY | 2024-10-30 10:45 | XMS_ITS ---
Author Organization [facility] Address [address] [place] [address] Care Team Providers Care Dental Mechanic Name Role Phone Isaiah DURAN, Truong Primary Care Provider UnaBoby Bermudez Unavailable [phone] Encounters Encounter Location Date Provider Diagnosis [facility] [address] [address] 10/30/2024 Boby Chapman Plan Of Treatment Next Appt Details Provider Name:Boby Chapman , 12/15/2024 01:45:00 PM, [address] [facility], [place] [address], [place], [address], Progress Notes * Tommie BLANCASOB:[birth year] (79 yo F)Acc No.[id number]:10/30/2024 Progress Note Patient: Jacinda NUNEZ Provider: Alex Chapman DPM :1945 A ge:79 Y S ex:Female Date:10/30/2024 Address:[address] [place] [address], [place], [phone] Pcp:Truong Colon MD Subjective: * Chief Complaints: [...] 10/30/2024 Generated for Yovanny toussaint/Daniel on: 0 12/05/2024 01:17 PM EDT
--- OUTSIDE RECORDS SUMMARY | 2024-12-05 13:18 | XMS_ITS | Encounter Summary ---
Author Organization [facility] Address [address] [place] [address] Phone Care Team Providers Care Glass Production Machine Operator Name Role Phone Truong Colon MD Primary Care Provider +1- [phone] Encounter Details Date Type Department Care Team (Late Contact Info) Description 08/12/2024 Documentation Only [facility] [address] [place] [address] [place] [address] [place] [id number] Social History Tobacco Use Types Packs/Day [...] Department Care Team (Late Contact Info) Description 01/15/2025 11:50 AM EDT Office Visit [facility] [address] [place] [address] Romero Jimenez MD [address] [place] [address] [place] [address] documented as of this encounter Visit Diagnoses Not on filedocumented in this encounter Care Teams Glass Production Machine Operator Relationship Specialty Start Date End Date Truong Colon MD [address] [place] [address] PCP - General Internal Medicine 03/06/23 documented as of this encounter
--- OUTSIDE RECORDS SUMMARY | 2024-12-05 13:18 | XMS_ITS | Clinical Summary ---
Author Organization [facility] Address [address] [place] [address] Care Team Providers Care Spray Cementer Name Role Phone Truong Colon MD Primary Care Provider +1- [phone] Allergies Active Allergy Reactions Criticality Noted Date [...] age to complete this topic Care Teams Spray Cementer Relationship Specialty Start Date End Date Truong Colon MD [address] [place] [address] PCP - General Internal Medicine 05/19/22
--- OUTSIDE RECORDS SUMMARY | 2024-12-05 13:18 | XMS_ITS | Patient Health Record ---
Author Organization [facility] Address [address] [place] [address] Care Team Providers Care Hand Stemmer Name Role Phone Radha Pena Primary Care Provider Timoteo Schneider Unavailable [phone] Allergies Allergen (clinical drug ingredient) Drug/Non Drug [...] Problem Status W/U Status Risk Notes Problem [id number] Encounter for screening for malignant neoplasm of colon (Z12.11) Active confirmed Problem Screening for malignant neoplasm of rectum (428871328) Encounter for screening for malignant neoplasm of rectum (Z12.12) Active confirmed Problem [id number] Gastroesophageal reflux disease, esophagitis presence not specified (K21.9) Active confirmed Problem [id number] Constipation, unspecified constipation type (K59.00) Active confirmed Plan Of Treatment Future Test Test Name Order Date UPPER GI ENDOSCOPY 11/30/2015 COLONOSCOPY 11/30/2015 Insurance Providers Payer Name Payer Address Payer Phone Subscriber Number Group Number Insured Name Patient Relationship to Insured Coverage Start Date Coverage End Date [facility] [address] [place] [address] [id number] NOE SALDIVAR Self - patient is the insured Medical (General) History Medical History History ICD Code Hypertension Kidney disease--mild renal insuffciency- -GFR of 40--Dr. Meza Denies [place],DM,CVA,Lung disease Neg. colonoscopy in 2004 exc ept for diverticulosis and internal hemorrhoids-- Neg. EGD in 2004--Dr. Bear Breast cancer on the left in 2013--lumpe ctomy and XRT Hypothyroidism GERD Surgical History Surgery Date(Month/Year) Cholecystectomy--Dr. Banks 2014 Bladder suspension Left lumpectomy for breast cancer in 4
--- OUTSIDE RECORDS SUMMARY | 2024-12-05 13:18 | XMS_ITS | Clinical Summary ---
Author Organization [facility] Address [address] [place] [address] [address] [place] [address] Phone Care Team Providers Care Turntable Man Name Role Phone Dimple Vergara MD Primary [...] file Medical Devices Not on file Insurance [facility] MEDICARE REPLACEMENT [facility] MEDICARE REPLACEMENT [facility] MEDICARE [facility]PLACEMENT [facility] MEDICARE REPLACEMENT [facility] MEDICARE [facility]PLACEMENT [facility] MEDICARE [facility]PLACEMENT [facility] MEDICARE REPLACEMENT [facility] MEDICARE [facility]PLACEMENT [facility] MEDICARE REPLACEMENT Care Teams Turntable Man Relationship Specialty Start Date End Date Dimple Vergara MD [address] [place] [address] PCP - General 11/13/13 Additional Source Comments The information contained in this document represents components of the legal health record. It is not the complete legal health record.[facility]
[2024-12-05 13:20] VITALS: BP 120/62; PULSE 81; RESP 18; TEMP 36.2; O2SAT 95; BMI 32.0
--- NOTE | 2024-12-05 13:20 | MHC.PC.OV ---
Vital Signs 12/05/24 13:20 Height 5 ft 11 in Weight 229 lb 4.492 oz BMI 32.0 BP 120/62 Blood Pressure Location Lt brachial Position Sitting Respiration 18 Pulse 81 Pulse Source Pulse Oximeter Temp 97.1 F Temp Source Temporal Artery Scan Pulse Oximetry (%) 95 Oxygen Delivery Method Room Air Intake Visit Reasons: follow up on right leg Forging Dies Final Finisher Required: Yes Forging Dies Final Finisher Language: Health Information Technologist Name: [id number]/truman Accompanied by: Self / Same As Patient Allergies Penicillins (PENICILLINS) Allergy (Intermediate, Verified 12/05/24 13:32) rash senna Allergy (Intermediate, Verified 12/05/24 13:32) rash Medication List - Last Reconciled 12/05/24 by GLORIA Mcdermott amlodipine 10 mg PO DAILY 90 days bisacodyl 5 mg PO BEDTIME 90 days calcitriol 1 mcg PO WE@1645 cane As directed - use when walking carvedilol 12.5 mg PO BID clindamycin HCl (Cleocin HCl) 300 mg PO Q8H 7 days [Commode As directed] [DISPOSABLE BED PADS Use as directed ONCE A DAY] [DISPOSABLE GLOVES - LARGE (1 box/month) Use as directed] docusate sodium (Colace) 100 mg PO BID [FEMININE PADS As directed] gabapentin 300 mg PO BID 30 days levothyroxine 125 mcg PO DAILY@0600 [MEDICATED INCONTINENCE WIPES As directed] multivitamin 1 tab PO DAILY omeprazole 40 mg PO DAILY@0630 oxycodone 5 mg PO Q6H PRN prednisone 20 mg PO DAILY [ROLLATOR As directed] [ROLLATOR As directed] tizanidine 2 mg PO TID PRN Tobacco use date assessed: 12/05/24 Fall risk assessment: No Falls in past year Last assessed Fall Risk: 12/05/24 Dental Screening Dental Screen Date: 12/05/24 Did you have a dental visit in the last 12 months?: Yes Did you have a dental problem in the last 6 months where you did not have access to dental care?: No Was dental information given to patient?: Patient has dentist HPI follow up on right leg HPI Details The patient is a 79-year-old female with past medical history of benign essential hypertension, osteopenia, primary osteoarthritis of the right knee, Raynaud's disease, chronic kidney disease, acquired hypothyroidism and post laminectomy syndrome. The patient came in with concerns of right leg pain. She recently had a right L2-L3 decompression surgery with Dr. Merino. The patient was sent by his office to be evaluated for right leg with concerns of erysipelas infection. Patient right leg was swollen and warm to touch redness in the lower portion of the leg demarcated. Patient complained of pain in the leg and would like to get medication to help her with the swelling in her legs. She was already ruled out for DVT. Initially, ordered naproxen 500 mg b.i.d. p.r.n. for 14 days but after further review of the patient's chart the medication was discontinued and the patient was placed prednisone 20 mg x7 days instead to help with the inflammation. The patient is allergic to penicillin; clindamycin 300 mg q8H x 7 days was ordered, with plans for the patient to return in 2 weeks for evaluation. Patient is presenting today with noted improvement in leg. However, there is some continuation of redness and tenderness to palpation to the right lower extremity. The demarcation of the redness resolved, and the redness has faded some. The leg continue to be warm to touch. Positive pedal pulse remains. Patient is ambulating with walker as usual. We will order doxycycline 100 mg b.i.d. times 10 days to rule out any atypical bacterial causes, plus prednisone 20 mg x 3 days. We will have the patient return in 2 weeks for re-evaluation. ON LICENSE OF [facility] Medical History Ambulates with cane Difficulty swallowing Osteoarthritis of right knee BPV (benign positional vertigo) Gait instability Cervicogenic headache Cervicalgia Vertigo Chronic kidney disease, stage III (moderate) Obesity (BMI 30-39.9) Gastritis Benign essential hypertension GERD without esophagitis Acquired hypothyroidism Constipation Lumbar spondylosis Post laminectomy syndrome Connective tissue disease Interstitial lung disease Osteopenia PAC (premature atrial contraction) Sjogrens syndrome Hypothyroid Breast cancer Raynauds disease SAMARA positive Surgical History Status post lumbar spine surgery for decompression of spinal cord History of video-assisted thoracoscopic surgery (VATS) (03/13/24) 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) Hx of colonoscopy Hx of tubal ligation H/O varicose vein stripping History of cataract surgery H/O lumpectomy Hx of cholecystectomy History of back surgery Family History Father Emphysema of lung Cancer Brother Emphysema of lung Mother Bone cancer Son PONV (postoperative nausea and vomiting) Other Arthritis Social History Household Members: Significant Other and Children Housing: Apartment Are you a primary health care liaison to a significant other at home: No Do you presently have visiting nurse or other home services: Yes ([employer] 4 days a week, 2.5 hours) Alcohol intake: never Comment: pt reports this is her baseline pain Patient Tobacco Use Status: Never used Tobacco e-Cigarette/Vaping Use: Never Used Second Hand Smoke Exposure: No service: No Current occupational status: retired Cognitive needs: No Hearing needs: No Vision needs: Yes (Glasses) Questionnaire PHQ-9 Over the last 2 weeks, how often have you been bothered by any of the following problems? 1. Little interest or pleasure in doing things: not at all 2. Feeling down, depressed, or hopeless: not at all 3. Trouble falling or staying asleep, or sleeping too much: not at all 4. Feeling tired or having little energy: not at all 5. Poor appetite or overeating: not at all 6. Feeling bad about yourself - or that you are a failure or have let yourself or your family down: not at all 7. Trouble concentrating on things, such as reading the newspaper or watching television: not at all 8. Moving or speaking so slowly that other people could have noticed. Or the opposite - being so fidgety or restless that you have been moving around a lot more than usual: not at all 9. Thoughts that you would be better off or of hurting yourself in some way: not at all Total score: 0 Depression Screening Interpretation: Negative Depression Screening Done: Yes Source: Developed by Drs. Timoteo Covington, Lucy Arndt, Guevara Jewell and colleagues, with an educational tere from [employer] ([place]). Thrive Questionnaire Date Thrive assessed: 12/05/24 I am a: Patient What is your living situation today?: I have a place to live, but I am worried about losing it in the future Within the past 12 months, did the food you bought not last and you didn't have the money to get more?: I choose not to answer this question Within the past 12 months, did you worry whether your food would run out before you got money to buy more?: I choose not to answer this question Do you have trouble paying for medicines?: I choose not to answer this question Do you have trouble getting transportation to medical appointments?: I choose not to answer this question Do you have trouble paying your heating and electricity bill?: I choose not to answer this question Do you have trouble taking care of your child, family member or friend?: I choose not to answer this question Do you have trouble with day-to-day activities such as bathing, preparing meals, shopping, managing finances, etc.?: I choose not to answer this question Are you currently unemployed and looking for a job?: I choose not to answer this question Are you interested in more education?: I choose not to answer this question Please select the resources that you would like help with: None Currently or been in a relationship where the following occur: I choose not to answer THRIVE Score: 1 AUDIT C Alcohol Use Questionnaire (AUDIT-C) 1. How often do you have a drink containing alcohol?: Never 3. How often do you have six or more drinks on one occasion?: Never Total Score: 0 Score Reviewed/Action Taken: Yes MO-7 AMB Questionnaire MO-7 Date MO - 7 assessed: 12/05/24 Worrying too much about different things: 1 = Several days Trouble relaxin = Several days Being so restless that it is hard to sit still: 1 = Several days Becoming easily annoyed or irritable: 0 = Not at all Feeling afraid as if something awful might happen: 0 = Not at all Source: Developed by Drs. Timoteo Covington, Lucy Arndt, Guevara Jewell and colleagues, with an educational tere from [employer] ([place]). Review of Systems Const Denies body aches, Denies chills, Denies fever(s), Denies headache(s) and Denies poor appetite Eyes Reports no additional complaints ENT Denies dysphagia, Denies dizziness, Denies headache(s) and Denies odynophagia Card Denies chest pain, Denies syncope, Denies edema, Denies irregular heart rhythm, Denies lightheadedness and Denies dyspnea Resp Denies cough and Denies dyspnea GI Denies abdominal pain, Denies constipation, Denies dysphagia, Denies diarrhea, Denies nausea, Denies odynophagia and Denies vomiting Reports no additional complaints Skin/Breast Reports other (Lower Right leg red, swollen, and painful) Neuro Denies dizziness, Denies syncope and Denies headache(s) Psych Reports no additional complaints Physical exam (Primary Care) Vital Signs: Last Vital Signs Temp 97.1 F 12/05/24 13:20 Pulse 81 12/05/24 13:20 Resp 18 12/05/24 13:20 BP 120/62 12/05/24 13:20 Pulse Ox 95 12/05/24 13:20 Oxygen Delivery Method Room Air 12/05/24 13:20 BMI result Body Mass Index 32.0 Tobacco/Smoking Status: Tobacco use Status Tobacco use date assessed 12/05/24 12/05/24 13:30 Patient Tobacco Use Status Never used Tobacco 12/05/24 13:30 e-Cigarette/Vaping Use Never Used 12/05/24 13:30 PHQ-9: PHQ-9 Score PHQ-9: Total score 0 12/05/24 13:41 Depression Screening Interpretation: Negative Thrive Assessment: Date of Thrive Assessment Date Thrive assessed 12/05/24 12/05/24 13:30 Currently or been in a relationship where the following occur: I choose not to answer Const General: cooperative, healthy appearing, comfortable and no acute distress Orientation/consciousness: patient oriented x3 HENNE Head: Yes normocephalic Ears: hearing grossly normal bilaterally General nose exam: Normal external nose present Eyes General: appearance normal, both eyes and all related structures Conjunctivae: conjunctivae normal Neck Neck: Yes full ROM and Yes no lymphadenopathy Resp Effort & Inspection: normal respiratory effort Auscultation: clear to auscultation bilaterally, no crackles, no rales, no rhonchi and no wheezes Cardio Rate: regular rate Rhythm: regular rhythm Skin General skin exam: no rashes or lesions noted Full body images:  1. Erythema, warmth, mild swelling, tender to palpation area Neuro General: patient oriented x3 Gait exam (Neuro): Normal gait present Extrem General: Yes normal to inspection, Yes full ROM and No edema Psych Affect: normal affect Attitude: cooperative Insight: Good insight present (Psych) Judgement: Good judgement present (Psych) Coding Level of Care Code Est Pt Level 3 (83005) Diagnoses Erysipelas of right lower extremity A46 Time Spent (min) 29 Assessment & Plan Assessment & Plan (1) Erysipelas of right lower extremity: Code(s): A46 - Erysipelas Category: Medical Plan: Suspicion due to demarcated redness warmth, pain and swelling in the lower leg. The patient is allergic to penicillin, so clindamycin 300 mg Q 8 hours x7 days ordered. Prednisone 20 mg x 7 days ordered. The patient was encouraged to increase her fluids hydration. Patient to return in 2 weeks for re-evaluation of right lower leg. Patient follow up today with noted improvement in redness and swelling. There is an absence of demarcation in her right lower leg at this time. The redness has faded and appears more pink than red. Mild edema, warmth, tender to touch. Patient is ambulating with a walker without issues. She verbalized improvement in discomfort in the leg. As the leg has not been fully resolved. We will start the patient on doxycycline to rule out any atypical infection to her leg. We will also add prednisone 20 mg x 3 days. The patient to follow up in 2 weeks for re-evaluation. Medications: New doxycycline monohydrate 100 mg PO BID 20 tabs 0RF 10 days prednisone 20 mg PO DAILY 3 tabs 0RF 3 days
== END 2024-12-05 14:01 | disposition home or self-care (01) ==
LOC: HO.HMCH 13:15
PROVIDERS: PCP Internal Medicine
DX: A46 Erysipelas (principal)

== ENCOUNTER → 2024-12-05 13:15 | Outpatient (BNVA) | payer OTHER, SELFPAY | PROVIDERS: PCP Internal Medicine | DX: A46 Erysipelas (principal); I10 Essential (primary) hypertension; M17.11 Unilateral primary osteoarthritis, right knee; I73.00 Raynaud's syndrome without gangrene; N18.9 Chronic kidney disease, unspecified; E89.0 Postprocedural hypothyroidism | CPT/HCPCS: 96127; 99212 ==

== ENCOUNTER 2024-12-19 13:02 | Outpatient (AMB) | payer OTHER, SELFPAY ==
--- OUTSIDE RECORDS SUMMARY | 2023-03-07 08:36 | XMS_ITS | Continuity of Care Document ---
Author Organization [facility] Address [address] [place] [address] Phone Care Team Providers Care Puller Machine Name Role Phone Amanuel DURAN FACS RVT [...] Providers Copied on Encounter [facility], [address]Jose [place], [id number], [place] tel:[phone] [place] No Information 3 Amanuel DURAN FACS T SIMÓN Pinto. [address] [facility], [address], [place], [address], [place]. [phone] Referring Provider: Truong Colon MD, [address], [place], [address]. tel:[phone] Office/Outpt E&M Established 25 Mins [facility], [address] [place] [address] Dr [address] [place], [id number], [place] tel:[phone] [place] Body mass index (BMI) 34.0-34.9, adultVenous insufficiency (chronic) (peripheral) 3 Amanuel DURAN FACS Yoni Pinto. [address] [place] [address], [place] [address], [place], [address], [place]. [phone] Referring Provider: Truong Colon MD, [address], [place], [address]. 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 [address] [place] [address], [address], [place], [address], [place]. [phone] Referring Provider: Truong Colon MD, [address], [place], [address]. 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 [facility] [facility], [address], [place], [address], [place]. tel:[phone] Referring Provider: Truong Colon MD, [address], [place], [address]. tel:[phone] [facility], [address] [place] [address] [address]Jose [place], [id number], [place] tel:[phone] [place] Encntr for f/u exam aft trtmt for cond oth than malig neoplmVenous insufficiency (chronic) (peripheral) 3 Amanuel DURAN FACS RVT SIMÓN Pinto. [address] [facility] [address] [facility], [facility] [address], [place], [address], [place]. [phone] Referring Provider: Truong Colon MD, [address] [place] [address] Dr [address], [place], [address]. 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 [address] [facility] [address] [facility], [facility] [address], [place], [address], [place]. [phone] Referring Provider: Truong Colon MD, [address] [place] [address] Dr [address], [place], [address]. 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 [address] [facility] [address], [facility] [address], [place], [address], [place]. tel:[phone] Referring Provider: Truong Colon MD, [address], [place], [address]. tel:[phone] Family History Family Member Type Diagnosis Age At Onset No Information Payers Payer name Insurance type Covered democrat ID Josefina haynes(s) [facility] [id number] Social History Type Description Quantity Date Captured [...]
[2024-12-19 13:06] VITALS: BP 150/58; PULSE 55; RESP 18; TEMP 36.2; O2SAT 95; BMI 31.3
--- NOTE | 2024-12-19 13:06 | MHC.PC.OV ---
Vital Signs 12/19/24 13:06 Height 5 ft 11 in Weight 224 lb 6 oz BMI 31.3 BP 150/58 H Blood Pressure Location Lt brachial Position Sitting Respiration 18 Pulse 55 Pulse Source Pulse Oximeter Temp 97.1 F Temp Source Temporal Artery Scan Pulse Oximetry (%) 95 Oxygen Delivery Method Room Air Intake Visit Reasons: right leg infection Virtual Reality Specialist Required: Yes Virtual Reality Specialist Language: Senior Quality Assurance Analyst Name: [id number] Accompanied by: Self / Same As Patient Allergies Penicillins (PENICILLINS) Allergy (Intermediate, Verified 12/19/24 13:18) rash senna Allergy (Intermediate, Verified 12/19/24 13:18) rash Medication List - Last Reconciled 12/19/24 by GLORIA Mcdermott amlodipine 10 mg PO DAILY 90 days bisacodyl 5 mg PO BEDTIME 90 days calcitriol 1 mcg PO WE@1645 cane As directed - use when walking carvedilol 12.5 mg PO BID clindamycin HCl (Cleocin HCl) 300 mg PO Q8H 7 days [Commode As directed] [DISPOSABLE BED PADS Use as directed ONCE A DAY] [DISPOSABLE GLOVES - LARGE (1 box/month) Use as directed] docusate sodium (Colace) 100 mg PO BID doxycycline monohydrate 100 mg PO BID 10 days [FEMININE PADS As directed] gabapentin 300 mg PO BID 30 days levothyroxine 125 mcg PO DAILY@0600 [MEDICATED INCONTINENCE WIPES As directed] multivitamin 1 tab PO DAILY omeprazole 40 mg PO DAILY@0630 oxycodone 5 mg PO Q6H PRN prednisone 20 mg PO DAILY prednisone 20 mg PO DAILY 3 days [ROLLATOR As directed] [ROLLATOR As directed] tizanidine 2 mg PO TID PRN Tobacco use date assessed: 12/19/24 Fall risk assessment: No Falls in past year Last assessed Fall Risk: 12/19/24 Dental Screening Dental Screen Date: 12/19/24 Did you have a dental visit in the last 12 months?: Yes Did you have a dental problem in the last 6 months where you did not have access to dental care?: No Was dental information given to patient?: Patient has dentist HPI right leg infection HPI Details The patient is an 79-year-old female presenting for follow up appointment for right leg swelling and pain She reports improvement in her symptoms compared to previous conditions, but still experiences discomfort and warmth in the affected area. The swelling/pain is noted at the anterior aspect of right ankle, causing significant discomfort that she describes radiating up her andrews. The patient completed 2 courses of antibiotics previously prescribed, but the symptoms persist, indicating a need for further intervention. She was previously prescribed clindamycin first then followed by doxycycline. She was also given prednisone to help wiwht the inflammational process due to her risk of taking NSAIDs. Patient reports that the swollen improves slightly with compression stockings and elevation, but the pain remains. small amount of pinkness, tender to touch will do xray and refer to vascular [facility] Medical History Ambulates with cane Difficulty swallowing Osteoarthritis of right knee BPV (benign positional vertigo) Gait instability Cervicogenic headache Cervicalgia Vertigo Chronic kidney disease, stage III (moderate) Obesity (BMI 30-39.9) Gastritis Benign essential hypertension GERD without esophagitis Acquired hypothyroidism Constipation Lumbar spondylosis Post laminectomy syndrome Connective tissue disease Interstitial lung disease Osteopenia PAC (premature atrial contraction) Sjogrens syndrome Hypothyroid Breast cancer Raynauds disease SAMARA positive Surgical History Status post lumbar spine surgery for decompression of spinal cord History of video-assisted thoracoscopic surgery (VATS) (03/13/24) 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) Hx of colonoscopy Hx of tubal ligation H/O varicose vein stripping History of cataract surgery H/O lumpectomy Hx of cholecystectomy History of back surgery Family History Father Emphysema of lung Cancer Brother Emphysema of lung Mother Bone cancer Son PONV (postoperative nausea and vomiting) Other Arthritis Social History Household Members: Significant Other and Children Housing: Apartment Are you a primary early breastfeeding care specialist to a significant other at home: No Do you presently have visiting nurse or other home services: Yes ([employer] 4 days a week, 2.5 hours) Alcohol intake: never Comment: pt reports this is her baseline pain Patient Tobacco Use Status: Never used Tobacco e-Cigarette/Vaping Use: Never Used Second Hand Smoke Exposure: No service: No Current occupational status: retired Cognitive needs: No Hearing needs: No Vision needs: Yes (Glasses) Questionnaire PHQ-9 Over the last 2 weeks, how often have you been bothered by any of the following problems? 1. Little interest or pleasure in doing things: not at all 2. Feeling down, depressed, or hopeless: not at all 3. Trouble falling or staying asleep, or sleeping too much: not at all 4. Feeling tired or having little energy: not at all 5. Poor appetite or overeating: not at all 6. Feeling bad about yourself - or that you are a failure or have let yourself or your family down: not at all 7. Trouble concentrating on things, such as reading the newspaper or watching television: not at all 8. Moving or speaking so slowly that other people could have noticed. Or the opposite - being so fidgety or restless that you have been moving around a lot more than usual: not at all 9. Thoughts that you would be better off or of hurting yourself in some way: not at all Total score: 0 Depression Screening Interpretation: Negative Depression Screening Done: Yes Source: Developed by Drs. Timoteo Covington, Lucy Arndt, Guevara Jewell and colleagues, with an educational tere from [email or web address]. Thrive Questionnaire Date Thrive assessed: 12/19/24 I am a: Patient What is your living situation today?: I have a place to live, but I am worried about losing it in the future Within the past 12 months, did the food you bought not last and you didn't have the money to get more?: I choose not to answer this question Within the past 12 months, did you worry whether your food would run out before you got money to buy more?: I choose not to answer this question Do you have trouble paying for medicines?: I choose not to answer this question Do you have trouble getting transportation to medical appointments?: I choose not to answer this question Do you have trouble paying your heating and electricity bill?: I choose not to answer this question Do you have trouble taking care of your child, family member or friend?: I choose not to answer this question Do you have trouble with day-to-day activities such as bathing, preparing meals, shopping, managing finances, etc.?: I choose not to answer this question Are you currently unemployed and looking for a job?: I choose not to answer this question Are you interested in more education?: I choose not to answer this question Please select the resources that you would like help with: None Currently or been in a relationship where the following occur: I choose not to answer THRIVE Score: 1 AUDIT C Alcohol Use Questionnaire (AUDIT-C) 1. How often do you have a drink containing alcohol?: Never 3. How often do you have six or more drinks on one occasion?: Never Total Score: 0 Score Reviewed/Action Taken: Yes MO-7 AMB Questionnaire MO-7 Date MO - 7 assessed: 12/19/24 Worrying too much about different things: 1 = Several days Trouble relaxin = Several days Being so restless that it is hard to sit still: 1 = Several days Becoming easily annoyed or irritable: 0 = Not at all Feeling afraid as if something awful might happen: 0 = Not at all Source: Developed by Drs. Timoteo Covington, Lucy Arndt, Guevara Jewell and colleagues, with an educational tere from [email or web address]. Review of Systems Const Denies body aches, Denies chills, Denies fever(s), Denies headache(s) and Denies poor appetite Eyes Reports no additional complaints ENT Denies dysphagia, Denies dizziness, Denies headache(s) and Denies odynophagia Card Denies chest pain, Denies syncope, Denies edema, Denies irregular heart rhythm, Denies lightheadedness and Denies dyspnea Resp Denies cough and Denies dyspnea GI Denies abdominal pain, Denies constipation, Denies dysphagia, Denies diarrhea, Denies nausea, Denies odynophagia and Denies vomiting Reports no additional complaints Musc Reports arthralgias (Right ankle), Reports joint swelling (Right ankle) and Reports other (Pinkness noted to the right andrews) Skin/Breast Reports system reviewed and no additional complaints, except as documented Neuro Denies dizziness, Denies syncope and Denies headache(s) Psych Reports no additional complaints Physical exam (Primary Care) Vital Signs: Last Vital Signs Temp 97.1 F 12/19/24 13:06 Pulse 55 12/19/24 13:06 Resp 18 12/19/24 13:06 BP 150/58 H 12/19/24 13:06 Pulse Ox 95 12/19/24 13:06 Oxygen Delivery Method Room Air 12/19/24 13:06 BMI result Body Mass Index 31.3 Tobacco/Smoking Status: Tobacco use Status Tobacco use date assessed 12/19/24 12/19/24 13:14 Patient Tobacco Use Status Never used Tobacco 12/19/24 13:14 e-Cigarette/Vaping Use Never Used 12/19/24 13:14 PHQ-9: PHQ-9 Score PHQ-9: Total score 0 12/19/24 13:29 Depression Screening Interpretation: Negative Thrive Assessment: Date of Thrive Assessment Date Thrive assessed 12/19/24 12/19/24 13:14 Currently or been in a relationship where the following occur: I choose not to answer Const General: cooperative, healthy appearing, comfortable and no acute distress Orientation/consciousness: patient oriented x3 HENMT Head: Yes normocephalic Ears: hearing grossly normal bilaterally General nose exam: Normal external nose present Eyes General: appearance normal, both eyes and all related structures Conjunctivae: conjunctivae normal Neck Neck: Yes full ROM and Yes no lymphadenopathy Resp Effort & Inspection: normal respiratory effort Auscultation: clear to auscultation bilaterally, no crackles, no rales, no rhonchi and no wheezes Cardio Rate: regular rate Rhythm: regular rhythm Skin General skin exam: no rashes or lesions noted Neuro General: patient oriented x3 Gait exam (Neuro): Normal gait present Extrem General: Yes normal to inspection, Yes full ROM and No edema Right lower extremity: lower leg Details: tenderness and localized swelling (andrews area) and ankle Details: tenderness and swelling Details: anteriorly Psych Affect: normal affect Attitude: cooperative Insight: Good insight present (Psych) Judgement: Good judgement present (Psych) Coding Level of Care Code Est Pt Level 3 (24513) Diagnoses Right ankle pain, unspecified chronicity M25.571 Chronicity: unspecified Right ankle swelling M25.471 Right leg swelling M79.89 Time Spent (min) 31 Assessment & Plan Assessment & Plan (1) Right ankle pain: Code(s): M25.571 - Pain in right ankle and joints of right foot Category: Medical Qualifiers: Chronicity: unspecified Qualified Code(s): M25.571 - Pain in right ankle and joints of right foot (2) Right ankle swelling: Code(s): M25.471 - Effusion, right ankle Category: Medical (3) Right leg swelling: Code(s): M79.89 - Other specified soft tissue disorders Category: Medical Plan The patient leg does not look infected at this point. She was already treated with clindamycin and followed up with doxycycline. We will have the patient do an ankle x-ray and also have the patient see vascular for possible circulation issue. She reports that her legs get slightly better with the compression stockings and elevation; however, the tenderness remains. Orders: Orders XR ankle RT min 3V Today M25.471 - Effusion, right ankle, M25.571 - Pain in right ankle and joints of right foot Referrals Vascular Surgery Referral M79.604 - Pain in right leg, M79.89 - Other specified soft tissue disorders Patient Instructions: Patient to keep her appointment for February. However, depending on x-ray she might need a closer follow up appointment.
--- OUTSIDE RECORDS SUMMARY | 2024-12-19 13:24 | XMS_ITS | Encounter Summary ---
Author Organization [facility] Address [address] [place] [address] Phone Care Team Providers Care Process Maintenance Technician Name Role Phone Truong Colon MD Primary Care Provider +1- [phone] Encounter Details Date Type Department Care Team (Late Contact Info) Description 10/26/2023 Documentation Only [facility] [address] [place] [address] Kylie Gabriel [address] [place] [address] Social History Tobacco Use Types [...] [facility] [address] [place] [address] Romero Jimenez MD [address] [place] [address] [place] [address] documented as of this encounter Visit Diagnoses Not on filedocumented in this encounter Care Teams Process Maintenance Technician Relationship Specialty Start Date End Date Truong Colon MD [address] [place] [address] PCP - General Internal Medicine 03/06/23 documented as of this encounter
--- OUTSIDE RECORDS SUMMARY | 2024-12-19 13:24 | XMS_ITS | Encounter Summary ---
Author Organization [facility] Address [address] [place] [address] Phone Care Team Providers Care Political Theory Professor Name Role Phone Truong Colon MD Primary Care Provider +1- [phone] Encounter Details Date Type Department Care Team (Late Contact Info) Description 11/09/2021 Documentation Only [facility] [address] [place] [address] Dimitris Suarez PA [address] [place] [address] Social History Tobacco Use Types [...] Visit [facility] [address] [place] [address] Romero Jimenez MD [address] [place] [address] documented as of this encounter Visit Diagnoses Not on filedocumented in this encounter Care Teams Political Theory Professor Relationship Specialty Start Date End Date Truong Colon MD [address] [place] [address] PCP - General Internal Medicine 03/06/23 documented as of this encounter
--- OUTSIDE RECORDS SUMMARY | 2024-12-19 13:24 | XMS_ITS | Encounter Summary ---
Author Organization [facility] Address [address] [place] [address] Phone Care Team Providers Care Last Inserter Name Role Phone Truong Colon MD Primary Care Provider +1- [phone] Encounter Details Date Type Department Care Team (Late Contact Info) Description 04/24/2024 Documentation Only [facility] [address] [place] [address] Kylie Gabriel [address] [place] [address] Social History Tobacco Use Types [...] [facility] [address] [place] [address] Romero Jimenez MD [address] [place] [address] [place] [address] documented as of this encounter Visit Diagnoses Not on filedocumented in this encounter Care Teams Last Inserter Relationship Specialty Start Date End Date Truong Colon MD [address] [place] [address] PCP - General Internal Medicine 03/06/23 documented as of this encounter
--- OUTSIDE RECORDS SUMMARY | 2024-12-19 13:24 | XMS_ITS | Encounter Summary ---
Author Organization [facility] Address [address] [place] [address] Phone Care Team Providers Care Learning Facilitator Name Role Phone Truong Colon MD Primary Care Provider +1- [phone] Encounter Details Date Type Department Care Team (Late Contact Info) Description 05/16/2024 Orders Only [facility] [address] [place] [address] Kylie Gabriel [address] [place] [address] Anemia in chronic kidney disease; [...] Care Team (Late st Contact Info) Description 01/15/2025 11:50 AM EDT Office Visit [facility] [address] [place] [address] Romero Jimenez MD [address] [place] [address] documented as of this encounter Visit Diagnoses Diagnosis Anemia in chronic kidney disease Stage 3b chronic kidney disease (HCC) Iron deficiency anemia, not otherwise specified documented in this encounter Care Teams Learning Facilitator Relationship Specialty Start Date End Date Truong Colon MD [address] [place] [address] PCP - General Internal Medicine 03/06/23 documented as of this encounter
--- OUTSIDE RECORDS SUMMARY | 2024-12-19 13:24 | XMS_ITS | Encounter Summary ---
Author Organization [facility] Address [address] [place] [address] Phone Care Team Providers Care Rotary Dump Operator Name Role Phone Truong Colon MD Primary Care Provider +1- [phone] Encounter Details Date Type Department Care Team (Late Contact Info) Description 04/11/2022 Documentation Only [facility] [address] [place] [address] Kylie Gabriel [address] [place] [address] Social History Tobacco Use Types [...] [facility] [address] [place] [address] Romero Jimenez MD [address] [place] [address] [place] [address] documented as of this encounter Visit Diagnoses Not on filedocumented in this encounter Care Teams Rotary Dump Operator Relationship Specialty Start Date End Date Truong Colon MD [address] [place] [address] PCP - General Internal Medicine 03/06/23 documented as of this encounter
--- OUTSIDE RECORDS SUMMARY | 2024-12-19 13:24 | XMS_ITS | Clinical Summary ---
Author Organization [facility] Address [address] [place] [address] Phone Care Team Providers Care Yield Improvement Engineer Name Role Phone Truong Colon MD Primary Care Provider [phone] [phone] Allergies Active Allergy Reactions Criticality Noted Date [...] total) by mouth daily as needed for constipation . Active calcitrioL (ROCALTROL) 0.5 mcg capsule Take [...] mouth 1 (one) time each day. Active multivit-min/iron /folic acid/K (ADULTS MULTIVITAMIN ORAL) Take by mouth. 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 [address] [place] [phone] Ally Castañeda MD Spinal stenosis, site unspecified; Chronic kidney disease, unspecified 11/04/2024 10:45 AM EDT Office Visit [facility] Hematology Oncology [address] [place] [phone] Jennifer Ca MD Malignant neoplasm of upper-outer quadrant of left breast in female, estrogen receptor positive ([facility] V24, [facility] V28) (Primary Dx) 10/30/[address] [facility] Lab [address] [place] [phone] Ally Castañeda MD Spinal stenosis, site unspecified; Chronic kidney disease, unspecified 10/22/[address] [facility] [address] [place] [phone] Ally Castañeda MD Spinal stenosis, site unspecified; Chronic kidney disease, unspecified 10/22/[address] [facility] [address] [place] [phone] Ally Castañeda MD Essential (primary) hypertension; Anemia, unspecified 10/16/[address] [facility] [address] [place] [address] Ally Castañeda MD Spinal stenosis, site unspecified; Chronic kidney disease, unspecified 10/10/[address] [facility] [address] [facility] [place] [address] Ally Castañeda MD Malignant neoplasm of unspecified site of unspecified female breast ([facility] V24, [facility] V28); Hypothyroidism, unspecified; Vitamin D deficiency, unspecified; Vitamin B12 deficiency anemia, unspecified; Spinal stenosis, site unspecified; Chronic kidney disease, stage 3 unspecified ([facility] V24, [facility] V28) from Last 3 Months Surgical History Surgery Date Site/Laterality Comments LUMBAR DISC SURGERY PROCEDURE:LUMBAR DISC SURGERY Medical History Medical History Date Comments Malignant neoplasm of upper- outer quadrant of left female breast ([facility] V24, [facility] V28) DX:Malignant neoplasm of upp er-outer quadrant [...] Description 11/04/2025 10:30 AM EDT Office Visit [facility] Hematology Oncology [address] [place] [address] Jennifer Ca MD [address] [place] [address] Health Maintenance Due Date Last [...] of unspecified site of unspecified female breast ([facility] V24, [facility] V28) Hypothyroidism, unspecified Vitamin D deficiency, unspecified [...] stage 3 unspecified (CMS/HCC V24, CMS/HCC V28) DXA BONE DENSITY STUDY 1+ SITS [...] K/mcL LAB HEMETOLOGY METHOD 10/31/2024 10:38 AM [facility] RBC 3.60(L) 3.80 - 4.80 M/mcL LAB HEMETOLOGY METHOD 10/31/2024 10:38 AM [facility] Hemoglobin 9.9(L) 11.5 - 16.0 g/dL LAB HEMETOLOGY METHOD 10/31/2024 10:38 AM [facility] Hematocrit 32.8(L) 35.0 - 47.0 % LAB HEMETOLOGY METHOD 10/31/2024 10:38 AM [facility] MCV 90.6 79.0 - 98.0 FL LAB HEMETOLOGY METHOD 10/31/2024 10:38 AM [facility] MCH 27.3 27.0 - 32.0 pcg LAB HEMETOLOGY METHOD 10/31/2024 10:38 AM [facility] MCHC 30.2(L) 32.0 - 37.0 g/dL LAB HEMETOLOGY METHOD 10/31/2024 10:38 AM [facility] RDW 15.1(H) 11.0 - 15.0 % LAB HEMETOLOGY METHOD 10/31/2024 10:38 AM [facility] Platelets 239 130 - 400 K/mcL LAB HEMETOLOGY METHOD 10/31/2024 10:38 AM EDT [facility] MPV 10.6 7.0 - 11.0 FL LAB HEMETOLOGY METHOD 10/31/2024 10:38 AM EDT [facility] NRBC 0.0 <1.0 % LAB HEMETOLOGY METHOD 10/31/2024 10:38 AM EDT [facility] NRBC Absolute 0.00 <0.10 K/mcL LAB HEMETOLOGY METHOD 10/31/2024 10:38 AM EDT [facility] Blood Venous blood specimen / Unknown Venipuncture / Unknown 10/31/2024 7:20 AM EDT 10/31/2024 10:27 AM EDT us Ally Castañeda MD LAB BLOOD ORDERABLES Final Resul t [facility] [address] [place] [address], * Basic metabolic panel (10/31/2024 7:20 AM EDT) Only the most recent of4 resultswithin the time period is included. Sodium 142 133 - 145 mmol/L LAB CHEMISTRY METHOD 10/31/2024 11:08 AM [facility] Potassium 4.7 3.5 - 5.5 mmol/L LAB CHEMISTRY METHOD 10/31/2024 11:08 AM [facility] Chloride 109 96 - 110 mmol/L LAB CHEMISTRY METHOD 10/31/2024 11:08 AM [facility] CO2 30 21 - 32 mmol/L LAB CHEMISTRY METHOD 10/31/2024 11:08 AM [facility] Anion Gap 3 3 - 11 LAB CHEMISTRY METHOD 10/31/2024 11:08 AM [facility] Glucose 78 70 - 100 mg/dL LAB CHEMISTRY METHOD 10/31/2024 11:08 AM EDT [facility] BUN 11 5 - 25 mg/dL LAB CHEMISTRY METHOD 10/31/2024 11:08 AM EDT [facility] Creatinine 0.92 0.50 - 1.10 mg/dL LAB [facility]STR[facility] e[facility] 63 >=60 mL/min/1. 73m2 LAB CHEMISTRY METHOD 10/31/2024 11:08 AM EDT [facility] Comment:Calculation based on the Chronic Kidney Disease Epidemiology Collaboration (CKD-EPI) equation refit without adjustment for race. BUN/Creatinine Ratio 12.0 LAB CHEMISTRY METHOD 10/31/2024 11:08 AM EDT [facility] Calcium 8.9 8.5 - 10.5 mg/dL LAB CHEMISTRY METHOD [facility] Blood Venous blood specimen / Unknown Venipuncture / Unknown 10/31/2024 7:20 AM EDT 10/31/2024 10:27 AM EDT us lAly Castañeda MD LAB BLOOD ORDERABLES Final Resul t Performing Organization Address City/[facility]/ZIP Co de Phone Number [facility] [address] [place] [address], * (ABNORMAL) Ferritin (10/22/2024 5:26 AM EDT) Ferritin 283(H) 8 - 252 ng/mL LAB CHEMISTRY METHOD 10/22/2024 9:41 AM EDT [facility] Blood Venous blood specimen / Unknown Venipuncture / Unknown 10/22/2024 5:26 AM EDT 10/22/2024 8:36 AM EDT us Ally Castañeda MD LAB BLOOD ORDERABLES Final Resul t [facility] [address] [place] [address], [place] [phone] * Thyroid stimulating hormone with reflex to free t4 and free t3 (10/10/2024 5:37 AM EDT) [facility] TSH 2.96 0.40 - 4.00 mcIU/mL LAB CHEMISTRY METHOD 10/10/2024 1:01 PM EDT [facility] Blood Venous blood specimen / Unknown Venipuncture / Unknown 10/10/2024 5:37 AM EDT 10/10/2024 9:30 AM EDT us Ally Castañeda MD LAB BLOOD ORDERABLES Final Resul t Performing Organization Address City/[facility]/ZIP Co de Phone Number [facility] [address] [place] [address], [place] [phone] * Vitamin D 25 hydroxy (10/10/2024 5:37 AM EDT) [facility] Vit D, 25-Hydroxy 52.0 30.0 - 80.0 ng/mL LAB CHEMISTRY METHOD 10/10/2024 1:00 PM EDT [facility] Blood Venous blood specimen / Unknown Venipuncture / Unknown 10/10/2024 5:37 AM EDT 10/10/2024 9:30 AM EDT us Ally Csatañeda MD LAB BLOOD ORDERABLES Final Resul t [facility] [address] [place] [address], [place] [phone] * Folate (10/10/2024 5:37 AM EDT) [facility] Folate 12.9 2.8 - 17.0 ng/ml LAB CHEMISTRY METHOD 10/10/2024 11:35 AM EDT [facility] Blood Venous blood specimen / Unknown Venipuncture / Unknown 10/10/2024 5:37 AM EDT 10/10/2024 9:30 AM EDT us Ally Castañeda MD LAB BLOOD ORDERABLES Final Resul t Performing Organization Address City/[facility]/ZIP Co de Phone Number [facility] [address] [place] [address], [place] [phone] * Vitamin B12 (10/10/2024 5:37 AM EDT) [facility] Vitamin B-12 371 250 - 900 pcg/mL LAB CHEMISTRY METHOD 10/10/2024 11:35 AM EDT [facility] Blood Venous blood specimen / Unknown Venipuncture / Unknown 10/10/2024 5:37 AM EDT 10/10/2024 9:30 AM EDT us Ally Castañeda MD LAB BLOOD ORDERABLES Final Resul t Performing Organization Address City/[facility]/ZIP Co de Phone Number [facility] [address] [place] [address], [place] [phone] * (ABNORMAL) Comprehensive metabolic panel (10/10/2024 5:37 AM EDT) [facility] Sodium 130(L) 133 - 145 mmol/L LAB CHEMISTRY METHOD 10/10/2024 11:35 AM EDT [facility] Potassium 4.9 3.5 - 5.5 mmol/L LAB CHEMISTRY METHOD 10/10/2024 11:35 AM EDT [facility] Chloride 97 96 - 110 mmol/L LAB CHEMISTRY METHOD 10/10/2024 11:35 AM EDT [facility] CO2 28 21 - 32 mmol/L LAB CHEMISTRY METHOD 10/10/2024 11:35 AM EDT [facility] Anion Gap 5 3 - 11 LAB CHEMISTRY METHOD 10/10/2024 11:35 AM EDT [facility] Glucose 82 70 - 100 mg/dL LAB CHEMISTRY METHOD 10/10/2024 11:35 AM [facility] BUN 37(H) 5 - 25 mg/dL LAB CHEMISTRY METHOD 10/10/2024 11:35 AM [facility] Creatinine 1.16(H) 0.50 - 1.10 mg/dL LAB CHEMISTRY METHOD 10/10/2024 11:35 AM [facility] eGFR 47(L) >=60 mL/min/1. 73m2 LAB CHEMISTRY METHOD 10/10/2024 11:35 AM [facility] Comment:Calculation based on the Chronic Kidney Disease Epidemiology Collaboration (CKD-EPI) equation refit without adjustment for race. BUN/Creatinine Ratio 31.9 LAB CHEMISTRY METHOD 10/10/2024 11:35 AM [facility] Calcium 8.9 8.5 - 10.5 mg/dL LAB CHEMISTRY METHOD 10/10/2024 11:35 AM [facility] AST (SGOT) 42 10 - 42 unit/L LAB CHEMISTRY METHOD 10/10/2024 11:35 AM [facility] ALT (SGPT) 48 10 - 60 unit/L LAB CHEMISTRY METHOD 10/10/2024 11:35 AM [facility] Alkaline Phosphatase 98 42 - 121 unit/L LAB CHEMISTRY METHOD 10/10/2024 11:35 AM [facility] Total Protein 6.3 6.0 - 8.0 g/dL LAB CHEMISTRY METHOD 10/10/2024 11:35 AM [facility] Albumin 2.3(L) 3.2 - 5.0 g/dL LAB CHEMISTRY METHOD 10/10/2024 11:35 AM [facility] Total Bilirubin 0.4 0.0 - 1.4 mg/dL LAB CHEMISTRY METHOD 10/10/2024 11:35 AM [facility] Blood Venous blood specimen / Unknown Venipuncture / Unknown 10/10/2024 5:37 AM EDT 10/10/2024 9:30 AM EDT us Ally Castañeda MD LAB BLOOD ORDERABLES Final Resul t [facility] [address] [place] [address], * DXA BONE DENSITY STUDY 1+ SITS AXIAL SKEL (10/07/2021 10:23 AM EDT) Anatomical Region Laterality Modality Bone Densitometr y 05/10/2021 11:5 1 AM EST Narrative 10/07/2021 4:32 PM EDT Clinical history: other osteoporosis Scans of the lumbar spine and hips were performed on a AppEnsure/Integrated biometricsigBioStable fan beam bone densitometer. Bone mineral density [...] spine and hips were performed on a AppEnsure/MiniLuxefan beam bone densitometer. Bone mineral density measurements [...] Group ID:[id number] Type:Not on file Address: [address] [place] [address] Care Teams Yield Improvement Engineer Relationship Specialty Start Date End Date Truong Colon MD [address] [place] [address] Dr [address] [place] PCP - General 05/19/22
--- OUTSIDE RECORDS SUMMARY | 2024-12-19 13:24 | XMS_ITS | Encounter Summary ---
Author Organization [facility] Address [address] [place] [address] Phone Care Team Providers Care Foundry Engineer Name Role Phone Truong Colon MD Primary Care Provider +1- [phone] Encounter Details Date Type Department Care Team (Late Contact Info) Description 04/10/2024 Documentation Only [facility] [address] [place] [address] Kylie Gabriel [address] [place] [address] Social History Tobacco Use Types [...] [facility] [address] [place] [address] Romero Jimenez MD [address] [place] [address] [place] [address] documented as of this encounter Visit Diagnoses Not on filedocumented in this encounter Care Teams Foundry Engineer Relationship Specialty Start Date End Date Truong Colon MD [address] [place] [address] PCP - General Internal Medicine 03/06/23 documented as of this encounter
--- OUTSIDE RECORDS SUMMARY | 2024-12-19 13:24 | XMS_ITS | Encounter Summary ---
Author Organization [facility] Address [address] [place] [address] Phone Care Team Providers Care Belt Builder Helper Name Role Phone Truong Colon MD Primary Care Provider +1- [phone] Encounter Details Date Type Department Care Team (Late Contact Info) Description 04/10/2024 Documentation Only [facility] [address] [place] [address] Kylie Gabriel [address] [place] [address] Social History Tobacco Use Types [...] [facility] [address] [place] [address] Romero Jimenez MD [address] [place] [address] [place] [address] documented as of this encounter Visit Diagnoses Not on filedocumented in this encounter Care Teams Belt Builder Helper Relationship Specialty Start Date End Date Truong Colon MD [address] [place] [address] PCP - General Internal Medicine 03/06/23 documented as of this encounter
--- OUTSIDE RECORDS SUMMARY | 2024-12-19 13:24 | XMS_ITS | Encounter Summary ---
Author Organization [facility] Address [address] [place] [address] Phone Care Team Providers Care Sand Cutter Operator Name Role Phone Truong Colon MD Primary Care Provider +1- [phone] Encounter Details Date Type Department Care Team (Late Contact Info) Description 08/12/2024 Documentation Only [facility] [address] [place] [address] [place] [address] [place] [address] Social History Tobacco Use Types Packs/Day [...] Visit [facility] [address] [place] [address] Romero Jimenez MD [address] [place] [address] [place] [address] documented as of this encounter Visit Diagnoses Not on filedocumented in this encounter Care Teams Sand Cutter Operator Relationship Specialty Start Date End Date Truong Colon MD [address] [place] [address] PCP - General Internal Medicine 03/06/23 documented as of this encounter
--- OUTSIDE RECORDS SUMMARY | 2024-12-19 13:24 | XMS_ITS | Encounter Summary ---
Author Organization [facility] Address [address] [place] [address] Phone Care Team Providers Care Playground Worker Name Role Phone Truong Colon MD Primary Care Provider +1- [phone] Encounter Details Date Type Department Care Team (Late Contact Info) Description 08/08/2024 Orders Only [facility] [address] [place] [address] Kylie Gabriel [address] [place] [address] Anemia in chronic kidney disease; [...] Visit [facility] [address] [place] [address] Romero Jimenez MD [address] [place] [address] documented as of this encounter Visit Diagnoses Diagnosis Anemia in chronic kidney disease Stage 3b chronic kidney disease (HCC) Iron deficiency anemia, not otherwise specified documented in this encounter Care Teams Playground Worker Relationship Specialty Start Date End Date Truong Colon MD [address] [place] [address] PCP - General Internal Medicine 03/06/23 documented as of this encounter
--- OUTSIDE RECORDS SUMMARY | 2024-12-19 13:24 | XMS_ITS | Encounter Summary ---
Author Organization [facility] Address [address] [place] [address] Phone Care Team Providers Care Rolled Oats Mill Operator Name Role Phone Truong Colon MD Primary Care Provider +1- [phone] Encounter Details Date Type Department Care Team (Late Contact Info) Description 12/21/2021 Documentation Only [facility] [address] [place] [address] Dimitris Suarez PA [address] [place] [address] Social History Tobacco Use Types [...] Visit [facility] [address] [place] [address] Romero Jimenez MD [address] [place] [address] documented as of this encounter Visit Diagnoses Not on filedocumented in this encounter Care Teams Rolled Oats Mill Operator Relationship Specialty Start Date End Date Truong Colon MD [address] [place] [address] PCP - General Internal Medicine 03/06/23 documented as of this encounter
--- OUTSIDE RECORDS SUMMARY | 2024-12-19 13:24 | XMS_ITS | Encounter Summary ---
Author Organization [facility] Address [address] [place] [address] Phone Care Team Providers Care Line Appliance Assembler Name Role Phone Truong Colon MD Primary Care Provider +1- [phone] Encounter Details Date Type Department Care Team (Late Contact Info) Description 10/03/2024 Orders Only [facility] [address] [place] [place] [address] Kylie Gabriel [address] [place] [address] Anemia in chronic kidney disease; [...] Visit [facility] [address] [place] [address] Romero Jimenez MD [address] [place] [address] documented as of this encounter Visit Diagnoses Diagnosis Anemia in chronic kidney disease Stage 3b chronic kidney disease (HCC) Iron deficiency anemia, not otherwise specified documented in this encounter Care Teams Line Appliance Assembler Relationship Specialty Start Date End Date Truong Colon MD [address] [place] [address] PCP - General Internal Medicine 03/06/23 documented as of this encounter
--- OUTSIDE RECORDS SUMMARY | 2024-12-19 13:24 | XMS_ITS | Encounter Summary ---
Author Organization [facility] Address [address] [place] [address] Phone Care Team Providers Care Odd Piece Checker Name Role Phone Truong Colon MD Primary Care Provider +1- [phone] Encounter Details Date Type Department Care Team (Late Contact Info) Description 01/31/2024 Documentation Only [facility] [address] [place] [address] Kylie Gabriel [address] [place] [address] Social History Tobacco Use Types [...] [facility] [address] [place] [address] Romero Jimenez MD [address] [place] [address] [place] [address] documented as of this encounter Visit Diagnoses Not on filedocumented in this encounter Care Teams Odd Piece Checker Relationship Specialty Start Date End Date Turong Colon MD [address] [place] [address] PCP - General Internal Medicine 03/06/23 documented as of this encounter
--- OUTSIDE RECORDS SUMMARY | 2024-12-19 13:24 | XMS_ITS | Encounter Summary ---
Author Organization [facility] Address [address] [place] [address] Phone Care Team Providers Care Vertical Punch Operator Name Role Phone Truong Colon MD Primary Care Provider +1- [phone] Encounter Details Date Type Department Care Team (Late Contact Info) Description 06/03/2024 Documentation Only [facility] [address] [place] [address] Kylie Gabriel [address] [place] [address] Social History Tobacco Use Types [...] [facility] [address] [place] [address] Romero Jimenez MD [address] [place] [address] [place] [address] documented as of this encounter Visit Diagnoses Not on filedocumented in this encounter Care Teams Vertical Punch Operator Relationship Specialty Start Date End Date Truong Colon MD [address] [place] [address] PCP - General Internal Medicine 03/06/23 documented as of this encounter
--- OUTSIDE RECORDS SUMMARY | 2024-12-19 13:24 | XMS_ITS | Encounter Summary ---
Author Organization [facility] [place] [address] Care Team Providers Care Landscape Crew Leader Name Role Phone Truong Colon MD Primary Care Provider +1 [phone] Encounter Details Date Type Department Care Team (Late st Contact Info) Description 10/10/2024 Lab Requisition [facility] - Main Lab [address] [facility] [place] [id number] Ally Castañeda MD [address] [place] [address] Malignant neoplasm of unspecified site of unspecified female breast ([facility]/HCC V24, [facility] V28); Hypothyroidism, unspecified; Vitamin D deficiency, unspecified; Vitamin B12 deficiency anemia, unspecified; Spinal stenosis, site unspecified; Chronic kidney disease, stage 3 unspecified (CMS/HCC V24, CMS/HCC V28) Social History Tobacco Use Types Packs/Day Years [...] Description 11/04/2025 10:30 AM EDT Office Visit [facility] Hematology Oncology [address] [place] [id number] Jennifer Ca MD [address] [place] [phone] documented as of this encounter Procedures Procedure Name Priority Date/Time Associated Diagnosis Comments THYROID STIMULATING HORMONE WITH REFLEX TO FREE T4 AND FREE T3 Routine 10/10/2024 5:37 AM EDT Malignant neoplasm of unspecified site of unspecified female breast ([facility]/HCC V24, [facility]/HCC V28) Hypothyroidism, unspecified Vitamin D deficiency, unspecified Vitamin B12 deficiency anemia, unspecified Spinal stenosis, site unspecified Chronic kidney disease, stage 3 unspecified ([facility]/HCC V24, [facility]/HCC V28) VITAMIN D 25 HYDROXY Routine 10/10/2024 5:37 AM EDT Malignant neoplasm of unspecified site of unspecified female breast ([facility]/HCC V24, CMS/HCC V28) Hypothyroidism, unspecified Vitamin D [...] site of unspecified female breast (CMS/HCC V24, [facility]/HCC V28) Hypothyroidism, unspecified Vitamin D deficiency, unspecified Vitamin B12 deficiency anemia, unspecified Spinal stenosis, site unspecified Chronic kidney disease, stage 3 unspecified (CMS/HCC V24, CMS/HCC V28) VITAMIN B12 Routine 10/10/2024 5:37 AM EDT Malignant neoplasm of unspecified site of unspecified female breast ([facility] V24, [facility] V28) Hypothyroidism, unspecified Vitamin D deficiency, unspecified Vitamin B12 deficiency anemia, unspecified Spinal stenosis, site unspecified Chronic kidney disease, stage 3 unspecified ([facility] V24, [facility] V28) COMPREHENSIVE METABOLIC PANEL Routine 10/10/2024 5:37 AM EDT Malignant neoplasm of unspecified site of unspecified female breast ([facility] V24, [facility] V28) Hypothyroidism, unspecified Vitamin D deficiency, unspecified Vitamin B12 deficiency anemia, unspecified Spinal stenosis, site unspecified Chronic kidney disease, stage 3 unspecified ([facility] V24, [facility] V28) documented in this encounter Results * Vitamin D 25 hydroxy (10/10/2024 5:37 AM EDT) Vit D, 25-Hydroxy 52.0 30.0 - 80.0 ng/mL LAB CHEMISTRY METHOD 10/10/2024 1:[address] [facility] Blood Venous blood specimen / Unknown Venipuncture / Unknown 10/10/2024 5:37 AM EDT 10/10/2024 9:30 AM EDT us Ally Castañeda MD LAB BLOOD ORDERABLES Final Resul t [facility] [address] [place] [address], [place] [phone] * Folate (10/10/2024 5:37 AM EDT) Folate 12.9 2.8 - 17.0 ng/ml LAB CHEMISTRY METHOD 10/10/2024 11:[address] [facility] Blood Venous blood specimen / Unknown Venipuncture / Unknown 10/10/2024 5:37 AM EDT 10/10/2024 9:30 AM EDT us Ally Castañeda MD LAB BLOOD ORDERABLES Final Resul t Performing Organization Address [facility]/ZIP Co de Phone Number [facility] [address] [place] [address], [place] [phone] * Vitamin B12 (10/10/2024 5:37 AM EDT) Vitamin B-12 371 250 - 900 pcg/mL LAB CHEMISTRY METHOD 10/10/2024 11:[address] [facility] Blood Venous blood specimen / Unknown Venipuncture / Unknown 10/10/2024 5:37 AM EDT 10/10/2024 9:30 AM EDT us Ally Castañeda MD LAB BLOOD ORDERABLES Final Resul t Performing Organization Address [facility] de Phone Number [facility] [address] [place] [address], * Thyroid stimulating hormone with reflex to free t4 and free t3 (10/10/2024 5:37 AM EDT) Pathologist [facility] TSH 2.96 0.40 - 4.00 mcIU/mL LAB CHEMISTRY METHOD 10/10/2024 1:[address] [facility] Blood Venous blood specimen / Unknown Venipuncture / Unknown 10/10/2024 5:37 AM EDT 10/10/2024 9:30 AM EDT us Ally Castañeda MD LAB BLOOD ORDERABLES Final Resul t Performing Organization Address [facility]/ZIP Co de Phone Number [facility] [address] [place] [address], [place] [phone] * (ABNORMAL) Comprehensive metabolic panel (10/10/2024 5:37 AM EDT) Sodium 130(L) 133 - 145 mmol/L LAB CHEMISTRY METHOD 10/10/2024 11:[address] [facility] Potassium 4.9 3.5 - 5.5 mmol/L LAB CHEMISTRY METHOD 10/10/2024 11:35 AM [facility] Chloride 97 96 - 110 mmol/L LAB CHEMISTRY METHOD 10/10/2024 11:35 AM [facility] CO2 28 21 - 32 mmol/L LAB CHEMISTRY METHOD 10/10/2024 11:35 AM [facility] Anion Gap 5 3 - 11 LAB CHEMISTRY METHOD 10/10/2024 11:35 AM [facility] Glucose 82 70 - 100 mg/dL LAB CHEMISTRY METHOD 10/10/2024 11:35 AM [facility] BUN 37(H) 5 - 25 mg/dL LAB CHEMISTRY METHOD 10/10/2024 11:35 AM [facility] Creatinine 1.16(H) 0.50 - 1.10 mg/dL LAB CHEMISTRY METHOD 10/10/2024 11:35 AM [facility] eGFR 47(L) >=60 mL/min/1. 73m2 LAB CHEMISTRY METHOD 10/10/2024 11:35 AM [facility] Comment:Calculation based on the Chronic Kidney Disease Epidemiology Collaboration (CKD-EPI) equation refit without adjustment for race. BUN/Creatinine Ratio 31.9 LAB CHEMISTRY METHOD 10/10/2024 11:35 AM [facility] Calcium 8.9 8.5 - 10.5 mg/dL LAB CHEMISTRY METHOD 10/10/2024 11:35 AM [facility] AST (SGOT) 42 10 - 42 unit/L LAB CHEMISTRY METHOD 10/10/2024 11:35 AM [facility] ALT (SGPT) 48 10 - 60 unit/L LAB CHEMISTRY METHOD 10/10/2024 11:35 AM [facility] Alkaline Phosphatase 98 42 - 121 unit/L LAB CHEMISTRY METHOD 10/10/2024 11:35 AM [facility] Total Protein 6.3 6.0 - 8.0 g/dL LAB CHEMISTRY METHOD 10/10/2024 11:[address] [facility] Albumin 2.3(L) 3.2 - 5.0 g/dL LAB CHEMISTRY METHOD 10/10/2024 11:[address] [facility] Total Bilirubin 0.4 0.0 - 1.4 mg/dL LAB CHEMISTRY METHOD 10/10/2024 11:[address] [facility] Blood Venous blood specimen / Unknown Venipuncture / Unknown 10/10/2024 5:37 AM EDT 10/10/2024 9:30 AM EDT Ally Castañeda MD LAB BLOOD ORDERABLES Final Resul t [facility] [address] [place] [address], [place] [phone] * (ABNORMAL) Complete blood count (10/10/2024 5:37 AM EDT) WBC 9.2 4.8 - 10.8 K/mcL LAB HEMETOLOGY METHOD 10/10/2024 10:[address] [facility] RBC 3.10(L) 3.80 - 4.80 M/mcL LAB HEMETOLOGY METHOD 10/10/2024 10:[address] [facility] Hemoglobin 8.8(L) 11.5 - 16.0 g/dL LAB HEMETOLOGY METHOD 10/10/2024 10:[address] [facility] Hematocrit 28.0(L) 35.0 - 47.0 % LAB HEMETOLOGY METHOD 10/10/2024 10:[address] [facility] MCV 89.7 79.0 - 98.0 FL LAB HEMETOLOGY METHOD 10/10/2024 10:[address] [facility] MCH 28.2 27.0 - 32.0 pcg LAB HEMETOLOGY METHOD 10/10/2024 10:[address] [facility] MCHC 31.4(L) 32.0 - 37.0 g/dL LAB HEMETOLOGY METHOD 10/10/2024 10:[address] [facility] RDW 13.2 11.0 - 15.0 % LAB HEMETOLOGY METHOD 10/10/2024 10:[address] [facility] Platelets 261 130 - 400 K/mcL LAB HEMETOLOGY METHOD 10/10/2024 10:[address] [facility] MPV 11.0 7.0 - 11.0 FL LAB HEMETOLOGY METHOD 10/10/2024 10:[address] [facility] NRBC 0.0 <1.0 % LAB HEMETOLOGY METHOD 10/10/2024 10:[address] [facility] NRBC Absolute 0.00 <0.10 K/mcL LAB HEMETOLOGY METHOD 10/10/2024 10:[address] [facility] Blood Venous blood specimen / Unknown Venipuncture / Unknown 10/10/2024 5:37 AM EDT 10/10/2024 9:30 AM EDT us Ally Castañeda MD LAB BLOOD ORDERABLES Final Resul t [facility] [address] [place] [address], documented in this encounter Visit Diagnoses Diagnosis Malignant neoplasm of unspecified site of unspecified female breast (CMS/HCC V24, CMS/HCC V28) Hypothyroidism, unspecified Vitamin D deficiency, unspecified Vitamin B12 deficiency anemia, unspecified Spinal stenosis, site unspecified Chronic kidney disease, stage 3 unspecified (CMS/HCC V24, CMS/HCC V28) documented in this encounter Care Teams Landscape Crew Leader Relationship Specialty Start Date End Date Truong Colon MD [address] JAEL Christian PCP - General 05/19/22 documented as of this encounter
--- OUTSIDE RECORDS SUMMARY | 2024-12-19 13:24 | XMS_ITS | Encounter Summary ---
Author Organization [facility] Address [address] [place] [address] Phone Care Team Providers Care Film Inspector Name Role Phone Truong Colon MD Primary Care Provider +1- [phone] Encounter Details Date Type Department Care Team (Late Contact Info) Description 10/26/2023 Documentation Only [facility] [address] [place] [address] Kylie Gabriel [address] [place] [address] Social History Tobacco Use Types [...] [facility] [address] [place] [address] Romero Jimenez MD [address] [place] [address] [place] [address] documented as of this encounter Visit Diagnoses Not on filedocumented in this encounter Care Teams Film Inspector Relationship Specialty Start Date End Date Truong Colon MD [address] [place] [address] PCP - General Internal Medicine 03/06/23 documented as of this encounter
--- OUTSIDE RECORDS SUMMARY | 2024-12-19 13:24 | XMS_ITS | Encounter Summary ---
Author Organization [facility] Address [address] [place] [address] Phone Care Team Providers Care Outsole Handler Name Role Phone Truong Colon MD Primary Care Provider +1- [phone] Encounter Details Date Type Department Care Team (Late Contact Info) Description 11/28/2024 Orders Only [facility] [address] [place] [address] Kylie Gabriel [address] [place] [address] Anemia in chronic kidney disease; [...] Visit [facility] [address] [place] [address] Romero Jimenez MD [address] [place] [address] documented as of this encounter Visit Diagnoses Diagnosis Anemia in chronic kidney disease Stage 3b chronic kidney disease (HCC) Iron deficiency anemia, not otherwise specified documented in this encounter Care Teams Outsole Handler Relationship Specialty Start Date End Date Truong Colon MD [address] [place] [address] PCP - General Internal Medicine 03/06/23 documented as of this encounter
--- OUTSIDE RECORDS SUMMARY | 2024-12-19 13:24 | XMS_ITS | Encounter Summary ---
Author Organization [facility] Address [address] [place] [address] Phone Care Team Providers Care Mri Assistant Name Role Phone Truong Colon MD Primary Care Provider +1- [phone] Encounter Details Date Type Department Care Team (Late Contact Info) Description 10/29/2023 Documentation Only [facility] [address] [place] [address] Kylie Gabriel [address] [place] [address] Social History Tobacco Use Types [...] [facility] [address] [place] [address] Romero Jimenez MD [address] [place] [address] [place] [address] documented as of this encounter Visit Diagnoses Not on filedocumented in this encounter Care Teams Mri Assistant Relationship Specialty Start Date End Date Truong Colon MD [address] [place] [address] PCP - General Internal Medicine 03/06/23 documented as of this encounter
--- OUTSIDE RECORDS SUMMARY | 2024-12-19 13:24 | XMS_ITS | Encounter Summary ---
Author Organization [facility] Address [address] [place] [address] Phone Care Team Providers Care Bottom Sprayer Name Role Phone Truong Colon MD Primary Care Provider +1- [phone] Encounter Details Date Type Department Care Team (Late Contact Info) Description 05/12/2021 Documentation Only [facility] [address] [place] [address] Eligio Meza MD [address] [place] [address] [place] [address] Social History Tobacco Use Types [...] Visit [facility] [address] [place] [address] Romero Jimenez MD [address] [place] [address] documented as of this encounter Visit Diagnoses Not on filedocumented in this encounter Care Teams Bottom Sprayer Relationship Specialty Start Date End Date Truong Colon MD [address] [place] [address] PCP - General Internal Medicine 03/06/23 documented as of this encounter
--- OUTSIDE RECORDS SUMMARY | 2024-12-19 13:24 | XMS_ITS | Encounter Summary ---
Author Organization [facility] Address [address] [place] [address] Phone Care Team Providers Care Lockstitch Shoulder Joiner Name Role Phone Truong Colon MD Primary Care Provider +1- [phone] Encounter Details Date Type Department Care Team (Late Contact Info) Description 01/21/2024 Orders Only [facility] [address] [place] [address] Dimitris Suarez PA [address] [place] [address] [place] [address] Stage 3a chronic kidney disease [...] Visit [facility] [address] [place] [address] Romero Jimenez MD [address] [place] [address] [place] [address] documented as of this encounter Visit Diagnoses Diagnosis Stage 3a chronic kidney disease (HCC) Essential hypertension Peripheral vascular disease (HCC) Peripheral vascular disease Renal osteodystrophy documented in this encounter Care Teams Lockstitch Shoulder Joiner Relationship Specialty Start Date End Date Truong Colon MD [address] [place] [address] PCP - General Internal Medicine 03/06/23 documented as of this encounter
--- OUTSIDE RECORDS SUMMARY | 2024-12-19 13:24 | XMS_ITS | Encounter Summary ---
Author Organization [facility] Address [address] [place] [address] Phone Care Team Providers Care Maintenance Data Analyst Name Role Phone Truong Colon MD Primary Care Provider +1- [phone] Encounter Details Date Type Department Care Team (Late Contact Info) Description 04/04/2024 Documentation Only [facility] [address] [place] [address] Jasmin Dumont [address] [place] [address] Social History Tobacco Use Types [...] [facility] [address] [place] [address] Romero Jimenez MD [address] [place] [address] [place] [address] documented as of this encounter Visit Diagnoses Not on filedocumented in this encounter Care Teams Maintenance Data Analyst Relationship Specialty Start Date End Date Truong Colon MD [address] [place] [address] PCP - General Internal Medicine 03/06/23 documented as of this encounter
--- OUTSIDE RECORDS SUMMARY | 2024-12-19 13:24 | XMS_ITS | Encounter Summary ---
Author Organization [facility] Address [address] [place] [address] Phone Care Team Providers Care Transportation Planner Name Role Phone Truong Colon MD Primary Care Provider +1- [phone] Encounter Details Date Type Department Care Team (Late Contact Info) Description 09/05/2024 Orders Only [facility] [address] [place] [address] Kylie Gabriel [address] [place] [address] Anemia in chronic kidney disease; [...] Visit [facility] [address] [place] [address] Romero Jimenez MD [address] [facility] [place] [address] documented as of this encounter Visit Diagnoses Diagnosis Anemia in chronic kidney disease Stage 3b chronic kidney disease (HCC) Iron deficiency anemia, not otherwise specified documented in this encounter Care Teams Transportation Planner Relationship Specialty Start Date End Date Truong Colon MD [address] [place] [address] PCP - General Internal Medicine 03/06/23 documented as of this encounter
--- OUTSIDE RECORDS SUMMARY | 2024-12-19 13:24 | XMS_ITS | Encounter Summary ---
Author Organization [facility] Address [address] [place] [address] Phone Care Team Providers Care Fashion Illustrator Name Role Phone Truong Colon MD Primary Care Provider +1- [phone] Encounter Details Date Type Department Care Team (Late Contact Info) Description 05/27/2024 Documentation Only [facility] [address] [place] [address] Kylie Gabriel [address] [place] [address] Social History Tobacco Use Types [...] [facility] [address] [place] [address] Romero Jimenez MD [address] [place] [address] [place] [address] documented as of this encounter Visit Diagnoses Not on filedocumented in this encounter Care Teams Fashion Illustrator Relationship Specialty Start Date End Date Truong Colon MD [address] [place] [address] PCP - General Internal Medicine 03/06/23 documented as of this encounter
--- OUTSIDE RECORDS SUMMARY | 2024-12-19 13:24 | XMS_ITS | Encounter Summary ---
Author Organization [facility] Address [address] [place] [address] Phone Care Team Providers Care Rubber And Plastics Worker Name Role Phone Truong Colon MD Primary Care Provider +1- [phone] Encounter Details Date Type Department Care Team (Late Contact Info) Description 04/14/2022 Documentation Only [facility] [address] [place] [address] Eligio Meza MD [address] [place] [address] [place] [address] Social History Tobacco Use Types [...] [facility] / [facility] [address] [place] [address] Romero Jimenez MD [address] [facility] [place] [address] documented as of this encounter Visit Diagnoses Not on filedocumented in this encounter Care Teams Rubber And Plastics Worker Relationship Specialty Start Date End Date Truong Colon MD [address] [place] [address] PCP - General Internal Medicine 03/06/23 documented as of this encounter
--- OUTSIDE RECORDS SUMMARY | 2024-12-19 13:24 | XMS_ITS | Encounter Summary ---
Author Organization [facility] Address [address] [place] [address] Phone Care Team Providers Care Professor Of Chemistry Name Role Phone Truong Colon MD Primary Care Provider +1- [phone] Encounter Details Date Type Department Care Team (Late Contact Info) Description 01/23/2024 Documentation Only [facility], - [address] [place] [address] Jasmin Dumont [address] [place] [address] Social History Tobacco Use Types Packs/Day [...] Visit [facility] [place], [address] [place] [address] Romero Jimenez MD [address] [place] [address] documented as of this encounter Visit Diagnoses Not on filedocumented in this encounter Care Teams Professor Of Chemistry Relationship Specialty Start Date End Date Truong Colon MD [address] [place] [address] PCP - General Internal Medicine 03/06/23 documented as of this encounter
--- OUTSIDE RECORDS SUMMARY | 2024-12-19 13:24 | XMS_ITS | Clinical Summary ---
Author Organization [facility] [facility] Address [address] [place] [address] Care Team Providers Care Analytical Data Miner Name Role Phone Truong Colon MD Primary Care Provider +1- [phone] Allergies Active Allergy Reactions Criticality Noted Date [...] age to complete this topic Care Teams Analytical Data Miner Relationship Specialty Start Date End Date Truong Colon MD [address] [place] [address] PCP - General Internal Medicine 05/19/22
--- OUTSIDE RECORDS SUMMARY | 2024-12-19 13:24 | XMS_ITS | Encounter Summary ---
Author Organization [facility] Address [address] [place] [address] Phone Care Team Providers Care Electric Motor Analyst Name Role Phone Truong Colon MD Primary Care Provider +1- [phone] Encounter Details Date Type Department Care Team (Late Contact Info) Description 05/04/2022 Documentation Only [facility] [address] [place] [address] Kylie Gabriel [address] [place] [address] Social History Tobacco Use Types [...] [facility] [address] [place] [address] Romero Jimenez MD [address] [place] [address] [place] [address] documented as of this encounter Visit Diagnoses Not on filedocumented in this encounter Care Teams Electric Motor Analyst Relationship Specialty Start Date End Date Truong Colon MD [address] [place] [address] PCP - General Internal Medicine 03/06/23 documented as of this encounter
--- OUTSIDE RECORDS SUMMARY | 2024-12-19 13:24 | XMS_ITS ---
Author Organization [facility] Address [address] [place] [address] Care Team Providers Care Creative Technologist Name Role Phone Truong Colon MD Primary Care Provider +1- [phone] Active Problems Problem Noted Date Diagnosed Date [...]
--- OUTSIDE RECORDS SUMMARY | 2024-12-19 13:24 | XMS_ITS | Encounter Summary ---
Author Organization [facility] Address [address] [place] [address] Phone Care Team Providers Care Toll Line Inspector Name Role Phone Truong Colon MD Primary Care Provider +1- [phone] Encounter Details Date Type Department Care Team (Late Contact Info) Description 08/04/2024 Documentation Only [facility] [address] [place] [address] Kylie Gabriel [address] [place] [address] Social History Tobacco Use Types [...] [facility] [address] [place] [address] Romero Jimenez MD [address] [place] [address] [place] [address] documented as of this encounter Visit Diagnoses Not on filedocumented in this encounter Care Teams Toll Line Inspector Relationship Specialty Start Date End Date Truong Colon MD [address] [place] [address] PCP - General Internal Medicine 03/06/23 documented as of this encounter
--- OUTSIDE RECORDS SUMMARY | 2024-12-19 13:24 | XMS_ITS | Encounter Summary ---
Author Organization [facility] Address [address] [place] [address] Phone Care Team Providers Care Captain Fishing Vessel Name Role Phone Truong Colon MD Primary Care Provider +1- [phone] Encounter Details Date Type Department Care Team (Late Contact Info) Description 01/14/2024 Documentation Only [facility] [address] [place] [address] [place] [address] [place] [address] Social History Tobacco Use Types Packs/Day [...] Visit [facility] [address] [place] [address] Romero Jimenez MD [address] [place] [address] documented as of this encounter Visit Diagnoses Not on filedocumented in this encounter Care Teams Captain Fishing Vessel Relationship Specialty Start Date End Date Truong Colon MD [address] [place] [address] PCP - General Internal Medicine 03/06/23 documented as of this encounter
--- OUTSIDE RECORDS SUMMARY | 2024-12-19 13:24 | XMS_ITS | Encounter Summary ---
Author Organization [facility] [place] [address] Care Team Providers Care Technical Lead Name Role Phone Truong Colon MD Primary Care Provider [phone] Encounter Details Date Type Department Care Team (Late Contact Info) Description 10/30/2024 Lab Requisition [facility] - Main Lab [address] [facility] [place] [address] Ally Castañeda MD [address] [place] [address] Spinal stenosis, site unspecified; Chronic kidney disease, unspecified Social History Tobacco Use Types Packs/Day Years [...] Department Care Team (Late Contact Info) Description 11/04/2025 10:30 AM EDT Office Visit [facility] Hematology Oncology [address] [place] [address] Jennifer Ca MD [address] [place] [address] [phone] (work) documented as of this encounter Procedures Procedure Name Priority Date/Time Associated Diagnosis Comments COMPLETE BLOOD COUNT Routine 10/31/2024 7:20 AM EDT Spinal stenosis, site unspecified Chronic kidney disease, unspecified BASIC METABOLIC PANEL Routine 10/31/2024 7:20 AM EDT Spinal stenosis, site unspecified Chronic kidney disease, unspecified documented in this encounter Results * Basic metabolic panel (10/31/2024 7:20 AM EDT) Sodium 142 133 - 145 mmol/L LAB CHEMISTRY METHOD 10/31/2024 11:08 AM [facility] Potassium 4.7 3.5 - 5.5 mmol/L LAB CHEMISTRY METHOD 10/31/2024 11:08 AM [facility] Chloride 109 96 - 110 mmol/L LAB CHEMISTRY METHOD 10/31/2024 11:08 AM [facility] CO2 30 21 - 32 mmol/L LAB CHEMISTRY METHOD 10/31/2024 11:08 AM [facility] Anion Gap 3 3 - 11 LAB CHEMISTRY METHOD 10/31/2024 11:08 AM [facility] Glucose 78 70 - 100 mg/dL LAB CHEMISTRY METHOD 10/31/2024 11:08 AM [facility] BUN 11 5 - 25 mg/dL LAB CHEMISTRY METHOD 10/31/2024 11:08 AM [facility] Creatinine 0.92 0.50 - 1.10 mg/dL LAB CHEMISTRY METHOD 10/31/2024 11:08 AM [facility] eGFR 63 >=60 mL/min/1. 73m2 LAB CHEMISTRY METHOD 10/31/2024 11:08 AM [facility] Comment:Calculation based on the Chronic Kidney Disease Epidemiology Collaboration (CKD-EPI) equation refit without adjustment for race. BUN/Creatinine Ratio 12.0 LAB CHEMISTRY METHOD 10/31/2024 11:08 AM EDT [facility] Calcium 8.9 8.5 - 10.5 mg/dL LAB CHEMISTRY METHOD 10/31/2024 11:08 AM [facility] Blood Venous blood specimen / Unknown Venipuncture / Unknown 10/31/2024 7:20 AM EDT 10/31/2024 10:27 AM EDT us Ally Castañeda MD LAB BLOOD ORDERABLES Final Resul t [facility] [address] [place] [address], * (ABNORMAL) Complete blood count (10/31/2024 7:20 AM EDT) WBC 3.7(L) 4.8 - 10.8 K/mcL LAB HEMETOLOGY METHOD 10/31/2024 10:38 AM [facility] RBC 3.60(L) 3.80 - 4.80 M/mcL LAB HEMETOLOGY METHOD 10/31/2024 10:38 AM [facility] Hemoglobin 9.9(L) 11.5 - 16.0 g/dL LAB HEMETOLOGY METHOD 10/31/2024 10:38 AM [facility] Hematocrit 32.8(L) 35.0 - 47.0 % LAB HEMETOLOGY METHOD 10/31/2024 10:38 AM [facility] MCV 90.6 79.0 - 98.0 FL LAB HEMETOLOGY METHOD 10/31/2024 10:38 AM [facility] MCH 27.3 27.0 - 32.0 pcg LAB HEMETOLOGY METHOD 10/31/2024 10:38 AM [facility] MCHC 30.2(L) 32.0 - 37.0 g/dL LAB HEMETOLOGY METHOD 10/31/2024 10:38 AM EDT [facility] RDW 15.1(H) 11.0 - 15.0 % LAB HEMETOLOGY METHOD 10/31/2024 10:38 AM EDT [facility] Platelets 239 130 - 400 K/mcL LAB HEMETOLOGY METHOD 10/31/2024 10:38 AM EDT [facility] MPV 10.6 7.0 - 11.0 FL LAB HEMETOLOGY METHOD 10/31/2024 10:38 AM EDT [facility] NRBC 0.0 <1.0 % LAB HEMETOLOGY METHOD 10/31/2024 10:38 AM EDT [facility] NRBC Absolute 0.00 <0.10 K/mcL LAB HEMETOLOGY METHOD 10/31/2024 10:38 AM EDT [facility] Blood Venous blood specimen / Unknown Venipuncture / Unknown 10/31/2024 7:20 AM EDT 10/31/2024 10:27 AM EDT us Ally Castañeda MD LAB BLOOD ORDERABLES Final Resul t [facility] [address] [place] [address], documented in this encounter Visit Diagnoses Diagnosis Spinal stenosis, site unspecified Chronic kidney disease, unspecified documented in this encounter Care Teams Technical Lead Relationship Specialty Start Date End Date Truong Colon MD [address] [place] PCP - General 05/19/22 documented as of this encounter
--- OUTSIDE RECORDS SUMMARY | 2024-12-19 13:25 | XMS_ITS | Clinical Summary ---
Author Organization [facility] Address [address] [place] [address] [address] [place] [address] Phone Care Team Providers Care Restaurant Shift Supervisor Name Role Phone Dimple Vergara MD Primary [...] file Medical Devices Not on file Insurance [facility] MEDICARE REPLACEMENT [facility] MEDIC[facility]PLACEMENT [facility] MEDICARE [facility]PLACEMENT [facility] MEDICARE REPLACEMENT [facility] MEDICARE REPLACEMENT [facility] MEDICARE REPLACEMENT [facility] MEDICARE REPLACEMENT [facility] MEDICARE [facility]PLACEMENT [facility] MEDICARE REPLACEMENT Care Teams Restaurant Shift Supervisor Relationship Specialty Start Date End Date Dimple Vergara MD [address] [place] [address] PCP - General 11/13/13 Additional Source Comments The information contained in this document represents components of the legal health record. It is not the complete legal health record.[facility]
--- OUTSIDE RECORDS SUMMARY | 2024-12-19 13:25 | XMS_ITS | Encounter Summary ---
Author Organization [facility] [place] [address] Care Team Providers Care Certified Caregiver Name Role Phone Truong Colon MD Primary Care Provider Encounter Details Date Type Department Care Team (Late Contact Info) Description 11/06/2024 Lab Requisition [facility] - Main Lab 299 [facility] [place] [address] Ally Castañeda MD [address] [place] [address] Spinal stenosis, site unspecified; Chronic [...] Description 11/04/2025 10:30 AM EDT Office Visit [facility] Hematology Oncology [address] [place] [address] Jennifer Ca MD [address] [place] [address] documented as of this encounter Visit Diagnoses Diagnosis Spinal stenosis, site unspecified Chronic kidney disease, unspecified documented in this encounter Care Teams Certified Caregiver Relationship Specialty Start Date End Date Truong Colon MD [address] [place] [address] Dr [address] [place], [place] PCP - General 05/19/22 documented as of this encounter
--- OUTSIDE RECORDS SUMMARY | 2024-12-19 13:25 | XMS_ITS | Encounter Summary ---
Author Organization [facility] [place] [address] Care Team Providers Care Medicine Aide Name Role Phone Truong Colon MD Primary Care Provider +1 [phone] Encounter Details Date Type Department Care Team (Late Contact Info) Description 10/22/2024 Lab Requisition [facility] - Main Lab 299 [facility] [place] [address] Ally Castañeda MD [address] [place], [place] [id number] Essential (primary) hypertension; Anemia, unspecified Social History Tobacco Use Types Packs/Day [...] 11/04/2025 10:30 AM EDT Office Visit [facility] Hematology Oncology [address] [place] [address] Jennifer Ca MD [address] [place] [address] documented as of this encounter Procedures Procedure Name Priority Date/Time Associated Diagnosis Comments COMPLETE BLOOD COUNT Routine 10/22/2024 5:26 AM EDT Essential (primary) hypertension Anemia, unspecified FERRITIN Routine 10/22/2024 5:26 AM EDT Essential (primary) hypertension Anemia, unspecified BASIC METABOLIC PANEL Routine 10/22/2024 5:26 AM EDT Essential (primary) hypertension Anemia, unspecified documented in this encounter Results * (ABNORMAL) Ferritin (10/22/2024 5:26 AM EDT) Pathologist [facility] Ferritin 283(H) 8 - 252 ng/mL LAB CHEMISTRY METHOD 10/22/2024 9:41 AM EDT [facility] Blood Venous blood specimen / Unknown Venipuncture / Unknown 10/22/2024 5:26 AM EDT 10/22/2024 8:36 AM EDT us Ally Castañeda MD LAB BLOOD ORDERABLES Final Resul t [facility] [address] [place] [address], * (ABNORMAL) Basic metabolic panel (10/22/2024 5:26 AM EDT) Pathologist [facility] Sodium 140 133 - 145 mmol/L LAB CHEMISTRY METHOD 10/22/2024 9:41 AM EDT [facility] Potassium 5.5 3.5 - 5.5 mmol/L LAB CHEMISTRY METHOD 10/22/2024 9:41 AM EDT [facility] Chloride 107 96 - 110 mmol/L LAB CHEMISTRY METHOD 10/22/2024 9:41 AM EDT [facility] CO2 30 21 - 32 mmol/L LAB CHEMISTRY METHOD 10/22/2024 9:41 AM EDT [facility] Anion Gap 3 3 - 11 LAB CHEMISTRY METHOD 10/22/2024 9:41 AM EDT [facility] Glucose 69(L) 70 - 100 mg/dL LAB CHEMISTRY METHOD 10/22/2024 9:41 AM EDT [facility] BUN 21 5 - 25 mg/dL LAB CHEMISTRY METHOD 10/22/2024 9:41 AM EDT [facility] Creatinine 0.90 0.50 - 1.10 mg/dL LAB CHEMISTRY METHOD 10/22/2024 9:41 AM EDT [facility] eGFR 64 >=60 mL/min/1. 73m2 LAB CHEMISTRY METHOD 10/22/2024 9:41 AM EDT [facility] Comment:Calculation based on the Chronic Kidney Disease Epidemiology Collaboration (CKD-EPI) equation refit without adjustment for race. BUN/Creatinine Ratio 23.3 LAB CHEMISTRY METHOD 10/22/2024 9:[address] [facility] Calcium 9.0 8.5 - 10.5 mg/dL LAB CHEMISTRY METHOD 10/22/2024 9:[address] [facility] Blood Venous blood specimen / Unknown Venipuncture / Unknown 10/22/2024 5:26 AM EDT 10/22/2024 8:36 AM EDT us Ally Castañeda MD LAB BLOOD ORDERABLES Final Resul t [facility] [address] [place] [address], * (ABNORMAL) Complete blood count (10/22/2024 5:26 AM EDT) WBC 5.7 4.8 - 10.8 K/mcL LAB HEMETOLOGY METHOD 10/22/2024 9:09 AM EDT [facility] RBC 3.20(L) 3.80 - 4.80 M/mcL LAB HEMETOLOGY METHOD 10/22/2024 9:[address] [facility] Hemoglobin 8.6(L) 11.5 - 16.0 g/dL LAB HEMETOLOGY METHOD 10/22/2024 9:[address] [facility] Hematocrit 28.7(L) 35.0 - 47.0 % LAB HEMETOLOGY METHOD 10/22/2024 9:[address] [facility] MCV 90.8 79.0 - 98.0 FL LAB HEMETOLOGY METHOD 10/22/2024 9:[address] [facility] MCH 27.2 27.0 - 32.0 pcg LAB HEMETOLOGY METHOD 10/22/2024 9:[address] [facility] MCHC 30.0(L) 32.0 - 37.0 g/dL LAB HEMETOLOGY METHOD 10/22/2024 9:[address] [facility] RDW 13.4 11.0 - 15.0 % LAB HEMETOLOGY METHOD 10/22/2024 9:[address] [facility] Platelets 383 130 - 400 K/mcL LAB HEMETOLOGY METHOD 10/22/2024 9:[address] [facility] MPV 10.0 7.0 - 11.0 FL LAB HEMETOLOGY METHOD 10/22/2024 9:[address] [facility] NRBC 0.0 <1.0 % LAB HEMETOLOGY METHOD 10/22/2024 9:[address] [facility] NRBC Absolute 0.00 <0.10 K/mcL LAB HEMETOLOGY METHOD 10/22/2024 9:[address] [facility] Blood Venous blood specimen / Unknown Venipuncture / Unknown 10/22/2024 5:26 AM EDT 10/22/2024 8:36 AM EDT Ally Castañeda MD LAB BLOOD ORDERABLES Final Resul t [facility] [address] [place] [address], documented in this encounter Visit Diagnoses Diagnosis Essential (primary) hypertension Unspecified essential hypertension Anemia, unspecified documented in this encounter Care Teams Medicine Aide Relationship Specialty Start Date End Date Truong Cloon MD [address] [place] [address] Dr [address] [place], [place] PCP - General 05/19/22 documented as of this encounter
--- OUTSIDE RECORDS SUMMARY | 2024-12-19 13:25 | XMS_ITS | Encounter Summary ---
Author Organization [facility] [place] [address] Care Team Providers Care Business Administration Instructor Name Role Phone Truong Colon MD Primary Care Provider [phone] Encounter Details Date Type Department Care Team (Late Contact Info) Description 10/16/2024 Lab Requisition [facility] - Main Lab 299 [facility] [place] [address] Ally Castañeda MD [address] [place] [address] Spinal stenosis, site unspecified; Chronic [...] Description 11/04/2025 10:30 AM EDT Office Visit [facility] Hematology Oncology [address] [place] [address] Jennifer Ca MD [address] [place] [address] [phone] (work) documented as of this encounter Procedures Procedure Name Priority Date/Time Associated Diagnosis Comments COMPLETE BLOOD COUNT Routine 10/17/2024 7:36 AM EDT Spinal stenosis, site unspecified Chronic kidney disease, unspecified BASIC METABOLIC PANEL Routine 10/17/2024 7:36 AM EDT Spinal stenosis, site unspecified Chronic kidney disease, unspecified documented in this encounter Results * (ABNORMAL) Basic metabolic panel (10/17/2024 7:36 AM EDT) Sodium 136 133 - 145 mmol/L LAB CHEMISTRY METHOD 10/17/2024 12:13 PM [facility] Potassium 5.6(H) 3.5 - 5.5 mmol/L LAB CHEMISTRY METHOD 10/17/2024 12:13 PM [facility] Chloride 103 96 - 110 mmol/L LAB CHEMISTRY METHOD 10/17/2024 12:13 PM [facility] CO2 28 21 - 32 mmol/L LAB CHEMISTRY METHOD 10/17/2024 12:13 PM [facility] Anion Gap 5 3 - 11 LAB CHEMISTRY METHOD 10/17/2024 12:13 PM [facility] Glucose 77 70 - 100 mg/dL LAB CHEMISTRY METHOD 10/17/2024 12:13 PM [facility] BUN 23 5 - 25 mg/dL LAB CHEMISTRY METHOD 10/17/2024 12:13 PM [facility] Creatinine 1.02 0.50 - 1.10 mg/dL LAB CHEMISTRY METHOD 10/17/2024 12:13 PM [facility] eGFR 55(L) >=60 mL/min/1. 73m2 LAB CHEMISTRY METHOD 10/17/2024 12:13 PM [facility] Comment:Calculation based on the Chronic Kidney Disease Epidemiology Collaboration (CKD-EPI) equation refit without adjustment for race. BUN/Creatinine Ratio 22.5 LAB CHEMISTRY METHOD 10/17/2024 12:13 PM T [facility] Calcium 8.9 8.5 - 10.5 mg/dL LAB CHEMISTRY METHOD 10/17/2024 12:13 PM [facility] Blood Venous blood specimen / Unknown Venipuncture / Unknown 10/17/2024 7:36 AM EDT 10/17/2024 11:30 AM EDT us Ally Castañeda MD LAB BLOOD ORDERABLES Final Resul t [facility] [address] [place] [address], [place] [phone] * (ABNORMAL) Complete blood count (10/17/2024 7:36 AM EDT) WBC 6.5 4.8 - 10.8 K/mcL LAB HEMETOLOGY METHOD 10/17/2024 12:00 PM [facility] RBC 3.40(L) 3.80 - 4.80 M/mcL LAB HEMETOLOGY METHOD 10/17/2024 12:00 PM [facility] Hemoglobin 9.2(L) 11.5 - 16.0 g/dL LAB HEMETOLOGY METHOD 10/17/2024 12:00 PM [facility] Hematocrit 30.9(L) 35.0 - 47.0 % LAB HEMETOLOGY METHOD 10/17/2024 12:00 PM [facility] MCV 91.2 79.0 - 98.0 FL LAB HEMETOLOGY METHOD 10/17/2024 12:00 PM [facility] MCH 27.1 27.0 - 32.0 pcg LAB HEMETOLOGY METHOD 10/17/2024 12:00 PM [facility] MCHC 29.8(L) 32.0 - 37.0 g/dL LAB HEMETOLOGY METHOD 10/17/2024 12:00 PM EDT [facility] RDW 13.2 11.0 - 15.0 % LAB HEMETOLOGY METHOD 10/17/2024 12:00 PM EDT [facility] Platelets 495(H) 130 - 400 K/mcL LAB HEMETOLOGY METHOD 10/17/2024 12:00 PM EDT [facility] MPV 10.0 7.0 - 11.0 FL LAB HEMETOLOGY METHOD 10/17/2024 12:00 PM EDT [facility] NRBC 0.0 <1.0 % LAB HEMETOLOGY METHOD 10/17/2024 12:00 PM EDT [facility] NRBC Absolute 0.00 <0.10 K/mcL LAB HEMETOLOGY METHOD 10/17/2024 12:00 PM EDT [facility] Blood Venous blood specimen / Unknown Venipuncture / Unknown 10/17/2024 7:36 AM EDT 10/17/2024 11:30 AM EDT us Ally Castañeda MD LAB BLOOD ORDERABLES Final Resul t [facility] [address] [place] [address], documented in this encounter Visit Diagnoses Diagnosis Spinal stenosis, site unspecified Chronic kidney disease, unspecified documented in this encounter Care Teams Business Administration Instructor Relationship Specialty Start Date End Date Truong Colon MD [address] [place] [address] Dr Eric Christian [place] PCP - General 05/19/22 documented as of this encounter
--- OUTSIDE RECORDS SUMMARY | 2024-12-19 13:25 | XMS_ITS ---
Author Organization [facility], Address [address] [place] [address] [place] [address] Phone Care Team Providers Care Line Pilot Name Role Phone Truong Colon MD Primary Care Provider +1- [phone] Active Problems Problem Noted Date Diagnosed Date [...]
--- OUTSIDE RECORDS SUMMARY | 2024-12-19 13:25 | XMS_ITS | Encounter Summary ---
Author Organization [facility] Address [address] [place] [address] Phone Care Team Providers Care Operations And Intelligence Assistant Name Role Phone Truong Colon MD Primary Care Provider +1- [phone] Encounter Details Date Type Department Care Team (Late Contact Info) Description 07/11/2024 Orders Only [facility] [address] [place] [address] Kylie Gabriel [address] [place] [address] Anemia in chronic kidney disease; [...] [facility] [address] [place] [address] Romero Jimenez MD [address] [place] [address] documented as of this encounter Visit Diagnoses Diagnosis Anemia in chronic kidney disease Stage 3b chronic kidney disease (HCC) Iron deficiency anemia, not otherwise specified documented in this encounter Care Teams Operations And Intelligence Assistant Relationship Specialty Start Date End Date Truong Colon MD [address] [place] [address] PCP - General Internal Medicine 03/06/23 documented as of this encounter
--- OUTSIDE RECORDS SUMMARY | 2024-12-19 13:25 | XMS_ITS | Encounter Summary ---
Author Organization [facility] Address [address] [place] [address] Phone Care Team Providers Care Pricing/Signage Team Member Name Role Phone Truong Colon MD Primary Care Provider +1- [phone] Encounter Details Date Type Department Care Team (Late Contact Info) Description 10/31/2024 Orders Only [facility] [address] [place] [address] Kylie Gabriel [address] [place] [address] Anemia in chronic kidney disease; [...] Visit [facility] [address] [place] [address] Romero Jimenez MD [address] [place] [address] documented as of this encounter Visit Diagnoses Diagnosis Anemia in chronic kidney disease Stage 3b chronic kidney disease (HCC) Iron deficiency anemia, not otherwise specified documented in this encounter Care Teams Pricing/Signage Team Member Relationship Specialty Start Date End Date Truong Colon MD [address] [place] [address] PCP - General Internal Medicine 03/06/23 documented as of this encounter
--- OUTSIDE RECORDS SUMMARY | 2024-12-19 13:25 | XMS_ITS | Encounter Summary ---
Author Organization [facility] Address [address] [place] [address] Phone Care Team Providers Care Peoplesoft Crm Developer Name Role Phone Truong Colon MD Primary Care Provider +1- [phone] Encounter Details Date Type Department Care Team (Late Contact Info) Description 04/29/2024 Documentation Only [facility] [address] [place] [address] Britt Sol [address] [place] [address] Social History Tobacco Use Types [...] [facility] [address] [place] [address] Romero Jimenez MD [address] [place] [address] [place] [address] documented as of this encounter Visit Diagnoses Not on filedocumented in this encounter Care Teams Peoplesoft Crm Developer Relationship Specialty Start Date End Date Truong Colon MD [address] [place] [address] PCP - General Internal Medicine 03/06/23 documented as of this encounter
--- OUTSIDE RECORDS SUMMARY | 2024-12-19 13:25 | XMS_ITS | Encounter Summary ---
Author Organization [facility] Address [address] [place] [address] Phone Care Team Providers Care Gold Leaf Layer Name Role Phone Truong Colon MD Primary Care Provider +1- [phone] Encounter Details Date Type Department Care Team (Late Contact Info) Description 06/13/2024 Orders Only [facility] [address] [place] [address] Kylie Gabriel [address] [place] [address] Anemia in chronic kidney [...] Visit [facility] [address] [place] [address] Romero Jimenez MD [address] [place] [address] documented as of this encounter Visit Diagnoses Diagnosis Anemia in chronic kidney disease Stage 3b chronic kidney disease (HCC) Iron deficiency anemia, not otherwise specified documented in this encounter Care Teams Gold Leaf Layer Relationship Specialty Start Date End Date Truong Colon MD [address] [place] [address] PCP - General Internal Medicine 03/06/23 documented as of this encounter
--- OUTSIDE RECORDS SUMMARY | 2024-12-19 13:25 | XMS_ITS | Encounter Summary ---
Author Organization [facility] Address [address] [place] [address] Phone Care Team Providers Care Mortgage Loan Processing Clerk Name Role Phone Truong Colon MD Primary Care Provider +1- [phone] Encounter Details Date Type Department Care Team (Late Contact Info) Description 07/02/2024 Documentation Only [facility] [address] [place] [address] [place] [address] [place] [address] Social History Tobacco Use Types Packs/Day [...] [facility] [address] [place] [address] Romero Jimenez MD [address] [place] [address] [place] [address] documented as of this encounter Visit Diagnoses Not on filedocumented in this encounter Care Teams Mortgage Loan Processing Clerk Relationship Specialty Start Date End Date Truong Colon MD [address] [place] [address] PCP - General Internal Medicine 03/06/23 documented as of this encounter
--- OUTSIDE RECORDS SUMMARY | 2024-12-19 13:25 | XMS_ITS | Clinical Summary ---
Author Organization [facility] Address [address] [place] [address] [place] [address] Phone Care Team Providers Care Log Check Scaler Name Role Phone Truong Colon MD Primary Care Provider +1- [phone] Allergies Active Allergy Reactions Criticality Noted Date [...] SEMANA 24 capsule 14 5 Active gabapentin (NEURONTIN) 300 MG capsule Take 1 capsule (300 mg total) by mouth 1 (one) time each day 30 capsule 3 5 Active Active Problems Problem Noted Date [...] Encounters Date Type Department Care Team Description 12/02/2024 1:40 PM EDT Office Visit [facility], [address] [place] [place] [address] Romero Jimenez MD Stage 3b chronic kidney disease (HCC) (Primary Dx) 11/28/2024 Orders Only [facility] [address] [place] [address] Harvey, Kylie Anemia in chronic kidney disease; Stage 3b chronic kidney disease (HCC); Iron deficiency anemia, not otherwise specified 10/31/2024 Orders Only [facility] [address] [place] [address] Harvey, Kylie Anemia in chronic kidney disease; Stage 3b chronic kidney disease (HCC); Iron deficiency anemia, not otherwise specified 10/03/2024 Orders Only [facility] [address] [place] [address] Harvey, Kylie Anemia in chronic kidney disease; Stage 3b chronic kidney disease (HCC); Iron deficiency anemia, not otherwise specified 09/25/2024 Office Communication [facility] [address] [place] [address] Deisi Wakefield, ROGELIO 09/25/2024 Documentation Only [facility] [address] [place] [id number] Deisi [place], RN from Last 3 Months Immunizations Immunization Administration [...] Visit [facility], [address] [place] [address] Romero Jimenez MD [address] [place] [address] Health Maintenance Due Date Last Done Comments Influenza Vaccine (#1) 2024 2, 05/10/2021, 01/29/2020, [...] (10/17/2023 5:28 PM EDT) Hemoglobin 11.9 Blood specimen (specimen) 10/17/2023 5:28 PM EDT Eligio Meza MD POINT OF CARE TEST ORDERABLES Fi nal Result from Last 3 Months or Most Recently Relevant to Health Maintenance Insurance [facility] Care Dual SNP ([id number]) [place] [id number] Care Teams Log Check Scaler Relationship Specialty Start Date End Date Truong Colon MD [address] [place] [address] PCP - General Internal Medicine 03/06/23
--- OUTSIDE RECORDS SUMMARY | 2024-12-19 13:25 | XMS_ITS | Encounter Summary ---
Author Organization [facility] [place] [address] Care Team Providers Care Geophysics Scientist Name Role Phone Truong Colon MD Primary Care Provider [phone] Encounter Details Date Type Department Care Team (Late Contact Info) Description 10/22/2024 Lab Requisition [facility] Main Lab [address] [facility] [place] [address] Ally Castañeda MD [address] [place] [address] Spinal stenosis, site unspecified; Chronic [...] 11/04/2025 10:30 AM EDT Office Visit [facility] Hematology Oncology [address] [place] [address] Jennifer Ca MD [address] [place] [address] [phone] (work) documented as of this encounter Procedures Procedure Name Priority Date/Time Associated Diagnosis Comments COMPLETE BLOOD COUNT Routine 10/23/2024 5:09 AM EDT Spinal stenosis, site unspecified Chronic kidney disease, unspecified BASIC METABOLIC PANEL Routine 10/23/2024 5:09 AM EDT Spinal stenosis, site unspecified Chronic kidney disease, unspecified documented in this encounter Results * (ABNORMAL) Basic metabolic panel (10/23/2024 5:09 AM EDT) Sodium 140 133 - 145 mmol/L LAB CHEMISTRY METHOD 10/23/2024 11:28 AM [facility] Potassium 4.6 3.5 - 5.5 mmol/L LAB CHEMISTRY METHOD 10/23/2024 11:28 AM [facility] Chloride 107 96 - 110 mmol/L LAB CHEMISTRY METHOD 10/23/2024 11:28 AM [facility] CO2 29 21 - 32 mmol/L LAB CHEMISTRY METHOD 10/23/2024 11:28 AM [facility] Anion Gap 4 3 - 11 LAB CHEMISTRY METHOD 10/23/2024 11:28 AM [facility] Glucose 65(L) 70 - 100 mg/dL LAB CHEMISTRY METHOD 10/23/2024 11:28 AM [facility] BUN 17 5 - 25 mg/dL LAB CHEMISTRY METHOD 10/23/2024 11:28 AM [facility] Creatinine 0.87 0.50 - 1.10 mg/dL LAB CHEMISTRY METHOD 10/23/2024 11:28 AM [facility] eGFR 67 >=60 mL/min/1. 73m2 LAB CHEMISTRY METHOD 10/23/2024 11:28 AM [facility] Comment:Calculation based on the Chronic Kidney Disease Epidemiology Collaboration (CKD-EPI) equation refit without adjustment for race. BUN/Creatinine Ratio 19.5 LAB CHEMISTRY METHOD 10/23/2024 11:28 AM EDT [facility] Calcium 8.7 8.5 - 10.5 mg/dL LAB CHEMISTRY METHOD 10/23/2024 11:28 AM [facility] Blood Venous blood specimen / Unknown Venipuncture / Unknown 10/23/2024 5:09 AM EDT 10/23/2024 10:13 AM EDT us Ally Castañeda MD LAB BLOOD ORDERABLES Final Resul t [facility] [address] [place] [address], * (ABNORMAL) Complete blood count (10/23/2024 5:09 AM EDT) WBC 4.8 4.8 - 10.8 K/mcL LAB HEMETOLOGY METHOD 10/23/2024 10:31 AM [facility] RBC 3.10(L) 3.80 - 4.80 M/mcL LAB HEMETOLOGY METHOD 10/23/2024 10:31 AM [facility] Hemoglobin 8.3(L) 11.5 - 16.0 g/dL LAB HEMETOLOGY METHOD 10/23/2024 10:31 AM [facility] Hematocrit 27.9(L) 35.0 - 47.0 % LAB HEMETOLOGY METHOD 10/23/2024 10:31 AM [facility] MCV 90.3 79.0 - 98.0 FL LAB HEMETOLOGY METHOD 10/23/2024 10:31 AM [facility] MCH 26.9(L) 27.0 - 32.0 pcg LAB HEMETOLOGY METHOD 10/23/2024 10:31 AM [facility] MCHC 29.7(L) 32.0 - 37.0 g/dL LAB HEMETOLOGY METHOD 10/23/2024 10:31 AM EDT [facility] RDW 13.7 11.0 - 15.0 % LAB HEMETOLOGY METHOD 10/23/2024 10:31 AM EDT [facility] Platelets 342 130 - 400 K/mcL LAB HEMETOLOGY METHOD 10/23/2024 10:31 AM EDT [facility] MPV 10.0 7.0 - 11.0 FL LAB HEMETOLOGY METHOD 10/23/2024 10:31 AM EDT [facility] NRBC 0.0 <1.0 % LAB HEMETOLOGY METHOD 10/23/2024 10:31 AM EDT [facility] NRBC Absolute 0.00 <0.10 K/mcL LAB HEMETOLOGY METHOD 10/23/2024 10:31 AM EDT [facility] Blood Venous blood specimen / Unknown Venipuncture / Unknown 10/23/2024 5:09 AM EDT 10/23/2024 10:13 AM EDT us Ally Castañeda MD LAB BLOOD ORDERABLES Final Resul t [facility] [address] [place] [address], documented in this encounter Visit Diagnoses Diagnosis Spinal stenosis, site unspecified Chronic kidney disease, unspecified documented in this encounter Care Teams Geophysics Scientist Relationship Specialty Start Date End Date Truong Colon MD [address] [place] [address] Dr [address] JAEL Christian PCP - General 05/19/22 documented as of this encounter
--- OUTSIDE RECORDS SUMMARY | 2024-12-19 13:25 | XMS_ITS | Encounter Summary ---
Author Organization [facility] Address [address] [place] [address] Phone Care Team Providers Care Heavy Equipment Rental Associate Name Role Phone Truong Colon MD Primary Care Provider +1- [phone] Encounter Details Date Type Department Care Team (Late Contact Info) Description 07/31/2024 Documentation Only [facility] [address] [place] [address] Kylie Gabriel [address] [place] [address] Social History Tobacco Use Types [...] [facility] [address] [place] [address] Romero Jimenez MD [address] [place] [address] [place] [address] documented as of this encounter Visit Diagnoses Not on filedocumented in this encounter Care Teams Heavy Equipment Rental Associate Relationship Specialty Start Date End Date Truong Colon MD [address] [place] [address] PCP - General Internal Medicine 03/06/23 documented as of this encounter
== END 2024-12-19 15:09 | disposition home or self-care (01) ==
LOC: HO.HMCH 13:03
PROVIDERS: PCP Internal Medicine
DX: M25.571 Pain in right ankle and joints of right foot (principal); M25.471 Effusion, right ankle; M79.89 Other specified soft tissue disorders

== ENCOUNTER → 2024-12-19 13:02 | Outpatient (BNVA) | payer OTHER, SELFPAY | PROVIDERS: PCP Internal Medicine | DX: M25.571 Pain in right ankle and joints of right foot (principal); M79.604 Pain in right leg; M25.471 Effusion, right ankle; M79.89 Other specified soft tissue disorders | CPT/HCPCS: 96127; 99212 ==

== ENCOUNTER 2024-12-24 20:19 | Emergency (ER) | payer OTHER, SELFPAY ==
--- OUTSIDE RECORDS SUMMARY | 2023-03-07 08:36 | XMS_ITS | Continuity of Care Document ---
Author Organization [facility] Address [address] [place] [address] Phone Care Team Providers Care Damage Assessor Name Role Phone Amanuel DURAN FACS RVT [...] Providers Copied on Encounter [facility], [address] 1000Jose [place], [id number], [place] tel:[phone] [place] No Information 3 Amanuel DURAN FACS T SIMÓN Pinto. [address] [facility], [address], [place], [address], [place]. [phone] Referring Provider: Truong Colon MD, [address] [facility] [address], [place], [address]. tel:[phone] Office/Outpt E&M Established 25 Mins [facility], [address] [place] [address] Dr [address]Jose [place], [id number], [place] tel:[phone] [place] Body mass index (BMI) 34.0-34.9, adultVenous insufficiency (chronic) (peripheral) 3 Amanuel DURAN FACS Yoni Pinto. [address] [place] [address], [place] [address], [place], [address], [place]. [phone] Referring Provider: Truong Colon MD, [address] [facility] [address], [place], [address]. tel:[phone] 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 [address] [place] [address], [address], [place], [address], [place]. [phone] Referring Provider: Truong Colon MD, [address] [facility] [address], [place], [address]. tel:[phone] 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 [facility] [facility], [address], [place], [address], [place]. tel:[phone] Referring Provider: Truong Colon MD, [address] [facility] [address], [place], [address]. tel:[phone] [place] [facility], [address] [place] [address] [address] 1000Jose [place], [id number], [place] tel:[phone] [place] Encntr for f/u exam aft trtmt for cond oth than malig neoplmVenous insufficiency (chronic) (peripheral) 3 Amanuel DURAN FACS RVT SIMÓN Pinto. [address] [facility], [facility] [address], [place], [address], [place]. [phone] Referring Provider: Truong Colon MD, [address] [place] [address] Dr [address], [place], [address]. tel:[phone] [place] 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 [address] [facility], [facility] [address], [place], [address], [place]. [phone] Referring Provider: Truong Colon MD, [address] [place] [address] Dr [address], [place], [address]. tel:[phone] [place] 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 [address] [facility], [facility] [address], [place], [address], [place]. tel:[phone] Referring Provider: Truong Colon MD, [address] [facility] [address], [place], [address]. tel:[phone] Family History Family Member Type Diagnosis Age At Onset No Information Payers Payer name Insurance type Covered alliance party ID Josefina haynes(s) [facility] [id number] Social History Type Description Quantity Date Captured [...]
--- OUTSIDE RECORDS SUMMARY | 2024-10-30 10:45 | XMS_ITS ---
Author Organization [facility] Address [address] [place] [address] Care Team Providers Care Ethylene Plant Operator Name Role Phone Isaiah DURAN, Truong Primary Care Provider UnaBoby Bermudez Unavailable [phone] Encounters Encounter Location Date Provider Diagnosis [facility] [address] [address] 10/30/2024 Boby Chapman Plan Of Treatment Next Appt Details Provider Name:Boby Chapman , 03/30/2025 01:30:00 PM, [address] [facility], [place] [address], [place], [address], Progress Notes * Tommie BLANCASOB:[birth year] (79 yo F)Acc No.[id number]:10/30/2024 Progress Note Patient: Jacinda NUNEZ Provider: Alxe Chapman DPM :1945 A ge:79 Y S ex:Female Date:10/30/2024 Address:[address] [place] [address], [place], [id number] Pcp:Truong Colon MD Subjective: * Chief Complaints: [...] 0 10/30/2024 Generated for Yovanny toussaint/Daniel on: 0 12/24/2024 05:49 PM EDT
--- NOTE | 2024-12-24 20:28 | ECG_ITS ---
Test Reason : chest pain Blood Pressure : */* mmHG Vent. Rate : 49 BPM Atrial Rate : 49 BPM P-R Int : 178 ms QRS Dur : 128 ms QT Int : 488 ms P-R-T Axes : * -15 58 degrees QTcB Int : 440 ms Sinus bradycardia Non-specific intra-ventricular conduction block Minimal voltage criteria for LVH, may be normal variant ( [place] product ) Nonspecific T wave abnormality Abnormal ECG When compared with ECG of 17-Mar-2024 11:07, No significant change was found Referred By: Generic ED Physician Electronically Signed By: Lucien Olivares
[2024-12-24 20:31] VITALS: BP 184/67; PULSE 53; O2SAT 100
[2024-12-24 20:34] VITALS: BP 166/58; PULSE 50; RESP 13; TEMP 37.1; O2SAT 98; BMI 36.9
[2024-12-24 20:44] VITALS: BP 166/58; PULSE 49; RESP 14; TEMP 37.1; O2SAT 98
--- OUTSIDE RECORDS SUMMARY | 2024-12-24 20:51 | XMS_ITS | Encounter Summary ---
Author Organization [facility] Address [address] [place] [address] Phone Care Team Providers Care Maintenance Construction Helper Name Role Phone Truong Colon MD Primary Care Provider +1- [phone] Encounter Details Date Type Department Care Team (Late Contact Info) Description 04/10/2024 Documentation Only [facility] [address] [place] [address] Kylie Gabriel [address] [place] [address] Social History Tobacco Use Types [...] [facility] [address] [place] [address] Romero Jimenez MD [address] [place] [address] [place] [address] documented as of this encounter Visit Diagnoses Not on filedocumented in this encounter Care Teams Maintenance Construction Helper Relationship Specialty Start Date End Date Truong Colon MD [address] [place] [address] PCP - General Internal Medicine 03/06/23 documented as of this encounter
--- OUTSIDE RECORDS SUMMARY | 2024-12-24 20:51 | XMS_ITS | Encounter Summary ---
Author Organization [facility] Address [address] [place] [address] Phone Care Team Providers Care Electric Blanket Wirer Name Role Phone Truong Colon MD Primary Care Provider +1- [phone] Encounter Details Date Type Department Care Team (Late Contact Info) Description 05/04/2022 Documentation Only [facility] [address] [address] Kylie Gabriel [address] [place] [address] Social History Tobacco Use Types [...] [facility] [address] [place] [address] Romero Jimenez MD [address] [place] [address] [place] [address] documented as of this encounter Visit Diagnoses Not on filedocumented in this encounter Care Teams Electric Blanket Wirer Relationship Specialty Start Date End Date Truong Colon MD [address] [place] [address] PCP - General Internal Medicine 03/06/23 documented as of this encounter
--- OUTSIDE RECORDS SUMMARY | 2024-12-24 20:51 | XMS_ITS | Encounter Summary ---
Author Organization [facility] Address [address] [place] [address] Phone Care Team Providers Care Side Puller Name Role Phone Truong Colon MD Primary Care Provider +1- [phone] Encounter Details Date Type Department Care Team (Late Contact Info) Description 08/12/2024 Documentation Only [facility] [address] [place] [address] [place] [address] [place] [address] Social History Tobacco Use Types Packs/Day [...] [facility] [address] [place] [address] Romero Jimenez MD [address] [place] [address] [place] [address] documented as of this encounter Visit Diagnoses Not on filedocumented in this encounter Care Teams Side Puller Relationship Specialty Start Date End Date Truong Colon MD [address] [place] [address] PCP - General Internal Medicine 03/06/23 documented as of this encounter
--- OUTSIDE RECORDS SUMMARY | 2024-12-24 20:51 | XMS_ITS | Encounter Summary ---
Author Organization [facility] Address [address] [place] [address] Phone Care Team Providers Care Solution Mixer Name Role Phone Truong Colon MD Primary Care Provider +1- [phone] Encounter Details Date Type Department Care Team (Late Contact Info) Description 08/08/2024 Orders Only [facility] [address] [place] [address] Kylie Gabriel [address] [place] [address] Anemia in chronic kidney disease; [...] [facility] [address] [place] [address] Romero Jimenez MD [address] [facility] [facility] [place] [address] documented as of this encounter Visit Diagnoses Diagnosis Anemia in chronic kidney disease Stage 3b chronic kidney disease (HCC) Iron deficiency anemia, not otherwise specified documented in this encounter Care Teams Solution Mixer Relationship Specialty Start Date End Date Trunog Colon MD [address] [place] [address] PCP - General Internal Medicine 03/06/23 documented as of this encounter
--- OUTSIDE RECORDS SUMMARY | 2024-12-24 20:51 | XMS_ITS | Encounter Summary ---
Author Organization [facility] [place], Address [address] [place] [address] Phone Care Team Providers Care .Net Architect Name Role Phone Truong Colon MD Primary Care Provider +1- [phone] Encounter Details Date Type Department Care Team (Late Contact Info) Description 01/23/2024 Documentation Only [facility] [place], - [address] [place] [address] Jasmin Dumont [address] [place] [address] Social History Tobacco Use Types Packs/Day [...] Visit [facility] [place], [address] [place] [address] Romero Jimenez MD [address] [place] [address] documented as of this encounter Visit Diagnoses Not on filedocumented in this encounter Care Teams .Net Architect Relationship Specialty Start Date End Date Truong Colon MD [address] [place] [address] PCP - General Internal Medicine 03/06/23 documented as of this encounter
--- OUTSIDE RECORDS SUMMARY | 2024-12-24 20:51 | XMS_ITS | Encounter Summary ---
Author Organization [facility] Address [address] [place] [address] Phone Care Team Providers Care Smasher Name Role Phone Truong Colon MD Primary Care Provider +1- [phone] Encounter Details Date Type Department Care Team (Late Contact Info) Description 10/26/2023 Documentation Only [facility] [address] [place] [address] Kylie Gabriel [address] [place] [address] Social History Tobacco Use Types [...] [facility] [address] [place] [address] Romero Jimenez MD [address] [place] [address] [place] [address] documented as of this encounter Visit Diagnoses Not on filedocumented in this encounter Care Teams Smasher Relationship Specialty Start Date End Date Truong Colon MD [address] [place] [address] PCP - General Internal Medicine 03/06/23 documented as of this encounter
--- OUTSIDE RECORDS SUMMARY | 2024-12-24 20:51 | XMS_ITS | Clinical Summary ---
Author Organization [facility] Address [address] [place] [address] Phone Care Team Providers Care Social Media Content Specialist Name Role Phone Truong Colon MD Primary Care Provider [phone] Allergies Active Allergy Reactions Criticality Noted Date [...] left breast in female, estrogen receptor positive ([facility] V24, [facility] V28) 07/03/2023 Iron deficiency anemia 05/18/2022 Acquired hypothyroidism 03/28/2017 Gastroesophageal reflux disease without esophagi tis 03/28/2017 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 Encounters Date Type Department Care Team Description 11/06/2024 Lab Requisition [facility] Lab [address] [place] [phone] Ally Castañeda MD Spinal stenosis, site unspecified; Chronic kidney disease, unspecified 11/04/2024 10:45 AM EDT Office Visit [facility] Hematology Oncology [address] [place] [phone] Jennifer Ca MD Malignant neoplasm of upper-outer quadrant of left breast in female, estrogen receptor positive ([facility] V24, [facility] V28) (Primary Dx) 10/30/2024 Lab Requisition [facility] Lab [address] [place] [phone] Ally Castañeda MD Spinal stenosis, site unspecified; Chronic kidney disease, unspecified 10/22/2024 Lab Requisition [facility] Lab [address] [place] [phone] Ally Castañeda MD Spinal stenosis, site unspecified; Chronic kidney disease, unspecified 10/22/2024 Lab Requisition [facility] Lab [address] [place] [phone] Ally Castañeda MD Essential (primary) hypertension; Anemia, unspecified 10/16/2024 Lab Requisition [facility] Lab [address] [place] [address] Ally Castañeda MD Spinal stenosis, site unspecified; Chronic kidney disease, unspecified 10/10/2024 Lab Requisition [facility] [address] [facility] [place] [address] Ally Castañeda MD Malignant neoplasm of unspecified site of unspecified female breast ([facility] V24, [facility] V28); Hypothyroidism, unspecified; Vitamin D deficiency, unspecified; Vitamin B12 deficiency anemia, unspecified; Spinal stenosis, site unspecified; Chronic kidney disease, stage 3 unspecified ([facility] V24, [facility] V28) from Last 3 Months Surgical History Surgery Date Site/Laterality Comments LUMBAR DISC SURGERY PROCEDURE:LUMBAR DISC SURGERY Medical History Medical History Date Comments Malignant neoplasm of upper- outer quadrant of left female breast ([facility] V24, [facility] V28) DX:Malignant neoplasm of upp er-outer [...] 11/04/2025 10:30 AM EDT Office Visit [facility] Hematology Oncology [address] [place] [address] Jennifer Ca MD [address] [place] [address] Health Maintenance Due Date Last [...] of unspecified site of unspecified female breast ([facility] V24, [facility] V28) Hypothyroidism, unspecified Vitamin D deficiency, [...] K/mcL LAB HEMETOLOGY METHOD 10/31/2024 10:38 AM [facility] RBC 3.60(L) 3.80 - 4.80 M/mcL LAB HEMETOLOGY METHOD 10/31/2024 10:38 AM [facility] Hemoglobin 9.9(L) 11.5 - 16.0 g/dL LAB HEMETOLOGY METHOD 10/31/2024 10:38 AM [facility] Hematocrit 32.8(L) 35.0 - 47.0 % LAB HEMETOLOGY METHOD 10/31/2024 10:38 AM [facility] MCV 90.6 79.0 - 98.0 FL LAB HEMETOLOGY METHOD 10/31/2024 10:38 AM [facility] MCH 27.3 27.0 - 32.0 pcg LAB HEMETOLOGY METHOD 10/31/2024 10:38 AM [facility] MCHC 30.2(L) 32.0 - 37.0 g/dL LAB HEMETOLOGY METHOD 10/31/2024 10:38 AM [facility] RDW 15.1(H) 11.0 - 15.0 % LAB HEMETOLOGY METHOD 10/31/2024 10:38 AM [facility] Platelets 239 130 - 400 K/mcL LAB HEMETOLOGY METHOD 10/31/2024 10:38 AM EDT [facility] MPV 10.6 7.0 - 11.0 FL LAB HEMETOLOGY METHOD 10/31/2024 10:38 AM EDT [facility] NRBC 0.0 <1.0 % LAB HEMETOLOGY METHOD 10/31/2024 10:38 AM EDT [facility] NRBC Absolute 0.00 <0.10 K/mcL LAB HEMETOLOGY METHOD 10/31/2024 10:38 AM EDT [facility] Blood Venous blood specimen / Unknown Venipuncture / Unknown 10/31/2024 7:20 AM EDT 10/31/2024 10:27 AM EDT us Ally Castañeda MD LAB BLOOD ORDERABLES Final Resul t [facility] [address] [place] [address], * Basic metabolic panel (10/31/2024 7:20 AM EDT) Only the most recent of4 resultswithin the time period is included. Sodium 142 133 - 145 mmol/L LAB CHEMISTRY METHOD 10/31/2024 11:08 AM [facility] Potassium 4.7 3.5 - 5.5 mmol/L LAB CHEMISTRY METHOD 10/31/2024 11:08 AM [facility] Chloride 109 96 - 110 mmol/L LAB CHEMISTRY METHOD 10/31/2024 11:08 AM [facility] CO2 30 21 - 32 mmol/L LAB CHEMISTRY METHOD 10/31/2024 11:08 AM [facility] Anion Gap 3 3 - 11 LAB CHEMISTRY METHOD 10/31/2024 11:08 AM [facility] Glucose 78 70 - 100 mg/dL LAB CHEMISTRY METHOD 10/31/2024 11:08 AM EDT [facility] BUN 11 5 - 25 mg/dL LAB CHEMISTRY METHOD 10/31/2024 11:08 AM EDT [facility] Creatinine 0.92 0.50 - 1.10 mg/dL LAB CHEMISTR[facility] eGFR 63 >=60 mL/min/1. 73m2 LAB CHEMISTRY METHOD 10/31/2024 11:08 AM EDT [facility] Comment:Calculation based on the Chronic Kidney Disease Epidemiology Collaboration (CKD-EPI) equation refit without adjustment for race. BUN/Creatinine Ratio 12.0 LAB CHEMISTRY METHOD 10/31/2024 11:08 AM EDT [facility] Calcium 8.9 8.5 - 10.5 mg/dL LAB CHEMISTRY METHOD [facility]24 [facility] Blood Venous blood specimen / Unknown Venipuncture / Unknown 10/31/2024 7:20 AM EDT 10/31/2024 10:27 AM EDT us Ally Castañeda MD LAB BLOOD ORDERABLES Final Resul t Performing Organization Address City/[facility]/ZIP Co de Phone Number [facility] [address] [place] [address], * (ABNORMAL) Ferritin (10/22/2024 5:26 AM EDT) Ferritin 283(H) 8 - 252 ng/mL LAB CHEMISTRY METHOD 10/22/2024 9:41 AM EDT [facility] Blood Venous blood specimen / Unknown Venipuncture / Unknown 10/22/2024 5:26 AM EDT 10/22/2024 8:36 AM EDT us Ally Castañeda MD LAB BLOOD ORDERABLES Final Resul t [facility] [address] [place] [address], [place] [phone] * Thyroid stimulating hormone with reflex to free t4 and free t3 (10/10/2024 5:37 AM EDT) [facility] TSH 2.96 0.40 - 4.00 mcIU/mL LAB CHEMISTRY METHOD 10/10/2024 1:01 PM EDT [facility] Blood Venous blood specimen / Unknown Venipuncture / Unknown 10/10/2024 5:37 AM EDT 10/10/2024 9:30 AM EDT us Ally Castañeda MD LAB BLOOD ORDERABLES Final Resul t Performing Organization Address City/[facility]/ZIP Co de Phone Number [facility] [address] [place] [address], [place] [phone] * Vitamin D 25 hydroxy (10/10/2024 5:37 AM EDT) [facility] Vit D, 25-Hydroxy 52.0 30.0 - 80.0 ng/mL LAB CHEMISTRY METHOD 10/10/2024 1:00 PM EDT [facility] Blood Venous blood specimen / Unknown Venipuncture / Unknown 10/10/2024 5:37 AM EDT 10/10/2024 9:30 AM EDT us Ally Castañeda MD LAB BLOOD ORDERABLES Final Resul t [facility] [address] [place] [address], [place] [phone] * Folate (10/10/2024 5:37 AM EDT) [facility] Folate 12.9 2.8 - 17.0 ng/ml LAB CHEMISTRY METHOD 10/10/2024 11:35 AM EDT [facility] Blood Venous blood specimen / Unknown Venipuncture / Unknown 10/10/2024 5:37 AM EDT 10/10/2024 9:30 AM EDT us Ally Castañeda MD LAB BLOOD ORDERABLES Final Resul t Performing Organization Address City/[facility]/ZIP Co de Phone Number [facility] [address] [place] [address], [place] [phone] * Vitamin B12 (10/10/2024 5:37 AM EDT) [facility] Vitamin B-12 371 250 - 900 pcg/mL LAB CHEMISTRY METHOD 10/10/2024 11:35 AM EDT [facility] Blood Venous blood specimen / Unknown Venipuncture / Unknown 10/10/2024 5:37 AM EDT 10/10/2024 9:30 AM EDT us Ally Castañeda MD LAB BLOOD ORDERABLES Final Resul t Performing Organization Address City/[facility]/ZIP Co de Phone Number [facility] [address] [place] [address], [place] [phone] * (ABNORMAL) Comprehensive metabolic panel (10/10/2024 5:37 AM EDT) [facility] Sodium 130(L) 133 - 145 mmol/L LAB CHEMISTRY METHOD 10/10/2024 11:35 AM EDT [facility] Potassium 4.9 3.5 - 5.5 mmol/L LAB CHEMISTRY METHOD 10/10/2024 11:35 AM EDT [facility] Chloride 97 96 - 110 mmol/L LAB CHEMISTRY METHOD 10/10/2024 11:35 AM EDT [facility] CO2 28 21 - 32 mmol/L LAB CHEMISTRY METHOD 10/10/2024 11:35 AM EDT [facility] Anion Gap 5 3 - 11 LAB CHEMISTRY METHOD 10/10/2024 11:35 AM EDT [facility] Glucose 82 70 - 100 mg/dL LAB CHEMISTRY METHOD 10/10/2024 11:35 AM [facility] BUN 37(H) 5 - 25 mg/dL LAB CHEMISTRY METHOD 10/10/2024 11:35 AM [facility] Creatinine 1.16(H) 0.50 - 1.10 mg/dL LAB CHEMISTRY METHOD 10/10/2024 11:35 AM [facility] eGFR 47(L) >=60 mL/min/1. 73m2 LAB CHEMISTRY METHOD 10/10/2024 11:35 AM [facility] Comment:Calculation based on the Chronic Kidney Disease Epidemiology Collaboration (CKD-EPI) equation refit without adjustment for race. BUN/Creatinine Ratio 31.9 LAB CHEMISTRY METHOD 10/10/2024 11:35 AM [facility] Calcium 8.9 8.5 - 10.5 mg/dL LAB CHEMISTRY METHOD 10/10/2024 11:35 AM [facility] AST (SGOT) 42 10 - 42 unit/L LAB CHEMISTRY METHOD 10/10/2024 11:35 AM [facility] ALT (SGPT) 48 10 - 60 unit/L LAB CHEMISTRY METHOD 10/10/2024 11:35 AM [facility] Alkaline Phosphatase 98 42 - 121 unit/L LAB CHEMISTRY METHOD 10/10/2024 11:35 AM [facility] Total Protein 6.3 6.0 - 8.0 g/dL LAB CHEMISTRY METHOD 10/10/2024 11:35 AM [facility] Albumin 2.3(L) 3.2 - 5.0 g/dL LAB CHEMISTRY METHOD 10/10/2024 11:35 AM [facility] Total Bilirubin 0.4 0.0 - 1.4 mg/dL LAB CHEMISTRY METHOD 10/10/2024 11:35 AM [facility] Blood Venous blood specimen / Unknown Venipuncture / Unknown 10/10/2024 5:37 AM EDT 10/10/2024 9:30 AM EDT us Ally Castañeda MD LAB BLOOD ORDERABLES Final Resul t [facility] [address] [place] [address], * DXA BONE DENSITY STUDY 1+ SITS AXIAL SKEL (10/07/2021 10:23 AM EDT) Anatomical Region Laterality Modality Bone Densitometr y 05/10/2021 11:5 1 AM EST Narrative 10/07/2021 4:32 PM EDT Clinical history: other osteoporosis Scans of the lumbar spine and hips were performed on a Help[employer] fan beam bone densitometer. Bone mineral density [...] spine and hips were performed on a Help/Systems/[employer] beam bone densitometer. Bone mineral density [...] Group ID:[id number] Type:Not on file Address: [address] [place] [address] Care Teams Social Media Content Specialist Relationship Specialty Start Date End Date Truong Colon MD [address] [place] [address] Dr [address] [place] PCP - General 05/19/22
--- OUTSIDE RECORDS SUMMARY | 2024-12-24 20:51 | XMS_ITS | Encounter Summary ---
Author Organization [facility] Address [address] [place] [address] Phone Care Team Providers Care Telepathist Name Role Phone Truong Colon MD Primary Care Provider +1- [phone] Encounter Details Date Type Department Care Team (Late Contact Info) Description 05/27/2024 Documentation Only [facility] [address] [place] [address] Kylie Gabriel [address] [place] [address] Social History Tobacco Use Types [...] [facility] [address] [place] [address] Romero Jimenez MD [address] [place] [address] [place] [address] documented as of this encounter Visit Diagnoses Not on filedocumented in this encounter Care Teams Telepathist Relationship Specialty Start Date End Date Truong Colon MD [address] [place] [address] PCP - General Internal Medicine 03/06/23 documented as of this encounter
--- OUTSIDE RECORDS SUMMARY | 2024-12-24 20:51 | XMS_ITS | Encounter Summary ---
Author Organization [facility] Address [address] [place] [address] Phone Care Team Providers Care Clinical Neuropsychologist Name Role Phone Truong Colon MD Primary Care Provider +1- [phone] Encounter Details Date Type Department Care Team (Late Contact Info) Description 01/31/2024 Documentation Only [facility] [address] [place] [address] Kylie Gabriel [address] [place] [address] Social History Tobacco Use Types [...] [facility] [address] [place] [address] Romero Jimenez MD [address] [place] [address] [place] [address] documented as of this encounter Visit Diagnoses Not on filedocumented in this encounter Care Teams Clinical Neuropsychologist Relationship Specialty Start Date End Date Truong Colon MD [address] [place] [address] PCP - General Internal Medicine 03/06/23 documented as of this encounter
--- OUTSIDE RECORDS SUMMARY | 2024-12-24 20:51 | XMS_ITS | Clinical Summary ---
Author Organization [facility] Address [address] [place] [address] Care Team Providers Care Resourcing Advisor Name Role Phone Truong Colon MD Primary Care Provider +1- [phone] Allergies Active Allergy Reactions Criticality Noted Date [...] age to complete this topic Care Teams Resourcing Advisor Relationship Specialty Start Date End Date Truong Colon MD [address] [place] [address] PCP - General Internal Medicine 05/19/22
--- OUTSIDE RECORDS SUMMARY | 2024-12-24 20:51 | XMS_ITS | Patient Health Record ---
Author Organization [facility] camilla Exeland Address [address] [place] [address] Care Team Providers Care Sister Superior Name Role Phone Isaiah DURAN, [place] Primary Care Provider Boby Laguerre Unavailable [phone] Allergies Allergen (clinical drug ingredient) Drug/Non Drug Allergy documented on EMR Reaction Allergy Type Onset Date Status sennosides, LONGTERM Senna rash and machado Drug Allergy Active Penicillin rash Drug Allergy Active Reason For Referral No Information Medications Medication SIG (Take, Route, Frequency, Duration) Notes Start Date End Date Status traMADol HCl Not-Cruz ing [facility] Gentle Laxative Not-Taking Losartan Potassium N ot-Taking Tamoxifen Citrate No t-Taking [facility] Calcium Not-Taki ng Levothyroxine Sodium Not-Taking Mapap Not-Taking Aspirin 81 MG 1 tablet Orally Once a day Not-Taking Folic Acid Not-Takin g zzzCompression Stockings 20-30mm Hg . . .; Duration: . Not-Takin g Triamcinolone Acetonide Not-Taking Omeprazole 20 MG 1 tablet Orally Once a day Active Ammonium Lactate 12 % 1 application to affected area Externally Twice a day to dry areas of skin on feet except between toes; Duration: 30 days 01/24/2024 Active Docusate Sodium Acti ve Silver sulfADIAZINE Not-Taking hydroCHLOROthiazide Active Sulfamethoxazole-TMP DS Not-Taking Calcitriol 0.5 MCG 1 capsule Orally Once a day Active ProAir HFA Not-Takin g Carvedilol Active Propranolol HCl ER N ot-Taking amLODIPine Besylate Active Lidocaine Not-Taking Bisacodyl Active Lisinopril Not-Takin g Flovent HFA Not-Taki ng Orthopedic Extra Depth Shoes With Custom Heat Molded Multidensity Innersoles 1 Pair shoes with 3 Pair custom heat molded innersoles Wear Daily; Duration: 365 days Active Fluticasone Propionate Not-Taking Azithromycin Not-Cruz ing Ibuprofen Not-Taking Immunizations Vaccine Route Administration Date Status Comme nts Influenza Unknown 03/20/2018 Administered Influenza Unknown 03/20/2019 Administered Influenza Unknown 12/15/2024 Refused COVID-19 Moderna Vaccine Unknown 07/20/2020 Administere d COVID-19 Moderna Vaccine Unknown 08/17/2020 Administere d Social History Tobacco Use: Social History Observation [...] Additional Findings: Tobacco non-user Current no nsmoker AUDIT-C (Standard) Question Answer Notes Did you have a drink containing alcohol in the p ast year? No Points 0 Interpretation Negative Problems Problem Type SNOMED Code ICD Code Onset Dates Problem Status W/U Status Risk Notes Problem Acquired hammer toe of right foot (0649428051569530 ) Other hammer toe(s) (acquired), right foot (M20.41) Active confirmed Response to treatment, Improvemen t Problem Acquired hammer toe of left foot (8797739614119079 ) Other hammer toe(s) (acquired), left foot (M20.42) Active confirmed Response to treatment, Improvemen t Problem Bilateral atherosclerosis of arteries of lower limbs (disorder) (8203719226007411 7) Atherosclerosis of [place] artery of both lower extremities, with unspecified presence of clinical manifestation (I70.203) Active confirmed Vital Signs Blood pressure diastolic 64 mm Hg 12/15/2024 Height 5 ft 9in in 12/15/2024 Blood pressure systolic 127 mm Hg 12/15/2024 Weight 230 lbs 12/15/2024 BMI 33.96 kg/m2 12/15/2024 Procedures Procedure Date Ordered Date Performed Result Body Sit e 37306-FMSRFAO NAIL, 6 OR MORE 01/24/2024 N/A 07227-Ycbw Destruction, 1-14 01/24/2024 N/A 07029-ERVH SKIN LESIONS, OVER 4 01/24/2024 N/A 05178-LPAANFW NAIL, 6 OR MORE 05/05/2024 N/A 12555-TZLM SKIN LESIONS, OVER 4 05/05/2024 N/A 64425-RTGVXNN NAIL, 6 OR MORE 07/31/2024 N/A 44387-EXSC SKIN LESIONS, OVER 4 07/31/2024 N/A 96549-OSLRZTW NAIL, 6 OR MORE 12/15/2024 N/A 93702-DKLT SKIN LESIONS, OVER 4 12/15/2024 N/A Encounters Encounter Location Date Provider Diagnosis [address] [address] 01/24/2024 Boby Chapman Atherosclerosis of [place] artery of both lower extremities, with unspecified presence of clinical manifestation I70.203 ; Plantar wart B07.0 ; Tinea unguium B35.1 ; Pain in right toe(s) M79.674 ; Pain in left toe(s) M79.675 ; Left foot pain M79.672 and Xerosis of skin L85.[address] [address] 05/05/2024 Boby Chapman Atherosclerosis of [place] artery of both lower extremities, with unspecified presence of clinical manifestation I70.203 ; Tinea unguium B35.1 ; Pain in right toe(s) M79.674 ; Pain in left toe(s) M79.675 ; Other hammer toe(s) (acquired), right foot M20.41 and Other hammer toe(s) (acquired), left foot M20.[address] [address] 07/31/2024 Boby Chapman Atherosclerosis of [place] artery of both lower extremities, with unspecified presence of clinical manifestation I70.203 ; Tinea unguium B35.1 ; Pain in right toe(s) M79.674 ; Pain in left toe(s) M79.675 ; Other hammer toe(s) (acquired), right foot M20.41 and Other hammer toe(s) (acquired), left foot M20.[address] [place] [address] 12/15/2024 Boby Chapman Atherosclerosis of [place] artery of both lower extremities, with unspecified presence of clinical manifestation I70.203 ; Tinea unguium B35.1 ; Pain in right toe(s) M79.674 and Pain in left toe(s) M79.675 [facility] [address] [place] [address] 10/30/2024 Boby Chapman Assessments Encounter Date Diagnosis (ICD Code) Assessment Notes Treatment Notes Treatment Clinical Notes Section Notes 01/24/2024 Plantar wart (ICD-10 - B07.0) 01/24/[address] [place] artery of both lower extremities, with unspecified presence of clinical manifestation (ICD-10 - I70.203) 05/05/2024 Tinea unguium (ICD-10 - B35.1) 05/05/[address] [place] artery of both lower extremities, with unspecified presence of clinical manifestation (ICD-10 - I70.203) 07/31/2024 Tinea unguium (ICD-10 - B35.1) 07/31/[address] [place] artery of both lower extremities, with unspecified presence of clinical manifestation (ICD-10 - I70.203) 12/15/2024 Tinea unguium (ICD-10 - B35.1) 12/15/[address] [place] artery of both lower extremities, with unspecified presence of clinical manifestation (ICD-10 - I70.203) 12/15/2024 Pain in right toe(s) (ICD-10 - M79.674) 05/05/2024 Pain in right toe(s) (ICD-10 - M79.674) 07/31/2024 Pain in right toe(s) (ICD-10 - M79.674) 01/24/2024 Tinea unguium (ICD-10 - B35.1) 01/24/2024 Pain in right toe(s) (ICD-10 - M79.674) 05/05/2024 Pain in left toe(s) (ICD-10 - M79.675) 07/31/2024 Pain in left toe(s) (ICD-10 - M79.675) 12/15/2024 Pain in left toe(s) (ICD-10 - M79.675) 07/31/2024 Other hammer toe(s) (acquired), right foot (ICD-10 - M20.41) 05/05/2024 Other hammer toe(s) (acquired), right foot (ICD-10 - M20.41) 01/24/2024 Pain in left toe(s) (ICD-10 - M79.675) 05/05/2024 Other hammer toe(s) (acquired), left foot (ICD-10 - M20.42) 01/24/2024 Left foot pain (ICD-10 - M79.672) 07/31/2024 Other hammer toe(s) (acquired), left foot (ICD-10 - M20.42) 01/24/2024 Xerosis of skin (ICD-10 - L85.3) Plan Of Treatment Pending Test Test Name Order Date 59675-DGWVVLN NAIL, 6 OR MORE 03/21/2017 23713-XMWQYGW NAIL, 6 OR MORE 05/30/2017 36937-FHDEVFE NAIL, 6 OR MORE 08/06/2017 64247-ONOLJBZ NAIL, 6 OR MORE 10/25/2017 81064-MWBOOFH NAIL, 6 OR MORE 03/20/2018 28652-GWLQAKY NAIL, 6 OR MORE 06/13/2018 23160-JVQHZYH NAIL, 6 OR MORE 01/07/2018 15480-NBAVBWX NAIL, 6 OR MORE 08/14/2018 91099-GWTHCFF NAIL, 6 OR MORE 10/17/2018 84712-PPHQQUS NAIL, 6 OR MORE 01/16/2019 53649-UASPJVZ NAIL, 6 OR MORE 04/03/2019 12831-RUOWSWJ NAIL, 6 OR MORE 06/16/2019 75280-STSOBAY NAIL, 6 OR MORE 08/27/2019 15373-TOPCPTY NAIL, 6 OR MORE 12/18/2019 93197-SUTUWZX NAIL, 6 OR MORE 05/06/2020 69996-MEDAPEV NAIL, 6 OR MORE 07/15/2020 82050-GJDGVTE NAIL, 6 OR MORE 09/29/2020 78342-JSUEXNC NAIL, 6 OR MORE 12/02/2020 45940-FPNESUK NAIL, 6 OR MORE 02/17/2021 86776-MZBBRAY NAIL, 6 OR MORE 06/16/2021 69898-CYXJUAP NAIL, 6 OR MORE 08/29/2021 56184-UFEXMDU NAIL, 6 OR MORE 11/10/2021 02294-CZTQWTZ NAIL, 6 OR MORE 01/19/2022 09046-KITKJID NAIL, 6 OR MORE 04/05/2022 99658-TBPMWUB NAIL, 6 OR MORE 06/15/2022 44847-PENMSEI NAIL, 6 OR MORE 08/24/2022 32242-QLIXFNC NAIL, 6 OR MORE 11/16/2022 48954-CJAETPB NAIL, 6 OR MORE 01/25/2023 13514-LGAUNIK NAIL, 6 OR MORE 04/11/2023 01963-LXQYEFC NAIL, 6 OR MORE 06/27/2023 17052-LRXIREX NAIL, 6 OR MORE 08/30/2023 97016-OJFVFIK NAIL, 6 OR MORE 11/08/2023 42189-DIPVJAH NAIL, 6 OR MORE 01/24/2024 05619-XCFDPQI NAIL, 6 OR MORE 05/05/2024 74196-FSTOHHI NAIL, 6 OR MORE 07/31/2024 70881-EZBANOA NAIL, 6 OR MORE 12/15/2024 07336-NLGQPAV NAIL, 1-5 11/01/2016 01851-VTHKCRX NAIL, -5 01/03/2017 51312-SNDXQIO NAIL, 1-5 11/15/2015 79124-VVRKIBO NAIL, 1-5 01/24/2016 59060-HVWZMHR NAIL, 1-5 04/05/2016 69011-MIRDADB NAIL, -5 06/14/2016 96196-GBFANFO NAIL, -5 08/23/2016 71993-Ntlt Destruction, -14 11/01/2016 76927-Kbzu Destruction, -14 01/03/2017 96677-Eomp Destruction, -14 03/21/2017 52086-Dunh Destruction, -14 05/30/2017 84303-Fzey Destruction, -14 08/06/2017 25177-Acsj Destruction, -14 05/06/2020 73514-Maty Destruction, -14 12/18/2019 43738-Iess Destruction, 05-0608/27/2019 15725-Xzug Destruction, 05-0606/16/2019 96381-Vcao Destruction, 05-0604/03/2019 46695-Rygx Destruction, 05-0601/16/2019 34986-Ywhl Destruction, 05-0610/17/2018 84671-Orrz Destruction, 05-0608/14/2018 86305-Zpuo Destruction, 05-0606/13/2018 87109-Rlvf Destruction, 05-0610/25/2017 82343-Xjzm Destruction, 05-0601/07/2018 07286-Reoo Destruction, 05-0608/30/2023 81340-Nqfy Destruction, 05-0606/27/2023 05346-Jynb Destruction, 05-0604/11/2023 90231-Ssel Destruction, 05-0601/25/2023 22361-Otqy Destruction, 05-0611/16/2022 11393-Bzai Destruction, 05-0608/24/2022 52405-Wzcd Destruction, 05-0606/15/2022 63044-Hzmg Destruction, 05-0604/05/2022 60869-Mucy Destruction, 05-0601/19/2022 97808-Skgm Destruction, 05-0606/16/2021 99110-Wvdg Destruction, 05-0603/20/2018 29915-Rkhq Destruction, 05-0611/10/2021 23922-Xobr Destruction, 05-0608/29/2021 38040-Pysa Destruction, 05-0602/17/2021 37718-Vfzx Destruction, 05-0612/02/2020 13064-Ebpn Destruction, 05-0609/29/2020 55577-Gqmv Destruction, 05-0607/15/2020 30459-Pcgv Destruction, 05-0601/24/2024 67607-Cprm Destruction, 05-0611/08/2023 53084-Aurynxqu Plate 11/08/2023 48377-Ntsupgon Plate 09/29/2020 99047-Xbzqvwhq Plate 12/02/2020 76129-Jawsbims Plate 02/17/2021 88463-Gfpavwqp Plate 06/16/2021 59952-Sagnqxyj Plate 08/29/2021 55648-Lnhngmka Plate 11/10/2021 54151-Bufpczlt Plate 01/19/2022 51886-Resrwihm Plate 04/05/2022 81413-Ddtntguk Plate 06/15/2022 56702-Jzlqinba Plate 08/24/2022 23804-Cpwbvakw Plate 11/16/2022 27091-Hoxuunom Plate 01/25/2023 50751-Wnpribjv Plate 04/11/2023 10907-Xfuppclw Plate 06/27/2023 99063-Hjrknuyk Plate 08/30/2023 07194-Dejbdkwa Plate 12/18/2019 40191-Gfksjsgp Plate 05/06/2020 29209-Olnzgewd Plate 07/15/2020 89260-Nlpunemc Plate 11/01/2016 87816-Jszryolb Plate Each Additional 12/2023 48419-Mdujvnkw Plate Each Additional 09/2023 96635-Fdrnronm Plate Each Additional 25281-Jufnrgbc Plate Each Additional 08/2022 74890-Hifqldse Plate Each Additional 33901-Jkycirig Plate Each Additional 07/2022 87987-Sxlvqbli Plate Each Additional 59303-Vgacyozh Plate Each Additional 85542-Pgnsthpc Plate Each Additional 64433-Uxfagknp Plate Each Additional 47270-HERR SKIN LESIONS, OVER 4 11/08/19 24 33162-OWSK SKIN LESIONS, OVER 4 01/24/20 19966-QDQD SKIN LESIONS, OVER 4 05/05/19 89635-BHNK SKIN LESIONS, OVER 4 12/16/19 09123-HOAR SKIN LESIONS, OVER 4 08/01/19 18491-DEZU SKIN LESIONS, OVER 4 06/16/19 85634-IAPY SKIN LESIONS, OVER 4 01/20/20 19864-YMZT SKIN LESIONS, OVER 4 11/11/19 50452-NQIV SKIN LESIONS, OVER 4 08/30/19 49645-HCKM SKIN LESIONS, OVER 4 02/18/20 18186-LQHF SKIN LESIONS, OVER 4 12/03/19 18067-INEC SKIN LESIONS, OVER 4 09/30/19 04561-HHNR SKIN LESIONS, OVER 4 03/25/20 21 26300-IMAQ SKIN LESIONS, OVER 4 04/05/20 22 96288-KXRF SKIN LESIONS, OVER 4 06/15/19 23 75743-DIOX SKIN LESIONS, OVER 4 08/25/19 23 36088-ENFX SKIN LESIONS, OVER 4 11/17/19 23 45649-CAMI SKIN LESIONS, OVER 4 01/26/20 23 55638-CXTC SKIN LESIONS, OVER 4 04/11/20 23 57112-YPCI SKIN LESIONS, OVER 4 06/27/19 24 89283-PDGK SKIN LESIONS, OVER 4 08/30/19 24 59488-TTMC SKIN LESIONS, OVER 4 03/21/20 17 58571-IQEG SKIN LESIONS, OVER 4 01/04/20 09938-PPZW SKIN LESIONS, OVER 4 10/26/19 18 07008-OHOF SKIN LESIONS, OVER 4 08/07/19 18 50916-TCZG SKIN LESIONS, OVER 4 05/30/19 18 69545-KCTS SKIN LESIONS, OVER 4 11/02/19 17 05559-LYEF SKIN LESIONS, OVER 4 06/14/19 17 93686-HUSZ SKIN LESIONS, OVER 4 04/05/20 16 59437-BPQG SKIN LESIONS, OVER 4 08/24/19 17 68378-KAVK SKIN LESIONS, OVER 4 01/24/20 16 90771-VKNW SKIN LESIONS, OVER 4 11/15/19 16 55218-BRDQ SKIN LESIONS, OVER 4 08/16/19 16 75917-WWON SKIN LESIONS, OVER 4 05/06/19 21 83768-AQQY SKIN LESIONS, OVER 4 12/18/19 20 73578-QOTY SKIN LESIONS, OVER 4 08/27/19 20 01993-HDNC SKIN LESIONS, OVER 4 04/03/20 19 19258-KWKJ SKIN LESIONS, OVER 4 06/16/19 20 23130-DURS SKIN LESIONS, OVER 4 01/08/20 18 66691-UGUK SKIN LESIONS, OVER 4 06/13/19 19 39184-DVHK SKIN LESIONS, OVER 4 08/15/19 19 68301-ZOGZ SKIN LESIONS, OVER 4 03/20/20 18 69563-VOOZ SKIN LESIONS, OVER 4 10/18/19 19 73279-HNSB SKIN LESIONS, OVER 4 01/17/20 19 Y8524-SUARDUKH DYSTROPHIC NAILS ANY # F7058-ITQNNTKV DYSTROPHIC NAILS ANY # W7836-GOUBFYTB DYSTROPHIC NAILS ANY # T4385-YHQQZDZP DYSTROPHIC NAILS ANY # X8308-WUDDYQVU DYSTROPHIC NAILS ANY # H7912-MNJLAAXG DYSTROPHIC NAILS ANY # Z2374-KZSKKJYM DYSTROPHIC NAILS ANY # P4349-NHNKTTGY DYSTROPHIC NAILS ANY # Next Appt Details Provider Name:Boby Snow Adela , 03/30/2025 01:30:00 PM, [address] [place] [address], [facility] [address], [place], [address], Insurance Providers Payer Name Payer Address Payer Phone Subscriber Number Group Number Insured Name Patient Relationship to Insured Coverage Start Date Coverage End Date [facility] [employer] Claims [address] [place] [id number] Jacinda Benavidez Self - patient is the insured Medical (General) History Medical History History ICD Code Anemia Anxiety Arthritis Back,Hip,and Knee pain Cataracts High blood pressure Liver disease Reflux Thyroid disorder Surgical History Surgery Date(Month/Year) gall bladder 12/11/2014 Unspecified Right Hand SX 03/13/17 Hospitalization History Reason Date(Month/Year) [facility]- back pain 10/03/24
--- OUTSIDE RECORDS SUMMARY | 2024-12-24 20:51 | XMS_ITS | Encounter Summary ---
Author Organization [facility] Address [address] [place] [address] Phone Care Team Providers Care Counter Top Maker Name Role Phone Truong Colon MD Primary Care Provider +1- [phone] Encounter Details Date Type Department Care Team (Late Contact Info) Description 08/04/2024 Documentation Only [facility] [address] [place] [address] Kylie Gabriel [address] [place] [address] Social History Tobacco Use Types [...] [facility] [address] [place] [address] Romero Jimenez MD [address] [place] [address] [place] [address] documented as of this encounter Visit Diagnoses Not on filedocumented in this encounter Care Teams Counter Top Maker Relationship Specialty Start Date End Date Truong Colon MD [address] [place] [address] PCP - General Internal Medicine 03/06/23 documented as of this encounter
--- OUTSIDE RECORDS SUMMARY | 2024-12-24 20:51 | XMS_ITS | Encounter Summary ---
Author Organization [facility] Address [address] [place] [address] Phone Care Team Providers Care Senior Sql Server Developer Name Role Phone Truong Colon MD Primary Care Provider +1- [phone] Encounter Details Date Type Department Care Team (Late Contact Info) Description 01/14/2024 Documentation Only [facility] [address] [place] [address] [place] [address] [place] [address] Social History Tobacco Use Types Packs/Day [...] Visit [facility] [address] [place] [address] Romero Jimenez MD [address] [place] [address] documented as of this encounter Visit Diagnoses Not on filedocumented in this encounter Care Teams Senior Sql Server Developer Relationship Specialty Start Date End Date Truong Colon MD [address] [place] [address] PCP - General Internal Medicine 03/06/23 documented as of this encounter
--- OUTSIDE RECORDS SUMMARY | 2024-12-24 20:51 | XMS_ITS | Encounter Summary ---
Author Organization [facility] Address [address] [place] [address] Phone Care Team Providers Care Railroad Mechanic Name Role Phone Truong Colon MD Primary Care Provider +1- [phone] Encounter Details Date Type Department Care Team (Late Contact Info) Description 04/24/2024 Documentation Only [facility] [address] [place] [address] Kylie Gabriel [address] [place] [address] Social History Tobacco Use Types [...] [facility] [address] [place] [address] Romero Jimenez MD [address] [place] [address] [place] [address] documented as of this encounter Visit Diagnoses Not on filedocumented in this encounter Care Teams Railroad Mechanic Relationship Specialty Start Date End Date Truong Colon MD [address] [place] [address] PCP - General Internal Medicine 03/06/23 documented as of this encounter
--- OUTSIDE RECORDS SUMMARY | 2024-12-24 20:51 | XMS_ITS | Encounter Summary ---
Author Organization [facility] Address [address] [place] [address] Phone Care Team Providers Care Molding Machine Operator Name Role Phone Truong Colon MD Primary Care Provider +1- [phone] Encounter Details Date Type Department Care Team (Late Contact Info) Description 04/10/2024 Documentation Only [facility] [address] [place] [address] Kylie Gabriel [address] [place] [address] Social History Tobacco Use Types [...] [facility] [address] [place] [address] Romero Jimenez MD [address] [place] [address] [place] [address] documented as of this encounter Visit Diagnoses Not on filedocumented in this encounter Care Teams Molding Machine Operator Relationship Specialty Start Date End Date Truong Colon MD [address] [place] [address] PCP - General Internal Medicine 03/06/23 documented as of this encounter
--- OUTSIDE RECORDS SUMMARY | 2024-12-24 20:51 | XMS_ITS | Encounter Summary ---
Author Organization [facility] [place] [address] Care Team Providers Care Vice President Quality Assurance Name Role Phone Truong Colon MD Primary Care Provider Encounter Details Date Type Department Care Team (Late Contact Info) Description 10/30/2024 Lab Requisition [facility] - Main Lab [address] [facility] [place] [address] Ally Castañeda MD [address] [place] [address] Spinal stenosis, site unspecified; Chronic [...] Description 11/04/2025 10:30 AM EDT Office Visit [facility] Hematology Oncology [address] [place] [address] Jennifer Ca MD [address] [place] [address] [phone] (work) documented as of this encounter Procedures [...] mg/dL LAB CHEMISTRY METHOD 10/31/2024 11:08 AM [facility] BUN 11 5 - 25 mg/dL LAB CHEMISTRY METHOD 10/31/2024 11:08 AM [facility] Creatinine 0.92 0.50 - 1.10 mg/dL LAB CHEMISTRY METHOD 10/31/2024 11:08 AM [facility] eGFR 63 >=60 mL/min/1. 73m2 LAB CHEMISTRY METHOD 10/31/2024 11:08 AM [facility] Comment:Calculation based on the Chronic Kidney Disease Epidemiology Collaboration (CKD-EPI) equation refit without adjustment for race. BUN/Creatinine Ratio 12.0 LAB CHEMISTRY METHOD 10/31/2024 11:08 AM EDT [facility] Calcium 8.9 8.5 - 10.5 mg/dL LAB CHEMISTRY METHOD 10/31/2024 11:08 AM [facility] Blood Venous blood specimen / Unknown Venipuncture / Unknown 10/31/2024 7:20 AM EDT 10/31/2024 10:27 AM EDT us Ally Castañeda MD LAB BLOOD ORDERABLES Final Resul t [facility] [address] [place] [address], * (ABNORMAL) Complete blood count (10/31/2024 7:20 [...] 10:38 AM EDT [facility] RDW 15.1(H) 11.0 - 15.0 % LAB HEMETOLOGY METHOD 10/31/2024 10:38 AM EDT [facility] Platelets 239 130 - 400 [...] Resul t [facility] [address] [place] [address], documented in this encounter Visit Diagnoses Diagnosis Spinal stenosis, site unspecified Chronic kidney disease, unspecified documented in this encounter Care Teams Vice President Quality Assurance Relationship Specialty Start Date End Date Truong Colon MD [address] [place] PCP - General 05/19/22 documented as of this encounter
--- OUTSIDE RECORDS SUMMARY | 2024-12-24 20:51 | XMS_ITS | Encounter Summary ---
Author Organization [facility] Address [address] [place] [address] Phone Care Team Providers Care Ship Pilot Dispatcher Name Role Phone Truong Colon MD Primary Care Provider +1- [phone] Encounter Details Date Type Department Care Team (Late Contact Info) Description 11/28/2024 Orders Only [facility] [address] [place] [address] Kylie Gabriel [address] [place] [address] Anemia in chronic kidney disease; [...] Visit [facility] [address] [place] [address] Romero Jimenez MD [address] [place] [address] documented as of this encounter Visit Diagnoses Diagnosis Anemia in chronic kidney disease Stage 3b chronic kidney disease (HCC) Iron deficiency anemia, not otherwise specified documented in this encounter Care Teams Ship Pilot Dispatcher Relationship Specialty Start Date End Date Truong Colon MD [address] [place] [address] PCP - General Internal Medicine 03/06/23 documented as of this encounter
--- OUTSIDE RECORDS SUMMARY | 2024-12-24 20:51 | XMS_ITS | Encounter Summary ---
Author Organization [facility] Address [address] [place] [address] Phone Care Team Providers Care Historical Interpreter Name Role Phone Truong Colon MD Primary Care Provider +1- [phone] Encounter Details Date Type Department Care Team (Late Contact Info) Description 09/05/2024 Orders Only [facility] [address] [place] [address] Kylie Gabriel [address] [place] [address] Anemia in chronic kidney disease; [...] Visit [facility] [address] [place] [address] Romero Jimenez MD [address] [place] [address] documented as of this encounter Visit Diagnoses Diagnosis Anemia in chronic kidney disease Stage 3b chronic kidney disease (HCC) Iron deficiency anemia, not otherwise specified documented in this encounter Care Teams Historical Interpreter Relationship Specialty Start Date End Date Truong Colon MD [address] [place] [address] PCP - General Internal Medicine 03/06/23 documented as of this encounter
--- OUTSIDE RECORDS SUMMARY | 2024-12-24 20:51 | XMS_ITS ---
Author Organization [facility] Address [address] [place] [address] Care Team Providers Care Pm Head Cook Name Role Phone Truong Colon MD Primary Care Provider +1- [phone] Active Problems Problem Noted Date Diagnosed Date [...] documented for this patient in [facility]. Treatments may have been administered in another system.
--- OUTSIDE RECORDS SUMMARY | 2024-12-24 20:51 | XMS_ITS | Encounter Summary ---
Author Organization [facility] Address [address] [place] [address] Phone Care Team Providers Care Gis Programmer Name Role Phone Truong Colon MD Primary Care Provider +1- [phone] Encounter Details Date Type Department Care Team (Late Contact Info) Description 10/29/2023 Documentation Only [facility] [address] [place] [address] Kylie Gabriel [address] [place] [address] Social History Tobacco Use Types [...] Visit [facility] [address] [place] [address] Romero Jimenez MD [address] [place] [address] [place] [address] documented as of this encounter Visit Diagnoses Not on filedocumented in this encounter Care Teams Gis Programmer Relationship Specialty Start Date End Date Truong Colon MD [address] [place] [address] PCP - General Internal Medicine 03/06/23 documented as of this encounter
--- OUTSIDE RECORDS SUMMARY | 2024-12-24 20:51 | XMS_ITS | Encounter Summary ---
Author Organization [facility] Address [address] [place] [address] Phone Care Team Providers Care Softball Winder Name Role Phone Truong Colon MD Primary Care Provider +1- [phone] Encounter Details Date Type Department Care Team (Late Contact Info) Description 06/03/2024 Documentation Only [facility] [address] [place] [address] Kylie Gabriel [address] [place] [address] Social History Tobacco Use Types [...] [facility] [address] [place] [address] Romero Jimenez MD [address] [place] [address] [place] [address] documented as of this encounter Visit Diagnoses Not on filedocumented in this encounter Care Teams Softball Winder Relationship Specialty Start Date End Date Truong Colon MD [address] [place] [address] PCP - General Internal Medicine 03/06/23 documented as of this encounter
--- OUTSIDE RECORDS SUMMARY | 2024-12-24 20:51 | XMS_ITS | Encounter Summary ---
Author Organization [facility] Address [address] [place] [address] Phone Care Team Providers Care Cutting Machine Fixer Name Role Phone Truong Colon MD Primary Care Provider +1- [phone] Encounter Details Date Type Department Care Team (Late Contact Info) Description 01/21/2024 Orders Only [facility] [address] [place] [address] Dimitris Suarez PA [address] [place] [address] [place] [address] Stage 3a chronic kidney disease [...] Visit [facility] [address] [place] [address] Romero Jimenez MD [address] [place] [address] [place] [address] documented as of this encounter Visit Diagnoses Diagnosis Stage 3a chronic kidney disease (HCC) Essential hypertension Peripheral vascular disease (HCC) Peripheral vascular disease Renal osteodystrophy documented in this encounter Care Teams Cutting Machine Fixer Relationship Specialty Start Date End Date Truong Colon MD [address] [place] [address] PCP - General Internal Medicine 03/06/23 documented as of this encounter
--- OUTSIDE RECORDS SUMMARY | 2024-12-24 20:51 | XMS_ITS | Patient Health Record ---
Author Organization [facility] Address [address] [place] [address] Care Team Providers Care Harbor Tug Captain Name Role Phone Radha Pena Primary Care Provider Timoteo Schneider Unavailable [phone] Allergies Allergen (clinical drug ingredient) Drug/Non Drug [...] Problem Status W/U Status Risk Notes Problem [id number] Encounter for screening for malignant neoplasm of colon (Z12.11) Active confirmed Problem Screening for malignant neoplasm of rectum (689441353) Encounter for screening for malignant neoplasm of rectum (Z12.12) Active confirmed Problem [id number] Gastroesophageal reflux disease, esophagitis presence not specified (K21.9) Active confirmed Problem [id number] Constipation, unspecified constipation type (K59.00) Active confirmed Plan Of Treatment Future Test Test Name Order Date UPPER GI ENDOSCOPY 11/30/2015 COLONOSCOPY 11/30/2015 Insurance Providers Payer Name Payer Address Payer Phone Subscriber Number Group Number Insured Name Patient Relationship to Insured Coverage Start Date Coverage End Date [facility] [address] [place] [phone] [id number] NOE SALDIVAR Self - patient is the insured Medical (General) History Medical History History ICD Code Hypertension Kidney disease--mild renal insuffciency- -GFR of 40--Dr. Meza Denies [place],DM,CVA,Lung disease Neg. colonoscopy in 2004 exc ept for diverticulosis and internal hemorrhoids-- Neg. EGD in 2004--Dr. Bear Breast cancer on the left in 2013--lumpe ctomy and XRT Hypothyroidism GERD Surgical History Surgery Date(Month/Year) Cholecystectomy--Dr. Banks 2014 Bladder suspension Left lumpectomy for breast cancer in 4
--- OUTSIDE RECORDS SUMMARY | 2024-12-24 20:51 | XMS_ITS | Encounter Summary ---
Author Organization [facility] Address [address] [place] [address] Phone Care Team Providers Care Arcgis Developer Name Role Phone Truong Colon MD Primary Care Provider +1- [phone] Encounter Details Date Type Department Care Team (Late Contact Info) Description 11/09/2021 Documentation Only [facility] [address] [place] [address] Dimitris Suarez PA [address] [place] [place] [address] Social History Tobacco Use Types [...] Visit [facility] [address] [place] [address] Romero Jimenez MD [address] [place] [address] documented as of this encounter Visit Diagnoses Not on filedocumented in this encounter Care Teams Arcgis Developer Relationship Specialty Start Date End Date Truong Colon MD [address] [place] [address] PCP - General Internal Medicine 03/06/23 documented as of this encounter
--- OUTSIDE RECORDS SUMMARY | 2024-12-24 20:51 | XMS_ITS | Encounter Summary ---
Author Organization [facility] Address [address] [place] [address] Phone Care Team Providers Care Circulation Assistant Name Role Phone Truong Colon MD Primary Care Provider +1- [phone] Encounter Details Date Type Department Care Team (Late Contact Info) Description 04/04/2024 Documentation Only [facility] [address] [place] [address] Jasmin Dumont [address] [place] [address] Social History Tobacco Use Types [...] [facility] [address] [place] [address] Romero Jimenez MD [address] [place] [address] [place] [address] documented as of this encounter Visit Diagnoses Not on filedocumented in this encounter Care Teams Circulation Assistant Relationship Specialty Start Date End Date Truong Colon MD [address] [place] [address] PCP - General Internal Medicine 03/06/23 documented as of this encounter
--- OUTSIDE RECORDS SUMMARY | 2024-12-24 20:51 | XMS_ITS | Encounter Summary ---
Author Organization [facility] Address [address] [place] [address] Phone Care Team Providers Care Consignee Name Role Phone Truong Colon MD Primary Care Provider +1- [phone] Encounter Details Date Type Department Care Team (Late Contact Info) Description 12/21/2021 Documentation Only [facility] [address] [place] [address] Dimitris Suarez PA [address] [place] [address] Social History Tobacco Use Types [...] Visit [facility] [address] [place] [address] Romero Jimenez MD [address] [facility] [place] [address] documented as of this encounter Visit Diagnoses Not on filedocumented in this encounter Care Teams Consignee Relationship Specialty Start Date End Date Truong Colon MD [address] [place] [address] PCP - General Internal Medicine 03/06/23 documented as of this encounter
--- OUTSIDE RECORDS SUMMARY | 2024-12-24 20:51 | XMS_ITS | Encounter Summary ---
Author Organization [facility] Address [address] [place] [address] Phone Care Team Providers Care Car Knocker Name Role Phone Truong Colon MD Primary Care Provider +1- [phone] Encounter Details Date Type Department Care Team (Late Contact Info) Description 04/11/2022 Documentation Only [facility] [address] [place] [address] Kylie Gabriel [address] [place] [address] Social History Tobacco Use Types [...] [facility] [address] [place] [address] Romero Jimenez MD [address] [place] [address] [place] [address] documented as of this encounter Visit Diagnoses Not on filedocumented in this encounter Care Teams Car Knocker Relationship Specialty Start Date End Date Truong Colon MD [address] [place] [address] PCP - General Internal Medicine 03/06/23 documented as of this encounter
--- OUTSIDE RECORDS SUMMARY | 2024-12-24 20:51 | XMS_ITS | Encounter Summary ---
Author Organization [facility] Address [address] [place] [address] Phone Care Team Providers Care Sap Bpc Architect Name Role Phone Truong Colon MD Primary Care Provider +1- [phone] Encounter Details Date Type Department Care Team (Late Contact Info) Description 10/03/2024 Orders Only [facility] [address] [place] [address] Kylie Gabriel [address] [place] [address] Anemia in chronic kidney disease; [...] Visit [facility] [address] [place] [address] Romero Jimenez MD [address] [facility] [address] [place] [address] documented as of this encounter Visit Diagnoses Diagnosis Anemia in chronic kidney disease Stage 3b chronic kidney disease (HCC) Iron deficiency anemia, not otherwise specified documented in this encounter Care Teams Sap Bpc Architect Relationship Specialty Start Date End Date Truong Colon MD [address] [place] [address] PCP - General Internal Medicine 03/06/23 documented as of this encounter
--- OUTSIDE RECORDS SUMMARY | 2024-12-24 20:51 | XMS_ITS | Encounter Summary ---
Author Organization [facility] Address [address] [place] [address] Phone Care Team Providers Care Shank Sorter Name Role Phone Truong Colon MD Primary Care Provider +1- [phone] Encounter Details Date Type Department Care Team (Late Contact Info) Description 05/16/2024 Orders Only [facility] [address] [place] [address] Kylie Gabriel [address] [place] [address] Anemia in chronic kidney disease; [...] Visit [facility] [address] [place] [address] Romero Jimenez MD [address] [place] [address] documented as of this encounter Visit Diagnoses Diagnosis Anemia in chronic kidney disease Stage 3b chronic kidney disease (HCC) Iron deficiency anemia, not otherwise specified documented in this encounter Care Teams Shank Sorter Relationship Specialty Start Date End Date Truong Colon MD [address] [place] [address] PCP - General Internal Medicine 03/06/23 documented as of this encounter
--- OUTSIDE RECORDS SUMMARY | 2024-12-24 20:51 | XMS_ITS | Encounter Summary ---
Author Organization [facility] Address [address] [place] [address] Phone Care Team Providers Care Buhr Mill Operator Name Role Phone Truong Colon MD Primary Care Provider +1- [phone] Encounter Details Date Type Department Care Team (Late Contact Info) Description 04/14/2022 Documentation Only [facility] [address] [place] [address] Eligio Meza MD [address] [place] [address] [place] [address] Social History Tobacco Use Types [...] Visit [facility] [address] [place] [address] Romero Jimenez MD [address] [place] [address] documented as of this encounter Visit Diagnoses Not on filedocumented in this encounter Care Teams Buhr Mill Operator Relationship Specialty Start Date End Date Truong Colon MD [address] [place] [address] PCP - General Internal Medicine 03/06/23 documented as of this encounter
--- OUTSIDE RECORDS SUMMARY | 2024-12-24 20:51 | XMS_ITS | Encounter Summary ---
Author Organization [facility] Address [address] [place] [address] Phone Care Team Providers Care Video Game Designer Name Role Phone Truong Colon MD Primary Care Provider +1- [phone] Encounter Details Date Type Department Care Team (Late Contact Info) Description 05/12/2021 Documentation Only [facility] [address] [place] [address] Eligio Meza MD [address] [place] [address] [place] [address] Social History Tobacco Use Types [...] [facility] [address] [place] [address] Romero Jimenez MD [address] [place] [address] documented as of this encounter Visit Diagnoses Not on filedocumented in this encounter Care Teams Video Game Designer Relationship Specialty Start Date End Date Truong Colon MD [address] [place] [address] PCP - General Internal Medicine 03/06/23 documented as of this encounter
--- OUTSIDE RECORDS SUMMARY | 2024-12-24 20:52 | XMS_ITS | Encounter Summary ---
Author Organization [facility] Address [address] [place] [address] Phone Care Team Providers Care Director Supplier Quality Name Role Phone Truong Colon MD Primary Care Provider +1- [phone] Encounter Details Date Type Department Care Team (Late Contact Info) Description 10/31/2024 Orders Only [facility] [address] [place] [address] Kylie Gabriel [address] [place] [address] Anemia in chronic kidney disease; [...] Visit [facility] [address] [place] [address] Romero Jimenez MD [address] [place] [address] documented as of this encounter Visit Diagnoses Diagnosis Anemia in chronic kidney disease Stage 3b chronic kidney disease (HCC) Iron deficiency anemia, not otherwise specified documented in this encounter Care Teams Director Supplier Quality Relationship Specialty Start Date End Date Truong Colon MD [address] [place] [address] PCP - General Internal Medicine 03/06/23 documented as of this encounter
--- OUTSIDE RECORDS SUMMARY | 2024-12-24 20:52 | XMS_ITS | Encounter Summary ---
Author Organization [facility] Address [address] [place] [address] Phone Care Team Providers Care Suction Roller Name Role Phone Truong Colon MD Primary Care Provider +1- [phone] Encounter Details Date Type Department Care Team (Late Contact Info) Description 07/02/2024 Documentation Only [facility] [address] [place] [address] [place] [address] [place] [address] Social History Tobacco Use Types Packs/Day [...] [facility] [address] [place] [address] Romero Jimenez MD [address] [place] [address] [place] [address] documented as of this encounter Visit Diagnoses Not on filedocumented in this encounter Care Teams Suction Roller Relationship Specialty Start Date End Date Truong Colon MD [address] [place] [address] PCP - General Internal Medicine 03/06/23 documented as of this encounter
--- OUTSIDE RECORDS SUMMARY | 2024-12-24 20:52 | XMS_ITS | Encounter Summary ---
Author Organization [facility] Address [address] [place] [address] Phone Care Team Providers Care Groundskeeping Maintenance Worker Name Role Phone Truong Colon MD Primary Care Provider +1- [phone] Encounter Details Date Type Department Care Team (Late Contact Info) Description 06/13/2024 Orders Only [facility] [address] [place] [address] Kylie Gabriel [address] [place] [address] Anemia in chronic kidney disease; [...] Visit [facility] [address] [place] [address] Romero Jimenez MD [address] [place] [address] documented as of this encounter Visit Diagnoses Diagnosis Anemia in chronic kidney disease Stage 3b chronic kidney disease (HCC) Iron deficiency anemia, not otherwise specified documented in this encounter Care Teams Groundskeeping Maintenance Worker Relationship Specialty Start Date End Date Truong Colon MD [address] [place] [address] PCP - General Internal Medicine 03/06/23 documented as of this encounter
--- OUTSIDE RECORDS SUMMARY | 2024-12-24 20:52 | XMS_ITS | Encounter Summary ---
Author Organization [facility] [place] [address] Care Team Providers Care Lockstitch Shoulder Joiner Name Role Phone Truong Colon MD Primary Care Provider +1 [phone] Encounter Details Date Type Department Care Team (Late Contact Info) Description 10/22/2024 Lab Requisition [facility] - Main Lab [address] [facility] [place] [address] Ally Castañeda MD [address] [place], [place] [id number] Essential (primary) hypertension; Anemia, unspecified Social History [...] Description 11/04/2025 10:30 AM EDT Office Visit [facility] Hematology Oncology [address] [place] [address] Jennifer Ca MD [address] [place] [address] documented as of this encounter [...] (ABNORMAL) Ferritin (10/22/2024 5:26 AM EDT) Pathologist [facility] Ferritin 283(H) 8 - 252 ng/mL LAB CHEMISTRY METHOD 10/22/2024 9:41 AM EDT [facility] Blood Venous blood specimen / Unknown Venipuncture / Unknown 10/22/2024 5:26 AM EDT 10/22/2024 8:36 AM EDT us Ally Castañeda MD LAB BLOOD ORDERABLES Final Resul t [facility] [address] [place] [address], * (ABNORMAL) Basic metabolic panel (10/22/2024 5:26 AM EDT) Pathologist [facility] Sodium 140 133 - 145 mmol/L LAB CHEMISTRY METHOD 10/22/2024 9:41 AM EDT [facility] Potassium 5.5 3.5 - 5.5 mmol/L LAB CHEMISTRY METHOD 10/22/2024 9:41 AM EDT [facility] Chloride 107 96 - 110 mmol/L LAB CHEMISTRY METHOD 10/22/2024 9:41 AM EDT [facility] CO2 30 21 - 32 mmol/L LAB CHEMISTRY METHOD 10/22/2024 9:41 AM EDT [facility] Anion Gap 3 3 - 11 LAB CHEMISTRY METHOD 10/22/2024 9:41 AM EDT [facility] Glucose 69(L) 70 - 100 mg/dL LAB CHEMISTRY METHOD 10/22/2024 9:41 AM EDT [facility] BUN 21 5 - 25 mg/dL LAB CHEMISTRY METHOD 10/22/2024 9:41 AM EDT [facility] Creatinine 0.90 0.50 - 1.10 mg/dL LAB CHEMISTRY METHOD 10/22/2024 9:41 AM EDT [facility] eGFR 64 >=60 mL/min/1. 73m2 LAB CHEMISTRY METHOD 10/22/2024 9:41 AM EDT [facility] Comment:Calculation based on the Chronic Kidney Disease Epidemiology Collaboration (CKD-EPI) equation refit without adjustment for race. BUN/Creatinine Ratio 23.3 LAB CHEMISTRY METHOD 10/22/2024 9:41 AM [facility] Calcium 9.0 8.5 - 10.5 mg/dL LAB CHEMISTRY METHOD 10/22/2024 9:41 AM [facility] Blood Venous blood specimen / Unknown Venipuncture / Unknown 10/22/2024 5:26 AM EDT 10/22/2024 8:36 AM EDT us Ally Castañeda MD LAB BLOOD ORDERABLES Final Resul t [facility] [address] [place] [address], * (ABNORMAL) Complete blood count (10/22/2024 5:26 AM EDT) WBC 5.7 4.8 - 10.8 K/mcL LAB HEMETOLOGY METHOD 10/22/2024 9:09 AM EDT [facility] RBC 3.20(L) 3.80 - 4.80 M/mcL LAB HEMETOLOGY METHOD 10/22/2024 9:09 AM [facility] Hemoglobin 8.6(L) 11.5 - 16.0 g/dL LAB HEMETOLOGY METHOD 10/22/2024 9:09 AM [facility] Hematocrit 28.7(L) 35.0 - 47.0 % LAB HEMETOLOGY METHOD 10/22/2024 9:09 AM [facility] MCV 90.8 79.0 - 98.0 FL LAB HEMETOLOGY METHOD 10/22/2024 9:09 AM [facility] MCH 27.2 27.0 - 32.0 pcg LAB HEMETOLOGY METHOD 10/22/2024 9:09 AM [facility] MCHC 30.0(L) 32.0 - 37.0 g/dL LAB HEMETOLOGY METHOD 10/22/2024 9:09 AM [facility] RDW 13.4 11.0 - 15.0 % LAB HEMETOLOGY METHOD 10/22/2024 9:09 AM [facility] Platelets 383 130 - 400 K/mcL LAB HEMETOLOGY METHOD 10/22/2024 9:09 AM [facility] MPV 10.0 7.0 - 11.0 FL LAB HEMETOLOGY METHOD 10/22/2024 9:09 AM [facility] NRBC 0.0 <1.0 % LAB HEMETOLOGY METHOD 10/22/2024 9:09 AM [facility] NRBC Absolute 0.00 <0.10 K/mcL LAB HEMETOLOGY METHOD 10/22/2024 9:09 AM [facility] Blood Venous blood specimen / Unknown Venipuncture / Unknown 10/22/2024 5:26 AM EDT 10/22/2024 8:36 AM EDT Ally Castañeda MD LAB BLOOD ORDERABLES Final Resul t [facility] [address] [place] [address], documented in this encounter Visit Diagnoses Diagnosis Essential (primary) hypertension Unspecified essential hypertension Anemia, unspecified documented in this encounter Care Teams Lockstitch Shoulder Joiner Relationship Specialty Start Date End Date Truong Colon MD [address] [place] [address] [address] [place], [place] PCP - General 05/19/22 documented as of this encounter
--- OUTSIDE RECORDS SUMMARY | 2024-12-24 20:52 | XMS_ITS | Encounter Summary ---
Author Organization [facility] Address [address] [place] [address] Phone Care Team Providers Care Rn Embedded Name Role Phone Truong Colon MD Primary Care Provider +1- [phone] Encounter Details Date Type Department Care Team (Late Contact Info) Description 10/26/2023 Documentation Only [facility] [address] [place] [address] Kylie Gabriel [address] [place] [address] Social History Tobacco Use Types [...] [facility] [address] [place] [address] Romero Jimenez MD [address] [place] [address] [place] [address] documented as of this encounter Visit Diagnoses Not on filedocumented in this encounter Care Teams Rn Embedded Relationship Specialty Start Date End Date Truong Colon MD [address] [place] [address] PCP - General Internal Medicine 03/06/23 documented as of this encounter
--- OUTSIDE RECORDS SUMMARY | 2024-12-24 20:52 | XMS_ITS | Clinical Summary ---
Author Organization [facility] [place], Address [address] [place] [address] [place] [address] Phone Care Team Providers Care Cake Press Operator Helper Name Role Phone Truong Colon MD Primary Care Provider +1- [phone] Allergies Active Allergy Reactions Criticality Noted Date [...] Visit [facility] [place], [address] [place] [place] [address] Romero Jimenez MD Stage 3b chronic kidney disease (HCC) (Primary Dx) 11/28/2024 Orders Only [facility] [address] [place] [address] Harvey, Kylie Anemia in chronic kidney disease; Stage 3b chronic kidney disease (HCC); Iron deficiency anemia, not otherwise specified 10/31/2024 Orders Only [facility] [address] [place] [address] Harvey, Kylie Anemia in chronic kidney disease; Stage 3b chronic kidney disease (HCC); Iron deficiency anemia, not otherwise specified 10/03/2024 Orders Only [facility] [address] [place] [address] Harvey, Kylie Anemia in chronic kidney disease; Stage 3b chronic kidney disease (HCC); Iron deficiency anemia, not otherwise specified 09/25/2024 Office Communication [facility] [address] [place] [address] Deisi Wakefield, ROGELIO 09/25/2024 Documentation Only [facility] [address] [place] [phone] Deisi Wakefield, RN from Last 3 Months [...] Visit [facility] [place], [address] [facility] [place] [address] Romero Jimenez MD [address] [facility] [place] [address] Health Maintenance Due Date Last Done Comments [...] Most Recently Relevant to Health Maintenance Insurance [facility] Care Dual SNP ([id number]) [place] [id number] Care Teams Cake Press Operator Helper Relationship Specialty Start Date End Date Truong Colon MD [address] [facility] [place] [address] PCP - General Internal Medicine 03/06/23
--- OUTSIDE RECORDS SUMMARY | 2024-12-24 20:52 | XMS_ITS | Clinical Summary ---
Author Organization [facility] Address [address] [place] [address] [address] [place] [address] Phone Care Team Providers Care Supervisor Blasting Name Role Phone Dimple Vergara MD Primary [...] file Medical Devices Not on file Insurance [facility] MEDICARE REPLACEMENT [facility] MEDICARE [facility]PLACEMENT [facility] MEDICARE [facility]PLACEMENT [facility] MEDICARE REPLACEMENT [facility] MEDICARE REPLACEMENT [facility] MEDICARE REPLACEMENT [facility] MEDICARE [facility]PLACEMENT [facility] MEDICARE REPLACEMENT [facility] MEDICARE REPLACEMENT Care Teams Supervisor Blasting Relationship Specialty Start Date End Date Dimple Vergara MD [address] [place] [address] PCP - General 11/13/13 Additional Source Comments The information contained in this document represents components of the legal health record. It is not the complete legal health record.[facility]
--- OUTSIDE RECORDS SUMMARY | 2024-12-24 20:52 | XMS_ITS | Encounter Summary ---
Author Organization [facility] [place] [address] Care Team Providers Care Art Framing Manager Name Role Phone Truong Colon MD Primary Care Provider Encounter Details Date Type Department Care Team (Late Contact Info) Description 11/06/2024 Lab Requisition [facility] - Main Lab [address] [facility] [place] [address] Ally Castañeda MD [address] [place] [address] Spinal stenosis, site unspecified; Chronic [...] [facility] On[facility] [address] [place] [address] Jennifer Ca MD [address] [place] [address] documented as of this encounter Visit Diagnoses Diagnosis Spinal stenosis, site unspecified Chronic kidney disease, unspecified documented in this encounter Care Teams Art Framing Manager Relationship Specialty Start Date End Date Truong Colon MD [address] [place] [address] Dr [address] [place], [place] PCP - General 05/19/22 documented as of this encounter
--- OUTSIDE RECORDS SUMMARY | 2024-12-24 20:52 | XMS_ITS | Encounter Summary ---
Author Organization [place] [address] Care Team Providers Care Quality Assurance Technician Name Role Phone Truong Colon MD Primary Care Provider +1 [phone] Encounter Details Date Type Department Care Team (Late st Contact Info) Description 10/10/2024 Lab Requisition [facility] - Main Lab [address] [facility] [place] [phone] Ally Castañeda MD [address] [place] [address] Malignant neoplasm of unspecified site of unspecified female breast ([facility]/HCC V24, [facility] V28); Hypothyroidism, unspecified; Vitamin D deficiency, [...] Description 11/04/2025 10:30 AM EDT Office Visit [facility] Hematology Oncology [address] [place] [phone] Jennifer Ca MD [address] [place] [phone] documented as of this encounter Procedures Procedure Name Priority Date/Time Associated Diagnosis Comments THYROID STIMULATING HORMONE WITH REFLEX TO FREE T4 AND FREE T3 Routine 10/10/2024 5:37 AM EDT Malignant neoplasm of unspecified site of unspecified female breast ([facility]/HCC V24, [facility]/HCC V28) Hypothyroidism, unspecified Vitamin D deficiency, unspecified Vitamin B12 deficiency anemia, unspecified Spinal stenosis, site unspecified Chronic kidney disease, stage 3 unspecified ([facility]/HCC V24, [facility]/HCC V28) VITAMIN D 25 HYDROXY Routine 10/10/2024 5:37 AM EDT Malignant neoplasm of unspecified site of unspecified female breast ([facility]/HCC V24, [facility]/HCC V28) Hypothyroidism, unspecified [...] site of unspecified female breast ([facility]/HCC V24, [facility]/HCC V28) Hypothyroidism, unspecified Vitamin D deficiency, unspecified Vitamin B12 deficiency anemia, unspecified Spinal stenosis, site unspecified Chronic kidney disease, stage 3 unspecified ([facility]/HCC V24, [facility]/HCC V28) VITAMIN B12 Routine 10/10/2024 5:37 AM EDT Malignant neoplasm of unspecified site of unspecified female breast ([facility] V24, [facility] V28) Hypothyroidism, unspecified Vitamin D deficiency, unspecified Vitamin B12 deficiency anemia, unspecified Spinal stenosis, site unspecified Chronic kidney disease, stage 3 unspecified ([facility] V24, [facility] V28) COMPREHENSIVE METABOLIC PANEL Routine 10/10/2024 5:37 AM EDT Malignant neoplasm of unspecified site of unspecified female breast ([facility] V24, [facility] V28) Hypothyroidism, unspecified Vitamin D deficiency, unspecified Vitamin B12 deficiency anemia, unspecified Spinal stenosis, site unspecified Chronic kidney disease, stage 3 unspecified ([facility] V24, [facility] V28) documented in this encounter Results * Vitamin D 25 hydroxy (10/10/2024 5:37 AM EDT) Vit D, 25-Hydroxy 52.0 30.0 - 80.0 ng/mL LAB CHEMISTRY METHOD 10/10/2024 1:00 PM EDT [facility] Blood Venous blood specimen / Unknown Venipuncture / Unknown 10/10/2024 5:37 AM EDT 10/10/2024 9:30 AM EDT us Ally Castañeda MD LAB BLOOD ORDERABLES Final Resul t [facility] [address] [place] [address], [place] [phone] * Folate (10/10/2024 5:37 AM EDT) Folate 12.9 2.8 - 17.0 ng/ml LAB CHEMISTRY METHOD 10/10/2024 11:35 AM EDT [facility] Blood Venous blood specimen / Unknown Venipuncture / Unknown 10/10/2024 5:37 AM EDT 10/10/2024 9:30 AM EDT us Ally Castañeda MD LAB BLOOD ORDERABLES Final Resul t Performing Organization Address [facility]/ZIP Co de Phone Number [facility] [address] [place] [address], [place] [phone] * Vitamin B12 (10/10/2024 5:37 AM EDT) Vitamin B-12 371 250 - 900 pcg/mL LAB CHEMISTRY METHOD 10/10/2024 11:35 AM EDT [facility] Blood Venous blood specimen / Unknown Venipuncture / Unknown 10/10/2024 5:37 AM EDT 10/10/2024 9:30 AM EDT us Ally Castañeda MD LAB BLOOD ORDERABLES Final Resul t Performing Organization Address [facility] de Phone Number [facility] [address] [place] [address], * Thyroid stimulating hormone with reflex to free t4 and free t3 (10/10/2024 5:37 AM EDT) Pathologist [facility] TSH 2.96 0.40 - 4.00 mcIU/mL LAB CHEMISTRY METHOD 10/10/2024 1:01 PM EDT [facility] Blood Venous blood specimen / Unknown Venipuncture / Unknown 10/10/2024 5:37 AM EDT 10/10/2024 9:30 AM EDT us Ally Castañeda MD LAB BLOOD ORDERABLES Final Resul t Performing Organization Address [facility]/ZIP Co de Phone Number [facility] [address] [place] [address], [place] [phone] * (ABNORMAL) Comprehensive metabolic panel (10/10/2024 5:37 AM EDT) Sodium 130(L) 133 - 145 mmol/L LAB CHEMISTRY METHOD 10/10/2024 11:35 AM EDT [facility] Potassium 4.9 3.5 - 5.5 mmol/L LAB CHEMISTRY METHOD 10/10/2024 11:35 AM [facility] Chloride 97 96 - 110 mmol/L LAB CHEMISTRY METHOD 10/10/2024 11:35 AM [facility] CO2 28 21 - 32 mmol/L LAB CHEMISTRY METHOD 10/10/2024 11:35 AM [facility] Anion Gap 5 3 - 11 LAB CHEMISTRY METHOD 10/10/2024 11:35 AM [facility] Glucose 82 70 - 100 mg/dL LAB CHEMISTRY METHOD 10/10/2024 11:35 AM [facility] BUN 37(H) 5 - 25 mg/dL LAB CHEMISTRY METHOD 10/10/2024 11:35 AM [facility] Creatinine 1.16(H) 0.50 - 1.10 mg/dL LAB CHEMISTRY METHOD 10/10/2024 11:35 AM [facility] eGFR 47(L) >=60 mL/min/1. 73m2 LAB CHEMISTRY METHOD 10/10/2024 11:35 AM [facility] Comment:Calculation based on the Chronic Kidney Disease Epidemiology Collaboration (CKD-EPI) equation refit without adjustment for race. BUN/Creatinine Ratio 31.9 LAB CHEMISTRY METHOD 10/10/2024 11:35 AM [facility] Calcium 8.9 8.5 - 10.5 mg/dL LAB CHEMISTRY METHOD 10/10/2024 11:35 AM [facility] AST (SGOT) 42 10 - 42 unit/L LAB CHEMISTRY METHOD 10/10/2024 11:35 AM [facility] ALT (SGPT) 48 10 - 60 unit/L LAB CHEMISTRY METHOD 10/10/2024 11:35 AM [facility] Alkaline Phosphatase 98 42 - 121 unit/L LAB CHEMISTRY METHOD 10/10/2024 11:35 AM [facility] Total Protein 6.3 6.0 - 8.0 g/dL LAB CHEMISTRY METHOD 10/10/2024 11:35 AM EDT [facility] Albumin 2.3(L) 3.2 - 5.0 g/dL LAB CHEMISTRY METHOD 10/10/2024 11:35 AM EDT [facility] Total Bilirubin 0.4 0.0 - 1.4 mg/dL LAB CHEMISTRY METHOD 10/10/2024 11:35 AM EDT [facility] Blood Venous blood specimen / Unknown Venipuncture / Unknown 10/10/2024 5:37 AM EDT 10/10/2024 9:30 AM EDT Ally Castañeda MD LAB BLOOD ORDERABLES Final Resul t [facility] [address] [place] [address], [place] [phone] * (ABNORMAL) Complete blood count (10/10/2024 5:37 AM EDT) WBC 9.2 4.8 - 10.8 K/mcL LAB HEMETOLOGY METHOD 10/10/2024 10:58 AM EDT [facility] RBC 3.10(L) 3.80 - 4.80 M/mcL LAB HEMETOLOGY METHOD 10/10/2024 10:58 AM EDT [facility] Hemoglobin 8.8(L) 11.5 - 16.0 g/dL LAB HEMETOLOGY METHOD 10/10/2024 10:58 AM EDT [facility] Hematocrit 28.0(L) 35.0 - 47.0 % LAB HEMETOLOGY METHOD 10/10/2024 10:58 AM EDT [facility] MCV 89.7 79.0 - 98.0 FL LAB HEMETOLOGY METHOD 10/10/2024 10:58 AM EDT [facility] MCH 28.2 27.0 - 32.0 pcg LAB HEMETOLOGY METHOD 10/10/2024 10:58 AM EDT [facility] MCHC 31.4(L) 32.0 - 37.0 g/dL LAB HEMETOLOGY METHOD 10/10/2024 10:58 AM EDT [facility] RDW 13.2 11.0 - 15.0 % LAB HEMETOLOGY METHOD 10/10/2024 10:58 AM EDT [facility] Platelets 261 130 - 400 K/mcL LAB HEMETOLOGY METHOD 10/10/2024 10:58 AM EDT [facility] MPV 11.0 7.0 - 11.0 FL LAB HEMETOLOGY METHOD 10/10/2024 10:58 AM EDT [facility] NRBC 0.0 <1.0 % LAB HEMETOLOGY METHOD 10/10/2024 10:58 AM EDT [facility] NRBC Absolute 0.00 <0.10 K/mcL LAB HEMETOLOGY METHOD 10/10/2024 10:58 AM EDT [facility] Blood Venous blood specimen / Unknown Venipuncture / Unknown 10/10/2024 5:37 AM EDT 10/10/2024 9:30 AM EDT us Ally Castañeda MD LAB BLOOD ORDERABLES Final Resul t [facility] [address] [place] [address], documented in this encounter Visit Diagnoses Diagnosis Malignant neoplasm of unspecified site of unspecified female breast ([facility]/HCC V24, [facility]/HCC V28) Hypothyroidism, unspecified Vitamin D deficiency, unspecified Vitamin B12 deficiency anemia, unspecified Spinal stenosis, site unspecified Chronic kidney disease, stage 3 unspecified (CMS/HCC V24, CMS/HCC V28) documented in this encounter Care Teams Quality Assurance Technician Relationship Specialty Start Date End Date Truong Colon MD [address] [facility] [place] PCP - General 05/19/22 documented as of this encounter
--- OUTSIDE RECORDS SUMMARY | 2024-12-24 20:52 | XMS_ITS ---
Author Organization [facility], Address [address] [place] [address] [place] [address] Phone Care Team Providers Care Gallery Assistant Name Role Phone Truong Colon MD Primary Care Provider +1- [phone] Active Problems Problem Noted Date Diagnosed Date [...]
--- OUTSIDE RECORDS SUMMARY | 2024-12-24 20:52 | XMS_ITS | Encounter Summary ---
Author Organization [facility] Address [address] [place] [address] Phone Care Team Providers Care Manager Mission Name Role Phone Truong Colon MD Primary Care Provider +1- [phone] Encounter Details Date Type Department Care Team (Late Contact Info) Description 07/31/2024 Documentation Only [facility] [address] [place] [address] Kylie Gabriel [address] [place] [address] Social History Tobacco Use Types [...] [facility] [address] [place] [address] Romero Jimenez MD [address] [place] [address] [place] [address] documented as of this encounter Visit Diagnoses Not on filedocumented in this encounter Care Teams Manager Mission Relationship Specialty Start Date End Date Truong Colon MD [address] [place] [address] PCP - General Internal Medicine 03/06/23 documented as of this encounter
--- OUTSIDE RECORDS SUMMARY | 2024-12-24 20:52 | XMS_ITS | Encounter Summary ---
Author Organization [facility] Address [address] [place] [address] Phone Care Team Providers Care Supervisor Anodizing Name Role Phone Truong Colon MD Primary Care Provider +1- [phone] Encounter Details Date Type Department Care Team (Late Contact Info) Description 07/11/2024 Orders Only [facility] [address] [address] Kylie Gabriel [address] [place] [address] Anemia in chronic kidney disease; [...] Visit [facility] [address] [address] Romero Jimenez MD [address] [facility] [address] [place] [address] documented as of this encounter Visit Diagnoses Diagnosis Anemia in chronic kidney disease Stage 3b chronic kidney disease (HCC) Iron deficiency anemia, not otherwise specified documented in this encounter Care Teams Supervisor Anodizing Relationship Specialty Start Date End Date Truong Colon MD [address] [place] [address] PCP - General Internal Medicine 03/06/23 documented as of this encounter
--- OUTSIDE RECORDS SUMMARY | 2024-12-24 20:52 | XMS_ITS | Continuity of Care Document ---
Author Name [facility], Medical Address [address] [place] [address] Organization Unknown Address [address] [place] [address] Medications No known medications Problems No known problems
--- OUTSIDE RECORDS SUMMARY | 2024-12-24 20:52 | XMS_ITS | Encounter Summary ---
Author Organization [facility] [place] [address] Care Team Providers Care Mental Hygiene Consultant Name Role Phone Truong Colon MD Primary Care Provider Encounter Details Date Type Department Care Team (Late Contact Info) Description 10/22/2024 Lab Requisition [facility] - Main Lab [address] [facility] [place] [address] Ally Castañeda MD [address] [place] [address] Spinal stenosis, site unspecified; Chronic [...] 11/04/2025 10:30 AM EDT Office Visit [facility] Hematology Oncology [address] [place] [address] Jennifer Ca MD [address] [place] [address] [phone] (work) documented as of this encounter Procedures [...] mmol/L LAB CHEMISTRY METHOD 10/23/2024 11:28 AM [facility] Potassium 4.6 3.5 - 5.5 mmol/L LAB CHEMISTRY METHOD 10/23/2024 11:28 AM [facility] Chloride 107 96 - 110 mmol/L LAB CHEMISTRY METHOD 10/23/2024 11:28 AM [facility] CO2 29 21 - 32 mmol/L LAB CHEMISTRY METHOD 10/23/2024 11:28 AM [facility] Anion Gap 4 3 - 11 LAB CHEMISTRY METHOD 10/23/2024 11:28 AM [facility] Glucose 65(L) 70 - 100 mg/dL LAB CHEMISTRY METHOD 10/23/2024 11:28 AM [facility] BUN 17 5 - 25 mg/dL LAB CHEMISTRY METHOD 10/23/2024 11:28 AM [facility] Creatinine 0.87 0.50 - 1.10 mg/dL LAB CHEMISTRY METHOD 10/23/2024 11:28 AM [facility] eGFR 67 >=60 mL/min/1. 73m2 LAB CHEMISTRY METHOD 10/23/2024 11:28 AM [facility] Comment:Calculation based on the Chronic Kidney Disease Epidemiology Collaboration (CKD-EPI) equation refit without adjustment for race. BUN/Creatinine Ratio 19.5 LAB CHEMISTRY METHOD 10/23/2024 11:28 AM EDT [facility] Calcium 8.7 8.5 - 10.5 mg/dL LAB CHEMISTRY METHOD 10/23/2024 11:28 AM [facility] Blood Venous blood specimen / Unknown Venipuncture / Unknown 10/23/2024 5:09 AM EDT 10/23/2024 10:13 AM EDT us Ally Castañeda MD LAB BLOOD ORDERABLES Final Resul t [facility] [address] [place] [address], * (ABNORMAL) Complete blood count (10/23/2024 5:09 AM EDT) WBC 4.8 4.8 - 10.8 K/mcL LAB HEMETOLOGY METHOD 10/23/2024 10:31 AM [facility] RBC 3.10(L) 3.80 - 4.80 M/mcL LAB HEMETOLOGY METHOD 10/23/2024 10:31 AM [facility] Hemoglobin 8.3(L) 11.5 - 16.0 g/dL LAB HEMETOLOGY METHOD 10/23/2024 10:31 AM [facility] Hematocrit 27.9(L) 35.0 - 47.0 % LAB HEMETOLOGY METHOD 10/23/2024 10:31 AM [facility] MCV 90.3 79.0 - 98.0 FL LAB HEMETOLOGY METHOD 10/23/2024 10:31 AM [facility] MCH 26.9(L) 27.0 - 32.0 pcg LAB HEMETOLOGY METHOD 10/23/2024 10:31 AM [facility] MCHC 29.7(L) 32.0 - 37.0 g/dL LAB HEMETOLOGY METHOD 10/23/2024 10:31 AM EDT [facility] RDW 13.7 11.0 - 15.0 % LAB HEMETOLOGY METHOD 10/23/2024 10:31 AM EDT [facility] Platelets 342 130 - 400 K/mcL LAB HEMETOLOGY METHOD 10/23/2024 10:31 AM EDT [facility] MPV 10.0 7.0 - 11.0 FL LAB HEMETOLOGY METHOD 10/23/2024 10:31 AM EDT [facility] NRBC 0.0 <1.0 % LAB HEMETOLOGY METHOD 10/23/2024 10:31 AM EDT [facility] NRBC Absolute 0.00 <0.10 K/mcL LAB HEMETOLOGY METHOD 10/23/2024 10:31 AM EDT [facility] Blood Venous blood specimen / Unknown Venipuncture / Unknown 10/23/2024 5:09 AM EDT 10/23/2024 10:13 AM EDT us Ally Castañeda MD LAB BLOOD ORDERABLES Final Resul t [facility] [address] [place] [address], documented in this encounter Visit Diagnoses Diagnosis Spinal stenosis, site unspecified Chronic kidney disease, unspecified documented in this encounter Care Teams Mental Hygiene Consultant Relationship Specialty Start Date End Date Truong Colon MD [address] [place] [address] Dr [address] [place] PCP - General 05/19/22 documented as of this encounter
--- OUTSIDE RECORDS SUMMARY | 2024-12-24 20:52 | XMS_ITS | Encounter Summary ---
Author Organization [facility] [place] [address] Care Team Providers Care Gas And Oil Servicer Name Role Phone Truong Colon MD Primary Care Provider Encounter Details Date Type Department Care Team (Late Contact Info) Description 10/16/2024 Lab Requisition [facility] - Main Lab [address] [facility] [place] [address] Ally Castañeda MD [address] [place] [address] Spinal stenosis, site unspecified; Chronic [...] Description 11/04/2025 10:30 AM EDT Office Visit [facility] Hematology Oncology [address] [place] [address] Jennifer Ca MD [address] [place] [address] [phone] (work) documented as of this encounter Procedures [...] mmol/L LAB CHEMISTRY METHOD 10/17/2024 12:13 PM [facility] Potassium 5.6(H) 3.5 - 5.5 mmol/L LAB CHEMISTRY METHOD 10/17/2024 12:13 PM [facility] Chloride 103 96 - 110 mmol/L LAB CHEMISTRY METHOD 10/17/2024 12:13 PM [facility] CO2 28 21 - 32 mmol/L LAB CHEMISTRY METHOD 10/17/2024 12:13 PM [facility] Anion Gap 5 3 - 11 LAB CHEMISTRY METHOD 10/17/2024 12:13 PM [facility] Glucose 77 70 - 100 mg/dL LAB CHEMISTRY METHOD 10/17/2024 12:13 PM [facility] BUN 23 5 - 25 mg/dL LAB CHEMISTRY METHOD 10/17/2024 12:13 PM [facility] Creatinine 1.02 0.50 - 1.10 mg/dL LAB CHEMISTRY METHOD 10/17/2024 12:13 PM [facility] eGFR 55(L) >=60 mL/min/1. 73m2 LAB CHEMISTRY METHOD 10/17/2024 12:13 PM [facility] Comment:Calculation based on the Chronic Kidney Disease Epidemiology Collaboration (CKD-EPI) equation refit without adjustment for race. BUN/Creatinine Ratio 22.5 LAB CHEMISTRY METHOD 10/17/2024 12:13 PM T [facility] Calcium 8.9 8.5 - 10.5 mg/dL LAB CHEMISTRY METHOD 10/17/2024 12:13 PM [facility] Blood Venous blood specimen / Unknown Venipuncture / Unknown 10/17/2024 7:36 AM EDT 10/17/2024 11:30 AM EDT us Ally Castañeda MD LAB BLOOD ORDERABLES Final Resul t [facility] [address] [place] [address], [place] [phone] * (ABNORMAL) Complete blood count (10/17/2024 7:36 AM EDT) WBC 6.5 4.8 - 10.8 K/mcL LAB HEMETOLOGY METHOD 10/17/2024 12:00 PM [facility] RBC 3.40(L) 3.80 - 4.80 M/mcL LAB HEMETOLOGY METHOD 10/17/2024 12:00 PM [facility] Hemoglobin 9.2(L) 11.5 - 16.0 g/dL LAB HEMETOLOGY METHOD 10/17/2024 12:00 PM [facility] Hematocrit 30.9(L) 35.0 - 47.0 % LAB HEMETOLOGY METHOD 10/17/2024 12:00 PM [facility] MCV 91.2 79.0 - 98.0 FL LAB HEMETOLOGY METHOD 10/17/2024 12:00 PM [facility] MCH 27.1 27.0 - 32.0 pcg LAB HEMETOLOGY METHOD 10/17/2024 12:00 PM [facility] MCHC 29.8(L) 32.0 - 37.0 g/dL LAB HEMETOLOGY METHOD 10/17/2024 12:00 PM EDT [facility] RDW 13.2 11.0 - 15.0 % LAB HEMETOLOGY METHOD 10/17/2024 12:00 PM EDT [facility] Platelets 495(H) 130 - 400 K/mcL LAB HEMETOLOGY METHOD 10/17/2024 12:00 PM EDT [facility] MPV 10.0 7.0 - 11.0 FL LAB HEMETOLOGY METHOD 10/17/2024 12:00 PM EDT [facility] NRBC 0.0 <1.0 % LAB HEMETOLOGY METHOD 10/17/2024 12:00 PM EDT [facility] NRBC Absolute 0.00 <0.10 K/mcL LAB HEMETOLOGY METHOD 10/17/2024 12:00 PM EDT [facility] Blood Venous blood specimen / Unknown Venipuncture / Unknown 10/17/2024 7:36 AM EDT 10/17/2024 11:30 AM EDT us Ally Castañeda MD LAB BLOOD ORDERABLES Final Resul t [facility] [address] [place] [address], documented in this encounter Visit Diagnoses Diagnosis Spinal stenosis, site unspecified Chronic kidney disease, unspecified documented in this encounter Care Teams Gas And Oil Servicer Relationship Specialty Start Date End Date Truong Colon MD [address] [place] [address] Dr Eric Christian [place] PCP - General 05/19/22 documented as of this encounter
--- OUTSIDE RECORDS SUMMARY | 2024-12-24 20:52 | XMS_ITS | Encounter Summary ---
Author Organization [facility] Address [address] [place] [address] Phone Care Team Providers Care Optical Glass Inspector Name Role Phone Truong Colon MD Primary Care Provider +1- [phone] Encounter Details Date Type Department Care Team (Late Contact Info) Description 04/29/2024 Documentation Only [facility] [address] [place] [address] Britt Sol [address] [place] [address] Social History Tobacco Use Types [...] [facility] [address] [place] [address] Romero Jimenez MD [address] [place] [address] [place] [address] documented as of this encounter Visit Diagnoses Not on filedocumented in this encounter Care Teams Optical Glass Inspector Relationship Specialty Start Date End Date Truong Colon MD [address] [place] [address] PCP - General Internal Medicine 03/06/23 documented as of this encounter
--- NOTE | 2024-12-24 20:59 | PC.NURSE ---
Patient is italian speaking, stating she got home around four and took her blood pressure, it was in the 160's which is high for her. Called her primary care and told them she was worry due to high blood pressure. Pt primary said due to her chest pain that has been consistent for a week, and head pressure, she should go to the ED. Patient stating she has a consistent chest pressure around her heart that has been going on for one week, dizziness and head pressure for three weeks. Patient is on the cardiac exercise specialist in [place] 50. Asked patient if she has any heart issues previously, she stated no, only high blood pressure and she takes her medication at night. Pt stating her blood pressure is not usually as high as it is currently. Pt also asked for a walker to go to the bathroom as she had to urinate. She states she walks at home with a walker but she forgot to bring it with her. Asked a tech to get a walker for patient, and a urine sample to send down. Patient walked with a steady gait with tech by side as a precaution as this is her first time ambulating here in the hospital. Plan of care ongoing.
[2024-12-24 21:04] LABS: MANUAL DIFF FLAG NO
[2024-12-24 21:06] LABS: Hematocrit 33.7 % (37.0-47.0); Hemoglobin 10.9 g/dl (12.0-16.0); Imm Gran Abs Auto 0.02 X10*3/uL (0.00-0.03); Imm Gran Pct Auto 0.4 % (0.0-0.4); Lymphocytes Absolute Auto 1.3 X10*3/uL (1.2-4.9); Mean Corpuscular HGB Conc 32.3 g/dl (31.0-35.0); Mean Corpuscular Hemoglobin 27.5 pg (27.0-33.0); Mean Corpuscular Volume 85.1 fL (80.0-98.0); NRBC Abs Auto 0.000 X10*3/uL (0.0-0.012); NRBC Pct Auto 0.0 /100WBC (0.0-0.2); Platelet Count 194 X10*3/uL (160-400); Red Blood Count 3.96 X10*6/uL (4.20-5.50); White Blood Count 4.6 X10*3/uL (4.8-10.8)
[2024-12-24 21:08] LABS: Appearance Urine Clear; Glucose Urine UA Negative (Negative); PH 5.5 (5.0-9.0); Specific Gravity - Urine 1.010 (1.005-1.025); UMIC TRIGGER UACC YES
[2024-12-24 21:13] LABS: UACC Culture Trigger YES
[2024-12-24 21:19] LABS: Alanine Aminotransferase 13 U/L (0-31); Albumin Level 4.0 g/dL (3.5-5.0); Alkaline Phosphatase 102 U/L (39-117); Anion Gap 12 (12-20); Aspartate Amino Transferase 21 U/L (5-31); Blood Urea Nitrogen 26 mg/dL (9-16); Calcium 9.3 mg/dL (8.4-10.2); Carbon Dioxide 27 mmol/L (22-29); Chloride 104 mmol/L (96-108); Creatinine Clr Calc Pharmacy 47.0; Estimated Glomerular Filt Rate 44; Potassium 3.9 mmol/L (3.3-5.1); Sodium 139 mmol/L (135-145); Total Protein 7.7 g/dL (6.5-8.0)
[2024-12-24 21:25] LABS: B Type Natriuretic Peptide 261 pg/mL (<100)
--- NOTE | 2024-12-24 21:25 | PC.NURSE ---
family at bedside with patient.
[2024-12-24 21:26] LABS: Troponin-I High Sensitivity 16.2 ng/L (<3.5-17.0)
--- NOTE | 2024-12-24 22:50 | ED.CHESTPAIN ---
HPI - Chest Pain General Chief Complaint: Chest Pain Stated Complaint: l side chest pain x1week, dizzy, headaches, sob Time Seen by Provider: 12/24/24 21:46 History of Present Illness HPI narrative: Patient is an 79-year-old female with a history of GERD presented today because blood pressure has been elevated. Patient took her aspirin. She has nonspecific aches everywhere. She has a history of pain to her shoulders. Patient denies anything is new. There is no new chest pain has no new shortness of breath there is no new diaphoresis there is no fever there is no leg swelling medication has been unchanged. Patient noted her blood pressure to be elevated now in the 160s over 100 range. Came to the ED. firstly history of chronic kidney disease history of reflux patient is from home Related Data Home Medications ?Medication ?Instructions ?Recorded ?Confirmed multivitamin 1 tab PO DAILY 11/15/20 12/19/24 calcitriol 0.5 mcg capsule 1 mcg PO WE@1645 01/10/23 12/19/24 Previous Rx's ?Medication ?Instructions ?Recorded Commode #1 ea 05/11/22 cane #1 ea 02/01/23 DISPOSABLE BED PADS #30 ea 07/12/23 DISPOSABLE GLOVES - LARGE (1 #1 ea 07/12/23 box/month) FEMININE PADS #6 ea 10/01/23 MEDICATED INCONTINENCE WIPES #100 ea 10/01/23 ROLLATOR #1 ea 02/04/24 ROLLATOR #1 ea 08/21/24 amlodipine 10 mg tablet 10 mg PO DAILY 90 days #90 tabs 08/21/24 bisacodyl 5 mg tablet,delayed 5 mg PO BEDTIME 90 days #90 tabs 08/21/24 release levothyroxine 125 mcg tablet 125 mcg PO DAILY@0600 #90 tabs 09/26/24 oxycodone 5 mg tablet 5 mg PO Q6H PRN pain #7 tabs 10/09/24 carvedilol 12.5 mg tablet 12.5 mg PO BID #180 tabs 11/07/24 omeprazole 40 mg capsule,delayed 40 mg PO DAILY@0630 #90 caps 11/07/24 release gabapentin 300 mg capsule 300 mg PO BID 30 days #60 caps 11/10/24 docusate sodium 100 mg capsule 100 mg PO BID #20 caps 11/17/24 (Colace) clindamycin HCl 300 mg capsule 300 mg PO Q8H 7 days #21 caps 11/21/24 (Cleocin HCl) prednisone 20 mg tablet 20 mg PO DAILY #7 tabs 11/21/24 tizanidine 2 mg tablet 2 mg PO TID PRN muscle spasticity 11/21/24 #30 tabs doxycycline monohydrate 100 mg 100 mg PO BID 10 days #20 tabs 12/05/24 tablet prednisone 20 mg tablet 20 mg PO DAILY 3 days #3 tabs 12/05/24 sulfamethoxazole 800 1 tab PO BID #6 tabs 12/25/24 mg-trimethoprim 160 mg tablet (Bactrim DS) Allergies Allergy/AdvReac Type Severity Reaction Status Date / Time Penicillins (PENICILLINS) Allergy Intermediate rash Verified 12/24/24 20:36 senna Allergy Intermediate rash Verified 12/24/24 20:36 Review of Systems Review of Systems: No fever no chills no diaphoresis Yes all other systems are reviewed and are negative PMFSH Past Medical History Attestation statement: The following information was validated with the patient. Medical History Ambulates with cane Difficulty swallowing Osteoarthritis of right knee BPV (benign positional vertigo) Gait instability Cervicogenic headache Cervicalgia Vertigo Chronic kidney disease, stage III (moderate) Obesity (BMI 30-39.9) Gastritis Benign essential hypertension GERD without esophagitis Acquired hypothyroidism Constipation Lumbar spondylosis Post laminectomy syndrome Connective tissue disease Interstitial lung disease Osteopenia PAC (premature atrial contraction) Sjogrens syndrome Hypothyroid Breast cancer Raynauds disease SAMARA positive Surgical History Status post lumbar spine surgery for decompression of spinal cord History of video-assisted thoracoscopic surgery (VATS) (03/13/24) 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) Hx of colonoscopy Hx of tubal ligation H/O varicose vein stripping History of cataract surgery H/O lumpectomy Hx of cholecystectomy History of back surgery Family History Family History Father Emphysema of lung Cancer Brother Emphysema of lung Mother Bone cancer Son PONV (postoperative nausea and vomiting) Other Arthritis Social History Social History Household Members: Significant Other and Children Housing: Apartment Are you a primary adult live in caregiver to a significant other at home: No Do you presently have visiting nurse or other home services: Yes (CHILD AND ADOLESCENT PSYCHOLOGIST 4 days a week, 2.5 hours) Alcohol intake: never Comment: pt reports this is her baseline pain Patient Tobacco Use Status: Never used Tobacco Smoked in Last 30 Days: No e-Cigarette/Vaping Use: Never Used Second Hand Smoke Exposure: No Use of substances other than those prescribed or required for medical reasons: No Advance Directives: Yes Advance Directives on File: Yes Advance Directives Date on File: 10/07/24 service: No Current occupational status: retired Cognitive needs: No Hearing needs: No Vision needs: Yes (Glasses) Physical Exam Exam: Exam: Appearance: Alert. Oriented X3. No acute distress. Eyes: Pupils equal, round and reactive to light. ENT: Pharynx normal. Neck: Normal inspection. Neck supple. No lymph nodes noted. No crepitus CVS: Normal heart rate and rhythm. Pulses normal. Normal S1 and S2 Respiratory: No respiratory distress. Breath sounds normal. No Wheezing. No rales Abdomen: Soft and nontender. No rigidity. No distention. good BS x4 Skin: Skin warm and dry. Normal skin color. Normal skin turgor. Extremities: No lower extremity edema. Neurovascular intact to all extremities. No Lacerations. No Rash Neuro: Oriented X 3. No motor deficit. No sensory deficit. Moving all extermities. No slurred speech Vital Signs: Vital Signs: Last Vital Signs Temp 98.8 F 12/24/24 20:44 Pulse 49 L 12/24/24 20:44 Resp 14 12/24/24 20:44 BP 166/58 H 12/24/24 20:44 Pulse Ox 98 12/24/24 20:44 O2 Del Method Room Air 12/24/24 20:44 BMI result Body Mass Index 36.9 Medical Decision Making Medical Decision Making MDM Narrative: Patient is 79 years old presented today with having elevated blood pressure. There is no new chest pain. There is no new shortness of breath there is no new diaphoresis. Patient from home. No fever no chills. Worry that her blood pressure is elevated. Will check 2 sets of cardiac enzymes they were the same. Patient's BNP is 200 there is no overt signs of congestive heart failure patient is hemoglobin is 11. Electrolytes showed a normal anion gap. LFTs are normal. Urine showed question UTI with significant bacteria will give antibiotics. Close follow-up on an outpatient basis. Differential Diagnosis Differential Diagnoses: The differential diagnosis associated with the presentation includes Hypertension, urinary tract infection Admission/Observation Consideration of admission/observation: Escalation of care including admission/observation considered Lab Data MDM Lab Attestation statement: I reviewed the patient's lab results. 12/24/24 20:59 12/24/24 20:59 Labs: Lab Results 12/24/24 12/24/24 Range/Units 20:59 23:29 WBC 4.6 L (4.8-10.8) X10*3/uL RBC 3.96 L D (4.20-5.50) X10*6/uL Hgb 10.9 L (12.0-16.0) g/dl Hct 33.7 L (37.0-47.0) % MCV 85.1 (80.0-98.0) fL MCH 27.5 (27.0-33.0) pg MCHC 32.3 (31.0-35.0) g/dl RDW 14.7 (11.0-16.0) % Plt Count 194 (160-400) X10*3/uL MPV 10.9 (9.4-12.3) fL Immature Gran % (Auto) 0.4 (0.0-0.4) % Neut % (Auto) 58.7 (45-73) % Lymph % (Auto) 27.6 (20-40) % Tama % (Auto) 10.5 (2-11) % Eos % (Auto) 2.6 (0-4) % Baso % (Auto) 0.2 (0-2) % Lymph # (Auto) 1.3 (1.2-4.9) X10*3/uL [place] # (Auto) 0.5 (0.1-1.2) X10*3/uL Eos # (Auto) 0.1 (0.0-0.4) X10*3/uL Baso # (Auto) 0.0 (0.0-0.2) X10*3/uL Abs Immat Gran (auto) 0.02 (0.00-0.03) X10*3/uL Absolute Neuts (auto) 2.7 (2.0-8.3) x10*3/uL Absolute Nucleated RBC 0.000 (0.0-0.012) X10*3/uL Nucleated RBC % (auto) 0.0 (0.0-0.2) /100WBC Sodium 139 (135-145) mmol/L Potassium 3.9 (3.3-5.1) mmol/L Chloride 104 (96-108) mmol/L Carbon Dioxide 27 (22-29) mmol/L Anion Gap 12 (12-20) BUN 26 H (9-16) mg/dL Creatinine 1.18 (0.5-1.4) mg/dL Estim Creat Clear Calc 47.0 Estimated GFR 44 Random Glucose 92 (60-115) mg/dL Calcium 9.3 (8.4-10.2) mg/dL Total Bilirubin 0.2 (0.0-1.0) mg/dL AST 21 (5-31) U/L ALT 13 (0-31) U/L Alkaline Phosphatase 102 (39-117) U/L Troponin I High Sens 16.2 16.6 (<3.5-17.0) ng/L B-Natriuretic Peptide 261 H (<100) pg/mL Total Protein 7.7 (6.5-8.0) g/dL Albumin 4.0 (3.5-5.0) g/dL Urine Color Yellow Urine Appearance Clear Urine pH 5.5 (5.0-9.0) Ur Specific [place] 1.010 (1.005-1.025) Urine Protein Negative (Neg-Trace) mg/dL Urine Glucose (UA) Negative (Negative) mg/dL Urine Ketones Negative (Negative) mg/dL Urine Blood Negative (Negative) Urine Nitrite Positive H (Negative) Ur Leukocyte Esterase Small (1+) H (Negative) Urine RBC 0-2 (0-2) /HPF Urine WBC 6-10 H (0-5) /HPF Ur Squamous Epith Cells 0-2 (0-2) /HPF Urine Bacteria 4+ (None Seen) Hyaline Casts 3-5 (0-2) /LPF Independent Interpretation I performed an independent interpretation of an: EKG (My interpretation patient's EKG showed a sinus rhythm heart rate is 50 AL QRS QTC within normal limits there is no changes in ST segments.) Independent Historian Additional history obtained through patient's family External Record Review Complicated by history of hypertension Prescription Management Will give antibiotics for possible UTI Social Determinants Patient?s care significantly limited by Social Determinants of Health including: Problems related to primary support group Discharge Plan Discharge Clinical Impression: Hypertension, Urinary tract infection Patient Disposition: Home, Self-Care Instructions: Hypertension (ED), Urinary Tract Infection in Older Adults (ED) Additional Instructions: Please take your antibiotics. Blood pressure recheck in 2 days. Prescriptions: New sulfamethoxazole-trimethoprim [Bactrim DS] 800-160 mg tablet 1 tab PO BID Qty: 6 0RF No Action (DME) Commode See Rx Instructions .Route .MEDSUPPLY Qty: 1 0RF Rx Instructions: As directed (DME) DISPOSABLE GLOVES - LARGE (1 box/month) LARGE See Rx Instructions .Route .MEDSUPPLY Qty: 1 5RF Rx Instructions: Use as directed (DME) DISPOSABLE BED PADS See Rx Instructions .Route .MEDSUPPLY Qty: 30 5RF Rx Instructions: Use as directed ONCE A DAY bisacodyl 5 mg tablet,delayed release (DR/EC) 5 mg PO BEDTIME 90 Days Qty: 90 1RF (DME) ROLLATOR See Rx Instructions .Route .MEDSUPPLY Qty: 1 0RF Rx Instructions: As directed amlodipine 10 mg tablet 10 mg PO DAILY 90 Days Qty: 90 3RF Rx Instructions: Has been taking 10mg for a while now. levothyroxine 125 mcg tablet 125 mcg PO DAILY@0600 Qty: 90 1RF omeprazole 40 mg capsule,delayed release(DR/EC) 40 mg PO DAILY@0630 Qty: 90 1RF Rx Instructions: TAKE 1 CAPSULE BY MOUTH EVERY DAY carvedilol 12.5 mg tablet 12.5 mg PO BID Qty: 180 3RF docusate sodium [Colace] 100 mg capsule 100 mg PO BID Qty: 20 0RF tizanidine 2 mg tablet 2 mg PO TID PRN (Reason: muscle spasticity) Qty: 30 1RF oxycodone 5 mg tablet 5 mg PO Q6H PRN (Reason: pain) Qty: 7 0RF Rx Instructions: Partial Fill upon patient request. (DME) FEMININE PADS See Rx Instructions .Route .MEDSUPPLY Qty: 6 12RF Rx Instructions: As directed (DME) MEDICATED INCONTINENCE WIPES See Rx Instructions .Route .MEDSUPPLY Qty: 100 12RF Rx Instructions: As directed multivitamin Tablet 1 tab PO DAILY calcitriol 0.5 mcg capsule 1 mcg PO WE@1645 Rx Instructions: 1 mcg orally weekly; administer after dialysis on dialysis days (DME) cane Device See Rx Instructions .Route Qty: 1 0RF Rx Instructions: As directed - use when walking gabapentin 300 mg capsule 300 mg PO BID 30 Days Qty: 60 3RF clindamycin HCl [Cleocin HCl] 300 mg capsule 300 mg PO Q8H 7 Days Qty: 21 0RF prednisone 20 mg tablet 20 mg PO DAILY Qty: 7 0RF doxycycline monohydrate 100 mg tablet 100 mg PO BID 10 Days Qty: 20 0RF prednisone 20 mg tablet 20 mg PO DAILY 3 Days Qty: 3 0RF (DME) ROLLATOR See Rx Instructions .Route .MEDSUPPLY Qty: 1 0RF Rx Instructions: As directed Referrals: Physician,Unknown J [Primary Care Provider, Medical] Referral Note: Please follow-up with your primary physician for repeat blood pressure check in approximately 2 days. Print Language: Malian
[2024-12-24 23:59] LABS: Troponin-I High Sensitivity 16.6 ng/L (<3.5-17.0)
[2024-12-25 01:36] VITALS: BP 160/55; PULSE 51; RESP 17; TEMP 36.8; O2SAT 97
[2024-12-25 01:43] VITALS: BP 160/55; PULSE 51; RESP 17; TEMP 36.8; O2SAT 97
== END 2024-12-25 01:43 | disposition home or self-care (01) ==
PROVIDERS: Emergency Provider Emergency Medicine Emergency Medical Services
DX: N39.0 Urinary tract infection, site not specified (principal); I10 Essential (primary) hypertension; N18.30 Chronic kidney disease, stage 3 unspecified; Z87.19 Personal history of other diseases of the digestive system; Z79.899 Other long term (current) drug therapy
CPT/HCPCS: 36415; 80053; 81001; 83880; 84484; 85025; 87086; 87088; 87186; 93005; 99283; 99285

== ENCOUNTER → 2024-12-24 20:28 | Outpatient (BNV) | payer OTHER, SELFPAY | PROVIDERS: Emergency Provider Emergency Medicine Emergency Medical Services; Visit Provider Internal Medicine Cardiovascular Disease | DX: I45.4 Nonspecific intraventricular block (principal); R00.1 Bradycardia, unspecified | CPT/HCPCS: 93010 ==

== ENCOUNTER 2024-12-26 11:32 | Outpatient (REF) | payer OTHER, SELFPAY ==
--- OUTSIDE RECORDS SUMMARY | 2023-03-07 08:36 | XMS_ITS | Continuity of Care Document ---
Author Organization [facility] Address [address] [place] [address] Phone Care Team Providers Care Pharmaceutical Sales Representative Name Role Phone Amanuel DURAN FACS RVT [...] Providers Copied on Encounter [facility], [address]Jose [place], [id number], [place] tel:[phone] [place] No Information 3 Amanuel DURAN FACS T SIMÓN Pinto. [address] [facility], [address], [place], [address], [place]. [phone] Referring Provider: Truong Colon MD, [address], [place], [address]. tel:[phone] Office/Outpt E&M Established 25 Mins [facility], [address] [place] [address] Dr [address] [place], [id number], [place] tel:[phone] [place] Body mass index (BMI) 34.0-34.9, adultVenous insufficiency (chronic) (peripheral) 3 Amanuel DURAN FACS oYni Pinto. [address] [place] [address], [place] [address], [place], [address], [place]. [phone] Referring Provider: Truong Colon MD, [address], [place], [address]. 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 [address] [place] [address], [address], [place], [address], [place]. [phone] Referring Provider: Truong Colon MD, [address], [place], [address]. 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 [facility] [facility], [address], [place], [address], [place]. tel:[phone] Referring Provider: Truong Colon MD, [address], [place], [address]. tel:[phone] [place] [facility], [address] [place] [address] [address]Jose [place], [id number], [place] tel:[phone] [place] Encntr for f/u exam aft trtmt for cond oth than malig neoplmVenous insufficiency (chronic) (peripheral) 3 Amanuel DURAN FACS RVT SIMÓN Pinto. [address] [facility], [facility] [address], [place], [address], [place]. [phone] Referring Provider: Truong Colon MD, [address] [place] [address] Dr [address], [place], [address]. 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 [address] [facility], [facility] [address], [place], [address], [place]. [phone] Referring Provider: Truong Colon MD, [address] [place] [address] Dr [address], [place], [address]. 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 [address] [facility], [facility] [address], [place], [address], [place]. tel:[phone] Referring Provider: Truong Colon MD, [address], [place], [address]. tel:[phone] Family History Family Member Type Diagnosis Age At Onset No Information Payers Payer name Insurance type Covered democrat ID Josefina haynes(s) [facility] [id number] Social History Type Description Quantity Date Captured [...]
--- OUTSIDE RECORDS SUMMARY | 2024-10-30 10:45 | XMS_ITS ---
Author Organization [facility] Address [address] [place] [address] Care Team Providers Care Sales Branch Manager Name Role Phone Isaiah DURAN, Truong Primary Care Provider UnaBoby Bermudez Unavailable [phone] Encounters Encounter Location Date Provider Diagnosis [facility] [address] [address] 10/30/2024 Boby Chapman Plan Of Treatment Next Appt Details Provider Name:Boby Chapman , 03/30/2025 01:30:00 PM, [address] [facility], [place] [address], [place], [address], Progress Notes * Tommie BLANCASOB:[birth year] (79 yo F)Acc No.[id number]:10/30/2024 Progress Note Patient: Jacinda NUNEZ Provider: Alex Chapman DPM :1945 A ge:79 Y S ex:Female Date:10/30/2024 Address:[address] [place] [address], [place], [id number] Pcp:Truong Colon MD Subjective: * Chief Complaints: [...] 10/30/2024 Generated for Yovanny toussaint/Daniel on: 0 12/26/2024 03:58 AM EDT
--- NOTE | ~2024-12-26 | XR_ITS ---
EXAMINATION: XR ANKLE 3 OR MORE VIEWS RIGHT HISTORY: M25.471 - Effusion, right ankle COMPARISON: There are no prior studies available for comparison. FINDINGS: Three views of the right ankle are submitted. Osseous mineralization is normal. There is no fracture or dislocation. The joint spaces are preserved. There is a small plantar calcaneal spur. The soft tissues are unremarkable. XR/XR ankle RT min 3V IMPRESSION: Small plantar calcaneal spur. Electronically signed by: Timoteo Levine MD 12/26/2024 11:55 AM EDT
--- OUTSIDE RECORDS SUMMARY | 2024-12-26 12:29 | XMS_ITS | Encounter Summary ---
Author Organization [facility] Address [address] [place] [address] Phone Care Team Providers Care Staff Scientist Name Role Phone Truong Colon MD Primary Care Provider +1- [phone] Encounter Details Date Type Department Care Team (Late Contact Info) Description 01/14/2024 Documentation Only [facility] [address] [place] [address] [place] [address] [place] [address] Social History Tobacco Use Types Packs/Day [...] [facility] [address] [place] [place] [address] Romero Jimenez MD [address] [place] [address] documented as of this encounter Visit Diagnoses Not on filedocumented in this encounter Care Teams Staff Scientist Relationship Specialty Start Date End Date Truong Colon MD [address] [place] [address] PCP - General Internal Medicine 03/06/23 documented as of this encounter
--- OUTSIDE RECORDS SUMMARY | 2024-12-26 12:29 | XMS_ITS | Encounter Summary ---
Author Organization [facility] Address [address] [place] [address] Phone Care Team Providers Care Business Banking Manager Name Role Phone Truong Colon MD Primary Care Provider +1- [phone] Encounter Details Date Type Department Care Team (Late Contact Info) Description 10/29/2023 Documentation Only [facility] [address] [place] [address] Kylie Gabriel [address] [place] [address] Social History Tobacco Use Types [...] Visit [facility] [address] [place] [address] Romero Jimenez MD [address] [place] [address] [place] [address] documented as of this encounter Visit Diagnoses Not on filedocumented in this encounter Care Teams Business Banking Manager Relationship Specialty Start Date End Date Truong Colon MD [address] [place] [address] PCP - General Internal Medicine 03/06/23 documented as of this encounter
--- OUTSIDE RECORDS SUMMARY | 2024-12-26 12:29 | XMS_ITS | Encounter Summary ---
Author Organization [facility] Address [address] [place] [address] Phone Care Team Providers Care Landscape Designer Name Role Phone Truong Colon MD Primary Care Provider +1- [phone] Encounter Details Date Type Department Care Team (Late Contact Info) Description 05/27/2024 Documentation Only [facility] [address] [place] [address] Kylie Gabriel [address] [place] [address] Social History Tobacco Use Types [...] [facility] [address] [place] [address] Romero Jimenez MD [address] [place] [address] [place] [address] documented as of this encounter Visit Diagnoses Not on filedocumented in this encounter Care Teams Landscape Designer Relationship Specialty Start Date End Date Truong Colon MD [address] [place] [address] PCP - General Internal Medicine 03/06/23 documented as of this encounter
--- OUTSIDE RECORDS SUMMARY | 2024-12-26 12:29 | XMS_ITS | Encounter Summary ---
Author Organization [facility] Address [address] [place] [address] Phone Care Team Providers Care Canine Deputy Name Role Phone Truong Colon MD Primary Care Provider +1- [phone] Encounter Details Date Type Department Care Team (Late Contact Info) Description 01/21/2024 Orders Only [facility] [address] [place] [address] Dimitris Suarez PA [address] [place] [address] [place] [address] Stage 3a chronic kidney disease [...] [facility] [address] [place] [address] Romero Jimenez MD [address] [place] [address] [place] [address] documented as of this encounter Visit Diagnoses Diagnosis Stage 3a chronic kidney disease (HCC) Essential hypertension Peripheral vascular disease (HCC) Peripheral vascular disease Renal osteodystrophy documented in this encounter Care Teams Canine Deputy Relationship Specialty Start Date End Date Truong Colon MD [address] [place] [address] PCP - General Internal Medicine 03/06/23 documented as of this encounter
--- OUTSIDE RECORDS SUMMARY | 2024-12-26 12:29 | XMS_ITS | Encounter Summary ---
Author Organization [facility] Address [address] [place] [address] Phone Care Team Providers Care Roofing Superintendent Name Role Phone Truong Colon MD Primary Care Provider +1- [phone] Encounter Details Date Type Department Care Team (Late Contact Info) Description 09/05/2024 Orders Only [facility] [address] [place] [address] Kylie Gabriel [address] [place] [address] Anemia in chronic kidney disease; [...] Visit [facility] [address] [place] [address] Romero Jimenez MD [address] [facility] [address] [facility] [place] [address] documented as of this encounter Visit Diagnoses Diagnosis Anemia in chronic kidney disease Stage 3b chronic kidney disease (HCC) Iron deficiency anemia, not otherwise specified documented in this encounter Care Teams Roofing Superintendent Relationship Specialty Start Date End Date Truong Colon MD [address] [place] [address] PCP - General Internal Medicine 03/06/23 documented as of this encounter
--- OUTSIDE RECORDS SUMMARY | 2024-12-26 12:29 | XMS_ITS | Clinical Summary ---
Author Organization [facility] Address [address] [place] [address] Care Team Providers Care Aoc Director Intelligence Officer Name Role Phone Truong Colon MD Primary Care Provider +1- [phone] Allergies Active Allergy Reactions Criticality Noted Date [...] age to complete this topic Care Teams Aoc Director Intelligence Officer Relationship Specialty Start Date End Date Truong Colon MD [address] [place] [address] PCP - General Internal Medicine 05/19/22
--- OUTSIDE RECORDS SUMMARY | 2024-12-26 12:29 | XMS_ITS | Encounter Summary ---
Author Organization [facility] Address [address] [place] [address] Phone Care Team Providers Care Car Sales Consultant Name Role Phone Truong Colon MD Primary Care Provider +1- [phone] Encounter Details Date Type Department Care Team (Late Contact Info) Description 05/04/2022 Documentation Only [facility] [address] [place] [address] Kylie Gabriel [address] [place] [address] Social History Tobacco Use Types [...] [facility] [address] [place] [address] Romero Jimenez MD [address] [place] [address] [place] [address] documented as of this encounter Visit Diagnoses Not on filedocumented in this encounter Care Teams Car Sales Consultant Relationship Specialty Start Date End Date Truong Colon MD [address] [place] [address] PCP - General Internal Medicine 03/06/23 documented as of this encounter
--- OUTSIDE RECORDS SUMMARY | 2024-12-26 12:29 | XMS_ITS | Encounter Summary ---
Author Organization [facility] Address [address] [place] [address] Phone Care Team Providers Care Mainframe Architect Name Role Phone Truong Colon MD Primary Care Provider +1- [phone] Encounter Details Date Type Department Care Team (Late Contact Info) Description 08/04/2024 Documentation Only [facility] [address] [place] [address] Kylie Gabriel [address] [place] [address] Social History Tobacco Use Types [...] [facility] [address] [place] [address] Romero Jimenez MD [address] [place] [address] [place] [address] documented as of this encounter Visit Diagnoses Not on filedocumented in this encounter Care Teams Mainframe Architect Relationship Specialty Start Date End Date Truong Colon MD [address] [place] [address] PCP - General Internal Medicine 03/06/23 documented as of this encounter
--- OUTSIDE RECORDS SUMMARY | 2024-12-26 12:29 | XMS_ITS | Encounter Summary ---
Author Organization [facility] Address [address] [place] [address] Phone Care Team Providers Care Flexible Nanny Name Role Phone Truong Colon MD Primary Care Provider +1- [phone] Encounter Details Date Type Department Care Team (Late Contact Info) Description 05/12/2021 Documentation Only [facility] [address] [place] [address] Eligio Meza MD [address] [place] [address] [place] [address] Social History Tobacco Use Types [...] [facility] [address] [place] [place] [address] Romero Jimenez MD [address] [facility] [place] [address] documented as of this encounter Visit Diagnoses Not on filedocumented in this encounter Care Teams Flexible Nanny Relationship Specialty Start Date End Date Truong Colon MD [address] [place] [address] PCP - General Internal Medicine 03/06/23 documented as of this encounter
--- OUTSIDE RECORDS SUMMARY | 2024-12-26 12:29 | XMS_ITS | Encounter Summary ---
Author Organization [facility] Address [address] [place] [address] Phone Care Team Providers Care Transmission And Coordination Engineer Name Role Phone Truong Colon MD Primary Care Provider +1- [phone] Encounter Details Date Type Department Care Team (Late Contact Info) Description 04/14/2022 Documentation Only [facility] [address] [place] [address] Eligio Meza MD [address] [place] [address] [place] [address] Social History Tobacco Use Types [...] [facility] [address] [place] [place] [address] Romero Jimenez MD [address] [facility] [place] [address] documented as of this encounter Visit Diagnoses Not on filedocumented in this encounter Care Teams Transmission And Coordination Engineer Relationship Specialty Start Date End Date Truong Colon MD [address] [place] [address] PCP - General Internal Medicine 03/06/23 documented as of this encounter
--- OUTSIDE RECORDS SUMMARY | 2024-12-26 12:29 | XMS_ITS | Encounter Summary ---
Author Organization [facility] Address [address] [place] [address] Phone Care Team Providers Care Service Order Expediter Name Role Phone Truong Colon MD Primary Care Provider +1- [phone] Encounter Details Date Type Department Care Team (Late Contact Info) Description 10/03/2024 Orders Only [facility] [address] [place] [address] Kylie Gabriel [address] [place] [address] Anemia in chronic kidney disease; [...] Visit [facility] [address] [place] [address] Romero Jimenez MD [address] [facility] [place] [address] documented as of this encounter Visit Diagnoses Diagnosis Anemia in chronic kidney disease Stage 3b chronic kidney disease (HCC) Iron deficiency anemia, not otherwise specified documented in this encounter Care Teams Service Order Expediter Relationship Specialty Start Date End Date Truong Colon MD [address] [place] [address] PCP - General Internal Medicine 03/06/23 documented as of this encounter
--- OUTSIDE RECORDS SUMMARY | 2024-12-26 12:29 | XMS_ITS ---
Author Organization [employer] [facility] Address [address] [place] [address] Care Team Providers Care Web Ui Software Engineer Name Role Phone Truong Colon MD Primary Care Provider +1- [phone] Active Problems Problem Noted Date Diagnosed Date Iron deficiency anemia 05/18/2022 Malignant neoplasm of upper- outer quadrant of left breast in female, estrogen receptor positive 03/28/2017 Gastroesophageal reflux disease without esophagi tis 03/28/2017 Acquired hypothyroidism 03/28/2017 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 Current Oncology Plans No current plan information found. Past Plans Radiation Treatments * No radiation treatments are documented for this patient in [facility]. Treatments may have been administered in another system.
--- OUTSIDE RECORDS SUMMARY | 2024-12-26 12:29 | XMS_ITS | Clinical Summary ---
Author Organization [facility] Address [address] [place] [address] Phone Care Team Providers Care Proposal Manager Writer Name Role Phone Truong Colon MD Primary Care Provider +1 [phone] Allergies Active Allergy Reactions Criticality Noted Date [...] left breast in female, estrogen receptor positive ([facility] V24, 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 V24, [facility] V28) (Primary Dx) 10/30/2024 Lab Requisition [facility] [address] [place] [phone] Ally Castañeda MD Spinal stenosis, site unspecified; Chronic kidney disease, unspecified 10/22/2024 Lab Requisition [facility] [address] [place] [phone] Ally Castañeda MD Spinal stenosis, site unspecified; Chronic kidney disease, unspecified 10/22/2024 Lab Requisition [facility] [address] [place] [phone] Ally Castañeda MD Essential (primary) hypertension; Anemia, unspecified 10/16/2024 Lab Requisition [facility] [address] [place] [address] Ally Castañeda MD Spinal stenosis, site unspecified; Chronic kidney disease, unspecified 10/10/2024 Lab Requisition [facility] [address] [facility] [place] [address] Ally Castañeda MD Malignant neoplasm of unspecified site of unspecified female breast ([facility] V24, [facility] V28); Hypothyroidism, unspecified; Vitamin D deficiency, unspecified; Vitamin B12 deficiency anemia, unspecified; Spinal stenosis, site unspecified; Chronic kidney disease, stage 3 unspecified ([facility] V24, [facility] V28) from Last 3 Months Surgical History Surgery Date Site/Laterality Comments LUMBAR DISC SURGERY PROCEDURE:LUMBAR DISC SURGERY Medical History Medical History Date Comments Malignant neoplasm of upper- outer quadrant of left female breast ([facility] V24, [facility] V28) DX:Malignant neoplasm of upp er-outer [...] Description 11/04/2025 10:30 AM EDT Office Visit [facility] Hematology Oncology [address] [place] [address] Jennifer Ca MD [address] [place] [address] Health Maintenance Due Date Last [...] of unspecified site of unspecified female breast ([facility] V24, [facility] V28) Hypothyroidism, unspecified Vitamin D deficiency, [...] K/mcL LAB HEMETOLOGY METHOD 10/31/2024 10:38 AM [facility] LAB RBC 3.60(L) 3.80 - 4.80 M/mcL LAB HEMETOLOGY METHOD 10/31/2024 10:38 AM [facility] LAB Hemoglobin 9.9(L) 11.5 - 16.0 g/dL LAB HEMETOLOGY METHOD 10/31/2024 10:38 AM [facility] LAB Hematocrit 32.8(L) 35.0 - 47.0 % LAB HEMETOLOGY METHOD 10/31/2024 10:38 AM [facility] MCV 90.6 79.0 - 98.0 FL LAB HEMETOLOGY METHOD 10/31/2024 10:38 AM [facility] LAB MCH 27.3 27.0 - 32.0 pcg LAB HEMETOLOGY METHOD 10/31/2024 10:38 AM [facility] LAB MCHC 30.2(L) 32.0 - 37.0 g/dL LAB HEMETOLOGY METHOD 10/31/2024 10:38 AM [facility] RDW 15.1(H) 11.0 - 15.0 % LAB HEMETOLOGY METHOD 10/31/2024 10:38 AM [facility] LAB Platelets 239 130 - 400 K/mcL LAB HEMETOLOGY METHOD 10/31/2024 10:38 AM EDT [facility] MPV 10.6 7.0 - 11.0 FL LAB HEMETOLOGY METHOD 10/31/2024 10:38 AM EDT [facility] NRBC 0.0 <1.0 % LAB HEMETOLOGY METHOD 10/31/2024 10:38 AM EDT [facility] NRBC Absolute 0.00 <0.10 K/mcL LAB HEMETOLOGY METHOD 10/31/2024 10:38 AM EDT [facility] Blood Venous blood specimen / Unknown Venipuncture / Unknown 10/31/2024 7:20 AM EDT 10/31/2024 10:27 AM EDT us Ally Castañeda MD LAB BLOOD ORDERABLES Final Resul t [facility] [address] [place] [address], * Basic metabolic panel (10/31/2024 7:20 AM EDT) Only the most recent of4 resultswithin the time period is included. Sodium 142 133 - 145 mmol/L LAB CHEMISTRY METHOD 10/31/2024 11:08 AM [facility] Potassium 4.7 3.5 - 5.5 mmol/L LAB CHEMISTRY METHOD 10/31/2024 11:08 AM [facility] Chloride 109 96 - 110 mmol/L LAB CHEMISTRY METHOD 10/31/2024 11:08 AM [facility] CO2 30 21 - 32 mmol/L LAB CHEMISTRY METHOD 10/31/2024 11:08 AM [facility] Anion Gap 3 3 - 11 LAB CHEMISTRY METHOD 10/31/2024 11:08 AM [facility] Glucose 78 70 - 100 mg/dL LAB CHEMISTRY METHOD 10/31/2024 11:08 AM EDT [facility] BUN 11 5 - 25 mg/dL LAB CHEMISTRY METHOD 10/31/2024 11:08 AM EDT [facility] Creatinine 0.92 0.50 - 1.10 mg/dL LAB CHE[facility]STR[facility] e[facility] 63 >=60 mL/min/1. 73m2 LAB CHEMISTRY METHOD 10/31/2024 11:08 AM EDT [facility] Comment:Calculation based on the Chronic Kidney Disease Epidemiology Collaboration (CKD-EPI) equation refit without adjustment for race. BUN/Creatinine Ratio 12.0 LAB CHEMISTRY METHOD 10/31/2024 11:08 AM EDT [facility] Calcium 8.9 8.5 - 10.5 mg/dL LAB CHEMISTRY METHOD [facility] Blood Venous blood specimen / Unknown Venipuncture / Unknown 10/31/2024 7:20 AM EDT 10/31/2024 10:27 AM EDT us Ally Castañeda MD LAB BLOOD ORDERABLES Final Resul t Performing Organization Address City/[facility]/ZIP Co de Phone Number [facility] [address] [place] [address], * (ABNORMAL) Ferritin (10/22/2024 5:26 AM EDT) Ferritin 283(H) 8 - 252 ng/mL LAB CHEMISTRY METHOD 10/22/2024 9:41 AM EDT [facility] Blood Venous blood specimen / Unknown Venipuncture / Unknown 10/22/2024 5:26 AM EDT 10/22/2024 8:36 AM EDT us Ally Castañeda MD LAB BLOOD ORDERABLES Final Resul t [facility] [address] [place] [address], [place] [phone] * Thyroid stimulating hormone with reflex to free t4 and free t3 (10/10/2024 5:37 AM EDT) [facility] TSH 2.96 0.40 - 4.00 mcIU/mL LAB CHEMISTRY METHOD 10/10/2024 1:01 PM EDT [facility] Blood Venous blood specimen / Unknown Venipuncture / Unknown 10/10/2024 5:37 AM EDT 10/10/2024 9:30 AM EDT us Ally Castañeda MD LAB BLOOD ORDERABLES Final Resul t Performing Organization Address City/[facility]/ZIP Co de Phone Number [facility] [address] [place] [address], [place] [phone] * Vitamin D 25 hydroxy (10/10/2024 5:37 AM EDT) [facility] Vit D, 25-Hydroxy 52.0 30.0 - 80.0 ng/mL LAB CHEMISTRY METHOD 10/10/2024 1:00 PM EDT [facility] Blood Venous blood specimen / Unknown Venipuncture / Unknown 10/10/2024 5:37 AM EDT 10/10/2024 9:30 AM EDT us Ally Castañeda MD LAB BLOOD ORDERABLES Final Resul t [facility] [address] [place] [address], [place] [phone] * Folate (10/10/2024 5:37 AM EDT) [facility] Folate 12.9 2.8 - 17.0 ng/ml LAB CHEMISTRY METHOD 10/10/2024 11:35 AM EDT [facility] Blood Venous blood specimen / Unknown Venipuncture / Unknown 10/10/2024 5:37 AM EDT 10/10/2024 9:30 AM EDT us Ally Castañeda MD LAB BLOOD ORDERABLES Final Resul t Performing Organization Address City/[facility]/ZIP Co de Phone Number [facility] [address] [place] [address], [place] [phone] * Vitamin B12 (10/10/2024 5:37 AM EDT) [facility] Vitamin B-12 371 250 - 900 pcg/mL LAB CHEMISTRY METHOD 10/10/2024 11:35 AM EDT [facility] Blood Venous blood specimen / Unknown Venipuncture / Unknown 10/10/2024 5:37 AM EDT 10/10/2024 9:30 AM EDT us Ally Castañeda MD LAB BLOOD ORDERABLES Final Resul t Performing Organization Address City/[facility]/ZIP Co de Phone Number [facility] [address] [place] [address], [place] [phone] * (ABNORMAL) Comprehensive metabolic panel (10/10/2024 5:37 AM EDT) [facility] Sodium 130(L) 133 - 145 mmol/L LAB CHEMISTRY METHOD 10/10/2024 11:35 AM EDT [facility] Potassium 4.9 3.5 - 5.5 mmol/L LAB CHEMISTRY METHOD 10/10/2024 11:35 AM EDT [facility] Chloride 97 96 - 110 mmol/L LAB CHEMISTRY METHOD 10/10/2024 11:35 AM EDT [facility] CO2 28 21 - 32 mmol/L LAB CHEMISTRY METHOD 10/10/2024 11:35 AM EDT [facility] Anion Gap 5 3 - 11 LAB CHEMISTRY METHOD 10/10/2024 11:35 AM EDT [facility] Glucose 82 70 - 100 mg/dL LAB CHEMISTRY METHOD 10/10/2024 11:35 AM [facility] BUN 37(H) 5 - 25 mg/dL LAB CHEMISTRY METHOD 10/10/2024 11:35 AM [facility] Creatinine 1.16(H) 0.50 - 1.10 mg/dL LAB CHEMISTRY METHOD 10/10/2024 11:35 AM [facility] eGFR 47(L) >=60 mL/min/1. 73m2 LAB CHEMISTRY METHOD 10/10/2024 11:35 AM [facility] LAB Comment:Calculation based on the Chronic Kidney Disease Epidemiology Collaboration (CKD-EPI) equation refit without adjustment for race. BUN/Creatinine Ratio 31.9 LAB CHEMISTRY METHOD 10/10/2024 11:35 AM [facility] Calcium 8.9 8.5 - 10.5 mg/dL LAB CHEMISTRY METHOD 10/10/2024 11:35 AM [facility] AST (SGOT) 42 10 - 42 unit/L LAB CHEMISTRY METHOD 10/10/2024 11:35 AM [facility] ALT (SGPT) 48 10 - 60 unit/L LAB CHEMISTRY METHOD 10/10/2024 11:35 AM [facility] Alkaline Phosphatase 98 42 - 121 unit/L LAB CHEMISTRY METHOD 10/10/2024 11:35 AM [facility] Total Protein 6.3 6.0 - 8.0 g/dL LAB CHEMISTRY METHOD 10/10/2024 11:35 AM [facility] Albumin 2.3(L) 3.2 - 5.0 g/dL LAB CHEMISTRY METHOD 10/10/2024 11:35 AM [facility] Total Bilirubin 0.4 0.0 - 1.4 mg/dL LAB CHEMISTRY METHOD 10/10/2024 11:35 AM [facility] Blood Venous blood specimen / Unknown Venipuncture / Unknown 10/10/2024 5:37 AM EDT 10/10/2024 9:30 AM EDT us Ally Castañeda MD LAB BLOOD ORDERABLES Final Resul t [facility] [address] [place] [address], * DXA BONE DENSITY STUDY 1+ SITS AXIAL SKEL (10/07/2021 10:23 AM EDT) Anatomical Region Laterality Modality Bone Densitometr y 05/10/2021 11:5 1 AM EST Narrative 10/07/2021 4:32 PM EDT Clinical history: other osteoporosis Scans of the lumbar spine and hips were performed on a [employer] fan beam bone densitometer. Bone mineral density [...] spine and hips were performed on a [employer] beam bone densitometer. Bone mineral density measurements [...] Group ID:[id number] Type:Not on file Address: [address] [place] [address] Care Teams Proposal Manager Writer Relationship Specialty Start Date End Date Truong Colon MD [address] [place] [address] [address] [place] PCP - General 05/19/22
--- OUTSIDE RECORDS SUMMARY | 2024-12-26 12:29 | XMS_ITS | Encounter Summary ---
Author Organization [facility] Address [address] [place] [address] Phone Care Team Providers Care Product Transfer Pumper Name Role Phone Truong Colon MD Primary Care Provider +1- [phone] Encounter Details Date Type Department Care Team (Late Contact Info) Description 12/21/2021 Documentation Only [facility] [address] [place] [address] Dimitris Suarez PA [address] [place] [address] Social History Tobacco Use Types [...] Visit [facility] [address] [place] [address] Romero Jimenez MD [address] [facility] [place] [address] documented as of this encounter Visit Diagnoses Not on filedocumented in this encounter Care Teams Product Transfer Pumper Relationship Specialty Start Date End Date Truong Colon MD [address] [place] [address] PCP - General Internal Medicine 03/06/23 documented as of this encounter
--- OUTSIDE RECORDS SUMMARY | 2024-12-26 12:29 | XMS_ITS | Encounter Summary ---
Author Organization [facility] Address [address] [place] [address] Phone Care Team Providers Care Manager Economic Name Role Phone Truong Colon MD Primary Care Provider +1- [phone] Encounter Details Date Type Department Care Team (Late Contact Info) Description 04/04/2024 Documentation Only [facility] [address] [place] [address] Jasmin Dumont [address] [place] [address] Social History Tobacco Use Types [...] [facility] [address] [place] [address] Romero Jimenez MD [address] [place] [address] [place] [address] documented as of this encounter Visit Diagnoses Not on filedocumented in this encounter Care Teams Manager Economic Relationship Specialty Start Date End Date Truong Colon MD [address] [place] [address] PCP - General Internal Medicine 03/06/23 documented as of this encounter
--- OUTSIDE RECORDS SUMMARY | 2024-12-26 12:29 | XMS_ITS | Encounter Summary ---
Author Organization [facility] Address [address] [place] [address] Phone Care Team Providers Care Oracle Applications Analyst Name Role Phone Truong Colon MD Primary Care Provider +1- [phone] Encounter Details Date Type Department Care Team (Late Contact Info) Description 04/10/2024 Documentation Only [facility] [address] [place] [address] Kylie Gabriel [address] [place] [address] Social History Tobacco Use Types [...] [facility] [address] [place] [address] Romero Jimenez MD [address] [place] [address] [place] [address] documented as of this encounter Visit Diagnoses Not on filedocumented in this encounter Care Teams Oracle Applications Analyst Relationship Specialty Start Date End Date Truong Colon MD [address] [place] [address] PCP - General Internal Medicine 03/06/23 documented as of this encounter
--- OUTSIDE RECORDS SUMMARY | 2024-12-26 12:29 | XMS_ITS | Patient Health Record ---
Author Organization [facility] Address [address] [place] [address] Care Team Providers Care Cafe Attendant Name Role Phone Radha Pena Primary Care Provider Timoteo Schneider Unavailable [phone] Allergies Allergen (clinical drug ingredient) Drug/Non Drug [...] Problem Status W/U Status Risk Notes Problem [id number] Encounter for screening for malignant neoplasm of colon (Z12.11) Active confirmed Problem Screening for malignant neoplasm of rectum (692233793) Encounter for screening for malignant neoplasm of rectum (Z12.12) Active confirmed Problem [id number] Gastroesophageal reflux disease, esophagitis presence not specified (K21.9) Active confirmed Problem 30220093 Constipation, unspecified constipation type (K59.00) Active confirmed Plan Of Treatment Future Test Test Name Order Date UPPER GI ENDOSCOPY 11/30/2015 COLONOSCOPY 11/30/2015 Insurance Providers Payer Name Payer Address Payer Phone Subscriber Number Group Number Insured Name Patient Relationship to Insured Coverage Start Date Coverage End Date [facility] [address] [place] [address] [id number] NOE SALDIVAR Self - patient is the insured Medical (General) History Medical History History ICD Code Hypertension Kidney disease--mild renal insuffciency- -GFR of 40--Dr. Meza Denies VA,DM,CVA,Lung disease Neg. colonoscopy in 2004 exc ept for diverticulosis and internal hemorrhoids-- Neg. EGD in 2004--Dr. Bear Breast cancer on the left in 2013--[place] ctomy and XRT Hypothyroidism GERD Surgical History Surgery Date(Month/Year) Cholecystectomy--Dr. Banks 2014 Bladder suspension Left lumpectomy for breast cancer in 4
--- OUTSIDE RECORDS SUMMARY | 2024-12-26 12:29 | XMS_ITS | Encounter Summary ---
Author Organization [facility] Address [address] [place] [address] Phone Care Team Providers Care Psychologist Chief Name Role Phone Truong Colon MD Primary Care Provider +1- [phone] Encounter Details Date Type Department Care Team (Late Contact Info) Description 06/03/2024 Documentation Only [facility] [address] [place] [address] Kylie Gabriel [address] [place] [address] Social History Tobacco Use Types [...] [facility] [address] [place] [address] Romero Jimenez MD [address] [place] [address] [place] [address] documented as of this encounter Visit Diagnoses Not on filedocumented in this encounter Care Teams Psychologist Chief Relationship Specialty Start Date End Date Truong Colon MD [address] [place] [address] PCP - General Internal Medicine 03/06/23 documented as of this encounter
--- OUTSIDE RECORDS SUMMARY | 2024-12-26 12:29 | XMS_ITS | Encounter Summary ---
Author Organization [facility] [place] [address] Care Team Providers Care Nanoelectronics Engineer Name Role Phone Truong Colon MD Primary Care Provider Encounter Details Date Type Department Care Team (Late Contact Info) Description 10/30/[address] [facility] [address] [facility] [place] [address] Ally Castañeda MD [address] [place] [address] Spinal stenosis, site unspecified; Chronic [...] Office Visit [facility] Hematology Oncology [address] [place] [address] Jennifer Ca MD [address] [place] [address] [phone] (work) documented as of this encounter Procedures [...] 10/31/2024 11:08 AM [facility] Anion Gap 3 3 [...] LAB CHEMISTRY METHOD 10/31/2024 11:08 AM EDT [facility] Calcium 8.9 8.5 - 10.5 mg/dL LAB CHEMISTRY METHOD 10/31/2024 11:08 AM [facility] Blood Venous blood specimen / Unknown Venipuncture / Unknown 10/31/2024 7:20 AM EDT 10/31/2024 10:27 AM EDT us Ally Castañeda MD LAB BLOOD ORDERABLES Final Resul t [facility] [address] [place] [address], * (ABNORMAL) Complete blood count (10/31/2024 7:20 [...] LAB HEMETOLOGY METHOD 10/31/2024 10:38 AM EDT [facility] RDW 15.1(H) 11.0 - 15.0 % LAB HEMETOLOGY METHOD 10/31/2024 10:38 AM EDT [facility] Platelets 239 130 - 400 K/mcL LAB HEMETOLOGY METHOD 10/31/2024 10:38 AM EDT [facility] MPV 10.6 7.0 - 11.0 FL LAB HEMETOLOGY METHOD 10/31/2024 10:38 AM EDT [facility] NRBC 0.0 <1.0 % LAB HEMETOLOGY METHOD 10/31/2024 10:38 AM EDT [facility] NRBC Absolute 0.00 <0.10 K/mcL LAB HEMETOLOGY METHOD 10/31/2024 10:38 AM EDT [facility] Blood Venous blood specimen / Unknown Venipuncture / Unknown 10/31/2024 7:20 AM EDT 10/31/2024 10:27 AM EDT us Ally Castañeda MD LAB BLOOD ORDERABLES Final Resul t [facility] [address] [place] [address], documented in this encounter Visit Diagnoses Diagnosis Spinal stenosis, site unspecified Chronic kidney disease, unspecified documented in this encounter Care Teams Nanoelectronics Engineer Relationship Specialty Start Date End Date Truong Colon MD [address] [place] PCP - General 05/19/22 documented as of this encounter
--- OUTSIDE RECORDS SUMMARY | 2024-12-26 12:29 | XMS_ITS | Encounter Summary ---
Author Organization [facility] Address [address] [place] [address] Phone Care Team Providers Care Lube Man Name Role Phone Truong Colon MD Primary Care Provider +1- [phone] Encounter Details Date Type Department Care Team (Late Contact Info) Description 08/12/2024 Documentation Only [facility] [address] [place] [address] [place] [address] [place] [address] Social History Tobacco Use Types Packs/Day [...] Services Of [address] [place] [address] Romero Jimenez MD [address] [place] [address] [place] [address] documented as of this encounter Visit Diagnoses Not on filedocumented in this encounter Care Teams Lube Man Relationship Specialty Start Date End Date Truong Colon MD [address] [place] [address] PCP - General Internal Medicine 03/06/23 documented as of this encounter
--- OUTSIDE RECORDS SUMMARY | 2024-12-26 12:29 | XMS_ITS | Encounter Summary ---
Author Organization [facility] Address [address] [place] [address] Phone Care Team Providers Care Fire Sprinkler Apparatus Inspector Name Role Phone Truong Colon MD Primary Care Provider +1- [phone] Encounter Details Date Type Department Care Team (Late Contact Info) Description 08/08/2024 Orders Only [facility] [address] [place] [address] Kylie Gabriel [address] [place] [address] Anemia in chronic kidney disease; [...] Visit [facility] [address] [place] [address] Romero Jimenez MD [address] [place] [address] documented as of this encounter Visit Diagnoses Diagnosis Anemia in chronic kidney disease Stage 3b chronic kidney disease (HCC) Iron deficiency anemia, not otherwise specified documented in this encounter Care Teams Fire Sprinkler Apparatus Inspector Relationship Specialty Start Date End Date Truong Colon MD [address] [place] [address] PCP - General Internal Medicine 03/06/23 documented as of this encounter
--- OUTSIDE RECORDS SUMMARY | 2024-12-26 12:29 | XMS_ITS | Encounter Summary ---
Author Organization [facility] Address [address] [place] [address] Phone Care Team Providers Care Compliance Attorney Name Role Phone Truong Colon MD Primary Care Provider +1- [phone] Encounter Details Date Type Department Care Team (Late Contact Info) Description 01/31/2024 Documentation Only [facility] [address] [place] [address] Kylie Gabriel [address] [place] [address] Social History Tobacco Use Types [...] [facility] [address] [place] [address] Romero Jimenez MD [address] [place] [address] [place] [address] documented as of this encounter Visit Diagnoses Not on filedocumented in this encounter Care Teams Compliance Attorney Relationship Specialty Start Date End Date Truong Colon MD [address] [place] [address] PCP - General Internal Medicine 03/06/23 documented as of this encounter
--- OUTSIDE RECORDS SUMMARY | 2024-12-26 12:29 | XMS_ITS | Encounter Summary ---
Author Organization [facility] Address [address] [place] [address] Phone Care Team Providers Care Outpatient Therapist Name Role Phone Truong Colon MD Primary Care Provider +1- [phone] Encounter Details Date Type Department Care Team (Late Contact Info) Description 12/26/2024 Orders Only [facility] [address] [place] [address] Kylie Gabriel [address] [place] [address] Anemia in chronic kidney disease; [...] [facility] [address] [place] [address] Romero Jimenez MD [address] [place] [address] documented as of this encounter Visit Diagnoses Diagnosis Anemia in chronic kidney disease Stage 3b chronic kidney disease (HCC) Iron deficiency anemia, not otherwise specified documented in this encounter Care Teams Outpatient Therapist Relationship Specialty Start Date End Date Truong Colon MD [address] [place] [address] PCP - General Internal Medicine 03/06/23 documented as of this encounter
--- OUTSIDE RECORDS SUMMARY | 2024-12-26 12:29 | XMS_ITS | Encounter Summary ---
Author Organization [facility] Address [address] [place] [address] Phone Care Team Providers Care Developer Automatic Name Role Phone Truong Colon MD Primary Care Provider +1- [phone] Encounter Details Date Type Department Care Team (Late Contact Info) Description 05/16/2024 Orders Only [facility] [address] [place] [address] Kylie Gabriel [address] [place] [address] Anemia in chronic kidney disease; [...] [facility] [address] [place] [address] Romero Jimenez MD [address] [place] [address] documented as of this encounter Visit Diagnoses Diagnosis Anemia in chronic kidney disease Stage 3b chronic kidney disease (HCC) Iron deficiency anemia, not otherwise specified documented in this encounter Care Teams Developer Automatic Relationship Specialty Start Date End Date Truong Colon MD [address] [place] [address] PCP - General Internal Medicine 03/06/23 documented as of this encounter
--- OUTSIDE RECORDS SUMMARY | 2024-12-26 12:29 | XMS_ITS | Encounter Summary ---
Author Organization [facility] Address [address] [place] [address] Phone Care Team Providers Care Hl7 Developer Name Role Phone Truong Colon MD Primary Care Provider +1- [phone] Encounter Details Date Type Department Care Team (Late Contact Info) Description 04/10/2024 Documentation Only [facility] [address] [place] [address] Kylie Gabriel [address] [place] [address] Social History Tobacco Use Types [...] [facility] [address] [place] [address] Romero Jimenez MD [address] [place] [address] [place] [address] documented as of this encounter Visit Diagnoses Not on filedocumented in this encounter Care Teams Hl7 Developer Relationship Specialty Start Date End Date Truong Colon MD [address] [place] [address] PCP - General Internal Medicine 03/06/23 documented as of this encounter
--- OUTSIDE RECORDS SUMMARY | 2024-12-26 12:29 | XMS_ITS | Encounter Summary ---
Author Organization [facility] Address [address] [place] [address] Phone Care Team Providers Care Bpm Architect Name Role Phone Truong Colon MD Primary Care Provider +1- [phone] Encounter Details Date Type Department Care Team (Late Contact Info) Description 11/09/2021 Documentation Only [facility] [address] [place] [address] Dimitris Suarez PA [address] [place] [address] Social History Tobacco Use Types [...] Visit [facility] [address] [place] [address] Romero Jimenez MD [address] [facility] [address] [place] [address] documented as of this encounter Visit Diagnoses Not on filedocumented in this encounter Care Teams Bpm Architect Relationship Specialty Start Date End Date Truong Colon MD [address] [place] [address] PCP - General Internal Medicine 03/06/23 documented as of this encounter
--- OUTSIDE RECORDS SUMMARY | 2024-12-26 12:29 | XMS_ITS | Encounter Summary ---
Author Organization [facility] Address [address] [place] [address] Encounters * CPT with [facility] on 2024-12-25 { reasonForRequest : high bp , patientReports : Palpitations, feeling dizzy; Chest pain, increased fatigue , denies :[ History of Heart Attack, in the setting of active chest pain , Active Chest pain, radiates to neck jaw and or arm", Diaphoretic/Sweating , Describes as crushing , Sudden onset of nausea/Vomiting and shortness of breath. , Shortness of Breath , Unable to speakin full sentences without distress , CHF history, increased swelling and edema ,&quot ;Weakness/tachycardia ], chiefComplaints : High Blood Pressure , pmh&q uot;: Hypertension, Osteoarthritis , allergies : Penicillins , ot herAllergies :null, painAssessment : , visitOutcome : &quot ;, additionalComments : 79 y.o female reporting high blood pressure 163/57. Takes b/p meds BID. Coreg 12.5 mg BID amlodipine 10 mg once daily \nc/o headache, chest pain in middle of chest non-radiating. denies dizziness/lightheadedness\nPMH: anemia, thyroid disorder, arthritis.\nNo blood thinner and no CKD.\n\nI provided information on the mobile health provider response time and advised the patient and/or caregiver to monitor reported signs and symptoms. I discussed the warning signs of when to seek emergency care. } Sent to a call for a pt complaining of hypertension. [facility] arrives on scene, pt is alert and oriented, airway is patent. Pt complains of headache x 3 weeks, constant left side chest pain described as pressure, dizziness when going from sitting to standing x 1 week. Pt states she has been stressed fora couple weeks, and symptoms worsened today after an upsetting experience at the dentist today. Pt denies vision changes, sob, n/v/d, abd pain, black/bloody stool, fever, or loc. (sitting) BP:160/75,P:67, RR:18, SpO2:100% RA, T:97.7; (standing) BP:123/74, P:57; Head: unremarkable; Lung sounds: clear bilaterally; Chest: no tenderness; Abdomen: soft, non-tender, no distention; Back: unremarkable; E xtremities: unremarkable; Skin: pink, warm, dry; 12 lead [facility] C consulted andpt is advised she needs to be transported to ED for further eval. Pt agrees to transport, but was hesitant to go to ED without doctor's recommendation. 911 called; Allergies verified: PCN; 5 med rights verified; Baby ASA 324mg PO administered. 20g IV placed in left AC. Pt care transferred to [facility]. IV_(FLUIDS_AND/OR_MEDICATION), MEDICATION_IM, ORAL_MEDICATION, EKG, ORTHOSTATIC_VITAL_SIGNS Written by [facility] on 2024-12-25
--- OUTSIDE RECORDS SUMMARY | 2024-12-26 12:29 | XMS_ITS | Patient Health Record ---
Author Organization [facility] camilla [place] Address [address] [place] [address] Care Team Providers Care Planner/Scheduler Name Role Phone Isaiah DURAN, [place] Primary Care Provider Boby Laguerre Unavailable [phone] Allergies Allergen (clinical drug ingredient) Drug/Non Drug [...] Problem Acquired hammer toe of right foot ([id number] ) Other hammer toe(s) (acquired), right foot (M20.41) Active confirmed Response to treatment, Improvemen t Problem Acquired hammer toe of left foot ([id number] ) Other hammer toe(s) (acquired), left foot (M20.42) Active confirmed Response to treatment, Improvemen t Problem Bilateral atherosclerosis of arteries of lower limbs (disorder) ([id number]) Atherosclerosis of [place] artery of both lower extremities, with unspecified presence of clinical manifestation (I70.203) Active confirmed Vital Signs Blood pressure diastolic 64 mm Hg 12/15/2024 Height 5 ft 9in in 12/15/2024 Blood pressure systolic 127 mm Hg 12/15/2024 Weight 230 lbs 12/15/2024 BMI 33.96 kg/m2 12/15/2024 Procedures Procedure Date Ordered Date Performed Result Body Sit e 89715-AFKNMLY NAIL, 6 OR MORE 01/24/2024 N/A 56936-Mkjj Destruction, 1-14 01/24/2024 N/A 58013-RLME SKIN LESIONS, OVER 4 01/24/2024 N/A 95698-BXIIKOV NAIL, 6 OR MORE 05/05/2024 N/A 19986-HMAZ SKIN LESIONS, OVER 4 05/05/2024 N/A 52072-OTDHVGI NAIL, 6 OR MORE 07/31/2024 N/A 96734-UVTD SKIN LESIONS, OVER 4 07/31/2024 N/A 66554-IWYZFMF NAIL, 6 OR MORE 12/15/2024 N/A 53216-JZYM SKIN LESIONS, OVER 4 12/15/2024 N/A Encounters Encounter Location Date Provider Diagnosis [address] [address] 01/24/2024 Boby Chapman Atherosclerosis of [place] artery of both lower extremities, with unspecified presence of clinical manifestation I70.203 ; Plantar wart B07.0 ; Tinea unguium B35.1 ; Pain in right toe(s) M79.674 ; Pain in left toe(s) M79.675 ; Left foot pain M79.672 and Xerosis of skin L85.[address] [address] 05/05/2024 Boby Chapman Atherosclerosis of [place] artery of both lower extremities, with unspecified presence of clinical manifestation I70.203 ; Tinea unguium B35.1 ; Pain in right toe(s) M79.674 ; Pain in left toe(s) M79.675 ; Other hammer toe(s) (acquired), right foot M20.41 and Other hammer toe(s) (acquired), left foot M20.[address] [address] 07/31/2024 Boby Chapman Atherosclerosis of [place] artery of both lower extremities, with unspecified presence of clinical manifestation I70.203 ; Tinea unguium B35.1 ; Pain in right toe(s) M79.674 ; Pain in left toe(s) M79.675 ; Other hammer toe(s) (acquired), right foot M20.41 and Other hammer toe(s) (acquired), left foot M20.[address] [place] [address] 12/15/2024 Boby Chapman Atherosclerosis of [place] artery of both lower extremities, with unspecified presence of clinical manifestation I70.203 ; Tinea unguium B35.1 ; Pain in right toe(s) M79.674 and Pain in left toe(s) M79.675 [facility] [address] [place] [address] 10/30/2024 Boby Chapman Assessments Encounter Date Diagnosis (ICD Code) Assessment Notes Treatment Notes Treatment Clinical Notes Section Notes 01/24/2024 Plantar wart (ICD-10 - B07.0) 01/24/2024 Atherosclerosis of [place] artery of both lower extremities, with unspecified presence of clinical manifestation (ICD-10 - I70.203) 05/05/2024 Tinea unguium (ICD-10 - B35.1) 05/05/2024 Atherosclerosis of [place] artery of both lower extremities, with unspecified presence of clinical manifestation (ICD-10 - I70.203) 07/31/2024 Tinea unguium (ICD-10 - B35.1) 07/31/2024 Atherosclerosis of [place] artery of both lower extremities, with unspecified presence of clinical manifestation (ICD-10 - I70.203) 12/15/2024 Tinea unguium (ICD-10 - B35.1) 12/15/2024 Atherosclerosis of [place] artery of both lower extremities, with unspecified [...] Treatment Pending Test Test Name Order Date 00484-RFUDCTK NAIL, 6 OR MORE 03/21/2017 91720-MGCOPSC NAIL, 6 OR MORE 05/30/2017 49533-WTOQHTL NAIL, 6 OR MORE 08/06/2017 29477-NHAWMDP NAIL, 6 OR MORE 10/25/2017 53652-VVQDXJC NAIL, 6 OR MORE 03/20/2018 67161-KDSUJXU NAIL, 6 OR MORE 06/13/2018 69522-BIFXHAY NAIL, 6 OR MORE 01/07/2018 06990-GYVBIUK NAIL, 6 OR MORE 08/14/2018 85591-ZARICWY NAIL, 6 OR MORE 10/17/2018 85344-OUTMOFZ NAIL, 6 OR MORE 01/16/2019 38830-GNINJBP NAIL, 6 OR MORE 04/03/2019 82511-RMEXHVO NAIL, 6 OR MORE 06/16/2019 12663-EIAVVSE NAIL, 6 OR MORE 08/27/2019 40877-CRTSMZE NAIL, 6 OR MORE 12/18/2019 23530-COSOJLP NAIL, 6 OR MORE 05/06/2020 85829-WDVAJRV NAIL, 6 OR MORE 07/15/2020 67673-DBVDMEI NAIL, 6 OR MORE 09/29/2020 18789-RSAKAMO NAIL, 6 OR MORE 12/02/2020 04690-YXAOVER NAIL, 6 OR MORE 02/17/2021 45451-CCEKHSH NAIL, 6 OR MORE 06/16/2021 07973-ARIBUOZ NAIL, 6 OR MORE 08/29/2021 86396-HSCOCHB NAIL, 6 OR MORE 11/10/2021 99374-JXRQHSJ NAIL, 6 OR MORE 01/19/2022 58268-HRDGTFW NAIL, 6 OR MORE 04/05/2022 57042-XUTZRFQ NAIL, 6 OR MORE 06/15/2022 15208-DJOBJAB NAIL, 6 OR MORE 08/24/2022 50117-OOTSKEQ NAIL, 6 OR MORE 11/16/2022 19275-HQCHDRC NAIL, 6 OR MORE 01/25/2023 27443-HKPMDBX NAIL, 6 OR MORE 04/11/2023 43918-WGTNBNV NAIL, 6 OR MORE 06/27/2023 67105-HXCJIJT NAIL, 6 OR MORE 08/30/2023 11917-ARCLIRL NAIL, 6 OR MORE 11/08/2023 61963-CEEJVLM NAIL, 6 OR MORE 01/24/2024 75611-YHJFZKR NAIL, 6 OR MORE 05/05/2024 42213-QQEVWCA NAIL, 6 OR MORE 07/31/2024 94117-LSRMZHB NAIL, 6 OR MORE 12/15/2024 91788-GZCFMQB NAIL, 1-5 11/01/2016 29511-FDVEHWR NAIL, -5 01/03/2017 11493-JXRFIPB NAIL, 1-5 11/15/2015 99807-XSVYORT NAIL, 1-5 01/24/2016 41343-YTCNGOO NAIL, 1-5 04/05/2016 98220-PTYSQFG NAIL, -5 06/14/2016 31856-BQBBQRX NAIL, -5 08/23/2016 23511-Hwwg Destruction, -14 11/01/2016 49650-Zqsq Destruction, -14 01/03/2017 25856-Uezd Destruction, -14 03/21/2017 49661-Dfdr Destruction, -14 05/30/2017 23959-Ycst Destruction, -14 08/06/2017 15750-Vvjm Destruction, -14 05/06/2020 45107-Muxr Destruction, -14 12/18/2019 46136-Knqi Destruction, 05-0608/27/2019 01285-Ktxf Destruction, 05-0606/16/2019 27320-Wwvp Destruction, 05-0604/03/2019 14563-Essp Destruction, 05-0601/16/2019 12107-Ntnu Destruction, 05-0610/17/2018 13653-Pzqc Destruction, 05-0608/14/2018 25979-Kylo Destruction, 05-0606/13/2018 49315-Gyqb Destruction, 05-0610/25/2017 10688-Xfhy Destruction, 05-0601/07/2018 06346-Hlew Destruction, 05-0608/30/2023 90281-Pxot Destruction, 05-0606/27/2023 76285-Nhiw Destruction, 05-0604/11/2023 56143-Ihdg Destruction, 05-0601/25/2023 94360-Pmdl Destruction, 05-0611/16/2022 96070-Hozb Destruction, 05-0608/24/2022 12587-Ysds Destruction, 05-0606/15/2022 37078-Inls Destruction, 05-0604/05/2022 99629-Bfwn Destruction, 05-0601/19/2022 58877-Upmf Destruction, 05-0606/16/2021 11911-Hdva Destruction, 05-0603/20/2018 72761-Tqvp Destruction, 05-0611/10/2021 61789-Ywgz Destruction, 05-0608/29/2021 96882-Dfub Destruction, 05-0602/17/2021 78216-Syue Destruction, 05-0612/02/2020 28458-Cnpf Destruction, 05-0609/29/2020 70315-Oati Destruction, 05-0607/15/2020 09181-Rgec Destruction, 05-0601/24/2024 13244-Rmmh Destruction, 05-0611/08/2023 05097-Fxmymdse Plate 11/08/2023 68281-Zicpsnqp Plate 09/29/2020 70685-Hyrpuvzl Plate 12/02/2020 91930-Elrylvzg Plate 02/17/2021 29992-Dmlpypqg Plate 06/16/2021 64011-Sbaawbub Plate 08/29/2021 80423-Lphiumyd Plate 11/10/2021 00039-Lvmltdvh Plate 01/19/2022 27857-Ggcenroh Plate 04/05/2022 94911-Grdzhrqk Plate 06/15/2022 59572-Lizhfnke Plate 08/24/2022 97149-Glosvphr Plate 11/16/2022 51106-Zpavjaiw Plate 01/25/2023 73637-Zkmkumpn Plate 04/11/2023 51552-Zmfdufyr Plate 06/27/2023 81598-Nbkoiwiy Plate 08/30/2023 65312-Xihlkfra Plate 12/18/2019 04480-Hfaypncv Plate 05/06/2020 22969-Jfctxgqc Plate 07/15/2020 06313-Poqeqmux Plate 11/01/2016 85012-Wemhelmt Plate Each Additional 12/2023 27899-Caqwaanh Plate Each Additional 09/2023 94560-Dwmkeoum Plate Each Additional 61106-Fpfdtpsj Plate Each Additional 08/2022 47675-Wglcwufp Plate Each Additional 70925-Xiqchyev Plate Each Additional 07/2022 58809-Lnitgccq Plate Each Additional 43420-Vfnvgzbi Plate Each Additional 02962-Jwqzrvlr Plate Each Additional 08047-Zisqzvan Plate Each Additional 80880-GVVI SKIN LESIONS, OVER 4 11/08/19 24 67345-QQJJ SKIN LESIONS, OVER 4 01/24/20 44725-WQQH SKIN LESIONS, OVER 4 05/05/19 69903-LXQN SKIN LESIONS, OVER 4 12/16/19 10730-FIEV SKIN LESIONS, OVER 4 08/01/19 50180-LDRO SKIN LESIONS, OVER 4 06/16/19 88413-SNUW SKIN LESIONS, OVER 4 01/20/20 88113-EHOU SKIN LESIONS, OVER 4 11/11/19 90881-EWUI SKIN LESIONS, OVER 4 08/30/19 11946-PTRF SKIN LESIONS, OVER 4 02/18/20 04091-WJZX SKIN LESIONS, OVER 4 12/03/19 19209-IJAK SKIN LESIONS, OVER 4 09/30/19 01619-ZMEO SKIN LESIONS, OVER 4 03/25/20 21 44985-KBPW SKIN LESIONS, OVER 4 04/05/20 22 91985-MIDP SKIN LESIONS, OVER 4 06/15/19 23 78574-LANX SKIN LESIONS, OVER 4 08/25/19 23 94273-JHQH SKIN LESIONS, OVER 4 11/17/19 23 75611-XKUP SKIN LESIONS, OVER 4 01/26/20 23 76502-CPZE SKIN LESIONS, OVER 4 04/11/20 23 24476-BTDE SKIN LESIONS, OVER 4 06/27/19 24 47723-GLRC SKIN LESIONS, OVER 4 08/30/19 24 95301-NMUS SKIN LESIONS, OVER 4 03/21/20 17 95944-LDOW SKIN LESIONS, OVER 4 01/04/20 81801-GLOX SKIN LESIONS, OVER 4 10/26/19 18 19587-ISJR SKIN LESIONS, OVER 4 08/07/19 18 43039-ZGSQ SKIN LESIONS, OVER 4 05/30/19 18 75935-EDXL SKIN LESIONS, OVER 4 11/02/19 17 36972-JBAW SKIN LESIONS, OVER 4 06/14/19 17 83145-HPNE SKIN LESIONS, OVER 4 04/05/20 16 73267-UZGF SKIN LESIONS, OVER 4 08/24/19 17 59834-WHXC SKIN LESIONS, OVER 4 01/24/20 16 26849-GAYL SKIN LESIONS, OVER 4 11/15/19 16 68574-HCRY SKIN LESIONS, OVER 4 08/16/19 16 02201-TFZM SKIN LESIONS, OVER 4 05/06/19 21 98622-IPKG SKIN LESIONS, OVER 4 12/18/19 20 66431-YBUH SKIN LESIONS, OVER 4 08/27/19 20 48161-RPQV SKIN LESIONS, OVER 4 04/03/20 19 88431-YVRN SKIN LESIONS, OVER 4 06/16/19 20 57860-WOKZ SKIN LESIONS, OVER 4 01/08/20 18 45553-AUSJ SKIN LESIONS, OVER 4 06/13/19 19 22475-XHDG SKIN LESIONS, OVER 4 08/15/19 19 36586-WEXU SKIN LESIONS, OVER 4 03/20/20 18 91955-JDKB SKIN LESIONS, OVER 4 10/18/19 19 23311-UPSV SKIN LESIONS, OVER 4 01/17/20 19 J3069-TOLZXXCB DYSTROPHIC NAILS ANY # X5000-EAZUCFYS DYSTROPHIC NAILS ANY # L8482-XIRPPALS DYSTROPHIC NAILS ANY # D8478-PUZCHNBC DYSTROPHIC NAILS ANY # E8892-OQPHNNHT DYSTROPHIC NAILS ANY # I1964-RRXMNTGK DYSTROPHIC NAILS ANY # Y4132-RTRIVYED DYSTROPHIC NAILS ANY # M6108-GAHSWPZZ DYSTROPHIC NAILS ANY # Next Appt Details Provider Name:Boby nSow Adela , 03/30/2025 01:30:00 PM, [address] [place] [address], [facility] [address], [place], [address], Insurance Providers Payer Name Payer Address Payer Phone Subscriber Number Group Number Insured Name Patient Relationship to Insured Coverage Start Date Coverage End Date [facility] [employer] Claims [address] [place] [id number] Jacinda Benavidez Self - patient is the insured Medical (General) History Medical History History ICD Code Anemia Anxiety Arthritis Back,Hip,and Knee pain Cataracts High blood pressure Liver disease Reflux Thyroid disorder Surgical History Surgery Date(Month/Year) gall bladder 12/11/2014 Unspecified Right Hand SX 03/13/17 Hospitalization History Reason Date(Month/[place] [facility] [place]03[place]24
--- OUTSIDE RECORDS SUMMARY | 2024-12-26 12:29 | XMS_ITS | Encounter Summary ---
Author Organization [facility] Address [address] [place] [address] Phone Care Team Providers Care Sales Promotion Coordinator Name Role Phone Truong Cooln MD Primary Care Provider +1- [phone] Encounter Details Date Type Department Care Team (Late Contact Info) Description 11/28/2024 Orders Only [facility] [address] [place] [address] Kylie Gabriel [address] [place] [address] Anemia in chronic kidney disease; [...] [facility] [address] [place] [address] Romero Jimenez MD [address] [place] [address] documented as of this encounter Visit Diagnoses Diagnosis Anemia in chronic kidney disease Stage 3b chronic kidney disease (HCC) Iron deficiency anemia, not otherwise specified documented in this encounter Care Teams Sales Promotion Coordinator Relationship Specialty Start Date End Date Truong Colon MD [address] [place] [address] PCP - General Internal Medicine 03/06/23 documented as of this encounter
--- OUTSIDE RECORDS SUMMARY | 2024-12-26 12:29 | XMS_ITS | Encounter Summary ---
Author Organization [facility] Address [address] [place] [address] Phone Care Team Providers Care Dairy Cattle Farmer Name Role Phone Truong Colon MD Primary Care Provider +1- [phone] Encounter Details Date Type Department Care Team (Late Contact Info) Description 04/24/2024 Documentation Only [facility] [address] [place] [address] Kylie Gabriel [address] [place] [address] Social History Tobacco Use Types [...] Visit [facility] [address] [place] [address] Romero Jimenez MD [address] [place] [address] [place] [address] documented as of this encounter Visit Diagnoses Not on filedocumented in this encounter Care Teams Dairy Cattle Farmer Relationship Specialty Start Date End Date Truogn Colon MD [address] [place] [address] PCP - General Internal Medicine 03/06/23 documented as of this encounter
--- OUTSIDE RECORDS SUMMARY | 2024-12-26 12:29 | XMS_ITS | Encounter Summary ---
Author Organization [facility] Address [address] [place] [address] Phone Care Team Providers Care Costuming Supervisor Name Role Phone Truong Colon MD Primary Care Provider +1- [phone] Encounter Details Date Type Department Care Team (Late Contact Info) Description 04/11/2022 Documentation Only [facility] [address] [place] [address] Kylie Gabriel [address] [place] [address] Social History Tobacco Use Types [...] [facility] [address] [place] [address] Romero Jimenez MD [address] [place] [address] [place] [address] documented as of this encounter Visit Diagnoses Not on filedocumented in this encounter Care Teams Costuming Supervisor Relationship Specialty Start Date End Date Truong Colon MD [address] [place] [address] PCP - General Internal Medicine 03/06/23 documented as of this encounter
--- OUTSIDE RECORDS SUMMARY | 2024-12-26 12:29 | XMS_ITS | Encounter Summary ---
Author Organization [facility] Address [address] [place] [address] Phone Care Team Providers Care Manufacturing Controls Engineer Name Role Phone Truong Colon MD Primary Care Provider +1- [phone] Encounter Details Date Type Department Care Team (Late Contact Info) Description 10/26/2023 Documentation Only [facility] [address] [place] [address] Kylie Gabriel [address] [place] [address] Social History Tobacco Use Types [...] [facility] [address] [place] [address] Romero Jimenez MD [address] [place] [address] [place] [address] documented as of this encounter Visit Diagnoses Not on filedocumented in this encounter Care Teams Manufacturing Controls Engineer Relationship Specialty Start Date End Date Truong Colon MD [address] [place] [address] PCP - General Internal Medicine 03/06/23 documented as of this encounter
--- OUTSIDE RECORDS SUMMARY | 2024-12-26 12:30 | XMS_ITS | Encounter Summary ---
Author Organization [facility] [place] [address] Care Team Providers Care Speech Coach Name Role Phone Truong Colon MD Primary Care Provider Encounter Details Date Type Department Care Team (Late Contact Info) Description 10/16/2024 Lab Requisition [facility] - Main Lab [address] [facility] [place] [address] Ally Castañeda MD [address] [place] [address] Spinal stenosis, site unspecified; Chronic [...] Description 11/04/2025 10:30 AM EDT Office Visit [facility] Hematology Oncology [address] [place] [address] Jennifer Ca MD [address] [place] [address] [phone] (work) documented as of this encounter Procedures [...] mmol/L LAB CHEMISTRY METHOD 10/17/2024 12:13 PM [facility] Potassium 5.6(H) 3.5 - 5.5 mmol/L LAB CHEMISTRY METHOD 10/17/2024 12:13 PM [facility] Chloride 103 96 - 110 mmol/L LAB CHEMISTRY METHOD 10/17/2024 12:13 PM [facility] CO2 28 21 - 32 mmol/L LAB CHEMISTRY METHOD 10/17/2024 12:13 PM [facility] Anion Gap 5 3 - 11 LAB CHEMISTRY METHOD 10/17/2024 12:13 PM [facility] Glucose 77 70 - 100 mg/dL LAB CHEMISTRY METHOD 10/17/2024 12:13 PM [facility] BUN 23 5 - 25 mg/dL LAB CHEMISTRY METHOD 10/17/2024 12:13 PM [facility] Creatinine 1.02 0.50 - 1.10 mg/dL LAB CHEMISTRY METHOD 10/17/2024 12:13 PM [facility] eGFR 55(L) >=60 mL/min/1. 73m2 LAB CHEMISTRY METHOD 10/17/2024 12:13 PM [facility] Comment:Calculation based on the Chronic Kidney Disease Epidemiology Collaboration (CKD-EPI) equation refit without adjustment for race. BUN/Creatinine Ratio 22.5 LAB CHEMISTRY METHOD 10/17/2024 12:13 PM T [facility] Calcium 8.9 8.5 - 10.5 mg/dL LAB CHEMISTRY METHOD 10/17/2024 12:13 PM [facility] Blood Venous blood specimen / Unknown Venipuncture / Unknown 10/17/2024 7:36 AM EDT 10/17/2024 11:30 AM EDT us Ally Castañeda MD LAB BLOOD ORDERABLES Final Resul t [facility] [address] [place] [address], [place] [phone] * (ABNORMAL) Complete blood count (10/17/2024 7:36 AM EDT) WBC 6.5 4.8 - 10.8 K/mcL LAB HEMETOLOGY METHOD 10/17/2024 12:00 PM [facility] RBC 3.40(L) 3.80 - 4.80 M/mcL LAB HEMETOLOGY METHOD 10/17/2024 12:00 PM [facility] Hemoglobin 9.2(L) 11.5 - 16.0 g/dL LAB HEMETOLOGY METHOD 10/17/2024 12:00 PM [facility] Hematocrit 30.9(L) 35.0 - 47.0 % LAB HEMETOLOGY METHOD 10/17/2024 12:00 PM [facility] MCV 91.2 79.0 - 98.0 FL LAB HEMETOLOGY METHOD 10/17/2024 12:00 PM [facility] MCH 27.1 27.0 - 32.0 pcg LAB HEMETOLOGY METHOD 10/17/2024 12:00 PM [facility] MCHC 29.8(L) 32.0 - 37.0 g/dL LAB HEMETOLOGY METHOD 10/17/2024 12:00 PM EDT [facility] RDW 13.2 11.0 - 15.0 % LAB HEMETOLOGY METHOD 10/17/2024 12:00 PM EDT [facility] Platelets 495(H) 130 - 400 K/mcL LAB HEMETOLOGY METHOD 10/17/2024 12:00 PM EDT [facility] MPV 10.0 7.0 - 11.0 FL LAB HEMETOLOGY METHOD 10/17/2024 12:00 PM EDT [facility] NRBC 0.0 <1.0 % LAB HEMETOLOGY METHOD 10/17/2024 12:00 PM EDT [facility] NRBC Absolute 0.00 <0.10 K/mcL LAB HEMETOLOGY METHOD 10/17/2024 12:00 PM EDT [facility] Blood Venous blood specimen / Unknown Venipuncture / Unknown 10/17/2024 7:36 AM EDT 10/17/2024 11:30 AM EDT us Ally Castañeda MD LAB BLOOD ORDERABLES Final Resul t [facility] [address] [place] [address], documented in this encounter Visit Diagnoses Diagnosis Spinal stenosis, site unspecified Chronic kidney disease, unspecified documented in this encounter Care Teams Speech Coach Relationship Specialty Start Date End Date Truong Colon MD [address] [place] [address] Dr Eric Christian [place] PCP - General 05/19/22 documented as of this encounter
--- OUTSIDE RECORDS SUMMARY | 2024-12-26 12:30 | XMS_ITS | Encounter Summary ---
Author Organization [facility] Address [address] [place] [address] Phone Care Team Providers Care Paper Cone Maker Name Role Phone Truong Colon MD Primary Care Provider +1- [phone] Encounter Details Date Type Department Care Team (Late Contact Info) Description 07/31/2024 Documentation Only [facility] [address] [place] [place] [address] Kylie Gabriel [address] [place], [place] [...] [facility] [address] [place] [place] [address] Romero Jimenez MD [address] [place] [address] [place] [address] documented as of this encounter Visit Diagnoses Not on filedocumented in this encounter Care Teams Paper Cone Maker Relationship Specialty Start Date End Date Truong Colon MD [address] [place] [address] PCP - General Internal Medicine 03/06/23 documented as of this encounter
--- OUTSIDE RECORDS SUMMARY | 2024-12-26 12:30 | XMS_ITS | Encounter Summary ---
Author Organization [facility] Address [address] [place] [address] Phone Care Team Providers Care Cut Off Saw Operator Name Role Phone Truong Colon MD Primary Care Provider +1- [phone] Encounter Details Date Type Department Care Team (Late Contact Info) Description 07/02/2024 Documentation Only [facility] [address] [place] [address] [place] [address] [place] [address] Social History Tobacco Use Types Packs/Day [...] [facility] [address] [place] [address] Romero Jimenez MD [address] [place] [address] [place] [address] documented as of this encounter Visit Diagnoses Not on filedocumented in this encounter Care Teams Cut Off Saw Operator Relationship Specialty Start Date End Date Truong Colon MD [address] [place] [address] PCP - General Internal Medicine 03/06/23 documented as of this encounter
--- OUTSIDE RECORDS SUMMARY | 2024-12-26 12:30 | XMS_ITS | Encounter Summary ---
Author Organization [facility] Address [address] [place] [address] Phone Care Team Providers Care Footwear Machinery Instructor Name Role Phone Truong Colon MD Primary Care Provider +1- [phone] Encounter Details Date Type Department Care Team (Late Contact Info) Description 07/11/2024 Orders Only [facility] [address] [address] Kylie Gabriel [address] [place] [address] Anemia in chronic kidney disease; [...] [facility] [address] [address] Romero Jimenez MD [address] [address] documented as of this encounter Visit Diagnoses Diagnosis Anemia in chronic kidney disease Stage 3b chronic kidney disease (HCC) Iron deficiency anemia, not otherwise specified documented in this encounter Care Teams Footwear Machinery Instructor Relationship Specialty Start Date End Date Truong Colon MD [address] [place] [address] PCP - General Internal Medicine 03/06/23 documented as of this encounter
--- OUTSIDE RECORDS SUMMARY | 2024-12-26 12:30 | XMS_ITS | Clinical Summary ---
Author Organization [facility] Address [address] [place] [address] [address] [place] [address] Phone Care Team Providers Care Railroad Car Checker Name Role Phone Dimple Vergara MD Primary [...] file Medical Devices Not on file Insurance [facility] MEDICARE REPLACEMENT [facility] REPLACEMENT [facility] REPLACEMENT [facility] REPLACEMENT [facility] MED[facility] REPLACEMENT [facility] MED[facility]PLACEMENT [facility] MED[facility] REPLACEMENT [facility] MEDICARE REPLACEMENT Care Teams Railroad Car Checker Relationship Specialty Start Date End Date Dimple Vergara MD [address] [place] [id number] PCP - General 11/13/13 Additional Source Comments The information contained in this document represents components of the legal health record. It is not the complete legal health record.[facility]
--- OUTSIDE RECORDS SUMMARY | 2024-12-26 12:30 | XMS_ITS | Encounter Summary ---
Author Organization [facility] [place] [address] Care Team Providers Care Qm Consultant Name Role Phone Truong Colon MD Primary Care Provider +1 [phone] Encounter Details Date Type Department Care Team (Late Contact Info) Description 10/22/2024 Lab Requisition [facility] - Main Lab 299 [facility] [place] [address] Ally Castañeda MD [address] [place], [place] [id number] Essential (primary) hypertension; Anemia, unspecified Social History [...] Description 11/04/2025 10:30 AM EDT Office Visit [facility] Hematology Oncology [address] [place] [address] Jennifer Ca MD [address] [place] [address] documented as of this encounter [...] (ABNORMAL) Ferritin (10/22/2024 5:26 AM EDT) Pathologist [facility] Ferritin 283(H) 8 - 252 ng/mL LAB CHEMISTRY METHOD 10/22/2024 9:41 AM EDT [facility] Blood Venous blood specimen / Unknown Venipuncture / Unknown 10/22/2024 5:26 AM EDT 10/22/2024 8:36 AM EDT us Ally Castañeda MD LAB BLOOD ORDERABLES Final Resul t [facility] [address] [place] [address], * (ABNORMAL) Basic metabolic panel (10/22/2024 5:26 AM EDT) Pathologist [facility] Sodium 140 133 - 145 mmol/L LAB CHEMISTRY METHOD 10/22/2024 9:41 AM EDT [facility] Potassium 5.5 3.5 - 5.5 mmol/L LAB CHEMISTRY METHOD 10/22/2024 9:41 AM EDT [facility] Chloride 107 96 - 110 mmol/L LAB CHEMISTRY METHOD 10/22/2024 9:41 AM EDT [facility] CO2 30 21 - 32 mmol/L LAB CHEMISTRY METHOD 10/22/2024 9:41 AM EDT [facility] Anion Gap 3 3 - 11 LAB CHEMISTRY METHOD 10/22/2024 9:41 AM EDT [facility] Glucose 69(L) 70 - 100 mg/dL LAB CHEMISTRY METHOD 10/22/2024 9:41 AM EDT [facility] BUN 21 5 - 25 mg/dL LAB CHEMISTRY METHOD 10/22/2024 9:41 AM EDT [facility] Creatinine 0.90 0.50 - 1.10 mg/dL LAB CHEMISTRY METHOD 10/22/2024 9:41 AM EDT [facility] eGFR 64 >=60 mL/min/1. 73m2 LAB CHEMISTRY METHOD 10/22/2024 9:41 AM EDT [facility] Comment:Calculation based on the Chronic Kidney Disease Epidemiology Collaboration (CKD-EPI) equation refit without adjustment for race. BUN/Creatinine Ratio 23.3 LAB CHEMISTRY METHOD 10/22/2024 9:41 AM [facility] Calcium 9.0 8.5 - 10.5 mg/dL LAB CHEMISTRY METHOD 10/22/2024 9:41 AM [facility] Blood Venous blood specimen / Unknown Venipuncture / Unknown 10/22/2024 5:26 AM EDT 10/22/2024 8:36 AM EDT us Ally Castañeda MD LAB BLOOD ORDERABLES Final Resul t [facility] [address] [place] [address], * (ABNORMAL) Complete blood count (10/22/2024 5:26 AM EDT) WBC 5.7 4.8 - 10.8 K/mcL LAB HEMETOLOGY METHOD 10/22/2024 9:09 AM EDT [facility] RBC 3.20(L) 3.80 - 4.80 M/mcL LAB HEMETOLOGY METHOD 10/22/2024 9:09 AM [facility] Hemoglobin 8.6(L) 11.5 - 16.0 g/dL LAB HEMETOLOGY METHOD 10/22/2024 9:09 AM [facility] Hematocrit 28.7(L) 35.0 - 47.0 % LAB HEMETOLOGY METHOD 10/22/2024 9:09 AM [facility] MCV 90.8 79.0 - 98.0 FL LAB HEMETOLOGY METHOD 10/22/2024 9:09 AM [facility] MCH 27.2 27.0 - 32.0 pcg LAB HEMETOLOGY METHOD 10/22/2024 9:09 AM [facility] MCHC 30.0(L) 32.0 - 37.0 g/dL LAB HEMETOLOGY METHOD 10/22/2024 9:09 AM [facility] RDW 13.4 11.0 - 15.0 % LAB HEMETOLOGY METHOD 10/22/2024 9:09 AM [facility] Platelets 383 130 - 400 K/mcL LAB HEMETOLOGY METHOD 10/22/2024 9:09 AM [facility] MPV 10.0 7.0 - 11.0 FL LAB HEMETOLOGY METHOD 10/22/2024 9:09 AM [facility] NRBC 0.0 <1.0 % LAB HEMETOLOGY METHOD 10/22/2024 9:09 AM [facility] NRBC Absolute 0.00 <0.10 K/mcL LAB HEMETOLOGY METHOD 10/22/2024 9:09 AM [facility] Blood Venous blood specimen / Unknown Venipuncture / Unknown 10/22/2024 5:26 AM EDT 10/22/2024 8:36 AM EDT Ally Castañeda MD LAB BLOOD ORDERABLES Final Resul t [facility] [address] [place] [address], documented in this encounter Visit Diagnoses Diagnosis Essential (primary) hypertension Unspecified essential hypertension Anemia, unspecified documented in this encounter Care Teams Qm Consultant Relationship Specialty Start Date End Date Truong Colon MD [address] [place] [address] Dr [address] [place], [place] PCP - General 05/19/22 documented as of this encounter
--- OUTSIDE RECORDS SUMMARY | 2024-12-26 12:30 | XMS_ITS ---
Author Organization [facility], Address [address] [place] [address] [place] [address] Phone Care Team Providers Care Livestock Counter Name Role Phone Truong Colon MD Primary Care Provider +1- [phone] Active Problems Problem Noted Date Diagnosed Date [...]
--- OUTSIDE RECORDS SUMMARY | 2024-12-26 12:30 | XMS_ITS | Encounter Summary ---
Author Organization [facility] Address [address] [place] [address] Phone Care Team Providers Care Open Developer Operator Name Role Phone Truong Colon MD Primary Care Provider +1- [phone] Encounter Details Date Type Department Care Team (Late Contact Info) Description 10/31/2024 Orders Only [facility] [address] [place] [address] Kylie Gabriel [address] [place] [address] Anemia in chronic kidney disease; [...] [facility] [address] [place] [address] Romero Jimenez MD [address] [place] [address] documented as of this encounter Visit Diagnoses Diagnosis Anemia in chronic kidney disease Stage 3b chronic kidney disease (HCC) Iron deficiency anemia, not otherwise specified documented in this encounter Care Teams Open Developer Operator Relationship Specialty Start Date End Date Truong Colon MD [address] [place] [address] PCP - General Internal Medicine 03/06/23 documented as of this encounter
--- OUTSIDE RECORDS SUMMARY | 2024-12-26 12:30 | XMS_ITS | Encounter Summary ---
Author Organization [facility] Address [address] [place] [address] Phone Care Team Providers Care Supervisor Pipeline Name Role Phone Truong Colon MD Primary Care Provider +1- [phone] Encounter Details Date Type Department Care Team (Late Contact Info) Description 10/26/2023 Documentation Only [facility] [address] [place] [address] Kylie Gabriel [address] [place] [address] Social History Tobacco Use Types [...] [facility] [address] [place] [address] Romero Jimenez MD [address] [place] [address] [place] [address] documented as of this encounter Visit Diagnoses Not on filedocumented in this encounter Care Teams Supervisor Pipeline Relationship Specialty Start Date End Date Truong Colon MD [address] [place] [address] PCP - General Internal Medicine 03/06/23 documented as of this encounter
--- OUTSIDE RECORDS SUMMARY | 2024-12-26 12:30 | XMS_ITS | Encounter Summary ---
Author Organization [facility] Address [address] [place] [address] Phone Care Team Providers Care Electronic Commerce Specialist Name Role Phone Truong Colon MD Primary Care Provider +1- [phone] Encounter Details Date Type Department Care Team (Late Contact Info) Description 04/29/2024 Documentation Only [facility] [address] [place] [address] Britt Slo [address] [place] [address] Social History Tobacco [...] [facility] [address] [place] [address] Romero Jimenez MD [address] [place] [address] [place] [address] documented as of this encounter Visit Diagnoses Not on filedocumented in this encounter Care Teams Electronic Commerce Specialist Relationship Specialty Start Date End Date Truong Colon MD [address] [place] [address] PCP - General Internal Medicine 03/06/23 documented as of this encounter
--- OUTSIDE RECORDS SUMMARY | 2024-12-26 12:30 | XMS_ITS | Clinical Summary ---
Author Organization [facility], Address [address] [place] [address] [place] [address] Phone Care Team Providers Care Bessemer Regulator Name Role Phone Truong Colon MD Primary Care Provider +1- [phone] Allergies Active Allergy Reactions Criticality Noted Date [...] Encounters Date Type Department Care Team Description 12/26/2024 Orders Only [facility], [address] [place] [address] Kylie Gabriel Anemia in chronic kidney disease; Stage 3b chronic kidney disease (HCC); Iron deficiency anemia, not otherwise specified 12/02/2024 1:40 PM EDT Office Visit [facility] [address] [place] [id number] Romero Jimenez MD Stage 3b chronic kidney disease (HCC) (Primary Dx) 11/28/2024 Orders Only [facility] [address] [place] [address] Harvey, Kylie Anemia in chronic kidney disease; Stage 3b chronic kidney disease (HCC); Iron deficiency anemia, not otherwise specified 10/31/2024 Orders Only [facility] [address] [place] [address] Harvey, Kylie Anemia in chronic kidney disease; Stage 3b chronic kidney disease (HCC); Iron deficiency anemia, not otherwise specified 10/03/2024 Orders Only [facility] [address] [place] [address] Harvey, Kylie Anemia in chronic kidney disease; Stage 3b chronic kidney disease (HCC); Iron deficiency anemia, not otherwise specified 09/25/2024 Office Communication [facility] [address] [place] [address] Deisi Wakefield, ROGELIO 09/25/2024 Documentation Only [facility] [address] [place] [address] Deisi Wake[place], RN from Last 3 Months [...] [facility] [address] [place] [address] Romero Jimenez MD [address] [place] [address] [place] [phone] Health Maintenance Due Date Last Done Comments [...] Most Recently Relevant to Health Maintenance Insurance [facility] Care Dual SNP ([id number]) LANA VALLEJO [id number] Care Teams Bessemer Regulator Relationship Specialty Start Date End Date Truong Colon MD [address] [place] [address] PCP - General Internal Medicine 03/06/23
--- OUTSIDE RECORDS SUMMARY | 2024-12-26 12:30 | XMS_ITS | Encounter Summary ---
Author Organization [facility], Address [address] [place] [address] Phone Care Team Providers Care Interpretive Program Coordinator Name Role Phone Truong Colon MD Primary Care Provider +1- [phone] Encounter Details Date Type Department Care Team (Late Contact Info) Description 01/23/2024 Documentation Only [facility], - [address] [place] [address] Jasmin Dumont [address] [place] [address] Social History Tobacco Use Types Packs/Day [...] Visit [facility], [address] [place] [address] Romero Jimenez MD [address] [facility] [place] [address] documented as of this encounter Visit Diagnoses Not on filedocumented in this encounter Care Teams Interpretive Program Coordinator Relationship Specialty Start Date End Date Truong Colon MD [address] [place] [address] PCP - General Internal Medicine 03/06/23 documented as of this encounter
--- OUTSIDE RECORDS SUMMARY | 2024-12-26 12:30 | XMS_ITS | Encounter Summary ---
Author Organization [facility] [place] [address] Care Team Providers Care Bookkeeping Service Sales Agent Name Role Phone Truong Colon MD Primary Care Provider Encounter Details Date Type Department Care Team (Late Contact Info) Description 10/22/2024 Lab Requisition [facility] - Main Lab 299 [facility] [place] [address] Ally Castañeda MD [address] [place] [address] Spinal stenosis, site unspecified; Chronic [...] 11/04/2025 10:30 AM EDT Office Visit [facility] Hematology Oncology [address] [place] [address] Jennifer Ca MD [address] [place] [address] [phone] (work) documented as of this encounter Procedures [...] mmol/L LAB CHEMISTRY METHOD 10/23/2024 11:28 AM [facility] Potassium 4.6 3.5 - 5.5 mmol/L LAB CHEMISTRY METHOD 10/23/2024 11:28 AM [facility] Chloride 107 96 - 110 mmol/L LAB CHEMISTRY METHOD 10/23/2024 11:28 AM [facility] CO2 29 21 - 32 mmol/L LAB CHEMISTRY METHOD 10/23/2024 11:28 AM [facility] Anion Gap 4 3 - 11 LAB CHEMISTRY METHOD 10/23/2024 11:28 AM [facility] Glucose 65(L) 70 - 100 mg/dL LAB CHEMISTRY METHOD 10/23/2024 11:28 AM [facility] BUN 17 5 - 25 mg/dL LAB CHEMISTRY METHOD 10/23/2024 11:28 AM [facility] Creatinine 0.87 0.50 - 1.10 mg/dL LAB CHEMISTRY METHOD 10/23/2024 11:28 AM [facility] eGFR 67 >=60 mL/min/1. 73m2 LAB CHEMISTRY METHOD 10/23/2024 11:28 AM [facility] Comment:Calculation based on the Chronic Kidney Disease Epidemiology Collaboration (CKD-EPI) equation refit without adjustment for race. BUN/Creatinine Ratio 19.5 LAB CHEMISTRY METHOD 10/23/2024 11:28 AM EDT [facility] Calcium 8.7 8.5 - 10.5 mg/dL LAB CHEMISTRY METHOD 10/23/2024 11:28 AM [facility] Blood Venous blood specimen / Unknown Venipuncture / Unknown 10/23/2024 5:09 AM EDT 10/23/2024 10:13 AM EDT us Ally Castañeda MD LAB BLOOD ORDERABLES Final Resul t [facility] [address] [place] [address], * (ABNORMAL) Complete blood count (10/23/2024 5:09 AM EDT) WBC 4.8 4.8 - 10.8 K/mcL LAB HEMETOLOGY METHOD 10/23/2024 10:31 AM [facility] RBC 3.10(L) 3.80 - 4.80 M/mcL LAB HEMETOLOGY METHOD 10/23/2024 10:31 AM [facility] Hemoglobin 8.3(L) 11.5 - 16.0 g/dL LAB HEMETOLOGY METHOD 10/23/2024 10:31 AM [facility] Hematocrit 27.9(L) 35.0 - 47.0 % LAB HEMETOLOGY METHOD 10/23/2024 10:31 AM [facility] MCV 90.3 79.0 - 98.0 FL LAB HEMETOLOGY METHOD 10/23/2024 10:31 AM [facility] MCH 26.9(L) 27.0 - 32.0 pcg LAB HEMETOLOGY METHOD 10/23/2024 10:31 AM [facility] MCHC 29.7(L) 32.0 - 37.0 g/dL LAB HEMETOLOGY METHOD 10/23/2024 10:31 AM EDT [facility] RDW 13.7 11.0 - 15.0 % LAB HEMETOLOGY METHOD 10/23/2024 10:31 AM EDT [facility] Platelets 342 130 - 400 K/mcL LAB HEMETOLOGY METHOD 10/23/2024 10:31 AM EDT [facility] MPV 10.0 7.0 - 11.0 FL LAB HEMETOLOGY METHOD 10/23/2024 10:31 AM EDT [facility] NRBC 0.0 <1.0 % LAB HEMETOLOGY METHOD 10/23/2024 10:31 AM EDT [facility] NRBC Absolute 0.00 <0.10 K/mcL LAB HEMETOLOGY METHOD 10/23/2024 10:31 AM EDT [facility] Blood Venous blood specimen / Unknown Venipuncture / Unknown 10/23/2024 5:09 AM EDT 10/23/2024 10:13 AM EDT us Ally Castañeda MD LAB BLOOD ORDERABLES Final Resul t [facility] [address] [place] [address], documented in this encounter Visit Diagnoses Diagnosis Spinal stenosis, site unspecified Chronic kidney disease, unspecified documented in this encounter Care Teams Bookkeeping Service Sales Agent Relationship Specialty Start Date End Date Truong Colon MD [address] [place] [address] Dr [address] JAEL Christian PCP - General 05/19/22 documented as of this encounter
--- OUTSIDE RECORDS SUMMARY | 2024-12-26 12:30 | XMS_ITS | Encounter Summary ---
Author Organization [facility] [place] [address] Care Team Providers Care Pattern Cutter Name Role Phone Truong Colon MD Primary Care Provider Encounter Details Date Type Department Care Team (Late Contact Info) Description 11/06/2024 Lab Requisition [facility] - Main Lab 299 [facility] [place] [address] Ally Castañeda MD [address] [place] [address] Spinal stenosis, site unspecified; Chronic [...] [facility] Hematology Oncology [address] [place] [address] Jennifer Ca MD [address] [place] [address] documented as of this encounter Visit Diagnoses Diagnosis Spinal stenosis, site unspecified Chronic kidney disease, unspecified documented in this encounter Care Teams Pattern Cutter Relationship Specialty Start Date End Date Truong Colon MD [address] [place] [address] Dr [address] [place], [place] PCP - General 05/19/22 documented as of this encounter
--- OUTSIDE RECORDS SUMMARY | 2024-12-26 12:30 | XMS_ITS | Encounter Summary ---
Author Organization [facility] [place] [address] Care Team Providers Care Field Superintendent Name Role Phone Truong Colon MD Primary Care Provider [phone] Encounter Details Date Type Department Care Team (Late st Contact Info) Description 10/10/2024 Lab Requisition [facility] - Main Lab [address] [facility] [place] [id number] Ally Castañeda MD [address] [place] [address] Malignant neoplasm of unspecified site of unspecified female breast ([facility]/HCC V24, [facility] V28); Hypothyroidism, unspecified; Vitamin D deficiency, unspecified; [...] Description 11/04/2025 10:30 AM EDT Office Visit [facility] Hematology Oncology [address] [place] [id number] Jennifer Ca MD [address] [place] [phone] documented as of this encounter Procedures Procedure Name Priority Date/Time Associated Diagnosis Comments THYROID STIMULATING HORMONE WITH REFLEX TO FREE T4 AND FREE T3 Routine 10/10/2024 5:37 AM EDT Malignant neoplasm of unspecified site of unspecified female breast ([facility]/HCC V24, [facility]/HCC V28) Hypothyroidism, unspecified Vitamin D deficiency, unspecified Vitamin B12 deficiency anemia, unspecified Spinal stenosis, site unspecified Chronic kidney disease, stage 3 unspecified ([facility]/HCC V24, [facility]/HCC V28) VITAMIN D 25 HYDROXY Routine 10/10/2024 5:37 AM EDT Malignant neoplasm of unspecified site of unspecified female breast ([facility]/HCC V24, [facility]/HCC V28) Hypothyroidism, unspecified Vitamin D [...] site of unspecified female breast ([facility]/HCC V24, [facility]/HCC V28) Hypothyroidism, unspecified Vitamin D deficiency, unspecified Vitamin B12 deficiency anemia, unspecified Spinal stenosis, site unspecified Chronic kidney disease, stage 3 unspecified ([facility]/HCC V24, [facility]/HCC V28) VITAMIN B12 Routine 10/10/2024 5:37 AM EDT Malignant neoplasm of unspecified site of unspecified female breast ([facility] V24, [facility] V28) Hypothyroidism, unspecified Vitamin D deficiency, unspecified Vitamin B12 deficiency anemia, unspecified Spinal stenosis, site unspecified Chronic kidney disease, stage 3 unspecified ([facility] V24, [facility] V28) COMPREHENSIVE METABOLIC PANEL Routine 10/10/2024 5:37 AM EDT Malignant neoplasm of unspecified site of unspecified female breast ([facility] V24, [facility] V28) Hypothyroidism, unspecified Vitamin D deficiency, unspecified Vitamin B12 deficiency anemia, unspecified Spinal stenosis, site unspecified Chronic kidney disease, stage 3 unspecified ([facility] V24, [facility] V28) documented in this encounter Results * Vitamin D 25 hydroxy (10/10/2024 5:37 AM EDT) Vit D, 25-Hydroxy 52.0 30.0 - 80.0 ng/mL LAB CHEMISTRY METHOD 10/10/2024 1:00 PM EDT [facility] Blood Venous blood specimen / Unknown Venipuncture / Unknown 10/10/2024 5:37 AM EDT 10/10/2024 9:30 AM EDT us Ally Castañeda MD LAB BLOOD ORDERABLES Final Resul t [facility] [address] [place] [address], [place] [phone] * Folate (10/10/2024 5:37 AM EDT) Folate 12.9 2.8 - 17.0 ng/ml LAB CHEMISTRY METHOD 10/10/2024 11:35 AM EDT [facility] Blood Venous blood specimen / Unknown Venipuncture / Unknown 10/10/2024 5:37 AM EDT 10/10/2024 9:30 AM EDT us Ally Castañeda MD LAB BLOOD ORDERABLES Final Resul t Performing Organization Address [facility]/ZIP Co de Phone Number [facility] [address] [place] [address], [place] [phone] * Vitamin B12 (10/10/2024 5:37 AM EDT) Vitamin B-12 371 250 - 900 pcg/mL LAB CHEMISTRY METHOD 10/10/2024 11:35 AM EDT [facility] Blood Venous blood specimen / Unknown Venipuncture / Unknown 10/10/2024 5:37 AM EDT 10/10/2024 9:30 AM EDT us Ally Castañeda MD LAB BLOOD ORDERABLES Final Resul t Performing Organization Address [facility] de Phone Number [facility] [address] [place] [address], * Thyroid stimulating hormone with reflex to free t4 and free t3 (10/10/2024 5:37 AM EDT) Pathologist [facility] TSH 2.96 0.40 - 4.00 mcIU/mL LAB CHEMISTRY METHOD 10/10/2024 1:01 PM EDT [facility] Blood Venous blood specimen / Unknown Venipuncture / Unknown 10/10/2024 5:37 AM EDT 10/10/2024 9:30 AM EDT us Ally Castañeda MD LAB BLOOD ORDERABLES Final Resul t Performing Organization Address [facility]/ZIP Co de Phone Number [facility] [address] [place] [address], [place] [phone] * (ABNORMAL) Comprehensive metabolic panel (10/10/2024 5:37 AM EDT) Sodium 130(L) 133 - 145 mmol/L LAB CHEMISTRY METHOD 10/10/2024 11:35 AM EDT [facility] Potassium 4.9 3.5 - 5.5 mmol/L LAB CHEMISTRY METHOD 10/10/2024 11:35 AM [facility] Chloride 97 96 - 110 mmol/L LAB CHEMISTRY METHOD 10/10/2024 11:35 AM [facility] CO2 28 21 - 32 mmol/L LAB CHEMISTRY METHOD 10/10/2024 11:35 AM [facility] Anion Gap 5 3 - 11 LAB CHEMISTRY METHOD 10/10/2024 11:35 AM [facility] Glucose 82 70 - 100 mg/dL LAB CHEMISTRY METHOD 10/10/2024 11:35 AM [facility] BUN 37(H) 5 - 25 mg/dL LAB CHEMISTRY METHOD 10/10/2024 11:35 AM [facility] Creatinine 1.16(H) 0.50 - 1.10 mg/dL LAB CHEMISTRY METHOD 10/10/2024 11:35 AM [facility] eGFR 47(L) >=60 mL/min/1. 73m2 LAB CHEMISTRY METHOD 10/10/2024 11:35 AM [facility] Comment:Calculation based on the Chronic Kidney Disease Epidemiology Collaboration (CKD-EPI) equation refit without adjustment for race. BUN/Creatinine Ratio 31.9 LAB CHEMISTRY METHOD 10/10/2024 11:35 AM [facility] Calcium 8.9 8.5 - 10.5 mg/dL LAB CHEMISTRY METHOD 10/10/2024 11:35 AM [facility] AST (SGOT) 42 10 - 42 unit/L LAB CHEMISTRY METHOD 10/10/2024 11:35 AM [facility] ALT (SGPT) 48 10 - 60 unit/L LAB CHEMISTRY METHOD 10/10/2024 11:35 AM [facility] Alkaline Phosphatase 98 42 - 121 unit/L LAB CHEMISTRY METHOD 10/10/2024 11:35 AM [facility] Total Protein 6.3 6.0 - 8.0 g/dL LAB CHEMISTRY METHOD 10/10/2024 11:35 AM EDT [facility] Albumin 2.3(L) 3.2 - 5.0 g/dL LAB CHEMISTRY METHOD 10/10/2024 11:35 AM EDT [facility] Total Bilirubin 0.4 0.0 - 1.4 mg/dL LAB CHEMISTRY METHOD 10/10/2024 11:35 AM EDT [facility] Blood Venous blood specimen / Unknown Venipuncture / Unknown 10/10/2024 5:37 AM EDT 10/10/2024 9:30 AM EDT Ally Castañeda MD LAB BLOOD ORDERABLES Final Resul t [facility] [address] [place] [address], [place] [phone] * (ABNORMAL) Complete blood count (10/10/2024 5:37 AM EDT) WBC 9.2 4.8 - 10.8 K/mcL LAB HEMETOLOGY METHOD 10/10/2024 10:58 AM EDT [facility] RBC 3.10(L) 3.80 - 4.80 M/mcL LAB HEMETOLOGY METHOD 10/10/2024 10:58 AM EDT [facility] Hemoglobin 8.8(L) 11.5 - 16.0 g/dL LAB HEMETOLOGY METHOD 10/10/2024 10:58 AM EDT [facility] Hematocrit 28.0(L) 35.0 - 47.0 % LAB HEMETOLOGY METHOD 10/10/2024 10:58 AM EDT [facility] MCV 89.7 79.0 - 98.0 FL LAB HEMETOLOGY METHOD 10/10/2024 10:58 AM EDT [facility] MCH 28.2 27.0 - 32.0 pcg LAB HEMETOLOGY METHOD 10/10/2024 10:58 AM EDT [facility] MCHC 31.4(L) 32.0 - 37.0 g/dL LAB HEMETOLOGY METHOD 10/10/2024 10:58 AM EDT [facility] RDW 13.2 11.0 - 15.0 % LAB HEMETOLOGY METHOD 10/10/2024 10:58 AM EDT [facility] Platelets 261 130 - 400 K/mcL LAB HEMETOLOGY METHOD 10/10/2024 10:58 AM EDT [facility] MPV 11.0 7.0 - 11.0 FL LAB HEMETOLOGY METHOD 10/10/2024 10:58 AM EDT [facility] NRBC 0.0 <1.0 % LAB HEMETOLOGY METHOD 10/10/2024 10:58 AM EDT [facility] NRBC Absolute 0.00 <0.10 K/mcL LAB HEMETOLOGY METHOD 10/10/2024 10:58 AM EDT [facility] Blood Venous blood specimen / Unknown Venipuncture / Unknown 10/10/2024 5:37 AM EDT 10/10/2024 9:30 AM EDT us Ally Castañeda MD LAB BLOOD ORDERABLES Final Resul t [facility] [address] [place] [address], documented in this encounter Visit Diagnoses Diagnosis Malignant neoplasm of unspecified site of unspecified female breast ([facility]/HCC V24, [facility]/HCC V28) Hypothyroidism, unspecified Vitamin D deficiency, unspecified Vitamin B12 deficiency anemia, unspecified Spinal stenosis, site unspecified Chronic kidney disease, stage 3 unspecified (CMS/HCC V24, [facility]/HCC V28) documented in this encounter Care Teams Field Superintendent Relationship Specialty Start Date End Date Truong Colon MD [address] JAEL Christian PCP - General 05/19/22 documented as of this encounter
--- OUTSIDE RECORDS SUMMARY | 2024-12-26 12:30 | XMS_ITS | Encounter Summary ---
Author Organization [facility] Address [address] [place] [address] Phone Care Team Providers Care Supervisor Filling And Packing Name Role Phone Truong Colon MD Primary Care Provider +1- [phone] Encounter Details Date Type Department Care Team (Late Contact Info) Description 06/13/2024 Orders Only [facility] [address] [place] [address] Kylie Gabriel [address] [place] [address] Anemia in chronic kidney disease; [...] Visit [facility] [address] [place] [address] Romero Jimenez MD [address] [place] [address] documented as of this encounter Visit Diagnoses Diagnosis Anemia in chronic kidney disease Stage 3b chronic kidney disease (HCC) Iron deficiency anemia, not otherwise specified documented in this encounter Care Teams Supervisor Filling And Packing Relationship Specialty Start Date End Date Truong Colon MD [address] [place] [address] PCP - General Internal Medicine 03/06/23 documented as of this encounter
== END 2024-12-26 11:33 | disposition home or self-care (01) ==
LOC: HO.XRAY 11:32
PROVIDERS: PCP Internal Medicine
DX: M25.471 Effusion, right ankle (principal); M25.571 Pain in right ankle and joints of right foot
CPT/HCPCS: 73610

== ENCOUNTER → 2024-12-26 11:37 | Outpatient (BNV) | payer OTHER, SELFPAY | PROVIDERS: PCP Internal Medicine; Visit Provider Radiology Diagnostic Radiology | DX: M77.31 Calcaneal spur, right foot (principal) | CPT/HCPCS: 73610 ==

== ENCOUNTER 2025-01-05 11:27 | Outpatient (AMB) | payer OTHER, SELFPAY ==
--- OUTSIDE RECORDS SUMMARY | 2024-10-30 10:45 | XMS_ITS ---
Author Organization [facility] Address [address] [place] [address] Care Team Providers Care Pocket Cutter Name Role Phone Isaiah DURAN, Truong Primary Care Provider UnaBoby Bermudez Unavailable [phone] Encounters Encounter Location Date Provider Diagnosis [facility] [address] [address] 10/30/2024 Boby Chapman Plan Of Treatment Next Appt Details Provider Name:Boby Chapman , 03/30/2025 01:30:00 PM, [address] [facility], [place] [address], [place], [address], Progress Notes * Tommie BLANCASOB:[birth year] (79 yo F)Acc No.[id number]:10/30/2024 Progress Note Patient: Jacinda NUNEZ Provider: Alex Chapman DPM :1945 A ge:79 Y S ex:Female Date:10/30/2024 Address:[address] [place] [address], [place], [id number] Pcp:Truong Colon MD Subjective: * Chief Complaints: [...] 10/30/2024 Generated for Yovanny toussaint/Daniel on: 0 01/05/2025 03:45 PM EDT
--- NOTE | 2025-01-05 11:35 | A.SPINEOV_ITS ---
Intake Visit Reasons: C/o mobility difficulty Intake Note: Ms. Blancas is here today c/o mobility difficulty. Domestic Violence Advocate Required: Yes Domestic Violence Advocate Services: Domestic Violence Advocate Present Domestic Violence Advocate Name: Jessa Mauro (Daughter) Allergies Penicillins (PENICILLINS) Allergy (Intermediate, Verified 01/05/25 11:36) rash senna Allergy (Intermediate, Verified 01/05/25 11:36) rash Assessment & Plan Assessment & Plan (1) Lumbar radiculopathy: Code(s): M54.16 - Radiculopathy, lumbar region Category: Medical Plan Jacinda is an 79-year-old female that underwent a left L2-3 decompression on 10/01/2024. During her last visit there is some concern for lower extremity swelling, and the patient was referred to her primary care for evaluation of erysipelas, in the context of DVT being ruled out. To recap she was evaluated in clinic pre-operatively for chronic low back pain and right lower extremity pain which radiated down into her anterior thigh, posterior thigh going into her calf when she stands and walks. Unfortunately the patient reports this pain has continued since her surgery. Today, she denies any relief from her surgery, despite previously reported improvements. She extensively discuss his her lower extremity concerns, and asked many questions regarding this. I did reiterate to her that her bilateral lower extremity ultrasound imaging was negative. She reports that she has been back to her primary care physician's office since seeing Dr. Merino previously, however she states they did not seem to think she had any kind of infection in her lower extremities. It is good that this was ruled out. Today, she reports minimal redness of her lower extremities but does report some continued swelling primarily on the right-hand side near the gastrocnemius than on the left-hand side near the ankle. No new neurological deficits. The patient has about 4/5 strength with right- sided iliopsoas testing. The rest of her lower extremity strength is 5/5. She has what I would call 1+ pitting edema in the dorsal surface of her right foot and 1+ pitting edema near the left ankle. It sounds most like the surgery was not successful for relieving the patient's pain, despite previously reported improvements. In the absence of DVT confounding her symptoms, I would like to order a repeat lumbar MRI to evaluate for any continued nerve compression on the right hand side. I did discuss with the patient that her lower extremity edema may be related to her current amlodipine prescription. She does state that she is instructed to start taking half a tablet of her 10 mg amlodipine instead of 1 full tablet, however she states her blood pressure was too high when attempting to do this so she stopped doing it. She should discuss this further with her primary care physician/director process engineering if this continues to bother her. She would like to go to the open MRI at [email or web address] for her lumbar spine imaging. She was instructed to call us after she gets her MRI so we can log into the online portal for race and review her images. We will need to get an MRI with Gadolinium to evaluate for postoperative changes. I acknowledged in the MRI order that the patient has CKD stage III and diabetes. Pernell Merino MD,PhD [facility] Orders: Orders MR lumbar spine wo/w con Today M54.16 - Radiculopathy, lumbar region Coding Level of Care Code Global (24922) Diagnoses Lumbar radiculopathy M54.16
--- OUTSIDE RECORDS SUMMARY | 2025-01-05 15:45 | XMS_ITS | Encounter Summary ---
Author Organization [facility] Address [address] [place] [address] Phone Care Team Providers Care Diesel Fleet Mechanic Name Role Phone Truong Colon MD Primary Care Provider +1- [phone] Encounter Details Date Type Department Care Team (Late Contact Info) Description 12/26/2024 Orders Only [facility] [address] [place] [address] Kylie Gabriel [address] [place] [address] Anemia in chronic kidney disease; [...] [facility] [address] [place] [address] Romero Jimenez MD [address] [place] [address] documented as of this encounter Visit Diagnoses Diagnosis Anemia in chronic kidney disease Stage 3b chronic kidney disease (HCC) Iron deficiency anemia, not otherwise specified documented in this encounter Care Teams Diesel Fleet Mechanic Relationship Specialty Start Date End Date Truong Colon MD [address] [place] [address] PCP - General Internal Medicine 03/06/23 documented as of this encounter
--- OUTSIDE RECORDS SUMMARY | 2025-01-05 15:45 | XMS_ITS | Encounter Summary ---
Author Organization [facility] Address [address] [place] [address] Phone Care Team Providers Care Athletic Agent Name Role Phone Truong Colon MD Primary Care Provider +1- [phone] Encounter Details Date Type Department Care Team (Late Contact Info) Description 08/12/2024 Documentation Only [facility] [address] [place] [address] [place] [address] [place] [address] Social History Tobacco Use Types Packs/Day [...] [facility] [address] [place] [address] Romero Jimenez MD [address] [place] [address] [place] [address] documented as of this encounter Visit Diagnoses Not on filedocumented in this encounter Care Teams Athletic Agent Relationship Specialty Start Date End Date Truong Colon MD [address] [place] [address] PCP - General Internal Medicine 03/06/23 documented as of this encounter
--- OUTSIDE RECORDS SUMMARY | 2025-01-05 15:45 | XMS_ITS | Encounter Summary ---
Author Organization [facility] Address [address] [place] [address] Phone Care Team Providers Care Environmental Services Project Manager Name Role Phone Truong Colon MD Primary Care Provider +1- [phone] Encounter Details Date Type Department Care Team (Late Contact Info) Description 05/12/2021 Documentation Only [facility] [address] [place] [address] Eligio Meza MD [address] [place] [address] [place] [address] Social History Tobacco Use Types [...] Visit [facility] [address] [place] [address] Romero Jimenez MD [address] [place] [address] documented as of this encounter Visit Diagnoses Not on filedocumented in this encounter Care Teams Environmental Services Project Manager Relationship Specialty Start Date End Date Truong Colon MD [address] [place] [address] PCP - General Internal Medicine 03/06/23 documented as of this encounter
--- OUTSIDE RECORDS SUMMARY | 2025-01-05 15:45 | XMS_ITS | Patient Health Record ---
Author Organization [facility] Address [address] [place] [address] Care Team Providers Care Asset Protection Specialist Name Role Phone Radha Pena Primary Care Provider Timoteo Schneider Unavailable [phone] Allergies Allergen (clinical drug ingredient) Drug/Non Drug [...] Problem Status W/U Status Risk Notes Problem [id number] Encounter for screening for malignant neoplasm of colon (Z12.11) Active confirmed Problem Screening for malignant neoplasm of rectum (404850401) Encounter for screening for malignant neoplasm of rectum (Z12.12) Active confirmed Problem [id number] Gastroesophageal reflux disease, esophagitis presence not specified (K21.9) Active confirmed Problem 91870530 Constipation, unspecified constipation type (K59.00) Active confirmed Plan Of Treatment Future Test Test Name Order Date UPPER GI ENDOSCOPY 11/30/2015 COLONOSCOPY 11/30/2015 Insurance Providers Payer Name Payer Address Payer Phone Subscriber Number Group Number Insured Name Patient Relationship to Insured Coverage Start Date Coverage End Date [facility] [address] [place] [address] [id number] NOE SALDIVAR Self - patient is the insured Medical (General) History Medical History History ICD Code Hypertension Kidney disease--mild renal insuffciency- -GFR of 40--Dr. Meza Denies SC,DM,CVA,Lung disease Neg. colonoscopy in 2004 exc ept for diverticulosis and internal hemorrhoids-- Neg. EGD in 2004--Dr. Bear Breast cancer on the left in 2013--lumpe ctomy and XRT Hypothyroidism GERD Surgical History Surgery Date(Month/Year) Cholecystectomy--Dr. Banks 2014 Bladder suspension Left lumpectomy for breast cancer in 4
--- OUTSIDE RECORDS SUMMARY | 2025-01-05 15:45 | XMS_ITS | Encounter Summary ---
Author Organization [facility] Address [address] [place] [address] Phone Care Team Providers Care Rehabilitation Worker Name Role Phone Truong Colon MD Primary Care Provider +1- [phone] Encounter Details Date Type Department Care Team (Late Contact Info) Description 05/16/2024 Orders Only [facility] [address] [place] [address] Kylie Gabriel [address] [place] [address] Anemia in chronic kidney disease; [...] Visit [facility] [address] [place] [address] Romero Jimenez MD [address] [place] [address] documented as of this encounter Visit Diagnoses Diagnosis Anemia in chronic kidney disease Stage 3b chronic kidney disease (HCC) Iron deficiency anemia, not otherwise specified documented in this encounter Care Teams Rehabilitation Worker Relationship Specialty Start Date End Date Truong Colon MD [address] [place] [address] PCP - General Internal Medicine 03/06/23 documented as of this encounter
--- OUTSIDE RECORDS SUMMARY | 2025-01-05 15:45 | XMS_ITS | Encounter Summary ---
Author Organization [facility] Address [address] [place] [address] Phone Care Team Providers Care Shipping Coordinator Name Role Phone Truong Colon MD Primary Care Provider +1- [phone] Encounter Details Date Type Department Care Team (Late Contact Info) Description 04/10/2024 Documentation Only [facility] [address] [place] [address] Kylie Gabriel [address] [place] [address] Social History Tobacco Use Types [...] [facility] [address] [place] [address] Romero Jimenez MD [address] [place] [address] [place] [address] documented as of this encounter Visit Diagnoses Not on filedocumented in this encounter Care Teams Shipping Coordinator Relationship Specialty Start Date End Date Truong Colon MD [address] [place] [address] PCP - General Internal Medicine 03/06/23 documented as of this encounter
--- OUTSIDE RECORDS SUMMARY | 2025-01-05 15:45 | XMS_ITS | Encounter Summary ---
Author Organization [facility] Address [address] [place] [address] Phone Care Team Providers Care Cloth Neutralizer Name Role Phone Truong Colon MD Primary Care Provider +1- [phone] Encounter Details Date Type Department Care Team (Late Contact Info) Description 04/24/2024 Documentation Only [facility] [address] [place] [address] Kylie Gabriel [address] [place] [address] Social History Tobacco Use Types [...] [facility] [address] [place] [address] Romero Jimenez MD [address] [place] [address] [place] [address] documented as of this encounter Visit Diagnoses Not on filedocumented in this encounter Care Teams Cloth Neutralizer Relationship Specialty Start Date End Date Truong Colon MD [address] [place] [address] PCP - General Internal Medicine 03/06/23 documented as of this encounter
--- OUTSIDE RECORDS SUMMARY | 2025-01-05 15:45 | XMS_ITS | Encounter Summary ---
Author Organization [facility] Address [address] [place] [address] Phone Care Team Providers Care Setter Induction Heating Equipment Name Role Phone Truong Colon MD Primary Care Provider +1- [phone] Encounter Details Date Type Department Care Team (Late Contact Info) Description 04/10/2024 Documentation Only [facility] [address] [place] [address] Kylie Gabriel [address] [place] [address] Social History Tobacco Use Types [...] [facility] [address] [place] [address] Romero Jimenez MD [address] [place] [address] [place] [address] documented as of this encounter Visit Diagnoses Not on filedocumented in this encounter Care Teams Setter Induction Heating Equipment Relationship Specialty Start Date End Date Truong Colon MD [address] [place] [address] PCP - General Internal Medicine 03/06/23 documented as of this encounter
--- OUTSIDE RECORDS SUMMARY | 2025-01-05 15:45 | XMS_ITS | Encounter Summary ---
Author Organization [facility] Address [address] [place] [address] Phone Care Team Providers Care Sifter Operator Name Role Phone Truong Colon MD Primary Care Provider +1- [phone] Encounter Details Date Type Department Care Team (Late Contact Info) Description 05/27/2024 Documentation Only [facility] [address] [place] [address] Kylie Gabriel [address] [place] [address] Social History Tobacco Use Types [...] [facility] [address] [place] [address] Romero Jimenez MD [address] [place] [address] [place] [address] documented as of this encounter Visit Diagnoses Not on filedocumented in this encounter Care Teams Sifter Operator Relationship Specialty Start Date End Date Truong Colon MD [address] [place] [address] PCP - General Internal Medicine 03/06/23 documented as of this encounter
--- OUTSIDE RECORDS SUMMARY | 2025-01-05 15:45 | XMS_ITS | Encounter Summary ---
Author Organization [facility] Address [address] [place] [address] Phone Care Team Providers Care It Help Desk Manager Name Role Phone Truong Colon MD Primary Care Provider +1- [phone] Encounter Details Date Type Department Care Team (Late Contact Info) Description 11/28/2024 Orders Only [facility] [address] [place] [address] Kylie Gabriel [address] [place] [address] Anemia in chronic kidney disease; [...] Visit [facility] [address] [place] [address] Romero Jimenez MD [address] [facility] [address] [place] [address] documented as of this encounter Visit Diagnoses Diagnosis Anemia in chronic kidney disease Stage 3b chronic kidney disease (HCC) Iron deficiency anemia, not otherwise specified documented in this encounter Care Teams It Help Desk Manager Relationship Specialty Start Date End Date Truong Colon MD [address] [place] [address] PCP - General Internal Medicine 03/06/23 documented as of this encounter
--- OUTSIDE RECORDS SUMMARY | 2025-01-05 15:45 | XMS_ITS | Encounter Summary ---
Author Organization [facility] Address [address] [place] [address] Phone Care Team Providers Care Rn Supplemental Name Role Phone Truong Colon MD Primary Care Provider +1- [phone] Encounter Details Date Type Department Care Team (Late Contact Info) Description 12/21/2021 Documentation Only [facility] [address] [place] [address] Dimitris Suarez PA [address] [place] [address] Social History Tobacco Use Types [...] Visit [facility] [address] [place] [address] Romero Jimenez MD [address] [facility] [place] [address] documented as of this encounter Visit Diagnoses Not on filedocumented in this encounter Care Teams Rn Supplemental Relationship Specialty Start Date End Date Truong Colon MD [address] [place] [address] PCP - General Internal Medicine 03/06/23 documented as of this encounter
--- OUTSIDE RECORDS SUMMARY | 2025-01-05 15:46 | XMS_ITS | Encounter Summary ---
Author Organization [facility] Address [address] [place] [address] Phone Care Team Providers Care Thermocouple Tester Name Role Phone Truong Colon MD Primary Care Provider +1- [phone] Encounter Details Date Type Department Care Team (Late Contact Info) Description 08/08/2024 Orders Only [facility] [address] [place] [address] Kylie Gabriel [address] [place] [address] Anemia in chronic kidney disease; [...] Visit [facility] [address] [place] [address] Romero Jimenez MD [address] [facility] [address] [place] [address] documented as of this encounter Visit Diagnoses Diagnosis Anemia in chronic kidney disease Stage 3b chronic kidney disease (HCC) Iron deficiency anemia, not otherwise specified documented in this encounter Care Teams Thermocouple Tester Relationship Specialty Start Date End Date Truong Colon MD [address] [place] [address] PCP - General Internal Medicine 03/06/23 documented as of this encounter
--- OUTSIDE RECORDS SUMMARY | 2025-01-05 15:46 | XMS_ITS | Patient Health Record ---
Author Organization [facility] camilla Echola Address [address] [facility] [place] [address] Care Team Providers Care Scleroscope Tester Name Role Phone Isaiah DURAN, [place] Primary Care Provider Boby Laguerre Unavailable [phone] Allergies Allergen (clinical drug ingredient) Drug/Non Drug [...] Problem Acquired hammer toe of right foot (4163333501774800 ) Other hammer toe(s) (acquired), right foot (M20.41) Active confirmed Response to treatment, Improvemen t Problem Acquired hammer toe of left foot (0864135747122188 ) Other hammer toe(s) (acquired), left foot (M20.42) Active confirmed Response to treatment, Improvemen t Problem Bilateral atherosclerosis of arteries of lower limbs (disorder) ([id number] 7) Atherosclerosis of [place] artery of both lower extremities, with unspecified presence of clinical manifestation (I70.203) Active confirmed Vital Signs Blood pressure diastolic 64 mm Hg 12/15/2024 Height 5 ft 9in in 12/15/2024 Blood pressure systolic 127 mm Hg 12/15/2024 Weight 230 lbs 12/15/2024 BMI 33.96 kg/m2 12/15/2024 Procedures Procedure Date Ordered Date Performed Result Body Sit e 92213-MZSYXML NAIL, 6 OR MORE 01/24/2024 N/A 40688-Whpu Destruction, 1-14 01/24/2024 N/A 53723-YSMP SKIN LESIONS, OVER 4 01/24/2024 N/A 44104-KYLFOPA NAIL, 6 OR MORE 05/05/2024 N/A 11571-LSIO SKIN LESIONS, OVER 4 05/05/2024 N/A 77149-YAUVDCB NAIL, 6 OR MORE 07/31/2024 N/A 53765-MUMQ SKIN LESIONS, OVER 4 07/31/2024 N/A 33183-JXBCCXK NAIL, 6 OR MORE 12/15/2024 N/A 00002-ZRNC SKIN LESIONS, OVER 4 12/15/2024 N/A Encounters Encounter Location Date Provider Diagnosis [address] [address] 01/24/2024 Boby Chapman Atherosclerosis of [place] artery of both lower extremities, with unspecified presence of clinical manifestation I70.203 ; Plantar wart B07.0 ; Tinea unguium B35.1 ; Pain in right toe(s) M79.674 ; Pain in left toe(s) M79.675 ; Left foot pain M79.672 and Xerosis of skin L85.[address] [address] 05/05/2024 Boby Chapman Atherosclerosis of [place] artery of both lower extremities, with unspecified presence of clinical manifestation I70.203 ; Tinea unguium B35.1 ; Pain in right toe(s) M79.674 ; Pain in left toe(s) M79.675 ; Other hammer toe(s) (acquired), right foot M20.41 and Other hammer toe(s) (acquired), left foot M20.[address] [address] 07/31/2024 Boby Chapman Atherosclerosis of [place] artery of both lower extremities, with unspecified presence of clinical manifestation I70.203 ; Tinea unguium B35.1 ; Pain in right toe(s) M79.674 ; Pain in left toe(s) M79.675 ; Other hammer toe(s) (acquired), right foot M20.41 and Other hammer toe(s) (acquired), left foot M20.[address] [place] [address] 12/15/2024 Boby Chapman Atherosclerosis of [place] artery of both lower extremities, with unspecified presence of clinical manifestation I70.203 ; Tinea unguium B35.1 ; Pain in right toe(s) M79.674 and Pain in left toe(s) M79.675 [facility] [address] [place] [address] 10/30/2024 Boby Chapman Assessments Encounter Date Diagnosis (ICD Code) Assessment Notes Treatment Notes Treatment Clinical Notes Section Notes 01/24/2024 Plantar wart (ICD-10 - B07.0) 01/24/2024 Atherosclerosis of [place] artery of both lower extremities, with unspecified presence of clinical manifestation (ICD-10 - I70.203) 05/05/2024 Tinea unguium (ICD-10 - B35.1) 05/05/2024 Atherosclerosis of [place] artery of both lower extremities, with unspecified presence of clinical manifestation (ICD-10 - I70.203) 07/31/2024 Tinea unguium (ICD-10 - B35.1) 07/31/2024 Atherosclerosis of [place] artery of both lower extremities, with unspecified presence of clinical manifestation (ICD-10 - I70.203) 12/15/2024 Tinea unguium (ICD-10 - B35.1) 12/15/2024 Atherosclerosis of [place] artery of both lower extremities, with unspecified presence of clinical manifestation (ICD-10 - I70.203) 12/15/2024 Pain in right toe(s) (ICD-10 - M79.674) 05/05/2024 Pain in right toe(s) (ICD-10 - M79.674) 07/31/2024 Pain in right toe(s) (ICD-10 - M79.674) 01/24/2024 Tinea unguium (ICD-10 - B35.1) 05/05/2024 Pain in left toe(s) (ICD-10 - M79.675) 01/24/2024 Pain in right toe(s) (ICD-10 - M79.674) 12/15/2024 Pain in left toe(s) (ICD-10 - [...] Treatment Pending Test Test Name Order Date 95890-TCQLWGH NAIL, 6 OR MORE 03/21/2017 30561-YRGRFMS NAIL, 6 OR MORE 05/30/2017 36467-ZMJLTFE NAIL, 6 OR MORE 08/06/2017 84608-QDKOPDG NAIL, 6 OR MORE 10/25/2017 26249-KACITCB NAIL, 6 OR MORE 03/20/2018 97475-SXOXMAF NAIL, 6 OR MORE 06/13/2018 12494-EMGUZON NAIL, 6 OR MORE 01/07/2018 98278-JGVHDGW NAIL, 6 OR MORE 08/14/2018 64133-QVBCXWS NAIL, 6 OR MORE 10/17/2018 72941-JXSTCEF NAIL, 6 OR MORE 01/16/2019 59166-GJDTKMX NAIL, 6 OR MORE 04/03/2019 24496-ALLTFAX NAIL, 6 OR MORE 06/16/2019 19828-LIMUAKT NAIL, 6 OR MORE 08/27/2019 93307-DLQDJIX NAIL, 6 OR MORE 12/18/2019 49873-RHGVTAH NAIL, 6 OR MORE 05/06/2020 90299-GZAAAPL NAIL, 6 OR MORE 07/15/2020 92275-QNPBJKB NAIL, 6 OR MORE 09/29/2020 82260-FUDSJDP NAIL, 6 OR MORE 12/02/2020 53500-DBXTXXB NAIL, 6 OR MORE 02/17/2021 40219-YMUOEIO NAIL, 6 OR MORE 06/16/2021 30986-PQDLFQP NAIL, 6 OR MORE 08/29/2021 82464-WGITOCX NAIL, 6 OR MORE 11/10/2021 65459-VTWRPEC NAIL, 6 OR MORE 01/19/2022 00290-UACBTBR NAIL, 6 OR MORE 04/05/2022 50191-MYXKNTK NAIL, 6 OR MORE 06/15/2022 44177-FGVEHVR NAIL, 6 OR MORE 08/24/2022 62146-GNMPXUD NAIL, 6 OR MORE 11/16/2022 21863-OXRPOGC NAIL, 6 OR MORE 01/25/2023 66083-XLXXQPO NAIL, 6 OR MORE 04/11/2023 10788-YOKJXLE NAIL, 6 OR MORE 06/27/2023 11654-YJUNZYW NAIL, 6 OR MORE 08/30/2023 26046-MQPNKAC NAIL, 6 OR MORE 11/08/2023 17445-SJNZYUL NAIL, 6 OR MORE 01/24/2024 48027-LGRFDTX NAIL, 6 OR MORE 05/05/2024 80285-TSNTCZF NAIL, 6 OR MORE 07/31/2024 98334-QDKTZRO NAIL, 6 OR MORE 12/15/2024 57265-EUFSNAV NAIL, 1-5 11/01/2016 56278-RRCCAUO NAIL, -5 01/03/2017 63008-UXDXWLH NAIL, 1-5 11/15/2015 20371-JDUISLT NAIL, 1-5 01/24/2016 44852-RZFTVPK NAIL, 1-5 04/05/2016 63016-WABOCYO NAIL, -5 06/14/2016 87440-NUPOHPM NAIL, -5 08/23/2016 80994-Iyhu Destruction, -14 11/01/2016 32509-Ifml Destruction, -14 01/03/2017 96509-Rlty Destruction, -14 03/21/2017 48259-Fimr Destruction, -14 05/30/2017 52762-Czhv Destruction, -14 08/06/2017 10154-Vdcg Destruction, -14 05/06/2020 55187-Owox Destruction, -14 12/18/2019 63386-Whql Destruction, 05-0608/27/2019 50296-Jgqi Destruction, 05-0606/16/2019 21630-Momp Destruction, 05-0604/03/2019 60990-Kzfo Destruction, 05-0601/16/2019 28245-Hott Destruction, 05-0610/17/2018 21556-Sfiy Destruction, 05-0608/14/2018 09989-Ycet Destruction, 05-0606/13/2018 67146-Xixl Destruction, 05-0610/25/2017 94397-Lamv Destruction, 05-0601/07/2018 49941-Were Destruction, 05-0608/30/2023 26578-Xgxu Destruction, 05-0606/27/2023 33516-Bykp Destruction, 05-0604/11/2023 61946-Rmbz Destruction, 05-0601/25/2023 53445-Qgib Destruction, 05-0611/16/2022 64567-Afin Destruction, 05-0608/24/2022 57593-Qybn Destruction, 05-0606/15/2022 20489-Uion Destruction, 05-0604/05/2022 11428-Cwdy Destruction, 05-0601/19/2022 91607-Phfl Destruction, 05-0606/16/2021 67698-Qamh Destruction, 05-0603/20/2018 75004-Dsqg Destruction, 05-0611/10/2021 79079-Hsla Destruction, 05-0608/29/2021 73006-Pnwf Destruction, 05-0602/17/2021 73662-Uslr Destruction, 05-0612/02/2020 27421-Vzgq Destruction, 05-0609/29/2020 84087-Mpbk Destruction, 05-0607/15/2020 60088-Uqwm Destruction, 05-0601/24/2024 93455-Xcqa Destruction, 05-0611/08/2023 55173-Qojfhray Plate 11/08/2023 75359-Lvfnvboh Plate 09/29/2020 66554-Iehcxcch Plate 12/02/2020 10831-Pvvikrmz Plate 02/17/2021 52171-Igdnsayk Plate 06/16/2021 89900-Kexxbawm Plate 08/29/2021 25418-Qmtwbard Plate 11/10/2021 87037-Tcgmrdmf Plate 01/19/2022 79769-Cipwizmc Plate 04/05/2022 51365-Vzvndfjx Plate 06/15/2022 07690-Ythzdbld Plate 08/24/2022 98450-Njnlgbrn Plate 11/16/2022 28824-Bbadlfjk Plate 01/25/2023 70236-Nqycjncm Plate 04/11/2023 58345-Oaoajvka Plate 06/27/2023 53690-Pzksjonp Plate 08/30/2023 14856-Kcfxpqnx Plate 12/18/2019 05998-Lmhipgcj Plate 05/06/2020 14067-Zorgyhnk Plate 07/15/2020 66588-Ulrdrmdh Plate 11/01/2016 72481-Dxsqulfj Plate Each Additional 12/2023 73457-Rdvvdtme Plate Each Additional 09/2023 10670-Xuxkqlrg Plate Each Additional 34165-Fzffqvsw Plate Each Additional 08/2022 29940-Cpaqbhay Plate Each Additional 12947-Tgnvnwtl Plate Each Additional 07/2022 40246-Zzyxfmid Plate Each Additional 93461-Bnwijqxt Plate Each Additional 03572-Vceyuerr Plate Each Additional 95293-Ykfzihbp Plate Each Additional 64075-XFTG SKIN LESIONS, OVER 4 11/08/19 24 58567-QGCS SKIN LESIONS, OVER 4 01/24/20 61244-XXJN SKIN LESIONS, OVER 4 05/05/19 28922-QIGU SKIN LESIONS, OVER 4 12/16/19 31629-BIVA SKIN LESIONS, OVER 4 08/01/19 67101-FIKZ SKIN LESIONS, OVER 4 06/16/19 83797-HBRF SKIN LESIONS, OVER 4 01/20/20 86607-KUAA SKIN LESIONS, OVER 4 11/11/19 39084-HZBL SKIN LESIONS, OVER 4 08/30/19 64637-WBRK SKIN LESIONS, OVER 4 02/18/20 91791-NAUN SKIN LESIONS, OVER 4 12/03/19 04015-RLAK SKIN LESIONS, OVER 4 09/30/19 99771-EWAI SKIN LESIONS, OVER 4 03/25/20 21 97371-GNQT SKIN LESIONS, OVER 4 04/05/20 22 85196-OCSF SKIN LESIONS, OVER 4 06/15/19 23 24197-BDHH SKIN LESIONS, OVER 4 08/25/19 23 02813-VUZI SKIN LESIONS, OVER 4 11/17/19 23 75675-XBIA SKIN LESIONS, OVER 4 01/26/20 23 60166-YPOV SKIN LESIONS, OVER 4 04/11/20 23 85271-JOYW SKIN LESIONS, OVER 4 06/27/19 24 48976-YQFO SKIN LESIONS, OVER 4 08/30/19 24 42084-MGLS SKIN LESIONS, OVER 4 03/21/20 17 01510-RLSO SKIN LESIONS, OVER 4 01/04/20 40918-CTQX SKIN LESIONS, OVER 4 10/26/19 18 26724-MRZN SKIN LESIONS, OVER 4 08/07/19 18 48794-SBND SKIN LESIONS, OVER 4 05/30/19 18 77387-HBHM SKIN LESIONS, OVER 4 11/02/19 17 91127-KJBL SKIN LESIONS, OVER 4 06/14/19 17 40512-ZYAN SKIN LESIONS, OVER 4 04/05/20 16 09258-ZJHX SKIN LESIONS, OVER 4 08/24/19 17 72242-ANPM SKIN LESIONS, OVER 4 01/24/20 16 80383-GODW SKIN LESIONS, OVER 4 11/15/19 16 25052-WZKE SKIN LESIONS, OVER 4 08/16/19 16 47820-BBJY SKIN LESIONS, OVER 4 05/06/19 21 73620-LFXB SKIN LESIONS, OVER 4 12/18/19 20 29738-XQGW SKIN LESIONS, OVER 4 08/27/19 20 21303-NSTZ SKIN LESIONS, OVER 4 04/03/20 19 61875-SWMN SKIN LESIONS, OVER 4 06/16/19 20 39541-OVIP SKIN LESIONS, OVER 4 01/08/20 18 73241-HIKE SKIN LESIONS, OVER 4 06/13/19 19 65530-TQHS SKIN LESIONS, OVER 4 08/15/19 19 76975-EOKH SKIN LESIONS, OVER 4 03/20/20 18 97720-UJZA SKIN LESIONS, OVER 4 10/18/19 19 24109-ONMI SKIN LESIONS, OVER 4 01/17/20 19 U7700-FGJGKCSH DYSTROPHIC NAILS ANY # B5488-QQMJAFZP DYSTROPHIC NAILS ANY # C0144-ZSYYFDYL DYSTROPHIC NAILS ANY # J6944-SQPMCSYS DYSTROPHIC NAILS ANY # R2951-NHBOIKGJ DYSTROPHIC NAILS ANY # F9687-YJUXHKOP DYSTROPHIC NAILS ANY # V6497-UTPOHEDJ DYSTROPHIC NAILS ANY # J8618-UTVLBULW DYSTROPHIC NAILS ANY # Next Appt Details Provider Name:Boby Snow Adela , 03/30/2025 01:30:00 PM, [address] [place] [address], [facility] [address], [place], [address], Insurance Providers Payer Name Payer Address Payer Phone Subscriber Number Group Number Insured Name Patient Relationship to Insured Coverage Start Date Coverage End Date [facility] [employer] Claims [address] [place] [id number] Jacinda Benavidez Self - patient is the insured Medical (General) History Medical History History ICD Code Anemia Anxiety Arthritis Back,Hip,and Knee pain Cataracts High blood pressure Liver disease Reflux Thyroid disorder Surgical History Surgery Date(Month/Year) gall bladder 12/11/2014 Unspecified Right Hand SX 03/13/17 Hospitalization History Reason Date(Month/Year) [facility] [place] 10/03/24
--- OUTSIDE RECORDS SUMMARY | 2025-01-05 15:46 | XMS_ITS | Encounter Summary ---
Author Organization [facility] Address [address] [place] [address] Phone Care Team Providers Care Research Program Coordinator Name Role Phone Truong Colon MD Primary Care Provider +1- [phone] Encounter Details Date Type Department Care Team (Late Contact Info) Description 04/14/2022 Documentation Only [facility] [address] [place] [address] Eligio Meza MD [address] [place] [address] [place] [address] Social History Tobacco Use Types [...] Visit [facility] [address] [place] [address] Romero Jimenez MD [address] [facility] [place] [address] documented as of this encounter Visit Diagnoses Not on filedocumented in this encounter Care Teams Research Program Coordinator Relationship Specialty Start Date End Date Truong Colon MD [address] [place] [address] PCP - General Internal Medicine 03/06/23 documented as of this encounter
--- OUTSIDE RECORDS SUMMARY | 2025-01-05 15:46 | XMS_ITS | Encounter Summary ---
Author Organization [facility] Address [address] [place] [address] Phone Care Team Providers Care Credit Card Associate Name Role Phone Truong Colon MD Primary Care Provider +1- [phone] Encounter Details Date Type Department Care Team (Late Contact Info) Description 01/14/2024 Documentation Only [facility] [address] [place] [address] [place] [address] [place] [address] Social History Tobacco Use Types Packs/Day [...] [facility] [address] [place] [address] Romero Jimenez MD [address] [facility] [place] [address] documented as of this encounter Visit Diagnoses Not on filedocumented in this encounter Care Teams Credit Card Associate Relationship Specialty Start Date End Date Truong Colon MD [address] [place] [address] PCP - General Internal Medicine 03/06/23 documented as of this encounter
--- OUTSIDE RECORDS SUMMARY | 2025-01-05 15:46 | XMS_ITS | Encounter Summary ---
Author Organization [facility] [place] [address] Care Team Providers Care Senior Core Java Developer Name Role Phone Truong Colon MD Primary Care Provider Encounter Details Date Type Department Care Team (Late Contact Info) Description 10/30/2024 Lab Requisition [facility] - Main Lab [address] [facility] [place] [address] Ally Castañeda MD [address] [place] [address] Spinal stenosis, site unspecified; Chronic [...] Description 11/04/2025 10:30 AM EDT Office Visit [facility] Hematology Oncology [address] [place] [address] Jennifer Ca MD [address] [place] [address] [phone] (work) documented as of this encounter Procedures [...] mmol/L LAB CHEMISTRY METHOD 10/31/2024 11:08 AM [facility] Potassium 4.7 3.5 - 5.5 mmol/L LAB CHEMISTRY METHOD 10/31/2024 11:08 AM [facility] Chloride 109 96 - 110 mmol/L LAB CHEMISTRY METHOD 10/31/2024 11:08 AM [facility] CO2 30 21 - 32 mmol/L LAB CHEMISTRY METHOD 10/31/2024 11:08 AM [facility] Anion Gap 3 3 - 11 LAB CHEMISTRY METHOD 10/31/2024 11:08 AM [facility] Glucose 78 70 - 100 mg/dL LAB CHEMISTRY METHOD 10/31/2024 11:08 AM [facility] BUN 11 5 - 25 mg/dL LAB CHEMISTRY METHOD 10/31/2024 11:08 AM [facility] Creatinine 0.92 0.50 - 1.10 mg/dL LAB CHEMISTRY METHOD 10/31/2024 11:08 AM [facility] eGFR 63 >=60 mL/min/1. 73m2 LAB CHEMISTRY METHOD 10/31/2024 11:08 AM [facility] Comment:Calculation based on the Chronic Kidney Disease Epidemiology Collaboration (CKD-EPI) equation refit without adjustment for race. BUN/Creatinine Ratio 12.0 LAB CHEMISTRY METHOD 10/31/2024 11:08 AM EDT [facility] Calcium 8.9 8.5 - 10.5 mg/dL LAB CHEMISTRY METHOD 10/31/2024 11:08 AM [facility] Blood Venous blood specimen / Unknown Venipuncture / Unknown 10/31/2024 7:20 AM EDT 10/31/2024 10:27 AM EDT us Ally Castañeda MD LAB BLOOD ORDERABLES Final Resul t [facility] [address] [place] [address], * (ABNORMAL) Complete blood count (10/31/2024 7:20 AM EDT) WBC 3.7(L) 4.8 - 10.8 K/mcL LAB HEMETOLOGY METHOD 10/31/2024 10:38 AM [facility] RBC 3.60(L) 3.80 - 4.80 M/mcL LAB HEMETOLOGY METHOD 10/31/2024 10:38 AM [facility] Hemoglobin 9.9(L) 11.5 - 16.0 g/dL LAB HEMETOLOGY METHOD 10/31/2024 10:38 AM [facility] Hematocrit 32.8(L) 35.0 - 47.0 % LAB HEMETOLOGY METHOD 10/31/2024 10:38 AM [facility] MCV 90.6 79.0 - 98.0 FL LAB HEMETOLOGY METHOD 10/31/2024 10:38 AM [facility] MCH 27.3 27.0 - 32.0 pcg LAB HEMETOLOGY METHOD 10/31/2024 10:38 AM [facility] MCHC 30.2(L) 32.0 - 37.0 g/dL LAB HEMETOLOGY METHOD 10/31/2024 10:38 AM EDT [facility] RDW 15.1(H) 11.0 - 15.0 % LAB HEMETOLOGY METHOD 10/31/2024 10:38 AM EDT [facility] Platelets 239 130 - 400 K/mcL LAB HEMETOLOGY METHOD 10/31/2024 10:38 AM EDT [facility] MPV 10.6 7.0 - 11.0 FL LAB HEMETOLOGY METHOD 10/31/2024 10:38 AM EDT [facility] NRBC 0.0 <1.0 % LAB HEMETOLOGY METHOD 10/31/2024 10:38 AM EDT [facility] NRBC Absolute 0.00 <0.10 K/mcL LAB HEMETOLOGY METHOD 10/31/2024 10:38 AM EDT [facility] Blood Venous blood specimen / Unknown Venipuncture / Unknown 10/31/2024 7:20 AM EDT 10/31/2024 10:27 AM EDT us Ally Castañeda MD LAB BLOOD ORDERABLES Final Resul t [facility] [address] [place] [address], documented in this encounter Visit Diagnoses Diagnosis Spinal stenosis, site unspecified Chronic kidney disease, unspecified documented in this encounter Care Teams Senior Core Java Developer Relationship Specialty Start Date End Date Truong Colon MD [address] [place] PCP - General 05/19/22 documented as of this encounter
--- OUTSIDE RECORDS SUMMARY | 2025-01-05 15:46 | XMS_ITS | Encounter Summary ---
Author Organization [facility] Address [address] [place] [address] Phone Care Team Providers Care Electron Microscopist Name Role Phone Truong Colon MD Primary Care Provider +1- [phone] Encounter Details Date Type Department Care Team (Late Contact Info) Description 10/03/2024 Orders Only [facility] [address] [place] [address] Kylie Gabriel [address] [place] [address] Anemia in chronic kidney disease; [...] [facility] [address] [place] [address] Romero Jimenez MD [address] [facility] [place] [address] documented as of this encounter Visit Diagnoses Diagnosis Anemia in chronic kidney disease Stage 3b chronic kidney disease (HCC) Iron deficiency anemia, not otherwise specified documented in this encounter Care Teams Electron Microscopist Relationship Specialty Start Date End Date Truong Colon MD [address] [place] [address] PCP - General Internal Medicine 03/06/23 documented as of this encounter
--- OUTSIDE RECORDS SUMMARY | 2025-01-05 15:46 | XMS_ITS | Encounter Summary ---
Author Organization [facility] Address [address] [place] [address] Phone Care Team Providers Care Montessori Teacher Name Role Phone Truong Colon MD Primary Care Provider +1- [phone] Encounter Details Date Type Department Care Team (Late Contact Info) Description 10/31/2024 Orders Only [facility] [address] [place] [address] Kylie Gabriel [address] [place] [address] Anemia in chronic kidney disease; [...] [facility] [address] [place] [address] Romero Jimenez MD [address] [facility] [address] [place] [address] documented as of this encounter Visit Diagnoses Diagnosis Anemia in chronic kidney disease Stage 3b chronic kidney disease (HCC) Iron deficiency anemia, not otherwise specified documented in this encounter Care Teams Montessori Teacher Relationship Specialty Start Date End Date Truong Colon MD [address] [place] [address] PCP - General Internal Medicine 03/06/23 documented as of this encounter
--- OUTSIDE RECORDS SUMMARY | 2025-01-05 15:46 | XMS_ITS | Clinical Summary ---
Author Organization [email or web address] Address [address] [place] [address] Care Team Providers Care Supervisor Inspection Name Role Phone Truong Colon MD Primary Care Provider +1- [phone] Allergies Active Allergy Reactions Criticality Noted Date [...] age to complete this topic Care Teams Supervisor Inspection Relationship Specialty Start Date End Date Truong Colon MD [address] [place] [address] PCP - General Internal Medicine 05/19/22
--- OUTSIDE RECORDS SUMMARY | 2025-01-05 15:46 | XMS_ITS | Encounter Summary ---
Author Organization [facility] Address [address] [place] [address] Phone Care Team Providers Care Head Of Loss Prevention Name Role Phone Truong Colon MD Primary Care Provider +1- [phone] Encounter Details Date Type Department Care Team (Late Contact Info) Description 11/09/2021 Documentation Only [facility] [address] [place] [address] Dimitris Suarez PA [address] [place] [address] Social History Tobacco Use Types [...] Visit [facility] [address] [place] [address] Romero Jimenez MD [address] [facility] [place] [address] documented as of this encounter Visit Diagnoses Not on filedocumented in this encounter Care Teams Head Of Loss Prevention Relationship Specialty Start Date End Date Truong Colon MD [address] [place] [address] PCP - General Internal Medicine 03/06/23 documented as of this encounter
--- OUTSIDE RECORDS SUMMARY | 2025-01-05 15:46 | XMS_ITS | Encounter Summary ---
Author Organization [facility] Address [address] [place] [address] Phone Care Team Providers Care Computer Forensics Analyst Name Role Phone Truong Colon MD Primary Care Provider +1- [phone] Encounter Details Date Type Department Care Team (Late Contact Info) Description 04/04/2024 Documentation Only [facility] [address] [place] [address] Jasmin Dumont [address] [place] [address] Social History Tobacco Use Types [...] [facility] [address] [place] [address] Romero Jimenez MD [address] [place] [address] [place] [address] documented as of this encounter Visit Diagnoses Not on filedocumented in this encounter Care Teams Computer Forensics Analyst Relationship Specialty Start Date End Date Truong Colon MD [address] [place] [address] PCP - General Internal Medicine 03/06/23 documented as of this encounter
--- OUTSIDE RECORDS SUMMARY | 2025-01-05 15:46 | XMS_ITS | Encounter Summary ---
Author Organization [facility] Address [address] [place] [address] Phone Care Team Providers Care Flight Operations Coordinator Name Role Phone Truong Colon MD Primary Care Provider +1- [phone] Encounter Details Date Type Department Care Team (Late Contact Info) Description 06/03/2024 Documentation Only [facility] [address] [place] [address] Kylie Gabriel [address] [place] [address] Social History Tobacco Use Types [...] [facility] [address] [place] [address] Romero Jimenez MD [address] [place] [address] [place] [address] documented as of this encounter Visit Diagnoses Not on filedocumented in this encounter Care Teams Flight Operations Coordinator Relationship Specialty Start Date End Date Truong Colon MD [address] [place] [address] PCP - General Internal Medicine 03/06/23 documented as of this encounter
--- OUTSIDE RECORDS SUMMARY | 2025-01-05 15:46 | XMS_ITS | Encounter Summary ---
Author Organization [facility] Address [address] [place] [address] Phone Care Team Providers Care Needle Loom Operator Helper Name Role Phone Truong Colon MD Primary Care Provider +1- [phone] Encounter Details Date Type Department Care Team (Late Contact Info) Description 09/05/2024 Orders Only [facility] [address] [place] [place] [address] Kylie Gabriel [address] [place] [address] Anemia in chronic kidney disease; [...] Visit [facility] [address] [place] [place] [address] Romero Jimenez MD [address] [facility] [address] [place] [address] documented as of this encounter Visit Diagnoses Diagnosis Anemia in chronic kidney disease Stage 3b chronic kidney disease (HCC) Iron deficiency anemia, not otherwise specified documented in this encounter Care Teams Needle Loom Operator Helper Relationship Specialty Start Date End Date Truong Colon MD [address] [place] [address] PCP - General Internal Medicine 03/06/23 documented as of this encounter
--- OUTSIDE RECORDS SUMMARY | 2025-01-05 15:46 | XMS_ITS | Encounter Summary ---
Author Organization [facility] [place] [address] Care Team Providers Care Counseling Department Chair Name Role Phone Truong Colon MD Primary Care Provider Encounter Details Date Type Department Care Team (Late Contact Info) Description 10/16/2024 Lab Requisition [facility] - Main Lab [address] [facility] [place] [address] Ally Castañeda MD [address] [place] [address] Spinal stenosis, site unspecified; Chronic [...] 11/04/2025 10:30 AM EDT Office Visit [facility] Hematology Oncology [address] [place] [address] Jennifer Ca MD [address] [place] [address] [phone] (work) documented as of this encounter Procedures [...] mmol/L LAB CHEMISTRY METHOD 10/17/2024 12:13 PM [facility] Potassium 5.6(H) 3.5 - 5.5 mmol/L LAB CHEMISTRY METHOD 10/17/2024 12:13 PM [facility] Chloride 103 96 - 110 mmol/L LAB CHEMISTRY METHOD 10/17/2024 12:13 PM [facility] CO2 28 21 - 32 mmol/L LAB CHEMISTRY METHOD 10/17/2024 12:13 PM [facility] Anion Gap 5 3 - 11 LAB CHEMISTRY METHOD 10/17/2024 12:13 PM [facility] Glucose 77 70 - 100 mg/dL LAB CHEMISTRY METHOD 10/17/2024 12:13 PM [facility] BUN 23 5 - 25 mg/dL LAB CHEMISTRY METHOD 10/17/2024 12:13 PM [facility] Creatinine 1.02 0.50 - 1.10 mg/dL LAB CHEMISTRY METHOD 10/17/2024 12:13 PM [facility] eGFR 55(L) >=60 mL/min/1. 73m2 LAB CHEMISTRY METHOD 10/17/2024 12:13 PM [facility] Comment:Calculation based on the Chronic Kidney Disease Epidemiology Collaboration (CKD-EPI) equation refit without adjustment for race. BUN/Creatinine Ratio 22.5 LAB CHEMISTRY METHOD 10/17/2024 12:[address] [facility] Calcium 8.9 8.5 - 10.5 mg/dL LAB CHEMISTRY METHOD 10/17/2024 12:13 PM [facility] Blood Venous blood specimen / Unknown Venipuncture / Unknown 10/17/2024 7:36 AM EDT 10/17/2024 11:30 AM EDT us Ally Castañeda MD LAB BLOOD ORDERABLES Final Resul t [facility] [address] [place] [address], [place] [phone] * (ABNORMAL) Complete blood count (10/17/2024 7:36 AM EDT) WBC 6.5 4.8 - 10.8 K/mcL LAB HEMETOLOGY METHOD 10/17/2024 12:00 PM [facility] RBC 3.40(L) 3.80 - 4.80 M/mcL LAB HEMETOLOGY METHOD 10/17/2024 12:00 PM [facility] Hemoglobin 9.2(L) 11.5 - 16.0 g/dL LAB HEMETOLOGY METHOD 10/17/2024 12:00 PM [facility] Hematocrit 30.9(L) 35.0 - 47.0 % LAB HEMETOLOGY METHOD 10/17/2024 12:00 PM [facility] MCV 91.2 79.0 - 98.0 FL LAB HEMETOLOGY METHOD 10/17/2024 12:00 PM [facility] MCH 27.1 27.0 - 32.0 pcg LAB HEMETOLOGY METHOD 10/17/2024 12:00 PM [facility] MCHC 29.8(L) 32.0 - 37.0 g/dL LAB HEMETOLOGY METHOD 10/17/2024 12:[address] [facility] RDW 13.2 11.0 - 15.0 % LAB HEMETOLOGY METHOD 10/17/2024 12:[address] [facility] Platelets 495(H) 130 - 400 K/mcL LAB HEMETOLOGY METHOD 10/17/2024 12:[address] [facility] MPV 10.0 7.0 - 11.0 FL LAB HEMETOLOGY METHOD 10/17/2024 12:[address] [facility] NRBC 0.0 <1.0 % LAB HEMETOLOGY METHOD 10/17/2024 12:[address] [facility] NRBC Absolute 0.00 <0.10 K/mcL LAB HEMETOLOGY METHOD 10/17/2024 12:[address] [facility] Blood Venous blood specimen / Unknown Venipuncture / Unknown 10/17/2024 7:36 AM EDT 10/17/2024 11:30 AM EDT us Ally Castañeda MD LAB BLOOD ORDERABLES Final Resul t [facility] [address] [place] [address], documented in this encounter Visit Diagnoses Diagnosis Spinal stenosis, site unspecified Chronic kidney disease, unspecified documented in this encounter Care Teams Counseling Department Chair Relationship Specialty Start Date End Date Truong Colon MD [address] [place] [address] Dr Eric [place] PCP - General 05/19/22 documented as of this encounter
--- OUTSIDE RECORDS SUMMARY | 2025-01-05 15:46 | XMS_ITS | Encounter Summary ---
Author Organization [facility] Address [address] [place] [address] Phone Care Team Providers Care Career Technology Teacher Name Role Phone Truong Colon MD Primary Care Provider +1- [phone] Encounter Details Date Type Department Care Team (Late Contact Info) Description 10/26/2023 Documentation Only [facility] [address] [place] [address] Kylie Gabriel [address] [place] [address] Social History Tobacco Use [...] [facility] [address] [place] [address] Romero Jimenez MD [address] [place] [address] [place] [address] documented as of this encounter Visit Diagnoses Not on filedocumented in this encounter Care Teams Career Technology Teacher Relationship Specialty Start Date End Date Truong Colon MD [address] [place] [address] PCP - General Internal Medicine 03/06/23 documented as of this encounter
--- OUTSIDE RECORDS SUMMARY | 2025-01-05 15:46 | XMS_ITS | Encounter Summary ---
Author Organization [facility] [place], Address [address] [place] [address] Phone Care Team Providers Care Abrasives Sales Representative Name Role Phone Truong Colon MD Primary Care Provider +1- [phone] Encounter Details Date Type Department Care Team (Late Contact Info) Description 01/23/2024 Documentation Only [facility] [place], [facility] [place] [place] [address] Jasmin Dumont [address] [place] [address] Social History Tobacco Use Types Packs/Day [...] Visit [facility] [place], [address] [place] [address] Romero Jimenez MD [address] [facility] [address] [place] [address] documented as of this encounter Visit Diagnoses Not on filedocumented in this encounter Care Teams Abrasives Sales Representative Relationship Specialty Start Date End Date Truong Colon MD [address] [place] [address] PCP - General Internal Medicine 03/06/23 documented as of this encounter
--- OUTSIDE RECORDS SUMMARY | 2025-01-05 15:46 | XMS_ITS | Clinical Summary ---
Author Organization [facility] [place], Address [address] [place] [address] [place] [address] Phone Care Team Providers Care Tools And Parts Attendant Name Role Phone Truong Colon MD Primary Care Provider +1- [phone] Allergies Active Allergy Reactions Criticality Noted Date [...] Only [facility] [place], [address] [place] [address] Kylie Gabriel Anemia in chronic kidney disease; Stage 3b chronic kidney disease (HCC); Iron deficiency anemia, not otherwise specified 12/02/2024 1:40 PM EDT Office Visit [facility] [address] [place] [address] Romero Jimenez MD Stage 3b chronic kidney disease (HCC) (Primary Dx) 11/28/2024 Orders Only [facility] [address] [place] [address] Kylie Gabriel Anemia in chronic kidney disease; Stage 3b chronic kidney disease (HCC); Iron deficiency anemia, not otherwise specified 10/31/2024 Orders Only [facility] [address] [place] [address] Kylie Gabriel Anemia in chronic kidney disease; [...] Visit [facility] [place], [address] [place] [address] Romero Jimenez MD [address] [facility] [place] [id number] Health Maintenance Due Date Last Done Comments [...] Blood specimen (specimen) 10/17/2023 5:28 PM EDT Eligoi Meza MD POINT OF CARE TEST ORDERABLES Fi nal Result from Last 3 Months or Most Recently Relevant to Health Maintenance Insurance [facility] One [employer] Dual SNP ([id number]) Care Teams Tools And Parts Attendant Relationship Specialty Start Date End Date Truong Colon MD [address] [place] [id number] PCP - General Internal Medicine 03/06/23
--- OUTSIDE RECORDS SUMMARY | 2025-01-05 15:46 | XMS_ITS | Encounter Summary ---
Author Organization [facility] Address [address] [place] [address] Phone Care Team Providers Care Clinical Operations Consultant Name Role Phone Truong Colon MD Primary Care Provider +1- [phone] Encounter Details Date Type Department Care Team (Late Contact Info) Description 06/13/2024 Orders Only [facility] [address] [facility] [address] [place] [place] [address] Kylie Gabriel [address] [place] [address] Anemia in chronic kidney disease; [...] Visit [facility] [address] [facility] [address] [place] [place] [address] Romero Jimenez MD [address] [facility] [place] [address] documented as of this encounter Visit Diagnoses Diagnosis Anemia in chronic kidney disease Stage 3b chronic kidney disease (HCC) Iron deficiency anemia, not otherwise specified documented in this encounter Care Teams Clinical Operations Consultant Relationship Specialty Start Date End Date Truong Colon MD [address] [place] [address] PCP - General Internal Medicine 03/06/23 documented as of this encounter
--- OUTSIDE RECORDS SUMMARY | 2025-01-05 15:46 | XMS_ITS | Encounter Summary ---
Author Organization [facility] Address [address] [place] [address] Phone Care Team Providers Care Hotel Receptionist Name Role Phone Truong Colon MD Primary Care Provider +1- [phone] Encounter Details Date Type Department Care Team (Late Contact Info) Description 07/02/2024 Documentation Only [facility] [address] [place] [address] [place] [address] [place] [address] Social History Tobacco Use Types Packs/Day [...] [facility] [address] [place] [address] Romero Jimenez MD [address] [place] [address] [place] [address] documented as of this encounter Visit Diagnoses Not on filedocumented in this encounter Care Teams Hotel Receptionist Relationship Specialty Start Date End Date Truong Colon MD [address] [place] [address] PCP - General Internal Medicine 03/06/23 documented as of this encounter
--- OUTSIDE RECORDS SUMMARY | 2025-01-05 15:46 | XMS_ITS | Clinical Summary ---
Author Organization [facility] Address [address] [place] [address] [address] [place] [address] Phone Care Team Providers Care Healthcare Risk Control Consultant Name Role Phone Dimple Vergara MD Primary [...] file Medical Devices Not on file Insurance [facility] MEDICARE REPLACEMENT [facility] MEDICARE [facility]PLACEMENT [facility] MEDICARE REPLACEMENT [facility] MEDICARE REPLACEMENT [facility] MEDICARE REPLACEMENT [facility] MEDICARE REPLACEMENT [facility] MEDICARE [facility]PLACEMENT [facility] MEDICARE REPLACEMENT [facility] MEDICARE REPLACEMENT Care Teams Healthcare Risk Control Consultant Relationship Specialty Start Date End Date Dimple Vergara MD [address] [place] [address] PCP - General 11/13/13 Additional Source Comments The information contained in this document represents components of the legal health record. It is not the complete legal health record.[facility]
--- OUTSIDE RECORDS SUMMARY | 2025-01-05 15:46 | XMS_ITS | Encounter Summary ---
Author Organization [facility] [place] [address] Care Team Providers Care Snow Fence Erector Name Role Phone Truong Colon MD Primary Care Provider +1 [phone] Encounter Details Date Type Department Care Team (Late Contact Info) Description 10/22/2024 Lab Requisition [facility] - Main Lab 299 [facility] [place] [address] Ally Castañeda MD [address] [place], [place] [id number] Essential (primary) hypertension; Anemia, unspecified Social History [...] Description 11/04/2025 10:30 AM EDT Office Visit [facility] Hematology Oncology [address] [place] [address] Jennifer Ca MD [address] [place] [address] documented as of this encounter [...] LAB CHEMISTRY METHOD 10/22/2024 9:41 AM EDT [facility] Blood Venous blood specimen / Unknown Venipuncture / Unknown 10/22/2024 5:26 AM EDT 10/22/2024 8:36 AM EDT us Ally Castañeda MD LAB BLOOD ORDERABLES Final Resul t [facility] [address] [place] [address], * (ABNORMAL) Basic metabolic panel (10/22/2024 5:26 AM EDT) Pathologist [facility] Sodium 140 133 - 145 mmol/L LAB CHEMISTRY METHOD 10/22/2024 9:41 AM EDT [facility] Potassium 5.5 3.5 - 5.5 mmol/L LAB CHEMISTRY METHOD 10/22/2024 9:41 AM EDT [facility] Chloride 107 96 - 110 mmol/L LAB CHEMISTRY METHOD 10/22/2024 9:41 AM EDT [facility] CO2 30 21 - 32 mmol/L LAB CHEMISTRY METHOD 10/22/2024 9:41 AM EDT [facility] Anion Gap 3 3 - 11 LAB CHEMISTRY METHOD 10/22/2024 9:41 AM EDT [facility] Glucose 69(L) 70 - 100 mg/dL LAB CHEMISTRY METHOD 10/22/2024 9:41 AM EDT [facility] BUN 21 5 - 25 mg/dL LAB CHEMISTRY METHOD 10/22/2024 9:41 AM EDT [facility] Creatinine 0.90 0.50 - 1.10 mg/dL LAB CHEMISTRY METHOD 10/22/2024 9:41 AM EDT [facility] eGFR 64 >=60 mL/min/1. 73m2 LAB CHEMISTRY METHOD 10/22/2024 9:41 AM EDT [facility] Comment:Calculation based on the [...] MD LAB BLOOD ORDERABLES Final Resul t [facility] [address] [place] [address], * (ABNORMAL) Complete blood count (10/22/2024 5:26 AM EDT) WBC 5.7 4.8 - 10.8 K/mcL LAB HEMETOLOGY METHOD 10/22/2024 9:09 AM EDT [facility] RBC 3.20(L) 3.80 - [...] MD LAB BLOOD ORDERABLES Final Resul t [facility] [address] [place] [address], documented in this encounter Visit Diagnoses Diagnosis Essential (primary) hypertension Unspecified essential hypertension Anemia, unspecified documented in this encounter Care Teams Snow Fence Erector Relationship Specialty Start Date End Date Truong Colon MD [address] [place] [address] Dr [address] [place], [place] PCP - General 05/19/22 documented as of this encounter
--- OUTSIDE RECORDS SUMMARY | 2025-01-05 15:46 | XMS_ITS | Encounter Summary ---
Author Organization [facility] [place] [address] Care Team Providers Care Railways Assistant Name Role Phone Truong Colon MD Primary Care Provider [phone] [phone] Encounter Details Date Type Department Care Team (Late st Contact Info) Description 10/10/2024 Lab Requisition [facility] - Main Lab 299 [facility] [place] [id number] Ally Castañeda MD [address] [place] [address] Malignant neoplasm of unspecified site of unspecified female breast ([facility]/HCC V24, [facility] V28); Hypothyroidism, unspecified; Vitamin D deficiency, [...] [facility] Hematology Oncology [address] [place] [id number] Jennifer Ca MD [address] [place] [phone] documented as of this encounter Procedures Procedure Name Priority Date/Time Associated Diagnosis Comments THYROID STIMULATING HORMONE WITH REFLEX TO FREE T4 AND FREE T3 Routine 10/10/2024 5:37 AM EDT Malignant neoplasm of unspecified site of unspecified female breast ([facility]/HCC V24, [facility]/HCC V28) Hypothyroidism, unspecified Vitamin D deficiency, unspecified Vitamin B12 deficiency anemia, unspecified Spinal stenosis, site unspecified Chronic kidney disease, stage 3 unspecified ([facility]/HCC V24, [facility]/HCC V28) VITAMIN D 25 HYDROXY Routine 10/10/2024 5:37 AM EDT Malignant neoplasm of unspecified site of unspecified female breast ([facility]/HCC V24, [facility]/HCC V28) Hypothyroidism, unspecified Vitamin D [...] of unspecified female breast (CMS/HCC V24, [facility]/HCC V28) Hypothyroidism, unspecified Vitamin D deficiency, unspecified Vitamin B12 deficiency anemia, unspecified Spinal stenosis, site unspecified Chronic kidney disease, stage 3 unspecified (CMS/HCC V24, CMS/HCC V28) VITAMIN B12 Routine 10/10/2024 5:37 AM EDT Malignant neoplasm of unspecified site of unspecified female breast ([facility] V24, [facility] V28) Hypothyroidism, unspecified Vitamin D deficiency, unspecified Vitamin B12 deficiency anemia, unspecified Spinal stenosis, site unspecified Chronic kidney disease, stage 3 unspecified ([facility] V24, [facility] V28) COMPREHENSIVE METABOLIC PANEL Routine 10/10/2024 5:37 AM EDT Malignant neoplasm of unspecified site of unspecified female breast ([facility] V24, [facility] V28) Hypothyroidism, unspecified Vitamin D deficiency, unspecified Vitamin B12 deficiency anemia, unspecified Spinal stenosis, site unspecified Chronic kidney disease, stage 3 unspecified ([facility] V24, [facility] V28) documented in this encounter Results [...] Resul t [facility] [address] [place] [address], [place] [phone] * Folate (10/10/2024 5:37 AM EDT) Folate 12.9 2.8 - 17.0 ng/ml LAB CHEMISTRY METHOD 10/10/2024 11:35 AM EDT [facility] Blood Venous blood specimen / Unknown Venipuncture / Unknown 10/10/2024 5:37 AM EDT 10/10/2024 9:30 AM EDT us Ally Castañeda MD LAB BLOOD ORDERABLES Final Resul t Performing Organization Address [facility]/ZIP Co de Phone Number [facility] [address] [place] [address], [place] [phone] * Vitamin B12 (10/10/2024 5:37 AM EDT) Vitamin B-12 371 250 - 900 pcg/mL LAB CHEMISTRY METHOD 10/10/2024 11:35 AM EDT [facility] Blood Venous blood specimen / Unknown Venipuncture / Unknown 10/10/2024 5:37 AM EDT 10/10/2024 9:30 AM EDT us Ally Castañeda MD LAB BLOOD ORDERABLES Final Resul t Performing Organization Address [facility] de Phone Number [facility] [address] [place] [address], * Thyroid stimulating hormone with reflex to free t4 and free t3 (10/10/2024 5:37 AM EDT) Pathologist [facility] TSH 2.96 0.40 - 4.00 mcIU/mL LAB CHEMISTRY METHOD 10/10/2024 1:01 PM EDT [facility] Blood Venous blood specimen / Unknown Venipuncture / Unknown 10/10/2024 5:37 AM EDT 10/10/2024 9:30 AM EDT us Ally Castañeda MD LAB BLOOD ORDERABLES Final Resul t Performing Organization Address [facility]/ZIP Co de Phone Number [facility] [address] [place] [address], [place] [phone] * (ABNORMAL) Comprehensive metabolic panel (10/10/2024 5:37 AM EDT) Sodium 130(L) 133 - 145 mmol/L LAB CHEMISTRY METHOD 10/10/2024 11:35 AM EDT [facility] Potassium 4.9 3.5 - 5.5 mmol/L LAB CHEMISTRY METHOD 10/10/2024 11:35 AM [facility] Chloride 97 96 - 110 mmol/L LAB CHEMISTRY METHOD 10/10/2024 11:35 AM [facility] CO2 28 21 - 32 mmol/L LAB CHEMISTRY METHOD 10/10/2024 11:35 AM [facility] Anion Gap 5 3 - 11 LAB CHEMISTRY METHOD 10/10/2024 11:35 AM [facility] Glucose 82 70 - 100 [...] Resul t [facility] [address] [place] [address], [place] [phone] * (ABNORMAL) Complete blood count (10/10/2024 5:37 AM EDT) WBC 9.2 4.8 - 10.8 K/mcL LAB HEMETOLOGY METHOD 10/10/2024 10:58 AM EDT [facility] RBC 3.10(L) 3.80 - 4.80 M/mcL LAB HEMETOLOGY METHOD 10/10/2024 10:58 AM EDT [facility] Hemoglobin 8.8(L) 11.5 - 16.0 g/dL LAB HEMETOLOGY METHOD 10/10/2024 10:58 AM EDT [facility] Hematocrit 28.0(L) 35.0 - 47.0 % LAB HEMETOLOGY METHOD 10/10/2024 10:58 AM EDT [facility] MCV 89.7 79.0 - 98.0 FL LAB HEMETOLOGY METHOD 10/10/2024 10:58 AM EDT [facility] MCH 28.2 27.0 - 32.0 pcg LAB HEMETOLOGY METHOD 10/10/2024 10:58 AM EDT [facility] MCHC 31.4(L) 32.0 - 37.0 g/dL LAB HEMETOLOGY METHOD 10/10/2024 10:58 AM EDT [facility] RDW 13.2 11.0 - 15.0 % LAB HEMETOLOGY METHOD 10/10/2024 10:58 AM EDT [facility] Platelets 261 130 - 400 K/mcL LAB HEMETOLOGY METHOD 10/10/2024 10:58 AM EDT [facility] MPV 11.0 7.0 - 11.0 FL LAB HEMETOLOGY METHOD 10/10/2024 10:58 AM EDT [facility] NRBC 0.0 <1.0 % LAB HEMETOLOGY METHOD 10/10/2024 10:58 AM EDT [facility] NRBC Absolute 0.00 <0.10 K/mcL LAB HEMETOLOGY METHOD 10/10/2024 10:58 AM EDT [facility] Blood Venous blood specimen / Unknown Venipuncture / Unknown 10/10/2024 5:37 AM EDT 10/10/2024 9:30 AM EDT us Ally Castañeda MD LAB BLOOD ORDERABLES Final Resul t [facility] [address] [place] [address], documented in this encounter Visit Diagnoses Diagnosis Malignant neoplasm of unspecified site of unspecified female breast (CMS/HCC V24, CMS/HCC V28) Hypothyroidism, unspecified Vitamin D deficiency, unspecified Vitamin B12 deficiency anemia, unspecified Spinal stenosis, site unspecified Chronic kidney disease, stage 3 unspecified (CMS/HCC V24, CMS/HCC V28) documented in this encounter Care Teams Railways Assistant Relationship Specialty Start Date End Date Truong Colon MD [address] [facility] [address] [facility] [address] JAEL Christian PCP - General 05/19/22 documented as of this encounter
--- OUTSIDE RECORDS SUMMARY | 2025-01-05 15:46 | XMS_ITS ---
Author Organization [facility] Address [address] [place] [address] Care Team Providers Care Marine Biologist Name Role Phone Truong Colon MD Primary Care Provider +1- [phone] Active Problems Problem Noted Date Diagnosed Date [...]
--- OUTSIDE RECORDS SUMMARY | 2025-01-05 15:46 | XMS_ITS | Encounter Summary ---
Author Organization [facility] Address [address] [place] [address] Phone Care Team Providers Care Corporate Technical Recruiter Name Role Phone Truong Colon MD Primary Care Provider +1- [phone] Encounter Details Date Type Department Care Team (Late Contact Info) Description 04/29/2024 Documentation Only [facility] [address] [place] [address] Britt Sol [address] [place] [address] Social History Tobacco Use Types [...] [facility] [address] [place] [address] Romero Jimenez MD [address] [place] [address] [place] [address] documented as of this encounter Visit Diagnoses Not on filedocumented in this encounter Care Teams Corporate Technical Recruiter Relationship Specialty Start Date End Date Truong Colon MD [address] [place] [address] PCP - General Internal Medicine 03/06/23 documented as of this encounter
--- OUTSIDE RECORDS SUMMARY | 2025-01-05 15:46 | XMS_ITS ---
Author Organization [facility] Address [address] [place] [address] [place] [address] Phone Care Team Providers Care Email Marketing Intern Name Role Phone Truong Colon MD Primary Care Provider +1- [phone] Active Problems Problem Noted Date Diagnosed Date [...]
--- OUTSIDE RECORDS SUMMARY | 2025-01-05 15:46 | XMS_ITS | Encounter Summary ---
Author Organization [facility] Address [address] [place] [address] Phone Care Team Providers Care Fly Winder Name Role Phone Truong Colon MD Primary Care Provider +1- [phone] Encounter Details Date Type Department Care Team (Late Contact Info) Description 04/11/2022 Documentation Only [facility] [address] [place] [address] Kylie Gabriel [address] [place] [address] Social History Tobacco Use Types [...] [facility] [address] [place] [address] Romero Jimenez MD [address] [place] [address] [place] [address] documented as of this encounter Visit Diagnoses Not on filedocumented in this encounter Care Teams Fly Winder Relationship Specialty Start Date End Date Truong Colon MD [address] [place] [address] PCP - General Internal Medicine 03/06/23 documented as of this encounter
--- OUTSIDE RECORDS SUMMARY | 2025-01-05 15:46 | XMS_ITS | Encounter Summary ---
Author Organization [facility] Address [address] [place] [address] Phone Care Team Providers Care Die Stamper Name Role Phone Truong Colon MD Primary Care Provider +1- [phone] Encounter Details Date Type Department Care Team (Late Contact Info) Description 05/04/2022 Documentation Only [facility] [address] [place] [address] Kylie Gabriel [address] [place] [address] Social History Tobacco Use Types [...] [facility] [address] [place] [place] [address] Romero Jimenez MD [address] [place] [address] [place] [address] documented as of this encounter Visit Diagnoses Not on filedocumented in this encounter Care Teams Die Stamper Relationship Specialty Start Date End Date Truong Colon MD [address] [place] [address] PCP - General Internal Medicine 03/06/23 documented as of this encounter
--- OUTSIDE RECORDS SUMMARY | 2025-01-05 15:46 | XMS_ITS | Encounter Summary ---
Author Organization [facility] [place] [address] Care Team Providers Care Solution Design And Analysis Manager Name Role Phone Truong Colon MD Primary Care Provider [phone] Encounter Details Date Type Department Care Team (Late Contact Info) Description 10/22/2024 Lab Requisition [facility] - Main Lab [address] [facility] [place] [address] Ally Castañeda MD [address] [place] [address] Spinal stenosis, site unspecified; Chronic [...] Description 11/04/2025 10:30 AM EDT Office Visit [facility] Hematology Oncology [address] [place] [address] Jennifer Ca MD [address] [place] [address] [phone] (work) documented as of this encounter Procedures [...] mmol/L LAB CHEMISTRY METHOD 10/23/2024 11:28 AM [facility] Potassium 4.6 3.5 - 5.5 mmol/L LAB CHEMISTRY METHOD 10/23/2024 11:28 AM [facility] Chloride 107 96 - 110 mmol/L LAB CHEMISTRY METHOD 10/23/2024 11:28 AM [facility] CO2 29 21 - 32 mmol/L LAB CHEMISTRY METHOD 10/23/2024 11:28 AM [facility] Anion Gap 4 3 - 11 LAB CHEMISTRY METHOD 10/23/2024 11:28 AM [facility] Glucose 65(L) 70 - 100 mg/dL LAB CHEMISTRY METHOD 10/23/2024 11:28 AM [facility] BUN 17 5 - 25 mg/dL LAB CHEMISTRY METHOD 10/23/2024 11:28 AM [facility] Creatinine 0.87 0.50 - 1.10 mg/dL LAB CHEMISTRY METHOD 10/23/2024 11:28 AM [facility] eGFR 67 >=60 mL/min/1. 73m2 LAB CHEMISTRY METHOD 10/23/2024 11:28 AM [facility] Comment:Calculation based on the Chronic Kidney Disease Epidemiology Collaboration (CKD-EPI) equation refit without adjustment for race. BUN/Creatinine Ratio 19.5 LAB CHEMISTRY METHOD 10/23/2024 11:28 AM EDT [facility] Calcium 8.7 8.5 - 10.5 mg/dL LAB CHEMISTRY METHOD 10/23/2024 11:28 AM [facility] Blood Venous blood specimen / Unknown Venipuncture / Unknown 10/23/2024 5:09 AM EDT 10/23/2024 10:13 AM EDT us Ally Castañeda MD LAB BLOOD ORDERABLES Final Resul t [facility] [address] [place] [address], * (ABNORMAL) Complete blood count (10/23/2024 5:09 AM EDT) WBC 4.8 4.8 - 10.8 K/mcL LAB HEMETOLOGY METHOD 10/23/2024 10:31 AM [facility] RBC 3.10(L) 3.80 - 4.80 M/mcL LAB HEMETOLOGY METHOD 10/23/2024 10:31 AM [facility] Hemoglobin 8.3(L) 11.5 - 16.0 g/dL LAB HEMETOLOGY METHOD 10/23/2024 10:31 AM [facility] Hematocrit 27.9(L) 35.0 - 47.0 % LAB HEMETOLOGY METHOD 10/23/2024 10:31 AM [facility] MCV 90.3 79.0 - 98.0 FL LAB HEMETOLOGY METHOD 10/23/2024 10:31 AM [facility] MCH 26.9(L) 27.0 - 32.0 pcg LAB HEMETOLOGY METHOD 10/23/2024 10:31 AM [facility] MCHC 29.7(L) 32.0 - 37.0 g/dL LAB HEMETOLOGY METHOD 10/23/2024 10:31 AM EDT [facility] RDW 13.7 11.0 - 15.0 % LAB HEMETOLOGY METHOD 10/23/2024 10:31 AM EDT [facility] Platelets 342 130 - 400 K/mcL LAB HEMETOLOGY METHOD 10/23/2024 10:31 AM EDT [facility] MPV 10.0 7.0 - 11.0 FL LAB HEMETOLOGY METHOD 10/23/2024 10:31 AM EDT [facility] NRBC 0.0 <1.0 % LAB HEMETOLOGY METHOD 10/23/2024 10:31 AM EDT [facility] NRBC Absolute 0.00 <0.10 K/mcL LAB HEMETOLOGY METHOD 10/23/2024 10:31 AM EDT [facility] Blood Venous blood specimen / Unknown Venipuncture / Unknown 10/23/2024 5:09 AM EDT 10/23/2024 10:13 AM EDT us Ally Castañeda MD LAB BLOOD ORDERABLES Final Resul t [facility] [address] [place] [address], documented in this encounter Visit Diagnoses Diagnosis Spinal stenosis, site unspecified Chronic kidney disease, unspecified documented in this encounter Care Teams Solution Design And Analysis Manager Relationship Specialty Start Date End Date Truong Colon MD [address] [place] [address] Dr [address] JAEL Christian PCP - General 05/19/22 documented as of this encounter
--- OUTSIDE RECORDS SUMMARY | 2025-01-05 15:46 | XMS_ITS | Encounter Summary ---
Author Organization [facility] Address [address] [place] [address] Phone Care Team Providers Care Eyeglass Lens Generator Name Role Phone Truong Colon MD Primary Care Provider +1- [phone] Encounter Details Date Type Department Care Team (Late Contact Info) Description 10/26/2023 Documentation Only [facility] [address] [place] [address] Kylie Gabriel [address] [place] [address] Social History Tobacco Use Types [...] [facility] [address] [place] [address] Romero Jimenez MD [address] [place] [address] [place] [address] documented as of this encounter Visit Diagnoses Not on filedocumented in this encounter Care Teams Eyeglass Lens Generator Relationship Specialty Start Date End Date Truong Colon MD [address] [place] [address] PCP - General Internal Medicine 03/06/23 documented as of this encounter
--- OUTSIDE RECORDS SUMMARY | 2025-01-05 15:46 | XMS_ITS | Encounter Summary ---
Author Organization [facility] Address [address] [place] [address] Phone Care Team Providers Care Workers Compensation Defense Attorney Name Role Phone Truong Colon MD Primary Care Provider +1- [phone] Encounter Details Date Type Department Care Team (Late Contact Info) Description 07/31/2024 Documentation Only [facility] [address] [place] [address] Kylie Gabriel [address] [place] [address] Social History Tobacco Use Types [...] [facility] [address] [place] [address] Romero Jimenez MD [address] [place] [address] [place] [address] documented as of this encounter Visit Diagnoses Not on filedocumented in this encounter Care Teams Workers Compensation Defense Attorney Relationship Specialty Start Date End Date Truong Colon MD [address] [place] [address] PCP - General Internal Medicine 03/06/23 documented as of this encounter
--- OUTSIDE RECORDS SUMMARY | 2025-01-05 15:46 | XMS_ITS | Encounter Summary ---
Author Organization [facility] Address [address] [place] [address] Phone Care Team Providers Care Railroad Dispatcher Name Role Phone Truong Colon MD Primary Care Provider +1- [phone] Encounter Details Date Type Department Care Team (Late Contact Info) Description 10/29/2023 Documentation Only [facility] [address] [place] [address] Kylie Gabriel [address] [place], [place] [...] Visit [facility] [address] [place] [address] Romero Jimenez MD [address] [place] [address] [place] [address] documented as of this encounter Visit Diagnoses Not on filedocumented in this encounter Care Teams Railroad Dispatcher Relationship Specialty Start Date End Date Truong Colon MD [address] [place] [address] PCP - General Internal Medicine 03/06/23 documented as of this encounter
--- OUTSIDE RECORDS SUMMARY | 2025-01-05 15:46 | XMS_ITS | Encounter Summary ---
Author Organization [facility] Address [address] [place] [address] Phone Care Team Providers Care Senior Architect/Design Manager Name Role Phone Truong Colon MD Primary Care Provider +1- [phone] Encounter Details Date Type Department Care Team (Late Contact Info) Description 07/11/2024 Orders Only [facility] [address] [place] [address] Kylie Gabriel [address] [place] [address] Anemia in chronic kidney disease; [...] [facility] [address] [place] [address] Romero Jimenez MD [address] [place] [address] documented as of this encounter Visit Diagnoses Diagnosis Anemia in chronic kidney disease Stage 3b chronic kidney disease (HCC) Iron deficiency anemia, not otherwise specified documented in this encounter Care Teams Senior Architect/Design Manager Relationship Specialty Start Date End Date Truong Colon MD [address] [place] [address] PCP - General Internal Medicine 03/06/23 documented as of this encounter
--- OUTSIDE RECORDS SUMMARY | 2025-01-05 15:46 | XMS_ITS | Encounter Summary ---
Author Organization [facility] Address [address] [place] [address] Phone Care Team Providers Care Electrical Engineering Intern Name Role Phone Truong Colon MD Primary Care Provider +1- [phone] Encounter Details Date Type Department Care Team (Late Contact Info) Description 08/04/2024 Documentation Only [facility] [address] [place] [address] Kylie Gabriel [address] [place] [address] Social History Tobacco Use Types [...] [facility] [address] [place] [address] Romero Jimenez MD [address] [place] [address] [place] [address] documented as of this encounter Visit Diagnoses Not on filedocumented in this encounter Care Teams Electrical Engineering Intern Relationship Specialty Start Date End Date Truong Colon MD [address] [place] [address] PCP - General Internal Medicine 03/06/23 documented as of this encounter
--- OUTSIDE RECORDS SUMMARY | 2025-01-05 15:46 | XMS_ITS | Clinical Summary ---
Author Organization [facility] Address [address] [place] [address] Phone Care Team Providers Care Production Painter Name Role Phone Truong Colon MD Primary Care Provider +1 [phone] Allergies Active Allergy Reactions Criticality Noted Date [...] left breast in female, estrogen receptor positive ([facility] V24, [facility] V28) 07/03/2023 Iron deficiency anemia 05/18/2022 Acquired hypothyroidism 03/28/2017 Gastroesophageal reflux disease without esophagi tis 03/28/2017 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 Encounters Date Type Department Care Team Description 11/06/2024 Lab Requisition [facility] Lab [address] [place] [id number] Ally Castañeda MD Spinal stenosis, site unspecified; Chronic kidney disease, unspecified 11/04/2024 10:45 AM EDT Office Visit [facility] Hematology Oncology [address] [place] [address] Jennifer Ca MD Malignant neoplasm of upper-outer quadrant of left breast in female, estrogen receptor positive ([facility] V24, [facility] V28) (Primary Dx) 10/30/2024 Lab Requisition [facility] Lab [address] [place] [phone] Ally Castañeda MD Spinal stenosis, site unspecified; Chronic kidney disease, unspecified 10/22/2024 Lab Requisition [facility] Lab [address] [place] [address] Ally Castañeda MD Spinal stenosis, site unspecified; Chronic kidney disease, unspecified 10/22/2024 Lab Requisition [facility] Lab [address] [place] [address] Ally Castañeda MD Essential (primary) hypertension; Anemia, unspecified 10/16/2024 Lab Requisition [facility] Lab [address] [place] [address] Ally Castañeda MD Spinal stenosis, site unspecified; Chronic kidney disease, unspecified 10/10/[address] [facility] [address] [facility] [place] [address] Ally Castañeda MD Malignant neoplasm of unspecified site of unspecified female breast ([facility] V24, [facility] V28); Hypothyroidism, unspecified; Vitamin D deficiency, unspecified; Vitamin B12 deficiency anemia, unspecified; Spinal stenosis, site unspecified; Chronic kidney disease, stage 3 unspecified ([facility] V24, [facility] V28) from Last 3 Months Surgical History Surgery Date Site/Laterality Comments LUMBAR DISC SURGERY PROCEDURE:LUMBAR DISC SURGERY Medical History Medical History Date Comments Malignant neoplasm of upper- outer quadrant of left female breast ([facility] V24, [facility] V28) DX:Malignant neoplasm of upp er-outer quadrant [...] Description 11/04/2025 10:30 AM EDT Office Visit [facility] Hematology Oncology [address] [place] [address] Jennifer Ca MD [address] [place] [address] Health Maintenance Due Date Last [...] of unspecified site of unspecified female breast ([facility] V24, [facility] V28) Hypothyroidism, unspecified Vitamin D deficiency, unspecified [...] Resul t [facility] [address] [place] [address], * Basic metabolic panel (10/31/2024 7:20 AM [...] LAB CHEMISTRY METHOD [facility] eGFR 63 >=60 mL/min/1. 73m2 LAB CHEMISTRY METHOD 10/31/2024 11:08 AM EDT [facility] Comment:Calculation based on the Chronic Kidney Disease Epidemiology Collaboration (CKD-EPI) equation refit without adjustment for race. BUN/Creatinine Ratio 12.0 LAB CHEMISTRY METHOD 10/31/2024 11:08 AM EDT [facility] Calcium 8.9 8.5 - 10.5 mg/dL LAB CHEMISTRY METHOD 10/31/2024 11:[facility] Blood Venous blood specimen / Unknown Venipuncture / Unknown 10/31/2024 7:20 AM EDT 10/31/2024 10:27 AM EDT us Ally Castañeda MD LAB BLOOD ORDERABLES Final Resul t Performing Organization Address City/[facility]/ZIP Co de Phone Number [facility] [address] [place] [address], * (ABNORMAL) Ferritin (10/22/2024 5:26 AM EDT) Ferritin 283(H) 8 - 252 ng/mL LAB CHEMISTRY METHOD 10/22/2024 9:41 AM EDT [facility] Blood Venous blood specimen / Unknown Venipuncture / Unknown 10/22/2024 5:26 AM EDT 10/22/2024 8:36 AM EDT us Ally Castañeda MD LAB BLOOD ORDERABLES Final Resul t [facility] [address] [place] [address], [place] [phone] * Thyroid stimulating hormone with reflex to free t4 and free t3 (10/10/2024 5:37 AM EDT) [facility] TSH 2.96 0.40 - 4.00 mcIU/mL LAB CHEMISTRY METHOD 10/10/2024 1:01 PM EDT [facility] Blood Venous blood specimen / Unknown Venipuncture / Unknown 10/10/2024 5:37 AM EDT 10/10/2024 9:30 AM EDT us Ally Castañeda MD LAB BLOOD ORDERABLES Final Resul t Performing Organization Address City/[facility]/ZIP Co de Phone Number [facility] [address] [place] [address], [place] [phone] * Vitamin D 25 hydroxy (10/10/2024 5:37 AM EDT) [facility] Vit D, 25-Hydroxy 52.0 30.0 - 80.0 ng/mL LAB CHEMISTRY METHOD 10/10/2024 1:00 PM EDT [facility] Blood Venous blood specimen / Unknown Venipuncture / Unknown 10/10/2024 5:37 AM EDT 10/10/2024 9:30 AM EDT us Ally Castañeda MD LAB BLOOD ORDERABLES Final Resul t [facility] [address] [place] [address], [place] [phone] * Folate (10/10/2024 5:37 AM EDT) [facility] Folate 12.9 2.8 - 17.0 ng/ml LAB CHEMISTRY METHOD 10/10/2024 11:35 AM EDT [facility] Blood Venous blood specimen / Unknown Venipuncture / Unknown 10/10/2024 5:37 AM EDT 10/10/2024 9:30 AM EDT us Ally Castañeda MD LAB BLOOD ORDERABLES Final Resul t Performing Organization Address City/[facility]/ZIP Co de Phone Number [facility] [address] [place] [address], [place] [phone] * Vitamin B12 (10/10/2024 5:37 AM EDT) [facility] Vitamin B-12 371 250 - 900 pcg/mL LAB CHEMISTRY METHOD 10/10/2024 11:35 AM EDT [facility] Blood Venous blood specimen / Unknown Venipuncture / Unknown 10/10/2024 5:37 AM EDT 10/10/2024 9:30 AM EDT us Ally Castañeda MD LAB BLOOD ORDERABLES Final Resul t Performing Organization Address City/[facility]/ZIP Co de Phone Number [facility] [address] [place] [address], [place] [phone] * (ABNORMAL) Comprehensive metabolic panel (10/10/2024 5:37 AM EDT) [facility] Sodium 130(L) 133 - 145 mmol/L LAB [...] LAB BLOOD ORDERABLES Final Resul t [facility] [address] [place] [address], * DXA BONE DENSITY STUDY 1+ SITS AXIAL SKEL (10/07/2021 10:23 AM EDT) Anatomical Region Laterality Modality Bone Densitometr y 05/10/2021 11:5 1 AM EST Narrative 10/07/2021 4:32 PM EDT Clinical history: other osteoporosis Scans of the lumbar spine and hips were performed on a [employer] fan beam bone densitometer. Bone mineral density [...] spine and hips were performed on a [employer] Ocean Softwarefan beam bone densitometer. Bone mineral density measurements [...] Group ID:[id number] Type:Not on file Address: [address] [place] [address] Care Teams Production Painter Relationship Specialty Start Date End Date Truong Colon MD [address] [place] [address] Dr [address] [place] PCP - General 05/19/22
--- OUTSIDE RECORDS SUMMARY | 2025-01-05 15:46 | XMS_ITS | Encounter Summary ---
Author Organization [facility] Address [address] [place] [address] Phone Care Team Providers Care Model Maker Name Role Phone Truong Colon MD Primary Care Provider +1- [phone] Encounter Details Date Type Department Care Team (Late Contact Info) Description 01/21/2024 Orders Only [facility] [address] [place] [address] Dimitris Suarez PA [address] [place] [address] [place] [address] Stage 3a chronic kidney disease [...] Visit [facility] [address] [place] [address] Romero Jimenez MD [address] [place] [address] [place] [address] documented as of this encounter Visit Diagnoses Diagnosis Stage 3a chronic kidney disease (HCC) Essential hypertension Peripheral vascular disease (HCC) Peripheral vascular disease Renal osteodystrophy documented in this encounter Care Teams Model Maker Relationship Specialty Start Date End Date Truong Colon MD [address] [place] [address] PCP - General Internal Medicine 03/06/23 documented as of this encounter
--- OUTSIDE RECORDS SUMMARY | 2025-01-05 15:46 | XMS_ITS | Encounter Summary ---
Author Organization [facility] Address [address] [place] [address] Phone Care Team Providers Care Web Search Evaluator Name Role Phone Truong Colon MD Primary Care Provider +1- [phone] Encounter Details Date Type Department Care Team (Late Contact Info) Description 01/31/2024 Documentation Only [facility] [address] [place] [address] Kylie Gabriel [address] [place] [address] Social History Tobacco Use Types [...] [facility] [address] [place] [address] Romero Jimenez MD [address] [place] [address] [place] [address] documented as of this encounter Visit Diagnoses Not on filedocumented in this encounter Care Teams Web Search Evaluator Relationship Specialty Start Date End Date Truong Colon MD [address] [place] [address] PCP - General Internal Medicine 03/06/23 documented as of this encounter
--- OUTSIDE RECORDS SUMMARY | 2025-01-05 15:46 | XMS_ITS | Encounter Summary ---
Author Organization [facility] [place] [address] Care Team Providers Care Income Tax Investigator Name Role Phone Truong Colon MD Primary Care Provider Encounter Details Date Type Department Care Team (Late Contact Info) Description 11/06/2024 Lab Requisition [facility] [address] [facility] [place] [address] Ally Castañeda MD [address] [place] [address] Spinal stenosis, site unspecified; Chronic [...] Description 11/04/2025 10:30 AM EDT Office Visit Hematology Oncology [address] [place] [address] Jennifer Ca MD [address] [place] [address] documented as of this encounter Visit Diagnoses Diagnosis Spinal stenosis, site unspecified Chronic kidney disease, unspecified documented in this encounter Care Teams Income Tax Investigator Relationship Specialty Start Date End Date Troung Colon MD [address] [place] [address] Dr [address] [place], [place] PCP - General 05/19/22 documented as of this encounter
== END 2025-01-05 13:44 | disposition home or self-care (01) ==
LOC: HO.HNS 11:28
PROVIDERS: PCP Internal Medicine; Visit Provider Physician Assistant
DX: M54.16 Radiculopathy, lumbar region (principal)
CPT/HCPCS: 99213

== ENCOUNTER → 2025-01-05 11:27 | Outpatient (BNVA) | payer OTHER, SELFPAY | PROVIDERS: PCP Internal Medicine; Visit Provider Physician Assistant | DX: M54.16 Radiculopathy, lumbar region (principal) | CPT/HCPCS: 99212 ==

== ENCOUNTER 2025-01-15 11:17 | Day surgery (SDC) | payer OTHER, SELFPAY ==
--- OUTSIDE RECORDS SUMMARY | 2024-10-30 10:45 | XMS_ITS ---
Author Organization [facility] Address [address] [facility], [place] [address] Care Team Providers Care Retail Marketing Executive Name Role Phone Isaiah DURAN, Truong Primary Care Provider UnaBoby Bermudez Unavailable [phone] Encounters Encounter Location Date Provider Diagnosis [facility] [address] [address] 10/30/2024 Boby Chapman Plan Of Treatment Next Appt Details Provider Name:Boby Chapman , 03/30/2025 01:30:00 PM, [address] [facility], [place] [address], [place], [address], Progress Notes * Tommie BLANCASOB:[birth year] (79 yo F)Acc No.[id number]:10/30/2024 Progress Note Patient: Jacinda NUNEZ Provider: Alex Chapman DPM :1945 A ge:79 Y S ex:Female Date:10/30/2024 Address:[address] [place] [address], [place], [id number] Pcp:Truong Colon MD Subjective: * Chief Complaints: [...] 10/30/2024 Generated for Yovanny toussaint/Daniel on: 0 01/08/2025 12:58 PM EDT
--- OUTSIDE RECORDS SUMMARY | 2025-01-08 12:58 | XMS_ITS | Encounter Summary ---
Author Organization [facility] Address [address] [place] [address] Phone Care Team Providers Care Tobacco Acreage Measurer Name Role Phone Truong Colon MD Primary Care Provider +1- [phone] Encounter Details Date Type Department Care Team (Late Contact Info) Description 05/16/2024 Orders Only [facility] [address] [place] [address] Kylie Gabriel [address] [place] [address] Anemia in chronic kidney disease; [...] Visit [facility] [address] [place] [address] Romero Jimenez MD [address] [place] [address] documented as of this encounter Visit Diagnoses Diagnosis Anemia in chronic kidney disease Stage 3b chronic kidney disease (HCC) Iron deficiency anemia, not otherwise specified documented in this encounter Care Teams Tobacco Acreage Measurer Relationship Specialty Start Date End Date Truong Colon MD [address] [place] [address] PCP - General Internal Medicine 03/06/23 documented as of this encounter
--- OUTSIDE RECORDS SUMMARY | 2025-01-08 12:58 | XMS_ITS | Encounter Summary ---
Author Organization [facility] Address [address] [place] [address] Phone Care Team Providers Care Cattle Driver Name Role Phone Truong Colon MD Primary Care Provider +1- [phone] Encounter Details Date Type Department Care Team (Late Contact Info) Description 04/24/2024 Documentation Only [facility] [address] [place] [address] Kylie Gabriel [address] [place] [address] Social History Tobacco Use Types [...] [facility] [address] [place] [address] Romero Jimenez MD [address] [place] [address] [place] [address] documented as of this encounter Visit Diagnoses Not on filedocumented in this encounter Care Teams Cattle Driver Relationship Specialty Start Date End Date Truong Colon MD [address] [place] [address] PCP - General Internal Medicine 03/06/23 documented as of this encounter
--- OUTSIDE RECORDS SUMMARY | 2025-01-08 12:58 | XMS_ITS | Encounter Summary ---
Author Organization [facility] Address [address] [place] [address] Phone Care Team Providers Care Route Rider Supervisor Name Role Phone Truong Colon MD Primary Care Provider +1- [phone] Encounter Details Date Type Department Care Team (Late Contact Info) Description 12/21/2021 Documentation Only [facility] [address] [place] [address] Dimitris Suarez PA [address] [place] [address] Social History Tobacco Use Types [...] Visit [facility] [address] [place] [address] Romero Jimenez MD [address] [facility] [place] [address] documented as of this encounter Visit Diagnoses Not on filedocumented in this encounter Care Teams Route Rider Supervisor Relationship Specialty Start Date End Date Truong Colon MD [address] [place] [address] PCP - General Internal Medicine 03/06/23 documented as of this encounter
--- OUTSIDE RECORDS SUMMARY | 2025-01-08 12:58 | XMS_ITS | Encounter Summary ---
Author Organization [facility] Address [address] [place] [address] Phone Care Team Providers Care Criminal Records Technician Name Role Phone Truong Colon MD Primary Care Provider +1- [phone] Encounter Details Date Type Department Care Team (Late Contact Info) Description 04/04/2024 Documentation Only [facility] [address] [place] [address] Jasmin Dumont [address] [place] [address] Social History Tobacco [...] [facility] [address] [place] [address] Romero Jimenez MD [address] [place] [address] [place] [address] documented as of this encounter Visit Diagnoses Not on filedocumented in this encounter Care Teams Criminal Records Technician Relationship Specialty Start Date End Date Truong Colon MD [address] [place] [address] PCP - General Internal Medicine 03/06/23 documented as of this encounter
--- OUTSIDE RECORDS SUMMARY | 2025-01-08 12:58 | XMS_ITS | Encounter Summary ---
Author Organization [facility] Address [address] [place] [address] Phone Care Team Providers Care Medicaid Specialist Name Role Phone Truong Colon MD Primary Care Provider +1- [phone] Encounter Details Date Type Department Care Team (Late Contact Info) Description 05/12/2021 Documentation Only [facility] [address] [place] [address] Eligio Meza MD [address] [place] [address] [place] [address] Social History Tobacco Use Types [...] Visit [facility] [address] [place] [address] Romero Jimenez MD [address] [facility] [place] [address] documented as of this encounter Visit Diagnoses Not on filedocumented in this encounter Care Teams Medicaid Specialist Relationship Specialty Start Date End Date Truong Colon MD [address] [place] [address] PCP - General Internal Medicine 03/06/23 documented as of this encounter
--- OUTSIDE RECORDS SUMMARY | 2025-01-08 12:58 | XMS_ITS | Encounter Summary ---
Author Organization [facility] Address [address] [place] [address] Phone Care Team Providers Care Vp Digital Marketing Name Role Phone Truong Colon MD Primary Care Provider +1- [phone] Encounter Details Date Type Department Care Team (Late Contact Info) Description 08/04/2024 Documentation Only [facility] [address] [place] [address] Kylie Gabriel [address] [place] [address] Social History Tobacco Use Types [...] [facility] [address] [place] [address] Romero Jimenez MD [address] [place] [address] [place] [address] documented as of this encounter Visit Diagnoses Not on filedocumented in this encounter Care Teams Vp Digital Marketing Relationship Specialty Start Date End Date Truong Colon MD [address] [place] [address] PCP - General Internal Medicine 03/06/23 documented as of this encounter
--- OUTSIDE RECORDS SUMMARY | 2025-01-08 12:58 | XMS_ITS | Encounter Summary ---
Author Organization [facility] Address [address] [place] [address] Phone Care Team Providers Care Or Nurse Manager Name Role Phone Truong Colon MD Primary Care Provider +1- [phone] Encounter Details Date Type Department Care Team (Late Contact Info) Description 11/28/2024 Orders Only [facility] [address] [place] [address] Kylie Gabriel [address] [place] [address] Anemia in chronic kidney disease; [...] [facility] [address] [place] [address] Romero Jimenez MD [address] [place] [address] documented as of this encounter Visit Diagnoses Diagnosis Anemia in chronic kidney disease Stage 3b chronic kidney disease (HCC) Iron deficiency anemia, not otherwise specified documented in this encounter Care Teams Or Nurse Manager Relationship Specialty Start Date End Date Truong Colon MD [address] [place] [address] PCP - General Internal Medicine 03/06/23 documented as of this encounter
--- OUTSIDE RECORDS SUMMARY | 2025-01-08 12:58 | XMS_ITS | Encounter Summary ---
Author Organization [facility] Address [address] [place] [address] Phone Care Team Providers Care Shark Biologist Name Role Phone Truong Colon MD Primary Care Provider +1- [phone] Encounter Details Date Type Department Care Team (Late Contact Info) Description 08/12/2024 Documentation Only [facility] [address] [place] [address] [place] [address] [place] [address] Social History Tobacco Use Types Packs/Day [...] [facility] [address] [place] [address] Romero Jimenez MD [address] [place] [address] [place] [address] documented as of this encounter Visit Diagnoses Not on filedocumented in this encounter Care Teams Shark Biologist Relationship Specialty Start Date End Date Truong Colon MD [address] [place] [address] PCP - General Internal Medicine 03/06/23 documented as of this encounter
--- OUTSIDE RECORDS SUMMARY | 2025-01-08 12:58 | XMS_ITS ---
Author Organization [employer] [facility] Address [address] [place] [address] Care Team Providers Care Tanker Service Attendant Name Role Phone Truong Colon MD Primary Care Provider +1- [phone] Active Problems Problem Noted Date Diagnosed Date Iron deficiency anemia 05/18/2022 Malignant neoplasm of upper- outer quadrant of left breast in female, estrogen receptor positive 03/28/2017 Gastroesophageal reflux disease without esophagi tis 03/28/2017 Acquired hypothyroidism 03/28/2017 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 Current Oncology Plans No current plan information found. Past Plans Radiation Treatments * No radiation treatments are documented for this patient in [facility]. Treatments may have been administered in another system.
--- OUTSIDE RECORDS SUMMARY | 2025-01-08 12:58 | XMS_ITS | Encounter Summary ---
Author Organization [facility] Address [address] [place] [address] Phone Care Team Providers Care Lead Producer Name Role Phone Truong Colon MD Primary Care Provider +1- [phone] Encounter Details Date Type Department Care Team (Late Contact Info) Description 05/27/2024 Documentation Only [facility] [address] [place] [address] Kylie Gabriel [address] [place] [address] Social History Tobacco Use Types [...] [facility] [address] [place] [address] Romero Jimenez MD [address] [place] [address] [place] [address] documented as of this encounter Visit Diagnoses Not on filedocumented in this encounter Care Teams Lead Producer Relationship Specialty Start Date End Date Truong Colon MD [address] [place] [address] PCP - General Internal Medicine 03/06/23 documented as of this encounter
--- OUTSIDE RECORDS SUMMARY | 2025-01-08 12:58 | XMS_ITS | Patient Health Record ---
Author Organization [employer] [facility] Address [address] [place] [address] Care Team Providers Care Purse Framer Name Role Phone Radha Pena Primary Care Provider Timoteo Schneider Unavailable [phone] Allergies Allergen (clinical drug ingredient) Drug/Non Drug [...] Problem Status W/U Status Risk Notes Problem [id number] Encounter for screening for malignant neoplasm of colon (Z12.11) Active confirmed Problem Screening for malignant neoplasm of rectum (257113131) Encounter for screening for malignant neoplasm of rectum (Z12.12) Active confirmed Problem [id number] Gastroesophageal reflux disease, esophagitis presence not specified (K21.9) Active confirmed Problem [id number] Constipation, unspecified constipation type (K59.00) Active confirmed Plan Of Treatment Future Test Test Name Order Date UPPER GI ENDOSCOPY 11/30/2015 COLONOSCOPY 11/30/2015 Insurance Providers Payer Name Payer Address Payer Phone Subscriber Number Group Number Insured Name Patient Relationship to Insured Coverage Start Date Coverage End Date [facility] [address] [place] [phone] [id number] NOE SALDIVAR Self - patient is the insured Medical (General) History Medical History History ICD Code Hypertension Kidney disease--mild renal insuffciency- -GFR of 40--Dr. Meza Denies [place],DM,CVA,Lung disease Neg. colonoscopy in 2004 exc ept for diverticulosis and internal hemorrhoids-- Neg. EGD in 2004--Dr. Bear Breast cancer on the left in 2013--lumpe ctomy and XRT Hypothyroidism GERD Surgical History Surgery Date(Month/Year) Cholecystectomy--Dr. Banks 2014 Bladder suspension Left lumpectomy for breast cancer in 4
--- OUTSIDE RECORDS SUMMARY | 2025-01-08 12:58 | XMS_ITS | Clinical Summary ---
Author Organization [employer] [facility] Address [address] [place] [address] Care Team Providers Care Felt Hat Flanging Operator Name Role Phone Truong Colon MD Primary Care Provider +1- [phone] Allergies Active Allergy Reactions Criticality Noted Date [...] age to complete this topic Care Teams Felt Hat Flanging Operator Relationship Specialty Start Date End Date Truong Colon MD [address] [place] [address] PCP - General Internal Medicine 05/19/22
--- OUTSIDE RECORDS SUMMARY | 2025-01-08 12:58 | XMS_ITS | Encounter Summary ---
Author Organization [facility] Address [address] [place] [address] Phone Care Team Providers Care Acid Bleacher Name Role Phone Truong Colon MD Primary Care Provider +1- [phone] Encounter Details Date Type Department Care Team (Late Contact Info) Description 12/26/2024 Orders Only [facility] [address] [place] [address] Kylie Gabriel [address] [place] [address] Anemia in chronic kidney [...] [facility] [address] [place] [address] Romero Jimenez MD [address] [facility] [place] [address] documented as of this encounter Visit Diagnoses Diagnosis Anemia in chronic kidney disease Stage 3b chronic kidney disease (HCC) Iron deficiency anemia, not otherwise specified documented in this encounter Care Teams Acid Bleacher Relationship Specialty Start Date End Date Truong Colon MD [address] [place] [address] PCP - General Internal Medicine 03/06/23 documented as of this encounter
--- OUTSIDE RECORDS SUMMARY | 2025-01-08 12:58 | XMS_ITS | Encounter Summary ---
Author Organization [facility] Address [address] [place] [address] Phone Care Team Providers Care Mining Detail Draftsperson Name Role Phone Truong Colon MD Primary Care Provider +1- [phone] Encounter Details Date Type Department Care Team (Late Contact Info) Description 04/10/2024 Documentation Only [facility] [address] [place] [address] Kylie Gabriel [address] [place] [address] Social History Tobacco Use Types [...] [facility] [address] [place] [address] Romero Jimenez MD [address] [place] [address] [place] [address] documented as of this encounter Visit Diagnoses Not on filedocumented in this encounter Care Teams Mining Detail Draftsperson Relationship Specialty Start Date End Date Truong Colon MD [address] [place] [address] PCP - General Internal Medicine 03/06/23 documented as of this encounter
--- OUTSIDE RECORDS SUMMARY | 2025-01-08 12:58 | XMS_ITS | Clinical Summary ---
Author Organization [facility] Address [address] [place] [address] Phone Care Team Providers Care Aviculturist Name Role Phone Truong Colon MD Primary Care Provider +1 [phone] Allergies Active Allergy Reactions Criticality Noted Date [...] left breast in female, estrogen receptor positive ([facility] V24, [facility] V28) 07/03/2023 Iron deficiency anemia 05/18/2022 Acquired hypothyroidism 03/28/2017 Gastroesophageal reflux disease without esophagi tis 03/28/2017 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 Encounters Date Type Department Care Team Description 11/06/2024 Lab Requisition [facility] [address] [place] [phone] Ally Castañeda MD Spinal stenosis, site unspecified; Chronic kidney disease, unspecified 11/04/2024 10:45 AM EDT Office Visit [facility] Hematology Oncology [address] [place] [phone] Jennifer Ca MD Malignant neoplasm of upper-outer quadrant of left breast in female, estrogen receptor positive ([facility] V24, [facility] V28) (Primary Dx) 10/30/2024 Lab Requisition [facility] [address] [place] [phone] Ally Castañeda MD Spinal stenosis, site unspecified; Chronic kidney disease, unspecified 10/22/2024 Lab Requisition [facility] [address] [place] [phone] Ally Castañeda MD Spinal stenosis, site unspecified; Chronic kidney disease, unspecified 10/22/2024 Lab Requisition [facility] [address] [place] [phone] Ally Castañeda MD Essential (primary) hypertension; Anemia, unspecified 10/16/2024 Lab Requisition [facility] [address] [place] [address] Ally Castañeda MD Spinal stenosis, site unspecified; Chronic kidney disease, unspecified 10/10/[address] [facility] [address] [facility] [place] [address] Ally Castañeda MD Malignant neoplasm of unspecified site of unspecified female breast ([facility] V24, [facility] V28); Hypothyroidism, unspecified; Vitamin D deficiency, unspecified; Vitamin B12 deficiency anemia, unspecified; Spinal stenosis, site unspecified; Chronic kidney disease, stage 3 unspecified ([facility] V24, [facility] V28) from Last 3 Months Surgical History Surgery Date Site/Laterality Comments LUMBAR DISC SURGERY PROCEDURE:LUMBAR DISC SURGERY Medical History Medical History Date Comments Malignant neoplasm of upper- outer quadrant of left female breast ([facility] V24, [facility] V28) DX:Malignant neoplasm of upp [...] Description 11/04/2025 10:30 AM EDT Office Visit [facility] Hematology Oncology [address] [place] [address] Jennifer Ca MD [address] [place] [address] Health Maintenance Due Date Last [...] of unspecified site of unspecified female breast ([facility] V24, [facility] V28) Hypothyroidism, unspecified Vitamin D [...] K/mcL LAB HEMETOLOGY METHOD 10/31/2024 10:38 AM [facility] RBC 3.60(L) 3.80 - 4.80 M/mcL LAB HEMETOLOGY METHOD 10/31/2024 10:38 AM [facility] Hemoglobin 9.9(L) 11.5 - 16.0 g/dL LAB HEMETOLOGY METHOD 10/31/2024 10:38 AM [facility] Hematocrit 32.8(L) 35.0 - 47.0 % LAB HEMETOLOGY METHOD 10/31/2024 10:38 AM [facility] MCV 90.6 79.0 - 98.0 FL LAB HEMETOLOGY METHOD 10/31/2024 10:38 AM [facility] MCH 27.3 27.0 - 32.0 pcg LAB HEMETOLOGY METHOD 10/31/2024 10:38 AM [facility] MCHC 30.2(L) 32.0 - 37.0 g/dL LAB HEMETOLOGY METHOD 10/31/2024 10:38 AM [facility] RDW 15.1(H) 11.0 - 15.0 % LAB HEMETOLOGY METHOD 10/31/2024 10:38 AM [facility] Platelets 239 130 - 400 [...] Final Resul t [facility] [address] [place] [address], * Basic metabolic panel (10/31/2024 7:20 AM EDT) Only the most recent of4 resultswithin the time period is included. Sodium 142 133 - 145 mmol/L LAB CHEMISTRY METHOD 10/31/2024 11:08 AM [facility] Potassium 4.7 3.5 - 5.5 mmol/L LAB CHEMISTRY METHOD 10/31/2024 11:08 AM [facility] Chloride 109 96 - 110 mmol/L LAB CHEMISTRY METHOD 10/31/2024 11:08 AM [facility] CO2 30 21 - 32 mmol/L LAB CHEMISTRY METHOD 10/31/2024 11:08 AM [facility] Anion Gap 3 3 - 11 LAB CHEMISTRY METHOD 10/31/2024 11:08 AM [facility] Glucose 78 70 - 100 mg/dL LAB CHEMISTRY METHOD 10/31/2024 11:08 AM EDT [facility] BUN 11 5 - 25 mg/dL LAB CHEMISTRY METHOD 10/31/2024 11:08 AM EDT [facility] Creatinine 0.92 0.50 - 1.10 mg/dL LAB CHEMISTRY METHOD [facility] eGFR 63 >=60 mL/min/1. 73m2 LAB CHEMISTRY METHOD 10/31/2024 11:08 AM EDT [facility] Comment:Calculation based on the Chronic Kidney Disease Epidemiology Collaboration (CKD-EPI) equation refit without adjustment for race. BUN/Creatinine Ratio 12.0 LAB CHEMISTRY METHOD 10/31/2024 11:08 AM EDT [facility] Calcium 8.9 8.5 - 10.5 mg/dL LAB CHEMISTRY METHOD 10/31/2024 11:[facility] Blood Venous blood specimen / Unknown Venipuncture / Unknown 10/31/2024 7:20 AM EDT 10/31/2024 10:27 AM EDT us Ally Castañeda MD LAB BLOOD ORDERABLES Final Resul t Performing Organization Address City/[facility]/ZIP Co de Phone Number [facility] [address] [place] [address], * (ABNORMAL) Ferritin (10/22/2024 5:26 AM EDT) Ferritin 283(H) 8 - 252 ng/mL LAB CHEMISTRY METHOD 10/22/2024 9:41 AM EDT [facility] Blood Venous blood specimen / Unknown Venipuncture / Unknown 10/22/2024 5:26 AM EDT 10/22/2024 8:36 AM EDT us Ally Castañeda MD LAB BLOOD ORDERABLES Final Resul t [facility] [address] [place] [address], [place] [phone] * Thyroid stimulating hormone with reflex to free t4 and free t3 (10/10/2024 5:37 AM EDT) [facility] TSH 2.96 0.40 - 4.00 mcIU/mL LAB CHEMISTRY METHOD 10/10/2024 1:01 PM EDT [facility] Blood Venous blood specimen / Unknown Venipuncture / Unknown 10/10/2024 5:37 AM EDT 10/10/2024 9:30 AM EDT us Ally Castañeda MD LAB BLOOD ORDERABLES Final Resul t Performing Organization Address City/[facility]/ZIP Co de Phone Number [facility] [address] [place] [address], [place] [phone] * Vitamin D 25 hydroxy (10/10/2024 5:37 AM EDT) [facility] Vit D, 25-Hydroxy 52.0 30.0 - 80.0 ng/mL LAB CHEMISTRY METHOD 10/10/2024 1:00 PM EDT [facility] Blood Venous blood specimen / Unknown Venipuncture / Unknown 10/10/2024 5:37 AM EDT 10/10/2024 9:30 AM EDT us Ally Castañeda MD LAB BLOOD ORDERABLES Final Resul t [facility] [address] [place] [address], [place] [phone] * Folate (10/10/2024 5:37 AM EDT) [facility] Folate 12.9 2.8 - 17.0 ng/ml LAB CHEMISTRY METHOD 10/10/2024 11:35 AM EDT [facility] Blood Venous blood specimen / Unknown Venipuncture / Unknown 10/10/2024 5:37 AM EDT 10/10/2024 9:30 AM EDT us Ally Castañeda MD LAB BLOOD ORDERABLES Final Resul t Performing Organization Address City/[facility]/ZIP Co de Phone Number [facility] [address] [place] [address], [place] [phone] * Vitamin B12 (10/10/2024 5:37 AM EDT) [facility] Vitamin B-12 371 250 - 900 pcg/mL LAB CHEMISTRY METHOD 10/10/2024 11:35 AM EDT [facility] Blood Venous blood specimen / Unknown Venipuncture / Unknown 10/10/2024 5:37 AM EDT 10/10/2024 9:30 AM EDT us Ally Castañeda MD LAB BLOOD ORDERABLES Final Resul t Performing Organization Address City/[facility]/ZIP Co de Phone Number [facility] [address] [place] [address], [place] [phone] * (ABNORMAL) Comprehensive metabolic panel (10/10/2024 5:37 AM EDT) [facility] Sodium 130(L) 133 - 145 mmol/L [...] 10/10/2024 11:35 AM EDT [facility] Glucose 82 70 - 100 mg/dL LAB CHEMISTRY METHOD 10/10/2024 11:35 AM [facility] BUN 37(H) 5 - 25 mg/dL LAB CHEMISTRY METHOD 10/10/2024 11:35 AM [facility] Creatinine 1.16(H) 0.50 - 1.10 mg/dL LAB CHEMISTRY METHOD 10/10/2024 11:35 AM [facility] eGFR 47(L) >=60 mL/min/1. 73m2 LAB CHEMISTRY METHOD 10/10/2024 11:35 AM [facility] Comment:Calculation based on the Chronic Kidney Disease Epidemiology Collaboration (CKD-EPI) equation refit without adjustment for race. BUN/Creatinine Ratio 31.9 LAB CHEMISTRY METHOD 10/10/2024 11:35 AM [facility] Calcium 8.9 8.5 - 10.5 mg/dL LAB CHEMISTRY METHOD 10/10/2024 11:35 AM [facility] AST (SGOT) 42 10 - 42 unit/L LAB CHEMISTRY METHOD 10/10/2024 11:35 AM [facility] ALT (SGPT) 48 10 - 60 unit/L LAB CHEMISTRY METHOD 10/10/2024 11:35 AM [facility] Alkaline Phosphatase 98 42 - 121 unit/L LAB CHEMISTRY METHOD 10/10/2024 11:35 AM [facility] Total Protein 6.3 6.0 - 8.0 g/dL LAB CHEMISTRY METHOD 10/10/2024 11:35 AM [facility] Albumin 2.3(L) 3.2 - 5.0 g/dL LAB CHEMISTRY METHOD 10/10/2024 11:35 AM [facility] Total Bilirubin 0.4 0.0 - 1.4 mg/dL LAB CHEMISTRY METHOD 10/10/2024 11:35 AM [facility] Blood Venous blood specimen / Unknown Venipuncture / Unknown 10/10/2024 5:37 AM EDT 10/10/2024 9:30 AM EDT us Ally Castañeda MD LAB BLOOD ORDERABLES Final Resul t [facility] [address] [place] [address], * DXA BONE DENSITY STUDY 1+ SITS AXIAL SKEL (10/07/2021 10:23 AM EDT) Anatomical Region Laterality Modality Bone Densitometr y 05/10/2021 11:5 1 AM EST Narrative 10/07/2021 4:32 PM EDT Clinical history: other osteoporosis Scans of the lumbar spine and hips were performed on a [employer] fan beam bone densitometer. Bone mineral density [...] spine and hips were performed on a [employer] beam bone densitometer. Bone mineral density measurements [...] Group ID:[id number] Type:Not on file Address: [address] [place] [address] Care Teams Aviculturist Relationship Specialty Start Date End Date Truong Colon MD [address] [place] [address] Dr [address] [place] PCP - General 05/19/22
--- OUTSIDE RECORDS SUMMARY | 2025-01-08 12:58 | XMS_ITS | Encounter Summary ---
Author Organization [facility] Address [address] [place] [address] Phone Care Team Providers Care Mission Commander Name Role Phone Truong Colon MD Primary Care Provider +1- [phone] Encounter Details Date Type Department Care Team (Late Contact Info) Description 04/10/2024 Documentation Only [facility] [address] [place] [address] Kylie Gabriel [address] [place] [address] Social History Tobacco Use Types [...] [facility] [address] [place] [address] Romero Jimenez MD [address] [place] [address] [place] [address] documented as of this encounter Visit Diagnoses Not on filedocumented in this encounter Care Teams Mission Commander Relationship Specialty Start Date End Date Truong Colon MD [address] [place] [address] PCP - General Internal Medicine 03/06/23 documented as of this encounter
--- OUTSIDE RECORDS SUMMARY | 2025-01-08 12:58 | XMS_ITS | Encounter Summary ---
Author Organization [facility] Address [address] [place] [address] Phone Care Team Providers Care Foreign Language Interpreter Name Role Phone Truong Colon MD Primary Care Provider +1- [phone] Encounter Details Date Type Department Care Team (Late Contact Info) Description 08/08/2024 Orders Only [facility] [address] [place] [address] Kylie Gabriel [address] [place] [address] Anemia in chronic kidney disease; [...] Visit [facility] [address] [place] [address] Romero Jimenez MD [address] [facility] [place] [address] documented as of this encounter Visit Diagnoses Diagnosis Anemia in chronic kidney disease Stage 3b chronic kidney disease (HCC) Iron deficiency anemia, not otherwise specified documented in this encounter Care Teams Foreign Language Interpreter Relationship Specialty Start Date End Date Truong Colon MD [address] [place] [address] PCP - General Internal Medicine 03/06/23 documented as of this encounter
--- OUTSIDE RECORDS SUMMARY | 2025-01-08 12:58 | XMS_ITS | Encounter Summary ---
Author Organization [facility] Address [address] [place] [address] Phone Care Team Providers Care Goodwill Representative Name Role Phone Truong Colon MD Primary Care Provider +1- [phone] Encounter Details Date Type Department Care Team (Late Contact Info) Description 11/09/2021 Documentation Only [facility] [address] [place] [address] Dimitris Suarez PA [address] [place] [address] Social History Tobacco Use Types [...] Visit [facility] [address] [place] [address] Romero Jimenez MD [address] [facility] [place] [address] documented as of this encounter Visit Diagnoses Not on filedocumented in this encounter Care Teams Goodwill Representative Relationship Specialty Start Date End Date Truong Colon MD [address] [place] [address] PCP - General Internal Medicine 03/06/23 documented as of this encounter
--- OUTSIDE RECORDS SUMMARY | 2025-01-08 12:59 | XMS_ITS | Encounter Summary ---
Author Organization [facility] [place] [address] Care Team Providers Care Multiple Tube Winding Machine Operator Name Role Phone Truong Colon MD Primary Care Provider Encounter Details Date Type Department Care Team (Late Contact Info) Description 10/16/2024 Lab Requisition [facility] - Main Lab [address] [facility] [address] Ally Castañeda MD [address] [address] Spinal stenosis, site unspecified; Chronic kidney [...] Description 11/04/2025 10:30 AM EDT Office Visit [facility] Hematology Oncology [address] [place] [address] Jennifer Ca MD [address] [place] [address] [phone] (work) documented as of this encounter Procedures [...] mmol/L LAB CHEMISTRY METHOD 10/17/2024 12:13 PM [facility] Potassium 5.6(H) 3.5 - 5.5 mmol/L LAB CHEMISTRY METHOD 10/17/2024 12:13 PM [facility] Chloride 103 96 - 110 mmol/L LAB CHEMISTRY METHOD 10/17/2024 12:13 PM [facility] CO2 28 21 - 32 mmol/L LAB CHEMISTRY METHOD 10/17/2024 12:13 PM [facility] Anion Gap 5 3 - 11 LAB CHEMISTRY METHOD 10/17/2024 12:13 PM [facility] Glucose 77 70 - 100 mg/dL LAB CHEMISTRY METHOD 10/17/2024 12:13 PM [facility] BUN 23 5 - 25 mg/dL LAB CHEMISTRY METHOD 10/17/2024 12:13 PM [facility] Creatinine 1.02 0.50 - 1.10 mg/dL LAB CHEMISTRY METHOD 10/17/2024 12:13 PM [facility] eGFR 55(L) >=60 mL/min/1. 73m2 LAB CHEMISTRY METHOD 10/17/2024 12:13 PM [facility] Comment:Calculation based on the Chronic Kidney Disease Epidemiology Collaboration (CKD-EPI) equation refit without adjustment for race. BUN/Creatinine Ratio 22.5 LAB CHEMISTRY METHOD 10/17/2024 12:13 PM T [facility] Calcium 8.9 8.5 - 10.5 mg/dL LAB CHEMISTRY METHOD 10/17/2024 12:13 PM [facility] Blood Venous blood specimen / Unknown Venipuncture / Unknown 10/17/2024 7:36 AM EDT 10/17/2024 11:30 AM EDT us Ally Castañeda MD LAB BLOOD ORDERABLES Final Resul t [facility] [address] [place] [address], [place] [phone] * (ABNORMAL) Complete blood count (10/17/2024 7:36 AM EDT) WBC 6.5 4.8 - 10.8 K/mcL LAB HEMETOLOGY METHOD 10/17/2024 12:00 PM [facility] RBC 3.40(L) 3.80 - 4.80 M/mcL LAB HEMETOLOGY METHOD 10/17/2024 12:00 PM [facility] Hemoglobin 9.2(L) 11.5 - 16.0 g/dL LAB HEMETOLOGY METHOD 10/17/2024 12:00 PM [facility] Hematocrit 30.9(L) 35.0 - 47.0 % LAB HEMETOLOGY METHOD 10/17/2024 12:00 PM [facility] MCV 91.2 79.0 - 98.0 FL LAB HEMETOLOGY METHOD 10/17/2024 12:00 PM [facility] MCH 27.1 27.0 - 32.0 pcg LAB HEMETOLOGY METHOD 10/17/2024 12:00 PM [facility] MCHC 29.8(L) 32.0 - 37.0 g/dL LAB HEMETOLOGY METHOD 10/17/2024 12:00 PM EDT [facility] RDW 13.2 11.0 - 15.0 % LAB HEMETOLOGY METHOD 10/17/2024 12:00 PM EDT [facility] Platelets 495(H) 130 - 400 K/mcL LAB HEMETOLOGY METHOD 10/17/2024 12:00 PM EDT [facility] MPV 10.0 7.0 - 11.0 FL LAB HEMETOLOGY METHOD 10/17/2024 12:00 PM EDT [facility] NRBC 0.0 <1.0 % LAB HEMETOLOGY METHOD 10/17/2024 12:00 PM EDT [facility] NRBC Absolute 0.00 <0.10 K/mcL LAB HEMETOLOGY METHOD 10/17/2024 12:00 PM EDT [facility] Blood Venous blood specimen / Unknown Venipuncture / Unknown 10/17/2024 7:36 AM EDT 10/17/2024 11:30 AM EDT us Ally Castañeda MD LAB BLOOD ORDERABLES Final Resul t [facility] [address] [place] [address], documented in this encounter Visit Diagnoses Diagnosis Spinal stenosis, site unspecified Chronic kidney disease, unspecified documented in this encounter Care Teams Multiple Tube Winding Machine Operator Relationship Specialty Start Date End Date Truong Colon MD [address] [place] [address] Dr Eric Christian [place] PCP - General 05/19/22 documented as of this encounter
--- OUTSIDE RECORDS SUMMARY | 2025-01-08 12:59 | XMS_ITS | Encounter Summary ---
Author Organization [facility] [place] [address] Care Team Providers Care Powertrain Control Systems Engineer Name Role Phone Truong Colon MD Primary Care Provider Encounter Details Date Type Department Care Team (Late Contact Info) Description 10/30/2024 Lab Requisition [facility] - Main Lab 299 [facility] [place] [address] Ally Castañeda MD [address] [place] [address] Spinal stenosis, site unspecified; Chronic [...] Description 11/04/2025 10:30 AM EDT Office Visit [facility] Hematology Oncology [address] [place] [address] Jennifer Ca MD [address] [place] [address] [phone] (work) documented as of this encounter Procedures [...] mmol/L LAB CHEMISTRY METHOD 10/31/2024 11:08 AM [facility] Potassium 4.7 3.5 - 5.5 mmol/L LAB CHEMISTRY METHOD 10/31/2024 11:08 AM [facility] Chloride 109 96 - 110 mmol/L LAB CHEMISTRY METHOD 10/31/2024 11:08 AM [facility] CO2 30 21 - 32 mmol/L LAB CHEMISTRY METHOD 10/31/2024 11:08 AM [facility] Anion Gap 3 3 - 11 LAB CHEMISTRY METHOD 10/31/2024 11:08 AM [facility] Glucose 78 70 - 100 mg/dL LAB CHEMISTRY METHOD 10/31/2024 11:08 AM [facility] BUN 11 5 - 25 mg/dL LAB CHEMISTRY METHOD 10/31/2024 11:08 AM [facility] Creatinine 0.92 0.50 - 1.10 mg/dL LAB CHEMISTRY METHOD 10/31/2024 11:08 AM [facility] eGFR 63 >=60 mL/min/1. 73m2 LAB CHEMISTRY METHOD 10/31/2024 11:08 AM [facility] Comment:Calculation based on the Chronic Kidney Disease Epidemiology Collaboration (CKD-EPI) equation refit without adjustment for race. BUN/Creatinine Ratio 12.0 LAB CHEMISTRY METHOD 10/31/2024 11:08 AM EDT [facility] Calcium 8.9 8.5 - 10.5 mg/dL LAB CHEMISTRY METHOD 10/31/2024 11:08 AM [facility] Blood Venous blood specimen / Unknown Venipuncture / Unknown 10/31/2024 7:20 AM EDT 10/31/2024 10:27 AM EDT us Ally Castañeda MD LAB BLOOD ORDERABLES Final Resul t [facility] [address] [place] [address], * (ABNORMAL) Complete blood count (10/31/2024 7:20 AM EDT) WBC 3.7(L) 4.8 - 10.8 K/mcL LAB HEMETOLOGY METHOD 10/31/2024 10:38 AM [facility] RBC 3.60(L) 3.80 - 4.80 M/mcL LAB HEMETOLOGY METHOD 10/31/2024 10:38 AM [facility] Hemoglobin 9.9(L) 11.5 - 16.0 g/dL LAB HEMETOLOGY METHOD 10/31/2024 10:38 AM [facility] Hematocrit 32.8(L) 35.0 - 47.0 % LAB HEMETOLOGY METHOD 10/31/2024 10:38 AM [facility] MCV 90.6 79.0 - 98.0 FL LAB HEMETOLOGY METHOD 10/31/2024 10:38 AM [facility] MCH 27.3 27.0 - 32.0 pcg LAB HEMETOLOGY METHOD 10/31/2024 10:38 AM [facility] MCHC 30.2(L) 32.0 - 37.0 g/dL LAB HEMETOLOGY METHOD 10/31/2024 10:38 AM EDT [facility] RDW 15.1(H) 11.0 - 15.0 % LAB HEMETOLOGY METHOD 10/31/2024 10:38 AM EDT [facility] Platelets 239 130 - 400 K/mcL LAB HEMETOLOGY METHOD 10/31/2024 10:38 AM EDT [facility] MPV 10.6 7.0 - 11.0 FL LAB HEMETOLOGY METHOD 10/31/2024 10:38 AM EDT [facility] NRBC 0.0 <1.0 % LAB HEMETOLOGY METHOD 10/31/2024 10:38 AM EDT [facility] NRBC Absolute 0.00 <0.10 K/mcL LAB HEMETOLOGY METHOD 10/31/2024 10:38 AM EDT [facility] Blood Venous blood specimen / Unknown Venipuncture / Unknown 10/31/2024 7:20 AM EDT 10/31/2024 10:27 AM EDT us Ally Castañeda MD LAB BLOOD ORDERABLES Final Resul t [facility] [address] [place] [address], documented in this encounter Visit Diagnoses Diagnosis Spinal stenosis, site unspecified Chronic kidney disease, unspecified documented in this encounter Care Teams Powertrain Control Systems Engineer Relationship Specialty Start Date End Date Truong Colon MD [address] [place] PCP - General 05/19/22 documented as of this encounter
--- OUTSIDE RECORDS SUMMARY | 2025-01-08 12:59 | XMS_ITS | Encounter Summary ---
Author Organization [facility] Address [address] [place] [address] Phone Care Team Providers Care Traffic Operations Manager Name Role Phone Truong Colon MD Primary Care Provider +1- [phone] Encounter Details Date Type Department Care Team (Late Contact Info) Description 09/05/2024 Orders Only [facility] [address] [place] [address] Kylie Gabriel [address] [place] [address] Anemia in chronic kidney disease; [...] Of [facility] [address] [place] [address] Romero Jimenez MD [address] [place] [address] documented as of this encounter Visit Diagnoses Diagnosis Anemia in chronic kidney disease Stage 3b chronic kidney disease (HCC) Iron deficiency anemia, not otherwise specified documented in this encounter Care Teams Traffic Operations Manager Relationship Specialty Start Date End Date Truong Colon MD [address] [place] [address] PCP - General Internal Medicine 03/06/23 documented as of this encounter
--- OUTSIDE RECORDS SUMMARY | 2025-01-08 12:59 | XMS_ITS ---
Author Organization [facility] [place], Address [address] [place] [address] [place] [address] Phone Care Team Providers Care Payroll Manager Name Role Phone Truong Colon MD Primary Care Provider +1- [phone] Active Problems Problem Noted Date Diagnosed Date [...]
--- OUTSIDE RECORDS SUMMARY | 2025-01-08 12:59 | XMS_ITS | Encounter Summary ---
Author Organization [facility] Address [address] [place] [address] Phone Care Team Providers Care Hotel Receptionist Name Role Phone Truong Colon MD Primary Care Provider +1- [phone] Encounter Details Date Type Department Care Team (Late Contact Info) Description 10/26/2023 Documentation Only [facility] [address] [place] [address] Kylie Gabriel [address] [place] [address] Social History Tobacco Use Types [...] [facility] [address] [place] [address] Romero Jimenez MD [address] [place] [address] [place] [address] documented as of this encounter Visit Diagnoses Not on filedocumented in this encounter Care Teams Hotel Receptionist Relationship Specialty Start Date End Date Truong Colon MD [address] [place] [address] PCP - General Internal Medicine 03/06/23 documented as of this encounter
--- OUTSIDE RECORDS SUMMARY | 2025-01-08 12:59 | XMS_ITS | Encounter Summary ---
Author Organization [facility] Address [address] [place] [address] Phone Care Team Providers Care Social Media Specialist Name Role Phone Truong Colon MD Primary Care Provider +1- [phone] Encounter Details Date Type Department Care Team (Late Contact Info) Description 04/29/2024 Documentation Only [facility] [address] [place] [address] Britt Sol [address] [place] [address] Social History Tobacco Use Types [...] Visit [facility] [address] [place] [address] Romero Jimenez MD [address] [place] [address] [place] [address] documented as of this encounter Visit Diagnoses Not on filedocumented in this encounter Care Teams Social Media Specialist Relationship Specialty Start Date End Date Truong Colon MD [address] [place] [address] PCP - General Internal Medicine 03/06/23 documented as of this encounter
--- OUTSIDE RECORDS SUMMARY | 2025-01-08 12:59 | XMS_ITS | Clinical Summary ---
Author Organization [facility] Address [address] [place] [address] [address] [place] [address] Phone Care Team Providers Care Business Reporter Name Role Phone Dimple Vergara MD Primary [...] file Medical Devices Not on file Insurance [facility] MEDICARE REPLACEMENT [facility] MED[facility]ARE REPLACEMENT [facility] MED[facility]ARE [facility]PLACEMENT [facility] MEDICARE REPLACEMENT [facility] MEDICARE REPLACEMENT [facility] MEDICARE REPLACEMENT [facility] MEDICARE [facility]PLACEMENT [facility] MEDICARE REPLACEMENT [facility] MEDICARE REPLACEMENT Care Teams Business Reporter Relationship Specialty Start Date End Date Dimple Vergara MD [address] [place] [address] PCP - General 11/13/13 Additional Source Comments The information contained in this document represents components of the legal health record. It is not the complete legal health record.[facility]
--- OUTSIDE RECORDS SUMMARY | 2025-01-08 12:59 | XMS_ITS | Encounter Summary ---
Author Organization [facility] Address [address] [place] [address] Phone Care Team Providers Care Sdet Name Role Phone Truong Colon MD Primary Care Provider +1- [phone] Encounter Details Date Type Department Care Team (Late Contact Info) Description 01/21/2024 Orders Only [facility] [address] [place] [address] Dimitris Suarez PA [address] [place] [address] [place] [address] Stage 3a chronic kidney disease [...] [facility] [address] [place] [address] Romero Jimenez MD [address] [place] [address] [place] [address] documented as of this encounter Visit Diagnoses Diagnosis Stage 3a chronic kidney disease (HCC) Essential hypertension Peripheral vascular disease (HCC) Peripheral vascular disease Renal osteodystrophy documented in this encounter Care Teams Sdet Relationship Specialty Start Date End Date Truong Colon MD [address] [place] [address] PCP - General Internal Medicine 03/06/23 documented as of this encounter
--- OUTSIDE RECORDS SUMMARY | 2025-01-08 12:59 | XMS_ITS | Encounter Summary ---
Author Organization [facility] Address [address] [place] [address] Phone Care Team Providers Care Time Study Analyst Name Role Phone Truong Colon MD Primary Care Provider +1- [phone] Encounter Details Date Type Department Care Team (Late Contact Info) Description 10/29/2023 Documentation Only [facility] [address] [place] [address] Kylie Gabriel [address] [place] [address] Social History Tobacco Use [...] [facility] [address] [place] [address] Romero Jimenez MD [address] [place] [address] [place] [address] documented as of this encounter Visit Diagnoses Not on filedocumented in this encounter Care Teams Time Study Analyst Relationship Specialty Start Date End Date Truong Colon MD [address] [place] [address] PCP - General Internal Medicine 03/06/23 documented as of this encounter
--- OUTSIDE RECORDS SUMMARY | 2025-01-08 12:59 | XMS_ITS | Encounter Summary ---
Author Organization [facility] Address [address] [place] [address] Phone Care Team Providers Care Statistical Methods Teacher Name Role Phone Truong Colon MD Primary Care Provider +1- [phone] Encounter Details Date Type Department Care Team (Late Contact Info) Description 04/14/2022 Documentation Only [facility] [address] [place] [address] Eligio Meza MD [address] [place] [address] [place] [address] Social History Tobacco Use Types [...] Visit [facility] [address] [place] [address] Romero Jimenez MD [address] [place] [address] documented as of this encounter Visit Diagnoses Not on filedocumented in this encounter Care Teams Statistical Methods Teacher Relationship Specialty Start Date End Date Truong Colon MD [address] [place] [address] PCP - General Internal Medicine 03/06/23 documented as of this encounter
--- OUTSIDE RECORDS SUMMARY | 2025-01-08 12:59 | XMS_ITS | Encounter Summary ---
Author Organization [facility] [address] Care Team Providers Care Medical Researcher Name Role Phone Truong Colon MD Primary Care Provider +1 [phone] Encounter Details Date Type Department Care Team (Late Contact Info) Description 10/22/2024 Lab Requisition [facility] - Main Lab [address] [facility] [place] [address] Ally Castañeda MD [address] [place], [place] [id number] Essential (primary) hypertension; Anemia, unspecified Social History [...] [facility] Hematology Oncology [address] [place] [address] Jennifer Ca MD [address] [place] [address] documented as of this encounter [...] Ferritin (10/22/2024 5:26 AM EDT) Pathologist [facility] Ferritin 283(H) 8 - 252 ng/mL LAB CHEMISTRY METHOD 10/22/2024 9:41 AM EDT [facility] Blood Venous blood specimen / Unknown Venipuncture / Unknown 10/22/2024 5:26 AM EDT 10/22/2024 8:36 AM EDT us Ally Castañeda MD LAB BLOOD ORDERABLES Final Resul t [facility] [address] [place] [address], * (ABNORMAL) Basic metabolic panel (10/22/2024 5:26 AM EDT) Pathologist [facility] Sodium 140 133 - 145 mmol/L LAB CHEMISTRY METHOD 10/22/2024 9:41 AM EDT [facility] Potassium 5.5 3.5 - 5.5 mmol/L LAB CHEMISTRY METHOD 10/22/2024 9:41 AM EDT [facility] Chloride 107 96 - 110 mmol/L LAB CHEMISTRY METHOD 10/22/2024 9:41 AM EDT [facility] CO2 30 21 - 32 mmol/L LAB CHEMISTRY METHOD 10/22/2024 9:41 AM EDT [facility] Anion Gap 3 3 - 11 LAB CHEMISTRY METHOD 10/22/2024 9:41 AM EDT [facility] Glucose 69(L) 70 - 100 mg/dL LAB CHEMISTRY METHOD 10/22/2024 9:41 AM EDT [facility] BUN 21 5 - 25 mg/dL LAB CHEMISTRY METHOD 10/22/2024 9:41 AM EDT [facility] Creatinine 0.90 0.50 - 1.10 mg/dL LAB CHEMISTRY METHOD 10/22/2024 9:41 AM EDT [facility] eGFR 64 >=60 mL/min/1. 73m2 LAB CHEMISTRY METHOD 10/22/2024 9:41 AM EDT [facility] Comment:Calculation based on the Chronic Kidney Disease Epidemiology Collaboration (CKD-EPI) equation refit without adjustment for race. BUN/Creatinine Ratio 23.3 LAB CHEMISTRY METHOD 10/22/2024 9:41 AM [facility] Calcium 9.0 8.5 - 10.5 mg/dL LAB CHEMISTRY METHOD 10/22/2024 9:41 AM [facility] Blood Venous blood specimen / Unknown Venipuncture / Unknown 10/22/2024 5:26 AM EDT 10/22/2024 8:36 AM EDT us Ally Castañeda MD LAB BLOOD ORDERABLES Final Resul t [facility] [address] [place] [address], * (ABNORMAL) Complete blood count (10/22/2024 5:26 AM EDT) WBC 5.7 4.8 - 10.8 K/mcL LAB HEMETOLOGY METHOD 10/22/2024 9:09 AM EDT [facility] RBC 3.20(L) 3.80 - 4.80 M/mcL LAB HEMETOLOGY METHOD 10/22/2024 9:09 AM [facility] Hemoglobin 8.6(L) 11.5 - 16.0 g/dL LAB HEMETOLOGY METHOD 10/22/2024 9:09 AM [facility] Hematocrit 28.7(L) 35.0 - 47.0 % LAB HEMETOLOGY METHOD 10/22/2024 9:09 AM [facility] MCV 90.8 79.0 - 98.0 FL LAB HEMETOLOGY METHOD 10/22/2024 9:09 AM [facility] MCH 27.2 27.0 - 32.0 pcg LAB HEMETOLOGY METHOD 10/22/2024 9:09 AM [facility] MCHC 30.0(L) 32.0 - 37.0 g/dL LAB HEMETOLOGY METHOD 10/22/2024 9:09 AM [facility] RDW 13.4 11.0 - 15.0 % LAB HEMETOLOGY METHOD 10/22/2024 9:09 AM [facility] Platelets 383 130 - 400 K/mcL LAB HEMETOLOGY METHOD 10/22/2024 9:09 AM [facility] MPV 10.0 7.0 - 11.0 FL LAB HEMETOLOGY METHOD 10/22/2024 9:09 AM [facility] NRBC 0.0 <1.0 % LAB HEMETOLOGY METHOD 10/22/2024 9:09 AM [facility] NRBC Absolute 0.00 <0.10 K/mcL LAB HEMETOLOGY METHOD 10/22/2024 9:09 AM [facility] Blood Venous blood specimen / Unknown Venipuncture / Unknown 10/22/2024 5:26 AM EDT 10/22/2024 8:36 AM EDT Ally Castañeda MD LAB BLOOD ORDERABLES Final Resul t [facility] [address] [place] [address], documented in this encounter Visit Diagnoses Diagnosis Essential (primary) hypertension Unspecified essential hypertension Anemia, unspecified documented in this encounter Care Teams Medical Researcher Relationship Specialty Start Date End Date Truong Colon MD [address] [place] [address] [address] [place], [place] PCP - General 05/19/22 documented as of this encounter
--- OUTSIDE RECORDS SUMMARY | 2025-01-08 12:59 | XMS_ITS | Clinical Summary ---
Author Organization [facility], Address [address] [place] [address] [place] [address] Phone Care Team Providers Care Shipping Assistant Name Role Phone Truong Colon MD Primary Care Provider +1- [phone] Allergies Active Allergy Reactions Criticality Noted Date [...] Only [facility], [address] [place] [address] Kylie Gabriel Anemia in chronic kidney disease; Stage 3b chronic kidney disease (HCC); Iron deficiency anemia, not otherwise specified 12/02/2024 1:40 PM EDT Office Visit [facility] [address] [place] [address] Romero Jimenez MD Stage 3b chronic kidney disease (HCC) (Primary Dx) 11/28/2024 Orders Only [facility] [address] [place] [address] Kylie Gabriel Anemia in chronic kidney disease; Stage 3b chronic kidney disease (HCC); Iron deficiency anemia, not otherwise specified 10/31/2024 Orders Only [facility] [address] [place] [address] Kylie Gabriel Anemia in chronic kidney disease; [...] Visit [facility], [address] [place] [place] [address] Romero Jimenez MD [address] [place] [id number] Health Maintenance Due Date Last Done Comments [...] Relevant to Health Maintenance Insurance [facility] [employer] ([id number]) Care Teams Shipping Assistant Relationship Specialty Start Date End Date Truong Colon MD [address] [place] [id number] PCP - General Internal Medicine 03/06/23
--- OUTSIDE RECORDS SUMMARY | 2025-01-08 12:59 | XMS_ITS | Encounter Summary ---
Author Organization [place] [address] Care Team Providers Care Credit Reporter Name Role Phone Truong Colon MD Primary Care Provider Encounter Details Date Type Department Care Team (Late Contact Info) Description 11/06/[address] [facility] - Main Lab [address] [facility] [place] [address] Ally Castañeda MD [address] [place] [address] Spinal stenosis, site unspecified; Chronic [...] 11/04/2025 10:30 AM EDT Office Visit [facility] Hematology Oncology [address] [place] [address] Jennifer Ca MD [address] [place] [address] documented as of this encounter Visit Diagnoses Diagnosis Spinal stenosis, site unspecified Chronic kidney disease, unspecified documented in this encounter Care Teams Credit Reporter Relationship Specialty Start Date End Date Truong Colon MD [address] [place] [address] Dr [address] [place], [place] PCP - General 05/19/22 documented as of this encounter
--- OUTSIDE RECORDS SUMMARY | 2025-01-08 12:59 | XMS_ITS | Encounter Summary ---
Author Organization [facility] Address [address] [place] [address] Phone Care Team Providers Care Flat Knitter Helper Name Role Phone Truong Colon MD Primary Care Provider +1- [phone] Encounter Details Date Type Department Care Team (Late Contact Info) Description 07/11/2024 Orders Only [facility] [address] [place] [address] Kylie Gabriel [address] [place] [address] Anemia in chronic kidney disease; [...] [facility] [address] [place] [address] Romero Jimenez MD [address] [facility] [place] [address] documented as of this encounter Visit Diagnoses Diagnosis Anemia in chronic kidney disease Stage 3b chronic kidney disease (HCC) Iron deficiency anemia, not otherwise specified documented in this encounter Care Teams Flat Knitter Helper Relationship Specialty Start Date End Date Truong Colon MD [address] [place] [address] PCP - General Internal Medicine 03/06/23 documented as of this encounter
--- OUTSIDE RECORDS SUMMARY | 2025-01-08 12:59 | XMS_ITS | Encounter Summary ---
Author Organization [facility] Address [address] [place] [address] Phone Care Team Providers Care Lithograph Press Operator Tinware Name Role Phone Truong Colon MD Primary Care Provider +1- [phone] Encounter Details Date Type Department Care Team (Late Contact Info) Description 10/03/2024 Orders Only [facility] [address] [place] [address] Kylie Gabriel [address] [place] [address] Anemia in chronic kidney disease; [...] [facility] [address] [place] [address] Romero Jimenez MD [address] [facility] [address] [place] [address] documented as of this encounter Visit Diagnoses Diagnosis Anemia in chronic kidney disease Stage 3b chronic kidney disease (HCC) Iron deficiency anemia, not otherwise specified documented in this encounter Care Teams Lithograph Press Operator Tinware Relationship Specialty Start Date End Date Truong Colon MD [address] [place] [address] PCP - General Internal Medicine 03/06/23 documented as of this encounter
--- OUTSIDE RECORDS SUMMARY | 2025-01-08 12:59 | XMS_ITS | Encounter Summary ---
Author Organization [facility] Address [address] [place] [address] Phone Care Team Providers Care Registered Radiation Therapist Name Role Phone Truong Colon MD Primary Care Provider +1- [phone] Encounter Details Date Type Department Care Team (Late Contact Info) Description 01/31/2024 Documentation Only [facility] [address] [place] [address] Kylie Gabriel [address] [place] [address] Social History Tobacco Use Types [...] [facility] [address] [place] [address] Romero Jimenez MD [address] [place] [address] [place] [address] documented as of this encounter Visit Diagnoses Not on filedocumented in this encounter Care Teams Registered Radiation Therapist Relationship Specialty Start Date End Date Truong Colon MD [address] [place] [address] PCP - General Internal Medicine 03/06/23 documented as of this encounter
--- OUTSIDE RECORDS SUMMARY | 2025-01-08 12:59 | XMS_ITS | Encounter Summary ---
Author Organization [facility] Address [address] [place] [address] Phone Care Team Providers Care Meat Manager Name Role Phone Truong Colon MD Primary Care Provider +1- [phone] Encounter Details Date Type Department Care Team (Late Contact Info) Description 06/03/2024 Documentation Only [facility] [address] [place] [address] Kylie Gabriel [address] [place] [address] Social History Tobacco Use Types [...] [facility] [address] [place] [address] Romero Jimenez MD [address] [place] [address] [place] [address] documented as of this encounter Visit Diagnoses Not on filedocumented in this encounter Care Teams Meat Manager Relationship Specialty Start Date End Date Truong Colon MD [address] [place] [address] PCP - General Internal Medicine 03/06/23 documented as of this encounter
--- OUTSIDE RECORDS SUMMARY | 2025-01-08 12:59 | XMS_ITS | Encounter Summary ---
Author Organization [facility] Address [address] [place] [address] Phone Care Team Providers Care Architectural Representative Name Role Phone Truong Colon MD Primary Care Provider +1- [phone] Encounter Details Date Type Department Care Team (Late Contact Info) Description 06/13/2024 Orders Only [facility] [address] [place] [address] Kylie Gabriel [address] [place] [address] Anemia in chronic kidney disease; [...] Visit [facility] [address] [place] [address] Romero Jimenez MD [address] [place] [address] documented as of this encounter Visit Diagnoses Diagnosis Anemia in chronic kidney disease Stage 3b chronic kidney disease (HCC) Iron deficiency anemia, not otherwise specified documented in this encounter Care Teams Architectural Representative Relationship Specialty Start Date End Date Truong Colon MD [address] [place] [address] PCP - General Internal Medicine 03/06/23 documented as of this encounter
--- OUTSIDE RECORDS SUMMARY | 2025-01-08 12:59 | XMS_ITS | Encounter Summary ---
Author Organization [facility] Address [address] [place] [address] Phone Care Team Providers Care Day Trader Name Role Phone Truong Colon MD Primary Care Provider +1- [phone] Encounter Details Date Type Department Care Team (Late Contact Info) Description 10/26/2023 Documentation Only [facility] [address] [place] [address] Kylie Gabriel [address] [place] [address] Social History Tobacco Use Types [...] [facility] [address] [place] [address] Romero Jimenez MD [address] [place] [address] [place] [address] documented as of this encounter Visit Diagnoses Not on filedocumented in this encounter Care Teams Day Trader Relationship Specialty Start Date End Date Truong Colon MD [address] [place] [address] PCP - General Internal Medicine 03/06/23 documented as of this encounter
--- OUTSIDE RECORDS SUMMARY | 2025-01-08 12:59 | XMS_ITS | Patient Health Record ---
Author Organization [facility] camilla [place] Address [address] [facility] [place] [facility] [place] [address] Care Team Providers Care Cushion Worker Name Role Phone Isaiah DURAN, [place] Primary Care Provider Boby Laguerre Unavailable [phone] Allergies Allergen (clinical drug ingredient) Drug/Non Drug [...] Problem Acquired hammer toe of right foot (6351315663330633 ) Other hammer toe(s) (acquired), right foot (M20.41) Active confirmed Response to treatment, Improvemen t Problem Acquired hammer toe of left foot ([id number] ) Other hammer toe(s) (acquired), left foot (M20.42) Active confirmed Response to treatment, Improvemen t Problem Bilateral atherosclerosis of arteries of lower limbs (disorder) ([id number]) Atherosclerosis of assinibo[place] sioux artery of both lower extremities, with unspecified presence of clinical manifestation (I70.203) Active confirmed Vital Signs Blood pressure diastolic 64 mm Hg 12/15/2024 Height 5 ft 9in in 12/15/2024 Blood pressure systolic 127 mm Hg 12/15/2024 Weight 230 lbs 12/15/2024 BMI 33.96 kg/m2 12/15/2024 Procedures Procedure Date Ordered Date Performed Result Body Sit e 42685-BQBHYUS NAIL, 6 OR MORE 01/24/2024 N/A 24508-Peif Destruction, 1-14 01/24/2024 N/A 97650-NKMC SKIN LESIONS, OVER 4 01/24/2024 N/A 92198-ZPKWWRN NAIL, 6 OR MORE 05/05/2024 N/A 65801-JXMI SKIN LESIONS, OVER 4 05/05/2024 N/A 85915-UCLXQUB NAIL, 6 OR MORE 07/31/2024 N/A 24730-JMLK SKIN LESIONS, OVER 4 07/31/2024 N/A 61386-OLLUAJV NAIL, 6 OR MORE 12/15/2024 N/A 77820-AIJT SKIN LESIONS, OVER 4 12/15/2024 N/A Encounters Encounter Location Date Provider Diagnosis [address] [address] 01/24/2024 Boby Chapman Atherosclerosis of assiniboine and sioux artery of both lower extremities, with unspecified presence of clinical manifestation I70.203 ; Plantar wart B07.0 ; Tinea unguium B35.1 ; Pain in right toe(s) M79.674 ; Pain in left toe(s) M79.675 ; Left foot pain M79.672 and Xerosis of skin L85.[address] [address] 05/05/2024 Boby Chapman Atherosclerosis of assinibo[place] sioux artery of both lower extremities, with unspecified presence of clinical manifestation I70.203 ; Tinea unguium B35.1 ; Pain in right toe(s) M79.674 ; Pain in left toe(s) M79.675 ; Other hammer toe(s) (acquired), right foot M20.41 and Other hammer toe(s) (acquired), left foot M20.[address] [address] 07/31/2024 Boby Chapman Atherosclerosis of ass[place]ine and sioux artery of both lower extremities, with unspecified presence of clinical manifestation I70.203 ; Tinea unguium B35.1 ; Pain in right toe(s) M79.674 ; Pain in left toe(s) M79.675 ; Other hammer toe(s) (acquired), right foot M20.41 and Other hammer toe(s) (acquired), left foot M20.[address] [place] [address] 12/15/2024 Boby Chapman Atherosclerosis of assiniboine and sioux artery of both lower extremities, with unspecified presence of clinical manifestation I70.203 ; Tinea unguium B35.1 ; Pain in right toe(s) M79.674 and Pain in left toe(s) M79.675 [facility] [address] [place] [address] 10/30/2024 Boby Chapman Assessments Encounter Date Diagnosis (ICD Code) Assessment Notes Treatment Notes Treatment Clinical Notes Section Notes 01/24/2024 Plantar wart (ICD-10 - B07.0) 01/24/2024 Atherosclerosis of ass[place] sioux artery of both lower extremities, with unspecified presence of clinical manifestation (ICD-10 - I70.203) 05/05/2024 Tinea unguium (ICD-10 - B35.1) 05/05/2024 Atherosclerosis of assinibo[place] sioux artery of both lower extremities, with unspecified presence of clinical manifestation (ICD-10 - I70.203) 07/31/2024 Tinea unguium (ICD-10 - B35.1) 07/31/2024 Atherosclerosis of assinibo[place] and sioux artery of both lower extremities, with unspecified presence of clinical manifestation (ICD-10 - I70.203) 12/15/2024 Tinea unguium (ICD-10 - B35.1) 12/15/2024 Atherosclerosis of assiniboine [place] sioux artery of both lower extremities, with unspecified [...] Treatment Pending Test Test Name Order Date 20843-NUJUUQU NAIL, 6 OR MORE 03/21/2017 50269-CXVYKZG NAIL, 6 OR MORE 05/30/2017 55139-TWLOXCH NAIL, 6 OR MORE 08/06/2017 78318-FKQVUFC NAIL, 6 OR MORE 10/25/2017 29446-DTJOEFQ NAIL, 6 OR MORE 03/20/2018 49458-YFIAKWO NAIL, 6 OR MORE 06/13/2018 27229-VMPUQLR NAIL, 6 OR MORE 01/07/2018 27725-RLITZQH NAIL, 6 OR MORE 08/14/2018 59888-WQMCYSM NAIL, 6 OR MORE 10/17/2018 43104-KMYABOJ NAIL, 6 OR MORE 01/16/2019 31910-BLKCPSB NAIL, 6 OR MORE 04/03/2019 09600-GWSFPGV NAIL, 6 OR MORE 06/16/2019 52638-MMAMYUP NAIL, 6 OR MORE 08/27/2019 86556-DAMPGLT NAIL, 6 OR MORE 12/18/2019 01484-CCJLTJP NAIL, 6 OR MORE 05/06/2020 27654-PSIJYCF NAIL, 6 OR MORE 07/15/2020 88003-OEODBQB NAIL, 6 OR MORE 09/29/2020 79680-FRGNAIW NAIL, 6 OR MORE 12/02/2020 76987-TBVQHYV NAIL, 6 OR MORE 02/17/2021 46106-CFNCPDR NAIL, 6 OR MORE 06/16/2021 99840-QJOJUQL NAIL, 6 OR MORE 08/29/2021 19444-KDRYOBO NAIL, 6 OR MORE 11/10/2021 28127-FWUJNKR NAIL, 6 OR MORE 01/19/2022 44901-NKGONUI NAIL, 6 OR MORE 04/05/2022 91189-NGSUUHU NAIL, 6 OR MORE 06/15/2022 69764-EVCVOQN NAIL, 6 OR MORE 08/24/2022 49774-JRIBMEP NAIL, 6 OR MORE 11/16/2022 62490-NIKOKNW NAIL, 6 OR MORE 01/25/2023 59119-WFIVPSI NAIL, 6 OR MORE 04/11/2023 35392-BALFBRN NAIL, 6 OR MORE 06/27/2023 78545-ZTPUMIS NAIL, 6 OR MORE 08/30/2023 86300-VISPAIV NAIL, 6 OR MORE 11/08/2023 60190-LVVPDLI NAIL, 6 OR MORE 01/24/2024 83426-YLVDBHA NAIL, 6 OR MORE 05/05/2024 24926-WKNFUJL NAIL, 6 OR MORE 07/31/2024 98362-RFVWAIN NAIL, 6 OR MORE 12/15/2024 70582-IXQLTEN NAIL, 1-5 11/01/2016 58184-DNPIVCQ NAIL, -5 01/03/2017 70268-CPJFRSC NAIL, 1-5 11/15/2015 30401-FTJSQJN NAIL, 1-5 01/24/2016 99103-RVDMYOR NAIL, 1-5 04/05/2016 89976-SJRWBPS NAIL, -5 06/14/2016 81367-PSUCGST NAIL, -5 08/23/2016 39479-Avua Destruction, -14 11/01/2016 18418-Olum Destruction, -14 01/03/2017 10532-Uymo Destruction, -14 03/21/2017 19754-Asld Destruction, -14 05/30/2017 20987-Mfhb Destruction, -14 08/06/2017 45680-Pnra Destruction, -14 05/06/2020 70985-Ilay Destruction, -14 12/18/2019 95898-Mkzn Destruction, 05-0608/27/2019 58409-Cgpf Destruction, 05-0606/16/2019 23451-Exuj Destruction, 05-0604/03/2019 98375-Gepz Destruction, 05-0601/16/2019 03809-Nikh Destruction, 05-0610/17/2018 95851-Ozva Destruction, 05-0608/14/2018 55900-Ufib Destruction, 05-0606/13/2018 20766-Pgfp Destruction, 05-0610/25/2017 34573-Wrdb Destruction, 05-0601/07/2018 75931-Gykb Destruction, 05-0608/30/2023 84828-Ckwo Destruction, 05-0606/27/2023 91670-Qefl Destruction, 05-0604/11/2023 18635-Khuz Destruction, 05-0601/25/2023 68525-Totq Destruction, 05-0611/16/2022 49461-Nnun Destruction, 05-0608/24/2022 89018-Irer Destruction, 05-0606/15/2022 71510-Scfb Destruction, 05-0604/05/2022 41928-Fpda Destruction, 05-0601/19/2022 50367-Uttr Destruction, 05-0606/16/2021 13509-Riow Destruction, 05-0603/20/2018 47432-Aiff Destruction, 05-0611/10/2021 29579-Muhe Destruction, 05-0608/29/2021 06641-Elpt Destruction, 05-0602/17/2021 21372-Iimw Destruction, 05-0612/02/2020 38207-Mhip Destruction, 05-0609/29/2020 34589-Okok Destruction, 05-0607/15/2020 78857-Skwa Destruction, 05-0601/24/2024 49105-Iyyu Destruction, 05-0611/08/2023 38979-Dibtzwkx Plate 11/08/2023 92007-Rkbfsejn Plate 09/29/2020 66247-Qynwcpsw Plate 12/02/2020 54604-Hmosuxje Plate 02/17/2021 69446-Dvtqetyv Plate 06/16/2021 70436-Wdtxekom Plate 08/29/2021 15780-Fqxvphcr Plate 11/10/2021 33074-Xcrgaqbd Plate 01/19/2022 19898-Yqqukkay Plate 04/05/2022 56917-Gkkbcqbg Plate 06/15/2022 37182-Jkvtudbj Plate 08/24/2022 81201-Wytxwjmd Plate 11/16/2022 27310-Vrvdzlri Plate 01/25/2023 96014-Lnsicfnk Plate 04/11/2023 60083-Ufwyzisz Plate 06/27/2023 70944-Hxypdzzo Plate 08/30/2023 99760-Fviflifv Plate 12/18/2019 17668-Bovypwfp Plate 05/06/2020 64940-Txwprnem Plate 07/15/2020 26401-Uksnqeaa Plate 11/01/2016 47232-Aekncgut Plate Each Additional 12/2023 13098-Zqeycbgx Plate Each Additional 09/2023 95447-Creltzbg Plate Each Additional 87711-Fjavhjre Plate Each Additional 08/2022 66906-Xdlzkncz Plate Each Additional 92677-Tnvuhhwh Plate Each Additional 07/2022 82734-Doytrkdk Plate Each Additional 93823-Aalhotfq Plate Each Additional 76713-Bgcfroqn Plate Each Additional 69440-Emdbiyxg Plate Each Additional 67633-HAFE SKIN LESIONS, OVER 4 11/08/19 24 70691-APGX SKIN LESIONS, OVER 4 01/24/20 58186-SIBZ SKIN LESIONS, OVER 4 05/05/19 08637-WEMY SKIN LESIONS, OVER 4 12/16/19 66327-DFYJ SKIN LESIONS, OVER 4 08/01/19 43271-BYRP SKIN LESIONS, OVER 4 06/16/19 11841-WFNI SKIN LESIONS, OVER 4 01/20/20 29490-BABH SKIN LESIONS, OVER 4 11/11/19 29775-CYNX SKIN LESIONS, OVER 4 08/30/19 60149-LHIG SKIN LESIONS, OVER 4 02/18/20 91899-RZUZ SKIN LESIONS, OVER 4 12/03/19 57533-TQRQ SKIN LESIONS, OVER 4 09/30/19 49793-ELMT SKIN LESIONS, OVER 4 03/25/20 21 30677-BRQP SKIN LESIONS, OVER 4 04/05/20 22 91766-ITHY SKIN LESIONS, OVER 4 06/15/19 23 72100-DVSK SKIN LESIONS, OVER 4 08/25/19 23 37782-ODIO SKIN LESIONS, OVER 4 11/17/19 23 65476-QQGT SKIN LESIONS, OVER 4 01/26/20 23 52138-PVFW SKIN LESIONS, OVER 4 04/11/20 23 04330-ERIQ SKIN LESIONS, OVER 4 06/27/19 24 47813-GFBL SKIN LESIONS, OVER 4 08/30/19 24 43448-CVWK SKIN LESIONS, OVER 4 03/21/20 17 75560-UGBD SKIN LESIONS, OVER 4 01/04/20 32835-NOEN SKIN LESIONS, OVER 4 10/26/19 18 00868-CTIH SKIN LESIONS, OVER 4 08/07/19 18 30698-RGNT SKIN LESIONS, OVER 4 05/30/19 18 31610-RAZH SKIN LESIONS, OVER 4 11/02/19 17 55327-BFDF SKIN LESIONS, OVER 4 06/14/19 17 81539-OVKS SKIN LESIONS, OVER 4 04/05/20 16 96411-RDPZ SKIN LESIONS, OVER 4 08/24/19 17 13378-VRFR SKIN LESIONS, OVER 4 01/24/20 16 17983-YNJV SKIN LESIONS, OVER 4 11/15/19 16 89553-BNPG SKIN LESIONS, OVER 4 08/16/19 16 24210-RIQK SKIN LESIONS, OVER 4 05/06/19 21 46356-VNUS SKIN LESIONS, OVER 4 12/18/19 20 94024-POJV SKIN LESIONS, OVER 4 08/27/19 20 59211-PJTI SKIN LESIONS, OVER 4 04/03/20 19 17252-JSGI SKIN LESIONS, OVER 4 06/16/19 20 16344-JCGK SKIN LESIONS, OVER 4 01/08/20 18 39059-KMNL SKIN LESIONS, OVER 4 06/13/19 19 24108-UPSJ SKIN LESIONS, OVER 4 08/15/19 19 08113-QQPA SKIN LESIONS, OVER 4 03/20/20 18 51425-UPIV SKIN LESIONS, OVER 4 10/18/19 19 67971-IJMY SKIN LESIONS, OVER 4 01/17/20 19 Y8410-VHWSYQIT DYSTROPHIC NAILS ANY # S2529-GDISSRZN DYSTROPHIC NAILS ANY # N4090-WQWIWLMA DYSTROPHIC NAILS ANY # C1383-ELXWRNVK DYSTROPHIC NAILS ANY # G9903-AIBNSDCD DYSTROPHIC NAILS ANY # S8581-QWRYEOOW DYSTROPHIC NAILS ANY # U0548-EHMYJMRZ DYSTROPHIC NAILS ANY # D7035-AEHINGHX DYSTROPHIC NAILS ANY # Next Appt Details Provider Name:Boby Snow Adela , 03/30/2025 01:30:00 PM, [address] [place] [address], [facility] [address], [place], [address], Insurance Providers Payer Name Payer Address Payer Phone Subscriber Number Group Number Insured Name Patient Relationship to Insured Coverage Start Date Coverage End Date [facility] [employer] Claims [address] [place] [id number] Jacinda Benavidez Self - patient is the insured Medical (General) History Medical History History ICD Code Anemia Anxiety Arthritis Back,Hip,and Knee pain Cataracts High blood pressure Liver disease Reflux Thyroid disorder Surgical History Surgery Date(Month/Year) gall bladder 12/11/2014 Unspecified Right Hand SX 03/13/17 Hospitalization History Reason Date(Month/Year) [facility]- back pain 10/03/24
--- OUTSIDE RECORDS SUMMARY | 2025-01-08 12:59 | XMS_ITS | Encounter Summary ---
Author Organization [facility] Address [address] [place] [address] Phone Care Team Providers Care Hydroelectric Systems Technician Name Role Phone Truong Colon MD Primary Care Provider +1- [phone] Encounter Details Date Type Department Care Team (Late Contact Info) Description 05/04/2022 Documentation Only [facility] [address] [place] [address] Kylie Gabriel [address] [place] [address] Social History Tobacco Use Types [...] [facility] [address] [place] [address] Romero Jimenez MD [address] [place] [address] [place] [address] documented as of this encounter Visit Diagnoses Not on filedocumented in this encounter Care Teams Hydroelectric Systems Technician Relationship Specialty Start Date End Date Truong Colon MD [address] [place] [address] PCP - General Internal Medicine 03/06/23 documented as of this encounter
--- OUTSIDE RECORDS SUMMARY | 2025-01-08 12:59 | XMS_ITS | Encounter Summary ---
Author Organization [facility] Address [address] [place] [address] Phone Care Team Providers Care Photo Editor Name Role Phone Truong Colon MD Primary Care Provider +1- [phone] Encounter Details Date Type Department Care Team (Late Contact Info) Description 04/11/2022 Documentation Only [facility] [address] [place] [address] Kylie Gabriel [address] [place] [address] Social History Tobacco Use Types [...] [facility] [address] [place] [address] Romero Jimenez MD [address] [place] [address] [place] [address] documented as of this encounter Visit Diagnoses Not on filedocumented in this encounter Care Teams Photo Editor Relationship Specialty Start Date End Date Truong Colon MD [address] [place] [address] PCP - General Internal Medicine 03/06/23 documented as of this encounter
--- OUTSIDE RECORDS SUMMARY | 2025-01-08 12:59 | XMS_ITS | Encounter Summary ---
Author Organization [facility] Address [address] [place] [address] Phone Care Team Providers Care Foundation Digger Name Role Phone Truong Colon MD Primary Care Provider +1- [phone] Encounter Details Date Type Department Care Team (Late Contact Info) Description 07/31/2024 Documentation Only [facility] [address] [place] [address] Kylie Gabriel [address] [place] [address] Social History Tobacco Use Types [...] [facility] [address] [place] [address] Romero Jimenez MD [address] [place] [address] [place] [address] documented as of this encounter Visit Diagnoses Not on filedocumented in this encounter Care Teams Foundation Digger Relationship Specialty Start Date End Date Truong Colon MD [address] [place] [address] PCP - General Internal Medicine 03/06/23 documented as of this encounter
--- OUTSIDE RECORDS SUMMARY | 2025-01-08 12:59 | XMS_ITS | Encounter Summary ---
Author Organization [facility] [address] Care Team Providers Care Financial Reporting Advisor Name Role Phone Truong Colon MD Primary Care Provider Encounter Details Date Type Department Care Team (Late Contact Info) Description 10/22/2024 Lab Requisition [facility] - Main Lab [address] [facility] [place] [address] Ally Castañeda MD [address] [place] [address] Spinal stenosis, site unspecified; Chronic [...] Description 11/04/2025 10:30 AM EDT Office Visit [facility] Hematology Oncology [address] [place] [address] Jennifer Ca MD [address] [place] [address] [phone] (work) documented as of this encounter Procedures [...] mmol/L LAB CHEMISTRY METHOD 10/23/2024 11:28 AM [facility] Potassium 4.6 3.5 - 5.5 mmol/L LAB CHEMISTRY METHOD 10/23/2024 11:28 AM [facility] Chloride 107 96 - 110 mmol/L LAB CHEMISTRY METHOD 10/23/2024 11:28 AM [facility] CO2 29 21 - 32 mmol/L LAB CHEMISTRY METHOD 10/23/2024 11:28 AM [facility] Anion Gap 4 3 - 11 LAB CHEMISTRY METHOD 10/23/2024 11:28 AM [facility] Glucose 65(L) 70 - 100 mg/dL LAB CHEMISTRY METHOD 10/23/2024 11:28 AM [facility] BUN 17 5 - 25 mg/dL LAB CHEMISTRY METHOD 10/23/2024 11:28 AM [facility] Creatinine 0.87 0.50 - 1.10 mg/dL LAB CHEMISTRY METHOD 10/23/2024 11:28 AM [facility] eGFR 67 >=60 mL/min/1. 73m2 LAB CHEMISTRY METHOD 10/23/2024 11:28 AM [facility] Comment:Calculation based on the Chronic Kidney Disease Epidemiology Collaboration (CKD-EPI) equation refit without adjustment for race. BUN/Creatinine Ratio 19.5 LAB CHEMISTRY METHOD 10/23/2024 11:28 AM EDT [facility] Calcium 8.7 8.5 - 10.5 mg/dL LAB CHEMISTRY METHOD 10/23/2024 11:28 AM [facility] Blood Venous blood specimen / Unknown Venipuncture / Unknown 10/23/2024 5:09 AM EDT 10/23/2024 10:13 AM EDT us Ally Castañeda MD LAB BLOOD ORDERABLES Final Resul t [facility] [address] [place] [address], * (ABNORMAL) Complete blood count (10/23/2024 5:09 AM EDT) WBC 4.8 4.8 - 10.8 K/mcL LAB HEMETOLOGY METHOD 10/23/2024 10:31 AM [facility] RBC 3.10(L) 3.80 - 4.80 M/mcL LAB HEMETOLOGY METHOD 10/23/2024 10:31 AM [facility] Hemoglobin 8.3(L) 11.5 - 16.0 g/dL LAB HEMETOLOGY METHOD 10/23/2024 10:31 AM [facility] Hematocrit 27.9(L) 35.0 - 47.0 % LAB HEMETOLOGY METHOD 10/23/2024 10:31 AM [facility] MCV 90.3 79.0 - 98.0 FL LAB HEMETOLOGY METHOD 10/23/2024 10:31 AM [facility] MCH 26.9(L) 27.0 - 32.0 pcg LAB HEMETOLOGY METHOD 10/23/2024 10:31 AM [facility] MCHC 29.7(L) 32.0 - 37.0 g/dL LAB HEMETOLOGY METHOD 10/23/2024 10:31 AM EDT [facility] RDW 13.7 11.0 - 15.0 % LAB HEMETOLOGY METHOD 10/23/2024 10:31 AM EDT [facility] Platelets 342 130 - 400 K/mcL LAB HEMETOLOGY METHOD 10/23/2024 10:31 AM EDT [facility] MPV 10.0 7.0 - 11.0 FL LAB HEMETOLOGY METHOD 10/23/2024 10:31 AM EDT [facility] NRBC 0.0 <1.0 % LAB HEMETOLOGY METHOD 10/23/2024 10:31 AM EDT [facility] NRBC Absolute 0.00 <0.10 K/mcL LAB HEMETOLOGY METHOD 10/23/2024 10:31 AM EDT [facility] Blood Venous blood specimen / Unknown Venipuncture / Unknown 10/23/2024 5:09 AM EDT 10/23/2024 10:13 AM EDT us Ally Castañeda MD LAB BLOOD ORDERABLES Final Resul t [facility] [address] [place] [address], documented in this encounter Visit Diagnoses Diagnosis Spinal stenosis, site unspecified Chronic kidney disease, unspecified documented in this encounter Care Teams Financial Reporting Advisor Relationship Specialty Start Date End Date Truong Colon MD [address] [place] [address] [address] JAEL Christian PCP - General 05/19/22 documented as of this encounter
--- OUTSIDE RECORDS SUMMARY | 2025-01-08 12:59 | XMS_ITS | Encounter Summary ---
Author Organization [facility] Address [address] [place] [address] Phone Care Team Providers Care Mortgage Clerk Name Role Phone Truong Colon MD Primary Care Provider +1- [phone] Encounter Details Date Type Department Care Team (Late Contact Info) Description 01/14/2024 Documentation Only [facility] [address] [place] [address] [place] [address] [place] [address] Social History Tobacco Use Types Packs/Day [...] [facility] [address] [place] [address] Romero Jimenez MD [address] [facility] [place] [address] documented as of this encounter Visit Diagnoses Not on filedocumented in this encounter Care Teams Mortgage Clerk Relationship Specialty Start Date End Date Truong Colon MD [address] [place] [address] PCP - General Internal Medicine 03/06/23 documented as of this encounter
--- OUTSIDE RECORDS SUMMARY | 2025-01-08 12:59 | XMS_ITS | Encounter Summary ---
Author Organization [facility] Address [address] [place] [address] Phone Care Team Providers Care Aluminum Siding Installer Name Role Phone Truong Colon MD Primary Care Provider +1- [phone] Encounter Details Date Type Department Care Team (Late Contact Info) Description 10/31/2024 Orders Only [facility] [address] [place] [address] Kylie Gabriel [address] [place] [address] Anemia in chronic kidney disease; [...] Visit [facility] [address] [place] [address] Romero Jimenez MD [address] [facility] [place] [address] documented as of this encounter Visit Diagnoses Diagnosis Anemia in chronic kidney disease Stage 3b chronic kidney disease (HCC) Iron deficiency anemia, not otherwise specified documented in this encounter Care Teams Aluminum Siding Installer Relationship Specialty Start Date End Date Truong Colon MD [address] [place] [address] PCP - General Internal Medicine 03/06/23 documented as of this encounter
--- OUTSIDE RECORDS SUMMARY | 2025-01-08 12:59 | XMS_ITS | Encounter Summary ---
Author Organization [facility] [place] Address [address] [place] [address] Phone Care Team Providers Care Bridge Design Engineer Name Role Phone Truong Colon MD Primary Care Provider +1- [phone] Encounter Details Date Type Department Care Team (Late Contact Info) Description 01/23/2024 Documentation Only [facility], - [place] [address] [place] [address] Jasmin Dumont [address] [place] [address] Social History Tobacco Use Types Packs/Day [...] Visit [facility] [place], [address] [place] [address] Romero Jimenez MD [address] [facility] [place] [address] documented as of this encounter Visit Diagnoses Not on filedocumented in this encounter Care Teams Bridge Design Engineer Relationship Specialty Start Date End Date Truong Colon MD [address] [place] [address] PCP - General Internal Medicine 03/06/23 documented as of this encounter
--- OUTSIDE RECORDS SUMMARY | 2025-01-08 12:59 | XMS_ITS | Encounter Summary ---
Author Organization [facility] Address [address] [place] [address] Phone Care Team Providers Care Appliance Service Technician Name Role Phone Truong Colon MD Primary Care Provider +1- [phone] Encounter Details Date Type Department Care Team (Late Contact Info) Description 07/02/2024 Documentation Only [facility] [address] [place] [address] [place] [address] [place] [address] Social History Tobacco Use Types Packs/Day [...] [facility] [address] [place] [address] Romero Jimenez MD [address] [place] [address] [place] [address] documented as of this encounter Visit Diagnoses Not on filedocumented in this encounter Care Teams Appliance Service Technician Relationship Specialty Start Date End Date Truong Colon MD [address] [place] [address] PCP - General Internal Medicine 03/06/23 documented as of this encounter
--- OUTSIDE RECORDS SUMMARY | 2025-01-08 12:59 | XMS_ITS | Encounter Summary ---
Author Organization [facility] [place] [address] Care Team Providers Care Rehabilitation Team Lead Name Role Phone Truong Colon MD Primary Care Provider [phone] [phone] Encounter Details Date Type Department Care Team (Late st Contact Info) Description 10/10/2024 Lab Requisition [facility] - Main Lab [address] [facility] [place] [phone] Ally Castañeda MD [address] [place] [address] Malignant neoplasm of unspecified site of unspecified female breast ([facility]/HCC V24, [facility] V28); Hypothyroidism, unspecified; Vitamin D deficiency, unspecified; [...] Description 11/04/2025 10:30 AM EDT Office Visit [facility] Hematology Oncology [address] [place] [phone] Jennifer Ca MD [address] [place] [phone] documented as of this encounter Procedures Procedure Name Priority Date/Time Associated Diagnosis Comments THYROID STIMULATING HORMONE WITH REFLEX TO FREE T4 AND FREE T3 Routine 10/10/2024 5:37 AM EDT Malignant neoplasm of unspecified site of unspecified female breast ([facility]/HCC V24, [facility]/HCC V28) Hypothyroidism, unspecified Vitamin D deficiency, unspecified Vitamin B12 deficiency anemia, unspecified Spinal stenosis, site unspecified Chronic kidney disease, stage [address] unspecified ([facility]/HCC V24, [facility]/HCC V28) VITAMIN D 25 HYDROXY Routine 10/10/2024 5:37 AM EDT Malignant neoplasm of unspecified site of unspecified female breast ([facility]/HCC V24, [facility]/HCC V28) Hypothyroidism, unspecified Vitamin [...] site of unspecified female breast (CMS/HCC V24, [facility]/HCC V28) Hypothyroidism, unspecified Vitamin D deficiency, unspecified Vitamin B12 deficiency anemia, unspecified Spinal stenosis, site unspecified Chronic kidney disease, stage 3 unspecified (CMS/HCC V24, CMS/HCC V28) VITAMIN B12 Routine 10/10/2024 5:37 AM EDT Malignant neoplasm of unspecified site of unspecified female breast ([facility] V24, [facility] V28) Hypothyroidism, unspecified Vitamin D deficiency, unspecified Vitamin B12 deficiency anemia, unspecified Spinal stenosis, site unspecified Chronic kidney disease, stage 3 unspecified ([facility] V24, [facility] V28) COMPREHENSIVE METABOLIC PANEL Routine 10/10/2024 5:37 AM EDT Malignant neoplasm of unspecified site of unspecified female breast ([facility] V24, [facility] V28) Hypothyroidism, unspecified Vitamin D deficiency, unspecified Vitamin B12 deficiency anemia, unspecified Spinal stenosis, site unspecified Chronic kidney disease, stage 3 unspecified ([facility] V24, [facility] V28) documented in this encounter Results * Vitamin D 25 hydroxy (10/10/2024 5:37 AM EDT) Vit D, 25-Hydroxy 52.0 30.0 - 80.0 ng/mL LAB CHEMISTRY METHOD 10/10/2024 1:00 PM EDT [facility] Blood Venous blood specimen / Unknown Venipuncture / Unknown 10/10/2024 5:37 AM EDT 10/10/2024 9:30 AM EDT us Ally Castañeda MD LAB BLOOD ORDERABLES Final Resul t [facility] [address] [place] [address], [place] [phone] * Folate (10/10/2024 5:37 AM EDT) Folate 12.9 2.8 - 17.0 ng/ml LAB CHEMISTRY METHOD 10/10/2024 11:35 AM EDT [facility] Blood Venous blood specimen / Unknown Venipuncture / Unknown 10/10/2024 5:37 AM EDT 10/10/2024 9:30 AM EDT us Ally Castañeda MD LAB BLOOD ORDERABLES Final Resul t Performing Organization Address [facility]/ZIP Co de Phone Number [facility] [address] [place] [address], [place] [phone] * Vitamin B12 (10/10/2024 5:37 AM EDT) Vitamin B-12 371 250 - 900 pcg/mL LAB CHEMISTRY METHOD 10/10/2024 11:35 AM EDT [facility] Blood Venous blood specimen / Unknown Venipuncture / Unknown 10/10/2024 5:37 AM EDT 10/10/2024 9:30 AM EDT us Ally Castañeda MD LAB BLOOD ORDERABLES Final Resul t Performing Organization Address [facility] de Phone Number [facility] [address] [place] [address], * Thyroid stimulating hormone with reflex to free t4 and free t3 (10/10/2024 5:37 AM EDT) Pathologist [facility] TSH 2.96 0.40 - 4.00 mcIU/mL LAB CHEMISTRY METHOD 10/10/2024 1:01 PM EDT [facility] Blood Venous blood specimen / Unknown Venipuncture / Unknown 10/10/2024 5:37 AM EDT 10/10/2024 9:30 AM EDT us Ally Castañeda MD LAB BLOOD ORDERABLES Final Resul t Performing Organization Address [facility]/ZIP Co de Phone Number [facility] [address] [place] [address], [place] [phone] * (ABNORMAL) Comprehensive metabolic panel (10/10/2024 5:37 AM EDT) Sodium 130(L) 133 - 145 mmol/L LAB CHEMISTRY METHOD 10/10/2024 11:35 AM EDT [facility] Potassium 4.9 3.5 - 5.5 mmol/L LAB CHEMISTRY METHOD 10/10/2024 11:35 AM [facility] Chloride 97 96 - 110 mmol/L LAB CHEMISTRY METHOD 10/10/2024 11:35 AM [facility] CO2 28 21 - 32 mmol/L LAB CHEMISTRY METHOD 10/10/2024 11:35 AM [facility] Anion Gap 5 [...] LAB CHEMISTRY METHOD 10/10/2024 11:35 AM EDT [facility] Albumin 2.3(L) 3.2 - 5.0 g/dL LAB CHEMISTRY METHOD 10/10/2024 11:35 AM EDT [facility] Total Bilirubin 0.4 0.0 - 1.4 mg/dL LAB CHEMISTRY METHOD 10/10/2024 11:35 AM EDT [facility] Blood Venous blood specimen / Unknown Venipuncture / Unknown 10/10/2024 5:37 AM EDT 10/10/2024 9:30 AM EDT Ally Castañeda MD LAB BLOOD ORDERABLES Final Resul t [facility] [address] [place] [address], [place] [phone] * (ABNORMAL) Complete blood count (10/10/2024 5:37 AM EDT) WBC 9.2 4.8 - 10.8 K/mcL LAB HEMETOLOGY METHOD 10/10/2024 10:58 AM EDT [facility] RBC 3.10(L) 3.80 - 4.80 M/mcL LAB HEMETOLOGY METHOD 10/10/2024 10:58 AM EDT [facility] Hemoglobin 8.8(L) 11.5 - 16.0 g/dL LAB HEMETOLOGY METHOD 10/10/2024 10:58 AM EDT [facility] Hematocrit 28.0(L) 35.0 - 47.0 % LAB HEMETOLOGY METHOD 10/10/2024 10:58 AM EDT [facility] MCV 89.7 79.0 - 98.0 FL LAB HEMETOLOGY METHOD 10/10/2024 10:58 AM EDT [facility] MCH 28.2 27.0 - 32.0 pcg LAB HEMETOLOGY METHOD 10/10/2024 10:58 AM EDT [facility] MCHC 31.4(L) 32.0 - 37.0 g/dL LAB HEMETOLOGY METHOD 10/10/2024 10:58 AM EDT [facility] RDW 13.2 11.0 - 15.0 % LAB HEMETOLOGY METHOD 10/10/2024 10:58 AM EDT [facility] Platelets 261 130 - 400 K/mcL LAB HEMETOLOGY METHOD 10/10/2024 10:58 AM EDT [facility] MPV 11.0 7.0 - 11.0 FL LAB HEMETOLOGY METHOD 10/10/2024 10:58 AM EDT [facility] NRBC 0.0 <1.0 % LAB HEMETOLOGY METHOD 10/10/2024 10:58 AM EDT [facility] NRBC Absolute 0.00 <0.10 K/mcL LAB HEMETOLOGY METHOD 10/10/2024 10:58 AM EDT [facility] Blood Venous blood specimen / Unknown Venipuncture / Unknown 10/10/2024 5:37 AM EDT 10/10/2024 9:30 AM EDT us Ally Castañeda MD LAB BLOOD ORDERABLES Final Resul t [facility] [address] [place] [address], documented in this encounter Visit Diagnoses Diagnosis Malignant neoplasm of unspecified site of unspecified female breast (CMS/HCC V24, CMS/HCC V28) Hypothyroidism, unspecified Vitamin D deficiency, unspecified Vitamin B12 deficiency anemia, unspecified Spinal stenosis, site unspecified Chronic kidney disease, stage 3 unspecified (CMS/HCC V24, CMS/HCC V28) documented in this encounter Care Teams Rehabilitation Team Lead Relationship Specialty Start Date End Date Truong Colon MD [address] JAEL Christian PCP - General 05/19/22 documented as of this encounter
--- NOTE | 2025-01-13 11:41 | P.CONAN_ITS ---
Documented by User: Lilia Mao NP 01/13/25 11:45 HPI - Anesthesia Eval Consult details Narrative: 79 yr old female for upper endoscopy Seen at [facility] 12/24/24 for chest pain , found to have no new CP or SOB, BP was elevated; serial tropinins were neg, EKG without acute ST-T wave changes. Treated for UTI, prescribed prednisone x3 days. [facility] Active Problems Active Problems: All Active Problems Right leg pain (Acute) Right ankle pain (Acute) Right ankle swelling (Acute) Erysipelas of right lower extremity (Acute) Right leg swelling (Acute) Anxiety (Acute) Well woman exam (Acute) Lung consolidation (Acute) Pleural effusion, left (Acute) Lumbar radiculopathy (Acute) Mediastinal mass (Acute) Chronic pain syndrome (Acute) Chronic idiopathic constipation (Acute) Achalasia (Acute) Tinnitus, bilateral (Acute) Cervical cancer screening (Acute) Fibromyalgia (Acute) Low back pain (Acute) Urinary incontinence (Acute) Dysphagia (Acute) Thrombophlebitis of right leg (Acute) Low back pain with right-sided sciatica (Acute) Trochanteric bursitis, right hip (Acute) Primary osteoarthritis of right knee (Acute) Sjogrens syndrome (Acute) Osteopenia (Acute) S/P thymectomy (Acute 03/13/24) Osteoarthritis of right knee (Acute) BPV (benign positional vertigo) (Acute) Gait instability (Acute) Cervicogenic headache (Acute) Cervicalgia (Acute) Vertigo (Acute) Raynauds disease (Acute) Chronic kidney disease, stage III (moderate) (Acute) Obesity (BMI 30-39.9) (Acute) Benign essential hypertension (Acute) GERD without esophagitis (Acute) Acquired hypothyroidism (Acute) Lumbar spondylosis (Acute) Post laminectomy syndrome (Acute) PAC (premature atrial contraction) (Acute) Past Medical History Medical History Ambulates with cane Difficulty swallowing Osteoarthritis of right knee BPV (benign positional vertigo) Gait instability Cervicogenic headache Cervicalgia Vertigo Chronic kidney disease, stage III (moderate) Obesity (BMI 30-39.9) Gastritis Benign essential hypertension GERD without esophagitis Acquired hypothyroidism Constipation Lumbar spondylosis Post laminectomy syndrome Connective tissue disease Interstitial lung disease Osteopenia PAC (premature atrial contraction) Sjogrens syndrome Hypothyroid Breast cancer Raynauds disease SAMARA positive Family History Family History Father Emphysema of lung Cancer Brother Emphysema of lung Mother Bone cancer Son PONV (postoperative nausea and vomiting) Other Arthritis Family history of problems with anesthesia: No Surgical History Surgical History Status post lumbar spine surgery for decompression of spinal cord History of video-assisted thoracoscopic surgery (VATS) (03/13/24) 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) Hx of colonoscopy Hx of tubal ligation H/O varicose vein stripping History of cataract surgery H/O lumpectomy Hx of cholecystectomy History of back surgery History of Problems with Anesthesia: No Social History Social History Household Members: Significant Other and Children Housing: Apartment Are you a primary child care team lead to a significant other at home: No Do you presently have visiting nurse or other home services: Yes ([employer] 4 days a week, 2.5 hours) Alcohol intake: never Comment: pt reports this is her baseline pain Patient Tobacco Use Status: Never used Tobacco e-Cigarette/Vaping Use: Never Used Second Hand Smoke Exposure: No Advance Directives: No Advance Directives Information Provided: Yes Advance Directives Date on File: 10/07/24 service: No Current occupational status: retired Cognitive needs: No Hearing needs: No Vision needs: Yes (Glasses) Meds Allergies Allergy/AdvReac Type Severity Reaction Status Date / Time Penicillins (PENICILLINS) Allergy Intermediate rash Verified 01/05/25 11:36 senna Allergy Intermediate rash Verified 01/05/25 11:36 Home Medications ?Medication ?Instructions ?Recorded ?Confirmed ?Last Taken ?Type multivitamin 1 tab PO DAILY 11/15/20 08/01/1510/06/24 History calcitriol 0.5 mcg capsule 1 mcg PO WE@1645 01/10/23 0 12/19/24 1 Day Ago History ~10/01/24 Exam Pertinent Lab Results Pertinent Lab Results: Laboratory Tests 12/24/24 20:59 WBC 4.6 L RBC 3.96 L D Hgb 10.9 L Hct 33.7 L Plt Count 194 Sodium 139 Potassium 3.9 BUN 26 H Creatinine 1.18 Narrative Narrative: EKG 12/2024 Vent. Rate : 49 BPM Atrial Rate : 49 BPM P-R Int : 178 ms QRS Dur : 128 ms QT Int : 488 ms P-R-T Axes : * -15 58 degrees QTcB Int : 440 ms Sinus bradycardia Non-specific intra-ventricular conduction block Minimal voltage criteria for LVH, may be normal variant ( Turney product ) Nonspecific T wave abnormality Abnormal ECG When compared with ECG of 17-Mar-2024 11:07, No significant change was found Assessment and Plan Final Anesthetic Review Family History of Problems with Anesthesia: No History of Problems with Anesthesia: No Documented by User: Nathaly Medel MD 01/15/25 11:44 [facility] Past Medical History Medical History Ambulates with cane Difficulty swallowing Osteoarthritis of right knee BPV (benign positional vertigo) Gait instability Cervicogenic headache Cervicalgia Vertigo Chronic kidney disease, stage III (moderate) Obesity (BMI 30-39.9) Gastritis Benign essential hypertension GERD without esophagitis Acquired hypothyroidism Constipation Lumbar spondylosis Post laminectomy syndrome Connective tissue disease Interstitial lung disease Osteopenia PAC (premature atrial contraction) Sjogrens syndrome Hypothyroid Breast cancer Raynauds disease SAMARA positive Family History Family History Father Emphysema of lung Cancer Brother Emphysema of lung Mother Bone cancer Son PONV (postoperative nausea and vomiting) Other Arthritis Surgical History Surgical History Status post lumbar spine surgery for decompression of spinal cord History of video-assisted thoracoscopic surgery (VATS) (03/13/24) 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) Hx of colonoscopy Hx of tubal ligation H/O varicose vein stripping History of cataract surgery H/O lumpectomy Hx of cholecystectomy History of back surgery Social History Social History Household Members: Significant Other and Children Housing: Apartment Are you a primary child care team lead to a significant other at home: No Do you presently have visiting nurse or other home services: Yes ([employer] 4 days a week, 2.5 hours) Alcohol intake: never Comment: pt reports this is her baseline pain Patient Tobacco Use Status: Never used Tobacco e-Cigarette/Vaping Use: Never Used Second Hand Smoke Exposure: No Advance Directives: No Advance Directives Information Provided: Yes Advance Directives Date on File: 10/07/24 service: No Current occupational status: retired Cognitive needs: No Hearing needs: No Vision needs: Yes (Glasses) Meds Allergies Allergy/AdvReac Type Severity Reaction Status Date / Time Penicillins (PENICILLINS) Allergy Intermediate rash Verified 01/05/25 11:36 senna Allergy Intermediate rash Verified 01/05/25 11:36 Home Medications ?Medication ?Instructions ?Recorded ?Confirmed ?Last Taken ?Type multivitamin 1 tab PO DAILY 11/15/20 08/01/1510/06/24 History calcitriol 0.5 mcg capsule 1 mcg PO WE@1645 01/10/23 0 12/19/24 1 Day Ago History ~10/01/24 Exam Airway Mallampati Class: II TM Dist: >3cm Neck ROM: Limited Heart: rrr Lungs: cta Assessment and Plan Assessment Anesthesia Assessment: Anesthesia Plan Discussed and Chart Reviewed Final Anesthetic Review NPO: Yes ASA Class: III Final Preanesthetic Review: No Changes in Pt Med Stat, Meds/Allgs Chart Reviewed, Consent Obtained/Reviewed and Anes Risks/Benef Reviewed Patient Risk: Intermediate Procedure Risk: Low Anesthetic Plan Anesthetic Plan: MAC: Disposition: Standard PACU
[2025-01-15 11:54] VITALS: BMI 31.8
[2025-01-15 11:59] VITALS: BP 154/42; PULSE 55; RESP 16; TEMP 36.9; O2SAT 97
--- NOTE | 2025-01-15 12:04 | MHC.SHP ---
Pre-Procedural Eval Section A - 24 Hr Update-Section A only Date of Service: 01/15/25 Section B - Complete if H&P > 30 days Chief Complaint: Achalasia of cardia Details of Present Illness: BPV (benign positional vertigo) Gait instability Cervicogenic headache Cervicalgia Vertigo Gait instability Chronic kidney disease, stage III (moderate) Obesity (BMI 30-39.9) Gastritis Benign essential hypertension GERD without esophagitis Acquired hypothyroidism Constipation Lumbar spondylosis Post laminectomy syndrome Connective tissue disease CKD (chronic kidney disease) Interstitial lung disease Osteopenia COVID-19 vaccine series completed PAC (premature atrial contraction) Sjogrens syndrome GERD (gastroesophageal reflux disease) Hypothyroid Breast cancer Osteoarthritis Raynauds disease SAMARA positive HTN (hypertension) Surgical History Hx of tubal ligation H/O varicose vein stripping History of cataract surgery H/O lumpectomy Hx of cholecystectomy History of back surgery Present Medications: see Short Stay Collaborative assessment Allergies: Allergies Allergy/AdvReac Type Severity Reaction Status Date / Time Penicillins (PENICILLINS) Allergy Intermediate rash Verified 01/05/25 11:36 senna Allergy Intermediate rash Verified 01/05/25 11:36 Review of Systems Review of Systems Comment: Ten point ROS negative Exam Exam Comment: Gen appear: No acute distress HEENT: no icterus Chest: No overt resp distress Abd: soft, nontender, nondistended Psych: Stable affect, answering questions appropriately Neuro: A/Ox3 noted to move all extremities spontaneously Ext: no peripheral edema Plan Diagnosis/Plan: Unchanged I have reviewed the history and physical and performed a pertinent physical examination on my patient. No changes have occurred unless specified. Time Spent With Patient Time: Total time managing care of this patient today ____ minutes.
[2025-01-15] MEDS: Lactated Ringers 1,000 ML 100 ML IVCONT (12:15)
--- NOTE | 2025-01-15 13:03 | P.OP_ITS ---
Operative Note Operative Note Date of Service: 01/15/25 Narrative: Procedure: Esophagogastroduodenoscopy Endoscopist: Soniya Adam MD Indication: Dysphagia Anesthesia Provider: Heide Davison CRNA Anesthesia Type: MAC ?? EGD Procedure:?? The procedure, indications, preparation and potential complications were reviewed with the patient, who indicated understanding and gave written informed consent to proceed. A physical exam was performed. The endoscope was introduced through the mouth, and advanced to the second part of duodenum. The mucosa was carefully examined on slow withdrawal of the endoscope. The patient tolerated the procedure well. There were no immediate complications.? ? EGD Findings:? * Esophagus:? Normal mucosa noted in the entire esophagus. The Z line was at 35 cm displaced by hiatal hernia with the diaphragmatic pinch at 39 cm. Middle and lower esophagus forceps biopsies were obtained to rule out eosinophilic esophagitis. * Stomach:? Mild erythema and erosions noted in the cardia and body of the stomach. There were also a few benign-appearing gastric polyps in the fundus. Random cold forceps biopsies were taken from the stomach. Retroflexion was performed in the cardia that showed Hill grade 2 hiatal hernia. * Duodenum:? Normal mucosa was noted in the whole of the examined duodenum. Additional intervention: Soft tipped Savary wire was introduced through the biopsy channel of the gastroscope and advanced to the antrum. ?The gastroscope was then backed out. ?Savary Robert bougie was advanced over the guidewire and the esophagus was dilated from 15 to 17 mm with resistance felt. ?On relook, small tear at 25 cm with heme was noted confirming successful dilation. ? ? EGD Impressions:? * Mid esophageal narrowing (dilation) * Hiatal hernia * Gastric polyps * Gastritis (biopsy) * Normal duodenum ?? Recommendations:?? * Follow biopsy results. Our office will call or send a letter with results within 7-10 days. * Continue PPI therapy. * Avoid NSAIDs. Above has been reviewed with the patient.
[2025-01-15 13:34] VITALS: BP 135/62; PULSE 65; RESP 16; TEMP 36.4; O2SAT 97
[2025-01-15 13:49] VITALS: BP 157/64; PULSE 49; RESP 18; TEMP 36.2; O2SAT 100
== END 2025-01-15 14:31 | disposition home or self-care (01) ==
PROVIDERS: PCP Internal Medicine; Visit Provider Internal Medicine
PROC: 0DJ08ZZ Inspection of Upper Intestinal Tract, Via Natural or Artificial Opening Endoscopic (ICD-10-PCS; CPT 43235; principal; 2025-01-15 12:00)
DX: K22.0 Achalasia of cardia (principal); R13.10 Dysphagia, unspecified; K21.9 Gastro-esophageal reflux disease without esophagitis; K31.7 Polyp of stomach and duodenum; K44.9 Diaphragmatic hernia without obstruction or gangrene; K29.70 Gastritis, unspecified, without bleeding; K59.04 Chronic idiopathic constipation; I12.9 Hypertensive chronic kidney disease with stage 1 through stage 4 chronic kidney disease, or unspecified chronic kidney disease; N18.30 Chronic kidney disease, stage 3 unspecified; M35.00 Sjogren syndrome, unspecified; I73.00 Raynaud's syndrome without gangrene; I49.1 Atrial premature depolarization; Z79.899 Other long term (current) drug therapy; Z99.89 Dependence on other enabling machines and devices; Z88.0 Allergy status to penicillin; Z88.8 Allergy status to other drugs, medicaments and biological substances; Z90.49 Acquired absence of other specified parts of digestive tract; Z98.890 Other specified postprocedural states
CPT/HCPCS: 43248; 43239; 88305; 88313; 88342; C1769; J2003; J2704

== ENCOUNTER → 2025-01-15 11:17 | Outpatient (BNV) | payer OTHER, SELFPAY | PROVIDERS: PCP Internal Medicine; Visit Provider Internal Medicine | DX: R13.10 Dysphagia, unspecified (principal); K31.7 Polyp of stomach and duodenum; K22.89 Other specified disease of esophagus | CPT/HCPCS: 43239; 43248 ==

== ENCOUNTER 2025-02-17 10:32 | Outpatient (AMB) | payer OTHER, SELFPAY ==
--- OUTSIDE RECORDS SUMMARY | 2024-10-30 10:45 | XMS_ITS ---
Author Organization [facility] Address [address] [place] [address] Care Team Providers Care Cabinet Installer Name Role Phone Isaiah DURAN, Truong Primary Care Provider UnaBoby Bermudez Unavailable [phone] Encounters Encounter Location Date Provider Diagnosis [facility] [address] [address] 10/30/2024 Boby Chapman Plan Of Treatment Next Appt Details Provider Name:Boby Chapman , 03/30/2025 01:30:00 PM, [address] [facility], [place] [address], [place], [address], Progress Notes * Tommie BLANCASOB:[birth year] (79 yo F)Acc No.[id number]:10/30/2024 Progress Note Patient: Jacinda NUNEZ Provider: Alex Chapman DPM :1945 A ge:79 Y S ex:Female Date:10/30/2024 Address:[address] [place] [address], [place], [phone] Pcp:Truong Colon MD Subjective: * Chief Complaints: [...] 10/30/2024 Generated for Yovanny toussaint/Daniel on: 1 01:10 PM EDT
--- NOTE | 2025-02-17 10:34 | MHC.OFFVIS ---
Vital Signs 02/17/25 10:39 Height 5 ft 11 in Intake Visit Reasons: [facility] referral for pain in R leg Intake Note: [facility]/ [facility] referral for Right LE, started many years ago. Pt states she has some loss of balance due to weakness. Pt states she has pain that radiates down her Right LE w/ or w/o rest. Petal Shaper Hand Required: Yes Petal Shaper Hand Language: [employer] Hand Engraver Services: Petal Shaper Hand Present Petal Shaper Hand Name: Marsha [id number] Information Interpreted: non-clinical & clinical Accompanied by: Self / Same As Patient Allergies Penicillins (PENICILLINS) Allergy (Intermediate, Verified 02/17/25 10:43) rash senna Allergy (Intermediate, Verified 02/17/25 10:43) rash HPI HPI [facility]ISH[facility] referral for pain in R leg: Details: The patient is an 79-year-old female presenting with peripheral vascular disease. She reports significant pain in her right leg, describing it as severe and affecting her ability to walk. The pain is accompanied by itching and is localized below the ankles. The patient also experiences back pain, which contributes to her limited mobility. She is scheduled to see a doctor for her back pain the following day. She denies any history of smoking or diabetes, which are relevant to her vascular health. She now presents for vascular evaluation [facility] Medical History Ambulates with cane Difficulty swallowing Osteoarthritis of right knee BPV (benign positional vertigo) Gait instability Cervicogenic headache Cervicalgia Vertigo Chronic kidney disease, stage III (moderate) Obesity (BMI 30-39.9) Gastritis Benign essential hypertension GERD without esophagitis Acquired hypothyroidism Constipation Lumbar spondylosis Post laminectomy syndrome Connective tissue disease Interstitial lung disease Osteopenia PAC (premature atrial contraction) Sjogrens syndrome Hypothyroid Breast cancer Raynauds disease SAMARA positive Surgical History Status post lumbar spine surgery for decompression of spinal cord History of video-assisted thoracoscopic surgery (VATS) (03/13/24) 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) Hx of colonoscopy Hx of tubal ligation H/O varicose vein stripping History of cataract surgery H/O lumpectomy Hx of cholecystectomy History of back surgery Family History Father Emphysema of lung Cancer Brother Emphysema of lung Mother Bone cancer Son PONV (postoperative nausea and vomiting) Other Arthritis Social History Household Members: Significant Other and Children Housing: Apartment Are you a primary care program director to a significant other at home: No Do you presently have visiting nurse or other home services: No Alcohol intake: never Comment: pt reports this is her baseline pain Patient Tobacco Use Status: Never used Tobacco e-Cigarette/Vaping Use: Never Used Second Hand Smoke Exposure: No Advance Directives Date on File: 10/07/24 service: No Current occupational status: retired Cognitive needs: No Hearing needs: No Vision needs: Yes (Glasses) Review of Systems Const All systems reviewed & are unremarkable except as noted in HPI and below Reports no additional complaints ENT Reports Normal hearing present Card Denies chest pain, Denies chest pain at rest, Denies chest pain with activity and Denies pedal edema Resp Denies cough GI Denies abdominal pain Musc Denies abnormal gait, Denies muscle cramps and Denies radiating pain into limb Skin/Breast Denies skin ulcer and Denies wounds Neuro Reports Normal hearing present and Denies abnormal gait Psych Reports no additional complaints Physical Exam Const General: cooperative, healthy appearing and comfortable Orientation/consciousness: oriented to person, oriented to place and oriented to time HEENT Head: Yes normal to inspection Neck Neck: Yes normal visual inspection Carotids: no bruits Chest Chest palpation & inspection: normal inspection of the chest Resp Effort & Inspection: normal respiratory effort and able to speak in complete sentences Auscultation: clear to auscultation bilaterally, no crackles, no rales, no rhonchi and no wheezes Cardio Other: Palpable left lower extremity dorsalis pedis right side posterior tibial as palpable Rate: regular rate Rhythm: regular rhythm Heart sounds: S1 normal heart sound present and S2 normal heart sound present Bruits: no carotid bruits Peripheral pulses: Peripheral pulses 2+ throughout GI Inspection: Yes normal to inspection Skin Wounds: no wounds Hair: normal Neuro General: oriented to person, oriented to place and oriented to time Cranial nerves: Yes CN's II-XII intact bilaterally and Yes Normal hearing present Cognition (Neuro): normal cognition Motor exam (neuro): 5/5 motor strength present throughout Extrem Other: venous exam: No significant superficial varicosities or spider telangiectasias, minimal edema General: No clubbing, No cyanosis and No edema Psych Appearance: grossly normal Mental Status: mental status grossly normal Speech and movement: Normal speech and movement present Assessment & Plan Assessment & Plan (1) PAD (peripheral artery disease): Code(s): I73.9 - Peripheral vascular disease, unspecified Category: Medical Plan: I discussed with the patient the need for a special ultrasound to evaluate the blood flow in her legs due to the diminished pulses observed in the right foot. I discussed with her the pathophysiology of arterial disease. In addition I do believe that this may be neurogenic in origin due to her back pain issues. I have taken the liberty of ordering arterial testing to rule that out. I explained that the hospital will contact her to schedule the ultrasound, and we will follow up after the procedure to discuss the results and plan further management. She will follow up with us after testing. Thank you for allowing us to assist in her care. Orders: Orders US arterial duplex LE BI Today I73.9 - Peripheral vascular disease, unspecified Coding Level of Care Code New Pt Level 4 (12387) Diagnoses PAD (peripheral artery disease) I73.9
--- OUTSIDE RECORDS SUMMARY | 2025-02-17 13:09 | XMS_ITS | Encounter Summary ---
Author Organization [facility] Address [address] [place] [address] Phone Care Team Providers Care Wire Stitcher Name Role Phone Truong Colon MD Primary Care Provider [phone]- [phone] Encounter Details Date Type Department Care Team (Late Contact Info) Description 05/12/2021 Documentation Only [facility] [address] [place] [address] Eligio Meza MD [address] [place] [address] [place] [address] Social History Tobacco Use Types [...] Department Care Team (Late Contact Info) Description 03/17/2025 9:50 AM EST Office Visit [facility] [address] [place] [address] Romero Jimenez MD [address] [place] [address] [place] [address] documented as of this encounter Visit Diagnoses Not on filedocumented in this encounter Care Teams Wire Stitcher Relationship Specialty Start Date End Date Truong Colon MD [address] [place] [address] PCP - General Internal Medicine 03/06/23 documented as of this encounter
--- OUTSIDE RECORDS SUMMARY | 2025-02-17 13:09 | XMS_ITS | Patient Health Record ---
Author Organization [facility] Address [address] [place] [address] Care Team Providers Care Laboratory Sampler Name Role Phone Radha Pena Primary Care Provider UnavailTimoteo Sneed Unavailable [phone] Allergies Allergen (clinical drug ingredient) Drug/Non Drug [...] Problem Status W/U Status Risk Notes Problem Screening for malignant neoplasm of colon (241903644) Encounter for screening for malignant neoplasm of colon (Z12.11) Active confirmed Problem Screening for malignant neoplasm of rectum (132559464) Encounter for screening for malignant neoplasm of rectum (Z12.12) Active confirmed Problem Gastroesophageal reflux disease (742560509) Gastroesophageal reflux disease, esophagitis presence not specified (K21.9) Active confirmed Problem Constipation (72557373) Constipation, unspecified constipation type (K59.00) Active confirmed Plan Of Treatment Future Test Test Name Order Date UPPER GI ENDOSCOPY 11/30/2015 COLONOSCOPY 11/30/2015 Insurance Providers Payer Name Payer Address Payer Phone Subscriber Number Group Number Insured Name Patient Relationship to Insured Coverage Start Date Coverage End Date [facility] [address] [place] [address] [id number] NOE SALDIVAR Self - patient is the insured Medical (General) History Medical History History ICD Code Hypertension Kidney disease--mild renal insuffciency- -GFR of 40--Dr. Meza Denies MO,DM,CVA,Lung disease Neg. colonoscopy in 2004 exc ept for diverticulosis and internal hemorrhoids-- Neg. EGD in 2004--Dr. Bear Breast cancer on the left in 2013--lumpe ctomy and XRT Hypothyroidism GERD Surgical History Surgery Date(Month/Year) Cholecystectomy--Dr. Banks 2014 Bladder suspension Left lumpectomy for breast cancer in 4
--- OUTSIDE RECORDS SUMMARY | 2025-02-17 13:09 | XMS_ITS | Encounter Summary ---
Author Organization [facility] Address [address] [place] [address] Phone Care Team Providers Care Associate Counsel Name Role Phone Truong Colon MD Primary Care Provider [phone]- [phone] Encounter Details Date Type Department Care Team (Late Contact Info) Description 11/09/2021 Documentation Only [facility] [address] [place] [place] [address] Dimitris Suarez PA [address] [place] [place] [address] Social History Tobacco Use [...] [facility] [address] [place] [address] Romero Jimenez MD [address] [place] [address] documented as of this encounter Visit Diagnoses Not on filedocumented in this encounter Care Teams Associate Counsel Relationship Specialty Start Date End Date Truong Colon MD [address] [place] [address] PCP - General Internal Medicine 03/06/23 documented as of this encounter
--- OUTSIDE RECORDS SUMMARY | 2025-02-17 13:09 | XMS_ITS | Encounter Summary ---
Author Organization [facility] Address [address] [place] [address] Phone Care Team Providers Care Tram Inspector Name Role Phone Truong Colon MD Primary Care Provider [phone]- [phone] Encounter Details Date Type Department Care Team (Late Contact Info) Description 04/04/2024 Documentation Only [facility] [address] [place] [address] Jasmin Dumont [address] [place] [id number] Social History Tobacco Use Types Packs/Day [...] [facility] [address] [place] [address] Romero Jimenez MD [address] [place] [address] [place] [address] documented as of this encounter Visit Diagnoses Not on filedocumented in this encounter Care Teams Tram Inspector Relationship Specialty Start Date End Date Truong Colon MD [address] [place] [address] PCP - General Internal Medicine 03/06/23 documented as of this encounter
--- OUTSIDE RECORDS SUMMARY | 2025-02-17 13:09 | XMS_ITS | Encounter Summary ---
Author Organization [facility] Address [address] [place] [address] Phone Care Team Providers Care Evp Operations Name Role Phone Truong Colon MD Primary Care Provider +1- [phone] Encounter Details Date Type Department Care Team (Late Contact Info) Description 12/21/2021 Documentation Only [facility] [address] [place] [address] Dimitris Suarez PA [address] [place] [address] Social History Tobacco Use Types [...] [facility] [address] [place] [address] Romero Jimenez MD [address] [facility] [place] [address] documented as of this encounter Visit Diagnoses Not on filedocumented in this encounter Care Teams Evp Operations Relationship Specialty Start Date End Date Truong Colon MD [address] [place] [address] PCP - General Internal Medicine 03/06/23 documented as of this encounter
--- OUTSIDE RECORDS SUMMARY | 2025-02-17 13:09 | XMS_ITS | Encounter Summary ---
Author Organization [facility] Address [address] [place] [address] Phone Care Team Providers Care Gardener Florist Name Role Phone Truong Colon MD Primary Care Provider +1- [phone] Encounter Details Date Type Department Care Team (Late Contact Info) Description 04/10/2024 Documentation Only [facility] [address] [place] [address] Kylie Gabriel [address] [place] [address] Social History Tobacco Use Types [...] [facility] [address] [place] [address] Romero Jimenez MD [address] [place] [address] [place] [address] documented as of this encounter Visit Diagnoses Not on filedocumented in this encounter Care Teams Gardener Florist Relationship Specialty Start Date End Date Truong Colon MD [address] [place] [address] PCP - General Internal Medicine 03/06/23 documented as of this encounter
--- OUTSIDE RECORDS SUMMARY | 2025-02-17 13:09 | XMS_ITS | Encounter Summary ---
Author Organization [facility] Address [address] [place] [address] Phone Care Team Providers Care Reciprocating Drill Operator Name Role Phone Truong Colon MD Primary Care Provider +1- [phone] Encounter Details Date Type Department Care Team (Late Contact Info) Description 05/27/2024 Documentation Only [facility] [address] [place] [address] Kylie Gabriel [address] [place] [address] Social History Tobacco Use Types [...] Visit [facility] [address] [place] [address] Romero Jimenez MD [address] [place] [address] [place] [address] documented as of this encounter Visit Diagnoses Not on filedocumented in this encounter Care Teams Reciprocating Drill Operator Relationship Specialty Start Date End Date Truong Colon MD [address] [place] [address] PCP - General Internal Medicine 03/06/23 documented as of this encounter
--- OUTSIDE RECORDS SUMMARY | 2025-02-17 13:09 | XMS_ITS | Encounter Summary ---
Author Organization [facility] Address [address] [place] [address] Phone Care Team Providers Care Investor Relations Coordinator Name Role Phone Truong Colon MD Primary Care Provider +1- [phone] Encounter Details Date Type Department Care Team (Late Contact Info) Description 08/12/2024 Documentation Only [facility] [address] [place] [address] [place] [address] [place] [address] Social History Tobacco Use Types Packs/Day [...] [facility] [address] [place] [address] Romero Jimenez MD [address] [place] [address] [place] [address] documented as of this encounter Visit Diagnoses Not on filedocumented in this encounter Care Teams Investor Relations Coordinator Relationship Specialty Start Date End Date Truong Colon MD [address] [place] [address] PCP - General Internal Medicine 03/06/23 documented as of this encounter
--- OUTSIDE RECORDS SUMMARY | 2025-02-17 13:09 | XMS_ITS | Encounter Summary ---
Author Organization [facility] Address [address] [place] [address] Phone Care Team Providers Care Pelletizer Tender Name Role Phone Truong Colon MD Primary Care Provider +1- [phone] Encounter Details Date Type Department Care Team ([facility] Contact Info) Description 12/26/2024 Orders Only [facility] [address] [place] [address] Kylie Gabriel [address] [place] [address] Anemia in chronic kidney disease; [...] Care Team (Late st Contact Info) Description 03/17/2025 9:50 AM EST Office Visit [facility] [address] [address] Romero Jimeenz MD [address] [place] [address] documented as of this encounter Visit Diagnoses Diagnosis Anemia in chronic kidney disease Stage 3b chronic kidney disease (HCC) Iron deficiency anemia, not otherwise specified documented in this encounter Care Teams Pelletizer Tender Relationship Specialty Start Date End Date Truong Colon MD [address] [place] [address] PCP - General Internal Medicine 03/06/23 documented as of this encounter
--- OUTSIDE RECORDS SUMMARY | 2025-02-17 13:09 | XMS_ITS | Encounter Summary ---
Author Organization [facility] Address [address] [place] [address] Phone Care Team Providers Care Spd Manager Name Role Phone Truong Colon MD Primary Care Provider +1- [phone] Encounter Details Date Type Department Care Team (Late Contact Info) Description 05/16/2024 Orders Only [facility] [address] [place] [address] Kylie Gabriel [address] [place] [address] Anemia in chronic kidney disease; [...] Visit [facility] [address] [place] [address] Romero Jimenez MD [address] [facility] [place] [address] documented as of this encounter Visit Diagnoses Diagnosis Anemia in chronic kidney disease Stage 3b chronic kidney disease (HCC) Iron deficiency anemia, not otherwise specified documented in this encounter Care Teams Spd Manager Relationship Specialty Start Date End Date Truong Colon MD [address] [place] [address] PCP - General Internal Medicine 03/06/23 documented as of this encounter
--- OUTSIDE RECORDS SUMMARY | 2025-02-17 13:09 | XMS_ITS | Encounter Summary ---
Author Organization [facility] Address [address] [place] [address] Phone Care Team Providers Care Equip Tech Name Role Phone Truong Colon MD Primary Care Provider +1- [phone] Encounter Details Date Type Department Care Team (Late Contact Info) Description 04/24/2024 Documentation Only [facility] [address] [place] [address] Kylie Gabriel [address] [place] [address] Social History Tobacco Use Types [...] [facility] [address] [place] [address] Romero Jimenez MD [address] [place] [address] [place] [address] documented as of this encounter Visit Diagnoses Not on filedocumented in this encounter Care Teams Equip Tech Relationship Specialty Start Date End Date Truong Colon MD [address] [place] [address] PCP - General Internal Medicine 03/06/23 documented as of this encounter
--- OUTSIDE RECORDS SUMMARY | 2025-02-17 13:09 | XMS_ITS | Encounter Summary ---
Author Organization [facility] Address [address] [place] [address] Phone Care Team Providers Care Sales And Marketing Director Name Role Phone Truong Colon MD Primary Care Provider +1- [phone] Encounter Details Date Type Department Care Team (Late Contact Info) Description 04/10/2024 Documentation Only [facility] [address] [place] [address] Kylie Gabriel [address] [place] [address] Social History Tobacco Use [...] [facility] [address] [place] [address] Romero Jimenez MD [address] [place] [address] [place] [address] documented as of this encounter Visit Diagnoses Not on filedocumented in this encounter Care Teams Sales And Marketing Director Relationship Specialty Start Date End Date Truong Colon MD [address] [place] [address] PCP - General Internal Medicine 03/06/23 documented as of this encounter
--- OUTSIDE RECORDS SUMMARY | 2025-02-17 13:09 | XMS_ITS | Encounter Summary ---
Author Organization [facility] Address [address] [place] [address] Phone Care Team Providers Care Vat Operator Name Role Phone Truong Colon MD Primary Care Provider +1- [phone] Encounter Details Date Type Department Care Team ([facility] Contact Info) Description 11/28/2024 Orders Only [facility] [address] [place] [address] Kylie Gabriel [address] [place] [address] Anemia in chronic kidney disease; [...] Visit [facility] [address] [place] [address] Romero Jimenez MD [address] [facility] [place] [address] documented as of this encounter Visit Diagnoses Diagnosis Anemia in chronic kidney disease Stage 3b chronic kidney disease (HCC) Iron deficiency anemia, not otherwise specified documented in this encounter Care Teams Vat Operator Relationship Specialty Start Date End Date Truong Colon MD [address] [place] [address] PCP - General Internal Medicine 03/06/23 documented as of this encounter
--- OUTSIDE RECORDS SUMMARY | 2025-02-17 13:10 | XMS_ITS ---
Author Organization [facility] Address [address] [place] [address] Care Team Providers Care Tempering Machine Operator Name Role Phone Truong Colon MD Primary Care Provider +1- [phone] Active Problems Problem Noted Date Diagnosed Date Iron deficiency anemia 05/18/2022 Malignant neoplasm of upper- outer quadrant of left breast in female, estrogen receptor positive 03/28/2017 Gastroesophageal reflux disease without esophagi tis 03/28/2017 Acquired hypothyroidism 03/28/2017 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 Current Oncology Plans No current plan information found. Past Plans Radiation Treatments * No radiation treatments are documented for this patient in [facility]. Treatments may have been administered in another system.
--- OUTSIDE RECORDS SUMMARY | 2025-02-17 13:10 | XMS_ITS | Encounter Summary ---
Author Organization [facility] Address [address] [place] [address] Phone Care Team Providers Care Caseworker Name Role Phone Truong Colon MD Primary Care Provider +1- [phone] Encounter Details Date Type Department Care Team (Late Contact Info) Description 08/04/2024 Documentation Only [facility] [address] [place] [address] Kylie Gabriel [address] [place] [address] Social History Tobacco Use Types [...] [facility] [address] [place] [address] Romero Jimenez MD [address] [place] [address] [place] [address] documented as of this encounter Visit Diagnoses Not on filedocumented in this encounter Care Teams Caseworker Relationship Specialty Start Date End Date Truong Colon MD [address] [place] [address] PCP - General Internal Medicine 03/06/23 documented as of this encounter
--- OUTSIDE RECORDS SUMMARY | 2025-02-17 13:10 | XMS_ITS | Encounter Summary ---
Author Organization [facility] Address [address] [place] [address] Phone Care Team Providers Care Fusion Operator Name Role Phone Truong Colon MD Primary Care Provider +1- [phone] Encounter Details Date Type Department Care Team (Late Contact Info) Description 08/08/2024 Orders Only [facility] [address] [place] [address] Kylie Gabriel [address] [place] [address] Anemia in chronic kidney disease; [...] Visit [facility] [address] [place] [address] Romero Jimenez MD [address] [facility] [place] [address] documented as of this encounter Visit Diagnoses Diagnosis Anemia in chronic kidney disease Stage 3b chronic kidney disease (HCC) Iron deficiency anemia, not otherwise specified documented in this encounter Care Teams Fusion Operator Relationship Specialty Start Date End Date Truong Colon MD [address] [place] [address] PCP - General Internal Medicine 03/06/23 documented as of this encounter
--- OUTSIDE RECORDS SUMMARY | 2025-02-17 13:10 | XMS_ITS | Encounter Summary ---
Author Organization [facility] Address [address] [place] [address] Phone Care Team Providers Care Shoemaker Custom Name Role Phone Truong Colon MD Primary Care Provider +1- [phone] Encounter Details Date Type Department Care Team ([facility] Contact Info) Description 01/23/2025 Orders Only [facility] [address] [place] [address] Kylie Gabriel [address] [place] [address] Anemia in chronic kidney disease; [...] [facility] [address] [place] [address] Romero Jimenez MD [address] [facility] [place] [address] documented as of this encounter Visit Diagnoses Diagnosis Anemia in chronic kidney disease Stage 3b chronic kidney disease (HCC) Iron deficiency anemia, not otherwise specified documented in this encounter Care Teams Shoemaker Custom Relationship Specialty Start Date End Date Truong Colon MD [address] [place] [address] PCP - General Internal Medicine 03/06/23 documented as of this encounter
--- OUTSIDE RECORDS SUMMARY | 2025-02-17 13:10 | XMS_ITS | Clinical Summary ---
Author Organization [facility] Address [address] [place] [address] Phone Care Team Providers Care Nutter Up Name Role Phone Truong Colon MD Primary Care Provider +1 [phone] Allergies Active Allergy Reactions Criticality Noted Date [...] positive ([facility] V24, [facility] V28) 07/03/2023 Iron deficiency anemia 05/18/2022 Acquired hypothyroidism 03/28/2017 Gastroesophageal reflux disease without esophagi tis 03/28/2017 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 Surgical History Surgery Date Site/Laterality Comments LUMBAR DISC SURGERY PROCEDURE:LUMBAR DISC SURGERY Medical History Medical History Date Comments Malignant neoplasm of upper- outer quadrant of left female breast ([facility] V24, [facility] V28) DX:Malignant neoplasm of upp er-outer [...] Description 11/04/2025 10:30 AM EDT Office Visit [facility] Hematology Oncology [address] [place] [address] Jennifer Ca MD [address] [place] [address] Health Maintenance Due Date Last Done Comments Colorectal Cancer Screening: Colonoscopy 1945 Zoster Vaccines (1 of 2) 03/23/2014 01/26/2014 RSV Immunization Adult Patients (1 - 1-dose 75+ series) 08/30/2018 COVID-19 Vaccine (3 - Moderna risk series) 09/14/2020 08/17/2020, 07/20/2020 Cholesterol Screening (Lipid Panel) 03/31/2022 Falls Risk Assessment 03/31/2022 Medicare Annual [...] stenosis, site unspecified Chronic kidney disease, unspecified DXA BONE DENSITY STUDY 1+ SITS AXIAL SKEL Routine 10/07/2021 10:23 AM EDT Other specified disorders of bone density and structure, left thigh from Last 3 Months or Most Recently Relevant to Health Maintenance Results * Basic metabolic panel (10/31/2024 7:20 [...] 10/31/2024 11:08 AM [facility] Anion Gap 3 3 - [...] 11:08 AM EDT [facility] Blood Venous blood specimen / Unknown Venipuncture / Unknown 10/31/2024 7:20 AM EDT 10/31/2024 10:27 AM EDT us Ally Castañeda MD LAB BLOOD ORDERABLES Final Resul t [facility] [address] [place] [address], * DXA BONE DENSITY STUDY 1+ SITS AXIAL SKEL (10/07/2021 10:23 AM EDT) Anatomical Region Laterality Modality Bone Densitometr y 05/10/2021 11:5 1 AM EST Narrative 10/07/2021 4:32 PM EDT Clinical history: other osteoporosis Scans of the lumbar spine and hips were performed on a [employer] fan beam bone densitometer. Bone mineral density [...] spine and hips were performed on a [employer] beam bone densitometer. Bone mineral density measurements [...] Subscriber Plan / Payer (Ef fective 2012-Present) Name:Yvonne Blancasen Relation to Subscriber:Self Name:Noe Blancas Payer ID:[id number] Group ID:[id number] Type:Not on file Address: [address] [place] [address] Care Teams Nutter Up Relationship Specialty Start Date End Date Truong Colon MD [address] [place] [address] [address] [place], [place] PCP - General 05/19/22
--- OUTSIDE RECORDS SUMMARY | 2025-02-17 13:10 | XMS_ITS | Clinical Summary ---
Author Organization [facility] Address [address] [place] [address] Care Team Providers Care Industrial Gas Servicer Supervisor Name Role Phone Truong Colon MD Primary Care Provider +1- [phone] Allergies Active Allergy Reactions Criticality Noted Date [...] age to complete this topic Care Teams Industrial Gas Servicer Supervisor Relationship Specialty Start Date End Date Truong Colon MD [address] [place] [address] PCP - General Internal Medicine 05/19/22
--- OUTSIDE RECORDS SUMMARY | 2025-02-17 13:11 | XMS_ITS | Encounter Summary ---
Author Organization [facility] Address [address] [place] [address] Phone Care Team Providers Care Deputy Bailiff Name Role Phone Truong Colon MD Primary Care Provider +1- [phone] Encounter Details Date Type Department Care Team (Late Contact Info) Description 10/03/2024 Orders Only [facility] [address] [place] [address] Kylie Gabriel [address] [place] [address] Anemia in chronic kidney disease; [...] [facility] [address] [place] [address] Romero Jimenez MD [address] [facility] [place] [address] documented as of this encounter Visit Diagnoses Diagnosis Anemia in chronic kidney disease Stage 3b chronic kidney disease (HCC) Iron deficiency anemia, not otherwise specified documented in this encounter Care Teams Deputy Bailiff Relationship Specialty Start Date End Date Truong Colon MD [address] [place] [address] PCP - General Internal Medicine 03/06/23 documented as of this encounter
--- OUTSIDE RECORDS SUMMARY | 2025-02-17 13:11 | XMS_ITS | Encounter Summary ---
Author Organization [facility] Address [address] [place] [address] Phone Care Team Providers Care Cover Inspector Name Role Phone Truong Colon MD Primary Care Provider +1- [phone] Encounter Details Date Type Department Care Team (Late Contact Info) Description 05/04/2022 Documentation Only [facility] [address] [place] [address] Kylie Gabriel [address] [place] [address] Social History Tobacco Use Types [...] [facility] [address] [place] [address] Romero Jimenez MD [address] [place] [address] [place] [address] documented as of this encounter Visit Diagnoses Not on filedocumented in this encounter Care Teams Cover Inspector Relationship Specialty Start Date End Date Truong Colon MD [address] [place] [address] PCP - General Internal Medicine 03/06/23 documented as of this encounter
--- OUTSIDE RECORDS SUMMARY | 2025-02-17 13:11 | XMS_ITS | Encounter Summary ---
Author Organization [facility] Address [address] [place] [address] Phone Care Team Providers Care Powerhouse Mechanic Name Role Phone Truong Colon MD Primary Care Provider +1- [phone] Encounter Details Date Type Department Care Team (Late Contact Info) Description 04/11/2022 Documentation Only [facility] [address] [place] [address] Kylie Gabriel [address] [place] [address] Social History Tobacco Use Types [...] [facility] [address] [place] [address] Romero Jimenez MD [address] [place] [address] [place] [address] documented as of this encounter Visit Diagnoses Not on filedocumented in this encounter Care Teams Powerhouse Mechanic Relationship Specialty Start Date End Date Truong Colon MD [address] [place] [address] PCP - General Internal Medicine 03/06/23 documented as of this encounter
--- OUTSIDE RECORDS SUMMARY | 2025-02-17 13:11 | XMS_ITS | Patient Health Record ---
Author Organization [facility] [place] Address [address] [facility] [place] [address] Care Team Providers Care Filter Cloth Maker Name Role Phone Isaiah DURAN, Dayhoit Primary Care Provider Boby Laguerre Unavailable [phone] Allergies Allergen (clinical drug ingredient) Drug/Non Drug Allergy documented on EMR Reaction Allergy Type Onset Date Status sennosides, [facility] Senna rash and machado Drug Allergy Active [...] Unknown 03/20/2019 Administered Influenza Unknown 12/15/2024 Refused Social History Tobacco Use: Social History Observation [...] Problem Acquired hammer toe of right foot (8079298039664063 ) Other hammer toe(s) (acquired), right foot (M20.41) Active confirmed Response to treatment, Improvemen t Problem Acquired hammer toe of left foot (5911251209922654 ) Other hammer toe(s) (acquired), left foot (M20.42) Active confirmed Response to treatment, Improvemen t Problem Bilateral atherosclerosis of arteries of lower limbs (disorder) ([id number] 7) Atherosclerosis of [place] artery of both lower extremities, with unspecified presence of clinical manifestation (I70.203) Active confirmed Vital Signs Blood pressure diastolic 64 mm Hg 12/15/2024 Height 5 ft 9in in 12/15/2024 Blood pressure systolic 127 mm Hg 12/15/2024 Weight 230 lbs 12/15/2024 BMI 33.96 kg/m2 12/15/2024 Procedures Procedure Date Ordered Date Performed Result Body Sit e 51594-OULKOSI NAIL, 6 OR MORE 05/05/2024 N/A 14937-XNMA SKIN LESIONS, OVER 4 05/05/2024 N/A 89340-SUUCUYH NAIL, 6 OR MORE 07/31/2024 N/A 77106-YZGU SKIN LESIONS, OVER 4 07/31/2024 N/A 86528-NEXOCXF NAIL, 6 OR MORE 12/15/2024 N/A 52643-XHTY SKIN LESIONS, OVER 4 12/15/2024 N/A Encounters Encounter Location Date Provider Diagnosis [address] [address] 05/05/2024 Boby Chapman Atherosclerosis of [place] artery of both lower extremities, with unspecified presence of clinical manifestation I70.203 ; Tinea unguium B35.1 ; Pain in right toe(s) M79.674 ; Pain in left toe(s) M79.675 ; Other hammer toe(s) (acquired), right foot M20.41 and Other hammer toe(s) (acquired), left foot M20.[address] [address] 07/31/2024 Boby Chapman Atherosclerosis of [place] artery of both lower extremities, with unspecified presence of clinical manifestation I70.203 ; Tinea unguium B35.1 ; Pain in right toe(s) M79.674 ; Pain in left toe(s) M79.675 ; Other hammer toe(s) (acquired), right foot M20.41 and Other hammer toe(s) (acquired), left foot M20.[address] [address] 12/15/2024 Boby Chapman Atherosclerosis of [place] artery of both lower extremities, with unspecified presence of clinical manifestation I70.203 ; Tinea unguium B35.1 ; Pain in right toe(s) M79.674 and Pain in left toe(s) M79.[address] [address] 10/30/2024 oBby Chapman Assessments Encounter Date Diagnosis (ICD Code) Assessment Notes Treatment Notes Treatment Clinical Notes Section Notes 05/05/2024 Tinea unguium (ICD-10 - B35.1) 05/05/2024 Atherosclerosis of [place] artery of both lower extremities, with unspecified presence of clinical manifestation (ICD-10 - I70.203) 07/31/2024 Tinea unguium (ICD-10 - B35.1) 07/31/2024 Atherosclerosis of [place] artery of both lower extremities, with unspecified presence of clinical manifestation (ICD-10 - I70.203) 12/15/2024 Tinea unguium (ICD-10 - B35.1) 12/15/2024 Atherosclerosis of [place] artery of both lower extremities, with unspecified [...] toe(s) (acquired), left foot (ICD-10 - M20.42) 07/31/2024 Other hammer toe(s) (acquired), left foot (ICD-10 - M20.42) Plan Of Treatment Pending Test Test Name Order Date 30874-YSCLVUS NAIL, 6 OR MORE 03/21/2017 64000-HOCVAUG NAIL, 6 OR MORE 05/30/2017 93752-ERXMGTP NAIL, 6 OR MORE 08/06/2017 71786-KRADJRI NAIL, 6 OR MORE 10/25/2017 00745-YPAMKWL NAIL, 6 OR MORE 03/20/2018 61313-FNDZNGJ NAIL, 6 OR MORE 06/13/2018 34607-WCKCMRM NAIL, 6 OR MORE 01/07/2018 32827-SUHGPEF NAIL, 6 OR MORE 08/14/2018 63539-SQNKMLP NAIL, 6 OR MORE 10/17/2018 90980-IWLQAMO NAIL, 6 OR MORE 01/16/2019 17107-WPXZGHW NAIL, 6 OR MORE 04/03/2019 11943-AORJLWI NAIL, 6 OR MORE 06/16/2019 07670-ZVMOEIE NAIL, 6 OR MORE 08/27/2019 73678-QZCGNUF NAIL, 6 OR MORE 12/18/2019 11803-KFXDROR NAIL, 6 OR MORE 05/06/2020 85534-FXBPZCU NAIL, 6 OR MORE 07/15/2020 42124-NETNMOK NAIL, 6 OR MORE 09/29/2020 89347-HKMOTLN NAIL, 6 OR MORE 12/02/2020 66919-MRVBCEZ NAIL, 6 OR MORE 02/17/2021 38304-MGUGJUB NAIL, 6 OR MORE 06/16/2021 50031-KDVIIWR NAIL, 6 OR MORE 08/29/2021 21745-SRVWWZX NAIL, 6 OR MORE 11/10/2021 89389-GCWAVTL NAIL, 6 OR MORE 01/19/2022 21892-GHUNMJL NAIL, 6 OR MORE 04/05/2022 54423-BYUPGZX NAIL, 6 OR MORE 06/15/2022 08157-JOLGZGE NAIL, 6 OR MORE 08/24/2022 84308-QKUWRUX NAIL, 6 OR MORE 11/16/2022 51346-FBGBFLG NAIL, 6 OR MORE 01/25/2023 91807-VGTVPLY NAIL, 6 OR MORE 04/11/2023 99409-YSPKJCP NAIL, 6 OR MORE 06/27/2023 79190-EUDBMXA NAIL, 6 OR MORE 08/30/2023 76806-YSXKUSF NAIL, 6 OR MORE 11/08/2023 42171-UJDDAVF NAIL, 6 OR MORE 01/24/2024 75514-TSOSCAR NAIL, 6 OR MORE 05/05/2024 92866-AMAMGQT NAIL, 6 OR MORE 07/31/2024 52753-UPMLREM NAIL, 6 OR MORE 12/15/2024 04093-SPXYGIZ NAIL, 1-5 11/01/2016 03449-AOFQIEK NAIL, 1-5 01/03/2017 92645-URMXJJT NAIL, 1-5 11/15/2015 49219-GUSALLK NAIL, -01/24/2016 30205-BMFSDFY NAIL, -04/05/2016 26841-JNIHUZO NAIL, -06/14/2016 76787-RGVHLRL NAIL, 04-2708/23/2016 16492-Uonv Destruction, 05-0611/01/2016 86492-Ynwi Destruction, 05-0601/03/2017 83960-Gvao Destruction, 05-0603/21/2017 17588-Auwf Destruction, 05-0605/30/2017 33128-Cghl Destruction, 05-0608/06/2017 12221-Jlkf Destruction, 05-0605/06/2020 12820-Rcid Destruction, 05-0612/18/2019 64694-Xwpw Destruction, 05-0608/27/2019 28048-Ymdr Destruction, 05-0606/16/2019 06471-Lbpi Destruction, 05-0604/03/2019 87159-Muwf Destruction, 05-0601/16/2019 09830-Pgem Destruction, 05-0610/17/2018 38197-Yfho Destruction, 05-0608/14/2018 61414-Pziq Destruction, 05-0606/13/2018 25453-Abox Destruction, 05-0610/25/2017 20888-Bjzx Destruction, 05-0601/07/2018 27140-Horx Destruction, 05-0608/30/2023 64540-Qvxe Destruction, 05-0606/27/2023 25312-Wdus Destruction, 05-0604/11/2023 96542-Kswa Destruction, 05-0601/25/2023 91193-Kgzm Destruction, 05-0611/16/2022 29564-Zxuy Destruction, 05-0608/24/2022 59729-Nbrk Destruction, 05-0606/15/2022 72237-Vsto Destruction, 05-0604/05/2022 96923-Gstp Destruction, 05-0601/19/2022 41738-Zgav Destruction, 05-0606/16/2021 02973-Egmq Destruction, 05-0603/20/2018 27496-Jrkb Destruction, 05-0611/10/2021 08407-Xbay Destruction, 05-0608/29/2021 41903-Aike Destruction, 1-14 02/17/2021 66980-Tlio Destruction, 1-14 12/02/2020 50793-Wntq Destruction, 1-14 09/29/2020 09054-Jksh Destruction, 1-14 07/15/2020 54532-Wuhr Destruction, 1-14 01/24/2024 23725-Esqa Destruction, 1-14 11/08/2023 05047-Afcauypt Plate 11/08/2023 37332-Nfomzlmx Plate 09/29/2020 53253-Upvjfows Plate 12/02/2020 53208-Rjihbuyv Plate 02/17/2021 42346-Anvexmiz Plate 06/16/2021 72154-Bmtaxidi Plate 08/29/2021 76583-Liblvoee Plate 11/10/2021 68903-Hncrhdch Plate 01/19/2022 37585-Eoiacgtq Plate 04/05/2022 83902-Uygogdrr Plate 06/15/2022 80636-Zkzisnrk Plate 08/24/2022 54778-Nkktackv Plate 11/16/2022 69259-Rfsufkzg Plate 01/25/2023 89930-Ionhbbil Plate 04/11/2023 34997-Gylnebkp Plate 06/27/2023 34769-Osghiyfv Plate 08/30/2023 60424-Dwdwkaeb Plate 12/18/2019 43966-Wwuckyri Plate 05/06/2020 20885-Jfqoqdli Plate 07/15/2020 87392-Lqjqnvsx Plate 11/01/2016 77205-Wqcixcpk Plate Each Additional 12/2023 02403-Dijzmsps Plate Each Additional 09/2023 11690-Kxmzveed Plate Each Additional 02852-Rknvaupc Plate Each Additional 08/2022 90636-Qlyjmekb Plate Each Additional 24135-Kmgdfdev Plate Each Additional 07/2022 29139-Bgtwqzwq Plate Each Additional 72865-Oqbnsafy Plate Each Additional 02068-Uqwhspsn Plate Each Additional 41515-Qolpvvbr Plate Each Additional 91703-LNGR SKIN LESIONS, OVER 4 11/08/19 67901-MUKV SKIN LESIONS, OVER 4 01/24/20 71322-RKFX SKIN LESIONS, OVER 4 05/05/19 22023-ZIKD SKIN LESIONS, OVER 4 12/16/19 07010-CBHV SKIN LESIONS, OVER 4 08/01/19 66989-CWXA SKIN LESIONS, OVER 4 06/16/19 22514-SSKC SKIN LESIONS, OVER 4 01/20/20 93781-QQBR SKIN LESIONS, OVER 4 11/11/19 99612-TDPP SKIN LESIONS, OVER 4 08/30/19 80485-LQPQ SKIN LESIONS, OVER 4 02/18/20 00651-MCGJ SKIN LESIONS, OVER 4 12/03/19 71850-KYRT SKIN LESIONS, OVER 4 09/30/19 07309-JZKX SKIN LESIONS, OVER 4 07/16/19 52108-HONQ SKIN LESIONS, OVER 4 04/05/20 53718-XLAZ SKIN LESIONS, OVER 4 06/15/19 85391-FMHI SKIN LESIONS, OVER 4 08/25/19 28495-ZHUP SKIN LESIONS, OVER 4 11/17/19 97242-AVKW SKIN LESIONS, OVER 4 01/26/20 40042-NENQ SKIN LESIONS, OVER 4 04/11/20 48656-OQRR SKIN LESIONS, OVER 4 06/27/19 40281-CTRS SKIN LESIONS, OVER 4 08/30/19 17232-VLRM SKIN LESIONS, OVER 4 03/21/20 62771-YWZE SKIN LESIONS, OVER 4 01/04/20 17 07385-FKRV SKIN LESIONS, OVER 4 10/26/19 18 67834-MDWB SKIN LESIONS, OVER 4 08/07/19 18 46776-STEC SKIN LESIONS, OVER 4 05/30/19 18 98712-MZJV SKIN LESIONS, OVER 4 11/02/19 17 40548-XLPT SKIN LESIONS, OVER 4 06/14/19 17 15333-ZEKS SKIN LESIONS, OVER 4 04/05/20 16 40257-UXIV SKIN LESIONS, OVER 4 08/24/19 00978-FJPF SKIN LESIONS, OVER 4 01/24/20 06552-LNRL SKIN LESIONS, OVER 4 11/15/19 63040-EFCD SKIN LESIONS, OVER 4 08/16/19 82489-CLDD SKIN LESIONS, OVER 4 05/06/19 18709-BWDE SKIN LESIONS, OVER 4 08/27/20 20 44623-MSAC SKIN LESIONS, OVER 4 08/27/19 20 33256-ITCS SKIN LESIONS, OVER 4 04/03/20 19 18903-PFMF SKIN LESIONS, OVER 4 06/16/19 20 21132-NVAY SKIN LESIONS, OVER 4 01/08/20 18 90520-WDAG SKIN LESIONS, OVER 4 06/13/19 19 45245-SVDO SKIN LESIONS, OVER 4 08/15/19 19 82900-WETF SKIN LESIONS, OVER 4 03/20/20 18 88049-LGXG SKIN LESIONS, OVER 4 10/18/19 19 99071-DNKP SKIN LESIONS, OVER 4 01/17/20 19 Q6858-RDGEOAZR DYSTROPHIC NAILS ANY # D9116-WBOFHCBX DYSTROPHIC NAILS ANY # O7493-EEYTEBNB DYSTROPHIC NAILS ANY # D0527-UPDXZKHF DYSTROPHIC NAILS ANY # H8607-WRKPBDIT DYSTROPHIC NAILS ANY # K0375-FQLROAUX DYSTROPHIC NAILS ANY # R3830-RZKJXXWW DYSTROPHIC NAILS ANY # X5872-JIDPFCGM DYSTROPHIC NAILS ANY # Next Appt Details Provider Name:Boby Chapman , 03/30/2025 01:30:00 PM, [address] [facility], [place] [address], [place], [address], Insurance Providers Payer Name Payer Address Payer Phone Subscriber Number Group Number Insured Name Patient Relationship to Insured Coverage Start Date Coverage End Date [facility] [employer] Claims [address] [place] [id number] Jacinda Benavidez Self - patient is the insured Medical (General) History Medical History History ICD Code Anemia Anxiety Arthritis Back,Hip,and Knee pain Cataracts High blood pressure Liver disease Reflux Thyroid disorder Surgical History Surgery Date(Month/Year) gall bladder 12/11/2014 Unspecified Right Hand SX 03/13/17 Hospitalization History Reason Date(Month/Year) C- back pain 10/03/24
--- OUTSIDE RECORDS SUMMARY | 2025-02-17 13:11 | XMS_ITS | Encounter Summary ---
Author Organization [facility] [place] [address] Care Team Providers Care Key Punch Teacher Name Role Phone Truong Colon MD Primary Care Provider Encounter Details Date Type Department Care Team (Late Contact Info) Description 10/30/[address] [facility] - [facility] Lab [address] [place] [address] Ally Castañeda MD [address] [place] [address] Spinal stenosis, site unspecified; Chronic [...] Office Visit [facility] Hematology Oncology [address] [place] [address] Jennifer Ca MD [address] [place] [address] [phone] (work) documented as of this encounter Procedures [...] mmol/L LAB CHEMISTRY METHOD 10/31/2024 11:08 AM [facility] Potassium 4.7 3.5 - 5.5 mmol/L LAB CHEMISTRY METHOD 10/31/2024 11:08 AM [facility] Chloride 109 96 - 110 mmol/L LAB CHEMISTRY METHOD 10/31/2024 11:08 AM [facility] CO2 30 21 - 32 mmol/L LAB CHEMISTRY METHOD 10/31/2024 11:08 AM [facility] Anion Gap 3 3 - 11 LAB CHEMISTRY METHOD 10/31/2024 11:08 AM [facility] Glucose 78 70 - 100 mg/dL LAB CHEMISTRY METHOD 10/31/2024 11:08 AM [facility] BUN 11 5 - 25 mg/dL LAB CHEMISTRY METHOD 10/31/2024 11:08 AM [facility] Creatinine 0.92 0.50 - 1.10 mg/dL LAB CHEMISTRY METHOD 10/31/2024 11:08 AM [facility] eGFR 63 >=60 mL/min/1. 73m2 LAB CHEMISTRY METHOD 10/31/2024 11:08 AM [facility] Comment:Calculation based on the Chronic Kidney Disease Epidemiology Collaboration (CKD-EPI) equation refit without adjustment for race. BUN/Creatinine Ratio 12.0 LAB CHEMISTRY METHOD 10/31/2024 11:08 AM EDT [facility] Calcium 8.9 8.5 - 10.5 mg/dL LAB CHEMISTRY METHOD 10/31/2024 11:08 AM [facility] Blood Venous blood specimen / Unknown Venipuncture / Unknown 10/31/2024 7:20 AM EDT 10/31/2024 10:27 AM EDT us Ally Castañeda MD LAB BLOOD ORDERABLES Final Resul t [facility] [address] [place] [address], * (ABNORMAL) Complete blood count (10/31/2024 7:20 AM EDT) WBC 3.7(L) 4.8 - 10.8 K/mcL LAB HEMETOLOGY METHOD 10/31/2024 10:38 AM [facility] RBC 3.60(L) 3.80 - 4.80 M/mcL LAB HEMETOLOGY METHOD 10/31/2024 10:38 AM [facility] Hemoglobin 9.9(L) 11.5 - 16.0 g/dL LAB HEMETOLOGY METHOD 10/31/2024 10:38 AM [facility] Hematocrit 32.8(L) 35.0 - 47.0 % LAB HEMETOLOGY METHOD 10/31/2024 10:38 AM [facility] MCV 90.6 79.0 - 98.0 FL LAB HEMETOLOGY METHOD 10/31/2024 10:38 AM [facility] MCH 27.3 27.0 - 32.0 pcg LAB HEMETOLOGY METHOD 10/31/2024 10:38 AM [facility] MCHC 30.2(L) 32.0 - 37.0 g/dL LAB HEMETOLOGY METHOD 10/31/2024 10:38 AM EDT [facility] RDW 15.1(H) 11.0 - 15.0 % LAB HEMETOLOGY METHOD 10/31/2024 10:38 AM EDT [facility] Platelets 239 130 - 400 K/mcL LAB HEMETOLOGY METHOD 10/31/2024 10:38 AM EDT [facility] MPV 10.6 7.0 - 11.0 FL LAB HEMETOLOGY METHOD 10/31/2024 10:38 AM EDT [facility] NRBC 0.0 <1.0 % LAB HEMETOLOGY METHOD 10/31/2024 10:38 AM EDT [facility] NRBC Absolute 0.00 <0.10 K/mcL LAB HEMETOLOGY METHOD 10/31/2024 10:38 AM EDT [facility] Blood Venous blood specimen / Unknown Venipuncture / Unknown 10/31/2024 7:20 AM EDT 10/31/2024 10:27 AM EDT us Ally Castañeda MD LAB BLOOD ORDERABLES Final Resul t [facility] [address] [place] [address], documented in this encounter Visit Diagnoses Diagnosis Spinal stenosis, site unspecified Chronic kidney disease, unspecified documented in this encounter Care Teams Key Punch Teacher Relationship Specialty Start Date End Date Truong Colon MD [address] [place] PCP - General 05/19/22 documented as of this encounter
--- OUTSIDE RECORDS SUMMARY | 2025-02-17 13:11 | XMS_ITS | Encounter Summary ---
Author Organization [facility] Address [address] [place] [address] Phone Care Team Providers Care Apparel Machinery Instructor Name Role Phone Truong Colon MD Primary Care Provider +1- [phone] Encounter Details Date Type Department Care Team ([facility] Contact Info) Description 09/05/2024 Orders Only [facility] [address] [address] Kylie Gabriel [address] [place] [address] Anemia in chronic kidney disease; [...] [facility] [address] [place] [address] Romero Jimenez MD [address] [place] [place] [address] documented as of this encounter Visit Diagnoses Diagnosis Anemia in chronic kidney disease Stage 3b chronic kidney disease (HCC) Iron deficiency anemia, not otherwise specified documented in this encounter Care Teams Apparel Machinery Instructor Relationship Specialty Start Date End Date Truong Colon MD [address] [place] [address] PCP - General Internal Medicine 03/06/23 documented as of this encounter
--- OUTSIDE RECORDS SUMMARY | 2025-02-17 13:11 | XMS_ITS | Encounter Summary ---
Author Organization [facility] Address [address] [place] [address] Phone Care Team Providers Care Tone Regulator Name Role Phone Truong Colon MD Primary Care Provider +1- [phone] Encounter Details Date Type Department Care Team (Late Contact Info) Description 10/26/2023 Documentation Only [facility] [address] [place] [address] Kylie Gabriel [address] [place] [address] Social History Tobacco Use Types [...] [facility] [address] [place] [address] Romero Jimenez MD [address] [place] [address] [place] [address] documented as of this encounter Visit Diagnoses Not on filedocumented in this encounter Care Teams Tone Regulator Relationship Specialty Start Date End Date Truong Colon MD [address] [place] [address] PCP - General Internal Medicine 03/06/23 documented as of this encounter
--- OUTSIDE RECORDS SUMMARY | 2025-02-17 13:11 | XMS_ITS | Encounter Summary ---
Author Organization [facility] Address [address] [place] [address] Phone Care Team Providers Care Dozer Operator Name Role Phone Truong Colon MD Primary Care Provider +1- [phone] Encounter Details Date Type Department Care Team (Late Contact Info) Description 10/29/2023 Documentation Only [facility] [address] [place] [address] Kylie Gabriel [address] [place] [address] Social History Tobacco Use Types [...] [facility] [address] [place] [address] Romero Jimenez MD [address] [place] [address] [place] [address] documented as of this encounter Visit Diagnoses Not on filedocumented in this encounter Care Teams Dozer Operator Relationship Specialty Start Date End Date Truong Colon MD [address] [place] [address] PCP - General Internal Medicine 03/06/23 documented as of this encounter
--- OUTSIDE RECORDS SUMMARY | 2025-02-17 13:11 | XMS_ITS | Encounter Summary ---
Author Organization [facility] Address [address] [place] [address] Phone Care Team Providers Care Carbon Printer Name Role Phone Truong Colon MD Primary Care Provider +1- [phone] Encounter Details Date Type Department Care Team (Late Contact Info) Description 04/14/2022 Documentation Only [facility] [address] [place] [address] Eligio Meza MD [address] [place] [address] [place] [address] Social History Tobacco Use [...] [facility] [address] [place] [address] Romero Jimenez MD [address] [place] [address] [place] [address] documented as of this encounter Visit Diagnoses Not on filedocumented in this encounter Care Teams Carbon Printer Relationship Specialty Start Date End Date Truong Colon MD [address] [place] [address] PCP - General Internal Medicine 03/06/23 documented as of this encounter
--- OUTSIDE RECORDS SUMMARY | 2025-02-17 13:11 | XMS_ITS | Encounter Summary ---
Author Organization [facility] Address [address] [place] [address] Phone Care Team Providers Care Water Mechanic Name Role Phone Truong Colon MD Primary Care Provider +1- [phone] Encounter Details Date Type Department Care Team (Late Contact Info) Description 06/03/2024 Documentation Only [facility] [address] [place] [address] Kylie Gabriel [address] [place] [address] Social History Tobacco Use Types [...] Transplant Services Of [address] [place] [address] Romero Jimenez MD [address] [place] [address] [place] [address] documented as of this encounter Visit Diagnoses Not on filedocumented in this encounter Care Teams Water Mechanic Relationship Specialty Start Date End Date Truong Colon MD [address] [place] [address] PCP - General Internal Medicine 03/06/23 documented as of this encounter
--- OUTSIDE RECORDS SUMMARY | 2025-02-17 13:12 | XMS_ITS | Clinical Summary ---
Author Organization [facility], Address [address] [place] [address] [place] [address] Phone Care Team Providers Care Supervisor Grove Name Role Phone Truong Colon MD Primary Care Provider +1- [phone] Allergies Active Allergy Reactions Criticality Noted Date [...] Encounters Date Type Department Care Team Description 01/23/2025 Orders Only [facility], [address] [place] [address] Kylie Gabriel Anemia in chronic kidney disease; Stage 3b chronic kidney disease (HCC); Iron deficiency anemia, not otherwise specified 12/26/2024 Orders Only [facility] [address] [place] [address] Kylie Gabriel Anemia in chronic kidney disease; Stage 3b chronic kidney disease (HCC); Iron deficiency anemia, not otherwise specified 12/02/2024 1:40 PM EDT Office Visit [facility] [address] [place] [address] Romero Jimenez MD Stage 3b chronic kidney disease (HCC) (Primary Dx) 11/28/2024 Orders Only [facility] [address] [place] [address] HarveyKylie Anemia in chronic kidney disease; Stage 3b [...] Visit [facility], [address] [place] [address] Romero Jimenez MD [address] [facility] [place] [address] Health Maintenance Due Date Last Done Comments [...] Most Recently Relevant to Health Maintenance Insurance [facility] One Care Dual SNP ([id number]) Care Teams Supervisor Grove Relationship Specialty Start Date End Date Truong Colon MD [address] [place] [id number] PCP - General Internal Medicine 03/06/23
--- OUTSIDE RECORDS SUMMARY | 2025-02-17 13:12 | XMS_ITS | Encounter Summary ---
Author Organization [facility] Address [address] [place] [address] Phone Care Team Providers Care Bridal Sales Consultant Name Role Phone Truong Colon MD Primary Care Provider +1- [phone] Encounter Details Date Type Department Care Team (Late Contact Info) Description 01/14/2024 Documentation Only [facility] [address] [place] [address] [place] [address] [place] [address] Social History Tobacco Use Types Packs/Day [...] Visit [facility] [address] [place] [address] Romero Jimenez MD [address] [facility] [place] [address] documented as of this encounter Visit Diagnoses Not on filedocumented in this encounter Care Teams Bridal Sales Consultant Relationship Specialty Start Date End Date Truong Colon MD [address] [place] [address] PCP - General Internal Medicine 03/06/23 documented as of this encounter
--- OUTSIDE RECORDS SUMMARY | 2025-02-17 13:12 | XMS_ITS | Encounter Summary ---
Author Organization [facility] Address [address] [place] [address] Phone Care Team Providers Care Hospice Volunteer Name Role Phone Truong Colon MD Primary Care Provider +1- [phone] Encounter Details Date Type Department Care Team (Late Contact Info) Description 10/26/2023 Documentation Only [facility] [address] [place] [address] Kylie Gabriel [address] [place] [address] Social History Tobacco Use Types [...] [facility] [address] [place] [address] Romero Jimenez MD [address] [place] [address] [place] [address] documented as of this encounter Visit Diagnoses Not on filedocumented in this encounter Care Teams Hospice Volunteer Relationship Specialty Start Date End Date Truong Colon MD [address] [place] [address] PCP - General Internal Medicine 03/06/23 documented as of this encounter
--- OUTSIDE RECORDS SUMMARY | 2025-02-17 13:12 | XMS_ITS | Encounter Summary ---
Author Organization [facility] [place] [address] Care Team Providers Care Finance Controller Name Role Phone Truong Colon MD Primary Care Provider +1 [phone] Encounter Details Date Type Department Care Team (Late Contact Info) Description 10/22/2024 Lab Requisition [facility] - Main Lab 299 [facility] [place] [address] Ally Castañeda MD [address] [place], [place] [id number] Essential (primary) hypertension; Anemia, unspecified Social History [...] Visit [facility] Hematology Oncology [address] [place] [address] Jennifer Ca MD [address] [place] [address] documented as of this encounter [...] LAB CHEMISTRY METHOD 10/22/2024 9:41 AM EDT [facility] Blood Venous blood specimen / Unknown Venipuncture / Unknown 10/22/2024 5:26 AM EDT 10/22/2024 8:36 AM EDT us Ally Castañeda MD LAB BLOOD ORDERABLES Final Resul t [facility] [address] [place] [address], * (ABNORMAL) Basic metabolic panel (10/22/2024 5:26 AM EDT) Pathologist [facility] Sodium 140 133 - 145 mmol/L LAB CHEMISTRY METHOD 10/22/2024 9:41 AM EDT [facility] Potassium 5.5 3.5 - 5.5 mmol/L LAB CHEMISTRY METHOD 10/22/2024 9:41 AM EDT [facility] Chloride 107 96 - 110 mmol/L LAB CHEMISTRY METHOD 10/22/2024 9:41 AM EDT [facility] CO2 30 21 - 32 mmol/L LAB CHEMISTRY METHOD 10/22/2024 9:41 AM EDT [facility] Anion Gap 3 3 - 11 LAB CHEMISTRY METHOD 10/22/2024 9:41 AM EDT [facility] Glucose 69(L) 70 - 100 mg/dL LAB CHEMISTRY METHOD 10/22/2024 9:41 AM EDT [facility] BUN 21 5 - 25 mg/dL LAB CHEMISTRY METHOD 10/22/2024 9:41 AM EDT [facility] Creatinine 0.90 0.50 - 1.10 mg/dL LAB CHEMISTRY METHOD 10/22/2024 9:41 AM EDT [facility] eGFR 64 >=60 mL/min/1. 73m2 LAB CHEMISTRY METHOD 10/22/2024 9:41 AM EDT [facility] Comment:Calculation based on the Chronic Kidney Disease Epidemiology Collaboration (CKD-EPI) equation refit without adjustment for race. BUN/Creatinine Ratio 23.3 LAB CHEMISTRY METHOD 10/22/2024 9:41 AM [facility] Calcium 9.0 8.5 - 10.5 mg/dL LAB CHEMISTRY METHOD 10/22/2024 9:41 AM [facility] Blood Venous blood specimen / Unknown Venipuncture / Unknown 10/22/2024 5:26 AM EDT 10/22/2024 8:36 AM EDT us Ally Castañeda MD LAB BLOOD ORDERABLES Final Resul t [facility] [address] [place] [address], * (ABNORMAL) Complete blood count (10/22/2024 5:26 AM EDT) WBC 5.7 4.8 - 10.8 K/mcL LAB HEMETOLOGY METHOD 10/22/2024 9:09 AM EDT [facility] RBC 3.20(L) 3.80 - 4.80 M/mcL LAB HEMETOLOGY METHOD 10/22/2024 9:09 AM [facility] Hemoglobin 8.6(L) 11.5 - 16.0 g/dL LAB HEMETOLOGY METHOD 10/22/2024 9:09 AM [facility] Hematocrit 28.7(L) 35.0 - 47.0 % LAB HEMETOLOGY METHOD 10/22/2024 9:09 AM [facility] MCV 90.8 79.0 - 98.0 FL LAB HEMETOLOGY METHOD 10/22/2024 9:09 AM [facility] MCH 27.2 27.0 - 32.0 pcg LAB HEMETOLOGY METHOD 10/22/2024 9:09 AM [facility] MCHC 30.0(L) 32.0 - 37.0 g/dL LAB HEMETOLOGY METHOD 10/22/2024 9:09 AM [facility] RDW 13.4 11.0 - 15.0 % LAB HEMETOLOGY METHOD 10/22/2024 9:09 AM [facility] Platelets 383 130 - 400 K/mcL LAB HEMETOLOGY METHOD 10/22/2024 9:09 AM [facility] MPV 10.0 7.0 - 11.0 FL LAB HEMETOLOGY METHOD 10/22/2024 9:09 AM [facility] NRBC 0.0 <1.0 % LAB HEMETOLOGY METHOD 10/22/2024 9:09 AM [facility] NRBC Absolute 0.00 <0.10 K/mcL LAB HEMETOLOGY METHOD 10/22/2024 9:09 AM [facility] Blood Venous blood specimen / Unknown Venipuncture / Unknown 10/22/2024 5:26 AM EDT 10/22/2024 8:36 AM EDT Ally Castañeda MD LAB BLOOD ORDERABLES Final Resul t [facility] [address] [place] [address], documented in this encounter Visit Diagnoses Diagnosis Essential (primary) hypertension Unspecified essential hypertension Anemia, unspecified documented in this encounter Care Teams Finance Controller Relationship Specialty Start Date End Date Truong Colon MD [address] [place] [address] Dr [address] [place], [place] PCP - General 05/19/22 documented as of this encounter
--- OUTSIDE RECORDS SUMMARY | 2025-02-17 13:12 | XMS_ITS | Encounter Summary ---
Author Organization [facility] [place] [address] Care Team Providers Care Plastic Tool Maker Name Role Phone Truong Colon MD Primary Care Provider +1 [phone] Encounter Details Date Type Department Care Team (Late st Contact Info) Description 10/10/2024 Lab Requisition [facility] - Main Lab 299 [facility] [place] [id number] Ally Castañeda MD [address] [place] [address] Malignant neoplasm of unspecified site of unspecified female breast ([facility]/HCC V24, [facility] V28); Hypothyroidism, unspecified; Vitamin D deficiency, [...] [facility] Hematology Oncology [address] [place] [phone] Jennifer Ca MD [address] [place] [phone] documented as of this encounter Procedures Procedure Name Priority Date/Time Associated Diagnosis Comments THYROID STIMULATING HORMONE WITH REFLEX TO FREE T4 AND FREE T3 Routine 10/10/2024 5:37 AM EDT Malignant neoplasm of unspecified site of unspecified female breast ([facility]/HCC V24, [facility]/HCC V28) Hypothyroidism, unspecified Vitamin D deficiency, unspecified Vitamin B12 deficiency anemia, unspecified Spinal stenosis, site unspecified Chronic kidney disease, stage 3 unspecified ([facility]/HCC V24, [facility]/HCC V28) VITAMIN D 25 HYDROXY Routine 10/10/2024 5:37 AM EDT Malignant neoplasm of unspecified site of unspecified female breast ([facility]/HCC V24, CMS/HCC V28) Hypothyroidism, unspecified Vitamin D [...] site of unspecified female breast (CMS/HCC V24, [facility]/HCC V28) Hypothyroidism, unspecified Vitamin D deficiency, unspecified Vitamin B12 deficiency anemia, unspecified Spinal stenosis, site unspecified Chronic kidney disease, stage 3 unspecified (CMS/HCC V24, CMS/HCC V28) VITAMIN B12 Routine 10/10/2024 5:37 AM EDT Malignant neoplasm of unspecified site of unspecified female breast ([facility] V24, [facility] V28) Hypothyroidism, unspecified Vitamin D deficiency, unspecified Vitamin B12 deficiency anemia, unspecified Spinal stenosis, site unspecified Chronic kidney disease, stage 3 unspecified ([facility] V24, [facility] V28) COMPREHENSIVE METABOLIC PANEL Routine 10/10/2024 5:37 AM EDT Malignant neoplasm of unspecified site of unspecified female breast ([facility] V24, [facility] V28) Hypothyroidism, unspecified Vitamin D deficiency, unspecified Vitamin B12 deficiency anemia, unspecified Spinal stenosis, site unspecified Chronic kidney disease, stage 3 unspecified ([facility] V24, [facility] V28) documented in this encounter Results * Vitamin D 25 hydroxy (10/10/2024 5:37 AM EDT) Vit D, 25-Hydroxy 52.0 30.0 - 80.0 ng/mL LAB CHEMISTRY METHOD 10/10/2024 1:[address] [facility] Blood Venous blood specimen / Unknown Venipuncture / Unknown 10/10/2024 5:37 AM EDT 10/10/2024 9:30 AM EDT us Ally Castañeda MD LAB BLOOD ORDERABLES Final Resul t [facility] [address] [place] [address], [place] [phone] * Folate (10/10/2024 5:37 AM EDT) Folate 12.9 2.8 - 17.0 ng/ml LAB CHEMISTRY METHOD 10/10/2024 11:[address] [facility] Blood Venous blood specimen / Unknown Venipuncture / Unknown 10/10/2024 5:37 AM EDT 10/10/2024 9:30 AM EDT us Ally Castañeda MD LAB BLOOD ORDERABLES Final Resul t Performing Organization Address [facility]/ZIP Co de Phone Number [facility] [address] [place] [address], [place] [phone] * Vitamin B12 (10/10/2024 5:37 AM EDT) Vitamin B-12 371 250 - 900 pcg/mL LAB CHEMISTRY METHOD 10/10/2024 11:[address] [facility] Blood Venous blood specimen / Unknown Venipuncture / Unknown 10/10/2024 5:37 AM EDT 10/10/2024 9:30 AM EDT us Ally Castañeda MD LAB BLOOD ORDERABLES Final Resul t Performing Organization Address [facility] de Phone Number [facility] [address] [place] [address], * Thyroid stimulating hormone with reflex to free t4 and free t3 (10/10/2024 5:37 AM EDT) Pathologist [facility] TSH 2.96 0.40 - 4.00 mcIU/mL LAB CHEMISTRY METHOD 10/10/2024 1:[address] [facility] Blood Venous blood specimen / Unknown Venipuncture / Unknown 10/10/2024 5:37 AM EDT 10/10/2024 9:30 AM EDT us Ally Castañeda MD LAB BLOOD ORDERABLES Final Resul t Performing Organization Address [facility]/ZIP Co de Phone Number [facility] [address] [place] [address], [place] [phone] * (ABNORMAL) Comprehensive metabolic panel (10/10/2024 5:37 AM EDT) Sodium 130(L) 133 - 145 mmol/L LAB CHEMISTRY METHOD 10/10/2024 11:[address] [facility] Potassium 4.9 3.5 - 5.5 mmol/L LAB CHEMISTRY METHOD 10/10/2024 11:35 AM [facility] Chloride 97 96 - 110 mmol/L LAB CHEMISTRY METHOD 10/10/2024 11:35 AM [facility] CO2 28 21 - 32 mmol/L LAB CHEMISTRY METHOD 10/10/2024 11:35 AM [facility] Anion Gap 5 3 - 11 LAB CHEMISTRY METHOD 10/10/2024 11:35 AM [facility] Glucose 82 70 - 100 mg/dL LAB CHEMISTRY METHOD 10/10/2024 11:35 AM [facility] BUN 37(H) 5 - 25 mg/dL LAB CHEMISTRY METHOD 10/10/2024 11:35 AM [facility] Creatinine 1.16(H) 0.50 - 1.10 mg/dL LAB CHEMISTRY METHOD 10/10/2024 11:35 AM [facility] eGFR 47(L) >=60 mL/min/1. 73m2 LAB CHEMISTRY METHOD 10/10/2024 11:35 AM [facility] Comment:Calculation based on the Chronic Kidney Disease Epidemiology Collaboration (CKD-EPI) equation refit without adjustment for race. BUN/Creatinine Ratio 31.9 LAB CHEMISTRY METHOD 10/10/2024 11:35 AM [facility] Calcium 8.9 8.5 - 10.5 mg/dL LAB CHEMISTRY METHOD 10/10/2024 11:35 AM [facility] AST (SGOT) 42 10 - 42 unit/L LAB CHEMISTRY METHOD 10/10/2024 11:35 AM [facility] ALT (SGPT) 48 10 - 60 unit/L LAB CHEMISTRY METHOD 10/10/2024 11:35 AM [facility] Alkaline Phosphatase 98 42 - 121 unit/L LAB CHEMISTRY METHOD 10/10/2024 11:35 AM [facility] Total Protein 6.3 6.0 - 8.0 g/dL LAB CHEMISTRY METHOD 10/10/2024 11:[address] [facility] Albumin 2.3(L) 3.2 - 5.0 g/dL LAB CHEMISTRY METHOD 10/10/2024 11:[address] [facility] Total Bilirubin 0.4 0.0 - 1.4 mg/dL LAB CHEMISTRY METHOD 10/10/2024 11:[address] [facility] Blood Venous blood specimen / Unknown Venipuncture / Unknown 10/10/2024 5:37 AM EDT 10/10/2024 9:30 AM EDT Ally Castañeda MD LAB BLOOD ORDERABLES Final Resul t [facility] [address] [place] [address], [place] [phone] * (ABNORMAL) Complete blood count (10/10/2024 5:37 AM EDT) WBC 9.2 4.8 - 10.8 K/mcL LAB HEMETOLOGY METHOD 10/10/2024 10:[address] [facility] RBC 3.10(L) 3.80 - 4.80 M/mcL LAB HEMETOLOGY METHOD 10/10/2024 10:[address] [facility] Hemoglobin 8.8(L) 11.5 - 16.0 g/dL LAB HEMETOLOGY METHOD 10/10/2024 10:[address] [facility] Hematocrit 28.0(L) 35.0 - 47.0 % LAB HEMETOLOGY METHOD 10/10/2024 10:[address] [facility] MCV 89.7 79.0 - 98.0 FL LAB HEMETOLOGY METHOD 10/10/2024 10:[address] [facility] MCH 28.2 27.0 - 32.0 pcg LAB HEMETOLOGY METHOD 10/10/2024 10:[address] [facility] MCHC 31.4(L) 32.0 - 37.0 g/dL LAB HEMETOLOGY METHOD 10/10/2024 10:[address] [facility] RDW 13.2 11.0 - 15.0 % LAB HEMETOLOGY METHOD 10/10/2024 10:[address] [facility] Platelets 261 130 - 400 K/mcL LAB HEMETOLOGY METHOD 10/10/2024 10:[address] [facility] MPV 11.0 7.0 - 11.0 FL LAB HEMETOLOGY METHOD 10/10/2024 10:[address] [facility] NRBC 0.0 <1.0 % LAB HEMETOLOGY METHOD 10/10/2024 10:[address] [facility] NRBC Absolute 0.00 <0.10 K/mcL LAB HEMETOLOGY METHOD 10/10/2024 10:[address] [facility] Blood Venous blood specimen / Unknown Venipuncture / Unknown 10/10/2024 5:37 AM EDT 10/10/2024 9:30 AM EDT us Ally Castañeda MD LAB BLOOD ORDERABLES Final Resul t [facility] [address] [place] [address], documented in this encounter Visit Diagnoses Diagnosis Malignant neoplasm of unspecified site of unspecified female breast (CMS/HCC V24, CMS/HCC V28) Hypothyroidism, unspecified Vitamin D deficiency, unspecified Vitamin B12 deficiency anemia, unspecified Spinal stenosis, site unspecified Chronic kidney disease, stage 3 unspecified (CMS/HCC V24, CMS/HCC V28) documented in this encounter Care Teams Plastic Tool Maker Relationship Specialty Start Date End Date Truong Colon MD [address] [place] PCP - General 05/19/22 documented as of this encounter
--- OUTSIDE RECORDS SUMMARY | 2025-02-17 13:12 | XMS_ITS | Encounter Summary ---
Author Organization [facility] Address [address] [place] [address] Phone Care Team Providers Care Personnel Scheduler Name Role Phone Truong Colon MD Primary Care Provider +1- [phone] Encounter Details Date Type Department Care Team (Late Contact Info) Description 01/31/2024 Documentation Only [facility] [address] [place] [address] Kylie Gabriel [address] [place] [address] Social History Tobacco Use Types [...] [facility] [address] [place] [address] Romero Jimenez MD [address] [place] [address] [place] [address] documented as of this encounter Visit Diagnoses Not on filedocumented in this encounter Care Teams Personnel Scheduler Relationship Specialty Start Date End Date Truong Colon MD [address] [place] [address] PCP - General Internal Medicine 03/06/23 documented as of this encounter
--- OUTSIDE RECORDS SUMMARY | 2025-02-17 13:12 | XMS_ITS | Encounter Summary ---
Author Organization [facility] Address [address] [place] [address] Phone Care Team Providers Care Oil Well Cable Tool Operator Name Role Phone Truong Colon MD Primary Care Provider +1- [phone] Encounter Details Date Type Department Care Team (Late Contact Info) Description 07/02/2024 Documentation Only [facility] [address] [place] [address] [place] [address] [place] [address] Social History Tobacco Use Types Packs/Day [...] [facility] [address] [place] [address] Romero Jimenez MD [address] [place] [address] [place] [address] documented as of this encounter Visit Diagnoses Not on filedocumented in this encounter Care Teams Oil Well Cable Tool Operator Relationship Specialty Start Date End Date Truong Colon MD [address] [place] [address] PCP - General Internal Medicine 03/06/23 documented as of this encounter
--- OUTSIDE RECORDS SUMMARY | 2025-02-17 13:12 | XMS_ITS | Encounter Summary ---
Author Organization [facility] [place], Address [address] [place] [address] Phone Care Team Providers Care Manager Eligibility Name Role Phone Truong Colon MD Primary Care Provider +1- [phone] Encounter Details Date Type Department Care Team (Late Contact Info) Description 01/21/2024 Orders Only [facility] [address] [place] [address] Dimitris Suarez PA [address] [place] [address] [place] [address] Stage 3a chronic kidney disease [...] [facility] [address] [place] [address] Romero Jimenez MD [address] [place] [address] [place] [address] documented as of this encounter Visit Diagnoses Diagnosis Stage 3a chronic kidney disease (HCC) Essential hypertension Peripheral vascular disease (HCC) Peripheral vascular disease Renal osteodystrophy documented in this encounter Care Teams Manager Eligibility Relationship Specialty Start Date End Date Truong Colon MD [address] [place] [address] PCP - General Internal Medicine 03/06/23 documented as of this encounter
--- OUTSIDE RECORDS SUMMARY | 2025-02-17 13:12 | XMS_ITS | Encounter Summary ---
Author Organization [facility] [place] [address] Care Team Providers Care Technician Helper Instrument Name Role Phone Truong Colon MD Primary Care Provider [phone] Encounter Details Date Type Department Care Team (Late Contact Info) Description 10/16/2024 Lab Requisition [facility] - Main Lab [address] [facility] [place] [address] Ally Castañeda MD [address] [place] [address] Spinal stenosis, site unspecified; Chronic [...] Description 11/04/2025 10:30 AM EDT Office Visit [facility] Hematology Oncology [address] [place] [address] Jennifer Ca MD [address] [place] [address] [phone] (work) documented as of this encounter Procedures [...] mmol/L LAB CHEMISTRY METHOD 10/17/2024 12:13 PM [facility] Potassium 5.6(H) 3.5 - 5.5 mmol/L LAB CHEMISTRY METHOD 10/17/2024 12:13 PM [facility] Chloride 103 96 - 110 mmol/L LAB CHEMISTRY METHOD 10/17/2024 12:13 PM [facility] CO2 28 21 - 32 mmol/L LAB CHEMISTRY METHOD 10/17/2024 12:13 PM [facility] Anion Gap 5 3 - 11 LAB CHEMISTRY METHOD 10/17/2024 12:13 PM [facility] Glucose 77 70 - 100 mg/dL LAB CHEMISTRY METHOD 10/17/2024 12:13 PM [facility] BUN 23 5 - 25 mg/dL LAB CHEMISTRY METHOD 10/17/2024 12:13 PM [facility] Creatinine 1.02 0.50 - 1.10 mg/dL LAB CHEMISTRY METHOD 10/17/2024 12:13 PM [facility] eGFR 55(L) >=60 mL/min/1. 73m2 LAB CHEMISTRY METHOD 10/17/2024 12:13 PM [facility] Comment:Calculation based on the Chronic Kidney Disease Epidemiology Collaboration (CKD-EPI) equation refit without adjustment for race. BUN/Creatinine Ratio 22.5 LAB CHEMISTRY METHOD 10/17/2024 12:13 PM T [facility] Calcium 8.9 8.5 - 10.5 mg/dL LAB CHEMISTRY METHOD 10/17/2024 12:13 PM [facility] Blood Venous blood specimen / Unknown Venipuncture / Unknown 10/17/2024 7:36 AM EDT 10/17/2024 11:30 AM EDT us Ally Castañeda MD LAB BLOOD ORDERABLES Final Resul t [facility] [address] [place] [address], [place] [phone] * (ABNORMAL) Complete blood count (10/17/2024 7:36 AM EDT) WBC 6.5 4.8 - 10.8 K/mcL LAB HEMETOLOGY METHOD 10/17/2024 12:00 PM [facility] RBC 3.40(L) 3.80 - 4.80 M/mcL LAB HEMETOLOGY METHOD 10/17/2024 12:00 PM [facility] Hemoglobin 9.2(L) 11.5 - 16.0 g/dL LAB HEMETOLOGY METHOD 10/17/2024 12:00 PM [facility] Hematocrit 30.9(L) 35.0 - 47.0 % LAB HEMETOLOGY METHOD 10/17/2024 12:00 PM [facility] MCV 91.2 79.0 - 98.0 FL LAB HEMETOLOGY METHOD 10/17/2024 12:00 PM [facility] MCH 27.1 27.0 - 32.0 pcg LAB HEMETOLOGY METHOD 10/17/2024 12:00 PM [facility] MCHC 29.8(L) 32.0 - 37.0 g/dL LAB HEMETOLOGY METHOD 10/17/2024 12:00 PM EDT [facility] RDW 13.2 11.0 - 15.0 % LAB HEMETOLOGY METHOD 10/17/2024 12:00 PM EDT [facility] Platelets 495(H) 130 - 400 K/mcL LAB HEMETOLOGY METHOD 10/17/2024 12:00 PM EDT [facility] MPV 10.0 7.0 - 11.0 FL LAB HEMETOLOGY METHOD 10/17/2024 12:00 PM EDT [facility] NRBC 0.0 <1.0 % LAB HEMETOLOGY METHOD 10/17/2024 12:00 PM EDT [facility] NRBC Absolute 0.00 <0.10 K/mcL LAB HEMETOLOGY METHOD 10/17/2024 12:00 PM EDT [facility] Blood Venous blood specimen / Unknown Venipuncture / Unknown 10/17/2024 7:36 AM EDT 10/17/2024 11:30 AM EDT us Ally Castañeda MD LAB BLOOD ORDERABLES Final Resul t [facility] [address] [place] [address], documented in this encounter Visit Diagnoses Diagnosis Spinal stenosis, site unspecified Chronic kidney disease, unspecified documented in this encounter Care Teams Technician Helper Instrument Relationship Specialty Start Date End Date Truong Colon MD [address] [place] [address] Dr Eric Christian [place] PCP - General 05/19/22 documented as of this encounter
--- OUTSIDE RECORDS SUMMARY | 2025-02-17 13:12 | XMS_ITS | Clinical Summary ---
Author Organization [facility] Address [address] [place] [address] [address] [place] [address] Phone Care Team Providers Care Education Program Associate Name Role Phone Dimple Vergara MD Primary [...] file Medical Devices Not on file Insurance [facility] MEDICARE REPLACEMENT [facility] MED[facility] REPLACEMENT [facility] MEDICARE [facility]PLACEMENT [facility] MED[facility] REPLACEMENT [facility] MED[facility] REPLACEMENT [facility] MED[facility]PLACEMENT [facility] MEDIC[facility] REPLACEMENT [facility] MEDICARE [facility]PLACEMENT [facility] MEDICARE REPLACEMENT Care Teams Education Program Associate Relationship Specialty Start Date End Date Dimple Vergara MD [address] [place] [address] PCP - General 11/13/13 Additional Source Comments The information contained in this document represents components of the legal health record. It is not the complete legal health record.[facility]
--- OUTSIDE RECORDS SUMMARY | 2025-02-17 13:12 | XMS_ITS | Encounter Summary ---
Author Organization [facility] [place] [address] Care Team Providers Care Motor Vehicle Licence Examiner Name Role Phone Truong Colon MD Primary Care Provider Encounter Details Date Type Department Care Team (Late Contact Info) Description 10/22/2024 Lab Requisition [facility] - Main Lab [address] [facility] [place] [address] Ally Castañeda MD [address] [place] [address] Spinal stenosis, site unspecified; Chronic [...] Visit [facility] Hematology Oncology [address] [place] [address] Jennifer Ca MD [address] [place] [address] [phone] (work) documented as of this encounter Procedures [...] mmol/L LAB CHEMISTRY METHOD 10/23/2024 11:28 AM [facility] Potassium 4.6 3.5 - 5.5 mmol/L LAB CHEMISTRY METHOD 10/23/2024 11:28 AM [facility] Chloride 107 96 - 110 mmol/L LAB CHEMISTRY METHOD 10/23/2024 11:28 AM [facility] CO2 29 21 - 32 mmol/L LAB CHEMISTRY METHOD 10/23/2024 11:28 AM [facility] Anion Gap 4 3 - 11 LAB CHEMISTRY METHOD 10/23/2024 11:28 AM [facility] Glucose 65(L) 70 - 100 mg/dL LAB CHEMISTRY METHOD 10/23/2024 11:28 AM [facility] BUN 17 5 - 25 mg/dL LAB CHEMISTRY METHOD 10/23/2024 11:28 AM [facility] Creatinine 0.87 0.50 - 1.10 mg/dL LAB CHEMISTRY METHOD 10/23/2024 11:28 AM [facility] eGFR 67 >=60 mL/min/1. 73m2 LAB CHEMISTRY METHOD 10/23/2024 11:28 AM [facility] Comment:Calculation based on the Chronic Kidney Disease Epidemiology Collaboration (CKD-EPI) equation refit without adjustment for race. BUN/Creatinine Ratio 19.5 LAB CHEMISTRY METHOD 10/23/2024 11:28 AM EDT [facility] Calcium 8.7 8.5 - 10.5 mg/dL LAB CHEMISTRY METHOD 10/23/2024 11:28 AM [facility] Blood Venous blood specimen / Unknown Venipuncture / Unknown 10/23/2024 5:09 AM EDT 10/23/2024 10:13 AM EDT us Ally Castañeda MD LAB BLOOD ORDERABLES Final Resul t [facility] [address] [place] [address], * (ABNORMAL) Complete blood count (10/23/2024 5:09 AM EDT) WBC 4.8 4.8 - 10.8 K/mcL LAB HEMETOLOGY METHOD 10/23/2024 10:31 AM [facility] RBC 3.10(L) 3.80 - 4.80 M/mcL LAB HEMETOLOGY METHOD 10/23/2024 10:31 AM [facility] Hemoglobin 8.3(L) 11.5 - 16.0 g/dL LAB HEMETOLOGY METHOD 10/23/2024 10:31 AM [facility] Hematocrit 27.9(L) 35.0 - 47.0 % LAB HEMETOLOGY METHOD 10/23/2024 10:31 AM [facility] MCV 90.3 79.0 - 98.0 FL LAB HEMETOLOGY METHOD 10/23/2024 10:31 AM [facility] MCH 26.9(L) 27.0 - 32.0 pcg LAB HEMETOLOGY METHOD 10/23/2024 10:31 AM [facility] MCHC 29.7(L) 32.0 - 37.0 g/dL LAB HEMETOLOGY METHOD 10/23/2024 10:31 AM EDT [facility] RDW 13.7 11.0 - 15.0 % LAB HEMETOLOGY METHOD 10/23/2024 10:31 AM EDT [facility] Platelets 342 130 - 400 K/mcL LAB HEMETOLOGY METHOD 10/23/2024 10:31 AM EDT [facility] MPV 10.0 7.0 - 11.0 FL LAB HEMETOLOGY METHOD 10/23/2024 10:31 AM EDT [facility] NRBC 0.0 <1.0 % LAB HEMETOLOGY METHOD 10/23/2024 10:31 AM EDT [facility] NRBC Absolute 0.00 <0.10 K/mcL LAB HEMETOLOGY METHOD 10/23/2024 10:31 AM EDT [facility] Blood Venous blood specimen / Unknown Venipuncture / Unknown 10/23/2024 5:09 AM EDT 10/23/2024 10:13 AM EDT us Ally Castañeda MD LAB BLOOD ORDERABLES Final Resul t [facility] [address] [place] [address], documented in this encounter Visit Diagnoses Diagnosis Spinal stenosis, site unspecified Chronic kidney disease, unspecified documented in this encounter Care Teams Motor Vehicle Licence Examiner Relationship Specialty Start Date End Date Truong Colon MD [address] [place] [address] Dr [address] JA[address] [place] PCP - General 05/19/22 documented as of this encounter
--- OUTSIDE RECORDS SUMMARY | 2025-02-17 13:12 | XMS_ITS | Encounter Summary ---
Author Organization [facility] Address [address] [place] [address] Phone Care Team Providers Care Repair Coil Winder Name Role Phone Truong Colon MD Primary Care Provider +1- [phone] Encounter Details Date Type Department Care Team (Late Contact Info) Description 07/11/2024 Orders Only [facility] [address] [place] [address] Kylie Gabriel [address] [place] [address] Anemia in chronic kidney disease; [...] Visit [facility] [address] [place] [address] Romero Jimenez MD [address] [facility] [place] [address] documented as of this encounter Visit Diagnoses Diagnosis Anemia in chronic kidney disease Stage 3b chronic kidney disease (HCC) Iron deficiency anemia, not otherwise specified documented in this encounter Care Teams Repair Coil Winder Relationship Specialty Start Date End Date Truong Colon MD [address] [place] [address] PCP - General Internal Medicine 03/06/23 documented as of this encounter
--- OUTSIDE RECORDS SUMMARY | 2025-02-17 13:12 | XMS_ITS | Encounter Summary ---
Author Organization [facility] Address [address] [place] [address] Phone Care Team Providers Care Professor Of Vegetable Science Name Role Phone Truong Colon MD Primary Care Provider +1- [phone] Encounter Details Date Type Department Care Team ([facility] Contact Info) Description 06/13/2024 Orders Only [facility] [address] [place] [address] Kylie Gabriel [address] [place] [address] Anemia in chronic kidney disease; [...] Visit [facility] [address] [place] [place] [address] Romero Jimenez MD [address] [place] [address] documented as of this encounter Visit Diagnoses Diagnosis Anemia in chronic kidney disease Stage 3b chronic kidney disease (HCC) Iron deficiency anemia, not otherwise specified documented in this encounter Care Teams Professor Of Vegetable Science Relationship Specialty Start Date End Date Truong Colon MD [address] [place] [address] PCP - General Internal Medicine 03/06/23 documented as of this encounter
--- OUTSIDE RECORDS SUMMARY | 2025-02-17 13:12 | XMS_ITS | Encounter Summary ---
Author Organization [facility] Address [address] [place] [address] Phone Care Team Providers Care Beauty Therapist Name Role Phone Truong Colon MD Primary Care Provider +1- [phone] Encounter Details Date Type Department Care Team (Late Contact Info) Description 07/31/2024 Documentation Only [facility] [address] [place] [address] Kylie Gabriel [address] [place] [address] Social History Tobacco Use Types [...] [facility] [address] [place] [address] Romero Jimenez MD [address] [place] [address] [place] [address] documented as of this encounter Visit Diagnoses Not on filedocumented in this encounter Care Teams Beauty Therapist Relationship Specialty Start Date End Date Truong Colon MD [address] [place] [address] PCP - General Internal Medicine 03/06/23 documented as of this encounter
--- OUTSIDE RECORDS SUMMARY | 2025-02-17 13:12 | XMS_ITS | Encounter Summary ---
Author Organization [facility] Address [address] [place] [address] Phone Care Team Providers Care Horse Identifier Name Role Phone Truong Colon MD Primary Care Provider +1- [phone] Encounter Details Date Type Department Care Team (Late Contact Info) Description 01/23/2024 Documentation Only [facility] - [place] [address] [place] [address] Jasmin Dumont [address] [place] [address] Social History Tobacco Use Types Packs/Day [...] Visit [facility], [address] [place] [address] Romero Jimenez MD [address] [place] [address] documented as of this encounter Visit Diagnoses Not on filedocumented in this encounter Care Teams Horse Identifier Relationship Specialty Start Date End Date Truong Colon MD [address] [place] [address] PCP - General Internal Medicine 03/06/23 documented as of this encounter
--- OUTSIDE RECORDS SUMMARY | 2025-02-17 13:12 | XMS_ITS | Encounter Summary ---
Author Organization [facility] Address [address] [place] [address] Phone Care Team Providers Care Transfer Car Operator Name Role Phone Truong Colon MD Primary Care Provider +1- [phone] Encounter Details Date Type Department Care Team (Late Contact Info) Description 10/31/2024 Orders Only [facility] [address] [place] [address] Kylie Gabriel [address] [place] [address] Anemia in chronic kidney disease; [...] Visit [facility] [address] [place] [address] Romero Jimenez MD [address] [facility] [address] [place] [address] documented as of this encounter Visit Diagnoses Diagnosis Anemia in chronic kidney disease Stage 3b chronic kidney disease (HCC) Iron deficiency anemia, not otherwise specified documented in this encounter Care Teams Transfer Car Operator Relationship Specialty Start Date End Date Truong Colon MD [address] [place] [address] PCP - General Internal Medicine 03/06/23 documented as of this encounter
--- OUTSIDE RECORDS SUMMARY | 2025-02-17 13:13 | XMS_ITS ---
Author Organization [facility] [place], Address [address] [place] [address] [place] [address] Phone Care Team Providers Care Movable Bulkhead Installer Name Role Phone Truong Colon MD Primary Care Provider +1- [phone] Active Problems Problem Noted Date Diagnosed Date [...]
--- OUTSIDE RECORDS SUMMARY | 2025-02-17 13:13 | XMS_ITS | Encounter Summary ---
Author Organization [facility] [place] [address] Care Team Providers Care Order Picker Name Role Phone Truong Colon MD Primary Care Provider Encounter Details Date Type Department Care Team (Late Contact Info) Description 11/06/2024 Lab Requisition [facility] - Main Lab [address] [facility] [place] [address] Ally Castañeda MD [address] [place] [address] Spinal stenosis, site unspecified; Chronic [...] 11/04/2025 10:30 AM EDT Office Visit [facility] Hematology Oncology [address] [place] [address] Jennifer Ca MD [address] [place] [address] documented as of this encounter Visit Diagnoses Diagnosis Spinal stenosis, site unspecified Chronic kidney disease, unspecified documented in this encounter Care Teams Order Picker Relationship Specialty Start Date End Date Truong Colon MD [address] [place] [address] Dr [address] [place], [place] PCP - General 05/19/22 documented as of this encounter
--- OUTSIDE RECORDS SUMMARY | 2025-02-17 13:13 | XMS_ITS | Encounter Summary ---
Author Organization [facility] Address [address] [place] [address] Phone Care Team Providers Care Surgical Instrument Repair Specialist Name Role Phone Truong Colon MD Primary Care Provider +1- [phone] Encounter Details Date Type Department Care Team (Late Contact Info) Description 04/29/2024 Documentation Only [facility] [address] [place] [address] Britt Sol [address] [place] [address] Social History Tobacco [...] [facility] [address] [place] [address] Romero Jimenez MD [address] [place] [address] [place] [address] documented as of this encounter Visit Diagnoses Not on filedocumented in this encounter Care Teams Surgical Instrument Repair Specialist Relationship Specialty Start Date End Date Truong Colon MD [address] [place] [address] PCP - General Internal Medicine 03/06/23 documented as of this encounter
== END 2025-02-17 11:03 | disposition home or self-care (01) ==
LOC: HO.HVS 10:33
PROVIDERS: PCP Internal Medicine; Visit Provider Surgery Vascular Surgery
DX: I73.9 Peripheral vascular disease, unspecified (principal)
CPT/HCPCS: 99204

== ENCOUNTER → 2025-02-17 10:32 | Outpatient (BNVA) | payer OTHER, SELFPAY | PROVIDERS: PCP Internal Medicine; Visit Provider Surgery Vascular Surgery | DX: I73.9 Peripheral vascular disease, unspecified (principal); M79.604 Pain in right leg | CPT/HCPCS: 99202 ==

== ENCOUNTER 2025-02-18 13:50 | Outpatient (AMB) | payer OTHER, SELFPAY ==
--- OUTSIDE RECORDS SUMMARY | 2024-10-30 10:45 | XMS_ITS ---
Author Organization [facility] Address [address] [facility] [address] Care Team Providers Care Park Maintenance Technician Name Role Phone Isaiah DURAN, Truong Primary Care Provider UnaBoby Bermudez Unavailable [phone] Encounters Encounter Location Date Provider Diagnosis [facility] [address] [address] 10/30/2024 Boby Chapman Plan Of Treatment Next Appt Details Provider Name:Boby Chapman , 03/30/2025 01:30:00 PM, [address] [facility], [place] [address], [place], [address], Progress Notes * Tommie BLANCASOB:[birth year] (79 yo F)Acc No.[id number]:10/30/2024 Progress Note Patient: Jacinda NUNEZ Provider: Alex Chapman DPM :1945 A ge:79 Y S ex:Female Date:10/30/2024 Address:[address] [place] [address], [place], [place] Pcp:Truong Colon MD Subjective: * Chief Complaints: [...] 10/30/2024 Generated for Yovanny toussaint/Daniel on: 1 05:43 PM EDT
--- NOTE | 2025-02-18 13:54 | A.OFFVIS_ITS ---
Vital Signs 02/18/25 14:02 Height 5 ft 11 in Weight 226 lb 10.163 oz BMI 31.6 BP 132/80 Blood Pressure Location Lt brachial Position Sitting Pulse 50 Pulse Source Pulse Oximeter Pulse Oximetry (%) 99 Oxygen Delivery Method Room Air Intake Visit Reasons: follow up Intake Note: Patient presents for Fibromyalgia and right-sided back pain follow up. Software Quality Engineer Required: Yes Software Quality Engineer Language: Contract Administrative Assistant Services: Software Quality Engineer Present Software Quality Engineer Name: [id number] Information Interpreted: non-clinical & clinical Allergies Penicillins (PENICILLINS) Allergy (Intermediate, Verified 02/18/25 14:01) rash senna Allergy (Intermediate, Verified 02/18/25 14:01) rash Medication List - Last Reconciled 02/18/25 by Sravanthi Berger MD amlodipine 10 mg PO DAILY 90 days bisacodyl 5 mg PO BEDTIME 90 days calcitriol 1 mcg PO WE@1645 cane As directed - use when walking carvedilol 12.5 mg PO BID clindamycin HCl (Cleocin HCl) 300 mg PO Q8H 7 days [Commode As directed] [DISPOSABLE BED PADS Use as directed ONCE A DAY] [DISPOSABLE GLOVES - LARGE (1 box/month) Use as directed] docusate sodium (Colace) 100 mg PO BID doxycycline monohydrate 100 mg PO BID 10 days [FEMININE PADS As directed] gabapentin 300 mg PO BID 30 days levothyroxine 125 mcg PO DAILY@0600 [MEDICATED INCONTINENCE WIPES As directed] multivitamin 1 tab PO DAILY omeprazole 40 mg PO DAILY@0630 oxycodone 5 mg PO Q6H PRN prednisone 20 mg PO DAILY prednisone 20 mg PO DAILY 3 days [ROLLATOR As directed] [ROLLATOR As directed] sulfamethoxazole-trimethoprim 800-160 mg (Bactrim DS) 1 tab PO BID tizanidine 2 mg PO TID PRN HPI Comments Details: Patient is an 79-year-old female with hypertension, hypothyroidism, fibromyalgia and OA Interval History: Patient last seen 08/19/2024 - On Lyrica 50mg nightly - Patient stated that the injection did not help with her pain - Had a fall 1 week ago but scans have been normal - Had MRI of the lumbar spine 07/2024 which showed progression of her degenerative spondylolisthesis. - However, the pregabalin has been helpful. Does not make her sleepy - Increased lyrica 75mg nightly Today - On Lyrica 75mg nightly - Did not find this have much benefit - Still having widespread pain - Recent MRI showed lumbar compression fracture Rheumatologic History: Patient presented to this institution back in 2019. Was seen by Dermatology in June 2018 for a rash that developed in a photodistribution pattern. Rash developed approx 6 months prior to her Derm visit. Had a skin biopsy done and was started on a Prednisone taper which improved her symptoms. 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 She was previously on Plaquenil but self-discontinued. And has not restarted. Carries a diagnosis of Sjogren's on a background of positive SSA and sicca symptoms. Her main symptoms however have been osteoarthritis related. And since she never had any objective evidence of inflammatory arthritis or evidence of extraglandular Sjogren's the diagnosis was put into question. When she last saw Dr. Gutierrez Duke 02/01/2023 she was started on gabapentin and given a pain management referral for her sciatica. Unsure of when the gabapentin was stopped but at her follow-up visit in 07/11/2023 she was no longer on gabapentin. Likely self discontinued. They were again was no evidence of inflammatory arthritis and she had no evidence of sicca symptoms at that time. As of now she does not fully current diagnosis of Sjogren's. She mainly follows with Rheumatology for fibromyalgia and osteoarthritis. Current Rheumatology Medication(s): Pregabalin 75mg nightly [facility] Medical History (Updated 02/18/25 @ 16:13 by Sravanthi Berger MD) Osteoporosis Ambulates with cane Difficulty swallowing Osteoarthritis of right knee BPV (benign positional vertigo) Gait instability Cervicogenic headache Cervicalgia Vertigo Chronic kidney disease, stage III (moderate) Obesity (BMI 30-39.9) Gastritis Benign essential hypertension GERD without esophagitis Acquired hypothyroidism Constipation Lumbar spondylosis Post laminectomy syndrome Connective tissue disease Interstitial lung disease Osteopenia PAC (premature atrial contraction) Sjogrens syndrome Hypothyroid Breast cancer Raynauds disease SAMARA positive Surgical History Status post lumbar spine surgery for decompression of spinal cord History of video-assisted thoracoscopic surgery (VATS) (03/13/24) 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) Hx of colonoscopy Hx of tubal ligation H/O varicose vein stripping History of cataract surgery H/O lumpectomy Hx of cholecystectomy History of back surgery Family History Father Emphysema of lung Cancer Brother Emphysema of lung Mother Bone cancer Son PONV (postoperative nausea and vomiting) Other Arthritis Social History Household Members: Significant Other and Children Housing: Apartment Are you a primary healthcare representative to a significant other at home: No Do you presently have visiting nurse or other home services: No Alcohol intake: never Comment: pt reports this is her baseline pain Patient Tobacco Use Status: Never used Tobacco e-Cigarette/Vaping Use: Never Used Second Hand Smoke Exposure: No Advance Directives Date on File: 10/07/24 service: No Current occupational status: retired Cognitive needs: No Hearing needs: No Vision needs: Yes (Glasses) Review of Systems Narrative Review of Systems Constitutional: Denies fever, chills, weight loss ENT: Denies vision changes, eye pain or eye redness, dental caries, dry mouth GI: Denies nausea, vomiting, diarrhea, abdominal pain, change in BM Pulm: Denies SOB, SHARIF, hemoptysis, wheezing Cards: Denies chest pain, palpitations Skin: Denies Raynaud's, rash, nail changes, photosensitivity, GROUNDSKEEPER SUPERVISOR: Denies headaches, weakness, paresthesias, recurrent falls MSK: as per HPI All other systems reviewed and are unremarkable except noted above Physical Exam Exam Exam: Vital signs reviewed Physical Examination CONSTITUITIONAL Patient alert and cooperative. Well appearing and in no apparent painful distress MSK Hands * Right Hand: Able to make a fist. No swelling or tenderness to palpation of the MCPs, PIPs or DIPs. * Left Hand: Able to make a fist. No swelling or tenderness to palpation of the MCPs, PIPs or DIPs. * Herbedens nodes noted bilaterally Wrists * Right Wrist: Full ROM to flexion and extension. No swelling or TTP * Left Wrist: Full ROM to flexion and extension. No swelling or TTP Elbows * Right Elbow: Full ROM. No swelling or TTP. No TTP of the medial epicondyle. No TTP of the lateral epicondyle * Left Elbow: Full ROM. No swelling or TTP. No TTP of the medial epicondyle. No TTP of the lateral epicondyle Shoulders * Right shoulder: No swelling noted. No TTP of the AC joint. No TTP of the subacromial bursa. No TTP of the posterior shoulder * Left shoulder: No swelling noted. No TTP of the AC joint. No TTP of the subacromial bursa. No TTP of the posterior shoulder Knees * Right knee: Full ROM. No swelling noted. No TTP of the knee joint line. No TTP of pes anserine bursa * Left knee: Full ROM. No swelling noted. No TTP of the knee joint line. No TTP of pes anserine bursa. * Crepitations felt bilaterally Ankles * Right ankle: Good ankle dorsiflexion and plantar flexion. No swelling. No TTP of the ankle joint * Left ankle: Good ankle dorsiflexion and plantar flexion. No swelling. No TTP of the ankle joint Feet * Right foot: Negative squeeze test * Left foot: Negative squeeze test Tender points? * Tenderness to palpation of the bilateral trapezius, supraspinatus, anterior costochondral junctions, bilateral suboccipital muscle insertions SKIN No rashes Vital Signs: Last Vital Signs Pulse 50 02/18/25 14:02 BP 132/80 02/18/25 14:02 Pulse Ox 99 02/18/25 14:02 Oxygen Delivery Method Room Air 02/18/25 14:02 BMI result Body Mass Index 31.6 Results Reviewed Results Reviewed: Laboratory Tests 12/24/24 20:59 WBC 4.6 L RBC 3.96 L D Hgb 10.9 L Hct 33.7 L Plt Count 194 Sodium 139 Potassium 3.9 Chloride 104 Carbon Dioxide 27 BUN 26 H Creatinine 1.18 AST 21 ALT 13 Laboratory Tests 10/22/20 01/29/23 16:02 11:51 Rheumatoid Factor < 13.0 Cycl Citrul Peptide IgG <16 SS-A/Ro Antibody >8.0 POS A SS-B/La Antibody <1.0 NEG Sm (Em) Antibody <1.0 NEG SM/SENIOR MEDICAL TECHNOLOGIST IgG Antibody <1.0 NEG Complement C3 61 L Complement C4 12 L DEXA 04/2024 FINDINGS: The bone mineral density of the lumbar spine is 1.306 with a T-score of 1.0, and a Z-score of 1.7. The bone mineral density of the left total hip is 0.903 with a T-score of -0.8, and a Z-score of 0.4 The bone mineral density of the left femoral neck is 0.910 with a T-score of -0.9, and a Z-score of 0.5. FRACTURE RISK: The FRAX index suggests a risk of major osteoporotic fracture of 82%, and of hip fracture 1.6%. MRI L Spine 12/2024 Conclusion: 1. New acute/subacute mild T12 vertebral wedge compression fracture. No significant retropulsion 2. Interval right laminotomy at L2-L3 with overall improvement of the central canal stenosis. Residual narrowing of the subarticular recess and overall abrj-re-[id number] spinal canal stenosis 3. Stable postsurgical changes of posterior decompression at L3-L4 and L4-L5. Widely patent spinal canal. Mild to moderate L3-L4 and mild L4-L5 bilateral foraminal narrowing. Assessment & Plan Assessment & Plan (1) Osteoporosis: Code(s): M81.0 - Age-related osteoporosis without current pathological fracture Category: Medical Qualifiers: Osteoporosis type: age-related Presence of current pathological fracture: with current pathological fracture Encounter type: initial encounter Qualified Code(s): M80.00XA - Age-related osteoporosis with current pathological fracture, unspecified site, initial encounter for fracture Plan: #Osteoporosis Patient is a 79 year old female with new diagnosis of osteoporosis based on new lumbar compression fracture. This is new compared to her MRI done 07/2024 GFR > 35 Start IV Reclast Plan - IV Reclast 5mg yearly - Check CMP and Vit D prior to infusion - Vit D supplementation (2) Fibromyalgia: Code(s): M79.7 - Fibromyalgia Category: Medical Plan: #Fibromyalgia Had improvement on the pregabalin 50 mg without drowsiness or any other side effects, but increase to 75 was not met with any improvement. This is likely due to her compression fracture. We will send to pain management Plan - continue pregabalin 75mg nightly - RTC 6 months (3) Low back pain with right-sided sciatica: Code(s): M54.41 - Lumbago with sciatica, right side Category: Medical Qualifiers: Back pain laterality: right Chronicity: chronic Qualified Code(s): M54.41 - Lumbago with sciatica, right side; G89.29 - Other chronic pain Plan: #Low back pain Continue follow up with pain management (4) Sjogrens syndrome: Code(s): M35.00 - Sjogren syndrome, unspecified Category: Medical Qualifiers: Sjogren's organ involvement: without extraglandular involvement Qualified Code(s): M35.00 - Sicca syndrome, unspecified Plan: #?Sjogrens Syndrome Carries a diagnosis of Sjogren's on a background of positive SSA and sicca symp toms. Her main symptoms however have been osteoarthritis related. And since she never had any objective evidence of inflammatory arthritis or evidence of extraglandular Sjogren's the diagnosis was put into question. When she last saw Dr. Gutierrez Duke 02/01/2023 she was started on gabapentin and given a pain management referral for her sciatica. Unsure of when the gabapentin was stopped but at her follow-up visit in 07/11/2023 she was no longer on gabapentin. Likely self discontinued. They were again was no evidence of inflammatory arthritis and she had no evidence of sicca symptoms at that time. As of now she does not fully current diagnosis of Sjogren's. She mainly follows with Rheumatology for fibromyalgia and osteoarthritis. Plan I spent 40 minutes reviewing the record and labs, taking a history, examining the patient, discussing the treatment plan, ordering diagnostic work up and documenting in the medical record Orders: Orders Complement C4 Today M35.00 - Sjogren syndrome, unspecified Rheumatoid Factor Today M35.00 - Sjogren syndrome, unspecified Complement C3 Today M35.00 - Sjogren syndrome, unspecified Comprehensive Met. Panel Today M35.00 - Sjogren syndrome, unspecified Vitamin D 25-OH Total Today E55.9 - Vitamin D deficiency, unspecified Complete Blood Count Auto Diff Today M35.00 - Sjogren syndrome, unspecified C Reactive Protein Today M35.00 - Sjogren syndrome, unspecified Erythrocyte Sedimentation Rate Today M35.00 - Sjogren syndrome, unspecified Protein Electrophoresis, Serum Today M35.00 - Sjogren syndrome, unspecified Immunofixation Pnl, Serum Today M35.00 - Sjogren syndrome, unspecified Referrals Infusion Center Notification M80.00XA - Age-related osteoporosis with current pathological fracture, unspecified site, initial encounter for fracture Medications: Discontinued prednisone Discontinued Reason: Doctor's Order 20 mg PO DAILY 7 tabs 0RF doxycycline monohydrate Discontinued Reason: Patient Completed Course 100 mg PO BID 10 days 20 tabs 0RF prednisone Discontinued Reason: Doctor's Order 20 mg PO DAILY 3 days 3 tabs 0RF clindamycin HCl (Cleocin HCl) Discontinued Reason: Patient Completed Course 300 mg PO Q8H 7 days 21 caps 0RF Coding Level of Care Code Est Pt Level 5 (69881) Complex EM visit Add On G2211 Diagnoses Age-related osteoporosis with current pathological fracture, initial encounter M80.00XA Osteoporosis type: age-related Presence of current pathological fracture: with current pathological fracture Encounter type: initial encounter Fibromyalgia M79.7 Chronic right-sided low back pain with right-sided sciatica M54.41; G89.29 Back pain laterality: right Chronicity: chronic Sjogren's syndrome without extraglandular involvement M35.00 Sjogren's organ involvement: without extraglandular involvement
[2025-02-18 14:02] VITALS: BP 132/80; PULSE 50; O2SAT 99; BMI 31.6
--- OUTSIDE RECORDS SUMMARY | 2025-02-18 17:43 | XMS_ITS | Encounter Summary ---
Author Organization [facility] Address [address] [place] [address] Phone Care Team Providers Care Retail Area Manager Name Role Phone Truong Colon MD Primary Care Provider +1- [phone] Encounter Details Date Type Department Care Team (Late Contact Info) Description 04/24/2024 Documentation Only [facility] [address] [place] [address] Kylie Gabriel [address] [place], [place] [...] [facility] [address] [place] [address] Romero Jimenez MD [address] [place] [address] [place] [address] documented as of this encounter Visit Diagnoses Not on filedocumented in this encounter Care Teams Retail Area Manager Relationship Specialty Start Date End Date Truong Colon MD [address] [place] [address] PCP - General Internal Medicine 03/06/23 documented as of this encounter
--- OUTSIDE RECORDS SUMMARY | 2025-02-18 17:43 | XMS_ITS | Encounter Summary ---
Author Organization [facility] Address [address] [place] [address] Phone Care Team Providers Care Coater Slate Name Role Phone Truong Colon MD Primary Care Provider +1- [phone] Encounter Details Date Type Department Care Team (Late Contact Info) Description 12/21/2021 Documentation Only [facility] [address] [address] Dimitris Suarez PA [address] [place] [address] Social History Tobacco Use Types [...] [facility] [address] [place] [address] Romero Jimenez MD [address] [place] [address] documented as of this encounter Visit Diagnoses Not on filedocumented in this encounter Care Teams Coater Slate Relationship Specialty Start Date End Date Truong Colon MD [address] [place] [address] PCP - General Internal Medicine 03/06/23 documented as of this encounter
--- OUTSIDE RECORDS SUMMARY | 2025-02-18 17:43 | XMS_ITS | Encounter Summary ---
Author Organization [facility] Address [address] [place] [address] Phone Care Team Providers Care Lead Machinist Name Role Phone Truong Colon MD Primary Care Provider +1- [phone] Encounter Details Date Type Department Care Team (Late Contact Info) Description 11/09/2021 Documentation Only [facility] [address] [place] [address] Dimitris Suarez PA [address] [place] [address] Social History Tobacco Use Types [...] Visit [facility] [address] [place] [address] Romero Jimenez MD [address] [facility] [address] [place] [address] documented as of this encounter Visit Diagnoses Not on filedocumented in this encounter Care Teams Lead Machinist Relationship Specialty Start Date End Date Truong Colon MD [address] [place] [address] PCP - General Internal Medicine 03/06/23 documented as of this encounter
--- OUTSIDE RECORDS SUMMARY | 2025-02-18 17:43 | XMS_ITS | Encounter Summary ---
Author Organization [facility] Address [address] [place] [address] Phone Care Team Providers Care Precision Lens Generator Name Role Phone Truong Colon MD Primary Care Provider +1- [phone] Encounter Details Date Type Department Care Team (Late Contact Info) Description 04/04/2024 Documentation Only [facility] [address] [place] [address] Jasmin Dumont [address] [place] [address] Social History Tobacco Use Types Packs/Day [...] [facility] [address] [place] [address] Romero Jimenez MD [address] [place] [address] [place] [address] documented as of this encounter Visit Diagnoses Not on filedocumented in this encounter Care Teams Precision Lens Generator Relationship Specialty Start Date End Date Truong Colon MD [address] [place] [address] PCP - General Internal Medicine 03/06/23 documented as of this encounter
--- OUTSIDE RECORDS SUMMARY | 2025-02-18 17:43 | XMS_ITS | Encounter Summary ---
Author Organization [facility] Address [address] [place] [address] Phone Care Team Providers Care Roll Threader Operator Name Role Phone Truong Colon MD Primary Care Provider +1- [phone] Encounter Details Date Type Department Care Team (Late Contact Info) Description 05/12/2021 Documentation Only [facility] [address] [place] [address] Eligio Meza MD [address] [place] [address] [place] [address] Social History Tobacco Use Types [...] [facility] [address] [place] [address] Romero Jimenez MD [address] [place] [address] [place] [address] documented as of this encounter Visit Diagnoses Not on filedocumented in this encounter Care Teams Roll Threader Operator Relationship Specialty Start Date End Date Truong Colon MD [address] [place] [address] PCP - General Internal Medicine 03/06/23 documented as of this encounter
--- OUTSIDE RECORDS SUMMARY | 2025-02-18 17:43 | XMS_ITS | Encounter Summary ---
Author Organization [facility] Address [address] [place] [address] Phone Care Team Providers Care Maintenance Of Way Supervisor Name Role Phone Truong Colon MD Primary Care Provider +1- [phone] Encounter Details Date Type Department Care Team ([facility] Contact Info) Description 11/28/2024 Orders Only [facility] [address] [place] [address] Kylie Gabriel [address] [place] [address] Anemia in chronic kidney disease; [...] Visit [facility] [address] [place] [address] Romero Jimenez MD [address] [place] [address] documented as of this encounter Visit Diagnoses Diagnosis Anemia in chronic kidney disease Stage 3b chronic kidney disease (HCC) Iron deficiency anemia, not otherwise specified documented in this encounter Care Teams Maintenance Of Way Supervisor Relationship Specialty Start Date End Date Truong Colon MD [address] [place] [address] PCP - General Internal Medicine 03/06/23 documented as of this encounter
--- OUTSIDE RECORDS SUMMARY | 2025-02-18 17:43 | XMS_ITS | Encounter Summary ---
Author Organization [facility] Address [address] [place] [address] Phone Care Team Providers Care Green Chain Puller Name Role Phone Truong Colon MD Primary Care Provider +1- [phone] Encounter Details Date Type Department Care Team (Late Contact Info) Description 08/12/2024 Documentation Only [facility] [address] [place] [address] [place] [address] [place] [address] Social History Tobacco Use Types Packs/Day [...] [facility] [address] [place] [address] Romero Jimenez MD [address] [place] [address] [place] [address] documented as of this encounter Visit Diagnoses Not on filedocumented in this encounter Care Teams Green Chain Puller Relationship Specialty Start Date End Date Truong Colon MD [address] [place] [address] PCP - General Internal Medicine 03/06/23 documented as of this encounter
--- OUTSIDE RECORDS SUMMARY | 2025-02-18 17:43 | XMS_ITS | Data Portability ---
Author Organization [facility] Address [address] [place] [address] Care Team Providers Care Gridcap Machine Operator Name Role Phone HIM CCA OTHER ABRAN GALICIA Primary Care Provider [phone] Assessment Encounter Date Assessment Date Assessment LastModified by Organization Details LastModified Time 12/24/2024 12/24/2024 I have reviewed and agree with the assessment and plan as documented by the chainstitch seat joiner. I provided real-time medical direction for this encounter and was immediately available to provide additional phone-based assistance as needed. 79F presenting with mid sternal chest pain constant for the past week. No SOB, no radiation. No cough/fever. States she felt it worsen today. Also with headache, dizziness, and is concerned that her blood pressure is higher than normal. Impression/Plan : EKG reviewed. No evidence for ST elevation. Given ongoing pain and worsening symptoms today, cannot rule out ischemic heart disease. Recommend patient be seen in ED. Pt agreeable for transfer. We discussed the diagnostic uncertainty of home visits and the risk associated with this. In this case, the patient and I felt this to be an acceptable and reasonable amount of risk given the benefit of avoiding an ED visit. We discussed the need to seek care urgently/emerge ntly in the setting of any new or worsening serious symptoms, particularly weakness, dizziness, fever, chills, CP, SOB, worsening diarrhea, nausea, vomiting or any other concerns. paysola Not available 12/24/2024 19:47:50 Plan of Treatment Reminders Order Date Submit Date Provider Last Modified By Organization Details Last Modified Time Details Appointments None recorded. Lab None recorded. Referral None recorded. Procedures None recorded. Surgeries None recorded. Imaging electrocard iogram 2024 025 [facility], [address] [place] [address], [phone] 19:47:50 Medication Orders None recorded. Patient TargetsNo targets recorded. Patient InstructionsNo instructions recorded. Reason for Referral None Reported. Results Created Date Observation Date Name Description Value Unit Range Abnormal Flag Note LastModifiedBy Organization Detail LastModifiedTime 12/25/19 25 12/24/2024 michael beyergr am No observ ation record ed. [email or web address] [address], [phone] 12/24/2024 22:02:22 Result Notes None recorded. Medical Equipment None Reported. Allergies Allergen ID Allergen Name Allergen Category Reaction Reaction Severity Criticality Documentation Date Start Date Code Code System Note Provider Name and Address Organization Details Recorded Time 46064 Product containin g penicilli n (product) medicatio n Not available Not available Not available 12/24/2024 46699 8001 SNOMED Not Available [employer] - production 17:47:39 Medications Name Sig Start Date Stop Date Status Note LastModified by Organization Details LastModified Time methocarbamo l 500 mg tablet TAKE 1 TABLET BY MOUTH EVERY 8 HOURS active Not Available Not Available No t Available carvedilol 12.5 mg tablet TAKE 1 TABLET BY MOUTH TWICE A DAY active Not Available Not Available No t Available tizanidine 2 mg tablet TAKE 1 TABLET ORALLY 3 TIMES A DAY NEEDED FOR MUSCLE SPASTICITY active Not Available Not Available N ot Available clindamycin HCl 300 mg capsule TAKE 1 CAPSULE BY MOUTH EVERY 8 HOURS FOR 7 DAYS active Not Available Not Available No t Available azithromycin 250 mg tablet TAKE 1 TABLET ORALLY DAILY FOR 4 DAYS START ON DAY 2 OF THERAPY active Not Available Not Available No t Available prednisone 20 mg tablet TAKE 1 TABLET BY MOUTH EVERY DAY FOR 3 DAYS active Not Available Not Available No t Available amlodipine 5 mg tablet TAKE 1 TABLET BY MOUTH EVERY DAY active Not Available Not Available No t Available omeprazole 40 mg capsule,kristie yed release TAKE 1 CAPSULE BY MOUTH EVERY DAY AT 0630 active Not Available Not Available Not Available doxycycline monohydrate 100 mg tablet TAKE 1 TABLET BY MOUTH TWICE A DAY FOR 10 DAYS active Not Available Not Available No t Available amlodipine 10 mg tablet TAKE 1 TABLET BY MOUTH EVERY DAY active Not Available Not Available No t Available calcitriol 0.5 mcg capsule TAKE 2 CAPSULES BY MOUTH ONE TIME PER WEEK active Not Available Not Available No t Available levothyroxin e 125 mcg tablet TAKE 1 TABLET BY MOUTH EVERY DAY AT 6AM active Not Available Not Available N ot Available docusate sodium 100 mg capsule TAKE 1 CAPSULE BY MOUTH TWICE A DAY active Not Available Not Available No t Available gabapentin 300 mg capsule TAKE 1 CAPSULE BY MOUTH 1 TIME EACH DAY. active Not Available Not Available No t Available hydroxyzine HCl 25 mg tablet TAKE 1 TABLET BY MOUTH TWICE A DAY NEEDED FOR ANXIETY active Not Available Not Available No t Available ammonium lactate 12 % topical cream APPLICATION TO AFFECTED AREA EXTERNALLY TWICE A DAY TO DRY AREAS OF SKIN ON FEET EXCEPT BETWEEN TOES active Not Available Not Available No t Available gabapentin 100 mg capsule TAKE 1 CAPSULE BY MOUTH EVERY DAY active Not Available Not Available No t Available cefuroxime axetil 500 mg tablet TAKE 1 TABLET BY MOUTH TWICE A DAY active Not Available Not Available No t Available oxycodone 5 mg tablet TAKE 1 TABLET BY MOUTH EVERY 4 HOURS NEEDED FOR PAIN active Not Available Not Available No t Available Laxative (bisacodyl) 5 mg tablet,delay ed release TAKE 1 TABLET BY MOUTH EVERYDAY AT BEDTIME active Not Available Not Available No t Available pregabalin 50 mg capsule TAKE 1 CAPSULE BY MOUTH AT BEDTIME active Not Available Not Available No t Available pregabalin 75 mg capsule TAKE 1 CAPSULE BY MOUTH EVERYDAY AT BEDTIME active Not Available Not Available No t Available Vitals Date Recorded Body height Respiratory rate Body temperature Oxygen saturation Oxygen saturation in Arterial blood by Pulse oximetry Heart rate Body weight Heart rate Systolic And Diastolic Systolic And Diastolic Provider Name and Address Organization Details Last Updated DateTime 5 177.8 cm 18 /min 97.7 [degF] 100 % 100 % 67 /min 469785. 608 g 57 /min 160/75 mm[Hg] 123/74 mm[Hg] Not Available [employer] - production 5 19:27:12 Social History None recorded. Functional Status None recorded. Mental Status None recorded. Family History Nothing Reported. Medical History No medical history recorded. Gynecological HistoryNo gynecological history recorded. Obstetrics History GPAL:G 0 P 0 0 0 0 Past Encounters Encounter ID Performer Location Encounter Start Date Encounter Closed Date Diagnosis/Indication Diagnosis SNOMED-CT Code Diagnosis ICD10 Code Diagnosis IMO Codes Diagnosis Note [id number] Antonia Harrison MD [facility] ED Medical [facility] [address] [place] [address] 12/24/2024 19:02:49 12/25/2024 21:09:24 Precordial pain 22378138 R07.2 21821 Health Concerns Section Related Observation LastModified by Organization Detai ls LastModified Time None Recorded Concern Status LastModified by Organization Details LastModified Time None Recorded Advance Directives Directive None Recorded Payers Insurance Date Sequence Insurance Name Policy Number Policy Salazar Covered Member ID Salazar Member ID Guarantor Name 12/24/2024 1 [facility] - DOS ON OR AFTER 2022 - DUAL ELIGIBLE - [employer] OPTIONS AND ONE CARE (MEDICARE REPLACEMENT/AD VANTAGE - HMO) Jacinda Blancas [id number] Jacinda Blancas Notes Date Note Type Note Provider Name and Address Organization Details Recorded Time 12/24/2024 text/html [facility] Nurse Triage Notes (Dawn Agosto): Reason For Request: high bp Patient Reports: Palpitations, feeling dizzy; Chest pain, increased fatigue Denies: History of Heart Attack, in the setting of active chest pain Active Chest pain, radiates to neck jaw and or arm Diaphoretic/Sweating Describes as c rushing Sudden onset of nausea/Vomiting and shortness of breath. Shortness of Breath Unable to speak in full sentences without distress CHF history, increased swelling and edema Weakness/tachycardia Chief Complaints: High Blood Pressure PMH: Hypertension, Osteoarthritis PMH Reviewed at 12/24/2024 - 17:47 Allergies Reviewed at 12/24/2024 - 17:47 Comments: 79 y.o female reporting high blood pressure 163/57. Takes b/p meds BID. Coreg 12.5 mg BID amlodipine 10 mg once daily c/o headache, chest pain in middle of chest non-radiating. denies dizziness/lightheade dness PMH: anemia, thyroid disorder, arthritis. No blood thinner and no CKD. I provided information on the mobile health provider response time and advised the patient and/or caregiver to monitor reported signs and symptoms. I discussed the warning signs of when to seek emergency care. EKG (19:27:18) - This test has been updated by the chainstitch seat joiner, Lilia Chino at (12/24/2024 21:30:52). The changes are marked in bold. EKG test performed. Attachments uploaded as part of this test result can be found under Documents section. .................... .................... .................... .................... .................... .................... .................... . Crossing Tender Note From Lilia Chino: Sent to a call for a pt complaining of hypertension. [facility] arrives on scene, pt is alert and oriented, airway is patent. Pt complains of headache x 3 weeks, constant left side chest pain described as pressure, dizziness when going from sitting to standing x 1 week. Pt states she has been stressed for a couple weeks, and symptoms worsened today after an upsetting experience at the dentist today. Pt denies vision changes, sob, n/v/d, abd pain, black/bloody stool, fever, or loc. (sitting) BP:160/75, P:67, RR:18, SpO2:100% RA, T:97.7; (standing) BP:123/74, P:57; Head: unremarkable; Lung sounds: clear bilaterally; Chest: no tenderness; Abdomen: soft, non-tender, no distention; Back: unremarkable; Extremities: unremarkable; Skin: pink, warm, dry; 12 lead ECG: uploaded to [employer]; [facility] consulted and pt is advised she needs to be transported to ED for further eval. Pt agrees to transport, but was hesitant to go to ED without doctor's recommendation. 911 called; Allergies verified: PCN; 5 med rights verified; Baby ASA 324mg PO administered. 20g IV placed in left AC. Pt care transferred to [facility]. [facility] Lab Orders: electrocardiogram: Performed .................... .................... .................... .................... .................... .................... .................... . [facility] Consulted: Antonia Harrison .................... .................... .................... .................... .................... .................... .................... . Disposition: Fulfilled Antonia Harrison MD [address] [facility],[address] [facility], [place], [address], CEDRIC JORGENSEN 12/25/2024 17:47:31 OBGyn Episode No OBEpisode recorded.
--- OUTSIDE RECORDS SUMMARY | 2025-02-18 17:43 | XMS_ITS | Encounter Summary ---
Author Organization [facility] Address [address] [place] [address] Phone Care Team Providers Care Medical Coordinator Pesticide Use Name Role Phone Truong Colon MD Primary Care Provider +1- [phone] Encounter Details Date Type Department Care Team (Late Contact Info) Description 04/10/2024 Documentation Only [facility] [address] [place] [address] Kylie Gabriel [address] [place] [address] Social History Tobacco Use Types [...] [facility] [address] [place] [address] Romero Jimenez MD [address] [place] [address] [place] [address] documented as of this encounter Visit Diagnoses Not on filedocumented in this encounter Care Teams Medical Coordinator Pesticide Use Relationship Specialty Start Date End Date Truong Colon MD [address] [place] [address] PCP - General Internal Medicine 03/06/23 documented as of this encounter
--- OUTSIDE RECORDS SUMMARY | 2025-02-18 17:43 | XMS_ITS | Encounter Summary ---
Author Organization [facility] Address [address] [place] [address] Phone Care Team Providers Care Boom Conveyor Operator Name Role Phone Truong Colon MD Primary Care Provider +1- [phone] Encounter Details Date Type Department Care Team (Late Contact Info) Description 04/10/2024 Documentation Only [facility] [address] [place] [address] Kylie Gabriel [address] [place] [address] Social History Tobacco Use Types [...] [facility] [address] [place] [address] Romero Jimenez MD [address] [place] [address] [place] [address] documented as of this encounter Visit Diagnoses Not on filedocumented in this encounter Care Teams Boom Conveyor Operator Relationship Specialty Start Date End Date Truong Colon MD [address] [place] [address] PCP - General Internal Medicine 03/06/23 documented as of this encounter
--- OUTSIDE RECORDS SUMMARY | 2025-02-18 17:43 | XMS_ITS | Encounter Summary ---
Author Organization [facility] Address [address] [place] [address] Phone Care Team Providers Care Fruit Or Nut Crops Farm Manager Name Role Phone Truong Colon MD Primary Care Provider +1- [phone] Encounter Details Date Type Department Care Team ([facility] Contact Info) Description 05/16/2024 Orders Only [facility] [address] [place] [address] Kylie Gabriel [address] [place] [address] Anemia in chronic kidney disease; [...] Visit [facility] [address] [place] [address] Romero Jimenez MD [address] [place] [address] documented as of this encounter Visit Diagnoses Diagnosis Anemia in chronic kidney disease Stage 3b chronic kidney disease (HCC) Iron deficiency anemia, not otherwise specified documented in this encounter Care Teams Fruit Or Nut Crops Farm Manager Relationship Specialty Start Date End Date Truong Colon MD [address] [place] [address] PCP - General Internal Medicine 03/06/23 documented as of this encounter
--- OUTSIDE RECORDS SUMMARY | 2025-02-18 17:43 | XMS_ITS | Encounter Summary ---
Author Organization [facility] Address [address] [place] [address] Phone Care Team Providers Care Spanish Tutor Name Role Phone Truong Colon MD Primary Care Provider +1- [phone] Encounter Details Date Type Department Care Team (Late Contact Info) Description 05/27/2024 Documentation Only [facility] [address] [place] [address] Kylie Gabriel [address] [place], [place] [...] [facility] [address] [place] [address] Romero Jimenez MD [address] [place] [address] [place] [address] documented as of this encounter Visit Diagnoses Not on filedocumented in this encounter Care Teams Spanish Tutor Relationship Specialty Start Date End Date Truong Colon MD [address] [place] [address] PCP - General Internal Medicine 03/06/23 documented as of this encounter
--- OUTSIDE RECORDS SUMMARY | 2025-02-18 17:43 | XMS_ITS | Patient Health Record ---
Author Organization [facility] Address [address] [place] [address] Care Team Providers Care Ophthalmology Surgical Technician Name Role Phone Radha Pena Primary Care Provider UnavailTimoteo Sneed Unavailable [phone] Allergies Allergen (clinical drug ingredient) Drug/Non Drug [...] Problem Screening for malignant neoplasm of colon (983077057) Encounter for screening for malignant neoplasm of colon (Z12.11) Active confirmed Problem Screening for malignant neoplasm of rectum (846165713) Encounter for screening for malignant neoplasm of rectum (Z12.12) Active confirmed Problem Gastroesophageal reflux disease (623904570) Gastroesophageal reflux disease, esophagitis presence not specified (K21.9) Active confirmed Problem Constipation (37422673) Constipation, unspecified constipation type (K59.00) Active confirmed Plan Of Treatment Future Test Test Name Order Date UPPER GI ENDOSCOPY 11/30/2015 COLONOSCOPY 11/30/2015 Insurance Providers Payer Name Payer Address Payer Phone Subscriber Number Group Number Insured Name Patient Relationship to Insured Coverage Start Date Coverage End Date [facility] [address] [place] [address] [id number] NOE SALDIVAR Self - patient is the insured Medical (General) History Medical History History ICD Code Hypertension Kidney disease--mild renal insuffciency- -GFR of 40--Dr. Meza Denies CO,DM,CVA,Lung disease Neg. colonoscopy in 2004 exc ept for diverticulosis and internal hemorrhoids-- Neg. EGD in 2004--Dr. Bear Breast cancer on the left in 2013--lumpe ctomy and XRT Hypothyroidism GERD Surgical History Surgery Date(Month/Year) Cholecystectomy--Dr. Banks 2014 Bladder suspension Left lumpectomy for breast cancer in 4
--- OUTSIDE RECORDS SUMMARY | 2025-02-18 17:43 | XMS_ITS | Encounter Summary ---
Author Organization [facility] Address [address] [place] [address] Phone Care Team Providers Care Merchant Patroller Name Role Phone Truong Colon MD Primary Care Provider +1- [phone] Encounter Details Date Type Department Care Team ([facility] Contact Info) Description 12/26/2024 Orders Only [facility] [address] [place] [address] Kylie Gabriel [address] [place] [address] Anemia in chronic kidney disease; [...] [facility] [address] [place] [address] Romero Jimenez MD [address] [place] [address] documented as of this encounter Visit Diagnoses Diagnosis Anemia in chronic kidney disease Stage 3b chronic kidney disease (HCC) Iron deficiency anemia, not otherwise specified documented in this encounter Care Teams Merchant Patroller Relationship Specialty Start Date End Date Truong Colon MD [address] [place] [address] PCP - General Internal Medicine 03/06/23 documented as of this encounter
--- OUTSIDE RECORDS SUMMARY | 2025-02-18 17:44 | XMS_ITS | Encounter Summary ---
Author Organization [facility] [place] [address] Care Team Providers Care Dictaphone Typist Name Role Phone Truong Colon MD Primary Care Provider Encounter Details Date Type Department Care Team (Late Contact Info) Description 10/30/2024 Lab Requisition [facility] [address] [facility] [place] [address] Ally Castañeda MD [address] [place] [address] Spinal stenosis, site unspecified; Chronic [...] Office Visit [facility] Hematology Oncology [address] [place] [address] Jennifer Ca MD [address] [place] [address] [phone] (work) documented as of this encounter Procedures [...] 11:08 AM EDT [facility] Calcium 8.9 8.5 - 10.5 mg/dL LAB CHEMISTRY METHOD 10/31/2024 11:08 AM [facility] Blood Venous blood specimen / Unknown Venipuncture / Unknown 10/31/2024 7:20 AM EDT 10/31/2024 10:27 AM EDT us Ally Castañeda MD LAB BLOOD ORDERABLES Final Resul t [facility] [address] [place] [address], * (ABNORMAL) Complete blood count (10/31/2024 7:20 [...] 10:38 AM EDT [facility] RDW 15.1(H) 11.0 [...] t [facility] [address] [place] [address], documented in this encounter Visit Diagnoses Diagnosis Spinal stenosis, site unspecified Chronic kidney disease, unspecified documented in this encounter Care Teams Dictaphone Typist Relationship Specialty Start Date End Date Truong Colon MD [address] [place] PCP - General 05/19/22 documented as of this encounter
--- OUTSIDE RECORDS SUMMARY | 2025-02-18 17:44 | XMS_ITS | Encounter Summary ---
Author Organization [facility] Address [address] [place] [address] Phone Care Team Providers Care Pharmacy Technician Infusion Name Role Phone Truong Colon MD Primary Care Provider +1- [phone] Encounter Details Date Type Department Care Team ([facility] Contact Info) Description 06/13/2024 Orders Only [facility] [address] [place] [address] Kylie Gabriel [address] [place] [address] Anemia in chronic kidney disease; [...] [facility] [address] [place] [address] Romero Jimenez MD [address] [place] [address] documented as of this encounter Visit Diagnoses Diagnosis Anemia in chronic kidney disease Stage 3b chronic kidney disease (HCC) Iron deficiency anemia, not otherwise specified documented in this encounter Care Teams Pharmacy Technician Infusion Relationship Specialty Start Date End Date Truong Colon MD [address] [place] [address] PCP - General Internal Medicine 03/06/23 documented as of this encounter
--- OUTSIDE RECORDS SUMMARY | 2025-02-18 17:44 | XMS_ITS | Patient Health Record ---
Author Organization [facility] camilla Bellona Address [address] [facility] [place] [address] Care Team Providers Care Web Site Manager Name Role Phone Isaiah DURAN, [place] Primary Care Provider Boby Laguerre Unavailable [phone] Allergies Allergen (clinical drug ingredient) Drug/Non Drug [...] Problem Acquired hammer toe of right foot (1987410260930882 ) Other hammer toe(s) (acquired), right foot (M20.41) Active confirmed Response to treatment, Improvemen t Problem Acquired hammer toe of left foot ([id number] ) Other hammer toe(s) (acquired), left foot (M20.42) Active confirmed Response to treatment, Improvemen t Problem Bilateral atherosclerosis of arteries of lower limbs (disorder) ([id number]) Atherosclerosis of upper sk[place] artery of both lower extremities, with unspecified presence of clinical manifestation (I70.203) Active confirmed Vital Signs Blood pressure diastolic 64 mm Hg 12/15/2024 Height 5 ft 9in in 12/15/2024 Blood pressure systolic 127 mm Hg 12/15/2024 Weight 230 lbs 12/15/2024 BMI 33.96 kg/m2 12/15/2024 Procedures Procedure Date Ordered Date Performed Result Body Sit e 26215-BYRRTTY NAIL, 6 OR MORE 05/05/2024 N/A 44006-WOGW SKIN LESIONS, OVER 4 05/05/2024 N/A 52837-UUKBUVM NAIL, 6 OR MORE 07/31/2024 N/A 99483-HZND SKIN LESIONS, OVER 4 07/31/2024 N/A 75915-CQOBXHO NAIL, 6 OR MORE 12/15/2024 N/A 52651-OWQO SKIN LESIONS, OVER 4 12/15/2024 N/A Encounters Encounter Location Date Provider Diagnosis [address] [address] 05/05/2024 Boby Chapman Atherosclerosis of upper skag[place] artery of both lower extremities, with unspecified presence of clinical manifestation I70.203 ; Tinea unguium B35.1 ; Pain in right toe(s) M79.674 ; Pain in left toe(s) M79.675 ; Other hammer toe(s) (acquired), right foot M20.41 and Other hammer toe(s) (acquired), left foot M20.[address] [address] 07/31/2024 Boby Chapman Atherosclerosis of upper [place] artery of both lower extremities, with unspecified presence of clinical manifestation I70.203 ; Tinea unguium B35.1 ; Pain in right toe(s) M79.674 ; Pain in left toe(s) M79.675 ; Other hammer toe(s) (acquired), right foot M20.41 and Other hammer toe(s) (acquired), left foot M20.[address] [address] 12/15/2024 Boby Chapman Atherosclerosis of upper [place] artery of both lower extremities, with unspecified presence of clinical manifestation I70.203 ; Tinea unguium B35.1 ; Pain in right toe(s) M79.674 and Pain in left toe(s) M79.[address] [address] 10/30/2024 Boby Chapman Assessments Encounter Date Diagnosis (ICD Code) Assessment Notes Treatment Notes Treatment Clinical Notes Section Notes 05/05/2024 Tinea unguium (ICD-10 - B35.1) 05/05/2024 Atherosclerosis of upper [place] artery of both lower extremities, with unspecified presence of clinical manifestation (ICD-10 - I70.203) 07/31/2024 Tinea unguium (ICD-10 - B35.1) 07/31/2024 Atherosclerosis of upper [place] artery of both lower extremities, with unspecified presence of clinical manifestation (ICD-10 - I70.203) 12/15/2024 Tinea unguium (ICD-10 - B35.1) 12/15/2024 Atherosclerosis of upper [place] artery of both lower extremities, with unspecified [...] Treatment Pending Test Test Name Order Date 51204-EUSFXVB NAIL, 6 OR MORE 03/21/2017 54000-OQILXTD NAIL, 6 OR MORE 05/30/2017 35902-CEXGMMV NAIL, 6 OR MORE 08/06/2017 08017-WAUUFNF NAIL, 6 OR MORE 10/25/2017 54528-SKMMRKD NAIL, 6 OR MORE 03/20/2018 72436-TEZRFLN NAIL, 6 OR MORE 06/13/2018 78755-UCIDMAP NAIL, 6 OR MORE 01/07/2018 09638-DCRHESC NAIL, 6 OR MORE 08/14/2018 03031-XFQOPNB NAIL, 6 OR MORE 10/17/2018 39850-RPYRBFH NAIL, 6 OR MORE 01/16/2019 38456-SKWBVJZ NAIL, 6 OR MORE 04/03/2019 51086-TTHVWCW NAIL, 6 OR MORE 06/16/2019 70955-UFONGGN NAIL, 6 OR MORE 08/27/2019 16211-CULXMDO NAIL, 6 OR MORE 12/18/2019 89290-SACQNUA NAIL, 6 OR MORE 05/06/2020 19292-FLWIRVZ NAIL, 6 OR MORE 07/15/2020 00486-EWINBLJ NAIL, 6 OR MORE 09/29/2020 44519-RROOSZF NAIL, 6 OR MORE 12/02/2020 45918-CHJNAXN NAIL, 6 OR MORE 02/17/2021 05874-UXVDAJU NAIL, 6 OR MORE 06/16/2021 66294-XCHATWZ NAIL, 6 OR MORE 08/29/2021 21665-QRCPJCQ NAIL, 6 OR MORE 11/10/2021 11460-LYMUUPQ NAIL, 6 OR MORE 01/19/2022 77345-WYEFPIF NAIL, 6 OR MORE 04/05/2022 58006-OUZVBPV NAIL, 6 OR MORE 06/15/2022 17966-OBDPZPO NAIL, 6 OR MORE 08/24/2022 24358-MKBUYLZ NAIL, 6 OR MORE 11/16/2022 01598-HCFSKAH NAIL, 6 OR MORE 01/25/2023 23401-LUZKGED NAIL, 6 OR MORE 04/11/2023 64731-GKSTTZT NAIL, 6 OR MORE 06/27/2023 50325-ZUFAGBM NAIL, 6 OR MORE 08/30/2023 22537-TCGUMYN NAIL, 6 OR MORE 11/08/2023 41407-YAQGJFR NAIL, 6 OR MORE 01/24/2024 82932-YONNUWL NAIL, 6 OR MORE 05/05/2024 47318-FGOWFIX NAIL, 6 OR MORE 07/31/2024 47861-HQTKVPK NAIL, 6 OR MORE 12/15/2024 08370-KUOOELV NAIL, 1-5 11/01/2016 05743-PYJIMRB NAIL, 1-5 01/03/2017 83172-JIJBXDQ NAIL, 1-5 11/15/2015 88669-BKCFGLK NAIL, -01/24/2016 99381-DPWRFWO NAIL, -04/05/2016 55212-RVKYTMZ NAIL, -06/14/2016 96319-WFWYTCF NAIL, 04-2708/23/2016 67050-Agbn Destruction, 05-0611/01/2016 68148-Iaol Destruction, 05-0601/03/2017 81560-Gmre Destruction, 05-0603/21/2017 07679-Xxoi Destruction, 05-0605/30/2017 99879-Gkls Destruction, 05-0608/06/2017 91791-Brxm Destruction, 05-0605/06/2020 03139-Trxl Destruction, 05-0612/18/2019 13733-Xtdz Destruction, 05-0608/27/2019 38466-Hsmh Destruction, 05-0606/16/2019 63880-Ccxs Destruction, 05-0604/03/2019 57119-Oyfk Destruction, 05-0601/16/2019 99420-Lbip Destruction, 05-0610/17/2018 91333-Npmd Destruction, 05-0608/14/2018 38470-Tque Destruction, 05-0606/13/2018 55461-Sokw Destruction, 05-0610/25/2017 63207-Jaow Destruction, 05-0601/07/2018 67100-Ahcj Destruction, 05-0608/30/2023 39208-Bwiy Destruction, 05-0606/27/2023 47533-Arly Destruction, 05-0604/11/2023 90484-Tttd Destruction, 05-0601/25/2023 41272-Zrrh Destruction, 05-0611/16/2022 70881-Fthy Destruction, 05-0608/24/2022 74134-Npow Destruction, 05-0606/15/2022 41362-Jggz Destruction, 05-0604/05/2022 72897-Npsg Destruction, 05-0601/19/2022 23716-Npfr Destruction, 05-0606/16/2021 09297-Awak Destruction, 05-0603/20/2018 41195-Vljg Destruction, 05-0611/10/2021 91958-Keop Destruction, 05-0608/29/2021 49661-Ndvb Destruction, 1-14 02/17/2021 86583-Yzbc Destruction, 1-14 12/02/2020 62683-Gyur Destruction, 1-14 09/29/2020 12052-Pqdl Destruction, 1-14 07/15/2020 75630-Odaz Destruction, 1-14 01/24/2024 44070-Xxbx Destruction, 1-14 11/08/2023 73413-Msoxgwfw Plate 11/08/2023 02889-Vemmmvgx Plate 09/29/2020 80872-Jcbbylqg Plate 12/02/2020 40389-Lcybuyeo Plate 02/17/2021 60808-Xwfyubsq Plate 06/16/2021 35356-Gyiuzkzt Plate 08/29/2021 44325-Ylbiovxw Plate 11/10/2021 89595-Csfrdzri Plate 01/19/2022 44118-Igcaiiwz Plate 04/05/2022 90167-Wggzyrgu Plate 06/15/2022 61818-Mamrcecu Plate 08/24/2022 10344-Rjukbftv Plate 11/16/2022 32331-Zzztbmej Plate 01/25/2023 59310-Diprkerc Plate 04/11/2023 33902-Bdmcxoqh Plate 06/27/2023 83867-Gykcaagp Plate 08/30/2023 36906-Oxlqhels Plate 12/18/2019 40932-Mzuqepqy Plate 05/06/2020 96733-Tmhwhbhs Plate 07/15/2020 98460-Jtiikgsd Plate 11/01/2016 66207-Jmzukcpv Plate Each Additional 12/2023 96886-Ksefzocf Plate Each Additional 09/2023 60626-Osybvfya Plate Each Additional 61510-Uiroevhr Plate Each Additional 08/2022 23497-Bqvawxvq Plate Each Additional 50285-Tytvfuib Plate Each Additional 07/2022 91924-Muanmrko Plate Each Additional 13688-Lbjcxzcf Plate Each Additional 69707-Hhcboqht Plate Each Additional 72101-Nbmerham Plate Each Additional 27365-WTMS SKIN LESIONS, OVER 4 11/08/19 43095-ZDER SKIN LESIONS, OVER 4 01/24/20 93469-EQZD SKIN LESIONS, OVER 4 05/05/19 25475-DUFT SKIN LESIONS, OVER 4 12/16/19 42359-IXBZ SKIN LESIONS, OVER 4 08/01/19 64765-CREA SKIN LESIONS, OVER 4 06/16/19 94536-HSMS SKIN LESIONS, OVER 4 01/20/20 62944-EACH SKIN LESIONS, OVER 4 11/11/19 82557-RFZZ SKIN LESIONS, OVER 4 08/30/19 25582-SGPW SKIN LESIONS, OVER 4 02/18/20 69937-SXXW SKIN LESIONS, OVER 4 12/03/19 75976-AHMH SKIN LESIONS, OVER 4 09/30/19 36812-CDWR SKIN LESIONS, OVER 4 07/16/19 31718-DRKY SKIN LESIONS, OVER 4 04/05/20 33579-EYNT SKIN LESIONS, OVER 4 06/15/19 66641-HBMC SKIN LESIONS, OVER 4 08/25/19 45008-VGZR SKIN LESIONS, OVER 4 11/17/19 42537-USPY SKIN LESIONS, OVER 4 01/26/20 36759-EGIW SKIN LESIONS, OVER 4 04/11/20 42436-URSL SKIN LESIONS, OVER 4 06/27/19 43997-LLUM SKIN LESIONS, OVER 4 08/30/19 31793-BETC SKIN LESIONS, OVER 4 03/21/20 19357-RHUS SKIN LESIONS, OVER 4 01/04/20 17 33319-VUYI SKIN LESIONS, OVER 4 10/26/19 18 86466-FHII SKIN LESIONS, OVER 4 08/07/19 18 11384-SZBY SKIN LESIONS, OVER 4 05/30/19 18 62834-CHYB SKIN LESIONS, OVER 4 11/02/19 17 64507-MFKE SKIN LESIONS, OVER 4 06/14/19 17 22535-XVDK SKIN LESIONS, OVER 4 04/05/20 16 86823-NDHT SKIN LESIONS, OVER 4 08/24/19 97947-PTZG SKIN LESIONS, OVER 4 01/24/20 68443-JANW SKIN LESIONS, OVER 4 11/15/19 83280-ACRK SKIN LESIONS, OVER 4 08/16/19 93041-TIFG SKIN LESIONS, OVER 4 05/06/19 30797-EDCP SKIN LESIONS, OVER 4 08/27/20 20 85817-KSAQ SKIN LESIONS, OVER 4 08/27/19 20 76159-SATC SKIN LESIONS, OVER 4 04/03/20 19 73168-YTPW SKIN LESIONS, OVER 4 06/16/19 20 17590-RIFY SKIN LESIONS, OVER 4 01/08/20 18 57884-CAFK SKIN LESIONS, OVER 4 06/13/19 19 98543-AGLH SKIN LESIONS, OVER 4 08/15/19 19 85481-VTHT SKIN LESIONS, OVER 4 03/20/20 18 10278-WFWK SKIN LESIONS, OVER 4 10/18/19 19 16405-AGQY SKIN LESIONS, OVER 4 01/17/20 19 K3322-NGXMJTMV DYSTROPHIC NAILS ANY # H0106-FRUOHNCW DYSTROPHIC NAILS ANY # U6875-KKYPULKW DYSTROPHIC NAILS ANY # H0840-CPXEQGXP DYSTROPHIC NAILS ANY # O4030-KQSHVEPJ DYSTROPHIC NAILS ANY # Z6281-QGZVOEOU DYSTROPHIC NAILS ANY # N1906-OYUOSLOG DYSTROPHIC NAILS ANY # G3576-MJTVUMRV DYSTROPHIC NAILS ANY # Next Appt Details Provider Name:Boby Chapman , 03/30/2025 01:30:00 PM, [address] [facility], [place] [address], [place], [address], Insurance Providers Payer Name Payer Address Payer Phone Subscriber Number Group Number Insured Name Patient Relationship to Insured Coverage Start Date Coverage End Date [facility] [employer] Claims [address] [place] [id number] Jacinda Benavidez Self - patient is the insured Medical (General) History Medical History History ICD Code Anemia Anxiety Arthritis Back,Hip,and Knee pain Cataracts High blood pressure Liver disease Reflux Thyroid disorder Surgical History Surgery Date(Month/Year) gall bladder 12/11/2014 Unspecified Right Hand SX 03/13/17 Hospitalization History Reason Date(Month/Year) C- back pain 10/03/24
--- OUTSIDE RECORDS SUMMARY | 2025-02-18 17:44 | XMS_ITS | Encounter Summary ---
Author Organization [facility] Address [address] [place] [address] Phone Care Team Providers Care Fisheries Officer Name Role Phone Truong Colon MD Primary Care Provider +1- [phone] Encounter Details Date Type Department Care Team (Late Contact Info) Description 10/29/2023 Documentation Only [facility] [address] [place] [address] Kylie Gabriel [address] [place] [address] Social History Tobacco Use Types [...] [facility] [address] [place] [address] Romero Jimenez MD [address] [place] [address] [place] [address] documented as of this encounter Visit Diagnoses Not on filedocumented in this encounter Care Teams Fisheries Officer Relationship Specialty Start Date End Date Truong Colon MD [address] [place] [address] PCP - General Internal Medicine 03/06/23 documented as of this encounter
--- OUTSIDE RECORDS SUMMARY | 2025-02-18 17:44 | XMS_ITS | Encounter Summary ---
Author Organization [facility] Address [address] [place] [address] Phone Care Team Providers Care Flat Ironer Name Role Phone Truong Colon MD Primary Care Provider +1- [phone] Encounter Details Date Type Department Care Team ([facility] Contact Info) Description 10/31/2024 Orders Only [facility] [address] [place] [address] Kylie Gabriel [address] [place] [address] Anemia in chronic kidney disease; [...] [facility] [address] [place] [address] Romero Jimenez MD [address] [facility] [place] [address] documented as of this encounter Visit Diagnoses Diagnosis Anemia in chronic kidney disease Stage 3b chronic kidney disease (HCC) Iron deficiency anemia, not otherwise specified documented in this encounter Care Teams Flat Ironer Relationship Specialty Start Date End Date Truong Colon MD [address] [place] [address] PCP - General Internal Medicine 03/06/23 documented as of this encounter
--- OUTSIDE RECORDS SUMMARY | 2025-02-18 17:44 | XMS_ITS | Encounter Summary ---
Author Organization [facility] Address [address] [place] [address] Phone Care Team Providers Care Packing Machine Tender Name Role Phone Truong Colon MD Primary Care Provider +1- [phone] Encounter Details Date Type Department Care Team (Late Contact Info) Description 08/04/2024 Documentation Only [facility] [address] [place] [address] Kylie Gabriel [address] [place] [address] Social History Tobacco Use Types [...] [facility] [address] [place] [address] Romero Jimenez MD [address] [place] [address] [place] [address] documented as of this encounter Visit Diagnoses Not on filedocumented in this encounter Care Teams Packing Machine Tender Relationship Specialty Start Date End Date Truong Colon MD [address] [place] [address] PCP - General Internal Medicine 03/06/23 documented as of this encounter
--- OUTSIDE RECORDS SUMMARY | 2025-02-18 17:44 | XMS_ITS | Clinical Summary ---
Author Organization [facility] Address [address] [place] [address] Care Team Providers Care Ocean Lifeguard Specialist Name Role Phone Truong Colon MD Primary Care Provider +1- [phone] Allergies Active Allergy Reactions Criticality Noted Date [...] age to complete this topic Care Teams Ocean Lifeguard Specialist Relationship Specialty Start Date End Date Truong Colon MD [address] [place] [address] PCP - General Internal Medicine 05/19/22
--- OUTSIDE RECORDS SUMMARY | 2025-02-18 17:44 | XMS_ITS ---
Author Organization [employer] [facility] Address [address] [place] [address] Care Team Providers Care Senior Solutions Architect Name Role Phone Truong Colon MD Primary Care Provider +1- [phone] Active Problems Problem Noted Date Diagnosed Date Iron deficiency anemia 05/18/2022 Malignant neoplasm of upper- outer quadrant of left breast in female, estrogen receptor positive 03/28/2017 Gastroesophageal reflux disease without esophagi tis 03/28/2017 Acquired hypothyroidism 03/28/2017 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 Current Oncology Plans No current plan information found. Past Plans Radiation Treatments * No radiation treatments are documented for this patient in [facility]. Treatments may have been administered in another system.
--- OUTSIDE RECORDS SUMMARY | 2025-02-18 17:44 | XMS_ITS | Encounter Summary ---
Author Organization [facility] Address [address] [place] [address] Phone Care Team Providers Care Pastry Baker Name Role Phone Truong Colon MD Primary Care Provider +1- [phone] Encounter Details Date Type Department Care Team (Late Contact Info) Description 08/08/2024 Orders Only [facility] [address] [place] [address] Kylie Gabriel [address] [place] [address] Anemia in chronic kidney disease; [...] [facility] [address] [place] [address] Romero Jimenez MD [address] [facility] [place] [address] documented as of this encounter Visit Diagnoses Diagnosis Anemia in chronic kidney disease Stage 3b chronic kidney disease (HCC) Iron deficiency anemia, not otherwise specified documented in this encounter Care Teams Pastry Baker Relationship Specialty Start Date End Date Truong Colon MD [address] [place] [address] PCP - General Internal Medicine 03/06/23 documented as of this encounter
--- OUTSIDE RECORDS SUMMARY | 2025-02-18 17:44 | XMS_ITS | Encounter Summary ---
Author Organization [facility] Address [address] [place] [address] Phone Care Team Providers Care Registered Nurse Step Down Name Role Phone Truong Colon MD Primary Care Provider +1- [phone] Encounter Details Date Type Department Care Team (Late Contact Info) Description 04/14/2022 Documentation Only [facility] [address] [place] [address] Eligio Meza MD [address] [place] [address] [place] [address] Social History Tobacco Use Types [...] [facility] [address] [place] [address] Romero Jimenez MD [address] [place] [address] [place] [address] documented as of this encounter Visit Diagnoses Not on filedocumented in this encounter Care Teams Registered Nurse Step Down Relationship Specialty Start Date End Date Truong Colon MD [address] [place] [address] PCP - General Internal Medicine 03/06/23 documented as of this encounter
--- OUTSIDE RECORDS SUMMARY | 2025-02-18 17:44 | XMS_ITS | Encounter Summary ---
Author Organization [facility] Address [address] [place] [address] Phone Care Team Providers Care Customer Experience Associate Name Role Phone Truong Colon MD Primary Care Provider +1- [phone] Encounter Details Date Type Department Care Team ([facility] Contact Info) Description 01/23/2025 Orders Only [facility] [address] [place] [address] Kylie Gabriel [address] [place] [address] Anemia in chronic kidney disease; [...] Visit [facility] [address] [place] [address] Romero Jimenez MD [address] [facility] [address] [place] [address] documented as of this encounter Visit Diagnoses Diagnosis Anemia in chronic kidney disease Stage 3b chronic kidney disease (HCC) Iron deficiency anemia, not otherwise specified documented in this encounter Care Teams Customer Experience Associate Relationship Specialty Start Date End Date Truong Colon MD [address] [place] [address] PCP - General Internal Medicine 03/06/23 documented as of this encounter
--- OUTSIDE RECORDS SUMMARY | 2025-02-18 17:44 | XMS_ITS | Encounter Summary ---
Author Organization [facility] Address [address] [place] [address] Phone Care Team Providers Care Wet End Tester Name Role Phone Truong Colon MD Primary Care Provider +1- [phone] Encounter Details Date Type Department Care Team (Late Contact Info) Description 06/03/2024 Documentation Only [facility] [address] [place] [address] Kylie Gabriel [address] [place] [address] Social History Tobacco Use Types [...] [facility] [address] [place] [address] Romero Jimenez MD [address] [place] [address] [place] [address] documented as of this encounter Visit Diagnoses Not on filedocumented in this encounter Care Teams Wet End Tester Relationship Specialty Start Date End Date Truong Colon MD [address] [place] [address] PCP - General Internal Medicine 03/06/23 documented as of this encounter
--- OUTSIDE RECORDS SUMMARY | 2025-02-18 17:44 | XMS_ITS | Encounter Summary ---
Author Organization [facility] Address [address] [place] [address] Phone Care Team Providers Care Civil Draftsman Name Role Phone Truong Colon MD Primary Care Provider +1- [phone] Encounter Details Date Type Department Care Team (Late Contact Info) Description 10/26/2023 Documentation Only [facility] [address] [place] [address] Kylie Gabriel [address] [place] [address] Social History Tobacco Use Types [...] [facility] [address] [place] [address] Romero Jimenez MD [address] [place] [address] [place] [address] documented as of this encounter Visit Diagnoses Not on filedocumented in this encounter Care Teams Civil Draftsman Relationship Specialty Start Date End Date Truong Colon MD [address] [place] [address] PCP - General Internal Medicine 03/06/23 documented as of this encounter
--- OUTSIDE RECORDS SUMMARY | 2025-02-18 17:44 | XMS_ITS | Encounter Summary ---
Author Organization [facility] Address [address] [place] [address] Phone Care Team Providers Care Body Builder Name Role Phone Truong Colon MD Primary Care Provider +1- [phone] Encounter Details Date Type Department Care Team (Late Contact Info) Description 04/11/2022 Documentation Only [facility] [address] [place] [address] Kylie Gabriel [address] [place] [address] Social History Tobacco Use Types [...] [facility] [address] [place] [address] Romero Jimenez MD [address] [place] [address] [place] [address] documented as of this encounter Visit Diagnoses Not on filedocumented in this encounter Care Teams Body Builder Relationship Specialty Start Date End Date Truong Colon MD [address] [place] [address] PCP - General Internal Medicine 03/06/23 documented as of this encounter
--- OUTSIDE RECORDS SUMMARY | 2025-02-18 17:44 | XMS_ITS | Encounter Summary ---
Author Organization [facility] [place] [address] Care Team Providers Care Recreation Worker Name Role Phone Truong Colon MD Primary Care Provider [phone] Encounter Details Date Type Department Care Team (Late Contact Info) Description 10/22/2024 Lab Requisition [facility] - Main Lab [address] [facility] [place] [address] Ally Castañeda MD [address] [place], [place] [id number] Essential (primary) hypertension; Anemia, unspecified Social History [...] Visit [facility] Hematology Oncology [address] [place] [address] Jennifer Ca MD [address] [place] [address] documented as of this encounter [...] LAB CHEMISTRY METHOD 10/22/2024 9:41 AM EDT [facility] Blood Venous blood specimen / Unknown Venipuncture / Unknown 10/22/2024 5:26 AM EDT 10/22/2024 8:36 AM EDT us Ally Castañeda MD LAB BLOOD ORDERABLES Final Resul t [facility] [address] [place] [address], * (ABNORMAL) Basic metabolic panel (10/22/2024 5:26 AM EDT) Pathologist [facility] Sodium 140 133 - 145 mmol/L LAB CHEMISTRY METHOD 10/22/2024 9:41 AM EDT [facility] Potassium 5.5 3.5 - 5.5 mmol/L LAB CHEMISTRY METHOD 10/22/2024 9:41 AM EDT [facility] Chloride 107 96 - 110 mmol/L LAB CHEMISTRY METHOD 10/22/2024 9:41 AM EDT [facility] CO2 30 21 - 32 mmol/L LAB CHEMISTRY METHOD 10/22/2024 9:41 AM EDT [facility] Anion Gap 3 3 - 11 LAB CHEMISTRY METHOD 10/22/2024 9:41 AM EDT [facility] Glucose 69(L) 70 - 100 mg/dL LAB CHEMISTRY METHOD 10/22/2024 9:41 AM EDT [facility] BUN 21 5 - 25 mg/dL LAB CHEMISTRY METHOD 10/22/2024 9:41 AM EDT [facility] Creatinine 0.90 0.50 - 1.10 mg/dL LAB CHEMISTRY METHOD 10/22/2024 9:41 AM EDT [facility] eGFR 64 >=60 mL/min/1. 73m2 LAB CHEMISTRY METHOD 10/22/2024 9:41 AM EDT [facility] Comment:Calculation based on the Chronic Kidney Disease Epidemiology Collaboration (CKD-EPI) equation refit without adjustment for race. BUN/Creatinine Ratio 23.3 LAB CHEMISTRY METHOD 10/22/2024 9:41 AM [facility] Calcium 9.0 8.5 - 10.5 mg/dL LAB CHEMISTRY METHOD 10/22/2024 9:41 AM [facility] Blood Venous blood specimen / Unknown Venipuncture / Unknown 10/22/2024 5:26 AM EDT 10/22/2024 8:36 AM EDT us Ally Castañeda MD LAB BLOOD ORDERABLES Final Resul t [facility] [address] [place] [address], * (ABNORMAL) Complete blood count (10/22/2024 5:26 AM EDT) WBC 5.7 4.8 - 10.8 K/mcL LAB HEMETOLOGY METHOD 10/22/2024 9:09 AM EDT [facility] RBC 3.20(L) 3.80 - 4.80 M/mcL LAB HEMETOLOGY METHOD 10/22/2024 9:09 AM [facility] Hemoglobin 8.6(L) 11.5 - 16.0 g/dL LAB HEMETOLOGY METHOD 10/22/2024 9:09 AM [facility] Hematocrit 28.7(L) 35.0 - 47.0 % LAB HEMETOLOGY METHOD 10/22/2024 9:09 AM [facility] MCV 90.8 79.0 - 98.0 FL LAB HEMETOLOGY METHOD 10/22/2024 9:09 AM [facility] MCH 27.2 27.0 - 32.0 pcg LAB HEMETOLOGY METHOD 10/22/2024 9:09 AM [facility] MCHC 30.0(L) 32.0 - 37.0 g/dL LAB HEMETOLOGY METHOD 10/22/2024 9:09 AM [facility] RDW 13.4 11.0 - 15.0 % LAB HEMETOLOGY METHOD 10/22/2024 9:09 AM [facility] Platelets 383 130 - 400 K/mcL LAB HEMETOLOGY METHOD 10/22/2024 9:09 AM [facility] MPV 10.0 7.0 - 11.0 FL LAB HEMETOLOGY METHOD 10/22/2024 9:09 AM [facility] NRBC 0.0 <1.0 % LAB HEMETOLOGY METHOD 10/22/2024 9:09 AM [facility] NRBC Absolute 0.00 <0.10 K/mcL LAB HEMETOLOGY METHOD 10/22/2024 9:09 AM [facility] Blood Venous blood specimen / Unknown Venipuncture / Unknown 10/22/2024 5:26 AM EDT 10/22/2024 8:36 AM EDT Ally Castañeda MD LAB BLOOD ORDERABLES Final Resul t [facility] LAB [address] [place] [address], documented in this encounter Visit Diagnoses Diagnosis Essential (primary) hypertension Unspecified essential hypertension Anemia, unspecified documented in this encounter Care Teams Recreation Worker Relationship Specialty Start Date End Date Truong Colon MD [address] [place] [address] Dr [address] [place], [place] PCP - General 05/19/22 documented as of this encounter
--- OUTSIDE RECORDS SUMMARY | 2025-02-18 17:44 | XMS_ITS | Encounter Summary ---
Author Organization [facility] Address [address] [place] [address] Phone Care Team Providers Care Sequins Spooler Name Role Phone Truong Colon MD Primary Care Provider [phone]- [phone] Encounter Details Date Type Department Care Team (Late Contact Info) Description 05/04/2022 Documentation Only [facility] [address] [place] [address] Kylie Gabriel [address] [place] [address] Social History Tobacco Use Types [...] [facility] [address] [place] [address] Romero Jimenez MD [address] [place] [address] [place] [address] documented as of this encounter Visit Diagnoses Not on filedocumented in this encounter Care Teams Sequins Spooler Relationship Specialty Start Date End Date Truong Colon MD [address] [place] [address] PCP - General Internal Medicine 03/06/23 documented as of this encounter
--- OUTSIDE RECORDS SUMMARY | 2025-02-18 17:44 | XMS_ITS | Clinical Summary ---
Author Organization [facility] Address [address] [place] [address] [address] [place] [address] Phone Care Team Providers Care Forensic Nurse Name Role Phone Dimple Vergara MD Primary [...] [facility] Care Teams Forensic Nurse Relationship Specialty Start Date End Date Dimple Vergara MD [address] [place] [address] PCP - General 11/13/13 Additional Source Comments The information contained in this document represents components of the legal health record. It is not the complete legal health record.[facility]
--- OUTSIDE RECORDS SUMMARY | 2025-02-18 17:44 | XMS_ITS | Encounter Summary ---
Author Organization [facility] Address [address] [place] [address] Phone Care Team Providers Care Candle Molder Name Role Phone Truong Colon MD Primary Care Provider +1- [phone] Encounter Details Date Type Department Care Team ([facility] Contact Info) Description 09/05/2024 Orders Only [facility] [address] [place] [address] Kylie Gabriel [address] [place] [address] Anemia in chronic kidney disease; [...] [facility] [address] [place] [address] Romero Jimenez MD [address] [facility] [address] [place] [address] documented as of this encounter Visit Diagnoses Diagnosis Anemia in chronic kidney disease Stage 3b chronic kidney disease (HCC) Iron deficiency anemia, not otherwise specified documented in this encounter Care Teams Candle Molder Relationship Specialty Start Date End Date Truong Colon MD [address] [place] [address] PCP - General Internal Medicine 03/06/23 documented as of this encounter
--- OUTSIDE RECORDS SUMMARY | 2025-02-18 17:44 | XMS_ITS | Encounter Summary ---
Author Organization [facility] Address [address] [place] [address] Phone Care Team Providers Care Blow Molder Name Role Phone Truong Colon MD Primary Care Provider +1- [phone] Encounter Details Date Type Department Care Team (Late Contact Info) Description 07/31/2024 Documentation Only [facility] [address] [place] [address] Kylie Gabriel [address] [place] [address] Social History Tobacco Use Types [...] [facility] [address] [place] [address] Romero Jimenez MD [address] [place] [address] [place] [address] documented as of this encounter Visit Diagnoses Not on filedocumented in this encounter Care Teams Blow Molder Relationship Specialty Start Date End Date Truong Colon MD [address] [place] [address] PCP - General Internal Medicine 03/06/23 documented as of this encounter
--- OUTSIDE RECORDS SUMMARY | 2025-02-18 17:44 | XMS_ITS | Encounter Summary ---
Author Organization [facility] Address [address] [place] [address] Phone Care Team Providers Care President And Cmo Name Role Phone Truong Colon MD Primary Care Provider +1- [phone] Encounter Details Date Type Department Care Team (Late Contact Info) Description 10/26/2023 Documentation Only [facility] [address] [place] [address] Kylie Gabriel [address] [place], [place] [...] [facility] [address] [place] [address] Romero Jimenez MD [address] [place] [address] [place] [address] documented as of this encounter Visit Diagnoses Not on filedocumented in this encounter Care Teams President And Cmo Relationship Specialty Start Date End Date Truong Colon MD [address] [place] [address] PCP - General Internal Medicine 03/06/23 documented as of this encounter
--- OUTSIDE RECORDS SUMMARY | 2025-02-18 17:44 | XMS_ITS | Encounter Summary ---
Author Organization [facility] Address [address] [place] [address] Phone Care Team Providers Care Athletic Equipment Manager Name Role Phone Truong Colon MD Primary Care Provider +1- [phone] Encounter Details Date Type Department Care Team (Late Contact Info) Description 10/03/2024 Orders Only [facility] [address] [facility] [address] Kylie Gabriel [address] [place] [address] Anemia in chronic kidney disease; [...] [facility] [address] [facility] [address] Romero Jimenez MD [address] [facility] [address] [place] [address] documented as of this encounter Visit Diagnoses Diagnosis Anemia in chronic kidney disease Stage 3b chronic kidney disease (HCC) Iron deficiency anemia, not otherwise specified documented in this encounter Care Teams Athletic Equipment Manager Relationship Specialty Start Date End Date Truong Colon MD [address] [place] [address] PCP - General Internal Medicine 03/06/23 documented as of this encounter
--- OUTSIDE RECORDS SUMMARY | 2025-02-18 17:44 | XMS_ITS | Encounter Summary ---
Author Organization [facility] [place] Address [address] [place] [address] Phone Care Team Providers Care Travel Service Consultant Name Role Phone Truong Colon MD Primary Care Provider +1- [phone] Encounter Details Date Type Department Care Team (Late Contact Info) Description 01/21/2024 Orders Only [facility] [address] [place] [address] Dimitris Suarez PA [address] [place] [address] [place] [address] Stage 3a chronic kidney disease [...] [facility] [address] [place] [address] Romero Jimenez MD [address] [place] [address] [place] [address] documented as of this encounter Visit Diagnoses Diagnosis Stage 3a chronic kidney disease (HCC) Essential hypertension Peripheral vascular disease (HCC) Peripheral vascular disease Renal osteodystrophy documented in this encounter Care Teams Travel Service Consultant Relationship Specialty Start Date End Date Truong Colon MD [address] [place] [address] PCP - General Internal Medicine 03/06/23 documented as of this encounter
--- OUTSIDE RECORDS SUMMARY | 2025-02-18 17:44 | XMS_ITS | Encounter Summary ---
Author Organization [facility] [place] [address] Care Team Providers Care Marketing Production Manager Name Role Phone Truong Colon MD Primary Care Provider +1 [phone] Encounter Details Date Type Department Care Team (Late st Contact Info) Description 10/10/2024 Lab Requisition [facility] - Main Lab [address] [facility] [place] [address] Ally Castañeda MD [address] [place] [address] Malignant neoplasm of unspecified site of unspecified female breast ([facility]/HCC V24, [facility] V28); Hypothyroidism, unspecified; Vitamin D [...] [facility] Hematology Oncology [address] [place] [id number] Jennifer Ca MD [address] [place] [phone] documented as of this encounter Procedures Procedure Name Priority Date/Time Associated Diagnosis Comments THYROID STIMULATING HORMONE WITH REFLEX TO FREE T4 AND FREE T3 Routine 10/10/2024 5:37 AM EDT Malignant neoplasm of unspecified site of unspecified female breast ([facility]/HCC V24, [facility]/HCC V28) Hypothyroidism, unspecified Vitamin D deficiency, unspecified Vitamin B12 deficiency anemia, unspecified Spinal stenosis, site unspecified Chronic kidney disease, stage 3 unspecified ([facility]/HCC V24, [facility]/HCC V28) VITAMIN D 25 HYDROXY Routine 10/10/2024 5:37 AM EDT Malignant neoplasm of unspecified site of unspecified female breast ([facility]/HCC V24, [facility]/HCC V28) Hypothyroidism, unspecified Vitamin [...] site of unspecified female breast ([facility]/HCC V24, [facility]/HCC V28) Hypothyroidism, unspecified Vitamin D deficiency, unspecified Vitamin B12 deficiency anemia, unspecified Spinal stenosis, site unspecified Chronic kidney disease, stage 3 unspecified (CMS/HCC V24, CMS/HCC V28) VITAMIN B12 Routine 10/10/2024 5:37 AM EDT Malignant neoplasm of unspecified site of unspecified female breast ([facility] V24, [facility] V28) Hypothyroidism, unspecified Vitamin D deficiency, unspecified Vitamin B12 deficiency anemia, unspecified Spinal stenosis, site unspecified Chronic kidney disease, stage 3 unspecified ([facility] V24, [facility] V28) COMPREHENSIVE METABOLIC PANEL Routine 10/10/2024 5:37 AM EDT Malignant neoplasm of unspecified site of unspecified female breast ([facility] V24, [facility] V28) Hypothyroidism, unspecified Vitamin D deficiency, unspecified Vitamin B12 deficiency anemia, unspecified Spinal stenosis, site unspecified Chronic kidney disease, stage 3 unspecified ([facility] V24, [facility] V28) documented in this encounter Results * Vitamin D 25 hydroxy (10/10/2024 5:37 AM EDT) Vit D, 25-Hydroxy 52.0 30.0 - 80.0 ng/mL LAB CHEMISTRY METHOD 10/10/2024 1:00 PM EDT [facility] Blood Venous blood specimen / Unknown Venipuncture / Unknown 10/10/2024 5:37 AM EDT 10/10/2024 9:30 AM EDT us Ally Castañeda MD LAB BLOOD ORDERABLES Final Resul t [facility] [address] [place] [address], [place] [phone] * Folate (10/10/2024 5:37 AM EDT) Folate 12.9 2.8 - 17.0 ng/ml LAB CHEMISTRY METHOD 10/10/2024 11:35 AM EDT [facility] Blood Venous blood specimen / Unknown Venipuncture / Unknown 10/10/2024 5:37 AM EDT 10/10/2024 9:30 AM EDT us Ally Castañeda MD LAB BLOOD ORDERABLES Final Resul t Performing Organization Address [facility]/ZIP Co de Phone Number [facility] [address] [place] [address], [place] [phone] * Vitamin B12 (10/10/2024 5:37 AM EDT) Vitamin B-12 371 250 - 900 pcg/mL LAB CHEMISTRY METHOD 10/10/2024 11:35 AM EDT [facility] Blood Venous blood specimen / Unknown Venipuncture / Unknown 10/10/2024 5:37 AM EDT 10/10/2024 9:30 AM EDT us Ally Castañeda MD LAB BLOOD ORDERABLES Final Resul t Performing Organization Address [facility] de Phone Number [facility] [address] [place] [address], * Thyroid stimulating hormone with reflex to free t4 and free t3 (10/10/2024 5:37 AM EDT) Pathologist [facility] TSH 2.96 0.40 - 4.00 mcIU/mL LAB CHEMISTRY METHOD 10/10/2024 1:01 PM EDT [facility] Blood Venous blood specimen / Unknown Venipuncture / Unknown 10/10/2024 5:37 AM EDT 10/10/2024 9:30 AM EDT us Ally Castañeda MD LAB BLOOD ORDERABLES Final Resul t Performing Organization Address [facility]/ZIP Co de Phone Number [facility] [address] [place] [address], [place] [phone] * (ABNORMAL) Comprehensive metabolic panel (10/10/2024 5:37 AM EDT) Sodium 130(L) 133 - 145 mmol/L LAB CHEMISTRY METHOD 10/10/2024 11:35 AM EDT [facility] Potassium 4.9 3.5 - 5.5 mmol/L LAB CHEMISTRY METHOD 10/10/2024 11:35 AM [facility] Chloride 97 96 - 110 mmol/L LAB CHEMISTRY METHOD 10/10/2024 11:35 AM [facility] CO2 28 21 - 32 mmol/L LAB CHEMISTRY METHOD 10/10/2024 11:35 AM [facility] Anion Gap 5 3 - 11 LAB CHEMISTRY METHOD 10/10/2024 11:35 AM [facility] Glucose 82 70 - 100 mg/dL LAB CHEMISTRY METHOD 10/10/2024 11:35 AM [facility] BUN 37(H) 5 - 25 mg/dL LAB CHEMISTRY METHOD 10/10/2024 11:35 AM [facility] Creatinine 1.16(H) 0.50 - 1.10 mg/dL LAB CHEMISTRY METHOD 10/10/2024 11:35 AM [facility] eGFR 47(L) >=60 mL/min/1. 73m2 LAB CHEMISTRY METHOD 10/10/2024 11:35 AM [facility] Comment:Calculation based on the Chronic Kidney Disease Epidemiology Collaboration (CKD-EPI) equation refit without adjustment for race. BUN/Creatinine Ratio 31.9 LAB CHEMISTRY METHOD 10/10/2024 11:35 AM [facility] Calcium 8.9 8.5 - 10.5 mg/dL LAB CHEMISTRY METHOD 10/10/2024 11:35 AM [facility] AST (SGOT) 42 10 - 42 unit/L LAB CHEMISTRY METHOD 10/10/2024 11:35 AM [facility] ALT (SGPT) 48 10 - 60 unit/L LAB CHEMISTRY METHOD 10/10/2024 11:35 AM [facility] Alkaline Phosphatase 98 42 - 121 unit/L LAB CHEMISTRY METHOD 10/10/2024 11:35 AM [facility] Total Protein 6.3 6.0 - 8.0 g/dL LAB CHEMISTRY METHOD 10/10/2024 11:35 AM EDT [facility] Albumin 2.3(L) 3.2 - 5.0 g/dL LAB CHEMISTRY METHOD 10/10/2024 11:35 AM EDT [facility] Total Bilirubin 0.4 0.0 - 1.4 mg/dL LAB CHEMISTRY METHOD 10/10/2024 11:35 AM EDT [facility] Blood Venous blood specimen / Unknown Venipuncture / Unknown 10/10/2024 5:37 AM EDT 10/10/2024 9:30 AM EDT Ally Castañeda MD LAB BLOOD ORDERABLES Final Resul t [facility] [address] [place] [address], [place] [phone] * (ABNORMAL) Complete blood count (10/10/2024 5:37 AM EDT) WBC 9.2 4.8 - 10.8 K/mcL LAB HEMETOLOGY METHOD 10/10/2024 10:58 AM EDT [facility] RBC 3.10(L) 3.80 - 4.80 M/mcL LAB HEMETOLOGY METHOD 10/10/2024 10:58 AM EDT [facility] Hemoglobin 8.8(L) 11.5 - 16.0 g/dL LAB HEMETOLOGY METHOD 10/10/2024 10:58 AM EDT [facility] Hematocrit 28.0(L) 35.0 - 47.0 % LAB HEMETOLOGY METHOD 10/10/2024 10:58 AM EDT [facility] MCV 89.7 79.0 - 98.0 FL LAB HEMETOLOGY METHOD 10/10/2024 10:58 AM EDT [facility] MCH 28.2 27.0 - 32.0 pcg LAB HEMETOLOGY METHOD 10/10/2024 10:58 AM EDT [facility] MCHC 31.4(L) 32.0 - 37.0 g/dL LAB HEMETOLOGY METHOD 10/10/2024 10:58 AM EDT [facility] RDW 13.2 11.0 - 15.0 % LAB HEMETOLOGY METHOD 10/10/2024 10:58 AM EDT [facility] Platelets 261 130 - 400 K/mcL LAB HEMETOLOGY METHOD 10/10/2024 10:58 AM EDT [facility] MPV 11.0 7.0 - 11.0 FL LAB HEMETOLOGY METHOD 10/10/2024 10:58 AM EDT [facility] NRBC 0.0 <1.0 % LAB HEMETOLOGY METHOD 10/10/2024 10:58 AM EDT [facility] NRBC Absolute 0.00 <0.10 K/mcL LAB HEMETOLOGY METHOD 10/10/2024 10:58 AM EDT [facility] Blood Venous blood specimen / Unknown Venipuncture / Unknown 10/10/2024 5:37 AM EDT 10/10/2024 9:30 AM EDT us Ally Castañeda MD LAB BLOOD ORDERABLES Final Resul t [facility] [address] [place] [address], documented in this encounter Visit Diagnoses Diagnosis Malignant neoplasm of unspecified site of unspecified female breast (CMS/HCC V24, CMS/HCC V28) Hypothyroidism, unspecified Vitamin D deficiency, unspecified Vitamin B12 deficiency anemia, unspecified Spinal stenosis, site unspecified Chronic kidney disease, stage 3 unspecified (CMS/HCC V24, CMS/HCC V28) documented in this encounter Care Teams Marketing Production Manager Relationship Specialty Start Date End Date Truong Colon MD [address] [place] PCP - General 05/19/22 documented as of this encounter
--- OUTSIDE RECORDS SUMMARY | 2025-02-18 17:44 | XMS_ITS | Encounter Summary ---
Author Organization [facility] [place] [address] Care Team Providers Care Open Soaper Tender Name Role Phone rTuong Colon MD Primary Care Provider Encounter Details Date Type Department Care Team (Late Contact Info) Description 10/16/2024 Lab Requisition [facility] - Main Lab [address] [facility] [place] [address] Ally Castañeda MD [address] [place] [address] Spinal stenosis, site unspecified; Chronic [...] [facility] Hematology Oncology [address] [place] [address] Jennifer Ca MD [address] [place] [address] [phone] (work) documented as of this encounter Procedures [...] mmol/L LAB CHEMISTRY METHOD 10/17/2024 12:[address] [facility] Potassium 5.6(H) 3.5 - 5.5 mmol/L LAB CHEMISTRY METHOD 10/17/2024 12:[address] [facility] Chloride 103 96 - 110 mmol/L LAB CHEMISTRY METHOD 10/17/2024 12:[address] [facility] CO2 28 21 - 32 mmol/L LAB CHEMISTRY METHOD 10/17/2024 12:[address] [facility] Anion Gap 5 3 - 11 LAB CHEMISTRY METHOD 10/17/2024 12:[address] [facility] Glucose 77 70 - 100 mg/dL LAB CHEMISTRY METHOD 10/17/2024 12:[address] [facility] BUN 23 5 - 25 mg/dL LAB CHEMISTRY METHOD 10/17/2024 12:[address] [facility] Creatinine 1.02 0.50 - 1.10 mg/dL LAB CHEMISTRY METHOD 10/17/2024 12:[address] [facility] eGFR 55(L) >=60 mL/min/1. 73m2 LAB CHEMISTRY METHOD 10/17/2024 12:[address] [facility] Comment:Calculation based on the Chronic Kidney Disease Epidemiology Collaboration (CKD-EPI) equation refit without adjustment for race. BUN/Creatinine Ratio 22.5 LAB CHEMISTRY METHOD 10/17/2024 12:13 PM T [facility] Calcium 8.9 8.5 - 10.5 mg/dL LAB CHEMISTRY METHOD 10/17/2024 12:[address] [facility] Blood Venous blood specimen / Unknown Venipuncture / Unknown 10/17/2024 7:36 AM EDT 10/17/2024 11:30 AM EDT us Ally Castañeda MD LAB BLOOD ORDERABLES Final Resul t [facility] [address] [place] [address], [place] [phone] * (ABNORMAL) Complete blood count (10/17/2024 7:36 AM EDT) WBC 6.5 4.8 - 10.8 K/mcL LAB HEMETOLOGY METHOD 10/17/2024 12:[address] [facility] RBC 3.40(L) 3.80 - 4.80 M/mcL LAB HEMETOLOGY METHOD 10/17/2024 12:[address] [facility] Hemoglobin 9.2(L) 11.5 - 16.0 g/dL LAB HEMETOLOGY METHOD 10/17/2024 12:[address] [facility] Hematocrit 30.9(L) 35.0 - 47.0 % LAB HEMETOLOGY METHOD 10/17/2024 12:[address] [facility] MCV 91.2 79.0 - 98.0 FL LAB HEMETOLOGY METHOD 10/17/2024 12:[address] [facility] MCH 27.1 27.0 - 32.0 pcg LAB HEMETOLOGY METHOD 10/17/2024 12:[address] [facility] MCHC 29.8(L) 32.0 - 37.0 g/dL LAB HEMETOLOGY METHOD 10/17/2024 12:00 PM EDT [facility] RDW 13.2 11.0 - 15.0 % LAB HEMETOLOGY METHOD 10/17/2024 12:00 PM EDT [facility] Platelets 495(H) 130 - 400 K/mcL LAB HEMETOLOGY METHOD 10/17/2024 12:00 PM EDT [facility] MPV 10.0 7.0 - 11.0 FL LAB HEMETOLOGY METHOD 10/17/2024 12:00 PM EDT [facility] NRBC 0.0 <1.0 % LAB HEMETOLOGY METHOD 10/17/2024 12:00 PM EDT [facility] NRBC Absolute 0.00 <0.10 K/mcL LAB HEMETOLOGY METHOD 10/17/2024 12:00 PM EDT [facility] Blood Venous blood specimen / Unknown Venipuncture / Unknown 10/17/2024 7:36 AM EDT 10/17/2024 11:30 AM EDT us Ally Castañeda MD LAB BLOOD ORDERABLES Final Resul t [facility] [address] [place] [address], documented in this encounter Visit Diagnoses Diagnosis Spinal stenosis, site unspecified Chronic kidney disease, unspecified documented in this encounter Care Teams Open Soaper Tender Relationship Specialty Start Date End Date Truong Colon MD [address] [place] [address] Dr Eric Christian [place] PCP - General 05/19/22 documented as of this encounter
--- OUTSIDE RECORDS SUMMARY | 2025-02-18 17:44 | XMS_ITS | Encounter Summary ---
Author Organization [facility] [place] [address] Care Team Providers Care Truck Driver Instructor Name Role Phone Truong Colon MD Primary Care Provider [phone] Encounter Details Date Type Department Care Team (Late Contact Info) Description 10/22/2024 Lab Requisition [facility] - Main Lab 299 [facility] [place] [address] Ally Castañeda MD [address] [place] [address] Spinal stenosis, site unspecified; Chronic [...] [facility] Hematology Oncology [address] [place] [address] Jennifer Ca MD [address] [place] [address] [phone] (work) documented as of this encounter Procedures [...] mmol/L LAB CHEMISTRY METHOD 10/23/2024 11:28 AM [facility] Potassium 4.6 3.5 - 5.5 mmol/L LAB CHEMISTRY METHOD 10/23/2024 11:28 AM [facility] Chloride 107 96 - 110 mmol/L LAB CHEMISTRY METHOD 10/23/2024 11:28 AM [facility] CO2 29 21 - 32 mmol/L LAB CHEMISTRY METHOD 10/23/2024 11:28 AM [facility] Anion Gap 4 3 - 11 LAB CHEMISTRY METHOD 10/23/2024 11:28 AM [facility] Glucose 65(L) 70 - 100 mg/dL LAB CHEMISTRY METHOD 10/23/2024 11:28 AM [facility] BUN 17 5 - 25 mg/dL LAB CHEMISTRY METHOD 10/23/2024 11:28 AM [facility] Creatinine 0.87 0.50 - 1.10 mg/dL LAB CHEMISTRY METHOD 10/23/2024 11:28 AM [facility] eGFR 67 >=60 mL/min/1. 73m2 LAB CHEMISTRY METHOD 10/23/2024 11:28 AM [facility] Comment:Calculation based on the Chronic Kidney Disease Epidemiology Collaboration (CKD-EPI) equation refit without adjustment for race. BUN/Creatinine Ratio 19.5 LAB CHEMISTRY METHOD 10/23/2024 11:28 AM EDT [facility] Calcium 8.7 8.5 - 10.5 mg/dL LAB CHEMISTRY METHOD 10/23/2024 11:28 AM [facility] Blood Venous blood specimen / Unknown Venipuncture / Unknown 10/23/2024 5:09 AM EDT 10/23/2024 10:13 AM EDT us Ally Castañeda MD LAB BLOOD ORDERABLES Final Resul t [facility] [address] [place] [address], * (ABNORMAL) Complete blood count (10/23/2024 5:09 AM EDT) WBC 4.8 4.8 - 10.8 K/mcL LAB HEMETOLOGY METHOD 10/23/2024 10:31 AM [facility] RBC 3.10(L) 3.80 - 4.80 M/mcL LAB HEMETOLOGY METHOD 10/23/2024 10:31 AM [facility] Hemoglobin 8.3(L) 11.5 - 16.0 g/dL LAB HEMETOLOGY METHOD 10/23/2024 10:31 AM [facility] Hematocrit 27.9(L) 35.0 - 47.0 % LAB HEMETOLOGY METHOD 10/23/2024 10:31 AM [facility] MCV 90.3 79.0 - 98.0 FL LAB HEMETOLOGY METHOD 10/23/2024 10:31 AM [facility] MCH 26.9(L) 27.0 - 32.0 pcg LAB HEMETOLOGY METHOD 10/23/2024 10:31 AM [facility] MCHC 29.7(L) 32.0 - 37.0 g/dL LAB HEMETOLOGY METHOD 10/23/2024 10:31 AM EDT [facility] RDW 13.7 11.0 - 15.0 % LAB HEMETOLOGY METHOD 10/23/2024 10:31 AM EDT [facility] Platelets 342 130 - 400 K/mcL LAB HEMETOLOGY METHOD 10/23/2024 10:31 AM EDT [facility] MPV 10.0 7.0 - 11.0 FL LAB HEMETOLOGY METHOD 10/23/2024 10:31 AM EDT [facility] NRBC 0.0 <1.0 % LAB HEMETOLOGY METHOD 10/23/2024 10:31 AM EDT [facility] NRBC Absolute 0.00 <0.10 K/mcL LAB HEMETOLOGY METHOD 10/23/2024 10:31 AM EDT [facility] Blood Venous blood specimen / Unknown Venipuncture / Unknown 10/23/2024 5:09 AM EDT 10/23/2024 10:13 AM EDT us Ally Castañeda MD LAB BLOOD ORDERABLES Final Resul t [facility] [address] [place] [address], documented in this encounter Visit Diagnoses Diagnosis Spinal stenosis, site unspecified Chronic kidney disease, unspecified documented in this encounter Care Teams Truck Driver Instructor Relationship Specialty Start Date End Date Truong Colon MD [address] [place] [address] Dr [address] JA[address] Christian PCP - General 05/19/22 documented as of this encounter
--- OUTSIDE RECORDS SUMMARY | 2025-02-18 17:44 | XMS_ITS | Encounter Summary ---
Author Organization [facility], Address [address] [place] [address] Phone Care Team Providers Care Wiring Technician Name Role Phone Truong Colon MD Primary Care Provider +1- [phone] Encounter Details Date Type Department Care Team (Late Contact Info) Description 01/23/2024 Documentation Only [facility], - [address] [place] [address] Jasmin Dumont [address] [place] [address] Social History Tobacco Use Types Packs/Day [...] Visit [facility], [address] [place] [address] Romero Jimenez MD [address] [facility] [place] [address] documented as of this encounter Visit Diagnoses Not on filedocumented in this encounter Care Teams Wiring Technician Relationship Specialty Start Date End Date Truong Colon MD [address] [place] [address] PCP - General Internal Medicine 03/06/23 documented as of this encounter
--- OUTSIDE RECORDS SUMMARY | 2025-02-18 17:44 | XMS_ITS | Encounter Summary ---
Author Organization [facility] Address [address] [place] [address] Phone Care Team Providers Care Painter Bottom Name Role Phone Truong Colon MD Primary Care Provider +1- [phone] Encounter Details Date Type Department Care Team (Late Contact Info) Description 01/31/2024 Documentation Only [facility] [address] [place] [address] Kylie Gabriel [address] [place] [address] Social History Tobacco Use Types [...] [facility] [address] [place] [address] Romero Jimenez MD [address] [place] [address] [place] [address] documented as of this encounter Visit Diagnoses Not on filedocumented in this encounter Care Teams Painter Bottom Relationship Specialty Start Date End Date Truong Colon MD [address] [place] [address] PCP - General Internal Medicine 03/06/23 documented as of this encounter
--- OUTSIDE RECORDS SUMMARY | 2025-02-18 17:44 | XMS_ITS | Clinical Summary ---
Author Organization [facility] Address [address] [place] [address] Phone Care Team Providers Care Valve Machine Operator Name Role Phone Truong Colon MD Primary Care Provider +1 [phone] Allergies Active Allergy Reactions Criticality Noted Date [...] receptor positive ([facility] V24, [facility] V28) 07/03/2023 Iron deficiency anemia 05/18/2022 Acquired hypothyroidism 03/28/2017 Gastroesophageal reflux disease without esophagi tis 03/28/2017 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 Surgical History Surgery Date Site/Laterality Comments LUMBAR DISC SURGERY PROCEDURE:LUMBAR DISC SURGERY Medical History Medical History Date Comments Malignant neoplasm of upper- outer quadrant of left female breast ([facility] V24, [facility] V28) DX:Malignant neoplasm of upp er-outer [...] Visit [facility] Hematology Oncology [address] [place] [address] Jennifer Ca MD [address] [place] [address] Health Maintenance Due Date Last [...] mmol/L LAB CHEMISTRY METHOD 10/31/2024 11:08 AM [facility] Potassium 4.7 3.5 - 5.5 mmol/L LAB CHEMISTRY METHOD 10/31/2024 11:08 AM [facility] Chloride 109 96 - 110 mmol/L LAB CHEMISTRY METHOD 10/31/2024 11:08 AM [facility] CO2 30 21 - 32 mmol/L LAB CHEMISTRY METHOD 10/31/2024 11:08 AM [facility] Anion Gap 3 3 - 11 LAB CHEMISTRY METHOD 10/31/2024 11:08 AM [facility] Glucose 78 70 - 100 mg/dL LAB CHEMISTRY METHOD 10/31/2024 11:08 AM [facility] BUN 11 5 - 25 mg/dL LAB CHEMISTRY METHOD 10/31/2024 11:08 AM [facility] Creatinine 0.92 0.50 - 1.10 mg/dL LAB CHEMISTRY METHOD 10/31/2024 11:08 AM [facility] eGFR 63 >=60 mL/min/1. 73m2 LAB CHEMISTRY METHOD 10/31/2024 11:08 AM EDT [facility] Comment:Calculation based on the Chronic Kidney Disease Epidemiology Collaboration (CKD-EPI) equation refit without adjustment for race. BUN/Creatinine Ratio 12.0 LAB CHEMISTRY METHOD 10/31/2024 11:08 AM EDT [facility] Calcium 8.9 8.5 - 10.5 mg/dL LAB CHEMISTRY METHOD 10/31/2024 11:08 AM EDT [facility] Blood Venous blood specimen / Unknown Venipuncture / Unknown 10/31/2024 7:20 AM EDT 10/31/2024 10:27 AM EDT us Ally Castañeda MD LAB BLOOD ORDERABLES Final Resul t [facility] [address] [place] [address], * DXA BONE DENSITY STUDY 1+ SITS AXIAL SKEL (10/07/2021 10:23 AM EDT) Anatomical Region Laterality Modality Bone Densitometr y 05/10/2021 11:5 1 AM EST Narrative 10/07/2021 4:32 PM EDT Clinical history: other osteoporosis Scans of the lumbar spine and hips were performed on a [employer] Prodig[employer]ow[employer] fan beam bone densitometer. Bone mineral density [...] spine and hips were performed on a [employer] beam bone densitometer. Bone mineral density measurements [...] Group ID:[id number] Type:Not on file Address: [address] [place] [address] Care Teams Valve Machine Operator Relationship Specialty Start Date End Date Truong Colon MD [address] [place] [address] [address] [place], [place] PCP - General 05/19/22
--- OUTSIDE RECORDS SUMMARY | 2025-02-18 17:44 | XMS_ITS | Encounter Summary ---
Author Organization [facility] Address [address] [place] [address] Phone Care Team Providers Care Window Dresser Name Role Phone Truong Colon MD Primary Care Provider +1- [phone] Encounter Details Date Type Department Care Team (Late Contact Info) Description 01/14/2024 Documentation Only [facility] [address] [place] [address] [place] [address] [place] [address] Social History Tobacco Use Types Packs/Day [...] [facility] [address] [place] [address] Romero Jimenez MD [address] [facility] [address] [place] [address] documented as of this encounter Visit Diagnoses Not on filedocumented in this encounter Care Teams Window Dresser Relationship Specialty Start Date End Date Truong Colon MD [address] [place] [address] PCP - General Internal Medicine 03/06/23 documented as of this encounter
--- OUTSIDE RECORDS SUMMARY | 2025-02-18 17:45 | XMS_ITS | Encounter Summary ---
Author Organization [facility] Address [address] [place] [address] Phone Care Team Providers Care Solid State Tester Name Role Phone Truong Colon MD Primary Care Provider +1- [phone] Encounter Details Date Type Department Care Team (Late Contact Info) Description 07/11/2024 Orders Only [facility] [address] [address] Kylie Gabriel [address] [place] [address] Anemia in chronic kidney disease; [...] [facility] [address] [place] [address] Romero Jimenez MD [address] [facility] [place] [address] documented as of this encounter Visit Diagnoses Diagnosis Anemia in chronic kidney disease Stage 3b chronic kidney disease (HCC) Iron deficiency anemia, not otherwise specified documented in this encounter Care Teams Solid State Tester Relationship Specialty Start Date End Date Truong Colon MD [address] [place] [address] PCP - General Internal Medicine 03/06/23 documented as of this encounter
--- OUTSIDE RECORDS SUMMARY | 2025-02-18 17:45 | XMS_ITS | Encounter Summary ---
Author Organization [facility] Address [address] [place] [address] Phone Care Team Providers Care Continuous Improvement Consultant Name Role Phone Truong Colon MD Primary Care Provider +1- [phone] Encounter Details Date Type Department Care Team (Late Contact Info) Description 07/02/2024 Documentation Only [facility] [address] [place] [address] [place] [address] [place] [address] Social History Tobacco Use Types Packs/Day [...] [facility] [address] [place] [address] Romero Jimenez MD [address] [place] [address] [place] [address] documented as of this encounter Visit Diagnoses Not on filedocumented in this encounter Care Teams Continuous Improvement Consultant Relationship Specialty Start Date End Date Truong Colon MD [address] [place] [address] PCP - General Internal Medicine 03/06/23 documented as of this encounter
--- OUTSIDE RECORDS SUMMARY | 2025-02-18 17:45 | XMS_ITS | Encounter Summary ---
Author Organization [facility] [place] [address] Care Team Providers Care Space Operations Officer Name Role Phone Truong Colon MD Primary Care Provider Encounter Details Date Type Department Care Team (Late Contact Info) Description 11/06/2024 Lab Requisition [facility] - Main Lab [address] [facility] [place] [address] Ally Castañeda MD [address] [place] [address] Spinal stenosis, site unspecified; Chronic [...] AM EDT Office Visit Hematology Oncology [address] [place] [address] Jennifer Ca MD [address] [place] [address] documented as of this encounter Visit Diagnoses Diagnosis Spinal stenosis, site unspecified Chronic kidney disease, unspecified documented in this encounter Care Teams Space Operations Officer Relationship Specialty Start Date End Date Truong Colon MD [address] [place] [address] Dr [address] [place], [place] PCP - General 05/19/22 documented as of this encounter
--- OUTSIDE RECORDS SUMMARY | 2025-02-18 17:45 | XMS_ITS | Clinical Summary ---
Author Organization [facility], Address [address] [address] [place] [address] Phone Care Team Providers Care Stamping Die Maker Name Role Phone Truong Colon MD Primary Care Provider +1- [phone] Allergies Active Allergy Reactions Criticality Noted Date [...] Only [facility], [address] [place] [address] Kylie Gabriel Anemia in chronic kidney disease; Stage 3b chronic kidney disease (HCC); Iron deficiency anemia, not otherwise specified 12/26/2024 Orders Only [facility] [address] [place] [address] Kylie Gabriel Anemia in chronic kidney disease; Stage 3b chronic kidney disease (HCC); Iron deficiency anemia, not otherwise specified 12/02/2024 1:40 PM EDT Office Visit [facility] [address] [place] [address] Romero Jimenez MD Stage 3b chronic kidney disease (HCC) (Primary Dx) 11/28/2024 Orders Only [facility] [address] [place] [address] HarveyKylie Anemia in chronic kidney disease; Stage [...] Visit [facility], [address] [place] [address] Romero Jimenez MD [address] [facility] [place] [address] Health Maintenance Due Date Last Done Comments [...] Most Recently Relevant to Health Maintenance Insurance [facility] One [employer] Dual SNP ([id number]) Care Teams Stamping Die Maker Relationship Specialty Start Date End Date Truong Colon MD [address] [place] [id number] PCP - General Internal Medicine 03/06/23
--- OUTSIDE RECORDS SUMMARY | 2025-02-18 17:45 | XMS_ITS | Encounter Summary ---
Author Organization [facility] Address [address] [place] [address] Phone Care Team Providers Care Mechatronics Technician Name Role Phone Truong Colon MD Primary Care Provider +1- [phone] Encounter Details Date Type Department Care Team (Late Contact Info) Description 04/29/2024 Documentation Only [facility] [address] [place] [address] Britt Sol [address] [place] [address] Social History Tobacco Use Types [...] [facility] [address] [place] [address] Romero Jimenez MD [address] [place] [address] [place] [address] documented as of this encounter Visit Diagnoses Not on filedocumented in this encounter Care Teams Mechatronics Technician Relationship Specialty Start Date End Date Truong Colon MD [address] [place] [address] PCP - General Internal Medicine 03/06/23 documented as of this encounter
--- OUTSIDE RECORDS SUMMARY | 2025-02-18 17:45 | XMS_ITS ---
Author Organization [facility], Address [address] [place] [address] [place] [address] Phone Care Team Providers Care Powerhouse Oiler Name Role Phone Truong Colon MD Primary Care Provider +1- [phone] Active Problems Problem Noted Date Diagnosed Date [...]
== END 2025-02-18 14:25 | disposition home or self-care (01) ==
LOC: HO.RHES 13:51
PROVIDERS: PCP Internal Medicine; Visit Provider Student in an Organized Health Care Education/Training Program
DX: M80.08XA Age-related osteoporosis with current pathological fracture, vertebra(e), initial encounter for fracture (principal); M79.7 Fibromyalgia; M54.41 Lumbago with sciatica, right side; G89.29 Other chronic pain; M35.00 Sjogren syndrome, unspecified
CPT/HCPCS: 99215; G2211

== ENCOUNTER → 2025-02-18 13:50 | Outpatient (BNVA) | payer OTHER, SELFPAY | PROVIDERS: PCP Internal Medicine; Visit Provider Student in an Organized Health Care Education/Training Program | DX: M79.7 Fibromyalgia (principal); M80.08XA Age-related osteoporosis with current pathological fracture, vertebra(e), initial encounter for fracture; M54.41 Lumbago with sciatica, right side; M35.00 Sjogren syndrome, unspecified; G89.29 Other chronic pain; Z79.899 Other long term (current) drug therapy | CPT/HCPCS: 99212 ==

== ENCOUNTER 2025-02-24 09:07 | Outpatient (REF) | payer OTHER, SELFPAY ==
--- OUTSIDE RECORDS SUMMARY | 2023-03-07 07:36 | XMS_ITS | Continuity of Care Document ---
Author Organization [facility] Address [address] [place] [address] Phone Care Team Providers Care Occupational Therapy Technician Name Role Phone Amanuel DURAN FACS RVT Kaelyn GR Unavailable Unavailable Allergies, Adverse Reactions, Alerts Substance Reaction Status Criticality PENICILLIN Active No Information Medications Medication Instructions Dosage Effective Dates (start - stop) Status Comments Celebrex 200 mg capsule - Ac tive omeprazole 20 mg capsule,delayed release - Active levothyroxine 112 mcg capsule - Active calcitriol 0.5 mcg capsule - Active amlodipine 5 mg tablet - Act tavon Mapap Arthritis Pain 650 mg tablet,extended release - Active bisacodyl (bulk) powder - Ac tive Procedures Procedure Date Office/Outpt E&M Established 25 Mins Jun Phleb Veins - Extrem - To Phleb Veins - Extrem - To Duplex Scan-extrem Veins; Uni/ Endovenous Laser, 1st Vein Endovenous Laser, 1st Vein Endovenous laser vein addon Advance Directives Directive Yes / No Effective Date File Name No Information Encounters Encounter Description Practice Location Reason(s) For Visit Diagnoses Date Provider Providers Copied on Encounter [facility], [address], [id number], [place] tel:[phone] [place] No Information 3 Amanuel DURAN FACS T SIMÓN Pinto. [address], [address], [place], [address], [place]. [phone] Referring Provider: Truong Colon MD, [address], [place], [address]. tel:[phone] Office/Outpt E&M Established 25 Mins [facility], [address] [place] [address] Dr [address] [place], [id number], [place] tel:[phone] [place] Body mass index (BMI) 34.0-34.9, adultVenous insufficiency (chronic) (peripheral) 3 Amanuel DURAN FACS Yoni Pinto. [address] [place] [address], [place] [address], [place], [address], [place]. [phone] Referring Provider: Truong Colon MD, [address], [place], [address]. 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 [address] [place] [address], [address], [place], [address], [place]. [phone] Referring Provider: Truong Colon MD, [address], [place], [address]. 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 [facility] [facility], [address], [place], [address], [place]. tel:[phone] Referring Provider: Truong Colon MD, [address], [place], [address]. tel:[phone] [facility], [address] [place] [address] [address] [place], [id number], [place] tel:[phone] [place] Encntr for f/u exam aft trtmt for cond oth than malig neoplmVenous insufficiency (chronic) (peripheral) 3 Amanuel DUARN FACS RVT SIÓMN Pinto. [address], [facility] [address], [place], [address], [place]. tel:[phone] Referring Provider: Truong Colon MD, [address] [place] [address] Dr [address], [place], [address]. 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 [address], [facility] [address], [place], [address], [place]. [phone] Referring Provider: Truong Colon MD, [address] [place] [address] Dr [address], [place], [address]. 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 [address], [facility] [address], [place], [address], [place]. tel:[phone] Referring Provider: Truong Colon MD, [address], [place], [address]. tel:[phone] Family History Family Member Type Diagnosis Age At Onset No Information Payers Payer name Insurance type Covered alliance party ID Josefina haynes(s) [facility] [id number] Social History Type Description Quantity Date Captured Comments Sex Female Smoking Status No Information Chief Complaint And Reason For Visit No Information Reason For Referral Reason For Referral No Information Plan Of Treatment Date Type Action Status Goal Diet education completed History Of Present Illness Encounter Date Complaint History Of Prese nt Illness No Information Functional Status Date Functional Assessmen t No Information Instructions Date Instruction Additional Infor mation Giving Encouragement to Exercise Related to Body mass index [BMI] 34.0-34.9, adult Diet education Related to Body mass index [BMI] 34.0-34.9, adult Patient education booklet given Related to Venous Insufficiency (Chronic / Peripheral) Assessments Type Assessment Date No Information Patient Care Teams Name Effective Dates (start - stop) Status Members No Information
--- OUTSIDE RECORDS SUMMARY | 2024-10-30 09:45 | XMS_ITS ---
Author Organization [facility] Address [address] [facility] [place] [address] Care Team Providers Care Stranding Machine Operator Helper Name Role Phone Isaiah DURAN, Truong Primary Care Provider UnaBoby Bermudez Unavailable [phone] Encounters Encounter Location Date Provider Diagnosis [facility] [address] [address] 10/30/2024 Boby Chapman Plan Of Treatment Next Appt Details Provider Name:Boby Chapman , 03/30/2025 01:30:00 PM, [address] [facility], [place] [address], [place], [address], Progress Notes * Tommie BLANCASOB:[birth year] (79 yo F)Acc No.[id number]:10/30/2024 Progress Note Patient: Jacinda NUNEZ Provider: Alex Chapman DPM :1945 A ge:79 Y S ex:Female Date:10/30/2024 Address:[address] [place] [address], [place], [id number] Pcp:Truong Colon MD Subjective: * Chief Complaints: [...] DPM Date: 0 10/30/2024 Generated for Yovanny toussaint/Daniel on: 1 04/26/2024 09:49 AM EST
[2025-02-24 09:22] LABS: MANUAL DIFF FLAG NO
[2025-02-24 09:49] LABS: Hematocrit 37.2 % (37.0-47.0); Hemoglobin 11.8 g/dl (12.0-16.0); Imm Gran Abs Auto 0.01 X10*3/uL (0.00-0.03); Imm Gran Pct Auto 0.2 % (0.0-0.4); Lymphocytes Absolute Auto 1.3 X10*3/uL (1.2-4.9); Mean Corpuscular HGB Conc 31.7 g/dl (31.0-35.0); Mean Corpuscular Hemoglobin 27.1 pg (27.0-33.0); Mean Corpuscular Volume 85.3 fL (80.0-98.0); NRBC Abs Auto 0.000 X10*3/uL (0.0-0.012); NRBC Pct Auto 0.0 /100WBC (0.0-0.2); Platelet Count 203 X10*3/uL (160-400); Red Blood Count 4.36 X10*6/uL (4.20-5.50); White Blood Count 4.2 X10*3/uL (4.8-10.8)
--- OUTSIDE RECORDS SUMMARY | 2025-02-24 09:49 | XMS_ITS | Encounter Summary ---
Author Organization [facility] Address [address] [place] [address] Phone Care Team Providers Care Field Service Consultant Name Role Phone Truong Colon MD Primary Care Provider +1- [phone] Encounter Details Date Type Department Care Team (Late Contact Info) Description 05/16/2024 Orders Only [facility] [address] [facility] [place] [address] Kylie Gabriel [address] [place] [address] Anemia in chronic kidney disease; [...] [facility] [address] [place] [address] Romero Jimenez MD [address] [facility] [place] [address] documented as of this encounter Visit Diagnoses Diagnosis Anemia in chronic kidney disease Stage 3b chronic kidney disease (HCC) Iron deficiency anemia, not otherwise specified documented in this encounter Care Teams Field Service Consultant Relationship Specialty Start Date End Date Truong Colon MD [address] [place] [address] PCP - General Internal Medicine 03/06/23 documented as of this encounter
--- OUTSIDE RECORDS SUMMARY | 2025-02-24 09:49 | XMS_ITS | Encounter Summary ---
Author Organization [facility] Address [address] [place] [address] Phone Care Team Providers Care Machining Supervisor Name Role Phone Truong Colon MD Primary Care Provider +1- [phone] Encounter Details Date Type Department Care Team (Late Contact Info) Description 08/12/2024 Documentation Only [facility] [address] [place] [address] [place] [address] [place] [address] Social History Tobacco Use Types Packs/Day [...] [facility] [address] [place] [address] Romero Jimenez MD [address] [place] [address] [place] [address] documented as of this encounter Visit Diagnoses Not on filedocumented in this encounter Care Teams Machining Supervisor Relationship Specialty Start Date End Date Truong Colon MD [address] [place] [address] PCP - General Internal Medicine 03/06/23 documented as of this encounter
--- OUTSIDE RECORDS SUMMARY | 2025-02-24 09:49 | XMS_ITS | Encounter Summary ---
Author Organization [facility] Address [address] [place] [address] Phone Care Team Providers Care Race Relations Adviser Name Role Phone Truong Colon MD Primary Care Provider +1- [phone] Encounter Details Date Type Department Care Team (Late Contact Info) Description 04/04/2024 Documentation Only [facility] [address] [place] [address] Jasmin Dumont [address] [place] [address] Social History Tobacco Use Types Packs/Day [...] [facility] [address] [place] [address] Romero Jimenez MD [address] [place] [address] [place] [address] documented as of this encounter Visit Diagnoses Not on filedocumented in this encounter Care Teams Race Relations Adviser Relationship Specialty Start Date End Date Truong Colon MD [address] [place] [address] PCP - General Internal Medicine 03/06/23 documented as of this encounter
--- OUTSIDE RECORDS SUMMARY | 2025-02-24 09:49 | XMS_ITS | Encounter Summary ---
Author Organization [facility] Address [address] [place] [address] Phone Care Team Providers Care Surveyor Rod Helper Name Role Phone Truong Colon MD Primary Care Provider +1- [phone] Encounter Details Date Type Department Care Team (Late Contact Info) Description 12/21/2021 Documentation Only [facility] [address] [place] [address] Dimitris Suarez PA [address] [place] [place] [address] Social History Tobacco Use Types [...] Visit [facility] [address] [place] [address] Romero Jimenez MD [address] [facility] [place] [address] documented as of this encounter Visit Diagnoses Not on filedocumented in this encounter Care Teams Surveyor Rod Helper Relationship Specialty Start Date End Date Truong Colon MD [address] [place] [address] PCP - General Internal Medicine 03/06/23 documented as of this encounter
--- OUTSIDE RECORDS SUMMARY | 2025-02-24 09:49 | XMS_ITS | Encounter Summary ---
Author Organization [facility] Address [address] [place] [address] Phone Care Team Providers Care Package Collector Name Role Phone Truong Colon MD Primary Care Provider +1- [phone] Encounter Details Date Type Department Care Team (Late Contact Info) Description 05/12/2021 Documentation Only [facility] [address] [place] [address] Eligio Meza MD [address] [place] [address] [place] [address] Social History Tobacco Use Types [...] [facility] [address] [place] [address] Romero Jimenez MD [address] [place] [address] [place] [address] documented as of this encounter Visit Diagnoses Not on filedocumented in this encounter Care Teams Package Collector Relationship Specialty Start Date End Date Truong Colon MD [address] [place] [address] PCP - General Internal Medicine 03/06/23 documented as of this encounter
--- OUTSIDE RECORDS SUMMARY | 2025-02-24 09:49 | XMS_ITS | Encounter Summary ---
Author Organization [facility] Address [address] [place] [address] Phone Care Team Providers Care Shell Sieve Operator Name Role Phone Truong Colon MD Primary Care Provider +1- [phone] Encounter Details Date Type Department Care Team (Late Contact Info) Description 08/08/2024 Orders Only [facility] [address] [place] [address] Kylie Gabriel [address] [place] [address] Anemia in chronic kidney disease; [...] [facility] [address] [place] [address] Romero Jimenez MD [address] [facility] [address] [place] [address] documented as of this encounter Visit Diagnoses Diagnosis Anemia in chronic kidney disease Stage 3b chronic kidney disease (HCC) Iron deficiency anemia, not otherwise specified documented in this encounter Care Teams Shell Sieve Operator Relationship Specialty Start Date End Date Truong Colon MD [address] [place] [address] PCP - General Internal Medicine 03/06/23 documented as of this encounter
--- OUTSIDE RECORDS SUMMARY | 2025-02-24 09:49 | XMS_ITS | Data Portability ---
Author Organization [facility] [place] Address [address] [place] [address] Care Team Providers Care Rock Wool Insulator Name Role Phone HIM CCA OTHER ABRAN GALICIA Primary Care Provider Assessment Encounter Date Assessment Date Assessment LastModified by Organization Details LastModified Time 12/24/2024 12/24/2024 I have reviewed and agree with the assessment and plan as documented by the resident care spec. I provided real-time medical direction for this [...] None recorded. Imaging electrocard iogram 2024 025 [facility], [address] [place] [address], [id number] 19:47:50 Medication Orders None recorded. Patient TargetsNo targets recorded. Patient InstructionsNo instructions recorded. Reason for Referral None Reported. Results Created Date Observation Date Name Description Value Unit Range Abnormal Flag Note LastModifiedBy Organization Detail LastModifiedTime 12/25/19 25 12/24/2024 michael beyergr am No observ ation record ed. [email or web address] [address], [address] 12/24/2024 22:02:22 Result Notes None recorded. Medical Equipment None Reported. Allergies Allergen ID Allergen Name Allergen Category Reaction Reaction Severity Criticality Documentation Date Start Date Code Code System Note Provider Name and Address Organization Details Recorded Time 93097 Product containin g penicilli n (product) medicatio n Not available Not available Not available 12/24/2024 71348 8001 SNOMED Not Available [employer] - production [...] [degF] 100 % 100 % 67 /min 482279. 608 g 57 /min 160/75 mm[Hg] 123/74 mm[Hg] Not Available [employer] - production 5 19:27:12 Social History None [...] ICD10 Code Diagnosis IMO Codes Diagnosis Note [id number] Antonia Harrison MD [facility] ED Medical [facility] [address] [place] [address] 12/24/2024 19:02:49 12/25/2024 21:09:24 Precordial pain 16936406 R07.2 50429 Health Concerns Section Related Observation LastModified by Organization Detai ls LastModified Time None Recorded Concern Status LastModified by Organization Details LastModified Time None Recorded Advance Directives Directive None Recorded Payers Insurance Date Sequence Insurance Name Policy Number Policy Salazar Covered Member ID Salazar Member ID Guarantor Name 12/24/2024 1 [facility] - DOS ON OR AFTER 2022 - DUAL ELIGIBLE - DETENTION OPTIONS AND ONE CARE (MEDICARE REPLACEMENT/AD VANTAGE - HMO) Jacinda Blancas [id number] Jacinda Blancas Notes Date Note Type Note [...] This test has been updated by the resident care spec, Lilia Chino at (12/24/2024 21:30:52). The changes are marked in bold. EKG test performed. Attachments uploaded as part of this test result can be found under Documents section. .................... .................... .................... .................... .................... .................... .................... . Manager Marketing Sales Note From Lilia Chino: Sent to a [...] warm, dry; 12 lead ECG: uploaded to [employer]; [facility] consulted and pt is advised she needs to be transported to ED for further eval. Pt agrees to transport, but was hesitant to go to ED without doctor's recommendation. 911 called; Allergies verified: PCN; 5 med rights verified; Baby ASA 324mg PO administered. 20g IV placed in left AC. Pt care transferred to [facility]. [facility] Lab Orders: electrocardiogram: Performed .................... .................... .................... .................... .................... .................... .................... . [facility] Consulted: Antonia Harrison .................... .................... .................... .................... .................... .................... .................... . Disposition: Fulfilled Antonia Harrison MD [address] [facility],[address] [facility], [place], [address], CEDRIC JORGENSEN 12/25/2024 17:47:31 OBGyn Episode No OBEpisode recorded.
--- OUTSIDE RECORDS SUMMARY | 2025-02-24 09:49 | XMS_ITS | Encounter Summary ---
Author Organization [facility] Address [address] [place] [address] Phone Care Team Providers Care Product Ambassador Name Role Phone Truong Colon MD Primary Care Provider +1- [phone] Encounter Details Date Type Department Care Team (Late Contact Info) Description 04/10/2024 Documentation Only [facility] [address] [place] [address] Kylie Gabriel [address] [place] [address] Social History Tobacco Use Types [...] [facility] [address] [place] [address] Romero Jimenez MD [address] [place] [address] [place] [address] documented as of this encounter Visit Diagnoses Not on filedocumented in this encounter Care Teams Product Ambassador Relationship Specialty Start Date End Date Truong Colon MD [address] [place] [address] PCP - General Internal Medicine 03/06/23 documented as of this encounter
--- OUTSIDE RECORDS SUMMARY | 2025-02-24 09:49 | XMS_ITS | Encounter Summary ---
Author Organization [facility] Address [address] [place] [address] Phone Care Team Providers Care Park Ranger Name Role Phone Truong Colon MD Primary Care Provider +1- [phone] Encounter Details Date Type Department Care Team ([facility] Contact Info) Description 02/20/2025 Orders Only [facility] [address] [place] [address] Kylie Gabriel [address] [place] [address] Anemia in chronic kidney disease; [...] Services Of [facility] [address] [place] [address] Romero Jimenez MD [address] [facility] [place] [address] documented as of this encounter Visit Diagnoses Diagnosis Anemia in chronic kidney disease Stage 3b chronic kidney disease (HCC) Iron deficiency anemia, not otherwise specified documented in this encounter Care Teams Park Ranger Relationship Specialty Start Date End Date Truong Colon MD [address] [place] [address] PCP - General Internal Medicine 03/06/23 documented as of this encounter
--- OUTSIDE RECORDS SUMMARY | 2025-02-24 09:49 | XMS_ITS | Encounter Summary ---
Author Organization [facility] Address [address] [place] [address] Phone Care Team Providers Care Ultrasonographer Name Role Phone Truong Colon MD Primary Care Provider +1- [phone] Encounter Details Date Type Department Care Team (Late Contact Info) Description 05/27/2024 Documentation Only [facility] [address] [address] Kylie Gabriel [address] [place], [place] [...] [facility] [address] [place] [address] Romero Jimenez MD [address] [place] [address] [place] [address] documented as of this encounter Visit Diagnoses Not on filedocumented in this encounter Care Teams Ultrasonographer Relationship Specialty Start Date End Date Truong Colon MD [address] [place] [address] PCP - General Internal Medicine 03/06/23 documented as of this encounter
--- OUTSIDE RECORDS SUMMARY | 2025-02-24 09:49 | XMS_ITS | Encounter Summary ---
Author Organization [facility] Address [address] [place] [address] Phone Care Team Providers Care Horticulture/Floriculture Teacher Name Role Phone Truong Colon MD Primary Care Provider +1- [phone] Encounter Details Date Type Department Care Team ([facility] Contact Info) Description 11/28/2024 Orders Only [facility] [address] [place] [address] Kylie Gabriel [address] [place] [address] Anemia in chronic kidney disease; [...] Visit [facility] [address] [place] [address] Romero Jimenez MD [address] [facility] [place] [address] documented as of this encounter Visit Diagnoses Diagnosis Anemia in chronic kidney disease Stage 3b chronic kidney disease (HCC) Iron deficiency anemia, not otherwise specified documented in this encounter Care Teams Horticulture/Floriculture Teacher Relationship Specialty Start Date End Date Truong Colon MD [address] [place] [address] PCP - General Internal Medicine 03/06/23 documented as of this encounter
--- OUTSIDE RECORDS SUMMARY | 2025-02-24 09:49 | XMS_ITS | Encounter Summary ---
Author Organization [facility] Address [address] [place] [address] Phone Care Team Providers Care Department Store General Manager Name Role Phone Truong Colon MD Primary Care Provider +1- [phone] Encounter Details Date Type Department Care Team (Late Contact Info) Description 11/09/2021 Documentation Only [facility] [address] [place] [address] Dimitris Suarez PA [address] [place] [address] Social History Tobacco Use Types [...] [facility] [address] [place] [address] Romero Jimenez MD [address] [facility] [place] [address] documented as of this encounter Visit Diagnoses Not on filedocumented in this encounter Care Teams Department Store General Manager Relationship Specialty Start Date End Date Truong Colon MD [address] [place] [address] PCP - General Internal Medicine 03/06/23 documented as of this encounter
--- OUTSIDE RECORDS SUMMARY | 2025-02-24 09:49 | XMS_ITS | Patient Health Record ---
Author Organization [facility] Address [address] [place] [address] Care Team Providers Care Assistant Athletic Trainer Name Role Phone Radha Pena Primary Care Provider UnavailTimoteo Sneed Unavailable [phone] Allergies Allergen (clinical drug ingredient) Drug/Non Drug [...] Problem Screening for malignant neoplasm of colon (142554711) Encounter for screening for malignant neoplasm of colon (Z12.11) Active confirmed Problem Screening for malignant neoplasm of rectum (087893779) Encounter for screening for malignant neoplasm of rectum (Z12.12) Active confirmed Problem Gastroesophageal reflux disease (015191184) Gastroesophageal reflux disease, esophagitis presence not specified (K21.9) Active confirmed Problem Constipation (03618811) Constipation, unspecified constipation type (K59.00) Active confirmed Plan Of Treatment Future Test Test Name Order Date UPPER GI ENDOSCOPY 11/30/2015 COLONOSCOPY 11/30/2015 Insurance Providers Payer Name Payer Address Payer Phone Subscriber Number Group Number Insured Name Patient Relationship to Insured Coverage Start Date Coverage End Date [facility] [address] [place] [address] [id number] NOE SALDIVAR Self - patient is the insured Medical (General) History Medical History History ICD Code Hypertension Kidney disease--mild renal insuffciency- -GFR of 40--Dr. Meza Denies NC,DM,CVA,Lung disease Neg. colonoscopy in 2004 exc ept for diverticulosis and internal hemorrhoids-- Neg. EGD in 2004--Dr. Bear Breast cancer on the left in 2013--lumpe ctomy and XRT Hypothyroidism GERD Surgical History Surgery Date(Month/Year) Cholecystectomy--Dr. Banks 2014 Bladder suspension Left lumpectomy for breast cancer in 4
--- OUTSIDE RECORDS SUMMARY | 2025-02-24 09:49 | XMS_ITS | Encounter Summary ---
Author Organization [facility] Address [address] [place] [address] Phone Care Team Providers Care Auditing Clerk Name Role Phone Truong Colon MD Primary Care Provider +1- [phone] Encounter Details Date Type Department Care Team (Late Contact Info) Description 08/04/2024 Documentation Only [facility] [address] [place] [address] Kylie Gabriel [address] [place] [address] Social History Tobacco Use Types [...] [facility] [address] [place] [address] Romero Jimenez MD [address] [place] [address] [place] [address] documented as of this encounter Visit Diagnoses Not on filedocumented in this encounter Care Teams Auditing Clerk Relationship Specialty Start Date End Date Truong Colon MD [address] [place] [address] PCP - General Internal Medicine 03/06/23 documented as of this encounter
--- OUTSIDE RECORDS SUMMARY | 2025-02-24 09:49 | XMS_ITS | Encounter Summary ---
Author Organization [facility] Address [address] [place] [address] Phone Care Team Providers Care Assistant Nurse Manager Name Role Phone Truong Colon MD Primary Care Provider +1- [phone] Encounter Details Date Type Department Care Team ([facility] Contact Info) Description 12/26/2024 Orders Only [facility] [address] [place] [address] Kylie Gabriel [address] [place] [address] Anemia in chronic kidney disease; [...] [facility] [place] [address] Romero Jimenez MD [address] [facility] [address] [place] [address] documented as of this encounter Visit Diagnoses Diagnosis Anemia in chronic kidney disease Stage 3b chronic kidney disease (HCC) Iron deficiency anemia, not otherwise specified documented in this encounter Care Teams Assistant Nurse Manager Relationship Specialty Start Date End Date Truong Colon MD [address] [place] [address] PCP - General Internal Medicine 03/06/23 documented as of this encounter
--- OUTSIDE RECORDS SUMMARY | 2025-02-24 09:49 | XMS_ITS | Encounter Summary ---
Author Organization [facility] Address [address] [place] [address] Phone Care Team Providers Care Die Cast Die Maker Name Role Phone Truong Colon MD Primary Care Provider +1- [phone] Encounter Details Date Type Department Care Team (Late Contact Info) Description 04/24/2024 Documentation Only [facility] [address] [place] [address] Kylie Gabriel [address] [place] [address] Social History Tobacco Use Types [...] [facility] [address] [place] [address] Romero Jimenez MD [address] [place] [address] [place] [address] documented as of this encounter Visit Diagnoses Not on filedocumented in this encounter Care Teams Die Cast Die Maker Relationship Specialty Start Date End Date Truong Colon MD [address] [place] [address] PCP - General Internal Medicine 03/06/23 documented as of this encounter
--- OUTSIDE RECORDS SUMMARY | 2025-02-24 09:49 | XMS_ITS | Encounter Summary ---
Author Organization [facility] Address [address] [place] [address] Phone Care Team Providers Care Policy Officer Name Role Phone Truong Colon MD Primary Care Provider +1- [phone] Encounter Details Date Type Department Care Team (Late Contact Info) Description 04/10/2024 Documentation Only [facility] [address] [place] [address] Kylie Gabriel [address] [place] [address] Social History Tobacco Use Types [...] [facility] [address] [place] [address] Romero Jimenez MD [address] [place] [address] [place] [address] documented as of this encounter Visit Diagnoses Not on filedocumented in this encounter Care Teams Policy Officer Relationship Specialty Start Date End Date Truong Colon MD [address] [place] [address] PCP - General Internal Medicine 03/06/23 documented as of this encounter
--- OUTSIDE RECORDS SUMMARY | 2025-02-24 09:50 | XMS_ITS | Encounter Summary ---
Author Organization [facility] Address [address] [place] [address] Phone Care Team Providers Care Journalism Instructor Name Role Phone Truong Colon MD Primary Care Provider +1- [phone] Encounter Details Date Type Department Care Team ([facility] Contact Info) Description 01/23/2025 Orders Only [facility] [address] [place] [address] Kylie Gabriel [address] [place] [address] Anemia in chronic kidney disease; [...] Services Of [facility] [address] [place] [address] Romero Jimenez MD [address] [facility] [place] [address] documented as of this encounter Visit Diagnoses Diagnosis Anemia in chronic kidney disease Stage 3b chronic kidney disease (HCC) Iron deficiency anemia, not otherwise specified documented in this encounter Care Teams Journalism Instructor Relationship Specialty Start Date End Date Truong Colon MD [address] [place] [address] PCP - General Internal Medicine 03/06/23 documented as of this encounter
--- OUTSIDE RECORDS SUMMARY | 2025-02-24 09:50 | XMS_ITS | Clinical Summary ---
Author Organization [facility] Address [address] [place] [address] Phone Care Team Providers Care Business Director Name Role Phone Truong Colon MD Primary Care Provider +1 [phone] Allergies Active Allergy Reactions Criticality Noted Date [...] left breast in female, estrogen receptor positive ([facility] V24, [facility] V28) 07/03/2023 Iron deficiency anemia 05/18/2022 Acquired hypothyroidism 03/28/2017 Gastroesophageal reflux disease without esophagi tis 03/28/2017 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 Surgical History Surgery Date Site/Laterality Comments LUMBAR DISC SURGERY PROCEDURE:LUMBAR DISC SURGERY Medical History Medical History Date Comments Malignant neoplasm of upper- outer quadrant of left female breast ([facility] V24, [facility] V28) DX:Malignant neoplasm of upp [...] 11/04/2025 10:30 AM EDT Office Visit [facility] Hematology Oncology [address] [place] [id number] Jennifer Ca MD [address] [place] [address] Health Maintenance Due Date Last [...] mmol/L LAB CHEMISTRY METHOD 10/31/2024 11:08 AM [facility] Potassium 4.7 3.5 - 5.5 mmol/L LAB CHEMISTRY METHOD 10/31/2024 11:08 AM [facility] Chloride 109 96 - 110 mmol/L LAB CHEMISTRY METHOD 10/31/2024 11:08 AM [facility] CO2 30 21 - 32 mmol/L LAB CHEMISTRY METHOD 10/31/2024 11:08 AM [facility] Anion Gap 3 3 - 11 LAB CHEMISTRY METHOD 10/31/2024 11:08 AM [facility] Glucose 78 70 - 100 mg/dL LAB CHEMISTRY METHOD 10/31/2024 11:08 AM [facility] BUN 11 5 - 25 mg/dL LAB CHEMISTRY METHOD 10/31/2024 11:08 AM [facility] Creatinine 0.92 0.50 - 1.10 mg/dL LAB CHEMISTRY METHOD 10/31/2024 11:08 AM [facility] eGFR 63 >=60 mL/min/1. 73m2 LAB CHEMISTRY METHOD 10/31/2024 11:08 AM EDT [facility] Comment:Calculation based on the Chronic Kidney Disease Epidemiology Collaboration (CKD-EPI) equation refit without adjustment for race. BUN/Creatinine Ratio 12.0 LAB CHEMISTRY METHOD 10/31/2024 11:08 AM EDT [facility] Calcium 8.9 8.5 - 10.5 mg/dL LAB CHEMISTRY METHOD 10/31/2024 11:08 AM EDT [facility] Blood Venous blood specimen / Unknown Venipuncture / Unknown 10/31/2024 7:20 AM EDT 10/31/2024 10:27 AM EDT us Ally Castañeda MD LAB BLOOD ORDERABLES Final Resul t [facility] [address] [place] [address], * DXA BONE DENSITY STUDY 1+ SITS AXIAL SKEL (10/07/2021 10:23 AM EDT) Anatomical Region Laterality Modality Bone Densitometr y 05/10/2021 11:5 1 AM EST Narrative 10/07/2021 4:32 PM EDT Clinical history: other osteoporosis Scans of the lumbar spine and hips were performed on a [employer] ProdigQui.lt fan beam bone densitometer. Bone mineral density [...] spine and hips were performed on a [employer] beam bone densitometer. Bone mineral density measurements [...] Group ID:[id number] Type:Not on file Address: [address] [place] [address] Care Teams Business Director Relationship Specialty Start Date End Date Truong Colon MD [address] [place] [address] [address] [place], [place] PCP - General 05/19/22
--- OUTSIDE RECORDS SUMMARY | 2025-02-24 09:50 | XMS_ITS | Encounter Summary ---
Author Organization [facility] [place] [address] Care Team Providers Care Corn Husker Name Role Phone Truong Colon MD Primary Care Provider Encounter Details Date Type Department Care Team (Late Contact Info) Description 10/30/2024 Lab Requisition [facility] - Main Lab [address] [facility] [place] [address] Ally Castañeda MD [address] [place] [address] Spinal stenosis, site unspecified; Chronic [...] Visit [facility] Hematology Oncology [address] [place] [address] Jennifer Ca MD [address] [place] [address] [phone] (work) documented as of this encounter Procedures [...] mg/dL LAB CHEMISTRY METHOD 10/31/2024 11:08 AM [facility] BUN 11 5 - 25 mg/dL LAB CHEMISTRY METHOD 10/31/2024 11:08 AM [facility] Creatinine 0.92 0.50 - 1.10 mg/dL LAB CHEMISTRY METHOD 10/31/2024 11:08 AM [facility] eGFR 63 >=60 mL/min/1. 73m2 LAB CHEMISTRY METHOD 10/31/2024 11:08 AM [facility] Comment:Calculation based on the Chronic Kidney Disease Epidemiology Collaboration (CKD-EPI) equation refit without adjustment for race. BUN/Creatinine Ratio 12.0 LAB CHEMISTRY METHOD 10/31/2024 11:08 AM EDT [facility] Calcium 8.9 8.5 - 10.5 mg/dL LAB CHEMISTRY METHOD 10/31/2024 11:08 AM [facility] Blood Venous blood specimen / Unknown Venipuncture / Unknown 10/31/2024 7:20 AM EDT 10/31/2024 10:27 AM EDT us Ally Castañeda MD LAB BLOOD ORDERABLES Final Resul t [facility] [address] [place] [address], * (ABNORMAL) Complete blood count (10/31/2024 7:20 [...] 10/31/2024 10:38 AM EDT [facility] RDW 15.1(H) 11.0 - 15.0 [...] Resul t [facility] [address] [place] [address], documented in this encounter Visit Diagnoses Diagnosis Spinal stenosis, site unspecified Chronic kidney disease, unspecified documented in this encounter Care Teams Corn Husker Relationship Specialty Start Date End Date Truong Colon MD [address] [facility] [address] [place] PCP - General 05/19/22 documented as of this encounter
--- OUTSIDE RECORDS SUMMARY | 2025-02-24 09:50 | XMS_ITS | Patient Health Record ---
Author Organization [facility] [place] Address [address] [place] [address] Care Team Providers Care Count Team Clerk Name Role Phone Isaiah DURAN, [place] Primary Care Provider Boby Laguerre Unavailable [phone] Allergies Allergen (clinical drug ingredient) Drug/Non Drug [...] Problem Acquired hammer toe of right foot (2607668283793271 ) Other hammer toe(s) (acquired), right foot (M20.41) Active confirmed Response to treatment, Improvemen t Problem Acquired hammer toe of left foot (0688177690137509 ) Other hammer toe(s) (acquired), left foot (M20.42) Active confirmed Response to treatment, Improvemen t Problem Bilateral atherosclerosis of arteries of lower limbs (disorder) ([id number]) Atherosclerosis of council artery of both lower extremities, with unspecified presence of clinical manifestation (I70.203) Active confirmed Vital Signs Blood pressure diastolic 64 mm Hg 12/15/2024 Height 5 ft 9in in 12/15/2024 Blood pressure systolic 127 mm Hg 12/15/2024 Weight 230 lbs 12/15/2024 BMI 33.96 kg/m2 12/15/2024 Procedures Procedure Date Ordered Date Performed Result Body Sit e 21522-XTCXZSV NAIL, 6 OR MORE 05/05/2024 N/A 06373-UPBT SKIN LESIONS, OVER 4 05/05/2024 N/A 88575-TEDTMMI NAIL, 6 OR MORE 07/31/2024 N/A 58206-IFYD SKIN LESIONS, OVER 4 07/31/2024 N/A 41678-LZDJQCQ NAIL, 6 OR MORE 12/15/2024 N/A 58842-XYPP SKIN LESIONS, OVER 4 12/15/2024 N/A Encounters Encounter Location Date Provider Diagnosis [address] [address] 05/05/2024 Boby Chapman Atherosclerosis of council artery of both lower extremities, with unspecified presence of clinical manifestation I70.203 ; Tinea unguium B35.1 ; Pain in right toe(s) M79.674 ; Pain in left toe(s) M79.675 ; Other hammer toe(s) (acquired), right foot M20.41 and Other hammer toe(s) (acquired), left foot M20.[address] [address] 07/31/2024 Boby Chapman Atherosclerosis of council artery of both lower extremities, with unspecified presence of clinical manifestation I70.203 ; Tinea unguium B35.1 ; Pain in right toe(s) M79.674 ; Pain in left toe(s) M79.675 ; Other hammer toe(s) (acquired), right foot M20.41 and Other hammer toe(s) (acquired), left foot M20.[address] [address] 12/15/2024 Boby Chapman Atherosclerosis of council artery of both lower extremities, with unspecified presence of clinical manifestation I70.203 ; Tinea unguium B35.1 ; Pain in right toe(s) M79.674 and Pain in left toe(s) M79.[address] [address] 10/30/2024 Boby Chapman Assessments Encounter Date Diagnosis (ICD Code) Assessment Notes Treatment Notes Treatment Clinical Notes Section Notes 05/05/2024 Tinea unguium (ICD-10 - B35.1) 05/05/2024 Atherosclerosis of council artery of both lower extremities, with unspecified presence of clinical manifestation (ICD-10 - I70.203) 07/31/2024 Tinea unguium (ICD-10 - B35.1) 07/31/2024 Atherosclerosis of council artery of both lower extremities, with unspecified presence of clinical manifestation (ICD-10 - I70.203) 12/15/2024 Tinea unguium (ICD-10 - B35.1) 12/15/2024 Atherosclerosis of council artery of both lower extremities, with unspecified [...] Treatment Pending Test Test Name Order Date 54644-GMWLNUN NAIL, 6 OR MORE 03/21/2017 89846-GCRESPE NAIL, 6 OR MORE 05/30/2017 83702-VTHBZBD NAIL, 6 OR MORE 08/06/2017 30368-EXGTJJH NAIL, 6 OR MORE 10/25/2017 22843-BAUJWCG NAIL, 6 OR MORE 03/20/2018 66901-YFFIGNZ NAIL, 6 OR MORE 06/13/2018 61891-IKZEAHF NAIL, 6 OR MORE 01/07/2018 48427-GPCRVEH NAIL, 6 OR MORE 08/14/2018 62288-SKZZMZW NAIL, 6 OR MORE 10/17/2018 10467-PSCIAML NAIL, 6 OR MORE 01/16/2019 20610-KZATMUY NAIL, 6 OR MORE 04/03/2019 92468-QXUTJMQ NAIL, 6 OR MORE 06/16/2019 14225-TUTTIMK NAIL, 6 OR MORE 08/27/2019 09251-FLZJUUI NAIL, 6 OR MORE 12/18/2019 73107-WYZNHGZ NAIL, 6 OR MORE 05/06/2020 26172-FDQHVML NAIL, 6 OR MORE 07/15/2020 49083-TTARHEH NAIL, 6 OR MORE 09/29/2020 61672-SGLAYWD NAIL, 6 OR MORE 12/02/2020 85697-BBNBTMA NAIL, 6 OR MORE 02/17/2021 05534-DCEZXEN NAIL, 6 OR MORE 06/16/2021 14081-PGJFGOK NAIL, 6 OR MORE 08/29/2021 21331-OBSIZEF NAIL, 6 OR MORE 11/10/2021 70470-TPPKCMV NAIL, 6 OR MORE 01/19/2022 71797-TOMOUSQ NAIL, 6 OR MORE 04/05/2022 78293-DEODNLX NAIL, 6 OR MORE 06/15/2022 46068-FQAQMXR NAIL, 6 OR MORE 08/24/2022 19367-OBYICDQ NAIL, 6 OR MORE 11/16/2022 65416-YOFOXNV NAIL, 6 OR MORE 01/25/2023 73630-LNMMJSD NAIL, 6 OR MORE 04/11/2023 19862-AZLWLAW NAIL, 6 OR MORE 06/27/2023 80319-ZAQBWSI NAIL, 6 OR MORE 08/30/2023 65331-ZPCVUPM NAIL, 6 OR MORE 11/08/2023 25004-GFHOXYN NAIL, 6 OR MORE 01/24/2024 54587-RQRLJXC NAIL, 6 OR MORE 05/05/2024 29262-OKYWINN NAIL, 6 OR MORE 07/31/2024 25900-CLRQYKQ NAIL, 6 OR MORE 12/15/2024 92604-QYGFNHR NAIL, 1-5 11/01/2016 96144-QSDLQTD NAIL, 1-5 01/03/2017 67130-JBLSDYW NAIL, 1-5 11/15/2015 69484-GVRLTMJ NAIL, -01/24/2016 12632-EUDLWWS NAIL, -04/05/2016 35924-KFGOLLK NAIL, -06/14/2016 16269-MFMOJJB NAIL, 04-2708/23/2016 25063-Tcmy Destruction, 05-0611/01/2016 24136-Lhzj Destruction, 05-0601/03/2017 78503-Uipy Destruction, 05-0603/21/2017 37832-Faar Destruction, 05-0605/30/2017 01109-Kwha Destruction, 05-0608/06/2017 50959-Chjd Destruction, 05-0605/06/2020 27182-Saca Destruction, 05-0612/18/2019 46871-Bpeo Destruction, 05-0608/27/2019 64923-Jymi Destruction, 05-0606/16/2019 96969-Qqjc Destruction, 05-0604/03/2019 17225-Beuv Destruction, 05-0601/16/2019 23829-Jzut Destruction, 05-0610/17/2018 11034-Ycnp Destruction, 05-0608/14/2018 19062-Rkys Destruction, 05-0606/13/2018 72665-Yphd Destruction, 05-0610/25/2017 55722-Dlef Destruction, 05-0601/07/2018 31566-Zlym Destruction, 05-0608/30/2023 77364-Mkbh Destruction, 05-0606/27/2023 36376-Wtxd Destruction, 05-0604/11/2023 16358-Dalw Destruction, 05-0601/25/2023 36250-Dauc Destruction, 05-0611/16/2022 24896-Llit Destruction, 05-0608/24/2022 72779-Whnk Destruction, 05-0606/15/2022 89403-Nkqg Destruction, 05-0604/05/2022 02614-Xcli Destruction, 05-0601/19/2022 34751-Bivb Destruction, 05-0606/16/2021 68246-Jwgx Destruction, 05-0603/20/2018 32864-Bqko Destruction, 05-0611/10/2021 31052-Nzgi Destruction, 05-0608/29/2021 35382-Bmjl Destruction, 1-14 02/17/2021 27799-Hcph Destruction, 1-14 12/02/2020 50480-Khmq Destruction, 1-14 09/29/2020 23125-Ydul Destruction, 1-14 07/15/2020 23072-Jomi Destruction, 1-14 01/24/2024 24087-Mhtq Destruction, 1-14 11/08/2023 71582-Gysfaqva Plate 11/08/2023 68900-Ehaheijw Plate 09/29/2020 88426-Qxoislws Plate 12/02/2020 93024-Vgpdshmb Plate 02/17/2021 15591-Tnmnvrmc Plate 06/16/2021 58272-Ouoawyew Plate 08/29/2021 91322-Pvckkkwt Plate 11/10/2021 88199-Tfznhwtg Plate 01/19/2022 51671-Ghzndyoo Plate 04/05/2022 90929-Iwqgxvem Plate 06/15/2022 42126-Hkbcdfdh Plate 08/24/2022 40738-Sfsuppli Plate 11/16/2022 70046-Jcezshrp Plate 01/25/2023 58669-Jpfpxdei Plate 04/11/2023 00174-Xbirongj Plate 06/27/2023 11990-Dqcrdiis Plate 08/30/2023 59616-Hgqvnlhq Plate 12/18/2019 66033-Bbstlpyv Plate 05/06/2020 38897-Dlwjdefh Plate 07/15/2020 96620-Dmkutnpm Plate 11/01/2016 74195-Psqiteuj Plate Each Additional 12/2023 53557-Tewbqsbx Plate Each Additional 09/2023 50268-Ycxouuhz Plate Each Additional 54665-Ulohyzmv Plate Each Additional 08/2022 93269-Vwajdsqh Plate Each Additional 71771-Nujvmtgd Plate Each Additional 07/2022 51365-Ovuinddi Plate Each Additional 47920-Zxnwnlzm Plate Each Additional 00395-Wcwjlsbs Plate Each Additional 58151-Vplmvzdk Plate Each Additional 41646-TAAE SKIN LESIONS, OVER 4 11/08/19 77576-RZIH SKIN LESIONS, OVER 4 01/24/20 41051-IZUT SKIN LESIONS, OVER 4 05/05/19 94914-UDJB SKIN LESIONS, OVER 4 12/16/19 07126-TXJY SKIN LESIONS, OVER 4 08/01/19 68828-TOPH SKIN LESIONS, OVER 4 06/16/19 75824-BPUU SKIN LESIONS, OVER 4 01/20/20 40455-IHWB SKIN LESIONS, OVER 4 11/11/19 75372-WNPK SKIN LESIONS, OVER 4 08/30/19 99673-DSSH SKIN LESIONS, OVER 4 02/18/20 39741-DLHX SKIN LESIONS, OVER 4 12/03/19 45366-VUHY SKIN LESIONS, OVER 4 09/30/19 87866-KTRQ SKIN LESIONS, OVER 4 07/16/19 02300-KNEC SKIN LESIONS, OVER 4 04/05/20 78305-IMAX SKIN LESIONS, OVER 4 06/15/19 35132-KZIQ SKIN LESIONS, OVER 4 08/25/19 96447-UKVV SKIN LESIONS, OVER 4 11/17/19 01163-PTHQ SKIN LESIONS, OVER 4 01/26/20 22664-IQJT SKIN LESIONS, OVER 4 04/11/20 76773-KCNF SKIN LESIONS, OVER 4 06/27/19 11859-GBWR SKIN LESIONS, OVER 4 08/30/19 18407-WDVC SKIN LESIONS, OVER 4 03/21/20 53364-FUNL SKIN LESIONS, OVER 4 01/04/20 17 70503-PNFL SKIN LESIONS, OVER 4 10/26/19 18 28869-YPSC SKIN LESIONS, OVER 4 08/07/19 18 84771-QZRW SKIN LESIONS, OVER 4 05/30/19 18 94110-ZYTR SKIN LESIONS, OVER 4 11/02/19 17 62077-KUHJ SKIN LESIONS, OVER 4 06/14/19 17 74042-INYN SKIN LESIONS, OVER 4 04/05/20 16 62650-RTDN SKIN LESIONS, OVER 4 08/24/19 58174-EWQC SKIN LESIONS, OVER 4 01/24/20 73949-PRVU SKIN LESIONS, OVER 4 11/15/19 24418-FCCU SKIN LESIONS, OVER 4 08/16/19 15281-FXBY SKIN LESIONS, OVER 4 05/06/19 61588-LTCG SKIN LESIONS, OVER 4 08/27/20 20 66537-CWSG SKIN LESIONS, OVER 4 08/27/19 20 33824-LDHF SKIN LESIONS, OVER 4 04/03/20 19 24360-ANNS SKIN LESIONS, OVER 4 06/16/19 20 21848-UJMA SKIN LESIONS, OVER 4 01/08/20 18 42195-QVTD SKIN LESIONS, OVER 4 06/13/19 19 04824-CWKK SKIN LESIONS, OVER 4 08/15/19 19 13785-PFIJ SKIN LESIONS, OVER 4 03/20/20 18 63577-KUIM SKIN LESIONS, OVER 4 10/18/19 19 32768-HQHJ SKIN LESIONS, OVER 4 01/17/20 19 U3145-WFGHSFMD DYSTROPHIC NAILS ANY # H5496-XGQEYTDU DYSTROPHIC NAILS ANY # J6457-DBTAEXCN DYSTROPHIC NAILS ANY # A8784-CNTBXOXS DYSTROPHIC NAILS ANY # O7474-KMHLOYNL DYSTROPHIC NAILS ANY # U3721-WPBQZXEZ DYSTROPHIC NAILS ANY # T4538-DJCCJJWB DYSTROPHIC NAILS ANY # G9388-ULXLPCFE DYSTROPHIC NAILS ANY # Next Appt Details Provider Name:Boby Chapman , 03/30/2025 01:30:00 PM, [address] [facility], [place] [address], [place], [address], Insurance Providers Payer Name Payer Address Payer Phone Subscriber Number Group Number Insured Name Patient Relationship to Insured Coverage Start Date Coverage End Date [facility] [employer] Claims [address] [place] [id number] Jacinda Benavidez Self - patient is the insured Medical (General) History Medical History History ICD Code Anemia Anxiety Arthritis Back,Hip,and Knee pain Cataracts High blood pressure Liver disease Reflux Thyroid disorder Surgical History Surgery Date(Month/Year) gall bladder 12/11/2014 Unspecified Right Hand SX 03/13/17 Hospitalization History Reason Date(Month/Year) C- back pain 10/03/24
--- OUTSIDE RECORDS SUMMARY | 2025-02-24 09:50 | XMS_ITS | Encounter Summary ---
Author Organization [facility] Address [address] [place] [address] Phone Care Team Providers Care Car Hop Name Role Phone Truong Colon MD Primary Care Provider +1- [phone] Encounter Details Date Type Department Care Team (Late Contact Info) Description 05/04/2022 Documentation Only [facility] [address] [place] [address] Kylie Gabriel [address] [place] [address] Social History Tobacco Use Types [...] [facility] [address] [place] [address] Romero Jimenez MD [address] [place] [address] [place] [address] documented as of this encounter Visit Diagnoses Not on filedocumented in this encounter Care Teams Car Hop Relationship Specialty Start Date End Date Truong Colon MD [address] [place] [address] PCP - General Internal Medicine 03/06/23 documented as of this encounter
--- OUTSIDE RECORDS SUMMARY | 2025-02-24 09:50 | XMS_ITS | Encounter Summary ---
Author Organization [facility] Address [address] [place] [address] Phone Care Team Providers Care Rubber Heel And Sole Press Tender Name Role Phone Truong Colon MD Primary Care Provider +1- [phone] Encounter Details Date Type Department Care Team (Late Contact Info) Description 04/11/2022 Documentation Only [facility] [address] [place] [address] Kylie Gabriel [address] [place] [address] Social History Tobacco Use Types [...] [facility] [address] [place] [address] Romero Jimenez MD [address] [place] [address] [place] [address] documented as of this encounter Visit Diagnoses Not on filedocumented in this encounter Care Teams Rubber Heel And Sole Press Tender Relationship Specialty Start Date End Date Truong Colon MD [address] [place] [address] PCP - General Internal Medicine 03/06/23 documented as of this encounter
--- OUTSIDE RECORDS SUMMARY | 2025-02-24 09:50 | XMS_ITS | Clinical Summary ---
Author Organization [facility] Address [address] [place] [address] Care Team Providers Care Admissions Manager Rn Name Role Phone Truong Colon MD Primary Care Provider +1- [phone] Allergies Active Allergy Reactions Criticality Noted Date [...] age to complete this topic Care Teams Admissions Manager Rn Relationship Specialty Start Date End Date Truong Colon MD [address] [place] [address] PCP - General Internal Medicine 05/19/22
--- OUTSIDE RECORDS SUMMARY | 2025-02-24 09:50 | XMS_ITS | Encounter Summary ---
Author Organization [facility] Address [address] [place] [address] Phone Care Team Providers Care Account Manager Employee Benefits Name Role Phone Truong Colon MD Primary Care Provider +1- [phone] Encounter Details Date Type Department Care Team (Late Contact Info) Description 10/26/2023 Documentation Only [facility] [address] [place] [address] Kylie Gabriel [address] [place] [address] Social History Tobacco Use Types [...] [facility] [address] [place] [address] Romero Jimenez MD [address] [place] [address] [place] [address] documented as of this encounter Visit Diagnoses Not on filedocumented in this encounter Care Teams Account Manager Employee Benefits Relationship Specialty Start Date End Date Truong Colon MD [address] [place] [address] PCP - General Internal Medicine 03/06/23 documented as of this encounter
--- OUTSIDE RECORDS SUMMARY | 2025-02-24 09:50 | XMS_ITS | Encounter Summary ---
Author Organization [facility] Address [address] [place] [address] Phone Care Team Providers Care Nuclear Radiation Engineer Name Role Phone Truong Colon MD Primary Care Provider +1- [phone] Encounter Details Date Type Department Care Team (Late Contact Info) Description 04/14/2022 Documentation Only [facility] [address] [place] [address] Eligio Meza MD [address] [place] [address] [place] [address] Social History Tobacco Use Types [...] [facility] [address] [place] [address] Romero Jimenez MD [address] [place] [address] [place] [address] documented as of this encounter Visit Diagnoses Not on filedocumented in this encounter Care Teams Nuclear Radiation Engineer Relationship Specialty Start Date End Date Truong Colon MD [address] [place] [address] PCP - General Internal Medicine 03/06/23 documented as of this encounter
--- OUTSIDE RECORDS SUMMARY | 2025-02-24 09:50 | XMS_ITS | Encounter Summary ---
Author Organization [facility] Address [address] [place] [address] Phone Care Team Providers Care Dowel Pin Worker Name Role Phone Truong Colon MD Primary Care Provider +1- [phone] Encounter Details Date Type Department Care Team (Late Contact Info) Description 10/03/2024 Orders Only [facility] [address] [place] [address] Kylie Gabriel [address] [place] [address] Anemia in chronic kidney disease; [...] Visit [facility] [address] [place] [address] Romero Jimenez MD [address] [facility] [place] [address] documented as of this encounter Visit Diagnoses Diagnosis Anemia in chronic kidney disease Stage 3b chronic kidney disease (HCC) Iron deficiency anemia, not otherwise specified documented in this encounter Care Teams Dowel Pin Worker Relationship Specialty Start Date End Date Truong Colon MD [address] [place] [address] PCP - General Internal Medicine 03/06/23 documented as of this encounter
--- OUTSIDE RECORDS SUMMARY | 2025-02-24 09:50 | XMS_ITS | Encounter Summary ---
Author Organization [facility] Address [address] [place] [address] Phone Care Team Providers Care Park Police Name Role Phone Truong Colon MD Primary Care Provider +1- [phone] Encounter Details Date Type Department Care Team (Late Contact Info) Description 06/03/2024 Documentation Only [facility] [address] [place] [address] Kylie Gabriel [address] [place] [address] Social History Tobacco Use Types [...] [facility] [address] [place] [address] Romero Jimenez MD [address] [place] [address] [place] [address] documented as of this encounter Visit Diagnoses Not on filedocumented in this encounter Care Teams [employer] Relationship Specialty Start Date End Date Truong Colon MD [address] [place] [address] PCP - General Internal Medicine 03/06/23 documented as of this encounter
--- OUTSIDE RECORDS SUMMARY | 2025-02-24 09:50 | XMS_ITS | Encounter Summary ---
Author Organization [facility] Address [address] [place] [address] Phone Care Team Providers Care Flavoring Machine Operator Name Role Phone Truong Colon MD Primary Care Provider +1- [phone] Encounter Details Date Type Department Care Team (Late Contact Info) Description 10/29/2023 Documentation Only [facility] [address] [place] [address] Kylie Gabriel [address] [place] [address] Social History Tobacco Use Types [...] [facility] [address] [place] [address] Romero Jimenez MD [address] [place] [address] [place] [address] documented as of this encounter Visit Diagnoses Not on filedocumented in this encounter Care Teams Flavoring Machine Operator Relationship Specialty Start Date End Date Truong Colon MD [address] [place] [address] PCP - General Internal Medicine 03/06/23 documented as of this encounter
--- OUTSIDE RECORDS SUMMARY | 2025-02-24 09:50 | XMS_ITS ---
Author Organization [facility] Address [address] [place] [address] Care Team Providers Care Getter Welder Name Role Phone Truong Colon MD Primary Care Provider +1- [phone] Active Problems Problem Noted Date Diagnosed Date Iron deficiency anemia 05/18/2022 Malignant neoplasm of upper- outer quadrant of left breast in female, estrogen receptor positive 03/28/2017 Gastroesophageal reflux disease without esophagi tis 03/28/2017 Acquired hypothyroidism 03/28/2017 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 Current Oncology Plans No current plan information found. Past Plans Radiation Treatments * No radiation treatments are documented for this patient in [facility]. Treatments may have been administered in another system.
--- OUTSIDE RECORDS SUMMARY | 2025-02-24 09:50 | XMS_ITS | Encounter Summary ---
Author Organization [facility] Address [address] [place] [address] Phone Care Team Providers Care Real Estate Coordinator Name Role Phone Truong Colon MD Primary Care Provider +1- [phone] Encounter Details Date Type Department Care Team ([facility] Contact Info) Description 09/05/2024 Orders Only [facility] [address] [place] [address] Kylie Gabriel [address] [place] [address] Anemia in chronic kidney [...] And [facility] [address] [place] [address] Romero Jimenez MD [address] [facility] [place] [address] documented as of this encounter Visit Diagnoses Diagnosis Anemia in chronic kidney disease Stage 3b chronic kidney disease (HCC) Iron deficiency anemia, not otherwise specified documented in this encounter Care Teams Real Estate Coordinator Relationship Specialty Start Date End Date Truong Colon MD [address] [place] [address] PCP - General Internal Medicine 03/06/23 documented as of this encounter
--- OUTSIDE RECORDS SUMMARY | 2025-02-24 09:51 | XMS_ITS | Encounter Summary ---
Author Organization [facility] [place], Address [address] [place] [address] Phone Care Team Providers Care Rawhide Bone Roller Name Role Phone Truong Colon MD Primary Care Provider +1- [phone] Encounter Details Date Type Department Care Team (Late Contact Info) Description 01/21/2024 Orders Only [facility] [address] [place] [address] Dimitris Suarez PA [address] [place] [address] [place] [address] Stage 3a chronic kidney disease [...] [facility] [address] [place] [address] Romero Jimenez MD [address] [place] [address] [place] [address] documented as of this encounter Visit Diagnoses Diagnosis Stage 3a chronic kidney disease (HCC) Essential hypertension Peripheral vascular disease (HCC) Peripheral vascular disease Renal osteodystrophy documented in this encounter Care Teams Rawhide Bone Roller Relationship Specialty Start Date End Date Truong Colon MD [address] [place] [address] PCP - General Internal Medicine 03/06/23 documented as of this encounter
--- OUTSIDE RECORDS SUMMARY | 2025-02-24 09:51 | XMS_ITS | Encounter Summary ---
Author Organization [facility] [place] [address] Care Team Providers Care Asphalt Layer Name Role Phone Truong Colon MD Primary Care Provider Encounter Details Date Type Department Care Team (Late Contact Info) Description 10/22/2024 Lab Requisition [facility] - Main Lab [address] [facility] [place] [address] Ally Castañeda MD [address] [place] [address] Spinal stenosis, site unspecified; Chronic [...] Description 11/04/2025 10:30 AM EDT Office Visit [facility] Hematology Oncology [address] [place] [address] Jennifer Ca MD [address] [place] [address] [phone] (work) documented as of this encounter Procedures [...] LAB CHEMISTRY METHOD 10/23/2024 11:28 AM EDT [facility] Calcium 8.7 8.5 - 10.5 mg/dL LAB CHEMISTRY METHOD 10/23/2024 11:28 AM [facility] Blood Venous blood specimen / Unknown Venipuncture / Unknown 10/23/2024 5:09 AM EDT 10/23/2024 10:13 AM EDT us Ally Castañeda MD LAB BLOOD ORDERABLES Final Resul t [facility] [address] [place] [address], * (ABNORMAL) Complete blood count (10/23/2024 5:09 [...] LAB HEMETOLOGY METHOD 10/23/2024 10:31 AM EDT [facility] RDW 13.7 11.0 - 15.0 % LAB HEMETOLOGY METHOD 10/23/2024 10:31 AM EDT [facility] Platelets 342 130 - 400 K/mcL LAB HEMETOLOGY METHOD 10/23/2024 10:31 AM EDT [facility] MPV 10.0 7.0 - 11.0 FL LAB HEMETOLOGY METHOD 10/23/2024 10:31 AM EDT [facility] NRBC 0.0 <1.0 % LAB HEMETOLOGY METHOD 10/23/2024 10:31 AM EDT [facility] NRBC Absolute 0.00 <0.10 K/mcL LAB HEMETOLOGY METHOD 10/23/2024 10:31 AM EDT [facility] Blood Venous blood specimen / Unknown Venipuncture / Unknown 10/23/2024 5:09 AM EDT 10/23/2024 10:13 AM EDT us Ally Castañeda MD LAB BLOOD ORDERABLES Final Resul t [facility] [address] [place] [address], documented in this encounter Visit Diagnoses Diagnosis Spinal stenosis, site unspecified Chronic kidney disease, unspecified documented in this encounter Care Teams Asphalt Layer Relationship Specialty Start Date End Date Truong Colon MD [address] [place] [address] Dr [address] [place] PCP - General 05/19/22 documented as of this encounter
--- OUTSIDE RECORDS SUMMARY | 2025-02-24 09:51 | XMS_ITS | Encounter Summary ---
Author Organization [facility] Address [address] [place] [address] Phone Care Team Providers Care System Operation Superintendent Name Role Phone Truong Colon MD Primary Care Provider +1- [phone] Encounter Details Date Type Department Care Team (Late Contact Info) Description 07/11/2024 Orders Only [facility] [address] [place] [address] Kylie Gabriel [address] [place] [address] Anemia in chronic kidney disease; [...] [facility] [address] [place] [address] Romero Jimenez MD [address] [facility] [address] [place] [address] documented as of this encounter Visit Diagnoses Diagnosis Anemia in chronic kidney disease Stage 3b chronic kidney disease (HCC) Iron deficiency anemia, not otherwise specified documented in this encounter Care Teams System Operation Superintendent Relationship Specialty Start Date End Date Truong Colon MD [address] [place] [address] PCP - General Internal Medicine 03/06/23 documented as of this encounter
--- OUTSIDE RECORDS SUMMARY | 2025-02-24 09:51 | XMS_ITS | Encounter Summary ---
Author Organization [facility] [place] [address] Care Team Providers Care Welfare Adviser Name Role Phone Truong Colon MD Primary Care Provider +1 [phone] Encounter Details Date Type Department Care Team (Late Contact Info) Description 10/22/2024 Lab Requisition [facility] - Main Lab [address] [facility] [place] [address] Ally Castañeda MD [address] [place], [place] [id number] Essential (primary) hypertension; Anemia, unspecified Social History [...] Visit [facility] Hematology Oncology [address] [place] [address] Jennifer Ca MD [address] [place] [address] documented as of this encounter [...] (ABNORMAL) Ferritin (10/22/2024 5:26 AM EDT) Pathologist [facility] Ferritin 283(H) 8 - 252 ng/mL LAB CHEMISTRY METHOD 10/22/2024 9:41 AM EDT [facility] Blood Venous blood specimen / Unknown Venipuncture / Unknown 10/22/2024 5:26 AM EDT 10/22/2024 8:36 AM EDT us Ally Castañeda MD LAB BLOOD ORDERABLES Final Resul t [facility] [address] [place] [address], * (ABNORMAL) Basic metabolic panel (10/22/2024 5:26 AM EDT) Pathologist [facility] Sodium 140 133 - 145 mmol/L LAB CHEMISTRY METHOD 10/22/2024 9:41 AM EDT [facility] Potassium 5.5 3.5 - 5.5 mmol/L LAB CHEMISTRY METHOD 10/22/2024 9:41 AM EDT [facility] Chloride 107 96 - 110 mmol/L LAB CHEMISTRY METHOD 10/22/2024 9:41 AM EDT [facility] CO2 30 21 - 32 mmol/L LAB CHEMISTRY METHOD 10/22/2024 9:41 AM EDT [facility] Anion Gap 3 3 - 11 LAB CHEMISTRY METHOD 10/22/2024 9:41 AM EDT [facility] Glucose 69(L) 70 - 100 mg/dL LAB CHEMISTRY METHOD 10/22/2024 9:41 AM EDT [facility] BUN 21 5 - 25 mg/dL LAB CHEMISTRY METHOD 10/22/2024 9:41 AM EDT [facility] Creatinine 0.90 0.50 - 1.10 mg/dL LAB CHEMISTRY METHOD 10/22/2024 9:41 AM EDT [facility] eGFR 64 >=60 mL/min/1. 73m2 LAB CHEMISTRY METHOD 10/22/2024 9:41 AM EDT [facility] Comment:Calculation based on the Chronic Kidney Disease Epidemiology Collaboration (CKD-EPI) equation refit without adjustment for race. BUN/Creatinine Ratio 23.3 LAB CHEMISTRY METHOD 10/22/2024 9:41 AM [facility] Calcium 9.0 8.5 - 10.5 mg/dL LAB CHEMISTRY METHOD 10/22/2024 9:41 AM [facility] Blood Venous blood specimen / Unknown Venipuncture / Unknown 10/22/2024 5:26 AM EDT 10/22/2024 8:36 AM EDT us Ally Castañeda MD LAB BLOOD ORDERABLES Final Resul t [facility] [address] [place] [address], * (ABNORMAL) Complete blood count (10/22/2024 5:26 AM EDT) WBC 5.7 4.8 - 10.8 K/mcL LAB HEMETOLOGY METHOD 10/22/2024 9:09 AM EDT [facility] RBC 3.20(L) 3.80 - 4.80 M/mcL LAB HEMETOLOGY METHOD 10/22/2024 9:09 AM [facility] Hemoglobin 8.6(L) 11.5 - 16.0 g/dL LAB HEMETOLOGY METHOD 10/22/2024 9:09 AM [facility] Hematocrit 28.7(L) 35.0 - 47.0 % LAB HEMETOLOGY METHOD 10/22/2024 9:09 AM [facility] MCV 90.8 79.0 - 98.0 FL LAB HEMETOLOGY METHOD 10/22/2024 9:09 AM [facility] MCH 27.2 27.0 - 32.0 pcg LAB HEMETOLOGY METHOD 10/22/2024 9:09 AM [facility] MCHC 30.0(L) 32.0 - 37.0 g/dL LAB HEMETOLOGY METHOD 10/22/2024 9:09 AM [facility] RDW 13.4 11.0 - 15.0 % LAB HEMETOLOGY METHOD 10/22/2024 9:09 AM [facility] Platelets 383 130 - 400 K/mcL LAB HEMETOLOGY METHOD 10/22/2024 9:09 AM [facility] MPV 10.0 7.0 - 11.0 FL LAB HEMETOLOGY METHOD 10/22/2024 9:09 AM [facility] NRBC 0.0 <1.0 % LAB HEMETOLOGY METHOD 10/22/2024 9:09 AM [facility] NRBC Absolute 0.00 <0.10 K/mcL LAB HEMETOLOGY METHOD 10/22/2024 9:09 AM [facility] Blood Venous blood specimen / Unknown Venipuncture / Unknown 10/22/2024 5:26 AM EDT 10/22/2024 8:36 AM EDT Ally Castañeda MD LAB BLOOD ORDERABLES Final Resul t [facility] [address] [place] [address], documented in this encounter Visit Diagnoses Diagnosis Essential (primary) hypertension Unspecified essential hypertension Anemia, unspecified documented in this encounter Care Teams Welfare Adviser Relationship Specialty Start Date End Date Truong Colon MD [address] [place] [address] Dr [address] [place], [place] PCP - General 05/19/22 documented as of this encounter
--- OUTSIDE RECORDS SUMMARY | 2025-02-24 09:51 | XMS_ITS | Clinical Summary ---
Author Organization [facility] Address [address] [place] [address] [address] [place] [address] Phone Care Team Providers Care Assembly Inspector Name Role Phone Dimple Vergara MD Primary [...] Medical Devices Not on file Insurance [facility] MEDICARE REPLACEMENT [facility] MEDICARE [facility]PLACEMENT [facility] MEDICARE [facility]PLACEMENT [facility] MEDICARE [facility]PLACEMENT [facility] MEDICARE REPLACEMENT [facility] MEDICARE REPLACEMENT [facility] MEDICARE [facility]PLACEMENT [facility] MEDICARE REPLACEMENT [facility] MEDICARE REPLACEMENT Care Teams Assembly Inspector Relationship Specialty Start Date End Date Dimple Vergara MD [address] [place] [address] PCP - General 11/13/13 Additional Source Comments The information contained in this document represents components of the legal health record. It is not the complete legal health record.[facility]
--- OUTSIDE RECORDS SUMMARY | 2025-02-24 09:51 | XMS_ITS | Encounter Summary ---
Author Organization [facility] Address [address] [place] [address] Phone Care Team Providers Care Field Training Manager Name Role Phone Truong Colon MD Primary Care Provider +1- [phone] Encounter Details Date Type Department Care Team (Late Contact Info) Description 10/26/2023 Documentation Only [facility] [address] [place] [address] Kylie Gabriel [address] [place] [address] Social History Tobacco Use Types [...] [facility] [address] [place] [address] Romero Jimenez MD [address] [place] [address] [place] [address] documented as of this encounter Visit Diagnoses Not on filedocumented in this encounter Care Teams Field Training Manager Relationship Specialty Start Date End Date Truong Colon MD [address] [place] [address] PCP - General Internal Medicine 03/06/23 documented as of this encounter
--- OUTSIDE RECORDS SUMMARY | 2025-02-24 09:51 | XMS_ITS | Encounter Summary ---
Author Organization [facility] Address [address] [place] [address] Phone Care Team Providers Care Receiving Dock Checker Name Role Phone Truong Colon MD Primary Care Provider +1- [phone] Encounter Details Date Type Department Care Team (Late Contact Info) Description 01/14/2024 Documentation Only [facility] [address] [place] [address] [place] [address] [place] [address] Social History Tobacco Use Types Packs/Day [...] Visit [facility] [address] [place] [address] Romero Jiemnez MD [address] [facility] [place] [address] documented as of this encounter Visit Diagnoses Not on filedocumented in this encounter Care Teams Receiving Dock Checker Relationship Specialty Start Date End Date Truong Colon MD [address] [place] [address] PCP - General Internal Medicine 03/06/23 documented as of this encounter
--- OUTSIDE RECORDS SUMMARY | 2025-02-24 09:51 | XMS_ITS | Encounter Summary ---
Author Organization [facility] Address [address] [place] [address] Phone Care Team Providers Care Contract Administration Manager Name Role Phone Truong Colon MD Primary Care Provider +1- [phone] Encounter Details Date Type Department Care Team (Late Contact Info) Description 07/31/2024 Documentation Only [facility] [address] [place] [address] Kylie Gabriel [address] [place] [address] Social History Tobacco Use Types [...] [facility] [address] [place] [address] Romero Jimenez MD [address] [place] [address] [place] [address] documented as of this encounter Visit Diagnoses Not on filedocumented in this encounter Care Teams Contract Administration Manager Relationship Specialty Start Date End Date Truong Colon MD [address] [place] [address] PCP - General Internal Medicine 03/06/23 documented as of this encounter
--- OUTSIDE RECORDS SUMMARY | 2025-02-24 09:51 | XMS_ITS | Encounter Summary ---
Author Organization [facility] Address [address] [place] [address] Phone Care Team Providers Care Upholstery Cleaner Name Role Phone Truong Colon MD Primary Care Provider +1- [phone] Encounter Details Date Type Department Care Team ([facility] Contact Info) Description 06/13/2024 Orders Only [facility] [address] [place] [address] Kylie Gabriel [address] [place] [address] Anemia in chronic kidney disease; [...] Of [facility] [address] [place] [address] Romero Jimenez MD [address] [facility] [place] [address] documented as of this encounter Visit Diagnoses Diagnosis Anemia in chronic kidney disease Stage 3b chronic kidney disease (HCC) Iron deficiency anemia, not otherwise specified documented in this encounter Care Teams Upholstery Cleaner Relationship Specialty Start Date End Date Truong Colon MD [address] [place] [address] PCP - General Internal Medicine 03/06/23 documented as of this encounter
--- OUTSIDE RECORDS SUMMARY | 2025-02-24 09:51 | XMS_ITS | Encounter Summary ---
Author Organization [facility] Address [address] [place] [address] Phone Care Team Providers Care Floral Designer Salesperson Name Role Phone Truong Colon MD Primary Care Provider +1- [phone] Encounter Details Date Type Department Care Team (Late Contact Info) Description 01/31/2024 Documentation Only [facility] [address] [place] [address] Kylie Gabriel [address] [place] [address] Social History Tobacco Use Types [...] [facility] [address] [place] [address] Romero Jimenez MD [address] [place] [address] [place] [address] documented as of this encounter Visit Diagnoses Not on filedocumented in this encounter Care Teams Floral Designer Salesperson Relationship Specialty Start Date End Date Truong Colon MD [address] [place] [address] PCP - General Internal Medicine 03/06/23 documented as of this encounter
--- OUTSIDE RECORDS SUMMARY | 2025-02-24 09:51 | XMS_ITS | Encounter Summary ---
Author Organization [facility] Address [address] [place] [address] Phone Care Team Providers Care Residential Program Director Name Role Phone Truong Colon MD Primary Care Provider +1- [phone] Encounter Details Date Type Department Care Team (Late Contact Info) Description 10/31/2024 Orders Only [facility] [address] [place] [address] Kylie Gabriel [address] [place] [address] Anemia in chronic kidney disease; [...] [facility] [address] [place] [address] Romero Jimenez MD [address] [facility] [place] [address] documented as of this encounter Visit Diagnoses Diagnosis Anemia in chronic kidney disease Stage 3b chronic kidney disease (HCC) Iron deficiency anemia, not otherwise specified documented in this encounter Care Teams Residential Program Director Relationship Specialty Start Date End Date Truong Colon MD [address] [place] [address] PCP - General Internal Medicine 03/06/23 documented as of this encounter
--- OUTSIDE RECORDS SUMMARY | 2025-02-24 09:51 | XMS_ITS | Encounter Summary ---
Author Organization [facility] [place] [address] Care Team Providers Care Direct Service Worker Name Role Phone Truong Colon MD Primary Care Provider +1 [phone] Encounter Details Date Type Department Care Team (Late st Contact Info) Description 10/10/2024 Lab Requisition [facility] - Main Lab [address] [facility] [place] [phone] Ally Castañeda MD [address] [place] [address] Malignant neoplasm of unspecified site of unspecified female breast ([facility]/HCC V24, [facility] V28); Hypothyroidism, unspecified; Vitamin D deficiency, unspecified; [...] 11/04/2025 10:30 AM EDT Office Visit [facility] Hematology Oncology [address] [place] [phone] Jennifer Ca MD [address] [place] [phone] documented as of this encounter Procedures Procedure Name Priority Date/Time Associated Diagnosis Comments THYROID STIMULATING HORMONE WITH REFLEX TO FREE T4 AND FREE T3 Routine 10/10/2024 5:37 AM EDT Malignant neoplasm of unspecified site of unspecified female breast ([facility]/HCC V24, [facility]/HCC V28) Hypothyroidism, unspecified Vitamin D deficiency, unspecified Vitamin B12 deficiency anemia, unspecified Spinal stenosis, site unspecified Chronic kidney disease, stage 3 unspecified ([facility]/HCC V24, [facility]/HCC V28) VITAMIN D 25 HYDROXY Routine 10/10/2024 5:37 AM EDT Malignant neoplasm of unspecified site of unspecified female breast ([facility]/HCC V24, [facility]/HCC V28) Hypothyroidism, unspecified Vitamin D [...] breast (CMS/HCC V24, [facility]/HCC V28) Hypothyroidism, unspecified Vitamin D deficiency, unspecified Vitamin B12 deficiency anemia, unspecified Spinal stenosis, site unspecified Chronic kidney disease, stage 3 unspecified (CMS/HCC V24, CMS/HCC V28) VITAMIN B12 Routine 10/10/2024 5:37 AM EDT Malignant neoplasm of unspecified site of unspecified female breast ([facility] V24, [facility] V28) Hypothyroidism, unspecified Vitamin D deficiency, unspecified Vitamin B12 deficiency anemia, unspecified Spinal stenosis, site unspecified Chronic kidney disease, stage 3 unspecified ([facility] V24, [facility] V28) COMPREHENSIVE METABOLIC PANEL Routine 10/10/2024 5:37 AM EDT Malignant neoplasm of unspecified site of unspecified female breast ([facility] V24, [facility] V28) Hypothyroidism, unspecified Vitamin D deficiency, unspecified Vitamin B12 deficiency anemia, unspecified Spinal stenosis, site unspecified Chronic kidney disease, stage 3 unspecified ([facility] V24, [facility] V28) documented in this encounter Results * [...] t [facility] [address] [place] [address], [place] [phone] * Folate (10/10/2024 5:37 AM EDT) Folate 12.9 2.8 - 17.0 ng/ml LAB CHEMISTRY METHOD 10/10/2024 11:35 AM EDT [facility] Blood Venous blood specimen / Unknown Venipuncture / Unknown 10/10/2024 5:37 AM EDT 10/10/2024 9:30 AM EDT us Ally Castañeda MD LAB BLOOD ORDERABLES Final Resul t Performing Organization Address [facility]/ZIP Co de Phone Number [facility] [address] [place] [address], [place] [phone] * Vitamin B12 (10/10/2024 5:37 AM EDT) Vitamin B-12 371 250 - 900 pcg/mL LAB CHEMISTRY METHOD 10/10/2024 11:35 AM EDT [facility] Blood Venous blood specimen / Unknown Venipuncture / Unknown 10/10/2024 5:37 AM EDT 10/10/2024 9:30 AM EDT us Ally Castañeda MD LAB BLOOD ORDERABLES Final Resul t Performing Organization Address [facility] de Phone Number [facility] [address] [place] [address], * Thyroid stimulating hormone with reflex to [...] ORDERABLES Final Resul t Performing Organization Address [facility]/ZIP Co de Phone Number [facility] [address] [place] [address], [place] [phone] * (ABNORMAL) Comprehensive metabolic panel (10/10/2024 5:37 AM EDT) Sodium 130(L) 133 - 145 mmol/L LAB CHEMISTRY METHOD 10/10/2024 11:35 AM EDT [facility] Potassium 4.9 3.5 - 5.5 mmol/L LAB CHEMISTRY METHOD 10/10/2024 11:35 AM [facility] Chloride 97 96 - 110 mmol/L LAB CHEMISTRY METHOD 10/10/2024 11:35 AM [facility] CO2 28 21 - 32 mmol/L LAB CHEMISTRY METHOD 10/10/2024 11:35 AM [facility] Anion Gap 5 3 - 11 LAB CHEMISTRY METHOD 10/10/2024 11:35 AM [facility] Glucose 82 70 - [...] AM EDT [facility] Albumin 2.3(L) 3.2 - 5.0 g/dL LAB CHEMISTRY METHOD 10/10/2024 11:35 AM EDT [facility] Total Bilirubin 0.4 0.0 - 1.4 mg/dL LAB CHEMISTRY METHOD 10/10/2024 11:35 AM EDT [facility] Blood Venous blood specimen / Unknown Venipuncture / Unknown 10/10/2024 5:37 AM EDT 10/10/2024 9:30 AM EDT Ally Castañeda MD LAB BLOOD ORDERABLES Final Resul t [facility] [address] [place] [address], [place] [phone] * (ABNORMAL) Complete blood count (10/10/2024 5:37 AM EDT) WBC 9.2 4.8 - 10.8 K/mcL LAB HEMETOLOGY METHOD 10/10/2024 10:58 AM EDT [facility] RBC 3.10(L) 3.80 - 4.80 M/mcL LAB HEMETOLOGY METHOD 10/10/2024 10:58 AM EDT [facility] Hemoglobin 8.8(L) 11.5 - 16.0 g/dL LAB HEMETOLOGY METHOD 10/10/2024 10:58 AM EDT [facility] Hematocrit 28.0(L) 35.0 - 47.0 % LAB HEMETOLOGY METHOD 10/10/2024 10:58 AM EDT [facility] MCV 89.7 79.0 - 98.0 FL LAB HEMETOLOGY METHOD 10/10/2024 10:58 AM EDT [facility] MCH 28.2 27.0 - 32.0 pcg LAB HEMETOLOGY METHOD 10/10/2024 10:58 AM EDT [facility] MCHC 31.4(L) 32.0 - 37.0 g/dL LAB HEMETOLOGY METHOD 10/10/2024 10:58 AM EDT [facility] RDW 13.2 11.0 - 15.0 % LAB HEMETOLOGY METHOD 10/10/2024 10:58 AM EDT [facility] Platelets 261 130 - 400 K/mcL LAB HEMETOLOGY METHOD 10/10/2024 10:58 AM EDT [facility] MPV 11.0 7.0 - 11.0 FL LAB HEMETOLOGY METHOD 10/10/2024 10:58 AM EDT [facility] NRBC 0.0 <1.0 % LAB HEMETOLOGY METHOD 10/10/2024 10:58 AM EDT [facility] NRBC Absolute 0.00 <0.10 K/mcL LAB HEMETOLOGY METHOD 10/10/2024 10:58 AM EDT [facility] Blood Venous blood specimen / Unknown Venipuncture / Unknown 10/10/2024 5:37 AM EDT 10/10/2024 9:30 AM EDT us Ally Castañeda MD LAB BLOOD ORDERABLES Final Resul t [facility] [address] [place] [address], documented in this encounter Visit Diagnoses Diagnosis Malignant neoplasm of unspecified site of unspecified female breast ([facility]/HCC V24, [facility]/HCC V28) Hypothyroidism, unspecified Vitamin D deficiency, unspecified Vitamin B12 deficiency anemia, unspecified Spinal stenosis, site unspecified Chronic kidney disease, stage 3 unspecified (CMS/HCC V24, CMS/HCC V28) documented in this encounter Care Teams Direct Service Worker Relationship Specialty Start Date End Date Truong Colon MD [address] JAEL Christian PCP - General 05/19/22 documented as of this encounter
--- OUTSIDE RECORDS SUMMARY | 2025-02-24 09:51 | XMS_ITS | Encounter Summary ---
Author Organization [facility] [place] [address] Care Team Providers Care Graphics Manager Name Role Phone Truong Colon MD Primary Care Provider Encounter Details Date Type Department Care Team (Late Contact Info) Description 10/16/[address] [facility] - Main Lab [address] [facility] [place] [address] Ally Castañeda MD [address] [place] [address] Spinal stenosis, site unspecified; Chronic [...] Office Visit [facility] Hematology Oncology [address] [place] [address] Jennifer Ca MD [address] [place] [address] [phone] (work) documented as of this encounter Procedures [...] mmol/L LAB CHEMISTRY METHOD 10/17/2024 12:13 PM [facility] Potassium 5.6(H) 3.5 - 5.5 mmol/L LAB CHEMISTRY METHOD 10/17/2024 12:13 PM [facility] Chloride 103 96 - 110 mmol/L LAB CHEMISTRY METHOD 10/17/2024 12:13 PM [facility] CO2 28 21 - 32 mmol/L LAB CHEMISTRY METHOD 10/17/2024 12:13 PM [facility] Anion Gap 5 3 - 11 LAB CHEMISTRY METHOD 10/17/2024 12:13 PM [facility] Glucose 77 70 - 100 mg/dL LAB CHEMISTRY METHOD 10/17/2024 12:13 PM [facility] BUN 23 5 - 25 mg/dL LAB CHEMISTRY METHOD 10/17/2024 12:13 PM [facility] Creatinine 1.02 0.50 - 1.10 mg/dL LAB CHEMISTRY METHOD 10/17/2024 12:13 PM [facility] eGFR 55(L) >=60 mL/min/1. 73m2 LAB CHEMISTRY METHOD 10/17/2024 12:13 PM [facility] Comment:Calculation based on the Chronic Kidney Disease Epidemiology Collaboration (CKD-EPI) equation refit without adjustment for race. BUN/Creatinine Ratio 22.5 LAB CHEMISTRY METHOD 10/17/2024 12:13 PM T [facility] Calcium 8.9 8.5 - 10.5 mg/dL LAB CHEMISTRY METHOD 10/17/2024 12:13 PM [facility] Blood Venous blood specimen / Unknown Venipuncture / Unknown 10/17/2024 7:36 AM EDT 10/17/2024 11:30 AM EDT us Ally Castañeda MD LAB BLOOD ORDERABLES Final Resul t [facility] [address] [place] [address], [place] [phone] * (ABNORMAL) Complete blood count (10/17/2024 7:36 AM EDT) WBC 6.5 4.8 - 10.8 K/mcL LAB HEMETOLOGY METHOD 10/17/2024 12:00 PM [facility] RBC 3.40(L) 3.80 - 4.80 M/mcL LAB HEMETOLOGY METHOD 10/17/2024 12:00 PM [facility] Hemoglobin 9.2(L) 11.5 - 16.0 g/dL LAB HEMETOLOGY METHOD 10/17/2024 12:00 PM [facility] Hematocrit 30.9(L) 35.0 - 47.0 % LAB HEMETOLOGY METHOD 10/17/2024 12:00 PM [facility] MCV 91.2 79.0 - 98.0 FL LAB HEMETOLOGY METHOD 10/17/2024 12:00 PM [facility] MCH 27.1 27.0 - 32.0 pcg LAB HEMETOLOGY METHOD 10/17/2024 12:00 PM [facility] MCHC 29.8(L) 32.0 - 37.0 g/dL LAB HEMETOLOGY METHOD 10/17/2024 12:00 PM EDT [facility] RDW 13.2 11.0 - 15.0 % LAB HEMETOLOGY METHOD 10/17/2024 12:00 PM EDT [facility] Platelets 495(H) 130 - 400 K/mcL LAB HEMETOLOGY METHOD 10/17/2024 12:00 PM EDT [facility] MPV 10.0 7.0 - 11.0 FL LAB HEMETOLOGY METHOD 10/17/2024 12:00 PM EDT [facility] NRBC 0.0 <1.0 % LAB HEMETOLOGY METHOD 10/17/2024 12:00 PM EDT [facility] NRBC Absolute 0.00 <0.10 K/mcL LAB HEMETOLOGY METHOD 10/17/2024 12:00 PM EDT [facility] Blood Venous blood specimen / Unknown Venipuncture / Unknown 10/17/2024 7:36 AM EDT 10/17/2024 11:30 AM EDT us Ally Castañeda MD LAB BLOOD ORDERABLES Final Resul t [facility] [address] [place] [address], documented in this encounter Visit Diagnoses Diagnosis Spinal stenosis, site unspecified Chronic kidney disease, unspecified documented in this encounter Care Teams Graphics Manager Relationship Specialty Start Date End Date Truong Colon MD [address] [place] [address] Dr Eric Christian [place] PCP - General 05/19/22 documented as of this encounter
--- OUTSIDE RECORDS SUMMARY | 2025-02-24 09:51 | XMS_ITS | Clinical Summary ---
Author Organization [facility], Address [address] [place] [address] [place] [address] Phone Care Team Providers Care Aquarium Tank Attendant Name Role Phone Truong Colon MD Primary Care Provider +1- [phone] Allergies Active Allergy Reactions Criticality Noted Date [...] Encounters Date Type Department Care Team Description 02/20/2025 Orders Only [facility] [address] [place] [address] Kylie Gabriel Anemia in chronic kidney disease; Stage 3b chronic kidney disease (HCC); Iron deficiency anemia, not otherwise specified 01/23/2025 Orders Only [facility] [address] [place] [phone] Harvey Kylie Anemia in chronic kidney disease; Stage 3b chronic kidney disease (HCC); Iron deficiency anemia, not otherwise specified 12/26/2024 Orders Only [facility] [address] [place] [phone] Harvey, Kylie Anemia in chronic kidney disease; Stage 3b chronic kidney disease (HCC); Iron deficiency anemia, not otherwise specified 12/02/2024 1:40 PM EDT Office Visit [facility] [address] [place] [phone] Romero Jimenez MD Stage 3b chronic kidney disease (HCC) (Primary Dx) 11/28/2024 Orders Only [facility] [address] [place] [phone] Harvey, Kylie Anemia in chronic kidney disease; [...] Visit [facility], [address] [place] [phone] Romero Jimenez MD [address] [place] [address] Health Maintenance Due Date Last Done [...] Most Recently Relevant to Health Maintenance Insurance [facility] Dual SNP ([id number]) [place] [phone] Care Teams Aquarium Tank Attendant Relationship Specialty Start Date End Date Truong Colon MD [address] [place] [address] PCP - General Internal Medicine 03/06/23
--- OUTSIDE RECORDS SUMMARY | 2025-02-24 09:51 | XMS_ITS | Encounter Summary ---
Author Organization [facility] [employer] Address [address] [place] [address] Phone Care Team Providers Care Magnetic Tape Winder Name Role Phone Truong Colon MD Primary Care Provider +1- [phone] Encounter Details Date Type Department Care Team (Late Contact Info) Description 07/02/2024 Documentation Only [facility] [address] [place] [address] [place] [address] [place] [address] Social History Tobacco Use Types Packs/Day [...] [facility] [address] [place] [address] Romero Jimenez MD [address] [place] [address] [place] [address] documented as of this encounter Visit Diagnoses Not on filedocumented in this encounter Care Teams Magnetic Tape Winder Relationship Specialty Start Date End Date Truong Colon MD [address] [place] [address] PCP - General Internal Medicine 03/06/23 documented as of this encounter
--- OUTSIDE RECORDS SUMMARY | 2025-02-24 09:51 | XMS_ITS | Encounter Summary ---
Author Organization [facility] [place], Address [address] [place] [address] Phone Care Team Providers Care Director Industrial Nursing Name Role Phone Truong Colon MD Primary Care Provider +1- [phone] Encounter Details Date Type Department Care Team (Late Contact Info) Description 01/23/2024 Documentation Only [facility] [place], - [place] [address] [place] [address] Jasmin Dumont [address] [place] [address] Social History Tobacco Use Types Packs/Day [...] Visit [facility], [address] [address] Romero Jimenez MD [address] [place] [address] documented as of this encounter Visit Diagnoses Not on filedocumented in this encounter Care Teams Director Industrial Nursing Relationship Specialty Start Date End Date Truong Colon MD [address] [place] [address] PCP - General Internal Medicine 03/06/23 documented as of this encounter
--- OUTSIDE RECORDS SUMMARY | 2025-02-24 09:52 | XMS_ITS | Encounter Summary ---
Author Organization [facility] [place] [address] Care Team Providers Care Secretarial Stenographer Name Role Phone Truong Colon MD Primary Care Provider Encounter Details Date Type Department Care Team (Late Contact Info) Description 11/06/2024 Lab Requisition [facility] - Main Lab 299 [facility] [place] [address] Ally Castañeda MD [address] [place] [address] Spinal stenosis, site unspecified; Chronic [...] [facility] [place] [facility] [address] [place] [address] Jennifer Ca MD [address] [place] [address] documented as of this encounter Visit Diagnoses Diagnosis Spinal stenosis, site unspecified Chronic kidney disease, unspecified documented in this encounter Care Teams Secretarial Stenographer Relationship Specialty Start Date End Date Truong Colon MD [address] [place] [address] Dr [address] [place], [place] PCP - General 05/19/22 documented as of this encounter
--- OUTSIDE RECORDS SUMMARY | 2025-02-24 09:52 | XMS_ITS | Encounter Summary ---
Author Organization [facility] Address [address] [place] [address] Phone Care Team Providers Care Five Piece Expansion Maker Hand Name Role Phone Truong Colon MD Primary Care Provider +1- [phone] Encounter Details Date Type Department Care Team (Late Contact Info) Description 04/29/2024 Documentation Only [facility] [address] [place] [address] Britt Sol [address] [place] [address] Social History Tobacco Use Types [...] [facility] [address] [place] [address] Romero Jimenez MD [address] [place] [address] [place] [address] documented as of this encounter Visit Diagnoses Not on filedocumented in this encounter Care Teams Five Piece Expansion Maker Hand Relationship Specialty Start Date End Date Truong Colon MD [address] [place] [address] PCP - General Internal Medicine 03/06/23 documented as of this encounter
--- OUTSIDE RECORDS SUMMARY | 2025-02-24 09:52 | XMS_ITS ---
Author Organization [facility] [place], Address [address] [place] [address] [place] [address] Phone Care Team Providers Care Handle Attacher Name Role Phone Truong Colon MD Primary Care Provider +1- [phone] Active Problems Problem Noted Date Diagnosed Date [...]
[2025-02-24 10:54] LABS: Alanine Aminotransferase 14 U/L (0-31); Albumin Level 4.2 g/dL (3.5-5.0); Alkaline Phosphatase 130 U/L (39-117); Anion Gap 12 (12-20); Aspartate Amino Transferase 22 U/L (5-31); Blood Urea Nitrogen 29 mg/dL (9-16); Calcium 9.5 mg/dL (8.4-10.2); Carbon Dioxide 28 mmol/L (22-29); Chloride 106 mmol/L (96-108); Estimated Glomerular Filt Rate 42; Potassium 4.5 mmol/L (3.3-5.1); Sodium 141 mmol/L (135-145); Total Protein 8.3 g/dL (6.5-8.0)
[2025-02-25 21:53] LABS: Prot Elec - Albumin 3.7 g/dL (3.8-4.8); Prot Elec - Alpha1 0.3 g/dL (0.2-0.3); Prot Elec - Alpha2 0.7 g/dL (0.5-0.9); Prot Elec - Beta 1 0.5 g/dL (0.4-0.6); Prot Elec - Beta 2 0.5 g/dL (0.2-0.5); Prot Elec - Gamma 1.9 g/dL (0.8-1.7); Prot Elec - Total Protein 7.6 g/dL (6.1-8.1)
== END 2025-02-24 09:08 | disposition home or self-care (01) ==
LOC: HO.LAB 09:07
PROVIDERS: Student in an Organized Health Care Education/Training Program; PCP Internal Medicine; Visit Provider Internal Medicine
DX: M35.00 Sjogren syndrome, unspecified (principal); E55.9 Vitamin D deficiency, unspecified
CPT/HCPCS: 36415; 80053; 82306; 82784; 84165; 85025; 85652; 86140; 86160; 86334; 86431

== ENCOUNTER 2025-02-27 14:16 | Outpatient (AMB) | payer OTHER, SELFPAY ==
--- OUTSIDE RECORDS SUMMARY | 2024-10-30 09:45 | XMS_ITS ---
Author Organization [facility] Address [address] [place] [address] Care Team Providers Care Fws Faculty Assistant Name Role Phone Isaiah DURAN, Truong Primary Care Provider UnaBoby Bermudez Unavailable [phone] Encounters Encounter Location Date Provider Diagnosis [facility] [address] [address] 10/30/2024 Boby Chapman Plan Of Treatment Next Appt Details Provider Name:Boby Chapman , 03/30/2025 01:30:00 PM, [address] [facility], [place] [address], [place], [address], Progress Notes * Tommie BLANCASOB:[birth year] (79 yo F)Acc No.[id number]:10/30/2024 Progress Note Patient: Jacinda NUNEZ Provider: Alex Chapman DPM :1945 A ge:79 Y S ex:Female Date:10/30/2024 Address:[address] [place] [address], [place], [id number] Pcp:Truong Colon MD Subjective: * Chief Complaints: [...] 10/30/2024 Generated for Yovanny Cohn on: 1 04/29/2024 03:59 PM EST
[2025-02-27 14:25] VITALS: BP 144/78; PULSE 66; O2SAT 95; BMI 31.2
--- NOTE | 2025-02-27 14:25 | MHC.PC.OV ---
Vital Signs 02/27/25 14:25 Height 5 ft 11 in Weight 223 lb 8 oz BMI 31.2 BP 144/78 H Blood Pressure Location Lt brachial Position Sitting Pulse 66 Pulse Source Pulse Oximeter Pulse Oximetry (%) 95 Oxygen Delivery Method Room Air Intake Visit Reasons: 3mth f/u Relocation Commissioner Required: No Accompanied by: Self / Same As Patient Allergies Penicillins (PENICILLINS) Allergy (Intermediate, Verified 02/27/25 14:59) rash senna Allergy (Intermediate, Verified 02/27/25 14:59) rash Medication List - Last Reconciled 02/27/25 by Truong Colon MD amlodipine 10 mg PO DAILY 90 days bisacodyl 5 mg PO BEDTIME 90 days calcitriol 1 mcg PO WE@1645 cane As directed - use when walking carvedilol 12.5 mg PO BID [Commode As directed] [DISPOSABLE BED PADS Use as directed ONCE A DAY] [DISPOSABLE GLOVES - LARGE (1 box/month) Use as directed] docusate sodium (Colace) 100 mg PO BID [FEMININE PADS As directed] gabapentin 300 mg PO BID 30 days levothyroxine 125 mcg PO DAILY@0600 [MEDICATED INCONTINENCE WIPES As directed] multivitamin 1 tab PO DAILY omeprazole 40 mg PO DAILY@0630 [ROLLATOR As directed] [ROLLATOR As directed] tizanidine 2 mg PO TID PRN Tobacco use date assessed: 02/27/25 Fall risk assessment: No Falls in past year Last assessed Fall Risk: 02/27/25 Dental Screening Dental Screen Date: 02/27/25 Did you have a dental visit in the last 12 months?: Yes Did you have a dental problem in the last 6 months where you did not have access to dental care?: No Was dental information given to patient?: Patient has dentist HPI 3mth f/u HPI Details Patient comes in today for her follow up visit States that she presently feels okay She denies any headaches or dizziness Denies any chest pains, no increased shortness of breath No nausea/vomiting, no abdominal pain No change in bowel habits noted She still has on and off pain over her lower back but states that her low back pain have decreased a lot and she hardly has any radicular pain in her right leg following her surgery with Dr. Angelique quezada in September 2024 - had right L2-L3 decompression surgery She was also seen by rheumatology for her joint pains last week and sent for additional labs, which she did last week, for further evaluation and she would like to go over all of her pertinent results [facility] Medical History Osteoporosis Ambulates with cane Difficulty swallowing Osteoarthritis of right knee BPV (benign positional vertigo) Gait instability Cervicogenic headache Cervicalgia Vertigo Chronic kidney disease, stage III (moderate) Obesity (BMI 30-39.9) Gastritis Benign essential hypertension GERD without esophagitis Acquired hypothyroidism Constipation Lumbar spondylosis Post laminectomy syndrome Connective tissue disease Interstitial lung disease Osteopenia PAC (premature atrial contraction) Sjogrens syndrome Hypothyroid Breast cancer Raynauds disease SAMARA positive Surgical History Status post lumbar spine surgery for decompression of spinal cord History of video-assisted thoracoscopic surgery (VATS) (03/13/24) 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) Hx of colonoscopy Hx of tubal ligation H/O varicose vein stripping History of cataract surgery H/O lumpectomy Hx of cholecystectomy History of back surgery Family History Father Emphysema of lung Cancer Brother Emphysema of lung Mother Bone cancer Son PONV (postoperative nausea and vomiting) Other Arthritis Social History Household Members: Significant Other and Children Housing: Apartment Are you a primary customer care voice consultant to a significant other at home: No Do you presently have visiting nurse or other home services: No Alcohol intake: never Comment: pt reports this is her baseline pain Patient Tobacco Use Status: Never used Tobacco e-Cigarette/Vaping Use: Never Used Second Hand Smoke Exposure: No Advance Directives Date on File: 10/07/24 service: No Current occupational status: retired Cognitive needs: No Hearing needs: No Vision needs: Yes (Glasses) Questionnaire PHQ-9 Over the last 2 weeks, how often have you been bothered by any of the following problems? 1. Little interest or pleasure in doing things: not at all 2. Feeling down, depressed, or hopeless: not at all 3. Trouble falling or staying asleep, or sleeping too much: not at all 4. Feeling tired or having little energy: not at all 5. Poor appetite or overeating: not at all 6. Feeling bad about yourself - or that you are a failure or have let yourself or your family down: not at all 7. Trouble concentrating on things, such as reading the newspaper or watching television: not at all 8. Moving or speaking so slowly that other people could have noticed. Or the opposite - being so fidgety or restless that you have been moving around a lot more than usual: not at all 9. Thoughts that you would be better off or of hurting yourself in some way: not at all Total score: 0 Depression Screening Interpretation: Negative Depression Screening Done: Yes 96972 - PHQ-9 Billing: Yes Source: Developed by Drs. Timoteo Covington, Lucy Arndt, Guevara Jewell and colleagues, with an educational tere from [employer]. Thrive Questionnaire Date Thrive assessed: 02/27/25 I am a: Patient What is your living situation today?: I have a place to live, but I am worried about losing it in the future Within the past 12 months, did the food you bought not last and you didn't have the money to get more?: I choose not to answer this question Within the past 12 months, did you worry whether your food would run out before you got money to buy more?: I choose not to answer this question Do you have trouble paying for medicines?: I choose not to answer this question Do you have trouble getting transportation to medical appointments?: I choose not to answer this question Do you have trouble paying your heating and electricity bill?: I choose not to answer this question Do you have trouble taking care of your child, family member or friend?: I choose not to answer this question Do you have trouble with day-to-day activities such as bathing, preparing meals, shopping, managing finances, etc.?: I choose not to answer this question Are you currently unemployed and looking for a job?: I choose not to answer this question Are you interested in more education?: I choose not to answer this question Please select the resources that you would like help with: None Currently or been in a relationship where the following occur: I choose not to answer THRIVE Score: 1 AUDIT C Alcohol Use Questionnaire (AUDIT-C) 1. How often do you have a drink containing alcohol?: Never 3. How often do you have six or more drinks on one occasion?: Never Total Score: 0 Score Reviewed/Action Taken: Yes MO-7 AMB Questionnaire MO-7 Date MO - 7 assessed: 02/27/25 Feeling nervous, anxious, or on edge: 0 = Not at all Not being able to stop or control worryin = Not at all Worrying too much about different things: 1 = Several days Trouble relaxin = Several days Being so restless that it is hard to sit still: 1 = Several days Becoming easily annoyed or irritable: 0 = Not at all Feeling afraid as if something awful might happen: 0 = Not at all Total MO-7 score (0-4 normal; 5-9 mild; 10-14 moderate; 15-21 severe): 3 Source: Developed by Drs. Timoteo Covington, Lucy Arndt, Guevara Jewell and colleagues, with an educational tere from [employer]. Review of Systems Const Denies chills, Denies fatigue, Denies fever(s) and Denies headache(s) ENT Denies dysphagia, Denies dizziness, Denies otalgia, Denies headache(s), Denies neck pain, Denies odynophagia and Denies sore throat Card Denies chest pain, Denies rapid heart rate, Denies irregular heart rhythm, Denies palpitations and Denies dyspnea Resp Denies chest congestion, Denies cough and Denies dyspnea GI Denies abdominal pain, Denies constipation, Denies dysphagia, Denies diarrhea, Denies nausea, Denies odynophagia and Denies vomiting Denies hematuria, Denies difficulty voiding, Denies nocturia, Denies dysuria and Denies urinary urgency Musc Reports abnormal gait (unsteady), Reports back pain (over the lower back - chronic), Denies arthralgias and Denies neck pain Skin/Breast Denies rash Neuro Reports abnormal gait (unsteady), Denies dizziness, Denies headache(s) and Denies paresthesias Psych Reports anxiety (increasing) Endo Denies fatigue and Denies palpitations Rogelio/Lymph Denies easy bruising Physical exam (Primary Care) Vital Signs: Last Vital Signs Pulse 66 02/27/25 14:25 BP 144/78 H 02/27/25 14:25 Pulse Ox 95 02/27/25 14:25 Oxygen Delivery Method Room Air 02/27/25 14:25 BMI result Body Mass Index 31.2 Tobacco/Smoking Status: Tobacco use Status Tobacco use date assessed 02/27/25 02/27/25 14:32 Patient Tobacco Use Status Never used Tobacco 02/27/25 14:32 e-Cigarette/Vaping Use Never Used 02/27/25 14:32 PHQ-9: PHQ-9 Score PHQ-9: Total score 0 02/27/25 15:09 Depression Screening Interpretation: Negative Thrive Assessment: Date of Thrive Assessment Date Thrive assessed 02/27/25 02/27/25 14:32 Currently or been in a relationship where the following occur: I choose not to answer Const General: no acute distress and alert HENMT Ears: TM's normal bilaterally and EAC's normal Throat: Yes posterior oropharynx normal and Yes tonsils normal (no TP congestion) Neck Neck: Yes supple and No lymphadenopathy Thyroid: Thyroid normal Resp Auscultation: clear to auscultation bilaterally, no rales and no wheezes Cardio Rate: regular rate Rhythm: regular rhythm Heart sounds: no murmurs GI Palpation (GI): Soft to palpation and nontender Auscultation: normal bowel sounds General: Yes no CVA tenderness Back/Spine/Pelvis Back: no CVA tenderness Thoracic/Lumbar Spine: lumbar spinal tenderness (chronic) Skin Rashes: no rashes Extrem General: Yes no clubbing, cyanosis or edema Right lower extremity: knee Details: tenderness; no swelling Results Reviewed Results Reviewed: Laboratory Tests 02/24/25 09:20 WBC 4.2 L Hgb 11.8 L Hct 37.2 Plt Count 203 ESR 58 H Sodium 141 Potassium 4.5 Creatinine 1.22 Estimated GFR 42 Calcium 9.5 AST 22 ALT 14 C-Reactive Protein 0.21 Total Protein (PEP) 7.6 PEP Interpretation SEE NOTE 25-OH Vitamin D Total 48.9 Coding Level of Care Code Est Pt Level 4 (01394) Diagnoses Lumbar spondylosis M47.816 Benign essential hypertension I10 Cervicogenic headache G44.86 Acquired hypothyroidism E03.9 Stage 3b chronic kidney disease N18.32 Chronic kidney disease stage 3 subtype: stage 3b (GFR 30-44) Sjogren's syndrome without extraglandular involvement M35.00 Sjogren's organ involvement: without extraglandular involvement GERD without esophagitis K21.9 Dysphagia, unspecified type R13.10 Dysphagia type: unspecified 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 Chronic idiopathic constipation K59.04 Fibromyalgia M79.7 Primary osteoarthritis of right knee M17.11 Anxiety F41.9 Obesity (BMI 30-39.9) E66.9 Additional Codes PHQ-9 - 55668 - PHQ-9 Billing: Yes ([id number]) Assessment & Plan Assessment & Plan (1) Lumbar spondylosis: Code(s): M47.816 - Spondylosis without myelopathy or radiculopathy, lumbar region Category: Medical Plan: Reinforced activity and weight-lifting restrictions Patient has failed back injections in the past She was successfully trialed on SCS a few months ago and was being planned for a permanent SCS implantation but she ended up undergoing back surgery (right L2-L3 decompression) with Dr. Merino a few months ago, followed by home physical therapy, which she completed a couple of months ago Follow up with Pain Management as scheduled (2) Benign essential hypertension: Code(s): I10 - Essential (primary) hypertension Category: Medical Plan: Reinforced low sodium diet - goal is systolic BP of at least 130 to 140 mm or less Continue Amlodipine 10 mg QD and Carvedilol 12.5 mg BID (3) Cervicogenic headache: Code(s): G44.86 - Cervicogenic headache Category: Medical Plan: Patient was seen by Neurology a few months ago and was advised that her headaches are most likely related to her frequent neck pain She was sent for physical therapy further evaluation and management and myofascial release but patient did not go to therapy as her insurance does not cover physical therapy sessions and she has to pay out a co-pay each time she goes She was also started on Cyclobenzaprine at bedtime by Neurology, which patient states did not really help She states that her headaches have calmed down somewhat lately (4) Acquired hypothyroidism: Code(s): E03.9 - Hypothyroidism, unspecified Category: Medical Plan: Results of her labs done a few days ago reviewed and discussed with patient but did not include her TFTs Continue Levothyroxine 125 mcg QD Will have patient recheck her labs and TFTs in 4 months for follow up (5) Chronic kidney disease, stage III (moderate): Code(s): N18.30 - Chronic kidney disease, stage 3 unspecified Category: Medical Qualifiers: Chronic kidney disease stage 3 subtype: stage 3b (GFR 30-44) Qualified Code(s): N18.32 - Chronic kidney disease, stage 3b Plan: Patient's renal function appears stable on her recent labs We will continue to monitor her renal function closely Follow up with nephrology (Dr. Meza) as scheduled (6) Sjogrens syndrome: Code(s): M35.00 - Sjogren syndrome, unspecified Category: Medical Qualifiers: Sjogren's organ involvement: without extraglandular involvement Qualified Code(s): M35.00 - Sicca syndrome, unspecified Plan: She seen by rheumatology for positive Sjogren's antibody and with sicca symptoms She was initially thought to have Sjogren's syndrome but patient has never had any inflammatory arthritis symptoms or signs and no other extraglandular manifestations of Sjogren's have been detected - was advised that her symptoms are more due to osteoarthritis and that she DOES NOT HAVE SJOGREN'S SYNDROME She was sent for some labs again by rheumatology recently and she had these done a few days ago - her protein electrophoresis came back with an increase in gamma globulins noted; immunoglobulin quantification is still pending at this time Follow up with rhuematology as scheduled (7) GERD without esophagitis: Code(s): K21.9 - Gastro-esophageal reflux disease without esophagitis Category: Medical Plan: Dietary restrictions reinforced Continue Omeprazole 40 mg QD Follow up with GI as scheduled (8) Dysphagia: Code(s): R13.10 - Dysphagia, unspecified Category: Medical Qualifiers: Dysphagia type: unspecified Qualified Code(s): R13.10 - Dysphagia, unspecified Plan: Her barium swallow done a couple of years ago showed findings consistent with achalasia / lower esophageal sphincter spasm with associated nonmotility She was sent for a chest CT by GI last year for further evaluation, which then revealed the 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 Membreno Code(s): J98.59 - Other diseases of mediastinum, not elsewhere classified Category: Medical Plan: Patient underwent elective thorascopic surgery for an anterior mediastinal mass/thymectomy with Dr. Membreno back on 03/13/2024 Her postop course was mostly uneventful except for a left-sided pleural effusion, which eventually resolved Her pathology came back benign - thymus gland with no malignancy noted (10) Chronic idiopathic constipation: Code(s): K59.04 - Chronic idiopathic constipation Category: Medical Plan: Reinforced increased oral fluids and dietary fiber Continue Bisacodyl 5 mg QD PRN Follow up with GI as scheduled (11) Fibromyalgia: Code(s): M79.7 - Fibromyalgia Category: Medical Plan: Per patient's request, will increase her Gabapentin to 400 mg BID as she felt that the 300 mg dose has not been helping her much lately Follow-up with rheumatology as scheduled (12) Primary osteoarthritis of right knee: Code(s): M17.11 - Unilateral primary osteoarthritis, right knee Category: Medical Plan: Continue Acetaminophen ER 650 mg Q 12 hours PRN Follow up with orthopedics as scheduled (13) Anxiety: Code(s): F41.9 - Anxiety disorder, unspecified Category: Medical Plan: Continue Hydroxyzine 25 mg BID PRN to help with her anxiety (14) Obesity (BMI 30-39.9): Code(s): E66.9 - Obesity, unspecified Category: Medical Plan: Reinforced diet/exercise as tolerated/lose weight Plan Follow up in 4 months Orders: Orders Complete Blood Count Auto Diff 4 Months D64.9 - Anemia, unspecified Thyroid Stimulating Hormone 4 Months E03.9 - Hypothyroidism, unspecified Free T4 (Free Thyroxine) 4 Months E03.9 - Hypothyroidism, unspecified Vitamin B12 and Folate 4 Months E53.8 - Deficiency of other specified B group vitamins Comprehensive Foster. Panel Fast 4 Months E78.00 - Pure hypercholesterolemia, unspecified Lipid Panel 4 Months E78.00 - Pure hypercholesterolemia, unspecified UA CC w/rflx Micro + Cult 4 Months R30.0 - Dysuria Vitamin D 25-OH Total 4 Months E55.9 - Vitamin D deficiency, unspecified Medications: Changed From gabapentin 300 mg PO BID 30 days 60 caps 3RF To gabapentin 400 mg PO BID 60 caps 3RF 30 days Refilled [ROLLATOR] As directed 1 ea 0RF M17.11 - Unilateral primary osteoarthritis, right knee, M47.816 - Spondylosis without myelopathy or radiculopathy, lumbar region, M54.50 - Low back pain, unspecified, M96.1 - Postlaminectomy syndrome, not elsewhere classified, R26.81 - Unsteadiness on feet
--- OUTSIDE RECORDS SUMMARY | 2025-02-27 16:00 | XMS_ITS | Encounter Summary ---
Author Organization [facility] [place] [address] Care Team Providers Care Hadoop Administrator Name Role Phone Truong Colon MD Primary Care Provider Encounter Details Date Type Department Care Team (Late Contact Info) Description 10/30/2024 Lab Requisition [facility] - Main Lab [address] [place] [address] Ally Castañeda MD [address] [place] [address] Spinal stenosis, site unspecified; Chronic [...] [facility] [address] [place] [address] Jennifer Ca MD [address] [place] [address] [phone] (work) documented as of this encounter Procedures [...] mg/dL LAB CHEMISTRY METHOD 10/31/2024 11:08 AM [facility] BUN 11 5 - 25 mg/dL LAB CHEMISTRY METHOD 10/31/2024 11:08 AM [facility] Creatinine 0.92 0.50 - 1.10 mg/dL LAB CHEMISTRY METHOD 10/31/2024 11:08 AM [facility] eGFR 63 >=60 mL/min/1. 73m2 LAB CHEMISTRY METHOD 10/31/2024 11:08 AM [facility] Comment:Calculation based on the Chronic Kidney Disease Epidemiology Collaboration (CKD-EPI) equation refit without adjustment for race. BUN/Creatinine Ratio 12.0 LAB CHEMISTRY METHOD 10/31/2024 11:08 AM EDT [facility] Calcium 8.9 8.5 - 10.5 mg/dL LAB CHEMISTRY METHOD 10/31/2024 11:08 AM [facility] Blood Venous blood specimen / Unknown Venipuncture / Unknown 10/31/2024 7:20 AM EDT 10/31/2024 10:27 AM EDT us Ally Castañeda MD LAB BLOOD ORDERABLES Final Resul t [facility] [address] [place] [address], * (ABNORMAL) Complete blood count (10/31/2024 7:20 [...] Resul t [facility] [address] [place] [address], documented in this encounter Visit Diagnoses Diagnosis Spinal stenosis, site unspecified Chronic kidney disease, unspecified documented in this encounter Care Teams Hadoop Administrator Relationship Specialty Start Date End Date Truong Colon MD [address] [place] PCP - General 05/19/22 documented as of this encounter
--- OUTSIDE RECORDS SUMMARY | 2025-02-27 16:00 | XMS_ITS | Encounter Summary ---
Author Organization [facility] Address [address] [place] [address] Phone Care Team Providers Care Process Helper Name Role Phone Truong Colon MD Primary Care Provider [phone]- [phone] Encounter Details Date Type Department Care Team (Late Contact Info) Description 11/09/2021 Documentation Only [facility] [address] [place] [address] Dimitris Suarez PA [address] [place] [address] Social History Tobacco Use Types [...] [facility] [address] [place] [address] Romero Jimenez MD [address] [place] [address] documented as of this encounter Visit Diagnoses Not on filedocumented in this encounter Care Teams Process Helper Relationship Specialty Start Date End Date Truong Colon MD [address] [place] [address] PCP - General Internal Medicine 03/06/23 documented as of this encounter
--- OUTSIDE RECORDS SUMMARY | 2025-02-27 16:00 | XMS_ITS | Encounter Summary ---
Author Organization [facility] Address [address] [place] [address] Phone Care Team Providers Care Television Writer Name Role Phone Truong Colon MD Primary Care Provider [phone]- [phone] Encounter Details Date Type Department Care Team (Late Contact Info) Description 04/04/2024 Documentation Only [facility] [address] [place] [address] Jasmin Dumont [address] [place] [address] Social History Tobacco Use Types Packs/Day [...] [facility] [address] [place] [address] Romero Jimenez MD [address] [place] [address] [place] [address] documented as of this encounter Visit Diagnoses Not on filedocumented in this encounter Care Teams Television Writer Relationship Specialty Start Date End Date Truong Colon MD [address] [place] [address] PCP - General Internal Medicine 03/06/23 documented as of this encounter
--- OUTSIDE RECORDS SUMMARY | 2025-02-27 16:00 | XMS_ITS | Patient Health Record ---
Author Organization [facility] Address [address] [place] [address] Care Team Providers Care French Polisher Name Role Phone Radha Pena Primary Care Provider UnavailTimoteo Sneed Unavailable [phone] Allergies Allergen (clinical drug ingredient) Drug/Non Drug [...] Problem Screening for malignant neoplasm of colon ([id number]) Encounter for screening for malignant neoplasm of colon (Z12.11) Active confirmed Problem Screening for malignant neoplasm of rectum (798818105) Encounter for screening for malignant neoplasm of rectum (Z12.12) Active confirmed Problem Gastroesophageal reflux disease (448290649) Gastroesophageal reflux disease, esophagitis presence not specified (K21.9) Active confirmed Problem Constipation (37284404) Constipation, unspecified constipation type (K59.00) Active confirmed Plan Of Treatment Future Test Test Name Order Date UPPER GI ENDOSCOPY 11/30/2015 COLONOSCOPY 11/30/2015 Insurance Providers Payer Name Payer Address Payer Phone Subscriber Number Group Number Insured Name Patient Relationship to Insured Coverage Start Date Coverage End Date [facility] [address] [place] [address] [id number] NOE SALDIVAR Self - patient is the insured Medical (General) History Medical History History ICD Code Hypertension Kidney disease--mild renal insuffciency- -GFR of 40--Dr. Meza Denies [place],DM,CVA,Lung disease Neg. colonoscopy in 2004 exc ept for diverticulosis and internal hemorrhoids-- Neg. EGD in 2004--Dr. Bear Breast cancer on the left in 2013--lumpe ctomy and XRT Hypothyroidism GERD Surgical History Surgery Date(Month/Year) Cholecystectomy--Dr. Banks 2014 Bladder suspension Left lumpectomy for breast cancer in 4
--- OUTSIDE RECORDS SUMMARY | 2025-02-27 16:00 | XMS_ITS | Encounter Summary ---
Author Organization [facility] Address [address] [place] [address] Phone Care Team Providers Care Lead Informatica Developer Name Role Phone Truong Colon MD Primary Care Provider +1- [phone] Encounter Details Date Type Department Care Team (Late Contact Info) Description 05/04/2022 Documentation Only [facility] [address] [place] [address] Kylie Gabriel [address] [place] [address] Social History Tobacco Use Types [...] [facility] [address] [place] [address] Romero Jimenez MD [address] [place] [address] [place] [address] documented as of this encounter Visit Diagnoses Not on filedocumented in this encounter Care Teams Lead Informatica Developer Relationship Specialty Start Date End Date Truong Colon MD [address] [place] [address] PCP - General Internal Medicine 03/06/23 documented as of this encounter
--- OUTSIDE RECORDS SUMMARY | 2025-02-27 16:00 | XMS_ITS | Clinical Summary ---
Author Organization [facility] Address [address] [place] [address] Phone Care Team Providers Care Support Group Manager Name Role Phone Truong Colon MD Primary Care Provider +1 [phone] Allergies Active Allergy Reactions Criticality Noted Date [...] left breast in female, estrogen receptor positive ([facility] V24, [facility] V28) 07/03/2023 Iron deficiency anemia 05/18/2022 Acquired hypothyroidism 03/28/2017 Gastroesophageal reflux disease without esophagi tis 03/28/2017 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 Surgical History Surgery Date Site/Laterality Comments LUMBAR DISC SURGERY PROCEDURE:LUMBAR DISC SURGERY Medical History Medical History Date Comments Malignant neoplasm of upper- outer quadrant of left female breast ([facility] V24, [facility] V28) DX:Malignant neoplasm of upp [...] Visit [facility] Hematology Oncology [address] [place] [id number] Jennifer Ca MD [address] [place] [address] Health Maintenance Due Date Last [...] mmol/L LAB CHEMISTRY METHOD 10/31/2024 11:08 AM [facility] Potassium 4.7 3.5 - 5.5 mmol/L LAB CHEMISTRY METHOD 10/31/2024 11:08 AM [facility] Chloride 109 96 - 110 mmol/L LAB CHEMISTRY METHOD 10/31/2024 11:08 AM [facility] CO2 30 21 - 32 mmol/L LAB CHEMISTRY METHOD 10/31/2024 11:08 AM [facility] Anion Gap 3 3 - 11 LAB CHEMISTRY METHOD 10/31/2024 11:08 AM [facility] Glucose 78 70 - 100 mg/dL LAB CHEMISTRY METHOD 10/31/2024 11:08 AM [facility] BUN 11 5 - 25 mg/dL LAB CHEMISTRY METHOD 10/31/2024 11:08 AM [facility] Creatinine 0.92 0.50 - 1.10 mg/dL LAB CHEMISTRY METHOD 10/31/2024 11:08 AM [facility] eGFR 63 >=60 mL/min/1. 73m2 LAB CHEMISTRY METHOD 10/31/2024 11:08 AM EDT [facility] Comment:Calculation based on the Chronic Kidney Disease Epidemiology Collaboration (CKD-EPI) equation refit without adjustment for race. BUN/Creatinine Ratio 12.0 LAB CHEMISTRY METHOD 10/31/2024 11:08 AM EDT [facility] Calcium 8.9 8.5 - 10.5 mg/dL LAB CHEMISTRY METHOD 10/31/2024 11:08 AM EDT [facility] Blood Venous blood specimen / Unknown Venipuncture / Unknown 10/31/2024 7:20 AM EDT 10/31/2024 10:27 AM EDT us Ally Castañeda MD LAB BLOOD ORDERABLES Final Resul t [facility] [address] [place] [address], * DXA BONE DENSITY STUDY 1+ SITS AXIAL SKEL (10/07/2021 10:23 AM EDT) Anatomical Region Laterality Modality Bone Densitometr y 05/10/2021 11:5 1 AM EST Narrative 10/07/2021 4:32 PM EDT Clinical history: other osteoporosis Scans of the lumbar spine and hips were performed on a [employer] fan beam bone densitometer. Bone mineral density [...] spine and hips were performed on a RemitPro/[employer] beam bone densitometer. Bone mineral density measurements [...] Group ID:[id number] Type:Not on file Address: [address] [place] [address] Care Teams Support Group Manager Relationship Specialty Start Date End Date Truong Colon MD [address] [place] [address] [address] [place], [place] PCP - General 05/19/22
--- OUTSIDE RECORDS SUMMARY | 2025-02-27 16:00 | XMS_ITS | Encounter Summary ---
Author Organization [facility] Address [address] [place] [address] Phone Care Team Providers Care Hotel Custodian Name Role Phone Truong Colon MD Primary Care Provider +1- [phone] Encounter Details Date Type Department Care Team (Late Contact Info) Description 05/27/2024 Documentation Only [facility] [address] [place] [address] Kylie Gabriel [address] [place] [address] Social History Tobacco Use Types [...] [facility] [address] [place] [address] Romero Jimenez MD [address] [place] [address] [place] [address] documented as of this encounter Visit Diagnoses Not on filedocumented in this encounter Care Teams Hotel Custodian Relationship Specialty Start Date End Date Truong Colon MD [address] [place] [address] PCP - General Internal Medicine 03/06/23 documented as of this encounter
--- OUTSIDE RECORDS SUMMARY | 2025-02-27 16:00 | XMS_ITS | Data Portability ---
Author Organization [email or web address] [facility] Address [address] [place] [address] Care Team Providers Care Chair Inspector And Leveler Name Role Phone HIM CCA OTHER ABRAN GALICIA Primary Care Provider Assessment Encounter Date Assessment Date Assessment LastModified by Organization Details LastModified Time 12/24/2024 12/24/2024 I have reviewed and agree with the assessment and plan as documented by the facility assistant. I provided real-time medical direction for this [...] None recorded. Imaging electrocard iogram 2024 025 [facility], [address] [place] [address], [id number] 19:47:50 Medication Orders None recorded. Patient TargetsNo targets recorded. Patient InstructionsNo instructions recorded. Reason for Referral None Reported. Results Created Date Observation Date Name Description Value Unit Range Abnormal Flag Note LastModifiedBy Organization Detail LastModifiedTime 12/25/19 25 12/24/2024 michael beyergr am No observ ation record ed. [email or web address] [address], [address] 12/24/2024 22:02:22 Result Notes None recorded. Medical Equipment None Reported. Allergies Allergen ID Allergen Name Allergen Category Reaction Reaction Severity Criticality Documentation Date Start Date Code Code System Note Provider Name and Address Organization Details Recorded Time 38392 Product containin g penicilli n (product) medicatio n Not available Not available Not available 12/24/2024 64938 [id number] SNOMED Not Available [employer] - production [...] [degF] 100 % 100 % 67 /min 014128. 608 g 57 /min 160/75 mm[Hg] 123/74 mm[Hg] Not Available [employer] - production 5 19:27:12 Social History None [...] ICD10 Code Diagnosis IMO Codes Diagnosis Note [id number] Antonia Harrison MD [facility] ED Medical [facility] [address] [place] [address] 12/24/2024 19:02:49 12/25/2024 21:09:24 Precordial pain 98110660 R07.2 21311 Health Concerns Section Related Observation LastModified by Organization Detai ls LastModified Time None Recorded Concern Status LastModified by Organization Details LastModified Time None Recorded Advance Directives Directive None Recorded Payers Insurance Date Sequence Insurance Name Policy Number Policy Salazar Covered Member ID Salazar Member ID Guarantor Name 12/24/2024 1 [facility] - DOS ON OR AFTER 2022 - DUAL ELIGIBLE - SNF OPTIONS AND ONE CARE (MEDICARE REPLACEMENT/AD VANTAGE - HMO) Jacinda Blancas [id number] Jacinda Blancas Notes Date Note Type Note [...] This test has been updated by the facility assistant, Lilia Chino at (12/24/2024 21:30:52). The changes are marked in bold. EKG test performed. Attachments uploaded as part of this test result can be found under Documents section. .................... .................... .................... .................... .................... .................... .................... . Coil Winder Strap Note From Lilia Chino: Sent to a [...] warm, dry; 12 lead ECG: uploaded to [employer]; [facility] consulted and pt is advised she needs to be transported to ED for further eval. Pt agrees to transport, but was hesitant to go to ED without doctor's recommendation. 911 called; Allergies verified: PCN; 5 med rights verified; Baby ASA 324mg PO administered. 20g IV placed in left AC. Pt care transferred to [facility]. [facility] Lab Orders: electrocardiogram: Performed .................... .................... .................... .................... .................... .................... .................... . [facility] Consulted: Antonia Harrison .................... .................... .................... .................... .................... .................... .................... . Disposition: Fulfilled Antonia Harrison MD [address] [facility] [facility], [place], [address], CEDRIC JORGENSEN 12/25/2024 17:47:31 OBGyn Episode No OBEpisode recorded.
--- OUTSIDE RECORDS SUMMARY | 2025-02-27 16:00 | XMS_ITS | Encounter Summary ---
Author Organization [facility] [place], Address [address] [place] [address] Phone Care Team Providers Care Crop Setting Out Machine Operator Name Role Phone Truong Colon MD Primary Care Provider +1- [phone] Encounter Details Date Type Department Care Team (Late Contact Info) Description 01/21/2024 Orders Only [facility] [address] [place] [address] Dimitris Suarez PA [address] [place] [address] [place] [address] Stage 3a chronic kidney disease [...] And [facility] [address] [place] [address] Romero Jimenez MD [address] [place] [address] [place] [address] documented as of this encounter Visit Diagnoses Diagnosis Stage 3a chronic kidney disease (HCC) Essential hypertension Peripheral vascular disease (HCC) Peripheral vascular disease Renal osteodystrophy documented in this encounter Care Teams Crop Setting Out Machine Operator Relationship Specialty Start Date End Date Truong Colon MD [address] [place] [address] PCP - General Internal Medicine 03/06/23 documented as of this encounter
--- OUTSIDE RECORDS SUMMARY | 2025-02-27 16:00 | XMS_ITS | Encounter Summary ---
Author Organization [facility] Address [address] [place] [address] Phone Care Team Providers Care Rig Mechanic Name Role Phone Truong Colon MD Primary Care Provider +1- [phone] Encounter Details Date Type Department Care Team (Late Contact Info) Description 06/03/2024 Documentation Only [facility] [address] [place] [address] Kylie Gabriel [address] [place] [address] Social History Tobacco Use Types [...] [facility] [address] [place] [address] Romero Jimenez MD [address] [place] [address] [place] [address] documented as of this encounter Visit Diagnoses Not on filedocumented in this encounter Care Teams Rig Mechanic Relationship Specialty Start Date End Date Truong Colon MD [address] [place] [address] PCP - General Internal Medicine 03/06/23 documented as of this encounter
--- OUTSIDE RECORDS SUMMARY | 2025-02-27 16:00 | XMS_ITS | Encounter Summary ---
Author Organization [facility] Address [address] [place] [address] Phone Care Team Providers Care Hoop Flaring Machine Operator Name Role Phone Truong Colon MD Primary Care Provider +1- [phone] Encounter Details Date Type Department Care Team (Late Contact Info) Description 12/21/2021 Documentation Only [facility] [address] [place] [address] Dimitris Suarez PA [address] [place] [address] Social History Tobacco Use Types [...] Services [facility] [address] [place] [address] Romero Jimenez MD [address] [facility] [place] [address] documented as of this encounter Visit Diagnoses Not on filedocumented in this encounter Care Teams Hoop Flaring Machine Operator Relationship Specialty Start Date End Date Truong Colon MD [address] [place] [address] PCP - General Internal Medicine 03/06/23 documented as of this encounter
--- OUTSIDE RECORDS SUMMARY | 2025-02-27 16:00 | XMS_ITS | Encounter Summary ---
Author Organization [facility] Address [address] [place] [address] Phone Care Team Providers Care Senior Architect Name Role Phone Truong Colon MD Primary Care Provider +1- [phone] Encounter Details Date Type Department Care Team (Late Contact Info) Description 04/10/2024 Documentation Only [facility] [address] [place] [address] Kylie Gabriel [address] [place] [address] Social History Tobacco Use [...] [facility] [address] [place] [address] Romero Jimenez MD [address] [place] [address] [place] [address] documented as of this encounter Visit Diagnoses Not on filedocumented in this encounter Care Teams Senior Architect Relationship Specialty Start Date End Date Truong Colon MD [address] [place] [address] PCP - General Internal Medicine 03/06/23 documented as of this encounter
--- OUTSIDE RECORDS SUMMARY | 2025-02-27 16:00 | XMS_ITS | Encounter Summary ---
Author Organization [facility] Address [address] [place] [address] Phone Care Team Providers Care Canine Service Instructor Trainer Name Role Phone Truong Colon MD Primary Care Provider +1- [phone] Encounter Details Date Type Department Care Team (Late Contact Info) Description 10/26/2023 Documentation Only [facility] [address] [place] [address] Kylie Gabriel [address] [place] [address] Social History Tobacco Use Types [...] [facility] [address] [place] [address] Romero Jimenez MD [address] [place] [address] [place] [address] documented as of this encounter Visit Diagnoses Not on filedocumented in this encounter Care Teams Canine Service Instructor Trainer Relationship Specialty Start Date End Date Truong Colon MD [address] [place] [address] PCP - General Internal Medicine 03/06/23 documented as of this encounter
--- OUTSIDE RECORDS SUMMARY | 2025-02-27 16:00 | XMS_ITS ---
Author Organization [employer] [facility] Address [address] [place] [address] Care Team Providers Care Priming Mixture Carrier Name Role Phone Truong Colon MD Primary Care Provider +1- [phone] Active Problems Problem Noted Date Diagnosed Date Iron deficiency anemia 05/18/2022 Malignant neoplasm of upper- outer quadrant of left breast in female, estrogen receptor positive 03/28/2017 Gastroesophageal reflux disease without esophagi tis 03/28/2017 Acquired hypothyroidism 03/28/2017 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 Current Oncology Plans No current plan information found. Past Plans Radiation Treatments * No radiation treatments are documented for this patient in [facility]. Treatments may have been administered in another system.
--- OUTSIDE RECORDS SUMMARY | 2025-02-27 16:00 | XMS_ITS | Encounter Summary ---
Author Organization [facility] Address [address] [place] [address] Phone Care Team Providers Care Cook Helper Pastry Name Role Phone Truong Colon MD Primary Care Provider +1- [phone] Encounter Details Date Type Department Care Team (Late Contact Info) Description 04/11/2022 Documentation Only [facility] [address] [place] [address] Kylie Gabriel [address] [place] [address] Social History Tobacco Use Types [...] [facility] [address] [place] [address] Romero Jimenez MD [address] [place] [address] [place] [address] documented as of this encounter Visit Diagnoses Not on filedocumented in this encounter Care Teams Cook Helper Pastry Relationship Specialty Start Date End Date Truong Colon MD [address] [place] [address] PCP - General Internal Medicine 03/06/23 documented as of this encounter
--- OUTSIDE RECORDS SUMMARY | 2025-02-27 16:00 | XMS_ITS | Encounter Summary ---
Author Organization [facility] Address [address] [place] [address] Phone Care Team Providers Care Modeling Teacher Name Role Phone Truong Colon MD Primary Care Provider +1- [phone] Encounter Details Date Type Department Care Team (Late Contact Info) Description 05/12/2021 Documentation Only [facility] [address] [place] [address] Eligio Meza MD [address] [place] [address] [place] [address] Social History Tobacco Use Types [...] [facility] [address] [place] [address] Romero Jimenez MD [address] [place] [address] [place] [address] documented as of this encounter Visit Diagnoses Not on filedocumented in this encounter Care Teams Modeling Teacher Relationship Specialty Start Date End Date Truong Colon MD [address] [place] [address] PCP - General Internal Medicine 03/06/23 documented as of this encounter
--- OUTSIDE RECORDS SUMMARY | 2025-02-27 16:00 | XMS_ITS | Encounter Summary ---
Author Organization [facility] Address [address] [place] [address] Phone Care Team Providers Care School Psychological Examiner Name Role Phone Truong Colon MD Primary Care Provider +1- [phone] Encounter Details Date Type Department Care Team ([facility] Contact Info) Description 01/23/2025 Orders Only [facility] [address] [place] [address] Kylie Gabriel [address] [place] [address] Anemia in chronic kidney disease; [...] Of [facility] [address] [place] [place] [address] Romero Jimenez MD [address] [facility] [place] [address] documented as of this encounter Visit Diagnoses Diagnosis Anemia in chronic kidney disease Stage 3b chronic kidney disease (HCC) Iron deficiency anemia, not otherwise specified documented in this encounter Care Teams School Psychological Examiner Relationship Specialty Start Date End Date Truong Colon MD [address] [place] [address] PCP - General Internal Medicine 03/06/23 documented as of this encounter
--- OUTSIDE RECORDS SUMMARY | 2025-02-27 16:00 | XMS_ITS | Encounter Summary ---
Author Organization [facility] Address [address] [place] [address] Phone Care Team Providers Care Vp Global Marketing Solutions Name Role Phone Truong Colon MD Primary Care Provider +1- [phone] Encounter Details Date Type Department Care Team (Late Contact Info) Description 04/24/2024 Documentation Only [facility] [address] [place] [address] Kylie Gabriel [address] [place] [address] Social History Tobacco Use Types [...] [facility] [address] [place] [address] Romero Jimenez MD [address] [place] [address] [place] [address] documented as of this encounter Visit Diagnoses Not on filedocumented in this encounter Care Teams Vp [employer] Marketing Solutions Relationship Specialty Start Date End Date Truong Colon MD [address] [place] [address] PCP - General Internal Medicine 03/06/23 documented as of this encounter
--- OUTSIDE RECORDS SUMMARY | 2025-02-27 16:00 | XMS_ITS | Encounter Summary ---
Author Organization [facility] Address [address] [place] [address] Phone Care Team Providers Care Golf Club Head Inspector Name Role Phone Truong Colon MD Primary Care Provider +1- [phone] Encounter Details Date Type Department Care Team ([facility] Contact Info) Description 12/26/2024 Orders Only [facility] [address] [place] [address] Kylie Gabriel [address] [place] [address] Anemia in chronic kidney disease; [...] Transplant Services [facility] [address] [place] [address] Romero Jimenez MD [address] [facility] [address] [place] [address] documented as of this encounter Visit Diagnoses Diagnosis Anemia in chronic kidney disease Stage 3b chronic kidney disease (HCC) Iron deficiency anemia, not otherwise specified documented in this encounter Care Teams Golf Club Head Inspector Relationship Specialty Start Date End Date Truong Colon MD [address] [place] [address] PCP - General Internal Medicine 03/06/23 documented as of this encounter
--- OUTSIDE RECORDS SUMMARY | 2025-02-27 16:00 | XMS_ITS | Clinical Summary ---
Author Organization [employer] [employer] [facility] Address [address] [place] [address] Care Team Providers Care Clinical Laboratory Manager Name Role Phone Truong Colon MD Primary Care Provider +1- [phone] Allergies Active Allergy Reactions Criticality Noted Date [...] age to complete this topic Care Teams Clinical Laboratory Manager Relationship Specialty Start Date End Date Truong Colon MD [address] [place] [address] PCP - General Internal Medicine 05/19/22
--- OUTSIDE RECORDS SUMMARY | 2025-02-27 16:00 | XMS_ITS | Encounter Summary ---
Author Organization [facility] Address [address] [place] [address] Phone Care Team Providers Care Director Of Content And Programming Name Role Phone Truong Colon MD Primary Care Provider +1- [phone] Encounter Details Date Type Department Care Team ([facility] Contact Info) Description 11/28/2024 Orders Only [facility] [address] [place] [address] Kylie Gabriel [address] [place] [address] Anemia in chronic kidney disease; [...] Services [facility] [address] [place] [address] Romero Jimenez MD [address] [facility] [place] [address] documented as of this encounter Visit Diagnoses Diagnosis Anemia in chronic kidney disease Stage 3b chronic kidney disease (HCC) Iron deficiency anemia, not otherwise specified documented in this encounter Care Teams Director Of Content And Programming Relationship Specialty Start Date End Date Truong Colon MD [address] [place] [address] PCP - General Internal Medicine 03/06/23 documented as of this encounter
--- OUTSIDE RECORDS SUMMARY | 2025-02-27 16:00 | XMS_ITS | Encounter Summary ---
Author Organization [facility] Address [address] [place] [address] Phone Care Team Providers Care In Store Representative Name Role Phone Truong Colon MD Primary Care Provider +1- [phone] Encounter Details Date Type Department Care Team ([facility] Contact Info) Description 05/16/2024 Orders Only [facility] [address] [place] [address] Kylie Gabriel [address] [place] [address] Anemia in chronic kidney disease; [...] And Transplant [facility] [address] [place] [address] Romero Jimenez MD [address] [place] [address] documented as of this encounter Visit Diagnoses Diagnosis Anemia in chronic kidney disease Stage 3b chronic kidney disease (HCC) Iron deficiency anemia, not otherwise specified documented in this encounter Care Teams In Store Representative Relationship Specialty Start Date End Date Truong Colon MD [address] [place] [address] PCP - General Internal Medicine 03/06/23 documented as of this encounter
--- OUTSIDE RECORDS SUMMARY | 2025-02-27 16:00 | XMS_ITS | Encounter Summary ---
Author Organization [facility] Address [address] [place] [address] Phone Care Team Providers Care Drum Handler Name Role Phone Truong Colon MD Primary Care Provider +1- [phone] Encounter Details Date Type Department Care Team (Late Contact Info) Description 04/10/2024 Documentation Only [facility] [address] [place] [address] Kylie Gabriel [address] [place] [address] Social History Tobacco Use Types [...] [facility] [address] [place] [address] Romero Jimenez MD [address] [place] [address] [place] [address] documented as of this encounter Visit Diagnoses Not on filedocumented in this encounter Care Teams Drum Handler Relationship Specialty Start Date End Date Truong Colon MD [address] [place] [address] PCP - General Internal Medicine 03/06/23 documented as of this encounter
--- OUTSIDE RECORDS SUMMARY | 2025-02-27 16:00 | XMS_ITS | Encounter Summary ---
Author Organization [facility] Address [address] [place] [address] Phone Care Team Providers Care Billing Assistant Name Role Phone Truong Colon MD Primary Care Provider +1- [phone] Encounter Details Date Type Department Care Team ([facility] Contact Info) Description 10/03/2024 Orders Only [facility] [address] [place] [address] Kylie Gabriel [address] [place] [address] Anemia in chronic kidney [...] Transplant Services [facility] [address] [place] [address] Romero Jimenez MD [address] [place] [address] documented as of this encounter Visit Diagnoses Diagnosis Anemia in chronic kidney disease Stage 3b chronic kidney disease (HCC) Iron deficiency anemia, not otherwise specified documented in this encounter Care Teams Billing Assistant Relationship Specialty Start Date End Date Truong Colon MD [address] [place] [address] PCP - General Internal Medicine 03/06/23 documented as of this encounter
--- OUTSIDE RECORDS SUMMARY | 2025-02-27 16:00 | XMS_ITS | Encounter Summary ---
Author Organization [facility] Address [address] [place] [address] Phone Care Team Providers Care Manager Cancer Name Role Phone Truong Colon MD Primary Care Provider +1- [phone] Encounter Details Date Type Department Care Team (Late Contact Info) Description 04/14/2022 Documentation Only [facility] [address] [place] [address] Eligio Meza MD [address] [place] [address] [place] [address] Social History Tobacco Use Types [...] [facility] [address] [place] [address] Romero Jimenez MD [address] [place] [address] [place] [address] documented as of this encounter Visit Diagnoses Not on filedocumented in this encounter Care Teams Manager Cancer Relationship Specialty Start Date End Date Truong Colon MD [address] [place] [address] PCP - General Internal Medicine 03/06/23 documented as of this encounter
--- OUTSIDE RECORDS SUMMARY | 2025-02-27 16:00 | XMS_ITS | Patient Health Record ---
Author Organization [facility] camilla Bly Address [address] [place] [address] Care Team Providers Care Pile Driving Nozzleman Name Role Phone Isaiah DURAN, [place] Primary Care Provider Boby Laguerre Unavailable [phone] Allergies Allergen (clinical drug ingredient) Drug/Non Drug Allergy documented on EMR Reaction Allergy Type Onset Date Status sennosides, SHELTER Senna rash and machado Drug Allergy Active [...] Problem Acquired hammer toe of right foot (7391010356259806 ) Other hammer toe(s) (acquired), right foot (M20.41) Active confirmed Response to treatment, Improvemen t Problem Acquired hammer toe of left foot (7123806386002051 ) Other hammer toe(s) (acquired), left foot (M20.42) Active confirmed Response to treatment, Improvemen t Problem Bilateral atherosclerosis of arteries of lower limbs (disorder) (1004953520837035 7) Atherosclerosis of menominee artery of both lower extremities, with unspecified presence of clinical manifestation (I70.203) Active confirmed Vital Signs Blood pressure diastolic 64 mm Hg 12/15/2024 Height 5 ft 9in in 12/15/2024 Blood pressure systolic 127 mm Hg 12/15/2024 Weight 230 lbs 12/15/2024 BMI 33.96 kg/m2 12/15/2024 Procedures Procedure Date Ordered Date Performed Result Body Sit e 44582-YXQLELG NAIL, 6 OR MORE 05/05/2024 N/A 43148-WFEW SKIN LESIONS, OVER 4 05/05/2024 N/A 46903-AORACAL NAIL, 6 OR MORE 07/31/2024 N/A 39523-JPCC SKIN LESIONS, OVER 4 07/31/2024 N/A 02842-JXCIYUC NAIL, 6 OR MORE 12/15/2024 N/A 55335-JLTI SKIN LESIONS, OVER 4 12/15/2024 N/A Encounters Encounter Location Date Provider Diagnosis [address] [address] 05/05/2024 Boby Chapman Atherosclerosis of menominee artery of both lower extremities, with unspecified presence of clinical manifestation I70.203 ; Tinea unguium B35.1 ; Pain in right toe(s) M79.674 ; Pain in left toe(s) M79.675 ; Other hammer toe(s) (acquired), right foot M20.41 and Other hammer toe(s) (acquired), left foot M20.[address] [address] 07/31/2024 Boby Chapman Atherosclerosis of menominee artery of both lower extremities, with unspecified presence of clinical manifestation I70.203 ; Tinea unguium B35.1 ; Pain in right toe(s) M79.674 ; Pain in left toe(s) M79.675 ; Other hammer toe(s) (acquired), right foot M20.41 and Other hammer toe(s) (acquired), left foot M20.[address] [address] 12/15/2024 Boby Chapman Atherosclerosis of menominee artery of both lower extremities, with unspecified presence of clinical manifestation I70.203 ; Tinea unguium B35.1 ; Pain in right toe(s) M79.674 and Pain in left toe(s) M79.[address] [address] 10/30/2024 Boby Chapman Assessments Encounter Date Diagnosis (ICD Code) Assessment Notes Treatment Notes Treatment Clinical Notes Section Notes 07/31/2024 Tinea unguium (ICD-10 - B35.1) 07/31/2024 Atherosclerosis of menominee artery of both lower extremities, with unspecified presence of clinical manifestation (ICD-10 - I70.203) 12/15/2024 Tinea unguium (ICD-10 - B35.1) 12/15/2024 Atherosclerosis of menominee artery of both lower extremities, with unspecified presence of clinical manifestation (ICD-10 - I70.203) 05/05/2024 Tinea unguium (ICD-10 - B35.1) 05/05/2024 Atherosclerosis of menominee artery of both lower extremities, with unspecified presence of clinical manifestation (ICD-10 - I70.203) 12/15/2024 Pain in right toe(s) (ICD-10 - M79.674) 05/05/2024 Pain in right toe(s) (ICD-10 - M79.674) 07/31/2024 Pain in right toe(s) (ICD-10 - M79.674) 07/31/2024 Pain in left toe(s) (ICD-10 - M79.675) 05/05/2024 Pain in left toe(s) (ICD-10 - M79.675) 12/15/2024 Pain in left toe(s) (ICD-10 - M79.675) 05/05/2024 Other hammer toe(s) (acquired), right foot (ICD-10 - M20.41) 07/31/2024 Other hammer toe(s) (acquired), right foot (ICD-10 - M20.41) 07/31/2024 Other hammer toe(s) (acquired), left foot (ICD-10 - M20.42) 05/05/2024 Other hammer toe(s) (acquired), left foot (ICD-10 - M20.42) Plan Of Treatment Pending Test Test Name Order Date 56697-MRMXJRA NAIL, 6 OR MORE 03/21/2017 44487-TFGWOGN NAIL, 6 OR MORE 05/30/2017 47007-CPQTNDV NAIL, 6 OR MORE 08/06/2017 56916-MWOBCIJ NAIL, 6 OR MORE 10/25/2017 68941-MGDBKPW NAIL, 6 OR MORE 01/07/2018 71730-EEWWTCP NAIL, 6 OR MORE 03/20/2018 75809-RWQWDMR NAIL, 6 OR MORE 08/14/2018 63305-CWIQJFC NAIL, 6 OR MORE 10/17/2018 89602-GJGGHRH NAIL, 6 OR MORE 01/16/2019 97882-VZZBNKK NAIL, 6 OR MORE 04/03/2019 75383-GPRXFLK NAIL, 6 OR MORE 08/27/2019 77889-CVUWWRS NAIL, 6 OR MORE 12/18/2019 12888-CLJRPGW NAIL, 6 OR MORE 07/15/2020 34081-QKNQPPE NAIL, 6 OR MORE 09/29/2020 03104-HZKLNVP NAIL, 6 OR MORE 12/02/2020 93927-IMFJXBA NAIL, 6 OR MORE 02/17/2021 87614-YOEKOON NAIL, 6 OR MORE 06/16/2021 14508-LOVUTOY NAIL, 6 OR MORE 11/10/2021 61004-NRHYTPA NAIL, 6 OR MORE 04/05/2022 62559-COAQDCM NAIL, 6 OR MORE 06/15/2022 19775-ANMWUCX NAIL, 6 OR MORE 08/24/2022 40167-PUKVCGN NAIL, 6 OR MORE 11/16/2022 06531-HXVPSEN NAIL, 6 OR MORE 01/25/2023 79045-QMHGMPC NAIL, 6 OR MORE 04/11/2023 43605-ULHQYCI NAIL, 6 OR MORE 06/27/2023 42977-WAVURKD NAIL, 6 OR MORE 08/30/2023 57376-ZZWCGTL NAIL, 6 OR MORE 11/08/2023 89576-FKPHOCH NAIL, 6 OR MORE 01/24/2024 01555-MZKCKGP NAIL, 6 OR MORE 05/05/2024 61519-CBOIUMW NAIL, 6 OR MORE 07/31/2024 66666-BCCBWIY NAIL, 6 OR MORE 05/06/2020 72755-FMTTTNU NAIL, 6 OR MORE 06/16/2019 52631-MQVWHEN NAIL, 6 OR MORE 06/13/2018 63355-RMUFHFH NAIL, 6 OR MORE 01/19/2022 10164-CCZAKEE NAIL, 6 OR MORE 12/15/2024 83684-KEJYHVQ NAIL, 6 OR MORE 08/29/2021 58625-QJFSZJX NAIL, 1-5 11/15/2015 02992-ORNXAJN NAIL, 1-5 01/03/2017 44322-TJWOWAI NAIL, 1-5 01/24/2016 80732-EQFRAAC NAIL, -04/05/2016 64410-PYACNEC NAIL, -06/14/2016 02222-KHLITOD NAIL, -08/23/2016 65648-YMTJREX NAIL, 04-2711/01/2016 79211-Guuq Destruction, 05-0611/01/2016 79540-Ycid Destruction, 05-0601/03/2017 86663-Xuqz Destruction, 05-0603/21/2017 91458-Zdai Destruction, 05-0605/30/2017 99848-Dgtp Destruction, 05-0608/06/2017 90510-Zvrq Destruction, 05-0612/02/2020 27899-Cxer Destruction, 05-0609/29/2020 84786-Qybv Destruction, 05-0607/15/2020 61796-Jbbi Destruction, 05-0612/18/2019 97171-Xwmw Destruction, 05-0608/27/2019 19025-Udvk Destruction, 05-0604/03/2019 77750-Msat Destruction, 05-0601/16/2019 78969-Ipdt Destruction, 05-0610/17/2018 77153-Aupp Destruction, 05-0608/14/2018 90426-Bean Destruction, 05-0610/25/2017 63096-Ggdo Destruction, 05-0601/07/2018 75522-Uiar Destruction, 05-0606/13/2018 81397-Bliv Destruction, 05-0606/16/2019 96073-Rpue Destruction, 05-0605/06/2020 06100-Ffrz Destruction, 05-0601/24/2024 08284-Flct Destruction, 05-0611/08/2023 09655-Cdcd Destruction, 05-0608/30/2023 52821-Inmg Destruction, 05-0606/27/2023 29207-Fbut Destruction, 05-0604/11/2023 25564-Vqey Destruction, 05-0601/25/2023 09028-Wuih Destruction, 05-0611/16/2022 18818-Yhgp Destruction, 05-0608/24/2022 42730-Dxvk Destruction, 05-0606/15/2022 07088-Fhyl Destruction, 05-062022 23099-Demg Destruction, 1-14 11/10/2021 70020-Oibq Destruction, -14 06/16/2021 67357-Gwtx Destruction, -14 02/17/2021 42478-Xtzx Destruction, 1-14 08/29/2021 75104-Vswc Destruction, 1-14 03/20/2018 77964-Hlim Destruction, 1-14 01/19/2022 44837-Nwguqwra Plate 01/19/2022 17625-Uysuuqxq Plate 08/29/2021 99624-Jxqflznt Plate 02/17/2021 20419-Sbjltdvu Plate 06/16/2021 23928-Brjdompi Plate 11/10/2021 77756-Qleyyziq Plate 04/05/2022 52168-Jplrekce Plate 06/15/2022 96408-Hbquvjxh Plate 08/24/2022 02129-Kbtqffsv Plate 11/16/2022 44169-Itynrlxy Plate 01/25/2023 06238-Hvndsvnb Plate 04/11/2023 31739-Ydszscef Plate 06/27/2023 83980-Suimbdlu Plate 08/30/2023 23864-Akwpkttq Plate 11/08/2023 14589-Yczmwkjx Plate 05/06/2020 98603-Kyilufnp Plate 12/18/2019 78741-Dbhsfspd Plate 07/15/2020 49610-Xnmortwy Plate 09/29/2020 48865-Msggufqk Plate 12/02/2020 09667-Subwyqek Plate 11/01/2016 26772-Ffsqwtns Plate Each Additional 86702-Cjzrcgvv Plate Each Additional 12/2023 56459-Zvkkjksf Plate Each Additional 09/2023 97934-Subwmrlb Plate Each Additional 19592-Jzwkkybx Plate Each Additional 08/2022 44373-Nrmucwwp Plate Each Additional 88559-Vjzetphi Plate Each Additional 07/2022 64718-Algdckow Plate Each Additional 27334-Kdgtmrhw Plate Each Additional 38122-Reztgtdl Plate Each Additional 09825-NPKL SKIN LESIONS, OVER 4 12/16/19 24228-NHBR SKIN LESIONS, OVER 4 01/20/20 66725-QDKA SKIN LESIONS, OVER 4 08/30/19 89257-LDEX SKIN LESIONS, OVER 4 04/05/20 47850-EAVY SKIN LESIONS, OVER 4 11/11/19 59319-FWKC SKIN LESIONS, OVER 4 06/16/19 31375-IORC SKIN LESIONS, OVER 4 02/18/20 98592-TKKT SKIN LESIONS, OVER 4 06/15/19 65177-IWEL SKIN LESIONS, OVER 4 08/25/19 29393-FHQM SKIN LESIONS, OVER 4 11/17/19 70775-ZKHQ SKIN LESIONS, OVER 4 01/26/20 81240-DGLX SKIN LESIONS, OVER 4 04/11/20 16865-DHGG SKIN LESIONS, OVER 4 06/27/19 76259-RPAO SKIN LESIONS, OVER 4 08/30/19 68187-UFEG SKIN LESIONS, OVER 4 11/08/19 53680-WLRC SKIN LESIONS, OVER 4 08/01/19 28977-LCSN SKIN LESIONS, OVER 4 01/24/20 95946-GNWQ SKIN LESIONS, OVER 4 05/05/19 87228-CXFT SKIN LESIONS, OVER 4 05/06/19 62667-XRYF SKIN LESIONS, OVER 4 06/16/19 29922-SZPP SKIN LESIONS, OVER 4 06/13/19 19 88116-IBVF SKIN LESIONS, OVER 4 11/15/19 16 20490-IYRB SKIN LESIONS, OVER 4 05/30/19 18 78556-FSAP SKIN LESIONS, OVER 4 03/21/20 17 89124-QDIK SKIN LESIONS, OVER 4 08/07/19 18 81520-HGSY SKIN LESIONS, OVER 4 01/08/20 18 95163-AVCR SKIN LESIONS, OVER 4 10/26/19 18 26264-PTSH SKIN LESIONS, OVER 4 01/04/20 17 87891-OTDT SKIN LESIONS, OVER 4 11/02/19 17 27401-YHBS SKIN LESIONS, OVER 4 04/05/20 16 56797-IXLK SKIN LESIONS, OVER 4 08/24/19 17 38035-KTDL SKIN LESIONS, OVER 4 06/14/19 17 96390-DMHE SKIN LESIONS, OVER 4 01/24/20 16 92050-PYWN SKIN LESIONS, OVER 4 08/16/19 16 14762-UCMW SKIN LESIONS, OVER 4 08/12/20 21 46955-ILYH SKIN LESIONS, OVER 4 09/30/19 21 23014-STSY SKIN LESIONS, OVER 4 07/16/19 21 07301-BUXC SKIN LESIONS, OVER 4 12/18/19 20 03051-CUZH SKIN LESIONS, OVER 4 03/20/20 18 98642-VCYN SKIN LESIONS, OVER 4 08/15/19 19 88488-JIGA SKIN LESIONS, OVER 4 10/18/19 19 82055-LWOX SKIN LESIONS, OVER 4 01/17/20 19 59433-XHEO SKIN LESIONS, OVER 4 04/03/20 19 53793-SYIB SKIN LESIONS, OVER 4 08/27/19 20 G1463-TEXVMATL DYSTROPHIC NAILS ANY # N8292-JGIKXZZE DYSTROPHIC NAILS ANY # I6718-PEJLIABR DYSTROPHIC NAILS ANY # U3338-EAVNVAIQ DYSTROPHIC NAILS ANY # Q2527-KFGBQKDP DYSTROPHIC NAILS ANY # N8972-QXNKWVJH DYSTROPHIC NAILS ANY # T3158-AZWIWVKO DYSTROPHIC NAILS ANY # H1105-PEWURIKW DYSTROPHIC NAILS ANY # Next Appt Details Provider Name:Boby Chapman , 03/30/2025 01:30:00 PM, [address] [facility], [facility] [address], [place], [address], Insurance Providers Payer Name Payer Address Payer Phone Subscriber Number Group Number Insured Name Patient Relationship to Insured Coverage Start Date Coverage End Date [facility] [employer] Claims [address] [place] [id number] Jacinda Benavidez Self - patient is the insured Medical (General) History Medical History History ICD Code Anemia Anxiety Arthritis Back,Hip,and Knee pain Cataracts High blood pressure Liver disease Reflux Thyroid disorder Surgical History Surgery Date(Month/Year) gall bladder 12/11/2014 Unspecified Right Hand SX 03/13/17 Hospitalization History Reason Date(Month/Year) C- back pain 10/03/24
--- OUTSIDE RECORDS SUMMARY | 2025-02-27 16:00 | XMS_ITS | Encounter Summary ---
Author Organization [facility] Address [address] [place] [address] Phone Care Team Providers Care Communications Equipment Operator Name Role Phone Truong Colon MD Primary Care Provider +1- [phone] Encounter Details Date Type Department Care Team ([facility] Contact Info) Description 08/08/2024 Orders Only [facility] [address] [place] [address] Kylie Gabriel [address] [place] [address] Anemia in chronic kidney disease; [...] Visit [facility] [address] [place] [address] Romero Jimenez MD [address] [place] [address] documented as of this encounter Visit Diagnoses Diagnosis Anemia in chronic kidney disease Stage 3b chronic kidney disease (HCC) Iron deficiency anemia, not otherwise specified documented in this encounter Care Teams Communications Equipment Operator Relationship Specialty Start Date End Date Truong Colon MD [address] [place] [address] PCP - General Internal Medicine 03/06/23 documented as of this encounter
--- OUTSIDE RECORDS SUMMARY | 2025-02-27 16:00 | XMS_ITS | Encounter Summary ---
Author Organization [facility] Address [address] [place] [address] Phone Care Team Providers Care Nurse Sexual Assault Name Role Phone Truong Colon MD Primary Care Provider +1- [phone] Encounter Details Date Type Department Care Team (Late Contact Info) Description 10/29/2023 Documentation Only [facility] [address] [place] [address] Kylie Gabriel [address] [place] [address] Social History Tobacco Use Types [...] [facility] [address] [place] [address] Romero Jimenez MD [address] [place] [address] [place] [address] documented as of this encounter Visit Diagnoses Not on filedocumented in this encounter Care Teams Nurse Sexual Assault Relationship Specialty Start Date End Date Truong Colon MD [address] [place] [address] PCP - General Internal Medicine 03/06/23 documented as of this encounter
--- OUTSIDE RECORDS SUMMARY | 2025-02-27 16:00 | XMS_ITS | Encounter Summary ---
Author Organization [facility] Address [address] [place] [address] Phone Care Team Providers Care Surgical Services Manager Name Role Phone Truong Colon MD Primary Care Provider +1- [phone] Encounter Details Date Type Department Care Team (Late Contact Info) Description 08/04/2024 Documentation Only [facility] [address] [place] [address] Kylie Gabriel [address] [place] [address] Social History Tobacco Use Types [...] [facility] [address] [place] [address] Romero Jimenez MD [address] [place] [address] [place] [address] documented as of this encounter Visit Diagnoses Not on filedocumented in this encounter Care Teams Surgical Services Manager Relationship Specialty Start Date End Date Truong Colon MD [address] [place] [address] PCP - General Internal Medicine 03/06/23 documented as of this encounter
--- OUTSIDE RECORDS SUMMARY | 2025-02-27 16:00 | XMS_ITS | Encounter Summary ---
Author Organization [facility] Address [address] [place] [address] Phone Care Team Providers Care Process Line Operator Name Role Phone Truong Colon MD Primary Care Provider +1- [phone] Encounter Details Date Type Department Care Team ([facility] Contact Info) Description 09/05/2024 Orders Only [facility] [address] [place] [address] Kylie Gabriel [address] [place] [address] Anemia in chronic kidney disease; [...] Visit [facility] [address] [place] [address] Romero Jimenez MD [address] [place] [address] documented as of this encounter Visit Diagnoses Diagnosis Anemia in chronic kidney disease Stage 3b chronic kidney disease (HCC) Iron deficiency anemia, not otherwise specified documented in this encounter Care Teams Process Line Operator Relationship Specialty Start Date End Date Truong Colon MD [address] [place] [address] PCP - General Internal Medicine 03/06/23 documented as of this encounter
--- OUTSIDE RECORDS SUMMARY | 2025-02-27 16:00 | XMS_ITS | Encounter Summary ---
Author Organization [facility] Address [address] [place] [address] Phone Care Team Providers Care Clinical Cytogenetics Director Name Role Phone Truong Colon MD Primary Care Provider +1- [phone] Encounter Details Date Type Department Care Team ([facility] Contact Info) Description 02/20/2025 Orders Only [facility] [address] [place] [address] Kylie Gabriel [address] [place] [address] Anemia in chronic kidney disease; [...] [facility] [address] [place] [address] Romero Jimenez MD [address] [place] [address] documented as of this encounter Visit Diagnoses Diagnosis Anemia in chronic kidney disease Stage 3b chronic kidney disease (HCC) Iron deficiency anemia, not otherwise specified documented in this encounter Care Teams Clinical Cytogenetics Director Relationship Specialty Start Date End Date Truong Colon MD [address] [place] [address] PCP - General Internal Medicine 03/06/23 documented as of this encounter
--- OUTSIDE RECORDS SUMMARY | 2025-02-27 16:00 | XMS_ITS | Encounter Summary ---
Author Organization [facility] Address [address] [place] [address] Phone Care Team Providers Care Mild Disabilities Teacher Name Role Phone Truong Colon MD Primary Care Provider +1- [phone] Encounter Details Date Type Department Care Team (Late Contact Info) Description 08/12/2024 Documentation Only [facility] [address] [place] [address] [place] [address] [place] [address] Social History Tobacco Use Types Packs/Day [...] [facility] [address] [place] [address] Romero Jimenez MD [address] [place] [address] [place] [address] documented as of this encounter Visit Diagnoses Not on filedocumented in this encounter Care Teams Mild Disabilities Teacher Relationship Specialty Start Date End Date Truong Colon MD [address] [place] [address] PCP - General Internal Medicine 03/06/23 documented as of this encounter
--- OUTSIDE RECORDS SUMMARY | 2025-02-27 16:01 | XMS_ITS | Encounter Summary ---
Author Organization [facility] Address [address] [place] [address] Phone Care Team Providers Care Press Operator Name Role Phone Truong Colon MD Primary Care Provider +1- [phone] Encounter Details Date Type Department Care Team (Late Contact Info) Description 10/26/2023 Documentation Only [facility] [address] [place] [address] Kylie Gabriel [address] [place] [address] Social History Tobacco Use Types [...] [facility] [address] [place] [address] Romero Jimenez MD [address] [place] [address] [place] [address] documented as of this encounter Visit Diagnoses Not on filedocumented in this encounter Care Teams Press Operator Relationship Specialty Start Date End Date Truong Colon MD [address] [place] [address] PCP - General Internal Medicine 03/06/23 documented as of this encounter
--- OUTSIDE RECORDS SUMMARY | 2025-02-27 16:01 | XMS_ITS | Encounter Summary ---
Author Organization [facility] Address [address] [place] [address] Phone Care Team Providers Care Investor Relations Manager Name Role Phone Truong Colon MD Primary Care Provider +1- [phone] Encounter Details Date Type Department Care Team (Late Contact Info) Description 01/31/2024 Documentation Only [facility] [address] [place] [address] Kylie Gabriel [address] [place] [address] Social History Tobacco Use Types [...] [facility] [address] [place] [address] Romero Jimenez MD [address] [place] [address] [place] [address] documented as of this encounter Visit Diagnoses Not on filedocumented in this encounter Care Teams Investor Relations Manager Relationship Specialty Start Date End Date Truong Colon MD [address] [place] [address] PCP - General Internal Medicine 03/06/23 documented as of this encounter
--- OUTSIDE RECORDS SUMMARY | 2025-02-27 16:01 | XMS_ITS | Encounter Summary ---
Author Organization [facility] Address [address] [place] [address] Phone Care Team Providers Care Child Welfare Consultant Name Role Phone Truong Colon MD Primary Care Provider +1- [phone] Encounter Details Date Type Department Care Team (Late Contact Info) Description 01/14/2024 Documentation Only [facility] [address] [place] [place] [address] [place] [address] [place] [address] Social History Tobacco Use Types Packs/Day [...] Children [address] [place] [address] Romero Jimenez MD [address] [facility] [place] [address] documented as of this encounter Visit Diagnoses Not on filedocumented in this encounter Care Teams Child Welfare Consultant Relationship Specialty Start Date End Date Truong Colon MD [address] [place] [address] PCP - General Internal Medicine 03/06/23 documented as of this encounter
--- OUTSIDE RECORDS SUMMARY | 2025-02-27 16:01 | XMS_ITS | Encounter Summary ---
Author Organization [facility] [place], Address [address] [place] [address] Phone Care Team Providers Care Telephone Worker Name Role Phone Truong Colon MD Primary Care Provider +1- [phone] Encounter Details Date Type Department Care Team (Late Contact Info) Description 01/23/2024 Documentation Only [facility] [place], - [place] [address] [place] [address] Jasmin Dumont [address] [place] [address] Social History Tobacco Use Types Packs/Day [...] [facility] [place], [address] [facility] [place] [address] Romero Jimenez MD [address] [place] [address] documented as of this encounter Visit Diagnoses Not on filedocumented in this encounter Care Teams Telephone Worker Relationship Specialty Start Date End Date Truong Colon MD [address] [place] [address] PCP - General Internal Medicine 03/06/23 documented as of this encounter
--- OUTSIDE RECORDS SUMMARY | 2025-02-27 16:01 | XMS_ITS | Encounter Summary ---
Author Organization [facility] [place] [address] Care Team Providers Care Loan Administrator Name Role Phone Truong Colon MD Primary Care Provider +1 [phone] Encounter Details Date Type Department Care Team (Late st Contact Info) Description 10/10/2024 Lab Requisition [facility] - Main Lab [address] [facility] [place] [id number] Ally Castañeda MD [address] [place] [address] Malignant neoplasm of unspecified site of unspecified female breast ([facility]/HCC V24, [facility] V28); Hypothyroidism, unspecified; Vitamin D [...] Description 11/04/2025 10:30 AM EDT Office Visit [facility] Hematology Oncology [address] [place] [phone] Jennifer Ca MD [address] [place] [phone] documented as of this encounter Procedures Procedure Name Priority Date/Time Associated Diagnosis Comments THYROID STIMULATING HORMONE WITH REFLEX TO FREE T4 AND FREE T3 Routine 10/10/2024 5:37 AM EDT Malignant neoplasm of unspecified site of unspecified female breast ([facility]/HCC V24, [facility]/HCC V28) Hypothyroidism, unspecified Vitamin D deficiency, unspecified Vitamin B12 deficiency anemia, unspecified Spinal stenosis, site unspecified Chronic kidney disease, stage 3 unspecified ([facility]/HCC V24, [facility]/HCC V28) VITAMIN D 25 HYDROXY Routine 10/10/2024 5:37 AM EDT Malignant neoplasm of unspecified site of unspecified female breast ([facility]/HCC V24, [facility]/HCC V28) Hypothyroidism, unspecified Vitamin D [...] of unspecified female breast (CMS/HCC V24, [facility]/HCC V28) Hypothyroidism, unspecified Vitamin D deficiency, unspecified Vitamin B12 deficiency anemia, unspecified Spinal stenosis, site unspecified Chronic kidney disease, stage 3 unspecified (CMS/HCC V24, CMS/HCC V28) VITAMIN B12 Routine 10/10/2024 5:37 AM EDT Malignant neoplasm of unspecified site of unspecified female breast ([facility] V24, [facility] V28) Hypothyroidism, unspecified Vitamin D deficiency, unspecified Vitamin B12 deficiency anemia, unspecified Spinal stenosis, site unspecified Chronic kidney disease, stage 3 unspecified ([facility] V24, [facility] V28) COMPREHENSIVE METABOLIC PANEL Routine 10/10/2024 5:37 AM EDT Malignant neoplasm of unspecified site of unspecified female breast ([facility] V24, [facility] V28) Hypothyroidism, unspecified Vitamin D deficiency, unspecified Vitamin B12 deficiency anemia, unspecified Spinal stenosis, site unspecified Chronic kidney disease, stage 3 unspecified ([facility] V24, [facility] V28) documented in this encounter Results * Vitamin D 25 hydroxy (10/10/2024 5:37 AM EDT) Vit D, 25-Hydroxy 52.0 30.0 - 80.0 ng/mL LAB CHEMISTRY METHOD 10/10/2024 1:00 PM EDT [facility] Blood Venous blood specimen / Unknown Venipuncture / Unknown 10/10/2024 5:37 AM EDT 10/10/2024 9:30 AM EDT us Ally Castañeda MD LAB BLOOD ORDERABLES Final Resul t [facility] [address] [place] [address], [place] [phone] * Folate (10/10/2024 5:37 AM EDT) Folate 12.9 2.8 - 17.0 ng/ml LAB CHEMISTRY METHOD 10/10/2024 11:35 AM EDT [facility] Blood Venous blood specimen / Unknown Venipuncture / Unknown 10/10/2024 5:37 AM EDT 10/10/2024 9:30 AM EDT us Ally Castañeda MD LAB BLOOD ORDERABLES Final Resul t Performing Organization Address [facility]/ZIP Co de Phone Number [facility] [address] [place] [address], [place] [phone] * Vitamin B12 (10/10/2024 5:37 AM EDT) Vitamin B-12 371 250 - 900 pcg/mL LAB CHEMISTRY METHOD 10/10/2024 11:35 AM EDT [facility] Blood Venous blood specimen / Unknown Venipuncture / Unknown 10/10/2024 5:37 AM EDT 10/10/2024 9:30 AM EDT us Ally Castañead MD LAB BLOOD ORDERABLES Final Resul t Performing Organization Address [facility] de Phone Number [facility] [address] [place] [address], * Thyroid stimulating hormone with reflex to free t4 and free t3 (10/10/2024 5:37 AM EDT) Pathologist [facility] TSH 2.96 0.40 - 4.00 mcIU/mL LAB CHEMISTRY METHOD 10/10/2024 1:01 PM EDT [facility] Blood Venous blood specimen / Unknown Venipuncture / Unknown 10/10/2024 5:37 AM EDT 10/10/2024 9:30 AM EDT us Ally Castañeda MD LAB BLOOD ORDERABLES Final Resul t Performing Organization Address [facility]/ZIP Co de Phone Number [facility] [address] [place] [address], [place] [phone] * (ABNORMAL) Comprehensive metabolic panel (10/10/2024 5:37 AM EDT) Sodium 130(L) 133 - 145 mmol/L LAB CHEMISTRY METHOD 10/10/2024 11:35 AM EDT [facility] Potassium 4.9 3.5 - 5.5 [...] LAB CHEMISTRY METHOD 10/10/2024 11:35 AM EDT [facility] Albumin 2.3(L) 3.2 - 5.0 g/dL LAB CHEMISTRY METHOD 10/10/2024 11:35 AM EDT [facility] Total Bilirubin 0.4 0.0 - 1.4 mg/dL LAB CHEMISTRY METHOD 10/10/2024 11:35 AM EDT [facility] Blood Venous blood specimen / Unknown Venipuncture / Unknown 10/10/2024 5:37 AM EDT 10/10/2024 9:30 AM EDT Ally Castañeda MD LAB BLOOD ORDERABLES Final Resul t [facility] [address] [place] [address], [place] [phone] * (ABNORMAL) Complete blood count (10/10/2024 5:37 AM EDT) WBC 9.2 4.8 - 10.8 K/mcL LAB HEMETOLOGY METHOD 10/10/2024 10:58 AM EDT [facility] RBC 3.10(L) 3.80 - 4.80 M/mcL LAB HEMETOLOGY METHOD 10/10/2024 10:58 AM EDT [facility] Hemoglobin 8.8(L) 11.5 - 16.0 g/dL LAB HEMETOLOGY METHOD 10/10/2024 10:58 AM EDT [facility] Hematocrit 28.0(L) 35.0 - 47.0 % LAB HEMETOLOGY METHOD 10/10/2024 10:58 AM EDT [facility] MCV 89.7 79.0 - 98.0 FL LAB HEMETOLOGY METHOD 10/10/2024 10:58 AM EDT [facility] MCH 28.2 27.0 - 32.0 pcg LAB HEMETOLOGY METHOD 10/10/2024 10:58 AM EDT [facility] MCHC 31.4(L) 32.0 - 37.0 g/dL LAB HEMETOLOGY METHOD 10/10/2024 10:58 AM EDT [facility] RDW 13.2 11.0 - 15.0 % LAB HEMETOLOGY METHOD 10/10/2024 10:58 AM EDT [facility] Platelets 261 130 - 400 K/mcL LAB HEMETOLOGY METHOD 10/10/2024 10:58 AM EDT [facility] MPV 11.0 7.0 - 11.0 FL LAB HEMETOLOGY METHOD 10/10/2024 10:58 AM EDT [facility] NRBC 0.0 <1.0 % LAB HEMETOLOGY METHOD 10/10/2024 10:58 AM EDT [facility] NRBC Absolute 0.00 <0.10 K/mcL LAB HEMETOLOGY METHOD 10/10/2024 10:58 AM EDT [facility] Blood Venous blood specimen / Unknown Venipuncture / Unknown 10/10/2024 5:37 AM EDT 10/10/2024 9:30 AM EDT us Ally Castañeda MD LAB BLOOD ORDERABLES Final Resul t [facility] [address] [place] [address], documented in this encounter Visit Diagnoses Diagnosis Malignant neoplasm of unspecified site of unspecified female breast (CMS/HCC V24, CMS/HCC V28) Hypothyroidism, unspecified Vitamin D deficiency, unspecified Vitamin B12 deficiency anemia, unspecified Spinal stenosis, site unspecified Chronic kidney disease, stage 3 unspecified (CMS/HCC V24, CMS/HCC V28) documented in this encounter Care Teams Loan Administrator Relationship Specialty Start Date End Date Truong Colon MD [address] [place] PCP - General 05/19/22 documented as of this encounter
--- OUTSIDE RECORDS SUMMARY | 2025-02-27 16:02 | XMS_ITS | Encounter Summary ---
Author Organization [facility] [place] [address] Care Team Providers Care Brain Surgeon Name Role Phone Truong Colon MD Primary Care Provider Encounter Details Date Type Department Care Team (Late Contact Info) Description 10/16/[address] [facility] - Main Lab [address] [facility] [place] [address] Ally Castañeda MD [address] [place] [address] Spinal stenosis, site unspecified; Chronic [...] [facility] Hematology Oncology [address] [place] [address] Jennifer Ca MD [address] [place] [address] [phone] (work) documented as of this encounter Procedures [...] mmol/L LAB CHEMISTRY METHOD 10/17/2024 12:13 PM [facility] Potassium 5.6(H) 3.5 - 5.5 mmol/L LAB CHEMISTRY METHOD 10/17/2024 12:13 PM [facility] Chloride 103 96 - 110 mmol/L LAB CHEMISTRY METHOD 10/17/2024 12:13 PM [facility] CO2 28 21 - 32 mmol/L LAB CHEMISTRY METHOD 10/17/2024 12:13 PM [facility] Anion Gap 5 3 - 11 LAB CHEMISTRY METHOD 10/17/2024 12:13 PM [facility] Glucose 77 70 - 100 mg/dL LAB CHEMISTRY METHOD 10/17/2024 12:13 PM [facility] BUN 23 5 - 25 mg/dL LAB CHEMISTRY METHOD 10/17/2024 12:13 PM [facility] Creatinine 1.02 0.50 - 1.10 mg/dL LAB CHEMISTRY METHOD 10/17/2024 12:13 PM [facility] eGFR 55(L) >=60 mL/min/1. 73m2 LAB CHEMISTRY METHOD 10/17/2024 12:13 PM [facility] Comment:Calculation based on the Chronic Kidney Disease Epidemiology Collaboration (CKD-EPI) equation refit without adjustment for race. BUN/Creatinine Ratio 22.5 LAB CHEMISTRY METHOD 10/17/2024 12:13 PM T [facility] Calcium 8.9 8.5 - 10.5 mg/dL LAB CHEMISTRY METHOD 10/17/2024 12:13 PM [facility] Blood Venous blood specimen / Unknown Venipuncture / Unknown 10/17/2024 7:36 AM EDT 10/17/2024 11:30 AM EDT us Ally Castañeda MD LAB BLOOD ORDERABLES Final Resul t [facility] [address] [place] [address], [place] [phone] * (ABNORMAL) Complete blood count (10/17/2024 7:36 AM EDT) WBC 6.5 4.8 - 10.8 K/mcL LAB HEMETOLOGY METHOD 10/17/2024 12:00 PM [facility] RBC 3.40(L) 3.80 - 4.80 M/mcL LAB HEMETOLOGY METHOD 10/17/2024 12:00 PM [facility] Hemoglobin 9.2(L) 11.5 - 16.0 g/dL LAB HEMETOLOGY METHOD 10/17/2024 12:00 PM [facility] Hematocrit 30.9(L) 35.0 - 47.0 % LAB HEMETOLOGY METHOD 10/17/2024 12:00 PM [facility] MCV 91.2 79.0 - 98.0 FL LAB HEMETOLOGY METHOD 10/17/2024 12:00 PM [facility] MCH 27.1 27.0 - 32.0 pcg LAB HEMETOLOGY METHOD 10/17/2024 12:00 PM [facility] MCHC 29.8(L) 32.0 - 37.0 g/dL LAB HEMETOLOGY METHOD 10/17/2024 12:00 PM EDT [facility] RDW 13.2 11.0 - 15.0 % LAB HEMETOLOGY METHOD 10/17/2024 12:00 PM EDT [facility] Platelets 495(H) 130 - 400 K/mcL LAB HEMETOLOGY METHOD 10/17/2024 12:00 PM EDT [facility] MPV 10.0 7.0 - 11.0 FL LAB HEMETOLOGY METHOD 10/17/2024 12:00 PM EDT [facility] NRBC 0.0 <1.0 % LAB HEMETOLOGY METHOD 10/17/2024 12:00 PM EDT [facility] NRBC Absolute 0.00 <0.10 K/mcL LAB HEMETOLOGY METHOD 10/17/2024 12:00 PM EDT [facility] Blood Venous blood specimen / Unknown Venipuncture / Unknown 10/17/2024 7:36 AM EDT 10/17/2024 11:30 AM EDT us Ally Castañeda MD LAB BLOOD ORDERABLES Final Resul t [facility] [address] [place] [address], documented in this encounter Visit Diagnoses Diagnosis Spinal stenosis, site unspecified Chronic kidney disease, unspecified documented in this encounter Care Teams Brain Surgeon Relationship Specialty Start Date End Date Truong Colon MD [address] [place] [address] Dr Eric Christian [place] PCP - General 05/19/22 documented as of this encounter
--- OUTSIDE RECORDS SUMMARY | 2025-02-27 16:02 | XMS_ITS | Encounter Summary ---
Author Organization [facility] [place] [address] Care Team Providers Care Terrazzo Worker Name Role Phone Truong Colon MD Primary Care Provider [phone] [phone] Encounter Details Date Type Department Care Team (Late Contact Info) Description 10/22/2024 Lab Requisition [facility] - Main Lab [address] [facility] [place] [address] Ally Castañeda MD [address] [place], [place] [phone] Essential (primary) hypertension; Anemia, unspecified Social History [...] Visit [facility] Hematology Oncology [address] [place] [address] Jennifer Ca MD [address] [place] [address] documented as of this encounter [...] (ABNORMAL) Ferritin (10/22/2024 5:26 AM EDT) Pathologist [facility] Ferritin 283(H) 8 - 252 ng/mL LAB CHEMISTRY METHOD 10/22/2024 9:41 AM EDT [facility] Blood Venous blood specimen / Unknown Venipuncture / Unknown 10/22/2024 5:26 AM EDT 10/22/2024 8:36 AM EDT us Ally Castañeda MD LAB BLOOD ORDERABLES Final Resul t [facility] [address] [place] [address], * (ABNORMAL) Basic metabolic panel (10/22/2024 5:26 AM EDT) Pathologist [facility] Sodium 140 133 - 145 mmol/L LAB [...] 23.3 LAB CHEMISTRY METHOD 10/22/2024 9:41 AM [facility] Calcium 9.0 8.5 - 10.5 mg/dL LAB CHEMISTRY METHOD 10/22/2024 9:41 AM [facility] Blood Venous blood specimen / Unknown Venipuncture / Unknown 10/22/2024 5:26 AM EDT 10/22/2024 8:36 AM EDT us Ally Castañeda MD LAB BLOOD ORDERABLES Final Resul t [facility] [address] [place] [address], * (ABNORMAL) Complete blood count (10/22/2024 5:26 AM EDT) WBC 5.7 4.8 - 10.8 K/mcL LAB HEMETOLOGY METHOD 10/22/2024 9:09 AM EDT [facility] RBC 3.20(L) 3.80 - 4.80 M/mcL LAB HEMETOLOGY METHOD 10/22/2024 9:09 AM [facility] Hemoglobin 8.6(L) 11.5 - 16.0 g/dL LAB HEMETOLOGY METHOD 10/22/2024 9:09 AM [facility] Hematocrit 28.7(L) 35.0 - 47.0 % LAB HEMETOLOGY METHOD 10/22/2024 9:09 AM [facility] MCV 90.8 79.0 - 98.0 FL LAB HEMETOLOGY METHOD 10/22/2024 9:09 AM [facility] MCH 27.2 27.0 - 32.0 pcg LAB HEMETOLOGY METHOD 10/22/2024 9:09 AM [facility] MCHC 30.0(L) 32.0 - 37.0 g/dL LAB HEMETOLOGY METHOD 10/22/2024 9:09 AM [facility] RDW 13.4 11.0 - 15.0 % LAB HEMETOLOGY METHOD 10/22/2024 9:09 AM [facility] Platelets 383 130 - 400 K/mcL LAB HEMETOLOGY METHOD 10/22/2024 9:09 AM [facility] MPV 10.0 7.0 - 11.0 FL LAB HEMETOLOGY METHOD 10/22/2024 9:09 AM [facility] NRBC 0.0 <1.0 % LAB HEMETOLOGY METHOD 10/22/2024 9:09 AM [facility] NRBC Absolute 0.00 <0.10 K/mcL LAB HEMETOLOGY METHOD 10/22/2024 9:09 AM [facility] Blood Venous blood specimen / Unknown Venipuncture / Unknown 10/22/2024 5:26 AM EDT 10/22/2024 8:36 AM EDT Ally Castañeda MD LAB BLOOD ORDERABLES Final Resul t [facility] [address] [place] [address], documented in this encounter Visit Diagnoses Diagnosis Essential (primary) hypertension Unspecified essential hypertension Anemia, unspecified documented in this encounter Care Teams Terrazzo Worker Relationship Specialty Start Date End Date Truong Colon MD [address] [place] [address] Dr [address] [place], [place] PCP - General 05/19/22 documented as of this encounter
--- OUTSIDE RECORDS SUMMARY | 2025-02-27 16:03 | XMS_ITS | Clinical Summary ---
Author Organization [facility] Address [address] [place] [address] [address] [place] [address] Phone Care Team Providers Care Shipping Room Supervisor Name Role Phone Dimple Vergara MD [...] Devices Not on file Insurance [facility] MEDICARE REPLACEMENT [facility] MEDICARE REPLACEMENT [facility] MEDICARE [facility]PLACEMENT [facility] MEDICARE REPLACEMENT [facility] MEDICARE REPLACEMENT [facility] MEDICARE REPLACEMENT [facility] MEDICARE REPLACEMENT [facility] MEDICARE REPLACEMENT [facility] MEDICARE REPLACEMENT Care Teams Shipping Room Supervisor Relationship Specialty Start Date End Date Dimple Vergara MD [address] [place] [address] PCP - General 11/13/13 Additional Source Comments The information contained in this document represents components of the legal health record. It is not the complete legal health record.[facility]
--- OUTSIDE RECORDS SUMMARY | 2025-02-27 16:03 | XMS_ITS | Encounter Summary ---
Author Organization [facility] [place] [address] Care Team Providers Care Metal Furniture Glazier Name Role Phone Truong Colon MD Primary Care Provider Encounter Details Date Type Department Care Team (Late Contact Info) Description 11/06/2024 Lab Requisition [facility] - Main Lab [address] [facility] [place] [address] Ally Castañeda MD [address] [place] [address] Spinal stenosis, site unspecified; Chronic [...] Description 11/04/2025 10:30 AM EDT Office Visit [facility] Hematology Oncology [address] [place] [address] Jennifer Ca MD [address] [place] [address] documented as of this encounter Visit Diagnoses Diagnosis Spinal stenosis, site unspecified Chronic kidney disease, unspecified documented in this encounter Care Teams Metal Furniture Glazier Relationship Specialty Start Date End Date Truong Colon MD [address] [place] [address] Dr [address] [place], [place] PCP - General 05/19/22 documented as of this encounter
--- OUTSIDE RECORDS SUMMARY | 2025-02-27 16:03 | XMS_ITS | Encounter Summary ---
Author Organization [facility] Address [address] [place] [address] Phone Care Team Providers Care Horse Farm Manager Name Role Phone Truong Colon MD Primary Care Provider +1- [phone] Encounter Details Date Type Department Care Team (Late Contact Info) Description 07/31/2024 Documentation Only [facility] [address] [place] [address] Kylie Gabriel [address] [place] [address] Social History Tobacco Use Types [...] [facility] [address] [place] [address] Romero Jimenez MD [address] [place] [address] [place] [address] documented as of this encounter Visit Diagnoses Not on filedocumented in this encounter Care Teams Horse Farm Manager Relationship Specialty Start Date End Date Truong Colon MD [address] [place] [address] PCP - General Internal Medicine 03/06/23 documented as of this encounter
--- OUTSIDE RECORDS SUMMARY | 2025-02-27 16:03 | XMS_ITS | Clinical Summary ---
Author Organization [facility] [place], Address [address] [place] [address] [place] [address] Phone Care Team Providers Care Battery Assembler Dry Cell Name Role Phone Truong Colon MD Primary Care Provider +1- [phone] Allergies Active Allergy Reactions Criticality Noted Date [...] [facility] [address] [place] [address] Kylie Gabriel Anemia in chronic kidney disease; Stage 3b chronic kidney disease (HCC); Iron deficiency anemia, not otherwise specified 01/23/2025 Orders Only [facility] [address] [place] [id number] Harvey Kylie Anemia in chronic kidney disease; Stage 3b chronic kidney disease (HCC); Iron deficiency anemia, not otherwise specified 12/26/2024 Orders Only [facility] [address] [place] [phone] Harvey, Kylie Anemia in chronic kidney disease; Stage 3b chronic kidney disease (HCC); Iron deficiency anemia, not otherwise specified 12/02/2024 1:40 PM EDT Office Visit [facility] [address] [place] [phone] Romero Jimenez MD Stage 3b chronic kidney disease (HCC) (Primary Dx) 11/28/2024 Orders Only [facility] [address] [place] [phone] [phone] Harvey, Kylie Anemia in chronic kidney disease; [...] Visit [facility] [place], [address] [place] [phone] Romero Jimenez MD [address] [place] [address] Health Maintenance Due Date Last [...] Most Recently Relevant to Health Maintenance Insurance [facility] Dual SNP ([id number]) [place]NA VALLEJO [id number] Care Teams Battery Assembler Dry Cell Relationship Specialty Start Date End Date Truong Colon MD [address] [place] [id number] PCP - General Internal Medicine 03/06/23
--- OUTSIDE RECORDS SUMMARY | 2025-02-27 16:03 | XMS_ITS | Encounter Summary ---
Author Organization [facility] Address [address] [place] [address] Phone Care Team Providers Care Resistance Machine Welder Setter Name Role Phone Truong Colon MD Primary Care Provider +1- [phone] Encounter Details Date Type Department Care Team (Late Contact Info) Description 04/29/2024 Documentation Only [facility] [address] [place] [address] Britt Sol [address] [place] [address] Social History Tobacco [...] [facility] [address] [place] [address] Romero Jimenez MD [address] [place] [address] [place] [address] documented as of this encounter Visit Diagnoses Not on filedocumented in this encounter Care Teams Resistance Machine Welder Setter Relationship Specialty Start Date End Date Truong Colon MD [address] [place] [address] PCP - General Internal Medicine 03/06/23 documented as of this encounter
--- OUTSIDE RECORDS SUMMARY | 2025-02-27 16:03 | XMS_ITS | Encounter Summary ---
Author Organization [facility] Address [address] [place] [address] Phone Care Team Providers Care Patent Examiner Name Role Phone Truong Colon MD Primary Care Provider +1- [phone] Encounter Details Date Type Department Care Team (Late Contact Info) Description 07/02/2024 Documentation Only [facility] [address] [place] [address] [place] [address] [place] [address] Social History Tobacco Use Types Packs/Day [...] [facility] [address] [place] [address] Romero Jimenez MD [address] [place] [address] [place] [address] documented as of this encounter Visit Diagnoses Not on filedocumented in this encounter Care Teams Patent Examiner Relationship Specialty Start Date End Date Truong Colon MD [address] [place] [address] PCP - General Internal Medicine 03/06/23 documented as of this encounter
--- OUTSIDE RECORDS SUMMARY | 2025-02-27 16:03 | XMS_ITS | Encounter Summary ---
Author Organization [facility] Address [address] [place] [address] Phone Care Team Providers Care Handicraft Or Hobby Shop Manager Name Role Phone Truong Colon MD Primary Care Provider +1- [phone] Encounter Details Date Type Department Care Team ([facility] Contact Info) Description 07/11/2024 Orders Only [facility] [address] [place] [address] Kylie Gabriel [address] [place] [address] Anemia in chronic kidney disease; [...] Visit [facility] [address] [place] [address] Romero Jimenez MD [address] [address] [place] [address] documented as of this encounter Visit Diagnoses Diagnosis Anemia in chronic kidney disease Stage 3b chronic kidney disease (HCC) Iron deficiency anemia, not otherwise specified documented in this encounter Care Teams Handicraft Or Hobby Shop Manager Relationship Specialty Start Date End Date Truong Colon MD [address] [place] [address] PCP - General Internal Medicine 03/06/23 documented as of this encounter
--- OUTSIDE RECORDS SUMMARY | 2025-02-27 16:03 | XMS_ITS ---
Author Organization [facility] [place], Address [address] [place] [address] [place] [address] Phone Care Team Providers Care Major Donor Coordinator Name Role Phone Truong Colon MD Primary Care Provider +1- [phone] Active Problems Problem Noted Date Diagnosed Date [...]
--- OUTSIDE RECORDS SUMMARY | 2025-02-27 16:03 | XMS_ITS | Encounter Summary ---
Author Organization [facility] Address [address] [place] [address] Phone Care Team Providers Care Audit Specialist Name Role Phone Truong Colon MD Primary Care Provider +1- [phone] Encounter Details Date Type Department Care Team ([facility] Contact Info) Description 06/13/2024 Orders Only [facility] [address] [place] [address] Kylie Gabriel [address] [place] [address] Anemia in chronic kidney disease; [...] [facility] [address] [place] [place] [address] Romero Jimenez MD [address] [facility] [place] [address] documented as of this encounter Visit Diagnoses Diagnosis Anemia in chronic kidney disease Stage 3b chronic kidney disease (HCC) Iron deficiency anemia, not otherwise specified documented in this encounter Care Teams Audit Specialist Relationship Specialty Start Date End Date Truong Colon MD [address] [place] [address] PCP - General Internal Medicine 03/06/23 documented as of this encounter
--- OUTSIDE RECORDS SUMMARY | 2025-02-27 16:03 | XMS_ITS | Encounter Summary ---
Author Organization [facility] [place] [address] Care Team Providers Care Early Childhood Teacher Name Role Phone Truong Colon MD Primary Care Provider [phone] Encounter Details Date Type Department Care Team (Late Contact Info) Description 10/22/2024 Lab Requisition [facility] - Main Lab [address] [facility] [place] [address] Ally Castañeda MD [address] [place] [address] Spinal stenosis, site unspecified; Chronic [...] Visit [facility] [address] [place] [address] Jennifer Ca MD [address] [place] [address] [phone] (work) documented as of this encounter Procedures [...] LAB CHEMISTRY METHOD 10/23/2024 11:28 AM EDT [facility] Calcium 8.7 8.5 - 10.5 mg/dL LAB CHEMISTRY METHOD 10/23/2024 11:28 AM [facility] Blood Venous blood specimen / Unknown Venipuncture / Unknown 10/23/2024 5:09 AM EDT 10/23/2024 10:13 AM EDT us Ally Castañeda MD LAB BLOOD ORDERABLES Final Resul t [facility] [address] [place] [address], * (ABNORMAL) Complete blood count (10/23/2024 5:09 [...] LAB HEMETOLOGY METHOD 10/23/2024 10:31 AM EDT [facility] RDW 13.7 11.0 - 15.0 % LAB HEMETOLOGY METHOD 10/23/2024 10:31 AM EDT [facility] Platelets 342 130 - 400 K/mcL LAB HEMETOLOGY METHOD 10/23/2024 10:31 AM EDT [facility] MPV 10.0 7.0 - 11.0 FL LAB HEMETOLOGY METHOD 10/23/2024 10:31 AM EDT [facility] NRBC 0.0 <1.0 % LAB HEMETOLOGY METHOD 10/23/2024 10:31 AM EDT [facility] NRBC Absolute 0.00 <0.10 K/mcL LAB HEMETOLOGY METHOD 10/23/2024 10:31 AM EDT [facility] Blood Venous blood specimen / Unknown Venipuncture / Unknown 10/23/2024 5:09 AM EDT 10/23/2024 10:13 AM EDT us Ally Castañeda MD LAB BLOOD ORDERABLES Final Resul t [facility] [address] [place] [address], documented in this encounter Visit Diagnoses Diagnosis Spinal stenosis, site unspecified Chronic kidney disease, unspecified documented in this encounter Care Teams Early Childhood Teacher Relationship Specialty Start Date End Date Truong Colon MD [address] [place] [address] Dr [address] [place] PCP - General 05/19/22 documented as of this encounter
--- OUTSIDE RECORDS SUMMARY | 2025-02-27 16:03 | XMS_ITS | Encounter Summary ---
Author Organization [facility] Address [address] [place] [address] Phone Care Team Providers Care Steeping Press Tender Name Role Phone Truong Colon MD Primary Care Provider +1- [phone] Encounter Details Date Type Department Care Team ([facility] Contact Info) Description 10/31/2024 Orders Only [facility] [address] [place] [address] Kylie Gabriel [address] [place] [address] Anemia in chronic kidney disease; [...] [facility] [address] [place] [address] Romero Jimenez MD [address] [place] [address] documented as of this encounter Visit Diagnoses Diagnosis Anemia in chronic kidney disease Stage 3b chronic kidney disease (HCC) Iron deficiency anemia, not otherwise specified documented in this encounter Care Teams Steeping Press Tender Relationship Specialty Start Date End Date Truong Colon MD [address] [place] [address] PCP - General Internal Medicine 03/06/23 documented as of this encounter
== END 2025-02-27 15:24 | disposition home or self-care (01) ==
LOC: HO.HMCH 14:17
PROVIDERS: PCP Internal Medicine; Visit Provider Internal Medicine
DX: I12.9 Hypertensive chronic kidney disease with stage 1 through stage 4 chronic kidney disease, or unspecified chronic kidney disease (principal); N18.32 Chronic kidney disease, stage 3b; M47.816 Spondylosis without myelopathy or radiculopathy, lumbar region; G44.86 Cervicogenic headache; E03.9 Hypothyroidism, unspecified; M35.00 Sjogren syndrome, unspecified; K21.9 Gastro-esophageal reflux disease without esophagitis; R13.10 Dysphagia, unspecified; J98.59 Other diseases of mediastinum, not elsewhere classified; K59.04 Chronic idiopathic constipation; M79.7 Fibromyalgia; M17.11 Unilateral primary osteoarthritis, right knee; F41.9 Anxiety disorder, unspecified; E66.9 Obesity, unspecified

== ENCOUNTER → 2025-02-27 14:16 | Outpatient (BNVA) | payer OTHER, SELFPAY | PROVIDERS: PCP Internal Medicine; Visit Provider Internal Medicine | DX: I12.9 Hypertensive chronic kidney disease with stage 1 through stage 4 chronic kidney disease, or unspecified chronic kidney disease (principal); M47.816 Spondylosis without myelopathy or radiculopathy, lumbar region; G44.86 Cervicogenic headache; E03.9 Hypothyroidism, unspecified; N18.32 Chronic kidney disease, stage 3b; M35.00 Sjogren syndrome, unspecified; K21.9 Gastro-esophageal reflux disease without esophagitis; R13.10 Dysphagia, unspecified; J98.59 Other diseases of mediastinum, not elsewhere classified; K59.04 Chronic idiopathic constipation; M79.7 Fibromyalgia; M17.11 Unilateral primary osteoarthritis, right knee; F41.9 Anxiety disorder, unspecified; E66.9 Obesity, unspecified; Z68.31 Body mass index [BMI] 31.0-31.9, adult | CPT/HCPCS: 96127; 99212 ==

== ENCOUNTER 2025-03-11 10:38 | Outpatient (AMB) | payer OTHER, SELFPAY ==
--- OUTSIDE RECORDS SUMMARY | 2024-10-30 09:45 | XMS_ITS ---
Author Organization [facility] Address [address] [place] [address] Care Team Providers Care Health And Safety Technician Name Role Phone Isaiah DURAN, Truong Primary Care Provider UnaBoby Bermudez Unavailable [phone] Encounters Encounter Location Date Provider Diagnosis [facility] [address] [address] 10/30/2024 Boby Chapman Plan Of Treatment Next Appt Details Provider Name:Boby Chapman , 03/30/2025 01:30:00 PM, [address] [facility], [place] [address], [place], [address], Progress Notes * Tommie BLANCASOB:[birth year] (79 yo F)Acc No.[id number]:10/30/2024 Progress Note Patient: Jacinda NUNEZ Provider: Alex Chapman DPM :1945 A ge:79 Y S ex:Female Date:10/30/2024 Address:[address] [place] [address], [place], [id number] Pcp:Truong Colon MD Subjective: * Chief Complaints: * * Medical History: Objective: * Vitals: Assessment: Plan: * Treatment: * Images: * The named appointment provid er may or may not be the originator of this progress note, and it is not deemed complete until electronically signed by the appointment provider. Sign off status: Pending * Provider: Alex Chapman DPM Date: 0 10/30/2024 Generated for Yovanny Cohn on: 1 05/11/2024 08:50 PM EST
[2025-03-11 10:44] VITALS: BP 129/64; PULSE 56; BMI 32.6
--- NOTE | 2025-03-11 10:44 | A.OFFVIS_ITS ---
Vital Signs 03/11/25 10:44 Height 5 ft 10 in Weight 227 lb BMI 32.6 BP 129/64 Blood Pressure Location Lt brachial Position Sitting Pulse 56 Intake Visit Reasons: S/P EGD; Dr. Adam Intake Note: Jacinda returns today in follow up s/p EGD. CC: Patient reports that since before having the EGD done she was having an upset stomach, burning sensation, and a lot of belching after meals mostly in the afternoon/evening. Patient also reports that for a few months now she's not been able to contain stool from coming out if she does not grant to the bathroom. Stave Jointer Required: Yes Stave Jointer Language: Yakut Accompanied by: Self / Same As Patient Allergies Penicillins (PENICILLINS) Allergy (Intermediate, Verified 03/11/25 10:50) rash senna Allergy (Intermediate, Verified 03/11/25 10:50) rash HPI Comments Details: 78 y.o F with PMH of who is here for difficulty swallowing. Pt accompanied by her son Stanley. Reports difficulty swallowing ongoing for almost 5 years at this point. Able to swallow thick liquids such as soups but has difficulty with solids or sticky textures such as rice or beans and has to gianna it with sips of water or juice. Sometimes also notices choking with water. No significant weight loss reported. Also has ? hx of sjogrens like sx such as sicca - see rheum note 2022 but pt not on therapy. Last EGD 2015 with HH - pt was not symptomatic at that time. Pt also reports constipation and has to take dulcolax to relieve this but when she does take it, has explosive diarrhea. Taking 10mg BID at present. Minimal fiber intake. Pt ambulatory. Last colo 2016 normal and repeat not recommended due to age. 01/15/25: * Mid esophageal narrowing (dilation) * Hiatal hernia * Gastric polyps * Gastritis (biopsy) * Normal duodenum Path: A. Stomach, biopsy: Gastric antral and body mucosa within normal limits; negative for Helicobacter pylori, intestinal metaplasia and dysplasia. B. Esophagus, lower, biopsy: Squamous mucosa within normal limits; negative for inflammation (including intraepithelial eosinophils), fungal organisms, intestinal metaplasia and dysplasia. C. Esophagus, middle, biopsy: Squamous mucosa within normal limits; negative for inflammation (including intraepithelial eosinophils), fungal organisms, intestinal metaplasia and dysplasia 03/11/25: Here for follow up. Seen with Marika as photography and prints curator. Reports good response to dilation and has been able to liberalize her diet. Reports main issue is belching and epigatric pain after eating. This is despite taking omeprazole 40 daily. TO recall pt with vertebral fractures and CKD stage III. She also mentions severe constipation, unable to defecate more than 1-2 times per week. With this also experiences passive fecal incotinence of small amount of liquid stool. [facility] Medical History Osteoporosis Ambulates with cane Difficulty swallowing Osteoarthritis of right knee BPV (benign positional vertigo) Gait instability Cervicogenic headache Cervicalgia Vertigo Chronic kidney disease, stage III (moderate) Obesity (BMI 30-39.9) Gastritis Benign essential hypertension GERD without esophagitis Acquired hypothyroidism Constipation Lumbar spondylosis Post laminectomy syndrome Connective tissue disease Interstitial lung disease Osteopenia PAC (premature atrial contraction) Sjogrens syndrome Hypothyroid Breast cancer Raynauds disease SAMARA positive Surgical History Status post lumbar spine surgery for decompression of spinal cord History of video-assisted thoracoscopic surgery (VATS) (03/13/24) 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) Hx of colonoscopy Hx of tubal ligation H/O varicose vein stripping History of cataract surgery H/O lumpectomy Hx of cholecystectomy History of back surgery Family History Father Emphysema of lung Cancer Brother Emphysema of lung Mother Bone cancer Son PONV (postoperative nausea and vomiting) Other Arthritis Social History Household Members: Significant Other and Children Housing: Apartment Are you a primary neonatal critical care nurse to a significant other at home: No Do you presently have visiting nurse or other home services: No Alcohol intake: never Comment: pt reports this is her baseline pain Patient Tobacco Use Status: Never used Tobacco e-Cigarette/Vaping Use: Never Used Second Hand Smoke Exposure: No Advance Directives Date on File: 10/07/24 service: No Current occupational status: retired Cognitive needs: No Hearing needs: No Vision needs: Yes (Glasses) Review of Systems Const All systems reviewed & are unremarkable except as noted in HPI and below Physical Exam Exam Exam: No apparent distress Nonicteric Abdomen soft, nondistended Alert and oriented x3, normal gait Vital Signs: Last Vital Signs Pulse 56 03/11/25 10:44 BP 129/64 03/11/25 10:44 BMI result Body Mass Index 32.6 Assessment & Plan Assessment & Plan (1) Dysphagia: Code(s): R13.10 - Dysphagia, unspecified Category: Medical Qualifiers: Dysphagia type: unspecified Qualified Code(s): R13.10 - Dysphagia, unspecified (2) Chronic idiopathic constipation: Code(s): K59.04 - Chronic idiopathic constipation Category: Medical (3) GERD (gastroesophageal reflux disease): Code(s): K21.9 - Gastro-esophageal reflux disease without esophagitis Category: Medical Plan 1. Dysphagia: Resolved since dilation. Can repeat EGD as needed for recurrence of symptoms. 2. Reflux like sx Discussed with the pt that based on EGD no evidence of reflux related esophagitis endoscopically or histologically. Would also recommend avoiding high dose PPI given high risk of vertebral fractures and CKD. Plan: - Stop omeprazole - Start famotidine 20 mg - Take mylanta PRN for break through symptoms. - Suspect most likely has FD, can discuss TCAs in future based on response to above 3. CIC 4. Overflow incontinence Suspect F.I is in the setting of severe constipation. Recommend daily bowel regimen to prevent fecal impaction and overflow incontinence. Plan: - Improve hydration - Add miralax daily - Take bisacodyl 10 if no BMx 2 days Follow up 6 months Medications: New famotidine 20 mg PO DAILY 90 tabs 1RF 90 days polyethylene glycol 3350 (Miralax) 17 grams PO DAILY 510 grams 1RF 30 days alum-mag hydroxide-simeth 400-400-40 mg/5 mL (Mylanta Maximum Strength) 5 mL PO BID PRN 100 mL 1RF indigestion 90 days polyethylene glycol 3350 (Miralax) 17 grams PO DAILY 238 grams 1RF Changed From bisacodyl 5 mg PO BEDTIME 90 days 90 tabs 1RF To bisacodyl if no BM x 2 days despite daily miralax 10 mg (2 x 5 mg) PO BEDTIME PRN 180 tabs 1RF constipation 90 days Discontinued omeprazole TAKE 1 CAPSULE BY MOUTH EVERY DAY Discontinued Reason: No Longer Medically Relevant 40 mg PO DAILY@0630 90 caps 1RF Coding Level of Care Code Est Pt Level 4 (13725) Complex EM visit Add On G2211 Diagnoses Dysphagia, unspecified type R13.10 Dysphagia type: unspecified Chronic idiopathic constipation K59.04 GERD (gastroesophageal reflux disease) K21.9
--- OUTSIDE RECORDS SUMMARY | 2025-03-11 20:49 | XMS_ITS | Encounter Summary ---
Author Organization [facility] Address [address] [place] [address] Encounters * CPT with Medical instED at [facility] on 2024-12-25 { reasonForRequest : high bp [...] warm, dry; 12 lead [facility] C consulted andpt is advised she needs to be transported to ED for further eval. Pt agrees to transport, but was hesitant to go to ED without doctor's recommendation. 911 called; Allergies verified: PCN; 5 med rights verified; Baby ASA 324mg PO administered. 20g IV placed in left AC. Pt care transferred to [facility]. IV_(FLUIDS_AND/OR_MEDICATION), MEDICATION_IM, ORAL_MEDICATION, EKG, ORTHOSTATIC_VITAL_SIGNS Written by Medical [facility] on 2024-12-25
--- OUTSIDE RECORDS SUMMARY | 2025-03-11 20:49 | XMS_ITS | Encounter Summary ---
Author Organization [facility] Address [address] [place] [address] Phone Care Team Providers Care Tool Grinder Set Up Operator Gear Name Role Phone Truong Colon MD Primary Care Provider +1- [phone] Encounter Details Date Type Department Care Team (Late Contact Info) Description 08/12/2024 Documentation Only [facility] [address] [place] [address] [place] [address] [place] [address] Social History Tobacco Use Types Packs/Day [...] [facility] [address] [place] [address] Romero Jimenez MD [address] [place] [address] [place] [address] documented as of this encounter Visit Diagnoses Not on filedocumented in this encounter Care Teams Tool Grinder Set Up Operator Gear Relationship Specialty Start Date End Date Truong Colon MD [address] [place] [address] PCP - General Internal Medicine 03/06/23 documented as of this encounter
--- OUTSIDE RECORDS SUMMARY | 2025-03-11 20:49 | XMS_ITS | Encounter Summary ---
Author Organization [facility] Address [address] [place] [address] Phone Care Team Providers Care Rn Chemical Dependency Name Role Phone Truong Colon MD Primary Care Provider +1- [phone] Encounter Details Date Type Department Care Team (Late Contact Info) Description 05/27/2024 Documentation Only [facility] [address] [place] [address] Kylie Gabriel [address] [place] [address] Social History Tobacco Use Types [...] [facility] [address] [place] [address] Romero Jimenez MD [address] [place] [address] [place] [address] documented as of this encounter Visit Diagnoses Not on filedocumented in this encounter Care Teams Rn Chemical Dependency Relationship Specialty Start Date End Date Truong Colon MD [address] [place] [address] PCP - General Internal Medicine 03/06/23 documented as of this encounter
--- OUTSIDE RECORDS SUMMARY | 2025-03-11 20:49 | XMS_ITS | Encounter Summary ---
Author Organization [facility] Address [address] [place] [address] Phone Care Team Providers Care Monotype Keyboard Operator Name Role Phone Truong Colon MD Primary Care Provider +1- [phone] Encounter Details Date Type Department Care Team ([facility] Contact Info) Description 05/16/2024 Orders Only [facility] [address] [place] [address] Kylie Gabriel [address] [place] [address] Anemia in chronic kidney disease; [...] Visit [facility] [address] [place] [address] Romero Jiemnez MD [address] [place] [address] documented as of this encounter Visit Diagnoses Diagnosis Anemia in chronic kidney disease Stage 3b chronic kidney disease (HCC) Iron deficiency anemia, not otherwise specified documented in this encounter Care Teams Monotype Keyboard Operator Relationship Specialty Start Date End Date Truong Colon MD [address] [place] [address] PCP - General Internal Medicine 03/06/23 documented as of this encounter
--- OUTSIDE RECORDS SUMMARY | 2025-03-11 20:49 | XMS_ITS | Encounter Summary ---
Author Organization [facility] Address [address] [place] [address] Phone Care Team Providers Care Global Position System Technician Name Role Phone Truong Colon MD Primary Care Provider +1- [phone] Encounter Details Date Type Department Care Team ([facility] Contact Info) Description 12/26/2024 Orders Only [facility] [address] [place] [address] Kylie Gabriel [address] [place] [address] Anemia in chronic kidney disease; [...] Visit [facility] [address] [place] [address] Romero Jimenez MD [address] [place] [address] documented as of this encounter Visit Diagnoses Diagnosis Anemia in chronic kidney disease Stage 3b chronic kidney disease (HCC) Iron deficiency anemia, not otherwise specified documented in this encounter Care Teams Global Position System Technician Relationship Specialty Start Date End Date Truong Colon MD [address] [place] [address] PCP - General Internal Medicine 03/06/23 documented as of this encounter
--- OUTSIDE RECORDS SUMMARY | 2025-03-11 20:49 | XMS_ITS | Encounter Summary ---
Author Organization [facility] Address [address] [place] [address] Phone Care Team Providers Care Trekking Guide Name Role Phone Truong Colon MD Primary Care Provider +1- [phone] Encounter Details Date Type Department Care Team (Late Contact Info) Description 05/12/2021 Documentation Only [facility] [address] [place] [address] Eligio Meza MD [address] [place] [address] [place] [address] Social History Tobacco Use Types [...] [facility] [address] [place] [address] Romero Jimenez MD [address] [place] [address] [place] [address] documented as of this encounter Visit Diagnoses Not on filedocumented in this encounter Care Teams Trekking Guide Relationship Specialty Start Date End Date Truong Colon MD [address] [place] [address] PCP - General Internal Medicine 03/06/23 documented as of this encounter
--- OUTSIDE RECORDS SUMMARY | 2025-03-11 20:49 | XMS_ITS | Encounter Summary ---
Author Organization [facility] Address [address] [place] [address] Phone Care Team Providers Care Hospital Medical Biller Name Role Phone Truong Colon MD Primary Care Provider +1- [phone] Encounter Details Date Type Department Care Team ([facility] Contact Info) Description 02/20/2025 Orders Only [facility] [address] [place] [address] Kyile Gabriel [address] [place] [address] Anemia in chronic kidney disease; [...] [facility] [address] [place] [address] Romero Jimenez MD [address] [place] [address] documented as of this encounter Visit Diagnoses Diagnosis Anemia in chronic kidney disease Stage 3b chronic kidney disease (HCC) Iron deficiency anemia, not otherwise specified documented in this encounter Care Teams Hospital Medical Biller Relationship Specialty Start Date End Date Truong Colon MD [address] [place] [address] PCP - General Internal Medicine 03/06/23 documented as of this encounter
--- OUTSIDE RECORDS SUMMARY | 2025-03-11 20:50 | XMS_ITS | Clinical Summary ---
Author Organization [facility] Address [address] [place] [address] Phone Care Team Providers Care Gardening Supervisor Name Role Phone Truong Colon MD Primary Care Provider +1 [phone] Allergies Active Allergy Reactions Criticality Noted Date [...] left breast in female, estrogen receptor positive ([facility] V24, [facility] V28) 07/03/2023 Iron deficiency anemia 05/18/2022 Acquired hypothyroidism 03/28/2017 Gastroesophageal reflux disease without esophagi tis 03/28/2017 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 Surgical History Surgery Date Site/Laterality Comments LUMBAR DISC SURGERY PROCEDURE:LUMBAR DISC SURGERY Medical History Medical History Date Comments Malignant neoplasm of upper- outer quadrant of left female breast ([facility] V24, [facility] V28) DX:Malignant neoplasm of upp [...] [facility] [address] [place] [phone] Jennifer Ca MD [address] [place] [address] Health Maintenance Due Date Last [...] LAB CHEMISTRY METHOD 10/31/2024 11:08 AM EDT [facility] Comment:Calculation based on the Chronic Kidney Disease Epidemiology Collaboration (CKD-EPI) equation refit without adjustment for race. BUN/Creatinine Ratio 12.0 LAB CHEMISTRY METHOD 10/31/2024 11:08 AM EDT [facility] Calcium 8.9 8.5 - 10.5 mg/dL LAB CHEMISTRY METHOD 10/31/2024 11:08 AM EDT [facility] Blood Venous blood specimen / Unknown Venipuncture / Unknown 10/31/2024 7:20 AM EDT 10/31/2024 10:27 AM EDT us Ally Castañeda MD LAB BLOOD ORDERABLES Final Resul t [facility] [address] [place] [address], * DXA BONE DENSITY STUDY 1+ SITS AXIAL SKEL (10/07/2021 10:23 AM EDT) Anatomical Region Laterality Modality Bone Densitometr y 05/10/2021 11:5 1 AM EST Narrative 10/07/2021 4:32 PM EDT Clinical history: other osteoporosis Scans of the lumbar spine and hips were performed on a [employer] fan beam bone densitometer. Bone mineral density [...] spine and hips were performed on a [employer] beam bone densitometer. Bone mineral density measurements [...] Group ID:[id number] Type:Not on file Address: [address] [place] [address] Care Teams Gardening Supervisor Relationship Specialty Start Date End Date Truong Colon MD [address] [place] [address] [address] [place], [place] PCP - General 05/19/22
--- OUTSIDE RECORDS SUMMARY | 2025-03-11 20:50 | XMS_ITS | Encounter Summary ---
Author Organization [facility] [place] [address] Care Team Providers Care Pediatric Cardiologist Name Role Phone Truong Colon MD Primary Care Provider +1 [phone] Encounter Details Date Type Department Care Team (Late st Contact Info) Description 10/10/[address] [facility] [address] [facility] [place] [id number] Ally Castañeda MD [address] [place] [address] Malignant neoplasm of unspecified site of unspecified female breast ([facility]/HCC V24, [facility] V28); Hypothyroidism, unspecified; Vitamin [...] [facility] Hematology Oncology [address] [place] [phone] Jennifer Ca MD [address] [place] [phone] documented as of this encounter Procedures Procedure Name Priority Date/Time Associated Diagnosis Comments THYROID STIMULATING HORMONE WITH REFLEX TO FREE T4 AND FREE T3 Routine 10/10/2024 5:37 AM EDT Malignant neoplasm of unspecified site of unspecified female breast ([facility]/HCC V24, [facility]/HCC V28) Hypothyroidism, unspecified Vitamin D deficiency, unspecified Vitamin B12 deficiency anemia, unspecified Spinal stenosis, site unspecified Chronic kidney disease, stage 3 unspecified ([facility]/HCC V24, [facility]/HCC V28) VITAMIN D 25 HYDROXY Routine 10/10/2024 5:37 AM EDT Malignant neoplasm of unspecified site of unspecified female breast ([facility]/HCC V24, [facility]/HCC V28) Hypothyroidism, unspecified Vitamin [...] site of unspecified female breast ([facility]/HCC V24, [facility]/HCC V28) Hypothyroidism, unspecified Vitamin D deficiency, unspecified Vitamin B12 deficiency anemia, unspecified Spinal stenosis, site unspecified Chronic kidney disease, stage 3 unspecified ([facility]/HCC V24, [facility]/HCC V28) VITAMIN B12 Routine 10/10/2024 5:37 AM EDT Malignant neoplasm of unspecified site of unspecified female breast ([facility] V24, [facility] V28) Hypothyroidism, unspecified Vitamin D deficiency, unspecified Vitamin B12 deficiency anemia, unspecified Spinal stenosis, site unspecified Chronic kidney disease, stage 3 unspecified ([facility] V24, [facility] V28) COMPREHENSIVE METABOLIC PANEL Routine 10/10/2024 5:37 AM EDT Malignant neoplasm of unspecified site of unspecified female breast ([facility] V24, [facility] V28) Hypothyroidism, unspecified Vitamin D deficiency, unspecified Vitamin B12 deficiency anemia, unspecified Spinal stenosis, site unspecified Chronic kidney disease, stage 3 unspecified ([facility] V24, [facility] V28) documented in this encounter [...] t [facility] [address] [place] [address], [place] [phone] * Folate (10/10/2024 5:37 AM EDT) Folate 12.9 2.8 - 17.0 ng/ml LAB CHEMISTRY METHOD 10/10/2024 11:35 AM EDT [facility] Blood Venous blood specimen / Unknown Venipuncture / Unknown 10/10/2024 5:37 AM EDT 10/10/2024 9:30 AM EDT us Ally Castañeda MD LAB BLOOD ORDERABLES Final Resul t Performing Organization Address [facility]/ZIP Co de Phone Number [facility] [address] [place] [address], [place] [phone] * Vitamin B12 (10/10/2024 5:37 AM EDT) Vitamin B-12 371 250 - 900 pcg/mL LAB CHEMISTRY METHOD 10/10/2024 11:35 AM EDT [facility] Blood Venous blood specimen / Unknown Venipuncture / Unknown 10/10/2024 5:37 AM EDT 10/10/2024 9:30 AM EDT us Ally Castañeda MD LAB BLOOD ORDERABLES Final Resul t Performing Organization Address [facility] de Phone Number [facility] [address] [place] [address], * Thyroid stimulating hormone with reflex to free t4 and free t3 (10/10/2024 5:37 AM EDT) Pathologist [facility] TSH 2.96 0.40 - 4.00 mcIU/mL LAB CHEMISTRY METHOD 10/10/2024 1:01 PM EDT [facility] Blood Venous blood specimen / Unknown Venipuncture / Unknown 10/10/2024 5:37 AM EDT 10/10/2024 9:30 AM EDT us Ally Castañeda MD LAB BLOOD ORDERABLES Final Resul t Performing Organization Address [facility]/ZIP Co de Phone Number [facility] [address] [place] [address], [place] [phone] * (ABNORMAL) Comprehensive metabolic panel (10/10/2024 5:37 AM EDT) Sodium 130(L) 133 - 145 mmol/L LAB CHEMISTRY METHOD 10/10/2024 11:35 AM EDT [facility] Potassium 4.9 3.5 - 5.5 mmol/L LAB CHEMISTRY METHOD 10/10/2024 11:35 AM [facility] Chloride 97 96 - 110 mmol/L LAB CHEMISTRY METHOD 10/10/2024 11:35 AM [facility] CO2 28 21 - 32 mmol/L LAB CHEMISTRY METHOD 10/10/2024 11:35 AM [facility] Anion Gap 5 3 - 11 LAB CHEMISTRY METHOD 10/10/2024 11:35 AM [facility] Glucose 82 70 - 100 [...] t [facility] [address] [place] [address], [place] [phone] * (ABNORMAL) Complete blood count (10/10/2024 5:37 [...] t [facility] [address] [place] [address], documented in this encounter Visit Diagnoses Diagnosis Malignant neoplasm of unspecified site of unspecified female breast ([facility]/HCC V24, [facility]/HCC V28) Hypothyroidism, unspecified Vitamin D deficiency, unspecified Vitamin B12 deficiency anemia, unspecified Spinal stenosis, site unspecified Chronic kidney disease, stage 3 unspecified (CMS/HCC V24, [facility]/HCC V28) documented in this encounter Care Teams Pediatric Cardiologist Relationship Specialty Start Date End Date Truong Colon MD [address] [place] PCP - General 05/19/22 documented as of this encounter
--- OUTSIDE RECORDS SUMMARY | 2025-03-11 20:50 | XMS_ITS | Encounter Summary ---
Author Organization [facility] [place] [address] Care Team Providers Care Tray Worker Name Role Phone Truong Colon MD Primary Care Provider +1 [phone] Encounter Details Date Type Department Care Team (Late Contact Info) Description 10/22/2024 Lab Requisition [facility] [address] [facility] [place] [address] Ally Castañeda MD [address] [place], [place] [phone] Essential (primary) hypertension; Anemia, unspecified Social History [...] Visit [facility] Hematology Oncology [address] [place] [address] Jennifer Ca MD [address] [place] [address] documented as of this encounter [...] (10/22/2024 5:26 AM EDT) Pathologist [facility] Ferritin 283(H) 8 - 252 ng/mL LAB CHEMISTRY METHOD 10/22/2024 9:41 AM EDT [facility] Blood Venous blood specimen / Unknown Venipuncture / Unknown 10/22/2024 5:26 AM EDT 10/22/2024 8:36 AM EDT us Ally Castañeda MD LAB BLOOD ORDERABLES Final Resul t [facility] [address] [place] [address], * (ABNORMAL) Basic metabolic panel (10/22/2024 5:26 AM EDT) Pathologist [facility] Sodium 140 133 - 145 mmol/L [...] 23.3 LAB CHEMISTRY METHOD 10/22/2024 9:41 AM [facility] Calcium 9.0 8.5 - 10.5 mg/dL LAB CHEMISTRY METHOD 10/22/2024 9:41 AM [facility] Blood Venous blood specimen / Unknown Venipuncture / Unknown 10/22/2024 5:26 AM EDT 10/22/2024 8:36 AM EDT us Ally Castañeda MD LAB BLOOD ORDERABLES Final Resul t [facility] [address] [place] [address], * (ABNORMAL) Complete blood count (10/22/2024 5:26 AM EDT) WBC 5.7 4.8 - 10.8 K/mcL LAB HEMETOLOGY METHOD 10/22/2024 9:09 AM EDT [facility] RBC 3.20(L) 3.80 - 4.80 M/mcL LAB HEMETOLOGY METHOD 10/22/2024 9:09 AM [facility] Hemoglobin 8.6(L) 11.5 - 16.0 g/dL LAB HEMETOLOGY METHOD 10/22/2024 9:09 AM [facility] Hematocrit 28.7(L) 35.0 - 47.0 % LAB HEMETOLOGY METHOD 10/22/2024 9:09 AM [facility] MCV 90.8 79.0 - 98.0 FL LAB HEMETOLOGY METHOD 10/22/2024 9:09 AM [facility] MCH 27.2 27.0 - 32.0 pcg LAB HEMETOLOGY METHOD 10/22/2024 9:09 AM [facility] MCHC 30.0(L) 32.0 - 37.0 g/dL LAB HEMETOLOGY METHOD 10/22/2024 9:09 AM [facility] RDW 13.4 11.0 - 15.0 % LAB HEMETOLOGY METHOD 10/22/2024 9:09 AM [facility] Platelets 383 130 - 400 K/mcL LAB HEMETOLOGY METHOD 10/22/2024 9:09 AM [facility] MPV 10.0 7.0 - 11.0 FL LAB HEMETOLOGY METHOD 10/22/2024 9:09 AM [facility] NRBC 0.0 <1.0 % LAB HEMETOLOGY METHOD 10/22/2024 9:09 AM [facility] NRBC Absolute 0.00 <0.10 K/mcL LAB HEMETOLOGY METHOD 10/22/2024 9:09 AM [facility] Blood Venous blood specimen / Unknown Venipuncture / Unknown 10/22/2024 5:26 AM EDT 10/22/2024 8:36 AM EDT Ally Castañeda MD LAB BLOOD ORDERABLES Final Resul t [facility] [address] [place] [address], documented in this encounter Visit Diagnoses Diagnosis Essential (primary) hypertension Unspecified essential hypertension Anemia, unspecified documented in this encounter Care Teams Tray Worker Relationship Specialty Start Date End Date Truong Colon MD [address] [place] [address] Dr [address] [place], [place] PCP - General 05/19/22 documented as of this encounter
--- OUTSIDE RECORDS SUMMARY | 2025-03-11 20:50 | XMS_ITS | Encounter Summary ---
Author Organization [facility] Address [address] [place] [address] Phone Care Team Providers Care Vessel Slag Worker Name Role Phone Truong Colon MD Primary Care Provider +1- [phone] Encounter Details Date Type Department Care Team (Late Contact Info) Description 04/11/2022 Documentation Only [facility] [address] [place] [address] Kylie Gabriel [address] [place] [address] Social History Tobacco Use Types [...] [facility] [address] [place] [address] Romero Jimenez MD [address] [place] [address] [place] [address] documented as of this encounter Visit Diagnoses Not on filedocumented in this encounter Care Teams Vessel Slag Worker Relationship Specialty Start Date End Date Truong Colon MD [address] [place] [address] PCP - General Internal Medicine 03/06/23 documented as of this encounter
--- OUTSIDE RECORDS SUMMARY | 2025-03-11 20:50 | XMS_ITS | Encounter Summary ---
Author Organization [facility] Address [address] [place] [address] Phone Care Team Providers Care Setter Out Name Role Phone Truong Colon MD Primary Care Provider +1- [phone] Encounter Details Date Type Department Care Team (Late Contact Info) Description 05/04/2022 Documentation Only [facility] [address] [place] [address] Kylie Gabriel [address] [place], [...] [facility] [address] [place] [address] Romero Jimenez MD [address] [place] [address] [place] [address] documented as of this encounter Visit Diagnoses Not on filedocumented in this encounter Care Teams Setter Out Relationship Specialty Start Date End Date Truong Colon MD [address] [place] [address] PCP - General Internal Medicine 03/06/23 documented as of this encounter
--- OUTSIDE RECORDS SUMMARY | 2025-03-11 20:50 | XMS_ITS | Encounter Summary ---
Author Organization [facility] Address [address] [place] [address] Phone Care Team Providers Care Workshop Manager Name Role Phone Truong Colon MD Primary Care Provider +1- [phone] Encounter Details Date Type Department Care Team (Late Contact Info) Description 08/04/2024 Documentation Only [facility] [address] [place] [address] Kylie Gabriel [address] [place] [address] Social History Tobacco Use Types [...] Visit [facility] [address] [place] [address] Romero Jimenez MD [address] [place] [address] [place] [address] documented as of this encounter Visit Diagnoses Not on filedocumented in this encounter Care Teams Workshop Manager Relationship Specialty Start Date End Date Truong Colon MD [address] [place] [address] PCP - General Internal Medicine 03/06/23 documented as of this encounter
--- OUTSIDE RECORDS SUMMARY | 2025-03-11 20:50 | XMS_ITS | Encounter Summary ---
Author Organization [facility] Address [address] [place] [address] Phone Care Team Providers Care Xerox Machine Operator Name Role Phone Truong Colon MD Primary Care Provider +1- [phone] Encounter Details Date Type Department Care Team (Late Contact Info) Description 10/29/2023 Documentation Only [facility] [address] [place] [address] Kylie Gabriel [address] [place] [address] Social History Tobacco Use Types [...] [facility] [address] [place] [address] Romero Jimenez MD [address] [place] [address] [place] [address] documented as of this encounter Visit Diagnoses Not on filedocumented in this encounter Care Teams Xerox Machine Operator Relationship Specialty Start Date End Date Truong Colon MD [address] [place] [address] PCP - General Internal Medicine 03/06/23 documented as of this encounter
--- OUTSIDE RECORDS SUMMARY | 2025-03-11 20:50 | XMS_ITS ---
Author Organization [facility] Address [address] [place] [address] Care Team Providers Care Radar Engineering Teacher Name Role Phone Truong Colon MD Primary Care Provider +1- [phone] Active Problems Problem Noted Date Diagnosed Date [...]
--- OUTSIDE RECORDS SUMMARY | 2025-03-11 20:50 | XMS_ITS | Encounter Summary ---
Author Organization [facility] Address [address] [place] [address] Phone Care Team Providers Care Quality Rep Name Role Phone Truong Colon MD Primary Care Provider +1- [phone] Encounter Details Date Type Department Care Team ([facility] [address] Contact Info) Description 01/23/2025 Orders Only [facility] [address] [place] [address] Kylie Gabriel [address] [place] [address] Anemia in chronic kidney disease; [...] Care [facility] [address] [place] [address] Romero Jimenez MD [address] [place] [address] documented as of this encounter Visit Diagnoses Diagnosis Anemia in chronic kidney disease Stage 3b chronic kidney disease (HCC) Iron deficiency anemia, not otherwise specified documented in this encounter Care Teams Quality Rep Relationship Specialty Start Date End Date Truong Colon MD [address] [place] [address] PCP - General Internal Medicine 03/06/23 documented as of this encounter
--- OUTSIDE RECORDS SUMMARY | 2025-03-11 20:50 | XMS_ITS | Encounter Summary ---
Author Organization [facility] Address [address] [place] [address] Phone Care Team Providers Care Direct Support Professional Name Role Phone Truong Colon MD Primary Care Provider +1- [phone] Encounter Details Date Type Department Care Team (Late Contact Info) Description 01/31/2024 Documentation Only [facility] [address] [place] [address] Kylie Gabriel [address] [place] [address] Social History Tobacco Use Types [...] [facility] [address] [place] [address] Romero Jimenez MD [address] [place] [address] [place] [address] documented as of this encounter Visit Diagnoses Not on filedocumented in this encounter Care Teams Direct Support Professional Relationship Specialty Start Date End Date Truong Colon MD [address] [place] [address] PCP - General Internal Medicine 03/06/23 documented as of this encounter
--- OUTSIDE RECORDS SUMMARY | 2025-03-11 20:50 | XMS_ITS | Clinical Summary ---
Author Organization [facility] Address [address] [place] [address] Care Team Providers Care Live In Housekeeper Nanny Name Role Phone Truong Colon MD Primary Care Provider +1- [phone] Allergies Active Allergy Reactions Criticality Noted Date [...] age to complete this topic Care Teams Live In Housekeeper Nanny Relationship Specialty Start Date End Date Truong Colon MD [address] [place] [address] PCP - General Internal Medicine 05/19/22
--- OUTSIDE RECORDS SUMMARY | 2025-03-11 20:50 | XMS_ITS | Encounter Summary ---
Author Organization [facility] Address [address] [place] [address] Phone Care Team Providers Care Slab Puller Name Role Phone Truong Colon MD Primary Care Provider +1- [phone] Encounter Details Date Type Department Care Team ([facility] Contact Info) Description 09/05/2024 Orders Only [facility] [address] [place] [address] Kylie Gabriel [address] [place] [address] Anemia in chronic kidney disease; [...] Services Of [facility] [address] [place] [address] Romero Jimenez MD [address] [place] [address] documented as of this encounter Visit Diagnoses Diagnosis Anemia in chronic kidney disease Stage 3b chronic kidney disease (HCC) Iron deficiency anemia, not otherwise specified documented in this encounter Care Teams Slab Puller Relationship Specialty Start Date End Date Truong Colon MD [address] [place] [address] PCP - General Internal Medicine 03/06/23 documented as of this encounter
--- OUTSIDE RECORDS SUMMARY | 2025-03-11 20:50 | XMS_ITS | Encounter Summary ---
Author Organization [facility] Address [address] [place] [address] Phone Care Team Providers Care Re Recording Mixer Name Role Phone Truong Colon MD Primary Care Provider +1- [phone] Encounter Details Date Type Department Care Team ([facility] Contact Info) Description 10/03/2024 Orders Only [facility] [address] [place] [address] Kylie Gabriel [address] [place] [address] Anemia in chronic kidney [...] Visit [facility] [address] [place] [address] Romero Jimenez MD [address] [facility] [place] [address] documented as of this encounter Visit Diagnoses Diagnosis Anemia in chronic kidney disease Stage 3b chronic kidney disease (HCC) Iron deficiency anemia, not otherwise specified documented in this encounter Care Teams Re Recording Mixer Relationship Specialty Start Date End Date Truong Colon MD [address] [place] [address] PCP - General Internal Medicine 03/06/23 documented as of this encounter
--- OUTSIDE RECORDS SUMMARY | 2025-03-11 20:50 | XMS_ITS | Encounter Summary ---
Author Organization [facility] Address [address] [place] [address] Phone Care Team Providers Care Accuracy Expert Name Role Phone Truong Colon MD Primary Care Provider +1- [phone] Encounter Details Date Type Department Care Team (Late Contact Info) Description 04/04/2024 Documentation Only [facility] [address] [place] [address] Jasmin Dumont [address] [place] [address] Social History Tobacco Use Types Packs/Day [...] [facility] [address] [place] [address] Romero Jimenez MD [address] [place] [address] [place] [address] documented as of this encounter Visit Diagnoses Not on filedocumented in this encounter Care Teams Accuracy Expert Relationship Specialty Start Date End Date Truong Colon MD [address] [place] [address] PCP - General Internal Medicine 03/06/23 documented as of this encounter
--- OUTSIDE RECORDS SUMMARY | 2025-03-11 20:50 | XMS_ITS | Encounter Summary ---
Author Organization [facility] [place] [address] Care Team Providers Care Geotechnical Department Manager Name Role Phone Truong Colon MD Primary Care Provider Encounter Details Date Type Department Care Team (Late Contact Info) Description 10/30/[address] [facility] - Main Lab [address] [facility] [place] [address] Ally Castañeda MD [address] [place] [address] Spinal stenosis, site unspecified; Chronic [...] Description 11/04/2025 10:30 AM EDT Office Visit [facility] Hematology Oncology [address] [place] [address] Jennifer Ca MD [address] [place] [address] [phone] (work) documented as of this encounter Procedures [...] Resul t [facility] [address] [place] [address], * (ABNORMAL) Complete blood count (10/31/2024 7:20 [...] LAB HEMETOLOGY METHOD 10/31/2024 10:38 AM EDT [facility] RDW 15.1(H) 11.0 - 15.0 % LAB HEMETOLOGY METHOD 10/31/2024 10:38 AM EDT [facility] Platelets 239 130 - 400 K/mcL LAB HEMETOLOGY METHOD 10/31/2024 10:38 AM EDT [facility] MPV 10.6 7.0 - 11.0 FL LAB HEMETOLOGY METHOD 10/31/2024 10:38 AM EDT [facility] NRBC 0.0 <1.0 % LAB HEMETOLOGY METHOD 10/31/2024 10:38 AM EDT [facility] NRBC Absolute 0.00 <0.10 K/mcL LAB HEMETOLOGY METHOD 10/31/2024 10:38 AM EDT [facility] Blood Venous blood specimen / Unknown Venipuncture / Unknown 10/31/2024 7:20 AM EDT 10/31/2024 10:27 AM EDT us Ally Castañeda MD LAB BLOOD ORDERABLES Final Resul t [facility] [address] [place] [address], documented in this encounter Visit Diagnoses Diagnosis Spinal stenosis, site unspecified Chronic kidney disease, unspecified documented in this encounter Care Teams Geotechnical Department Manager Relationship Specialty Start Date End Date Trunog Colon MD [address] [place] PCP - General 05/19/22 documented as of this encounter
--- OUTSIDE RECORDS SUMMARY | 2025-03-11 20:50 | XMS_ITS | Encounter Summary ---
Author Organization [facility] Address [address] [place] [address] Phone Care Team Providers Care Flyer Maker Name Role Phone Truong Colon MD Primary Care Provider +1- [phone] Encounter Details Date Type Department Care Team (Late Contact Info) Description 10/26/2023 Documentation Only [facility] [address] [place] [address] Kylie Gabriel [address] [place], [place] [...] [facility] [address] [place] [address] Romero Jimenez MD [address] [place] [address] [place] [address] documented as of this encounter Visit Diagnoses Not on filedocumented in this encounter Care Teams Flyer Maker Relationship Specialty Start Date End Date Truong Colon MD [address] [place] [address] PCP - General Internal Medicine 03/06/23 documented as of this encounter
--- OUTSIDE RECORDS SUMMARY | 2025-03-11 20:50 | XMS_ITS | Encounter Summary ---
Author Organization [facility] Address [address] [place] [address] Phone Care Team Providers Care Telegraphic Typewriter Repairer Name Role Phone Truong Colon MD Primary Care Provider +1- [phone] Encounter Details Date Type Department Care Team (Late Contact Info) Description 04/24/2024 Documentation Only [facility] [address] [place] [address] Kylie Gabriel [address] [place] [address] Social History Tobacco Use Types [...] [facility] [address] [place] [address] Romero Jimenez MD [address] [place] [address] [place] [address] documented as of this encounter Visit Diagnoses Not on filedocumented in this encounter Care Teams Telegraphic Typewriter Repairer Relationship Specialty Start Date End Date Truong Colon MD [address] [place] [address] PCP - General Internal Medicine 03/06/23 documented as of this encounter
--- OUTSIDE RECORDS SUMMARY | 2025-03-11 20:50 | XMS_ITS | Encounter Summary ---
Author Organization [facility] [place] [address] Care Team Providers Care Superintendent System Operation Name Role Phone Truong Colon MD Primary Care Provider Encounter Details Date Type Department Care Team (Late Contact Info) Description 10/16/2024 Lab Requisition [facility] - Main Lab [address] [facility] [place] [address] Ally Castañeda MD [address] [place] [address] Spinal stenosis, site unspecified; Chronic [...] [facility] [address] [place] [address] Jennifer Ca MD [address] [place] [address] [phone] (work) documented as of this encounter Procedures [...] mmol/L LAB CHEMISTRY METHOD 10/17/2024 12:13 PM [facility] Potassium 5.6(H) 3.5 - 5.5 mmol/L LAB CHEMISTRY METHOD 10/17/2024 12:13 PM [facility] Chloride 103 96 - 110 mmol/L LAB CHEMISTRY METHOD 10/17/2024 12:13 PM [facility] CO2 28 21 - 32 mmol/L LAB CHEMISTRY METHOD 10/17/2024 12:13 PM [facility] Anion Gap 5 3 - 11 LAB CHEMISTRY METHOD 10/17/2024 12:13 PM [facility] Glucose 77 70 - 100 mg/dL LAB CHEMISTRY METHOD 10/17/2024 12:13 PM [facility] BUN 23 5 - 25 mg/dL LAB CHEMISTRY METHOD 10/17/2024 12:13 PM [facility] Creatinine 1.02 0.50 - 1.10 mg/dL LAB CHEMISTRY METHOD 10/17/2024 12:13 PM [facility] eGFR 55(L) >=60 mL/min/1. 73m2 LAB CHEMISTRY METHOD 10/17/2024 12:13 PM [facility] Comment:Calculation based on the Chronic Kidney Disease Epidemiology Collaboration (CKD-EPI) equation refit without adjustment for race. BUN/Creatinine Ratio 22.5 LAB CHEMISTRY METHOD 10/17/2024 12:13 PM T [facility] Calcium 8.9 8.5 - 10.5 mg/dL LAB CHEMISTRY METHOD 10/17/2024 12:13 PM [facility] Blood Venous blood specimen / Unknown Venipuncture / Unknown 10/17/2024 7:36 AM EDT 10/17/2024 11:30 AM EDT us Ally Castañeda MD LAB BLOOD ORDERABLES Final Resul t [facility] [address] [place] [address], [place] [phone] * (ABNORMAL) Complete blood count (10/17/2024 7:36 AM EDT) WBC 6.5 4.8 - 10.8 K/mcL LAB HEMETOLOGY METHOD 10/17/2024 12:00 PM [facility] RBC 3.40(L) 3.80 - 4.80 M/mcL LAB HEMETOLOGY METHOD 10/17/2024 12:00 PM [facility] Hemoglobin 9.2(L) 11.5 - 16.0 g/dL LAB HEMETOLOGY METHOD 10/17/2024 12:00 PM [facility] Hematocrit 30.9(L) 35.0 - 47.0 % LAB HEMETOLOGY METHOD 10/17/2024 12:00 PM [facility] MCV 91.2 79.0 - 98.0 FL LAB HEMETOLOGY METHOD 10/17/2024 12:00 PM [facility] MCH 27.1 27.0 - 32.0 pcg LAB HEMETOLOGY METHOD 10/17/2024 12:00 PM [facility] MCHC 29.8(L) 32.0 - 37.0 g/dL LAB HEMETOLOGY METHOD 10/17/2024 12:00 PM EDT [facility] RDW 13.2 11.0 - 15.0 % LAB HEMETOLOGY METHOD 10/17/2024 12:00 PM EDT [facility] Platelets 495(H) 130 - 400 K/mcL LAB HEMETOLOGY METHOD 10/17/2024 12:00 PM EDT [facility] MPV 10.0 7.0 - 11.0 FL LAB HEMETOLOGY METHOD 10/17/2024 12:00 PM EDT [facility] NRBC 0.0 <1.0 % LAB HEMETOLOGY METHOD 10/17/2024 12:00 PM EDT [facility] NRBC Absolute 0.00 <0.10 K/mcL LAB HEMETOLOGY METHOD 10/17/2024 12:00 PM EDT [facility] Blood Venous blood specimen / Unknown Venipuncture / Unknown 10/17/2024 7:36 AM EDT 10/17/2024 11:30 AM EDT us Ally Castañeda MD LAB BLOOD ORDERABLES Final Resul t [facility] [address] [place] [address], documented in this encounter Visit Diagnoses Diagnosis Spinal stenosis, site unspecified Chronic kidney disease, unspecified documented in this encounter Care Teams Superintendent System Operation Relationship Specialty Start Date End Date Truong Colon MD [address] [place] [address] Dr Eric Christian [place] PCP - General 05/19/22 documented as of this encounter
--- OUTSIDE RECORDS SUMMARY | 2025-03-11 20:50 | XMS_ITS | Encounter Summary ---
Author Organization [facility] Address [address] [place] [address] Phone Care Team Providers Care Nuclear Medicine Officer Name Role Phone Truong Colon MD Primary Care Provider +1- [phone] Encounter Details Date Type Department Care Team (Late Contact Info) Description 04/14/2022 Documentation Only [facility] [address] [place] [address] Eligio Meza MD [address] [place] [address] [place] [address] Social History Tobacco Use Types [...] [facility] [address] [place] [address] Romero Jimenez MD [address] [place] [address] [place] [address] documented as of this encounter Visit Diagnoses Not on filedocumented in this encounter Care Teams Nuclear Medicine Officer Relationship Specialty Start Date End Date Truong Colon MD [address] [place] [address] PCP - General Internal Medicine 03/06/23 documented as of this encounter
--- OUTSIDE RECORDS SUMMARY | 2025-03-11 20:50 | XMS_ITS | Encounter Summary ---
Author Organization [facility] [place], Address [address] [place] [address] Phone Care Team Providers Care Electrical Manufacturing Technician Name Role Phone Truong Colon MD Primary Care Provider +1- [phone] Encounter Details Date Type Department Care Team (Late Contact Info) Description 01/21/2024 Orders Only [facility] [address] [place] [address] Dimitris Suarez PA [address] [place] [address] [place] [address] Stage 3a chronic kidney disease [...] [facility] [address] [place] [address] Romero Jimenez MD [address] [place] [address] [place] [address] documented as of this encounter Visit Diagnoses Diagnosis Stage 3a chronic kidney disease (HCC) Essential hypertension Peripheral vascular disease (HCC) Peripheral vascular disease Renal osteodystrophy documented in this encounter Care Teams Electrical Manufacturing Technician Relationship Specialty Start Date End Date Truong Colon MD [address] [place] [address] PCP - General Internal Medicine 03/06/23 documented as of this encounter
--- OUTSIDE RECORDS SUMMARY | 2025-03-11 20:50 | XMS_ITS | Encounter Summary ---
Author Organization [facility] Address [address] [place] [address] Phone Care Team Providers Care Field Sales Executive Name Role Phone rTuong Colon MD Primary Care Provider +1- [phone] Encounter Details Date Type Department Care Team (Late Contact Info) Description 04/10/2024 Documentation Only [facility] [address] [place] [address] Kylie Gabriel [address] [place] [address] Social History Tobacco Use Types [...] [facility] [address] [place] [address] Romero Jimenez MD [address] [place] [address] [place] [address] documented as of this encounter Visit Diagnoses Not on filedocumented in this encounter Care Teams Field Sales Executive Relationship Specialty Start Date End Date Truong Colon MD [address] [place] [address] PCP - General Internal Medicine 03/06/23 documented as of this encounter
--- OUTSIDE RECORDS SUMMARY | 2025-03-11 20:50 | XMS_ITS | Patient Health Record ---
Author Organization [facility] Address [address] [place] [address] Care Team Providers Care Customer Engineer Name Role Phone Sundarmax Radha Primary Care Provider UnavailTimoteo Sneed Unavailable [phone] Allergies Allergen (clinical drug ingredient) Drug/Non Drug Allergy documented on EMR Reaction Allergy Type Onset Date Status Penicillin Unknown Drug Allergy Active Reason For Referral No Information Medications Medication SIG (Take, Route, Frequency, Duration) Notes Start Date End Date Status Aspir-81 81 MG Tablet Delayed Release 1 tablet Orally Once a day Active Omeprazole 20 MG Capsule Delayed Release 2 capsules Orally Once a day Active Levothyroxine Sodium 112 MCG Tablet 1 tablet Orally Once a day Active Calcitriol 0.5 MCG Capsule 1 capsule Ora lly Once a day Active Tamoxifen Citrate 20 MG Tablet 1 tablet Orally Once a day Active Lisinopril 5 MG Tablet 1 tablet Orally O nce a day Active Laxative Active Multi Vitamin/Minerals Tablet Orally Active traMADol HCl 50 MG Tablet Orally Active Social History Social History Additional Details Category Social Info Options Details Miscellaneous: Marital status: Occupation: retired Section Notes: Nonsmoker; no sig acohol Problems Problem Type SNOMED Code ICD Code Onset Dates Problem Status W/U Status Risk Notes Problem Screening for malignant neoplasm of colon (890874791) Encounter for screening for malignant neoplasm of colon (Z12.11) Active confirmed Problem Screening for malignant neoplasm of rectum (247966857) Encounter for screening for malignant neoplasm of rectum (Z12.12) Active confirmed Problem Gastroesophageal reflux disease (336221021) Gastroesophageal reflux disease, esophagitis presence not specified (K21.9) Active confirmed Problem Constipation (81594072) Constipation, unspecified constipation type (K59.00) Active confirmed Plan Of Treatment Future Test Test Name Order Date UPPER GI ENDOSCOPY 11/30/2015 COLONOSCOPY 11/30/2015 Insurance Providers Payer Name Payer Address Payer Phone Subscriber Number Group Number Insured Name Patient Relationship to Insured Coverage Start Date Coverage End Date [facility] [address] [place] [id number] NOE SALDIVAR Self - patient is the insured Medical (General) History Medical History History ICD Code Hypertension Kidney disease--mild renal insuffciency- -GFR of 40--Dr. Meza Denies AL,DM,CVA,Lung disease Neg. colonoscopy in 2004 exc ept for diverticulosis and internal hemorrhoids-- Neg. EGD in 2004--Dr. Bear Breast cancer on the left in 2013--lumpe ctomy and XRT Hypothyroidism GERD Surgical History Surgery Date(Month/Year) Cholecystectomy--Dr. Banks 2014 Bladder suspension Left lumpectomy for breast cancer in 4
--- OUTSIDE RECORDS SUMMARY | 2025-03-11 20:50 | XMS_ITS | Encounter Summary ---
Author Organization [facility] [place] [facility] Address [address] [place] [address] Phone Care Team Providers Care Or Scrub Tech Name Role Phone Truong Colon MD Primary Care Provider +1- [phone] Encounter Details Date Type Department Care Team (Late Contact Info) Description 10/26/2023 Documentation Only [facility] [address] [place] [address] Kylie Gabriel [address] [place] [address] Social History Tobacco Use Types [...] [facility] [address] [place] [address] Romero Jimenez MD [address] [place] [address] [place] [address] documented as of this encounter Visit Diagnoses Not on filedocumented in this encounter Care Teams Or Scrub Tech Relationship Specialty Start Date End Date Truong Colon MD [address] [place] [address] PCP - General Internal Medicine 03/06/23 documented as of this encounter
--- OUTSIDE RECORDS SUMMARY | 2025-03-11 20:50 | XMS_ITS | Encounter Summary ---
Author Organization [facility] Address [address] [place] [address] Phone Care Team Providers Care Computer Hardware Developer Name Role Phone Truong Colon MD Primary Care Provider +1- [phone] Encounter Details Date Type Department Care Team ([facility] Contact Info) Description 11/28/2024 Orders Only [facility] [address] [place] [address] Kylie Gabriel [address] [place] [address] Anemia in chronic kidney disease; [...] [facility] [address] [place] [address] Romero Jimenez MD [address] [place] [address] documented as of this encounter Visit Diagnoses Diagnosis Anemia in chronic kidney disease Stage 3b chronic kidney disease (HCC) Iron deficiency anemia, not otherwise specified documented in this encounter Care Teams Computer Hardware Developer Relationship Specialty Start Date End Date Truong Colon MD [address] [place] [address] PCP - General Internal Medicine 03/06/23 documented as of this encounter
--- OUTSIDE RECORDS SUMMARY | 2025-03-11 20:50 | XMS_ITS | Encounter Summary ---
Author Organization [facility] Address [address] [place] [address] Phone Care Team Providers Care Headlight Adjuster Name Role Phone Truong Colon MD Primary Care Provider +1- [phone] Encounter Details Date Type Department Care Team ([facility] Contact Info) Description 08/08/2024 Orders Only [facility] [address] [place] [address] Kylie Gabriel [address] [place] [address] Anemia in chronic kidney disease; [...] Care And Trans[facility] [address] [place] [address] Romero Jimenez MD [address] [facility] [place] [address] documented as of this encounter Visit Diagnoses Diagnosis Anemia in chronic kidney disease Stage 3b chronic kidney disease (HCC) Iron deficiency anemia, not otherwise specified documented in this encounter Care Teams Headlight Adjuster Relationship Specialty Start Date End Date Truong Colon MD [address] [place] [address] PCP - General Internal Medicine 03/06/23 documented as of this encounter
--- OUTSIDE RECORDS SUMMARY | 2025-03-11 20:50 | XMS_ITS | Encounter Summary ---
Author Organization [facility] Address [address] [place] [address] Phone Care Team Providers Care Weigher Production Name Role Phone Truong Colon MD Primary Care Provider +1- [phone] Encounter Details Date Type Department Care Team (Late Contact Info) Description 11/09/2021 Documentation Only [facility] [address] [place] [address] Dimitris Suarez PA [address] [place] [address] Social History Tobacco Use Types [...] [facility] [address] [place] [address] Romero Jimenez MD [address] [place] [address] documented as of this encounter Visit Diagnoses Not on filedocumented in this encounter Care Teams Weigher Production Relationship Specialty Start Date End Date Truong Colon MD [address] [place] [address] PCP - General Internal Medicine 03/06/23 documented as of this encounter
--- OUTSIDE RECORDS SUMMARY | 2025-03-11 20:50 | XMS_ITS | Encounter Summary ---
Author Organization [facility] Address [address] [place] [address] Phone Care Team Providers Care Soap Drier Operator Name Role Phone Truong Colon MD Primary Care Provider +1- [phone] Encounter Details Date Type Department Care Team (Late Contact Info) Description 12/21/2021 Documentation Only [facility] [address] [place] [address] Dimitris Suarez PA [address] [place] [address] Social History Tobacco Use Types [...] Visit [facility] [address] [place] [address] Romero Jimenez MD [address] [place] [address] documented as of this encounter Visit Diagnoses Not on filedocumented in this encounter Care Teams Soap Drier Operator Relationship Specialty Start Date End Date Truong Colon MD [address] [place] [address] PCP - General Internal Medicine 03/06/23 documented as of this encounter
--- OUTSIDE RECORDS SUMMARY | 2025-03-11 20:50 | XMS_ITS | Patient Health Record ---
Author Organization [facility] camilla Malverne Address [address] [place] [address] Care Team Providers Care Real Estate Investment Analyst Name Role Phone Isaiah DURAN, Ronald Primary Care Provider oBby Laguerre Unavailable [phone] Allergies Allergen (clinical drug ingredient) Drug/Non Drug [...] Problem Acquired hammer toe of right foot (0751185069220828 ) Other hammer toe(s) (acquired), right foot (M20.41) Active confirmed Response to treatment, Improvemen t Problem Acquired hammer toe of left foot (8618998714735782 ) Other hammer toe(s) (acquired), left foot (M20.42) Active confirmed Response to treatment, Improvemen t Problem Bilateral atherosclerosis of arteries of lower limbs (disorder) ([id number] 7) Atherosclerosis of [place] artery of both lower extremities, with unspecified presence of clinical manifestation (I70.203) Active confirmed Vital Signs Blood pressure diastolic 64 mm Hg 12/15/2024 Height 5 ft 9in in 12/15/2024 Blood pressure systolic 127 mm Hg 12/15/2024 Weight 230 lbs 12/15/2024 BMI 33.96 kg/m2 12/15/2024 Procedures Procedure Date Ordered Date Performed Result Body Sit e 40112-IRYDSFF NAIL, 6 OR MORE 05/05/2024 N/A 55205-YIJQ SKIN LESIONS, OVER 4 05/05/2024 N/A 54352-VYPTFXD NAIL, 6 OR MORE 07/31/2024 N/A 04169-GFPU SKIN LESIONS, OVER 4 07/31/2024 N/A 83704-QQYBVAB NAIL, 6 OR MORE 12/15/2024 N/A 64377-KNFE SKIN LESIONS, OVER 4 12/15/2024 N/A Encounters Encounter Location Date Provider Diagnosis [address] [address] 05/05/2024 Boby Chapman Atherosclerosis of [place] artery of both lower extremities, with unspecified presence of clinical manifestation I70.203 ; Tinea unguium B35.1 ; Pain in right toe(s) M79.674 ; Pain in left toe(s) M79.675 ; Other hammer toe(s) (acquired), right foot M20.41 and Other hammer toe(s) (acquired), left foot M20.[address] [address] 07/31/2024 Boby Chapman Atherosclerosis of [place] artery of both lower extremities, with unspecified presence of clinical manifestation I70.203 ; Tinea unguium B35.1 ; Pain in right toe(s) M79.674 ; Pain in left toe(s) M79.675 ; Other hammer toe(s) (acquired), right foot M20.41 and Other hammer toe(s) (acquired), left foot M20.[address] [address] 12/15/2024 Boby Chapman Atherosclerosis of [place] artery of both lower extremities, with unspecified presence of clinical manifestation I70.203 ; Tinea unguium B35.1 ; Pain in right toe(s) M79.674 and Pain in left toe(s) M79.[address] [address] 10/30/2024 Bboy Chapman Assessments Encounter Date Diagnosis (ICD Code) Assessment Notes Treatment Notes Treatment Clinical Notes Section Notes 05/05/2024 Tinea unguium (ICD-10 - B35.1) 05/05/2024 Atherosclerosis of [place] artery of both lower extremities, with unspecified presence of clinical manifestation (ICD-10 - I70.203) 07/31/2024 Tinea unguium (ICD-10 - B35.1) 07/31/2024 Atherosclerosis of [place] artery of both lower extremities, with unspecified presence of clinical manifestation (ICD-10 - I70.203) 12/15/2024 Tinea unguium (ICD-10 - B35.1) 12/15/2024 Atherosclerosis of [place] artery of both lower extremities, with unspecified [...] Treatment Pending Test Test Name Order Date 35167-YGVJCMC NAIL, 6 OR MORE 03/21/2017 21550-RLCELOY NAIL, 6 OR MORE 05/30/2017 48879-QTTNONA NAIL, 6 OR MORE 08/06/2017 70434-OEAZICM NAIL, 6 OR MORE 10/25/2017 73900-LJJCMVE NAIL, 6 OR MORE 03/20/2018 30521-DGLQZWR NAIL, 6 OR MORE 06/13/2018 36921-ITYKPBR NAIL, 6 OR MORE 01/07/2018 49097-RSAIAZF NAIL, 6 OR MORE 08/14/2018 25673-JKHFRQF NAIL, 6 OR MORE 10/17/2018 14280-SNGATMX NAIL, 6 OR MORE 01/16/2019 79083-YJPBULZ NAIL, 6 OR MORE 04/03/2019 19615-NWVBYBS NAIL, 6 OR MORE 06/16/2019 42294-TTFDSRZ NAIL, 6 OR MORE 08/27/2019 08749-ZAMQWYP NAIL, 6 OR MORE 12/18/2019 48845-OQPTEKE NAIL, 6 OR MORE 05/06/2020 56704-DWQKWGK NAIL, 6 OR MORE 07/15/2020 46098-OVOHGQI NAIL, 6 OR MORE 09/29/2020 54701-EYNICBS NAIL, 6 OR MORE 12/02/2020 63606-WKINRNT NAIL, 6 OR MORE 02/17/2021 70147-KYBLDMM NAIL, 6 OR MORE 06/16/2021 51160-FWQIVUP NAIL, 6 OR MORE 08/29/2021 86168-ZWFGEYU NAIL, 6 OR MORE 11/10/2021 22293-QBDYUXS NAIL, 6 OR MORE 01/19/2022 73593-HEJIXUK NAIL, 6 OR MORE 04/05/2022 20423-OKYMUPO NAIL, 6 OR MORE 06/15/2022 23486-JYFQRTW NAIL, 6 OR MORE 08/24/2022 94395-CBHOWDO NAIL, 6 OR MORE 11/16/2022 31583-OEAAFUS NAIL, 6 OR MORE 01/25/2023 86247-JLABOOF NAIL, 6 OR MORE 04/11/2023 67768-HZYWYEU NAIL, 6 OR MORE 06/27/2023 82534-YDAWCYG NAIL, 6 OR MORE 08/30/2023 89820-YVKDHTC NAIL, 6 OR MORE 11/08/2023 61941-KWLYGME NAIL, 6 OR MORE 01/24/2024 76463-PPWDKAM NAIL, 6 OR MORE 05/05/2024 25288-OTMSGMT NAIL, 6 OR MORE 07/31/2024 57117-DJVNMBQ NAIL, 6 OR MORE 12/15/2024 37358-IJLULES NAIL, 1-5 11/01/2016 95374-AGSYDVK NAIL, 1-5 01/03/2017 91989-YJCZTAK NAIL, 1-5 11/15/2015 11575-MKCTSYU NAIL, -01/24/2016 23531-POZCYMO NAIL, -04/05/2016 25114-VRHFJPY NAIL, -06/14/2016 25746-AAQAOES NAIL, 04-2708/23/2016 74811-Tljw Destruction, 05-0611/01/2016 45513-Ydne Destruction, 05-0601/03/2017 18220-Lshf Destruction, 05-0603/21/2017 35250-Obvy Destruction, 05-0605/30/2017 92411-Hslq Destruction, 05-0608/06/2017 85237-Ahtg Destruction, 05-0605/06/2020 91293-Ftrc Destruction, 05-0612/18/2019 07822-Ezay Destruction, 05-0608/27/2019 55919-Kbzz Destruction, 05-0606/16/2019 36182-Ijnl Destruction, 05-0604/03/2019 43475-Rcbs Destruction, 05-0601/16/2019 40378-Jplb Destruction, 05-0610/17/2018 23166-Uowu Destruction, 05-0608/14/2018 86466-Krpi Destruction, 05-0606/13/2018 10469-Achz Destruction, 05-0610/25/2017 97500-Avvu Destruction, 05-0601/07/2018 65347-Iixx Destruction, 05-0608/30/2023 13589-Rvge Destruction, 05-0606/27/2023 58710-Mpew Destruction, 05-0604/11/2023 84660-Fesu Destruction, 05-0601/25/2023 01345-Ztlm Destruction, 05-0611/16/2022 29209-Dpuq Destruction, 05-0608/24/2022 84041-Hovh Destruction, 05-0606/15/2022 88718-Jqkv Destruction, 05-0604/05/2022 36828-Kexw Destruction, 05-0601/19/2022 70756-Rjbe Destruction, 05-0606/16/2021 74228-Sezx Destruction, 05-0603/20/2018 81846-Dxgb Destruction, 05-0611/10/2021 95974-Jknv Destruction, 05-0608/29/2021 56293-Ozgv Destruction, 1-14 02/17/2021 98358-Qjzj Destruction, 1-14 12/02/2020 97493-Nmog Destruction, 1-14 09/29/2020 42316-Knlf Destruction, 1-14 07/15/2020 51056-Hafq Destruction, 1-14 01/24/2024 78494-Cnai Destruction, 1-14 11/08/2023 91181-Nsojebkd Plate 11/08/2023 58381-Mfxllagp Plate 09/29/2020 39224-Dckguuws Plate 12/02/2020 90221-Lplivogb Plate 02/17/2021 97125-Wwqlnbre Plate 06/16/2021 96054-Cdhwmvfv Plate 08/29/2021 44707-Bjwqkgno Plate 11/10/2021 63883-Ycjjavsc Plate 01/19/2022 36480-Jcnwhwds Plate 04/05/2022 45018-Fvrzpfen Plate 06/15/2022 99612-Ulxyuwia Plate 08/24/2022 20806-Hikzkxvt Plate 11/16/2022 15371-Jdqlwvjh Plate 01/25/2023 91995-Yxeeviuw Plate 04/11/2023 26513-Avuftcuu Plate 06/27/2023 45812-Lzhbjisw Plate 08/30/2023 88160-Gesojadw Plate 12/18/2019 01417-Xkzznbxb Plate 05/06/2020 05641-Lrymapgn Plate 07/15/2020 81439-Ainjigyo Plate 11/01/2016 05121-Rercejrz Plate Each Additional 12/2023 93983-Pqvmjhpm Plate Each Additional 09/2023 11061-Eottvzrv Plate Each Additional 48488-Uacdawbe Plate Each Additional 08/2022 75911-Noenshsn Plate Each Additional 00947-Trvisckv Plate Each Additional 07/2022 24864-Jeabmleo Plate Each Additional 07818-Bsqvjlex Plate Each Additional 65162-Pygrrvvh Plate Each Additional 13311-Sjvymivr Plate Each Additional 75192-ZIOT SKIN LESIONS, OVER 4 11/08/19 32202-XNLB SKIN LESIONS, OVER 4 01/24/20 66221-DDPN SKIN LESIONS, OVER 4 05/05/19 25319-EFGC SKIN LESIONS, OVER 4 12/16/19 58763-MQVP SKIN LESIONS, OVER 4 08/01/19 95512-IFYE SKIN LESIONS, OVER 4 06/16/19 89881-TKUC SKIN LESIONS, OVER 4 01/20/20 81562-JMOX SKIN LESIONS, OVER 4 11/11/19 14611-IJUL SKIN LESIONS, OVER 4 08/30/19 41782-PPQN SKIN LESIONS, OVER 4 02/18/20 43222-CAUB SKIN LESIONS, OVER 4 12/03/19 95487-TOTW SKIN LESIONS, OVER 4 09/30/19 65755-KKIN SKIN LESIONS, OVER 4 07/16/19 38492-HWSQ SKIN LESIONS, OVER 4 04/05/20 25456-IKBC SKIN LESIONS, OVER 4 06/15/19 03050-GOIH SKIN LESIONS, OVER 4 08/25/19 40844-ASWH SKIN LESIONS, OVER 4 11/17/19 74265-FIMP SKIN LESIONS, OVER 4 01/26/20 97326-SAKG SKIN LESIONS, OVER 4 04/11/20 39617-FGBD SKIN LESIONS, OVER 4 06/27/19 37713-PUQI SKIN LESIONS, OVER 4 08/30/19 54089-DVMK SKIN LESIONS, OVER 4 03/21/20 49765-YYJE SKIN LESIONS, OVER 4 01/04/20 17 59139-AESU SKIN LESIONS, OVER 4 10/26/19 18 52613-MTOT SKIN LESIONS, OVER 4 08/07/19 18 29721-DLPB SKIN LESIONS, OVER 4 05/30/19 18 76429-OLPB SKIN LESIONS, OVER 4 11/02/19 17 09373-ZPOV SKIN LESIONS, OVER 4 06/14/19 17 95597-YOUG SKIN LESIONS, OVER 4 04/05/20 16 79406-ALNJ SKIN LESIONS, OVER 4 08/24/19 11235-DZVG SKIN LESIONS, OVER 4 01/24/20 18071-SYMF SKIN LESIONS, OVER 4 11/15/19 12947-UEFT SKIN LESIONS, OVER 4 08/16/19 67397-GUPW SKIN LESIONS, OVER 4 05/06/19 38625-SHUI SKIN LESIONS, OVER 4 08/27/20 20 63439-ZLBI SKIN LESIONS, OVER 4 08/27/19 20 38060-JPDL SKIN LESIONS, OVER 4 04/03/20 19 70734-MITE SKIN LESIONS, OVER 4 06/16/19 20 91937-IVRW SKIN LESIONS, OVER 4 01/08/20 18 75132-OXSR SKIN LESIONS, OVER 4 06/13/19 19 91094-TBQG SKIN LESIONS, OVER 4 08/15/19 19 15673-LNQT SKIN LESIONS, OVER 4 03/20/20 18 68992-LXRH SKIN LESIONS, OVER 4 10/18/19 19 65962-JGZQ SKIN LESIONS, OVER 4 01/17/20 19 P0378-LVFADMUQ DYSTROPHIC NAILS ANY # F3459-LBYZENEQ DYSTROPHIC NAILS ANY # M6064-OUQCTMMA DYSTROPHIC NAILS ANY # O1220-WYUUIZPA DYSTROPHIC NAILS ANY # A4377-LAGOMNAC DYSTROPHIC NAILS ANY # P0479-DVDPGOFQ DYSTROPHIC NAILS ANY # K9083-NCOZILFR DYSTROPHIC NAILS ANY # V0943-ICXICZZC DYSTROPHIC NAILS ANY # Next Appt Details Provider Name:Boby Chapman , 03/30/2025 01:30:00 PM, [address] [facility], [place] [address], [place], [address], Insurance Providers Payer Name Payer Address Payer Phone Subscriber Number Group Number Insured Name Patient Relationship to Insured Coverage Start Date Coverage End Date [facility] [employer] Claims [address] [place] [id number] Jacinda Benavidez Self - patient is the insured Medical (General) History Medical History History ICD Code Anemia Anxiety Arthritis Back,Hip,and Knee pain Cataracts High blood pressure Liver disease Reflux Thyroid disorder Surgical History Surgery Date(Month/Year) gall bladder 12/11/2014 Unspecified Right Hand SX 03/13/17 Hospitalization History Reason Date(Month/Year) C- back pain 10/03/24
--- OUTSIDE RECORDS SUMMARY | 2025-03-11 20:50 | XMS_ITS | Encounter Summary ---
Author Organization [facility] Address [address] [place] [address] Phone Care Team Providers Care Inspector Assembly Name Role Phone Truong Colon MD Primary Care Provider +1- [phone] Encounter Details Date Type Department Care Team (Late Contact Info) Description 01/14/2024 Documentation Only [facility] [address] [address] [place] [address] [place] [address] Social History Tobacco Use Types Packs/Day [...] Visit [facility] [address] [address] Romero Jimenez MD [address] [place] [address] documented as of this encounter Visit Diagnoses Not on filedocumented in this encounter Care Teams Inspector Assembly Relationship Specialty Start Date End Date Truong Colon MD [address] [place] [address] PCP - General Internal Medicine 03/06/23 documented as of this encounter
--- OUTSIDE RECORDS SUMMARY | 2025-03-11 20:50 | XMS_ITS | Data Portability ---
Author Organization [facility] Address [address] [place] [address] Care Team Providers Care Sr Account Executive Name Role Phone HIM CCA OTHER ABRAN GALICIA Primary Care Provider Assessment Encounter Date Assessment Date Assessment LastModified by Organization Details LastModified Time 12/24/2024 12/24/2024 I have reviewed and agree with the assessment and plan as documented by the machine helper. I provided real-time medical direction for this [...] None recorded. Imaging electrocard iogram 2024 025 [facility], [address] [place] [address], [phone] 19:47:50 Medication Orders None recorded. Patient TargetsNo targets recorded. Patient InstructionsNo instructions recorded. Reason for Referral None Reported. Results Created Date Observation Date Name Description Value Unit Range Abnormal Flag Note LastModifiedBy Organization Detail LastModifiedTime 12/25/19 25 12/24/2024 michael beyergr am No observ ation record ed. [email or web address] [address], [address] 12/24/2024 22:02:22 Result Notes None recorded. Medical Equipment None Reported. Allergies Allergen ID Allergen Name Allergen Category Reaction Reaction Severity Criticality Documentation Date Start Date Code Code System Note Provider Name and Address Organization Details Recorded Time 48437 Product containin g penicilli n (product) medicatio n Not available Not available Not available 12/24/2024 07197 8001 SNOMED Not Available [facility] - production [...] [degF] 100 % 100 % 67 /min 980954. 608 g 57 /min 160/75 mm[Hg] 123/74 mm[Hg] Not Available [facility] - production 5 19:27:12 Social History None [...] ICD10 Code Diagnosis IMO Codes Diagnosis Note [id number] Antonia Harrison MD [facility] ED Medical [facility] [address] [place] [address] 12/24/2024 19:02:49 12/25/2024 21:09:24 Precordial pain [id number] R07.2 49764 Health Concerns Section Related Observation LastModified by Organization Detai ls LastModified Time None Recorded Concern Status LastModified by Organization Details LastModified Time None Recorded Advance Directives Directive None Recorded Payers Insurance Date Sequence Insurance Name Policy Number Policy Salazar Covered Member ID Salazar Member ID Guarantor Name 12/24/2024 1 [facility] - DOS ON OR AFTER 2022 - DUAL ELIGIBLE - LONG-TERM OPTIONS AND ONE CARE (MEDICARE REPLACEMENT/AD VANTAGE - HMO) Jacinda Blancas [id number] Jacinda Blancas Notes Date Note Type Note [...] This test has been updated by the machine helper, Lilia Chino at (12/24/2024 21:30:52). The changes are marked in bold. EKG test performed. Attachments uploaded as part of this test result can be found under Documents section. .................... .................... .................... .................... .................... .................... .................... . Poem Writer Note From Lilia Chino: Sent to a [...] warm, dry; 12 lead ECG: uploaded to [employer]; [facility] consulted and pt is advised she needs to be transported to ED for further eval. Pt agrees to transport, but was hesitant to go to ED without doctor's recommendation. 911 called; Allergies verified: PCN; 5 med rights verified; Baby ASA 324mg PO administered. 20g IV placed in left AC. Pt care transferred to [facility]. [facility] Lab Orders: electrocardiogram: Performed .................... .................... .................... .................... .................... .................... .................... . [facility] Consulted: Antonia Harrison .................... .................... .................... .................... .................... .................... .................... . Disposition: Fulfilled Antonia Harrison MD [address] [facility],[address] [facility], [place], [address], CEDRIC JORGENSEN 12/25/2024 17:47:31 OBGyn Episode No OBEpisode recorded.
--- OUTSIDE RECORDS SUMMARY | 2025-03-11 20:50 | XMS_ITS | Encounter Summary ---
Author Organization [facility] Address [address] [place] [address] Phone Care Team Providers Care Community Support Specialist Name Role Phone Truong Colon MD Primary Care Provider +1- [phone] Encounter Details Date Type Department Care Team (Late Contact Info) Description 04/10/2024 Documentation Only [facility] [address] [place] [address] Kylie Gabriel [address] [place] [address] Social History Tobacco Use Types [...] [facility] [address] [place] [address] Romero Jimenez MD [address] [place] [address] [place] [address] documented as of this encounter Visit Diagnoses Not on filedocumented in this encounter Care Teams Community Support Specialist Relationship Specialty Start Date End Date Truong Colon MD [address] [place] [address] PCP - General Internal Medicine 03/06/23 documented as of this encounter
--- OUTSIDE RECORDS SUMMARY | 2025-03-11 20:50 | XMS_ITS | Encounter Summary ---
Author Organization [facility] Address [address] [place] [address] Phone Care Team Providers Care Cigarette Filter Inspector Name Role Phone Truong Colon MD Primary Care Provider +1- [phone] Encounter Details Date Type Department Care Team (Late Contact Info) Description 01/23/2024 Documentation Only [facility], - [address] [place] [address] Jasmin Dumont [address] [place] [address] Social History Tobacco Use Types Packs/Day [...] Visit [facility], [address] [place] [address] Romero Jimenez MD [address] [facility] [place] [address] documented as of this encounter Visit Diagnoses Not on filedocumented in this encounter Care Teams Cigarette Filter Inspector Relationship Specialty Start Date End Date Truong Colon MD [address] [place] [address] PCP - General Internal Medicine 03/06/23 documented as of this encounter
--- OUTSIDE RECORDS SUMMARY | 2025-03-11 20:50 | XMS_ITS | Encounter Summary ---
Author Organization [facility] Address [address] [place] [address] Phone Care Team Providers Care Store Lead Name Role Phone Truong Colon MD Primary Care Provider +1- [phone] Encounter Details Date Type Department Care Team (Late Contact Info) Description 06/03/2024 Documentation Only [facility] [address] [place] [address] Kylie Gabriel [address] [place] [address] Social History Tobacco Use Types [...] [facility] [address] [place] [address] Romero Jimenez MD [address] [place] [address] [place] [address] documented as of this encounter Visit Diagnoses Not on filedocumented in this encounter Care Teams Store Lead Relationship Specialty Start Date End Date Truong Colon MD [address] [place] [address] PCP - General Internal Medicine 03/06/23 documented as of this encounter
--- OUTSIDE RECORDS SUMMARY | 2025-03-11 20:51 | XMS_ITS | Clinical Summary ---
Author Organization [facility] Address [address] [place] [address] [address] [place] [address] Phone Care Team Providers Care Employment Coach Name Role Phone Dimple Vergara MD Primary [...] file Medical Devices Not on file Insurance [facility] MEDICARE REPLACEMENT [facility] MEDICARE REPLACEMENT [facility] MEDICARE REPLACEMENT [facility] MEDICARE REPLACEMENT [facility] MEDICARE REPLACEMENT [facility] MEDICARE REPLACEMENT [facility] MEDICARE REPLACEMENT [facility] MEDICARE REPLACEMENT [facility] MEDICARE REPLACEMENT Care Teams Employment Coach Relationship Specialty Start Date End Date Dimple Vergara MD [address] [place] [address] PCP - General 11/13/13 Additional Source Comments The information contained in this document represents components of the legal health record. It is not the complete legal health record.[facility]
--- OUTSIDE RECORDS SUMMARY | 2025-03-11 20:51 | XMS_ITS | Continuity of Care Document ---
Author Name [facility] Address [address] [place] [address] Organization Unknown Address [address] [place] [address] Medications No known medications Problems No known problems
--- OUTSIDE RECORDS SUMMARY | 2025-03-11 20:51 | XMS_ITS ---
Author Organization [facility] [place], Address [address] [place] [address] [place] [address] Phone Care Team Providers Care Donor Technician Name Role Phone Truong Colon MD Primary Care Provider +1- [phone] Active Problems Problem Noted Date Diagnosed Date [...]
--- OUTSIDE RECORDS SUMMARY | 2025-03-11 20:51 | XMS_ITS | Encounter Summary ---
Author Organization [facility] Address [address] [place] [address] Phone Care Team Providers Care Telesales Agent Name Role Phone Truong Colon MD Primary Care Provider +1- [phone] Encounter Details Date Type Department Care Team (Late Contact Info) Description 07/02/2024 Documentation Only [facility] [address] [place] [address] [place] [address] [place] [address] Social History Tobacco Use Types Packs/Day [...] [facility] [address] [place] [address] Romero Jimenez MD [address] [place] [address] [place] [address] documented as of this encounter Visit Diagnoses Not on filedocumented in this encounter Care Teams Telesales Agent Relationship Specialty Start Date End Date Truong Colon MD [address] [place] [address] PCP - General Internal Medicine 03/06/23 documented as of this encounter
--- OUTSIDE RECORDS SUMMARY | 2025-03-11 20:51 | XMS_ITS | Encounter Summary ---
Author Organization [facility] [place] [address] Care Team Providers Care Accountant Bookkeeper Name Role Phone Truong Colon MD Primary Care Provider Encounter Details Date Type Department Care Team (Late Contact Info) Description 10/22/2024 Lab Requisition [facility] - Main Lab [address] [facility] [place] [address] Ally Castañeda MD [address] [place] [address] Spinal stenosis, site unspecified; Chronic [...] [facility] Hematology Oncology [address] [place] [address] Jennifer Ca MD [address] [place] [address] [phone] (work) documented as of this encounter Procedures [...] mmol/L LAB CHEMISTRY METHOD 10/23/2024 11:28 AM [facility] Potassium 4.6 3.5 - 5.5 mmol/L LAB CHEMISTRY METHOD 10/23/2024 11:28 AM [facility] Chloride 107 96 - 110 mmol/L LAB CHEMISTRY METHOD 10/23/2024 11:28 AM [facility] CO2 29 21 - 32 mmol/L LAB CHEMISTRY METHOD 10/23/2024 11:28 AM [facility] Anion Gap 4 3 - 11 LAB CHEMISTRY METHOD 10/23/2024 11:28 AM [facility] Glucose 65(L) 70 - 100 mg/dL LAB CHEMISTRY METHOD 10/23/2024 11:28 AM [facility] BUN 17 5 - 25 mg/dL LAB CHEMISTRY METHOD 10/23/2024 11:28 AM [facility] Creatinine 0.87 0.50 - 1.10 mg/dL LAB CHEMISTRY METHOD 10/23/2024 11:28 AM [facility] eGFR 67 >=60 mL/min/1. 73m2 LAB CHEMISTRY METHOD 10/23/2024 11:28 AM [facility] Comment:Calculation based on the Chronic Kidney Disease Epidemiology Collaboration (CKD-EPI) equation refit without adjustment for race. BUN/Creatinine Ratio 19.5 LAB CHEMISTRY METHOD 10/23/2024 11:28 AM EDT [facility] Calcium 8.7 8.5 - 10.5 mg/dL LAB CHEMISTRY METHOD 10/23/2024 11:28 AM [facility] Blood Venous blood specimen / Unknown Venipuncture / Unknown 10/23/2024 5:09 AM EDT 10/23/2024 10:13 AM EDT us Ally Castañeda MD LAB BLOOD ORDERABLES Final Resul t [facility] [address] [place] [address], * (ABNORMAL) Complete blood count (10/23/2024 5:09 AM EDT) WBC 4.8 4.8 - 10.8 K/mcL LAB HEMETOLOGY METHOD 10/23/2024 10:31 AM [facility] RBC 3.10(L) 3.80 - 4.80 M/mcL LAB HEMETOLOGY METHOD 10/23/2024 10:31 AM [facility] Hemoglobin 8.3(L) 11.5 - 16.0 g/dL LAB HEMETOLOGY METHOD 10/23/2024 10:31 AM [facility] Hematocrit 27.9(L) 35.0 - 47.0 % LAB HEMETOLOGY METHOD 10/23/2024 10:31 AM [facility] MCV 90.3 79.0 - 98.0 FL LAB HEMETOLOGY METHOD 10/23/2024 10:31 AM [facility] MCH 26.9(L) 27.0 - 32.0 pcg LAB HEMETOLOGY METHOD 10/23/2024 10:31 AM [facility] MCHC 29.7(L) 32.0 - 37.0 g/dL LAB HEMETOLOGY METHOD 10/23/2024 10:31 AM EDT [facility] RDW 13.7 11.0 - 15.0 % LAB HEMETOLOGY METHOD 10/23/2024 10:31 AM EDT [facility] Platelets 342 130 - 400 K/mcL LAB HEMETOLOGY METHOD 10/23/2024 10:31 AM EDT [facility] MPV 10.0 7.0 - 11.0 FL LAB HEMETOLOGY METHOD 10/23/2024 10:31 AM EDT [facility] NRBC 0.0 <1.0 % LAB HEMETOLOGY METHOD 10/23/2024 10:31 AM EDT [facility] NRBC Absolute 0.00 <0.10 K/mcL LAB HEMETOLOGY METHOD 10/23/2024 10:31 AM EDT [facility] Blood Venous blood specimen / Unknown Venipuncture / Unknown 10/23/2024 5:09 AM EDT 10/23/2024 10:13 AM EDT us Ally Castañeda MD LAB BLOOD ORDERABLES Final Resul t [facility] [address] [place] [address], documented in this encounter Visit Diagnoses Diagnosis Spinal stenosis, site unspecified Chronic kidney disease, unspecified documented in this encounter Care Teams Accountant Bookkeeper Relationship Specialty Start Date End Date Truong Colon MD [address] [place] [address] Dr [address] JAEL Christian PCP - General 05/19/22 documented as of this encounter
--- OUTSIDE RECORDS SUMMARY | 2025-03-11 20:51 | XMS_ITS | Encounter Summary ---
Author Organization [facility] Address [address] [place] [address] Phone Care Team Providers Care General Pediatrician Name Role Phone Truong Colon MD Primary Care Provider +1- [phone] Encounter Details Date Type Department Care Team ([facility] Contact Info) Description 07/11/2024 Orders Only [facility] [address] [place] [address] Kylie Gabriel [address] [place] [address] Anemia in chronic kidney [...] [facility] [address] [place] [address] Romero Jimenez MD [address] [place] [address] documented as of this encounter Visit Diagnoses Diagnosis Anemia in chronic kidney disease Stage 3b chronic kidney disease (HCC) Iron deficiency anemia, not otherwise specified documented in this encounter Care Teams General Pediatrician Relationship Specialty Start Date End Date Truong Colon MD [address] [place] [address] PCP - General Internal Medicine 03/06/23 documented as of this encounter
--- OUTSIDE RECORDS SUMMARY | 2025-03-11 20:51 | XMS_ITS | Encounter Summary ---
Author Organization [facility] Address [address] [place] [address] Phone Care Team Providers Care Documentation Nurse Name Role Phone Truong Colon MD Primary Care Provider +1- [phone] Encounter Details Date Type Department Care Team ([facility] Contact Info) Description 10/31/2024 Orders Only [facility] [address] [place] [address] Kylie Gabriel [address] [place] [address] Anemia in chronic kidney [...] [facility] [address] [place] [address] Romero Jimenez MD [address] [place] [address] documented as of this encounter Visit Diagnoses Diagnosis Anemia in chronic kidney disease Stage 3b chronic kidney disease (HCC) Iron deficiency anemia, not otherwise specified documented in this encounter Care Teams Documentation Nurse Relationship Specialty Start Date End Date Truong Colon MD [address] [place] [address] PCP - General Internal Medicine 03/06/23 documented as of this encounter
--- OUTSIDE RECORDS SUMMARY | 2025-03-11 20:51 | XMS_ITS | Encounter Summary ---
Author Organization [facility] [place] [address] Care Team Providers Care Radiochemical Technician Name Role Phone Truong Colon MD Primary Care Provider Encounter Details Date Type Department Care Team (Late Contact Info) Description 11/06/2024 Lab Requisition [facility] - Main Lab [address] [facility] [place] [address] Ally Castañeda MD [address] [place] [address] Spinal stenosis, site unspecified; Chronic [...] Description 11/04/2025 10:30 AM EDT Office Visit [facility] Hematology Oncology [address] [place] [address] Jennifer Ca MD [address] [place] [address] documented as of this encounter Visit Diagnoses Diagnosis Spinal stenosis, site unspecified Chronic kidney disease, unspecified documented in this encounter Care Teams Radiochemical Technician Relationship Specialty Start Date End Date Truong Colon MD [address] [place] [address] Dr [address] [place], [place] PCP - General 05/19/22 documented as of this encounter
--- OUTSIDE RECORDS SUMMARY | 2025-03-11 20:51 | XMS_ITS | Encounter Summary ---
Author Organization [facility] Address [address] [place] [address] Phone Care Team Providers Care Whitesmith Name Role Phone Truong Colon MD Primary Care Provider +1- [phone] Encounter Details Date Type Department Care Team ([facility] [address] Contact Info) Description 06/13/2024 Orders Only [facility] [address] [place] [address] Kylie Gabriel [address] [place] [address] Anemia in chronic kidney disease; [...] Visit [facility] [address] [place] [address] Romero Jimenez MD [address] [place] [address] documented as of this encounter Visit Diagnoses Diagnosis Anemia in chronic kidney disease Stage 3b chronic kidney disease (HCC) Iron deficiency anemia, not otherwise specified documented in this encounter Care Teams Whitesmith Relationship Specialty Start Date End Date Truong Colon MD [address] [place] [address] PCP - General Internal Medicine 03/06/23 documented as of this encounter
--- OUTSIDE RECORDS SUMMARY | 2025-03-11 20:51 | XMS_ITS | Encounter Summary ---
Author Organization [facility] Address [address] [place] [address] Phone Care Team Providers Care Entry Level Sales Representative Name Role Phone Truong Colon MD Primary Care Provider +1- [phone] Encounter Details Date Type Department Care Team (Late Contact Info) Description 07/31/2024 Documentation Only [facility] [address] [place] [address] Kylie Gabriel [address] [place] [address] Social History Tobacco Use Types [...] [facility] [address] [place] [address] Romero Jimenez MD [address] [place] [address] [place] [address] documented as of this encounter Visit Diagnoses Not on filedocumented in this encounter Care Teams Entry Level Sales Representative Relationship Specialty Start Date End Date Truong Colon MD [address] [place] [address] PCP - General Internal Medicine 03/06/23 documented as of this encounter
--- OUTSIDE RECORDS SUMMARY | 2025-03-11 20:51 | XMS_ITS | Clinical Summary ---
Author Organization [facility] [place], Address [address] [place] [address] [place] [address] Phone Care Team Providers Care Manager Life Insurance Name Role Phone Truong Colon MD Primary Care Provider +1- [phone] Allergies Active Allergy Reactions Criticality Noted Date [...] [facility] [address] [place] [address] Kylie Gabriel Anemia in chronic kidney disease; Stage 3b chronic kidney disease (HCC); Iron deficiency anemia, not otherwise specified 01/23/2025 Orders Only [facility] [address] [place] [address] HarveyKylie johnson Anemia in chronic kidney disease; Stage 3b chronic kidney disease (HCC); Iron deficiency anemia, not otherwise specified 12/26/2024 Orders Only [facility] [address] [place] [address] Harvey Kylie Anemia in chronic kidney disease; [...] Visit [facility] [place], [address] [place] [address] Romero Jimenez MD [address] [place] [id number] Health Maintenance Due Date Last Done Comments [...] [employer] SNP ([id number]) [place] [address] Care Teams Manager Life Insurance Relationship Specialty Start Date End Date Truong Colon MD [address] [place] [address] PCP - General Internal Medicine 03/06/23
--- OUTSIDE RECORDS SUMMARY | 2025-03-11 20:51 | XMS_ITS | Encounter Summary ---
Author Organization [facility] Address [address] [place] [address] Phone Care Team Providers Care Casting Machine Operator Name Role Phone Truong Colon MD Primary Care Provider +1- [phone] Encounter Details Date Type Department Care Team (Late Contact Info) Description 04/29/2024 Documentation Only [facility] [address] [place] [address] Britt Sol [address] [place] [address] Social History Tobacco Use Types [...] [facility] [address] [place] [address] Romero Jimenez MD [address] [place] [address] [place] [address] documented as of this encounter Visit Diagnoses Not on filedocumented in this encounter Care Teams Casting Machine Operator Relationship Specialty Start Date End Date Truong Colon MD [address] [place] [address] PCP - General Internal Medicine 03/06/23 documented as of this encounter
== END 2025-03-11 11:27 | disposition home or self-care (01) ==
LOC: HO.HGI 10:39
PROVIDERS: PCP Internal Medicine; Visit Provider Internal Medicine
DX: R13.10 Dysphagia, unspecified (principal); K59.04 Chronic idiopathic constipation; K21.9 Gastro-esophageal reflux disease without esophagitis
CPT/HCPCS: 99214; G2211

== ENCOUNTER → 2025-03-11 10:38 | Outpatient (BNVA) | payer OTHER, SELFPAY | PROVIDERS: PCP Internal Medicine; Visit Provider Internal Medicine | DX: K59.04 Chronic idiopathic constipation (principal); R13.10 Dysphagia, unspecified; K21.9 Gastro-esophageal reflux disease without esophagitis | CPT/HCPCS: 99212 ==